=== PATIENT | female | born 1955 | race Caucasian/White ===

== ENCOUNTER 2021-01-30 15:33 | Inpatient (IN) | payer MEDICARE, OTHER, SELFPAY ==
[2021-01-30 15:44] VITALS: BP 171/86; PULSE 79; RESP 16; TEMP 36.9; O2SAT 97; BMI 26.1
--- NOTE | 2021-01-30 16:53 | HP.PCM_ITS ---
Problem List (1) Debility Status: Acute (2) Diabetic foot ulcer Status: Chronic (3) Cellulitis of left foot Status: Acute (4) Osteomyelitis of left foot Status: Acute (5) Diabetes mellitus Status: Chronic (6) Brain tumor (benign) Status: Chronic (7) Chronic diarrhea Status: Chronic (8) Epilepsy Status: Chronic (9) Mitral valve prolapse Status: Chronic (10) Diabetic neuropathy Status: Chronic (11) Osteoarthritis of cervical and lumbar spine Status: Chronic (12) Gastroesophageal reflux disease Status: Chronic (13) Asthma Status: Chronic History of Present Illness Date of Admission: 01/30/21 Chief Complaint: Here for rehabilitation, strengthening, wound care, prior to discharge home with . 01/23/2021 The patient is a 65 year old Female with below past medical history admitted to [place], [place]. Left foot wound, left lower extremity swelling, left foot dorsal ulcer. Cellulitis of left lower extremity with diabetic foot ulcer. IV antibiotics started, WBC 28.7. IV antibiotics for sepsis, cultures pending. Imipenem for diabetic foot ulcer infection. 01/24/2021 Imipenem, add Linezolid for MRSA coverage. Stop tramadol due to risk of serotonin syndrome. 01/25/2021 MRI left foot showed osteomyelitis. 01/26/2021 Podiatry performed left 2nd, 3rd toe amputation. Wound VAC applied. Antibiotics per Infectious Disease. 01/30/2021 Admit to TCU with debility, here for rehabilitation, strengthening, wound care, prior to discharge home with . Past Medical History Past Medical History (Chronic Problems): Chronic Problems Diabetic foot ulcer (Chronic) Diabetes mellitus (Chronic) Brain tumor (benign) (Chronic) Chronic diarrhea (Chronic) Epilepsy (Chronic) Mitral valve prolapse (Chronic) Diabetic neuropathy (Chronic) 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) Gastroesophageal reflux disease (Chronic) Tubal ligation status (Chronic) History of pneumonia (Chronic) Obesity (Chronic) Migraine (Chronic) Disc degeneration (Chronic) Asthma (Chronic) Home Medications: Ambulatory Orders Medication Instructions Recorded Albuterol IH (ProAir) [Proair Hfa 1 puff INHALATION Q4H PRN PRN 01/30/21 (SP)Vent Pts] Budesonide/Formoterol Fumarate 2 puff IH BID 01/30/21 [Budesonide-Formoterol 160-4.5] Ciprofloxacin [Cipro] 500 mg PO BID 01/30/21 Doxycycline 100 mg PO BID 01/30/21 Gabapentin 300 mg PO BID 01/30/21 Gabapentin [Neurontin] 600 mg PO QHS 01/30/21 Guaifenesin [Mucinex] 1,200 mg PO BID 01/30/21 Insulin NPH Human Isophane 100 units SC DAILY 01/30/21 [Humulin N Kwikpen] Lactobacillus Acidophilus 1 each PO DAILY 01/30/21 [Acidophilus] Lansoprazole [Prevacid] 15 mg PO BID 01/30/21 Lansoprazole [Prevacid] 30 mg PO DAILY 01/30/21 Loperamide HCl [Imodium A-D] 6 mg PO TID 01/30/21 Ondansetron HCl [Zofran] 4 mg PO Q6H PRN PRN 01/30/21 Tramadol HCl [Ultram] 50 mg PO Q6H PRN PRN 01/30/21 Surgical History: appendectomy, - - Left 2nd, 3rd toe amputations. 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 Lives: Spouse/ Significant Other Smoking Status: Never smoker Tobacco Use: Non-smoker Alcohol: None Drugs: None - *Family History Maternal History Items: No pertinent history Paternal History Items: No pertinent history Review of Systems Constitutional: Denies: Chills, Fever, Weight Change HEENT: Denies: Head Aches, Sinus Congestion, Sinus Drainage Cardiovascular: Denies: Chest Pain, Palpitations Respiratory: Denies: Cough, Shortness of breath at rest, Sputum production Gastrointestinal: Denies: Abdominal Pain, Nausea, Vomiting Genitourinary: Denies: Dysuria Musculoskeletal: Denies: Joint Pain, Joint Tenderness Skin: Denies: Rash, Wounds Neurological: Denies: Numbness, Tingling, Focal weakness Psychiatric: Denies: Anxiety, Depression, Homicidal Ideations, Suicidal Ideations Hematologic/ Lymphatic: Denies: Easy Bruising, Easy Bleeding VTE Information - Inpt Only VTE Present on Admission: No VTE Mechan Device Prophylaxis: Knee High TAVIA Hose VTE Pharm Prophylaxis ordered?: Yes Patient Problems: Active and Suspected Problems Debility (Acute) Cellulitis of left foot (Acute) Osteomyelitis of left foot (Acute) - Physical Exam Vitals/I&O's: Vital Signs Temp Pulse Resp BP Pulse Ox 98.5 F 79 16 171/86 H 97 04/03/21 15:44 01/30/21 15:44 01/30/21 15:44 01/30/21 15:44 01/30/21 15:44 Oxygen Delivery Method Room Air Weight: 68.946 kg Body Mass Index (BMI) 26.1 General: Alert, Oriented x3, Cooperative HEENT: Atraumatic, PERRLA, EOMI, Normocephalic Neck: Supple, No JVD, Negative Carotid Bruits Lungs: Clear to auscultation, Normal air movement Cardiovascular: Regular rate, No murmurs Abdomen: Bowel Sounds Present, Soft, Non Tender Extremities: No edema, Capillary Refill Less than 3 Seconds, - - Left lower extremity dressed. Skin: No rashes, No breakdown Musculoskeletal: No Tenderness to Palpation of Joints or Extremities Neurological: Cranial nerves II-XII grossly intact Psych/Mental Status: Normal Affect, Appropriate Current Medications Albuterol Sulfate (Albuterol Ih 8.5 Gm (Proair) Inhaler (200 Puffs)) 1 puff INHALATION Q4H PRN PRN PRN Reason: SHORTNESS OF BREATH Calamine/Phenol (Menthol/Lanolin/Calamine/Znox 113 Gm Tube) 1 applic TOPICAL BID [facility]; Protocol Ciprofloxacin HCl (Ciprofloxacin 500 Mg Tablet) 500 mg PO BID [facility] Stop: 02/04/21 18:01 Doxycycline Monohydrate (Doxycycline 100 Mg Capsule) 100 mg PO BID [facility] Stop: 02/13/21 18:01 Gabapentin (Gabapentin 300 Mg Capsule) 300 mg PO BID [facility] Gabapentin (Gabapentin 600 Mg Tablet) 600 mg PO QHS [facility] Guaifenesin (Guaifenesin 600 Mg Tablet) 1,200 mg PO BID [facility] Insulin Human NPH (Insulin Nph Human 100 Units/Ml Pen) 100 units SC DAILY [facility] Non-Formulary Medication (Budesonide/Formoterol Fumarate [Budesonide-Formoterol 160-4.5]) 2 puff IH BID [facility] Non-Formulary Medication (Lansoprazole) 15 mg PO BID [facility] Non-Formulary Medication (Lansoprazole) 30 mg PO DAILY [facility] Non-Formulary Medication (Loperamide Hcl [Imodium A-D]) 6 mg PO TID [facility] Non-Formulary Medication (Ondansetron Hcl [Zofran]) 4 mg PO Q6H PRN PRN PRN Reason: NAUSEA Non-Formulary Medication (Lactobacillus Acidophilus [Acidophilus]) 1 each PO DAILY [facility] Stop: 02/15/21 06:01 Nystatin (Nystatin Powder 15gm Bottle) 1 applic TOPICAL TID [facility]; Protocol Tramadol HCl (Tramadol 50 Mg Tablet) 50 mg PO Q6H PRN PRN PRN Reason: Pain Score 1-10 Tuberculin PPD (Tuberculin,Purif.Prot.Deriv. 50 Tu/Ml Vial) 5 tu ID [id number] ONE Stop: 01/31/21 10:01 Tuberculin PPD (Tuberculin,Purif.Prot.Deriv. 50 Tu/Ml Vial) 5 tu ID X1 ONE Stop: 02/07/21 10:01 Assessment/Plan All Active Problems Debility (Acute) Cellulitis of left foot (Acute) Osteomyelitis of left foot (Acute) 65 year old female with below past medical history hospitalized for left diabetic foot infection, complicated by osteomyelitis requiring left 2nd, 3rd toe amputation 01/16/2021, wound VAC, admitted to TCU with debility, here for rehabilitation, strengthening, prior to discharge home with . * Debility - PT/OT. * Pain - Tylenol 1000MG Q6H PRN pain (1-3), Tramadol 50MG Q6H PRN pain (4-10). * Bowel - Loperamide 6MG TID for chronic diarrhea. * Adult Immunization - Administer Prevnar 13, Pneumovax 23, Fluzone, COVID19 vaccine as appropriate. * DVT prophylaxis - Lovenox 40MG SC daily. * Asthma - Advair 232-14 2 puffs BID, Proair 1 puff Q4H PRN. * Left foot osteomyelitis - Cipro 500MG BID thru 02/04/2021, Doxycycline 100MG BID thru 02/13/2021. * Diabetic neuropathy - Gabapentin 300MG BID, 600MG QHS. * Congestion - Mucinex 1200MG BID. * Diabetes Mellitus II - NPH 100 units daily, monitor blood sugar, add coverage as needed. * GI prophylaxis - Lactobacillus 1 tablet daily. * GERD - Pantoprazole 20MG BID. * Skin irritation - Calmoseptine topical BID. * Tinea Corporis - Nystatin topical TID. * Nausea - Zofran 4MG Q6H PRN.
[2021-01-30 16:55] LABS: Bedside Glucose 111 mg/dL (70-110)
[2021-01-30] MEDS: Menthol/Lanolin/Calamine/Znox 113 GM Tube 1 APPLIC TOPICAL (18:30)
[2021-01-30] MEDS: Ciprofloxacin 500 MG Tablet PO (18:31)
[2021-01-30] MEDS: Fluticasone/Salmeterol 232-14 Inhaler 1 PUFF INHALATION (18:31)
[2021-01-30] MEDS: Doxycycline 100 MG CAPSULE PO (18:31)
[2021-01-30] MEDS: Pantoprazole Sodium 40 MG Tablet PO (18:32)
[2021-01-30] MEDS: guaiFENesin 600 MG Tablet 1200 MG PO (18:32)
[2021-01-30] MEDS: Gabapentin 300 MG Capsule PO (18:32)
[2021-01-30] MEDS: Loperamide 2 MG Capsule 4 MG PO (21:56)
[2021-01-30] MEDS: Gabapentin 600 MG Tablet PO (21:57)
[2021-01-30 22:25] LABS: Bedside Glucose 189 mg/dL (70-110)
[2021-01-30] MEDS: Nystatin Powder 15gm Bottle 1 APPLIC TOPICAL (22:54)
[2021-01-31 05:00] VITALS: BP 157/77; PULSE 67; RESP 12; TEMP 36; O2SAT 98
[2021-01-31 05:53] LABS: Absolute Lymphocyte Count 2.83 X10^3/uL (0.83-4.51); Absolute Neutrophil Count 7.2 X10^3/uL (2.0-7.7); Basophil# 0.06 X10^3/uL; Basophil% 0.5 % (0-1); Eosinophils% 3.5 % (0-5); Hematocrit 29.2 % (37-47); Hemoglobin 9.4 g/dL (12.0-15.0); Lymphocyte # 2.83 X10^3/ul (4.0); Lymphocyte % 24.7 % (19-41); Mean Corp Hgb Conc 32.2 g/dL (32-36); Mean Corpuscular Hgb 30.9 pg (27.0-32.0); Mean Corpuscular Volume 96.1 fL (81-99); NRBC Flagged by Analyzer 0 % (0-5); Neutrophil # 7.23 X10^3/uL (2.7-7.7); Neutrophil % 63.1 % (47-70); Platelet Count 376 K/mm3 (150-450); RBC Distribution Width CV 12.3 % (11.6-14.6); RBC Distribution Width SD 42.6 fl (35.1-43.9); Red Blood Count 3.04 M/mm3 (4.2-5.4); White Blood Count 11.5 K/mm3 (4.4-11.0)
[2021-01-31] MEDS: Loperamide 2 MG Capsule 4 MG PO ×4 (06:20→21:06)
[2021-01-31 06:21] LABS: Anion Gap 3 (5-15); BUN 9 mg/dL (7-18); BUN/Creat Ratio 15.1 RATIO (10-20); Chloride 103 mmol/L (98-107); EST Glomerular Filtration Rate 107 mL/min (>60); Est Glom Filt Rate - Afr Amer 130 mL/min (>60); Glucose 141 mg/dL (74-106); Potassium 4.2 mmol/L (3.5-5.1); Sodium Level 136 mmol/L (136-145)
[2021-01-31] MEDS: Doxycycline 100 MG CAPSULE PO ×2 (06:23→21:06)
[2021-01-31] MEDS: Ciprofloxacin 500 MG Tablet PO ×2 (06:24→17:40)
[2021-01-31] MEDS: Pantoprazole Sodium 40 MG Tablet PO ×2 (06:24→17:41)
[2021-01-31] MEDS: Gabapentin 300 MG Capsule PO ×2 (06:24→17:46)
[2021-01-31] MEDS: Menthol/Lanolin/Calamine/Znox 113 GM Tube 1 APPLIC TOPICAL ×2 (06:25→17:42)
[2021-01-31] MEDS: Nystatin Powder 15gm Bottle 1 APPLIC TOPICAL ×3 (06:25→21:07)
[2021-01-31 06:26] LABS: Bedside Glucose 146 mg/dL (70-110)
[2021-01-31] MEDS: guaiFENesin 600 MG Tablet 1200 MG PO ×2 (06:27→17:40)
[2021-01-31] MEDS: Fluticasone/Salmeterol 232-14 Inhaler 1 PUFF INHALATION ×2 (06:28→17:42)
[2021-01-31 08:51] VITALS: PULSE 68; O2SAT 96
[2021-01-31] MEDS: Tuberculin,Purif.prot.deriv. 50 TU/ML Vial 5 ML ID (09:21)
--- NOTE | 2021-01-31 10:03 | NURSING ---
Nip Wrapper called and stated she tried to put a new order for merlyn in but there was an alert that kept flagging in the system stating there was an interaction with Doxycycline. This nurse called the pharmacist and pharmacist stated that it was ok to prescribe both as long as they are timed a certain way, that the merlyn will bind to the doxycycline and render it useless unless taken at separate times but it was ok for merlyn order. RN updated and order for merlyn put in for foot wound. Pharmacist said she would time the medications accordingly.
[2021-01-31 11:01] LABS: Bedside Glucose 236 mg/dL (70-110)
[2021-01-31 14:48] VITALS: BP 115/61; PULSE 66; RESP 16; TEMP 37; O2SAT 96
[2021-01-31 16:41] LABS: Bedside Glucose 253 mg/dL (70-110)
[2021-01-31] MEDS: Juven (unflavored) Packet 1 PACKET PO (17:39)
[2021-01-31] MEDS: Gabapentin 600 MG Tablet PO (21:06)
[2021-01-31 21:20] LABS: Bedside Glucose 221 mg/dL (70-110)
[2021-02-01 05:00] VITALS: BP 141/61; PULSE 70; RESP 16; TEMP 36.9; O2SAT 97
[2021-02-01] MEDS: Fluticasone/Salmeterol 232-14 Inhaler 1 PUFF INHALATION ×2 (06:23→17:28)
[2021-02-01] MEDS: Loperamide 2 MG Capsule 4 MG PO ×4 (06:23→20:31)
[2021-02-01] MEDS: Pantoprazole Sodium 40 MG Tablet PO ×2 (06:23→17:27)
[2021-02-01] MEDS: Ciprofloxacin 500 MG Tablet PO ×2 (06:23→17:26)
[2021-02-01] MEDS: guaiFENesin 600 MG Tablet 1200 MG PO ×2 (06:23→17:26)
[2021-02-01] MEDS: Doxycycline 100 MG CAPSULE PO (06:23)
[2021-02-01] MEDS: Gabapentin 300 MG Capsule PO ×2 (06:27→17:27)
[2021-02-01] MEDS: Menthol/Lanolin/Calamine/Znox 113 GM Tube 1 APPLIC TOPICAL ×2 (06:28→17:37)
[2021-02-01] MEDS: Nystatin Powder 15gm Bottle 1 APPLIC TOPICAL ×3 (06:28→20:31)
[2021-02-01 06:31] LABS: Bedside Glucose 206 mg/dL (70-110)
[2021-02-01] MEDS: Juven (unflavored) Packet 1 PACKET PO ×2 (08:27→17:25)
[2021-02-01] MEDS: Iron Polysaccharide Complex 150 MG CAPSULE PO (08:27)
[2021-02-01 11:15] LABS: Bedside Glucose 219 mg/dL (70-110)
--- NOTE | 2021-02-01 11:30 | NURSING ---
WANDARN/WOUND NURSE IN TO CHANGE PT DRESSING TO FOOT. SEE NURSING NOTE.
--- NOTE | 2021-02-01 12:24 | NURSING ---
wound photo: left plantar foot
--- NOTE | 2021-02-01 12:25 | NURSING ---
wound photo: left 2nd and 3rd toe amputation site
--- NOTE | 2021-02-01 14:02 | NURSING ---
Wound VAC was removed and placed on hold until foot is assessed by podiatry. tissues not healthy appearing. there is some purulence noted from the ball of the left foot and an areas of fluctuance to the plantar midfoot with moderate redness noted. There is some maceration noted under the left 4th and 5th toes. patient may need repeat MRI to assess for possible abscess to the midfoot. Orders received for Dakins moistened gauze daily to the amputation site until assessed by podiatry. pt denies further needs at this time. see wound photos.
--- NOTE | 2021-02-01 14:12 | NURSING ---
DR Iqbal and Dr Finn notified of consult orders d/t lt foot infection.
[2021-02-01 14:19] VITALS: BP 141/65; PULSE 67; RESP 16; TEMP 36.3; O2SAT 95
--- NOTE | 2021-02-01 16:20 | RAD_ITS ---
STUDY: X-RAY - LEFT FOOT CLINICAL: Female, 65 years old. infection TECHNIQUE: 3 view(s) of the foot. COMPARISON: None. FINDINGS: Normal talus, calcaneus, and tarsal bones. Normal visualized subtalar, talonavicular, calcaneocuboid, tarsal and tarsometatarsal articulations. Amputation third digit metatarsal neck. Amputation second metatarsophalangeal joint. Normal metatarsophalangeal joint of the great toe. Normal tibial and fibular sesamoid bones. Normal interphalangeal joint of the great toe. Normal phalanges of the great toe. Normal second through fifth metatarsophalangeal joints. Normal interphalangeal joints and phalanges of the lesser toes. Severe soft tissue swelling. Possible subcutaneous gas third digit. RAD/Foot min 3 Views IMPRESSION: Severe soft tissue swelling and possible subtle cutaneous gas third digit. This may represent infection. Amputation third and second digits as above. Electronically Signed: Rio Spears MD at 23:20 EDT , Service support ,
--- NOTE | 2021-02-01 16:38 | CHAPLAIN ---
Type of Pastoral Visit _x__ Initial Visit ___ Follow-up Visit ___ On-call Visit ___ General Patient Visit ___ Spiritual Assessment ___ Family Conference ___ Bereavement ___ Rapid Response ___ Code Blue ___ Other (describe below) Pastoral Care Referral From _x__ Patient ___ Family ___ Nurse ___ Physician ___ Envelope Folder ___ Museum Exhibit Technician ___ Other (describe below) Sacrament/Intervention _x__ Active listening ___ Anointing ___ Hoahaoism ___ Bereavement ___ Communion ___ Dang exploration ___ _x__ Life review ___ Prayer ___ Reconciliation ___ Sacrament of Sick _x__ Supportive presence ___ Wedding ___ Other (describe below) Pastoral Comments patient has been known to this senior loan processor for a long time; pt specifically requests spiritual care support and future visits; preliminary visit was an update on current situation of health and emotional concerns; radiology came into room and visit was ended with promise for follow up tomorrow.
--- NOTE | 2021-02-01 16:49 | CASEMGMT ---
Social Work Met with patient for initial assessment. Spoke with patient for about 60 minutes and provided supportive listening to pt's current living/relationship situation. Pt explained openly about her relationship status with current . Pt asked to keep information confidential. SW ensure confidentiality aside from any mandating reporting this worker feels is needed. Pt expressed understanding. Provided emotional and verbal support, validated feelings, on feelings with relationship status. SW assured pt this worker is here to assist in any way, ensure a safe discharge plan, and provide support during stay. Pt very appreciative of time. Assessment was not completed - pt and SW opted to complete the following day. Referral made to Dry Pan Operator to follow up with support as well. Will continue to follow. DEBBI CalvinW
[2021-02-01 16:50] LABS: Bedside Glucose 178 mg/dL (70-110)
--- NOTE | 2021-02-01 17:22 | CON.PCM_ITS ---
Problem List (1) Abscess of left foot Status: Acute (2) Type 2 diabetes mellitus with diabetic polyneuropathy Status: Chronic (3) Osteomyelitis of left foot Status: Suspected Reason for Consult Date of Consultation: 02/01/21 Reason for Consultation: left foot infection History of Present Illness: The patient is a 65 year old F with multiple comorbidities was seen bedside this evening for a left foot wound with infection. She had a prior second toe amputation and third ray resection performed at [facility] in [place] on 01-26-2021 by another physician. She had a wound VAC placed and was next transferred to the transitional care unit here for rehabilitation and wound care prior to discharge home with her . She relates she noticed rapid swelling within the past day and it is not clear on the exact onset due to her neuropathy. She denies pain. She denies fever or chills. She does have loss of appetite and nausea. She denies foot odor. She had a wound VAC recently removed with infectious drainage. It is noted that she was previously on imipenem and linezolid while at the previous hospital and then was transitioned to doxycycline and ciprofloxacin at discharge. She was seen by infectious disease at the other facility. Past Medical History Past Medical History (Chronic Problems): Chronic Problems Diabetic foot ulcer (Chronic) Diabetes mellitus (Chronic) Brain tumor (benign) (Chronic) Chronic diarrhea (Chronic) Epilepsy (Chronic) Mitral valve prolapse (Chronic) Diabetic neuropathy (Chronic) 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) Gastroesophageal reflux disease (Chronic) Type 2 diabetes mellitus with diabetic polyneuropathy (Chronic) Tubal ligation status (Chronic) History of pneumonia (Chronic) Obesity (Chronic) Migraine (Chronic) Disc degeneration (Chronic) Asthma (Chronic) Allergies cefprozil Allergy (Verified 01/30/21 16:55) Shortness of breath ceftriaxone Allergy (Verified 01/30/21 16:55) Hives clindamycin Allergy (Verified 01/30/21 16:55) Rash enalapril Allergy (Verified 01/30/21 16:55) Other enoxaparin Allergy (Verified 01/30/21 16:55) Rash heparin Allergy (Verified 01/30/21 16:55) Rash levalbuterol Allergy (Verified 01/30/21 16:55) Other morphine Allergy (Verified 01/30/21 16:55) Shortness of breath Penicillins Allergy (Verified 01/30/21 16:55) Anaphylaxis shellfish derived Allergy (Verified 01/30/21 16:55) Anaphylaxis valsartan Allergy (Verified 01/30/21 16:55) Other vancomycin Allergy (Verified 01/30/21 16:55) Rash Home Medications: Ambulatory Orders Medication Instructions Recorded Albuterol IH (ProAir) [Proair Hfa 1 puff INHALATION Q4H PRN PRN 01/30/21 (SP)Vent Pts] Budesonide/Formoterol Fumarate 2 puff IH BID 01/30/21 [Budesonide-Formoterol 160-4.5] Ciprofloxacin [Cipro] 500 mg PO BID 01/30/21 Doxycycline 100 mg PO BID 01/30/21 Gabapentin 300 mg PO BID 01/30/21 Gabapentin [Neurontin] 600 mg PO QHS 01/30/21 Guaifenesin [Mucinex] 1,200 mg PO BID 01/30/21 Insulin NPH Human Isophane 100 units SC DAILY 01/30/21 [Humulin N Kwikpen] Lactobacillus Acidophilus 1 each PO DAILY 01/30/21 [Acidophilus] Lansoprazole [Prevacid] 15 mg PO BID 01/30/21 Lansoprazole [Prevacid] 30 mg PO DAILY 01/30/21 Loperamide HCl [Imodium A-D] 6 mg PO TID 01/30/21 Ondansetron HCl [Zofran] 4 mg PO Q6H PRN PRN 01/30/21 Tramadol HCl [Ultram] 50 mg PO Q6H PRN PRN 01/30/21 Surgical History: appendectomy, - - Left 2nd, 3rd toe amputations. Psychiatric History: No pertinent psych hx [employer]IST History: No pertinent [employer] SPECIALIST history Lives: Spouse/ Significant Other Smoking Status: Never smoker Tobacco Use: Non-smoker Alcohol: None Drugs: None - *Family History Maternal History Items: No pertinent history Paternal History Items: No pertinent history Review of Systems Constitutional: Reports: Fatigue. Denies: Chills, Fever Cardiovascular: Reports: Edema Respiratory: Denies: Shortness of Breath Gastrointestinal: Reports: Nausea, - - Loss of appetite. Denies: Vomiting Genitourinary: Denies: Dysuria Musculoskeletal: Reports: Leg Pain. Denies: Foot Pain Skin: Reports: Skin Changes, Wounds Neurological: Reports: Incoordination, Numbness Hematologic/ Lymphatic: Denies: Easy Bruising, Easy Bleeding Patient Problems: Active and Suspected Problems Debility (Acute) Cellulitis of left foot (Acute) Osteomyelitis of left foot (Suspected) Abscess of left foot (Acute) - Physical Exam Vitals/I&O's: Vital Signs Temp Pulse Resp BP Pulse Ox 97.3 F L 67 16 141/65 H 95 02/01/21 14:19 02/01/21 14:19 02/01/21 14:19 02/01/21 14:19 02/01/21 14:19 Oxygen Delivery Method Room Air Weight: 68.946 kg Body Mass Index (BMI) 26.1 Intake and Output for Last 24 Hours 01/30/21 01/31/21 02/01/21 23:59 23:59 23:59 Intake Total 320 / 320 720 / 720 390 / 390 Balance 320 / 320 720 / 720 390 / 390 General: Alert, Oriented x3, Cooperative HEENT: Atraumatic Extremities: No cyanosis, Capillary Refill Less than 3 Seconds, No Calf Tenderness, Diminished Peripheral Pulses, Edema Skin: Ulcer/ Wound - Open second toe and third ray resection with fibrous devitalized ulcer base. Fluctuant palpable abscess to plantar midfoot upon drainage there is 6 cc of purulence. No additional purulence expressed along palpation of the flexor tendons or posterior leg. Erythema extend to plantar mid to forefoot, - - There sub sulcus fibrous granular ulcers also. Her skin is atrophic and hairless. Musculoskeletal: Muscle Wasting, - - Negative Faith and Mchugh sign left. Locations left forefoot Neurological: - - Lack of epicritic sensation is consistent with neuropathic status Psych/Mental Status: Normal Affect, Appropriate Laboratory Results 01/31/21 21:13: POC Glucose 221 H 02/01/21 06:21: POC Glucose 206 H 02/01/21 10:49: POC Glucose 219 H 02/01/21 16:40: POC Glucose 178 H Current Medications Acetaminophen (Acetaminophen 500 Mg Tablet) 1,000 mg PO Q6H PRN PRN Reason: Pain Score 1-3 Albuterol Sulfate (Albuterol Sulfate 8 Gm Inhaler (60 Puffs)) 1 puff INHALATION Q4H PRN PRN PRN Reason: SHORTNESS OF BREATH Calamine/Phenol (Menthol/Lanolin/Calamine/Znox 113 Gm Tube) 1 applic TOPICAL BID [facility]; Protocol Last Admin: 02/01/21 06:28 Dose: 1 applic Documented by: Ciprofloxacin HCl (Ciprofloxacin 500 Mg Tablet) 500 mg PO BID [facility] Stop: 02/04/21 18:01 Last Admin: 02/01/21 06:23 Dose: 500 mg Documented by: Doxycycline Monohydrate (Doxycycline 100 Mg Capsule) 100 mg PO 0600,2200 [facility] Stop: 02/13/21 23:55 Last Admin: 02/01/21 06:23 Dose: 100 mg Documented by: Gabapentin (Gabapentin 300 Mg Capsule) 300 mg PO BID [facility] Last Admin: 02/01/21 06:27 Dose: 300 mg Documented by: Gabapentin (Gabapentin 600 Mg Tablet) 600 mg PO QHS [facility] Last Admin: 01/31/21 21:06 Dose: 600 mg Documented by: Guaifenesin (Guaifenesin 600 Mg Tablet) 1,200 mg PO BID [facility] Last Admin: 02/01/21 06:23 Dose: 1,200 mg Documented by: Insulin Human NPH (Insulin Nph Human 100 Units/Ml Pen) 100 units SC DAILYCM PRN PRN Reason: DAILY BLOOD GLUCOSE >300 L-Arginine/L-Glutamine/Calcium HMB ([facility] (Unflavored) [facility]) [facility] Last Admin: 02/01/21 08:27 Dose: 1 packet Documented by: Lactobacillus Acidophilus (Lactobacillus Acidophilus) 1 tablet PO DAILY [facility] Last Admin: 02/01/21 06:24 Dose: 1 tablet Documented by: Loperamide HCl (Loperamide 2 Mg Capsule) 4 mg PO 4X/DAY [facility] Last Admin: 02/01/21 11:46 Dose: 4 mg Documented by: Nystatin (Nystatin Powder 15gm Bottle) 1 applic TOPICAL TID [facility]; Protocol Last Admin: 02/01/21 13:24 Dose: 1 applic Documented by: Ondansetron HCl (Ondansetron Odt 4 Mg Tablet) 4 mg PO Q6H PRN PRN PRN Reason: NAUSEA Pantoprazole Sodium (Pantoprazole Sodium 40 Mg Tablet) 40 mg PO BID [facility] Last Admin: 02/01/21 06:23 Dose: 40 mg Documented by: Polysaccharide Iron Complex (Iron Polysaccharide Complex 150 Mg Capsule) [facility] Last Admin: 02/01/21 08:27 Dose: 150 mg Documented by: Fluticasone/Salmeterol (Fluticasone/Salmeterol 232-14 Inhaler) 1 puff INHALATION Q12 [facility] Last Admin: 02/01/21 06:23 Dose: 1 applic Documented by: Sodium Hypochlorite (Dakin's Ritika Half Strength (=0.25%)) 1 applic TOPICAL DAILY [facility]; Protocol Tramadol HCl (Tramadol 50 Mg Tablet) 50 mg PO Q6H PRN PRN PRN Reason: Pain Score 4-10 Tuberculin PPD (Tuberculin,Purif.Prot.Deriv. 50 Tu/Ml Vial) 5 tu ID [id number] ONE Stop: 02/07/21 10:01 Assessment/Plan All Active Problems Debility (Acute) Cellulitis of left foot (Acute) Abscess of left foot (Acute) Left midfoot abscess Left status post second toe and third ray resection with infection Diabetes with neuropathy Suspect peripheral vascular disease Other comorbidities: Epilepsy, history of brain tumor, GERD I reviewed and discussed her case. She does have leukocytosis with elevated white blood cell count of 11.5. She has elevated ESR 46. She remains afebrile with vital signs stable. Foot x-rays were reviewed (AP, lateral, oblique) per no acute fracture dislocation. She had prior second toe amputation and third ray resection. There is no additional new soft tissue emphysema or osseous destruction. Edema is noted. Also her small vessels appear to be calcified. Ankle x-rays were ordered and pending. She has a palpable abscess to the plantar midfoot and verbal consent was obtained for bedside drainage. I recommend this to immediately decompress this infection area. Alcohol preparation was performed and a 15 blade scalpel was used to make an incision (2.5 cm) to the plantar midfoot in which approximately 8 cc of purulent drainage was expressed. There was no odor. Deep wound cultures was obtained and sent for aerobic, anaerobic, MRSA PCR. Pressure was applied to maintain hemostasis. No pulsatile bleeding was noted. This area was packed with Betadine wet-to-dry gauze as was the open amputation site. She tolerated this very well and denies pain due to her neuropathy status. It is noted she is on doxycycline and ciprofloxacin. I have requested her medical files from [facility] including prior imaging studies, surgical intervention, microbiology, pathology, and care plans. It is noted she was previously on imipenem and linezolid. I recommend resuming IV broad-spectrum antibiotics until additional intraoperative culture results are obtained and infection improvement is noted. I recommend operating room additional drainage, debridement including potential additional foot amputation pending operating room availability. Ordered MRI to confirm osteomyelitis or additional abscess in the hindfoot level. This is a limb and life threatening infection. I recommend operating room intervention. The indications, benefits, risk, complications, anticipated management were reviewed. She understands this may be a staged procedure. The tentative plan includes additional incision and drainage of the foot and possible ankle/leg with open amputation of the foot. Surgical consents will be signed. Orders will be placed for her to be n.p.o. at midnight, and anticoagulation medication held. She had a Covid negative test upon arrival two days ago and this is noted. I answered her questions. Noninvasive vascular studies are also of interest however will not be able to be completed due to the purulent status of her forefoot. This will be obtained postoperative prior to any future staged procedures. This case was discussed with admitting physician, Dr. Ivy in regards to her recommended surgical intervention and current stability. Additional preoperative EKG was also ordered. Thank you for the consultation. Please not hesitate to call with any questions. Stacie Finn DPM, [facility] [phone]
[2021-02-01] MEDS: traMADol 50 MG Tablet PO (17:33)
[2021-02-01] MEDS: Ondansetron ODT 4 MG Tablet PO (17:33)
--- NOTE | 2021-02-01 18:07 | EKG12_ITS ---
Test Reason : SYNCOPE Blood Pressure : / mmHG Vent. Rate : 085 BPM Atrial Rate : 085 BPM P-R Int : 160 ms QRS Dur : 090 ms QT Int : 390 ms P-R-T Axes : 044 -09 062 degrees QTc Int : 464 ms Normal sinus rhythm Normal ECG Confirmed by SAMMY BERRIOS, YOMI ([id number]), newspaper editor managing GEE YEBOAH ([id number]) on 02/11/2021 11:37:55 AM Referred By: Stacie Finn Confirmed By:YOMI CHRISTIANSON MD
--- NOTE | 2021-02-01 18:09 | NURSING ---
Dr Finn here to see pt, new orders for MRI of LT ankle and foot. DC'd zeke and jess, new order for zyvox and merrem.
--- NOTE | 2021-02-01 19:31 | RAD_ITS ---
STUDY: X-RAY - LEFT ANKLE REASON FOR EXAM: Female, 65 years old. infection TECHNIQUE: 3 view(s) of the ankle. COMPARISON: None. FINDINGS: Diffuse osteoporosis otherwise normal visualized distal tibia and fibula. Normal medial and lateral malleoli. Normal tibiotalar articulation and ankle mortise. Plantar calcaneal spur otherwise unremarkable visualized talus and calcaneus. The visualized subtalar, talonavicular, calcaneocuboid and tarsal articulations are normal. There is no demonstrated fracture. There are atherosclerotic calcifications. RAD/Ankle min 3 Views IMPRESSION: Diffuse osteoporosis with no acute fracture or subluxation. Electronically Signed: Natividad Vo MD at 0:43 EDT , Service support ,
--- NOTE | 2021-02-01 19:45 | NURSING ---
Returned to TCU from MRI per two staff assist. Positioned in bed for comfort. Call light w/ in reach.
[2021-02-01] MEDS: Gabapentin 600 MG Tablet PO (20:31)
[2021-02-01] MEDS: 0.9% Normal Saline 250 ML IV.SOLN. IV (21:04)
[2021-02-01 21:16] LABS: Bedside Glucose 199 mg/dL (70-110)
[2021-02-02] MEDS: 0.9 % NaCl (Sterile) Posiflush 10 mL IV (01:18)
[2021-02-02] MEDS: Linezolid 600 MG 600 MG/300 ML BAG 200 MG IV ×3 (01:19→20:12)
--- NOTE | 2021-02-02 04:02 | NURSING ---
PT NPO after 1230 am, per order for surgery. anticoagulant meds held. time still TBD. Pt pleasant, denies any pain or discomfort.
[2021-02-02 05:00] VITALS: BP 143/72; PULSE 64; RESP 18; TEMP 36.6; O2SAT 98
[2021-02-02 06:02] LABS: Hemoglobin 9.3 g/dL (12.0-15.0)
[2021-02-02] MEDS: Albuterol Sulfate 8 gm Inhaler (60 puffs) 1 PUFF INHALATION (06:06)
[2021-02-02] MEDS: guaiFENesin 600 MG Tablet 1200 MG PO ×2 (06:06→17:43)
[2021-02-02] MEDS: Fluticasone/Salmeterol 232-14 Inhaler 1 PUFF INHALATION ×2 (06:06→17:45)
[2021-02-02] MEDS: Loperamide 2 MG Capsule 4 MG PO ×3 (06:06→20:11)
[2021-02-02] MEDS: Menthol/Lanolin/Calamine/Znox 113 GM Tube 1 APPLIC TOPICAL ×2 (06:07→17:52)
[2021-02-02] MEDS: Nystatin Powder 15gm Bottle 1 APPLIC TOPICAL ×2 (06:07→20:12)
[2021-02-02] MEDS: Gabapentin 300 MG Capsule PO ×2 (06:07→17:44)
[2021-02-02] MEDS: Pantoprazole Sodium 40 MG Tablet PO ×2 (06:08→17:44)
[2021-02-02 07:11] LABS: Bedside Glucose 192 mg/dL (70-110)
--- NOTE | 2021-02-02 07:17 | NURSING ---
Pt scheduled for surgery today at [address] Finn.
--- NOTE | 2021-02-02 09:51 | CASEMGMT ---
Social Work Pt contacted SW to complete HCPOA prior to surgery this date. Completed HCPOA and named Jackie Silverman, sister, as HCPOA. Copies placed on chart. Philly Ace MSW MANAGER HVAC
--- NOTE | 2021-02-02 10:10 | NURSING ---
Notified pharmacy that Zyvox antibiotic bag would not scan for 1000 administration, stating the med had been d/c'd. Esthela in pharmacy said to override the MAR and administer the medication as it is still a current order.
[2021-02-02 10:15] VITALS: PULSE 76; RESP 18; O2SAT 98
[2021-02-02 10:38] LABS: M R Staph aureus DNA By PCR Negative (Negative); Probe Check PASS; Specimen Processing Control PASS; Staph aureus DNA By PCR POSITIVE (Negative)
[2021-02-02 10:41] LABS: Bedside Glucose 178 mg/dL (70-110)
--- NOTE | 2021-02-02 10:52 | NURSING ---
PT LEFT FLOOR BY BED FOR SURGERY AT 10:45 AM.
[2021-02-02 11:40] LABS: Bedside Glucose 197 mg/dL (70-110)
--- NOTE | 2021-02-02 13:40 | OP.PCM_ITS ---
Problem List (1) Abscess of left foot Status: Acute (2) Type 2 diabetes mellitus with diabetic polyneuropathy Status: Chronic (3) Osteomyelitis of left foot Status: Suspected Report of Operation Date of Procedure: 02/02/21 Pre-Operative Diagnosis: Left foot infection with abscess infectious myositis Post-Operative Diagnosis: Left foot infection with abscess infectious myositis Surgery/Procedure Performed:: Debridement of nonviable soft tissue and bone including open 2, 3, 4, 5 ray resection left foot. Incision and drainage dorsal foot and plantar arch extending into the hindfoot Description of Surgical Findings:: Hemostasis: Well-padded pneumatic mid left leg tourniquet, 250 mmHg, 40 minutes Materials: 2-0 Vicryl Specimens sent and results pending Postoperative x-rays were reviewed prior to leaving the operating room as noted Complications none The patient tolerated the procedure and anesthesia well. She was transported to the PACU with vital signs stable and vascular status intact to the left lower extremity as compared to the preoperative status. She will be transferred back to the transitional care unit upon continued stability. She was advised to ice and elevate for pain and inflammation management. To keep the dressing clean, dry, and intact. To continue on IV antibiotics. Pain medications were ordered. I will continue to follow her closely while in house. 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 Commercial Loan Collection Officer: Tash Lawson DPM, PGY3 Type of Anesthesia:: Local - post operative: 20 cc of one-to-one mixture of 1% lidocaine plain and 0.5% Marcaine plain administered in typical left ankle block fashion, MAC Specimen's removed: 1. Infected left foot tissue sent to pathology. 2. Infected left foot tissue sent to microbiology (aerobic, anaerobic, acid-fast, fungal). 3. Metatarsal clearance fragment sent to pathology. 4. Metatarsal clearance fragment sent to microbiology (aerobic, anaerobic, acid-fast, fungal) Estimated Blood Loss (mL): < 200 mL Description of Procedure: Indications: This 65-year-old female with significant past medical history of diabetes with neuropathy, epilepsy, mitral valve prolapse, obesity, migraines, reported history of C. difficile, prior history of substance abuse, and asthma was seen for left foot infection in the transitional care unit. She had prior open second toe amputation with third ray resection at [facility] with subsequent wound care with vac therapy. She was recently transition to [facility] transitional care unit for wound care and rehabilitation prior to return home with . She had developed increased pain, redness, and swelling to the left foot in which a lower limb infection was identified. She had copious amounts of purulent drainage expressed during initial evaluation coming from both the open amputation site and also the plantar central midfoot. Her white blood cell count is slightly elevated to 11.5. It is noted she had sepsis while at [facility] with a white blood cell count of over 27. She remains nonseptic at this time. Nonweightbearing foot and ankle x-rays did not demonstrate any osseous destruction, soft tissue emphysema, or acute fractures or dislocations. MRIs of the foot and ankle were reviewed including the reports and individual imaging series. She did not demonstrate distinct residual osteomyelitis however there is increased signal intensity in all of the intrinsic muscles of dorsal and plantar midfoot and forefoot consistent with infectious myositis. There is also an area previously drained abscess noted in the plantar central midfoot from her initial consultation performed yesterday. No evidence of Charcot. There was no distinct osteomyelitis identified via MRI except questionably at the resected third metatarsal distalmost aspect with decreased intensity on the T1 corresponding with increased intensity on the T2. Per my additional interpretation there is fluid collection around the flexor tendons at the retromalleoli ankle level and does not appear to be in direct track with the foot infection component. The plan was to investigate this intraoperative. Preoperative indications, planned procedure, possible benefits, risk, complications, and anticipated healing time and management were reviewed and discussed with the patient. She understands elects to proceed with surgery at this time. No guarantees were made. She understands risk and complications include but not limited to the following: Pain, swelling, scarring, need for further surgery, continued infection, delayed or nonhealing, blood clot, allergic reaction, limb contracture, chronic pain, need for long-term bracing or prosthetic, loss of limb, function, or life. She also understands this procedu re is being conducted during the time of COVID-19 pandemic and there is an inherent risk with being in the hospital. She understands precautions will be taken to avoid exposure and the benefits outweigh the risks at this time. I recommend proceeding forward with surgical intervention in a timely manner. This is a nonelective limb salvage surgery. I answered all her questions. Surgical consent and limb were signed. Procedure in detail: The patient was transported to the operating room via cart and placed on the operating table in the supine position. Final verification of the patient, s urgery, limb designation was performed via the timeout procedure. IV antibiotics have already been administered and she is receiving these on the transitional care unit. She is currently taking meropenem and linezolid. MAC anesthesia was initiated by the anesthesia team. A well-padded pneumatic mid left leg tourniquet was placed. The left lower extremity was prepped and draped in the usual aseptic manner. [place] exsanguination was performed the tourniquet was inflated at this time. Surgery began the following manner: Attention was first directed to the purulent open amputation site in which a fishmouth incision was made proximal to that site and around the remaining lateral forefoot. Care was taken to identify, protect, and retract all neurovascular structures of salvage at this point and throughout the remainder of surgery. Copious amounts of purulence was noted with devitalized tendons and intrinsic musculature to a non salvageable level. The digits were disarticulated at the lesser metatarsophalangeal joint levels and was removed from the table and sent to pathology. Additional incision was made dorsally tracking along the site of infectious drainage. A plantar incision was also made along the arch and flexor tendons in which at least 10 cc of additional purulent drainage was expressed from the midfoot and in the superficial fascial layer. This was carefully dissected down to the deeper muscular layer in which additional purulence was found. Any devitalized musculature, adipose tissue and tendon sheaths were debrided with rongeur. This was also sent to microbiology. At this time, proximal purulence tracking was evaluated for with a freer elevator and with expression from proximal muscle groups in which additional purulence was not identified. Copious saline irrigation was performed. Sagittal saw use to resect 2, 3, 4, fifth rays. Copious saline irrigation was again performed at this time and a clean sagittal saw was used to obtain a clearance fragment from the central metatarsal. This was sent to microbiology and also pathology. Finally, Versajet on setting 8 was used to debride any remaining devitalized tissue from the open amputation site to healthy bleeding level, and copious irrigation with normal saline was performed again. Electrocauterization on visible calcified vessels was performed. The tourniquet was deflated at this time and refill time was noted to the digits and was consistent with her preoperative status. Plantar metatarsal arteries at the midfoot level where tied off utilizing Vicryl suture. Pressure was applied and no pulsatile bleeding was noted at this point. The remaining tissue did not have any additional purulence, necrosis, or odor. The postoperative local anesthetic was administered at the ankle level proximal to the infection zone at this time. The first ray including the hallux was left temporarily intact. This is a planned staged procedure. After the infection drains and salvageable tissue is demarcated, full versus partial closure of transmetatarsal amputation is planned in which soft tissue and skin from the first ray may be used to cover some of the lateral exposed structures in a flaplike manner. Gelfoam was placed over the plantar midfoot and additional Betadine wet-to-dry gauze were packed. Additional Kerlix, abdominal pad, gauze, and Demetrio wrap were applied in a layered manner for the dressing. After procedure: The patient tolerated the procedure and anesthesia well. She was transported to the PACU with vital signs stable and vascular status intact to the left lower extremity. To ice and elevate for pain and inflammation management. Pain medications were ordered. It is noted she has tolerated Percocet in the past. Tramadol will not be provided at this time while she is taking linezolid to avoid serotonin syndrome. She was advised to maintain a strict nonweightbearing status to left lower extremity. To keep her dressing clean, dry, and intact. Postoperative x-rays were taken prior to leaving the operating room with adequate resection of the infected tissue without acute injuries, soft tissue emphysema, or foreign body. Lateral beveled ray resections of 2,3,4 and 5 is noted. Staged procedure after initial infection is considered controlled is planned. To continue on IV antibiotics including meropenem and linezolid. Infectious diseases on consult and appreciated. Her noninvasive vascular studies from [facility] were reviewed from 01-29-2021 in which nonocclusive vessels were identified with calcification noted. Arterial insufficiency was not suspected based off of PVR and doppler findings. Her toe brachial index was not calculated due to patient movement. Her medical records from [facility] have been reviewed in paper format. Medical management and DVT prophylaxis per transitional care unit physician, Dr. Ivy is appreciated. Lab trends will be monitored for infection and postoperative stability. She will be transferred back to the transitional care unit upon continued stability. Postoperative orders were entered. I will follow her closely while in transitional care unit. Stacie Finn DPM, [facility] [place] [phone] Grafts/Implants Used: none - Complications none - Admit VTE Documentation VTE Present on Admission: Yes VTE Mechan Device Prophylaxis: SCD's VTE Pharm Prophylaxis ordered?: Yes
--- NOTE | 2021-02-02 14:01 | CON.PCM_ITS ---
Problem List (1) Osteomyelitis of left foot Status: Suspected Reason for Consult: foot infection Consulted by: Dr. Ivy History of Present Illness: The patient is a 65 year old F with DM, admitted to [facility] on 01/23 with acute onset L foot pain, redness, swelling. No inciting event. Seen by ID and podiatry, started on linezolid and imipenem, MRI done, taken to OR 01/[address] Chester for amputation of 2nd and 3rd toes and partial resection metatarsal head. Wound cx and surgical cx with mssa. Dx with UTI with esbl klebs. Discharged to [facility] on 2 weeks po doxy and short course po cipro. Had worsening foot pain, redness, drainage, and swelling. Seen by Dr. Finn with podiatry. Abx changed to linezolid/meropenem, MRI done, taken to OR this afternoon by podiatry for debridement. Feeling ok in PACU. No fever. Full ROS performed and neg except as noted above. - Medical History Past Medical History (Chronic Problems): Chronic Problems Diabetic foot ulcer (Chronic) Diabetes mellitus (Chronic) Brain tumor (benign) (Chronic) Chronic diarrhea (Chronic) Epilepsy (Chronic) Mitral valve prolapse (Chronic) Diabetic neuropathy (Chronic) 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) Gastroesophageal reflux disease (Chronic) Type 2 diabetes mellitus with diabetic polyneuropathy (Chronic) Tubal ligation status (Chronic) History of pneumonia (Chronic) Obesity (Chronic) Migraine (Chronic) Disc degeneration (Chronic) Asthma (Chronic) Allergies/Adverse Reactions: Allergies cefprozil Allergy (Verified 02/02/21 11:23) Shortness of breath ceftriaxone Allergy (Verified 02/02/21 11:23) Hives clindamycin Allergy (Verified 02/02/21 11:23) Rash enalapril Allergy (Verified 02/02/21 11:23) Other enoxaparin Allergy (Verified 02/02/21 11:23) Rash heparin Allergy (Verified 02/02/21 11:23) Rash levalbuterol Allergy (Verified 02/02/21 11:23) Other morphine Allergy (Verified 02/02/21 11:23) Shortness of breath Penicillins Allergy (Verified 02/02/21 11:23) Anaphylaxis shellfish derived Allergy (Verified 02/02/21 11:23) Anaphylaxis valsartan Allergy (Verified 02/02/21 11:23) Other vancomycin Allergy (Verified 02/02/21 11:23) Rash Home Medications: Ambulatory Orders Medication Instructions Recorded Albuterol IH (ProAir) [Proair Hfa 1 puff INHALATION Q4H PRN PRN 01/30/21 (SP)Vent Pts] Budesonide/Formoterol Fumarate 2 puff IH BID 01/30/21 [Budesonide-Formoterol 160-4.5] Ciprofloxacin [Cipro] 500 mg PO BID 01/30/21 Doxycycline 100 mg PO BID 01/30/21 Gabapentin 300 mg PO BID 01/30/21 Gabapentin [Neurontin] 600 mg PO QHS 01/30/21 Guaifenesin [Mucinex] 1,200 mg PO BID 01/30/21 Insulin NPH Human Isophane 100 units SC DAILY 01/30/21 [Humulin N Kwikpen] Lactobacillus Acidophilus 1 each PO DAILY 01/30/21 [Acidophilus] Lansoprazole [Prevacid] 15 mg PO BID 01/30/21 Lansoprazole [Prevacid] 30 mg PO BID 01/30/21 Loperamide HCl [Imodium A-D] 6 mg PO TID 01/30/21 Ondansetron HCl [Zofran] 4 mg PO Q6H PRN PRN 01/30/21 Tramadol HCl [Ultram] 50 mg PO Q6H PRN PRN 01/30/21 - Social History Tobacco Use: non-smoker Vital Signs Temp Pulse Resp BP Pulse Ox 97.8 F 64 18 143/72 H 98 02/02/21 05:00 02/02/21 05:00 02/02/21 05:00 02/02/21 05:00 02/02/21 05:00 Oxygen Delivery Method Room Air Weight: 68.946 kg Body Mass Index (BMI) 26.1 Microbiology Past 72 Hours 02/01/21 19:43 Gram Stain - Final Wound Abcess - Aerobic & Anaerobic Swabs Laboratory Tests Past 24 Hrs 02/01/21 02/02/21 19:43 05:40 Hgb 9.3 L Hct 30.0 L S.aureus Protein A PCR POSITIVE H MRSA (PCR) Negative - Other Studies Radiology: [] reviewed Other Studies: [] Route of nutrition/ use of supplements: [] Nutritional Intake: [] IV Site: [] Nguyen Catheter: [] - Physical Exam General: Alert, Oriented x3, Cooperative, No apparent distress HEENT: Atraumatic, PERRLA, EOMI Neck: Supple, No Nodes Lungs: Clear to auscultation, Normal air movement Cardiovascular: Regular rate, Regular Rhythm Abdomen: Soft, Non Tender, Non-Distended Extremities: No edema Skin: Ulcer/ Wound - foot wrapped s/p OR IV Site: Peripheral, without redness Musculoskeletal: No Tenderness to Palpation of Joints or Extremities Neurological: Cranial nerves II-XII grossly intact - Assessment/Plan Antibiotics: [] Assessment/Plan: [] Active and Suspected Problems Debility (Acute) Cellulitis of left foot (Acute) Osteomyelitis of left foot (Suspected) Abscess of left foot (Acute) MSSA L foot osteo - had 2nd and 3rd toe amputation and partial metatarsal resection at [facility] 01/26/21. Discharged here on po doxy for mssa and po cipro for esbl klebs uti. Reviewed [facility] records, micro, imaging, op note, ID consult, discharge summary. Now with worsening purulence and inflammation of L foot. MRI did not show any residual osteo. Abx changed back to linezolid/meropenem, now s/p OR with Dr. Finn today 02/02/21. Cont abx, will follow results. Will follow, thank you
[2021-02-02 14:25] LABS: Bedside Glucose 150 mg/dL (70-110)
--- NOTE | 2021-02-02 15:42 | NURSING ---
PT RETURNED TO FLOOR BY BED FROM SURGERY AT 1530.
--- NOTE | 2021-02-02 15:56 | NURSING ---
Family updated on status after surgery.
--- NOTE | 2021-02-02 15:57 | NURSING ---
Faxed requested information from Dr. Finn to [facility].
[2021-02-02 16:41] LABS: Bedside Glucose 183 mg/dL (70-110)
--- NOTE | 2021-02-02 17:16 | CHAPLAIN ---
Type of Pastoral Visit ___ Initial Visit _x__ Follow-up Visit ___ On-call Visit ___ General Patient Visit ___ Spiritual Assessment ___ Family Conference ___ Bereavement ___ Rapid Response ___ Code Blue ___ Other (describe below) Pastoral Care Referral From _x__ Patient ___ Family ___ Nurse ___ Physician ___ Compensation And Benefits Administrator ___ Asbestos Abatement Technician ___ Other (describe below) Sacrament/Intervention _x__ Active listening ___ Anointing ___ Confucianism ___ Bereavement ___ Communion _x__ Dang exploration ___ _x__ Life review _x__ Prayer ___ Reconciliation ___ Sacrament of Sick _x__ Supportive presence ___ Wedding ___ Other (describe below) Pastoral Comments patient has returned from surgery where more done to her foot than she had expected or hoped; pt dealing with physical illness on top of family problems which she talked about at length; pt seeking spiritual support; pt wants future visits; prayer and presence given
[2021-02-02] MEDS: Juven (unflavored) Packet 1 PACKET PO (17:42)
[2021-02-02 17:56] VITALS: BP 134/84; PULSE 69; RESP 18; TEMP 36.5; O2SAT 96
[2021-02-02] MEDS: Gabapentin 600 MG Tablet PO (20:13)
[2021-02-02 20:57] LABS: Hematocrit 29.7 % (37-47); Hemoglobin 9.4 g/dL (12.0-15.0)
[2021-02-02 21:26] LABS: Bedside Glucose 278 mg/dL (70-110)
[2021-02-02 21:56] VITALS: BP 121/63; PULSE 73; RESP 18; TEMP 36.7; O2SAT 98
[2021-02-02] MEDS: HYDROcodone Bitartrate/Apap 5/325 Tablet PO (23:46)
[2021-02-02] MEDS: Ondansetron ODT 4 MG Tablet PO (23:46)
[2021-02-03] VITALS (10 sets, daily range): BP systolic 103–134; BP diastolic 48–91; PULSE 65–84; RESP 14–18; TEMP 36.2–37.1; O2SAT 95–99
[2021-02-03 05:34] LABS: Absolute Lymphocyte Count 3.49 X10^3/uL (0.83-4.51); Absolute Neutrophil Count 9.2 X10^3/uL (2.0-7.7); Basophil# 0.08 X10^3/uL; Basophil% 0.6 % (0-1); Eosinophil# 0.25 X10^3/uL; Eosinophils% 1.8 % (0-5); Hematocrit 28.7 % (37-47); Hemoglobin 8.8 g/dL (12.0-15.0); Lymphocyte # 3.49 X10^3/ul (4.0); Lymphocyte % 24.7 % (19-41); Mean Corp Hgb Conc 30.7 g/dL (32-36); Mean Platelet Vol. 9.5 fl (6.2-12.0); Monocyte# 0.96 X10^3/uL; Monocyte% 6.8 % (0-10); NRBC Flagged by Analyzer 0 % (0-5); Neutrophil # 9.19 X10^3/uL (2.7-7.7); Neutrophil % 65.1 % (47-70); Platelet Count 426 K/mm3 (150-450); Red Blood Count 2.93 M/mm3 (4.2-5.4); White Blood Count 14.1 K/mm3 (4.4-11.0)
[2021-02-03 05:49] LABS: ALB/GLOB Ratio 0.3 RATIO (0.9-2.4); AST(SGOT) 38 U/L (15-37); Alanine Aminotransfer ALT/SGPT 19 U/L (13-56); Albumin, Serum 1.7 g/dL (3.2-5.0); Alkaline Phosphatase 130 U/L (45-117); Anion Gap -1 (5-15); BUN 15 mg/dL (7-18); BUN/Creat Ratio 20.5 RATIO (10-20); Calcium,Total 8.1 mg/dL (8.5-10.1); Chloride 101 mmol/L (98-107); Creatinine, Serum 0.73 mg/dL (0.55-1.02); EST Glomerular Filtration Rate 85 mL/min (>60); Est Glom Filt Rate - Afr Amer 103 mL/min (>60); Estimated Creatinine Clearance 67.23 ml/min; Globulin 5.8 g/dL (2.2-4.2); Glucose 159 mg/dL (74-106); Potassium 4.3 mmol/L (3.5-5.1); Protein, Total 7.5 g/dL (6.4-8.2); Sodium Level 134 mmol/L (136-145)
[2021-02-03] MEDS: Fluticasone/Salmeterol 232-14 Inhaler 1 PUFF INHALATION ×2 (05:54→17:17)
[2021-02-03] MEDS: Loperamide 2 MG Capsule 4 MG PO ×4 (05:55→22:19)
[2021-02-03] MEDS: Pantoprazole Sodium 40 MG Tablet PO ×2 (05:55→17:18)
[2021-02-03] MEDS: Gabapentin 300 MG Capsule PO ×2 (05:55→17:18)
[2021-02-03] MEDS: guaiFENesin 600 MG Tablet 1200 MG PO ×2 (05:55→17:18)
[2021-02-03] MEDS: Menthol/Lanolin/Calamine/Znox 113 GM Tube 1 APPLIC TOPICAL ×2 (05:55→17:17)
[2021-02-03] MEDS: Nystatin Powder 15gm Bottle 1 APPLIC TOPICAL ×3 (05:56→22:43)
[2021-02-03 06:30] LABS: Bedside Glucose 163 mg/dL (70-110)
--- NOTE | 2021-02-03 06:54 | PHA.CONS_ITS ---
<Edgardo Posada D - Last Filed: 02/03/21 06:54> Progress Note - Pharmacy Subjective: [] Objective: Allergies cefprozil Allergy (Verified 02/02/21 11:23) Shortness of breath ceftriaxone Allergy (Verified 02/02/21 11:23) Hives clindamycin Allergy (Verified 02/02/21 11:23) Rash enalapril Allergy (Verified 02/02/21 11:23) Other enoxaparin Allergy (Verified 02/02/21 11:23) Rash heparin Allergy (Verified 02/02/21 11:23) Rash levalbuterol Allergy (Verified 02/02/21 11:23) Other morphine Allergy (Verified 02/02/21 11:23) Shortness of breath Penicillins Allergy (Verified 02/02/21 11:23) Anaphylaxis shellfish derived Allergy (Verified 02/02/21 11:23) Anaphylaxis valsartan Allergy (Verified 02/02/21 11:23) Other vancomycin Allergy (Verified 02/02/21 11:23) Rash Current Medications Generic Name Dose Route Start Last Admin Trade Name Freq PRN Reason Stop Dose Admin Acetaminophen 1,000 mg 01/30/21 17:19 Acetaminophen 500 Mg Tablet PO Q6H PRN FEVER Acetaminophen 500 mg 02/02/21 20:29 Acetaminophen 500 Mg Tablet PO Q6H PRN PRN Pain Score 1-5 Hydrocodone Bitart/Acetaminophen 1 tablet 02/02/21 20:29 02/02/21 23:46 Hydrocodone Bitartrate/Apap 5/325 Tablet PO 1 tablet Q6H PRN PRN Administration Pain Score 6-10 Albuterol Sulfate 1 puff 01/30/21 16:59 02/02/21 06:06 Albuterol Sulfate 8 Gm Inhaler (60 Puffs) INHALATION 1 puff Q4H PRN PRN Administration SHORTNESS OF BREATH Calamine/Phenol 1 applic 01/30/21 18:00 02/03/21 05:55 Menthol/Lanolin/Calamine/Znox 113 Gm Tube TOPICAL 1 applic BID HEMA Administration Protocol Gabapentin 300 mg 01/30/21 18:00 02/03/21 05:55 Gabapentin 300 Mg Capsule PO 300 mg BID HEMA Administration Gabapentin 600 mg 01/30/21 22:00 02/02/21 20:13 Gabapentin 600 Mg Tablet PO 600 mg QHS HEMA Administration Guaifenesin 1,200 mg 01/30/21 18:00 02/03/21 05:55 Guaifenesin 600 Mg Tablet PO 1,200 mg BID HEMA Administration Meropenem 1 gm/ Sodium 120 mls @ 33 mls/hr 02/02/21 06:00 02/03/21 05:56 Chloride IV 33 mls/hr Q8 HEMA Administration Linezolid 600 mg in 300 mls @ 200 mls/hr 02/02/21 10:00 02/03/21 01:21 Zyvox 600mg IV Infused Q12@1000,2200 HEMA Infusion Insulin Human NPH 100 units 01/31/21 08:00 Insulin Nph Human 100 Units/Ml Pen SC DAILYCM PRN DAILY BLOOD GLUCOSE >300 L-Arginine/L-Glutamine/Calcium HMB 1 packet 01/31/21 17:00 02/02/21 17:42 Alfredo (Unflavored) Packet PO 1 packet BIDCM HEMA Administration Lactobacillus Acidophilus 1 tablet 01/31/21 06:00 02/03/21 05:55 Lactobacillus Acidophilus PO 1 tablet DAILY HEMA Administration Loperamide HCl 4 mg 01/30/21 22:00 02/03/21 05:55 Loperamide 2 Mg Capsule PO 4 mg 4X/DAY HEMA Administration Nystatin 1 applic 01/30/21 22:00 02/03/21 05:56 Nystatin Powder 15gm Bottle TOPICAL 1 applic TID HEMA Administration Protocol Ondansetron HCl 4 mg 01/30/21 17:02 02/02/21 23:46 Ondansetron Odt 4 Mg Tablet PO 4 mg Q6H PRN PRN Administration NAUSEA Pantoprazole Sodium 40 mg 01/30/21 18:00 02/03/21 05:55 Pantoprazole Sodium 40 Mg Tablet PO 40 mg BID HEMA Administration Polysaccharide Iron Complex 150 mg 02/01/21 08:00 02/02/21 08:06 Iron Polysaccharide Complex 150 Mg Capsule PO Not Given DAILYCM [facility] Fluticasone/Salmeterol 1 puff 01/30/21 18:00 02/03/21 05:54 Fluticasone/Salmeterol 232-14 Inhaler INHALATION 1 applic Q12 HEMA Administration Sodium Chloride 10 ml 02/01/21 20:31 02/02/21 01:18 0.9 % Nacl (Sterile) Posiflush 10 Ml IV 10 ml PRN PRN Administration maintain patency Sodium Chloride 250 ml 02/01/21 20:31 02/01/21 21:04 0.9% Normal Saline 250 Ml Iv.Soln. IV 250 ml PRN PRN Administration flush atb post infusion and maintain patency Sodium Hypochlorite 1 applic 02/02/21 06:00 02/02/21 09:01 Dakin's Ritika Half Strength (=0.25%) TOPICAL Not Given DAILY HEMA Protocol Tuberculin PPD 5 tu 02/07/21 10:00 Tuberculin,Purif.Prot.Deriv. 50 Tu/Ml Vial ID 02/07/21 10:01 X1 ONE Problem List Debility (Acute) Diabetic foot ulcer (Chronic) Cellulitis of left foot (Acute) Osteomyelitis of left foot (Suspected) Diabetes mellitus (Chronic) Brain tumor (benign) (Chronic) Chronic diarrhea (Chronic) Epilepsy (Chronic) Mitral valve prolapse (Chronic) Diabetic neuropathy (Chronic) 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) Gastroesophageal reflux disease (Chronic) Abscess of left foot (Acute) Type 2 diabetes mellitus with diabetic polyneuropathy (Chronic) Asthma (Chronic) Vital Signs Temp Pulse Resp BP Pulse Ox 97.8 F 65 18 127/91 H 97 02/03/21 05:34 02/03/21 05:34 02/03/21 05:34 02/03/21 05:34 02/03/21 05:34 Oxygen Delivery Method Room Air Weight: 67.812 kg Body Mass Index (BMI) 26.1 Sodium 134 mmol/L (136-145) L 02/03/21 05:05 Potassium 4.3 mmol/L (3.5-5.1) 02/03/21 05:05 Chloride 101 mmol/L (98-107) 02/03/21 05:05 Carbon Dioxide 34.0 mmol/L (21.0-32.0) H 02/03/21 05:05 Anion Gap -1 (5-15) L 02/03/21 05:05 BUN 15 mg/dL (7-18) 02/03/21 05:05 Creatinine 0.73 mg/dL (0.55-1.02) 02/03/21 05:05 Est GFR (MDRD) Af Amer 103 mL/min (>60) 02/03/21 05:05 Est GFR (MDRD) Non-Af 85 mL/min (>60) 02/03/21 05:05 BUN/Creatinine Ratio 20.5 RATIO (10-20) H 02/03/21 05:05 Glucose 159 mg/dL (74-106) H 02/03/21 05:05 Assessment/Plan: 1) Pain APAP for pain 1-5 or fever, gabapentin, [place] for pain 6-10. Continue to monitor daily pain scores, prn medication use. 2) DM2 Insulin NPH with breakfast. Continue to monitor BGT, s/s hyper/hypoglycemia. 3) ID Linezolid and meropenem. Continue to monitor s/s infection, WBC count, weekly CBC/platelet count. * Please clarify stop date for both medications when known. ID following. 4) Pulm Albuterol for shortness of breath, fluticasone/salmeterol scheduled, guaifenesin . Continue to monitor prn medication use, shortness of breath. 5) GI Pantoprazole, lactobacillus, ondansetron for nausea. Continue to monitor s/s GI distress. 6) Nutrition Fe, Alfredo. Continue to monitor clinically. Psychotropic Medications: None Unnecessary Medications: None Bowel Regimen: 7) Loperamide 4x daily. Continue to monitor for constipation/diarrhea. Date of Note:: 02/03/21 - Provider Comments Provider responsibility: Provider responsible to enter orders to implement recommendations <Enrique Ivy Chi - Last Filed: 02/03/21 08:00> Progress Note - Pharmacy Subjective: [] Objective: Allergies cefprozil Allergy (Verified 02/02/21 11:23) Shortness of breath ceftriaxone Allergy (Verified 02/02/21 11:23) Hives clindamycin Allergy (Verified 02/02/21 11:23) Rash enalapril Allergy (Verified 02/02/21 11:23) Other enoxaparin Allergy (Verified 02/02/21 11:23) Rash heparin Allergy (Verified 02/02/21 11:23) Rash levalbuterol Allergy (Verified 02/02/21 11:23) Other morphine Allergy (Verified 02/02/21 11:23) Shortness of breath Penicillins Allergy (Verified 02/02/21 11:23) Anaphylaxis shellfish derived Allergy (Verified 02/02/21 11:23) Anaphylaxis valsartan Allergy (Verified 02/02/21 11:23) Other vancomycin Allergy (Verified 02/02/21 11:23) Rash Current Medications Generic Name Dose Route Start Last Admin Trade Name Freq PRN Reason Stop Dose Admin Acetaminophen 1,000 mg 01/30/21 17:19 Acetaminophen 500 Mg Tablet PO Q6H PRN FEVER Acetaminophen 500 mg 02/02/21 20:29 Acetaminophen 500 Mg Tablet PO Q6H PRN PRN Pain Score 1-5 Hydrocodone Bitart/Acetaminophen 1 tablet 02/02/21 20:29 02/03/21 07:05 Hydrocodone Bitartrate/Apap 5/325 Tablet PO 1 tablet Q6H PRN PRN Administration Pain Score 6-10 Albuterol Sulfate 1 puff 01/30/21 16:59 02/02/21 06:06 Albuterol Sulfate 8 Gm Inhaler (60 Puffs) INHALATION 1 puff Q4H PRN PRN Administration SHORTNESS OF BREATH Calamine/Phenol 1 applic 01/30/21 18:00 02/03/21 05:55 Menthol/Lanolin/Calamine/Znox 113 Gm Tube TOPICAL 1 applic BID HEMA Administration Protocol Gabapentin 300 mg 01/30/21 18:00 02/03/21 05:55 Gabapentin 300 Mg Capsule PO 300 mg BID HEMA Administration Gabapentin 600 mg 01/30/21 22:00 02/02/21 20:13 Gabapentin 600 Mg Tablet PO 600 mg QHS HEMA Administration Guaifenesin 1,200 mg 01/30/21 18:00 02/03/21 05:55 Guaifenesin 600 Mg Tablet PO 1,200 mg BID HEMA Administration Meropenem 1 gm/ Sodium 120 mls @ 33 mls/hr 02/02/21 06:00 02/03/21 05:56 Chloride IV 33 mls/hr Q8 HEMA Administration Linezolid 600 mg in 300 mls @ 200 mls/hr 02/02/21 10:00 02/03/21 01:21 Zyvox 600mg IV Infused Q12@1000,2200 HEMA Infusion Insulin Human NPH 100 units 01/31/21 08:00 Insulin Nph Human 100 Units/Ml Pen SC DAILYCM PRN DAILY BLOOD GLUCOSE >300 L-Arginine/L-Glutamine/Calcium HMB 1 packet 01/31/21 17:00 02/02/21 17:42 Alfredo (Unflavored) Packet PO 1 packet BIDCM HEMA Administration Lactobacillus Acidophilus 1 tablet 01/31/21 06:00 02/03/21 05:55 Lactobacillus Acidophilus PO 1 tablet DAILY HEMA Administration Loperamide HCl 4 mg 01/30/21 22:00 02/03/21 05:55 Loperamide 2 Mg Capsule PO 4 mg 4X/DAY HEMA Administration Nystatin 1 applic 01/30/21 22:00 02/03/21 05:56 Nystatin Powder 15gm Bottle TOPICAL 1 applic TID HEMA Administration Protocol Ondansetron HCl 4 mg 01/30/21 17:02 02/03/21 07:04 Ondansetron Odt 4 Mg Tablet PO 4 mg Q6H PRN PRN Administration NAUSEA Pantoprazole Sodium 40 mg 01/30/21 18:00 02/03/21 05:55 Pantoprazole Sodium 40 Mg Tablet PO 40 mg BID HEMA Administration Polysaccharide Iron Complex 150 mg 02/01/21 08:00 02/02/21 08:06 Iron Polysaccharide Complex 150 Mg Capsule PO Not Given DAILYCM [facility] Fluticasone/Salmeterol 1 puff 01/30/21 18:00 02/03/21 05:54 Fluticasone/Salmeterol 232-14 Inhaler INHALATION 1 applic Q12 HMEA Administration Sodium Chloride 10 ml 02/01/21 20:31 02/02/21 01:18 0.9 % Nacl (Sterile) Posiflush 10 Ml IV 10 ml PRN PRN Administration maintain patency Sodium Chloride 250 ml 02/01/21 20:31 02/01/21 21:04 0.9% Normal Saline 250 Ml Iv.Soln. IV 250 ml PRN PRN Administration flush atb post infusion and maintain patency Sodium Hypochlorite 1 applic 02/02/21 06:00 02/02/21 09:01 Dakin's Ritika Half Strength (=0.25%) TOPICAL Not Given DAILY [facility] Protocol Tuberculin PPD 5 tu 02/07/21 10:00 Tuberculin,Purif.Prot.Deriv. 50 Tu/Ml Vial ID 02/07/21 10:01 X1 ONE Problem List Debility (Acute) Diabetic foot ulcer (Chronic) Cellulitis of left foot (Acute) Osteomyelitis of left foot (Suspected) Diabetes mellitus (Chronic) Brain tumor (benign) (Chronic) Chronic diarrhea (Chronic) Epilepsy (Chronic) Mitral valve prolapse (Chronic) Diabetic neuropathy (Chronic) 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) Gastroesophageal reflux disease (Chronic) Abscess of left foot (Acute) Type 2 diabetes mellitus with diabetic polyneuropathy (Chronic) Asthma (Chronic) Vital Signs Temp Pulse Resp BP Pulse Ox 97.8 F 65 18 127/91 H 97 02/03/21 05:34 02/03/21 05:34 02/03/21 05:34 02/03/21 05:34 02/03/21 05:34 Oxygen Delivery Method Room Air Weight: 67.812 kg Body Mass Index (BMI) 26.1 Sodium 134 mmol/L (136-145) L 02/03/21 05:05 Potassium 4.3 mmol/L (3.5-5.1) 02/03/21 05:05 Chloride 101 mmol/L (98-107) 02/03/21 05:05 Carbon Dioxide 34.0 mmol/L (21.0-32.0) H 02/03/21 05:05 Anion Gap -1 (5-15) L 02/03/21 05:05 BUN 15 mg/dL (7-18) 02/03/21 05:05 Creatinine 0.73 mg/dL (0.55-1.02) 02/03/21 05:05 Est GFR (MDRD) Af Amer 103 mL/min (>60) 02/03/21 05:05 Est GFR (MDRD) Non-Af 85 mL/min (>60) 02/03/21 05:05 BUN/Creatinine Ratio 20.5 RATIO (10-20) H 02/03/21 05:05 Glucose 159 mg/dL (74-106) H 02/03/21 05:05 Assessment/Plan: Psychotropic Medications: Unnecessary Medications: Bowel Regimen: - Provider Comments Provider responsibility: Provider responsible to enter orders to implement recommendations Provider Comments to 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s by Pharmacy: Agree
[2021-02-03] MEDS: Ondansetron ODT 4 MG Tablet PO (07:04)
[2021-02-03] MEDS: HYDROcodone Bitartrate/Apap 5/325 Tablet PO ×3 (07:05→22:17)
[2021-02-03] MEDS: Iron Polysaccharide Complex 150 MG CAPSULE PO (08:12)
[2021-02-03] MEDS: Juven (unflavored) Packet 1 PACKET PO ×2 (08:13→17:17)
[2021-02-03 09:16] LABS: Bedside Glucose 244 mg/dL (70-110)
--- NOTE | 2021-02-03 09:30 | NURSING ---
SHEET IRONWORKER called @ 0909, pt was assisted to BSC by staff & became unresponsive for short periods of time, assisted back to bed. vitals stable. 500cc bolus ordered. pt no transferred, kept here. will continue to monitor vitals and pt alertness throughout shift. Dr Weber updated that pt has history of brain tumors, epilepsy, & not on blood thinners d/t allergy. He does not feel it was seizures.
--- NOTE | 2021-02-03 09:30 | CASEMGMT ---
Social Work Responded to RESPITE WORKER. Pt alert and communicative but very drowsy. Remained at bedside with pt, per her request, held her hand, and reassured her safety and medical care. Conversed with pt to keep alert and calm. Pt continued to repeat her two favorite bible verses to this worker. Relayed information to pt as it became available. Ongoing support provided until stabilized and recommended pt remain in TCU with continued monitoring. Pt appreciative of this worker at bedside. Philly Ace, SHIP ENGINEER CONSULTING SERVICES MANAGER
--- NOTE | 2021-02-03 10:04 | PCM.PN.ID ---
Patient Problems: Active and Suspected Problems Debility (Acute) Cellulitis of left foot (Acute) Osteomyelitis of left foot (Suspected) Abscess of left foot (Acute) Subjective: Syncopal episode this AM while having BM, feeling ok now. No fever. - Physical Exam Vitals/I&O's: Vital Signs Temp Pulse Resp BP Pulse Ox 97.8 F 65 18 127/91 H 97 02/03/21 05:34 02/03/21 05:34 02/03/21 05:34 02/03/21 05:34 02/03/21 05:34 Oxygen Delivery Method Room Air Weight: 67.812 kg Body Mass Index (BMI) 26.1 Intake and Output for Last 24 Hours 02/01/21 02/02/21 02/03/21 23:59 23:59 23:59 Intake Total 630 / 630 1080 / 1080 780 / 780 Output Total 400 / 400 Balance 630 / 630 680 / 680 780 / 780 General: Alert, Cooperative, No apparent distress Lungs: Clear to auscultation, Normal air movement Cardiovascular: Regular rate, Regular Rhythm Abdomen: Soft, Non Tender, Non-Distended Skin: Ulcer/ Wound - foot wrapped Microbiology Past 72 Hours 02/01/21 19:43 Wound Abcess - Aerobic & Anaerobic Swabs Gram Stain - Final 02/01/21 19:43 Wound Abcess - Aerobic & Anaerobic Swabs Wound Culture - Preliminary Staphylococcus aureus Laboratory Results 02/01/21 19:43: S.aureus Protein A PCR POSITIVE H, MRSA (PCR) Negative 02/02/21 10:34: POC Glucose 178 H 02/02/21 11:33: POC Glucose 197 H 02/02/21 14:15: POC Glucose 150 H 02/02/21 16:23: POC Glucose 183 H 02/02/21 20:40: Hgb 9.4 L, Hct 29.7 L 02/02/21 21:14: POC Glucose 278 H 02/03/21 05:05: WBC 14.1 H, RBC 2.93 L, Hgb 8.8 L, Hct 28.7 L, MCV 98.0, MCH 30.0, MCHC 30.7 L, RDW Std Deviation 43.0, RDW Coeff of Xin 12.0, Plt Count 426, MPV 9.5, Immature Gran % (Auto) 1.000 H, Neut % (Auto) 65.1, Lymph % (Auto) 24.7, [place] % (Auto) 6.8, Eos % (Auto) 1.8, Baso % (Auto) 0.6, Absolute Neuts (auto) 9.2 H, Absolute Lymphs (auto) 3.49, Nucleated RBC % 0 02/03/21 05:05: Sodium 134 L, Potassium 4.3, Chloride 101, Carbon Dioxide 34.0 H, Anion Gap -1 L, BUN 15, Creatinine 0.73, Estim Creat Clear Calc 67.23, Est GFR (MDRD) Af Amer 103, Est GFR (MDRD) Non-Af 85, BUN/Creatinine Ratio 20.5 H, Glucose 159 H, Calcium 8.1 L, Total Bilirubin 0.30, AST 38 H, ALT 19, Alkaline Phosphatase 130 H, Total Protein 7.5, Albumin 1.7 L, Globulin 5.8 H, Albumin/Globulin Ratio 0.3 L 02/03/21 06:17: POC Glucose 163 H 02/03/21 09:09: POC Glucose 244 H Current Medications Acetaminophen (Acetaminophen 500 Mg Tablet) 1,000 mg PO Q6H PRN PRN Reason: FEVER Acetaminophen (Acetaminophen 500 Mg Tablet) 500 mg PO Q6H PRN PRN PRN Reason: Pain Score 1-5 Hydrocodone Bitart/Acetaminophen (Hydrocodone Bitartrate/Apap 5/325 Tablet) 1 tablet PO Q6H PRN PRN PRN Reason: Pain Score 6-10 Last Admin: 02/03/21 07:05 Dose: 1 tablet Documented by: Albuterol Sulfate (Albuterol Sulfate 8 Gm Inhaler (60 Puffs)) 1 puff INHALATION Q4H PRN PRN PRN Reason: SHORTNESS OF BREATH Last Admin: 02/02/21 06:06 Dose: 1 puff Documented by: Calamine/Phenol (Menthol/Lanolin/Calamine/Znox 113 Gm Tube) 1 applic TOPICAL BID [facility]; Protocol Last Admin: 02/03/21 05:55 Dose: 1 applic Documented by: Gabapentin (Gabapentin 300 Mg Capsule) 300 mg PO BID [facility] Last Admin: 02/03/21 05:55 Dose: 300 mg Documented by: Gabapentin (Gabapentin 600 Mg Tablet) 600 mg PO QHS [facility] Last Admin: 02/02/21 20:13 Dose: 600 mg Documented by: Guaifenesin (Guaifenesin 600 Mg Tablet) 1,200 mg PO BID [facility] Last Admin: 02/03/21 05:55 Dose: 1,200 mg Documented by: Meropenem 1 gm/ Sodium (Chloride) 120 mls @ 33 mls/hr IV Q8 [facility] Last Admin: 02/03/21 05:56 Dose: 33 mls/hr Documented by: Linezolid (Zyvox 600mg) 600 mg in 300 mls @ 200 mls/hr IV Q12@1000,2200 [facility] Last Infusion: 02/03/21 01:21 Dose: Infused Documented by: Insulin Human NPH (Insulin Nph Human 100 Units/Ml Pen) 100 units SC DAILYCM PRN PRN Reason: DAILY BLOOD GLUCOSE >300 L-Arginine/L-Glutamine/Calcium HMB (Alfredo (Unflavored) Packet) [facility] Last Admin: 02/03/21 08:13 Dose: 1 packet Documented by: Lactobacillus Acidophilus (Lactobacillus Acidophilus) 1 tablet PO DAILY [facility] Last Admin: 02/03/21 05:55 Dose: 1 tablet Documented by: Loperamide HCl (Loperamide 2 Mg Capsule) 4 mg PO 4X/DAY [facility] Last Admin: 02/03/21 05:55 Dose: 4 mg Documented by: Nystatin (Nystatin Powder 15gm Bottle) 1 applic TOPICAL TID [facility]; Protocol Last Admin: 02/03/21 05:56 Dose: 1 applic Documented by: Ondansetron HCl (Ondansetron Odt 4 Mg Tablet) 4 mg PO Q6H PRN PRN PRN Reason: NAUSEA Last Admin: 02/03/21 07:04 Dose: 4 mg Documented by: Pantoprazole Sodium (Pantoprazole Sodium 40 Mg Tablet) 40 mg PO BID [facility] Last Admin: 02/03/21 05:55 Dose: 40 mg Documented by: Polysaccharide Iron Complex (Iron Polysaccharide Complex 150 Mg Capsule) 150 mg PO DAILYCM [facility] Last Admin: 02/03/21 08:12 Dose: 150 mg Documented by: Fluticasone/Salmeterol (Fluticasone/Salmeterol 232-14 Inhaler) 1 puff INHALATION Q12 [facility] Last Admin: 02/03/21 05:54 Dose: 1 applic Documented by: Sodium Chloride (0.9 % Nacl (Sterile) Posiflush 10 Ml) 10 ml IV PRN PRN PRN Reason: maintain patency Last Admin: 02/02/21 01:18 Dose: 10 ml Documented by: Sodium Chloride (0.9% Normal Saline 250 Ml Iv.Soln.) 250 ml IV PRN PRN PRN Reason: flush atb post infusion and maintain patency Last Admin: 02/01/21 21:04 Dose: 250 ml Documented by: Sodium Hypochlorite (Dakin's Ritika Half Strength (=0.25%)) 1 applic TOPICAL DAILY [facility]; Protocol Last Admin: 02/02/21 09:01 Dose: Not Given Documented by: Tuberculin PPD (Tuberculin,Purif.Prot.Deriv. 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 Discharged here on po doxy for mssa and po cipro for esbl klebs uti. Now with worsening purulence and inflammation of L foot. MRI did not show any residual osteo. Abx changed back to linezolid/meropenem, now s/p OR with Dr. Finn 02/02/21. Cont abx, will follow results. Wound cx 02/01 showing staph aureus. Will follow, d/w nursing
[2021-02-03] MEDS: Linezolid 600 MG 600 MG/300 ML BAG 200 MG IV ×2 (10:05→22:29)
[2021-02-03 10:56] LABS: Bedside Glucose 287 mg/dL (70-110)
--- NOTE | 2021-02-03 12:30 | CASEMGMT ---
Social Work IDT met with patient, and dtr via conference call for care plan meeting. Discussed patient's progress in therapy and nursing. Pt no longer has wound vac but has IV ATBs with no stop date. Explained no estimated DC date with foot wound and IVs. Explained Medicare benefit and pt states she does have secondary insurance. Pt having get insurance card faxed to SW to verify. Explained pt is out of isolation 02/13. Followed up with pt from UTILIZATION REVIEW RN. Pt in bed and feeling better. Pt agreeable to complete SW assessment. Discussed code status. Pt confirmed full code. MOLST form reviewed, communication to , and placed in chart. SW to continue to follow for support and ensure safe discharge planning. Philly Ace, LIBRARY SUPERVISOR COMPUTER TESTER
--- NOTE | 2021-02-03 13:02 | NURSING ---
wound photo: left foot
--- NOTE | 2021-02-03 13:06 | PN_ITS ---
Patient Problems: Active and Suspected Problems Debility (Acute) Cellulitis of left foot (Acute) Osteomyelitis of left foot (Suspected) Abscess of left foot (Acute) Subjective: 65-year-old pleasant female seen bedside postoperative day #1 open 2, 3, 4, 5th ray resections with additional foot incision and drainage. She relates her pain is better controlled this afternoon. She denies fever, chill, nausea, vomiting at this time. She was nauseous this morning. It is also noted she had a syncopal episode this morning having a bowel movement. She is seen bedside with wound nurse Renee. - Physical Exam Vitals/I&O's: Vital Signs Temp Pulse Resp BP Pulse Ox 97.4 F L 77 16 134/59 H 96 02/03/21 10:00 02/03/21 10:00 02/03/21 10:00 02/03/21 10:00 02/03/21 10:00 Oxygen Delivery Method Room Air Weight: 67.812 kg Body Mass Index (BMI) 26.1 Intake and Output for Last 24 Hours 02/01/21 02/02/21 02/03/21 23:59 23:59 23:59 Intake Total 630 / 630 1080 / 1080 1700 / 1700 Output Total 400 / 400 Balance 630 / 630 680 / 680 1700 / 1700 General: Alert, Oriented x3, Cooperative Extremities: No Calf Tenderness, Diminished Peripheral Pulses, Edema - Mild left foot, - - Dusky discoloration to lateral dorsal open amputation flap site. This will be monitored for salvageability Skin: Ulcer/ Wound - Open amputation without active bleeding. Most tissue is viable with some intermittent granulation and exposed muscles and resected bones. There is no purulence or odor on expression. Her adjacent erythema is also significantly reduced in intensity and location. Musculoskeletal: Muscle Wasting, Tenderness - Mild tenderness with wound and open amputation/incision and drainage site manipulation, - - Open amputation left Neurological: - - Lack of normal epicritic sensation is consistent neuropathic status Psych/Mental Status: Normal Affect, Appropriate Microbiology Past 72 Hours 02/01/21 19:43 Wound Abcess - Aerobic & Anaerobic Swabs Gram Stain - Final 02/01/21 19:43 Wound Abcess - Aerobic & Anaerobic Swabs Wound Culture - Preliminary Staphylococcus aureus Laboratory Results 02/02/21 14:15: POC Glucose 150 H 02/02/21 16:23: POC Glucose 183 H 02/02/21 20:40: Hgb 9.4 L, Hct 29.7 L 02/02/21 21:14: POC Glucose 278 H 02/03/21 05:05: WBC 14.1 H, RBC 2.93 L, Hgb 8.8 L, Hct 28.7 L, MCV 98.0, MCH 30.0, MCHC 30.7 L, RDW Std Deviation 43.0, RDW Coeff of Xin 12.0, Plt Count 426, MPV 9.5, Immature Gran % (Auto) 1.000 H, Neut % (Auto) 65.1, Lymph % (Auto) 24.7, [place] % (Auto) 6.8, Eos % (Auto) 1.8, Baso % (Auto) 0.6, Absolute Neuts (auto) 9.2 H, Absolute Lymphs (auto) 3.49, Nucleated RBC % 0 02/03/21 05:05: Sodium 134 L, Potassium 4.3, Chloride 101, Carbon Dioxide 34.0 H , Anion Gap -1 L, BUN 15, Creatinine 0.73, Estim Creat Clear Calc 67.23, Est GFR (MDRD) Af Amer 103, Est GFR (MDRD) Non-Af 85, BUN/Creatinine Ratio 20.5 H, Glucose 159 H, Calcium 8.1 L, Total Bilirubin 0.30, AST 38 H, ALT 19, Alkaline Phosphatase 130 H, Total Protein 7.5, Albumin 1.7 L, Globulin 5.8 H, Albumin/Globulin Ratio 0.3 L 02/03/21 06:17: POC Glucose 163 H 02/03/21 09:09: POC Glucose 244 H 02/03/21 10:46: POC Glucose 287 H Current Medications Acetaminophen (Acetaminophen 500 Mg Tablet) 1,000 mg PO Q6H PRN PRN Reason: FEVER Acetaminophen (Acetaminophen 500 Mg Tablet) 500 mg PO Q6H PRN PRN PRN Reason: Pain Score 1-5 Hydrocodone Bitart/Acetaminophen (Hydrocodone Bitartrate/Apap 5/325 Tablet) 1 tablet PO Q6H PRN PRN PRN Reason: Pain Score 6-10 Last Admin: 02/03/21 07:05 Dose: 1 tablet Documented by: Albuterol Sulfate (Albuterol Sulfate 8 Gm Inhaler (60 Puffs)) 1 puff INHALATION Q4H PRN PRN PRN Reason: SHORTNESS OF BREATH Last Admin: 02/02/21 06:06 Dose: 1 puff Documented by: Calamine/Phenol (Menthol/Lanolin/Calamine/Znox 113 Gm Tube) 1 applic TOPICAL BID [facility]; Protocol Last Admin: 02/03/21 05:55 Dose: 1 applic Documented by: Gabapentin (Gabapentin 300 Mg Capsule) 300 mg PO BID [facility] Last Admin: 02/03/21 05:55 Dose: 300 mg Documented by: Gabapentin (Gabapentin 600 Mg Tablet) 600 mg PO QHS [facility] Last Admin: 02/02/21 20:13 Dose: 600 mg Documented by: Guaifenesin (Guaifenesin 600 Mg Tablet) 1,200 mg PO BID [facility] Last Admin: 02/03/21 05:55 Dose: 1,200 mg Documented by: Meropenem 1 gm/ Sodium (Chloride) 120 mls @ 33 mls/hr IV Q8 [facility] Last Infusion: 02/03/21 10:05 Dose: Infused Documented by: Linezolid (Zyvox 600mg) 600 mg in 300 mls @ 200 mls/hr IV Q12@1000,2200 [facility] Last Infusion: 02/03/21 11:54 Dose: Infused Documented by: Insulin Human NPH (Insulin Nph Human 100 Units/Ml Pen) 100 units SC DAILYCM PRN PRN Reason: DAILY BLOOD GLUCOSE >300 L-Arginine/L-Glutamine/Calcium HMB (Alfredo (Unflavored) Packet) 1 packet PO BIDCM [facility] Last Admin: 02/03/21 08:13 Dose: 1 packet Documented by: Lactobacillus Acidophilus (Lactobacillus Acidophilus) 1 tablet PO DAILY [facility] Last Admin: 02/03/21 05:55 Dose: 1 tablet Documented by: Loperamide HCl (Loperamide 2 Mg Capsule) 4 mg PO 4X/DAY [facility] Last Admin: 02/03/21 11:48 Dose: 4 mg Documented by: Nystatin (Nystatin Powder 15gm Bottle) 1 applic TOPICAL TID [facility]; Protocol Last Admin: 02/03/21 05:56 Dose: 1 applic Documented by: Ondansetron HCl (Ondansetron Odt 4 Mg Tablet) 4 mg PO Q6H PRN PRN PRN Reason: NAUSEA Last Admin: 02/03/21 07:04 Dose: 4 mg Documented by: Pantoprazole Sodium (Pantoprazole Sodium 40 Mg Tablet) 40 mg PO BID [facility] Last Admin: 02/03/21 05:55 Dose: 40 mg Documented by: Polysaccharide Iron Complex (Iron Polysaccharide Complex 150 Mg Capsule) 150 mg PO DAILYCM [facility] Last Admin: 02/03/21 08:12 Dose: 150 mg Documented by: Fluticasone/Salmeterol (Fluticasone/Salmeterol 232-14 Inhaler) 1 puff INHALATION Q12 [facility] Last Admin: 02/03/21 05:54 Dose: 1 applic Documented by: Sodium Chloride (0.9 % Nacl (Sterile) Posiflush 10 Ml) 10 ml IV PRN PRN PRN Reason: maintain patency Last Admin: 02/02/21 01:18 Dose: 10 ml Documented by: Sodium Chloride (0.9% Normal Saline 250 Ml Iv.Soln.) 250 ml IV PRN PRN PRN Reason: flush atb post infusion and maintain patency Last Admin: 02/01/21 21:04 Dose: 250 ml Documented by: Sodium Chloride (0.9% Saline Lock 10 Ml Syringe) 10 - 40 ml IV UD PRN PRN Reason: SALINE FLUSH Sodium Hypochlorite (Dakin's Ritika Half Strength (=0.25%)) 1 applic TOPICAL DAILY [facility]; Protocol Last Admin: 02/02/21 09:01 Dose: Not Given Documented by: Tuberculin PPD (Tuberculin,Purif.Prot.Deriv. 50 Tu/Ml Vial) 5 tu ID [id number] ONE Stop: 02/07/21 10:01 Medical Necessity - Tobacco Use Smoking Status: Never smoker Tobacco Use: Non-smoker Assessment/Plan All Active Problems Debility (Acute) Cellulitis of left foot (Acute) Abscess of left foot (Acute) POD #1 open left foot 2, 3, 4, 5th ray resection with additional foot incision and drainage secondary to left mid and forefoot abscess and prior open forefoot amputation Diabetes with neuropathy Malnutrition suspected Other comorbidities: epilepsy, history of brain tumor, GERD I reviewed and discussed her case. She remains afebrile vitals are stable. She does have leukocytosis with elevated white blood cell count of 14. She has elevated ESR 46. Lab trends will be followed. She remains afebrile with vital signs stable. Postoperative foot x-rays demonstrate adequate resection of the 2, 3, fifth ray without acute injuries or retained foreign body. Clinically, there is no additional purulence and her adjacent erythema is significantly reduced. She has an open amputation site which will be monitored for continued resolution of infection and tissue salvageability prior to a staged transmetatarsal amputation at best. She is at risk for further limb loss and illness due to this condition. I recommend dressing reapplication with Dakin wet-to-dry gauze, abdominal pad, Kerlix, and Demetrio wrap. It is noted there is still residual Gelfoam to the plantar arch and this was left intact today. To maintain a non weightbearing status of left lower extremity. She continues on meropenem and linezolid intravenously. Infectious disease is on consult and is greatly appreciated. Most recent bacterial growth from 02-01-21 demonstrate Staph aureus. Her prior cultures from infection at [facility] was MSSA. New updated intraoperative cultures were obtained from debrided nonviable tissue and also as an additional clearance fragment from the central metatarsal (sent to both pathology and microbiology). She also had noninvasive vascular studies performed on 01-29-21 at [facility] with the following results: Right: Nonocclusive vessel due to calcification, no suspected arterial insufficiency based on Doppler and PVR, toe brachial index was not obtained due to patient movement Left: Nonocclusive vessel due to calcification, no suspected arterial insufficiency based on Doppler and PVR, toe brachial index was not obtained due to patient movement Medical management and DVT prophylaxis per Dr. Ivy is appreciated and noted. Pain controlled with norco or tylenol if needed; currently stable. It is noted her postoperative hemoglobin was 8.8 and is being monitored. Please do not hesitate to call with any questions. Stacie Finn DPM, FACF[facility] [phone]
[2021-02-03] MEDS: DAKIN'S SOL HALF STRENGTH (=0.25%) 1 APPLIC TOPICAL (13:46)
[2021-02-03] MEDS: 0.9% Saline Lock 10 ML Syringe IV (13:53)
[2021-02-03 16:25] LABS: Bedside Glucose 334 mg/dL (70-110)
[2021-02-03] MEDS: Insulin Lispro 100 UNIT/ML INSULN.PEN 10 UNIT SC (17:15)
--- NOTE | 2021-02-03 17:33 | CPS ---
started by nursing
[2021-02-03 18:26] LABS: Bedside Glucose 187 mg/dL (70-110)
--- NOTE | 2021-02-03 19:01 | NURSING ---
blood sugar 334 before supper, dr delacruz notified, new order for humalog 10 units x1 recheck sugar in one hr
[2021-02-03 21:11] LABS: Bedside Glucose 85 mg/dL (70-110)
[2021-02-03] MEDS: Gabapentin 600 MG Tablet PO (22:20)
[2021-02-04] MEDS: 0.9% Saline Lock 10 ML Syringe IV ×3 (00:27→14:51)
[2021-02-04 02:05] VITALS: BP 127/59; PULSE 69; RESP 16; TEMP 36.7; O2SAT 97
[2021-02-04 06:00] VITALS: BP 130/70; PULSE 67; RESP 16; TEMP 36.9; O2SAT 95
[2021-02-04] MEDS: Gabapentin 300 MG Capsule PO ×2 (06:16→17:41)
[2021-02-04] MEDS: Pantoprazole Sodium 40 MG Tablet PO ×2 (06:16→17:40)
[2021-02-04] MEDS: Loperamide 2 MG Capsule 4 MG PO ×4 (06:16→22:23)
[2021-02-04] MEDS: guaiFENesin 600 MG Tablet 1200 MG PO ×2 (06:17→17:41)
[2021-02-04] MEDS: Nystatin Powder 15gm Bottle 1 APPLIC TOPICAL ×3 (06:18→22:24)
[2021-02-04] MEDS: Menthol/Lanolin/Calamine/Znox 113 GM Tube 1 APPLIC TOPICAL ×2 (06:19→17:42)
[2021-02-04] MEDS: Fluticasone/Salmeterol 232-14 Inhaler 1 PUFF INHALATION ×2 (06:20→17:43)
[2021-02-04 06:26] LABS: Bedside Glucose 123 mg/dL (70-110)
--- NOTE | 2021-02-04 06:50 | PN_ITS ---
Patient Problems: Active and Suspected Problems Debility (Acute) Cellulitis of left foot (Acute) Osteomyelitis of left foot (Suspected) Abscess of left foot (Acute) Subjective: 65-year-old pleasant female seen bedside postoperative day #2 open 2, 3, 4, 5th ray resections with additional foot incision and drainage. She relates her pain is better controlled and is rated as 2/10. She reports at worse it was 9/10 yesterday. She denies fever, chill, nausea, vomiting, calf pain, shortness of breath, chest pain. She reports continued diarrhea. She was seen bedside with wound nurse Renee. - Physical Exam Vitals/I&O's: Vital Signs Temp Pulse Resp BP Pulse Ox 98.5 F 67 16 130/70 H 95 02/04/21 06:00 02/04/21 06:00 02/04/21 06:00 02/04/21 06:00 02/04/21 06:00 Oxygen Delivery Method Room Air Weight: 67.812 kg Body Mass Index (BMI) 26.1 Orthostatic Vital Signs Start: 02/03/21 16:30 Freq: q24h Status: Active Protocol: Activity Type Activity Date Activity User E-Sign Co-Sign Detail Recorded Client Recorded Date Recorded By Document 02/03/21 16:30 ML [id number] 02/03/21 16:31 ML 02/03/21 16:30 Orthostatic Vitals Standing -Blood Pressure (90/60-120/80) 122/48 H -Extremity Use Right Arm -Pulse Rate (60-100) 81 Sitting -Blood Pressure (90/60-120/80) 117/62 -Extremity Use Right Arm -Pulse Rate (60-100) 76 Lying -Blood Pressure (90/60-120/80) 125/56 H -Extremity Use Right Arm -Pulse Rate (60-100) 71 Intake and Output for Last 24 Hours 02/02/21 02/03/21 02/04/21 23:59 23:59 23:59 Intake Total 1080 / 1080 2480 / 2480 120 / 120 Output Total 400 / 400 Balance 680 / 680 2480 / 2480 120 / 120 General: Alert, Oriented x3, Cooperative HEENT: Atraumatic Extremities: No edema, Capillary Refill Less than 3 Seconds, No Calf Tenderness, Cyanosis - Dusky transformation to lateral and plantar lateral skin flap, Diminished Peripheral Pulses, Edema - Significantly reduced Skin: Ulcer/ Wound - Open amputation site base and the majority of the flap appears healthy with no purulence, erythema, streaking, odor. Musculoskeletal: No Tenderness to Palpation of Joints or Extremities, Muscle Wasting, - - Open amputation left foot. Compartments of lower extremity remain soft. Negative Mchugh sign left Neurological: - - Altered decreased sensation light touch is consistent with inez e neuropathy Psych/Mental Status: Normal Affect, Appropriate Microbiology Past 72 Hours 02/01/21 19:43 Wound Abcess - Aerobic & Anaerobic Swabs Gram Stain - Final 02/01/21 19:43 Wound Abcess - Aerobic & Anaerobic Swabs Wound Culture - Preliminary Staphylococcus aureus Laboratory Results 02/03/21 09:09: POC Glucose 244 H 02/03/21 10:46: POC Glucose 287 H 02/03/21 16:19: POC Glucose 334 H 02/03/21 18:19: POC Glucose 187 H 02/03/21 21:02: POC Glucose 85 02/04/21 06:16: POC Glucose 123 H Current Medications Acetaminophen (Acetaminophen 500 Mg Tablet) 1,000 mg PO Q6H PRN PRN Reason: FEVER Acetaminophen (Acetaminophen 500 Mg Tablet) 500 mg PO Q6H PRN PRN PRN Reason: Pain Score 1-5 Hydrocodone Bitart/Acetaminophen (Hydrocodone Bitartrate/Apap 5/325 Tablet) 1 tablet PO Q6H PRN PRN PRN Reason: Pain Score 6-10 Last Admin: 02/03/21 22:17 Dose: 1 tablet Documented by: Albuterol Sulfate (Albuterol Sulfate 8 Gm Inhaler (60 Puffs)) 1 puff INHALATION Q4H PRN PRN PRN Reason: SHORTNESS OF BREATH Last Admin: 02/02/21 06:06 Dose: 1 puff Documented by: Calamine/Phenol (Menthol/Lanolin/Calamine/Znox 113 Gm Tube) 1 applic TOPICAL BID [facility]; Protocol Last Admin: 02/04/21 06:19 Dose: 1 applic Documented by: Gabapentin (Gabapentin 300 Mg Capsule) 300 mg PO BID [facility] Last Admin: 02/04/21 06:16 Dose: 300 mg Documented by: Gabapentin (Gabapentin 600 Mg Tablet) 600 mg PO QHS [facility] Last Admin: 02/03/21 22:20 Dose: 600 mg Documented by: Guaifenesin (Guaifenesin 600 Mg Tablet) 1,200 mg PO BID [facility] Last Admin: 02/04/21 06:17 Dose: 1,200 mg Documented by: Meropenem 1 gm/ Sodium (Chloride) 120 mls @ 33 mls/hr IV Q8 [facility] Last Admin: 02/04/21 06:14 Dose: 33 mls/hr Documented by: Linezolid (Zyvox 600mg) 600 mg in 300 mls @ 200 mls/hr IV Q12@1000,2200 [facility] Last Infusion: 02/03/21 23:59 Dose: Infused Documented by: L-Arginine/L-Glutamine/Calcium HMB ([facility]fredo (Unflavored) Packet) [facility] Last Admin: 02/03/21 17:17 Dose: 1 packet Documented by: Lactobacillus Acidophilus (Lactobacillus Acidophilus) 1 tablet PO DAILY [facility] Last Admin: 02/04/21 06:16 Dose: 1 tablet Documented by: Loperamide HCl (Loperamide 2 Mg Capsule) 4 mg PO 4X/DAY [facility] Last Admin: 02/04/21 06:16 Dose: 4 mg Documented by: Nystatin (Nystatin Powder 15gm Bottle) 1 applic TOPICAL TID [facility]; Protocol Last Admin: 02/04/21 06:18 Dose: 1 applic Documented by: Ondansetron HCl (Ondansetron Odt 4 Mg Tablet) 4 mg PO Q6H PRN PRN PRN Reason: NAUSEA Last Admin: 02/03/21 07:04 Dose: 4 mg Documented by: Pantoprazole Sodium (Pantoprazole Sodium 40 Mg Tablet) 40 mg PO BID [facility] Last Admin: 02/04/21 06:16 Dose: 40 mg Documented by: Polysaccharide Iron Complex (Iron Polysaccharide Complex 150 Mg Capsule) [facility] Last Admin: 02/03/21 08:12 Dose: 150 mg Documented by: Fluticasone/Salmeterol (Fluticasone/Salmeterol 232-14 Inhaler) 1 puff INHALATION Q12 [facility] Last Admin: 02/04/21 06:20 Dose: 1 applic Documented by: Sodium Chloride (0.9 % Nacl (Sterile) Posiflush 10 Ml) 10 ml IV PRN PRN PRN Reason: maintain patency Last Admin: 02/02/21 01:18 Dose: 10 ml Documented by: Sodium Chloride (0.9% Normal Saline 250 Ml Iv.Soln.) 250 ml IV PRN PRN PRN Reason: flush atb post infusion and maintain patency Last Admin: 02/01/21 21:04 Dose: 250 ml Documented by: Sodium Chloride (0.9% Saline Lock 10 Ml Syringe) 10 - 40 ml IV UD PRN PRN Reason: SALINE FLUSH Last Admin: 02/04/21 06:12 Dose: 10 ml Documented by: Sodium Hypochlorite (Dakin's Ritika Half Strength (=0.25%)) 1 applic TOPICAL DAILY [facility]; Protocol Last Admin: 02/03/21 13:46 Dose: 1 applic Documented by: Tuberculin PPD (Tuberculin,Purif.Prot.Deriv. 50 Tu/Ml Vial) 5 tu ID [id number] ONE Stop: 02/07/21 10:01 Medical Necessity - Tobacco Use Smoking Status: Never smoker Tobacco Use: Non-smoker Assessment/Plan All Active Problems Debility (Acute) Cellulitis of left foot (Acute) Abscess of left foot (Acute) POD #2 open left foot 2, 3, 4, 5th ray resection with additional foot incision and drainage secondary to left mid and forefoot abscess and prior open forefoot amputation Diabetes with neuropathy Malnutrition suspected Other comorbidities: epilepsy, history of brain tumor, GERD I reviewed and discussed her case. She remains afebrile vitals are stable. Morning labs pending. Clinically, there is no additional purulence and her adjacent erythema is significantly reduced. She has an open amputation site which will be monitored for continued resolution of infection and tissue salvageability prior to a staged transmetatarsal amputation at best. She is at risk for further limb loss and illness due to this condition. Dressing reapplied with Dakin wet-to-dry gauze, abdominal pad, Kerlix, and Demetrio wrap. To maintain a non weightbearing status of left lower extremity. She continues on meropenem and linezolid intravenously. Most recent bacterial growth from 02-01-21 demonstrate Staph aureus. Her prior cultures from infection at [facility] was MSSA. New updated intraoperative cultures were obtained from debrided nonviable tissue and also as an additional clearance fragment from the central metatarsal (sent to both pathology and microbiology). Continued diarrhea and h/o C-diff is also noted. Infectious disease is on consult and is greatly appreciated. She also had noninvasive vascular studies performed on 01-29-21 at [facility] with the following results: Right: Nonocclusive vessel due to calcification, no suspected arterial insufficiency based on Doppler and PVR, toe brachial index was not obtained due to patient movement Left: Nonocclusive vessel due to calcification, no suspected arterial insufficie ncy based on Doppler and PVR, toe brachial index was not obtained due to patient movement Pending continued demarcation, a vascular referral will be considered due to calcification, clinical signs, and amputation status. Medical management and DVT prophylaxis per Dr. Ivy is appreciated and noted. Pain controlled with norco or tylenol if needed; currently stable. Please do not hesitate to call with any questions. Stacie Finn DPM, FACF[facility] [phone]
[2021-02-04] MEDS: HYDROcodone Bitartrate/Apap 5/325 Tablet PO ×2 (07:03→16:24)
[2021-02-04] MEDS: Ondansetron ODT 4 MG Tablet PO ×2 (07:03→16:29)
--- NOTE | 2021-02-04 07:08 | NURSING ---
IN THIS MORNING TO CHANGE PT DRESSING TO LEFT FOOT. CINDI MUÑOZ/WOUND NURSE PRESENT.
[2021-02-04 07:22] LABS: Absolute Lymphocyte Count 3.88 X10^3/uL (0.83-4.51); Absolute Neutrophil Count 6.3 X10^3/uL (2.0-7.7); Basophil# 0.08 X10^3/uL; Basophil% 0.7 % (0-1); Eosinophil# 0.23 X10^3/uL; Eosinophils% 2.1 % (0-5); Hematocrit 29.5 % (37-47); Hemoglobin 9.1 g/dL (12.0-15.0); Lymphocyte # 3.88 X10^3/ul (4.0); Lymphocyte % 34.7 % (19-41); Mean Corp Hgb Conc 30.8 g/dL (32-36); Mean Corpuscular Hgb 30.1 pg (27.0-32.0); Mean Corpuscular Volume 97.7 fL (81-99); Mean Platelet Vol. 9.2 fl (6.2-12.0); Monocyte# 0.63 X10^3/uL; Monocyte% 5.6 % (0-10); NRBC Flagged by Analyzer 0 % (0-5); Neutrophil # 6.27 X10^3/uL (2.7-7.7); Neutrophil % 56.2 % (47-70); Platelet Count 429 K/mm3 (150-450); RBC Distribution Width CV 12.3 % (11.6-14.6); Red Blood Count 3.02 M/mm3 (4.2-5.4); White Blood Count 11.2 K/mm3 (4.4-11.0)
[2021-02-04 08:57] VITALS: BP 89/50; PULSE 95; O2SAT 97
[2021-02-04] MEDS: DAKIN'S SOL HALF STRENGTH (=0.25%) 1 APPLIC TOPICAL (09:05)
[2021-02-04] MEDS: Iron Polysaccharide Complex 150 MG CAPSULE PO (09:07)
[2021-02-04] MEDS: Juven (unflavored) Packet 1 PACKET PO ×2 (09:07→17:39)
--- NOTE | 2021-02-04 09:17 | NURSING ---
PT LIGHTHEADED WITH THERAPY. XLARGE AMOUNT OF DIARRHEA. VITALS DONE,RN AWARE.
[2021-02-04 10:00] VITALS: BP 120/50; PULSE 57; RESP 14; TEMP 36.6; O2SAT 96
[2021-02-04] MEDS: Linezolid 600 MG 600 MG/300 ML BAG 200 MG IV ×2 (10:22→22:23)
[2021-02-04 10:55] LABS: Bedside Glucose 194 mg/dL (70-110)
--- NOTE | 2021-02-04 14:26 | MDS.RN ---
Completed pain interview for rickey 02/06/21
[2021-02-04 15:00] VITALS: PULSE 75; RESP 18; O2SAT 97
[2021-02-04 16:36] LABS: Bedside Glucose 171 mg/dL (70-110)
[2021-02-04 22:00] VITALS: BP 117/61; PULSE 78; RESP 16; TEMP 36.6; O2SAT 96
[2021-02-04 22:10] LABS: Bedside Glucose 203 mg/dL (70-110)
[2021-02-04] MEDS: Gabapentin 600 MG Tablet PO (22:25)
[2021-02-05] MEDS: HYDROcodone Bitartrate/Apap 5/325 Tablet PO ×3 (00:22→17:06)
[2021-02-05] MEDS: Ondansetron ODT 4 MG Tablet PO ×3 (00:24→17:19)
[2021-02-05] MEDS: 0.9% Saline Lock 10 ML Syringe IV (00:29)
[2021-02-05 05:42] LABS: Absolute Lymphocyte Count 3.31 X10^3/uL (0.83-4.51); Absolute Neutrophil Count 5.2 X10^3/uL (2.0-7.7); Basophil% 1.1 % (0-1); Eosinophil# 0.12 X10^3/uL; Eosinophils% 1.3 % (0-5); Hematocrit 27.4 % (37-47); Hemoglobin 8.3 g/dL (12.0-15.0); Lymphocyte # 3.31 X10^3/ul (4.0); Lymphocyte % 35.2 % (19-41); Mean Corp Hgb Conc 30.3 g/dL (32-36); Mean Corpuscular Hgb 29.6 pg (27.0-32.0); Mean Corpuscular Volume 97.9 fL (81-99); Mean Platelet Vol. 9.5 fl (6.2-12.0); Monocyte# 0.61 X10^3/uL; Monocyte% 6.5 % (0-10); NRBC Flagged by Analyzer 0 % (0-5); Neutrophil % 55.2 % (47-70); Platelet Count 427 K/mm3 (150-450); RBC Distribution Width CV 12.4 % (11.6-14.6); RBC Distribution Width SD 44.6 fl (35.1-43.9); White Blood Count 9.4 K/mm3 (4.4-11.0)
[2021-02-05 06:00] VITALS: BP 160/75; PULSE 73; RESP 16; TEMP 36.7; O2SAT 97
[2021-02-05 06:08] LABS: ALB/GLOB Ratio 0.3 RATIO (0.9-2.4); AST(SGOT) 28 U/L (15-37); Alanine Aminotransfer ALT/SGPT 17 U/L (13-56); Albumin, Serum 1.7 g/dL (3.2-5.0); Alkaline Phosphatase 108 U/L (45-117); Anion Gap 2 (5-15); BUN 14 mg/dL (7-18); BUN/Creat Ratio 22.7 RATIO (10-20); Calcium,Total 8.1 mg/dL (8.5-10.1); Chloride 102 mmol/L (98-107); Creatinine, Serum 0.62 mg/dL (0.55-1.02); EST Glomerular Filtration Rate 103 mL/min (>60); Est Glom Filt Rate - Afr Amer 125 mL/min (>60); Estimated Creatinine Clearance 79.16 ml/min; Globulin 5.9 g/dL (2.2-4.2); Glucose 149 mg/dL (74-106); Potassium 3.9 mmol/L (3.5-5.1); Protein, Total 7.6 g/dL (6.4-8.2); Sodium Level 135 mmol/L (136-145)
--- NOTE | 2021-02-05 06:22 | PN_ITS ---
Patient Problems: Active and Suspected Problems Debility (Acute) Cellulitis of left foot (Acute) Osteomyelitis of left foot (Suspected) Abscess of left foot (Acute) Subjective: 65-year-old pleasant female seen bedside postoperative day #3 open 2, 3, 4, 5th ray resections with additional foot incision and drainage. She relates her pain is controlled with pain medications ordered. She denies fever, chill, nausea, vomiting, calf pain, shortness of breath, chest pain. She reports continued diarrhea and fatigue. We discussed her staged plan this morning. - Physical Exam Vitals/I&O's: Vital Signs Temp Pulse Resp BP Pulse Ox 97.8 F 78 16 117/61 96 02/04/21 22:00 02/04/21 22:00 02/04/21 22:00 02/04/21 22:00 02/04/21 22:00 Oxygen Delivery Method Room Air Weight: 67.81 kg Body Mass Index (BMI) 26.1 Orthostatic Vital Signs Start: 02/03/21 16:30 Freq: q24h Status: Active Protocol: Activity Type Activity Date Activity User E-Sign Co-Sign Detail Recorded Client Recorded Date Recorded By Document 02/03/21 16:30 ML [id number] 02/03/21 16:31 ML 02/03/21 16:30 Orthostatic Vitals Standing -Blood Pressure (90/60-120/80) 122/48 H -Extremity Use Right Arm -Pulse Rate (60-100) 81 Sitting -Blood Pressure (90/60-120/80) 117/62 -Extremity Use Right Arm -Pulse Rate (60-100) 76 Lying -Blood Pressure (90/60-120/80) 125/56 H -Extremity Use Right Arm -Pulse Rate (60-100) 71 Intake and Output for Last 24 Hours 02/03/21 02/04/21 02/05/21 23:59 23:59 23:59 Intake Total 2480 / 2480 1560 / 1560 Balance 2480 / 2480 1560 / 1560 General: Alert, Oriented x3, Cooperative HEENT: Atraumatic Extremities: No Calf Tenderness - Negative Faith and Mchugh sign left and right lower extremities, Edema - Decreased left lower extremity Skin: - - Dressing left foot clean, dry, and intact without adjacent redness, streaking, or odor. There is no strikethrough noted Musculoskeletal: Muscle Wasting, - - Left foot amputation noted. Compartments remain soft to palpate left lower extremity. Neurological: - - Lack of sensation to light touch Psych/Mental Status: Normal Affect, Appropriate Microbiology Past 72 Hours 02/01/21 19:43 Wound Abcess - Aerobic & Anaerobic Swabs Gram Stain - Final 02/01/21 19:43 Wound Abcess - Aerobic & Anaerobic Swabs Wound Culture - Final Staphylococcus aureus 02/01/21 19:43 Wound Abcess - Aerobic & Anaerobic Swabs Anaerobic Culture - Preliminary Laboratory Results 02/04/21 06:16: POC Glucose 123 H 02/04/21 07:14: WBC 11.2 H, RBC 3.02 L, Hgb 9.1 L, Hct 29.5 L, MCV 97.7, MCH 30.1, MCHC 30.8 L, RDW Std Deviation 44.0 H, RDW Coeff of Xin 12.3, Plt Count 429, MPV 9.2, Immature Gran % (Auto) 0.700, Neut % (Auto) 56.2, Lymph % (Auto) 34.7, Ada % (Auto) 5.6, Eos % (Auto) 2.1, Baso % (Auto) 0.7, Absolute Neuts (auto) 6.3, Absolute Lymphs (auto) 3.88, Nucleated RBC % 0 02/04/21 10:52: POC Glucose 194 H 02/04/21 16:31: POC Glucose 171 H 02/04/21 21:31: POC Glucose 203 H 02/05/21 05:15: WBC 9.4, RBC 2.80 L, Hgb 8.3 L, Hct 27.4 L, MCV 97.9, MCH 29.6, MCHC 30.3 L, RDW Std Deviation 44.6 H, RDW Coeff of Xin 12.4, Plt Count 427, MPV 9.5, Immature Gran % (Auto) 0.700, Neut % (Auto) 55.2, Lymph % (Auto) 35.2, Ada % (Auto) 6.5, Eos % (Auto) 1.3, Baso % (Auto) 1.1 H, Absolute Neuts (auto) 5.2, Absolute Lymphs (auto) 3.31, Nucleated RBC % 0 02/05/21 05:15: Sodium 135 L, Potassium 3.9, Chloride 102, Carbon Dioxide 31.0, Anion Gap 2 L, BUN 14, Creatinine 0.62, Estim Creat Clear Calc 79.16, Est GFR (MDRD) Af Amer 125, Est GFR (MDRD) Non-Af 103, BUN/Creatinine Ratio 22.7 H, Glucose 149 H, Calcium 8.1 L, Total Bilirubin 0.30, AST 28, ALT 17, Alkaline Phosphatase 108, Total Protein 7.6, Albumin 1.7 L, Globulin 5.9 H, Albumin/Globulin Ratio 0.3 L Current Medications Acetaminophen (Acetaminophen 500 Mg Tablet) 1,000 mg PO Q6H PRN PRN Reason: FEVER Acetaminophen (Acetaminophen 500 Mg Tablet) 500 mg PO Q6H PRN PRN PRN Reason: Pain Score 1-5 Hydrocodone Bitart/Acetaminophen (Hydrocodone Bitartrate/Apap 5/325 Tablet) 1 tablet PO Q6H PRN PRN PRN Reason: Pain Score 6-10 Last Admin: 02/05/21 00:22 Dose: 1 tablet Documented by: Albuterol Sulfate (Albuterol Sulfate 8 Gm Inhaler (60 Puffs)) 1 puff INHALATION Q4H PRN PRN PRN Reason: SHORTNESS OF BREATH Last Admin: 02/02/21 06:06 Dose: 1 puff Documented by: Aspirin (Aspirin 81 Mg Tab.Chew) 81 mg PO DAILY@0800 [facility] Calamine/Phenol (Menthol/Lanolin/Calamine/Znox 113 Gm Tube) 1 applic TOPICAL BID [facility]; Protocol Last Admin: 02/04/21 17:42 Dose: 1 applic Documented by: Gabapentin (Gabapentin 300 Mg Capsule) 300 mg PO BID [facility] Last Admin: 02/04/21 17:41 Dose: 300 mg Documented by: Gabapentin (Gabapentin 600 Mg Tablet) 600 mg PO QHS [facility] Last Admin: 02/04/21 22:25 Dose: 600 mg Documented by: Guaifenesin (Guaifenesin 600 Mg Tablet) 1,200 mg PO BID [facility] Last Admin: 02/04/21 17:41 Dose: 1,200 mg Documented by: Meropenem 1 gm/ Sodium (Chloride) 120 mls @ 33 mls/hr IV Q8 [facility] Last Admin: 02/05/21 00:27 Dose: 33 mls/hr Documented by: Linezolid (Zyvox 600mg) 600 mg in 300 mls @ 200 mls/hr IV Q12@1000,2200 [facility] Last Infusion: 02/04/21 23:53 Dose: Infused Documented by: L-Arginine/L-Glutamine/Calcium HMB (Alfredo (Unflavored) Packet) 1 packet PO BIDCM [facility] Last Admin: 02/04/21 17:39 Dose: 1 packet Documented by: Lactobacillus Acidophilus (Lactobacillus Acidophilus) 1 tablet PO DAILY [facility] Last Admin: 02/04/21 06:16 Dose: 1 tablet Documented by: Loperamide HCl (Loperamide 2 Mg Capsule) 4 mg PO 4X/DAY [facility] Last Admin: 02/04/21 22:23 Dose: 4 mg Documented by: Nystatin (Nystatin Powder 15gm Bottle) 1 applic TOPICAL TID [facility]; Protocol Last Admin: 02/04/21 22:24 Dose: 1 applic Documented by: Ondansetron HCl (Ondansetron Odt 4 Mg Tablet) 4 mg PO Q6H PRN PRN PRN Reason: NAUSEA Last Admin: 02/05/21 00:24 Dose: 4 mg Documented by: Pantoprazole Sodium (Pantoprazole Sodium 40 Mg Tablet) 40 mg PO BID [facility] Last Admin: 02/04/21 17:40 Dose: 40 mg Documented by: Polysaccharide Iron Complex (Iron Polysaccharide Complex 150 Mg Capsule) 150 mg PO DAILYCM [facility] Last Admin: 02/04/21 09:07 Dose: 150 mg Documented by: Fluticasone/Salmeterol (Fluticasone/Salmeterol 232-14 Inhaler) 1 puff INHALATION Q12 [facility] Last Admin: 02/04/21 17:43 Dose: 1 applic Documented by: Sodium Chloride (0.9 % Nacl (Sterile) Posiflush 10 Ml) 10 ml IV PRN PRN PRN Reason: maintain patency Last Admin: 02/02/21 01:18 Dose: 10 ml Documented by: Sodium Chloride (0.9% Normal Saline 250 Ml Iv.Soln.) 250 ml IV PRN PRN PRN Reason: flush atb post infusion and maintain patency Last Admin: 02/01/21 21:04 Dose: 250 ml Documented by: Sodium Chloride (0.9% Saline Lock 10 Ml Syringe) 10 - 40 ml IV UD PRN PRN Reason: SALINE FLUSH Last Admin: 02/05/21 00:29 Dose: 20 ml Documented by: Sodium Hypochlorite (Dakin's Ritika Half Strength (=0.25%)) 1 applic TOPICAL DAILY [facility]; Protocol Last Admin: 02/04/21 09:05 Dose: 1 applic Documented by: Tuberculin PPD (Tuberculin,Purif.Prot.Deriv. 50 Tu/Ml Vial) 5 tu ID [id number] ONE Stop: 02/07/21 10:01 Medical Necessity - Tobacco Use Smoking Status: Never smoker Tobacco Use: Non-smoker Assessment/Plan All Active Problems Debility (Acute) Cellulitis of left foot (Acute) Abscess of left foot (Acute) POD #3 open left foot 2, 3, 4, 5th ray resection with additional foot incision and drainage secondary to left mid and forefoot abscess and prior open forefoot amputation Diabetes with neuropathy Malnutrition suspected Other comorbidities: epilepsy, history of brain tumor, GERD I reviewed and discussed her case. She remains afebrile vitals are stable. White blood cell count decreased to 9.4. Dressing will be reapplied with Dakin wet-to-dry gauze, abdominal pad, Kerlix, and Demetrio wrap. To maintain a non weightbearing status of left lower extremity. She continues on meropenem and linezolid intravenously. Most recent bacterial growth from 02-01-21 demonstrate Staph aureus. Her prior cultures from infection at [facility] was MSSA. New updated intraoperative cultures were obtained from debrided nonviable tissue and also as an additional clearance fragment from the central metatarsal (sent to both pathology and microbiology). Continued diarrhea and h/o C-diff is also noted. Infectious disease is on consult and is greatly appreciated. She also had noninvasive vascular studies performed on 01-29-21 at [facility] with the following results: Right: Nonocclusive vessel due to calcification, no suspected arterial insufficiency based on Doppler and PVR, toe brachial index was not obtained due to patient movement Left: Nonocclusive vessel due to calcification, no suspected arterial insufficiency based on Doppler and PVR, toe brachial index was not obtained due to patient movement Reviewed case with vascular surgeon, Dr. Hugo. Arterial Doppler was ordered for the left lower extremity and will be reviewed to see if angio procedure is appropriate. Input is appreciated. Staged transmetatarsal amputation (open versus closed) is recommended with consideration of Achilles tendon percutaneous lengthening versus gastrocnemius recession will be considered if equinus if she continues to demarcate well without infection and maintains a stable medical status. The preoperative indication, planned procedure, benefits, risk, complications, anticipated healing time and management reviewed and discussed in detail. She understands risk and complications may include but not limited to the following: Pain, swelling, scarring, delayed healing, nonhealing, continued infection, need for further surgery, blood clot, allergic reaction, chronic pain, transfer lesion, tendon contracture, and ambulation difficulty, need for long-term bracing, loss of limb, function, life. No guarantees were made. She understands and elects to proceed in a staged manner within the next 1 to 2 weeks. Surgical date and time are to be determined. Anticipated anesthesia is general and local. Medical management and DVT prophylaxis per Dr. Ivy is appreciated and noted. Pain controlled with norco or tylenol if needed; currently stable. She consents to blood transfusion if needed. I do not suspect this is necessary at this time however she will be monitored for symptomatic anemia especially if additional blood loss is anticipated and surgical staged procedure. Her diarrhea and fatigue is also a concern that would ideally be optimized prior to proceeding forward with the next procedure. Please do not hesitate to call with any questions. Stacie Fnin DPM, [facility] [phone]
[2021-02-05 06:46] LABS: Bedside Glucose 131 mg/dL (70-110)
[2021-02-05] MEDS: Acetaminophen 500 MG Tablet PO ×2 (06:56→22:05)
[2021-02-05] MEDS: Loperamide 2 MG Capsule 4 MG PO ×4 (06:56→21:57)
[2021-02-05] MEDS: Gabapentin 300 MG Capsule PO ×2 (06:56→16:59)
[2021-02-05] MEDS: guaiFENesin 600 MG Tablet 1200 MG PO ×2 (06:56→16:59)
[2021-02-05] MEDS: Pantoprazole Sodium 40 MG Tablet PO ×2 (06:57→16:59)
[2021-02-05] MEDS: Nystatin Powder 15gm Bottle 1 APPLIC TOPICAL ×3 (06:59→22:08)
[2021-02-05] MEDS: Menthol/Lanolin/Calamine/Znox 113 GM Tube 1 APPLIC TOPICAL ×2 (06:59→17:00)
[2021-02-05] MEDS: 0.9% Normal Saline 250 ML IV.SOLN. IV (07:01)
[2021-02-05] MEDS: Fluticasone/Salmeterol 232-14 Inhaler 1 PUFF INHALATION ×2 (07:06→16:59)
[2021-02-05] MEDS: Juven (unflavored) Packet 1 PACKET PO ×2 (09:19→16:52)
[2021-02-05] MEDS: Iron Polysaccharide Complex 150 MG CAPSULE PO (09:19)
[2021-02-05] MEDS: Aspirin 81 MG TAB.CHEW PO (09:19)
[2021-02-05] MEDS: DAKIN'S SOL HALF STRENGTH (=0.25%) 1 APPLIC TOPICAL (09:19)
[2021-02-05] MEDS: Linezolid 600 MG 600 MG/300 ML BAG 200 MG IV ×2 (10:20→22:05)
[2021-02-05 10:55] LABS: Bedside Glucose 215 mg/dL (70-110)
--- NOTE | 2021-02-05 11:30 | CASEMGMT ---
BIMS and PHQ9 interviews completed on this date for MDS assessment. LETY Yu
--- NOTE | 2021-02-05 11:32 | NURSING ---
wound photo: left foot (lateral view)
--- NOTE | 2021-02-05 11:34 | NURSING ---
wound photo: left foot
--- NOTE | 2021-02-05 13:35 | NURSING ---
DR ARMSTRONG ORDERED ELIQUIS 10MG BID X7 DAYS AND 5MG BID FOR THREE MONTHS AFTER FOR DVT.
[2021-02-05 14:00] VITALS: BP 135/75; PULSE 76; RESP 16; TEMP 37.3; O2SAT 97
[2021-02-05] MEDS: APIXABAN 5 MG TABLET 10 MG PO (14:44)
--- NOTE | 2021-02-05 14:56 | NURSING ---
Dr. Ivy updated on doppler results, N.O. eliquis 10mg BID x7 days, then Eliquis 5mg BID x3 months, Dr. Finn updated on N.O. for eliquis and acute dvt if surgery is still planned to be scheduled will need order to hold delia Finn aware.
--- NOTE | 2021-02-05 16:14 | NURSING ---
Wound nurse changed pt wound dressing today
[2021-02-05 18:41] LABS: Bedside Glucose 186 mg/dL (70-110)
[2021-02-05 21:55] LABS: Bedside Glucose 157 mg/dL (70-110)
[2021-02-05] MEDS: Gabapentin 600 MG Tablet PO (21:57)
[2021-02-06 05:00] VITALS: BP 148/70; PULSE 70; RESP 16; TEMP 36.2; O2SAT 98
[2021-02-06] MEDS: 0.9% Saline Lock 10 ML Syringe IV ×4 (05:28→22:10)
[2021-02-06] MEDS: Loperamide 2 MG Capsule 4 MG PO ×4 (05:30→21:18)
[2021-02-06] MEDS: Pantoprazole Sodium 40 MG Tablet PO ×2 (05:30→17:52)
[2021-02-06] MEDS: APIXABAN 5 MG TABLET 10 MG PO ×2 (05:30→17:52)
[2021-02-06] MEDS: guaiFENesin 600 MG Tablet 1200 MG PO ×2 (05:30→17:52)
[2021-02-06] MEDS: Menthol/Lanolin/Calamine/Znox 113 GM Tube 1 APPLIC TOPICAL ×2 (05:30→17:53)
[2021-02-06] MEDS: Gabapentin 300 MG Capsule PO ×2 (05:30→17:52)
[2021-02-06] MEDS: Fluticasone/Salmeterol 232-14 Inhaler 1 PUFF INHALATION ×2 (05:31→17:52)
[2021-02-06] MEDS: Nystatin Powder 15gm Bottle 1 APPLIC TOPICAL (05:32)
[2021-02-06 06:45] LABS: Bedside Glucose 145 mg/dL (70-110)
[2021-02-06 07:54] LABS: Absolute Lymphocyte Count 2.92 X10^3/uL (0.83-4.51); Absolute Neutrophil Count 4.9 X10^3/uL (2.0-7.7); Basophil% 1.2 % (0-1); Eosinophil# 0.12 X10^3/uL; Eosinophils% 1.4 % (0-5); Hematocrit 28.1 % (37-47); Hemoglobin 8.7 g/dL (12.0-15.0); Lymphocyte # 2.92 X10^3/ul (4.0); Lymphocyte % 33.8 % (19-41); Mean Corpuscular Hgb 29.6 pg (27.0-32.0); Mean Corpuscular Volume 95.6 fL (81-99); Mean Platelet Vol. 9.3 fl (6.2-12.0); Monocyte# 0.58 X10^3/uL; Monocyte% 6.7 % (0-10); NRBC Flagged by Analyzer 0 % (0-5); Neutrophil # 4.87 X10^3/uL (2.7-7.7); Neutrophil % 56.4 % (47-70); Platelet Count 423 K/mm3 (150-450); RBC Distribution Width CV 12.4 % (11.6-14.6); RBC Distribution Width SD 43.2 fl (35.1-43.9); Red Blood Count 2.94 M/mm3 (4.2-5.4); White Blood Count 8.6 K/mm3 (4.4-11.0)
[2021-02-06 08:10] LABS: ALB/GLOB Ratio 0.3 RATIO (0.9-2.4); AST(SGOT) 31 U/L (15-37); Alanine Aminotransfer ALT/SGPT 19 U/L (13-56); Albumin, Serum 1.8 g/dL (3.2-5.0); Alkaline Phosphatase 113 U/L (45-117); Anion Gap 3 (5-15); BUN 18 mg/dL (7-18); Calcium,Total 8.3 mg/dL (8.5-10.1); Chloride 101 mmol/L (98-107); Creatinine, Serum 0.64 mg/dL (0.55-1.02); EST Glomerular Filtration Rate 99 mL/min (>60); Est Glom Filt Rate - Afr Amer 119 mL/min (>60); Estimated Creatinine Clearance 76.68 ml/min; Globulin 6.3 g/dL (2.2-4.2); Glucose 157 mg/dL (74-106); Potassium 4.2 mmol/L (3.5-5.1); Protein, Total 8.1 g/dL (6.4-8.2); Sodium Level 133 mmol/L (136-145)
[2021-02-06] MEDS: Iron Polysaccharide Complex 150 MG CAPSULE PO (08:55)
[2021-02-06] MEDS: Juven (unflavored) Packet 1 PACKET PO ×2 (08:56→17:52)
[2021-02-06] MEDS: Aspirin 81 MG TAB.CHEW PO (08:56)
[2021-02-06] MEDS: Linezolid 600 MG 600 MG/300 ML BAG 200 MG IV ×2 (10:33→22:09)
[2021-02-06] MEDS: HYDROcodone Bitartrate/Apap 5/325 Tablet PO (10:40)
[2021-02-06] MEDS: Ondansetron ODT 4 MG Tablet PO (11:01)
[2021-02-06] MEDS: DAKIN'S SOL HALF STRENGTH (=0.25%) 1 APPLIC TOPICAL (11:03)
--- NOTE | 2021-02-06 11:23 | PCM.PROGNOTE ---
Patient Problems: Active and Suspected Problems Debility (Acute) Cellulitis of left foot (Acute) Osteomyelitis of left foot (Suspected) Abscess of left foot (Acute) Subjective: 65-year-old pleasant female seen bedside postoperative day #4 open 2, 3, 4, 5th ray resections with additional foot incision and drainage. She relates her pain is controlled with pain medications ordered and is starting to decrease. She denies fever, chill, vomiting, calf pain, shortness of breath, chest pain. She reports continued diarrhea. She was diagnosed with a blood clot yesterday and was started on Eliquis. We discussed her staged plan again this morning. - Physical Exam Vitals/I&O's: Vital Signs Temp Pulse Resp BP Pulse Ox 97.2 F L 70 16 148/70 H 98 02/06/21 05:00 02/06/21 05:00 02/06/21 05:00 02/06/21 05:00 02/06/21 05:00 Oxygen Delivery Method Room Air Weight: 67.81 kg Body Mass Index (BMI) 26.1 Orthostatic Vital Signs Start: 02/03/21 16:30 Freq: Status: Active Protocol: Activity Type Activity Date Activity User E-Sign Co-Sign Detail Recorded Client Recorded Date Recorded By Document 02/03/21 16:30 ML [id number] 02/03/21 16:31 ML 02/03/21 16:30 Orthostatic Vitals Standing -Blood Pressure (90/60-120/80) 122/48 H -Extremity Use Right Arm -Pulse Rate (60-100) 81 Sitting -Blood Pressure (90/60-120/80) 117/62 -Extremity Use Right Arm -Pulse Rate (60-100) 76 Lying -Blood Pressure (90/60-120/80) 125/56 H -Extremity Use Right Arm -Pulse Rate (60-100) 71 Intake and Output for Last 24 Hours 02/04/21 02/05/21 02/06/21 23:59 23:59 23:59 Intake Total 1560 / 1560 1680 / 1680 716.05 / 716.05 Balance 1560 / 1560 1680 / 1680 716.05 / 716.05 General: Alert, Oriented x3, Cooperative HEENT: Atraumatic Extremities: Diminished Peripheral Pulses, Edema - Decreased left lower extremity, - - Decreased pain to palpate along the medial and posterior lower left leg compared to hospital admission. Skin: - - Open amputation site with continued dusky formation of the plantar lateral flap. The base of the wound is maintaining granular and moist base without purulence. Her erythema and streaking have resolved. There is no odor Musculoskeletal: Muscle Wasting, - - Left open amputation Neurological: - - Lack of full epicritic sensation is consistent with neuropathic status Psych/Mental Status: Normal Affect, Appropriate Microbiology Past 72 Hours 02/01/21 19:43 Wound Abcess - Aerobic & Anaerobic Swabs Gram Stain - Final 02/01/21 19:43 Wound Abcess - Aerobic & Anaerobic Swabs Wound Culture - Final Staphylococcus aureus 02/01/21 19:43 Wound Abcess - Aerobic & Anaerobic Swabs Anaerobic Culture - Final No anaerobic bacteria isolated. Laboratory Results 02/05/21 18:34: POC Glucose 186 H 02/05/21 21:41: POC Glucose 157 H 02/06/21 06:29: POC Glucose 145 H 02/06/21 07:24: WBC 8.6, RBC 2.94 L, Hgb 8.7 L, Hct 28.1 L, MCV 95.6, MCH 29.6, MCHC 31.0 L, RDW Std Deviation 43.2, RDW Coeff of Xin 12.4, Plt Count 423, MPV 9.3, Immature Gran % (Auto) 0.500, Neut % (Auto) 56.4, Lymph % (Auto) 33.8, [place] % (Auto) 6.7, Eos % (Auto) 1.4, Baso % (Auto) 1.2 H, Absolute Neuts (auto) 4.9, Absolute Lymphs (auto) 2.92, Nucleated RBC % 0 02/06/21 07:24: Sodium 133 L, Potassium 4.2, Chloride 101, Carbon Dioxide 29.0, Anion Gap 3 L, BUN 18, Creatinine 0.64, Estim Creat Clear Calc 76.68, Est GFR (MDRD) Af Amer 119, Est GFR (MDRD) Non-Af 99, BUN/Creatinine Ratio 28.0 H, Glucose 157 H, Calcium 8.3 L, Total Bilirubin 0.30, AST 31, ALT 19, Alkaline Phosphatase 113, Total Protein 8.1, Albumin 1.8 L, Globulin 6.3 H, Albumin/Globulin Ratio 0.3 L Current Medications Acetaminophen (Acetaminophen 500 Mg Tablet) 1,000 mg PO Q6H PRN PRN Reason: FEVER Acetaminophen (Acetaminophen 500 Mg Tablet) 500 mg PO Q6H PRN PRN PRN Reason: Pain Score 1-5 Last Admin: 02/05/21 22:05 Dose: 500 mg Documented by: Hydrocodone Bitart/Acetaminophen (Hydrocodone Bitartrate/Apap 5/325 Tablet) 1 tablet PO Q6H PRN PRN PRN Reason: Pain Score 6-10 Last Admin: 02/06/21 10:40 Dose: 1 tablet Documented by: Albuterol Sulfate (Albuterol Sulfate 8 Gm Inhaler (60 Puffs)) 1 puff INHALATION Q4H PRN PRN PRN Reason: SHORTNESS OF BREATH Last Admin: 02/02/21 06:06 Dose: 1 puff Documented by: Apixaban (Apixaban 5 Mg Tablet) 10 mg PO BID [facility] Stop: 02/12/21 18:01 Last Admin: 02/06/21 05:30 Dose: 10 mg Documented by: Apixaban (Apixaban 5 Mg Tablet) 5 mg PO BID [facility] Stop: 05/15/21 18:00 Aspirin (Aspirin 81 Mg Tab.Chew) 81 mg PO DAILY@0800 [facility] Last Admin: 02/06/21 08:56 Dose: 81 mg Documented by: Calamine/Phenol (Menthol/Lanolin/Calamine/Znox 113 Gm Tube) 1 applic TOPICAL BID [facility]; Protocol Last Admin: 02/06/21 05:30 Dose: 1 applic Documented by: Gabapentin (Gabapentin 300 Mg Capsule) 300 mg PO BID [facility] Last Admin: 02/06/21 05:30 Dose: 300 mg Documented by: Gabapentin (Gabapentin 600 Mg Tablet) 600 mg PO QHS [facility] Last Admin: 02/05/21 21:57 Dose: 600 mg Documented by: Guaifenesin (Guaifenesin 600 Mg Tablet) 1,200 mg PO BID [facility] Last Admin: 02/06/21 05:30 Dose: 1,200 mg Documented by: Meropenem 1 gm/ Sodium (Chloride) 120 mls @ 33 mls/hr IV Q8 [facility] Last Infusion: 02/06/21 09:00 Dose: Infused Documented by: Linezolid (Zyvox 600mg) 600 mg in 300 mls @ 200 mls/hr IV Q12@1000,2200 [facility] Last Admin: 02/06/21 10:33 Dose: 200 mls/hr Documented by: L-Arginine/L-Glutamine/Calcium HMB (Alfredo (Unflavored) Packet) [facility] Last Admin: 02/06/21 08:56 Dose: 1 packet Documented by: Lactobacillus Acidophilus (Lactobacillus Acidophilus) 1 tablet PO DAILY [facility] Last Admin: 02/06/21 05:30 Dose: 1 tablet Documented by: Loperamide HCl (Loperamide 2 Mg Capsule) 4 mg PO 4X/DAY [facility] Last Admin: 02/06/21 05:30 Dose: 4 mg Documented by: Nystatin (Nystatin Powder 15gm Bottle) 1 applic TOPICAL TID [facility]; Protocol Last Admin: 02/06/21 05:32 Dose: 1 applic Documented by: Ondansetron HCl (Ondansetron Odt 4 Mg Tablet) 4 mg PO Q6H PRN PRN PRN Reason: NAUSEA Last Admin: 02/06/21 11:01 Dose: 4 mg Documented by: Pantoprazole Sodium (Pantoprazole Sodium 40 Mg Tablet) 40 mg PO BID [facility] Last Admin: 02/06/21 05:30 Dose: 40 mg Documented by: Polysaccharide Iron Complex (Iron Polysaccharide Complex 150 Mg Capsule) [facility] Last Admin: 02/06/21 08:55 Dose: 150 mg Documented by: Fluticasone/Salmeterol (Fluticasone/Salmeterol 232-14 Inhaler) 1 puff INHALATION Q12 [facility] Last Admin: 02/06/21 05:31 Dose: 1 applic Documented by: Sodium Chloride (0.9 % Nacl (Sterile) Posiflush 10 Ml) 10 ml IV PRN PRN PRN Reason: maintain patency Last Admin: 02/02/21 01:18 Dose: 10 ml Documented by: Sodium Chloride (0.9% Normal Saline 250 Ml Iv.Soln.) 250 ml IV PRN PRN PRN Reason: flush atb post infusion and maintain patency Last Admin: 02/05/21 07:01 Dose: 250 ml Documented by: Sodium Chloride (0.9% Saline Lock 10 Ml Syringe) 10 - 40 ml IV UD PRN PRN Reason: SALINE FLUSH Last Admin: 02/06/21 05:28 Dose: 20 ml Documented by: Sodium Hypochlorite (Dakin's Ritika Half Strength (=0.25%)) 1 applic TOPICAL DAILY [facility]; Protocol Last Admin: 02/06/21 11:03 Dose: 1 applic Documented by: Tuberculin PPD (Tuberculin,Purif.Prot.Deriv. 50 Tu/Ml Vial) 5 tu ID [id number] ONE Stop: 02/07/21 10:01 Medical Necessity - Tobacco Use Smoking Status: Never smoker Tobacco Use: Non-smoker Assessment/Plan All Active Problems Debility (Acute) Cellulitis of left foot (Acute) Abscess of left foot (Acute) POD #4 open left foot 2, 3, 4, 5th ray resection with additional foot incision and drainage secondary to left mid and forefoot abscess and prior open forefoot amputation Diabetes with neuropathy Malnutrition suspected Deep venous thrombosis left posterior tibial vein Chronic diarrhea with history of C. difficile Other comorbidities: epilepsy, history of brain tumor, GERD I reviewed and discussed her case. She remains afebrile vitals are stable. White blood cell count decreased to 8.6. Lab trends will be followed including additional ESR and CRP ordered for tomorrow. Dressing will be reapplied with Dakin wet-to-dry gauze, abdominal pad, Kerlix, and Demetrio wrap to the left lower extremity. Inflammation and purulence resolved. The site continues to demarcate and has significantly improved from an infection standpoint. To maintain a non weightbearing status of left lower extremity. She continues on meropenem and linezolid intravenously. Most recent bacterial growth from 02-01-21 demonstrate MSSA only. Her prior cultures from infection at [facility] was also MSSA. New updated intraoperative cultures were obtained from debrided nonviable tissue and also as an additional clearance fragment from the central metatarsal (sent to both pathology and microbiology). Continued diarrhea and h/o C-diff is also noted. Infectious disease is on consult and is greatly appreciated. Per chart review, it is also noted she had recently been treated for esbl klebs urinary tract infection. She also had noninvasive vascular studies performed on 01-29-21 at [facility] with the following results with calcification noted and normal PVRs. This case was reviewed case with vascular surgeon, Dr. Hugo. Arterial Doppler was ordered for the left lower extremity and will be reviewed to see if angio procedure is appropriate given her partially viable amputation site and higher risk status. Consult was placed and input is greatly appreciated. Staged transmetatarsal amputation (open versus closed) is recommended with consideration of Achilles tendon percutaneous lengthening versus gastrocnemius recession will be considered if equinus if she continues to demarcate well without infection and maintains a stable medical status. Anticipated anesthesia is general and local. Her surgical consents were signed after this was discussed in length yesterday. It is noted her hemoglobins are running in the upper eights and lower 9 level and she was additionally diagnosed with a deep venous thrombosis of the posterior tibial vein. She was started on Eliquis at this time. For this reason, I recommend holding off on staged foot surgery next week to allow continuation of anticoagulation medication. The timing of this will be discussed with medical team. The procedure could be done without a tourniquet however additional bleeding would be anticipated. I recommend continued medical stability prior to proceeding forward with a goal time of within the next month. Medical management per Dr. Ivy is appreciated and noted. Pain controlled with norco or tylenol if needed; currently stable. Her diarrhea and fatigue is also a concern that would ideally be optimized prior to proceeding forward with the next procedure. Case discussed with Dr. Ivy. C-diff stool test will be ordered. Please do not hesitate to call with any questions. Stacie Finn DPM, FACFAS [facility] [phone]
[2021-02-06 11:31] LABS: Bedside Glucose 222 mg/dL (70-110)
--- NOTE | 2021-02-06 12:28 | NURSING ---
Dr Ivy calls and states that Dr Finn called and reported that resident has diarrhea. He realizes that her diarrhea might be chronic but is on some powerful antibiotics so wanted to check her stool for cdiff. CINDI Calzada aware of order.
[2021-02-06 13:53] VITALS: BP 153/73; PULSE 76; RESP 16; TEMP 36.6; O2SAT 96
[2021-02-06 16:26] LABS: Bedside Glucose 181 mg/dL (70-110)
--- NOTE | 2021-02-06 16:30 | NURSING ---
Dr Finn was in today and changed LT foot drsg.
--- NOTE | 2021-02-06 18:19 | NURSING ---
pt updated that stool negative for cdiff. pt glad.
--- NOTE | 2021-02-06 20:43 | NURSING ---
Pt incontinent of mod amout of loose, brown stool. Pericare completed per this nurse. Calmospetine applied to coccyx, gluteal folds, groin, and labia per pt request. Skin to groin and labia intact. New depend applied. Bed pad changed. Positioned for comfort. Call light w/ in reach. Bed in lowest position. Given a cup of broth per request d/t upset stomach and decreased po intake. Three packs of saltine crackers aslo given to pt.
[2021-02-06] MEDS: Gabapentin 600 MG Tablet PO (21:18)
[2021-02-06] MEDS: Acetaminophen 500 MG Tablet PO (21:25)
[2021-02-06 21:30] LABS: Bedside Glucose 174 mg/dL (70-110)
[2021-02-07 05:00] VITALS: BP 137/65; PULSE 67; RESP 16; TEMP 36.9; O2SAT 94
[2021-02-07 05:26] LABS: Absolute Lymphocyte Count 3.53 X10^3/uL (0.83-4.51); Absolute Neutrophil Count 3.1 X10^3/uL (2.0-7.7); Basophil# 0.09 X10^3/uL; Basophil% 1.2 % (0-1); Eosinophil# 0.11 X10^3/uL; Eosinophils% 1.5 % (0-5); Hematocrit 27.7 % (37-47); Hemoglobin 8.7 g/dL (12.0-15.0); Lymphocyte # 3.53 X10^3/ul (4.0); Lymphocyte % 47.8 % (19-41); Mean Corp Hgb Conc 31.4 g/dL (32-36); Mean Corpuscular Hgb 30.2 pg (27.0-32.0); Mean Corpuscular Volume 96.2 fL (81-99); Mean Platelet Vol. 9.1 fl (6.2-12.0); Monocyte% 6.8 % (0-10); NRBC Flagged by Analyzer 0 % (0-5); Neutrophil # 3.13 X10^3/uL (2.7-7.7); Neutrophil % 42.3 % (47-70); Platelet Count 402 K/mm3 (150-450); RBC Distribution Width CV 12.3 % (11.6-14.6); Red Blood Count 2.88 M/mm3 (4.2-5.4); White Blood Count 7.4 K/mm3 (4.4-11.0)
[2021-02-07 05:35] LABS: Erythrocyte Sedimentation Rate 74 mm/hr (0-30)
[2021-02-07] MEDS: Pantoprazole Sodium 40 MG Tablet PO ×2 (05:38→17:42)
[2021-02-07] MEDS: guaiFENesin 600 MG Tablet 1200 MG PO ×2 (05:38→17:43)
[2021-02-07] MEDS: Gabapentin 300 MG Capsule PO ×2 (05:38→17:43)
[2021-02-07] MEDS: Loperamide 2 MG Capsule 4 MG PO ×4 (05:39→21:44)
[2021-02-07] MEDS: APIXABAN 5 MG TABLET 10 MG PO ×2 (05:39→17:43)
[2021-02-07] MEDS: Menthol/Lanolin/Calamine/Znox 113 GM Tube 1 APPLIC TOPICAL ×2 (05:39→17:46)
[2021-02-07 05:44] LABS: ALB/GLOB Ratio 0.3 RATIO (0.9-2.4); AST(SGOT) 36 U/L (15-37); Alanine Aminotransfer ALT/SGPT 19 U/L (13-56); Albumin, Serum 1.7 g/dL (3.2-5.0); Alkaline Phosphatase 109 U/L (45-117); Anion Gap 4 (5-15); BUN 22 mg/dL (7-18); BUN/Creat Ratio 36.4 RATIO (10-20); Calcium,Total 8.3 mg/dL (8.5-10.1); Chloride 100 mmol/L (98-107); EST Glomerular Filtration Rate 106 mL/min (>60); Est Glom Filt Rate - Afr Amer 128 mL/min (>60); Estimated Creatinine Clearance 80.72 ml/min; Globulin 6.2 g/dL (2.2-4.2); Glucose 132 mg/dL (74-106); Protein, Total 7.9 g/dL (6.4-8.2); Sodium Level 134 mmol/L (136-145)
[2021-02-07] MEDS: Fluticasone/Salmeterol 232-14 Inhaler 1 PUFF INHALATION ×2 (05:44→17:45)
[2021-02-07 06:26] LABS: Bedside Glucose 145 mg/dL (70-110)
--- NOTE | 2021-02-07 09:07 | PCM.PROGNOTE ---
Patient Problems: Active and Suspected Problems Debility (Acute) Cellulitis of left foot (Acute) Osteomyelitis of left foot (Suspected) Abscess of left foot (Acute) Subjective: 65-year-old pleasant female seen bedside postoperative day #5 open 2, 3, 4, 5th ray resections with additional foot incision and drainage. She denies pain overnight or this morning. She denies fever, chill, vomiting, shortness of breath, chest pain. She is being treated for acute left lower leg deep venous thrombosis and denies calf pain this morning. She continues on Eliquis. - Physical Exam Vitals/I&O's: Vital Signs Temp Pulse Resp BP Pulse Ox 98.4 F 67 16 137/65 H 94 02/07/21 05:00 02/07/21 05:00 02/07/21 05:00 02/07/21 05:00 02/07/21 05:00 Oxygen Delivery Method Room Air Weight: 67.81 kg Body Mass Index (BMI) 26.1 Orthostatic Vital Signs Start: 02/03/21 16:30 Freq: Status: Active Protocol: Activity Type Activity Date Activity User E-Sign Co-Sign Detail Recorded Client Recorded Date Recorded By Document 02/03/21 16:30 ML [id number] 02/03/21 16:31 ML 02/03/21 16:30 Orthostatic Vitals Standing -Blood Pressure (90/60-120/80) 122/48 H -Extremity Use Right Arm -Pulse Rate (60-100) 81 Sitting -Blood Pressure (90/60-120/80) 117/62 -Extremity Use Right Arm -Pulse Rate (60-100) 76 Lying -Blood Pressure (90/60-120/80) 125/56 H -Extremity Use Right Arm -Pulse Rate (60-100) 71 Intake and Output for Last 24 Hours 02/05/21 02/06/21 02/07/21 23:59 23:59 23:59 Intake Total 1680 / 1680 1915. / 1915. 480 / 480 Balance 1680 / 1680 480 / 480 General: Alert, Oriented x3, Cooperative Extremities: Diminished Peripheral Pulses, Edema - Decreased left lower extremity, - - Demarcation with duskiness of plantar and lateral aspect of the open amputation site left lower extremity Skin: Ulcer/ Wound - Open amputation site without purulence, odor, erythema, streaking. The base is granular with minimal devitalized plantar tissue. No fluctuance on palpation or additional bogginess or crepitus. No maceration. Musculoskeletal: Muscle Wasting, Tenderness - Wound manipulation Neurological: - - Lack of normal epicritic sensation light touch is consistent with neuropathic status. Psych/Mental Status: Normal Affect, Appropriate Microbiology Past 72 Hours 02/06/21 15:30 Stool C. difficile DNA Amplification - Final 02/01/21 19:43 Wound Abcess - Aerobic & Anaerobic Swabs Gram Stain - Final 02/01/21 19:43 Wound Abcess - Aerobic & Anaerobic Swabs Wound Culture - Final Staphylococcus aureus 02/01/21 19:43 Wound Abcess - Aerobic & Anaerobic Swabs Anaerobic Culture - Final No anaerobic bacteria isolated. Laboratory Results 02/06/21 11:20: POC Glucose 222 H 02/06/21 16:19: POC Glucose 181 H 02/06/21 21:16: POC Glucose 174 H 02/07/21 05:08: WBC 7.4, RBC 2.88 L, Hgb 8.7 L, Hct 27.7 L, MCV 96.2, MCH 30.2, MCHC 31.4 L, RDW Std Deviation 43.0, RDW Coeff of Xin 12.3, Plt Count 402, MPV 9.1, Immature Gran % (Auto) 0.400, Neut % (Auto) 42.3 L, Lymph % (Auto) 47.8 H, [place] % (Auto) 6.8, Eos % (Auto) 1.5, Baso % (Auto) 1.2 H, Absolute Neuts (auto) 3.1, Absolute Lymphs (auto) 3.53, Nucleated RBC % 0, ESR 74 H 02/07/21 05:08: Sodium 134 L, Potassium 4.0, Chloride 100, Carbon Dioxide 30.0, Anion Gap 4 L, BUN 22 H, Creatinine 0.60, Estim Creat Clear Calc 80.72, Est GFR (MDRD) Af Amer 128, Est GFR (MDRD) Non-Af 106, BUN/Creatinine Ratio 36.4 H, Glucose 132 H, Calcium 8.3 L, Total Bilirubin 0.20, AST 36, ALT 19, Alkaline Phosphatase 109, C-React Prot Ext Range 17.00 H, Total Protein 7.9, Albumin 1.7 L, Globulin 6.2 H, Albumin/Globulin Ratio 0.3 L 02/07/21 06:22: POC Glucose 145 H Current Medications Acetaminophen (Acetaminophen 500 Mg Tablet) 1,000 mg PO Q6H PRN PRN Reason: FEVER Acetaminophen (Acetaminophen 500 Mg Tablet) 500 mg PO Q6H PRN PRN PRN Reason: Pain Score 1-5 Last Admin: 02/06/21 21:25 Dose: 500 mg Documented by: Hydrocodone Bitart/Acetaminophen (Hydrocodone Bitartrate/Apap 5/325 Tablet) 1 tablet PO Q6H PRN PRN PRN Reason: Pain Score 6-10 Last Admin: 02/06/21 10:40 Dose: 1 tablet Documented by: Albuterol Sulfate (Albuterol Sulfate 8 Gm Inhaler (60 Puffs)) 1 puff INHALATION Q4H PRN PRN PRN Reason: SHORTNESS OF BREATH Last Admin: 02/02/21 06:06 Dose: 1 puff Documented by: Apixaban (Apixaban 5 Mg Tablet) 10 mg PO BID [facility] Stop: 02/12/21 18:01 Last Admin: 02/07/21 05:39 Dose: 10 mg Documented by: Apixaban (Apixaban 5 Mg Tablet) 5 mg PO BID [facility] Stop: 05/15/21 18:00 Aspirin (Aspirin 81 Mg Tab.Chew) 81 mg PO DAILY@0800 [facility] Last Admin: 02/06/21 08:56 Dose: 81 mg Documented by: Calamine/Phenol (Menthol/Lanolin/Calamine/Znox 113 Gm Tube) 1 applic TOPICAL BID [facility]; Protocol Last Admin: 02/07/21 05:39 Dose: 1 applic Documented by: Gabapentin (Gabapentin 300 Mg Capsule) 300 mg PO BID [facility] Last Admin: 02/07/21 05:38 Dose: 300 mg Documented by: Gabapentin (Gabapentin 600 Mg Tablet) 600 mg PO QHS [facility] Last Admin: 02/06/21 21:18 Dose: 600 mg Documented by: Guaifenesin (Guaifenesin 600 Mg Tablet) 1,200 mg PO BID [facility] Last Admin: 02/07/21 05:38 Dose: 1,200 mg Documented by: Meropenem 1 gm/ Sodium (Chloride) 120 mls @ 33 mls/hr IV Q8 [facility] Last Admin: 02/07/21 06:22 Dose: 33 mls/hr Documented by: Linezolid (Zyvox 600mg) 600 mg in 300 mls @ 200 mls/hr IV Q12@1000,2200 [facility] Last Infusion: 02/06/21 23:39 Dose: Infused Documented by: L-Arginine/L-Glutamine/Calcium HMB (Alfredo (Unflavored) Packet) 1 packet PO BIDCM [facility] Last Admin: 02/06/21 17:52 Dose: 1 packet Documented by: Lactobacillus Acidophilus (Lactobacillus Acidophilus) 1 tablet PO DAILY [facility] Last Admin: 02/07/21 05:39 Dose: 1 tablet Documented by: Loperamide HCl (Loperamide 2 Mg Capsule) 4 mg PO 4X/DAY [facility] Last Admin: 02/07/21 05:39 Dose: 4 mg Documented by: Nystatin (Nystatin Powder 15gm Bottle) 1 applic TOPICAL TID [facility]; Protocol Last Admin: 02/07/21 05:39 Dose: Not Given Documented by: Ondansetron HCl (Ondansetron Odt 4 Mg Tablet) 4 mg PO Q6H PRN PRN PRN Reason: NAUSEA Last Admin: 02/06/21 11:01 Dose: 4 mg Documented by: Pantoprazole Sodium (Pantoprazole Sodium 40 Mg Tablet) 40 mg PO BID [facility] Last Admin: 02/07/21 05:38 Dose: 40 mg Documented by: Polysaccharide Iron Complex (Iron Polysaccharide Complex 150 Mg Capsule) 150 mg PO DAILYCM [facility] Last Admin: 02/06/21 08:55 Dose: 150 mg Documented by: Fluticasone/Salmeterol (Fluticasone/Salmeterol 232-14 Inhaler) 1 puff INHALATION Q12 [facility] Last Admin: 02/07/21 05:44 Dose: 1 applic Documented by: Sodium Chloride (0.9 % Nacl (Sterile) Posiflush 10 Ml) 10 ml IV PRN PRN PRN Reason: maintain patency Last Admin: 02/02/21 01:18 Dose: 10 ml Documented by: Sodium Chloride (0.9% Normal Saline 250 Ml Iv.Soln.) 250 ml IV PRN PRN PRN Reason: flush atb post infusion and maintain patency Last Admin: 02/05/21 07:01 Dose: 250 ml Documented by: Sodium Chloride (0.9% Saline Lock 10 Ml Syringe) 10 - 40 ml IV UD PRN PRN Reason: SALINE FLUSH Last Admin: 02/06/21 22:10 Dose: 20 ml Documented by: Sodium Hypochlorite (Dakin's Ritika Half Strength (=0.25%)) 1 applic TOPICAL DAILY [facility]; Protocol Last Admin: 02/06/21 11:03 Dose: 1 applic Documented by: Tuberculin PPD (Tuberculin,Purif.Prot.Deriv. 50 Tu/Ml Vial) 5 tu ID [id number] ONE Stop: 02/07/21 10:01 Medical Necessity - Tobacco Use Smoking Status: Never smoker Tobacco Use: Non-smoker Assessment/Plan All Active Problems Debility (Acute) Cellulitis of left foot (Acute) Abscess of left foot (Acute) POD #5 open left foot 2, 3, 4, 5th ray resection with additional foot incision and drainage secondary to left mid and forefoot abscess and prior open forefoot amputation Diabetes with neuropathy Malnutrition suspected Deep venous thrombosis left posterior tibial vein Chronic diarrhea with history of C. difficile Other comorbidities: epilepsy, history of brain tumor, GERD I reviewed and discussed her case. She remains afebrile vitals are stable. White blood cell count decreased to 7.4. ESR is 74 and C-reactive protein of 17. Dressing was reapplied with Dakin wet-to-dry gauze, abdominal pad, Kerlix, and Demetrio wrap to the left lower extremity. Inflammation and purulence resolved. The site continues to demarcate and has significantly improved from an infection standpoint. I recommend application of wound VAC tomorrow. To maintain a non weightbearing status of left lower extremity. She continues on meropenem and linezolid intravenously. Most recent bacterial growth from 02-01-21 demonstrate MSSA only. Her prior cultures from infection at [facility] was also MSSA. New updated intraoperative cultures were obtained from debrided nonviable tissue and also as an additional clearance fragment from the central metatarsal (sent to both pathology and microbiology). Continued diarrhea and h/o C-diff is also noted. Infectious disease is on consult and is greatly appreciated. Per chart review, it is also noted she had recently been treated for esbl klebs urinary tract infection. Vessel calcification noted on arterial studies. Updated arterial Doppler performed. Vascular surgery consult for next week and is greatly appreciated. Staged transmetatarsal amputation (open versus closed) is recommended with consideration of Achilles tendon percutaneous lengthening versus gastrocnemius recession will be considered if equinus if she continues to demarcate well without infection and maintains a stable medical status. Anticipated anesthesia is general and local. I recommend holding off on staged foot surgery next week to allow continuation of anticoagulation medication for treatment of acute DVT. The timing of this will be discussed with medical team. The procedure could be done without a tourniquet however additional bleeding would be anticipated. I recommend continued medical stability prior to proceeding forward with a goal time of within the next month. Medical management per Dr. Ivy is appreciated and noted. Pain controlled with norco or tylenol if needed; currently stable. Updated C. difficile negative. Please do not hesitate to call with any questions. The podiatry team will continue to follow her closely while in the transitional care unit. Stacie Finn DPM, [facility] [phone]
[2021-02-07] MEDS: Iron Polysaccharide Complex 150 MG CAPSULE PO (09:51)
[2021-02-07] MEDS: Aspirin 81 MG TAB.CHEW PO (09:51)
[2021-02-07] MEDS: Juven (unflavored) Packet 1 PACKET PO ×2 (09:51→17:43)
[2021-02-07] MEDS: DAKIN'S SOL HALF STRENGTH (=0.25%) 1 APPLIC TOPICAL (09:56)
[2021-02-07 10:00] VITALS: RESP 16
[2021-02-07] MEDS: Linezolid 600 MG 600 MG/300 ML BAG 200 MG IV ×2 (10:43→22:01)
[2021-02-07 11:01] LABS: Bedside Glucose 200 mg/dL (70-110)
[2021-02-07] MEDS: Tuberculin,Purif.prot.deriv. 50 TU/ML Vial 5 ML ID (12:38)
[2021-02-07 14:44] VITALS: BP 124/56; RESP 17; TEMP 22.7; O2SAT 96
[2021-02-07] MEDS: Nystatin Powder 15gm Bottle 1 APPLIC TOPICAL (14:52)
[2021-02-07 16:16] LABS: Bedside Glucose 131 mg/dL (70-110)
[2021-02-07 21:31] LABS: Bedside Glucose 229 mg/dL (70-110)
[2021-02-07] MEDS: Gabapentin 600 MG Tablet PO (21:44)
[2021-02-07] MEDS: 0.9% Saline Lock 10 ML Syringe IV (22:02)
[2021-02-07] MEDS: 0.9% Normal Saline 250 ML IV.SOLN. IV (22:02)
[2021-02-07] MEDS: Ondansetron ODT 4 MG Tablet PO (22:02)
[2021-02-07] MEDS: HYDROcodone Bitartrate/Apap 5/325 Tablet PO (22:03)
[2021-02-08 05:00] VITALS: BP 145/70; PULSE 67; RESP 16; TEMP 36.5; O2SAT 98
[2021-02-08] MEDS: guaiFENesin 600 MG Tablet 1200 MG PO ×2 (05:26→17:07)
[2021-02-08] MEDS: APIXABAN 5 MG TABLET 10 MG PO ×2 (05:26→17:07)
[2021-02-08] MEDS: Loperamide 2 MG Capsule 4 MG PO ×4 (05:26→21:12)
[2021-02-08] MEDS: Pantoprazole Sodium 40 MG Tablet PO ×2 (05:27→17:07)
[2021-02-08] MEDS: Gabapentin 300 MG Capsule PO ×2 (05:27→17:07)
[2021-02-08] MEDS: Fluticasone/Salmeterol 232-14 Inhaler 1 PUFF INHALATION ×2 (05:28→17:08)
[2021-02-08] MEDS: Menthol/Lanolin/Calamine/Znox 113 GM Tube 1 APPLIC TOPICAL ×2 (05:28→17:06)
--- NOTE | 2021-02-08 05:38 | NURSING ---
Patient states, nystatin powder doesn't help her would like for it to be discontinued.
[2021-02-08] MEDS: Acetaminophen 500 MG Tablet PO (05:49)
[2021-02-08 05:50] LABS: Absolute Lymphocyte Count 3.47 X10^3/uL (0.83-4.51); Absolute Neutrophil Count 2.4 X10^3/uL (2.0-7.7); Basophil# 0.09 X10^3/uL; Basophil% 1.4 % (0-1); Eosinophil# 0.12 X10^3/uL; Eosinophils% 1.8 % (0-5); Hematocrit 29.1 % (37-47); Hemoglobin 8.8 g/dL (12.0-15.0); Lymphocyte # 3.47 X10^3/ul (4.0); Lymphocyte % 52.4 % (19-41); Mean Corp Hgb Conc 30.2 g/dL (32-36); Mean Corpuscular Hgb 28.9 pg (27.0-32.0); Mean Corpuscular Volume 95.7 fL (81-99); Mean Platelet Vol. 9.2 fl (6.2-12.0); Monocyte% 7.6 % (0-10); NRBC Flagged by Analyzer 0 % (0-5); Neutrophil # 2.42 X10^3/uL (2.7-7.7); Neutrophil % 36.5 % (47-70); Platelet Count 363 K/mm3 (150-450); RBC Distribution Width CV 12.3 % (11.6-14.6); RBC Distribution Width SD 43.1 fl (35.1-43.9); Red Blood Count 3.04 M/mm3 (4.2-5.4); White Blood Count 6.6 K/mm3 (4.4-11.0)
[2021-02-08 06:21] LABS: Bedside Glucose 130 mg/dL (70-110)
[2021-02-08 06:22] LABS: ALB/GLOB Ratio 0.3 RATIO (0.9-2.4); AST(SGOT) 37 U/L (15-37); Alanine Aminotransfer ALT/SGPT 20 U/L (13-56); Albumin, Serum 1.7 g/dL (3.2-5.0); Alkaline Phosphatase 110 U/L (45-117); Anion Gap 3 (5-15); BUN 25 mg/dL (7-18); BUN/Creat Ratio 40.5 RATIO (10-20); Calcium,Total 8.4 mg/dL (8.5-10.1); Chloride 99 mmol/L (98-107); Creatinine, Serum 0.62 mg/dL (0.55-1.02); EST Glomerular Filtration Rate 103 mL/min (>60); Est Glom Filt Rate - Afr Amer 125 mL/min (>60); Estimated Creatinine Clearance 78.12 ml/min; Globulin 6.1 g/dL (2.2-4.2); Glucose 133 mg/dL (74-106); Potassium 4.2 mmol/L (3.5-5.1); Protein, Total 7.8 g/dL (6.4-8.2); Sodium Level 133 mmol/L (136-145)
[2021-02-08] MEDS: Aspirin 81 MG TAB.CHEW PO (08:32)
[2021-02-08] MEDS: Iron Polysaccharide Complex 150 MG CAPSULE PO (08:32)
[2021-02-08] MEDS: Juven (unflavored) Packet 1 PACKET PO ×2 (08:33→17:06)
--- NOTE | 2021-02-08 08:47 | NURSING ---
wound photo: left foot
--- NOTE | 2021-02-08 08:49 | NURSING ---
wound photo: left foot (lateral view)
[2021-02-08] MEDS: Linezolid 600 MG 600 MG/300 ML BAG 200 MG IV (10:37)
[2021-02-08 11:10] LABS: Bedside Glucose 196 mg/dL (70-110)
--- NOTE | 2021-02-08 11:15 | PCM.PROGNOTE ---
Patient Problems: Active and Suspected Problems Debility (Acute) Cellulitis of left foot (Acute) Osteomyelitis of left foot (Suspected) Abscess of left foot (Acute) Subjective: Patient seen and examined resting comfortably. Patient denies any new pedal complaints. Patient denies any nausea, fever, chills, chest pain, shortness of breath, cough, streaking, purulence, vomiting. - Physical Exam Vitals/I&O's: Vital Signs Temp Pulse Resp BP Pulse Ox 97.7 F L 67 16 145/70 H 98 02/08/21 05:00 02/08/21 05:00 02/08/21 05:00 02/08/21 05:00 02/08/21 05:00 Oxygen Delivery Method Room Air Weight: 67.81 kg Body Mass Index (BMI) 26.1 Orthostatic Vital Signs Start: 02/03/21 16:30 Freq: Status: Active Protocol: Activity Type Activity Date Activity User E-Sign Co-Sign Detail Recorded Client Recorded Date Recorded By Document 02/03/21 16:30 ML [id number] 02/03/21 16:31 ML 02/03/21 16:30 Orthostatic Vitals Standing -Blood Pressure (90/60-120/80) 122/48 H -Extremity Use Right Arm -Pulse Rate (60-100) 81 Sitting -Blood Pressure (90/60-120/80) 117/62 -Extremity Use Right Arm -Pulse Rate (60-100) 76 Lying -Blood Pressure (90/60-120/80) 125/56 H -Extremity Use Right Arm -Pulse Rate (60-100) 71 Intake and Output for Last 24 Hours 02/06/21 02/07/21 02/08/21 23:59 23:59 23:59 Intake Total 1915. 1680 / 1680 240 / 240 Output Total 300 / 300 Balance 1380 / 1380 240 / 240 General: Alert, Oriented x3 HEENT: Atraumatic Extremities: No clubbing, No edema, Capillary Refill Less than 3 Seconds, No Calf Tenderness, Cool - Area to lateral aspect of the wound with some pallor and duskiness, Diminished Peripheral Pulses Skin: Ulcer/ Wound - Left foot. Wound encompassing distal aspect of left foot. Patient has amputation is noted to ray 2 through 5. This is open to bone. Granular base. No purulent drainage expressed. Serosanguineous drainage noted. No malodor, - Musculoskeletal: No Tenderness to Palpation of Joints or Extremities Neurological: - - Decrease in epicritic sensation Psych/Mental Status: Normal Affect, Appropriate Microbiology Past 72 Hours 02/06/21 15:30 Stool C. difficile DNA Amplification - Final Laboratory Results 02/07/21 16:03: POC Glucose 131 H 02/07/21 21:26: POC Glucose 229 H 02/08/21 05:05: WBC 6.6, RBC 3.04 L, Hgb 8.8 L, Hct 29.1 L, MCV 95.7, MCH 28.9, MCHC 30.2 L, RDW Std Deviation 43.1, RDW Coeff of Xin 12.3, Plt Count 363, MPV 9.2, Immature Gran % (Auto) 0.300, Neut % (Auto) 36.5 L, Lymph % (Auto) 52.4 H, [place] % (Auto) 7.6, Eos % (Auto) 1.8, Baso % (Auto) 1.4 H, Absolute Neuts (auto) 2.4, Absolute Lymphs (auto) 3.47, Nucleated RBC % 0 02/08/21 05:05: Sodium 133 L, Potassium 4.2, Chloride 99, Carbon Dioxide 31.0, Anion Gap 3 L, BUN 25 H, Creatinine 0.62, Estim Creat Clear Calc 78.12, Est GFR (MDRD) Af Amer 125, Est GFR (MDRD) Non-Af 103, BUN/Creatinine Ratio 40.5 H, Glucose 133 H, Calcium 8.4 L, Total Bilirubin 0.20, AST 37, ALT 20, Alkaline Phosphatase 110, Total Protein 7.8, Albumin 1.7 L, Globulin 6.1 H, Albumin/Globulin Ratio 0.3 L 02/08/21 06:16: POC Glucose 130 H 02/08/21 10:56: POC Glucose 196 H Current Medications Acetaminophen (Acetaminophen 500 Mg Tablet) 1,000 mg PO Q6H PRN PRN Reason: FEVER Acetaminophen (Acetaminophen 500 Mg Tablet) 500 mg PO Q6H PRN PRN PRN Reason: Pain Score 1-5 Last Admin: 02/08/21 05:49 Dose: 500 mg Documented by: Hydrocodone Bitart/Acetaminophen (Hydrocodone Bitartrate/Apap 5/325 Tablet) 1 tablet PO Q6H PRN PRN PRN Reason: Pain Score 6-10 Last Admin: 02/07/21 22:03 Dose: 1 tablet Documented by: Albuterol Sulfate (Albuterol Sulfate 8 Gm Inhaler (60 Puffs)) 1 puff INHALATION Q4H PRN PRN PRN Reason: SHORTNESS OF BREATH Last Admin: 02/02/21 06:06 Dose: 1 puff Documented by: Apixaban (Apixaban 5 Mg Tablet) 10 mg PO BID [facility] Stop: 02/12/21 18:01 Last Admin: 02/08/21 05:26 Dose: 10 mg Documented by: Apixaban (Apixaban 5 Mg Tablet) 5 mg PO BID [facility] Stop: 05/15/21 18:00 Aspirin (Aspirin 81 Mg Tab.Chew) 81 mg PO DAILY@0800 [facility] Last Admin: 02/08/21 08:32 Dose: 81 mg Documented by: Calamine/Phenol (Menthol/Lanolin/Calamine/Znox 113 Gm Tube) 1 applic TOPICAL BID [facility]; Protocol Last Admin: 02/08/21 05:28 Dose: 1 applic Documented by: Gabapentin (Gabapentin 300 Mg Capsule) 300 mg PO BID [facility] Last Admin: 02/08/21 05:27 Dose: 300 mg Documented by: Gabapentin (Gabapentin 600 Mg Tablet) 600 mg PO QHS [facility] Last Admin: 02/07/21 21:44 Dose: 600 mg Documented by: Guaifenesin (Guaifenesin 600 Mg Tablet) 1,200 mg PO BID [facility] Last Admin: 02/08/21 05:26 Dose: 1,200 mg Documented by: Meropenem 1 gm/ Sodium (Chloride) 120 mls @ 33 mls/hr IV Q8 [facility] Last Infusion: 02/08/21 10:33 Dose: Infused Documented by: Linezolid (Zyvox 600mg) 600 mg in 300 mls @ 200 mls/hr IV Q12@1000,2200 [facility] Last Admin: 02/08/21 10:37 Dose: 200 mls/hr Documented by: L-Arginine/L-Glutamine/Calcium HMB (Alfredo (Unflavored) Packet) 1 packet PO BIDCM [facility] Last Admin: 02/08/21 08:33 Dose: 1 packet Documented by: Lactobacillus Acidophilus (Lactobacillus Acidophilus) 1 tablet PO DAILY [facility] Last Admin: 02/08/21 05:26 Dose: 1 tablet Documented by: Loperamide HCl (Loperamide 2 Mg Capsule) 4 mg PO 4X/DAY [facility] Last Admin: 02/08/21 05:26 Dose: 4 mg Documented by: Nystatin (Nystatin Powder 15gm Bottle) 1 applic TOPICAL TID [facility]; Protocol Last Admin: 02/08/21 05:30 Dose: Not Given Documented by: Ondansetron HCl (Ondansetron Odt 4 Mg Tablet) 4 mg PO Q6H PRN PRN PRN Reason: NAUSEA Last Admin: 02/07/21 22:02 Dose: 4 mg Documented by: Pantoprazole Sodium (Pantoprazole Sodium 40 Mg Tablet) 40 mg PO BID [facility] Last Admin: 02/08/21 05:27 Dose: 40 mg Documented by: Polysaccharide Iron Complex (Iron Polysaccharide Complex 150 Mg Capsule) 150 mg PO DAILYCM [facility] Last Admin: 02/08/21 08:32 Dose: 150 mg Documented by: Fluticasone/Salmeterol (Fluticasone/Salmeterol 232-14 Inhaler) 1 puff INHALATION Q12 [facility] Last Admin: 02/08/21 05:28 Dose: 1 applic Documented by: Sodium Chloride (0.9 % Nacl (Sterile) Posiflush 10 Ml) 10 ml IV PRN PRN PRN Reason: maintain patency Last Admin: 02/02/21 01:18 Dose: 10 ml Documented by: Sodium Chloride (0.9% Normal Saline 250 Ml Iv.Soln.) 250 ml IV PRN PRN PRN Reason: flush atb post infusion and maintain patency Last Admin: 02/07/21 22:02 Dose: 250 ml Documented by: Sodium Chloride (0.9% Saline Lock 10 Ml Syringe) 10 - 40 ml IV UD PRN PRN Reason: SALINE FLUSH Last Admin: 02/07/21 22:02 Dose: 10 ml Documented by: Sodium Hypochlorite (Dakin's Ritika Half Strength (=0.25%)) 1 applic TOPICAL DAILY [facility]; Protocol Last Admin: 02/08/21 10:33 Dose: Not Given Documented by: Medical Necessity - Tobacco Use Smoking Status: Never smoker Tobacco Use: Non-smoker Assessment/Plan All Active Problems Debility (Acute) Cellulitis of left foot (Acute) Abscess of left foot (Acute) POD #6 open left foot 2, 3, 4, 5th ray resection with additional foot incision and drainage secondary to left mid and forefoot abscess and prior open forefoot amputation by Dr Finn 02/02/21 Diabetes with neuropathy Malnutrition suspected Deep venous thrombosis left posterior tibial vein Chronic diarrhea with history of C. difficile Other comorbidities: epilepsy, history of brain tumor, GERD Patient seen and evaluated I reviewed and discussed her case. She remains afebrile vitals are stable. ESR is 74 and C-reactive protein of 17. Wound vac was reapplied and is to continue until further surgery. No further purulent drainage noted. To maintain a non weightbearing status of left lower extremity. She continues on meropenem and linezolid intravenously. Most recent bacterial growth from 02-01-21 demonstrate MSSA only. Her prior cultures from infection at [facility] was also MSSA. New updated intraoperative cultures were obtained from debrided nonviable tissue and also as an additional clearance fragment from the central metatarsal (sent to both pathology and microbiology). Continued diarrhea and h/o C-diff is also noted. Infectious disease is on consult and is greatly appreciated. Per chart review, it is also noted she had recently been treated for esbl klebs urinary tract infection. Vessel calcification noted on arterial studies. Updated arterial Doppler performed. Vascular surgery consult and is greatly appreciated. Staged transmetatarsal amputation (open versus closed) is recommended with consideration of Achilles tendon percutaneous lengthening versus gastrocnemius recession will be considered if equinus if she continues to demarcate well without infection and maintains a stable medical status. Anticipated anesthesia is general and local. I recommend holding off on staged foot surgery next week to allow continuation of anticoagulation medication for treatment of acute DVT. The timing of this will be discussed with medical team. The procedure could be done without a tourniquet however additional bleeding would be anticipated. I recommend continued medical stability prior to proceeding forward with a goal time of within the next month. Current plan is for further surgical care by Dr Finn. Medical management per Dr. Ivy is appreciated and noted. Pain controlled with norco or tylenol if needed; currently stable. Updated C. difficile negative. Please do not hesitate to call with any questions. The podiatry team will continue to follow her closely while in the transitional care unit.
--- NOTE | 2021-02-08 13:21 | PN.ID_ITS ---
Patient Problems: Active and Suspected Problems Debility (Acute) Cellulitis of left foot (Acute) Osteomyelitis of left foot (Suspected) Abscess of left foot (Acute) Subjective: Increase in diarrhea, 3 episodes of incontinence already. Foot improving, no fever. - Physical Exam Vitals/I&O's: Vital Signs Temp Pulse Resp BP Pulse Ox 97.7 F L 67 16 145/70 H 98 02/08/21 05:00 02/08/21 05:00 02/08/21 05:00 02/08/21 05:00 02/08/21 05:00 Oxygen Delivery Method Room Air Weight: 67.81 kg Body Mass Index (BMI) 26.1 Orthostatic Vital Signs Start: 02/03/21 16:30 Freq: Status: Active Protocol: Activity Type Activity Date Activity User E-Sign Co-Sign Detail Recorded Client Recorded Date Recorded By Document 02/03/21 16:30 ML [id number] 02/03/21 16:31 ML 02/03/21 16:30 Orthostatic Vitals Standing -Blood Pressure (90/60-120/80) 122/48 H -Extremity Use Right Arm -Pulse Rate (60-100) 81 Sitting -Blood Pressure (90/60-120/80) 117/62 -Extremity Use Right Arm -Pulse Rate (60-100) 76 Lying -Blood Pressure (90/60-120/80) 125/56 H -Extremity Use Right Arm -Pulse Rate (60-100) 71 Intake and Output for Last 24 Hours 02/06/21 02/07/21 02/08/21 23:59 23:59 23:59 Intake Total 1915. / 1915.05 1680 / 1680 780 / 780 Output Total 300 / 300 Balance 1915. / 1915.05 1380 / 1380 780 / 780 General: Alert, Cooperative, No apparent distress Lungs: Clear to auscultation, Normal air movement Cardiovascular: Regular rate, Regular Rhythm Abdomen: Soft, Non Tender, Non-Distended Skin: No rashes, Ulcer/ Wound - reviewed photo Microbiology Past 72 Hours 02/06/21 15:30 Stool C. difficile DNA Amplification - Final Laboratory Results 02/07/21 16:03: POC Glucose 131 H 02/07/21 21:26: POC Glucose 229 H 02/08/21 05:05: WBC 6.6, RBC 3.04 L, Hgb 8.8 L, Hct 29.1 L, MCV 95.7, MCH 28.9, MCHC 30.2 L, RDW Std Deviation 43.1, RDW Coeff of Xin 12.3, Plt Count 363, MPV 9.2, Immature Gran % (Auto) 0.300, Neut % (Auto) 36.5 L, Lymph % (Auto) 52.4 H, [place] % (Auto) 7.6, Eos % (Auto) 1.8, Baso % (Auto) 1.4 H, Absolute Neuts (auto) 2.4, Absolute Lymphs (auto) 3.47, Nucleated RBC % 0 02/08/21 05:05: Sodium 133 L, Potassium 4.2, Chloride 99, Carbon Dioxide 31.0, Anion Gap 3 L, BUN 25 H, Creatinine 0.62, Estim Creat Clear Calc 78.12, Est GFR (MDRD) Af Amer 125, Est GFR (MDRD) Non-Af 103, BUN/Creatinine Ratio 40.5 H, Glucose 133 H, Calcium 8.4 L, Total Bilirubin 0.20, AST 37, ALT 20, Alkaline Phosphatase 110, Total Protein 7.8, Albumin 1.7 L, Globulin 6.1 H, Albumin/Globulin Ratio 0.3 L 02/08/21 06:16: POC Glucose 130 H 02/08/21 10:56: POC Glucose 196 H Current Medications Acetaminophen (Acetaminophen 500 Mg Tablet) 1,000 mg PO Q6H PRN PRN Reason: FEVER Acetaminophen (Acetaminophen 500 Mg Tablet) 500 mg PO Q6H PRN PRN PRN Reason: Pain Score 1-5 Last Admin: 02/08/21 05:49 Dose: 500 mg Documented by: Hydrocodone Bitart/Acetaminophen (Hydrocodone Bitartrate/Apap 5/325 Tablet) 1 tablet PO Q6H PRN PRN PRN Reason: Pain Score 6-10 Last Admin: 02/07/21 22:03 Dose: 1 tablet Documented by: Albuterol Sulfate (Albuterol Sulfate 8 Gm Inhaler (60 Puffs)) 1 puff INHALATION Q4H PRN PRN PRN Reason: SHORTNESS OF BREATH Last Admin: 02/02/21 06:06 Dose: 1 puff Documented by: Apixaban (Apixaban 5 Mg Tablet) 10 mg PO BID [facility] Stop: 02/12/21 18:01 Last Admin: 02/08/21 05:26 Dose: 10 mg Documented by: Apixaban (Apixaban 5 Mg Tablet) 5 mg PO BID [facility] BEDS AT [facility] Stop: 05/15/21 18:00 Aspirin (Aspirin 81 Mg Tab.Chew) 81 mg PO DAILY@0800 [facility] 234 BEDS AT [facility] Last Admin: 02/08/21 08:32 Dose: 81 mg Documented by: Calamine/Phenol (Menthol/Lanolin/Calamine/Znox 113 Gm Tube) 1 applic TOPICAL BID [facility] 234 BEDS AT [facility]; Protocol Last Admin: 02/08/21 05:28 Dose: 1 applic Documented by: Gabapentin (Gabapentin 300 Mg Capsule) 300 mg PO BID [facility] 234 BEDS AT [facility] Last Admin: 02/08/21 05:27 Dose: 300 mg Documented by: Gabapentin (Gabapentin 600 Mg Tablet) 600 mg PO QHS [facility]S [facility]CLUDE 234 BEDS AT [facility] Last Admin: 02/07/21 21:44 Dose: 600 mg Documented by: Guaifenesin (Guaifenesin 600 Mg Tablet) 1,200 mg PO BID [facility]CLUDE 234 BEDS AT [facility] Last Admin: 02/08/21 05:26 Dose: 1,200 mg Documented by: Meropenem 1 gm/ Sodium (Chloride) 120 mls @ 33 mls/hr IV Q8 [facility]S [facility] 234 BEDS AT [facility] Last Infusion: 02/08/21 10:33 Dose: Infused Documented by: L-Arginine/L-Glutamine/Calcium HMB (Alfredo (Unflavored) Packet) 1 packet PO BIDCM [facility]S [facility]CLUDE 234 BEDS AT [facility] Last Admin: 02/08/21 08:33 Dose: 1 packet Documented by: Lactobacillus Acidophilus (Lactobacillus Acidophilus) 1 tablet PO DAILY [facility]CLUDE 234 BEDS AT [facility] Last Admin: 02/08/21 05:26 Dose: 1 tablet Documented by: Loperamide HCl (Loperamide 2 Mg Capsule) 4 mg PO 4X/DAY [facility]S [facility]CLUDE 234 BEDS AT [facility] Last Admin: 02/08/21 11:39 Dose: 4 mg Documented by: Nystatin (Nystatin Powder 15gm Bottle) 1 applic TOPICAL TID [facility]S INCLUDE 234 BEDS AT [facility]; Protocol Last Admin: 02/08/21 05:30 Dose: Not Given Documented by: Ondansetron HCl (Ondansetron Odt 4 Mg Tablet) 4 mg PO Q6H PRN PRN PRN Reason: NAUSEA Last Admin: 02/07/21 22:02 Dose: 4 mg Documented by: Pantoprazole Sodium (Pantoprazole Sodium 40 Mg Tablet) 40 mg PO BID [facility]CLUDE 234 BEDS AT [facility] Last Admin: 02/08/21 05:27 Dose: 40 mg Documented by: Polysaccharide Iron Complex (Iron Polysaccharide Complex 150 Mg Capsule) 150 mg PO DAILYCM [facility] Last Admin: 02/08/21 08:32 Dose: 150 mg Documented by: Fluticasone/Salmeterol (Fluticasone/Salmeterol 232-14 Inhaler) 1 puff INHALATION Q12 [facility] Last Admin: 02/08/21 05:28 Dose: 1 applic Documented by: Sodium Chloride (0.9 % Nacl (Sterile) Posiflush 10 Ml) 10 ml IV PRN PRN PRN Reason: maintain patency Last Admin: 02/02/21 01:18 Dose: 10 ml Documented by: Sodium Chloride (0.9% Normal Saline 250 Ml Iv.Soln.) 250 ml IV PRN PRN PRN Reason: flush atb post infusion and maintain patency Last Admin: 02/07/21 22:02 Dose: 250 ml Documented by: Sodium Chloride (0.9% Saline Lock 10 Ml Syringe) 10 - 40 ml IV UD PRN PRN Reason: SALINE FLUSH Last Admin: 02/07/21 22:02 Dose: 10 ml Documented by: Sodium Hypochlorite (Dakin's Ritika Half Strength (=0.25%)) 1 applic TOPICAL DAILY [facility]; Protocol Last Admin: 02/08/21 10:33 Dose: Not Given Documented by: Medical Necessity - Tobacco Use Smoking Status: Never smoker Tobacco Use: Non-smoker Route of nutrition/ use of supplements: [] Nutritional Intake: [] IV Site: [] Nguyen Catheter: [] - Assessment/Plan Antibiotics: [] Assessment/Plan: [] Active and Suspected Problems Debility (Acute) Cellulitis of left foot (Acute) Osteomyelitis of left foot (Suspected) Abscess of left foot (Acute) MSSA L foot osteo - had 2nd and 3rd toe amputation and partial metatarsal resection at [facility] 01/26/21. Discharged here on po doxy for mssa and po cipro for esbl klebs uti. Now with worsening purulence and inflammation of L foot. MRI did not show any residual osteo. Abx changed back to linezolid/meropenem, now s/p OR with Dr. Finn 02/02/21. Cxs again with MSSA. Will stop linezolid, continue meropenem. Increase in chronic diarrhea with h/o cdiff, will start po vanc to see if this helps. Will follow
[2021-02-08] MEDS: 0.9% Saline Lock 10 ML Syringe IV ×2 (14:05→21:15)
[2021-02-08] MEDS: Nystatin Powder 15gm Bottle 1 APPLIC TOPICAL ×2 (14:10→21:13)
[2021-02-08 14:21] VITALS: BP 102/48; PULSE 74; RESP 20; TEMP 37; O2SAT 100
--- NOTE | 2021-02-08 15:32 | PT ---
Pt has been c/o dizziness with mobility lately. Pt's BP was taken in supine, seated, and standing. Pt's BP was 112/63 in supine, 115/63 in sitting, and 117/47 in standing.
[2021-02-08 17:00] LABS: Bedside Glucose 224 mg/dL (70-110)
[2021-02-08] MEDS: HYDROcodone Bitartrate/Apap 5/325 Tablet PO (17:20)
[2021-02-08 17:24] LABS: Bacteria 0 SEEN /hpf (None Seen); Mucous, Urine 0 SEEN /hpf (<or=2+); Red Blood Cells-Urine 0 SEEN /hpf (0-5); White Blood Cells 0 SEEN /hpf (0-5)
[2021-02-08] MEDS: Ondansetron ODT 4 MG Tablet PO (17:26)
[2021-02-08 17:29] LABS: Color, Urine Yellow (Yellow); Glucose, Dipstick Normal (Normal); Ketone-Dipstick Negative (Negative); Leukocyte Esterase-Dipstick 100 /ul (Negative); Nitrite-Dipstick Negative (Negative); Occult Blood-Urine Negative /ul (Negative); Protein-Dipstick Negative (Negative); Urine Bilirubin Dipstick Negative (Negative); Urine Clarity Clear (Clear); Urine Urobilinogen Normal (Normal)
[2021-02-08 17:44] LABS: Renal Epithelial Cells 0-5 SEEN /hpf (0-5); Squamous Epithelial Cells - UA 0-5 SEEN /hpf (5-10)
[2021-02-08 18:53] VITALS: BP 129/68; PULSE 73
--- NOTE | 2021-02-08 19:00 | NURSING ---
Excessive sleepiness, pt incontinent of bowel movement often, N.O. u/a c&s, Dr. Iqbal in today pt c/o frequent diarrhea has hx of cdiff, cdiff culture negative, oral vanc started for cdiff prophylaxis, wound dressing changed per wound nurse, N.O. acidophilus TID and d/c Zyvox
[2021-02-08] MEDS: Gabapentin 600 MG Tablet PO (21:14)
[2021-02-08 21:26] LABS: Bedside Glucose 169 mg/dL (70-110)
[2021-02-09 05:19] VITALS: BP 98/51; PULSE 69; RESP 18; TEMP 36.4; O2SAT 96
[2021-02-09] MEDS: guaiFENesin 600 MG Tablet 1200 MG PO ×2 (05:25→17:36)
[2021-02-09] MEDS: Pantoprazole Sodium 40 MG Tablet PO ×2 (05:25→17:37)
[2021-02-09] MEDS: Loperamide 2 MG Capsule 4 MG PO ×4 (05:25→21:55)
[2021-02-09] MEDS: Gabapentin 300 MG Capsule PO ×2 (05:25→17:37)
[2021-02-09] MEDS: APIXABAN 5 MG TABLET 10 MG PO ×2 (05:25→17:36)
[2021-02-09] MEDS: Fluticasone/Salmeterol 232-14 Inhaler 1 PUFF INHALATION ×2 (05:26→17:47)
[2021-02-09] MEDS: Nystatin Powder 15gm Bottle 1 APPLIC TOPICAL ×3 (05:27→21:56)
[2021-02-09] MEDS: Menthol/Lanolin/Calamine/Znox 113 GM Tube 1 APPLIC TOPICAL ×2 (05:28→17:35)
[2021-02-09 06:08] LABS: Absolute Neutrophil Count 2.4 X10^3/uL (2.0-7.7); Basophil% 1.6 % (0-1); Eosinophil# 0.16 X10^3/uL; Eosinophils% 2.6 % (0-5); Hematocrit 26.8 % (37-47); Hemoglobin 8.2 g/dL (12.0-15.0); Lymphocyte % 48.3 % (19-41); Mean Corp Hgb Conc 30.6 g/dL (32-36); Mean Corpuscular Hgb 29.8 pg (27.0-32.0); Mean Corpuscular Volume 97.5 fL (81-99); Mean Platelet Vol. 9.2 fl (6.2-12.0); Monocyte# 0.54 X10^3/uL; Monocyte% 8.7 % (0-10); NRBC Flagged by Analyzer 0 % (0-5); Neutrophil % 38.6 % (47-70); Platelet Count 293 K/mm3 (150-450); RBC Distribution Width CV 12.5 % (11.6-14.6); RBC Distribution Width SD 44.1 fl (35.1-43.9); Red Blood Count 2.75 M/mm3 (4.2-5.4); White Blood Count 6.2 K/mm3 (4.4-11.0)
[2021-02-09 06:39] LABS: ALB/GLOB Ratio 0.3 RATIO (0.9-2.4); AST(SGOT) 38 U/L (15-37); Alanine Aminotransfer ALT/SGPT 22 U/L (13-56); Albumin, Serum 1.8 g/dL (3.2-5.0); Alkaline Phosphatase 104 U/L (45-117); Anion Gap 2 (5-15); BUN 27 mg/dL (7-18); BUN/Creat Ratio 39.8 RATIO (10-20); Calcium,Total 8.2 mg/dL (8.5-10.1); Chloride 102 mmol/L (98-107); Creatinine, Serum 0.68 mg/dL (0.55-1.02); EST Glomerular Filtration Rate 93 mL/min (>60); Est Glom Filt Rate - Afr Amer 112 mL/min (>60); Estimated Creatinine Clearance 71.22 ml/min; Globulin 5.8 g/dL (2.2-4.2); Glucose 111 mg/dL (74-106); Potassium 4.4 mmol/L (3.5-5.1); Protein, Total 7.6 g/dL (6.4-8.2); Sodium Level 135 mmol/L (136-145)
[2021-02-09 06:41] LABS: Bedside Glucose 111 mg/dL (70-110)
[2021-02-09] MEDS: Juven (unflavored) Packet 1 PACKET PO ×2 (09:28→17:35)
[2021-02-09] MEDS: Aspirin 81 MG TAB.CHEW PO (09:29)
[2021-02-09] MEDS: Iron Polysaccharide Complex 150 MG CAPSULE PO (09:29)
[2021-02-09] MEDS: Acetaminophen 500 MG Tablet PO (09:32)
[2021-02-09 11:01] LABS: Bedside Glucose 161 mg/dL (70-110)
[2021-02-09] MEDS: 0.9% Saline Lock 10 ML Syringe IV ×3 (13:51→21:57)
[2021-02-09 14:55] VITALS: BP 85/51; PULSE 86; RESP 18; TEMP 36.4; O2SAT 96
--- NOTE | 2021-02-09 16:20 | CHAPLAIN ---
Type of Pastoral Visit ___ Initial Visit _x__ Follow-up Visit ___ On-call Visit ___ General Patient Visit ___ Spiritual Assessment ___ Family Conference ___ Bereavement ___ Rapid Response ___ Code Blue ___ Other (describe below) Pastoral Care Referral From _x__ Patient ___ Family ___ Nurse ___ Physician ___ Casing Splitter ___ Import/Export Administrator ___ Other (describe below) Sacrament/Intervention _x__ Active listening ___ Anointing ___ Mormon ___ Bereavement ___ Communion _x__ Dang exploration ___ _x__ Life review _x__ Prayer ___ Reconciliation ___ Sacrament of Sick _x__ Supportive presence ___ Wedding ___ Other (describe below) Pastoral Comments
[2021-02-09 16:26] LABS: Bedside Glucose 167 mg/dL (70-110)
[2021-02-09 17:34] VITALS: BP 158/74; PULSE 75
[2021-02-09 21:55] LABS: Bedside Glucose 192 mg/dL (70-110)
[2021-02-09] MEDS: Ondansetron ODT 4 MG Tablet PO (21:55)
[2021-02-09] MEDS: Gabapentin 600 MG Tablet PO (21:55)
[2021-02-09] MEDS: HYDROcodone Bitartrate/Apap 5/325 Tablet PO (21:55)
[2021-02-09 21:59] VITALS: PULSE 81; RESP 16; O2SAT 98
[2021-02-10 05:00] VITALS: BP 129/67; PULSE 66; RESP 16; TEMP 36.3; O2SAT 98
[2021-02-10] MEDS: Gabapentin 300 MG Capsule PO ×2 (06:14→17:32)
[2021-02-10] MEDS: Pantoprazole Sodium 40 MG Tablet PO ×2 (06:14→17:32)
[2021-02-10] MEDS: APIXABAN 5 MG TABLET 10 MG PO ×2 (06:14→17:32)
[2021-02-10] MEDS: guaiFENesin 600 MG Tablet 1200 MG PO ×2 (06:14→17:32)
[2021-02-10] MEDS: Loperamide 2 MG Capsule 4 MG PO ×4 (06:15→21:28)
[2021-02-10] MEDS: Fluticasone/Salmeterol 232-14 Inhaler 1 PUFF INHALATION ×2 (06:16→17:32)
[2021-02-10] MEDS: Menthol/Lanolin/Calamine/Znox 113 GM Tube 1 APPLIC TOPICAL ×2 (06:20→17:35)
[2021-02-10 06:21] LABS: Bedside Glucose 116 mg/dL (70-110)
[2021-02-10] MEDS: Nystatin Powder 15gm Bottle 1 APPLIC TOPICAL ×3 (06:21→21:28)
[2021-02-10] MEDS: Juven (unflavored) Packet 1 PACKET PO ×2 (08:30→17:31)
[2021-02-10] MEDS: Iron Polysaccharide Complex 150 MG CAPSULE PO (08:30)
[2021-02-10] MEDS: Aspirin 81 MG TAB.CHEW PO (08:30)
[2021-02-10 10:00] VITALS: PULSE 73; O2SAT 98
[2021-02-10 10:36] LABS: Bedside Glucose 193 mg/dL (70-110)
--- NOTE | 2021-02-10 11:04 | NURSING ---
wound dressing changed by wound nurse
--- NOTE | 2021-02-10 11:38 | NURSING ---
wound photo: left foot
--- NOTE | 2021-02-10 11:55 | CON.PCM_ITS ---
Problem List (1) PAD (peripheral artery disease) Status: Acute Reason for Consult Date of Consultation: 02/10/21 Reason for Consultation: PAD History of Present Illness: The patient is a 66 year old F that comes in has left leg wound. She has had amputations of the 4 toes on the left foot. Has wound VAC. Some delayed healing. Is going to be set for a transmetatarsal amputation. She had a left duplex of the leg but did show a calf vein DVT. But also had triphasic flow throughout the anterior tibial posterior tibial and peroneal veins. Only able to visually the proximal anterior tibial artery. She has normal palpable pulse on the left leg. [] Past Medical History Past Medical History (Chronic Problems): Chronic Problems Diabetic foot ulcer (Chronic) Diabetes mellitus (Chronic) Brain tumor (benign) (Chronic) Chronic diarrhea (Chronic) Epilepsy (Chronic) Mitral valve prolapse (Chronic) Diabetic neuropathy (Chronic) 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) Gastroesophageal reflux disease (Chronic) Type 2 diabetes mellitus with diabetic polyneuropathy (Chronic) Tubal ligation status (Chronic) History of pneumonia (Chronic) Obesity (Chronic) Migraine (Chronic) Disc degeneration (Chronic) Asthma (Chronic) Allergies cefprozil Allergy (Verified 02/02/21 11:23) Shortness of breath ceftriaxone Allergy (Verified 02/02/21 11:23) Hives clindamycin Allergy (Verified 02/02/21 11:23) Rash enalapril Allergy (Verified 02/02/21 11:23) Other enoxaparin Allergy (Verified 02/02/21 11:23) Rash heparin Allergy (Verified 02/02/21 11:23) Rash levalbuterol Allergy (Verified 02/02/21 11:23) Other morphine Allergy (Verified 02/02/21 11:23) Shortness of breath Penicillins Allergy (Verified 02/02/21 11:23) Anaphylaxis shellfish derived Allergy (Verified 02/02/21 11:23) Anaphylaxis valsartan Allergy (Verified 02/02/21 11:23) Other vancomycin Allergy (Verified 02/02/21 11:23) Rash Home Medications: Ambulatory Orders Medication Instructions Recorded Albuterol IH (ProAir) [Proair Hfa 1 puff INHALATION Q4H PRN PRN 01/30/21 (SP)Vent Pts] Budesonide/Formoterol Fumarate 2 puff IH BID 01/30/21 [Budesonide-Formoterol 160-4.5] Ciprofloxacin [Cipro] 500 mg PO BID 01/30/21 Doxycycline 100 mg PO BID 01/30/21 Gabapentin 300 mg PO BID 01/30/21 Gabapentin [Neurontin] 600 mg PO QHS 01/30/21 Guaifenesin [Mucinex] 1,200 mg PO BID 01/30/21 Insulin NPH Human Isophane 100 units SC DAILY 01/30/21 [Humulin N Kwikpen] Lactobacillus Acidophilus 1 each PO DAILY 01/30/21 [Acidophilus] Lansoprazole [Prevacid] 15 mg PO BID 01/30/21 Lansoprazole [Prevacid] 30 mg PO BID 01/30/21 Loperamide HCl [Imodium A-D] 6 mg PO TID 01/30/21 Ondansetron HCl [Zofran] 4 mg PO Q6H PRN PRN 01/30/21 Tramadol HCl [Ultram] 50 mg PO Q6H PRN PRN 01/30/21 Surgical History: appendectomy, - - Left 2nd, 3rd toe amputations. Psychiatric History: No pertinent psych hx [employer] History: No pertinent [employer] history Lives: Spouse/ Significant Other Smoking Status: Never smoker Tobacco Use: Non-smoker Alcohol: None Drugs: None - *Family History Maternal History Items: No pertinent history Paternal History Items: No pertinent history Review of Systems Constitutional: Denies: Chills, Fever, Weight Change HEENT: Denies: Difficulty Hearing, Difficulty Swallowing Cardiovascular: Denies: Chest Pain, Claudication Respiratory: Denies: Cough Gastrointestinal: Denies: Abdominal Pain Genitourinary: Denies: Dysuria Musculoskeletal: Denies: Arm Pain Skin: Reports: Wounds - Left foot wound Neurological: Denies: Balance problems Patient Problems: Active and Suspected Problems Debility (Acute) Cellulitis of left foot (Acute) Osteomyelitis of left foot (Suspected) Abscess of left foot (Acute) - Physical Exam Vitals/I&O's: Vital Signs Temp Pulse Resp BP Pulse Ox 97.3 F L 73 16 129/67 H 98 02/10/21 05:00 02/10/21 10:00 02/10/21 05:00 02/10/21 05:00 02/10/21 10:00 Oxygen Delivery Method Room Air Weight: 149 lb 7.927 oz Body Mass Index (BMI) 26.1 Orthostatic Vital Signs Start: 02/03/21 16:30 Freq: Status: Active Protocol: Activity Type Activity Date Activity User E-Sign Co-Sign Detail Recorded Client Recorded Date Recorded By Document 02/03/21 16:30 ML [id number] 02/03/21 16:31 ML 02/03/21 16:30 Orthostatic Vitals Standing -Blood Pressure (90/60-120/80) 122/48 H -Extremity Use Right Arm -Pulse Rate (60-100) 81 Sitting -Blood Pressure (90/60-120/80) 117/62 -Extremity Use Right Arm -Pulse Rate (60-100) 76 Lying -Blood Pressure (90/60-120/80) 125/56 H -Extremity Use Right Arm -Pulse Rate (60-100) 71 Intake and Output for Last 24 Hours 02/08/21 02/09/21 02/10/21 23:59 23:59 23:59 Intake Total 1320 / 1320 980 / 980 360 / 360 Balance 1320 / 1320 980 / 980 360 / 360 General: Alert, Oriented x3 HEENT: Atraumatic, PERRLA, EOMI Oral: Moist Mucosa Neck: Supple, No JVD, Negative Carotid Bruits Lungs: Clear to auscultation Cardiovascular: Regular rate Abdomen: Bowel Sounds Present, Soft Extremities: - - Palpable radial pulses Wound VAC intact left foot Palpable right pedal pulse Musculoskeletal: No Tenderness to Palpation of Joints or Extremities Microbiology Past 72 Hours 02/08/21 17:02 Interface Orders Urine Culture - Preliminary Culture exhibits no growth. Laboratory Results 02/09/21 16:10: POC Glucose 167 H 02/09/21 21:38: POC Glucose 192 H 02/10/21 06:12: POC Glucose 116 H 02/10/21 10:31: POC Glucose 193 H Current Medications Acetaminophen (Acetaminophen 500 Mg Tablet) 1,000 mg PO Q6H PRN PRN Reason: FEVER Acetaminophen (Acetaminophen 500 Mg Tablet) 500 mg PO Q6H PRN PRN PRN Reason: Pain Score 1-5 Last Admin: 02/09/21 09:32 Dose: 500 mg Documented by: Hydrocodone Bitart/Acetaminophen (Hydrocodone Bitartrate/Apap 5/325 Tablet) 1 tablet PO Q6H PRN PRN PRN Reason: Pain Score 6-10 Last Admin: 02/09/21 21:55 Dose: 1 tablet Documented by: Albuterol Sulfate (Albuterol Sulfate 8 Gm Inhaler (60 Puffs)) 1 puff INHALATION Q4H PRN PRN PRN Reason: SHORTNESS OF BREATH Last Admin: 02/02/21 06:06 Dose: 1 puff Documented by: Apixaban (Apixaban 5 Mg Tablet) 10 mg PO BID [facility] Stop: 02/12/21 18:01 Last Admin: 02/10/21 06:14 Dose: 10 mg Documented by: Apixaban (Apixaban 5 Mg Tablet) 5 mg PO BID [facility] Stop: 05/15/21 18:00 Aspirin (Aspirin 81 Mg Tab.Chew) 81 mg PO DAILY@0800 [facility] [place] Last Admin: 02/10/21 08:30 Dose: 81 mg Documented by: Calamine/Phenol (Menthol/Lanolin/Calamine/Znox 113 Gm Tube) 1 applic TOPICAL BID [facility] [place]; Protocol Last Admin: 02/10/21 06:20 Dose: 1 applic Documented by: Gabapentin (Gabapentin 300 Mg Capsule) 300 mg PO BID [facility] Last Admin: 02/10/21 06:14 Dose: 300 mg Documented by: Gabapentin (Gabapentin 600 Mg Tablet) 600 mg PO QHS [facility] Last Admin: 02/09/21 21:55 Dose: 600 mg Documented by: Guaifenesin (Guaifenesin 600 Mg Tablet) 1,200 mg PO BID [facility] [place] Last Admin: 02/10/21 06:14 Dose: 1,200 mg Documented by: Meropenem 1 gm/ Sodium (Chloride) 120 mls @ 33 mls/hr IV Q8 [facility] [place] Last Infusion: 02/10/21 10:38 Dose: Infused Documented by: L-Arginine/L-Glutamine/Calcium HMB (Alfredo (Unflavored) Packet) 1 packet PO BIDCM [facility] [place] Last Admin: 02/10/21 08:30 Dose: 1 packet Documented by: Lactobacillus Acidophilus (Lactobacillus Acidophilus) 1 tablet PO TID [facility] [place] Last Admin: 02/10/21 06:15 Dose: 1 tablet Documented by: Loperamide HCl (Loperamide 2 Mg Capsule) 4 mg PO 4X/DAY [facility] [place] Last Admin: 02/10/21 11:04 Dose: 4 mg Documented by: Nystatin (Nystatin Powder 15gm Bottle) 1 applic TOPICAL TID [facility] [place]; Protocol Last Admin: 02/10/21 06:21 Dose: 1 applic Documented by: Ondansetron HCl (Ondansetron Odt 4 Mg Tablet) 4 mg PO Q6H PRN PRN PRN Reason: NAUSEA Last Admin: 02/09/21 21:55 Dose: 4 mg Documented by: Pantoprazole Sodium (Pantoprazole Sodium 40 Mg Tablet) 40 mg PO BID [facility] [place] Last Admin: 02/10/21 06:14 Dose: 40 mg Documented by: Polysaccharide Iron Complex (Iron Polysaccharide Complex 150 Mg Capsule) 150 mg PO DAILYCM [facility] Last Admin: 02/10/21 08:30 Dose: 150 mg Documented by: Fluticasone/Salmeterol (Fluticasone/Salmeterol 232-14 Inhaler) 1 puff INHALATION Q12 [facility] [place] Last Admin: 02/10/21 06:16 Dose: 1 puff Documented by: Sodium Chloride (0.9 % Nacl (Sterile) Posiflush 10 Ml) 10 ml IV PRN PRN PRN Reason: maintain patency Last Admin: 02/02/21 01:18 Dose: 10 ml Documented by: Sodium Chloride (0.9% Normal Saline 250 Ml Iv.Soln.) 250 ml IV PRN PRN PRN Reason: flush atb post infusion and maintain patency Last Admin: 02/07/21 22:02 Dose: 250 ml Documented by: Sodium Chloride (0.9% Saline Lock 10 Ml Syringe) 10 - 40 ml IV UD PRN PRN Reason: SALINE FLUSH Last Admin: 02/09/21 21:57 Dose: 20 ml Documented by: Sodium Hypochlorite (Dakin's Ritika Half Strength (=0.25%)) 1 applic TOPICAL DAILY [facility]; Protocol Last Admin: 02/10/21 06:16 Dose: Not Given Documented by: Vancomycin HCl (Vancomcyin 125 Mg/5 Ml Susp Po.Syringe) 125 mg PO Q6 [facility] [place] Last Admin: 02/10/21 11:03 Dose: 125 mg Documented by: Assessment/Plan All Active Problems PAD (peripheral artery disease) (Acute) Other specified peripheral vascular diseases (Acute) Deep venous thrombosis of distal end of left lower extremity (Acute) Debility (Acute) Cellulitis of left foot (Acute) Abscess of left foot (Acute) 1. PAD. Patient appears to have adequate perfusion down through the left leg. She is okay to proceed with the TMA. She also just has a calf vein DVT and this would not preclude doing the TMA. We will follow as needed
[2021-02-10] MEDS: 0.9% Saline Lock 10 ML Syringe IV (13:42)
[2021-02-10 13:48] VITALS: BP 147/98; PULSE 75; RESP 20; TEMP 36.7; O2SAT 100
[2021-02-10 16:35] LABS: Bedside Glucose 196 mg/dL (70-110)
[2021-02-10] MEDS: Acetaminophen 500 MG Tablet PO (17:38)
[2021-02-10] MEDS: Gabapentin 600 MG Tablet PO (21:28)
[2021-02-10 21:46] LABS: Bedside Glucose 162 mg/dL (70-110)
[2021-02-11 05:00] VITALS: BP 166/77; PULSE 69; RESP 16; TEMP 36.1; O2SAT 98
[2021-02-11] MEDS: 0.9% Normal Saline 250 ML IV.SOLN. IV (06:07)
[2021-02-11] MEDS: Pantoprazole Sodium 40 MG Tablet PO ×2 (06:08→17:30)
[2021-02-11] MEDS: Gabapentin 300 MG Capsule PO ×2 (06:08→17:31)
[2021-02-11] MEDS: APIXABAN 5 MG TABLET 10 MG PO ×2 (06:08→17:28)
[2021-02-11] MEDS: Fluticasone/Salmeterol 232-14 Inhaler 1 PUFF INHALATION ×2 (06:08→17:27)
[2021-02-11] MEDS: guaiFENesin 600 MG Tablet 1200 MG PO ×2 (06:08→17:29)
[2021-02-11] MEDS: Loperamide 2 MG Capsule 4 MG PO ×4 (06:10→21:26)
[2021-02-11] MEDS: Nystatin Powder 15gm Bottle 1 APPLIC TOPICAL ×3 (06:12→21:26)
[2021-02-11] MEDS: Menthol/Lanolin/Calamine/Znox 113 GM Tube 1 APPLIC TOPICAL ×2 (06:12→17:37)
[2021-02-11 06:36] LABS: Bedside Glucose 188 mg/dL (70-110)
--- NOTE | 2021-02-11 08:51 | MDS.RN ---
Information for the mds was obtained from review of the clinical record, interview of resident, staff, and direct observation of resident's care.
[2021-02-11] MEDS: Iron Polysaccharide Complex 150 MG CAPSULE PO (09:18)
[2021-02-11] MEDS: Juven (unflavored) Packet 1 PACKET PO ×2 (09:18→17:27)
[2021-02-11] MEDS: Aspirin 81 MG TAB.CHEW PO (09:18)
[2021-02-11] MEDS: 0.9% Saline Lock 10 ML Syringe IV ×2 (09:44→13:55)
--- NOTE | 2021-02-11 10:03 | PCM.PN.ID ---
Patient Problems: Active and Suspected Problems PAD (peripheral artery disease) (Acute) Debility (Acute) Cellulitis of left foot (Acute) Osteomyelitis of left foot (Suspected) Abscess of left foot (Acute) Subjective: Still diarrhea, but abd feels much better, no fever - Physical Exam Vitals/I&O's: Vital Signs Temp Pulse Resp BP Pulse Ox 97.0 F L 69 16 166/77 H 98 02/11/21 05:00 02/11/21 05:00 02/11/21 05:00 02/11/21 05:00 02/11/21 05:00 Oxygen Delivery Method Room Air Weight: 67.81 kg Body Mass Index (BMI) 26.1 Orthostatic Vital Signs Start: 02/03/21 16:30 Freq: Status: Active Protocol: Activity Type Activity Date Activity User E-Sign Co-Sign Detail Recorded Client Recorded Date Recorded By Document 02/03/21 16:30 ML [id number] 02/03/21 16:31 ML 02/03/21 16:30 Orthostatic Vitals Standing -Blood Pressure (90/60-120/80) 122/48 H -Extremity Use Right Arm -Pulse Rate (60-100) 81 Sitting -Blood Pressure (90/60-120/80) 117/62 -Extremity Use Right Arm -Pulse Rate (60-100) 76 Lying -Blood Pressure (90/60-120/80) 125/56 H -Extremity Use Right Arm -Pulse Rate (60-100) 71 Intake and Output for Last 24 Hours 02/09/21 02/10/21 02/11/21 23:59 23:59 23:59 Intake Total 980 / 980 1260 / 1260 600 / 600 Balance 980 / 980 1260 / 1260 600 / 600 General: Alert, Cooperative, No apparent distress Lungs: Clear to auscultation, Normal air movement Cardiovascular: Regular rate, Regular Rhythm Skin: Ulcer/ Wound Microbiology Past 72 Hours 02/08/21 17:02 Interface Orders Urine Culture - Final Culture exhibits no growth. Laboratory Results 02/10/21 10:31: POC Glucose 193 H 02/10/21 16:31: POC Glucose 196 H 02/10/21 21:31: POC Glucose 162 H 02/11/21 06:18: POC Glucose 188 H Current Medications Acetaminophen (Acetaminophen 500 Mg Tablet) 1,000 mg PO Q6H PRN PRN Reason: FEVER Acetaminophen (Acetaminophen 500 Mg Tablet) 500 mg PO Q6H PRN PRN PRN Reason: Pain Score 1-5 Last Admin: 02/10/21 17:38 Dose: 500 mg Documented by: Hydrocodone Bitart/Acetaminophen (Hydrocodone Bitartrate/Apap 5/325 Tablet) 1 tablet PO Q6H PRN PRN PRN Reason: Pain Score 6-10 Last Admin: 02/09/21 21:55 Dose: 1 tablet Documented by: Albuterol Sulfate (Albuterol Sulfate 8 Gm Inhaler (60 Puffs)) 1 puff INHALATION Q4H PRN PRN PRN Reason: SHORTNESS OF BREATH Last Admin: 02/02/21 06:06 Dose: 1 puff Documented by: Apixaban (Apixaban 5 Mg Tablet) 10 mg PO BID [facility] Stop: 02/12/21 18:01 Last Admin: 02/11/21 06:08 Dose: 10 mg Documented by: Apixaban (Apixaban 5 Mg Tablet) 5 mg PO BID [facility] Stop: 05/15/21 18:00 Aspirin (Aspirin 81 Mg Tab.Chew) 81 mg PO DAILY@0800 [facility] Last Admin: 02/11/21 09:18 Dose: 81 mg Documented by: Calamine/Phenol (Menthol/Lanolin/Calamine/Znox 113 Gm Tube) 1 applic TOPICAL BID [facility]; Protocol Last Admin: 02/11/21 06:12 Dose: 1 applic Documented by: Gabapentin (Gabapentin 300 Mg Capsule) 300 mg PO BID [facility] Last Admin: 02/11/21 06:08 Dose: 300 mg Documented by: Gabapentin (Gabapentin 600 Mg Tablet) 600 mg PO QHS [facility] Last Admin: 02/10/21 21:28 Dose: 600 mg Documented by: Guaifenesin (Guaifenesin 600 Mg Tablet) 1,200 mg PO BID [facility] Last Admin: 02/11/21 06:08 Dose: 1,200 mg Documented by: Meropenem 1 gm/ Sodium (Chloride) 120 mls @ 33 mls/hr IV Q8 [facility] Last Infusion: 02/11/21 09:46 Dose: Infused Documented by: L-Arginine/L-Glutamine/Calcium HMB (Alfredo (Unflavored) Packet) [facility] Last Admin: 02/11/21 09:18 Dose: 1 packet Documented by: Lactobacillus Acidophilus (Lactobacillus Acidophilus) 1 tablet PO TID [facility] Last Admin: 02/11/21 06:10 Dose: 1 tablet Documented by: Loperamide HCl (Loperamide 2 Mg Capsule) 4 mg PO 4X/DAY [facility] Last Admin: 02/11/21 06:10 Dose: 4 mg Documented by: Nystatin (Nystatin Powder 15gm Bottle) 1 applic TOPICAL TID [facility]; Protocol Last Admin: 02/11/21 06:12 Dose: 1 applic Documented by: Ondansetron HCl (Ondansetron Odt 4 Mg Tablet) 4 mg PO Q6H PRN PRN PRN Reason: NAUSEA Last Admin: 02/09/21 21:55 Dose: 4 mg Documented by: Pantoprazole Sodium (Pantoprazole Sodium 40 Mg Tablet) 40 mg PO BID [facility] Last Admin: 02/11/21 06:08 Dose: 40 mg Documented by: Polysaccharide Iron Complex (Iron Polysaccharide Complex 150 Mg Capsule) 150 mg PO DAILYCM [facility] Last Admin: 02/11/21 09:18 Dose: 150 mg Documented by: Fluticasone/Salmeterol (Fluticasone/Salmeterol 232-14 Inhaler) 1 puff INHALATION Q12 [facility] Last Admin: 02/11/21 06:08 Dose: 1 puff Documented by: Sodium Chloride (0.9 % Nacl (Sterile) Posiflush 10 Ml) 10 ml IV PRN PRN PRN Reason: maintain patency Last Admin: 02/02/21 01:18 Dose: 10 ml Documented by: Sodium Chloride (0.9% Normal Saline 250 Ml Iv.Soln.) 250 ml IV PRN PRN PRN Reason: flush atb post infusion and maintain patency Last Admin: 02/11/21 06:07 Dose: 250 ml Documented by: Sodium Chloride (0.9% Saline Lock 10 Ml Syringe) 10 - 40 ml IV UD PRN PRN Reason: SALINE FLUSH Last Admin: 02/11/21 09:44 Dose: 10 ml Documented by: Sodium Hypochlorite (Dakin's Ritika Half Strength (=0.25%)) 1 applic TOPICAL DAILY [facility]; Protocol Last Admin: 02/11/21 06:10 Dose: Not Given Documented by: Vancomycin HCl (Vancomcyin 125 Mg/5 Ml Susp Po.Syringe) 125 mg PO Q6 [facility] Last Admin: 02/11/21 06:10 Dose: 125 mg Documented by: Medical Necessity - Tobacco Use Smoking Status: Never smoker Tobacco Use: Non-smoker Route of nutrition/ use of supplements: [] Nutritional Intake: [] IV Site: [] Nguyen Catheter: [] - Assessment/Plan Antibiotics: [] Assessment/Plan: [] Active and Suspected Problems Debility (Acute) Cellulitis of left foot (Acute) Osteomyelitis of left foot (Suspected) Abscess of left foot (Acute) MSSA L foot osteo - had 2nd and 3rd toe amputation and partial metatarsal resection at [facility] 01/26/21. Discharged here on po doxy for mssa and po cipro for esbl klebs uti. Now with worsening purulence and inflammation of L foot. MRI did not show any residual osteo. Abx changed back to linezolid/meropenem, now s/p OR with Dr. Finn 02/02/21. Cxs again with MSSA. Off linezolid. Continue meropenem. Increase in chronic diarrhea with h/o cdiff, po vanc seems to have helped Will follow
[2021-02-11 11:06] LABS: Bedside Glucose 195 mg/dL (70-110)
[2021-02-11 14:29] VITALS: BP 140/69; PULSE 75; RESP 18; TEMP 36.5; O2SAT 98
[2021-02-11 16:30] LABS: Bedside Glucose 148 mg/dL (70-110)
[2021-02-11] MEDS: Acetaminophen 500 MG Tablet PO (17:35)
[2021-02-11] MEDS: Gabapentin 600 MG Tablet PO (21:28)
[2021-02-11 21:45] LABS: Bedside Glucose 171 mg/dL (70-110)
[2021-02-12 07:00] LABS: Bedside Glucose 114 mg/dL (70-110)
[2021-02-12] MEDS: Pantoprazole Sodium 40 MG Tablet PO ×2 (07:16→17:37)
[2021-02-12] MEDS: Loperamide 2 MG Capsule 4 MG PO ×4 (07:16→21:37)
[2021-02-12] MEDS: guaiFENesin 600 MG Tablet 1200 MG PO ×2 (07:16→17:36)
[2021-02-12] MEDS: Menthol/Lanolin/Calamine/Znox 113 GM Tube 1 APPLIC TOPICAL ×2 (07:16→17:39)
[2021-02-12] MEDS: Gabapentin 300 MG Capsule PO ×2 (07:16→17:36)
[2021-02-12] MEDS: APIXABAN 5 MG TABLET 10 MG PO ×2 (07:17→17:37)
[2021-02-12] MEDS: Nystatin Powder 15gm Bottle 1 APPLIC TOPICAL ×3 (07:18→21:48)
[2021-02-12] MEDS: Fluticasone/Salmeterol 232-14 Inhaler 1 PUFF INHALATION ×2 (07:18→17:39)
--- NOTE | 2021-02-12 07:28 | PN_ITS ---
Patient Problems: Active and Suspected Problems PAD (peripheral artery disease) (Acute) Debility (Acute) Cellulitis of left foot (Acute) Osteomyelitis of left foot (Suspected) Abscess of left foot (Acute) Subjective: Patient seen and examined resting comfortably. Patient denies any new pedal complaints. Patient denies any nausea, fever, chills, chest pain, shortness of breath, cough, streaking, purulence, vomiting. Patient reports improvement in pain over the last couple days - Physical Exam Vitals/I&O's: Vital Signs Temp Pulse Resp BP Pulse Ox 97.7 F L 75 18 140/69 H 98 02/11/21 14:29 02/11/21 14:29 02/11/21 14:29 02/11/21 14:29 02/11/21 14:29 Oxygen Delivery Method Room Air Weight: 67.81 kg Body Mass Index (BMI) 26.1 Orthostatic Vital Signs Start: 02/03/21 16:30 Freq: Status: Active Protocol: Activity Type Activity Date Activity User E-Sign Co-Sign Detail Recorded Client Recorded Date Recorded By Document 02/03/21 16:30 ML [id number] 02/03/21 16:31 ML 02/03/21 16:30 Orthostatic Vitals Standing -Blood Pressure (90/60-120/80) 122/48 H -Extremity Use Right Arm -Pulse Rate (60-100) 81 Sitting -Blood Pressure (90/60-120/80) 117/62 -Extremity Use Right Arm -Pulse Rate (60-100) 76 Lying -Blood Pressure (90/60-120/80) 125/56 H -Extremity Use Right Arm -Pulse Rate (60-100) 71 Intake and Output for Last 24 Hours 02/10/21 02/11/21 02/12/21 23:59 23:59 23:59 Intake Total 1260 / 1260 1080 / 1080 120 / 120 Balance 1260 / 1260 1080 / 1080 120 / 120 General: Alert, Oriented x3, Cooperative HEENT: Atraumatic Extremities: No edema, Capillary Refill Less than 3 Seconds, No Calf Tenderness, Cool - At area of cyanosis, duskiness, pallor lateral aspect of wound left foot, Cyanosis - Lateral aspect of ulceration cyanosis, duskiness and pallor slightly larger than on previous examination, Diminished Peripheral Pulses Skin: Ulcer/ Wound - Distal left foot. Wound to bone, sanguinous drainage, granular base, no malodor, no purulence, no surrounding erythema, no other signs of infection. Small dark areas to lateral aspect of wound and plantar most aspect where abscess was previously noted. As well as to lateral first MPJ capsule., - - Patient has partial left transmetatarsal amputation with first ray remaining for skin viability coverage. Lateral aspect of wound noted to be increase in duskiness still awaiting full demarcation. Musculoskeletal: No Tenderness to Palpation of Joints or Extremities Neurological: - - Decreased epicritic sensation Psych/Mental Status: Normal Affect, Appropriate Microbiology Past 72 Hours 02/08/21 17:02 Interface Orders Urine Culture - Final Culture exhibits no growth. Laboratory Results 02/11/21 11:00: POC Glucose 195 H 02/11/21 16:24: POC Glucose 148 H 02/11/21 21:29: POC Glucose 171 H 02/12/21 06:39: POC Glucose 114 H Current Medications Acetaminophen (Acetaminophen 500 Mg Tablet) 1,000 mg PO Q6H PRN PRN Reason: FEVER Acetaminophen (Acetaminophen 500 Mg Tablet) 500 mg PO Q6H PRN PRN PRN Reason: Pain Score 1-5 Last Admin: 02/11/21 17:35 Dose: 500 mg Documented by: Hydrocodone Bitart/Acetaminophen (Hydrocodone Bitartrate/Apap 5/325 Tablet) 1 tablet PO Q6H PRN PRN PRN Reason: Pain Score 6-10 Last Admin: 02/09/21 21:55 Dose: 1 tablet Documented by: Albuterol Sulfate (Albuterol Sulfate 8 Gm Inhaler (60 Puffs)) 1 puff INHALATION Q4H PRN PRN PRN Reason: SHORTNESS OF BREATH Last Admin: 02/02/21 06:06 Dose: 1 puff Documented by: Apixaban (Apixaban 5 Mg Tablet) 10 mg PO BID [facility] Stop: 02/12/21 18:01 Last Admin: 02/12/21 07:17 Dose: 10 mg Documented by: Apixaban (Apixaban 5 Mg Tablet) 5 mg PO BID [facility] Stop: 05/15/21 18:00 Aspirin (Aspirin 81 Mg Tab.Chew) 81 mg PO DAILY@0800 [facility] Last Admin: 02/11/21 09:18 Dose: 81 mg Documented by: Calamine/Phenol (Menthol/Lanolin/Calamine/Znox 113 Gm Tube) 1 applic TOPICAL BID [facility]; Protocol Last Admin: 02/12/21 07:16 Dose: 1 applic Documented by: Gabapentin (Gabapentin 300 Mg Capsule) 300 mg PO BID [facility] Last Admin: 02/12/21 07:16 Dose: 300 mg Documented by: Gabapentin (Gabapentin 600 Mg Tablet) 600 mg PO QHS [facility] Last Admin: 02/11/21 21:28 Dose: 600 mg Documented by: Guaifenesin (Guaifenesin 600 Mg Tablet) 1,200 mg PO BID [facility] Last Admin: 02/12/21 07:16 Dose: 1,200 mg Documented by: Meropenem 1 gm/ Sodium (Chloride) 120 mls @ 33 mls/hr IV Q8 [facility] Last Admin: 02/12/21 07:16 Dose: 33 mls/hr Documented by: L-Arginine/L-Glutamine/Calcium HMB ([facility]o (Unflavored) Packet) [facility] Last Admin: 02/11/21 17:27 Dose: 1 packet Documented by: Lactobacillus Acidophilus (Lactobacillus Acidophilus) 1 tablet PO TID [facility] Last Admin: 02/12/21 07:16 Dose: 1 tablet Documented by: Loperamide HCl (Loperamide 2 Mg Capsule) 4 mg PO 4X/DAY [facility] Last Admin: 02/12/21 07:16 Dose: 4 mg Documented by: Nystatin (Nystatin Powder 15gm Bottle) 1 applic TOPICAL TID [facility]; Protocol Last Admin: 02/12/21 07:18 Dose: 1 applic Documented by: Ondansetron HCl (Ondansetron Odt 4 Mg Tablet) 4 mg PO Q6H PRN PRN PRN Reason: NAUSEA Last Admin: 02/09/21 21:55 Dose: 4 mg Documented by: Pantoprazole Sodium (Pantoprazole Sodium 40 Mg Tablet) 40 mg PO BID [facility] Last Admin: 02/12/21 07:16 Dose: 40 mg Documented by: Polysaccharide Iron Complex (Iron Polysaccharide Complex 150 Mg Capsule) 150 mg PO DAILYCM [facility] Last Admin: 02/11/21 09:18 Dose: 150 mg Documented by: Fluticasone/Salmeterol (Fluticasone/Salmeterol 232-14 Inhaler) 1 puff INHALATION Q12 [facility] Last Admin: 02/12/21 07:18 Dose: 1 puff Documented by: Sodium Chloride (0.9 % Nacl (Sterile) Posiflush 10 Ml) 10 ml IV PRN PRN PRN Reason: maintain patency Last Admin: 02/02/21 01:18 Dose: 10 ml Documented by: Sodium Chloride (0.9% Normal Saline 250 Ml Iv.Soln.) 250 ml IV PRN PRN PRN Reason: flush atb post infusion and maintain patency Last Admin: 02/11/21 06:07 Dose: 250 ml Documented by: Sodium Chloride (0.9% Saline Lock 10 Ml Syringe) 10 - 40 ml IV UD PRN PRN Reason: SALINE FLUSH Last Admin: 02/11/21 13:55 Dose: 20 ml Documented by: Sodium Hypochlorite (Dakin's Ritika Half Strength (=0.25%)) 1 applic TOPICAL DAILY [facility]; Protocol Last Admin: 02/12/21 07:17 Dose: Not Given Documented by: Vancomycin HCl (Vancomcyin 125 Mg/5 Ml Susp Po.Syringe) 125 mg PO Q6 [facility] Last Admin: 02/12/21 07:19 Dose: 125 mg Documented by: Medical Necessity - Tobacco Use Smoking Status: Never smoker Tobacco Use: Non-smoker Assessment/Plan All Active Problems PAD (peripheral artery disease) (Acute) Other specified peripheral vascular diseases (Acute) Deep venous thrombosis of distal end of left lower extremity (Acute) Debility (Acute) Cellulitis of left foot (Acute) Abscess of left foot (Acute) Open left foot 2, 3, 4, 5th ray resection with additional foot incision and drainage secondary to left mid and forefoot abscess and prior open forefoot ampu tation by Dr Finn 02/02/21 planned staged procedure Diabetes with neuropathy Malnutrition suspected Deep venous thrombosis left posterior tibial vein Chronic diarrhea with history of C. difficile Other comorbidities: epilepsy, history of brain tumor, GERD Patient seen and evaluated I reviewed and discussed her case. She remains afebrile vitals are stable. Wound vac was reapplied and is to continue until further surgery. No further purulent drainage noted. There is some expanding duskiness noted to the lateral aspect of wound skin. Plan to await further demarcation before returning to surgery for attempted closure. To maintain a non weightbearing status of left lower extremity. Continue antibiotics per infectious disease Vessel calcification noted on arterial studies. Updated arterial Doppler performed. Vascular surgery consulted. Upon chart review is noted that patient per vascular surgery should have adequate perfusion through the left leg and that the calf vein DVT should not impede doing further surgery. No planed intervention. Staged transmetatarsal amputation (open versus closed) is recommended with consideration of Achilles tendon percutaneous lengthening versus gastrocnemius recession will be considered if equinus if she continues to demarcate well without infection and maintains a stable medical status. Anticipated anesthesia is general and local. I recommend holding off on staged foot surgery to allow continuation of anticoagulation medication for treatment of acute DVT as well as to allow further demarcation of the lateral skin flap to assess viability. The timing of this will be discussed with medical team. The procedure could be done without a tourniquet however additional bleeding would be anticipated. I recommend continued medical stability prior to proceeding forward with a goal time of within the next month. Current plan is for further surgical care by Dr Finn. Continue wound VAC at this time. Medical management per Dr. Ivy is appreciated and noted. Pain controlled with norco or tylenol if needed; currently stable. Updated C. difficile negative. Please do not hesitate to call with any questions. The podiatry team will continue to follow her closely while in the transitional care unit.
--- NOTE | 2021-02-12 07:39 | NURSING ---
Wound dressing changed by wound nurse
[2021-02-12 08:50] LABS: Bedside Glucose 200 mg/dL (70-110)
[2021-02-12 08:57] VITALS: BP 125/66; PULSE 85; RESP 16; TEMP 36.5; O2SAT 98
--- NOTE | 2021-02-12 08:58 | NURSING ---
IT SECURITY CONSULTANT got this nurse stating she needed help in patients room. Upon entering pt was sitting on bedside commode with therapy stating she felt like she was going to pass out. Pt was having a large loose bowel movement. Pt was cleansed and assisted back into bed with assist of 4. Pt kept falling asleep and wsa disoriented but would arouse to loud talking and touch this lasted just a couple minutes. VS and blood sugar WNL, pt is now in bed talking A/O x3 and back to base line, RN updated.
[2021-02-12] MEDS: Aspirin 81 MG TAB.CHEW PO (09:24)
[2021-02-12] MEDS: Iron Polysaccharide Complex 150 MG CAPSULE PO (09:24)
[2021-02-12] MEDS: Juven (unflavored) Packet 1 PACKET PO ×2 (09:24→17:36)
[2021-02-12 09:49] VITALS: PULSE 85; O2SAT 98
[2021-02-12 11:01] LABS: Bedside Glucose 130 mg/dL (70-110)
[2021-02-12 13:38] VITALS: BP 113/62; BP 127/61; BP 81/44; PULSE 100; PULSE 74; PULSE 80
[2021-02-12 13:39] VITALS: BP 127/61; PULSE 74; RESP 16; TEMP 36.7; O2SAT 98
[2021-02-12 14:12] LABS: Absolute Lymphocyte Count 3.44 X10^3/uL (0.83-4.51); Absolute Neutrophil Count 5.5 X10^3/uL (2.0-7.7); Basophil# 0.11 X10^3/uL; Basophil% 1.1 % (0-1); Eosinophil# 0.24 X10^3/uL; Eosinophils% 2.4 % (0-5); Hematocrit 29.1 % (37-47); Hemoglobin 9.2 g/dL (12.0-15.0); Lymphocyte # 3.44 X10^3/ul (0.83-4.51); Lymphocyte % 34.7 % (19-41); Mean Corp Hgb Conc 31.6 g/dL (32-36); Mean Corpuscular Hgb 30.6 pg (27.0-32.0); Mean Corpuscular Volume 96.7 fL (81-99); Mean Platelet Vol. 9.4 fl (6.2-12.0); Monocyte# 0.62 X10^3/uL; Monocyte% 6.3 % (0-10); NRBC Flagged by Analyzer 0 % (0-5); Neutrophil # 5.46 X10^3/uL (2.7-7.7); Platelet Count 265 K/mm3 (150-450); RBC Distribution Width CV 12.5 % (11.6-14.6); RBC Distribution Width SD 43.8 fl (35.1-43.9); Red Blood Count 3.01 M/mm3 (4.2-5.4); White Blood Count 9.9 K/mm3 (4.4-11.0)
[2021-02-12 14:28] LABS: Anion Gap 5 (5-15); BUN 29 mg/dL (7-18); BUN/Creat Ratio 42.3 RATIO (10-20); Calcium,Total 8.5 mg/dL (8.5-10.1); Chloride 104 mmol/L (98-107); Creatinine, Serum 0.69 mg/dL (0.55-1.02); EST Glomerular Filtration Rate 91 mL/min (>60); Est Glom Filt Rate - Afr Amer 111 mL/min (>60); Estimated Creatinine Clearance 70.19 ml/min; Glucose 139 mg/dL (74-106); Potassium 4.7 mmol/L (3.5-5.1); Sodium Level 135 mmol/L (136-145)
[2021-02-12 16:55] LABS: Bedside Glucose 173 mg/dL (70-110)
[2021-02-12] MEDS: Gabapentin 600 MG Tablet PO (21:38)
[2021-02-12] MEDS: 0.9% Saline Lock 10 ML Syringe IV (21:40)
[2021-02-12 21:41] LABS: Bedside Glucose 180 mg/dL (70-110)
[2021-02-12] MEDS: Acetaminophen 500 MG Tablet PO (21:47)
[2021-02-13] MEDS: 0.9% Saline Lock 10 ML Syringe IV ×4 (00:53→17:30)
[2021-02-13 05:00] VITALS: BP 114/58; PULSE 61; RESP 16; TEMP 36.4; O2SAT 97
[2021-02-13] MEDS: 0.9% Normal Saline 250 ML IV.SOLN. IV (05:15)
[2021-02-13] MEDS: APIXABAN 5 MG TABLET PO ×2 (05:21→17:34)
[2021-02-13] MEDS: Loperamide 2 MG Capsule 4 MG PO ×4 (05:22→19:58)
[2021-02-13] MEDS: Gabapentin 300 MG Capsule PO ×2 (05:22→17:35)
[2021-02-13] MEDS: guaiFENesin 600 MG Tablet 1200 MG PO ×2 (05:22→17:36)
[2021-02-13] MEDS: Pantoprazole Sodium 40 MG Tablet PO ×2 (05:22→17:38)
[2021-02-13] MEDS: Menthol/Lanolin/Calamine/Znox 113 GM Tube 1 APPLIC TOPICAL ×2 (05:22→17:34)
[2021-02-13] MEDS: Nystatin Powder 15gm Bottle 1 APPLIC TOPICAL ×3 (05:23→19:59)
[2021-02-13] MEDS: Fluticasone/Salmeterol 232-14 Inhaler 1 PUFF INHALATION ×2 (05:24→17:38)
[2021-02-13 06:40] LABS: Bedside Glucose 136 mg/dL (70-110)
[2021-02-13] MEDS: Juven (unflavored) Packet 1 PACKET PO ×2 (08:52→17:33)
[2021-02-13] MEDS: Iron Polysaccharide Complex 150 MG CAPSULE PO (08:53)
[2021-02-13] MEDS: Aspirin 81 MG TAB.CHEW PO (08:53)
[2021-02-13 11:16] LABS: Bedside Glucose 190 mg/dL (70-110)
[2021-02-13] MEDS: Acetaminophen 500 MG Tablet PO (13:34)
--- NOTE | 2021-02-13 14:08 | NURSING ---
WHEN HELPING PT UP FROM CHAIR THIS NURSE NOTICED A LONG SCRATCH ON PT UPPER RIGHT THIGH. ASKED PT HOW IT HAPPENED PT STATED I THINK I SCRATCH IT CAUSE I HAD BLOOD UNDER MY NAIL. REPORTED TO RN.
--- NOTE | 2021-02-13 14:21 | NURSING ---
FAMILY UPDATED AT VISIT
[2021-02-13 15:51] VITALS: BP 131/67; PULSE 74; RESP 16; TEMP 36.3; O2SAT 99
[2021-02-13 17:00] LABS: Bedside Glucose 183 mg/dL (70-110)
[2021-02-13 19:53] VITALS: BP 148/71; PULSE 78; RESP 18; TEMP 36.6; O2SAT 98
[2021-02-13] MEDS: Gabapentin 600 MG Tablet PO (20:06)
[2021-02-13 22:40] LABS: Bedside Glucose 265 mg/dL (70-110)
--- NOTE | 2021-02-14 00:05 | PCA ---
This SWEATBAND SEPARATOR came out of room 14 after doing pt care, answered call light system, call system read pt had been waiting over 9 minutes for call to be answered, this SWEATBAND SEPARATOR then went to pt room, pt was laying on her right side, pt did not answer when this SWEATBAND SEPARATOR said hello, I went to the pt bed and touched her shoulder asking her how she was, pt stated she felt dizzy and had to get back into bed, the bed side commode was next to the bed with feces in the bowel and all over the toilet seat, this SWEATBAND SEPARATOR cleaned pt and commode with Evelyn SWEATBAND SEPARATOR help, reported pt complaint of dizziness to Andrew HUMPHRIES. em
[2021-02-14 05:00] VITALS: BP 119/67; PULSE 65; RESP 18; TEMP 36.6; O2SAT 97
[2021-02-14 06:03] LABS: Absolute Lymphocyte Count 4.39 X10^3/uL (0.83-4.51); Basophil# 0.11 X10^3/uL; Basophil% 1.1 % (0-1); Eosinophils% 4.1 % (0-5); Hematocrit 26.7 % (37-47); Hemoglobin 8.1 g/dL (12.0-15.0); Lymphocyte # 4.39 X10^3/ul (0.83-4.51); Lymphocyte % 45.1 % (19-41); Mean Corp Hgb Conc 30.3 g/dL (32-36); Mean Corpuscular Hgb 29.1 pg (27.0-32.0); Mean Platelet Vol. 9.6 fl (6.2-12.0); Monocyte# 0.75 X10^3/uL; Monocyte% 7.7 % (0-10); NRBC Flagged by Analyzer 0 % (0-5); Neutrophil # 4.01 X10^3/uL (2.7-7.7); Neutrophil % 41.3 % (47-70); Platelet Count 327 K/mm3 (150-450); RBC Distribution Width CV 13.2 % (11.6-14.6); RBC Distribution Width SD 43.9 fl (35.1-43.9); Red Blood Count 2.78 M/mm3 (4.2-5.4); White Blood Count 9.7 K/mm3 (4.4-11.0)
[2021-02-14 06:17] LABS: Anion Gap 3 (5-15); BUN 31 mg/dL (7-18); BUN/Creat Ratio 42.6 RATIO (10-20); Calcium,Total 8.4 mg/dL (8.5-10.1); Chloride 105 mmol/L (98-107); Creatinine, Serum 0.73 mg/dL (0.55-1.02); EST Glomerular Filtration Rate 85 mL/min (>60); Est Glom Filt Rate - Afr Amer 103 mL/min (>60); Estimated Creatinine Clearance 66.35 ml/min; Glucose 126 mg/dL (74-106); Potassium 4.7 mmol/L (3.5-5.1); Sodium Level 135 mmol/L (136-145)
[2021-02-14 06:46] LABS: Bedside Glucose 112 mg/dL (70-110)
[2021-02-14] MEDS: Menthol/Lanolin/Calamine/Znox 113 GM Tube 1 APPLIC TOPICAL ×2 (06:49→16:42)
[2021-02-14] MEDS: APIXABAN 5 MG TABLET PO ×2 (06:50→16:52)
[2021-02-14] MEDS: Gabapentin 300 MG Capsule PO ×2 (06:50→16:52)
[2021-02-14] MEDS: Fluticasone/Salmeterol 232-14 Inhaler 1 PUFF INHALATION ×2 (06:50→16:53)
[2021-02-14] MEDS: Loperamide 2 MG Capsule 4 MG PO ×4 (06:50→21:54)
[2021-02-14] MEDS: Pantoprazole Sodium 40 MG Tablet PO ×2 (06:50→16:52)
[2021-02-14] MEDS: guaiFENesin 600 MG Tablet 1200 MG PO ×2 (06:50→16:51)
[2021-02-14] MEDS: Nystatin Powder 15gm Bottle 1 APPLIC TOPICAL ×3 (06:51→21:54)
[2021-02-14] MEDS: Aspirin 81 MG TAB.CHEW PO (09:01)
[2021-02-14] MEDS: Juven (unflavored) Packet 1 PACKET PO ×2 (09:01→16:41)
[2021-02-14] MEDS: Iron Polysaccharide Complex 150 MG CAPSULE PO (09:01)
[2021-02-14] MEDS: Acetaminophen 500 MG Tablet PO (09:09)
[2021-02-14 10:30] VITALS: PULSE 102; RESP 18; O2SAT 98
[2021-02-14] MEDS: 0.9% Saline Lock 10 ML Syringe IV (10:30)
[2021-02-14 11:16] LABS: Bedside Glucose 157 mg/dL (70-110)
[2021-02-14 15:35] VITALS: BP 113/60; PULSE 72; RESP 14; TEMP 36.9; O2SAT 97
[2021-02-14 16:40] LABS: Bedside Glucose 176 mg/dL (70-110)
[2021-02-14 21:20] LABS: Bedside Glucose 239 mg/dL (70-110)
[2021-02-14] MEDS: HYDROcodone Bitartrate/Apap 5/325 Tablet PO (21:51)
[2021-02-14] MEDS: Gabapentin 600 MG Tablet PO (21:54)
[2021-02-14] MEDS: Acetaminophen 500 MG Tablet 1000 MG PO (23:44)
[2021-02-15 05:00] VITALS: BP 107/62; PULSE 70; RESP 18; TEMP 36.6; O2SAT 97
[2021-02-15] MEDS: Fluticasone/Salmeterol 232-14 Inhaler 1 PUFF INHALATION ×2 (06:02→17:00)
[2021-02-15] MEDS: guaiFENesin 600 MG Tablet 1200 MG PO ×2 (06:02→16:59)
[2021-02-15] MEDS: Loperamide 2 MG Capsule 4 MG PO ×4 (06:02→21:59)
[2021-02-15] MEDS: Pantoprazole Sodium 40 MG Tablet PO ×2 (06:03→16:59)
[2021-02-15] MEDS: Gabapentin 300 MG Capsule PO ×2 (06:03→16:59)
[2021-02-15] MEDS: Menthol/Lanolin/Calamine/Znox 113 GM Tube 1 APPLIC TOPICAL ×2 (06:03→17:00)
[2021-02-15] MEDS: APIXABAN 5 MG TABLET PO ×2 (06:03→16:59)
[2021-02-15] MEDS: Nystatin Powder 15gm Bottle 1 APPLIC TOPICAL ×3 (06:03→21:59)
[2021-02-15 06:21] LABS: Bedside Glucose 116 mg/dL (70-110)
[2021-02-15] MEDS: Juven (unflavored) Packet 1 PACKET PO ×2 (08:09→16:36)
[2021-02-15] MEDS: Iron Polysaccharide Complex 150 MG CAPSULE PO (08:09)
[2021-02-15] MEDS: Aspirin 81 MG TAB.CHEW PO (08:09)
[2021-02-15 10:50] LABS: Bedside Glucose 209 mg/dL (70-110)
[2021-02-15] MEDS: 0.9% Saline Lock 10 ML Syringe IV ×3 (13:12→21:57)
[2021-02-15 13:55] VITALS: BP 125/73; PULSE 75; RESP 20; TEMP 36.4; O2SAT 98
--- NOTE | 2021-02-15 14:35 | NURSING ---
wound photo: left foot (lateral view)
--- NOTE | 2021-02-15 14:36 | NURSING ---
wound photo: left foot
--- NOTE | 2021-02-15 15:23 | NURSING ---
wound nurse in today, changed wound vac
[2021-02-15 16:25] LABS: Bedside Glucose 227 mg/dL (70-110)
[2021-02-15] MEDS: Gabapentin 600 MG Tablet PO (21:58)
[2021-02-15 22:00] LABS: Bedside Glucose 288 mg/dL (70-110)
[2021-02-15] MEDS: HYDROcodone Bitartrate/Apap 5/325 Tablet PO (22:02)
[2021-02-16 05:00] VITALS: BP 113/62; PULSE 70; RESP 16; TEMP 36.4; O2SAT 98
[2021-02-16 05:57] LABS: Hematocrit 26.2 % (37-47)
[2021-02-16] MEDS: 0.9% Saline Lock 10 ML Syringe IV ×4 (05:58→23:55)
[2021-02-16] MEDS: Fluticasone/Salmeterol 232-14 Inhaler 1 PUFF INHALATION ×2 (05:59→17:39)
[2021-02-16] MEDS: Pantoprazole Sodium 40 MG Tablet PO ×2 (06:00→17:38)
[2021-02-16] MEDS: Gabapentin 300 MG Capsule PO ×2 (06:00→17:39)
[2021-02-16] MEDS: APIXABAN 5 MG TABLET PO ×2 (06:00→17:37)
[2021-02-16] MEDS: Loperamide 2 MG Capsule 4 MG PO ×4 (06:01→22:49)
[2021-02-16] MEDS: guaiFENesin 600 MG Tablet 1200 MG PO ×2 (06:01→17:38)
[2021-02-16] MEDS: Menthol/Lanolin/Calamine/Znox 113 GM Tube 1 APPLIC TOPICAL ×2 (06:02→17:37)
[2021-02-16] MEDS: Nystatin Powder 15gm Bottle 1 APPLIC TOPICAL ×3 (06:03→22:50)
[2021-02-16 06:16] LABS: Bedside Glucose 127 mg/dL (70-110)
[2021-02-16] MEDS: Aspirin 81 MG TAB.CHEW PO (08:23)
[2021-02-16] MEDS: Juven (unflavored) Packet 1 PACKET PO ×2 (08:23→17:36)
[2021-02-16] MEDS: Iron Polysaccharide Complex 150 MG CAPSULE PO (08:23)
[2021-02-16] MEDS: Acetaminophen 500 MG Tablet PO ×2 (08:32→20:06)
[2021-02-16 10:00] VITALS: RESP 18
[2021-02-16 10:55] LABS: Bedside Glucose 180 mg/dL (70-110)
[2021-02-16 14:29] VITALS: BP 146/75; PULSE 70; RESP 16; TEMP 36.9; O2SAT 97
--- NOTE | 2021-02-16 16:11 | NURSING ---
NEW IV STARTED IN RIGHT WRIST BY TILE LAYER MALINA DUE TO LAST IV RIGHT FOREARM NO LONGER PATENT. RN AWARE
[2021-02-16 16:41] LABS: Bedside Glucose 177 mg/dL (70-110)
[2021-02-16 20:03] VITALS: TEMP 36.9
[2021-02-16] MEDS: Ondansetron ODT 4 MG Tablet PO (20:06)
[2021-02-16 21:41] LABS: Bedside Glucose 166 mg/dL (70-110)
[2021-02-16] MEDS: Gabapentin 600 MG Tablet PO (22:50)
[2021-02-17] MEDS: APIXABAN 5 MG TABLET PO ×2 (04:53→17:30)
[2021-02-17] MEDS: Menthol/Lanolin/Calamine/Znox 113 GM Tube 1 APPLIC TOPICAL ×2 (04:53→17:30)
[2021-02-17] MEDS: Loperamide 2 MG Capsule 4 MG PO ×4 (04:54→22:19)
[2021-02-17] MEDS: guaiFENesin 600 MG Tablet 1200 MG PO ×2 (04:55→17:29)
[2021-02-17] MEDS: Nystatin Powder 15gm Bottle 1 APPLIC TOPICAL ×3 (04:55→22:20)
[2021-02-17] MEDS: Fluticasone/Salmeterol 232-14 Inhaler 1 PUFF INHALATION ×2 (04:56→17:30)
[2021-02-17] MEDS: Pantoprazole Sodium 40 MG Tablet PO ×2 (04:56→17:29)
[2021-02-17] MEDS: Gabapentin 300 MG Capsule PO ×2 (04:56→17:29)
[2021-02-17] MEDS: 0.9% Saline Lock 10 ML Syringe IV ×5 (04:59→22:21)
[2021-02-17 05:00] VITALS: BP 98/59; PULSE 62; RESP 15; TEMP 36.2; O2SAT 95
[2021-02-17] MEDS: Acetaminophen 500 MG Tablet PO (05:06)
[2021-02-17 06:31] LABS: Bedside Glucose 152 mg/dL (70-110)
[2021-02-17] MEDS: Iron Polysaccharide Complex 150 MG CAPSULE PO (07:58)
[2021-02-17] MEDS: Juven (unflavored) Packet 1 PACKET PO ×2 (07:58→17:27)
[2021-02-17] MEDS: Aspirin 81 MG TAB.CHEW PO (07:58)
--- NOTE | 2021-02-17 08:34 | PCM.PROGNOTE ---
Patient Problems: Active and Suspected Problems PAD (peripheral artery disease) (Acute) Debility (Acute) Cellulitis of left foot (Acute) Osteomyelitis of left foot (Suspected) Abscess of left foot (Acute) Subjective: This 66-year-old female with multiple comorbidities was seen bedside this morning for open left ray resections for treatment of severe foot infection. She denies fever, chill, nausea, vomiting, calf pain, shortness of breath or chest pain. She relates her fatigue is decreasing. - Physical Exam Vitals/I&O's: Vital Signs Temp Pulse Resp BP Pulse Ox 97.1 F L 62 15 98/59 L 95 02/17/21 05:00 02/17/21 05:00 02/17/21 05:00 02/17/21 05:00 02/17/21 05:00 Oxygen Delivery Method Room Air Weight: 68.765 kg Body Mass Index (BMI) 26.1 Orthostatic Vital Signs Start: 02/03/21 16:30 Freq: Status: Active Protocol: Activity Type Activity Date Activity User E-Sign Co-Sign Detail Recorded Client Recorded Date Recorded By Document 02/12/21 13:38 ML [id number] 02/12/21 13:39 ML 02/12/21 13:38 Orthostatic Vitals Standing -Blood Pressure (90/60-120/80) 81/44 L -Extremity Use Right Arm -Pulse Rate (60-100) 100 Sitting -Blood Pressure (90/60-120/80) 113/62 -Extremity Use Right Arm -Pulse Rate (60-100) 80 Lying -Blood Pressure (90/60-120/80) 127/61 H -Extremity Use Right Arm -Pulse Rate (60-100) 74 Intake and Output for Last 24 Hours 02/15/21 02/16/21 02/17/21 23:59 23:59 23:59 Intake Total 1560 / 1560 804 / 804 120 / 120 Balance 1560 / 1560 804 / 804 120 / 120 General: Alert, Oriented x3, Cooperative HEENT: Atraumatic Extremities: Capillary Refill Less than 3 Seconds - Left hallux and to the dorsal open amputation site and plantar aspect as well. There is no capillary refill time and dusky transformation of the lateral open amputation flap site., Diminished Peripheral Pulses, Edema - Decreased left foot, - - Ankle joint dorsiflexion of the left lower extremity with the knee extended is approximately 5 degrees and over 5 degrees with the knee bent. Skin: Ulcer/ Wound - There is no erythema, streaking, purulence, odor. Progressive granulation tissue was noted at the open amputation site. There is no cornelius necrosis or eschar formation at the base of the open amputation site Musculoskeletal: Muscle Wasting, - - Minimal tenderness with palpation of open amputation site Neurological: - - Lack of normal epicritic sensation to light touch Psych/Mental Status: Normal Affect, Appropriate Laboratory Results 02/16/21 10:48: POC Glucose 180 H 02/16/21 16:36: POC Glucose 177 H 02/16/21 21:21: POC Glucose 166 H 02/17/21 06:13: POC Glucose 152 H Current Medications Acetaminophen (Acetaminophen 500 Mg Tablet) 1,000 mg PO Q6H PRN PRN Reason: FEVER Last Admin: 02/14/21 23:44 Dose: 1,000 mg Documented by: Acetaminophen (Acetaminophen 500 Mg Tablet) 500 mg PO Q6H PRN PRN PRN Reason: Pain Score 1-5 Last Admin: 02/17/21 05:06 Dose: 500 mg Documented by: Hydrocodone Bitart/Acetaminophen (Hydrocodone Bitartrate/Apap 5/325 Tablet) 1 tablet PO Q6H PRN PRN PRN Reason: Pain Score 6-10 Last Admin: 02/15/21 22:02 Dose: 1 tablet Documented by: Albuterol Sulfate (Albuterol Sulfate 8 Gm Inhaler (60 Puffs)) 1 puff INHALATION Q4H PRN PRN PRN Reason: SHORTNESS OF BREATH Last Admin: 02/02/21 06:06 Dose: 1 puff Documented by: Apixaban (Apixaban 5 Mg Tablet) 5 mg PO BID [facility] Stop: 05/15/21 18:00 Last Admin: 02/17/21 04:53 Dose: 5 mg Documented by: Aspirin (Aspirin 81 Mg Tab.Chew) 81 mg PO DAILY@0800 [facility] Last Admin: 02/17/21 07:58 Dose: 81 mg Documented by: Calamine/Phenol (Menthol/Lanolin/Calamine/Znox 113 Gm Tube) 1 applic TOPICAL BID [facility]; Protocol Last Admin: 02/17/21 04:53 Dose: 1 applic Documented by: Gabapentin (Gabapentin 300 Mg Capsule) 300 mg PO BID [facility] Last Admin: 02/17/21 04:56 Dose: 300 mg Documented by: Gabapentin (Gabapentin 600 Mg Tablet) 600 mg PO QHS [facility] Last Admin: 02/16/21 22:50 Dose: 600 mg Documented by: Guaifenesin (Guaifenesin 600 Mg Tablet) 1,200 mg PO BID [facility] Last Admin: 02/17/21 04:55 Dose: 1,200 mg Documented by: Meropenem 1 gm/ Sodium (Chloride) 120 mls @ 33 mls/hr IV Q8 [facility] Last Admin: 02/17/21 06:38 Dose: 33 mls/hr Documented by: L-Arginine/L-Glutamine/Calcium HMB (Alfredo (Unflavored) Packet) 1 packet PO BIDCM [facility] Last Admin: 02/17/21 07:58 Dose: 1 packet Documented by: Lactobacillus Acidophilus (Lactobacillus Acidophilus) 1 tablet PO TID [facility] Last Admin: 02/17/21 04:53 Dose: 1 tablet Documented by: Loperamide HCl (Loperamide 2 Mg Capsule) 4 mg PO 4X/DAY [facility] Last Admin: 02/17/21 04:54 Dose: 4 mg Documented by: Nystatin (Nystatin Powder 15gm Bottle) 1 applic TOPICAL TID [facility]; Protocol Last Admin: 02/17/21 04:55 Dose: 1 applic Documented by: Ondansetron HCl (Ondansetron Odt 4 Mg Tablet) 4 mg PO Q6H PRN PRN PRN Reason: NAUSEA Last Admin: 02/16/21 20:06 Dose: 4 mg Documented by: Pancrelipase (Creon 6,[address] Capsule) 1 capsule PO TIDCM [facility] Last Admin: 02/17/21 07:57 Dose: 1 capsule Documented by: Pantoprazole Sodium (Pantoprazole Sodium 40 Mg Tablet) 40 mg PO BID [facility] Last Admin: 02/17/21 04:56 Dose: 40 mg Documented by: Polysaccharide Iron Complex (Iron Polysaccharide Complex 150 Mg Capsule) [facility] Last Admin: 02/17/21 07:58 Dose: 150 mg Documented by: Fluticasone/Salmeterol (Fluticasone/Salmeterol 232-14 Inhaler) 1 puff INHALATION Q12 [facility] Last Admin: 02/17/21 04:56 Dose: 1 puff Documented by: Sodium Chloride (0.9 % Nacl (Sterile) Posiflush 10 Ml) 10 ml IV PRN PRN PRN Reason: maintain patency Last Admin: 02/02/21 01:18 Dose: 10 ml Documented by: Sodium Chloride (0.9% Normal Saline 250 Ml Iv.Soln.) 250 ml IV PRN PRN PRN Reason: flush atb post infusion and maintain patency Last Admin: 02/13/21 05:15 Dose: 250 ml Documented by: Sodium Chloride (0.9% Saline Lock 10 Ml Syringe) 10 - 40 ml IV UD PRN PRN Reason: SALINE FLUSH Last Admin: 02/17/21 06:33 Dose: 10 ml Documented by: Sodium Hypochlorite (Dakin's Ritika Half Strength (=0.25%)) 1 applic TOPICAL DAILY [facility]; Protocol Last Admin: 02/17/21 03:42 Dose: Not Given Documented by: Vancomycin HCl (Vancomcyin 125 Mg/5 Ml Susp Po.Syringe) 125 mg PO Q6 [facility] Last Admin: 02/17/21 06:27 Dose: 125 mg Documented by: Medical Necessity - Tobacco Use Smoking Status: Never smoker Tobacco Use: Non-smoker Assessment/Plan All Active Problems PAD (peripheral artery disease) (Acute) Other specified peripheral vascular diseases (Acute) Deep venous thrombosis of distal end of left lower extremity (Acute) Debility (Acute) Cellulitis of left foot (Acute) Abscess of left foot (Acute) Open left foot 2, 3, 4, 5th ray resection with additional foot incision and drainage secondary to left mid and forefoot abscess and prior open forefoot amputation on 02/02/21 with planned staged procedure Diabetes with neuropathy Malnutrition suspected Deep venous thrombosis left posterior tibial vein Chronic diarrhea with history of C. difficile (not currently) Other comorbidities: epilepsy, history of brain tumor, GERD Patient seen and evaluated this morning. I reviewed and discussed her case. She remains afebrile vitals are stable. Wound vac was reapplied and is to continue until further surgery. No further purulent drainage noted. There is some identified duskiness noted to the lateral aspect of wound skin. To maintain a non weightbearing status of left lower extremity. Continue antibiotics per infectious disease. She is on meropenem and vancomycin IV. Updated clearance fragments will be obtained for microbiology and pathology assessment during her staged surgery. Vessel calcification noted on arterial studies. Vascular consult with Dr. Hugo is appreciated. Arterial intervention is not recommended at this time. Her incidental left posterior tibial vein deep venous thrombosis was identified during this arterial exam it is not recommended to delay surgery due to this finding. She is on Eliquis. Staged transmetatarsal amputation (open versus closed) is recommended with consideration of Achilles tendon percutaneous lengthening versus gastrocnemius recession will be considered if equinus is noted when tested under anesthesia. Anticipated anesthesia is general and local. She appears to be stabilizing from a systemic and foot standpoint. Surgery is tentatively planned for this upcoming Monday. Her hemoglobin is around 8 and she will be transfused tomorrow (2 units). Her Eliquis also be held. Tourniquet use will be considered if location of clot is confirmed and if needed to prevent excessive blood loss. Her surgical consents were already signed. She understands indications, benefits, risk, complications and anticipated healing time and management. I answered all the patient's questions. Medical management per Dr. Ivy is appreciated and noted. Pain controlled with norco or tylenol if needed; currently stable. Please do not hesitate to call with any questions. Stacie Finn DPM, [facility] [phone]
[2021-02-17 10:56] LABS: Bedside Glucose 148 mg/dL (70-110)
[2021-02-17 15:36] VITALS: BP 118/61; PULSE 68; RESP 14; TEMP 36; O2SAT 97
[2021-02-17 16:26] LABS: Bedside Glucose 188 mg/dL (70-110)
[2021-02-17 21:30] LABS: Bedside Glucose 217 mg/dL (70-110)
[2021-02-17] MEDS: Gabapentin 600 MG Tablet PO (22:20)
[2021-02-17] MEDS: Acetaminophen 500 MG Tablet 1000 MG PO (22:26)
[2021-02-18] MEDS: Ondansetron ODT 4 MG Tablet PO (00:22)
[2021-02-18 06:30] LABS: Bedside Glucose 128 mg/dL (70-110)
[2021-02-18] MEDS: 0.9% Normal Saline 250 ML IV.SOLN. IV (06:36)
[2021-02-18] MEDS: 0.9% Saline Lock 10 ML Syringe IV ×2 (06:36→21:46)
[2021-02-18 06:39] VITALS: BP 114/59; PULSE 63; RESP 16; TEMP 37.1; O2SAT 98
[2021-02-18] MEDS: Nystatin Powder 15gm Bottle 1 APPLIC TOPICAL ×3 (06:41→21:04)
[2021-02-18] MEDS: Menthol/Lanolin/Calamine/Znox 113 GM Tube 1 APPLIC TOPICAL ×2 (06:41→17:56)
[2021-02-18] MEDS: Fluticasone/Salmeterol 232-14 Inhaler 1 PUFF INHALATION ×2 (06:45→17:57)
[2021-02-18] MEDS: Gabapentin 300 MG Capsule PO ×2 (06:46→17:55)
[2021-02-18] MEDS: guaiFENesin 600 MG Tablet 1200 MG PO ×2 (06:46→17:55)
[2021-02-18] MEDS: Loperamide 2 MG Capsule 4 MG PO ×4 (06:46→21:03)
[2021-02-18] MEDS: Pantoprazole Sodium 40 MG Tablet PO ×2 (06:46→17:56)
[2021-02-18] MEDS: Iron Polysaccharide Complex 150 MG CAPSULE PO (07:50)
[2021-02-18] MEDS: Aspirin 81 MG TAB.CHEW PO (07:50)
[2021-02-18] MEDS: Juven (unflavored) Packet 1 PACKET PO ×2 (07:50→17:52)
[2021-02-18 16:00] VITALS: BP 132/69; PULSE 65; RESP 20; TEMP 36.1; O2SAT 97
[2021-02-18 16:21] LABS: Bedside Glucose 141 mg/dL (70-110)
[2021-02-18] MEDS: Acetaminophen 500 MG Tablet 1000 MG PO (18:01)
[2021-02-18] MEDS: Gabapentin 600 MG Tablet PO (21:03)
[2021-02-18 22:06] LABS: Bedside Glucose 222 mg/dL (70-110)
--- NOTE | 2021-02-19 00:06 | NURSING ---
Pt NPO at 00:00. Resting in bed at this time call light within reach.
[2021-02-19 04:49] VITALS: BP 120/58; PULSE 67; RESP 16; TEMP 36.2; O2SAT 95
[2021-02-19 05:42] LABS: Absolute Neutrophil Count 3.5 X10^3/uL (2.0-7.7); Basophil# 0.13 X10^3/uL; Basophil% 1.4 % (0-1); Eosinophil# 0.56 X10^3/uL; Eosinophils% 6.2 % (0-5); Hematocrit 35.9 % (37-47); Hemoglobin 11.1 g/dL (12.0-15.0); Lymphocyte % 45.2 % (19-41); Mean Corp Hgb Conc 30.9 g/dL (32-36); Mean Corpuscular Hgb 29.1 pg (27.0-32.0); Mean Platelet Vol. 9.8 fl (6.2-12.0); Monocyte# 0.73 X10^3/uL; NRBC Flagged by Analyzer 0 % (0-5); Neutrophil # 3.53 X10^3/uL (2.7-7.7); Platelet Count 407 K/mm3 (150-450); RBC Distribution Width CV 15.7 % (11.6-14.6); RBC Distribution Width SD 53.4 fl (35.1-43.9); Red Blood Count 3.82 M/mm3 (4.2-5.4); White Blood Count 9.1 K/mm3 (4.4-11.0)
[2021-02-19] MEDS: Pantoprazole Sodium 40 MG Tablet PO ×2 (05:50→17:43)
[2021-02-19 06:21] LABS: Bedside Glucose 130 mg/dL (70-110)
[2021-02-19] MEDS: 0.9% Saline Lock 10 ML Syringe IV ×3 (06:33→17:54)
[2021-02-19] MEDS: Fluticasone/Salmeterol 232-14 Inhaler 1 PUFF INHALATION ×2 (09:09→17:41)
--- NOTE | 2021-02-19 09:15 | NURSING ---
PT LEFT FLOOR BY BED AT 9:15 AM FOR SURGERY.
--- NOTE | 2021-02-19 10:26 | DCINST_ITS ---
Discharge Activity: May Not Shower, Use Walker Weight Bearing Status: No weight bearing Call your doctor if your incision/area has: Continuous Slow Oozing, Sudden Increased Bleeding, Increased Pain/ Swelling, Increased Redness, Foul Smelling Discharge, Swelling at the incision site Call your doctor if you observe: Fever of 101 or Higher, Calf discomfort, Uncontrolled pain Cleanse incision/area with: Keep Dressing Clean & Dry Allergies/Adverse Reactions: Allergies cefprozil Allergy (Verified 02/19/21 09:42) Shortness of breath ceftriaxone Allergy (Verified 02/19/21 09:42) Hives clindamycin Allergy (Verified 02/19/21 09:42) Rash enalapril Allergy (Verified 02/19/21 09:42) Other enoxaparin Allergy (Verified 02/19/21 09:42) Rash heparin Allergy (Verified 02/19/21 09:42) Rash levalbuterol Allergy (Verified 02/19/21 09:42) Other morphine Allergy (Verified 02/19/21 09:42) Shortness of breath Penicillins Allergy (Verified 02/19/21 09:42) Anaphylaxis shellfish derived Allergy (Verified 02/19/21 09:42) Anaphylaxis valsartan Allergy (Verified 02/19/21 09:42) Other vancomycin Allergy (Verified 02/19/21 09:42) Rash Medications to take at Discharge Albuterol IH (ProAir) [Proair Hfa (SP)Vent Pts] 1 puff INHALATION Q4H PRN PRN 01/30/21 Budesonide/Formoterol Fumarate [Budesonide-Formoterol 160-4.5] 2 puff IH BID 01/30/21 Ciprofloxacin [Cipro] 500 mg PO BID 01/30/21 Doxycycline 100 mg PO BID 01/30/21 Gabapentin 300 mg PO BID 01/30/21 Gabapentin [Neurontin] 600 mg PO QHS 01/30/21 Guaifenesin [Mucinex] 1,200 mg PO BID 01/30/21 Insulin NPH Human Isophane [Humulin N Kwikpen] 100 units SC DAILY 01/30/21 Lactobacillus Acidophilus [Acidophilus] 1 each PO DAILY 01/30/21 Lansoprazole [Prevacid] 15 mg PO BID 01/30/21 Lansoprazole [Prevacid] 30 mg PO BID 01/30/21 Loperamide HCl [Imodium A-D] 6 mg PO TID 01/30/21 Ondansetron HCl [Zofran] 4 mg PO Q6H PRN PRN 01/30/21 Tramadol HCl [Ultram] 50 mg PO Q6H PRN PRN 01/30/21 Primary Care Physician: Cody Billings MD [Primary Care Provider] - Test Results: Test results from this visit will be discussed in further detail at your follow- up appointment, if applicable. Please Follow Up With: Stacie Finn DPM When: Will perform post operative evaluations while you are in transitional care Proposed Discharge Date: 02/19/21
--- NOTE | 2021-02-19 11:55 | PCM.OPRPT ---
Problem List (1) Abscess of left foot Status: Acute (2) Type 2 diabetes mellitus with diabetic polyneuropathy Status: Chronic (3) Osteomyelitis of left foot Status: Suspected
[2021-02-19 14:32] VITALS: BP 143/69; PULSE 63; RESP 16; TEMP 35.9; O2SAT 98
[2021-02-19] MEDS: Nystatin Powder 15gm Bottle 1 APPLIC TOPICAL ×2 (14:41→22:37)
[2021-02-19] MEDS: Acetaminophen 500 MG Tablet PO (14:51)
--- NOTE | 2021-02-19 14:53 | NURSING ---
pt returned to floor by bed from surgery at 1415. pt stable,vitals done. pt sitting up in bed eating lunch and talking with in room. pt complained of headache,prn pain med given. rn aware
[2021-02-19 15:40] VITALS: PULSE 68; RESP 18; O2SAT 96
[2021-02-19 16:21] LABS: Bedside Glucose 156 mg/dL (70-110)
[2021-02-19 17:30] VITALS: BP 101/56; PULSE 66; RESP 16; TEMP 36.7; O2SAT 97
--- NOTE | 2021-02-19 17:33 | NURSING ---
family updated in room
--- NOTE | 2021-02-19 17:36 | NURSING ---
vitals done,pt requested a cool wash cloth for fore head due to headache coming back.
[2021-02-19] MEDS: Juven (unflavored) Packet 1 PACKET PO (17:38)
[2021-02-19] MEDS: Menthol/Lanolin/Calamine/Znox 113 GM Tube 1 APPLIC TOPICAL (17:40)
[2021-02-19] MEDS: Loperamide 2 MG Capsule 4 MG PO ×2 (17:40→22:20)
[2021-02-19] MEDS: Gabapentin 300 MG Capsule PO (17:42)
[2021-02-19] MEDS: guaiFENesin 600 MG Tablet 1200 MG PO (17:42)
--- NOTE | 2021-02-19 19:11 | NURSING ---
pt complained of a sore spot on roof of mouth. this nurse seen small bump,slight redness and looks like small slit. asked pt how long she has had it,pt stated a few days. rn aware.
[2021-02-19 21:35] LABS: Bedside Glucose 236 mg/dL (70-110)
[2021-02-19] MEDS: HYDROcodone Bitartrate/Apap 5/325 Tablet PO (22:16)
[2021-02-19] MEDS: Gabapentin 600 MG Tablet PO (22:19)
[2021-02-20 06:16] LABS: Bedside Glucose 136 mg/dL (70-110)
[2021-02-20 06:18] VITALS: BP 120/60; PULSE 64; RESP 16; TEMP 37.1; O2SAT 97
[2021-02-20] MEDS: guaiFENesin 600 MG Tablet 1200 MG PO ×2 (06:22→18:04)
[2021-02-20] MEDS: Gabapentin 300 MG Capsule PO ×2 (06:23→18:04)
[2021-02-20] MEDS: Pantoprazole Sodium 40 MG Tablet PO ×2 (06:23→18:04)
[2021-02-20] MEDS: Loperamide 2 MG Capsule 4 MG PO ×4 (06:23→22:07)
[2021-02-20] MEDS: Fluticasone/Salmeterol 232-14 Inhaler 1 PUFF INHALATION ×2 (06:27→18:05)
[2021-02-20] MEDS: Menthol/Lanolin/Calamine/Znox 113 GM Tube 1 APPLIC TOPICAL ×2 (06:28→18:05)
[2021-02-20] MEDS: Nystatin Powder 15gm Bottle 1 APPLIC TOPICAL ×3 (06:33→22:07)
[2021-02-20] MEDS: APIXABAN 5 MG TABLET PO ×2 (06:33→18:05)
[2021-02-20] MEDS: Ondansetron ODT 4 MG Tablet PO ×3 (06:34→22:07)
[2021-02-20] MEDS: HYDROcodone Bitartrate/Apap 5/325 Tablet PO ×3 (06:43→22:12)
[2021-02-20 08:21] LABS: Hematocrit 34.5 % (37-47); Hemoglobin 10.5 g/dL (12.0-15.0)
--- NOTE | 2021-02-20 08:40 | PCM.PROGNOTE ---
Patient Problems: Active and Suspected Problems PAD (peripheral artery disease) (Acute) Debility (Acute) Cellulitis of left foot (Acute) Subjective: This 61-year-old female with multiple comorbidities was seen bedside postoperative day #1 left transmetatarsal amputation with closure. She relates her pain today is at worst a 2 out of 10 and is controlled well with her pain medications that have been ordered. She denies fever, chill, nausea, vomiting, chest pain, shortness of breath, calf pain. - Physical Exam Vitals/I&O's: Vital Signs Temp Pulse Resp BP Pulse Ox 98.7 F 64 16 120/60 97 02/20/21 06:18 02/20/21 06:18 02/20/21 06:18 02/20/21 06:18 02/20/21 06:18 Oxygen Delivery Method Room Air Weight: 68.765 kg Body Mass Index (BMI) 26.1 Orthostatic Vital Signs Start: 02/03/21 16:30 Freq: Status: Active Protocol: Activity Type Activity Date Activity User E-Sign Co-Sign Detail Recorded Client Recorded Date Recorded By Document 02/12/21 13:38 ML [id number] 02/12/21 13:39 ML 02/12/21 13:38 Orthostatic Vitals Standing -Blood Pressure (90/60-120/80 mm Hg) 81/44 L -Extremity Use Right Arm -Pulse Rate (60-100 beats/min) 100 Sitting -Blood Pressure (90/60-120/80 mm Hg) 113/62 -Extremity Use Right Arm -Pulse Rate (60-100 beats/min) 80 Lying -Blood Pressure (90/60-120/80 mm Hg) 127/61 H -Extremity Use Right Arm -Pulse Rate (60-100 beats/min) 74 Intake and Output for Last 24 Hours 02/18/21 02/19/21 02/20/21 23:59 23:59 23:59 Intake Total 777.7 / 777.7 600 / 600 480 / 480 Balance 777.7 / 777.7 600 / 600 480 / 480 General: Alert, Oriented x3, Cooperative Extremities: No cyanosis, Capillary Refill Less than 3 Seconds - Adjacent to all borders of the flap at the amputation site, Diminished Peripheral Pulses, Edema - Mild amputation stump site, - - Negative Mchugh sign right. Not tested on left due to known deep venous thrombosis mid calf. Transmetatarsal amputation noted left Skin: Incision - Well aligned and coapted without gapping, necrosis, erythema, streaking, bogginess, fluctuance, or odor. There does not appear to be tension on the flap closure site. Her skin is atrophic Musculoskeletal: Muscle Wasting, Tenderness - Very mild tenderness with palpation to the surgical sites, - - Compartments remain soft to palpate left lower extremity Neurological: - - Lack of normal epicritic sensation to light touch is consistent with neuropathic status Psych/Mental Status: Normal Affect, Appropriate Microbiology Past 72 Hours 02/18/21 15:30 Mucosa - Nose SARS-CoV-2 Antigen (Rapid) - Final Laboratory Results 02/19/21 16:08: POC Glucose 156 H 02/19/21 21:22: POC Glucose 236 H 02/20/21 06:05: POC Glucose 136 H 02/20/21 07:48: Hgb 10.5 L, Hct 34.5 L Current Medications Acetaminophen (Acetaminophen 500 Mg Tablet) 1,000 mg PO Q6H PRN PRN Reason: FEVER Last Admin: 02/18/21 18:01 Dose: 1,000 mg Documented by: Acetaminophen (Acetaminophen 500 Mg Tablet) 500 mg PO Q6H PRN PRN PRN Reason: Pain Score 1-5 Last Admin: 02/19/21 14:51 Dose: 500 mg Documented by: Hydrocodone Bitart/Acetaminophen (Hydrocodone Bitartrate/Apap 5/325 Tablet) 1 - 2 tablet PO Q6H PRN PRN PRN Reason: Pain Score 4-10 Last Admin: 02/20/21 06:43 Dose: 2 tablet Documented by: Albuterol Sulfate (Albuterol Sulfate 8 Gm Inhaler (60 Puffs)) 1 puff INHALATION Q4H PRN PRN PRN Reason: SHORTNESS OF BREATH Last Admin: 02/02/21 06:06 Dose: 1 puff Documented by: Apixaban (Apixaban 5 Mg Tablet) 5 mg PO BID [facility] Stop: 05/15/21 18:00 Last Admin: 02/20/21 06:33 Dose: 5 mg Documented by: Aspirin (Aspirin 81 Mg Tab.Chew) 81 mg PO DAILY@0800 [facility] Last Admin: 02/18/21 07:50 Dose: 81 mg Documented by: Calamine/Phenol (Menthol/Lanolin/Calamine/Znox 113 Gm Tube) 1 applic TOPICAL BID [facility]; Protocol Last Admin: 02/20/21 06:28 Dose: 1 applic Documented by: Gabapentin (Gabapentin 300 Mg Capsule) 300 mg PO BID [facility] Last Admin: 02/20/21 06:23 Dose: 300 mg Documented by: Gabapentin (Gabapentin 600 Mg Tablet) 600 mg PO QHS [facility] Last Admin: 02/19/21 22:19 Dose: 600 mg Documented by: Guaifenesin (Guaifenesin 600 Mg Tablet) 1,200 mg PO BID [facility] Last Admin: 02/20/21 06:22 Dose: 1,200 mg Documented by: Meropenem 1 gm/ Sodium (Chloride) 120 mls @ 33 mls/hr IV Q8 [facility] Last Admin: 02/20/21 06:21 Dose: 33 mls/hr Documented by: L-Arginine/L-Glutamine/Calcium HMB ([facility] ([facility]flavored) Packet) [facility] Last Admin: 02/19/21 17:38 Dose: 1 packet Documented by: Lactobacillus Acidophilus (Lactobacillus Acidophilus) 1 tablet PO TID [facility] Last Admin: 02/20/21 06:22 Dose: 1 tablet Documented by: Loperamide HCl (Loperamide 2 Mg Capsule) 4 mg PO 4X/DAY [facility] Last Admin: 02/20/21 06:23 Dose: 4 mg Documented by: Nystatin (Nystatin Powder 15gm Bottle) 1 applic TOPICAL TID [facility]; Protocol Last Admin: 02/20/21 06:33 Dose: 1 applic Documented by: Ondansetron HCl (Ondansetron Odt 4 Mg Tablet) 4 mg PO Q6H PRN PRN PRN Reason: NAUSEA Last Admin: 02/20/21 06:34 Dose: 4 mg Documented by: Pancrelipase (Creon 6,[address] Capsule) 1 capsule PO TIDCM [facility] Last Admin: 02/19/21 17:39 Dose: 1 capsule Documented by: Pantoprazole Sodium (Pantoprazole Sodium 40 Mg Tablet) 40 mg PO BID [facility] Last Admin: 02/20/21 06:23 Dose: 40 mg Documented by: Polysaccharide Iron Complex (Iron Polysaccharide Complex 150 Mg Capsule) [facility] Last Admin: 02/19/21 08:10 Dose: Not Given Documented by: Fluticasone/Salmeterol (Fluticasone/Salmeterol 232-14 Inhaler) 1 puff INHALATION Q12 [facility] Last Admin: 02/20/21 06:27 Dose: 1 puff Documented by: Sodium Chloride (0.9 % Nacl (Sterile) Posiflush 10 Ml) 10 ml IV PRN PRN PRN Reason: maintain patency Last Admin: 02/02/21 01:18 Dose: 10 ml Documented by: Sodium Chloride (0.9% Normal Saline 250 Ml Iv.Soln.) 250 ml IV PRN PRN PRN Reason: flush atb post infusion and maintain patency Last Admin: 02/18/21 06:36 Dose: 250 ml Documented by: Sodium Chloride (0.9% Saline Lock 10 Ml Syringe) 10 - 40 ml IV UD PRN PRN Reason: SALINE FLUSH Last Admin: 02/19/21 17:54 Dose: 10 ml Documented by: Sodium Hypochlorite (Dakin's Ritika Half Strength (=0.25%)) 1 applic TOPICAL DAILY [facility]; Protocol Last Admin: 02/20/21 06:32 Dose: Not Given Documented by: Vancomycin HCl (Vancomcyin 125 Mg/5 Ml Susp Po.Syringe) 125 mg PO Q6 [facility] Last Admin: 02/20/21 06:43 Dose: 125 mg Documented by: Medical Necessity - Tobacco Use Smoking Status: Never smoker Tobacco Use: Non-smoker Assessment/Plan All Active Problems PAD (peripheral artery disease) (Acute) Wound of left foot (Acute) Other specified peripheral vascular diseases (Acute) Deep venous thrombosis of distal end of left lower extremity (Acute) Debility (Acute) Cellulitis of left foot (Acute) Osteomyelitis of left foot (Resolved) Abscess of left foot (Resolved) Postoperative day #1 left transmetatarsal amputation with closure Diabetes with neuropathy Malnutrition suspected Deep venous thrombosis left posterior tibial vein Other comorbidities: epilepsy, history of brain tumor, GERD, h/o c. diff Patient seen and evaluated this morning. I reviewed and discussed her case. She remains afebrile and vitals are stable. H/H stable post operative. Lab trends will be monitored. The dressing is changed with light [place]in wet-to-dry dressing applied with additional abdominal pads and Kerlix. This was also secured in place with an Demetrio wrap. There was no purulence, erythema, tension or devitalized tissue noted at the surgical limb. To maintain a non weightbearing status of left lower extremity. She will continue to work with physical therapy. Continue antibiotics per infectious disease. She is on meropenem and vancomycin IV. Updated clearance fragments were obtained and sent to both microbiology and pathology during her recent surgery. Okay to resume Eliquis and continue aspirin from a surgical standpoint. Medical management per Dr. Ivy is appreciated and noted. Pain controlled with norco or tylenol if needed; currently stable. Please do not hesitate to call with any questions. Discharge planning in process. We will continue to follow her closely while in the transitional care unit. Stacie Finn DPM, [facility] [phone]
[2021-02-20] MEDS: Aspirin 81 MG TAB.CHEW PO (09:17)
[2021-02-20] MEDS: Juven (unflavored) Packet 1 PACKET PO ×2 (09:17→18:03)
[2021-02-20] MEDS: Iron Polysaccharide Complex 150 MG CAPSULE PO (09:17)
[2021-02-20 10:51] LABS: Bedside Glucose 195 mg/dL (70-110)
[2021-02-20 14:26] VITALS: BP 104/63; PULSE 74; RESP 16; TEMP 36.9; O2SAT 98
[2021-02-20] MEDS: 0.9% Saline Lock 10 ML Syringe IV (14:41)
[2021-02-20 16:46] LABS: Bedside Glucose 179 mg/dL (70-110)
[2021-02-20] MEDS: Gabapentin 600 MG Tablet PO (22:07)
[2021-02-20 22:36] LABS: Bedside Glucose 188 mg/dL (70-110)
[2021-02-20 23:17] VITALS: PULSE 72; RESP 16; O2SAT 97
[2021-02-21 05:00] VITALS: BP 110/52; PULSE 65; RESP 16; TEMP 36.9; O2SAT 95
[2021-02-21 06:00] LABS: Absolute Neutrophil Count 3.7 X10^3/uL (2.0-7.7); Basophil# 0.09 X10^3/uL; Basophil% 1.1 % (0-1); Eosinophil# 0.46 X10^3/uL; Eosinophils% 5.5 % (0-5); Hematocrit 31.4 % (37-47); Hemoglobin 9.6 g/dL (12.0-15.0); Lymphocyte % 39.2 % (19-41); Mean Corp Hgb Conc 30.6 g/dL (32-36); Mean Corpuscular Hgb 29.4 pg (27.0-32.0); Mean Platelet Vol. 9.9 fl (6.2-12.0); Monocyte# 0.86 X10^3/uL; Monocyte% 10.2 % (0-10); NRBC Flagged by Analyzer 0 % (0-5); Neutrophil # 3.68 X10^3/uL (2.7-7.7); Neutrophil % 43.6 % (47-70); Platelet Count 339 K/mm3 (150-450); RBC Distribution Width CV 14.8 % (11.6-14.6); RBC Distribution Width SD 52.7 fl (35.1-43.9); Red Blood Count 3.27 M/mm3 (4.2-5.4); White Blood Count 8.4 K/mm3 (4.4-11.0)
[2021-02-21 06:21] LABS: Bedside Glucose 140 mg/dL (70-110)
[2021-02-21 06:27] LABS: Anion Gap 1 (5-15); BUN 43 mg/dL (7-18); BUN/Creat Ratio 60.7 RATIO (10-20); Calcium,Total 8.4 mg/dL (8.5-10.1); Chloride 108 mmol/L (98-107); Creatinine, Serum 0.71 mg/dL (0.55-1.02); EST Glomerular Filtration Rate 88 mL/min (>60); Est Glom Filt Rate - Afr Amer 107 mL/min (>60); Estimated Creatinine Clearance 68.21 ml/min; Glucose 144 mg/dL (74-106); Potassium 4.8 mmol/L (3.5-5.1); Sodium Level 135 mmol/L (136-145)
[2021-02-21] MEDS: 0.9% Normal Saline 250 ML IV.SOLN. IV (06:38)
[2021-02-21] MEDS: guaiFENesin 600 MG Tablet 1200 MG PO ×2 (06:39→17:03)
[2021-02-21] MEDS: Fluticasone/Salmeterol 232-14 Inhaler 1 PUFF INHALATION ×2 (06:39→17:02)
[2021-02-21] MEDS: Gabapentin 300 MG Capsule PO ×2 (06:39→17:02)
[2021-02-21] MEDS: Pantoprazole Sodium 40 MG Tablet PO ×2 (06:39→17:04)
[2021-02-21] MEDS: APIXABAN 5 MG TABLET PO ×2 (06:39→17:03)
[2021-02-21] MEDS: Loperamide 2 MG Capsule 4 MG PO ×4 (06:39→21:31)
[2021-02-21] MEDS: Menthol/Lanolin/Calamine/Znox 113 GM Tube 1 APPLIC TOPICAL ×2 (06:45→17:03)
[2021-02-21] MEDS: Nystatin Powder 15gm Bottle 1 APPLIC TOPICAL ×3 (06:45→21:31)
[2021-02-21] MEDS: Juven (unflavored) Packet 1 PACKET PO ×2 (08:12→16:56)
[2021-02-21] MEDS: Iron Polysaccharide Complex 150 MG CAPSULE PO (08:13)
[2021-02-21] MEDS: Aspirin 81 MG TAB.CHEW PO (08:14)
[2021-02-21 10:46] LABS: Bedside Glucose 151 mg/dL (70-110)
[2021-02-21 12:48] VITALS: RESP 16; O2SAT 98
[2021-02-21] MEDS: 0.9% Saline Lock 10 ML Syringe IV ×2 (13:56→21:32)
[2021-02-21 14:27] VITALS: BP 104/62; PULSE 82; RESP 18; TEMP 36.1; O2SAT 96
[2021-02-21 16:51] LABS: Bedside Glucose 141 mg/dL (70-110)
[2021-02-21] MEDS: HYDROcodone Bitartrate/Apap 5/325 Tablet PO (17:05)
[2021-02-21] MEDS: Ondansetron ODT 4 MG Tablet PO (17:06)
[2021-02-21 21:31] LABS: Bedside Glucose 149 mg/dL (70-110)
[2021-02-21] MEDS: Gabapentin 600 MG Tablet PO (21:31)
[2021-02-22] MEDS: Ondansetron ODT 4 MG Tablet PO (00:13)
[2021-02-22] MEDS: HYDROcodone Bitartrate/Apap 5/325 Tablet PO (00:13)
[2021-02-22 03:16] VITALS: BP 122/51; PULSE 72; RESP 16; TEMP 36.9; O2SAT 99
[2021-02-22 05:44] LABS: Hematocrit 32.1 % (37-47); Hemoglobin 9.9 g/dL (12.0-15.0)
[2021-02-22] MEDS: Menthol/Lanolin/Calamine/Znox 113 GM Tube 1 APPLIC TOPICAL ×2 (06:16→17:18)
[2021-02-22] MEDS: Loperamide 2 MG Capsule 4 MG PO ×4 (06:16→22:22)
[2021-02-22] MEDS: Fluticasone/Salmeterol 232-14 Inhaler 1 PUFF INHALATION ×2 (06:16→17:17)
[2021-02-22] MEDS: APIXABAN 5 MG TABLET PO ×2 (06:16→17:20)
[2021-02-22] MEDS: Pantoprazole Sodium 40 MG Tablet PO ×2 (06:16→17:22)
[2021-02-22] MEDS: guaiFENesin 600 MG Tablet 1200 MG PO ×2 (06:16→17:20)
[2021-02-22] MEDS: Gabapentin 300 MG Capsule PO ×2 (06:16→17:21)
[2021-02-22] MEDS: Nystatin Powder 15gm Bottle 1 APPLIC TOPICAL ×3 (06:17→22:23)
[2021-02-22 06:36] LABS: Bedside Glucose 169 mg/dL (70-110)
--- NOTE | 2021-02-22 07:38 | PN_ITS ---
Patient Problems: Active and Suspected Problems PAD (peripheral artery disease) (Acute) Debility (Acute) Cellulitis of left foot (Acute) Subjective: This 61-year-old female with multiple comorbidities was seen bedside postoperative day #3 left transmetatarsal amputation with closure. She relates her pain today is at worst a 2 out of 10 and is controlled well with her pain medications that have been ordered. She denies fever, chill, nausea, vomiting, chest pain, shortness of breath, calf pain. - Physical Exam Vitals/I&O's: Vital Signs Temp Pulse Resp BP Pulse Ox 98.5 F 72 16 122/51 H 99 02/22/21 03:16 02/22/21 03:16 02/22/21 03:16 02/22/21 03:16 02/22/21 03:16 Oxygen Delivery Method Room Air Weight: 68.765 kg Body Mass Index (BMI) 26.1 Orthostatic Vital Signs Start: 02/03/21 16:30 Freq: Status: Active Protocol: Activity Type Activity Date Activity User E-Sign Co-Sign Detail Recorded Client Recorded Date Recorded By Document 02/12/21 13:38 ML [id number] 02/12/21 13:39 ML 02/12/21 13:38 Orthostatic Vitals Standing -Blood Pressure (90/60-120/80) 81/44 L -Extremity Use Right Arm -Pulse Rate (60-100) 100 Sitting -Blood Pressure (90/60-120/80) 113/62 -Extremity Use Right Arm -Pulse Rate (60-100) 80 Lying -Blood Pressure (90/60-120/80) 127/61 H -Extremity Use Right Arm -Pulse Rate (60-100) 74 Intake and Output for Last 24 Hours 02/20/21 02/21/21 02/22/21 23:59 23:59 23:59 Intake Total 1320 / 1320 1140 / 1140 120 / 120 Balance 1320 / 1320 1140 / 1140 120 / 120 General: Alert, Oriented x3, Cooperative HEENT: Atraumatic Extremities: No cyanosis, Capillary Refill Less than 3 Seconds - All borders of the amputation flap site, No Calf Tenderness - Negative Mchugh sign bilateral, Diminished Peripheral Pulses, Edema - Mild edema to amputation stump site left foot Skin: Incision - Well aligned and coapted with sutures intact to transmetatarsal amputation. No gapping, purulence, erythema, streaking, odor, dusky progression or infection noted. Her adjacent skin is atrophic and hairless Musculoskeletal: No Tenderness to Palpation of Joints or Extremities, Muscle Wasting, - - No bogginess or fluctuance at the flap. Compartments remain soft to palpate left lower extremity Neurological: - - Lack of normal epicritic sensation light touch is consistent with neuropathic status Psych/Mental Status: Normal Affect, Appropriate Laboratory Results 02/21/21 10:38: POC Glucose 151 H 02/21/21 16:44: POC Glucose 141 H 02/21/21 21:24: POC Glucose 149 H 02/22/21 05:10: Hgb 9.9 L, Hct 32.1 L 02/22/21 06:11: POC Glucose 169 H Current Medications Acetaminophen (Acetaminophen 500 Mg Tablet) 1,000 mg PO Q6H PRN PRN Reason: FEVER Last Admin: 02/18/21 18:01 Dose: 1,000 mg Documented by: Acetaminophen (Acetaminophen 500 Mg Tablet) 500 mg PO Q6H PRN PRN PRN Reason: Pain Score 1-5 Last Admin: 02/19/21 14:51 Dose: 500 mg Documented by: Hydrocodone Bitart/Acetaminophen (Hydrocodone Bitartrate/Apap 5/325 Tablet) 1 - 2 tablet PO Q6H PRN PRN PRN Reason: Pain Score 4-10 Last Admin: 02/22/21 00:13 Dose: 2 tablet Documented by: Albuterol Sulfate (Albuterol Sulfate 8 Gm Inhaler (60 Puffs)) 1 puff INHALATION Q4H PRN PRN PRN Reason: SHORTNESS OF BREATH Last Admin: 02/02/21 06:06 Dose: 1 puff Documented by: Apixaban (Apixaban 5 Mg Tablet) 5 mg PO BID [facility] Stop: 05/15/21 18:00 Last Admin: 02/22/21 06:16 Dose: 5 mg Documented by: Aspirin (Aspirin 81 Mg Tab.Chew) 81 mg PO DAILY@0800 [facility] Last Admin: 02/21/21 08:14 Dose: 81 mg Documented by: Calamine/Phenol (Menthol/Lanolin/Calamine/Znox 113 Gm Tube) 1 applic TOPICAL BID [facility], [facility]; Protocol Last Admin: 02/22/21 06:16 Dose: 1 applic Documented by: Gabapentin (Gabapentin 300 Mg Capsule) 300 mg PO BID [facility] Last Admin: 02/22/21 06:16 Dose: 300 mg Documented by: Gabapentin (Gabapentin 600 Mg Tablet) 600 mg PO QHS [facility] Last Admin: 02/21/21 21:31 Dose: 600 mg Documented by: Guaifenesin (Guaifenesin 600 Mg Tablet) 1,200 mg PO BID [facility] Last Admin: 02/22/21 06:16 Dose: 1,200 mg Documented by: Meropenem 1 gm/ Sodium (Chloride) 120 mls @ 33 mls/hr IV Q8 [facility] Last Admin: 02/22/21 06:14 Dose: 33 mls/hr Documented by: L-Arginine/L-Glutamine/Calcium HMB (Alfredo (Unflavored) Packet) 1 packet PO BIDCM [facility] Last Admin: 02/21/21 16:56 Dose: 1 packet Documented by: Lactobacillus Acidophilus (Lactobacillus Acidophilus) 1 tablet PO TID [facility] Last Admin: 02/22/21 06:16 Dose: 1 tablet Documented by: Loperamide HCl (Loperamide 2 Mg Capsule) 4 mg PO 4X/DAY [facility] Last Admin: 02/22/21 06:16 Dose: 4 mg Documented by: Nystatin (Nystatin Powder 15gm Bottle) 1 applic TOPICAL TID [facility]; Protocol Last Admin: 02/22/21 06:17 Dose: 1 applic Documented by: Ondansetron HCl (Ondansetron Odt 4 Mg Tablet) 4 mg PO Q6H PRN PRN PRN Reason: NAUSEA Last Admin: 02/22/21 00:13 Dose: 4 mg Documented by: Pancrelipase (Creon 6,[address] Capsule) 1 capsule PO TIDCM [facility] Last Admin: 02/21/21 17:02 Dose: 1 capsule Documented by: Pantoprazole Sodium (Pantoprazole Sodium 40 Mg Tablet) 40 mg PO BID [facility] Last Admin: 02/22/21 06:16 Dose: 40 mg Documented by: Polysaccharide Iron Complex (Iron Polysaccharide Complex 150 Mg Capsule) 150 mg PO DAILYCM [facility] Last Admin: 02/21/21 08:13 Dose: 150 mg Documented by: Povidone Iodine (Povidone-Iodine 118 Ml Bottle) 10 ml TOPICAL Q48 [facility] Last Admin: 02/21/21 00:08 Dose: 10 ml Documented by: Fluticasone/Salmeterol (Fluticasone/Salmeterol 232-14 Inhaler) 1 puff INHALATION Q12 HEMA Last Admin: 02/22/21 06:16 Dose: 1 puff Documented by: Sodium Chloride (0.9 % Nacl (Sterile) Posiflush 10 Ml) 10 ml IV PRN PRN PRN Reason: maintain patency Last Admin: 02/02/21 01:18 Dose: 10 ml Documented by: Sodium Chloride (0.9% Normal Saline 250 Ml Iv.Soln.) 250 ml IV PRN PRN PRN Reason: flush atb post infusion and maintain patency Last Admin: 02/21/21 06:38 Dose: 250 ml Documented by: Sodium Chloride (0.9% Saline Lock 10 Ml Syringe) 10 - 40 ml IV UD PRN PRN Reason: SALINE FLUSH Last Admin: 02/21/21 21:32 Dose: 20 ml Documented by: Sodium Hypochlorite (Dakin's Ritika Half Strength (=0.25%)) 1 applic TOPICAL DAILY [facility]; Protocol Last Admin: 02/22/21 06:13 Dose: Not Given Documented by: Vancomycin HCl (Vancomcyin 125 Mg/5 Ml Susp Po.Syringe) 125 mg PO Q6 HEMA Last Admin: 02/22/21 06:23 Dose: 125 mg Documented by: Medical Necessity - Tobacco Use Smoking Status: Never smoker Tobacco Use: Non-smoker Assessment/Plan All Active Problems PAD (peripheral artery disease) (Acute) Wound of left foot (Acute) Other specified peripheral vascular diseases (Acute) Deep venous thrombosis of distal end of left lower extremity (Acute) Debility (Acute) Cellulitis of left foot (Acute) Osteomyelitis of left foot (Resolved) Abscess of left foot (Resolved) Postoperative day #3 left transmetatarsal amputation with closure Diabetes with neuropathy Malnutrition suspected Deep venous thrombosis left posterior tibial vein Other comorbidities: epilepsy, history of brain tumor, GERD, h/o c. diff Patient seen and evaluated this morning. I reviewed and discussed her case. She remains afebrile and vitals are stable. She does not demonstrate leukocytosis. The dressing is changed with Betadine wet-to-dry dressing applied with additional abdominal pads and Kerlix. This was also secured in place with an Demetrio wrap. There was no purulence, erythema, tension or devitalized tissue noted at the surgical limb. To maintain a non weightbearing status of left lower extremity. She will continue to work with physical therapy. Continue antibiotics per infectious disease. She is on meropenem and vancomycin IV. Updated clearance fragments were obtained and sent to both microbiology and pathology during her recent surgery. So far there is no bacterial growth noted. To continue Eliquis for treatment of acute deep venous thrombosis. Medical management per Dr. Ivy is appreciated and noted. Pain controlled with norco or tylenol if needed; currently stable. Please do not hesitate to call with any questions. Discharge planning in process. We will continue to follow her biweekly while in the transitional care unit. Stacie Finn DPM, [facility] [phone]
--- NOTE | 2021-02-22 07:52 | NURSING ---
wound photo: left foot
--- NOTE | 2021-02-22 07:53 | NURSING ---
wound photo: left foot
[2021-02-22] MEDS: Iron Polysaccharide Complex 150 MG CAPSULE PO (08:56)
[2021-02-22] MEDS: Aspirin 81 MG TAB.CHEW PO (08:56)
[2021-02-22] MEDS: Juven (unflavored) Packet 1 PACKET PO ×2 (08:57→17:18)
--- NOTE | 2021-02-22 09:10 | NURSING ---
PICK LINE TO BE PLACED,OK PER . RN AWARE.
--- NOTE | 2021-02-22 09:12 | NURSING ---
AND WANDA,CINDI/WOUND NURSE CHANGED PT DRESSING TO LEFT FOOT THIS MORNING.
[2021-02-22] MEDS: 0.9% Saline Lock 10 ML Syringe IV ×3 (09:34→18:51)
--- NOTE | 2021-02-22 09:50 | NURSING ---
paper cutter notified of need for PICC line placement. Waiting for call back on arrival time.
[2021-02-22 11:16] LABS: Bedside Glucose 221 mg/dL (70-110)
--- NOTE | 2021-02-22 12:37 | NURSING ---
SHEETER WAXER OPERATOR IN TO PLACE PICK LINE IN UPPER LEFT ARM.
--- NOTE | 2021-02-22 13:15 | RAD_ITS ---
STUDY: X-RAY CHEST REASON FOR EXAM: Female, 66 years old. PICC line placement TECHNIQUE: Single AP portable view of the chest. COMPARISON: None. FINDINGS: A left-sided PICC line catheter has been placed. The tip is at the junction of the superior vena cava and right major. The lungs are clear and expanded. Scattered calcified granulomas. There is no demonstrated pleural abnormality. Normal size heart. Normal mediastinum and nina. Normal visualized pulmonary arteries. There is atherosclerotic tortuosity of the aortic arch and descending thoracic aorta. There are degenerative changes of the visualized thoracic spine. Normal visualized ribs, clavicles, and shoulders. There is no demonstrated abnormality of the visualized soft tissue structures of the upper abdomen. RAD/Chest 1 View (Portable) IMPRESSION: The tip of the left PICC line catheter is at the junction of the superior vena cava and right atrium. Electronically Signed: Ming Louise MD at 13:47 EDT , Service support ,
[2021-02-22 15:05] VITALS: BP 114/72; PULSE 72; RESP 18; TEMP 36.2; O2SAT 97
[2021-02-22 16:21] LABS: Bedside Glucose 201 mg/dL (70-110)
--- NOTE | 2021-02-22 16:57 | CHAPLAIN ---
Type of Pastoral Visit ___ Initial Visit _x__ Follow-up Visit ___ On-call Visit ___ General Patient Visit ___ Spiritual Assessment ___ Family Conference ___ Bereavement ___ Rapid Response ___ Code Blue ___ Other (describe below) Pastoral Care Referral From _x__ Patient ___ Family ___ Nurse ___ Physician ___ Boarding Mother ___ Design Engineering Manager ___ Other (describe below) Sacrament/Intervention _x__ Active listening ___ Anointing ___ Orthodox ___ Bereavement ___ Communion ___ Dang exploration ___ _x__ Life review _x__ Prayer ___ Reconciliation ___ Sacrament of Sick _x__ Supportive presence ___ Wedding ___ Other (describe below) Pastoral Comments
[2021-02-22] MEDS: Acetaminophen 500 MG Tablet PO (18:28)
--- NOTE | 2021-02-22 18:36 | NURSING ---
SALINE LOCK REMOVED PER ORDER DUE TO PT GETTING PICC IN UPPER LEFT ARM.
--- NOTE | 2021-02-22 19:14 | PN_ITS ---
Subjective: Resident seen for regulatory visit. She is lying in bed, just finished lunch. She has no new complaints, her left foot pain is 2 out of 10, well controlled. Vitals/I&O's: Vital Signs Temp Pulse Resp BP Pulse Ox 97.1 F L 72 18 114/72 97 02/22/21 15:05 02/22/21 15:05 02/22/21 15:05 02/22/21 15:05 02/22/21 15:05 Oxygen Delivery Method Room Air Weight: 68.765 kg Body Mass Index (BMI) 26.1 Orthostatic Vital Signs Start: 02/03/21 16:30 Freq: Status: Active Protocol: Activity Type Activity Date Activity User E-Sign Co-Sign Detail Recorded Client Recorded Date Recorded By Document 02/12/21 13:38 ML [id number] 02/12/21 13:39 ML 02/12/21 13:38 Orthostatic Vitals Standing -Blood Pressure (90/60-120/80) 81/44 L -Extremity Use Right Arm -Pulse Rate (60-100) 100 Sitting -Blood Pressure (90/60-120/80) 113/62 -Extremity Use Right Arm -Pulse Rate (60-100) 80 Lying -Blood Pressure (90/60-120/80) 127/61 H -Extremity Use Right Arm -Pulse Rate (60-100) 74 Intake and Output for Last 24 Hours 02/20/21 02/21/21 02/22/21 23:59 23:59 23:59 Intake Total 1320 / 1320 1140 / 1140 900 / 900 Balance 1320 / 1320 1140 / 1140 900 / 900 Laboratory Results 02/21/21 21:24: POC Glucose 149 H 02/22/21 05:10: Hgb 9.9 L, Hct 32.1 L 02/22/21 06:11: POC Glucose 169 H 02/22/21 10:53: POC Glucose 221 H 02/22/21 16:11: POC Glucose 201 H Past Medical History Past Medical History (Chronic Problems): Chronic Problems Diabetic foot ulcer (Chronic) Diabetes mellitus (Chronic) Brain tumor (benign) (Chronic) Chronic diarrhea (Chronic) Epilepsy (Chronic) Mitral valve prolapse (Chronic) Diabetic neuropathy (Chronic) 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) Gastroesophageal reflux disease (Chronic) Type 2 diabetes mellitus with diabetic polyneuropathy (Chronic) Tubal ligation status (Chronic) History of pneumonia (Chronic) Obesity (Chronic) Migraine (Chronic) Disc degeneration (Chronic) Asthma (Chronic) Allergies cefprozil Allergy (Verified 02/19/21 09:42) Shortness of breath ceftriaxone Allergy (Verified 02/19/21 09:42) Hives clindamycin Allergy (Verified 02/19/21 09:42) Rash enalapril Allergy (Verified 02/19/21 09:42) Other enoxaparin Allergy (Verified 02/19/21 09:42) Rash heparin Allergy (Verified 02/19/21 09:42) Rash levalbuterol Allergy (Verified 02/19/21 09:42) Other morphine Allergy (Verified 02/19/21 09:42) Shortness of breath Penicillins Allergy (Verified 02/19/21 09:42) Anaphylaxis shellfish derived Allergy (Verified 02/19/21 09:42) Anaphylaxis valsartan Allergy (Verified 02/19/21 09:42) Other vancomycin Allergy (Verified 02/19/21 09:42) Rash Home Medications: Ambulatory Orders Medication Instructions Recorded Albuterol IH (ProAir) [Proair Hfa 1 puff INHALATION Q4H PRN PRN 01/30/21 (SP)Vent Pts] Budesonide/Formoterol Fumarate 2 puff IH BID 01/30/21 [Budesonide-Formoterol 160-4.5] Ciprofloxacin [Cipro] 500 mg PO BID 01/30/21 Doxycycline 100 mg PO BID 01/30/21 Gabapentin 300 mg PO BID 01/30/21 Gabapentin [Neurontin] 600 mg PO QHS 01/30/21 Guaifenesin [Mucinex] 1,200 mg PO BID 01/30/21 Insulin NPH Human Isophane 100 units SC DAILY 01/30/21 [Humulin N Kwikpen] Lactobacillus Acidophilus 1 each PO DAILY 01/30/21 [Acidophilus] Lansoprazole [Prevacid] 15 mg PO BID 01/30/21 Lansoprazole [Prevacid] 30 mg PO BID 01/30/21 Loperamide HCl [Imodium A-D] 6 mg PO TID 01/30/21 Ondansetron HCl [Zofran] 4 mg PO Q6H PRN PRN 01/30/21 Tramadol HCl [Ultram] 50 mg PO Q6H PRN PRN 01/30/21 Surgical History: appendectomy, - - Left 2nd, 3rd toe amputations. Psychiatric History: No pertinent psych hx BALLER TENDER History: No pertinent BALLER TENDER history Lives: Spouse/ Significant Other Smoking Status: Never smoker Tobacco Use: Non-smoker Alcohol: None Drugs: None - *Family History Maternal History Items: No pertinent history Paternal History Items: No pertinent history Capacity - Capacity Assessment Tool Can the patient make a choice & communicate that choice?: Yes Can the patient understand benefits, risks and alternatives?: Yes Can the patient make a logical, rational choice?: Yes Is the choice the patient makes consistent w/ their values?: Yes Is there an impending, emergent risk to the patient?: No Does the patient have an Advance Directive?: No Is there a Surrogate Available?: Yes i.e. HCPOA: Yes i.e. close relative (spouse, child, parent, sibling)?: Yes Review of Systems Constitutional: Denies: Chills, Fever, Weight Change HEENT: Denies: Head Aches, Sinus Congestion, Sinus Drainage Cardiovascular: Denies: Chest Pain, Palpitations Respiratory: Denies: Cough, Shortness of breath at rest, Sputum production Gastrointestinal: Denies: Abdominal Pain, Nausea, Vomiting Genitourinary: Denies: Dysuria Musculoskeletal: Denies: Joint Pain, Joint Tenderness Skin: Denies: Rash, Wounds Neurological: Denies: Numbness, Tingling, Focal weakness Psychiatric: Denies: Anxiety, Depression, Homicidal Ideations, Suicidal Ideations Hematologic/ Lymphatic: Denies: Easy Bruising, Easy Bleeding Patient Problems: Active and Suspected Problems PAD (peripheral artery disease) (Acute) Debility (Acute) Cellulitis of left foot (Acute) - Physical Exam Vitals/I&O's: Vital Signs Temp Pulse Resp BP Pulse Ox 97.1 F L 72 18 114/72 97 02/22/21 15:05 02/22/21 15:05 02/22/21 15:05 02/22/21 15:05 02/22/21 15:05 Oxygen Delivery Method Room Air Weight: 68.765 kg Body Mass Index (BMI) 26.1 Orthostatic Vital Signs Start: 02/03/21 16:30 Freq: Status: Active Protocol: Activity Type Activity Date Activity User E-Sign Co-Sign Detail Recorded Client Recorded Date Recorded By Document 02/12/21 13:38 ML [id number] 02/12/21 13:39 ML 02/12/21 13:38 Orthostatic Vitals Standing -Blood Pressure (90/60-120/80) 81/44 L -Extremity Use Right Arm -Pulse Rate (60-100) 100 Sitting -Blood Pressure (90/60-120/80) 113/62 -Extremity Use Right Arm -Pulse Rate (60-100) 80 Lying -Blood Pressure (90/60-120/80) 127/61 H -Extremity Use Right Arm -Pulse Rate (60-100) 74 Intake and Output for Last 24 Hours 02/20/21 02/21/21 02/22/21 23:59 23:59 23:59 Intake Total 1320 / 1320 1140 / 1140 900 / 900 Balance 1320 / 1320 1140 / 1140 900 / 900 General: Alert, Oriented x3, Cooperative HEENT: Atraumatic, PERRLA, EOMI, Normocephalic Neck: Supple, No JVD, Negative Carotid Bruits Lungs: Clear to auscultation, Normal air movement Cardiovascular: Regular rate, No murmurs Abdomen: Bowel Sounds Present, Soft, Non Tender Extremities: No edema, Capillary Refill Less than 3 Seconds, - - Left foot dressed. Skin: No rashes, No breakdown Musculoskeletal: No Tenderness to Palpation of Joints or Extremities Neurological: Cranial nerves II-XII grossly intact Psych/Mental Status: Normal Affect, Appropriate Laboratory Results 02/21/21 21:24: POC Glucose 149 H 02/22/21 05:10: Hgb 9.9 L, Hct 32.1 L 02/22/21 06:11: POC Glucose 169 H 02/22/21 10:53: POC Glucose 221 H 02/22/21 16:11: POC Glucose 201 H Current Medications Acetaminophen (Acetaminophen 500 Mg Tablet) 1,000 mg PO Q6H PRN PRN Reason: FEVER Last Admin: 02/18/21 18:01 Dose: 1,000 mg Documented by: Acetaminophen (Acetaminophen 500 Mg Tablet) 500 mg PO Q6H PRN PRN PRN Reason: Pain Score 1-5 Last Admin: 02/22/21 18:28 Dose: 500 mg Documented by: Hydrocodone Bitart/Acetaminophen (Hydrocodone Bitartrate/Apap 5/325 Tablet) 1 - 2 tablet PO Q6H PRN PRN PRN Reason: Pain Score 4-10 Last Admin: 02/22/21 00:13 Dose: 2 tablet Documented by: Albuterol Sulfate (Albuterol Sulfate 8 Gm Inhaler (60 Puffs)) 1 puff INHALATION Q4H PRN PRN PRN Reason: SHORTNESS OF BREATH Last Admin: 02/02/21 06:06 Dose: 1 puff Documented by: Apixaban (Apixaban 5 Mg Tablet) 5 mg PO BID [facility] Stop: 05/15/21 18:00 Last Admin: 02/22/21 17:20 Dose: 5 mg Documented by: Aspirin (Aspirin 81 Mg Tab.Chew) 81 mg PO DAILY@0800 [facility] Last Admin: 02/22/21 08:56 Dose: 81 mg Documented by: Calamine/Phenol (Menthol/Lanolin/Calamine/Znox 113 Gm Tube) 1 applic TOPICAL BID [facility]; Protocol Last Admin: 02/22/21 17:18 Dose: 1 applic Documented by: Gabapentin (Gabapentin 300 Mg Capsule) 300 mg PO BID [facility] Last Admin: 02/22/21 17:21 Dose: 300 mg Documented by: Gabapentin (Gabapentin 600 Mg Tablet) 600 mg PO QHS [facility] Last Admin: 02/21/21 21:31 Dose: 600 mg Documented by: Guaifenesin (Guaifenesin 600 Mg Tablet) 1,200 mg PO BID [facility] Last Admin: 02/22/21 17:20 Dose: 1,200 mg Documented by: Meropenem 1 gm/ Sodium (Chloride) 120 mls @ 33 mls/hr IV Q8 [facility] Last Infusion: 02/22/21 18:50 Dose: Infused Documented by: L-Arginine/L-Glutamine/Calcium HMB (Alfredo (Unflavored) Packet) 1 packet PO BIDCM [facility] Last Admin: 02/22/21 17:18 Dose: 1 packet Documented by: Lactobacillus Acidophilus (Lactobacillus Acidophilus) 1 tablet PO TID [facility] Last Admin: 02/22/21 13:29 Dose: 1 tablet Documented by: Loperamide HCl (Loperamide 2 Mg Capsule) 4 mg PO 4X/DAY [facility] Last Admin: 02/22/21 17:18 Dose: 4 mg Documented by: Nystatin (Nystatin Powder 15gm Bottle) 1 applic TOPICAL TID [facility]; Protocol Last Admin: 02/22/21 13:28 Dose: 1 applic Documented by: Ondansetron HCl (Ondansetron Odt 4 Mg Tablet) 4 mg PO Q6H PRN PRN PRN Reason: NAUSEA Last Admin: 02/22/21 00:13 Dose: 4 mg Documented by: Pancrelipase (Creon 6,[address] Capsule) 1 capsule PO TIDCM [facility] Last Admin: 02/22/21 17:19 Dose: 1 capsule Documented by: Pantoprazole Sodium (Pantoprazole Sodium 40 Mg Tablet) 40 mg PO BID [facility] Last Admin: 02/22/21 17:22 Dose: 40 mg Documented by: Polysaccharide Iron Complex (Iron Polysaccharide Complex 150 Mg Capsule) 150 mg PO DAILYCM [facility] Last Admin: 02/22/21 08:56 Dose: 150 mg Documented by: Povidone Iodine (Povidone-Iodine 118 Ml Bottle) 10 ml TOPICAL Q48 [facility] Last Admin: 02/22/21 08:58 Dose: 10 ml Documented by: Fluticasone/Salmeterol (Fluticasone/Salmeterol 232-14 Inhaler) 1 puff INHALATION Q12 [facility] Last Admin: 02/22/21 17:17 Dose: 1 puff Documented by: Sodium Chloride (0.9 % Nacl (Sterile) Posiflush 10 Ml) 10 ml IV PRN PRN PRN Reason: maintain patency Last Admin: 02/02/21 01:18 Dose: 10 ml Documented by: Sodium Chloride (0.9% Normal Saline 250 Ml Iv.Soln.) 250 ml IV PRN PRN PRN Reason: flush atb post infusion and maintain patency Last Admin: 02/21/21 06:38 Dose: 250 ml Documented by: Sodium Chloride (0.9% Saline Lock 10 Ml Syringe) 10 - 40 ml IV UD PRN PRN Reason: SALINE FLUSH Last Admin: 02/22/21 18:51 Dose: 20 ml Documented by: Sodium Hypochlorite (Dakin's Ritika Half Strength (=0.25%)) 1 applic TOPICAL DAILY [facility]; Protocol Last Admin: 02/22/21 06:13 Dose: Not Given Documented by: Vancomycin HCl (Vancomcyin 125 Mg/5 Ml Susp Po.Syringe) 125 mg PO Q6 [facility] Last Admin: 02/22/21 17:28 Dose: 125 mg Documented by: Assessment/Plan All Active Problems PAD (peripheral artery disease) (Acute) Wound of left foot (Acute) Other specified peripheral vascular diseases (Acute) Deep venous thrombosis of distal end of left lower extremity (Acute) Debility (Acute) Cellulitis of left foot (Acute) Osteomyelitis of left foot (Resolved) Abscess of left foot (Resolved) 65 year old female with below past medical history hospitalized for left diabetic foot infection, complicated by osteomyelitis requiring left 2nd, 3rd toe amputation 01/16/2021, wound VAC, admitted to TCU with debility, here for rehabilitation, strengthening, prior to discharge home with . * Debility - PT/OT. * Pain - Tylenol 500MG Q6H PRN pain (1-5), [place] 5/325MG 1-2 Q6H PRN pain (4- 10). * Bowel - See below. * Adult Immunization - Administer Prevnar 13, Pneumovax 23, Fluzone, COVID19 vaccine as appropriate. * DVT prophylaxis - Not necessary, on Eliquis. * Asthma - Advair 232-14 2 puffs BID, Proair 1 puff Q4H PRN. * Left foot osteomyelitis - status post left transmetatarsal amputation with complex wound closure 02/19/2021, Meropenem 1GM IV Q8H for MSSA. * Left foot wound - Alfredo 1 packet BID, Povidone 10ML topical Q48H, Dakins 1/2 strengthen topical daily. * Diabetic neuropathy - Gabapentin 300MG BID, 600MG QHS. * Congestion - Mucinex 1200MG BID. * Diabetes Mellitus II - Monitor blood sugars. * GI prophylaxis - Lactobacillus 1 tablet po TID. * GERD - Pantoprazole 40MG BID. * Skin irritation - Calmoseptine topical BID. * Tinea Corporis - Nystatin topical TID. * Nausea - Zofran 4MG Q6H PRN. * Chronic diarrhea, history of c. difficile - Imodium 4MG 4x/day, Vancomycin 125MG Q6H. * Iron deficiency anemia - Ferrex 150MG daily. * Pancreatic insufficiency - Creon 6000 units 1 capsule po TID. * DVT left lower extremity - diagnosed 02/18/2021, Eliquis 5MG BID thru 05/15/2021. * Peripheral arterial occlusive disease - Aspirin 81MG daily.
[2021-02-22 21:21] LABS: Bedside Glucose 154 mg/dL (70-110)
[2021-02-22] MEDS: Gabapentin 600 MG Tablet PO (22:23)
[2021-02-23 06:00] VITALS: BP 150/67; PULSE 70; RESP 18; TEMP 36.6; O2SAT 98
[2021-02-23] MEDS: Loperamide 2 MG Capsule 4 MG PO ×4 (06:00→21:39)
[2021-02-23] MEDS: guaiFENesin 600 MG Tablet 1200 MG PO ×2 (06:00→17:14)
[2021-02-23] MEDS: Gabapentin 300 MG Capsule PO ×2 (06:00→17:15)
[2021-02-23] MEDS: APIXABAN 5 MG TABLET PO ×2 (06:00→17:14)
[2021-02-23] MEDS: Nystatin Powder 15gm Bottle 1 APPLIC TOPICAL ×3 (06:00→21:43)
[2021-02-23] MEDS: Menthol/Lanolin/Calamine/Znox 113 GM Tube 1 APPLIC TOPICAL ×2 (06:00→17:12)
[2021-02-23] MEDS: Fluticasone/Salmeterol 232-14 Inhaler 1 PUFF INHALATION ×2 (06:00→17:11)
[2021-02-23] MEDS: Pantoprazole Sodium 40 MG Tablet PO ×2 (06:00→17:16)
[2021-02-23 06:21] LABS: Bedside Glucose 137 mg/dL (70-110)
[2021-02-23] MEDS: 0.9% Saline Lock 10 ML Syringe IV ×4 (06:45→21:40)
[2021-02-23] MEDS: Aspirin 81 MG TAB.CHEW PO (09:05)
[2021-02-23] MEDS: Juven (unflavored) Packet 1 PACKET PO ×2 (09:06→17:11)
[2021-02-23] MEDS: Iron Polysaccharide Complex 150 MG CAPSULE PO (09:06)
[2021-02-23] MEDS: HYDROcodone Bitartrate/Apap 5/325 Tablet PO (09:18)
[2021-02-23 10:15] VITALS: PULSE 70; RESP 18; O2SAT 98
--- NOTE | 2021-02-23 10:31 | PN.ID_ITS ---
Physical Exam Narrative Feeling better, still some diarrhea, no fever Resp clear to auscultation bilaterally Cardio regular rate and regular rhythm GI normal to inspection, nondistended, normoactive bowel sounds Skin no rashes or lesions noted ID ID: Route of nutrition/ use of supplements: [] Nutritional Intake: [] IV Site: [] Nguyen Catheter: [] Assessment & Plan Assessment/Plan (1) Osteomyelitis of left foot: Status: Resolved Code(s): M86.9 - Osteomyelitis, unspecified Plan: MSSA L foot osteo - had 2nd and 3rd toe amputation and partial metatarsal resection at [facility] 01/26/21. Discharged here on po doxy for mssa and po cipro for esbl klebs uti. Now with worsening purulence and inflammation of L foot. MRI did not show any residual osteo. Abx changed back to linezolid/meropenem, now s/p OR with Dr. Finn 02/02/21. Cxs again with MSSA. Off linezolid. Continue meropenem. Had some increase in chronic diarrhea with h/o cdiff, po vanc seems to have helped. Now s/p TMA with closure 02/19/[address] Finn, clearance cx neg so far. Path pending. Reviewed labs, vitals, imaging. Plan on stopping meropenem tomorrow, then doing po vanc taper. Will follow
[2021-02-23 10:50] LABS: Bedside Glucose 209 mg/dL (70-110)
--- NOTE | 2021-02-23 13:41 | NURSING ---
PT SISTER/POA UPDATED.
[2021-02-23 14:11] VITALS: BP 104/64; PULSE 81; RESP 20; TEMP 36; O2SAT 98
[2021-02-23 16:51] LABS: Bedside Glucose 155 mg/dL (70-110)
[2021-02-23 21:35] LABS: Bedside Glucose 183 mg/dL (70-110)
[2021-02-23] MEDS: Gabapentin 600 MG Tablet PO (21:39)
[2021-02-23] MEDS: Acetaminophen 500 MG Tablet PO (21:46)
[2021-02-23] MEDS: Hydrocortisone 2.5% Crm 1 APPLIC TOPICAL (21:47)
[2021-02-24 04:51] VITALS: BP 114/51; PULSE 67; RESP 16; TEMP 36.2; O2SAT 97
[2021-02-24] MEDS: Pantoprazole Sodium 40 MG Tablet PO ×2 (04:54→17:10)
[2021-02-24] MEDS: APIXABAN 5 MG TABLET PO ×2 (04:55→17:08)
[2021-02-24] MEDS: Menthol/Lanolin/Calamine/Znox 113 GM Tube 1 APPLIC TOPICAL ×2 (04:55→17:08)
[2021-02-24] MEDS: Gabapentin 300 MG Capsule PO ×2 (04:55→17:09)
[2021-02-24] MEDS: guaiFENesin 600 MG Tablet 1200 MG PO ×2 (04:55→17:08)
[2021-02-24] MEDS: Loperamide 2 MG Capsule 4 MG PO ×4 (04:55→22:41)
[2021-02-24] MEDS: Nystatin Powder 15gm Bottle 1 APPLIC TOPICAL ×3 (04:57→22:41)
[2021-02-24] MEDS: 0.9% Normal Saline 250 ML IV.SOLN. IV (05:00)
[2021-02-24] MEDS: Fluticasone/Salmeterol 232-14 Inhaler 1 PUFF INHALATION ×2 (05:02→17:10)
[2021-02-24 06:15] LABS: Bedside Glucose 173 mg/dL (70-110)
[2021-02-24] MEDS: Iron Polysaccharide Complex 150 MG CAPSULE PO (08:08)
[2021-02-24] MEDS: Juven (unflavored) Packet 1 PACKET PO ×2 (08:08→17:07)
[2021-02-24] MEDS: Aspirin 81 MG TAB.CHEW PO (08:08)
[2021-02-24 10:46] LABS: Bedside Glucose 227 mg/dL (70-110)
[2021-02-24 13:36] VITALS: BP 114/64; PULSE 72; RESP 16; TEMP 35.8
[2021-02-24] MEDS: Acetaminophen 500 MG Tablet PO (13:43)
--- NOTE | 2021-02-24 14:53 | NURSING ---
wound photo: left foot
--- NOTE | 2021-02-24 14:53 | NURSING ---
wound photo: left foot
--- NOTE | 2021-02-24 15:57 | NURSING ---
Wound Nurse in today to do dressing change, she stated Dr. Finn will be here [place] to see patient.
--- NOTE | 2021-02-24 16:18 | NURSING ---
After reviewing reports by Dr. Iqbal called to verify that he wanted to Discontinue the IV Meropenem.
[2021-02-24 16:31] LABS: Bedside Glucose 172 mg/dL (70-110)
[2021-02-24] MEDS: 0.9% Saline Lock 10 ML Syringe IV (17:10)
[2021-02-24 21:41] LABS: Bedside Glucose 178 mg/dL (70-110)
[2021-02-24 22:40] VITALS: PULSE 72; RESP 16; O2SAT 97
[2021-02-24] MEDS: Gabapentin 600 MG Tablet PO (22:41)
[2021-02-25 05:00] VITALS: BP 131/64; PULSE 70; RESP 16; TEMP 36.6; O2SAT 97
[2021-02-25] MEDS: Pantoprazole Sodium 40 MG Tablet PO ×2 (05:57→17:37)
[2021-02-25] MEDS: Menthol/Lanolin/Calamine/Znox 113 GM Tube 1 APPLIC TOPICAL ×2 (05:57→17:44)
[2021-02-25] MEDS: APIXABAN 5 MG TABLET PO ×2 (05:57→17:37)
[2021-02-25] MEDS: guaiFENesin 600 MG Tablet 1200 MG PO ×2 (05:57→17:37)
[2021-02-25] MEDS: Gabapentin 300 MG Capsule PO ×2 (05:57→17:37)
[2021-02-25] MEDS: Fluticasone/Salmeterol 232-14 Inhaler 1 PUFF INHALATION ×2 (05:57→17:37)
[2021-02-25] MEDS: Loperamide 2 MG Capsule 4 MG PO ×4 (05:57→22:13)
[2021-02-25] MEDS: Nystatin Powder 15gm Bottle 1 APPLIC TOPICAL ×3 (05:58→22:13)
[2021-02-25] MEDS: 0.9% Saline Lock 10 ML Syringe IV ×2 (06:03→12:58)
[2021-02-25 06:25] LABS: Bedside Glucose 135 mg/dL (70-110)
[2021-02-25] MEDS: Juven (unflavored) Packet 1 PACKET PO ×2 (09:13→17:36)
[2021-02-25] MEDS: Iron Polysaccharide Complex 150 MG CAPSULE PO (09:13)
[2021-02-25] MEDS: Aspirin 81 MG TAB.CHEW PO (09:13)
[2021-02-25] MEDS: Acetaminophen 500 MG Tablet 1000 MG PO (09:24)
--- NOTE | 2021-02-25 10:29 | NURSING ---
PT COMPLAINING OF PAIN IN IN HER LEFT LOWER ABDOMINAL. ASKED PT WHEN IT STARTED,PT STATED YESTERDAY. PRN PN MED GIVEN. REPORTED TO RN.
[2021-02-25 11:16] LABS: Bedside Glucose 223 mg/dL (70-110)
[2021-02-25 13:00] VITALS: PULSE 83; RESP 18; O2SAT 97
[2021-02-25 15:20] VITALS: BP 130/69; PULSE 69; RESP 17; TEMP 36.2; O2SAT 97
[2021-02-25 15:56] LABS: Bedside Glucose 227 mg/dL (70-110)
--- NOTE | 2021-02-25 18:30 | RAD_ITS ---
STUDY: X-RAY - ABDOMEN/PELVIS REASON FOR EXAM: Female, 66 years old. Abdominal pain, left lower quadrant pain x 2-3 days TECHNIQUE: 3 view COMPARISON: None. FINDINGS: Normal visualized lung bases. There is an unremarkable bowel gas pattern. There is no demonstrated free abdominal air. Moderately distended stomach with retained contents. Normal soft tissue structures. Degenerative changes and levoscoliosis. RAD/Abdomen Single View IMPRESSION: Moderately distention stomach. Electronically Signed: Victoriano Santoro DO at 22:37 EDT Tel [phone], Service support ,
[2021-02-25] MEDS: Gabapentin 600 MG Tablet PO (22:12)
[2021-02-25 22:35] LABS: Bedside Glucose 214 mg/dL (70-110)
[2021-02-26 05:00] VITALS: BP 126/61; PULSE 65; RESP 16; TEMP 36.3; O2SAT 96
[2021-02-26] MEDS: Loperamide 2 MG Capsule 4 MG PO ×4 (05:07→21:28)
[2021-02-26] MEDS: Pantoprazole Sodium 40 MG Tablet PO ×2 (05:07→17:47)
[2021-02-26] MEDS: Gabapentin 300 MG Capsule PO ×2 (05:07→17:47)
[2021-02-26] MEDS: Menthol/Lanolin/Calamine/Znox 113 GM Tube 1 APPLIC TOPICAL ×2 (05:07→17:48)
[2021-02-26] MEDS: APIXABAN 5 MG TABLET PO ×2 (05:07→17:47)
[2021-02-26] MEDS: guaiFENesin 600 MG Tablet 1200 MG PO ×2 (05:07→17:47)
[2021-02-26] MEDS: Fluticasone/Salmeterol 232-14 Inhaler 1 PUFF INHALATION ×2 (05:08→17:48)
[2021-02-26] MEDS: Nystatin Powder 15gm Bottle 1 APPLIC TOPICAL ×3 (05:08→21:28)
[2021-02-26] MEDS: 0.9% Saline Lock 10 ML Syringe IV ×2 (05:10→18:48)
--- NOTE | 2021-02-26 06:21 | PCM.PROGNOTE ---
Subjective Subjective: 66 year old female seen bedside this morning s/p week #1 left transmetatarsal amputation with closure for treatment of infection. This was a staged procedure. She relates her pain at worse is a 2/10. She denies fever, chills, nausea, vomiting, chest pain, shortness of breath, calf pain. She denies placing weight on her foot. She has been more active with physical therapy. Objective Data Objective Data Vital Signs: Vital Signs Temp Pulse Resp BP Pulse Ox 97.4 F L 65 16 126/61 H 96 02/26/21 05:00 02/26/21 05:00 02/26/21 05:00 02/26/21 05:00 02/26/21 05:00 Oxygen Delivery Method Room Air Weight: 70.216 kg Body Mass Index (BMI) 26.1 Orthostatic Vital Signs Start: 02/03/21 16:30 Freq: Status: Active Protocol: Activity Type Activity Date Activity User E-Sign Co-Sign Detail Recorded Client Recorded Date Recorded By Document 02/12/21 13:38 ML [id number] 02/12/21 13:39 ML 02/12/21 13:38 Orthostatic Vitals Standing -Blood Pressure (90/60-120/80) 81/44 L -Extremity Use Right Arm -Pulse Rate (60-100) 100 Sitting -Blood Pressure (90/60-120/80) 113/62 -Extremity Use Right Arm -Pulse Rate (60-100) 80 Lying -Blood Pressure (90/60-120/80) 127/61 H -Extremity Use Right Arm -Pulse Rate (60-100) 74 Intake & Output: Intake and Output for Last 24 Hours 02/24/21 02/25/21 02/26/21 23:59 23:59 23:59 Intake Total 1536.05 / 1536.05 720 / 720 Balance 1536.05 / 1536.05 720 / 720 Lab / Micro Data Result Diagrams: 02/22/21 05:10 02/21/21 05:40 Labs: Laboratory Results - last 24 hr 02/25/21 02/25/21 02/25/21 06:15 11:03 15:50 POC Glucose 135 H 223 H 227 H 02/25/21 21:44 POC Glucose 214 H Micro: Microbiology 02/18/21 15:30 Mucosa - Nose SARS-CoV-2 Antigen (Rapid) - Final 02/08/21 17:02 Interface Orders Urine Culture - Final Culture exhibits no growth. 02/06/21 15:30 Stool C. difficile DNA Amplification - Final 02/01/21 19:43 Wound Abcess - Aerobic & Anaerobic Swabs Gram Stain - Final 02/01/21 19:43 Wound Abcess - Aerobic & Anaerobic Swabs Wound Culture - Final Staphylococcus aureus 02/01/21 19:43 Wound Abcess - Aerobic & Anaerobic Swabs Anaerobic Culture - Final No anaerobic bacteria isolated. Radiography Diagnostic Testing: Radiology Impression KUB X-Ray 02/25/21 18:30 IMPRESSION: Moderately distention stomach. Electronically Signed: Victoriano Santoro DO at 22:37 EDT Tel [phone], Service support , Physical Exam Const alert and oriented x3 General Appearance: cooperative HEENT normocephalic Extremity normal capillary refill Extremity Narrative: no cyanosis, no calf tenderness, diminished pulses muscle wasting noted. no tenderness. General Extremity: edema Skin Skin Narrative: no purulence, no erythema, no streaking, no odor, no infection. Adjacent skin is atrophic. There are sutures are intact to the left transmetatarsal amputation without gapping. Dusky development to the lateral most aspect along incision line without loss of warmth. mild hematogenous drainage noted on inner dressing Neuro Neuro Narrative: lack of normal epicritic sensation via light touch consistent with neuropathy Assessment & Plan Assessment/Plan (1) Abscess of left foot: Status: Resolved Code(s): L02.612 - Cutaneous abscess of left foot (2) Type 2 diabetes mellitus with diabetic polyneuropathy: Status: Chronic Code(s): E11.42 - Type 2 diabetes mellitus with diabetic polyneuropathy (3) Wound of left foot: Status: Acute Code(s): S91.302A - Unspecified open wound, left foot, initial encounter Plan: s/p 1 week left transmetatarsal amputation with closure Diabetes with neuropathy Malnutrition suspected Deep venous thrombosis left posterior tibial vein Other comorbidities: epilepsy, history of brain tumor, GERD, h/o c. diff Patient seen and evaluated this morning.? I reviewed and discussed her case.? She remains stable.? She does not demonstrate leukocytosis. The dressing is changed with Betadine wet-to-dry dressing applied. This was also secured in place with an Demetrio wrap.?Discoloration of lateral amputation flap noted. No bogginess or fluctuance noted. To maintain a non weightbearing status of left lower extremity.? She will continue to work with physical therapy. To elevate limb at rest to reduce edema / tension on amputation site. DEMETRIO wrap applied. ID on consult. Prior abscess culture with MSSA. Now after staged infection management surgery and TMA closure, clearance fragment from surgery (bone) negative for osteo. Her preoperative MRI was also negative for residual osteo. Linezolid / meropenem changed to meropenem and then discontinued. Her increased diarrhea was previously noted and PO vanc at this time. Taper per ID. To continue Eliquis for treatment of acute deep venous thrombosis. Medical management per Dr. Ivy is appreciated and noted.? Please do not hesitate to call with any questions.? Discharge planning in process.? [facility] at time of discharge. Stacie Finn DPM, [facility] [phone] 02/22/21 0743 <Electronically signed by Stacie Finn DPM> Date Stacie Finn DPM Cosigner Signature (if applicable): Date ?
[2021-02-26 06:36] LABS: Bedside Glucose 142 mg/dL (70-110)
[2021-02-26] MEDS: Iron Polysaccharide Complex 150 MG CAPSULE PO (08:11)
[2021-02-26] MEDS: Juven (unflavored) Packet 1 PACKET PO ×2 (08:11→16:14)
[2021-02-26] MEDS: Aspirin 81 MG TAB.CHEW PO (08:12)
[2021-02-26] MEDS: Hydrocortisone 2.5% Crm 1 APPLIC TOPICAL (08:13)
--- NOTE | 2021-02-26 08:15 | NURSING ---
Dr Finn had been in this am to assess the left foot and change the dressing.
[2021-02-26] MEDS: Acetaminophen 500 MG Tablet PO (08:19)
[2021-02-26 11:05] LABS: Bedside Glucose 164 mg/dL (70-110)
[2021-02-26 13:54] VITALS: BP 97/62; PULSE 83; RESP 18; TEMP 36.8; O2SAT 98
[2021-02-26 16:45] LABS: Bedside Glucose 186 mg/dL (70-110)
[2021-02-26] MEDS: Gabapentin 600 MG Tablet PO (21:28)
[2021-02-26] MEDS: Acetaminophen 500 MG Tablet 1000 MG PO (21:30)
[2021-02-26 21:56] LABS: Bedside Glucose 142 mg/dL (70-110)
[2021-02-26 22:53] VITALS: PULSE 65; O2SAT 97
[2021-02-27 05:00] VITALS: BP 109/63; PULSE 58; RESP 18; TEMP 36.7; O2SAT 97
[2021-02-27 06:26] LABS: Bedside Glucose 142 mg/dL (70-110)
[2021-02-27] MEDS: Menthol/Lanolin/Calamine/Znox 113 GM Tube 1 APPLIC TOPICAL ×2 (06:45→17:20)
[2021-02-27] MEDS: guaiFENesin 600 MG Tablet 1200 MG PO ×2 (06:45→17:19)
[2021-02-27] MEDS: Gabapentin 300 MG Capsule PO ×2 (06:45→17:20)
[2021-02-27] MEDS: Loperamide 2 MG Capsule 4 MG PO ×4 (06:45→23:03)
[2021-02-27] MEDS: APIXABAN 5 MG TABLET PO ×2 (06:45→17:20)
[2021-02-27] MEDS: Pantoprazole Sodium 40 MG Tablet PO ×2 (06:45→17:19)
[2021-02-27] MEDS: Nystatin Powder 15gm Bottle 1 APPLIC TOPICAL ×3 (06:46→23:02)
[2021-02-27] MEDS: Fluticasone/Salmeterol 232-14 Inhaler 1 PUFF INHALATION ×2 (06:46→17:20)
[2021-02-27] MEDS: Juven (unflavored) Packet 1 PACKET PO ×2 (08:32→17:20)
[2021-02-27] MEDS: Aspirin 81 MG TAB.CHEW PO (08:35)
[2021-02-27] MEDS: Iron Polysaccharide Complex 150 MG CAPSULE PO (08:36)
[2021-02-27 10:46] LABS: Bedside Glucose 173 mg/dL (70-110)
[2021-02-27 13:18] VITALS: BP 97/71; PULSE 70; RESP 16; TEMP 36.8; O2SAT 99
[2021-02-27 16:40] LABS: Bedside Glucose 227 mg/dL (70-110)
[2021-02-27 21:26] LABS: Bedside Glucose 250 mg/dL (70-110)
[2021-02-27] MEDS: Gabapentin 600 MG Tablet PO (23:02)
--- NOTE | 2021-02-27 23:30 | NURSING ---
LUPE wrap removed from LLE to assess area where pt c/o pain. No redness, warmth, or swelling noted. Dressing secure but, not snug. LUPE wrap reapplied.
[2021-02-27] MEDS: Acetaminophen 500 MG Tablet 1000 MG PO (23:37)
[2021-02-28 04:47] LABS: Absolute Lymphocyte Count 3.85 X10^3/uL (0.83-4.51); Absolute Neutrophil Count 3.4 X10^3/uL (2.0-7.7); Basophil# 0.07 X10^3/uL; Basophil% 0.8 % (0-1); Eosinophil# 0.56 X10^3/uL; Eosinophils% 6.5 % (0-5); Hematocrit 30.8 % (37-47); Hemoglobin 9.9 g/dL (12.0-15.0); Lymphocyte # 3.85 X10^3/ul (0.83-4.51); Mean Corp Hgb Conc 32.1 g/dL (32-36); Mean Corpuscular Hgb 30.1 pg (27.0-32.0); Mean Corpuscular Volume 93.6 fL (81-99); Mean Platelet Vol. 10.1 fl (6.2-12.0); Monocyte# 0.66 X10^3/uL; Monocyte% 7.7 % (0-10); NRBC Flagged by Analyzer 0 % (0-5); Neutrophil # 3.39 X10^3/uL (2.7-7.7); Neutrophil % 39.8 % (47-70); Platelet Count 295 K/mm3 (150-450); RBC Distribution Width CV 13.5 % (11.6-14.6); RBC Distribution Width SD 46.5 fl (35.1-43.9); Red Blood Count 3.29 M/mm3 (4.2-5.4); White Blood Count 8.6 K/mm3 (4.4-11.0)
[2021-02-28 05:06] LABS: Anion Gap 4 (5-15); BUN 48 mg/dL (7-18); Chloride 107 mmol/L (98-107); EST Glomerular Filtration Rate 66 mL/min (>60); Est Glom Filt Rate - Afr Amer 80 mL/min (>60); Estimated Creatinine Clearance 53.81 ml/min; Glucose 205 mg/dL (74-106); Potassium 4.8 mmol/L (3.5-5.1); Sodium Level 136 mmol/L (136-145)
[2021-02-28 06:20] LABS: Bedside Glucose 158 mg/dL (70-110)
[2021-02-28 06:26] VITALS: BP 98/50; PULSE 62; RESP 16; TEMP 36.4; O2SAT 97
[2021-02-28] MEDS: guaiFENesin 600 MG Tablet 1200 MG PO ×2 (06:28→17:23)
[2021-02-28] MEDS: APIXABAN 5 MG TABLET PO ×2 (06:29→17:23)
[2021-02-28] MEDS: Loperamide 2 MG Capsule 4 MG PO ×4 (06:29→21:18)
[2021-02-28] MEDS: Gabapentin 300 MG Capsule PO ×2 (06:30→17:22)
[2021-02-28] MEDS: Menthol/Lanolin/Calamine/Znox 113 GM Tube 1 APPLIC TOPICAL ×2 (06:30→17:26)
[2021-02-28] MEDS: Nystatin Powder 15gm Bottle 1 APPLIC TOPICAL ×3 (06:30→21:35)
[2021-02-28] MEDS: Pantoprazole Sodium 40 MG Tablet PO ×2 (06:30→17:23)
[2021-02-28] MEDS: Fluticasone/Salmeterol 232-14 Inhaler 1 PUFF INHALATION ×2 (06:31→17:25)
[2021-02-28] MEDS: Juven (unflavored) Packet 1 PACKET PO ×2 (08:09→17:25)
[2021-02-28] MEDS: Iron Polysaccharide Complex 150 MG CAPSULE PO (08:09)
[2021-02-28] MEDS: Aspirin 81 MG TAB.CHEW PO (08:09)
--- NOTE | 2021-02-28 10:29 | PCM.PROGNOTE ---
Subjective Subjective: 66 year old female seen bedside this morning. She is s/p left transmetatarsal amputation with closure for treatment of infection. This was a staged procedure. She denies foot pain this morning with intermittent pain otherwise. She denies fever, vomiting, chest pain, shortness of breath, calf pain. She has reported prior intermittent nausea, night sweats, and chills. She denies placing weight on her foot. She continues to offload her foot. Objective Data Objective Data Vital Signs: Vital Signs Temp Pulse Resp BP Pulse Ox 97.5 F L 62 16 98/50 L 97 02/28/21 06:26 02/28/21 06:26 02/28/21 06:26 02/28/21 06:26 02/28/21 06:26 Oxygen Delivery Method Room Air Weight: 154 lb 12.8 oz Body Mass Index (BMI) 26.1 Orthostatic Vital Signs Start: 02/03/21 16:30 Freq: Status: Active Protocol: Activity Type Activity Date Activity User E-Sign Co-Sign Detail Recorded Client Recorded Date Recorded By Document 02/12/21 13:38 ML [id number] 02/12/21 13:39 ML 02/12/21 13:38 Orthostatic Vitals Standing -Blood Pressure (90/60-120/80) 81/44 L -Extremity Use Right Arm -Pulse Rate (60-100) 100 Sitting -Blood Pressure (90/60-120/80) 113/62 -Extremity Use Right Arm -Pulse Rate (60-100) 80 Lying -Blood Pressure (90/60-120/80) 127/61 H -Extremity Use Right Arm -Pulse Rate (60-100) 74 Intake & Output: Intake and Output for Last 24 Hours 02/26/21 02/27/21 02/28/21 23:59 23:59 23:59 Intake Total 600 / 600 820 / 820 240 / 240 Balance 600 / 600 820 / 820 240 / 240 Lab / Micro Data Result Diagrams: 02/28/21 04:30 02/28/21 04:30 Labs: Laboratory Results - last 24 hr 02/27/21 02/27/21 02/27/21 10:34 16:34 21:07 WBC RBC Hgb Hct MCV MCH MCHC RDW Std Deviation RDW Coeff of Xin Plt Count MPV Immature Gran % (Auto) Neut % (Auto) Lymph % (Auto) [place] % (Auto) Eos % (Auto) Baso % (Auto) Absolute Neuts (auto) Absolute Lymphs (auto) Nucleated RBC % Sodium Potassium Chloride Carbon Dioxide Anion Gap BUN Creatinine Estim Creat Clear Calc Est GFR (MDRD) Af Amer Est GFR (MDRD) Non-Af BUN/Creatinine Ratio Glucose Calcium POC Glucose 173 H 227 H 250 H 02/28/21 02/28/21 02/28/21 04:30 04:30 06:12 WBC 8.6 RBC 3.29 L Hgb 9.9 L Hct 30.8 L MCV 93.6 MCH 30.1 MCHC 32.1 RDW Std Deviation 46.5 H RDW Coeff of Xin 13.5 Plt Count 295 MPV 10.1 Immature Gran % (Auto) 0.200 Neut % (Auto) 39.8 L Lymph % (Auto) 45.0 H [place] % (Auto) 7.7 Eos % (Auto) 6.5 H Baso % (Auto) 0.8 Absolute Neuts (auto) 3.4 Absolute Lymphs (auto) 3.85 Nucleated RBC % 0 Sodium 136 Potassium 4.8 Chloride 107 Carbon Dioxide 25.0 Anion Gap 4 L BUN 48 H Creatinine 0.90 Estim Creat Clear Calc 53.81 Est GFR (MDRD) Af Amer 80 Est GFR (MDRD) Non-Af 66 BUN/Creatinine Ratio 53.0 H Glucose 205 H Calcium 9.0 POC Glucose 158 H Micro: Microbiology 02/18/21 15:30 Mucosa - Nose SARS-CoV-2 Antigen (Rapid) - Final 02/08/21 17:02 Interface Orders Urine Culture - Final Culture exhibits no growth. 02/06/21 15:30 Stool C. difficile DNA Amplification - Final 02/01/21 19:43 Wound Abcess - Aerobic & Anaerobic Swabs Gram Stain - Final 02/01/21 19:43 Wound Abcess - Aerobic & Anaerobic Swabs Wound Culture - Final Staphylococcus aureus 02/01/21 19:43 Wound Abcess - Aerobic & Anaerobic Swabs Anaerobic Culture - Final No anaerobic bacteria isolated. Physical Exam Const alert and oriented x3 General Appearance: cooperative HEENT normocephalic Extremity normal capillary refill Extremity Narrative: no cyanosis, no calf tenderness, diminished pulses muscle wasting noted. no tenderness. Left transmetatarsal amputation General Extremity: edema Skin Skin Narrative: no purulence, no erythema, no streaking, no odor, no infection. Adjacent skin is atrophic. There are sutures are intact to the left transmetatarsal amputation without gapping. Dusky development to the lateral most aspect along incision line without loss of warmth and ecchymosis discoloration to central plantar and plantar lateral aspects of the flap. mild hematogenous drainage noted on inner dressing without purulence Neuro Neuro Narrative: lack of normal epicritic sensation via light touch consistent with neuropathy Assessment & Plan Assessment/Plan (1) Abscess of left foot: Status: Resolved Code(s): L02.612 - Cutaneous abscess of left foot (2) Type 2 diabetes mellitus with diabetic polyneuropathy: Status: Chronic Code(s): E11.42 - Type 2 diabetes mellitus with diabetic polyneuropathy (3) Wound of left foot: Status: Acute Code(s): S91.302A - Unspecified open wound, left foot, initial encounter Plan: s/p left transmetatarsal amputation with closure (DOS 02/19/2021) Diabetes with neuropathy Malnutrition suspected Deep venous thrombosis left posterior tibial vein Left foot infection resolved Other comorbidities: epilepsy, history of brain tumor, GERD, h/o c. diff Patient seen and evaluated this morning.? I reviewed and discussed her case.? She remains stable.? She remains afebrile. The dressing is changed with Betadine wet-to-dry dressing applied. This was also secured in place with an Demetrio wrap.?Discoloration of lateral amputation flap noted. No bogginess, fluctuance, or local infection noted. This flap is now compromised and demarcation is in process. She understands it may remain viable versus tissue loss may continue resulting in the need for a different local wound care plan or further amputation. To maintain a non weightbearing status of left lower extremity.? She will continue to work with physical and occupational therapy. To elevate limb at rest to reduce edema / tension on amputation site. DEMETRIO wrap applied. ID on consult. Prior abscess culture with MSSA. Now after staged infection management surgery and TMA closure, clearance fragment from surgery (bone) negative for osteo. Her preoperative MRI was also negative for residual osteo. Linezolid / meropenem changed to meropenem and then discontinued. Her increased diarrhea was previously noted and PO vanc at this time. Taper per ID. To continue Eliquis for treatment of acute deep venous thrombosis. Medical management per Dr. Ivy is appreciated and noted.? Please do not hesitate to call with any questions.? Discharge planning in process.? [facility] of discharge. The podiatry team will continue to follow her biweekly. Stacie Finn DPM, [facility] [phone]
[2021-02-28 11:05] LABS: Bedside Glucose 212 mg/dL (70-110)
[2021-02-28 15:10] VITALS: BP 129/56; PULSE 73; RESP 16; TEMP 36.5; O2SAT 93
[2021-02-28 16:50] LABS: Bedside Glucose 205 mg/dL (70-110)
[2021-02-28 19:32] VITALS: PULSE 72; RESP 16; O2SAT 97
[2021-02-28] MEDS: Gabapentin 600 MG Tablet PO (21:18)
[2021-02-28] MEDS: HYDROcodone Bitartrate/Apap 5/325 Tablet PO (21:33)
[2021-02-28] MEDS: Ondansetron ODT 4 MG Tablet PO (21:34)
[2021-02-28 22:11] LABS: Bedside Glucose 205 mg/dL (70-110)
[2021-03-01] MEDS: guaiFENesin 600 MG Tablet 1200 MG PO ×2 (05:59→17:21)
[2021-03-01] MEDS: APIXABAN 5 MG TABLET PO ×2 (05:59→17:20)
[2021-03-01] MEDS: Gabapentin 300 MG Capsule PO ×2 (05:59→17:21)
[2021-03-01] MEDS: Fluticasone/Salmeterol 232-14 Inhaler 1 PUFF INHALATION ×2 (05:59→17:19)
[2021-03-01] MEDS: Nystatin Powder 15gm Bottle 1 APPLIC TOPICAL ×3 (06:00→21:07)
[2021-03-01] MEDS: Loperamide 2 MG Capsule 4 MG PO ×4 (06:01→21:07)
[2021-03-01] MEDS: Pantoprazole Sodium 40 MG Tablet PO ×2 (06:02→17:21)
[2021-03-01] MEDS: Menthol/Lanolin/Calamine/Znox 113 GM Tube 1 APPLIC TOPICAL ×2 (06:04→17:25)
[2021-03-01] MEDS: Acetaminophen 500 MG Tablet 1000 MG PO (06:09)
[2021-03-01 06:10] VITALS: BP 109/55; PULSE 60; RESP 14; TEMP 36.7; O2SAT 97
[2021-03-01 06:15] LABS: Bedside Glucose 152 mg/dL (70-110)
[2021-03-01] MEDS: Juven (unflavored) Packet 1 PACKET PO ×2 (07:58→17:20)
[2021-03-01] MEDS: Iron Polysaccharide Complex 150 MG CAPSULE PO (07:58)
[2021-03-01] MEDS: Aspirin 81 MG TAB.CHEW PO (07:58)
[2021-03-01] MEDS: Ondansetron ODT 4 MG Tablet PO (10:17)
[2021-03-01 11:10] LABS: Bedside Glucose 185 mg/dL (70-110)
--- NOTE | 2021-03-01 12:16 | NURSING ---
Leo nelson said she would be in tomorrow 03/02/21 to change pts dressing since Fascione just changed it yesterday.
[2021-03-01 15:04] VITALS: BP 129/70; PULSE 67; RESP 16; TEMP 36.4; O2SAT 99
[2021-03-01 16:45] LABS: Bedside Glucose 259 mg/dL (70-110)
[2021-03-01] MEDS: 0.9% Saline Lock 10 ML Syringe IV (17:24)
[2021-03-01] MEDS: Gabapentin 600 MG Tablet PO (21:10)
[2021-03-01 21:16] LABS: Bedside Glucose 211 mg/dL (70-110)
[2021-03-02 06:14] VITALS: BP 123/62; PULSE 60; RESP 16; TEMP 36.7; O2SAT 98
[2021-03-02 06:15] LABS: Bedside Glucose 178 mg/dL (70-110)
[2021-03-02] MEDS: APIXABAN 5 MG TABLET PO ×2 (06:17→17:33)
[2021-03-02] MEDS: guaiFENesin 600 MG Tablet 1200 MG PO ×2 (06:18→17:33)
[2021-03-02] MEDS: Loperamide 2 MG Capsule 4 MG PO ×4 (06:18→20:44)
[2021-03-02] MEDS: Nystatin Powder 15gm Bottle 1 APPLIC TOPICAL ×3 (06:19→20:45)
[2021-03-02] MEDS: Pantoprazole Sodium 40 MG Tablet PO ×2 (06:19→17:34)
[2021-03-02] MEDS: Gabapentin 300 MG Capsule PO ×2 (06:19→17:33)
[2021-03-02] MEDS: Fluticasone/Salmeterol 232-14 Inhaler 1 PUFF INHALATION ×2 (06:21→17:28)
[2021-03-02] MEDS: Menthol/Lanolin/Calamine/Znox 113 GM Tube 1 APPLIC TOPICAL ×2 (06:21→17:32)
[2021-03-02] MEDS: Hydrocortisone 2.5% Crm 1 APPLIC TOPICAL (06:23)
[2021-03-02] MEDS: 0.9% Saline Lock 10 ML Syringe IV ×2 (06:27→10:17)
--- NOTE | 2021-03-02 08:01 | NURSING ---
wound photo: left foot
--- NOTE | 2021-03-02 08:01 | NURSING ---
wound photo: left foot
--- NOTE | 2021-03-02 08:02 | NURSING ---
wound photo: left heel
[2021-03-02] MEDS: Juven (unflavored) Packet 1 PACKET PO ×2 (09:01→17:30)
[2021-03-02] MEDS: Aspirin 81 MG TAB.CHEW PO (09:01)
[2021-03-02] MEDS: Iron Polysaccharide Complex 150 MG CAPSULE PO (09:01)
--- NOTE | 2021-03-02 11:35 | NURSING ---
WANDARN/WOUND NURSE IN TO CHANGE PT DRESSING TO FOOT.
--- NOTE | 2021-03-02 12:17 | PCM.PROGNOTE ---
Subjective Subjective: Patient seen and examined resting comfortably. Patient denies any new pedal complaints. Patient denies any nausea, fever, chills, chest pain, shortness of breath, cough, streaking, purulence, vomiting. Patient reports that she has not been walking on the foot at all and has her offloading boot on constantly. She has been trying to be very diligent about not putting weight on her foot Objective Data Objective Data Vital Signs: Vital Signs Temp Pulse Resp BP Pulse Ox 98.1 F 60 16 123/62 H 98 03/02/21 06:14 03/02/21 06:14 03/02/21 06:14 03/02/21 06:14 03/02/21 06:14 Oxygen Delivery Method Room Air Weight: 157 lb 4 oz Body Mass Index (BMI) 26.1 Orthostatic Vital Signs Start: 02/03/21 16:30 Freq: Status: Active Protocol: Activity Type Activity Date Activity User E-Sign Co-Sign Detail Recorded Client Recorded Date Recorded By Document 02/12/21 13:38 ML [id number] 02/12/21 13:39 ML 02/12/21 13:38 Orthostatic Vitals Standing -Blood Pressure (90/60-120/80) 81/44 L -Extremity Use Right Arm -Pulse Rate (60-100) 100 Sitting -Blood Pressure (90/60-120/80) 113/62 -Extremity Use Right Arm -Pulse Rate (60-100) 80 Lying -Blood Pressure (90/60-120/80) 127/61 H -Extremity Use Right Arm -Pulse Rate (60-100) 74 Intake & Output: Intake and Output for Last 24 Hours 02/28/21 03/01/21 03/02/21 23:59 23:59 23:59 Intake Total 360 / 360 660 / 660 480 / 480 Balance 360 / 360 660 / 660 480 / 480 Lab / Micro Data Result Diagrams: 02/28/21 04:30 02/28/21 04:30 Labs: Laboratory Results - last 24 hr 03/01/21 03/01/21 03/02/21 16:41 21:11 06:06 POC Glucose 259 H 211 H 178 H Micro: Microbiology 02/18/21 15:30 Mucosa - Nose SARS-CoV-2 Antigen (Rapid) - Final 02/08/21 17:02 Interface Orders Urine Culture - Final Culture exhibits no growth. 02/06/21 15:30 Stool C. difficile DNA Amplification - Final 02/01/21 19:43 Wound Abcess - Aerobic & Anaerobic Swabs Gram Stain - Final 02/01/21 19:43 Wound Abcess - Aerobic & Anaerobic Swabs Wound Culture - Final Staphylococcus aureus 02/01/21 19:43 Wound Abcess - Aerobic & Anaerobic Swabs Anaerobic Culture - Final No anaerobic bacteria isolated. Physical Exam Const alert and oriented x3 General Appearance: cooperative HEENT normocephalic Resp normal respiratory effort Extremity normal capillary refill Extremity Narrative: no cyanosis, no calf tenderness, diminished pulses muscle wasting noted. no tenderness. Left transmetatarsal amputation General Extremity: edema Skin Skin Narrative: no purulence, no erythema, no streaking, no odor, no infection. Adjacent skin is atrophic. There are sutures are intact to the left transmetatarsal amputation without gapping. Dusky development with early signs of necrosis noted to the lateral most aspect along incision line without loss of warmth Ecchymosis discoloration to central plantar aspect of the left foot with fluctuation noted with serosanguineous drainage noted upon debridement with very superficial underlying ulceration. This blister only had serosanguineous drainage. No purulent drainage was expressed. The devitalized tissue was removed. mild hematogenous drainage noted on inner dressing without purulence Neuro Neuro Narrative: lack of normal epicritic sensation via light touch consistent with neuropathy Psych cooperative and affect normal Assessment & Plan Assessment/Plan (1) Type 2 diabetes mellitus with diabetic polyneuropathy: Status: Chronic Code(s): E11.42 - Type 2 diabetes mellitus with diabetic polyneuropathy (2) Wound of left foot: Status: Acute Code(s): S91.302A - Unspecified open wound, left foot, initial encounter (3) Abscess of left foot: Status: Resolved Code(s): L02.612 - Cutaneous abscess of left foot (4) Blister (nonthermal), left foot, initial encounter: Status: Acute Code(s): S90.822A - Blister (nonthermal), left foot, initial encounter (5) PAD (peripheral artery disease): Status: Acute Code(s): I73.9 - Peripheral vascular disease, unspecified (6) Non-pressure chronic ulcer of other part of left foot limited to breakdown of skin: Status: Chronic Code(s): L97.521 - Non-pressure chronic ulcer of other part of left foot limited to breakdown of skin Plan: s/p left transmetatarsal amputation with closure (DOS 02/19/2021) Diabetes with neuropathy Malnutrition suspected Deep venous thrombosis left posterior tibial vein Left foot infection resolved Other comorbidities: epilepsy, history of brain tumor, GERD, h/o c. diff Patient seen and evaluated this morning.? I reviewed and discussed her case.? She remains afebrile. Patient was noted to have fluctuant mass on plantar aspect of her remaining left foot. This blister was drained bedside without use of anesthetic due to patient's neuropathy. Only serosanguineous drainage is noted. No purulent drainage was expressed. The underlying wound was noted to be very superficial in nature. This was likely caused from some sort of friction event. Patient denies any walking or rubbing of her foot on the end of the bed or being in the chair. It is possible this could be from swelling or from the dressing as well. Sharp excisional nonselective debridement was carried out into the level of dermis with a 15 blade and pickups with removal of all devitalized, slough, biofilm, and fibrous tissue. This was done without incidence. This was tolerated due to patient's neuropathy. Predebridement measurements were 2.5 x 3.5cm and post debridement measurements were 3 x 4 x 0.1cm The dressing is changed with Betadine wet-to-dry dressing applied. This was also secured in place with an Demetrio wrap.?Discoloration of lateral amputation flap noted. No bogginess, fluctuance, or local infection noted. This flap is now compromised and demarcation is in process. She understands it may remain viable versus tissue loss may continue resulting in the need for a different local wound care plan or further amputation. Discussed that depending on how much a demarcation happens that this may need local wound care versus further surgical debridements but we will have to wait and see To maintain a non weightbearing status of left lower extremity.? She will continue to work with physical and occupational therapy. To elevate limb at rest to reduce edema / tension on amputation site. DEMETRIO wrap applied. To prevent any rubbing at the site or pressure. Discussed making sure she has boosted in bed so as not to be rubbing on the footboard. ID on consult. They are managing her antibiotics To continue Eliquis for treatment of acute deep venous thrombosis. Medical management per Dr. Ivy is appreciated and noted.? Please do not hesitate to call with any questions.? Discharge planning in process.? [facility] at time of discharge. The podiatry team will continue to follow her biweekly. Sarah Lea DPM [facility] [phone]
--- NOTE | 2021-03-02 12:49 | NURSING ---
pt updated family
[2021-03-02 13:21] LABS: Bedside Glucose 191 mg/dL (70-110)
[2021-03-02 13:52] VITALS: BP 114/63; PULSE 78; RESP 16; TEMP 36.6; O2SAT 98
[2021-03-02 16:35] LABS: Bedside Glucose 176 mg/dL (70-110)
[2021-03-02] MEDS: Gabapentin 600 MG Tablet PO (20:45)
[2021-03-02 20:59] VITALS: PULSE 68; RESP 16; O2SAT 98
[2021-03-02 21:20] LABS: Bedside Glucose 268 mg/dL (70-110)
[2021-03-03 03:06] VITALS: BP 156/71; PULSE 68; RESP 16; TEMP 36.2; O2SAT 98
[2021-03-03] MEDS: Nystatin Powder 15gm Bottle 1 APPLIC TOPICAL ×3 (06:00→21:22)
[2021-03-03] MEDS: guaiFENesin 600 MG Tablet 1200 MG PO ×2 (06:00→17:37)
[2021-03-03] MEDS: Pantoprazole Sodium 40 MG Tablet PO ×2 (06:00→17:38)
[2021-03-03] MEDS: APIXABAN 5 MG TABLET PO ×2 (06:00→17:38)
[2021-03-03] MEDS: Gabapentin 300 MG Capsule PO ×2 (06:00→17:38)
[2021-03-03] MEDS: Loperamide 2 MG Capsule 4 MG PO ×4 (06:00→21:21)
[2021-03-03] MEDS: Fluticasone Propion/Salmeterol 250-50 Inhaler 1 PUFF INHALATION ×2 (06:01→17:39)
[2021-03-03] MEDS: Menthol/Lanolin/Calamine/Znox 113 GM Tube 1 APPLIC TOPICAL ×2 (06:01→17:39)
[2021-03-03 06:25] LABS: Bedside Glucose 149 mg/dL (70-110)
[2021-03-03] MEDS: Juven (unflavored) Packet 1 PACKET PO ×2 (08:06→17:34)
[2021-03-03] MEDS: Iron Polysaccharide Complex 150 MG CAPSULE PO (08:06)
[2021-03-03] MEDS: Aspirin 81 MG TAB.CHEW PO (08:06)
--- NOTE | 2021-03-03 10:32 | NURSING ---
Dressing D&I to the left foot. plan to change the dressing again tomorrow. Dr Lea to change the dressing Monday03/06/21.
--- NOTE | 2021-03-03 14:52 | NURSING ---
Pt c/o left eye pain and states she has decreased vision in that eye stating it started a couple days ago, Dr. Ivy updated.
[2021-03-03 15:00] VITALS: BP 139/82; PULSE 81; RESP 16; TEMP 36.3; O2SAT 97
[2021-03-03 15:35] LABS: Bedside Glucose 303 mg/dL (70-110)
[2021-03-03 15:35] LABS: Bedside Glucose 296 mg/dL (70-110)
[2021-03-03 16:31] LABS: Bedside Glucose 208 mg/dL (70-110)
[2021-03-03 20:02] VITALS: PULSE 73; RESP 16; O2SAT 98
[2021-03-03 20:59] VITALS: BP 162/76; PULSE 77
[2021-03-03 21:16] LABS: Bedside Glucose 316 mg/dL (70-110)
[2021-03-03] MEDS: Gabapentin 600 MG Tablet PO (21:21)
[2021-03-03] MEDS: 0.9% Saline Lock 10 ML Syringe IV (21:21)
--- NOTE | 2021-03-03 21:23 | NURSING ---
Patient blood glucose level 316 mg/dL. RN aware.
--- NOTE | 2021-03-03 21:55 | NURSING ---
Paged Dr. Ivy w/ return phone call within minutes. Updated on elevated blood sugar at 316. New order received for HUmalog 10 units subcut x1.
[2021-03-03] MEDS: Insulin Lispro 100 UNIT/ML INSULN.PEN 10 UNIT SC (22:18)
--- NOTE | 2021-03-03 23:45 | NURSING ---
Noted order for CT of brain/head without contrast was cancelled. This nurse re-entered order. Received call from Sara in radiology questioning why order was re-entered. Informed Sara concerns with order not being carried out when cancelled. She notes orders for this unit are re-entered as an outpatient. She will have someone who arrives at 0600 to call [facility]CU staff to coordinate care.
[2021-03-04 03:06] LABS: Bedside Glucose 260 mg/dL (70-110)
[2021-03-04 05:00] VITALS: BP 128/66; PULSE 73; RESP 16; TEMP 36.2; O2SAT 98
[2021-03-04] MEDS: guaiFENesin 600 MG Tablet 1200 MG PO ×2 (05:48→17:50)
[2021-03-04] MEDS: APIXABAN 5 MG TABLET PO ×2 (05:48→17:50)
[2021-03-04] MEDS: Menthol/Lanolin/Calamine/Znox 113 GM Tube 1 APPLIC TOPICAL ×2 (05:50→17:50)
[2021-03-04] MEDS: Loperamide 2 MG Capsule 4 MG PO ×4 (05:50→22:36)
[2021-03-04] MEDS: Pantoprazole Sodium 40 MG Tablet PO ×2 (05:50→17:53)
[2021-03-04] MEDS: Nystatin Powder 15gm Bottle 1 APPLIC TOPICAL ×3 (05:50→22:37)
[2021-03-04] MEDS: Fluticasone Propion/Salmeterol 250-50 Inhaler 1 PUFF INHALATION ×2 (05:50→17:53)
[2021-03-04] MEDS: Gabapentin 300 MG Capsule PO ×2 (05:50→17:51)
[2021-03-04 06:25] LABS: Bedside Glucose 174 mg/dL (70-110)
[2021-03-04] MEDS: Juven (unflavored) Packet 1 PACKET PO ×2 (08:20→17:49)
[2021-03-04] MEDS: Iron Polysaccharide Complex 150 MG CAPSULE PO (08:20)
[2021-03-04] MEDS: Aspirin 81 MG TAB.CHEW PO (08:20)
[2021-03-04 10:00] VITALS: PULSE 86; RESP 18; O2SAT 86
[2021-03-04 10:41] LABS: Bedside Glucose 205 mg/dL (70-110)
--- NOTE | 2021-03-04 11:50 | CASEMGMT ---
Social Work Multiple attempts the past several days to visit with pt and discuss DC plans. Pt unavailable each attempt, Will continue to try. Philly Ace, [employer]
[2021-03-04 13:57] VITALS: BP 152/72; PULSE 76; RESP 18; TEMP 36.2; O2SAT 98
[2021-03-04] MEDS: 0.9% Saline Lock 10 ML Syringe IV (14:14)
--- NOTE | 2021-03-04 14:35 | NURSING ---
wound photo: left foot
--- NOTE | 2021-03-04 14:36 | NURSING ---
wound photo: left foot
--- NOTE | 2021-03-04 14:37 | NURSING ---
wound photo: left foot
--- NOTE | 2021-03-04 14:37 | NURSING ---
wound photo: left heel
--- NOTE | 2021-03-04 16:15 | CHAPLAIN ---
Type of Pastoral Visit ___ Initial Visit _x__ Follow-up Visit ___ On-call Visit ___ General Patient Visit ___ Spiritual Assessment ___ Family Conference ___ Bereavement ___ Rapid Response ___ Code Blue ___ Other (describe below) Pastoral Care Referral From _x__ Patient ___ Family ___ Nurse ___ Physician ___ Atomic Physics Teacher ___ Educational Aid ___ Other (describe below) Sacrament/Intervention _x__ Active listening ___ Anointing ___ Amish ___ Bereavement ___ Communion ___ Dang exploration ___ _x__ Life review _x__ Prayer ___ Reconciliation ___ Sacrament of Sick ___ Supportive presence ___ Wedding ___ Other (describe below) Pastoral Comments
[2021-03-04 16:36] LABS: Bedside Glucose 192 mg/dL (70-110)
[2021-03-04 21:36] LABS: Bedside Glucose 245 mg/dL (70-110)
[2021-03-04] MEDS: Gabapentin 600 MG Tablet PO (22:37)
[2021-03-05 05:00] VITALS: BP 126/60; PULSE 65; RESP 18; TEMP 37; O2SAT 97
[2021-03-05 06:21] LABS: Bedside Glucose 145 mg/dL (70-110)
[2021-03-05] MEDS: Fluticasone Propion/Salmeterol 250-50 Inhaler 1 PUFF INHALATION ×2 (06:45→17:52)
[2021-03-05] MEDS: Loperamide 2 MG Capsule 4 MG PO ×4 (06:45→21:06)
[2021-03-05] MEDS: APIXABAN 5 MG TABLET PO ×2 (06:45→17:54)
[2021-03-05] MEDS: guaiFENesin 600 MG Tablet 1200 MG PO ×2 (06:46→17:54)
[2021-03-05] MEDS: Gabapentin 300 MG Capsule PO ×2 (06:46→17:55)
[2021-03-05] MEDS: Pantoprazole Sodium 40 MG Tablet PO ×2 (06:46→17:55)
[2021-03-05] MEDS: Nystatin Powder 15gm Bottle 1 APPLIC TOPICAL ×3 (06:49→21:08)
[2021-03-05] MEDS: Menthol/Lanolin/Calamine/Znox 113 GM Tube 1 APPLIC TOPICAL ×2 (06:49→17:55)
[2021-03-05] MEDS: Juven (unflavored) Packet 1 PACKET PO ×2 (08:27→17:52)
[2021-03-05] MEDS: Iron Polysaccharide Complex 150 MG CAPSULE PO (08:27)
[2021-03-05] MEDS: Aspirin 81 MG TAB.CHEW PO (08:28)
[2021-03-05 11:11] LABS: Bedside Glucose 214 mg/dL (70-110)
--- NOTE | 2021-03-05 12:20 | CASEMGMT ---
Social Work Met with patient to discuss DC plans. Spoke with patient and differences in level of care between AL and SNF. Unsure which pt would be more appropriate for at time of DC. Discussed concerns that AL traditionally is unable to provide higher level medical care and with pt's hx of wounds and dizziness, pt may be more appropriate for SNF until she is consistently stable. Discussed be in AL, she be in SNF and then can transition to AL with him when stable. Pt agreeable and understands. Explained regardless, room and board/rent would be private pay but Medicare could cover C or part B therapies for a few weeks at DC. Pt and interested in WVM with all levels of care and requested referral. Referral made. Pt stated Dr. Finn to see patient in the next couple days. SW encouraged pt to inquire to Dr her vision for wound care within the next month and if she has an opinion on level of care initially a DC. Pt agrees. SW to continue to follow. Philly Ace, DOCK SUPERVISOR THEATRICAL SCENIC DESIGNER
[2021-03-05 13:57] VITALS: BP 114/62; PULSE 67; RESP 16; TEMP 36.2; O2SAT 99
--- NOTE | 2021-03-05 14:04 | PN.ID_ITS ---
Physical Exam Narrative No fever, foot doing well, diarrhea has slowed Const alert General Appearance: cooperative Resp clear to auscultation bilaterally Cardio regular rate and regular rhythm GI normal to inspection, nondistended, normoactive bowel sounds Skin Skin Narrative: reviewed foot photo ID ID: Route of nutrition/ use of supplements: [] Nutritional Intake: [] IV Site: [] Nguyen Catheter: [] Assessment & Plan Assessment/Plan (1) Osteomyelitis of left foot: PLAN: MSSA L foot osteo - had 2nd and 3rd toe amputation and partial metatarsal resection at [facility] 01/26/21. Discharged here on po doxy for mssa and po cipro for esbl klebs uti. Now with worsening purulence and inflam mation of L foot. MRI did not show any residual osteo. Abx changed back to linezolid/meropenem, now s/p OR with Dr. Finn 02/02/21. Cxs again with MSSA. Off linezolid. Completed meropenem. Had some increase in chronic diarrhea with h/o cdiff, po vanc seems to have helped. Now s/p TMA with closure 02/19/[address] Finn, clearance cx neg so far. Reviewed labs, vitals, imaging. On vanc taper, now at bid for a week, then daily for a week, then q2day for 2 weeks. Will follow
[2021-03-05 16:56] LABS: Bedside Glucose 289 mg/dL (70-110)
[2021-03-05] MEDS: Gabapentin 600 MG Tablet PO (21:06)
[2021-03-05 21:26] LABS: Bedside Glucose 253 mg/dL (70-110)
[2021-03-06 05:00] VITALS: BP 122/56; PULSE 65; RESP 16; TEMP 36.6; O2SAT 96
[2021-03-06] MEDS: Loperamide 2 MG Capsule 4 MG PO ×4 (05:26→20:06)
[2021-03-06] MEDS: Gabapentin 300 MG Capsule PO ×2 (05:27→17:18)
[2021-03-06] MEDS: Pantoprazole Sodium 40 MG Tablet PO ×2 (05:27→17:18)
[2021-03-06] MEDS: APIXABAN 5 MG TABLET PO ×2 (05:27→17:17)
[2021-03-06] MEDS: guaiFENesin 600 MG Tablet 1200 MG PO ×2 (05:27→17:17)
[2021-03-06] MEDS: Fluticasone Propion/Salmeterol 250-50 Inhaler 1 PUFF INHALATION ×2 (05:32→17:14)
[2021-03-06] MEDS: 0.9% Saline Lock 10 ML Syringe IV ×2 (05:33→13:38)
[2021-03-06] MEDS: Menthol/Lanolin/Calamine/Znox 113 GM Tube 1 APPLIC TOPICAL ×2 (05:37→17:16)
[2021-03-06] MEDS: Nystatin Powder 15gm Bottle 1 APPLIC TOPICAL ×3 (05:37→20:07)
[2021-03-06 06:36] LABS: Bedside Glucose 171 mg/dL (70-110)
[2021-03-06 07:44] LABS: Absolute Lymphocyte Count 4.12 X10^3/uL (0.83-4.51); Absolute Neutrophil Count 3.7 X10^3/uL (2.0-7.7); Basophil% 1.1 % (0-1); Eosinophil# 0.61 X10^3/uL; Eosinophils% 6.6 % (0-5); Hematocrit 29.5 % (37-47); Hemoglobin 9.3 g/dL (12.0-15.0); Lymphocyte # 4.12 X10^3/ul (0.83-4.51); Lymphocyte % 44.5 % (19-41); Mean Corp Hgb Conc 31.5 g/dL (32-36); Mean Corpuscular Hgb 29.2 pg (27.0-32.0); Mean Corpuscular Volume 92.8 fL (81-99); Mean Platelet Vol. 10.6 fl (6.2-12.0); Monocyte# 0.67 X10^3/uL; Monocyte% 7.2 % (0-10); NRBC Flagged by Analyzer 0 % (0-5); Neutrophil # 3.73 X10^3/uL (2.7-7.7); Neutrophil % 40.3 % (47-70); Platelet Count 242 K/mm3 (150-450); RBC Distribution Width CV 13.5 % (11.6-14.6); RBC Distribution Width SD 45.8 fl (35.1-43.9); Red Blood Count 3.18 M/mm3 (4.2-5.4); White Blood Count 9.3 K/mm3 (4.4-11.0)
[2021-03-06 08:01] LABS: Anion Gap 3 (5-15); BUN 52 mg/dL (7-18); BUN/Creat Ratio 69.6 RATIO (10-20); Calcium,Total 8.7 mg/dL (8.5-10.1); Chloride 107 mmol/L (98-107); Creatinine, Serum 0.75 mg/dL (0.55-1.02); EST Glomerular Filtration Rate 83 mL/min (>60); Est Glom Filt Rate - Afr Amer 100 mL/min (>60); Estimated Creatinine Clearance 64.58 ml/min; Glucose 154 mg/dL (74-106); Potassium 5.1 mmol/L (3.5-5.1); Sodium Level 134 mmol/L (136-145)
[2021-03-06] MEDS: Juven (unflavored) Packet 1 PACKET PO ×2 (08:36→17:16)
[2021-03-06] MEDS: Aspirin 81 MG TAB.CHEW PO (08:37)
[2021-03-06] MEDS: Iron Polysaccharide Complex 150 MG CAPSULE PO (08:37)
--- NOTE | 2021-03-06 09:08 | PCM.PROGNOTE ---
Subjective Subjective: Patient seen and examined resting comfortably. Patient denies any new pedal complaints. Patient denies any nausea, fever, chills, chest pain, shortness of breath, cough, streaking, purulence, vomiting. Patient has questions about discharge Objective Data Objective Data Vital Signs: Vital Signs Temp Pulse Resp BP Pulse Ox 97.8 F 65 16 122/56 H 96 03/06/21 05:00 03/06/21 05:00 03/06/21 05:00 03/06/21 05:00 03/06/21 05:00 Oxygen Delivery Method Room Air Weight: 71.327 kg Body Mass Index (BMI) 26.1 Orthostatic Vital Signs Start: 02/03/21 16:30 Freq: Status: Active Protocol: Activity Type Activity Date Activity User E-Sign Co-Sign Detail Recorded Client Recorded Date Recorded By Document 02/12/21 13:38 ML [id number] 02/12/21 13:39 ML 02/12/21 13:38 Orthostatic Vitals Standing -Blood Pressure (90/60-120/80) 81/44 L -Extremity Use Right Arm -Pulse Rate (60-100) 100 Sitting -Blood Pressure (90/60-120/80) 113/62 -Extremity Use Right Arm -Pulse Rate (60-100) 80 Lying -Blood Pressure (90/60-120/80) 127/61 H -Extremity Use Right Arm -Pulse Rate (60-100) 74 Intake & Output: Intake and Output for Last 24 Hours 03/04/21 03/05/21 03/06/21 23:59 23:59 23:59 Intake Total 1020 / 1020 940 / 940 Balance 1020 / 1020 940 / 940 Lab / Micro Data Result Diagrams: 03/06/21 07:00 03/06/21 07:00 Labs: Laboratory Results - last 24 hr 03/05/21 03/05/21 03/05/21 11:03 16:21 21:10 WBC RBC Hgb Hct MCV MCH MCHC RDW Std Deviation RDW Coeff of Xin Plt Count MPV Immature Gran % (Auto) Neut % (Auto) Lymph % (Auto) Banner % (Auto) Eos % (Auto) Baso % (Auto) Absolute Neuts (auto) Absolute Lymphs (auto) Nucleated RBC % Sodium Potassium Chloride Carbon Dioxide Anion Gap BUN Creatinine Estim Creat Clear Calc Est GFR (MDRD) Af Amer Est GFR (MDRD) Non-Af BUN/Creatinine Ratio Glucose Calcium POC Glucose 214 H 289 H 253 H 03/06/21 03/06/21 03/06/21 06:12 07:00 07:00 WBC 9.3 RBC 3.18 L Hgb 9.3 L Hct 29.5 L MCV 92.8 MCH 29.2 MCHC 31.5 L RDW Std Deviation 45.8 H RDW Coeff of Xin 13.5 Plt Count 242 MPV 10.6 Immature Gran % (Auto) 0.300 Neut % (Auto) 40.3 L Lymph % (Auto) 44.5 H Banner % (Auto) 7.2 Eos % (Auto) 6.6 H Baso % (Auto) 1.1 H Absolute Neuts (auto) 3.7 Absolute Lymphs (auto) 4.12 Nucleated RBC % 0 Sodium 134 L Potassium 5.1 Chloride 107 Carbon Dioxide 24.0 Anion Gap 3 L BUN 52 H Creatinine 0.75 Estim Creat Clear Calc 64.58 Est GFR (MDRD) Af Amer 100 Est GFR (MDRD) Non-Af 83 BUN/Creatinine Ratio 69.6 H Glucose 154 H Calcium 8.7 POC Glucose 171 H Micro: Microbiology 02/18/21 15:30 Mucosa - Nose SARS-CoV-2 Antigen (Rapid) - Final 02/08/21 17:02 Interface Orders Urine Culture - Final Culture exhibits no growth. 02/06/21 15:30 Stool C. difficile DNA Amplification - Final 02/01/21 19:43 Wound Abcess - Aerobic & Anaerobic Swabs Gram Stain - Final 02/01/21 19:43 Wound Abcess - Aerobic & Anaerobic Swabs Wound Culture - Final Staphylococcus aureus 02/01/21 19:43 Wound Abcess - Aerobic & Anaerobic Swabs Anaerobic Culture - Final No anaerobic bacteria isolated. Physical Exam Const alert and oriented x3 General Appearance: cooperative HEENT normocephalic Resp normal respiratory effort Extremity normal capillary refill and no calf tenderness Extremity Narrative: no cyanosis, no calf tenderness, diminished pulses muscle wasting noted. no tenderness. Left transmetatarsal amputation General Extremity: edema; Negative for clubbing or cyanosis Peripheral Pulses: Yes posterior tibial pulses present left diminished and dorsalis pedis pulses present left diminished Skin Skin Narrative: no purulence, no erythema, no streaking, no odor, no infection. Adjacent skin is atrophic. There are sutures are intact to the left transmetatarsal amputation without gapping. Dusky development with early signs of necrosis noted to the central lateral distal most aspect along incision line without loss of warmth Ecchymosis discoloration to central plantar aspect of the left foot with fluctuation noted with serosanguineous drainage noted upon debridement with very superficial underlying ulceration. This blister only had serosanguineous drainage. No purulent drainage was expressed. The devitalized tissue was removed. mild hematogenous drainage noted on inner dressing without purulence Area of concern noted to posterior heel left foot concerning for early changes consistent with a pressure ulcer. Neuro Neuro Narrative: lack of normal epicritic sensation via light touch consistent with neuropathy Psych cooperative and affect normal Assessment & Plan Assessment/Plan (1) Type 2 diabetes mellitus with diabetic polyneuropathy: (2) Wound of left foot: (3) Abscess of left foot: (4) Blister (nonthermal), left foot, initial encounter: (5) PAD (peripheral artery disease): (6) Non-pressure chronic ulcer of other part of left foot limited to breakdown of skin: PLAN: s/p left transmetatarsal amputation with closure (DOS 02/19/2021) Diabetes with neuropathy Malnutrition suspected Deep venous thrombosis left posterior tibial vein Left foot infection resolved Other comorbidities: epilepsy, history of brain tumor, GERD, h/o c. diff Patient seen and evaluated this morning.? I reviewed and discussed her case.? She remains afebrile. No significant change in demarcation from previous visitation earlier this week. Blistered areas still seen with serous drainage noted. No signs of infection. Some signs of healing noted. Continue to pad heels well with offloading boot and ABD pads with early signs of pressure ulcer noted to left heel. The dressing is changed with Betadine wet-to-dry dressing applied. This was also secured in place with an Demetrio wrap.?Discoloration of lateral amputation flap noted. No bogginess, fluctuance, or local infection noted. This flap is now compromised and demarcation is in process. She understands it may remain viable versus tissue loss may continue resulting in the need for a different local wound care plan or further amputation. Discussed that depending on how much a demarcation happens that this may need local wound care versus further surgical debridements but we will have to wait and see. To maintain a non weightbearing status of left lower extremity.? Reviewed the importance of this with the patient. She will continue to work with physical and occupational therapy. To elevate limb at rest to reduce edema / tension on amputation site. DEMETRIO wrap applied. To prevent any rubbing at the site or pressure. Discussed making sure she has boosted in bed so as not to be rubbing on the footboard. ID on consult. They are managing her antibiotics To continue Eliquis for treatment of acute deep venous thrombosis. Medical management per Dr. Ivy is appreciated and noted.? Please do not hesitate to call with any questions.? Discharge planning in process.? [facility]. The podiatry team will continue to follow her biweekly. Sarah Lea DPM [facility] [phone]
--- NOTE | 2021-03-06 10:31 | NURSING ---
IN TO CHANGE PT DRESSING TO LEFT FOOT.
[2021-03-06 11:01] LABS: Bedside Glucose 217 mg/dL (70-110)
[2021-03-06 13:30] VITALS: PULSE 71; RESP 18; O2SAT 98
[2021-03-06 16:00] VITALS: BP 118/68; PULSE 79; RESP 16; TEMP 36.5; O2SAT 98
[2021-03-06 17:00] LABS: Bedside Glucose 159 mg/dL (70-110)
[2021-03-06] MEDS: Gabapentin 600 MG Tablet PO (20:07)
[2021-03-06 21:41] LABS: Bedside Glucose 247 mg/dL (70-110)
--- NOTE | 2021-03-06 23:01 | PCA ---
Pt declined to wash up, stating she would prefer washing in the morning. em
[2021-03-07 05:00] VITALS: BP 103/49; PULSE 67; RESP 18; TEMP 36.7; O2SAT 98
[2021-03-07] MEDS: guaiFENesin 600 MG Tablet 1200 MG PO ×2 (06:23→17:24)
[2021-03-07] MEDS: Pantoprazole Sodium 40 MG Tablet PO ×2 (06:23→17:24)
[2021-03-07] MEDS: Fluticasone Propion/Salmeterol 250-50 Inhaler 1 PUFF INHALATION ×2 (06:23→17:25)
[2021-03-07] MEDS: APIXABAN 5 MG TABLET PO ×2 (06:24→17:23)
[2021-03-07] MEDS: Loperamide 2 MG Capsule 4 MG PO ×4 (06:24→22:59)
[2021-03-07] MEDS: Gabapentin 300 MG Capsule PO ×2 (06:24→17:23)
[2021-03-07] MEDS: Menthol/Lanolin/Calamine/Znox 113 GM Tube 1 APPLIC TOPICAL ×2 (06:25→17:26)
[2021-03-07] MEDS: Nystatin Powder 15gm Bottle 1 APPLIC TOPICAL ×3 (06:25→23:00)
[2021-03-07 06:26] LABS: Bedside Glucose 162 mg/dL (70-110)
[2021-03-07] MEDS: Juven (unflavored) Packet 1 PACKET PO ×2 (08:27→17:22)
[2021-03-07] MEDS: Aspirin 81 MG TAB.CHEW PO (08:28)
[2021-03-07] MEDS: Iron Polysaccharide Complex 150 MG CAPSULE PO (08:28)
[2021-03-07 11:26] LABS: Bedside Glucose 211 mg/dL (70-110)
--- NOTE | 2021-03-07 14:48 | NURSING ---
family updated at visit. family brought in dinner for pt for mothers day.
[2021-03-07 15:01] VITALS: BP 151/67; PULSE 71; RESP 18; TEMP 36.6; O2SAT 98
[2021-03-07 16:51] LABS: Bedside Glucose 219 mg/dL (70-110)
[2021-03-07] MEDS: 0.9% Saline Lock 10 ML Syringe IV (17:20)
[2021-03-07 21:55] LABS: Bedside Glucose 183 mg/dL (70-110)
[2021-03-07 22:00] VITALS: PULSE 76; O2SAT 99
[2021-03-07] MEDS: Gabapentin 600 MG Tablet PO (23:05)
[2021-03-08 05:00] VITALS: BP 113/47; PULSE 68; RESP 14; TEMP 36.1; O2SAT 96
[2021-03-08] MEDS: guaiFENesin 600 MG Tablet 1200 MG PO ×2 (06:24→17:18)
[2021-03-08] MEDS: Gabapentin 300 MG Capsule PO ×2 (06:24→17:19)
[2021-03-08] MEDS: Fluticasone Propion/Salmeterol 250-50 Inhaler 1 PUFF INHALATION ×2 (06:24→17:20)
[2021-03-08] MEDS: Pantoprazole Sodium 40 MG Tablet PO ×2 (06:24→17:20)
[2021-03-08] MEDS: Nystatin Powder 15gm Bottle 1 APPLIC TOPICAL ×3 (06:25→20:52)
[2021-03-08] MEDS: APIXABAN 5 MG TABLET PO ×2 (06:25→17:18)
[2021-03-08] MEDS: Menthol/Lanolin/Calamine/Znox 113 GM Tube 1 APPLIC TOPICAL ×2 (06:25→17:23)
[2021-03-08] MEDS: Loperamide 2 MG Capsule 4 MG PO ×4 (06:25→20:50)
[2021-03-08 06:31] LABS: Bedside Glucose 162 mg/dL (70-110)
[2021-03-08] MEDS: Aspirin 81 MG TAB.CHEW PO (08:08)
[2021-03-08] MEDS: Iron Polysaccharide Complex 150 MG CAPSULE PO (08:09)
[2021-03-08] MEDS: Juven (unflavored) Packet 1 PACKET PO ×2 (08:09→17:17)
[2021-03-08 11:01] LABS: Bedside Glucose 224 mg/dL (70-110)
--- NOTE | 2021-03-08 14:20 | NURSING ---
wound photo: left foot
--- NOTE | 2021-03-08 14:21 | NURSING ---
wound photo: left foot
--- NOTE | 2021-03-08 14:21 | NURSING ---
wound photo: left foot
[2021-03-08 14:37] VITALS: BP 135/66; PULSE 94; RESP 16; TEMP 36.3; O2SAT 94
--- NOTE | 2021-03-08 14:44 | NURSING ---
Dr. Mota and wound nurse in today to see pt and perform dressing change.
--- NOTE | 2021-03-08 15:03 | PCM.PROGNOTE ---
Subjective Subjective: Patient was seen today for follow up on left foot. She is sitting up in wheelchair with foot elevated, she is working on the computer. Patient with no complaints. Objective Data Objective Data Vital Signs: Vital Signs Temp Pulse Resp BP Pulse Ox 97.3 F L 94 16 135/66 H 94 03/08/21 14:37 03/08/21 14:37 03/08/21 14:37 03/08/21 14:37 03/08/21 14:37 Oxygen Delivery Method Room Air Weight: 71.327 kg Body Mass Index (BMI) 26.1 Orthostatic Vital Signs Start: 02/03/21 16:30 Freq: Status: Active Protocol: Activity Type Activity Date Activity User E-Sign Co-Sign Detail Recorded Client Recorded Date Recorded By Document 02/12/21 13:38 ML [id number] 02/12/21 13:39 ML 02/12/21 13:38 Orthostatic Vitals Standing -Blood Pressure (90/60-120/80) 81/44 L -Extremity Use Right Arm -Pulse Rate (60-100) 100 Sitting -Blood Pressure (90/60-120/80) 113/62 -Extremity Use Right Arm -Pulse Rate (60-100) 80 Lying -Blood Pressure (90/60-120/80) 127/61 H -Extremity Use Right Arm -Pulse Rate (60-100) 74 Intake & Output: Intake and Output for Last 24 Hours 03/06/21 03/07/21 03/08/21 23:59 23:59 23:59 Intake Total 600 / 600 600 / 600 840 / 840 Balance 600 / 600 600 / 600 840 / 840 Lab / Micro Data Result Diagrams: 03/06/21 07:00 03/06/21 07:00 Labs: Laboratory Results - last 24 hr 03/07/21 03/07/21 03/08/21 16:41 21:35 06:18 POC Glucose 219 H 183 H 162 H 03/08/21 10:47 POC Glucose 224 H Micro: Microbiology 02/18/21 15:30 Mucosa - Nose SARS-CoV-2 Antigen (Rapid) - Final 02/08/21 17:02 Interface Orders Urine Culture - Final Culture exhibits no growth. 02/06/21 15:30 Stool C. difficile DNA Amplification - Final 02/01/21 19:43 Wound Abcess - Aerobic & Anaerobic Swabs Gram Stain - Final 02/01/21 19:43 Wound Abcess - Aerobic & Anaerobic Swabs Wound Culture - Final Staphylococcus aureus 02/01/21 19:43 Wound Abcess - Aerobic & Anaerobic Swabs Anaerobic Culture - Final No anaerobic bacteria isolated. Physical Exam Const alert, oriented x3 and no apparent distress Extremity Extremity Narrative: s/p TMA left foot - no dehiscence, no cellulitis, no maloder, no fluctuance, no crepitus. There is some dry superficial appearing necrosis to the sutured skin edges at distal TMA site which will be left intact, plantar incision site without necrosis. No evidence of acute ischemia to the left foot. No drainage, no visible abscess to the left foot or ankle. No complaints of pain to the foot or ankle - left. Assessment & Plan Assessment/Plan (1) Wound of left foot: PLAN: (1) Type 2 diabetes mellitus with diabetic polyneuropathy: (2) Wound of left foot: (3) Abscess of left foot: (4) Blister (nonthermal), left foot, initial encounter: (5) PAD (peripheral artery disease): (6) Non-pressure chronic ulcer of other part of left foot limited to breakdown of skin: PLAN: s/p left transmetatarsal amputation with closure (DOS 02/19/2021) Diabetes with neuropathy Malnutrition suspected Deep venous thrombosis left posterior tibial vein Left foot infection resolved Other comorbidities: epilepsy, history of brain tumor, GERD, h/o c. diff Foot healing, and overall stable at this time. No evidence of infection. Continue with local wound care - wet to dry with betadine soln and gauze, kerlix and clarke - change every other day. Continue to pad heels well with offloading boot and ABD pads with early signs of pressure ulcer noted to left heel - which is resolving. To maintain a non weightbearing status of left lower extremity. Reviewed the importance of this with the patient. She will continue to work with physical and occupational therapy. To elevate limb at rest to reduce edema / tension on amputation site. ID on consult. To continue Eliquis for treatment of acute deep venous thrombosis. Medical management per Dr. Ivy is appreciated and noted. Podiatry will see patient weekly - please call sooner if needed.
[2021-03-08 16:31] LABS: Bedside Glucose 240 mg/dL (70-110)
[2021-03-08] MEDS: Gabapentin 600 MG Tablet PO (20:50)
[2021-03-08 22:01] LABS: Bedside Glucose 234 mg/dL (70-110)
[2021-03-09 05:00] VITALS: BP 125/60; PULSE 71; RESP 16; TEMP 36.8; O2SAT 95
[2021-03-09] MEDS: guaiFENesin 600 MG Tablet 1200 MG PO ×2 (05:55→17:42)
[2021-03-09] MEDS: Gabapentin 300 MG Capsule PO ×2 (05:55→17:42)
[2021-03-09] MEDS: Loperamide 2 MG Capsule 4 MG PO ×4 (05:55→21:57)
[2021-03-09] MEDS: Pantoprazole Sodium 40 MG Tablet PO ×2 (05:55→17:42)
[2021-03-09] MEDS: APIXABAN 5 MG TABLET PO ×2 (05:55→17:41)
[2021-03-09] MEDS: Menthol/Lanolin/Calamine/Znox 113 GM Tube 1 APPLIC TOPICAL ×2 (05:56→17:43)
[2021-03-09] MEDS: Nystatin Powder 15gm Bottle 1 APPLIC TOPICAL ×3 (05:56→21:58)
[2021-03-09] MEDS: Fluticasone Propion/Salmeterol 250-50 Inhaler 1 PUFF INHALATION ×2 (05:56→17:39)
[2021-03-09] MEDS: 0.9% Saline Lock 10 ML Syringe IV ×2 (05:59→17:45)
[2021-03-09 06:31] LABS: Bedside Glucose 160 mg/dL (70-110)
[2021-03-09] MEDS: Iron Polysaccharide Complex 150 MG CAPSULE PO (08:56)
[2021-03-09] MEDS: Juven (unflavored) Packet 1 PACKET PO ×2 (08:56→17:38)
[2021-03-09] MEDS: Aspirin 81 MG TAB.CHEW PO (08:56)
[2021-03-09 11:06] LABS: Bedside Glucose 245 mg/dL (70-110)
[2021-03-09 14:54] VITALS: BP 120/61; PULSE 67; RESP 20; TEMP 36.1; O2SAT 98
--- NOTE | 2021-03-09 14:59 | NURSING ---
pt updated family
[2021-03-09 16:35] LABS: Bedside Glucose 179 mg/dL (70-110)
[2021-03-09 21:46] LABS: Bedside Glucose 162 mg/dL (70-110)
[2021-03-09 21:57] VITALS: PULSE 74; RESP 16; O2SAT 97
[2021-03-09] MEDS: Gabapentin 600 MG Tablet PO (21:57)
[2021-03-10 05:00] VITALS: BP 127/63; PULSE 66; RESP 16; TEMP 36.2; O2SAT 97
[2021-03-10] MEDS: APIXABAN 5 MG TABLET PO ×2 (06:16→17:19)
[2021-03-10] MEDS: Loperamide 2 MG Capsule 4 MG PO ×4 (06:16→21:25)
[2021-03-10] MEDS: guaiFENesin 600 MG Tablet 1200 MG PO ×2 (06:16→17:19)
[2021-03-10] MEDS: Pantoprazole Sodium 40 MG Tablet PO ×2 (06:16→17:20)
[2021-03-10] MEDS: Gabapentin 300 MG Capsule PO ×2 (06:16→17:21)
[2021-03-10] MEDS: Menthol/Lanolin/Calamine/Znox 113 GM Tube 1 APPLIC TOPICAL ×2 (06:18→17:30)
[2021-03-10] MEDS: Nystatin Powder 15gm Bottle 1 APPLIC TOPICAL ×3 (06:18→21:25)
[2021-03-10] MEDS: Fluticasone Propion/Salmeterol 250-50 Inhaler 1 PUFF INHALATION ×2 (06:18→17:21)
[2021-03-10] MEDS: 0.9% Saline Lock 10 ML Syringe IV ×2 (06:20→17:23)
[2021-03-10 06:46] LABS: Bedside Glucose 137 mg/dL (70-110)
[2021-03-10] MEDS: Iron Polysaccharide Complex 150 MG CAPSULE PO (08:45)
[2021-03-10] MEDS: Juven (unflavored) Packet 1 PACKET PO ×2 (08:45→17:18)
[2021-03-10] MEDS: Aspirin 81 MG TAB.CHEW PO (08:45)
[2021-03-10 11:06] LABS: Bedside Glucose 149 mg/dL (70-110)
--- NOTE | 2021-03-10 12:44 | CASEMGMT ---
Social Work Followed up with pt about wound Dr. report. pt stated no new information given on time frame or surgery, etc. Explained WVM denied pt as she requires too much nursing care at this time, but would be interested in reviewing clinical information closer to [place]. Encouraged pt to search for other SNFs for SW to refer to. Pt requested [facility]. Referral made. Will continue to follow. Philly Ace, SINGLE SPINDLE SCREW MACHINE OPERATOR PRODUCT SAFETY ADMINISTRATOR
--- NOTE | 2021-03-10 14:23 | NURSING ---
wound photo: left foot
--- NOTE | 2021-03-10 14:23 | NURSING ---
wound photo: left foot
[2021-03-10 14:55] VITALS: BP 144/68; PULSE 65; RESP 18; TEMP 36.6; O2SAT 98
--- NOTE | 2021-03-10 16:17 | NURSING ---
Wound nurse changed wound dressing today, said she would be back on monday to change it again
[2021-03-10 16:35] LABS: Bedside Glucose 109 mg/dL (70-110)
[2021-03-10] MEDS: Gabapentin 600 MG Tablet PO (21:25)
[2021-03-11 00:06] LABS: Bedside Glucose 147 mg/dL (70-110)
[2021-03-11] MEDS: APIXABAN 5 MG TABLET PO ×2 (05:49→17:13)
[2021-03-11] MEDS: Loperamide 2 MG Capsule 4 MG PO ×4 (05:49→22:30)
[2021-03-11] MEDS: guaiFENesin 600 MG Tablet 1200 MG PO ×2 (05:49→17:13)
[2021-03-11] MEDS: Pantoprazole Sodium 40 MG Tablet PO ×2 (05:50→17:13)
[2021-03-11] MEDS: Gabapentin 300 MG Capsule PO ×2 (05:50→17:13)
[2021-03-11] MEDS: Fluticasone Propion/Salmeterol 250-50 Inhaler 1 PUFF INHALATION ×2 (05:50→17:14)
[2021-03-11] MEDS: Menthol/Lanolin/Calamine/Znox 113 GM Tube 1 APPLIC TOPICAL ×2 (05:54→17:22)
[2021-03-11] MEDS: Nystatin Powder 15gm Bottle 1 APPLIC TOPICAL ×3 (05:55→22:30)
[2021-03-11 05:56] VITALS: BP 158/53; PULSE 61; RESP 16; TEMP 36.6; O2SAT 94
[2021-03-11 06:41] LABS: Bedside Glucose 158 mg/dL (70-110)
[2021-03-11] MEDS: Iron Polysaccharide Complex 150 MG CAPSULE PO (08:27)
[2021-03-11] MEDS: Juven (unflavored) Packet 1 PACKET PO ×2 (08:27→17:12)
[2021-03-11] MEDS: Aspirin 81 MG TAB.CHEW PO (08:28)
[2021-03-11] MEDS: Acetaminophen 500 MG Tablet PO (08:33)
[2021-03-11 10:51] LABS: Bedside Glucose 173 mg/dL (70-110)
--- NOTE | 2021-03-11 10:54 | NURSING ---
PT COMPLAINING OF BEING REALLY TIRED AND A HEADACHE. ASKED PT IF SHE HAS BEEN STAYING UP LATE,PT STATED YES TO DO MY HOME WORK FOR SCHOOL AND NANCY ALMOST DONE. THIS NURSE EDUCATED PT ON GETTING ENOUGH SLEEP WHICH ALSO HELPS WITH THE HEALING PROCESS. PT STATED SHE UNDER STOOD AND AGREED.
[2021-03-11] MEDS: 0.9% Saline Lock 10 ML Syringe IV (13:40)
--- NOTE | 2021-03-11 14:19 | NURSING ---
FAMILY UP DATED BY PT.
[2021-03-11 14:28] VITALS: BP 124/63; PULSE 80; RESP 16; TEMP 36.3; O2SAT 94
[2021-03-11 16:10] LABS: Bedside Glucose 194 mg/dL (70-110)
[2021-03-11 21:41] LABS: Bedside Glucose 199 mg/dL (70-110)
[2021-03-11] MEDS: Gabapentin 600 MG Tablet PO (22:30)
--- NOTE | 2021-03-11 22:30 | NURSING ---
In patient's room to administer HS meds. Pt on computer completing a test for school and does not wish to have assessment completed at this time. Instructed to call for this nurse after testing complete to perform assessment. She verbalizes understanding. Broth given to pt per request.
[2021-03-12 06:26] LABS: Bedside Glucose 133 mg/dL (70-110)
[2021-03-12] MEDS: Pantoprazole Sodium 40 MG Tablet PO ×2 (06:28→17:06)
[2021-03-12] MEDS: APIXABAN 5 MG TABLET PO ×2 (06:28→17:07)
[2021-03-12] MEDS: guaiFENesin 600 MG Tablet 1200 MG PO ×2 (06:29→17:05)
[2021-03-12] MEDS: Fluticasone Propion/Salmeterol 250-50 Inhaler 1 PUFF INHALATION ×2 (06:29→17:24)
[2021-03-12] MEDS: Loperamide 2 MG Capsule 4 MG PO ×4 (06:29→22:45)
[2021-03-12] MEDS: Gabapentin 300 MG Capsule PO ×2 (06:29→17:06)
[2021-03-12] MEDS: Nystatin Powder 15gm Bottle 1 APPLIC TOPICAL ×3 (06:30→22:45)
[2021-03-12] MEDS: Menthol/Lanolin/Calamine/Znox 113 GM Tube 1 APPLIC TOPICAL ×2 (06:31→17:09)
[2021-03-12 06:57] VITALS: BP 132/59; PULSE 70; RESP 14; TEMP 36.3; O2SAT 98
[2021-03-12] MEDS: Aspirin 81 MG TAB.CHEW PO (09:04)
[2021-03-12] MEDS: Juven (unflavored) Packet 1 PACKET PO ×2 (09:04→17:05)
[2021-03-12] MEDS: Iron Polysaccharide Complex 150 MG CAPSULE PO (09:04)
[2021-03-12 11:00] VITALS: PULSE 70; RESP 16
[2021-03-12 11:10] LABS: Bedside Glucose 215 mg/dL (70-110)
[2021-03-12 15:10] VITALS: BP 147/73; PULSE 79; RESP 20; TEMP 36.1; O2SAT 100
[2021-03-12 16:41] LABS: Bedside Glucose 164 mg/dL (70-110)
[2021-03-12] MEDS: 0.9% Saline Lock 10 ML Syringe IV (17:09)
[2021-03-12 21:50] LABS: Bedside Glucose 225 mg/dL (70-110)
[2021-03-12] MEDS: Gabapentin 600 MG Tablet PO (22:45)
[2021-03-13 05:00] VITALS: BP 111/60; PULSE 71; RESP 18; O2SAT 98
[2021-03-13] MEDS: Pantoprazole Sodium 40 MG Tablet PO ×2 (06:03→18:10)
[2021-03-13] MEDS: Gabapentin 300 MG Capsule PO ×2 (06:03→18:09)
[2021-03-13] MEDS: guaiFENesin 600 MG Tablet 1200 MG PO ×2 (06:03→18:09)
[2021-03-13] MEDS: Loperamide 2 MG Capsule 4 MG PO ×4 (06:03→21:46)
[2021-03-13] MEDS: Menthol/Lanolin/Calamine/Znox 113 GM Tube 1 APPLIC TOPICAL ×2 (06:04→18:12)
[2021-03-13] MEDS: APIXABAN 5 MG TABLET PO ×2 (06:04→18:09)
[2021-03-13] MEDS: Nystatin Powder 15gm Bottle 1 APPLIC TOPICAL ×3 (06:04→21:46)
[2021-03-13] MEDS: Fluticasone Propion/Salmeterol 250-50 Inhaler 1 PUFF INHALATION ×2 (06:04→18:08)
[2021-03-13 06:30] LABS: Bedside Glucose 141 mg/dL (70-110)
[2021-03-13] MEDS: Juven (unflavored) Packet 1 PACKET PO ×2 (08:30→18:08)
[2021-03-13] MEDS: Iron Polysaccharide Complex 150 MG CAPSULE PO (08:32)
[2021-03-13] MEDS: Aspirin 81 MG TAB.CHEW PO (08:33)
[2021-03-13 11:06] LABS: Bedside Glucose 191 mg/dL (70-110)
[2021-03-13 14:19] VITALS: BP 144/72; PULSE 76; RESP 18; TEMP 36.6; O2SAT 97
[2021-03-13 16:35] LABS: Bedside Glucose 154 mg/dL (70-110)
[2021-03-13] MEDS: 0.9 % NaCl (Sterile) Posiflush 10 mL IV (18:18)
[2021-03-13 21:31] LABS: Bedside Glucose 262 mg/dL (70-110)
[2021-03-13] MEDS: Gabapentin 600 MG Tablet PO (21:46)
[2021-03-14 06:21] LABS: Bedside Glucose 123 mg/dL (70-110)
[2021-03-14] MEDS: guaiFENesin 600 MG Tablet 1200 MG PO ×2 (06:58→17:03)
[2021-03-14] MEDS: Gabapentin 300 MG Capsule PO ×2 (06:58→17:02)
[2021-03-14] MEDS: Pantoprazole Sodium 40 MG Tablet PO ×2 (06:58→17:02)
[2021-03-14] MEDS: Loperamide 2 MG Capsule 4 MG PO ×4 (06:59→22:00)
[2021-03-14] MEDS: APIXABAN 5 MG TABLET PO ×2 (06:59→17:02)
[2021-03-14] MEDS: Menthol/Lanolin/Calamine/Znox 113 GM Tube 1 APPLIC TOPICAL ×2 (06:59→17:05)
[2021-03-14] MEDS: Fluticasone Propion/Salmeterol 250-50 Inhaler 1 PUFF INHALATION ×2 (06:59→17:00)
[2021-03-14] MEDS: 0.9% Saline Lock 10 ML Syringe IV (07:00)
[2021-03-14] MEDS: Nystatin Powder 15gm Bottle 1 APPLIC TOPICAL ×3 (07:00→22:04)
[2021-03-14 07:06] VITALS: BP 99/60; PULSE 66; RESP 18; TEMP 36.6; O2SAT 99
[2021-03-14] MEDS: Iron Polysaccharide Complex 150 MG CAPSULE PO (08:28)
[2021-03-14] MEDS: Aspirin 81 MG TAB.CHEW PO (08:28)
[2021-03-14] MEDS: Juven (unflavored) Packet 1 PACKET PO ×2 (08:28→17:00)
[2021-03-14 10:36] LABS: Bedside Glucose 224 mg/dL (70-110)
--- NOTE | 2021-03-14 11:03 | NURSING ---
Pt c/o of burning with urination. Dr. Ivy updated new order for Urinalysis and culture entered.
[2021-03-14 14:05] VITALS: BP 108/50; PULSE 72; RESP 14; TEMP 36.3; O2SAT 98
[2021-03-14 14:06] LABS: Mucous, Urine 0 SEEN /hpf (<or=2+)
[2021-03-14 14:10] LABS: Color, Urine Yellow (Yellow); Glucose, Dipstick Normal (Normal); Ketone-Dipstick Negative (Negative); Leukocyte Esterase-Dipstick 500 /ul (Negative); Nitrite-Dipstick Positive (Negative); Occult Blood-Urine 50 /ul (Negative); Protein-Dipstick 15 mg/dl (Negative); Urine Bilirubin Dipstick Negative (Negative); Urine Clarity Cloudy (Clear); Urine Urobilinogen Normal (Normal)
[2021-03-14 14:18] LABS: Bacteria 2+ /hpf (None Seen); Red Blood Cells-Urine 0-5 SEEN /hpf (0-5); Squamous Epithelial Cells - UA 0-5 SEEN /hpf (5-10); White Blood Cells 25-50 SEEN /hpf (0-5)
[2021-03-14 16:25] LABS: Bedside Glucose 188 mg/dL (70-110)
[2021-03-14] MEDS: 0.9 % NaCl (Sterile) Posiflush 10 mL IV (16:59)
--- NOTE | 2021-03-14 21:41 | NURSING ---
Updated Dr. Ivy on urine results, culture pending. Order for cipro 250mg BID x7 days. First dose tonight.
[2021-03-14 21:55] LABS: Bedside Glucose 160 mg/dL (70-110)
[2021-03-14] MEDS: Gabapentin 600 MG Tablet PO (21:59)
[2021-03-14] MEDS: Ciprofloxacin 250 MG Tablet PO (22:07)
[2021-03-15 05:00] VITALS: BP 135/60; PULSE 63; RESP 16; TEMP 36.2; O2SAT 95
[2021-03-15] MEDS: Nystatin Powder 15gm Bottle 1 APPLIC TOPICAL ×2 (05:43→21:46)
[2021-03-15] MEDS: Fluticasone Propion/Salmeterol 250-50 Inhaler 1 PUFF INHALATION ×2 (05:43→18:29)
[2021-03-15] MEDS: Ciprofloxacin 250 MG Tablet PO ×2 (05:43→18:26)
[2021-03-15] MEDS: guaiFENesin 600 MG Tablet 1200 MG PO ×2 (05:43→18:27)
[2021-03-15] MEDS: Pantoprazole Sodium 40 MG Tablet PO ×2 (05:43→18:28)
[2021-03-15] MEDS: Loperamide 2 MG Capsule 4 MG PO ×4 (05:43→21:45)
[2021-03-15] MEDS: APIXABAN 5 MG TABLET PO ×2 (05:43→18:26)
[2021-03-15] MEDS: Gabapentin 300 MG Capsule PO ×2 (05:43→18:28)
[2021-03-15] MEDS: Menthol/Lanolin/Calamine/Znox 113 GM Tube 1 APPLIC TOPICAL ×2 (05:44→18:33)
[2021-03-15 06:21] LABS: Bedside Glucose 161 mg/dL (70-110)
[2021-03-15] MEDS: Aspirin 81 MG TAB.CHEW PO (07:55)
[2021-03-15] MEDS: Iron Polysaccharide Complex 150 MG CAPSULE PO (07:55)
[2021-03-15] MEDS: Juven (unflavored) Packet 1 PACKET PO ×2 (07:55→18:24)
--- NOTE | 2021-03-15 08:52 | NURSING ---
wound photo: left foot
--- NOTE | 2021-03-15 08:53 | NURSING ---
wound photo: left foot
--- NOTE | 2021-03-15 08:53 | NURSING ---
wound photo: left foot
[2021-03-15] MEDS: 0.9% Saline Lock 10 ML Syringe IV ×2 (09:06→11:44)
[2021-03-15 09:21] LABS: Absolute Lymphocyte Count 3.12 X10^3/uL (0.83-4.51); Absolute Neutrophil Count 4.7 X10^3/uL (2.0-7.7); Basophil# 0.09 X10^3/uL; Eosinophil# 0.55 X10^3/uL; Eosinophils% 6.1 % (0-5); Hematocrit 32.7 % (37-47); Hemoglobin 10.3 g/dL (12.0-15.0); Lymphocyte # 3.12 X10^3/ul (0.83-4.51); Lymphocyte % 34.6 % (19-41); Mean Corp Hgb Conc 31.5 g/dL (32-36); Mean Corpuscular Hgb 29.7 pg (27.0-32.0); Mean Corpuscular Volume 94.2 fL (81-99); Monocyte# 0.54 X10^3/uL; NRBC Flagged by Analyzer 0 % (0-5); Neutrophil # 4.69 X10^3/uL (2.7-7.7); Platelet Count 267 K/mm3 (150-450); RBC Distribution Width SD 48.4 fl (35.1-43.9); Red Blood Count 3.47 M/mm3 (4.2-5.4)
--- NOTE | 2021-03-15 09:42 | NURSING ---
WANDARN/WOUND NURSE IN TO CHANGE PT DRESSING TO LT FOOT.
[2021-03-15 09:49] LABS: Anion Gap 4 (5-15); BUN 43 mg/dL (7-18); Calcium,Total 8.8 mg/dL (8.5-10.1); Chloride 109 mmol/L (98-107); Creatinine, Serum 0.84 mg/dL (0.55-1.02); EST Glomerular Filtration Rate 72 mL/min (>60); Est Glom Filt Rate - Afr Amer 87 mL/min (>60); Estimated Creatinine Clearance 57.66 ml/min; Glucose 228 mg/dL (74-106); Potassium 4.5 mmol/L (3.5-5.1); Sodium Level 137 mmol/L (136-145)
[2021-03-15 11:20] LABS: Bedside Glucose 166 mg/dL (70-110)
--- NOTE | 2021-03-15 13:10 | CASEMGMT ---
Social Work Spoke with Dr. Finn to inquire about pt's wound needs and tx plan for DC. explained pt is healing well, no sx needed at this time, dressing changes to every other day, and pt is stable. Pt will continue with [facility] for several months. Thanked for information. Philly Ace, OVERCOILER QUICK SKETCH ARTIST
[2021-03-15 15:09] VITALS: BP 132/72; PULSE 64; RESP 18; TEMP 36.2; O2SAT 97
--- NOTE | 2021-03-15 15:47 | NURSING ---
dr warner office notified regarding pt discharge plan, left message with principal secretary to have Dr Warner call LETY Fraga regarding what her plans are for pt.
--- NOTE | 2021-03-15 16:58 | CHAPLAIN ---
Type of Pastoral Visit ___ Initial Visit _x__ Follow-up Visit ___ On-call Visit ___ General Patient Visit ___ Spiritual Assessment ___ Family Conference ___ Bereavement ___ Rapid Response ___ Code Blue ___ Other (describe below) Pastoral Care Referral From _x__ Patient ___ Family ___ Nurse ___ Physician ___ Special Delivery Messenger ___ Scrubber System Attendant ___ Other (describe below) Sacrament/Intervention _x__ Active listening ___ Anointing ___ Mu-Ism ___ Bereavement ___ Communion ___ Dang exploration ___ ___ Life review ___ Prayer ___ Reconciliation ___ Sacrament of Sick ___ Supportive presence ___ Wedding ___ Other (describe below) Pastoral Comments
[2021-03-15 17:01] LABS: Bedside Glucose 168 mg/dL (70-110)
--- NOTE | 2021-03-15 17:14 | PCM.PROGNOTE ---
Subjective Subjective This pleasant 66 year old female patient with multiple comorbidities was seen today for follow up on left foot. She had a staged transmetatarsal amputation with flap closure performed on 02-19-2021. She is sitting up in chair with foot elevated eating dinner. She denies foot pain, fever, chill, nausea, vomiting, calf pain. Her family is bedside. I was contacted earlier today by social work team who would like to confirm if she is stable enough to be considered for transition out of the hospital transitional care setting and if so to confirm both dressing and discharge surgical recommendations. Objective Data Objective Data Vital Signs: Vital Signs Temp Pulse Resp BP Pulse Ox 97.2 F L 64 18 132/72 H 97 03/15/21 15:09 03/15/21 15:09 03/15/21 15:09 03/15/21 15:09 03/15/21 15:09 Oxygen Delivery Method Room Air Weight: 73.482 kg Body Mass Index (BMI) 26.1 Orthostatic Vital Signs Start: 02/03/21 16:30 Freq: Status: Active Protocol: Activity Type Activity Date Activity User E-Sign Co-Sign Detail Recorded Client Recorded Date Recorded By Document 02/12/21 13:38 ML [id number] 02/12/21 13:39 ML 02/12/21 13:38 Orthostatic Vitals Standing -Blood Pressure (90/60-120/80) 81/44 L -Extremity Use Right Arm -Pulse Rate (60-100) 100 Sitting -Blood Pressure (90/60-120/80) 113/62 -Extremity Use Right Arm -Pulse Rate (60-100) 80 Lying -Blood Pressure (90/60-120/80) 127/61 H -Extremity Use Right Arm -Pulse Rate (60-100) 74 Intake & Output: Intake and Output for Last 24 Hours 03/13/21 03/14/21 03/15/21 23:59 23:59 23:59 Intake Total 1200 / 1200 1340 / 1340 480 / 480 Balance 1200 / 1200 1340 / 1340 480 / 480 Lab / Micro Data Result Diagrams: 03/15/21 09:10 03/15/21 09:10 Labs: Laboratory Results - last 24 hr 03/14/21 03/15/21 03/15/21 21:49 06:13 09:10 WBC 9.0 RBC 3.47 L Hgb 10.3 L Hct 32.7 L MCV 94.2 MCH 29.7 MCHC 31.5 L RDW Std Deviation 48.4 H RDW Coeff of Xin 14.0 Plt Count 267 MPV 10.0 Immature Gran % (Auto) 0.300 Neut % (Auto) 52.0 Lymph % (Auto) 34.6 Hughes % (Auto) 6.0 Eos % (Auto) 6.1 H Baso % (Auto) 1.0 Absolute Neuts (auto) 4.7 Absolute Lymphs (auto) 3.12 Nucleated RBC % 0 Sodium Potassium Chloride Carbon Dioxide Anion Gap BUN Creatinine Estim Creat Clear Calc Est GFR (MDRD) Af Amer Est GFR (MDRD) Non-Af BUN/Creatinine Ratio Glucose Calcium POC Glucose 160 H 161 H 03/15/21 03/15/21 03/15/21 09:10 11:12 16:49 WBC RBC Hgb Hct MCV MCH MCHC RDW Std Deviation RDW Coeff of Xin Plt Count MPV Immature Gran % (Auto) Neut % (Auto) Lymph % (Auto) Hughes % (Auto) Eos % (Auto) Baso % (Auto) Absolute Neuts (auto) Absolute Lymphs (auto) Nucleated RBC % Sodium 137 Potassium 4.5 Chloride 109 H Carbon Dioxide 24.0 Anion Gap 4 L BUN 43 H Creatinine 0.84 Estim Creat Clear Calc 57.66 Est GFR (MDRD) Af Amer 87 Est GFR (MDRD) Non-Af 72 BUN/Creatinine Ratio 51.0 H Glucose 228 H Calcium 8.8 POC Glucose 166 H 168 H Micro: Microbiology 03/14/21 13:50 Urine Catheter - Catheter Urine Culture - Preliminary GNR lactose communication manager 02/18/21 15:30 Mucosa - Nose SARS-CoV-2 Antigen (Rapid) - Final 02/08/21 17:02 Interface Orders Urine Culture - Final Culture exhibits no growth. 02/06/21 15:30 Stool C. difficile DNA Amplification - Final 02/01/21 19:43 Wound Abcess - Aerobic & Anaerobic Swabs Gram Stain - Final 02/01/21 19:43 Wound Abcess - Aerobic & Anaerobic Swabs Wound Culture - Final Staphylococcus aureus 02/01/21 19:43 Wound Abcess - Aerobic & Anaerobic Swabs Anaerobic Culture - Final No anaerobic bacteria isolated. Physical Exam Const alert, oriented x3 and no apparent distress General Appearance: cooperative HEENT normocephalic Extremity normal capillary refill and no calf tenderness Extremity Narrative: Negative Faith and Mchugh sign left Left transmetatarsal amputation Compartments of left lower extremity remain soft to palpate General Extremity: edema; Negative for clubbing or cyanosis Skin Skin Narrative: no purulence, no erythema, no streaking, no odor, no infection. Adjacent skin is atrophic. There are sutures are intact to the left transmetatarsal amputation without gapping. eschar stabilization lateral plantar aspect of the left foot without fluctuation noted with reduced serosanguineous drainage. The prior blister site is now stable, well adhered, and dry. Mild strikethrough on inner bandage only. Neuro Neuro Narrative: lack of normal epicritic sensation via light touch consistent with neuropathy Psych cooperative and affect normal Assessment & Plan Assessment/Plan (1) Wound of left foot: PLAN: (1) Type 2 diabetes mellitus with diabetic polyneuropathy: (2) Wound of left foot: (3) Abscess of left foot: (4) Blister (nonthermal), left foot, initial encounter: (5) PAD (peripheral artery disease): (6) Non-pressure chronic ulcer of other part of left foot limited to breakdown of skin: PLAN: s/p left transmetatarsal amputation with closure (DOS 02/19/2021) -- stable and continuing to demarcate Diabetes with neuropathy Malnutrition suspected Deep venous thrombosis left posterior tibial vein Left foot infection resolved Other comorbidities: epilepsy, history of brain tumor, GERD, h/o c. diff Foot healing, and overall stable at this time. No evidence of infection. Continue with local wound care - wet to dry with betadine solution and gauze, kerlix and clarke - change every other day. Continue to pad heels well with offloading boot and ABD pads with early signs of pressure ulcer previously noted to left heel (resolving well). To maintain a non weightbearing status of left lower extremity. Reviewed the importance of this with the patient. She will continue to work with physical and occupational therapy. It is okay to touchdown on the heel only if needed for transfers on occasion. To elevate limb at rest to reduce edema / tension on amputation site. ID on consult and appreciated. She has completed a course of antibiotics for her foot (meropenem and linezolid). It is noted she is now on antibiotics for urinary tract infection (Cipro). It is noted she also has a history of C. difficile and will follow through with a vancomycin oral taper per infectious disease specialist, Dr. Iqbal. To continue Eliquis for treatment of acute deep venous thrombosis. Medical management per Dr. Ivy is appreciated and noted. To continue with nutritional supplementation to optimize healing; Alfredo. Podiatry will see patient weekly while in the transitional care unit. It is okay to discharge and transfer from a surgical standpoint. Discharge recommendations will be placed in the discharge document. To follow-up with Dr. Finn within 1 week of discharge in which suture removal and continued wound care treatment will be implemented at the wound healing center. Please not hesitate to call if you have any questions. Stacie Finn DPM, [facility] [phone]
[2021-03-15] MEDS: Gabapentin 600 MG Tablet PO (21:45)
[2021-03-15 21:46] LABS: Bedside Glucose 191 mg/dL (70-110)
[2021-03-16 05:00] VITALS: BP 103/52; PULSE 63; RESP 18; TEMP 36.6; O2SAT 63
[2021-03-16] MEDS: guaiFENesin 600 MG Tablet 1200 MG PO ×2 (05:25→17:06)
[2021-03-16] MEDS: Pantoprazole Sodium 40 MG Tablet PO ×2 (05:25→17:06)
[2021-03-16] MEDS: Gabapentin 300 MG Capsule PO ×2 (05:25→17:06)
[2021-03-16] MEDS: Loperamide 2 MG Capsule 4 MG PO ×4 (05:25→20:40)
[2021-03-16] MEDS: Ciprofloxacin 250 MG Tablet PO ×2 (05:25→17:05)
[2021-03-16] MEDS: Fluticasone Propion/Salmeterol 250-50 Inhaler 1 PUFF INHALATION ×2 (05:25→17:04)
[2021-03-16] MEDS: APIXABAN 5 MG TABLET PO ×2 (05:25→17:05)
[2021-03-16] MEDS: Menthol/Lanolin/Calamine/Znox 113 GM Tube 1 APPLIC TOPICAL ×2 (05:26→17:13)
[2021-03-16] MEDS: Nystatin Powder 15gm Bottle 1 APPLIC TOPICAL ×3 (05:27→20:40)
[2021-03-16 06:35] LABS: Bedside Glucose 151 mg/dL (70-110)
[2021-03-16] MEDS: Juven (unflavored) Packet 1 PACKET PO ×2 (08:45→17:03)
[2021-03-16] MEDS: Aspirin 81 MG TAB.CHEW PO (08:45)
[2021-03-16] MEDS: Iron Polysaccharide Complex 150 MG CAPSULE PO (08:45)
--- NOTE | 2021-03-16 09:03 | NURSING ---
PT IN PRECAUTIONS FOR ESBL IN URINE. ALL CARE GIVEN IN ROOM.
--- NOTE | 2021-03-16 09:15 | NURSING ---
PT VERY UPSET AND CRYING STATING SHE IS DONE FIGHTING AND DONT WANT ANY VISITORS OR THERAPY AFTER PIKE RESULTS OF HER URINE CULTURE. THIS NURSE DID SOME ONE ON ONE WITH PT AND DAUGHTER UPDATED. RN AWARE
[2021-03-16 11:01] LABS: Bedside Glucose 186 mg/dL (70-110)
[2021-03-16] MEDS: 0.9% Saline Lock 10 ML Syringe IV (11:38)
[2021-03-16] MEDS: Ondansetron ODT 4 MG Tablet PO (11:44)
[2021-03-16 14:21] VITALS: BP 144/64; PULSE 69; RESP 16; TEMP 36.3; O2SAT 98
--- NOTE | 2021-03-16 16:25 | CHAPLAIN ---
Type of Pastoral Visit ___ Initial Visit _x__ Follow-up Visit ___ On-call Visit ___ General Patient Visit ___ Spiritual Assessment ___ Family Conference ___ Bereavement ___ Rapid Response ___ Code Blue ___ Other (describe below) Pastoral Care Referral From ___ Patient ___ Family _x__ Nurse ___ Physician ___ Photography And Prints Curator ___ Real Estate Representative ___ Other (describe below) Sacrament/Intervention _x__ Active listening ___ Anointing ___ Gnosticist ___ Bereavement ___ Communion _x__ Dang exploration ___ ___ Life review _x__ Prayer ___ Reconciliation ___ Sacrament of Sick _x__ Supportive presence ___ Wedding ___ Other (describe below) Pastoral Comments MACHINIST OUTSIDE asked for visit to this patient due to news of disappointment for pt earlier today; pt admits being upset and is tearful during this conversation; pt is also comforted by reminders of scripture and her dang in God; EV staff also in room and making the pt laugh and be reminded of Monday School songs; PT came to give therapy and also encouraging; prayer given
[2021-03-16 16:35] LABS: Bedside Glucose 146 mg/dL (70-110)
[2021-03-16] MEDS: Gabapentin 600 MG Tablet PO (20:40)
[2021-03-16 21:36] LABS: Bedside Glucose 242 mg/dL (70-110)
[2021-03-17 05:00] VITALS: BP 147/82; PULSE 68; RESP 18; TEMP 37.1; O2SAT 98
[2021-03-17] MEDS: Ciprofloxacin 250 MG Tablet PO ×2 (07:00→17:29)
[2021-03-17] MEDS: Loperamide 2 MG Capsule 4 MG PO ×4 (07:00→20:42)
[2021-03-17] MEDS: guaiFENesin 600 MG Tablet 1200 MG PO ×2 (07:00→17:30)
[2021-03-17] MEDS: Fluticasone Propion/Salmeterol 250-50 Inhaler 1 PUFF INHALATION ×2 (07:00→17:34)
[2021-03-17] MEDS: Pantoprazole Sodium 40 MG Tablet PO ×2 (07:00→17:31)
[2021-03-17] MEDS: APIXABAN 5 MG TABLET PO ×2 (07:00→17:30)
[2021-03-17] MEDS: Nystatin Powder 15gm Bottle 1 APPLIC TOPICAL ×2 (07:01→13:40)
[2021-03-17] MEDS: Gabapentin 300 MG Capsule PO ×2 (07:01→17:29)
[2021-03-17] MEDS: Menthol/Lanolin/Calamine/Znox 113 GM Tube 1 APPLIC TOPICAL ×2 (07:01→17:31)
[2021-03-17] MEDS: Aspirin 81 MG TAB.CHEW PO (08:18)
[2021-03-17] MEDS: Iron Polysaccharide Complex 150 MG CAPSULE PO (08:18)
[2021-03-17] MEDS: Juven (unflavored) Packet 1 PACKET PO ×2 (08:20→17:29)
[2021-03-17 11:36] LABS: Bedside Glucose 159 mg/dL (70-110)
[2021-03-17 11:37] LABS: Bedside Glucose 197 mg/dL (70-110)
--- NOTE | 2021-03-17 13:05 | CASEMGMT ---
Social Work Spoke with pt on DC plans. Pt has new infection. Discussed setting DC date once infection clears. Explained [facility] accepted pt. Reiterated any SNF would be private pay and IDT continues to recommend SNF for wound care and medical care. Reiterated pt would be private pay room and board and part B Medicare for therapies. Pt understands the Medicare skilled days and want to ensure those are used wisely. Pt explained is having second thoughts about paying for pt to go to a SNF and him moving to [place] in town. Provided supportive listening and emotional support. Explained pt would not be able to qualify for Medicaid since she is and is well over asset limit. Pt expressed understanding. Offered to have discussion with pt's needs to , but pt stated he is just going to tell SW what he thinks this worker wants to hear. Explained SW is here to assist. Will update [facility] and get pricing, and ensure [facility] cannot accept pt, per pt request. SW to continue to follow. Philly Ace, FINANCIAL SERVICES PROFESSIONAL AUDIT TECH
[2021-03-17 14:21] VITALS: BP 145/83; PULSE 68; RESP 20; TEMP 37.1; O2SAT 98
[2021-03-17 16:46] LABS: Bedside Glucose 213 mg/dL (70-110)
[2021-03-17] MEDS: 0.9% Saline Lock 10 ML Syringe IV (17:36)
[2021-03-17] MEDS: Gabapentin 600 MG Tablet PO (20:42)
[2021-03-17 21:26] LABS: Bedside Glucose 244 mg/dL (70-110)
[2021-03-18] MEDS: guaiFENesin 600 MG Tablet 1200 MG PO ×2 (05:14→17:24)
[2021-03-18] MEDS: Ciprofloxacin 250 MG Tablet PO ×2 (05:14→17:23)
[2021-03-18] MEDS: APIXABAN 5 MG TABLET PO ×2 (05:14→17:24)
[2021-03-18] MEDS: Loperamide 2 MG Capsule 4 MG PO ×4 (05:15→23:20)
[2021-03-18] MEDS: Gabapentin 300 MG Capsule PO ×2 (05:15→17:24)
[2021-03-18] MEDS: Pantoprazole Sodium 40 MG Tablet PO ×2 (05:15→17:24)
[2021-03-18] MEDS: Nystatin Powder 15gm Bottle 1 APPLIC TOPICAL ×3 (05:18→23:20)
[2021-03-18] MEDS: Menthol/Lanolin/Calamine/Znox 113 GM Tube 1 APPLIC TOPICAL (05:18)
[2021-03-18] MEDS: Fluticasone Propion/Salmeterol 250-50 Inhaler 1 PUFF INHALATION ×2 (05:19→17:17)
[2021-03-18 06:31] LABS: Bedside Glucose 134 mg/dL (70-110)
[2021-03-18 07:03] VITALS: BP 99/59; PULSE 63; RESP 16; TEMP 36.4; O2SAT 95
[2021-03-18] MEDS: Juven (unflavored) Packet 1 PACKET PO ×2 (09:04→17:21)
[2021-03-18] MEDS: Aspirin 81 MG TAB.CHEW PO (09:04)
[2021-03-18] MEDS: Iron Polysaccharide Complex 150 MG CAPSULE PO (09:05)
[2021-03-18 10:00] VITALS: PULSE 54; RESP 18
[2021-03-18 10:36] LABS: Bedside Glucose 133 mg/dL (70-110)
[2021-03-18 13:29] VITALS: BP 134/64; PULSE 73; RESP 16; TEMP 36.4; O2SAT 97
[2021-03-18 17:00] LABS: Bedside Glucose 193 mg/dL (70-110)
[2021-03-18] MEDS: 0.9% Saline Lock 10 ML Syringe IV ×2 (17:15→23:23)
[2021-03-18 21:36] LABS: Bedside Glucose 187 mg/dL (70-110)
[2021-03-18] MEDS: Gabapentin 600 MG Tablet PO (23:21)
[2021-03-19 06:26] LABS: Bedside Glucose 163 mg/dL (70-110)
[2021-03-19] MEDS: Menthol/Lanolin/Calamine/Znox 113 GM Tube 1 APPLIC TOPICAL ×2 (06:59→17:26)
[2021-03-19 07:00] VITALS: BP 111/54; PULSE 62; RESP 18; TEMP 36.2; O2SAT 95
[2021-03-19] MEDS: APIXABAN 5 MG TABLET PO ×2 (07:00→18:50)
[2021-03-19] MEDS: Ciprofloxacin 250 MG Tablet PO ×2 (07:00→18:47)
[2021-03-19] MEDS: guaiFENesin 600 MG Tablet 1200 MG PO ×2 (07:01→18:47)
[2021-03-19] MEDS: Loperamide 2 MG Capsule 4 MG PO ×4 (07:01→21:51)
[2021-03-19] MEDS: Gabapentin 300 MG Capsule PO ×2 (07:02→18:47)
[2021-03-19] MEDS: Nystatin Powder 15gm Bottle 1 APPLIC TOPICAL ×3 (07:02→21:52)
[2021-03-19] MEDS: Pantoprazole Sodium 40 MG Tablet PO ×2 (07:03→18:47)
[2021-03-19] MEDS: Fluticasone Propion/Salmeterol 250-50 Inhaler 1 PUFF INHALATION ×2 (07:03→17:26)
[2021-03-19] MEDS: Iron Polysaccharide Complex 150 MG CAPSULE PO (08:06)
[2021-03-19] MEDS: Juven (unflavored) Packet 1 PACKET PO ×2 (08:06→18:53)
[2021-03-19] MEDS: Aspirin 81 MG TAB.CHEW PO (08:06)
--- NOTE | 2021-03-19 08:57 | NURSING ---
Resident educated on the COVID-19 Vaccine. She does not want it.
--- NOTE | 2021-03-19 09:58 | CASEMGMT ---
Social Work Spoke with pt and dtr about coordinating DC plans because once ATB are completed for infection, IDT will be setting DC date as she is medically stable at this time. Both expressed understanding and requested meeting with all parties and . Scheduled meeting for 03/23. Will explain options and answer questions. Explained tentatively setting DC date for 03/30, but will finalize once decisions are made. Pt would like information on [facility], [facility] and [facility]. Sent updated clinicals to all three for final outcomes. SW to continue to follow. Philly Ace, MEDICAL SUPERVISOR WEB METHODS DEVELOPER
[2021-03-19 10:55] LABS: Bedside Glucose 172 mg/dL (70-110)
[2021-03-19] MEDS: DAKIN'S SOL HALF STRENGTH (=0.25%) 1 APPLIC TOPICAL (12:48)
[2021-03-19 13:24] VITALS: BP 123/66; PULSE 71; RESP 16; TEMP 36.2
--- NOTE | 2021-03-19 14:29 | NURSING ---
wound photo: left foot
--- NOTE | 2021-03-19 14:29 | NURSING ---
wound photo: left foot
--- NOTE | 2021-03-19 14:30 | NURSING ---
wound photo: left foot
[2021-03-19 16:30] LABS: Bedside Glucose 199 mg/dL (70-110)
[2021-03-19] MEDS: 0.9% Saline Lock 10 ML Syringe IV (18:50)
[2021-03-19 21:25] LABS: Bedside Glucose 173 mg/dL (70-110)
[2021-03-19] MEDS: Gabapentin 600 MG Tablet PO (21:51)
[2021-03-19 22:00] VITALS: PULSE 57; RESP 16; O2SAT 96
[2021-03-20 05:00] VITALS: BP 117/62; PULSE 74; RESP 16; TEMP 36.9; O2SAT 96
[2021-03-20] MEDS: guaiFENesin 600 MG Tablet 1200 MG PO ×2 (05:55→16:42)
[2021-03-20] MEDS: APIXABAN 5 MG TABLET PO ×2 (05:55→16:42)
[2021-03-20] MEDS: Loperamide 2 MG Capsule 4 MG PO ×4 (05:55→22:01)
[2021-03-20] MEDS: Gabapentin 300 MG Capsule PO ×2 (05:55→16:42)
[2021-03-20] MEDS: Ciprofloxacin 250 MG Tablet PO ×2 (05:55→18:31)
[2021-03-20] MEDS: Pantoprazole Sodium 40 MG Tablet PO ×2 (05:55→16:42)
[2021-03-20] MEDS: Fluticasone Propion/Salmeterol 250-50 Inhaler 1 PUFF INHALATION ×2 (05:57→16:48)
[2021-03-20] MEDS: Nystatin Powder 15gm Bottle 1 APPLIC TOPICAL ×2 (05:57→15:07)
[2021-03-20] MEDS: Menthol/Lanolin/Calamine/Znox 113 GM Tube 1 APPLIC TOPICAL ×2 (05:57→16:42)
[2021-03-20 06:30] LABS: Bedside Glucose 135 mg/dL (70-110)
[2021-03-20] MEDS: Juven (unflavored) Packet 1 PACKET PO ×2 (08:39→16:39)
[2021-03-20] MEDS: Aspirin 81 MG TAB.CHEW PO (08:39)
[2021-03-20] MEDS: Iron Polysaccharide Complex 150 MG CAPSULE PO (08:39)
[2021-03-20] MEDS: HYDROcodone Bitartrate/Apap 5/325 Tablet PO (08:58)
[2021-03-20] MEDS: Ondansetron ODT 4 MG Tablet PO ×2 (09:01→15:01)
[2021-03-20 10:56] LABS: Bedside Glucose 142 mg/dL (70-110)
--- NOTE | 2021-03-20 11:00 | NURSING ---
Addendum entered by Gisselle James 03/20/21 15:51: Patient with second emesis early afternoon per charge gang weigher. Zofran admin at 1500 and dissolved on patient tongue, patient reports improvement in nausea at this time. Chicken noodle soup provided per patient request. Will continue to monitor and assess. Original Note: 919 patient sitting on BSC with diarrhea. Patient c/o headache of 7/10, fluids encouraged. Per orders [place] administered. Patient requested Zofran prior to [place] to prevent upset stomach. Patient took Zofran followed by [place], c/o lightheadedness and immediately had large emesis of undigested food. Patient assisted back to bed with X2 assist to reduce lightheadedness. When RN rechecked on patient, patient resting quietly in bed with eyes closed on left side.
[2021-03-20 15:37] VITALS: BP 112/57; PULSE 64; RESP 16; TEMP 36.2; O2SAT 98
[2021-03-20] MEDS: Acetaminophen 500 MG Tablet PO (15:49)
[2021-03-20 16:36] LABS: Bedside Glucose 213 mg/dL (70-110)
[2021-03-20 21:25] LABS: Bedside Glucose 218 mg/dL (70-110)
[2021-03-20] MEDS: Gabapentin 600 MG Tablet PO (22:01)
[2021-03-21 05:00] VITALS: BP 102/60; PULSE 62; RESP 18; TEMP 36.6; O2SAT 99
[2021-03-21] MEDS: Ondansetron ODT 4 MG Tablet PO (05:22)
[2021-03-21 06:26] LABS: Bedside Glucose 133 mg/dL (70-110)
[2021-03-21] MEDS: guaiFENesin 600 MG Tablet 1200 MG PO ×2 (06:33→17:03)
[2021-03-21] MEDS: Loperamide 2 MG Capsule 4 MG PO ×4 (06:33→20:41)
[2021-03-21] MEDS: 0.9 % NaCl (Sterile) Posiflush 10 mL IV (06:33)
[2021-03-21] MEDS: Fluticasone Propion/Salmeterol 250-50 Inhaler 1 PUFF INHALATION ×2 (06:34→17:07)
[2021-03-21] MEDS: APIXABAN 5 MG TABLET PO ×2 (06:34→17:04)
[2021-03-21] MEDS: Gabapentin 300 MG Capsule PO ×2 (06:35→17:07)
[2021-03-21] MEDS: Nystatin Powder 15gm Bottle 1 APPLIC TOPICAL ×3 (06:35→20:42)
[2021-03-21] MEDS: Pantoprazole Sodium 40 MG Tablet PO ×2 (06:35→17:03)
[2021-03-21] MEDS: Menthol/Lanolin/Calamine/Znox 113 GM Tube 1 APPLIC TOPICAL ×2 (06:36→17:04)
[2021-03-21] MEDS: Ciprofloxacin 250 MG Tablet PO ×2 (06:38→17:03)
[2021-03-21] MEDS: Juven (unflavored) Packet 1 PACKET PO ×2 (08:17→17:03)
[2021-03-21] MEDS: Aspirin 81 MG TAB.CHEW PO (08:18)
[2021-03-21] MEDS: Iron Polysaccharide Complex 150 MG CAPSULE PO (08:18)
[2021-03-21 10:00] VITALS: PULSE 70; O2SAT 97
[2021-03-21 11:25] LABS: Bedside Glucose 181 mg/dL (70-110)
[2021-03-21] MEDS: 0.9% Saline Lock 10 ML Syringe IV (14:10)
[2021-03-21 14:15] VITALS: BP 110/53; PULSE 73; RESP 17; TEMP 36.6; O2SAT 96
[2021-03-21 18:05] LABS: Bedside Glucose 196 mg/dL (70-110)
[2021-03-21] MEDS: Gabapentin 600 MG Tablet PO (20:42)
[2021-03-21 21:20] LABS: Bedside Glucose 184 mg/dL (70-110)
[2021-03-22 05:00] VITALS: BP 128/65; PULSE 65; RESP 18; TEMP 36.5; O2SAT 98
[2021-03-22] MEDS: Pantoprazole Sodium 40 MG Tablet PO ×2 (05:27→17:53)
[2021-03-22] MEDS: guaiFENesin 600 MG Tablet 1200 MG PO ×2 (05:27→17:53)
[2021-03-22] MEDS: Ciprofloxacin 250 MG Tablet PO ×2 (05:27→17:53)
[2021-03-22] MEDS: APIXABAN 5 MG TABLET PO ×2 (05:28→17:53)
[2021-03-22] MEDS: Nystatin Powder 15gm Bottle 1 APPLIC TOPICAL ×3 (05:28→20:57)
[2021-03-22] MEDS: Fluticasone Propion/Salmeterol 250-50 Inhaler 1 PUFF INHALATION ×2 (05:29→17:54)
[2021-03-22] MEDS: Menthol/Lanolin/Calamine/Znox 113 GM Tube 1 APPLIC TOPICAL ×2 (05:32→17:56)
[2021-03-22] MEDS: Loperamide 2 MG Capsule 4 MG PO ×4 (05:32→20:52)
[2021-03-22] MEDS: Gabapentin 300 MG Capsule PO ×2 (05:33→17:54)
[2021-03-22 06:26] LABS: Bedside Glucose 170 mg/dL (70-110)
[2021-03-22] MEDS: Aspirin 81 MG TAB.CHEW PO (08:01)
[2021-03-22] MEDS: Juven (unflavored) Packet 1 PACKET PO ×2 (08:01→17:53)
[2021-03-22] MEDS: Iron Polysaccharide Complex 150 MG CAPSULE PO (09:18)
[2021-03-22 10:40] LABS: Bedside Glucose 163 mg/dL (70-110)
--- NOTE | 2021-03-22 13:36 | NURSING ---
PICC dressing done today per order, good blood return, pt tolerated well.
[2021-03-22 14:47] VITALS: BP 148/71; PULSE 70; RESP 16; TEMP 37.1; O2SAT 99
--- NOTE | 2021-03-22 14:58 | NURSING ---
wound photo: left foot
--- NOTE | 2021-03-22 14:58 | NURSING ---
wound photo: left foot
[2021-03-22 16:41] LABS: Bedside Glucose 189 mg/dL (70-110)
--- NOTE | 2021-03-22 18:59 | PN.TCU_ITS ---
Subjective Subjective Resident seen, examined for regulatory visit. She has no new problems, concerns, issues, complaints. Objective Data Objective Data Vital Signs: Vital Signs Temp Pulse Resp BP Pulse Ox 98.7 F 70 16 148/71 H 99 03/22/21 14:47 03/22/21 14:47 03/22/21 14:47 03/22/21 14:47 03/22/21 14:47 Oxygen Flow Rate (L/min) 98 Oxygen Delivery Method Room Air Weight: 72.439 kg Body Mass Index (BMI) 26.1 Orthostatic Vital Signs Start: 02/03/21 16:30 Freq: Status: Active Protocol: Activity Type Activity Date Activity User E-Sign Co-Sign Detail Recorded Client Recorded Date Recorded By Document 02/12/21 13:38 ML [id number] 02/12/21 13:39 ML 02/12/21 13:38 Orthostatic Vitals Standing -Blood Pressure (90/60-120/80) 81/44 L -Extremity Use Right Arm -Pulse Rate (60-100) 100 Sitting -Blood Pressure (90/60-120/80) 113/62 -Extremity Use Right Arm -Pulse Rate (60-100) 80 Lying -Blood Pressure (90/60-120/80) 127/61 H -Extremity Use Right Arm -Pulse Rate (60-100) 74 Intake & Output: Intake and Output for Last 24 Hours 03/20/21 03/21/21 03/22/21 23:59 23:59 23:59 Intake Total 720 / 720 1200 / 1200 480 / 480 Output Total 1000 / 1000 Balance -280 / -280 1200 / 1200 480 / 480 Lab / Micro Data Result Diagrams: 03/15/21 09:10 03/15/21 09:10 Labs: Laboratory Results - last 24 hr 03/21/21 03/22/21 03/22/21 21:11 06:16 10:36 POC Glucose 184 H 170 H 163 H 03/22/21 16:30 POC Glucose 189 H Micro: Microbiology 03/14/21 13:50 Urine Catheter - Catheter Urine Culture - Final Klebsiella pneumoniae sp pneum 02/18/21 15:30 Mucosa - Nose SARS-CoV-2 Antigen (Rapid) - Final 02/08/21 17:02 Interface Orders Urine Culture - Final Culture exhibits no growth. 02/06/21 15:30 Stool C. difficile DNA Amplification - Final 02/01/21 19:43 Wound Abcess - Aerobic & Anaerobic Swabs Gram Stain - Final 02/01/21 19:43 Wound Abcess - Aerobic & Anaerobic Swabs Wound Culture - Final Staphylococcus aureus 02/01/21 19:43 Wound Abcess - Aerobic & Anaerobic Swabs Anaerobic Culture - Final No anaerobic bacteria isolated. Physical Exam Const alert and oriented x3 General Appearance: cooperative HEENT normocephalic Eyes PERRL and EOMs intact bilaterally Neck supple, no JVD and no carotid bruits Resp normal respiratory effort, normal air movement and clear to auscultation bilaterally Cardio regular rate and regular rhythm GI normal to inspection, nondistended, normoactive bowel sounds, non-tender and non-distended Extremity normal capillary refill Extremity Narrative: Left metatarsal amputation with wound per wound nurse. General Extremity: Negative for edema Skin no rashes or lesions noted General Skin Exam: no breakdown Psych affect normal Appearance: appropriate Assessment & Plan Assessment/Plan (1) Debility: (2) Diabetic foot ulcer: (3) Cellulitis of left foot: (4) Osteomyelitis of left foot: (5) Diabetes mellitus: (6) Brain tumor (benign): (7) Chronic diarrhea: (8) Epilepsy: (9) Mitral valve prolapse: (10) Diabetic neuropathy: (11) Osteoarthritis of cervical and lumbar spine: (12) Gastroesophageal reflux disease: (13) Asthma: PLAN: 65 year old female with below past medical history hospitalized for left diabetic foot infection, complicated by osteomyelitis requiring left 2nd, 3rd toe amputation 01/16/2021, wound VAC, admitted to TCU with debility, here for rehabilitation, strengthening, prior to discharge home with . * Debility - PT/OT. * Pain - Tylenol 1000MG Q6H PRN pain (1-5), [place] 5/325MG 1-2 Q6H PRN pain (4- 10). * Bowel - See below. * Adult Immunization - Administer Prevnar 13, Pneumovax 23, Fluzone, COVID19 vaccine as appropriate. * DVT prophylaxis - Not necessary, on Eliquis. * Asthma - Advair 232-14 2 puffs BID, Proair 1 puff Q4H PRN. * Left foot osteomyelitis - status post left transmetatarsal amputation with complex wound closure 02/19/2021. * Left foot wound - Alfredo 1 packet BID, Povidone 10ML topical Q48H, Dakins 1/2 strengthen topical daily. * Diabetic neuropathy - Gabapentin 300MG BID, 600MG QHS. * Congestion - Mucinex 1200MG BID. * Diabetes Mellitus II - Monitor blood sugars. * GI prophylaxis - Lactobacillus 1 tablet po TID. * GERD - Pantoprazole 40MG BID. * Skin irritation - Calmoseptine topical BID. * Tinea Corporis - Nystatin topical TID. * Nausea - Zofran 4MG Q6H PRN. * Chronic diarrhea, history of c. difficile - Imodium 4MG 4x/day, Vancomycin 125MG every other day for suppression. * Iron deficiency anemia - Ferrex 150MG daily. * Pancreatic insufficiency - Creon 6000 units 1 capsule po TID. * DVT left lower extremity - diagnosed 02/18/2021, Eliquis 5MG BID thru 05/15/2021. * Peripheral arterial occlusive disease - Aspirin 81MG daily. * K. Pneumoniae urinary tract infection - Cipro 250MG twice daily thru 03/24/2021. * Rash - Hytone topical TID PRN. Capacity Capacity Assessment Tool Can the patient make a choice & communicate that choice?: Yes Can the patient understand benefits, risks and alternatives?: Yes Can the patient make a logical, rational choice?: Yes Is the choice the patient makes consistent w/ their values?: Yes Is there an impending, emergent risk to the patient?: No Does the patient have an Advance Directive?: No Is there a Surrogate Available?: Yes i.e. HCPOA: Yes i.e. close relative (spouse, child, parent, sibling)?: Yes
[2021-03-22] MEDS: Gabapentin 600 MG Tablet PO (20:52)
[2021-03-22] MEDS: 0.9 % NaCl (Sterile) Posiflush 10 mL IV (20:56)
[2021-03-22 21:30] LABS: Bedside Glucose 197 mg/dL (70-110)
[2021-03-23 04:30] VITALS: BP 124/61; PULSE 70; RESP 16; TEMP 36.6; O2SAT 95
[2021-03-23] MEDS: Fluticasone Propion/Salmeterol 250-50 Inhaler 1 PUFF INHALATION ×2 (06:23→17:47)
[2021-03-23] MEDS: guaiFENesin 600 MG Tablet 1200 MG PO ×2 (06:24→17:43)
[2021-03-23] MEDS: Loperamide 2 MG Capsule 4 MG PO ×4 (06:24→21:39)
[2021-03-23] MEDS: Gabapentin 300 MG Capsule PO ×2 (06:24→17:43)
[2021-03-23] MEDS: APIXABAN 5 MG TABLET PO ×2 (06:24→17:43)
[2021-03-23] MEDS: Ciprofloxacin 250 MG Tablet PO ×2 (06:24→17:46)
[2021-03-23] MEDS: Pantoprazole Sodium 40 MG Tablet PO ×2 (06:24→17:43)
[2021-03-23 06:26] LABS: Bedside Glucose 140 mg/dL (70-110)
[2021-03-23] MEDS: Menthol/Lanolin/Calamine/Znox 113 GM Tube 1 APPLIC TOPICAL ×2 (06:26→17:44)
[2021-03-23] MEDS: Nystatin Powder 15gm Bottle 1 APPLIC TOPICAL ×3 (06:27→21:41)
--- NOTE | 2021-03-23 08:41 | NURSING ---
ALL CARE GIVEN IN ROOM DUE TO PT IN PRECAUTIONS FOR ESBL IN URINE.
[2021-03-23] MEDS: Juven (unflavored) Packet 1 PACKET PO ×2 (08:51→17:43)
[2021-03-23] MEDS: Aspirin 81 MG TAB.CHEW PO (08:51)
[2021-03-23] MEDS: Iron Polysaccharide Complex 150 MG CAPSULE PO (08:51)
--- NOTE | 2021-03-23 08:57 | NURSING ---
THIS NURSE INTO PT ROOM AND PT ON BSC. STOOL RUNNING OUT JUST LIKE WATER THIS NURSE IS THERE. RN AWARE.
--- NOTE | 2021-03-23 10:58 | CASEMGMT ---
Addendum entered by Philly Ace 03/23/21 15:02: Pt requested to speak with SW. Met with pt. Pt visibly upset and stated she has since spoken to and he is now stating he wants pt to go to [facility] as it is cheaper in cost. Inquired what pt's wishes are. Pt stated it's not up to me, I'm just sick of the back and forth and want a decision made. Validated feelings and provided support. Suggested no decision needs to be made at this time. SW has not followed up yet with either facility and to take another day to think about it. Encouraged to no longer discuss this with dtr or as she states it creates more of an argument. Pt agreed and appreciative of support/ SW to continue to follow. Original Note: Social Work Family meeting held with pt, , and daughter and discussed at length DC options. Answered questions for [place] vs SNF care, Medicare benefit, skilled vs nonskilled criteria, and set DC date for 03/30. Explained W is still denying; [facility] and [facility] are accepting pt. Discussed pros and cons of each placement. Family inquiring about cost for [facility]. Offered to have [facility] contact pt to discuss pricing and answer questions. states he will remain living at his home and not moving with pt. Concluded meeting with pt and family in agreement [facility] best met pt's needs and would be able/willing to pay for cost. Plan: DC 03/30 to [facility]
--- NOTE | 2021-03-23 11:41 | NURSING ---
FAMILY UPDATED AT VISIT
[2021-03-23 12:15] LABS: Bedside Glucose 176 mg/dL (70-110)
[2021-03-23] MEDS: 0.9 % NaCl (Sterile) Posiflush 10 mL IV (13:27)
[2021-03-23 14:29] VITALS: BP 159/78; PULSE 73; RESP 17; TEMP 36.6; O2SAT 96
--- NOTE | 2021-03-23 14:54 | NURSING ---
THIS NURSE CALLED TO PT ROOM. PT HAS A MINIMAL BLOODY NOSE. ASKED PT WHAT HAPPENED AND IF SHE HAS HAD THEM BEFORE. PT STATED YES WHEN I GET REALLY UP SET. COOL WASH RAG GIVEN TO NOSE TO IT STOPPED. NO HEADACHE OR OTHER SYSTEMS. VITALS WERE DONE. WILL CONTINUE TO MONITOR. RN AWARE.
[2021-03-23 17:20] LABS: Bedside Glucose 144 mg/dL (70-110)
[2021-03-23] MEDS: Gabapentin 600 MG Tablet PO (21:39)
[2021-03-23 22:26] LABS: Bedside Glucose 219 mg/dL (70-110)
[2021-03-23 22:59] VITALS: PULSE 71; RESP 16; O2SAT 99
[2021-03-24 05:00] VITALS: BP 94/64; PULSE 71; RESP 16; TEMP 36.6; O2SAT 99
[2021-03-24] MEDS: Gabapentin 300 MG Capsule PO ×2 (05:28→17:25)
[2021-03-24] MEDS: Loperamide 2 MG Capsule 4 MG PO ×4 (05:28→21:39)
[2021-03-24] MEDS: APIXABAN 5 MG TABLET PO ×2 (05:28→17:25)
[2021-03-24] MEDS: Fluticasone Propion/Salmeterol 250-50 Inhaler 1 PUFF INHALATION ×2 (05:28→17:29)
[2021-03-24] MEDS: Pantoprazole Sodium 40 MG Tablet PO ×2 (05:28→17:25)
[2021-03-24] MEDS: guaiFENesin 600 MG Tablet 1200 MG PO ×2 (05:28→17:25)
[2021-03-24] MEDS: Ciprofloxacin 250 MG Tablet PO ×2 (05:28→17:25)
[2021-03-24] MEDS: Nystatin Powder 15gm Bottle 1 APPLIC TOPICAL ×3 (05:29→21:40)
[2021-03-24] MEDS: Menthol/Lanolin/Calamine/Znox 113 GM Tube 1 APPLIC TOPICAL ×2 (05:29→17:37)
[2021-03-24 06:05] LABS: Bedside Glucose 130 mg/dL (70-110)
[2021-03-24] MEDS: Aspirin 81 MG TAB.CHEW PO (08:31)
[2021-03-24] MEDS: Iron Polysaccharide Complex 150 MG CAPSULE PO (08:31)
[2021-03-24] MEDS: Juven (unflavored) Packet 1 PACKET PO ×2 (08:31→17:25)
[2021-03-24 11:15] LABS: Bedside Glucose 162 mg/dL (70-110)
[2021-03-24 12:18] VITALS: RESP 18
[2021-03-24 14:03] VITALS: BP 131/62; PULSE 66; RESP 16; TEMP 36.2; O2SAT 98
[2021-03-24 16:50] LABS: Bedside Glucose 212 mg/dL (70-110)
--- NOTE | 2021-03-24 18:55 | PN_ITS ---
Subjective Subjective Patient seen and examined resting comfortably. Patient denies any new pedal complaints. Patient denies any nausea, fever, chills, chest pain, shortness of breath, cough, streaking, purulence, vomiting. Objective Data Objective Data Vital Signs: Vital Signs Temp Pulse Resp BP Pulse Ox 97.2 F L 66 16 131/62 H 98 03/24/21 14:03 03/24/21 14:03 03/24/21 14:03 03/24/21 14:03 03/24/21 14:03 Oxygen Flow Rate (L/min) 98 Oxygen Delivery Method Room Air Weight: 71.923 kg Body Mass Index (BMI) 26.1 Orthostatic Vital Signs Start: 02/03/21 16:30 Freq: Status: Active Protocol: Activity Type Activity Date Activity User E-Sign Co-Sign Detail Recorded Client Recorded Date Recorded By Document 02/12/21 13:38 ML [id number] 02/12/21 13:39 ML 02/12/21 13:38 Orthostatic Vitals Standing -Blood Pressure (90/60-120/80) 81/44 L -Extremity Use Right Arm -Pulse Rate (60-100) 100 Sitting -Blood Pressure (90/60-120/80) 113/62 -Extremity Use Right Arm -Pulse Rate (60-100) 80 Lying -Blood Pressure (90/60-120/80) 127/61 H -Extremity Use Right Arm -Pulse Rate (60-100) 74 Intake & Output: Intake and Output for Last 24 Hours 03/22/21 03/23/21 03/24/21 23:59 23:59 23:59 Intake Total 720 / 720 480 / 480 280 / 280 Balance 720 / 720 480 / 480 280 / 280 Lab / Micro Data Result Diagrams: 03/15/21 09:10 03/15/21 09:10 Labs: Laboratory Results - last 24 hr 03/23/21 03/24/21 03/24/21 22:12 05:52 11:09 POC Glucose 219 H 130 H 162 H 03/24/21 16:45 POC Glucose 212 H Micro: Microbiology 03/14/21 13:50 Urine Catheter - Catheter Urine Culture - Final Klebsiella pneumoniae sp pneum 02/18/21 15:30 Mucosa - Nose SARS-CoV-2 Antigen (Rapid) - Final 02/08/21 17:02 Interface Orders Urine Culture - Final Culture exhibits no growth. 02/06/21 15:30 Stool C. difficile DNA Amplification - Final 02/01/21 19:43 Wound Abcess - Aerobic & Anaerobic Swabs Gram Stain - Final 02/01/21 19:43 Wound Abcess - Aerobic & Anaerobic Swabs Wound Culture - Fin al Staphylococcus aureus 02/01/21 19:43 Wound Abcess - Aerobic & Anaerobic Swabs Anaerobic Culture - Final No anaerobic bacteria isolated. Physical Exam Const alert, oriented x3 and no apparent distress General Appearance: cooperative HEENT normocephalic Resp normal respiratory effort Extremity normal capillary refill and no calf tenderness Extremity Narrative: Negative Faith and Mchugh sign left Left transmetatarsal amputation Compartments of left lower extremity remain soft to palpate General Extremity: edema; Negative for clubbing or cyanosis Skin Skin Narrative: no purulence, no erythema, no streaking, no odor, no infection. Adjacent skin is atrophic. There are sutures are intact to the left transmetatarsal amputation without large dehiscence. eschar stabilization lateral plantar aspect of the left foot without fluctuation noted with reduced serosanguineous drainage. Upon removal of some of the eschar to plantar aspect of the incision it is noted that there is nonhealing aspect of the incision. Sutures remain intact and skin remains well coapted. The prior blister site is now stable, well adhered, and dry. Mild strikethrough on inner bandage only. Neuro Neuro Narrative: lack of normal epicritic sensation via light touch consistent with neuropathy Psych cooperative and affect normal Assessment & Plan Assessment/Plan (1) Wound of left foot: (2) PAD (peripheral artery disease): (3) Type 2 diabetes mellitus with diabetic polyneuropathy: QUALIFIERS: Diabetes mellitus long lines operator insulin use: unspecified long lines operator insulin use status Qualified Code(s): E11.42 - Type 2 diabetes mellitus with diabetic polyneuropathy PLAN: (1) Type 2 diabetes mellitus with diabetic polyneuropathy: (2) Wound of left foot: (3) Abscess of left foot: (4) Blister (nonthermal), left foot, initial encounter: (5) PAD (peripheral artery disease): (6) Non-pressure chronic ulcer of other part of left foot limited to breakdown of skin: PLAN: s/p left transmetatarsal amputation with closure (DOS 02/19/2021) -- stable and continuing to demarcate Diabetes with neuropathy Malnutrition suspected Deep venous thrombosis left posterior tibial vein Left foot infection resolved Other comorbidities: epilepsy, history of brain tumor, GERD, h/o c. diff Patient seen and examined. Sutures did not appear ready for removal at this time. Will reassess in a week. Patient can be discharged prior to suture removal. Patient states that she is planning on discharge on 03-31-21 at this current time. Foot healing, and overall stable at this time. No evidence of infection. Continue with local wound care - wet to dry with betadine solution and gauze, kerlix and clarke - change every other day. Continue to pad heels well with offlo ading boot and ABD pads with early signs of pressure ulcer previously noted to left heel (resolving well). To maintain a non weightbearing status of left lower extremity. Reviewed the importance of this with the patient. She will continue to work with physical and occupational therapy. It is okay to touchdown on the heel only if needed for transfers on occasion. To elevate limb at rest to reduce edema / tension on amputation site. ID on consult and antibiotic management appreciated. To continue Eliquis for treatment of acute deep venous thrombosis. Medical management per Dr. Ivy is appreciated and noted. To continue with nutritional supplementation to optimize healing; Alfredo. Podiatry will see patient weekly while in the transitional care unit. It is okay to discharge and transfer from a surgical standpoint. Discharge recommendations will be placed in the discharge document. To follow-up with Dr. Finn within 1 week of discharge in which suture removal and continued wound care treatment will be implemented at the wound healing center. Please not hesitate to call if you have any questions. Stacie Finn DPM, [facility] [phone]
[2021-03-24 21:25] LABS: Bedside Glucose 139 mg/dL (70-110)
[2021-03-24] MEDS: Gabapentin 600 MG Tablet PO (21:39)
[2021-03-24] MEDS: Acetaminophen 500 MG Tablet 1000 MG PO (21:44)
[2021-03-25 05:00] VITALS: BP 131/67; PULSE 68; RESP 16; TEMP 36.3; O2SAT 98
[2021-03-25] MEDS: APIXABAN 5 MG TABLET PO ×2 (06:02→17:16)
[2021-03-25] MEDS: Gabapentin 300 MG Capsule PO ×2 (06:02→17:17)
[2021-03-25] MEDS: Pantoprazole Sodium 40 MG Tablet PO ×2 (06:03→17:17)
[2021-03-25] MEDS: Fluticasone Propion/Salmeterol 250-50 Inhaler 1 PUFF INHALATION ×2 (06:03→17:15)
[2021-03-25] MEDS: Loperamide 2 MG Capsule 4 MG PO ×4 (06:03→20:18)
[2021-03-25] MEDS: Nystatin Powder 15gm Bottle 1 APPLIC TOPICAL ×3 (06:04→20:20)
[2021-03-25] MEDS: guaiFENesin 600 MG Tablet 1200 MG PO ×2 (06:04→17:17)
[2021-03-25] MEDS: Menthol/Lanolin/Calamine/Znox 113 GM Tube 1 APPLIC TOPICAL ×2 (06:06→17:20)
[2021-03-25] MEDS: Acetaminophen 500 MG Tablet PO (06:07)
[2021-03-25] MEDS: 0.9 % NaCl (Sterile) Posiflush 10 mL IV (06:13)
[2021-03-25 06:20] LABS: Bedside Glucose 135 mg/dL (70-110)
[2021-03-25] MEDS: Juven (unflavored) Packet 1 PACKET PO ×2 (08:11→17:15)
[2021-03-25] MEDS: Aspirin 81 MG TAB.CHEW PO (08:11)
[2021-03-25] MEDS: Iron Polysaccharide Complex 150 MG CAPSULE PO (08:15)
--- NOTE | 2021-03-25 10:55 | CASEMGMT ---
Social Work Followed up with pt, dtr and for final decision. All decided on [facility]. Notified [facility] and [place] on FOC. Pt electing w/c transport and aware it may be private pay- agreeable. Scheduled w/c transport through [facility] at 10 am. Plan: DC to [facility] nonskilled 03/30 DEBBI Calvin
[2021-03-25 10:56] LABS: Bedside Glucose 123 mg/dL (70-110)
--- NOTE | 2021-03-25 12:05 | PHA.CONS_ITS ---
Progress Note - Pharmacy Subjective: Monthly Assessment Objective: Allergies cefprozil Allergy (Verified 02/19/21 09:42) Shortness of breath ceftriaxone Allergy (Verified 02/19/21 09:42) Hives clindamycin Allergy (Verified 02/19/21 09:42) Rash enalapril Allergy (Verified 02/19/21 09:42) Other enoxaparin Allergy (Verified 02/19/21 09:42) Rash heparin Allergy (Verified 02/19/21 09:42) Rash levalbuterol Allergy (Verified 02/19/21 09:42) Other morphine Allergy (Verified 02/19/21 09:42) Shortness of breath Penicillins Allergy (Verified 02/19/21 09:42) Anaphylaxis shellfish derived Allergy (Verified 02/19/21 09:42) Anaphylaxis valsartan Allergy (Verified 02/19/21 09:42) Other vancomycin Allergy (Verified 02/19/21 09:42) Rash Current Medications Generic Name Dose Route Start Last Admin Trade Name Freq PRN Reason Stop Dose Admin Acetaminophen 1,000 mg 01/30/21 17:19 03/24/21 21:44 Acetaminophen 500 Mg Tablet PO 1,000 mg Q6H PRN Administration FEVER Acetaminophen 500 mg 02/02/21 20:29 03/25/21 06:07 Acetaminophen 500 Mg Tablet PO 500 mg Q6H PRN PRN Administration Pain Score 1-5 Hydrocodone Bitart/Acetaminophen 1 - 2 tablet 02/19/21 16:00 03/20/21 08:58 Hydrocodone Bitartrate/Apap 5/325 Tablet PO 1 tablet Q6H PRN PRN Administration Pain Score 4-10 Albuterol Sulfate 1 puff 01/30/21 16:59 02/02/21 06:06 Albuterol Sulfate 8 Gm Inhaler (60 Puffs) INHALATION 1 puff Q4H PRN PRN Administration SHORTNESS OF BREATH Apixaban 5 mg 02/13/21 06:00 03/25/21 06:02 Apixaban 5 Mg Tablet PO 05/15/21 18:00 5 mg BID HEMA Administration Aspirin 81 mg 02/05/21 08:00 03/25/21 08:11 Aspirin 81 Mg Tab.Chew PO 81 mg DAILY@0800 HEMA Administration Calamine/Phenol 1 applic 01/30/21 18:00 03/25/21 06:06 Menthol/Lanolin/Calamine/Znox 113 Gm Tube TOPICAL 1 applic BID HEMA Administration Protocol Gabapentin 300 mg 01/30/21 18:00 03/25/21 06:02 Gabapentin 300 Mg Capsule PO 300 mg BID HEMA Administration Gabapentin 600 mg 01/30/21 22:00 03/24/21 21:39 Gabapentin 600 Mg Tablet PO 600 mg QHS HEMA Administration Guaifenesin 1,200 mg 01/30/21 18:00 03/25/21 06:04 Guaifenesin 600 Mg Tablet PO 1,200 mg BID HEMA Administration Hydrocortisone 1 applic 02/23/21 16:37 03/02/21 06:23 Hydrocortisone 2.5% Crm TOPICAL 1 applic TID PRN PRN Administration ITCHING L-Arginine/L-Glutamine/Calcium HMB 1 packet 01/31/21 17:00 03/25/21 08:11 Alfredo (Unflavored) Packet PO 1 packet BIDCM HEMA Administration Lactobacillus Acidophilus 1 tablet 02/08/21 22:00 03/25/21 06:09 Lactobacillus Acidophilus PO 1 tablet TID HEMA Administration Loperamide HCl 4 mg 01/30/21 22:00 03/25/21 11:48 Loperamide 2 Mg Capsule PO 4 mg 4X/DAY HEMA Administration Nystatin 1 applic 01/30/21 22:00 03/25/21 06:04 Nystatin Powder 15gm Bottle TOPICAL 1 applic TID HEMA Administration Protocol Ondansetron HCl 4 mg 01/30/21 17:02 03/21/21 05:22 Ondansetron Odt 4 Mg Tablet PO 4 mg Q6H PRN PRN Administration NAUSEA Pancrelipase 1 capsule 02/12/21 17:45 03/25/21 11:48 Creon [address] Capsule PO 1 capsule TIDCM HEMA Administration Pantoprazole Sodium 40 mg 01/30/21 18:00 03/25/21 06:03 Pantoprazole Sodium 40 Mg Tablet PO 40 mg BID HEMA Administration Polysaccharide Iron Complex 150 mg 02/01/21 08:00 03/25/21 08:15 Iron Polysaccharide Complex 150 Mg Capsule PO 150 mg DAILYCM HEMA Administration Povidone Iodine 10 ml 02/20/21 21:20 03/24/21 12:15 Povidone-Iodine 118 Ml Bottle TOPICAL 10 ml Q48 HEMA Administration Sodium Chloride 10 ml 02/01/21 20:31 03/25/21 06:13 0.9 % Nacl (Sterile) Posiflush 10 Ml IV 10 ml PRN PRN Administration maintain patency Sodium Chloride 250 ml 02/01/21 20:31 02/24/21 05:00 0.9% Normal Saline 250 Ml Iv.Soln. IV 250 ml PRN PRN Administration flush atb post infusion and maintain patency Sodium Chloride 10 - 40 ml 02/03/21 11:44 03/21/21 14:10 0.9% Saline Lock 10 Ml Syringe IV 10 ml UD PRN Administration SALINE FLUSH Sodium Hypochlorite 1 applic 02/02/21 06:00 03/25/21 08:20 Dakin's Ritika Half Strength (=0.25%) TOPICAL Not Given DAILY HEMA Protocol Vancomycin HCl 125 mg 03/21/21 10:00 03/25/21 09:28 Vancomcyin 125 Mg/5 Ml Susp Po.Syringe PO 125 mg QODAY HEMA Administration Problem List Non-pressure chronic ulcer of other part of left foot limited to breakdown of skin (Chronic) Blister (nonthermal), left foot, initial encounter (Acute) PAD (peripheral artery disease) (Acute) Wound of left foot (Acute) Debility (Acute) Diabetic foot ulcer (Chronic) Cellulitis of left foot (Acute) Diabetes mellitus (Chronic) Brain tumor (benign) (Chronic) Chronic diarrhea (Chronic) Epilepsy (Chronic) Mitral valve prolapse (Chronic) Diabetic neuropathy (Chronic) 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) Gastroesophageal reflux disease (Chronic) Type 2 diabetes mellitus with diabetic polyneuropathy (Chronic) Asthma (Chronic) Vital Signs Temp Pulse Resp BP Pulse Ox 97.3 F L 68 16 131/67 H 98 03/25/21 05:00 03/25/21 05:00 03/25/21 05:00 03/25/21 05:00 03/25/21 05:00 Oxygen Flow Rate (L/min) 98 Oxygen Delivery Method Room Air Weight: 71.923 kg Body Mass Index (BMI) 26.1 Orthostatic Vital Signs Start: 02/03/21 16:30 Freq: Status: Active Protocol: Activity Type Activity Date Activity User E-Sign Co-Sign Detail Recorded Client Recorded Date Recorded By Document 02/12/21 13:38 ML [id number] 02/12/21 13:39 ML 02/12/21 13:38 Orthostatic Vitals Standing -Blood Pressure (90/60-120/80) 81/44 L -Extremity Use Right Arm -Pulse Rate (60-100) 100 Sitting -Blood Pressure (90/60-120/80) 113/62 -Extremity Use Right Arm -Pulse Rate (60-100) 80 Lying -Blood Pressure (90/60-120/80) 127/61 H -Extremity Use Right Arm -Pulse Rate (60-100) 74 Sodium 137 mmol/L (136-145) 03/15/21 09:10 Potassium 4.5 mmol/L (3.5-5.1) 03/15/21 09:10 Chloride 109 mmol/L (98-107) H 03/15/21 09:10 Carbon Dioxide 24.0 mmol/L (21.0-32.0) 03/15/21 09:10 Anion Gap 4 (5-15) L 03/15/21 09:10 BUN 43 mg/dL (7-18) H 03/15/21 09:10 Creatinine 0.84 mg/dL (0.55-1.02) 03/15/21 09:10 Est GFR (MDRD) Af Amer 87 mL/min (>60) 03/15/21 09:10 Est GFR (MDRD) Non-Af 72 mL/min (>60) 03/15/21 09:10 BUN/Creatinine Ratio 51.0 RATIO (10-20) H 03/15/21 09:10 Glucose 228 mg/dL (74-106) H 03/15/21 09:10 Assessment/Plan: 1. Pain: Tylenol 500mg PO Q6h PRN pain 1-5, Christoval 5/325mg 1-2 tab PO Q6h PRN Pain 4-10. Please continue to monitor for increased/decreased pain, PRN medication use. 2. Foot wound: Alfredo, Dakins 0.25% solution, Povidine for wound care. Please continue appropriate wound care as necessary, currently off antibiotics at this time. 3. Asthma: Proair 1 puff Q4h PRN SOB. Please continue to monitor for PRN usage, S/S asthma exacerbation. *4. Diabetes II: No medications currently. Last BG = 228. Please consider orde ring A1c, none currently on file. Please consider adding SSI ACHS if clinically indicated, thank you. 5. Diabetic Neuropathy: Gabapentin 300mg PO BID, 600mg PO QHS. Please continue to monitor for medication effectiveness, renal function. 6. Hx DVT: Eliquis 5mg PO BID thru 05/15/21. Please continue to monitor for recurrent DVT, S/S bleeding/bruising. 7. PAD: Aspirin 81mg PO Daily. Please continue to monitor for S/S bleeding. 8. C.diff infection/ chronic diarrhea: Vancomycin oral liquid 125mg PO QODAY (suppression), Acidophilus 1 tab PO TID, Imodium 4mg PO 4x/day. Please continue to monitor for C.diff recurrence, improvement in pt symptoms. *9. GERD: Protonix 40mg PO BID. Please evaluate use. PPI increases the risk of recurrent C.diff infections. Please switch to H2RA if medication still needed, thank you. 10. pancreatic insufficiency: Creon 6,000 unit PO TID. Please continue to monitor for improvement in symptoms. 11. Nausea: Zofran 4mg PO Q6h PRN. Please continue to monitor PRN medication use, medication effectiveness 12. Iron deficiency: Ferrex 150mg PO Daily. Please continue to monitor iron studies as clinically indicated, thank you. 13. Congestion: Mucinex 1200mg PO BID. Please continue to monitor for medication effectiveness Psychotropic Medications: None Unnecessary Medications: *1. Tylenol 1,000mg PO Q6h PRN fever. Please consider consolidating PRN reason of fever into other Tylenol order. Patient already has active PRN Tylenol order, as well as Christoval, runs risk of exceeding >4g/day acetaminophen, thank you. Bowel Regimen: None, significant history of diarrhea. Date of Note:: 03/25/21
[2021-03-25 14:04] VITALS: BP 158/80; PULSE 65; RESP 18; TEMP 36.3; O2SAT 100
[2021-03-25 16:11] LABS: Bedside Glucose 209 mg/dL (70-110)
--- NOTE | 2021-03-25 19:43 | DS.PCM_ITS ---
Providers Date of Admission: 01/30/21 Primary Care Physician: Dr. 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 Routine Comment: 02/01/21 14:06 Physician Consult Routine Consulting Provider: Stacie Finn Consulted Physician Type:: Other * Specify below * Reason for Consult: LT foot 2nd & 3rd digit amputation/infection Comments:: wound vac removed-see wound nurse note MD Notified: Yes Date Notified:: 02/01/21 Time Notified: 14:08 Method of Notification:: Verbal 02/01/21 14:10 Physician Consult Routine Consulting Provider: Kentrell Iqbal Consulted Physician Type:: Infectious Disease Reason for Consult: LT foot infection MD Notified: Yes Date Notified:: 02/01/21 Time Notified: 14:11 Method of Notification:: Verbal 02/04/21 12:04 Physician Consult Routine Consulting Provider: Marcin Hugo Reason for Consult: calcified vessels , healing delays, amputation planning Method of Consult:: In-Person Comments:: noninvasive studies performed at [facility] Notified: Yes Date Notified:: 02/04/21 Time Notified: 15:25 Method of Notification:: Answering Service Reason For Visit: CELLULITIS OF LEFT FOOT/LEFT SECOND AND Diagnosis Discharge Diagnosis (1) Wound of left foot: Status: Acute Code(s): S91.302A - Unspecified open wound, left foot, initial encounter (2) PAD (peripheral artery disease): Status: Acute Code(s): I73.9 - Peripheral vascular disease, unspecified (3) Type 2 diabetes mellitus with diabetic polyneuropathy: Status: Chronic Code(s): E11.42 - Type 2 diabetes mellitus with diabetic polyneuropathy Qualifiers: Diabetes mellitus penitentiary insulin use: unspecified penitentiary insulin use status Qualified Code(s): E11.42 - Type 2 diabetes mellitus with diabetic polyneuropathy Medications at Discharge Home Medications acetaminophen 1,000 mg PO Q6H PRN #0 tab 03/25/21 acetaminophen 500 mg PO Q6H PRN PRN #0 tab 03/25/21 acidophilus-pectin, citrus 1 tab PO TID #0 tab 03/25/21 albuterol sulfate [Ventolin HFA] 1 puff INHALATION Q4H PRN PRN #0 g 03/25/21 apixaban [Eliquis] 5 mg PO BID #0 tab 03/25/21 ajury-imwq-OxBRE-meimfj-xj-gmj [Alfredo (with collagen)] 1 packet PO BIDCM #0 ea 03/25/21 aspirin 81 mg PO DAILY@0800 #0 tab 03/25/21 fluticasone propion-salmeterol [Wixela Inhub] 1 puff INHALATION Q12 #0 ea 03/25/21 gabapentin 300 mg PO BID #0 cap 03/25/21 gabapentin 600 mg PO QHS #0 tab 03/25/21 guaifenesin [Mucus Relief ER] 1,200 mg PO BID #0 tab 03/25/21 hydrocodone-acetaminophen 1 - 2 tab PO Q6H PRN PRN 7 Days #28 tab 03/25/21 hydrocortisone 1 applic TOPICAL TID PRN PRN #0 g 03/25/21 eadtka-exsxqdog-twevfns [Creon] 1 capsule PO TIDCM #0 cap 03/25/21 loperamide 4 mg PO 4X/DAY #0 cap 03/25/21 menthol-zinc oxide [Calmoseptine] 1 applic TOPICAL BID #0 g 03/25/21 nystatin [Nyamyc] 1 applic TOPICAL TID #0 g 03/25/21 ondansetron 4 mg PO Q6H PRN PRN #0 tab 03/25/21 pantoprazole 40 mg PO BID #0 tab 03/25/21 polysaccharide iron complex [Ferrex 150] 150 mg PO DAILYCM #0 cap 03/25/21 povidone-iodine [Betadine] 10 ml TOPICAL Q48 #0 ml 03/25/21 sodium hypochlorite [HySept] 1 applic TOPICAL DAILY #0 ml 03/25/21 vancomycin [Firvanq] 125 mg PO QODAY #0 ml 03/25/21 Hospital Course Operations - (Left foot debridement.) Procedures Wound vac placement (Left foot.) Summary of Care Provided Minutes Spent on Discharge: 35 Hospital Course: 65 year old female with below past medical history hospitalized for left diabetic foot infection, complicated by osteomyelitis requiring left 2nd, 3rd toe amputation 01/16/2021, wound VAC, admitted to TCU with debility, here for rehabilitation, strengthening, prior to discharge home with . MSSA left foot osteomyelitis treated with Linezolid/Meropenem. Vancomycin 125MG every other day for clostridium difficile infection. Acute DVT left lower extremity treated with Eliquis thru 05/20/2021. 03/14/2021 ESBL K. Pneumoniae urinary tract infection treated with Cipro. Discharge to [facility] Home non skilled 03/30/2021. Physical Exam Const alert and oriented x3 General Appearance: cooperative HEENT normocephalic Eyes PERRL and EOMs intact bilaterally Neck supple, no JVD and no carotid bruits Resp normal respiratory effort, normal air movement and clear to auscultation bilat erally Cardio regular rate and regular rhythm GI normal to inspection, nondistended, normoactive bowel sounds, non-tender and non-distended Extremity normal capillary refill General Extremity: Negative for edema Skin no rashes or lesions noted General Skin Exam: no breakdown Psych affect normal Appearance: appropriate ABG / Lab / Microbiology Data Result Diagrams: 03/15/21 09:10 03/15/21 09:10 Laboratory: Laboratory Results - last 24 hr 03/24/21 03/25/21 03/25/21 21:11 06:09 10:44 POC Glucose 139 H 135 H 123 H 03/25/21 15:53 POC Glucose 209 H Microbiology: Microbiology 03/25/21 12:00 SARS-CoV-2 Antigen (Rapid) - Final Mucosa - Nose Microbiology 03/25/21 12:00 Mucosa - Nose SARS-CoV-2 Antigen (Rapid) - Final 03/14/21 13:50 Urine Catheter - Catheter Urine Culture - Final Klebsiella pneumoniae sp pneum 02/18/21 15:30 Mucosa - Nose SARS-CoV-2 Antigen (Rapid) - Final 02/08/21 17:02 Interface Orders Urine Culture - Final Culture exhibits no growth. 02/06/21 15:30 Stool C. difficile DNA Amplification - Final 02/01/21 19:43 Wound Abcess - Aerobic & Anaerobic Swabs Gram Stain - Final 02/01/21 19:43 Wound Abcess - Aerobic & Anaerobic Swabs Wound Culture - Final Staphylococcus aureus 02/01/21 19:43 Wound Abcess - Aerobic & Anaerobic Swabs Anaerobic Culture - Final No anaerobic bacteria isolated. D/C Instructions Discharge Diet: No restrictions Discharge Activity: May Not Shower and Use Walker Weight Bearing Status: No weight bearing (Left lower extremity) Call your doctor if your incision/area has: Continuous Slow Oozing, Sudden Increased Bleeding, Increased Pain/ Swelling, Increased Redness, Foul Smelling Discharge and Swelling at the incision site Call your doctor if you observe: Fever of 101 or Higher, Calf discomfort and Uncontrolled pain Cleanse incision/area with: Keep Dressing Clean & Dry Additional Instructions: Discharge to [facility] Home non skilled 03/30/2021. Please Follow Up With: Stacie Finn DPM When: 1 week. Meaningful Use Info Meaningful Use Diagnoses (Choose all that apply): None applicable Discharge Plan Admission Admit Date/Time: 01/30/21 15:33 Primary Reason for Your Visit: Debility Attending Provider: Enrique Ivy Chi Primary Care Provider: Cody Billings Consulting Providers: Kentrell Iqbal ; Stacie Finn ; Marcin Hugo Instructions Patient Instructions: Wound Care Additional Instructions / Restrictions: Maintain a non weightbearing status to left lower extremity with protective shoe in place. Use assistive device. Ok to occasionally place weight on the left heel for transfers if needed. Elevate limb hourly while awake to reduce limb swelling. Change dressing every other day with betadine wet to dry gauze. Follow up at the wound healing center within one week of discharge with Dr. Finn; call [phone] to confirm date and time. Discharge Orders/Prescriptions Prescriptions: New fluticasone propion-salmeterol [Wixela Inhub] 250-50 mcg/dose Blister With Device 1 puff inhalation Q12 Qty: 0 RF: 0 gabapentin 600 mg Tablet 600 mg PO QHS Qty: 0 RF: 0 loperamide 2 mg Capsule 4 mg PO 4X/DAY Qty: 0 RF: 0 hydrocodone-acetaminophen 5-325 mg Tablet 1 - 2 tab PO Q6H PRN PRN (Reason: Pain Score 4-10) 7 Days Qty: 28 RF: 0 polysaccharide iron complex [Ferrex 150] 150 mg iron Capsule 150 mg PO DAILYCM Qty: 0 RF: 0 acetaminophen 500 mg Tablet 1,000 mg PO Q6H PRN (Reason: Fever) Qty: 0 RF: 0 acetaminophen 500 mg Tablet 500 mg PO Q6H PRN PRN (Reason: Pain Score 1-5) Qty: 0 RF: 0 pantoprazole 40 mg Tablet,Delayed Release (Dr/Ec) 40 mg PO BID Qty: 0 RF: 0 gabapentin 300 mg Capsule 300 mg PO BID Qty: 0 RF: 0 aspirin 81 mg Tablet,Chewable 81 mg PO DAILY@0800 Qty: 0 RF: 0 hydrocortisone 2.5 % Cream 1 applic topical TID PRN PRN (Reason: Itching) Qty: 0 RF: 0 nystatin [Nyamyc] 100,000 unit/gram Powder 1 applic topical TID Qty: 0 RF: 0 albuterol sulfate [Ventolin HFA] 90 mcg/actuation Hfa Aerosol Inhaler 1 puff inhalation Q4H PRN PRN (Reason: SHORTNESS OF BREATH) Qty: 0 RF: 0 ondansetron 4 mg Tablet,Disintegrating 4 mg PO Q6H PRN PRN (Reason: NAUSEA) Qty: 0 RF: 0 HySept 0.25 % Solution 1 applic topical DAILY Qty: 0 RF: 0 povidone-iodine [Betadine] 10 % Solution 10 ml topical Q48 Qty: 0 RF: 0 acidophilus-pectin, citrus 25 million cell -100 mg Tablet 1 tab PO TID Qty: 0 RF: 0 Creon 6,000-19,000 -30,000 unit Capsule,Delayed Release(Dr/Ec) 1 capsule PO TIDCM Qty: 0 RF: 0 Calmoseptine 0.44-20.6 % Ointment 1 applic topical BID Qty: 0 RF: 0 Eliquis 5 mg Tablet 5 mg PO BID Qty: 0 RF: 0 guaifenesin [Mucus Relief ER] 600 mg Tablet Extended Release 12hr 1,200 mg PO BID Qty: 0 RF: 0 Alfredo (with collagen) 7-7-1.5 gram Powder In Packet 1 packet PO BIDCM Qty: 0 RF: 0 Firvanq 25 mg/mL Recon Soln 125 mg PO QODAY Qty: 0 RF: 0 Discontinued gabapentin 600 MG tablet 600 mg PO QHS RF: 0 lansoprazole 30 MG capsule 30 mg PO BID RF: 0 gabapentin 300 MG capsule 300 mg PO BID RF: 0 budesonide-formoterol 10.2 GM HFA aerosol inhaler 2 puff IH BID RF: 0 guaifenesin 600 MG tablet extended release 12hr 1,200 mg PO BID RF: 0 loperamide 2 MG tablet 6 mg PO TID RF: 0 lansoprazole 30 MG capsule 15 mg PO BID RF: 0 albuterol sulfate 1 PUFF inhaler 1 puff INHALATION Q4H PRN PRN (Reason: Shortness Of Breath) RF: 0 ondansetron HCl 4 MG tablet 4 mg PO Q6H PRN PRN (Reason: Nausea) RF: 0 insulin NPH isoph U-100 human 100 UNIT/ML insulin pen 100 units SC DAILY RF: 0 tramadol 50 MG tablet 50 mg PO Q6H PRN PRN (Reason: Pain Score 1-10) RF: 0 Lactobacillus acidophilus 1 EACH capsule 1 each PO DAILY RF: 0 ciprofloxacin HCl 500 MG tablet 500 mg PO BID RF: 0 doxycycline monohydrate 100 MG capsule 100 mg PO BID RF: 0 Referrals / Follow Up: Cody Billings MD [Primary Care Provider] - Disposition Disposition (needs filled in before D/C Order can be placed): NonSkilled NH/Intermed Care
--- NOTE | 2021-03-25 19:56 | PCM.TXEXTCAR ---
Diet 01/30/21 16:34 Diet: Regular - General Food consistency:: Regular Liquid Consistency:: Regular/Thin Diet Comments: [facility] SOFT MEATS only; CIB w/ B, EP w/ L, MC w/ D Routine Orders/Code Status Suppository Type: Dulcolax 10mg Suppository Frequency: Daily PRN Wound(s) left plantar foot: Wound Type: Abscess Dressing Change: Dry Sterile Dressing left 2nd and 3rd metatarsal: Wound Type: Amputation Dressing Change: Dry Sterile Dressing pad of left foot: Wound Type: diabetic ft ulcer Dressing Change: Dry Sterile Dressing right elbow: Wound Type: Abrasion Dressing Change: bandade left foot: Wound Type: Surgical Incision Dressing Change: betadine gauze coccyx: Wound Type: Pressure Injury Dressing Change: ashvin left abdomal fold: Wound Type: excoriation Dressing Change: nystat. powder Natalia Cleft: Wound Type: open d/t moisture Dressing Change: ashvin Therapies Weight Bearing: Non weight bearing (Left lower extremity.) Extremity Affected:: Bilateral Lower Physical Therapy: Eval and Treat Occupational Therapy: Eval and Treat Problem/Diagnosis (1) Wound of left foot: Status: Acute Comment: open amputation (2) PAD (peripheral artery disease): Status: Acute (3) Type 2 diabetes mellitus with diabetic polyneuropathy: Status: Chronic Allergies/Procedures Done in Hospital Allergies cefprozil Allergy (Verified 02/19/21 09:42) Shortness of breath ceftriaxone Allergy (Verified 02/19/21 09:42) Hives clindamycin Allergy (Verified 02/19/21 09:42) Rash enalapril Allergy (Verified 02/19/21 09:42) Other enoxaparin Allergy (Verified 02/19/21 09:42) Rash heparin Allergy (Verified 02/19/21 09:42) Rash levalbuterol Allergy (Verified 02/19/21 09:42) Other morphine Allergy (Verified 02/19/21 09:42) Shortness of breath Penicillins Allergy (Verified 02/19/21 09:42) Anaphylaxis shellfish derived Allergy (Verified 02/19/21 09:42) Anaphylaxis valsartan Allergy (Verified 02/19/21 09:42) Other vancomycin Allergy (Verified 02/19/21 09:42) Rash Procedures: None Type of Care/Length of Stay Estimated LOS: More Than 30 Days Type of Care Needed: Intermediate Rehab Potential: Good Prognosis: Good Additional Orders/Day of Discharge Additional Orders: Part B Therapies Day of Discharge: 03/30/21 Dietary and Speech 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s Dietitian 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s/Changes: Will continue liberal Regular diet as res able to choose own menu according to diabetic guidelines she uses at home Continue Alfredo bid to help w/ wound healing Mech soft meats per res request Provide ONS w/ meals d/t variable po intake - CIB w/ B, EP w/ L, MC w/ D for increased nutrition if consumed - consider d/c if wt gain continues. Follow Up Care Please follow up with your Primary Care Physician in: 1 week. Please Follow Up With: Stacie Finn DPM When: Will perform post operative evaluations while you are in transitional care Discharge Plan Admission Admit Date/Time: 01/30/21 15:33 Primary Reason for Your Visit: Debility Attending Provider: Enrique Ivy Chi Primary Care Provider: Cody Billings Consulting Providers: Kentrell Iqbal ; Stacie Finn ; Marcin Hugo Instructions Patient Instructions: Wound Care Additional Instructions / Restrictions: Maintain a non weightbearing status to left lower extremity with protective shoe in place. Use assistive device. Ok to occasionally place weight on the left heel for transfers if needed. Elevate limb hourly while awake to reduce limb swelling. Change dressing every other day with betadine wet to dry gauze. Follow up at the wound healing center within one week of discharge with Dr. Finn; call [phone] to confirm date and time. Discharge Orders/Prescriptions Prescriptions: New fluticasone propion-salmeterol [Wixela Inhub] 250-50 mcg/dose Blister With Device 1 puff inhalation Q12 Qty: 0 RF: 0 gabapentin 600 mg Tablet 600 mg PO QHS Qty: 0 RF: 0 loperamide 2 mg Capsule 4 mg PO 4X/DAY Qty: 0 RF: 0 hydrocodone-acetaminophen 5-325 mg Tablet 1 - 2 tab PO Q6H PRN PRN (Reason: Pain Score 4-10) 7 Days Qty: 28 RF: 0 polysaccharide iron complex [Ferrex 150] 150 mg iron Capsule 150 mg PO DAILYCM Qty: 0 RF: 0 acetaminophen 500 mg Tablet 1,000 mg PO Q6H PRN (Reason: Fever) Qty: 0 RF: 0 acetaminophen 500 mg Tablet 500 mg PO Q6H PRN PRN (Reason: Pain Score 1-5) Qty: 0 RF: 0 pantoprazole 40 mg Tablet,Delayed Release (Dr/Ec) 40 mg PO BID Qty: 0 RF: 0 gabapentin 300 mg Capsule 300 mg PO BID Qty: 0 RF: 0 aspirin 81 mg Tablet,Chewable 81 mg PO DAILY@0800 Qty: 0 RF: 0 hydrocortisone 2.5 % Cream 1 applic topical TID PRN PRN (Reason: Itching) Qty: 0 RF: 0 nystatin [Nyamyc] 100,000 unit/gram Powder 1 applic topical TID Qty: 0 RF: 0 albuterol sulfate [Ventolin HFA] 90 mcg/actuation Hfa Aerosol Inhaler 1 puff inhalation Q4H PRN PRN (Reason: SHORTNESS OF BREATH) Qty: 0 RF: 0 ondansetron 4 mg Tablet,Disintegrating 4 mg PO Q6H PRN PRN (Reason: NAUSEA) Qty: 0 RF: 0 HySept 0.25 % Solution 1 applic topical DAILY Qty: 0 RF: 0 povidone-iodine [Betadine] 10 % Solution 10 ml topical Q48 Qty: 0 RF: 0 acidophilus-pectin, citrus 25 million cell -100 mg Tablet 1 tab PO TID Qty: 0 RF: 0 Creon 6,000-19,000 -30,000 unit Capsule,Delayed Release(Dr/Ec) 1 capsule PO TIDCM Qty: 0 RF: 0 Calmoseptine 0.44-20.6 % Ointment 1 applic topical BID Qty: 0 RF: 0 Eliquis 5 mg Tablet 5 mg PO BID Qty: 0 RF: 0 guaifenesin [Mucus Relief ER] 600 mg Tablet Extended Release 12hr 1,200 mg PO BID Qty: 0 RF: 0 Alfredo (with collagen) 7-7-1.5 gram Powder In Packet 1 packet PO BIDCM Qty: 0 RF: 0 Firvanq 25 mg/mL Recon Soln 125 mg PO QODAY Qty: 0 RF: 0 Discontinued gabapentin 600 MG tablet 600 mg PO QHS RF: 0 lansoprazole 30 MG capsule 30 mg PO BID RF: 0 gabapentin 300 MG capsule 300 mg PO BID RF: 0 budesonide-formoterol 10.2 GM HFA aerosol inhaler 2 puff IH BID RF: 0 guaifenesin 600 MG tablet extended release 12hr 1,200 mg PO BID RF: 0 loperamide 2 MG tablet 6 mg PO TID RF: 0 lansoprazole 30 MG capsule 15 mg PO BID RF: 0 albuterol sulfate 1 PUFF inhaler 1 puff INHALATION Q4H PRN PRN (Reason: Shortness Of Breath) RF: 0 ondansetron HCl 4 MG tablet 4 mg PO Q6H PRN PRN (Reason: Nausea) RF: 0 insulin NPH isoph U-100 human 100 UNIT/ML insulin pen 100 units SC DAILY RF: 0 tramadol 50 MG tablet 50 mg PO Q6H PRN PRN (Reason: Pain Score 1-10) RF: 0 Lactobacillus acidophilus 1 EACH capsule 1 each PO DAILY RF: 0 ciprofloxacin HCl 500 MG tablet 500 mg PO BID RF: 0 doxycycline monohydrate 100 MG capsule 100 mg PO BID RF: 0 Referrals / Follow Up: Cody Billings MD [Primary Care Provider] - Disposition Disposition (needs filled in before D/C Order can be placed): NonSkilled NH/Intermed Care
[2021-03-25] MEDS: Gabapentin 600 MG Tablet PO (20:19)
[2021-03-25 21:36] LABS: Bedside Glucose 175 mg/dL (70-110)
[2021-03-26 00:35] VITALS: BP 132/59; PULSE 70; RESP 16; TEMP 36.4; O2SAT 99
[2021-03-26] MEDS: 0.9 % NaCl (Sterile) Posiflush 10 mL IV ×2 (03:38→21:38)
[2021-03-26 06:41] LABS: Bedside Glucose 120 mg/dL (70-110)
[2021-03-26] MEDS: Gabapentin 300 MG Capsule PO ×2 (06:41→17:47)
[2021-03-26] MEDS: Pantoprazole Sodium 40 MG Tablet PO ×2 (06:41→17:47)
[2021-03-26] MEDS: Loperamide 2 MG Capsule 4 MG PO ×4 (06:41→21:32)
[2021-03-26] MEDS: guaiFENesin 600 MG Tablet 1200 MG PO ×3 (06:41→21:32)
[2021-03-26] MEDS: Menthol/Lanolin/Calamine/Znox 113 GM Tube 1 APPLIC TOPICAL ×2 (06:42→17:46)
[2021-03-26] MEDS: Nystatin Powder 15gm Bottle 1 APPLIC TOPICAL ×3 (06:42→21:34)
[2021-03-26] MEDS: Fluticasone Propion/Salmeterol 250-50 Inhaler 1 PUFF INHALATION ×2 (06:42→17:44)
[2021-03-26] MEDS: APIXABAN 5 MG TABLET PO ×2 (08:24→17:46)
[2021-03-26] MEDS: Aspirin 81 MG TAB.CHEW PO (08:25)
[2021-03-26] MEDS: Iron Polysaccharide Complex 150 MG CAPSULE PO (08:25)
[2021-03-26] MEDS: Juven (unflavored) Packet 1 PACKET PO ×2 (08:25→17:44)
[2021-03-26 11:16] LABS: Bedside Glucose 176 mg/dL (70-110)
[2021-03-26] MEDS: Acetaminophen 500 MG Tablet PO (14:08)
[2021-03-26 14:55] VITALS: BP 166/53; PULSE 76; RESP 16; TEMP 36.5; O2SAT 97
[2021-03-26 16:51] LABS: Bedside Glucose 149 mg/dL (70-110)
[2021-03-26] MEDS: 0.9% Saline Lock 10 ML Syringe IV (17:50)
[2021-03-26] MEDS: Gabapentin 600 MG Tablet PO (21:34)
[2021-03-26 22:10] LABS: Bedside Glucose 147 mg/dL (70-110)
[2021-03-27 01:25] VITALS: BP 145/62; PULSE 68; RESP 18; TEMP 36.3; O2SAT 98
[2021-03-27] MEDS: Loperamide 2 MG Capsule 4 MG PO ×4 (05:52→23:06)
[2021-03-27] MEDS: Pantoprazole Sodium 40 MG Tablet PO ×2 (05:52→17:49)
[2021-03-27] MEDS: APIXABAN 5 MG TABLET PO ×2 (05:52→17:47)
[2021-03-27] MEDS: Gabapentin 300 MG Capsule PO ×2 (05:52→17:48)
[2021-03-27] MEDS: Nystatin Powder 15gm Bottle 1 APPLIC TOPICAL ×2 (05:53→23:06)
[2021-03-27] MEDS: Menthol/Lanolin/Calamine/Znox 113 GM Tube 1 APPLIC TOPICAL ×2 (05:53→17:47)
[2021-03-27] MEDS: Fluticasone Propion/Salmeterol 250-50 Inhaler 1 PUFF INHALATION ×2 (05:54→17:48)
[2021-03-27] MEDS: DAKIN'S SOL HALF STRENGTH (=0.25%) 1 APPLIC TOPICAL (05:55)
[2021-03-27 06:16] LABS: Bedside Glucose 114 mg/dL (70-110)
[2021-03-27] MEDS: Juven (unflavored) Packet 1 PACKET PO ×2 (08:53→17:46)
[2021-03-27] MEDS: Aspirin 81 MG TAB.CHEW PO (08:54)
[2021-03-27] MEDS: Iron Polysaccharide Complex 150 MG CAPSULE PO (08:54)
[2021-03-27] MEDS: Ondansetron ODT 4 MG Tablet PO ×2 (09:01→17:56)
[2021-03-27] MEDS: Acetaminophen 500 MG Tablet PO (09:03)
[2021-03-27 11:21] LABS: Bedside Glucose 133 mg/dL (70-110)
[2021-03-27] MEDS: 0.9 % NaCl (Sterile) Posiflush 10 mL IV (11:47)
--- NOTE | 2021-03-27 11:52 | NURSING ---
PT HAS HEADACHE AND NAUSEA. PRN ZOFRAN AND TYLENOL GIVEN. PT REF [facility]SE [facility]AR[facility]. PT HAS NOT ATE BREAKFAST. RN AWARE
--- NOTE | 2021-03-27 13:13 | NURSING ---
family updated at visit
[2021-03-27 15:24] VITALS: BP 141/79; PULSE 66; RESP 20; TEMP 36.8; O2SAT 98
[2021-03-27 17:05] LABS: Bedside Glucose 145 mg/dL (70-110)
--- NOTE | 2021-03-27 17:17 | NURSING ---
Notified Dr. Ivy of pt requesting ultram instead of norco, d/t norco making her sick. Received order for Ultram 50mg q6hr PRN and stop Richardson. Order repeated back.
[2021-03-27] MEDS: guaiFENesin 600 MG Tablet 1200 MG PO (17:48)
[2021-03-27] MEDS: traMADol 50 MG Tablet PO (17:55)
[2021-03-27 21:55] LABS: Bedside Glucose 152 mg/dL (70-110)
[2021-03-27] MEDS: Gabapentin 600 MG Tablet PO (23:07)
[2021-03-28 05:00] VITALS: BP 103/52; PULSE 67; RESP 18; TEMP 36.1; O2SAT 97
[2021-03-28] MEDS: Fluticasone Propion/Salmeterol 250-50 Inhaler 1 PUFF INHALATION ×2 (05:48→17:29)
[2021-03-28] MEDS: Pantoprazole Sodium 40 MG Tablet PO ×2 (05:48→17:32)
[2021-03-28] MEDS: Loperamide 2 MG Capsule 4 MG PO ×4 (05:48→19:37)
[2021-03-28] MEDS: Nystatin Powder 15gm Bottle 1 APPLIC TOPICAL ×3 (05:48→19:38)
[2021-03-28] MEDS: guaiFENesin 600 MG Tablet 1200 MG PO ×2 (05:48→17:32)
[2021-03-28] MEDS: APIXABAN 5 MG TABLET PO ×2 (05:48→17:31)
[2021-03-28] MEDS: Gabapentin 300 MG Capsule PO ×2 (05:48→17:32)
[2021-03-28] MEDS: Menthol/Lanolin/Calamine/Znox 113 GM Tube 1 APPLIC TOPICAL ×2 (05:49→17:31)
[2021-03-28 06:36] LABS: Bedside Glucose 156 mg/dL (70-110)
[2021-03-28] MEDS: Juven (unflavored) Packet 1 PACKET PO ×2 (08:58→17:29)
[2021-03-28] MEDS: Iron Polysaccharide Complex 150 MG CAPSULE PO (08:58)
[2021-03-28] MEDS: Aspirin 81 MG TAB.CHEW PO (08:59)
[2021-03-28 10:00] VITALS: PULSE 68; RESP 18; O2SAT 98
--- NOTE | 2021-03-28 10:30 | PCA ---
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 I assessed the green bag pt was vomiting in and it was a brownish/yellow thin liquid consistency. pt said that it happened when she raised her head up from a supine position, she felt a little light headed referring it to a motion sickness feeling. handed pt a new green bag a cool wash cloth and mouth wash to rinse out her mouth. pt washed her face, swished mouthwash around and said that she felt better. she was going to try and eat some breakfast. i exited the room and reported the incident to the RN Pamela and KRISTEL Orosco.
[2021-03-28 11:20] LABS: Bedside Glucose 124 mg/dL (70-110)
[2021-03-28] MEDS: Ondansetron ODT 4 MG Tablet PO (11:55)
[2021-03-28] MEDS: 0.9% Saline Lock 10 ML Syringe IV (11:58)
--- NOTE | 2021-03-28 12:05 | NURSING ---
PT THREW UP 500CC OF LIQUID AND FOOD. PRN ZOFRAN GIVEN. REPORTED TO RN.
[2021-03-28 14:59] VITALS: BP 118/48; PULSE 65; RESP 16; TEMP 35.9; O2SAT 98
--- NOTE | 2021-03-28 15:02 | NURSING ---
donald plasencia,family updated at visit.
[2021-03-28 17:31] LABS: Bedside Glucose 202 mg/dL (70-110)
[2021-03-28] MEDS: Gabapentin 600 MG Tablet PO (19:38)
[2021-03-28 21:25] LABS: Bedside Glucose 211 mg/dL (70-110)
[2021-03-29 05:00] VITALS: BP 106/58; PULSE 61; RESP 18; O2SAT 98
[2021-03-29] MEDS: guaiFENesin 600 MG Tablet 1200 MG PO ×2 (05:50→17:08)
[2021-03-29] MEDS: Fluticasone Propion/Salmeterol 250-50 Inhaler 1 PUFF INHALATION ×2 (05:50→17:07)
[2021-03-29] MEDS: Menthol/Lanolin/Calamine/Znox 113 GM Tube 1 APPLIC TOPICAL ×2 (05:51→17:08)
[2021-03-29] MEDS: Pantoprazole Sodium 40 MG Tablet PO ×2 (05:51→17:07)
[2021-03-29] MEDS: APIXABAN 5 MG TABLET PO ×2 (05:51→17:08)
[2021-03-29] MEDS: Nystatin Powder 15gm Bottle 1 APPLIC TOPICAL ×3 (05:51→22:33)
[2021-03-29] MEDS: Gabapentin 300 MG Capsule PO ×2 (05:51→17:08)
[2021-03-29] MEDS: Loperamide 2 MG Capsule 4 MG PO ×4 (05:51→22:32)
[2021-03-29 06:30] LABS: Bedside Glucose 142 mg/dL (70-110)
[2021-03-29] MEDS: Aspirin 81 MG TAB.CHEW PO (07:55)
[2021-03-29] MEDS: Juven (unflavored) Packet 1 PACKET PO ×2 (07:55→17:07)
[2021-03-29] MEDS: Iron Polysaccharide Complex 150 MG CAPSULE PO (07:55)
--- NOTE | 2021-03-29 09:03 | PCM.PROGNOTE ---
Subjective Subjective Patient seen and examined resting comfortably. Patient denies any new pedal complaints. Patient denies any fever, chills, chest pain, shortness of breath, cough, streaking, purulence, vomiting. Patient complains of some nausea and diarrhea. Objective Data Objective Data Vital Signs: Vital Signs Temp Pulse Resp BP Pulse Ox 96.6 F L 61 18 106/58 L 98 03/28/21 14:59 03/29/21 05:00 03/29/21 05:00 03/29/21 05:00 03/29/21 05:00 Oxygen Flow Rate (L/min) 98 Oxygen Delivery Method Room Air Weight: 71.923 kg Body Mass Index (BMI) 26.1 Orthostatic Vital Signs Start: 02/03/21 16:30 Freq: Status: Active Protocol: Activity Type Activity Date Activity User E-Sign Co-Sign Detail Recorded Client Recorded Date Recorded By Document 02/12/21 13:38 ML [id number] 02/12/21 13:39 ML 02/12/21 13:38 Orthostatic Vitals Standing -Blood Pressure (90/60-120/80) 81/44 L -Extremity Use Right Arm -Pulse Rate (60-100) 100 Sitting -Blood Pressure (90/60-120/80) 113/62 -Extremity Use Right Arm -Pulse Rate (60-100) 80 Lying -Blood Pressure (90/60-120/80) 127/61 H -Extremity Use Right Arm -Pulse Rate (60-100) 74 Intake & Output: Intake and Output for Last 24 Hours 03/27/21 03/28/21 03/29/21 23:59 23:59 23:59 Intake Total 720 / 720 480 / 480 Output Total 500 / 500 Balance 720 / 720 -20 / -20 Lab / Micro Data Result Diagrams: 03/15/21 09:10 03/15/21 09:10 Labs: Laboratory Results - last 24 hr 03/28/21 03/28/21 03/28/21 11:07 17:00 21:13 POC Glucose 124 H 202 H 211 H 03/29/21 06:18 POC Glucose 142 H Micro: Microbiology 03/25/21 12:00 Mucosa - Nose SARS-CoV-2 Antigen (Rapid) - Final 03/14/21 13:50 Urine Catheter - Catheter Urine Culture - Final Klebsiella pneumoniae sp pneum 02/18/21 15:30 Mucosa - Nose SARS-CoV-2 Antigen (Rapid) - Final 02/08/21 17:02 Interface Orders Urine Culture - Final Culture exhibits no growth. 02/06/21 15:30 Stool C. difficile DNA Amplification - Final 02/01/21 19:43 Wound Abcess - Aerobic & Anaerobic Swabs Gram Stain - Final 02/01/21 19:43 Wound Abcess - Aerobic & Anaerobic Swabs Wound Culture - Final Staphylococcus aureus 02/01/21 19:43 Wound Abcess - Aerobic & Anaerobic Swabs Anaerobic Culture - Final No anaerobic bacteria isolated. Physical Exam Const alert, oriented x3 and no apparent distress General Appearance: cooperative HEENT normocephalic Resp normal respiratory effort Extremity normal capillary refill and no calf tenderness Extremity Narrative: Negative Faith and Mchugh sign left Left transmetatarsal amputation Compartments of left lower extremity remain soft to palpate General Extremity: edema; Negative for clubbing or cyanosis Skin Skin Narrative: no purulence, no erythema, no streaking, no odor, no infection. Adjacent skin is atrophic. There are sutures intact to the left transmetatarsal amputation without large dehiscence. eschar stabilization lateral aspect of the left foot without fluctuation noted with reduced serosanguineous drainage. Sutures remain intact and skin remains well coapted. The prior blister site is now stable, well adhered, and dry and improved and smaller in size. Neuro Neuro Narrative: lack of normal epicritic sensation via light touch consistent with neuropathy Psych cooperative and affect normal Assessment & Plan Assessment/Plan (1) Wound of left foot: (2) PAD (peripheral artery disease): (3) Type 2 diabetes mellitus with diabetic polyneuropathy: QUALIFIERS: Diabetes mellitus intermediate insulin use: unspecified intermediate insulin use status Qualified Code(s): E11.42 - Type 2 diabetes mellitus with diabetic polyneuropathy PLAN: (1) Type 2 diabetes mellitus with diabetic polyneuropathy: (2) Wound of left foot: (3) Abscess of left foot: (4) Blister (nonthermal), left foot, initial encounter: (5) PAD (peripheral artery disease): (6) Non-pressure chronic ulcer of other part of left foot limited to breakdown of skin: PLAN: s/p left transmetatarsal amputation with closure (DOS 02/19/2021) -- stable and continuing to demarcate Diabetes with neuropathy Malnutrition suspected Deep venous thrombosis left posterior tibial vein Left foot infection resolved Other comorbidities: epilepsy, history of brain tumor, GERD, h/o c. diff Patient seen and examined. Sutures were questionable if ready for removal at this time. Was decided to err on the side of leaving them in another week. Will reassess in a week in the outpatient setting. Patient can be discharged prior to suture removal. Patient states that she is planning on discharge on 03-30-21 at this current time. Foot healing, is overall stable at this time. No evidence of infection. Continue with local wound care - wet to dry with betadine solution and gauze, kerlix and clarke - change every other day. Continue to pad heels well with offloading boot and ABD pads with early signs of pressure ulcer previously noted to left heel (resolving well). To maintain a non weightbearing status of left lower extremity. Reviewed the importance of this with the patient. She will continue to work with physical and occupational therapy. It is okay to touchdown on the heel only if needed for transfers on occasion. To elevate limb at rest to reduce edema / tension on amputation site. ID on consult and antibiotic management appreciated. Patient noted to be in vancomycin To continue Eliquis for treatment of acute deep venous thrombosis. Medical management per Dr. Ivy is appreciated and noted. To continue with nutritional supplementation to optimize healing; Alfredo. Podiatry will see patient weekly while in the transitional care unit. It is okay to discharge and transfer from a surgical standpoint. Discharge recommendations will be placed in the discharge document. To follow-up with Dr. Finn within 1 week of discharge in which suture removal and continued wound care treatment will be implemented at the wound healing center. Please not hesitate to call if you have any questions.
--- NOTE | 2021-03-29 10:08 | NURSING ---
Dr. Lea in today and did dressing change
[2021-03-29] MEDS: 0.9 % NaCl (Sterile) Posiflush 10 mL IV (10:33)
[2021-03-29 11:21] LABS: Bedside Glucose 125 mg/dL (70-110)
[2021-03-29 14:02] VITALS: BP 151/75; PULSE 68; RESP 17; TEMP 36.2; O2SAT 98
[2021-03-29 17:15] LABS: Bedside Glucose 190 mg/dL (70-110)
[2021-03-29 21:45] LABS: Bedside Glucose 181 mg/dL (70-110)
[2021-03-29] MEDS: Gabapentin 600 MG Tablet PO (22:32)
[2021-03-30 05:00] VITALS: BP 119/62; PULSE 67; RESP 18; TEMP 36.6; O2SAT 97
[2021-03-30] MEDS: Gabapentin 300 MG Capsule PO (05:14)
[2021-03-30] MEDS: APIXABAN 5 MG TABLET PO (05:14)
[2021-03-30] MEDS: Loperamide 2 MG Capsule 4 MG PO (05:15)
[2021-03-30] MEDS: Pantoprazole Sodium 40 MG Tablet PO (05:15)
[2021-03-30] MEDS: Fluticasone Propion/Salmeterol 250-50 Inhaler 1 PUFF INHALATION (05:15)
[2021-03-30] MEDS: guaiFENesin 600 MG Tablet 1200 MG PO (05:15)
[2021-03-30] MEDS: Menthol/Lanolin/Calamine/Znox 113 GM Tube 1 APPLIC TOPICAL (05:17)
[2021-03-30] MEDS: Nystatin Powder 15gm Bottle 1 APPLIC TOPICAL (05:18)
[2021-03-30] MEDS: Aspirin 81 MG TAB.CHEW PO (08:34)
[2021-03-30] MEDS: Ondansetron ODT 4 MG Tablet PO (08:35)
[2021-03-30] MEDS: Iron Polysaccharide Complex 150 MG CAPSULE PO (08:35)
[2021-03-30] MEDS: Juven (unflavored) Packet 1 PACKET PO (08:35)
--- NOTE | 2021-03-30 09:39 | NURSING ---
Pt report called to [facility] to Kristina PUENTE
[2021-03-30 10:20] VITALS: BP 119/62; PULSE 67; RESP 18; TEMP 36.6; O2SAT 97
[2021-03-30 11:38] LABS: Bedside Glucose 131 mg/dL (70-110)
== END 2021-03-30 10:15 | DRG 560 ==
PROVIDERS: Internal Medicine; Podiatrist; Admitting Provider Family Medicine Geriatric Medicine; PCP Family Medicine; Visit Provider Family Medicine Geriatric Medicine
DX: Z47.81 Encounter for orthopedic aftercare following surgical amputation (principal); L03.116 Cellulitis of left lower limb; M86.172 Other acute osteomyelitis, left ankle and foot; N39.0 Urinary tract infection, site not specified; A04.72 Enterocolitis due to Clostridium difficile, not specified as recurrent; I82.442 Acute embolism and thrombosis of left tibial vein; L02.612 Cutaneous abscess of left foot; E11.621 Type 2 diabetes mellitus with foot ulcer; E11.51 Type 2 diabetes mellitus with diabetic peripheral angiopathy without gangrene; E11.42 Type 2 diabetes mellitus with diabetic polyneuropathy; B96.1 Klebsiella pneumoniae [K. pneumoniae] as the cause of diseases classified elsewhere; Z89.422 Acquired absence of other left toe(s); B95.61 Methicillin susceptible Staphylococcus aureus infection as the cause of diseases classified elsewhere; K21.9 Gastro-esophageal reflux disease without esophagitis; M47.812 Spondylosis without myelopathy or radiculopathy, cervical region; E11.69 Type 2 diabetes mellitus with other specified complication; L97.521 Non-pressure chronic ulcer of other part of left foot limited to breakdown of skin; J45.909 Unspecified asthma, uncomplicated; B35.4 Tinea corporis; M47.816 Spondylosis without myelopathy or radiculopathy, lumbar region; G40.909 Epilepsy, unspecified, not intractable, without status epilepticus; Z86.011 Personal history of benign neoplasm of the brain; Z79.899 Other long term (current) drug therapy; Z79.4 Long term (current) use of insulin; D50.9 Iron deficiency anemia, unspecified; K86.89 Other specified diseases of pancreas; S90.822A Blister (nonthermal), left foot, initial encounter; X58.XXXA Exposure to other specified factors, initial encounter; Y93.9 Activity, unspecified; Y92.129 Unspecified place in nursing home as the place of occurrence of the external cause; Y99.9 Unspecified external cause status
CPT/HCPCS: 36415; 36430; 36569; 71045; 73610; 73630; 74018; 80048; 80053; 81001; 82962; 85014; 85018; 85025; 85652; 86140; 86850; 86900; 86901; 86920; 86922; 87070; 87075; 87077; 87086; 87088; 87186; 87205; 87426; 87493; 87635; 87640; 93005; 93926; 93971; 97110; 97116; 97162; 97165; 97530; 97535; 97542; 97802; J2020; J2185; J7040; J7050; J7120; P9016; A4216; J1940; U0002

== ENCOUNTER → 2021-02-01 18:15 | Outpatient (CLI) | payer MEDICARE, SELFPAY ==
[2021-01-30 15:44] VITALS: BMI 26.1
== END ==
PROVIDERS: Referring Provider Podiatrist; Visit Provider Podiatrist
DX: L02.612 Cutaneous abscess of left foot (principal)

== ENCOUNTER → 2021-02-01 18:18 | Outpatient (CLI) | payer MEDICARE, SELFPAY ==
[2021-01-30 15:44] VITALS: BMI 26.1
--- NOTE | 2021-02-01 18:25 | MRI_ITS ---
STUDY: MRI LEFT MIDFOOT REASON FOR EXAM: Female, 65 years old. LEFT FOOT OSTEO AND ABCESS TECHNIQUE: Standardized fat and water weighted pulse sequences were obtained in all 3 orthogonal planes. COMPARISON: X-ray 02/01/2021. FINDINGS: Plantar ulceration at the third metatarsal level. No obvious collection. Moderate dorsal soft tissue edema. Prior amputation of the second and third digits at the metatarsophalangeal joints. Marrow signal shows no fracture, bone contusion or osteonecrosis. Mild degenerative changes are noted at the navicular-cuneiform joint. Joint spaces are otherwise well-maintained. Normal Lisfranc ligament. Visualized flexor and extensor tendons are intact. MRI/Lower Ext/No Jt/w/o IMPRESSION: 1. No demonstrated osteomyelitis or soft tissue collection. 2. Mild degenerative changes of the navicular-cuneiform joint. 3. Soft tissue swelling. Electronically Signed: Joan Leon MD at 21:39 EDT Tel , Service support ,
--- NOTE | 2021-02-01 18:25 | MRI_ITS ---
STUDY: MRI LEFT ANKLE WITHOUT CONTRAST REASON FOR EXAM: Female, 65 years old. LEFT ANKLE ABCESS INFECTION/ HINDFOOT TECHNIQUE: Standardized fat and water weighted pulse sequences were obtained in all 3 orthogonal planes. COMPARISON: X-ray 02/01/2021. FINDINGS: Moderate edema in the plantar soft tissues and plantar muscles. No soft tissue collection. Small ankle joint effusion. Small subtalar joint effusion. Joint spaces are otherwise well-maintained. Marrow signal is normal. No fracture, bone contusion, or osteonecrosis. No evidence of hindfoot osteomyelitis. Normal posterior tibialis tendon. Normal flexor digitorum longus tendon. Normal flexor hallucis longus tendon. Normal peroneus longus and brevis tendons. Normal tibialis anterior tendon. Normal extensor hallucis longus tendon. Normal extensor digitorum longus tendons. Thickening of the Achilles tendon is consistent with chronic tendinosis. Very small longitudinal partial tear measures 2.5 cm in length, extending to 2 cm above the calcaneal insertion. Insertion is intact. Normal plantar fascia. Normal distal tibiofibular syndesmotic ligamentous complex. Normal lateral ligamentous complex. Normal subtalar ligaments and sinus tarsi. Normal deltoid ligamentous complexes. Normal plantar calcaneonavicular (spring) ligament. MRI/Lower Ext Joint Only (Routine) IMPRESSION: 1. Soft tissue edema in the plantar soft tissues and muscles without organized collection. 2. Chronic Achilles tendinosis with small partial tear. 3. Small ankle and subtalar joint effusions. Electronically Signed: Joan Leon MD at 21:29 EDT Tel , Service support ,
== END ==
PROVIDERS: PCP Internal Medicine; Visit Provider Podiatrist
DX: L02.612 Cutaneous abscess of left foot (principal)
CPT/HCPCS: 73718; 73721

== ENCOUNTER 2021-02-02 13:15 | Day surgery (SDC) | payer MEDICARE, SELFPAY ==
[2021-01-30 15:44] VITALS: BMI 26.1
--- NOTE | 2021-02-02 08:00 | HP_ITS ---
Problem List (1) Abscess of left foot Status: Acute (2) Type 2 diabetes mellitus with diabetic polyneuropathy Status: Chronic (3) Osteomyelitis of left foot Status: Suspected Reason for Consult Date of Consultation: 02/01/21 Reason for Consultation: left foot infection History of Present Illness: The patient is a 65 year old F with multiple comorbidities was seen bedside this evening for a left foot wound with infection. She had a prior second toe amputation and third ray resection performed at [facility] in [place] on 01-26-2021 by another physician. She had a wound VAC placed and was next transferred to the transitional care unit here for rehabilitation and wound care prior to discharge home with her . She relates she noticed rapid swelling within the past day and it is not clear on the exact onset due to her neuropathy. She denies pain. She denies fever or chills. She does have loss of appetite and nausea. She denies foot odor. She had a wound VAC recently removed with infectious drainage. It is noted that she was previously on imipenem and linezolid while at the previous hospital and then was transitioned to doxycycline and ciprofloxacin at discharge. She was seen by infectious disease at the other facility. Past Medical History Past Medical History (Chronic Problems): Chronic Problems Diabetic foot ulcer (Chronic) Diabetes mellitus (Chronic) Brain tumor (benign) (Chronic) Chronic diarrhea (Chronic) Epilepsy (Chronic) Mitral valve prolapse (Chronic) Diabetic neuropathy (Chronic) 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) Gastroesophageal reflux disease (Chronic) Type 2 diabetes mellitus with diabetic polyneuropathy (Chronic) Tubal ligation status (Chronic) History of pneumonia (Chronic) Obesity (Chronic) Migraine (Chronic) Disc degeneration (Chronic) Asthma (Chronic) Allergies cefprozil Allergy (Verified 01/30/21 16:55) Shortness of breath ceftriaxone Allergy (Verified 01/30/21 16:55) Hives clindamycin Allergy (Verified 01/30/21 16:55) Rash enalapril Allergy (Verified 01/30/21 16:55) Other enoxaparin Allergy (Verified 01/30/21 16:55) Rash heparin Allergy (Verified 01/30/21 16:55) Rash levalbuterol Allergy (Verified 01/30/21 16:55) Other morphine Allergy (Verified 01/30/21 16:55) Shortness of breath Penicillins Allergy (Verified 01/30/21 16:55) Anaphylaxis shellfish derived Allergy (Verified 01/30/21 16:55) Anaphylaxis valsartan Allergy (Verified 01/30/21 16:55) Other vancomycin Allergy (Verified 01/30/21 16:55) Rash Home Medications: Ambulatory Orders Medication Instructions Recorded Albuterol IH (ProAir) [Proair Hfa 1 puff INHALATION Q4H PRN PRN 01/30/21 (SP)Vent Pts] Budesonide/Formoterol Fumarate 2 puff IH BID 01/30/21 [Budesonide-Formoterol 160-4.5] Ciprofloxacin [Cipro] 500 mg PO BID 01/30/21 Doxycycline 100 mg PO BID 01/30/21 Gabapentin 300 mg PO BID 01/30/21 Gabapentin [Neurontin] 600 mg PO QHS 01/30/21 Guaifenesin [Mucinex] 1,200 mg PO BID 01/30/21 Insulin NPH Human Isophane 100 units SC DAILY 01/30/21 [Humulin N Kwikpen] Lactobacillus Acidophilus 1 each PO DAILY 01/30/21 [Acidophilus] Lansoprazole [Prevacid] 15 mg PO BID 01/30/21 Lansoprazole [Prevacid] 30 mg PO DAILY 01/30/21 Loperamide HCl [Imodium A-D] 6 mg PO TID 01/30/21 Ondansetron HCl [Zofran] 4 mg PO Q6H PRN PRN 01/30/21 Tramadol HCl [Ultram] 50 mg PO Q6H PRN PRN 01/30/21 Surgical History: appendectomy, - - Left 2nd, 3rd toe amputations. 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 Denies: Chills, Fever Cardiovascular: Reports: Edema Respiratory: Denies: Shortness of Breath Gastrointestinal: Reports: Nausea, - - Loss of appetite. Denies: Vomiting Genitourinary: Denies: Dysuria Musculoskeletal: Reports: Leg Pain. Denies: Foot Pain Skin: Reports: Skin Changes, Wounds Neurological: Reports: Incoordination, Numbness Hematologic/ Lymphatic: Denies: Easy Bruising, Easy Bleeding Patient Problems: Active and Suspected Problems Debility (Acute) Cellulitis of left foot (Acute) Osteomyelitis of left foot (Suspected) Abscess of left foot (Acute) - Physical Exam Vitals/I&O's: Vital Signs Temp Pulse Resp BP Pulse Ox 97.3 F L 67 16 141/65 H 95 02/01/21 14:19 02/01/21 14:19 02/01/21 14:19 02/01/21 14:19 02/01/21 14:19 Oxygen Delivery Method Room Air Weight: 68.946 kg Body Mass Index (BMI) 26.1 Intake and Output for Last 24 Hours 01/30/21 01/31/21 02/01/21 23:59 23:59 23:59 Intake Total 320 / 320 720 / 720 390 / 390 Balance 320 / 320 720 / 720 390 / 390 General: Alert, Oriented x3, Cooperative HEENT: Atraumatic Extremities: No cyanosis, Capillary Refill Less than 3 Seconds, No Calf Tenderness, Diminished Peripheral Pulses, Edema Skin: Ulcer/ Wound - Open second toe and third ray resection with fibrous devitalized ulcer base. Fluctuant palpable abscess to plantar midfoot upon drainage there is 6 cc of purulence. No additional purulence expressed along palpation of the flexor tendons or posterior leg. Erythema extend to plantar mid to forefoot, - - There sub sulcus fibrous granular ulcers also. Her skin is atrophic and hairless. Musculoskeletal: Muscle Wasting, - - Negative Faith and Mchugh sign left. Locations left forefoot Neurological: - - Lack of epicritic sensation is consistent with neuropathic status Psych/Mental Status: Normal Affect, Appropriate Laboratory Results 01/31/21 21:13: POC Glucose 221 H 02/01/21 06:21: POC Glucose 206 H 02/01/21 10:49: POC Glucose 219 H 02/01/21 16:40: POC Glucose 178 H Current Medications Acetaminophen (Acetaminophen 500 Mg Tablet) 1,000 mg PO Q6H PRN PRN Reason: Pain Score 1-3 Albuterol Sulfate (Albuterol Sulfate 8 Gm Inhaler (60 Puffs)) 1 puff INHALATION Q4H PRN PRN PRN Reason: SHORTNESS OF BREATH Calamine/Phenol (Menthol/Lanolin/Calamine/Znox 113 Gm Tube) 1 applic TOPICAL BID [facility]; Protocol Last Admin: 02/01/21 06:28 Dose: 1 applic Documented by: Ciprofloxacin HCl (Ciprofloxacin 500 Mg Tablet) 500 mg PO BID [facility] Stop: 02/04/21 18:01 Last Admin: 02/01/21 06:23 Dose: 500 mg Documented by: Doxycycline Monohydrate (Doxycycline 100 Mg Capsule) 100 mg PO 0600,2200 [facility] Stop: 02/13/21 23:55 Last Admin: 02/01/21 06:23 Dose: 100 mg Documented by: Gabapentin (Gabapentin 300 Mg Capsule) 300 mg PO BID [facility] Last Admin: 02/01/21 06:27 Dose: 300 mg Documented by: Gabapentin (Gabapentin 600 Mg Tablet) 600 mg PO QHS [facility] Last Admin: 01/31/21 21:06 Dose: 600 mg Documented by: Guaifenesin (Guaifenesin 600 Mg Tablet) 1,200 mg PO BID [facility] Last Admin: 02/01/21 06:23 Dose: 1,200 mg Documented by: Insulin Human NPH (Insulin Nph Human 100 Units/Ml Pen) 100 units SC DAILYCM PRN PRN Reason: DAILY BLOOD GLUCOSE >300 L-Arginine/L-Glutamine/Calcium HMB ([facility] ([facility]flavored) [facility]) [facility] Last Admin: 02/01/21 08:27 Dose: 1 packet Documented by: Lactobacillus Acidophilus (Lactobacillus Acidophilus) 1 tablet PO DAILY [facility] Last Admin: 02/01/21 06:24 Dose: 1 tablet Documented by: Loperamide HCl (Loperamide 2 Mg Capsule) 4 mg PO 4X/DAY [facility] Last Admin: 02/01/21 11:46 Dose: 4 mg Documented by: Nystatin (Nystatin Powder 15gm Bottle) 1 applic TOPICAL TID [facility]; Protocol Last Admin: 02/01/21 13:24 Dose: 1 applic Documented by: Ondansetron HCl (Ondansetron Odt 4 Mg Tablet) 4 mg PO Q6H PRN PRN PRN Reason: NAUSEA Pantoprazole Sodium (Pantoprazole Sodium 40 Mg Tablet) 40 mg PO BID [facility] Last Admin: 02/01/21 06:23 Dose: 40 mg Documented by: Polysaccharide Iron Complex (Iron Polysaccharide Complex 150 Mg Capsule) [facility] Last Admin: 02/01/21 08:27 Dose: 150 mg Documented by: Fluticasone/Salmeterol (Fluticasone/Salmeterol 232-14 Inhaler) 1 puff INHALATION Q12 [facility] Last Admin: 02/01/21 06:23 Dose: 1 applic Documented by: Sodium Hypochlorite (Dakin's Ritika Half Strength (=0.25%)) 1 applic TOPICAL DAILY [facility]; Protocol Tramadol HCl (Tramadol 50 Mg Tablet) 50 mg PO Q6H PRN PRN PRN Reason: Pain Score 4-10 Tuberculin PPD (Tuberculin,Purif.Prot.Deriv. 50 Tu/Ml Vial) 5 tu ID X1 ONE Stop: 02/07/21 10:01 Assessment/Plan All Active Problems Debility (Acute) Cellulitis of left foot (Acute) Abscess of left foot (Acute) Left midfoot abscess Left status post second toe and third ray resection with infection Diabetes with neuropathy Suspect peripheral vascular disease Other comorbidities: Epilepsy, history of brain tumor, GERD I reviewed and discussed her case. She does have leukocytosis with elevated white blood cell count of 11.5. She has elevated ESR 46. She remains afebrile with vital signs stable. Foot x-rays were reviewed (AP, lateral, oblique) per no acute fracture dislocation. She had prior second toe amputation and third ray resection. There is no additional new soft tissue emphysema or osseous destruction. Edema is noted. Also her small vessels appear to be calcified. Ankle x-rays were ordered and pending. She has a palpable abscess to the plantar midfoot and verbal consent was obtained for bedside drainage. I recommend this to immediately decompress this infection area. Alcohol preparation was performed and a 15 blade scalpel was used to make an incision (2.5 cm) to the plantar midfoot in which approximately 8 cc of purulent drainage was expressed. There was no odor. Deep wound cultures was obtained and sent for aerobic, anaerobic, MRSA PCR. Pressure was applied to maintain hemostasis. No pulsatile bleeding was noted. This area was packed with Betadine wet-to-dry gauze as was the open amputation site. She tolerated this very well and denies pain due to her neuropathy status. It is noted she is on doxycycline and ciprofloxacin. I have requested her medical files from [facility] including prior imaging studies, surgical intervention, microbiology, pathology, and care plans. It is noted she was previously on imipenem and linezolid. I recommend resuming IV broad-spectrum antibiotics until additional intraoperative culture results are obtained and infection improvement is noted. I recommend operating room additional drainage, debridement including potential additional foot amputation pending operating room availability. Ordered MRI to confirm osteomyelitis or additional abscess in the hindfoot level. This is a limb and life threatening infection. I recommend operating room intervention. The indications, benefits, risk, complications, anticipated management were reviewed. She understands this may be a staged procedure. The tentative plan includes additional incision and drainage of the foot and possible ankle/leg with open amputation of the foot. Surgical consents will be signed. Orders will be placed for her to be n.p.o. at midnight, and anticoagulation medication held. She had a Covid negative test upon arrival two days ago and this is noted. I answered her questions. Noninvasive vascular studies are also of interest however will not be able to be completed due to the purulent status of her forefoot. This will be obtained postoperative prior to any future staged procedures. This case was discussed with admitting physician, Dr. Ivy in regards to her recommended surgical intervention and current stability. Additional preoperative EKG was also ordered. Thank you for the consultation. Please not hesitate to call with any questions. Stacie Finn DPM, [facility] [phone]
[2021-02-02 11:09] VITALS: BP 142/58; PULSE 64; RESP 16; TEMP 36.9; O2SAT 97; BMI 26.0
--- NOTE | 2021-02-02 12:00 | FOOT_PTH ---
PATIENT: [place] LOC: [facility] U#:[id number] AGE/SX: 65/F ROOM: RE02/02/[address]: Dr. Stacie Finn DPM : 1955 BED: DIS: 02/02/2021 SPEC #: [id number] RECD: 02/02/21 14:26 STATUS: MLAIA REMerlene #: [id number] [place]: 02/02/21 12:[address]: Stacie Finn DEPT: SURGICAL PATHOLOGY RECD BY: Ludmila Hernandez ENTERED: 02/03/21 08:41 SP TYPE: FOOT OTHR DR: Dr. Cammie Erazo MD Tissues: Foot, NOS Procedures: Decalcification bone/plaque Special Stain Group I Surgery Specimen Level III Surgery Specimen Level IV AFB Stain (control) GMS Stain (control) HEADER OPERATION: Soft tissue and bone debridement including forefoot amputation PRE-OP DIAGNOSIS: Cellulitis of left foot; osteomyelitis of left foot TISSUE SUBMITTED: A - Infected tissue left foot, B - Clearance fragment MICROSCOPIC DIAGNOSIS A. Left foot, forefoot amputation: Focal ulceration and extensive acute inflammation and abscess formation. Underlying bone with chronic inflammation and reactive changes, negative for acute osteomyelitis. See comment. B. Clearance fragment: A piece of bone, negative for acute osteomyelitis. SJ:rg 02/08/2021 COMMENT A. Special stains for acid fast bacilli and fungi are negative for organisms; matched controls are appropriate. MICROSCOPIC DESCRIPTION Slides are reviewed. GROSS DESCRIPTION A - Received in fixative is one container labeled with the patient's name and designated infected tissue left foot. The specimen consists of a portion of foot containing two toes measuring 7 x 4 x 4 cm. An extensive area of ulceration is noted. The nails appear atrophic. Sanding Line Operator sections are submitted as follows: 1 & 2 - ulcerated area, 3-6 - bone after decalcification. B - Received in fixative is one container labeled with the patient's name and designated clearance fragment. The specimen consists of a piece of bone measuring 0.9 x 0.2 x 0.1 cm. The entire specimen is submitted in one cassette after decalcification. / SJ:hugo 02/03/21 TC:2 CPT: 59875, 57477, [id number] x2, 69787 x2
--- NOTE | 2021-02-02 12:12 | RAD_ITS ---
STUDY: X-RAY - LEFT FOOT CLINICAL: Female, 65 years old. LF. LATERAL FOOT PARTIAL AMPUTATION TECHNIQUE: 3 images obtained at the level of the mid anterior foot during procedure with visualization of 6 amputation of the second through fifth toes from the mid proximal metatarsal bones. Fluoroscopic guidance was provided for operative procedure. Total images saved are: 3. The total exposure time is 0 minutes and 4 seconds. COMPARISON: None. FINDINGS: Amputation of the second through fifth digits from the mid proximal metatarsal bones noted. The first foot reveals mild degenerative disease at the distal interphalangeal joint otherwise unremarkable. The soft tissue structures are unremarkable. RAD/Foot min 3 Views IMPRESSION: Fluoroscopic guidance provided for amputation procedure as described above. For details please see operative report. Electronically Signed: Natividad Vo MD at 0:19 EDT , Service support ,
--- NOTE | 2021-02-02 13:40 | OP_ITS ---
Problem List (1) Abscess of left foot Status: Acute (2) Type 2 diabetes mellitus with diabetic polyneuropathy Status: Chronic (3) Osteomyelitis of left foot Status: Suspected Report of Operation Date of Procedure: 02/02/21 Pre-Operative Diagnosis: Left foot infection with abscess infectious myositis Post-Operative Diagnosis: Left foot infection with abscess infectious myositis Surgery/Procedure Performed:: Debridement of nonviable soft tissue and bone including open 2, 3, 4, 5 ray resection left foot. Incision and drainage dorsal foot and plantar arch extending into the hindfoot Description of Surgical Findings:: Hemostasis: Well-padded pneumatic mid left leg tourniquet, 250 mmHg, 40 minutes Materials: 2-0 Vicryl Specimens sent and results pending Postoperative x-rays were reviewed prior to leaving the operating room as noted Complications none The patient tolerated the procedure and anesthesia well. She was transported to the PACU with vital signs stable and vascular status intact to the left lower extremity as compared to the preoperative status. She will be transferred back to the transitional care unit upon continued stability. She was advised to ice and elevate for pain and inflammation management. To keep the dressing clean, dry, and intact. To continue on IV antibiotics. Pain medications were ordered. I will continue to follow her closely while in house. ground mixer: yes - Surgeon: Stacie Finn DPM. Quality Assurance Supervisor Final: Tash Lawson DPM, PGY3 Type of Anesthesia:: Local - post operative: 20 cc of one-to-one mixture of 1% lidocaine plain and 0.5% Marcaine plain administered in typical left ankle block fashion, MAC Specimen's removed: 1. Infected left foot tissue sent to pathology. 2. Infected left foot tissue sent to microbiology (aerobic, anaerobic, acid-fast, fungal). 3. Metatarsal clearance fragment sent to pathology. 4. Metatarsal clearance fragment sent to microbiology (aerobic, anaerobic, acid-fast, fungal) Estimated Blood Loss (mL): < 200 mL Description of Procedure: Indications: This 65-year-old female with significant past medical history of diabetes with neuropathy, epilepsy, mitral valve prolapse, obesity, migraines, reported history of C. difficile, prior history of substance abuse, and asthma was seen for left foot infection in the transitional care unit. She had prior open second toe amputation with third ray resection at [facility] with subsequent wound care with vac therapy. She was recently transition to [facility] transitional care unit for wound care and rehabilitation prior to return home with . She had developed increased pain, redness, and swelling to the left foot in which a lower limb infection was identified. She had copious amounts of purulent drainage expressed during initial evaluation coming from both the open amputation site and also the plantar central midfoot. Her white blood cell count is slightly elevated to 11.5. It is noted she had sepsis while at [facility] with a white blood cell count of over 27. She remains nonseptic at this time. Nonweightbearing foot and ankle x-rays did not demonstrate any osseous destruction, soft tissue emphysema, or acute fractures or dislocations. MRIs of the foot and ankle were reviewed including the reports and individual imaging series. She did not demonstrate distinct residual osteomyelitis however there is increased signal intensity in all of the intrinsic muscles of dorsal and plantar midfoot and forefoot consistent with infectious myositis. There is also an area previously drained abscess noted in the plantar central midfoot from her initial consultation performed yesterday. No evidence of Charcot. There was no distinct osteomyelitis identified via MRI except questionably at the resected third metatarsal distalmost aspect with decreased intensity on the T1 corresponding with increased intensity on the T2. Per my additional interpretation there is fluid collection around the flexor tendons at the retromalleoli ankle level and does not appear to be in direct track with the foot infection component. The plan was to investigate this intraoperative. Preoperative indications, planned procedure, possible benefits, risk, complications, and anticipated healing time and management were reviewed and discussed with the patient. She understands elects to proceed with surgery at this time. No guarantees were made. She understands risk and complications include but not limited to the following: Pain, swelling, scarring, need for further surgery, continued infection, delayed or nonhealing, blood clot, allergic reaction, limb contracture, chronic pain, need for long-term bracing or prosthetic, loss of limb, function, or life. She also understands this procedure is being conducted during the time of COVID-19 pandemic and there is an inherent risk with being in the hospital. She understands precautions will be taken to avoid exposure and the benefits outweigh the risks at this time. I recommend proceeding forward with surgical intervention in a timely manner. This is a nonelective limb salvage surgery. I answered all her questions. Surgical consent and limb were signed. Procedure in detail: The patient was transported to the operating room via cart and placed on the operating table in the supine position. Final verification of the patient, surgery, limb designation was performed via the timeout procedure. IV antibiotics have already been administered and she is receiving these on the transitional care unit. She is currently taking meropenem and linezolid. MAC anesthesia was initiated by the anesthesia team. A well-padded pneumatic mid left leg tourniquet was placed. The left lower extremity was prepped and draped in the usual aseptic manner. [place] exsanguination was performed the tourniquet was inflated at this time. Surgery began the following manner: Attention was first directed to the purulent open amputation site in which a fishmouth incision was made proximal to that site and around the remaining lateral forefoot. Care was taken to identify, protect, and retract all neurovascular structures of salvage at this point and throughout the remainder of surgery. Copious amounts of purulence was noted with devitalized tendons and intrinsic musculature to a non salvageable level. The digits were disarticulated at the lesser metatarsophalangeal joint levels and was removed from the table and sent to pathology. Additional incision was made dorsally tracking along the site of infectious drainage. A plantar incision was also made along the arch and flexor tendons in which at least 10 cc of additional purulent drainage was expressed from the midfoot and in the superficial fascial layer. This was carefully dissected down to the deeper muscular layer in which additional purulence was found. Any devitalized musculature, adipose tissue and tendon sheaths were debrided with rongeur. This was also sent to microbiology. At this time, proximal purulence tracking was evaluated for with a freer elevator and with expression from proximal muscle groups in which additional purulence was not identified. Copious saline irrigation was performed. Sagittal saw use to resect 2, 3, 4, fifth rays. Copious saline irrigation was again performed at this time and a clean sagittal saw was used to obtain a clearance fragment from the central metatarsal. This was sent to microbiology and also pathology. Finally, Versajet on setting 8 was used to debride any remaining devitalized tissue from the open amputation site to healthy bleeding level, and copious irrigation with normal saline was performed again. Electrocauterization on visible calcified vessels was performed. The tourniquet was deflated at this time and refill time was noted to the digits and was consistent with her preoperative status. Plantar metatarsal arteries at the midfoot level where tied off utilizing Vicryl suture. Pressure was applied and no pulsatile bleeding was noted at this point. The remaining tissue did not have any additional purulence, necrosis, or odor. The postoperative local anesthetic was administered at the ankle level proximal to the infection zone at this time. The first ray including the hallux was left temporarily intact. This is a planned staged procedure. After the infection drains and salvageable tissue is demarcated, full versus partial closure of transmetatarsal amputation is planned in which soft tissue and skin from the first ray may be used to cover some of the lateral exposed structures in a flaplike manner. Gelfoam was placed over the plantar midfoot and additional Betadine wet-to-dry gauze were packed. Additional Kerlix, abdominal pad, gauze, and Demetrio wrap were applied in a layered manner for the dressing. After procedure: The patient tolerated the procedure and anesthesia well. She was transported to the PACU with vital signs stable and vascular status intact to the left lower extremity. To ice and elevate for pain and inflammation management. Pain medications were ordered. It is noted she has tolerated Percocet in the past. Tramadol will not be provided at this time while she is taking linezolid to avoid serotonin syndrome. She was advised to maintain a strict nonweightbearing status to left lower extremity. To keep her dressing clean, dry, and intact. Postoperative x-rays were taken prior to leaving the operating room with adequate resection of the infected tissue without acute injuries, soft tissue emphysema, or foreign body. Lateral beveled ray resections of 2,3,4 and 5 is noted. Staged procedure after initial infection is considered controlled is planned. To continue on IV antibiotics including meropenem and linezolid. Infectious diseases on consult and appreciated. Her noninvasive vascular studies from [facility] were reviewed from 01-29-2021 in which nonocclusive vessels were identified with calcification noted. Arterial insufficiency was not suspected based off of PVR and doppler findings. Her toe brachial index was not calculated due to patient movement. Her medical records from [facility] have been reviewed in paper format. Medical management and DVT prophylaxis per transitional care unit physician, Dr. Ivy is appreciated. Lab trends will be monitored for infection and postoperative stability. She will be transferred back to the transitional care unit upon continued stability. Postoperative orders were entered. I will follow her closely while in transitional care unit. Stacie Finn DPM, [facility] [place] [phone] Grafts/Implants Used: none - Complications none - Admit VTE Documentation VTE Present on Admission: Yes VTE Mechan Device Prophylaxis: SCD's VTE Pharm Prophylaxis ordered?: Yes
[2021-02-02 13:46] VITALS: BP 115/68; BP 142/58; PULSE 66; RESP 16; TEMP 36.1; O2SAT 96
[2021-02-02 14:00] VITALS: BP 115/60; BP 142/58; PULSE 72; RESP 16; O2SAT 95
[2021-02-02 14:15] VITALS: BP 142/58; BP 146/68; PULSE 59; RESP 16; TEMP 36.1; O2SAT 96
--- NOTE | 2021-02-02 14:41 | DCINST_ITS ---
Discharge Diet: Carb Control Diet, - - merlyn nutritional supplementation Discharge Activity: Use Walker Weight Bearing Status: No weight bearing Keep extremity elevated above heart level: Left Leg Call your doctor if your incision/area has: Continuous Slow Oozing, Sudden Increased Bleeding, Increased Pain/ Swelling, Increased Redness, Foul Smelling Discharge, Swelling at the incision site Call your doctor if you observe: Fever of 101 or Higher, Calf discomfort, Uncontrolled pain Cleanse incision/area with: Keep Dressing Clean & Dry Allergies/Adverse Reactions: Allergies cefprozil Allergy (Verified 02/02/21 11:23) Shortness of breath ceftriaxone Allergy (Verified 02/02/21 11:23) Hives clindamycin Allergy (Verified 02/02/21 11:23) Rash enalapril Allergy (Verified 02/02/21 11:23) Other enoxaparin Allergy (Verified 02/02/21 11:23) Rash heparin Allergy (Verified 02/02/21 11:23) Rash levalbuterol Allergy (Verified 02/02/21 11:23) Other morphine Allergy (Verified 02/02/21 11:23) Shortness of breath Penicillins Allergy (Verified 02/02/21 11:23) Anaphylaxis shellfish derived Allergy (Verified 02/02/21 11:23) Anaphylaxis valsartan Allergy (Verified 02/02/21 11:23) Other vancomycin Allergy (Verified 02/02/21 11:23) Rash Medications to take at Discharge Albuterol IH (ProAir) [Proair Hfa (SP)Vent Pts] 1 puff INHALATION Q4H PRN PRN 01/30/21 Budesonide/Formoterol Fumarate [Budesonide-Formoterol 160-4.5] 2 puff IH BID 01/30/21 Ciprofloxacin [Cipro] 500 mg PO BID 01/30/21 Doxycycline 100 mg PO BID 01/30/21 Gabapentin 300 mg PO BID 01/30/21 Gabapentin [Neurontin] 600 mg PO QHS 01/30/21 Guaifenesin [Mucinex] 1,200 mg PO BID 01/30/21 Insulin NPH Human Isophane [Humulin N Kwikpen] 100 units SC DAILY 01/30/21 Lactobacillus Acidophilus [Acidophilus] 1 each PO DAILY 01/30/21 Lansoprazole [Prevacid] 15 mg PO BID 01/30/21 Lansoprazole [Prevacid] 30 mg PO BID 01/30/21 Loperamide HCl [Imodium A-D] 6 mg PO TID 01/30/21 Ondansetron HCl [Zofran] 4 mg PO Q6H PRN PRN 01/30/21 Tramadol HCl [Ultram] 50 mg PO Q6H PRN PRN 01/30/21 Primary Care Physician: Cammie Erazo MD [Primary Care Provider] - Test Results: Test results from this visit will be discussed in further detail at your follow- up appointment, if applicable. Please Follow Up With: Stacie Finn DPM When: will follow you while in transitional care unit Proposed Discharge Date: 02/02/21
[2021-02-02] MEDS: Ondansetron 4 MG/2 ML Vial IV (15:03)
[2021-02-02] MEDS: oxyCODONE 5 MG Tablet PO (15:03)
[2021-02-02 15:14] VITALS: BP 138/67; BP 142/58; PULSE 61; RESP 18; TEMP 36.7; O2SAT 100
== END 2021-02-02 15:22 | disposition skilled nursing facility (03) ==
LOC: SDC 13:18 → AC 13:19
PROVIDERS: PCP Internal Medicine; Referring Provider Podiatrist; Visit Provider Podiatrist
PROC: (CPT 28820; principal; 2021-02-02 11:45)
DX: L02.612 Cutaneous abscess of left foot (principal); E11.42 Type 2 diabetes mellitus with diabetic polyneuropathy; M60.074 Infective myositis, left foot; K21.9 Gastro-esophageal reflux disease without esophagitis; J45.909 Unspecified asthma, uncomplicated; Z79.899 Other long term (current) drug therapy; Z79.4 Long term (current) use of insulin; L03.116 Cellulitis of left lower limb; D64.9 Anemia, unspecified
CPT/HCPCS: 01480; 28820 ×4; 73630; 76000; 87015; 87070; 87075; 87077; 87102; 87116; 87186; 87205; 87206; 88304; 88305; 88307; 88311; 88312; J2405

== ENCOUNTER → 2021-02-05 09:29 | Outpatient (CLI) | payer MEDICARE, OTHER, SELFPAY ==
[2021-02-02 11:09] VITALS: BMI 26.0
--- NOTE | 2021-02-05 10:03 | ADUL_ITS ---
Reason For Study: Wounds Left Velocities Ext Iliac Artery, dist = 107 cm./sec. Common Femoral Artery, mid = 91 cm./sec. Supf. Femoral Artery, prox = 143 cm./sec. Supf. Femoral Artery, mid = 138 cm./sec. Supf. Femoral Artery, dist = 116 cm./sec. Profunda Femoral Artery = 132 cm./sec. Popliteal Artery, proximal, = 107 cm./sec. Popliteal Artery, mid = 97 cm./sec. Popliteal Artery, distal = 92 cm./sec. Post. Tibial Artery, prox = 91 cm./sec. Post Tibial Artery, mid = 85 cm./sec. Post Tibial Artery, dist. = 134 cm./sec. Peroneal Artery, prox = 64 cm./sec. Peroneal Artery, mid = 82 cm./sec. Peroneal Artery,dist. = 76 cm./sec. Ant.Tibial Artery, prox = 89 cm./sec. Ant Tibial Artery, mid = 70 cm./sec. No distal BROOKE due to bandages INCIDENTAL FINDING: Lt PTV is dilated and partially compressible consistent with acute DVT. Procedure Exam performed portable in patient room. VL/US Art Duplex Unilat Lower Ext Interpretation Summary Left leg with no stenosis where visualized. There is triphasic flow throughout. Incidental finding calf DVT. Ordering Physician: Stacie Finn Referring Physician: Cammie Erazo Performed By: Elaine Aponte, SAUL, RVT
== END ==
PROVIDERS: PCP Internal Medicine; Referring Provider Podiatrist; Visit Provider Podiatrist
DX: E13.59 Other specified diabetes mellitus with other circulatory complications (principal)
CPT/HCPCS: 93926

== ENCOUNTER → 2021-02-18 09:08 | Outpatient (CLI) | payer MEDICARE, OTHER, SELFPAY ==
[2021-02-02 11:09] VITALS: BMI 26.0
--- NOTE | 2021-02-18 10:18 | VDLE_ITS ---
Reason For Study: Pain in lt leg Procedure LEFT This is a venous duplex using B-mode, color GSV is normal. flow and spectral Doppler. CFV is compressible, spontaneous, phasic, Exam performed portable in patient room. competent, and demonstrates normal Compared to 02/05/21. augmentation. A preliminary report was called and/or faxed FV is compressible, spontaneous, phasic, to TCU. competent and demonstrates normal augmentation. POP V is compressible, spontaneous, phasic, competent and demonstrates normal augmentation. T/P Trunk is compressible. LT PerV is compressible. PTV is partially compressible and dilated at mid calf. consistent with acute DVT. VL/Venous Duplex US, Unilateral Interpretation Summary Acute deep venous thrombosis left posterior tibial vein mid calf. Small amount of echogenic material left popliteal vein possibly consistent with chronic disease Ordering Physician: Stacie Finn Referring Physician: Cody Billings Performed By: Hilda Nava RVT and Student
== END ==
PROVIDERS: PCP Family Medicine; Visit Provider Podiatrist
DX: M79.605 Pain in left leg (principal)
CPT/HCPCS: 93971

== ENCOUNTER 2021-02-18 09:21 | Outpatient (CLI) | payer MEDICARE, OTHER, SELFPAY ==
[2021-02-18] VITALS (7 sets, daily range): BP systolic 106–158; BP diastolic 54–84; PULSE 64–72; RESP 16; TEMP 35.9–36.6; O2SAT 96–99
[2021-02-18] MEDS: Furosemide 20 MG/2 ML VIAL IV (12:36)
== END 2021-02-18 17:00 | disposition home or self-care (01) ==
PROVIDERS: PCP Family Medicine; Referring Provider Family Medicine Geriatric Medicine; Visit Provider Family Medicine Geriatric Medicine
DX: M79.605 Pain in left leg (principal)
CPT/HCPCS: 36415; 36430; 86850; 86900; 86901; 86920; 86922; 93971; J7040; P9016; A4216; J1940

== ENCOUNTER 2021-02-19 09:23 | Day surgery (SDC) | payer MEDICARE, OTHER, SELFPAY ==
[2021-02-19] VITALS (13 sets, daily range): BP systolic 113–188; BP diastolic 65–95; PULSE 61–99; RESP 16; TEMP 36.1–36.3; O2SAT 93–100; BMI 23.8
--- NOTE | 2021-02-19 | BON_PTH ---
PATIENT: [place] LOC: [facility] [place] U#:[id number] AGE/SX: 66/F ROOM: RE02/19/[address]: Dr. Stacie Finn DPM : [id number] BED: DIS: 02/19/2021 SPEC #: [id number] RECD: 02/19/21 14:24 STATUS: MALIA REMerlene #: [id number] [place]: 02/19/21 00:[address]: Stacie Finn DEPT: SURGICAL PATHOLOGY RECD BY: Daniel Tesfaye ENTERED: 02/22/21 08:14 SP TYPE: Bone OTHR DR: Dr. Cody Billings MD Tissues: Bone of foot, NOS Procedures: Decalcification bone/plaque Surgery Specimen Level IV HEADER OPERATION: Lower extremity transmetatarsal amputation with complex closure PRE-OP DIAGNOSIS: Open amputation and osteomyelitis TISSUE SUBMITTED: Left metatarsal clearance fragment MICROSCOPIC DIAGNOSIS Left metatarsal clearance fragment bone, biopsy: Chronic reparative and reactive change. No evidence of osteomyelitis. AM:hugo 02/25/2021 MICROSCOPIC DESCRIPTION Slides are reviewed. GROSS DESCRIPTION Received in fixative is one container labeled with the patient's name and designated left metatarsal clearance fragment. The specimen consists of a piece of bone measuring 1 x 0.5 x 0.3 cm. The entire specimen is submitted in one cassette after decalcification. / SJ:hugo 02/22/21 TC:5 CPT: 92954, 17577
[2021-02-19] MEDS: Lactated Ringers 1,000 ML 100 ML IV (10:06)
--- NOTE | 2021-02-19 10:10 | RAD_ITS ---
STUDY: X-RAY - LEFT FOOT CLINICAL: Female, 66 years old. LOWER EXTREMITY TRANSMETATARSAL AMPUTATION. TECHNIQUE: 3 view(s) of the foot. COMPARISON: January FINDINGS: No change second through the fifth metatarsal amputations. Interval amputation of the first metatarsal. RAD/Foot 2 Views IMPRESSION: New amputation first metatarsal. Electronically Signed: Rio Spears MD at 23:41 EDT , Service support ,
[2021-02-19] MEDS: Bupivacaine Mpf 0.5% 30 ML VIAL (10:50)
[2021-02-19] MEDS: Lidocaine 1% (30 ml sdv) 30 ML Vial (10:50)
--- NOTE | 2021-02-19 12:05 | OP.PCM_ITS ---
Problem List (1) Wound of left foot Status: Acute Comment: open amputation (2) Osteomyelitis of left foot Status: Resolved (3) Abscess of left foot Status: Resolved (4) Type 2 diabetes mellitus with diabetic polyneuropathy Status: Chronic Report of Operation Date of Procedure: 02/19/21 Pre-Operative Diagnosis: s/p open left foot amputation wound with exposed bone. Prior abscess and osteomyelitis suspected Post-Operative Diagnosis: s/p open left foot amputation wound with exposed bone. Resolved abscess and resolution of osteomyelitis suspected Surgery/Procedure Performed:: left transmetatarsal amputation with complex wound closure Description of Surgical Findings:: Hemostasis: Well-padded pneumatic left ankle tourniquet, 250 mmHg, 26 minutes Materials: 2-0 Vicryl, 2-0 and 3-0 nylon Specimen sent Complications: None Main findings: No purulence, necrosis or devitalized tissue at amputation resection site post irrigation. Healthy tissue remained. The patient tolerated the procedure and anesthesia well. The patient was t ransported to the PACU with vital signs stable and vascular status intact to the surgical limb. To ice and elevate for pain and inflammation management. Postoperative x-rays were reviewed prior to leaving the operating room demonstrating adequate transmetatarsal amputation without acute injuries, foreign body, soft tissue emphysema or new osseous destruction. She will be transferred back to the transitional care unit upon continued stability and will remain nonweightbearing to the surgical limb. Postoperative orders were entered electronically. customer counter representative: yes - Surgeon: Stacie Finn DPM. Christian Bunch PGY2, DPM Type of Anesthesia:: MAC/Supplemental/Local - Preoperative: One-to-one mixture 1% lidocaine plain 0.5% Marcaine plain administered in typical left ankle block fashion, 20 cc Specimen's removed: 1. Metatarsal clearance fragment sent to pathology. 2. Metatarsal clearance fragment sent to microbiology (aerobic, anaerobic, acid- fast, fungal) Estimated Blood Loss (mL): < 150 mL Description of Procedure: Indications: This 66-year-old female with significant past medical history of diabetes with neuropathy, epilepsy, mitral valve prolapse, obesity, migraines, reported history of C. difficile, prior history of substance abuse, asthma, and recent deep venous thrombosis of the left mid calf posterior tibial vein (on Eliquis) was seen for left foot infection in the transitional care unit. In the recent setting, she had open 2, 3, 4 ray resection for treatment of deep forefoot and arch abscess. The infection has been decompressing and tissues have been demarcating. She has stabilized from a foot and medical standpoint over the past couple of weeks. There has not been any purulence or odor. She has been on a wound VAC. The lateral plantar flap has had controlled dusky progression. She had a blood transfusion performed yesterday due to anemia status. She is residing in the transitional care unit at this time for rehabilitation and IV antibiotics under the management of infectious disease physician. She is on meropenem and vancomycin. Preoperative indications, planned procedure, possible benefits, risk, complications, and anticipated healing time and management were reviewed and discussed with the patient. She understands elects to proceed with surgery at this time. No guarantees were made. She understands risk and complications include but not limited to the following: Pain, swelling, scarring, need for further surgery, continued infection, delayed or nonhealing, blood clot, allergic reaction, limb contracture, chronic pain, need for long-term bracing or prosthetic, loss of limb, function, or life. She also understands this procedure is being conducted during the time of COVID-19 pandemic and there is an inherent risk with being in the hospital. She understands precautions will be taken to avoid exposure and the benefits outweigh the risks at this time. I recommend proceeding forward with surgical intervention in a timely manner. This is a nonelective staged limb salvage surgery. I answered all her questions. Surgical consent and limb were signed. Procedure in detail: The patient was transported to the operating room via cart and placed on the operating table in the supine position. Final verification of the patient, surgery, limb designation was performed via the timeout procedure. IV antibiotics have already been administered and she is receiving these on the transitional care unit. MAC anesthesia was initiated by the anesthesia team. The podiatry team administered the local anesthetic. She was evaluated for equinus at this time to determine if a posterior leg tendon lengthening procedure is necessary. She has adequate dorsiflexion with the knee flexed and extended to allow future plantigrade foot position and this additional procedures is not planned at this time. A well-padded pneumatic left low ankle tourniquet was placed. The left lower extremity was prepped and draped in the usual aseptic manner. [place] exsanguination was performed the tourniquet was inflated at this time. Surgery began the following manner: Attention was first directed to the open left foot amputation site in which a scalpel was used to make a fishmouth type incision to excise any devitalized and dusky lateral remaining flap and also to excise the hallux phalanges and part of the first metatarsal. Care was taken to identify, protect, and protect remaining desired neurovascular structures of this point and throughout the remainder of surgery. Care was also taken to gently mobilize medially to preserve perfusion to the flap tissue. Next, instrumentation was used to allow good exposure to all of the metatarsal shafts in which a sagittal saw was used to resect taking care to bevel the surfaces to prevent future pressure points. The tissue was removed from the table and copious amounts of saline irrigation was performed for irrigation. At this time clean instrumentation, gloves, and adjacent drapes were applied. A clean clearance fragment from the central metatarsals was obtained with a rongeur and this was sent to both microbiology and pathology. It is noted there is no remaining purulence, necrosis or devitalized tissue at this level. Care was taken to remove any potential avascular structures such as remaining plantar plates in the sesamoid apparatus. The tourniquet was deflated at this time and brisk capillary refill time was noted to all aspects of the remaining flat and amputation boundaries. Tissue appeared healthy at this level and contracted with Bovie stimulation representing viability. Electrocauterization on visible calcified vessels was performed. Additional first intermetatarsal space vessel was tied off utilizing Vicryl suture. Pressure was applied and no pulsatile bleeding was noted at this point. The medial remaining flap tissue was next rotated and applied in a lateral manner to cover all of the remaining deep tissues including the metatarsals. Complex deep closure was performed with Vicryl suture to prevent any space and to reapproximate the deep tissues. Next further layered tissue closure was performed with nylon suture using a combination of simple, vertical mattress, and horizontal mattress techniques. A postoperative dressing consisting of a bolstered Betadine wet-to-dry gauze, abdominal pad, Kerlix, and Demetrio wrap was applied to the left lower extremity. After procedure: The patient tolerated the procedure and anesthesia well. She was transported to the PACU with vital signs stable and vascular status intact to the left lower extremity. To ice and elevate for pain and inflammation management. Pain medications were ordered. It is noted she has tolerated norco in the past. She was advised to maintain a strict nonweightbearing status to left lower extremity. To keep her dressing clean, dry, and intact. Postoperative x-rays were taken prior to leaving the operating room with adequate resection of the infected tissue without acute injuries, soft tissue emphysema, or foreign body. Transmetatarsal amputation procedure is noted. Infectious diseases on consult and appreciated. She is on meropenem and vancomycin and information from her updated clearance fragments will be utilized to determine continued use. These results are pending. She will be monitored closely in the transitional care unit clinically and with serial labs. Tentative use of Eliquis is planned for tomorrow for treatment of her acute deep venous thrombosis. Postoperative orders were entered electronically. Stacie Finn DPM, [facility] Grafts/Implants Used: none - Complications none - Admit VTE Documentation VTE Present on Admission: No VTE Mechan Device Prophylaxis: SCD's VTE Pharm Prophylaxis ordered?: Yes
== END 2021-02-19 14:00 | disposition skilled nursing facility (03) ==
LOC: SDC 09:27 → AC 09:28
PROVIDERS: PCP Family Medicine; Referring Provider Podiatrist; Visit Provider Podiatrist
PROC: (CPT 28805; principal; 2021-02-19 10:25)
DX: T87.44 Infection of amputation stump, left lower extremity (principal); Y83.8 Other surgical procedures as the cause of abnormal reaction of the patient, or of later complication, without mention of misadventure at the time of the procedure; E11.42 Type 2 diabetes mellitus with diabetic polyneuropathy; L02.612 Cutaneous abscess of left foot; I82.402 Acute embolism and thrombosis of unspecified deep veins of left lower extremity; K21.9 Gastro-esophageal reflux disease without esophagitis; D64.9 Anemia, unspecified; J45.909 Unspecified asthma, uncomplicated; M50.30 Other cervical disc degeneration, unspecified cervical region; M51.36 Other intervertebral disc degeneration, lumbar region; Z79.899 Other long term (current) drug therapy; Z79.4 Long term (current) use of insulin
CPT/HCPCS: 01480; 28805; 73620; 76000; 87015; 87070; 87075; 87102; 87116; 87205; 87206; 88304; 88305; 88311; J7120; J2405

== ENCOUNTER → 2021-03-03 17:13 | Outpatient (CLI) | payer MEDICARE, OTHER, SELFPAY ==
[2021-02-19 09:45] VITALS: BMI 23.8
--- NOTE | 2021-03-04 17:26 | CT_ITS ---
STUDY: CT BRAIN WITHOUT CONTRAST REASON FOR EXAM: Female, 66 years old. LEFT EYE PAIN,DECREASED VISION, BRAIN TUMOR RADIATION DOSAGE (If Supplied By Facility): CTDIvol = ( 44.99 ) mGy, DLP = ( 796.11 ) mGycm TECHNIQUE: Transaxial CT imaging of the brain was performed without administration of intravenous contrast material. Individualized dose optimization techniques were used for this CT. COMPARISON: No relevant priors. FINDINGS: Normal soft tissue structures. Normal calvarium. There is mild cerebral atrophy with widening of the extra-axial spaces and ventricular dilatation. There is a 1.9 cm x 2 cm densely calcified nodule in the midline in the anterior aspect of the cerebral falx at the skull base. This most likely represents a meningioma. This extends into the region of the pituitary fossa and possible compromise of the optic nerves. Normal basal ganglia and thalami. Normal brainstem. Normal cerebellum. There is no intracranial hemorrhage. There are no findings of an acute ischemic infarction. Normal visualized paranasal sinuses. CT/Brain/Head without Contrast IMPRESSION: 1.9 cm x 2 cm densely calcified nodule in the midline in the anterior aspect of cerebral falx at the level of the skull base. This lies between the right and left frontal lobes. This most likely represents a meningioma. This extends into the sella and possible compromise of the optic nerves. Electronically Signed: Ming Louise MD at 11:19 EDT , Service support ,
== END ==
PROVIDERS: PCP Family Medicine; Visit Provider Family Medicine Geriatric Medicine
DX: H57.12 Ocular pain, left eye (principal); H53.8 Other visual disturbances
CPT/HCPCS: 70450

== ENCOUNTER 2021-04-28 10:30 | Outpatient (RCR) | payer MEDICARE, OTHER, SELFPAY ==
[2021-02-19 09:45] VITALS: BMI 23.8
[2021-04-07 13:27] VITALS: BP 163/78; PULSE 69; RESP 16; BMI 26.6
--- NOTE | 2021-04-07 13:43 | WC ---
PT WILL BRING MED LIST FROM [facility] @ NEXT VISIT.
--- NOTE | 2021-04-07 13:47 | WC ---
sutures intact to transmet incision
--- NOTE | 2021-04-07 15:04 | PCM.WC.HP ---
History of Present Illness Date of Service: 04/07/21 Chief Complaint: Left foot ulcer History of Wound: This 66-year-old diabetic female with other comorbidities including recent DVT, anemia, neuropathy, and others was seen for a left foot ulcer. She has a complex history of infection with foot surgeries. Her last foot surgery was performed at [facility] on 02-25-21 which included a transmetatarsal amputation with rotational flap. She did have some subsequent flap compromise and this has continued to demarcate while she was residing in the transitional care unit. Now she is in a group home facility to complete her course of IV antibiotics for treatment of prior infection and for therapy purposes. She denies foot pain today. She has been offloading as advised. The dressing has been changed as advised. She denies fever, chill, nausea, vomiting, redness, odor. She is ready to get her sutures removed today and discussed advanced treatment options. She is with her today. PFS Home Medications acetaminophen 1,000 mg PO Q6H PRN #0 tab 03/25/21 [Rx Last Taken Unknown] acetaminophen 500 mg PO Q6H PRN PRN #0 tab 03/25/21 [Rx Last Taken Unknown] acidophilus-pectin, citrus 1 tab PO TID #0 tab 03/25/21 [Rx Last Taken Unknown] albuterol sulfate [Ventolin HFA] 1 puff INHALATION Q4H PRN PRN #0 g 03/25/21 [Rx Last Taken Unknown] oqflz-ngdl-QxOIW-hrivnk-qq-ibi [Alfredo (with collagen)] 1 packet PO BIDCM #0 ea 03/25/21 [Rx Last Taken Unknown] aspirin 81 mg PO DAILY@0800 #0 tab 03/25/21 [Rx Last Taken Unknown] fluticasone propion-salmeterol [Wixela Inhub] 1 puff INHALATION Q12 #0 ea 03/25/21 [Rx Last Taken Unknown] gabapentin 300 mg PO BID #0 cap 03/25/21 [Rx Last Taken Unknown] gabapentin 600 mg PO QHS #0 tab 03/25/21 [Rx Last Taken Unknown] guaifenesin [Mucus Relief ER] 1,200 mg PO BID #0 tab 03/25/21 [Rx Last Taken Unknown] hydrocodone-acetaminophen 1 - 2 tab PO Q6H PRN PRN 7 Days #28 tab 03/25/21 [Rx Last Taken Unknown] hydrocortisone 1 applic TOPICAL TID PRN PRN #0 g 03/25/21 [Rx Last Taken Unknown] orqbow-wlsiiqvg-tikclsv [Creon] 1 capsule PO TIDCM #0 cap 03/25/21 [Rx Last Taken Unknown] loperamide 4 mg PO 4X/DAY #0 cap 03/25/21 [Rx Last Taken Unknown] menthol-zinc oxide [Calmoseptine] 1 applic TOPICAL BID #0 g 03/25/21 [Rx Last Taken Unknown] nystatin [Nyamyc] 1 applic TOPICAL TID #0 g 03/25/21 [Rx Last Taken Unknown] ondansetron 4 mg PO Q6H PRN PRN #0 tab 03/25/21 [Rx Last Taken Unknown] pantoprazole 40 mg PO BID #0 tab 03/25/21 [Rx Last Taken Unknown] polysaccharide iron complex [Ferrex 150] 150 mg PO DAILYCM #0 cap 03/25/21 [Rx Last Taken Unknown] povidone-iodine [Betadine] 10 ml TOPICAL Q48 #0 ml 03/25/21 [Rx Last Taken Unknown] sodium hypochlorite [HySept] 1 applic TOPICAL DAILY #0 ml 03/25/21 [Rx Last Taken Unknown] vancomycin [Firvanq] 125 mg PO QODAY #0 ml 03/25/21 [Rx Last Taken Unknown] Allergy/AdvReac Type Severity Reaction Status Date / Time cefprozil Allergy Shortness Verified 04/07/21 13:42 of breath ceftriaxone Allergy Hives Verified 04/07/21 13:42 clindamycin Allergy Rash Verified 04/07/21 13:42 enalapril Allergy Other Verified 04/07/21 13:42 enoxaparin Allergy Rash Verified 04/07/21 13:42 heparin Allergy Rash Verified 04/07/21 13:42 levalbuterol Allergy Other Verified 04/07/21 13:42 morphine Allergy Shortness Verified 04/07/21 13:42 of breath Penicillins Allergy Anaphylaxis Verified 04/07/21 13:42 shellfish derived Allergy Anaphylaxis Verified 04/07/21 13:42 valsartan Allergy Other Verified 04/07/21 13:42 vancomycin Allergy Rash Verified 04/07/21 13:42 Social History Smoking Status: Never smoker Vital Signs Vital Signs Vital Signs: 04/07/21 13:27 Temperature Source Temporal Pulse Rate 69 Respiratory Rate 16 Blood Pressure 163/78 H Blood Pressure Mean 106 Blood Pressure Source Monitor Blood Pressure Position Sitting Blood Pressure Location Right Arm Oxygen Delivery Method Room Air Weight Weight: 70.307 kg Body Mass Index (BMI) 26.6 Physical Exam Const alert and oriented x3 General Appearance: cooperative HEENT normocephalic Extremity Extremity Narrative: No calf tenderness-including negative Faith and Mchugh sign left lower extremity Diminished pulses Muscle wasting noted Left transmetatarsal amputation noted General Extremity: edema and no tenderness to palpation of joints or extremities; Negative for cyanosis Skin Skin Narrative: no purulence, no streaking, no odor, no infection. Sutures were removed and it is noted she does have some plantar central flap eschar and also some eschar to the lateral margin. There is some adipose tissue remaining. Upon debridement of the eschar the tissue is granular. There is no probe to bone other adjacent midfoot joints. There is no bogginess or fluctuance. No maceration. General Skin Exam: Negative for erythema Neuro Neuro Narrative: lack of normal epicritic sensation via light touch is consistent with neuropathy status Psych cooperative and affect normal Debridement Note Debridement Note Post-Debridement Measurements and Additional Note: Post-Debridement Measurements/Treatment - Nurse 1 - General Ulcer Assessment Start: 04/07/21 13:26 Freq: Status: Active Protocol: [place] Activity Type Activity Date Activity User E-Sign Co-Sign Detail Recorded Client Recorded Date Recorded By Document 04/07/21 13:27 [facility] [id number] 04/07/21 13:38 [facility] 04/07/21 13:27 - Today's Visit Information Type of service Initial Visit Arrival Mode Wheelchair Transfer Assistance Other Transfer Assist (Other) 2 assist Accompanied by Patient Requires Transmission-Based No Precautions Height and Weight Height 5 ft 4 in Weight 70.307 kg Weight in Pounds 155.0 lbs Weight Measurement Method Stated by Patient Body Mass Index (BMI) 26.6 BMI Classification Overweight BSA - Maxwell 1.76 Vital Signs Temperature Source Temporal Pulse Rate (60-100) 69 Pulse Location Monitor Respiratory Rate (12-18) 16 Respiratory rate source Observation Oxygen Delivery Method Room Air Blood Pressure (90/60-120/80) 163/78 H Blood Pressure Mean 106 Source Monitor Position Sitting Blood Pressure Location Right Arm History Since Last Visit- (Skip if this is Patient's initial visit) Right Footwear Regular Shoe Communication Assessment Preferred language Citizen [place] Engine Repair Supervisor Required No Able to Read Yes Able to Write Yes Communication Tools None Right Hearing Abillity Normal Left Hearing Abillity Normal Visual Assistive Devices None Teaching Assessment Preferences Verbal,Written, Audio/Visual, Demonstration Barriers to Learning None Readiness To Learn Excellent Willingness to Engage in Self Management High Activies Readiness to Engage in Self Management High Activities Anxiety Level Calm Cooperation Cooperative Perception Coherent Interest in Health Problem Asks Questions Education Importance Acknowledges Need Does Patient Smoke tobacco or other No substances Smoking Status Never smoker Is Patient Diabetic Yes Functional Assessment Recent Decline in Ability to Perform Ambulation, Bathing,Lower Body Dressing, Toileting, Transferring Culture/Sikh/Biztalk Administrator Cultural/Sikh Needs that may affect No Treatment Plan Teaching: Wound Center *Welcome to the Wound Center -Person Taught Patient -Teaching Method Discussion -Response to teaching Verbalize understanding Welcome to the Wound Care Center Citizen [place] WC - Nurse 1 - General Ulcer Measurement Start: 04/07/21 13:26 Freq: Status: Active Protocol: Activity Type Activity Date Activity User E-Sign Co-Sign Detail Recorded Client Recorded Date Recorded By Document 04/07/21 13:27 [facility] [id number] 04/07/21 13:38 [facility] 04/07/21 13:27 Wound Center Nurse 1 #1- L FOOT TRANSMET POST OP -Combined with other wound No -Current Size (cm) - Length 0.1 -Current Size (cm) - Width 0.1 -Current Size (cm) - Depth 0.1 -Total Square Cm 0.01 -Date of Last Picture (Recall this 04/07/21 field) -Photo Taken Yes -Tunneling No -Undermining/Tunneling No -Circular Undermining No -Exudate Amt None Present -Wound Margin Distinct, Outline Attached -Slough/Fibrin Yes -Necrosis Amt Large (67-100%) -Necrotic Tissue Type Eschar -Texture (Margy-wound Skin Appearance) Assessed -Moisture (Margy-wound Skin Appearance) Assessed -Color (Margy-wound Skin Appearance) Assessed -Temperature (Margy-wound Skin No Abnormality Appearance) (Pt Warm) -Tenderness on Palpation (Margy-wound No Skin Appearance) -Ulcer Cleansing Wound Cleanser -Foul Odor after Cleansing No -Anesthetic Used 4% Lidocaine Solution Lower Limb Edema Present Yes Right Calf (cm) 37.3 Right Ankle (cm) 23.7 Left Calf (cm) 36.5 Left Ankle (cm) 23.5 WC - Nurse 2 - General Ulcer CM Notes Start: 04/07/21 13:26 Freq: Status: Active Protocol: Activity Type Activity Date Activity User E-Sign Co-Sign Detail Recorded Client Recorded Date Recorded By Document 04/07/21 14:26 [facility] [id number] 04/07/21 14:31 [facility] 04/07/21 14:26 Wound Center Nurse 2 2-left foot plantar -Correct Patient Yes -Correct Side, Site, Position Yes -Correct Procedure Yes -Procedure Performed Yes -Type of Procedure Debridement -Clinical Debridement Subcutaneous -Tissue Removed Subcutaneous -Post Debridement (cm) - Length 3.0 -Post Debridement (cm) - Width 1.6 -Post Debridement (cm) - Depth 1.3 -Total Square (Post) (cm) 4.80 -Area of Debridement (cm) - Length 3.0 -Area of Debridement (cm) - Width 1.6 -Total Square (Area) (cm) 4.80 -Tunneling No -Undermining/Tunneling No -Circular Undermining No -Wound/Ulcer Outcome Not Healed -Ulcer Cleansing Rinsed/ Irrigated with Saline -Foul Odor after Cleansing No -Bioengineered Tissue No -Bleeding Controlled with Pressure -Offloading Yes -Type of Offloading Knee Walker -Treatment Response Procedure Tolerated Well -Debridement - Subq, 1st 20sq cm No #1- L FOOT TRANSMET POST OP -Time 14:28 -Correct Patient Yes -Correct Side, Site, Position Yes -Correct Procedure Yes -Procedure Performed Yes -Type of Procedure Debridement -Clinical Debridement Subcutaneous -Tissue Removed Subcutaneous -Post Debridement (cm) - Length 4.3 -Post Debridement (cm) - Width 6.7 -Post Debridement (cm) - Depth 0.8 -Total Square (Post) (cm) 28.81 -Area of Debridement (cm) - Length 4.3 -Area of Debridement (cm) - Width 6.7 -Total Square (Area) (cm) 28.81 -Tunneling No -Undermining/Tunneling No -Circular Undermining No -Wound/Ulcer Outcome Not Healed -Ulcer Cleansing Rinsed/ Irrigated with Saline -Foul Odor after Cleansing No -Bioengineered Tissue No -Bleeding Controlled with Pressure -Offloading Yes -Type of Offloading Knee Walker -Treatment Response Procedure Tolerated Well -Debridement - Subq, 1st 20sq cm Yes -Debridement, SubQ, ea addt'l 20sq cm 1 or part thereof Pain Scale: 0-10 Numeric Is Patient Pain Free? Yes WC - Nurse 3 - General Ulcer D/C NN Start: 04/07/21 13:26 Freq: Status: Active Protocol: Activity Type Activity Date Activity User E-Sign Co-Sign Detail Recorded Client Recorded Date Recorded By Document 04/07/21 14:40 MS [id number] 04/07/21 14:41 MS 04/07/21 14:40 Wound Care Nurse 3 2-left foot plantar -Ulcer Cleansing Rinsed/ Irrigated with Saline -Foul Odor after Cleansing No -Primary Dressing Applied Aquacel AG 4x4 -Primary Dressing Covered/Secured with Dry Gauze,Dry Gauze & Roll Gauze,Secured with Tape -Aquacel AG 4x4 1 #1- L FOOT TRANSMET POST OP -Ulcer Cleansing Rinsed/ Irrigated with Saline -Foul Odor after Cleansing No -Primary Dressing Applied Aquacel AG 4x4 -Primary Dressing Covered/Secured with Dry Gauze,Dry Gauze & Roll Gauze,Secured with Tape -Aquacel AG 4x4 0 Wound debrided: left plantar foot and dorsal lateral foot Wound Grade/Stage: 1 Type of Debridement: Excisional debridement Anesthesia Used: 4% Lidocaine Solution Depth: in the subcutaneous layer Percentage of wound debrided: 100 Instrument Used: #15 blade Tissue Removed: fibrous, devitalized subcutaneous, biofilm, slough Severity: Fat Layer Exposed Amount of bleeding with debridement: Mild Bleeding Controlled with: Pressure Patient tolerated procedure: Patient tolerated procedure well Assessment/Plan Assessment/Plan (1) Type 2 diabetes mellitus with diabetic polyneuropathy: CODE(S): E11.42 - Type 2 diabetes mellitus with diabetic polyneuropathy QUALIFIERS: Diabetes mellitus rodent exterminator insulin use: unspecified correction insulin use status Qualified Code(s): E11.42 - Type 2 diabetes mellitus with diabetic polyneuropathy (2) Delayed wound healing: CODE(S): T14.8XXD - Other injury of unspecified body region, subsequent encounter (3) Localized edema: CODE(S): R60.0 - Localized edema (4) Non-pressure chronic ulcer of other part of left foot with fat layer exposed: CODE(S): L97.522 - Non-pressure chronic ulcer of other part of left foot with fat layer exposed PLAN: I reviewed and discussed her case today. Debridement was performed today as noted in the clinical panel to all of the ulcer sites. The remainder of her sutures were also removed. Care was taken to debride eschar tissue as well. The following work up and care recommendations were made: Dressing: Aquacel Ag Wash: Antibacterial soap and water Tissue growth optimization: I recommend advanced wound healing product, epi cord which is umbilical and placental derived tissue and also epi fix for when the wound becomes more superficial. She has already completed traditional comprehensive wound care plan and surgical intervention. This is medically necessary for limb salvage. The indications, benefits, anticipated application and management were discussed in detail. She is amendable to proceed. Insurance prior authorization will be completed. Offload: To remain nonweightbearing to left lower extremity. She uses assistive device. She also hangs her heel over stacked pillows while in bed and has an egg crate offloading boot for additional protection. Vascular: She had arterial Doppler performed on 02-05-21 in which there was no stenosis noted. She has triphasic waveforms. She was seen by vascular specialist, Dr. Hugo while in the transitional care unit and additional intervention is not recommended. Edema: To wear Tubigrip which was dispensed today. To elevate at rest. It is also noted she had a recent deep venous thrombosis to the left calf which she was treated with therapeutic anticoagulation medication. Infection: This has resolved locally and clinically. To monitor for return. Is also noted she was under the management of infectious disease during her hospitalization and also during her transition to group home facility with IV antibiotics. She has anticipated completion of her antibiotics by the end of the week. Culture results and details are in [employer] computer software. Pain: Controlled likely secondary to her neuropathy. Host factors: Her comorbidities impair her healing process. She has delays in healing. I recommend continue nutritional supplementation to optimize healing. Labs: Reviewed from white blood cell count 9. CMP reviewed on 04/15 without gross abnormalities. Albumin 2.5. And A1c 6.7% Imaging: Left foot x-ray performed on 02-19-21 with subsequent transmetatarsal amputation without soft tissue emphysema or foreign body or acute other injuries or Charcot event. I answered all the patient's questions. To return to the wound healing center in 1 week or call sooner if the patient has any questions or concerns.
[2021-04-14 15:15] VITALS: BP 139/74; PULSE 78; RESP 16; BMI 26.6
--- NOTE | 2021-04-14 16:31 | PCM.WC.PN ---
History of Present Illness Date of Service: 04/14/21 Chief Complaint: Left foot ulcer History of Wound: This 66-year-old diabetic female with other comorbidities including recent DVT, anemia, neuropathy, and others was seen for a left foot ulcer. She has a complex history of infection with foot surgeries. Her last foot surgery was performed at [facility] on 02-25-21 which included a transmetatarsal amputation with rotational flap. She did have some subsequent flap compromise and this has continued to demarcate while she was residing in the transitional care unit. Now [facility] in a [facility] facility to complete her course of IV antibiotics for treatment of prior infection and for therapy purposes. She denies foot pain today. She has been offloading as advised. The dressing has been changed as advised. She denies fever, chill, nausea, vomiting, redness, odor. She is with her today. Objective Data Objective Data Vital Signs: Vital Signs Pulse Resp BP 78 16 139/74 H 04/14/21 15:15 04/14/21 15:15 04/14/21 15:15 Oxygen Delivery Method Room Air Weight: 70.307 kg Body Mass Index (BMI) 26.6 Physical Exam Const alert and oriented x3 General Appearance: cooperative HEENT normocephalic Extremity Extremity Narrative: No calf tenderness-including negative Faith and Mchugh sign left lower extremity Diminished pulses Muscle wasting noted Left transmetatarsal amputation noted General Extremity: edema and no tenderness to palpation of joints or extremities; Negative for cyanosis Skin Skin Narrative: no purulence, no streaking, no odor, no infection. granular base with minimal lateral adipose tissue exposure. no eschar or necrosis seen today. There is no probe to bone other adjacent midfoot joints. There is no bogginess or fluctuance. No maceration. General Skin Exam: Negative for erythema Neuro Neuro Narrative: lack of normal epicritic sensation via light touch is consistent with neuropathy status Psych cooperative and affect normal Debridement Note Debridement Note Post-Debridement Measurements and Additional Note: Post-Debridement Measurements/Treatment WC - Nurse 1 - General Ulcer Assessment Start: 04/07/21 13:26 Freq: Status: Active Protocol: LEO.AMANDA Activity Type Activity Date Activity User E-Sign Co-Sign Detail Recorded Client Recorded Date Recorded By Document 04/07/21 13:27 [facility] [id number] 04/07/21 13:38 [facility] Document 04/14/21 15:15 ND [id number] 04/14/21 15:28 [place] 04/07/21 04/14/21 13:27 15:15 WC - Today's Visit Information Type of service Initial Visit Follow-up Visit (Physician/[facility]MER ) Arrival Mode Wheelchair Wheelchair Transfer Assistance Other Other Transfer Assist (Other) 2 assist stand by assist x 1 Accompanied by Patient Identification Verified (Name & Yes ) Patient Requires Transmission-Based No No Precautions Height and Weight Height 5 ft 4 in Weight 70.307 kg Weight in Pounds 155.0 lbs Weight Measurement Method Stated by Patient Body Mass Index (BMI) 26.6 26.6 BMI Classification Overweight Overweight BSA - Maxwell 1.76 Vital Signs Temperature Source Temporal Pulse Rate (60-100) 69 78 Pulse Location Monitor Monitor Respiratory Rate (12-18) 16 16 Respiratory rate source Observation Observation Oxygen Delivery Method Room Air Room Air Blood Pressure (90/60-120/80) 163/78 H 139/74 H Blood Pressure Mean (mm Hg) 106 95 Source Monitor Monitor Position Sitting Sitting Blood Pressure Location Right Arm Right Arm Have you changed medications since your No last visit? Any new allergies or adverse reactions No Had a fall/change in ADL's that may No increase risk of falls Signs or symptoms of abuse and/or No neglect since last visit Have you been in the hospital since your No last visit? Has dressing in place as prescribed Yes Has compression in place as prescribed Yes Has offloadiing in place as prescribed Yes Experienced any changes in pain level or No management History Since Last Visit- (Skip if this is Patient's initial visit) Right Footwear Regular Shoe Pain Scale: 0-10 Numeric Is Patient Pain Free? Yes Communication Assessment Preferred language Malaysian It Risk And Assurance Senior Manager Required No Able to Read Yes Able to Write Yes Communication Tools None Right Hearing Abillity Normal Left Hearing Abillity Normal Visual Assistive Devices None Teaching Assessment Preferences Verbal,Written, Audio/Visual, Demonstration Barriers to Learning None Readiness To Learn Excellent Willingness to Engage in Self Management High Activies Readiness to Engage in Self Management High Activities Anxiety Level Calm Cooperation Cooperative Perception Coherent Interest in Health Problem Asks Questions Education Importance Acknowledges Need Does Patient Smoke tobacco or other No substances Smoking Status Never smoker Is Patient Diabetic Yes Functional Assessment Recent Decline in Ability to Perform Ambulation, Bathing,Lower Body Dressing, Toileting, Transferring Culture/Hinduism/Teleradiologist Cultural/Hinduism Needs that may affect No Treatment Plan Teaching: Wound Center *Welcome to the Wound Center -Person Taught Patient -Teaching Method Discussion -Response to teaching Verbalize understanding Welcome to the Wound Care Center Malaysian WC - Nurse 1 - General Ulcer Measurement Start: 04/07/21 13:26 Freq: Status: Active Protocol: Activity Type Activity Date Activity User E-Sign Co-Sign Detail Recorded Client Recorded Date Recorded By Document 04/07/21 13:27 [facility] [id number] 04/07/21 13:38 [facility] Document 04/14/21 15:15 ND [id number] 04/14/21 15:28 ND 04/07/21 04/14/21 13:27 15:15 Wound Center Nurse 1 2-left foot plantar -Combined with other wound No -Current Size (cm) - Length 1.1 -Current Size (cm) - Width 0.6 -Current Size (cm) - Depth 2 -Total Square Cm 0.66 -Photo Taken No -Epithelialization None Present -Tunneling Yes -Tunneling Position (O'clock) 12 -Tunneling Distance (cm) 2.7 -Undermining/Tunneling No -Circular Undermining No -Exudate Amt Medium -Exudate Type Serosanguineous -Wound Margin Distinct, Outline Attached -Granulation Amt Medium (34-66%) -Granulation Quality Red -Slough/Fibrin Yes -Necrosis Amt Medium (34-66%) -Necrotic Tissue Type Adherent Slough -Texture (Margy-wound Skin Appearance) Assessed, Scarring -Moisture (Margy-wound Skin Appearance) Assessed -Color (Margy-wound Skin Appearance) Assessed -Temperature (Margy-wound Skin No Abnormality Appearance) (Pt Warm) -Tenderness on Palpation (Margy-wound No Skin Appearance) -Ulcer Cleansing Rinsed/ Irrigated with Saline -Foul Odor after Cleansing No -Anesthetic Used 4% Lidocaine Solution #1- L FOOT TRANSMET POST OP -Combined with other wound No No -Current Size (cm) - Length 0.1 0.5 -Current Size (cm) - Width 0.1 4 -Current Size (cm) - Depth 0.1 0.2 -Total Square Cm 0.01 2.0 -Date of Last Picture (Recall this 04/07/21 field) -Photo Taken Yes No -Epithelialization None Present -Tunneling No No -Undermining/Tunneling No No -Circular Undermining No No -Exudate Amt None Present Medium -Exudate Type Serosanguineous -Wound Margin Distinct, Distinct, Outline Outline Attached Attached -Granulation Amt Small (1-33%) -Granulation Quality Red -Slough/Fibrin Yes Yes -Necrosis Amt Large (67-100%) Large (67-100%) -Necrotic Tissue Type Eschar Adherent Slough -Texture (Margy-wound Skin Appearance) Assessed Assessed, Scarring -Moisture (Margy-wound Skin Appearance) Assessed Assessed -Color (Margy-wound Skin Appearance) Assessed Assessed -Temperature (Margy-wound Skin No Abnormality No Abnormality Appearance) (Pt Warm) (Pt Warm) -Tenderness on Palpation (Margy-wound No No Skin Appearance) -Ulcer Cleansing Wound Cleanser Rinsed/ Irrigated with Saline -Foul Odor after Cleansing No No -Anesthetic Used 4% Lidocaine 4% Lidocaine Solution Solution Lower Limb Edema Present Yes Yes Right Calf (cm) 37.3 Right Ankle (cm) 23.7 Left Calf (cm) 36.5 33 Left Ankle (cm) 23.5 23 WC - Nurse 2 - General Ulcer CM Notes Start: 04/07/21 13:26 Freq: Status: Active Protocol: Activity Type Activity Date Activity User E-Sign Co-Sign Detail Recorded Client Recorded Date Recorded By Document 04/07/21 14:26 [id number] 04/07/21 14:31 04/07/21 14:26 Wound Center Nurse 2 2-left foot plantar -Correct Patient Yes -Correct Side, Site, Position Yes -Correct Procedure Yes -Procedure Performed Yes -Type of Procedure Debridement -Clinical Debridement Subcutaneous -Tissue Removed Subcutaneous -Post Debridement (cm) - Length 3.0 -Post Debridement (cm) - Width 1.6 -Post Debridement (cm) - Depth 1.3 -Total Square (Post) (cm) 4.80 -Area of Debridement (cm) - Length 3.0 -Area of Debridement (cm) - Width 1.6 -Total Square (Area) (cm) 4.80 -Tunneling No -Undermining/Tunneling No -Circular Undermining No -Wound/Ulcer Outcome Not Healed -Ulcer Cleansing Rinsed/ Irrigated with Saline -Foul Odor after Cleansing No -Bioengineered Tissue No -Bleeding Controlled with Pressure -Offloading Yes -Type of Offloading Knee Walker -Treatment Response Procedure Tolerated Well -Debridement - Subq, 1st 20sq cm No #1- L FOOT TRANSMET POST OP -Time 14:28 -Correct Patient Yes -Correct Side, Site, Position Yes -Correct Procedure Yes -Procedure Performed Yes -Type of Procedure Debridement -Clinical Debridement Subcutaneous -Tissue Removed Subcutaneous -Post Debridement (cm) - Length 4.3 -Post Debridement (cm) - Width 6.7 -Post Debridement (cm) - Depth 0.8 -Total Square (Post) (cm) 28.81 -Area of Debridement (cm) - Length 4.3 -Area of Debridement (cm) - Width 6.7 -Total Square (Area) (cm) 28.81 -Tunneling No -Undermining/Tunneling No -Circular Undermining No -Wound/Ulcer Outcome Not Healed -Ulcer Cleansing Rinsed/ Irrigated with Saline -Foul Odor after Cleansing No -Bioengineered Tissue No -Bleeding Controlled with Pressure -Offloading Yes -Type of Offloading Knee Walker -Treatment Response Procedure Tolerated Well -Debridement - Subq, 1st 20sq cm Yes -Debridement, SubQ, ea addt'l 20sq cm 1 or part thereof Pain Scale: 0-10 Numeric Is Patient Pain Free? Yes WC - Nurse 3 - General Ulcer D/C NN Start: 04/07/21 13:26 Freq: Status: Active Protocol: Activity Type Activity Date Activity User E-Sign Co-Sign Detail Recorded Client Recorded Date Recorded By Document 04/07/21 14:40 MS [id number] 04/07/21 14:41 MS Document 04/14/21 16:04 [facility] [id number] 04/14/21 16:05 [facility] 04/07/21 04/14/21 14:40 16:04 Wound Care Nurse 3 2-left foot plantar -Ulcer Cleansing Rinsed/ Rinsed/ Irrigated with Irrigated with Saline Saline -Foul Odor after Cleansing No No -Primary Dressing Applied Aquacel AG 4x4 Aquacel AG 4x4 -Primary Dressing Covered/Secured with Dry Gauze,Dry Dry Gauze & Gauze & Roll Roll Gauze, Gauze,Secured Secured with with Tape Tape,Other -Other Covering abd -Aquacel AG 4x4 1 1 #1- L FOOT TRANSMET POST OP -Ulcer Cleansing Rinsed/ Rinsed/ Irrigated with Irrigated with Saline Saline -Foul Odor after Cleansing No No -Primary Dressing Applied Aquacel AG 4x4 Aquacel AG 4x4 -Primary Dressing Covered/Secured with Dry Gauze,Dry Dry Gauze & Gauze & Roll Roll Gauze, Gauze,Secured Secured with with Tape Tape,Other -Other Covering abd -Aquacel AG 4x4 0 1 Left -Other pts own single layer tubi Treatment Response Procedure Tolerated Well Pain Scale: 0-10 Numeric Is Patient Pain Free? Yes WC - Visit Discharge Discharge Condition Stable Ambulatory Status Wheelchair Transportation Private Auto Accompanied by Facility Type Sales Outfitter Care Facility Wound debrided: left foot lateral and plantar (transmetatarsal amputation stump site) Wound Grade/Stage: 1 Type of Debridement: Excisional debridement Anesthesia Used: 4% Lidocaine Solution Depth: in the subcutaneous layer Percentage of wound debrided: 100 Instrument Used: #15 blade Tissue Removed: fibrous, devitalized subcutaneous, biofilm, slough Severity: Fat Layer Exposed Amount of bleeding with debridement: Mild Bleeding Controlled with: Pressure Patient tolerated procedure: Patient tolerated procedure well Assessment/Plan Assessment/Plan (1) Type 2 diabetes mellitus with diabetic polyneuropathy: CODE(S): E11.42 - Type 2 diabetes mellitus with diabetic polyneuropathy QUALIFIERS: Diabetes mellitus prison insulin use: unspecified middle or intermediate school principal insulin use status Qualified Code(s): E11.42 - Type 2 diabetes mellitus with diabetic polyneuropathy (2) Delayed wound healing: CODE(S): T14.8XXD - Other injury of unspecified body region, subsequent encounter (3) Localized edema: CODE(S): R60.0 - Localized edema (4) Non-pressure chronic ulcer of other part of left foot with fat layer exposed: CODE(S): L97.522 - Non-pressure chronic ulcer of other part of left foot with fat layer exposed PLAN: I reviewed and discussed her case today. Debridement was performed today as noted in the clinical panel to all of the ulcer sites. The following work up and care recommendations were made: Dressing: Aquacel Ag Wash: Antibacterial soap and water Tissue growth optimization: I recommend advanced wound healing product, epi cord which is umbilical and placental derived tissue and also epi fix for when the wound becomes more superficial. She has already completed traditional comprehensive wound care plan and surgical intervention. This is medically necessary for limb salvage. The indications, benefits, anticipated application and management were discussed in detail. She is amendable to proceed. Insurance prior authorization is still pending. Offload: To remain nonweightbearing to left lower extremity. She uses assistive device. She also hangs her heel over stacked pillows while in bed and has an egg crate offloading boot for additional protection. Vascular: She had arterial Doppler performed on 02-05-21 in which there was no stenosis noted. She has triphasic waveforms. She was seen by vascular specialist, Dr. Hugo while in the transitional care unit and additional intervention is not recommended. Edema: To wear Tubigrip which was dispensed today. To elevate at rest. It is also noted she had a recent deep venous thrombosis to the left calf which she was treated with therapeutic anticoagulation medication. Infection: This has resolved locally and clinically. To monitor for return. Is also noted she was under the management of infectious disease during her hospitalization and also during her transition to jail facility with IV antibiotics. She has anticipated completion of her antibiotics by the end of the week. Culture results and details are in [employer] computer software. Pain: Controlled likely secondary to her neuropathy. Host factors: Her comorbidities impair her healing process. She has delays in healing. I recommend continue nutritional supplementation to optimize healing. Labs: Reviewed from white blood cell count 9. CMP reviewed on 04/15 without gross abnormalities. Albumin 2.5. And A1c 6.7% Imaging: Left foot x-ray performed on 02-19-21 with subsequent transmetatarsal amputation without soft tissue emphysema or foreign body or acute other injuries or Charcot event. Deep venous thrombosis management: She is no longer taking Eliquis secondary to nosebleed. She relates she had an updated scan which did not demonstrate continued clotting. She does not have clinical signs of acute blood clot. I answered all the patient's questions. To return to the wound healing center in 1 week or call sooner if the patient has any questions or concerns.
[2021-04-21 10:54] VITALS: BP 133/71; PULSE 67; RESP 18; TEMP 36.4; BMI 26.6
--- NOTE | 2021-04-21 12:02 | PCM.WC.PN ---
History of Present Illness Date of Service: 04/21/21 Chief Complaint: Left foot ulcer History of Wound: This 66-year-old diabetic female with other comorbidities including recent DVT, anemia, neuropathy, and others was seen for a left foot ulcer. She has a complex history of infection with foot surgeries. Her last foot surgery was performed at [facility] on 02-25-21 which included a transmetatarsal amputation with rotational flap. She did have some subsequent flap compromise and this has continued to demarcate while she was residing in the transitional care unit. Now she is in a long-term facility to complete her course of IV antibiotics for treatment of prior infection and for therapy purposes. She denies foot pain today. She has been offloading as advised. The dressing has been changed as advised. She denies fever, chill, nausea, vomiting, redness, odor. She is with her today. She relates she got upset with her long-term facility in regards to some visitation and mask rules and went on a 2-day hunger strike which was finally stopped after administration met with her. Progress of Wound: Stable Objective Data Objective Data Vital Signs: Vital Signs Temp Pulse Resp BP 97.6 F L 67 18 133/71 H 04/21/21 10:54 04/21/21 10:54 04/21/21 10:54 04/21/21 10:54 Oxygen Delivery Method Room Air Weight: 70.307 kg Body Mass Index (BMI) 26.6 Physical Exam Const alert and oriented x3 General Appearance: cooperative HEENT normocephalic Extremity Extremity Narrative: No calf tenderness-including negative Faith and Mchugh sign left lower extremity Diminished pulses Muscle wasting noted Left transmetatarsal amputation noted General Extremity: edema and no tenderness to palpation of joints or extremities; Negative for cyanosis Skin Skin Narrative: no purulence, no streaking, no odor, no infection. granular base with minimal lateral adipose tissue exposure. no eschar or necrosis seen today. There is no probe to bone other adjacent midfoot joints. There is no bogginess or fluctuance. No maceration. General Skin Exam: Negative for erythema Neuro Neuro Narrative: lack of normal epicritic sensation via light touch is consistent with neuropathy status Psych cooperative and affect normal Debridement Note Debridement Note Post-Debridement Measurements and Additional Note: Post-Debridement Measurements/Treatment WC - Nurse 1 - General Ulcer Assessment Start: 04/07/21 13:26 Freq: Status: Active Protocol: WC.LOWEXT Activity Type Activity Date Activity User E-Sign Co-Sign Detail Recorded Client Recorded Date Recorded By Document 04/07/21 13:27 [facility] [id number] 04/07/21 13:38 [facility] Document 04/14/21 15:15 MT [id number] 04/14/21 15:28 MT Document 04/21/21 10:54 DL Desktop 04/21/21 11:02 DL 04/07/21 04/14/21 04/21/21 13:27 15:15 10:54 WC - Today's Visit Information Type of service Initial Visit Follow-up Visit Follow-up Visit (Physician/GRINDING MILL OPERATOR (Physician/GRINDING MILL OPERATOR ) ) Arrival Mode Wheelchair Wheelchair Wheelchair Transfer Assistance Other Other Manual Transfer Assist (Other) 2 assist stand by assist x1 x 1 Accompanied by Patient Identification Verified (Name & Yes Yes ) Patient Requires Transmission-Based No No No Precautions Finger Stick Blood Sugar(mg/dl) (if 139 indicated): Blood Sugar Stated by Patient Height and Weight Height 5 ft 4 in Weight 70.307 kg Weight in Pounds 155.0 lbs Weight Measurement Method Stated by Patient Body Mass Index (BMI) 26.6 26.6 26.6 BMI Classification Overweight Overweight Overweight BSA - Maxwell 1.76 Vital Signs Temperature (97.8 F-99.1 F) 97.6 F L Temperature Source Temporal Temporal Pulse Rate (60-100) 69 78 67 Pulse Location Monitor Monitor Monitor Respiratory Rate (12-18) 16 16 18 Respiratory rate source Observation Observation Observation Oxygen Delivery Method Room Air Room Air Blood Pressure (90/60-120/80) 163/78 H 139/74 H 133/71 H Blood Pressure Mean (mm Hg) 106 95 91 Source Monitor Monitor Monitor Position Sitting Sitting Blood Pressure Location Right Arm Right Arm Have you changed medications since your No No last visit? Any new allergies or adverse reactions No No Had a fall/change in ADL's that may No No increase risk of falls Signs or symptoms of abuse and/or No No neglect since last visit Have you been in the hospital since your No No last visit? Has dressing in place as prescribed Yes Yes Has compression in place as prescribed Yes Yes Has offloadiing in place as prescribed Yes Yes Experienced any changes in pain level or No No management History Since Last Visit- (Skip if this is Patient's initial visit) Right Footwear Regular Shoe Pain Scale: 0-10 Numeric Is Patient Pain Free? Yes Yes Communication Assessment Preferred language Vietnamese Geology Faculty Member Required No Able to Read Yes Able to Write Yes Communication Tools None Right Hearing Abillity Normal Left Hearing Abillity Normal Visual Assistive Devices None Teaching Assessment Preferences Verbal,Written, Audio/Visual, Demonstration Barriers to Learning None Readiness To Learn Excellent Willingness to Engage in Self Management High Activies Readiness to Engage in Self Management High Activities Anxiety Level Calm Cooperation Cooperative Perception Coherent Interest in Health Problem Asks Questions Education Importance Acknowledges Need Does Patient Smoke tobacco or other No substances Smoking Status Never smoker Is Patient Diabetic Yes Functional Assessment Recent Decline in Ability to Perform Ambulation, Bathing,Lower Body Dressing, Toileting, Transferring Culture/Jainism/Date Puller Cultural/Jainism Needs that may affect No Treatment Plan Teaching: Wound Center *Welcome to the Wound Center -Person Taught Patient -Teaching Method Discussion -Response to teaching Verbalize understanding Welcome to the Wound Care Center Vietnamese WC - Nurse 1 - General Ulcer Measurement Start: 04/07/21 13:26 Freq: Status: Active Protocol: Activity Type Activity Date Activity User E-Sign Co-Sign Detail Recorded Client Recorded Date Recorded By Document 04/07/21 13:27 [facility] [id number] 04/07/21 13:38 [facility] Document 04/14/21 15:15 GA [id number] 04/14/21 15:28 GA Document 04/21/21 10:54 DL Desktop 04/21/21 11:02 DL 04/07/21 04/14/21 04/21/21 13:27 15:15 10:54 Wound Center Nurse 1 2-left foot plantar -Combined with other wound No -Current Size (cm) - Length 1.1 0.7 -Current Size (cm) - Width 0.6 0.6 -Current Size (cm) - Depth 2 1.7 -Total Square Cm 0.66 0.42 -Photo Taken No No -Epithelialization None Present -Tunneling Yes -Tunneling Position (O'clock) 12 1 -Tunneling Distance (cm) 2.7 2.8 -Undermining/Tunneling No -Circular Undermining No -Exudate Amt Medium Small -Exudate Type Serosanguineous Serosanguineous -Wound Margin Distinct, Distinct, Outline Outline Attached Attached -Granulation Amt Medium (34-66%) Small (1-33%) -Granulation Quality Red -Slough/Fibrin Yes -Necrosis Amt Medium (34-66%) Small (1-33%) -Necrotic Tissue Type Adherent Slough Adherent Slough -Structure Exposed N/A -Texture (Margy-wound Skin Appearance) Assessed, Scarring Scarring -Moisture (Margy-wound Skin Appearance) Assessed No Abnormality -Color (Margy-wound Skin Appearance) Assessed Rubor -Temperature (Margy-wound Skin No Abnormality No Abnormality Appearance) (Pt Warm) (Pt Warm) -Tenderness on Palpation (Margy-wound No No Skin Appearance) -Ulcer Cleansing Rinsed/ Wound Cleanser Irrigated with Saline -Foul Odor after Cleansing No No -Anesthetic Used 4% Lidocaine 4% Lidocaine Solution Solution #1- L FOOT TRANSMET POST OP -Combined with other wound No No -Current Size (cm) - Length 0.1 0.5 3.8 -Current Size (cm) - Width 0.1 4 0.5 -Current Size (cm) - Depth 0.1 0.2 0.5 -Total Square Cm 0.01 2.0 1.90 -Date of Last Picture (Recall this 04/07/21 field) -Photo Taken Yes No No -Epithelialization None Present -Tunneling No No -Undermining/Tunneling No No -Circular Undermining No No -Exudate Amt None Present Medium Small -Exudate Type Serosanguineous -Wound Margin Distinct, Distinct, Thickened Outline Outline Attached Attached -Granulation Amt Small (1-33%) None Present (0 %) -Granulation Quality Red -Slough/Fibrin Yes Yes -Necrosis Amt Large (67-100%) Large (67-100%) Large (67-100%) -Necrotic Tissue Type Eschar Adherent Slough Adherent Slough -Structure Exposed N/A -Texture (Margy-wound Skin Appearance) Assessed Assessed, Scarring Scarring -Moisture (Margy-wound Skin Appearance) Assessed Assessed No Abnormality -Color (Margy-wound Skin Appearance) Assessed Assessed Rubor -Temperature (Margy-wound Skin No Abnormality No Abnormality No Abnormality Appearance) (Pt Warm) (Pt Warm) (Pt Warm) -Tenderness on Palpation (Margy-wound No No Skin Appearance) -Ulcer Cleansing Wound Cleanser Rinsed/ Wound Cleanser Irrigated with Saline -Foul Odor after Cleansing No No No -Anesthetic Used 4% Lidocaine 4% Lidocaine 4% Lidocaine Solution Solution Solution Lower Limb Edema Present Yes Yes Right Calf (cm) 37.3 Right Ankle (cm) 23.7 Left Calf (cm) 36.5 33 32.5 Left Ankle (cm) 23.5 23 23.3 WC - Nurse 2 - General Ulcer CM Notes Start: 04/07/21 13:26 Freq: Status: Active Protocol: Activity Type Activity Date Activity User E-Sign Co-Sign Detail Recorded Client Recorded Date Recorded By Document 04/07/21 14:26 [id number] 04/07/21 14:31 Document 04/14/21 18:56 PL [id number] 04/14/21 18:58 PL Document 04/21/21 11:18 JF [id number] 04/21/21 11:30 JF 04/07/21 04/14/21 04/21/21 14:26 18:56 11:18 Wound Center Nurse 2 2-left foot plantar -Time 15:38 11:19 -Correct Patient Yes Yes Yes -Correct Side, Site, Position Yes Yes Yes -Correct Procedure Yes Yes Yes -Procedure Performed Yes Yes Yes -Type of Procedure Debridement Debridement Debridement -Clinical Debridement Subcutaneous Subcutaneous Subcutaneous -Tissue Removed Subcutaneous Subcutaneous Subcutaneous -Post Debridement (cm) - Length 3.0 1.1 0.8 -Post Debridement (cm) - Width 1.6 0.6 0.6 -Post Debridement (cm) - Depth 1.3 2.0 1.7 -Total Square (Post) (cm) 4.80 0.66 0.48 -Area of Debridement (cm) - Length 3.0 1.1 0.8 -Area of Debridement (cm) - Width 1.6 0.6 0.6 -Total Square (Area) (cm) 4.80 0.66 0.48 -Tunneling No No No -Undermining/Tunneling No No No -Circular Undermining No No No -Wound/Ulcer Outcome Not Healed Not Healed Not Healed -Ulcer Cleansing Rinsed/ Rinsed/ Rinsed/ Irrigated with Irrigated with Irrigated with Saline Saline Saline -Foul Odor after Cleansing No No No -Bioengineered Tissue No No No -Bleeding Controlled with Pressure Pressure Pressure -Offloading Yes No -Type of Offloading Knee Walker -Treatment Response Procedure Procedure Procedure Tolerated Well Tolerated Well Tolerated Well -Debridement - Subq, 1st 20sq cm No Yes Yes #1- L FOOT TRANSMET POST OP -Time 14:28 15:38 11:19 -Correct Patient Yes Yes Yes -Correct Side, Site, Position Yes Yes Yes -Correct Procedure Yes Yes Yes -Procedure Performed Yes Yes -Type of Procedure Debridement Debridement -Clinical Debridement Subcutaneous Subcutaneous Subcutaneous -Tissue Removed Subcutaneous Subcutaneous Subcutaneous -Post Debridement (cm) - Length 4.3 0.5 3.8 -Post Debridement (cm) - Width 6.7 4.0 0.6 -Post Debridement (cm) - Depth 0.8 0.2 0.5 -Total Square (Post) (cm) 28.81 2.00 2.28 -Area of Debridement (cm) - Length 4.3 0.5 3.8 -Area of Debridement (cm) - Width 6.7 4.0 0.6 -Total Square (Area) (cm) 28.81 2.00 2.28 -Tunneling No No No -Undermining/Tunneling No No No -Circular Undermining No No No -Wound/Ulcer Outcome Not Healed Not Healed Not Healed -Ulcer Cleansing Rinsed/ Rinsed/ Rinsed/ Irrigated with Irrigated with Irrigated with Saline Saline Saline -Foul Odor after Cleansing No No No -Bioengineered Tissue No No Yes -Type of Bioengineered Tissue Epicord -Bleeding Controlled with Pressure Pressure -Offloading Yes No -Type of Offloading Knee Walker -Treatment Response Procedure Procedure Tolerated Well Tolerated Well -Debridement - Subq, 1st 20sq cm Yes No No -Debridement, SubQ, ea addt'l 20sq cm 1 or part thereof -Apply Skin Sub - 1st 25 sq cm - Feet 1 -Epicord (per sq cm) 6 Pain Scale: 0-10 Numeric Is Patient Pain Free? Yes Yes Yes - Nurse 3 - General Ulcer D/C NN Start: 04/07/21 13:26 Freq: Status: Active Protocol: Activity Type Activity Date Activity User E-Sign Co-Sign Detail Recorded Client Recorded Date Recorded By Document 04/07/21 14:40 ML [id number] 04/07/21 14:41 ML Document 04/14/21 16:04 BMF [id number] 04/14/21 16:05 BMF Document 04/21/21 11:51 RB Desktop 04/21/21 11:51 RB 04/07/21 04/14/21 04/21/21 14:40 16:04 11:51 Wound Care Nurse 3 2-left foot plantar -Ulcer Cleansing Rinsed/ Rinsed/ Irrigated with Irrigated with Saline Saline -Foul Odor after Cleansing No No -Primary Dressing Applied Aquacel AG 4x4 Aquacel AG 4x4 -Primary Dressing Covered/Secured with Dry Gauze,Dry Dry Gauze & Dry Gauze,Dry Gauze & Roll Roll Gauze, Gauze & Roll Gauze,Secured Secured with Gauze,Secured with Tape Tape,Other with Tape -Other Covering abd -Aquacel AG 4x4 1 1 #1- L FOOT TRANSMET POST OP -Ulcer Cleansing Rinsed/ Rinsed/ Irrigated with Irrigated with Saline Saline -Foul Odor after Cleansing No No -Primary Dressing Applied Aquacel AG 4x4 Aquacel AG 4x4 -Primary Dressing Covered/Secured with Dry Gauze,Dry Dry Gauze & Dry Gauze,Dry Gauze & Roll Roll Gauze, Gauze & Roll Gauze,Secured Secured with Gauze,Secured with Tape Tape,Other with Tape -Other Covering abd -Aquacel AG 4x4 0 1 Left -Tubular Bandage Single Layer -Size of Tubigrip Used Size D -Size D ($) 1 -Other pts own single layer tubi Treatment Response Procedure Tolerated Well Pain Scale: 0-10 Numeric Is Patient Pain Free? Yes Yes WC - Visit Discharge Discharge Condition Stable Stable Ambulatory Status Wheelchair Wheelchair Transportation Private Auto Private Auto Accompanied by Medication Reconcilliation completed & No provided to patient/care provider Clinical Summary of Care Provided Yes Facility [facility] Wound debrided: left foot Wound Grade/Stage: 1 Type of Debridement: Excisional debridement Anesthesia Used: 4% Lidocaine Solution Depth: in the subcutaneous layer Percentage of wound debrided: 100 Instrument Used: #15 blade Tissue Removed: fibrous, devitalized subcutaneous, biofilm, slough Severity: Fat Layer Exposed Amount of bleeding with debridement: Mild Bleeding Controlled with: Pressure Patient tolerated procedure: Patient tolerated procedure well Assessment/Plan Assessment/Plan (1) Type 2 diabetes mellitus with diabetic polyneuropathy: CODE(S): E11.42 - Type 2 diabetes mellitus with diabetic polyneuropathy QUALIFIERS: Diabetes mellitus watermelon inspector insulin use: unspecified watermelon inspector insulin use status Qualified Code(s): E11.42 - Type 2 diabetes mellitus with diabetic polyneuropathy (2) Delayed wound healing: CODE(S): T14.8XXD - Other injury of unspecified body region, subsequent encounter (3) Localized edema: CODE(S): R60.0 - Localized edema (4) Non-pressure chronic ulcer of other part of left foot with fat layer exposed: CODE(S): L97.522 - Non-pressure chronic ulcer of other part of left foot with fat layer exposed PLAN: I reviewed and discussed her case today. Debridement was performed today as noted in the clinical panel to all of the ulcer sites. The following work up and care recommendations were made: Dressing: Epi cord was applied today. Secondary dry dressing was applied and to leave this intact unless strikethrough is noted. Tissue growth optimization: I recommend advanced wound healing product, epi cord which is umbilical and placental derived tissue and also epi fix for when the wound becomes more superficial. She has already completed traditional comprehensive wound care plan and surgical intervention. This is medically necessary for limb salvage. The indications, benefits, anticipated application and management were discussed in detail. Verbal consent was obtained and this was applied according to standard protocol. She tolerated this well. This was secured in place with a wound veil and Steri-Strips. Offload: To remain nonweightbearing to left lower extremity. She uses assistive device. She also hangs her heel over stacked pillows while in bed and has an egg crate offloading boot for additional protection. Vascular: She had arterial Doppler performed on 02-05-21 in which there was no stenosis noted. She has triphasic waveforms. She was seen by vascular specialist, Dr. Hugo while in the transitional care unit and additional intervention is not recommended. Edema: To wear Tubigrip which was dispensed today. To elevate at rest. It is also noted she had a recent deep venous thrombosis to the left calf which she was treated with therapeutic anticoagulation medication. Infection: This has resolved locally and clinically. To monitor for return. Is also noted she was under the management of infectious disease during her hospitalization and also during her transition to long-term facility with IV antibiotics. She has anticipated completion of her antibiotics by the end of the week. Culture results and details are in [employer] computer software. Pain: Controlled likely secondary to her neuropathy. Host factors: Her comorbidities impair her healing process. She has delays in healing. I recommend continue nutritional supplementation to optimize healing. I advised her that the hunger strike is not beneficial for her personal health and wound healing. Labs: Reviewed from white blood cell count 9. CMP reviewed on 04/15 without gross abnormalities. Albumin 2.5. And A1c 6.7% Imaging: Left foot x-ray performed on 02-19-21 with subsequent transmetatarsal amputation without soft tissue emphysema or foreign body or acute other injuries or Charcot event. Deep venous thrombosis management: She is no longer taking Eliquis secondary to nosebleed. She relates she had an updated scan which did not demonstrate continued clotting. She does not have clinical signs of acute blood clot. I answered all the patient's questions. To return to the wound healing center in 1 week or call sooner if the patient has any questions or concerns.
[2021-04-28 10:25] VITALS: BP 119/59; PULSE 68; RESP 18; TEMP 36.4; BMI 26.6
--- NOTE | 2021-04-28 10:29 | WC ---
steristrips with veil ,epicord intact. wound not measurted today
--- NOTE | 2021-04-28 10:40 | PN.PCM_ITS ---
History of Present Illness Date of Service: 04/28/21 Chief Complaint: Left foot ulcer History of Wound: This 66-year-old diabetic female with other comorbidities including recent DVT, anemia, neuropathy, and others was seen for a left foot ulcer. She has a complex history of infection with foot surgeries. Her last foot surgery was performed at [facility] on 02-25-21 which included a transmetatarsal amputation with rotational flap. She did have some subsequent flap compromise and this has continued to demarcate while she was residing in the transitional care unit. Now she is in a senior care facility to complete her course of IV antibiotics for treatment of prior infection and for therapy purposes. She has been offloading as advised. She denies fever, chill, nausea, vomiting, redness, odor. She is with her today. She kept her epi cord and dressing clean and intact as advised. She is moving to assisted living this upcoming week and is very happy. Progress of Wound: Stable Objective Data Objective Data Vital Signs: Vital Signs Temp Pulse Resp BP 97.5 F L 68 18 119/59 L 04/28/21 10:25 04/28/21 10:25 04/28/21 10:25 04/28/21 10:25 Oxygen Delivery Method Room Air Weight: 70.307 kg Body Mass Index (BMI) 26.6 Physical Exam Const alert and oriented x3 General Appearance: cooperative HEENT normocephalic Extremity Extremity Narrative: No calf tenderness-including negative Faith and Mchugh sign left lower extremity Diminished pulses Muscle wasting noted Left transmetatarsal amputation noted General Extremity: edema and no tenderness to palpation of joints or extremities; Negative for cyanosis Skin Skin Narrative: no purulence, no streaking, no odor, no infection. granular base with minimal lateral adipose tissue exposure. no eschar or necrosis seen today. There is no bogginess or fluctuance. No maceration. Previously applied epi cord remains intact and incorporating well with a wound veil and Steri-Strips General Skin Exam: Negative for erythema Neuro Neuro Narrative: lack of normal epicritic sensation via light touch is consistent with neuropathy status Psych cooperative and affect normal Debridement Note Debridement Note Post-Debridement Measurements and Additional Note: Post-Debridement Measurements/Treatment LEO - Nurse 1 - General Ulcer Assessment Start: 04/07/21 13:26 Freq: Status: Active Protocol: [place] Activity Type Activity Date Activity User E-Sign Co-Sign Detail Recorded Client Recorded Date Recorded By Document 04/07/21 13:27 [facility] [id number] 04/07/21 13:38 [facility] Document 04/14/21 15:15 MT [id number] 04/14/21 15:28 MT Document 04/21/21 10:54 DL Desktop 04/21/21 11:02 DL Document 04/28/21 10:25 RB Desktop 04/28/21 10:31 RB 04/07/21 04/14/21 04/21/21 13:27 15:15 10:54 WC - Today's Visit Information Type of service Initial Visit Follow-up Visit Follow-up Visit (Physician/HOT ROOM ATTENDANT (Physician/HOT ROOM ATTENDANT ) ) Arrival Mode Wheelchair Wheelchair Wheelchair Transfer Assistance Other Other Manual Transfer Assist (Other) 2 assist stand by assist x1 x 1 Accompanied by Patient Identification Verified (Name & Yes Yes ) Patient Requires Transmission-Based No No No Precautions Finger Stick Blood Sugar(mg/dl) (if 139 indicated): Blood Sugar Stated by Patient Height and Weight Height 5 ft 4 in Weight 70.307 kg Weight in Pounds 155.0 lbs Weight Measurement Method Stated by Patient Body Mass Index (BMI) 26.6 26.6 26.6 BMI Classification Overweight Overweight Overweight BSA - Maxwell 1.76 Vital Signs Temperature (97.8 F-99.1 F) 97.6 F L Temperature Source Temporal Temporal Pulse Rate (60-100) 69 78 67 Pulse Location Monitor Monitor Monitor Respiratory Rate (12-18) 16 16 18 Respiratory rate source Observation Observation Observation Oxygen Delivery Method Room Air Room Air Blood Pressure (90/60-120/80) 163/78 H 139/74 H 133/71 H Blood Pressure Mean (mm Hg) 106 95 91 Source Monitor Monitor Monitor Position Sitting Sitting Blood Pressure Location Right Arm Right Arm Have you changed medications since your No No last visit? Any new allergies or adverse reactions No No Had a fall/change in ADL's that may No No increase risk of falls Signs or symptoms of abuse and/or No No neglect since last visit Have you been in the hospital since your No No last visit? Has dressing in place as prescribed Yes Yes Has compression in place as prescribed Yes Yes Has offloadiing in place as prescribed Yes Yes Experienced any changes in pain level or No No management History Since Last Visit- (Skip if this is Patient's initial visit) Left Footwear Right Footwear Regular Shoe Pain Scale: 0-10 Numeric Is Patient Pain Free? Yes Yes Communication Assessment Preferred language Nauruan Journeyman Tool And Die Maker Required No Able to Read Yes Able to Write Yes Communication Tools None Right Hearing Abillity Normal Left Hearing Abillity Normal Visual Assistive Devices None Teaching Assessment Preferences Verbal,Written, Audio/Visual, Demonstration Barriers to Learning None Readiness To Learn Excellent Willingness to Engage in Self Management High Activies Readiness to Engage in Self Management High Activities Anxiety Level Calm Cooperation Cooperative Perception Coherent Interest in Health Problem Asks Questions Education Importance Acknowledges Need Does Patient Smoke tobacco or other No substances Smoking Status Never smoker Is Patient Diabetic Yes Functional Assessment Recent Decline in Ability to Perform Ambulation, Bathing,Lower Body Dressing, Toileting, Transferring Culture/Zoroastrian/Diagnostic Radiologist Cultural/Zoroastrian Needs that may affect No Treatment Plan Teaching: Wound Center *Welcome to the Wound Center -Person Taught Patient -Teaching Method Discussion -Response to teaching Verbalize understanding Welcome to the Wound Care Center Nauruan 04/28/21 10:25 WC - Today's Visit Information Type of service Follow-up Visit (Physician/HOT ROOM ATTENDANT ) Arrival Mode Ambulatory Transfer Assistance None Transfer Assist (Other) Accompanied by Patient Identification Verified (Name & Yes ) Patient Requires Transmission-Based No Precautions Finger Stick Blood Sugar(mg/dl) (if indicated): Blood Sugar Height and Weight Height Weight Weight in Pounds Weight Measurement Method Body Mass Index (BMI) 26.6 BMI Classification Overweight [facility] [place] Vital Signs Temperature (97.8 F-99.1 F) 97.5 F L Temperature Source Oral Pulse Rate (60-100) 68 Pulse Location Monitor Respiratory Rate (12-18) 18 Respiratory rate source Observation Oxygen Delivery Method Blood Pressure (90/60-120/80) 119/59 L Blood Pressure Mean (mm Hg) 79 Source Monitor Position Semi-Fowlers Blood Pressure Location Left Arm Have you changed medications since your No last visit? Any new allergies or adverse reactions No Had a fall/change in ADL's that may No increase risk of falls Signs or symptoms of abuse and/or No neglect since last visit Have you been in the hospital since your No last visit? Has dressing in place as prescribed Yes Has compression in place as prescribed No Has offloadiing in place as prescribed No Experienced any changes in pain level or No management History Since Last Visit- (Skip if this is Patient's initial visit) Left Footwear Regular Shoe Right Footwear Regular Shoe Pain Scale: 0-10 Numeric Is Patient Pain Free? Yes Communication Assessment Preferred bilingual speech language pathologist Required Able to Read Able to Write Communication Tools Right Hearing Abillity Left Hearing Abillity Visual Assistive Devices Teaching Assessment Preferences Barriers to Learning Readiness To Learn Willingness to Engage in Self Management Activies Readiness to Engage in Self Management Activities Anxiety Level Cooperation Perception Interest in Health Problem Education Importance Does Patient Smoke tobacco or other substances Smoking Status Is Patient Diabetic Functional Assessment Recent Decline in Ability to Perform Culture/Zoroastrian/Diagnostic Radiologist Cultural/Zoroastrian Needs that may affect Treatment Plan Teaching: Wound Center *Welcome to the Wound Center -Person Taught -Teaching Method -Response to teaching Welcome to the Wound Care Center WC - Nurse 1 - General Ulcer Measurement Start: 04/07/21 13:26 Freq: Status: Active Protocol: Activity Type Activity Date Activity User E-Sign Co-Sign Detail Recorded Client Recorded Date Recorded By Document 04/07/21 13:27 [facility] [id number] 04/07/21 13:38 [facility] Document 04/14/21 15:15 MT [id number] 04/14/21 15:28 MT Document 04/21/21 10:54 DL Desktop 04/21/21 11:02 DL Document 04/28/21 10:25 RB Desktop 04/28/21 10:31 RB 04/07/21 04/14/21 04/21/21 13:27 15:15 10:54 Wound Center Nurse 1 2-left foot plantar -Combined with other wound No -Current Size (cm) - Length 1.1 0.7 -Current Size (cm) - Width 0.6 0.6 -Current Size (cm) - Depth 2 1.7 -Total Square Cm 0.66 0.42 -Photo Taken No No -Epithelialization None Present -Tunneling Yes -Tunneling Position (O'clock) 12 1 -Tunneling Distance (cm) 2.7 2.8 -Undermining/Tunneling No -Circular Undermining No -Exudate Amt Medium Small -Exudate Type Serosanguineous Serosanguineous -Wound Margin Distinct, Distinct, Outline Outline Attached Attached -Granulation Amt Medium (34-66%) Small (1-33%) -Granulation Quality Red -Slough/Fibrin Yes -Necrosis Amt Medium (34-66%) Small (1-33%) -Necrotic Tissue Type Adherent Slough Adherent Slough -Structure Exposed N/A -Texture (Margy-wound Skin Appearance) Assessed, Scarring Scarring -Moisture (Margy-wound Skin Appearance) Assessed No Abnormality -Color (Margy-wound Skin Appearance) Assessed Rubor -Temperature (Margy-wound Skin No Abnormality No Abnormality Appearance) (Pt Warm) (Pt Warm) -Tenderness on Palpation (Margy-wound No No Skin Appearance) -Ulcer Cleansing Rinsed/ Wound Cleanser Irrigated with Saline -Foul Odor after Cleansing No No -Anesthetic Used 4% Lidocaine 4% Lidocaine Solution Solution #1- L FOOT TRANSMET POST OP -Combined with other wound No No -Current Size (cm) - Length 0.1 0.5 3.8 -Current Size (cm) - Width 0.1 4 0.5 -Current Size (cm) - Depth 0.1 0.2 0.5 -Total Square Cm 0.01 2.0 1.90 -Date of Last Picture (Recall this 04/07/21 field) -Photo Taken Yes No No -Epithelialization None Present -Tunneling No No -Undermining/Tunneling No No -Circular Undermining No No -Exudate Amt None Present Medium Small -Exudate Type Serosanguineous -Wound Margin Distinct, Distinct, Thickened Outline Outline Attached Attached -Granulation Amt Small (1-33%) None Present (0 %) -Granulation Quality Red -Slough/Fibrin Yes Yes -Necrosis Amt Large (67-100%) Large (67-100%) Large (67-100%) -Necrotic Tissue Type Eschar Adherent Slough Adherent Slough -Structure Exposed N/A -Texture (Margy-wound Skin Appearance) Assessed Assessed, Scarring Scarring -Moisture (Margy-wound Skin Appearance) Assessed Assessed No Abnormality -Color (Margy-wound Skin Appearance) Assessed Assessed Rubor -Temperature (Margy-wound Skin No Abnormality No Abnormality No Abnormality Appearance) (Pt Warm) (Pt Warm) (Pt Warm) -Tenderness on Palpation (Margy-wound No No Skin Appearance) -Ulcer Cleansing Wound Cleanser Rinsed/ Wound Cleanser Irrigated with Saline -Foul Odor after Cleansing No No No -Anesthetic Used 4% Lidocaine 4% Lidocaine 4% Lidocaine Solution Solution Solution Lower Limb Edema Present Yes Yes Right Calf (cm) 37.3 Right Ankle (cm) 23.7 Left Calf (cm) 36.5 33 32.5 Left Ankle (cm) 23.5 23 23.3 04/28/21 10:25 Wound Center Nurse 1 2-left foot plantar -Combined with other wound No -Current Size (cm) - Length 0.1 -Current Size (cm) - Width 0.1 -Current Size (cm) - Depth 0.1 -Total Square Cm 0.01 -Photo Taken -Epithelialization -Tunneling No -Tunneling Position (O'clock) -Tunneling Distance (cm) -Undermining/Tunneling No -Circular Undermining No -Exudate Amt -Exudate Type -Wound Margin -Granulation Amt -Granulation Quality -Slough/Fibrin -Necrosis Amt -Necrotic Tissue Type -Structure Exposed N/A -Texture (Margy-wound Skin Appearance) Assessed -Moisture (Margy-wound Skin Appearance) Assessed -Color (Margy-wound Skin Appearance) Assessed -Temperature (Margy-wound Skin No Abnormality Appearance) (Pt Warm) -Tenderness on Palpation (Margy-wound No Skin Appearance) -Ulcer Cleansing -Foul Odor after Cleansing -Anesthetic Used #1- L FOOT TRANSMET POST OP -Combined with other wound -Current Size (cm) - Length -Current Size (cm) - Width -Current Size (cm) - Depth -Total Square Cm -Date of Last Picture (Recall this field) -Photo Taken -Epithelialization -Tunneling No -Undermining/Tunneling No -Circular Undermining No -Exudate Amt -Exudate Type -Wound Margin -Granulation Amt -Granulation Quality -Slough/Fibrin -Necrosis Amt -Necrotic Tissue Type -Structure Exposed -Texture (Margy-wound Skin Appearance) Assessed -Moisture (Margy-wound Skin Appearance) Assessed -Color (Margy-wound Skin Appearance) Assessed -Temperature (Margy-wound Skin No Abnormality Appearance) (Pt Warm) -Tenderness on Palpation (Margy-wound No Skin Appearance) -Ulcer Cleansing -Foul Odor after Cleansing -Anesthetic Used Lower Limb Edema Present Right Calf (cm) Right Ankle (cm) Left Calf (cm) Left Ankle (cm) 04/28/21 10:29 Wound Center by Abbie Almazan with veil ,epicord intact. wound not measurted today Initialized on 04/28/21 10:29 - END OF NOTE WC - Nurse 2 - General Ulcer CM Notes Start: 04/07/21 13:26 Freq: Status: Active Protocol: Activity Type Activity Date Activity User E-Sign Co-Sign Detail Recorded Client Recorded Date Recorded By Document 04/07/21 14:26 [id number] 04/07/21 14:31 Document 04/14/21 18:56 PL [id number] 04/14/21 18:58 PL Document 04/21/21 11:18 [id number] 04/21/21 11:30 04/07/21 04/14/21 04/21/21 14:26 18:56 11:18 Wound Center Nurse 2 2-left foot plantar -Time 15:38 11:19 -Correct Patient Yes Yes Yes -Correct Side, Site, Position Yes Yes Yes -Correct Procedure Yes Yes Yes -Procedure Performed Yes Yes Yes -Type of Procedure Debridement Debridement Debridement -Clinical Debridement Subcutaneous Subcutaneous Subcutaneous -Tissue Removed Subcutaneous Subcutaneous Subcutaneous -Post Debridement (cm) - Length 3.0 1.1 0.8 -Post Debridement (cm) - Width 1.6 0.6 0.6 -Post Debridement (cm) - Depth 1.3 2.0 1.7 -Total Square (Post) (cm) 4.80 0.66 0.48 -Area of Debridement (cm) - Length 3.0 1.1 0.8 -Area of Debridement (cm) - Width 1.6 0.6 0.6 -Total Square (Area) (cm) 4.80 0.66 0.48 -Tunneling No No No -Undermining/Tunneling No No No -Circular Undermining No No No -Wound/Ulcer Outcome Not Healed Not Healed Not Healed -Ulcer Cleansing Rinsed/ Rinsed/ Rinsed/ Irrigated with Irrigated with Irrigated with Saline Saline Saline -Foul Odor after Cleansing No No No -Bioengineered Tissue No No No -Bleeding Controlled with Pressure Pressure Pressure -Offloading Yes No -Type of Offloading Knee Walker -Treatment Response Procedure Procedure Procedure Tolerated Well Tolerated Well Tolerated Well -Debridement - Subq, 1st 20sq cm No Yes Yes #1- L FOOT TRANSMET POST OP -Time 14:28 15:38 11:19 -Correct Patient Yes Yes Yes -Correct Side, Site, Position Yes Yes Yes -Correct Procedure Yes Yes Yes -Procedure Performed Yes Yes -Type of Procedure Debridement Debridement -Clinical Debridement Subcutaneous Subcutaneous Subcutaneous -Tissue Removed Subcutaneous Subcutaneous Subcutaneous -Post Debridement (cm) - Length 4.3 0.5 3.8 -Post Debridement (cm) - Width 6.7 4.0 0.6 -Post Debridement (cm) - Depth 0.8 0.2 0.5 -Total Square (Post) (cm) 28.81 2.00 2.28 -Area of Debridement (cm) - Length 4.3 0.5 3.8 -Area of Debridement (cm) - Width 6.7 4.0 0.6 -Total Square (Area) (cm) 28.81 2.00 2.28 -Tunneling No No No -Undermining/Tunneling No No No -Circular Undermining No No No -Wound/Ulcer Outcome Not Healed Not Healed Not Healed -Ulcer Cleansing Rinsed/ Rinsed/ Rinsed/ Irrigated with Irrigated with Irrigated with Saline Saline Saline -Foul Odor after Cleansing No No No -Bioengineered Tissue No No Yes -Type of Bioengineered Tissue Epicord -Bleeding Controlled with Pressure Pressure -Offloading Yes No -Type of Offloading Knee Walker -Treatment Response Procedure Procedure Tolerated Well Tolerated Well -Debridement - Subq, 1st 20sq cm Yes No No -Debridement, SubQ, ea addt'l 20sq cm 1 or part thereof -Apply Skin Sub - 1st 25 sq cm - Feet 1 -Epicord (per sq cm) 6 Pain Scale: 0-10 Numeric Is Patient Pain Free? Yes Yes Yes WC - Nurse 3 - General Ulcer D/C NN Start: 04/07/21 13:26 Freq: Status: Active Protocol: Activity Type Activity Date Activity User E-Sign Co-Sign Detail Recorded Client Recorded Date Recorded By Document 04/07/21 14:40 ML [id number] 04/07/21 14:41 ML Document 04/14/21 16:04 BM [id number] 04/14/21 16:05 BMF Document 04/21/21 11:51 RB Desktop 04/21/21 11:51 RB 04/07/21 04/14/21 04/21/21 14:40 16:04 11:51 Wound Care Nurse 3 2-left foot plantar -Ulcer Cleansing Rinsed/ Rinsed/ Irrigated with Irrigated with Saline Saline -Foul Odor after Cleansing No No -Primary Dressing Applied Aquacel AG 4x4 Aquacel AG 4x4 -Primary Dressing Covered/Secured with Dry Gauze,Dry Dry Gauze & Dry Gauze,Dry Gauze & Roll Roll Gauze, Gauze & Roll Gauze,Secured Secured with Gauze,Secured with Tape Tape,Other with Tape -Other Covering abd -Aquacel AG 4x4 1 1 #1- L FOOT TRANSMET POST OP -Ulcer Cleansing Rinsed/ Rinsed/ Irrigated with Irrigated with Saline Saline -Foul Odor after Cleansing No No -Primary Dressing Applied Aquacel AG 4x4 Aquacel AG 4x4 -Primary Dressing Covered/Secured with Dry Gauze,Dry Dry Gauze & Dry Gauze,Dry Gauze & Roll Roll Gauze, Gauze & Roll Gauze,Secured Secured with Gauze,Secured with Tape Tape,Other with Tape -Other Covering abd -Aquacel AG 4x4 0 1 Left -Tubular Bandage Single Layer -Size of Tubigrip Used Size D -Size D ($) 1 -Other pts own single layer tubi Treatment Response Procedure Tolerated Well Pain Scale: 0-10 Numeric Is Patient Pain Free? Yes Yes WC - Visit Discharge Discharge Condition Stable Stable Ambulatory Status Wheelchair Wheelchair Transportation Private Auto Private Auto Accompanied by Medication Reconcilliation completed & No provided to patient/care provider Clinical Summary of Care Provided Yes Facility Type [facility] Assessment/Plan Assessment/Plan (1) Type 2 diabetes mellitus with diabetic polyneuropathy: CODE(S): E11.42 - Type 2 diabetes mellitus with diabetic polyneuropathy QUALIFIERS: Diabetes mellitus academic vice president insulin use: unspecified half-way insulin use status Qualified Code(s): E11.42 - Type 2 diabetes leon litus with diabetic polyneuropathy (2) Delayed wound healing: CODE(S): T14.8XXD - Other injury of unspecified body region, subsequent encounter (3) Localized edema: CODE(S): R60.0 - Localized edema (4) Non-pressure chronic ulcer of other part of left foot with fat layer exposed: CODE(S): L97.522 - Non-pressure chronic ulcer of other part of left foot with fat layer exposed PLAN: I reviewed and discussed her case today. Debridement was performed today as noted in the clinical panel to all of the ulcer sites. The following work up and care recommendations were made: Dressing: Epi cord was last visit and was ketp intact today. An updated secondary dry dressing was applied and to leave this intact unless strikethrough is noted. Tissue growth optimization: I recommend advanced wound healing product, epi cord which is umbilical and placental derived tissue and also epi fix for when the wound becomes more superficial. She has already completed traditional comprehensive wound care plan and surgical intervention. This is medically necessary for limb salvage. The indications, benefits, anticipated application and management were discussed in detail. Reapplication will be considered again next week. Offload: To remain nonweightbearing to left lower extremity. She uses assistive device. She also hangs her heel over stacked pillows while in bed and has an egg crate offloading boot for additional protection. Vascular: She had arterial Doppler performed on 02-05-21 in which there was no stenosis noted. She has triphasic waveforms. She was seen by vascular specialist, Dr. Hugo while in the transitional care unit and additional intervention is not recommended. Edema: To wear Tubigrip which was dispensed today. To elevate at rest. It is also noted she had a recent deep venous thrombosis to the left calf which she was treated with therapeutic anticoagulation medication. Infection: This has resolved locally and clinically. To monitor for return. Is also noted she was under the management of infectious disease during her hospitalization and also during her transition to senior care facility with IV antibiotics. She has anticipated completion of her antibiotics by the end of the week. Culture results and details are in [employer] computer software. Pain: Controlled likely secondary to her neuropathy. Host factors: Her comorbidities impair her healing process. She has delays in healing. I recommend continue nutritional supplementation to optimize healing. I advised her that the hunger strike is not beneficial for her personal health and wound healing. Labs: Reviewed from white blood cell count 9. CMP reviewed on 04/15 without gross abnormalities. Albumin 2.5. And A1c 6.7% Imaging: Left foot x-ray performed on 02-19-21 with subsequent transmetatarsal amputation without soft tissue emphysema or foreign body or acute other injuries or Charcot event. Deep venous thrombosis management: She is no longer taking Eliquis secondary to nosebleed. She relates she had an updated scan which did not demonstrate continued clotting. She does not have clinical signs of acute blood clot. I answered all the patient's questions. To return to the wound healing center in 1 week or call sooner if the patient has any questions or concerns. The medical decision making level is low. There is noted low risk of morbidity after considering this treatment plan and diagnostic data. The problems addressed require a low medical decision making level which includ es two or more minor problems, a stable chronic illness, or an acute uncomplicated illness or injury.
== END 2021-04-28 23:59 ==
LOC: WC 10:30
PROVIDERS: PCP Family Medicine; Visit Provider Podiatrist
DX: E11.621 Type 2 diabetes mellitus with foot ulcer (principal); E11.42 Type 2 diabetes mellitus with diabetic polyneuropathy; L97.522 Non-pressure chronic ulcer of other part of left foot with fat layer exposed; R60.0 Localized edema; Z86.718 Personal history of other venous thrombosis and embolism; Z89.432 Acquired absence of left foot; Z79.899 Other long term (current) drug therapy; Z79.82 Long term (current) use of aspirin
CPT/HCPCS: 11042; 11045; 15275; 99213; Q4187; G0463

== ENCOUNTER 2021-04-30 22:05 | Emergency (ER) | payer MEDICARE, OTHER, SELFPAY ==
[2021-04-30 22:06] VITALS: BP 180/81; PULSE 67; RESP 18; TEMP 36.3; O2SAT 98; BMI 28.3
--- NOTE | 2021-04-30 22:53 | EX.ED.DYSGE1 ---
HPI History of Present Illness Chief Complaint: Other, Pain/Inj Informant: patient Onset/Context/Timing Onset: Today Location: Left arm Worsened by: Nothing Relieved by: Nothing Narrative Narrative: Patient presents to have her PICC line removed. Patient states she has been unable to flush it since yesterday. Patient states her primary care physician referred her to the emergency department to have this removed. Patient denies any pain or swelling. Patient denies any fevers or chills. Patient denies any chest pain or shortness of breath. Patient admits to some chronic nausea but denies any vomiting. PFSH PFSH Home Medications acetaminophen 1,000 mg PO Q6H PRN #0 tab 03/25/21 [Rx Last Taken Unknown] acetaminophen 500 mg PO Q6H PRN PRN #0 tab 03/25/21 [Rx Last Taken Unknown] acidophilus-pectin, citrus 1 tab PO TID #0 tab 03/25/21 [Rx Last Taken Unknown] albuterol sulfate [Ventolin HFA] 1 puff INHALATION Q4H PRN PRN #0 g 03/25/21 [Rx Last Taken Unknown] cuhan-lkun-MeFKD-qhgdjf-vl-brl [Alfredo (with collagen)] 1 packet PO BIDCM #0 ea 03/25/21 [Rx Last Taken Unknown] aspirin 81 mg PO DAILY@0800 #0 tab 03/25/21 [Rx Last Taken Unknown] fluticasone propion-salmeterol [Wixela Inhub] 1 puff INHALATION Q12 #0 ea 03/25/21 [Rx Last Taken Unknown] gabapentin 300 mg PO BID #0 cap 03/25/21 [Rx Last Taken Unknown] gabapentin 600 mg PO QHS #0 tab 03/25/21 [Rx Last Taken Unknown] guaifenesin [Mucus Relief ER] 1,200 mg PO BID #0 tab 03/25/21 [Rx Last Taken Unknown] hydrocodone-acetaminophen 1 - 2 tab PO Q6H PRN PRN 7 Days #28 tab 03/25/21 [Rx Last Taken Unknown] hydrocortisone 1 applic TOPICAL TID PRN PRN #0 g 03/25/21 [Rx Last Taken Unknown] txhoyq-kanfebzw-zsobgwd [Creon] 1 capsule PO TIDCM #0 cap 03/25/21 [Rx Last Taken Unknown] loperamide 4 mg PO 4X/DAY #0 cap 03/25/21 [Rx Last Taken Unknown] menthol-zinc oxide [Calmoseptine] 1 applic TOPICAL BID #0 g 03/25/21 [Rx Last Taken Unknown] nystatin [Nyamyc] 1 applic TOPICAL TID #0 g 03/25/21 [Rx Last Taken Unknown] ondansetron 4 mg PO Q6H PRN PRN #0 tab 03/25/21 [Rx Last Taken Unknown] pantoprazole 40 mg PO BID #0 tab 03/25/21 [Rx Last Taken Unknown] polysaccharide iron complex [Ferrex 150] 150 mg PO DAILYCM #0 cap 03/25/21 [Rx Last Taken Unknown] povidone-iodine [Betadine] 10 ml TOPICAL Q48 #0 ml 03/25/21 [Rx Last Taken Unknown] sodium hypochlorite [HySept] 1 applic TOPICAL DAILY #0 ml 03/25/21 [Rx Last Taken Unknown] vancomycin [Firvanq] 125 mg PO QODAY #0 ml 03/25/21 [Rx Last Taken Unknown] Allergy/AdvReac Type Severity Reaction Status Date / Time cefprozil Allergy Shortness Verified 04/30/21 22:08 of breath ceftriaxone Allergy Hives Verified 04/30/21 22:08 clindamycin Allergy Rash Verified 04/30/21 22:08 enalapril Allergy Other Verified 04/30/21 22:08 enoxaparin Allergy Rash Verified 04/30/21 22:08 heparin Allergy Rash Verified 04/30/21 22:08 levalbuterol Allergy Other Verified 04/30/21 22:08 morphine Allergy Shortness Verified 04/30/21 22:08 of breath Penicillins Allergy Anaphylaxis Verified 04/30/21 22:08 shellfish derived Allergy Anaphylaxis Verified 04/30/21 22:08 valsartan Allergy Other Verified 04/30/21 22:08 vancomycin Allergy Rash Verified 04/30/21 22:08 Surgical History (Updated 04/30/21 @ 22:[address] Aneesh Azul DO) History of appendectomy History of eye surgery History of foot surgery History of lumpectomy History of tubal ligation Social History Smoking Status: Never smoker ROS ROS ED Constitutional Constitutional ED: Denies chills or fever(s) Eyes Eyes: Denies blurry vision or change in vision ENT ENT ED: Denies rhinorrhea or sore throat Cardiovascular Cardiovascular: Denies chest pain or palpitations Respiratory/Chest Respiratory/Chest: Denies cough or dyspnea Gastrointestinal Gastrointestinal: Reports nausea; Denies vomiting Genitourinary Genitourinary ED: Denies dysuria or hematuria Musculoskeletal Musculoskeletal: Reports back pain; Denies neck pain Integumentary Denies abscess or rash Neurologic Neurologic: Denies headache(s) or weakness Allergic/Immunologic Allergic/Immunologic ED: Denies mouth swelling or urticaria EXAM Physical Exam Const Vital Signs: 04/30/21 22:06 04/30/21 22:20 Temperature 97.3 F L Temperature Source Temporal Pulse Rate 67 Respiratory Rate 18 Respiratory Effort Normal Respiratory Pattern Normal Blood Pressure 180/81 H Blood Pressure Mean 114 Pulse Ox 98 Oxygen Delivery Method Room Air Positive well nourished and well developed General Appearance ED: well developed Extremity Extremity Narrative: There is a PICC line in place in the left antecubital area. There is no surrounding erythema. There is no warmth. There is no edema. There are no signs of infection. There is full range of motion of the left upper extremity. Radial pulses are equal bilateral. Capillary refill was less than 2 seconds in all digits. There are no sensory deficits noted. Neuro oriented x3, CN's II-XII intact bilaterally and no sensory deficits noted Sensorium / Orientation: alert Psych mental status grossly normal MDM MDM MDM Narrative Medical decision making narrative: Nursing material crew supervisor was contacted to remove the PICC line. Discharge Plan Triage Chief Complaint: Other, Pain/Inj ED Provider: Aneesh Azul Dx/Rx/DC Orders Clinical Impression: PIC line (peripherally inserted central catheter) removal Instructions: ED PICC Line Care Prescriptions: No Action fluticasone propion-salmeterol [Wixela Inhub] 250-50 mcg/dose Blister With Device 1 puff inhalation Q12 Qty: 0 RF: 0 gabapentin 600 mg Tablet 600 mg PO QHS Qty: 0 RF: 0 loperamide 2 mg Capsule 4 mg PO 4X/DAY Qty: 0 RF: 0 hydrocodone-acetaminophen 5-325 mg Tablet 1 - 2 tab PO Q6H PRN PRN (Reason: Pain Score 4-10) 7 Days Qty: 28 RF: 0 polysaccharide iron complex [Ferrex 150] 150 mg iron Capsule 150 mg PO DAILYCM Qty: 0 RF: 0 acetaminophen 500 mg Tablet 1,000 mg PO Q6H PRN (Reason: Fever) Qty: 0 RF: 0 acetaminophen 500 mg Tablet 500 mg PO Q6H PRN PRN (Reason: Pain Score 1-5) Qty: 0 RF: 0 pantoprazole 40 mg Tablet,Delayed Release (Dr/Ec) 40 mg PO BID Qty: 0 RF: 0 gabapentin 300 mg Capsule 300 mg PO BID Qty: 0 RF: 0 aspirin 81 mg Tablet,Chewable 81 mg PO DAILY@0800 Qty: 0 RF: 0 hydrocortisone 2.5 % Cream 1 applic topical TID PRN PRN (Reason: Itching) Qty: 0 RF: 0 nystatin [Nyamyc] 100,000 unit/gram Powder 1 applic topical TID Qty: 0 RF: 0 albuterol sulfate [Ventolin HFA] 90 mcg/actuation Hfa Aerosol Inhaler 1 puff inhalation Q4H PRN PRN (Reason: SHORTNESS OF BREATH) Qty: 0 RF: 0 ondansetron 4 mg Tablet,Disintegrating 4 mg PO Q6H PRN PRN (Reason: NAUSEA) Qty: 0 RF: 0 HySept 0.25 % Solution 1 applic topical DAILY Qty: 0 RF: 0 povidone-iodine [Betadine] 10 % Solution 10 ml topical Q48 Qty: 0 RF: 0 acidophilus-pectin, citrus 25 million cell -100 mg Tablet 1 tab PO TID Qty: 0 RF: 0 Creon 6,000-19,000 -30,000 unit Capsule,Delayed Release(Dr/Ec) 1 capsule PO TIDCM Qty: 0 RF: 0 Calmoseptine 0.44-20.6 % Ointment 1 applic topical BID Qty: 0 RF: 0 guaifenesin [Mucus Relief ER] 600 mg Tablet Extended Release 12hr 1,200 mg PO BID Qty: 0 RF: 0 Alfredo (with collagen) 7-7-1.5 gram Powder In Packet 1 packet PO BIDCM Qty: 0 RF: 0 Firvanq 25 mg/mL Recon Soln 125 mg PO QODAY Qty: 0 RF: 0 Primary Care Provider: Cody Billings Referrals: Cody Billings MD [Primary Care Provider] - 5-7 Days Disposition Disposition: Home, Self Care
[2021-04-30 23:16] VITALS: PULSE 72; RESP 16; O2SAT 98
== END 2021-04-30 23:16 | disposition home or self-care (01) ==
PROVIDERS: Emergency Provider Emergency Medicine; PCP Family Medicine
DX: Z45.2 Encounter for adjustment and management of vascular access device (principal); Z79.82 Long term (current) use of aspirin; Z79.51 Long term (current) use of inhaled steroids; Z79.899 Other long term (current) drug therapy
CPT/HCPCS: 99282

== ENCOUNTER → 2021-05-10 05:00 | Outpatient (REF) | payer MEDICARE, OTHER, SELFPAY ==
[2021-05-05 10:06] VITALS: BMI 28.3
[2021-05-10 08:43] LABS: Anion Gap 7 (5-15); BUN 52 mg/dL (7-18); Calcium,Total 8.8 mg/dL (8.5-10.1); Chloride 107 mmol/L (98-107); Creatinine, Serum 0.83 mg/dL (0.55-1.02); EST Glomerular Filtration Rate 74 mL/min (>60); Est Glom Filt Rate - Afr Amer 89 mL/min (>60); Glucose 196 mg/dL (74-106); Sodium Level 135 mmol/L (136-145)
[2021-05-10 08:46] LABS: Absolute Neutrophil Count 4.4 X10^3/uL (2.0-7.7); Basophil# 0.08 X10^3/uL; Basophil% 0.9 % (0-1); Eosinophil# 0.44 X10^3/uL; Eosinophils% 4.9 % (0-5); Hematocrit 34.3 % (37-47); Lymphocyte % 37.7 % (19-41); Mean Corp Hgb Conc 32.1 g/dL (32-36); Mean Corpuscular Hgb 29.5 pg (27.0-32.0); Mean Platelet Vol. 11.1 fl (6.2-12.0); Monocyte# 0.67 X10^3/uL; Monocyte% 7.4 % (0-10); NRBC Flagged by Analyzer 0 % (0-5); Neutrophil # 4.41 X10^3/uL (2.7-7.7); Neutrophil % 48.9 % (47-70); Platelet Count 289 K/mm3 (150-450); RBC Distribution Width CV 12.8 % (11.6-14.6); RBC Distribution Width SD 43.3 fl (35.1-43.9); Red Blood Count 3.73 M/mm3 (4.2-5.4)
[2021-05-10 08:48] LABS: Hemoglobin A1c 7.1 % (3.8-5.6)
[2021-05-30 00:32] VITALS: BMI 28.6
== END ==
PROVIDERS: PCP Family Medicine; Referring Provider Family Medicine; Visit Provider Family Medicine
DX: D64.9 Anemia, unspecified (principal); E11.9 Type 2 diabetes mellitus without complications
CPT/HCPCS: 36415; 80048; 83036; 85025

== ENCOUNTER 2021-05-18 21:28 | Emergency (ER) | payer MEDICARE, OTHER, SELFPAY ==
[2021-05-12 10:21] VITALS: BMI 28.3
[2021-05-18 21:29] VITALS: BP 206/120; PULSE 70; RESP 18; TEMP 36.2; O2SAT 99; BMI 28.6
[2021-05-18] MEDS: Smz/Tmp Ds Tablet 1 TABLET PO (22:19)
--- NOTE | 2021-05-18 22:46 | EDS_ITS ---
HPI History of Present Illness Chief Complaint: Wound Check Narrative Narrative: Patient sent from [facility] for wound check left heel. History of diabetes. Patient states had stocking sleeve removed noted blistering 3 hours ago. History of recent hemimetatarsal amputations by Dr. Finn. Patient reports initial event in December when she was in [place] had her second and third toes removed due to infections happening within 3 hours. She is is gangrenous at that time. She states she was then sent up to this hospital to be evaluated due to other facilities being full. She ended up with her fourth and fifth toe amputated in her great toe amputation last time was in January. She has been in rehab currently sent to [facility] for assisted living. She is nonweightbearing to the left lower extremity at this point. She states her heel pads were removed a week ago due to reported things were improving. She does get around by wheelchair. She states she does sleep on her left side. She states with stockings removed today noted a blistering and was concerned. Denies pain or f amirah. PFSH PFSH Home Medications acetaminophen 1,000 mg PO Q6H PRN #0 tab 03/25/21 [Rx Last Taken Unknown] acetaminophen 500 mg PO Q6H PRN PRN #0 tab 03/25/21 [Rx Last Taken Unknown] acidophilus-pectin, citrus 1 tab PO TID #0 tab 03/25/21 [Rx Last Taken Unknown] albuterol sulfate [Ventolin HFA] 1 puff INHALATION Q4H PRN PRN #0 g 03/25/21 [Rx Last Taken Unknown] [id number] [Alfredo (with collagen)] 1 packet PO BIDCM #0 ea 03/25/21 [Rx Last Taken Unknown] aspirin 81 mg PO DAILY@0800 #0 tab 03/25/21 [Rx Last Taken Unknown] fluticasone propion-salmeterol [Wixela Inhub] 1 puff INHALATION Q12 #0 ea 03/25/21 [Rx Last Taken Unknown] gabapentin 300 mg PO BID #0 cap 03/25/21 [Rx Last Taken Unknown] gabapentin 600 mg PO QHS #0 tab 03/25/21 [Rx Last Taken Unknown] guaifenesin [Mucus Relief ER] 1,200 mg PO BID #0 tab 03/25/21 [Rx Last Taken Unknown] qtfzyw-kjmhqygf-msprdrq [Creon] 1 capsule PO TIDCM #0 cap 03/25/21 [Rx Last Taken Unknown] loperamide 4 mg PO 4X/DAY #0 cap 03/25/21 [Rx Last Taken Unknown] menthol-zinc oxide [Calmoseptine] 1 applic TOPICAL BID #0 g 03/25/21 [Rx Last Taken Unknown] nystatin [Nyamyc] 1 applic TOPICAL TID #0 g 03/25/21 [Rx Last Taken Unknown] ondansetron 4 mg PO Q6H PRN PRN #0 tab 03/25/21 [Rx Last Taken Unknown] pantoprazole 40 mg PO BID #0 tab 03/25/21 [Rx Last Taken Unknown] polysaccharide iron complex [Ferrex 150] 150 mg PO DAILYCM #0 cap 03/25/21 [Rx Last Taken Unknown] doxycycline monohydrate 100 mg PO BID #20 cap 05/18/21 [Rx Last Taken Unknown] melatonin 3 mg PO QHS PRN 05/18/21 [History Last Taken Unknown] ondansetron 4 mg PO Q6H PRN #10 tab 05/18/21 [Rx Last Taken Unknown] tramadol 50 mg PO Q6H PRN 05/18/21 [History Last Taken Unknown] Allergy/AdvReac Type Severity Reaction Status Date / Time cefprozil Allergy Shortness Verified 05/18/21 21:29 of breath ceftriaxone Allergy Hives Verified 05/18/21 21:29 clindamycin Allergy Rash Verified 05/18/21 21:29 enalapril Allergy Other Verified 05/18/21 21:29 enoxaparin Allergy Rash Verified 05/18/21 21:29 heparin Allergy Rash Verified 05/18/21 21:29 levalbuterol Allergy Other Verified 05/18/21 21:29 morphine Allergy Shortness Verified 05/18/21 21:29 of breath Penicillins Allergy Anaphylaxis Verified 05/18/21 21:29 shellfish derived Allergy Anaphylaxis Verified 05/18/21 21:29 valsartan Allergy Other Verified 05/18/21 21:29 vancomycin Allergy Rash Verified 05/18/21 21:29 Surgical History History of appendectomy History of eye surgery History of foot surgery History of lumpectomy History of tubal ligation Social History Smoking Status: Never smoker ROS ROS ED Constitutional Constitutional ED: Denies chills, fever(s) or sweats Eyes Eyes: Denies change in vision ENT ENT ED: Denies dysphagia or sore throat Cardiovascular Cardiovascular: Denies chest pain, leg edema, palpitations or racing heartbeat Respiratory/Chest Respiratory/Chest: Denies cough, dyspnea or dyspnea on exertion Gastrointestinal Gastrointestinal: Denies abdominal pain, diarrhea, nausea or vomiting Genitourinary Genitourinary ED: Denies dysuria, hematuria or urinary frequency Musculoskeletal Musculoskeletal: Denies back pain, extremity pain or neck pain Integumentary Reports other Details: Blister left heel. ; Denies rash or wounds Neurologic Neurologic: Denies headache(s), paresthesias or weakness EXAM Physical Exam Const Vital Signs: 05/18/21 21:29 Temperature 97.1 F L Temperature Source Temporal Pulse Rate 70 Respiratory Rate 18 Blood Pressure 206/120 H Blood Pressure Mean 148 Pulse Ox 99 Oxygen Delivery Method Room Air Positive well nourished and well developed General Appearance ED: well developed and NAD HEENT Reports moist mucous membranes normocephalic and atraumatic Eyes PERRL, EOMs intact bilaterally and conjunctivae normal General Eye ED: Yes normal appearance of both eyes Neck no lymphadenopathy and supple General: Negative for tenderness Chest Wall Chest: Negative for tenderness Resp normal respiratory effort and normal air movement Effort and Inspection: symmetric chest movement; Negative for respiratory distress Cardio regular rate, regular rhythm and no murmurs Peripheral Pulses: pulses 2+ throughout GI normal to inspection, nondistended, normoactive bowel sounds and non-tender Palpation: Negative for guarding or rebound tenderness present Back/Spine no CVA tenderness and no thoracic nor lumbar tenderness Extremity normal to inspection General Extremety ED: Negative for edema or tenderness General Extremity: Negative for edema Neuro oriented x3 and no sensory deficits noted Sensorium / Orientation: awake and alert Skin no rashes or lesions noted Trauma: other Left foot: Distal foot amputation with dressing clean, dry, intact. Heel examination noted blistering medial aspect of the heel, mild surrounding erythema, skin intact. Nontender to palpation. No drainage. MDM MDM MDM Narrative Medical decision making narrative: Patient nontoxic, from her history with pads being removed and her sleeping on her left side. Likely pressure ulcer blister. However she has stents of history of rapid infection leading to amputation. She states she has a wound care appointment tomorrow to be seen. DuoDERM dressing was placed, heel pads were provided for the left foot. With her history discussed risk and benefits with antibiotics. She understands. Multiple allergies to antibiotics. She had a normal creatinine in the labs. She was started on Bactrim, however had an emesis in the ED after medication. Zofran provided. She has tolerated doxycycline in the past. Will write this prescription along with Zofran to take as prescribed. She will keep her wound care appointment tomorrow. All questions answered. Discharge Plan Triage Chief Complaint: Wound Check ED Provider: Haim Ricardo Dx/Rx/DC Orders Clinical Impression: Cellulitis of left foot, Blister (nonthermal), left foot, initial encounter Instructions: ED Blister (Adult), ED Cellulitis Prescriptions: New doxycycline monohydrate 100 mg capsule 100 mg PO BID Qty: 20 RF: 0 ondansetron 4 mg tablet,disintegrating 4 mg PO Q6H PRN (Reason: nausea and vomiting) Qty: 10 RF: 0 No Action fluticasone propion-salmeterol [Wixela Inhub] 250-50 mcg/dose Blister With Device 1 puff inhalation Q12 Qty: 0 RF: 0 gabapentin 600 mg Tablet 600 mg PO QHS Qty: 0 RF: 0 loperamide 2 mg Capsule 4 mg PO 4X/DAY Qty: 0 RF: 0 polysaccharide iron complex [Ferrex 150] 150 mg iron Capsule 150 mg PO DAILYCM Qty: 0 RF: 0 acetaminophen 500 mg Tablet 1,000 mg PO Q6H PRN (Reason: Fever) Qty: 0 RF: 0 acetaminophen 500 mg Tablet 500 mg PO Q6H PRN PRN (Reason: Pain Score 1-5) Qty: 0 RF: 0 pantoprazole 40 mg Tablet,Delayed Release (Dr/Ec) 40 mg PO BID Qty: 0 RF: 0 gabapentin 300 mg Capsule 300 mg PO BID Qty: 0 RF: 0 aspirin 81 mg Tablet,Chewable 81 mg PO DAILY@0800 Qty: 0 RF: 0 nystatin [Nyamyc] 100,000 unit/gram Powder 1 applic topical TID Qty: 0 RF: 0 albuterol sulfate [Ventolin HFA] 90 mcg/actuation Hfa Aerosol Inhaler 1 puff inhalation Q4H PRN PRN (Reason: SHORTNESS OF BREATH) Qty: 0 RF: 0 ondansetron 4 mg Tablet,Disintegrating 4 mg PO Q6H PRN PRN (Reason: NAUSEA) Qty: 0 RF: 0 acidophilus-pectin, citrus 25 million cell -100 mg Tablet 1 tab PO TID Qty: 0 RF: 0 Creon 6,000-19,000 -30,000 unit Capsule,Delayed Release(Dr/Ec) 1 capsule PO TIDCM Qty: 0 RF: 0 Calmoseptine 0.44-20.6 % Ointment 1 applic topical BID Qty: 0 RF: 0 guaifenesin [Mucus Relief ER] 600 mg Tablet Extended Release 12hr 1,200 mg PO BID Qty: 0 RF: 0 Alfredo (with collagen) 7-7-1.5 gram Powder In Packet 1 packet PO BIDCM Qty: 0 RF: 0 tramadol 50 mg Tablet 50 mg PO Q6H PRN (Reason: Pain) RF: 0 melatonin 3 mg Tablet 3 mg PO QHS PRN (Reason: Insomnia) RF: 0 Primary Care Provider: Cody Billings Referrals: Cody Billings MD [Primary Care Provider] - Activity Restrictions/Additional Instructions: Keep your wound care appointment tomorrow. Take medications as prescribed. Disposition Disposition: Assisted Living Discharge Location: [facility]
[2021-05-18] MEDS: Ondansetron ODT 4 MG Tablet 8 MG PO (22:48)
[2021-05-18 22:49] VITALS: BP 190/76
[2021-05-18 23:26] VITALS: BP 184/77
--- NOTE | 2021-05-18 23:26 | ED.RN ---
foam heel boot applied to LLE- extra sent with pt
== END 2021-05-18 23:27 | disposition home or self-care (01) ==
PROVIDERS: Emergency Provider Emergency Medicine; PCP Family Medicine
DX: L03.116 Cellulitis of left lower limb (principal); S90.822A Blister (nonthermal), left foot, initial encounter; Z79.899 Other long term (current) drug therapy; X58.XXXA Exposure to other specified factors, initial encounter
CPT/HCPCS: 99285

== ENCOUNTER 2021-05-26 12:00 | Outpatient (RCR) | payer MEDICARE, OTHER, SELFPAY ==
[2021-04-29 00:32] VITALS: BP 119/59; PULSE 68; RESP 18; TEMP 36.4
[2021-05-05 10:06] VITALS: BP 137/66; PULSE 62; RESP 18; TEMP 37.1; BMI 28.3
--- NOTE | 2021-05-05 12:24 | PN.PCM_ITS ---
History of Present Illness Date of Service: 05/05/21 Chief Complaint: Left foot ulcer History of Wound: This 66-year-old diabetic female with other comorbidities including recent DVT, anemia, neuropathy, and others was seen for a left foot ulcer. She has a complex history of infection with foot surgeries. Her last foot surgery was performed at [facility] on 02-25-21 which included a transmetatarsal amputation with rotational flap. She did have some subsequent flap compromise and this has continued to demarcate while she was residing in the transitional care unit. Now she is in a nursing home facility to complete her course of IV antibiotics for treatment of prior infection and for therapy purposes. She has been offloading as advised. She denies fever, chill, nausea, vomiting, redness, odor. She kept her epi cord and dressing clean and intact as advised. She has moved to assisted living this this past week Progress of Wound: improving Objective Data Objective Data Vital Signs: Vital Signs Temp Pulse Resp BP 98.7 F 62 18 137/66 H 05/05/21 10:06 05/05/21 10:06 05/05/21 10:06 05/05/21 10:06 Weight: 70.307 kg Body Mass Index (BMI) 28.3 Physical Exam Const alert and oriented x3 General Appearance: cooperative HEENT normocephalic Extremity Extremity Narrative: No calf tenderness Diminished pulses Muscle wasting noted Left transmetatarsal amputation No pain with ulcer manipulation General Extremity: edema and no tenderness to palpation of joints or extremities; Negative for cyanosis Skin Skin Narrative: no purulence, no streaking, no odor, no infection. Skin is atrophic and hairless. Plantar ulcer does probe into the deep amputation stump site cavity without any purulence eschar necrosis or direct probe to bone. The surrounding tissue is very mobile. The other remaining skin discontinuity sites are granular with minimal fibrous tissue. No deep probing or eschar noted. General Skin Exam: Negative for erythema Neuro Neuro Narrative: lack of normal epicritic sensation via light touch is consistent with neuropathy status Psych cooperative and affect normal Debridement Note Debridement Note Post-Debridement Measurements and Additional Note: Post-Debridement Measurements/Treatment LEO - Nurse 1 - General Ulcer Assessment Start: 05/05/21 10:06 Freq: Status: Active Protocol: [place] Activity Type Activity Date Activity User E-Sign Co-Sign Detail Recorded Client Recorded Date Recorded By Document 05/05/21 10:06 LIDIA [employer] 05/05/21 10:20 RB 05/05/21 10:06 WC - Today's Visit Information Type of service Follow-up Visit (Physician/[employer] ) Arrival Mode Ambulatory Transfer Assistance Manual Patient Identification Verified (Name & Yes ) Patient Requires Transmission-Based No Precautions Height and Weight Body Mass Index (BMI) 28.3 BMI Classification Overweight Vital Signs Temperature (97.8 F-99.1 F) 98.7 F Temperature Source Temporal Pulse Rate (60-100) 62 Pulse Location Monitor Respiratory Rate (12-18) 18 Respiratory rate source Ausculation Blood Pressure (90/60-120/80) 137/66 H Blood Pressure Mean (mm Hg) 89 Source Monitor Position Semi-Fowlers Blood Pressure Location Left Arm History Since Last Visit- (Skip if this is Patient's initial visit) Have you changed medications since your No last visit? Any new allergies or adverse reactions No Had a fall/change in ADL's that may No increase risk of falls Signs or symptoms of abuse and/or No neglect since last visit Have you been in the hospital since your No last visit? Has dressing in place as prescribed Yes Has compression in place as prescribed No Has offloadiing in place as prescribed No Experienced any changes in pain level or No management Pain Scale: 0-10 Numeric Is Patient Pain Free? Yes - Nurse 1 - General Ulcer Measurement Start: 05/05/21 10:06 Freq: Status: Active Protocol: Activity Type Activity Date Activity User E-Sign Co-Sign Detail Recorded Client Recorded Date Recorded By Document 05/05/21 10:06 LIDIA [employer] 05/05/21 10:20 LIDIA 05/05/21 10:06 Wound Center Nurse 1 2-left foot plantar -Combined with other wound No -Current Size (cm) - Length 0.4 -Current Size (cm) - Width 0.5 -Current Size (cm) - Depth 3 -Total Square Cm 0.20 -Tunneling No -Undermining/Tunneling No -Circular Undermining No -Exudate Amt Medium -Exudate Type Serosanguineous -Wound Margin Distinct, Outline Attached -Granulation Amt Medium (34-66%) -Granulation Quality Grubbs -Slough/Fibrin Yes -Necrosis Amt Medium (34-66%) -Necrotic Tissue Type Adherent Slough -Structure Exposed Fat Layer Exposed -Texture (Margy-wound Skin Appearance) Assessed -Moisture (Margy-wound Skin Appearance) Maceration -Color (Margy-wound Skin Appearance) Assessed -Temperature (Margy-wound Skin No Abnormality Appearance) (Pt Warm) -Tenderness on Palpation (Margy-wound No Skin Appearance) -Ulcer Cleansing Wound Cleanser -Foul Odor after Cleansing No -Anesthetic Used 4% Lidocaine Solution #1- L FOOT TRANSMET POST OP -Combined with other wound No -Current Size (cm) - Length 3 -Current Size (cm) - Width 0.4 -Current Size (cm) - Depth 0.2 -Total Square Cm 1.2 -Tunneling No -Undermining/Tunneling No -Circular Undermining No -Exudate Amt Small -Exudate Type Serosanguineous -Wound Margin Distinct, Outline Attached -Granulation Amt Medium (34-66%) -Granulation Quality Grubbs -Slough/Fibrin Yes -Necrosis Amt Large (67-100%) -Necrotic Tissue Type Adherent Slough -Structure Exposed N/A -Texture (Margy-wound Skin Appearance) Assessed, Scarring -Moisture (Margy-wound Skin Appearance) Assessed -Color (Margy-wound Skin Appearance) Assessed -Temperature (Margy-wound Skin No Abnormality Appearance) (Pt Warm) -Tenderness on Palpation (Margy-wound No Skin Appearance) -Ulcer Cleansing Wound Cleanser -Foul Odor after Cleansing No -Anesthetic Used 4% Lidocaine Solution Lower Limb Edema Present Yes Left Calf (cm) 34.5 Left Ankle (cm) 23.5 WC - Nurse 2 - General Ulcer CM Notes Start: 05/05/21 10:06 Freq: Status: Active Protocol: Activity Type Activity Date Activity User E-Sign Co-Sign Detail Recorded Client Recorded Date Recorded By Document 05/05/21 10:26 DIONI [id number] 05/05/21 10:37 DIONI 05/05/21 10:26 Wound Center Nurse 2 2-left foot plantar -Time 10:27 -Correct Patient Yes -Correct Side, Site, Position Yes -Correct Procedure Yes -Procedure Performed Yes -Type of Procedure Debridement -Clinical Debridement Subcutaneous -Tissue Removed Subcutaneous -Post Debridement (cm) - Length 0.8 -Post Debridement (cm) - Width 0.5 -Post Debridement (cm) - Depth 1.8 -Total Square (Post) (cm) 0.40 -Area of Debridement (cm) - Length 0.8 -Area of Debridement (cm) - Width 0.5 -Total Square (Area) (cm) 0.40 -Tunneling No -Undermining/Tunneling No -Circular Undermining No -Wound/Ulcer Outcome Not Healed -Ulcer Cleansing Rinsed/ Irrigated with Saline -Foul Odor after Cleansing No -Bioengineered Tissue No -Bleeding Controlled with Pressure -Offloading Yes -Type of Offloading Surgical Shoe -Treatment Response Procedure Tolerated Well -Debridement - Subq, 1st 20sq cm Yes #1- L FOOT TRANSMET POST OP -Time 10:28 -Correct Patient Yes -Correct Side, Site, Position Yes -Correct Procedure Yes -Procedure Performed Yes -Type of Procedure Debridement -Clinical Debridement Subcutaneous -Tissue Removed Subcutaneous -Post Debridement (cm) - Length 3.1 -Post Debridement (cm) - Width 0.5 -Post Debridement (cm) - Depth 0.3 -Total Square (Post) (cm) 1.55 -Area of Debridement (cm) - Length 3.1 -Area of Debridement (cm) - Width 0.5 -Total Square (Area) (cm) 1.55 -Tunneling No -Undermining/Tunneling No -Circular Undermining No -Wound/Ulcer Outcome Not Healed -Ulcer Cleansing Rinsed/ Irrigated with Saline -Foul Odor after Cleansing No -Bioengineered Tissue Yes -Type of Bioengineered Tissue Epicord -Expiration Date 01/28/26 -Product Lot Number [id number] -Percent Used 100 -Lot number of Saline Used [id number] -Bleeding Controlled with Pressure -Offloading Yes -Type of Offloading Surgical Shoe -Treatment Response Procedure Tolerated Well -Debridement - Subq, 1st 20sq cm No -Apply Skin Sub - 1st 25 sq cm - Feet 1 -Epicord (per sq cm) 6 Pain Scale: 0-10 Numeric Is Patient Pain Free? Yes WC - Nurse 3 - General Ulcer D/C NN Start: 05/05/21 10:06 Freq: Status: Active Protocol: Activity Type Activity Date Activity User E-Sign Co-Sign Detail Recorded Client Recorded Date Recorded By Document 05/05/21 10:43 LIDIA [id number] 05/05/21 10:45 LIDIA 05/05/21 10:43 Wound Care Nurse 3 2-left foot plantar -Primary Dressing Covered/Secured with Dry Gauze,Dry Gauze & Roll Gauze,Secured with Tape #1- L FOOT TRANSMET POST OP -Primary Dressing Covered/Secured with Dry Gauze,Dry Gauze & Roll Gauze,Secured with Tape Left -Other compression stocking single LAYER Treatment Response Procedure Tolerated Well Pain Scale: 0-10 Numeric Is Patient Pain Free? Yes WC - Visit Discharge Discharge Condition Stable Ambulatory Status Wheelchair Transportation Private Auto Medication Reconcilliation completed & No provided to patient/care provider Clinical Summary of Care Provided Yes Wound debrided: amputation site cluster Wound Grade/Stage: 1 Type of Debridement: Excisional debridement Anesthesia Used: 4% Lidocaine Solution Depth: in the subcutaneous layer Percentage of wound debrided: 60 Instrument Used: #15 blade Tissue Removed: fibrous, devitalized subcutaneous, biofilm, slough Severity: Fat Layer Exposed Amount of bleeding with debridement: Mild Bleeding Controlled with: Pressure Patient tolerated procedure: Patient tolerated procedure well Assessment/Plan Assessment/Plan (1) Non-pressure chronic ulcer of other part of left foot with fat layer exposed: CODE(S): L97.522 - Non-pressure chronic ulcer of other part of left foot with fat layer exposed (2) Localized edema: CODE(S): R60.0 - Localized edema (3) Delayed wound healing: CODE(S): T14.8XXD - Other injury of unspecified body region, subsequent encounter (4) Deep venous thrombosis of distal end of left lower extremity: CODE(S): I82.4Z2 - Acute embolism and thrombosis of unspecified deep veins of left distal lower extremity (5) Type 2 diabetes mellitus with diabetic polyneuropathy: CODE(S): E11.42 - Type 2 diabetes mellitus with diabetic polyneuropathy QUALIFIERS: Diabetes mellitus usp insulin use: unspecified usp insulin use status Qualified Code(s): E11.42 - Type 2 diabetes mellitus with diabetic polyneuropathy PLAN: Procedure- Location: plantar left foot grade 2 Excisional debridement performed Anesthesia: 5% lidocaine plain Debridement layer: subcutaneous Amount of debridement: 100% Instrumentation used: 15 blade Tissue debrided: fibrous, devitalized subcutaneous, biofilm, slough Exposed tissue: fat layer Bleeding: mild Hemostasis controlled: pressure The patient tolerated the procedure well At this site after soap and water cleanse and saline irrigation was performed delayed primary closure was performed with 2-0 Ethilon after additional alcohol adjacent skin preparation was performed. This was done with vertical and horizontal mattress technique with no tension and no touch technique utilized. I reviewed and discussed her case today. Debridement was performed today as n oted in the clinical panel to all of the ulcer sites. The following work up and care recommendations were made: Dressing: Epi cord was last visit today and this was sutured in place with a wound veil and Steri-Strips. A secondary dressing was also applied and she was advised to keep this clean, dry, intact. And an updated secondary dry dressing was applied and to leave this intact unless strikethrough is noted. Tissue growth optimization: Epi cord application was performed today. She has already completed traditional comprehensive wound care plan and surgical intervention. This is medically necessary for limb salvage. The indications, benefits, anticipated application and management were discussed in detail. Reapplication will be considered again next week. Offload: To remain nonweightbearing to left lower extremity. She uses assistive device. She also hangs her heel over stacked pillows while in bed and has an egg crate offloading boot for additional protection. Vascular: She had arterial Doppler performed on 02-05-21 in which there was no stenosis noted. She has triphasic waveforms. She was seen by vascular specialist, Dr. Hugo while in the transitional care unit and additional intervention is not recommended. Edema: To wear Tubigrip which was dispensed today. To elevate at rest. It is also noted she had a recent deep venous thrombosis to the left calf which she was treated with therapeutic anticoagulation medication. Infection: This has resolved locally and clinically. To monitor for return. Is also noted she was under the management of infectious disease during her hospitalization and also during her transition to nursing home facility with IV antibiotics. She has anticipated completion of her antibiotics by the end of the week. Culture results and details are in [employer] computer software. Pain: Controlled likely secondary to her neuropathy. Host factors: Her comorbidities impair her healing process. She has delays in healing. I recommend continue nutritional supplementation to optimize healing. I advised her that the hunger strike is not beneficial for her personal health and wound healing. Labs: Reviewed from white blood cell count 9. CMP reviewed on 04/15 without gross abnormalities. Albumin 2.5. And A1c 6.7% Imaging: Left foot x-ray performed on 02-19-21 with subsequent transmetatarsal amputation without soft tissue emphysema or foreign body or acute other injuries or Charcot event. Deep venous thrombosis management: She is no longer taking Eliquis secondary to nosebleed. She relates she had an updated scan which did not demonstrate continued clotting. She does not have clinical signs of acute blood clot. I answered all the patient's questions. To return to the wound healing center in 1 week or call sooner if the patient has any questions or concerns.
[2021-05-12 10:21] VITALS: BP 147/73; PULSE 71; RESP 18; TEMP 37.1; BMI 28.3
--- NOTE | 2021-05-12 13:26 | PN.PCM_ITS ---
History of Present Illness Date of Service: 05/12/21 Chief Complaint: Left foot ulcer History of Wound: This 66-year-old diabetic female with other comorbidities including recent DVT, anemia, neuropathy, and others was seen for a left foot ulcer. She has a complex history of infection with foot surgeries. Her last foot surgery was performed at [facility] on 02-25-21 which included a transmetatarsal amputation with rotational flap. She did have some subsequent flap compromise with delayed wound healing. Now she is in assisted living. She has been offloading as advised. She denies fever, chill, nausea, vomiting, redness, odor. She has intermittent diarrhea and is considering a fecal transplant. She kept her epi cord and dressing clean and intact as advised. She also had a delayed primary closure performed last week and denies known drainage. Progress of Wound: improving Objective Data Objective Data Vital Signs: Vital Signs Temp Pulse Resp BP 98.7 F 71 18 147/73 H 05/12/21 10:21 05/12/21 10:21 05/12/21 10:21 05/12/21 10:21 Weight: 70.307 kg Body Mass Index (BMI) 28.3 Physical Exam Const alert and oriented x3 General Appearance: cooperative HEENT normocephalic Extremity Extremity Narrative: No calf tenderness Diminished pulses Muscle wasting noted Left transmetatarsal amputation No pain with ulcer manipulation General Extremity: edema and no tenderness to palpation of joints or extremities; Negative for cyanosis Skin Skin Narrative: no purulence, no streaking, no odor, no infection. Skin is atrophic and hairless. Delayed primary closure site is intact with sutures without gapping maceration or drainage. The dorsal ulcer sites have epi cord incorporating and well with wound veil and Steri-Strips still in place. The adjacent skin does not have bogginess or fluctuance on palpation General Skin Exam: Negative for erythema Neuro Neuro Narrative: lack of normal epicritic sensation via light touch is consistent with neuropathy status Psych cooperative and affect normal Debridement Note Debridement Note Post-Debridement Measurements and Additional Note: Post-Debridement Measurements/Treatment LEO - Nurse 1 - General Ulcer Assessment Start: 05/05/21 10:06 Freq: Status: Active Protocol: [place] Activity Type Activity Date Activity User E-Sign Co-Sign Detail Recorded Client Recorded Date Recorded By Document 05/05/21 10:06 RB Desktop 05/05/21 10:20 RB Document 05/12/21 10:21 DL [id number] 05/12/21 10:26 DL 05/05/21 05/12/21 10:06 10:21 - Today's Visit Information Type of service Follow-up Visit Follow-up Visit (Physician/INSPECTOR OUTSIDE STEAM DISTRIBUTION (Physician/INSPECTOR OUTSIDE STEAM DISTRIBUTION ) ) Arrival Mode Ambulatory Wheelchair Transfer Assistance Manual Manual Transfer Assist (Other) x1 Patient Identification Verified (Name & Yes Yes ) Patient Requires Transmission-Based No No Precautions Height and Weight Body Mass Index (BMI) 28.3 28.3 BMI Classification Overweight Overweight Vital Signs Temperature (97.8 F-99.1 F) 98.7 F 98.7 F Temperature Source Temporal Temporal Pulse Rate (60-100) 62 71 Pulse Location Monitor Monitor Respiratory Rate (12-18) 18 18 Respiratory rate source Ausculation Observation Blood Pressure (90/60-120/80) 137/66 H 147/73 H Blood Pressure Mean (mm Hg) 89 97 Source Monitor Monitor Position Semi-Fowlers Blood Pressure Location Left Arm History Since Last Visit- (Skip if this is Patient's initial visit) Have you changed medications since your No No last visit? Any new allergies or adverse reactions No No Had a fall/change in ADL's that may No No increase risk of falls Signs or symptoms of abuse and/or No neglect since last visit Have you been in the hospital since your No No last visit? Has dressing in place as prescribed Yes Yes Has compression in place as prescribed No Yes Has offloadiing in place as prescribed No N/A Experienced any changes in pain level or No No management Pain Scale: 0-10 Numeric Is Patient Pain Free? Yes Yes - Nurse 1 - General Ulcer Measurement Start: 05/05/21 10:06 Freq: Status: Active Protocol: Activity Type Activity Date Activity User E-Sign Co-Sign Detail Recorded Client Recorded Date Recorded By Document 05/05/21 10:06 RB [email or web address] 05/05/21 10:20 RB Document 05/12/21 10:21 DL [id number] 05/12/21 10:26 DL 05/05/21 05/12/21 10:06 10:21 Wound Center Nurse 1 2-left foot plantar -Combined with other wound No -Current Size (cm) - Length 0.4 0.1 -Current Size (cm) - Width 0.5 0.1 -Current Size (cm) - Depth 3 0.1 -Total Square Cm 0.20 0.01 -Photo Taken No -Tunneling No -Undermining/Tunneling No -Circular Undermining No -Exudate Amt Medium None Present -Exudate Type Serosanguineous -Wound Margin Distinct, Outline Attached -Granulation Amt Medium (34-66%) -Granulation Quality [place] -Slough/Fibrin Yes -Necrosis Amt Medium (34-66%) -Necrotic Tissue Type Adherent Slough -Structure Exposed Fat Layer N/A Exposed -Texture (Margy-wound Skin Appearance) Assessed No Abnormality -Moisture (Margy-wound Skin Appearance) Maceration Dry/Scaly -Color (Margy-wound Skin Appearance) Assessed No Abnormality -Temperature (Margy-wound Skin No Abnormality No Abnormality Appearance) (Pt Warm) (Pt Warm) -Tenderness on Palpation (Margy-wound No No Skin Appearance) -Ulcer Cleansing Wound Cleanser EpiCord Recheck -Foul Odor after Cleansing No No -Anesthetic Used 4% Lidocaine Solution #1- L FOOT TRANSMET POST OP -Combined with other wound No -Current Size (cm) - Length 3 0.1 -Current Size (cm) - Width 0.4 0.1 -Current Size (cm) - Depth 0.2 0.1 -Total Square Cm 1.2 0.01 -Photo Taken No -Tunneling No -Undermining/Tunneling No -Circular Undermining No -Exudate Amt Small None Present -Exudate Type Serosanguineous -Wound Margin Distinct, Outline Attached -Granulation Amt Medium (34-66%) -Granulation Quality [place] -Slough/Fibrin Yes -Necrosis Amt Large (67-100%) -Necrotic Tissue Type Adherent Slough -Structure Exposed N/A N/A -Texture (Margy-wound Skin Appearance) Assessed, No Abnormality Scarring -Moisture (Margy-wound Skin Appearance) Assessed Dry/Scaly -Color (Margy-wound Skin Appearance) Assessed No Abnormality -Temperature (Margy-wound Skin No Abnormality No Abnormality Appearance) (Pt Warm) (Pt Warm) -Tenderness on Palpation (Margy-wound No No Skin Appearance) -Ulcer Cleansing Wound Cleanser EpiCord Recheck -Foul Odor after Cleansing No No -Anesthetic Used 4% Lidocaine Solution Lower Limb Edema Present Yes Left Calf (cm) 34.5 32 Left Ankle (cm) 23.5 22.5 WC - Nurse 2 - General Ulcer CM Notes Start: 05/05/21 10:06 Freq: Status: Active Protocol: Activity Type Activity Date Activity User E-Sign Co-Sign Detail Recorded Client Recorded Date Recorded By Document 05/05/21 10:26 DIONI [id number] 05/05/21 10:37 DIONI 05/05/21 10:26 Wound Center Nurse 2 2-left foot plantar -Time 10:27 -Correct Patient Yes -Correct Side, Site, Position Yes -Correct Procedure Yes -Procedure Performed Yes -Type of Procedure Debridement -Clinical Debridement Subcutaneous -Tissue Removed Subcutaneous -Post Debridement (cm) - Length 0.8 -Post Debridement (cm) - Width 0.5 -Post Debridement (cm) - Depth 1.8 -Total Square (Post) (cm) 0.40 -Area of Debridement (cm) - Length 0.8 -Area of Debridement (cm) - Width 0.5 -Total Square (Area) (cm) 0.40 -Tunneling No -Undermining/Tunneling No -Circular Undermining No -Wound/Ulcer Outcome Not Healed -Ulcer Cleansing Rinsed/ Irrigated with Saline -Foul Odor after Cleansing No -Bioengineered Tissue No -Bleeding Controlled with Pressure -Offloading Yes -Type of Offloading Surgical Shoe -Treatment Response Procedure Tolerated Well -Debridement - Subq, 1st 20sq cm Yes #1- L FOOT TRANSMET POST OP -Time 10:28 -Correct Patient Yes -Correct Side, Site, Position Yes -Correct Procedure Yes -Procedure Performed Yes -Type of Procedure Debridement -Clinical Debridement Subcutaneous -Tissue Removed Subcutaneous -Post Debridement (cm) - Length 3.1 -Post Debridement (cm) - Width 0.5 -Post Debridement (cm) - Depth 0.3 -Total Square (Post) (cm) 1.55 -Area of Debridement (cm) - Length 3.1 -Area of Debridement (cm) - Width 0.5 -Total Square (Area) (cm) 1.55 -Tunneling No -Undermining/Tunneling No -Circular Undermining No -Wound/Ulcer Outcome Not Healed -Ulcer Cleansing Rinsed/ Irrigated with Saline -Foul Odor after Cleansing No -Bioengineered Tissue Yes -Type of Bioengineered Tissue Epicord -Expiration Date 01/28/26 -Product Lot Number [id number] -Percent Used 100 -Lot number of Saline Used [id number] -Bleeding Controlled with Pressure -Offloading Yes -Type of Offloading Surgical Shoe -Treatment Response Procedure Tolerated Well -Debridement - Subq, 1st 20sq cm No -Apply Skin Sub - 1st 25 sq cm - Feet 1 -Epicord (per sq cm) 6 Pain Scale: 0-10 Numeric Is Patient Pain Free? Yes WC - Nurse 3 - General Ulcer D/C NN Start: 05/05/21 10:06 Freq: Status: Active Protocol: Activity Type Activity Date Activity User E-Sign Co-Sign Detail Recorded Client Recorded Date Recorded By Document 05/05/21 10:43 RB [id number] 05/05/21 10:45 RB 05/05/21 10:43 Wound Care Nurse 3 2-left foot plantar -Primary Dressing Covered/Secured with Dry Gauze,Dry Gauze & Roll Gauze,Secured with Tape #1- L FOOT TRANSMET POST OP -Primary Dressing Covered/Secured with Dry Gauze,Dry Gauze & Roll Gauze,Secured with Tape Left -Other compression stocking single LAYER Treatment Response Procedure Tolerated Well Pain Scale: 0-10 Numeric Is Patient Pain Free? Yes WC - Visit Discharge Discharge Condition Stable Ambulatory Status Wheelchair Transportation Private Auto Medication Reconcilliation completed & No provided to patient/care provider Clinical Summary of Care Provided Yes Assessment/Plan Assessment/Plan (1) Non-pressure chronic ulcer of other part of left foot with fat layer exposed: CODE(S): L97.522 - Non-pressure chronic ulcer of other part of left foot with fat layer exposed (2) Localized edema: CODE(S): R60.0 - Localized edema (3) Delayed wound healing: CODE(S): T14.8XXD - Other injury of unspecified body region, subsequent encounter (4) Deep venous thrombosis of distal end of left lower extremity: CODE(S): I82.4Z2 - Acute embolism and thrombosis of unspecified deep veins of left distal lower extremity (5) Type 2 diabetes mellitus with diabetic polyneuropathy: CODE(S): E11.42 - Type 2 diabetes mellitus with diabetic polyneuropathy QUALIFIERS: Diabetes mellitus terminal press operator insulin use: unspecified custodial insulin use status Qualified Code(s): E11.42 - Type 2 diabetes wilbur armijo with diabetic polyneuropathy PLAN: I reviewed and discussed her case today. The epi cord was left intact as was a delayed primary closure site. Additional debridement and application of another advanced wound healing product will be considered next week. A secondary dressing was applied and she was advised to keep this clean dry and intact until follow-up next week. The following work up and care recommendations were made: Offload: To remain nonweightbearing to left lower extremity. She uses assistive device. She also hangs her heel over stacked pillows while in bed and has an egg crate offloading boot for additional protection. Vascular: She had arterial Doppler performed on 02-05-21 in which there was no stenosis noted. She has triphasic waveforms. She was seen by vascular specialist, Dr. Hugo while in the transitional care unit and additional intervention is not recommended. Edema: To wear Tubigrip which was dispensed today. To elevate at rest. It is also noted she had a recent deep venous thrombosis to the left calf which she was treated with therapeutic anticoagulation medication. Infection: This has resolved locally and clinically. To monitor for return. Is also noted she was under the management of infectious disease during her hospitalization and also during her transition to senior living facility with IV antibiotics. She has anticipated completion of her antibiotics by the end of the week. Culture results and details are in [employer] computer software. Pain: Controlled likely secondary to her neuropathy. Host factors: Her comorbidities impair her healing process. She has delays in healing. I recommend continue nutritional supplementation to optimize healing. I advised her that the hunger strike is not beneficial for her personal health and wound healing. Labs: Reviewed from white blood cell count 9. CMP reviewed on 04/15 without gross abnormalities. Albumin 2.5. And A1c 6.7% Imaging: Left foot x-ray performed on 02-19-21 with subsequent transmetatarsal amputation without soft tissue emphysema or foreign body or acute other injuries or Charcot event. Deep venous thrombosis management: She is no longer taking Eliquis secondary to nosebleed. She relates she had an updated scan which did not demonstrate continued clotting. She does not have clinical signs of acute blood clot. I answered all the patient's questions. To return to the wound healing center in 1 week or call sooner if the patient has any questions or concerns. The medical decision making level is low. There is noted low risk of morbidity after considering this treatment plan and diagnostic data. The problems addressed require a low medical decision making level which includes two or more minor problems, a stable chronic illness, or an acute uncomplicated illness or injury.
[2021-05-19 10:20] VITALS: BP 141/67; PULSE 68; RESP 16; TEMP 36.4; BMI 28.3
--- NOTE | 2021-05-19 11:51 | PCM.WC.PN ---
History of Present Illness Date of Service: 05/19/21 Chief Complaint: Left foot ulcer New left foot blister History of Wound: This 66-year-old diabetic female with other comorbidities including recent DVT, anemia, neuropathy, and others was seen for a left foot ulcer. She has a complex history of infection with foot surgeries. Her last foot surgery was performed at [facility] on 02-25-21 which included a transmetatarsal amputation with rotational flap. She did have some subsequent flap compromise with delayed wound healing. Now she is in assisted living. She has been offloading as advised. She denies fever, chill, nausea, vomiting, redness, odor. She has intermittent diarrhea and is considering a fecal transplant. She did not follow-up with Dr. May's office yet because she had difficulty with her phone. She kept her epi cord and dressing clean and intact as advised. She also had a delayed primary closure performed two weeks ago and denies known drainage. She had blister to left heel and decided to go to the emergency room last night. They try to give her Bactrim and she had explosive diarrhea. She is not on any other antibiotic at this time. She denies redness, odor, or streaking. She denies injury and is not sure how the blister started. She is with her today. She is interested in proceeding with physical and occupational while she is residing in assisted living in [place]. She relates she is having difficulty walking and is getting deconditioned. Progress of Wound: improving New blister noted heel Objective Data Objective Data Vital Signs: Vital Signs Temp Pulse Resp BP 97.6 F L 68 16 141/67 H 05/19/21 10:20 05/19/21 10:20 05/19/21 10:20 05/19/21 10:20 Oxygen Delivery Method Room Air Weight: 70.307 kg Body Mass Index (BMI) 28.3 Physical Exam Const alert and oriented x3 General Appearance: cooperative HEENT normocephalic Extremity Extremity Narrative: No calf tenderness Diminished pulses Muscle wasting noted Left transmetatarsal amputation No pain with ulcer manipulation General Extremity: edema and no tenderness to palpation of joints or extremities; Negative for cyanosis Skin Skin Narrative: no purulence, no streaking, no odor, no infection. Skin is atrophic and hairless. Delayed primary closure site is intact with sutures without gapping maceration or drainage. Reduced ulcer size noted to the dorsal lateral foot with fibrous and granular base. No deep tissue exposure or necrosis. The adjacent skin does not have bogginess or fluctuance on palpation. There is a new elongated bulla noted to the plantar medial. There is no signs of infection site. This was drained and skin was left intact as a biological barrier. General Skin Exam: Negative for erythema Neuro Neuro Narrative: lack of normal epicritic sensation via light touch is consistent with neuropathy status Psych cooperative and affect normal Debridement Note Debridement Note Post-Debridement Measurements and Additional Note: Post-Debridement Measurements/Treatment - Nurse 1 - General Ulcer Assessment Start: 05/05/21 10:06 Freq: Status: Active Protocol: LEO.[email or web address] Activity Type Activity Date Activity User E-Sign Co-Sign Detail Recorded Client Recorded Date Recorded By Document 05/05/21 10:06 RB Desktop 05/05/21 10:20 RB Document 05/12/21 10:21 DL [id number] 05/12/21 10:26 DL Document 05/19/21 10:20 DL [id number] 05/19/21 10:31 DL 05/05/21 05/12/21 05/19/21 10:06 10:21 10:20 - Today's Visit Information Type of service Follow-up Visit Follow-up Visit Follow-up Visit (Physician/[facility] (Physician/[facility] (Physician/[facility] ) ) ) Arrival Mode Ambulatory Wheelchair Wheelchair Transfer Assistance Manual Manual Manual Transfer Assist (Other) x1 x1 Patient Identification Verified (Name & Yes Yes Yes ) Patient Requires Transmission-Based No No No Precautions Height and Weight Body Mass Index (BMI) 28.3 28.3 28.3 BMI Classification Overweight Overweight Overweight Vital Signs Temperature (97.8 F-99.1 F) 98.7 F 98.7 F 97.6 F L Temperature Source Temporal Temporal Temporal Pulse Rate (60-100) 62 71 68 Pulse Location Monitor Monitor Monitor Respiratory Rate (12-18) 18 18 16 Respiratory rate source Ausculation Observation Observation Oxygen Delivery Method Room Air Blood Pressure (90/60-120/80) 137/66 H 147/73 H 141/67 H Blood Pressure Mean (mm Hg) 89 97 91 Source Monitor Monitor Monitor Position Semi-Fowlers Sitting Blood Pressure Location Left Arm Left Arm History Since Last Visit- (Skip if this is Patient's initial visit) Have you changed medications since your No No No last visit? Any new allergies or adverse reactions No No No Had a fall/change in ADL's that may No No No increase risk of falls Signs or symptoms of abuse and/or No No neglect since last visit Have you been in the hospital since your No No No last visit? Has dressing in place as prescribed Yes Yes Yes Has compression in place as prescribed No Yes Yes Has offloadiing in place as prescribed No N/A Yes Experienced any changes in pain level or No No No management Left Footwear Other Footwear (Comment) Right Footwear Regular Shoe Other Footwear foam heel protector to r foot Pain Scale: 0-10 Numeric Is Patient Pain Free? Yes Yes Yes WC - Nurse 1 - General Ulcer Measurement Start: 05/05/21 10:06 Freq: Status: Active Protocol: Activity Type Activity Date Activity User E-Sign Co-Sign Detail Recorded Client Recorded Date Recorded By Document 05/05/21 10:06 RB Desktop 05/05/21 10:20 RB Document 05/12/21 10:21 DL [id number] 05/12/21 10:26 DL Document 05/19/21 10:20 DL [id number] 05/19/21 10:31 DL 05/05/21 05/12/21 05/19/21 10:06 10:21 10:20 Wound Center Nurse 1 2-left foot plantar -Combined with other wound No No -Current Size (cm) - Length 0.4 0.1 0.1 -Current Size (cm) - Width 0.5 0.1 0.1 -Current Size (cm) - Depth 3 0.1 0.1 -Total Square Cm 0.20 0.01 0.01 -Photo Taken No -Tunneling No -Undermining/Tunneling No -Circular Undermining No -Exudate Amt Medium None Present None Present -Exudate Type Serosanguineous -Wound Margin Distinct, Outline Attached -Granulation Amt Medium (34-66%) -Granulation Quality Jacobus -Slough/Fibrin Yes -Necrosis Amt Medium (34-66%) -Necrotic Tissue Type Adherent Slough -Structure Exposed Fat Layer N/A Exposed -Texture (Margy-wound Skin Appearance) Assessed No Abnormality Assessed -Moisture (Margy-wound Skin Appearance) Maceration Dry/Scaly Assessed -Color (Margy-wound Skin Appearance) Assessed No Abnormality Assessed -Temperature (Margy-wound Skin No Abnormality No Abnormality Appearance) (Pt Warm) (Pt Warm) -Tenderness on Palpation (Margy-wound No No Skin Appearance) -Ulcer Cleansing Wound Cleanser EpiCord Recheck soapy water -Foul Odor after Cleansing No No No -Anesthetic Used 4% Lidocaine Solution #1- L FOOT TRANSMET POST OP -Combined with other wound No No -Current Size (cm) - Length 3 0.1 2.8 -Current Size (cm) - Width 0.4 0.1 0.5 -Current Size (cm) - Depth 0.2 0.1 0.1 -Total Square Cm 1.2 0.01 1.40 -Photo Taken No No -Epithelialization None Present -Tunneling No No -Undermining/Tunneling No No -Circular Undermining No No -Exudate Amt Small None Present None Present -Exudate Type Serosanguineous -Wound Margin Distinct, Outline Attached -Granulation Amt Medium (34-66%) None Present (0 %) -Granulation Quality Jacobus -Slough/Fibrin Yes Yes -Necrosis Amt Large (67-100%) Large (67-100%) -Necrotic Tissue Type Adherent Slough Eschar -Structure Exposed N/A N/A -Texture (Margy-wound Skin Appearance) Assessed, No Abnormality Assessed, Scarring Scarring -Moisture (Margy-wound Skin Appearance) Assessed Dry/Scaly Assessed -Color (Margy-wound Skin Appearance) Assessed No Abnormality Assessed -Temperature (Margy-wound Skin No Abnormality No Abnormality No Abnormality Appearance) (Pt Warm) (Pt Warm) (Pt Warm) -Tenderness on Palpation (Margy-wound No No No Skin Appearance) -Ulcer Cleansing Wound Cleanser EpiCord Recheck soapy water -Foul Odor after Cleansing No No No -Anesthetic Used 4% Lidocaine 5% Lidocaine Solution Gel Lower Limb Edema Present Yes Left Calf (cm) 34.5 32 Left Ankle (cm) 23.5 22.5 WC - Nurse 2 - General Ulcer CM Notes Start: 05/05/21 10:06 Freq: Status: Active Protocol: Activity Type Activity Date Activity User E-Sign Co-Sign Detail Recorded Client Recorded Date Recorded By Document 05/05/21 10:26 DIONI [id number] 05/05/21 10:37 DIONI Document 05/19/21 10:41 DIONI [id number] 05/19/21 10:49 JF 05/05/21 05/19/21 10:26 10:41 Wound Center Nurse 2 2-left foot plantar -Time 10:27 10:41 -Correct Patient Yes No -Correct Side, Site, Position Yes No -Correct Procedure Yes No -Procedure Performed Yes No -Type of Procedure Debridement -Clinical Debridement Subcutaneous -Tissue Removed Subcutaneous -Post Debridement (cm) - Length 0.8 -Post Debridement (cm) - Width 0.5 -Post Debridement (cm) - Depth 1.8 -Total Square (Post) (cm) 0.40 -Area of Debridement (cm) - Length 0.8 -Area of Debridement (cm) - Width 0.5 -Total Square (Area) (cm) 0.40 -Tunneling No -Undermining/Tunneling No -Circular Undermining No -Wound/Ulcer Outcome Not Healed -Ulcer Cleansing Rinsed/ Irrigated with Saline -Foul Odor after Cleansing No -Bioengineered Tissue No -Bleeding Controlled with Pressure -Offloading Yes -Type of Offloading Surgical Shoe -Treatment Response Procedure Tolerated Well -Debridement - Subq, 1st 20sq cm Yes #1- L FOOT TRANSMET POST OP -Time 10:28 10:42 -Correct Patient Yes Yes -Correct Side, Site, Position Yes Yes -Correct Procedure Yes Yes -Procedure Performed Yes Yes -Type of Procedure Debridement Debridement -Clinical Debridement Subcutaneous Subcutaneous -Tissue Removed Subcutaneous Subcutaneous -Post Debridement (cm) - Length 3.1 1.7 -Post Debridement (cm) - Width 0.5 1.5 -Post Debridement (cm) - Depth 0.3 0.2 -Total Square (Post) (cm) 1.55 2.55 -Area of Debridement (cm) - Length 3.1 1.7 -Area of Debridement (cm) - Width 0.5 1.5 -Total Square (Area) (cm) 1.55 2.55 -Tunneling No -Undermining/Tunneling No No -Circular Undermining No No -Wound/Ulcer Outcome Not Healed Not Healed -Ulcer Cleansing Rinsed/ Rinsed/ Irrigated with Irrigated with Saline Saline -Foul Odor after Cleansing No No -Bioengineered Tissue Yes Yes -Type of Bioengineered Tissue Epicord Epicord -Expiration Date 01/28/26 -Product Lot Number [id number] -Percent Used 100 -Lot number of Saline Used [id number] -Bleeding Controlled with Pressure Pressure -Offloading Yes Yes -Type of Offloading Surgical Shoe Knee Walker -Treatment Response Procedure Procedure Tolerated Well Tolerated Well -Debridement - Subq, 1st 20sq cm No No -Apply Skin Sub - 1st 25 sq cm - Feet 1 -Epicord (per sq cm) 6 6 Pain Scale: 0-10 Numeric Is Patient Pain Free? Yes Yes - Nurse 3 - General Ulcer D/C NN Start: 05/05/21 10:06 Freq: Status: Active Protocol: Activity Type Activity Date Activity User E-Sign Co-Sign Detail Recorded Client Recorded Date Recorded By Document 05/05/21 10:43 [id number] 05/05/21 10:45 RB Document 05/19/21 11:04 [facility] [id number] 05/19/21 11:05 [facility] 05/05/21 05/19/21 10:43 11:04 Wound Care Nurse 3 2-left foot plantar -Primary Dressing Covered/Secured with Dry Gauze,Dry Dry Gauze & Gauze & Roll Roll Gauze, Gauze,Secured Secured with with Tape Tape #1- L FOOT TRANSMET POST OP -Other Dressing epicord -Primary Dressing Covered/Secured with Dry Gauze,Dry Dry Gauze & Gauze & Roll Roll Gauze, Gauze,Secured Secured with with Tape Tape Left -Tubular Bandage Single Layer -Size of Tubigrip Used Size D -Size D ($) 1 -Other compression stocking single LAYER Treatment Response Procedure Tolerated Well Pain Scale: 0-10 Numeric Is Patient Pain Free? Yes Yes - Visit Discharge Discharge Condition Stable Stable Ambulatory Status Wheelchair Wheelchair Transportation Private Auto Medication Reconcilliation completed & No provided to patient/care provider Clinical Summary of Care Provided Yes Other assisted living Wound debrided: dorsal lateral left foot Wound Grade/Stage: 1 Type of Debridement: Excisional debridement Anesthesia Used: 4% Lidocaine Solution Depth: in the subcutaneous layer Percentage of wound debrided: 100 Instrument Used: #15 blade Tissue Removed: fibrous, devitalized subcutaneous, biofilm, slough Severity: Fat Layer Exposed Amount of bleeding with debridement: Mild Bleeding Controlled with: Pressure Patient tolerated procedure: Patient tolerated procedure well Assessment/Plan Assessment/Plan (1) Non-pressure chronic ulcer of other part of left foot with fat layer exposed: CODE(S): L97.522 - Non-pressure chronic ulcer of other part of left foot with fat layer exposed (2) Localized edema: CODE(S): R60.0 - Localized edema (3) Delayed wound healing: CODE(S): T14.8XXD - Other injury of unspecified body region, subsequent encounter (4) Deep venous thrombosis of distal end of left lower extremity: CODE(S): I82.4Z2 - Acute embolism and thrombosis of unspecified deep veins of left distal lower extremity (5) Type 2 diabetes mellitus with diabetic polyneuropathy: CODE(S): E11.42 - Type 2 diabetes mellitus with diabetic polyneuropathy QUALIFIERS: Diabetes mellitus equipment operator intermodal yard insulin use: unspecified fpc insulin use status Qualified Code(s): E11.42 - Type 2 diabetes mellitus with diabetic polyneuropathy (6) Blister (nonthermal), right foot, initial encounter: CODE(S): S90.821A - Blister (nonthermal), right foot, initial encounter (7) Difficulty in walking, not elsewhere classified: CODE(S): R26.2 - Difficulty in walking, not elsewhere classified PLAN: I reviewed and discussed her case today. I reviewed her emergency room documentation; she was seen by Dr. Ricardo. Prescription for ondansetron and doxycycline was provided and she has not taken these. The following work up and care recommendations were made: Dressing: To leave gauze dressing to the left dorsal lateral foot check the underlying epi cord, wound veil, and Steri-Strips that was applied today. To apply dry gauze to the drained blister site in which the skin was left intact to the biological barrier. Advanced wound healing: Verbal consent was obtained to apply epi cord. This was applied according standard protocol and was moistened with saline. This was further secured in place with a wound veil and Steri-Strips. She was advised to keep this clean, dry, and intact until follow-up. The benefits and anticipated healing and management were reviewed. 100% of the product was utilized Wound wash: Soap and water Offload: To remain nonweightbearing to left lower extremity. She uses assistive device. She also hangs her heel over stacked pillows while in bed and has an egg crate offloading boot for additional protection. Vascular: She had arterial Doppler performed on 02-05-21 in which there was no stenosis noted. She has triphasic waveforms. She was seen by vascular specialist, Dr. Hugo while in the transitional care unit and additional intervention is not recommended. Edema: To wear Tubigrip which was dispensed today. To elevate at rest. It is also noted she had a recent deep venous thrombosis to the left calf which she was treated with therapeutic anticoagulation medication. Infection: She had prior course of infection treated surgically medically. She also was reassured no local signs of infection are noted today. I did drain her new blister after alcohol preparation and verbal consent was obtained. It is noted she did not tolerate Bactrim and the ER physician did give her a discharge antibiotic of doxycycline with ondansetron in which she has decided not to take. It is okay to proceed without antibiotics at this time because there are no local infections appreciated at this time but she needs to monitor this closely. Pain: Controlled likely secondary to her neuropathy. Host factors: Her comorbidities impair her healing process. She has delays in healing. I recommend continue nutritional supplementation to optimize healing. I advised her that the hunger strike is not beneficial for her personal health and wound healing. Labs: Reviewed from 05-10-21 without leukocytosis or other gross abnormalities. Prior A1c 6.7% Imaging: Left foot x-ray performed on 02-19-21 with subsequent transmetatarsal amputation without soft tissue emphysema or foreign body or acute other injuries or Charcot event. Deep venous thrombosis management: She is no longer taking Eliquis secondary to nosebleed. She relates she had an updated scan which did not demonstrate continued clotting. She does not have clinical signs of acute blood clot. Therapy: I recommend retirement home health for wound care as described and also for physical and occupational therapy to prevent deconditioning and to perform gait training to maintain a complete nonweightbearing status to left lower extremity. I answered all the patient's questions. To return to the wound healing center in [address] Finn and 1 week for nursing visit. To call sooner if the patient has any questions or concerns. Suture removal be considered physician follow-up. The medical decision making level is low. There is noted low risk of morbidity after considering this treatment plan and diagnostic data. The problems addressed require a low medical decision making level which includes two or more minor problems, a stable chronic illness, or an acute uncomplicated illness or injury.
[2021-05-26 11:46] VITALS: BP 138/71; PULSE 67; RESP 18; TEMP 36.3; BMI 28.3
--- NOTE | 2021-05-26 11:50 | WC ---
pt steristrips and veil intact. redressed with dry anita
== END 2021-05-29 23:59 ==
LOC: WC 12:00
PROVIDERS: PCP Family Medicine; Visit Provider Podiatrist
DX: E11.621 Type 2 diabetes mellitus with foot ulcer (principal); Z86.718 Personal history of other venous thrombosis and embolism; L97.522 Non-pressure chronic ulcer of other part of left foot with fat layer exposed; R60.0 Localized edema; E11.42 Type 2 diabetes mellitus with diabetic polyneuropathy; E11.622 Type 2 diabetes mellitus with other skin ulcer; T87.89 Other complications of amputation stump
CPT/HCPCS: 11042; 15275; 99212; 99213; Q4187; G0463

== ENCOUNTER 2021-06-23 10:00 | Outpatient (RCR) | payer MEDICARE, OTHER, SELFPAY ==
[2021-05-30 00:32] VITALS: BP 138/71; PULSE 67; RESP 18; TEMP 36.3; BMI 28.6
[2021-06-02 10:16] VITALS: BP 150/73; PULSE 65; TEMP 36.1; BMI 28.6
--- NOTE | 2021-06-02 11:00 | PN.PCM_ITS ---
History of Present Illness Date of Service: 06/02/21 Chief Complaint: Left foot ulcer New left foot blister History of Wound: This 66-year-old diabetic female with other comorbidities including recent DVT, anemia, neuropathy, and others was seen for a left foot ulcer. She has a complex history of infection with foot surgeries. Her last foot surgery was performed at [facility] on 02-25-21 which included a transmetatarsal amputation with rotational flap. She did have some subsequent flap compromise with delayed wound healing. Now she is in assisted living. She has been offloading as advised. She denies fever, chill, nausea, vomiting, redness, odor. She has intermittent diarrhea and is considering a fecal transplant. She did not follow-up with Dr. May's office yet because she had difficulty with her phone. She kept her epi cord and dressing clean and intact as advised. She also had a delayed primary closure performed two weeks ago and denies known drainage. She had blister to left heel and decided to go to the emergency room last night. They try to give her Bactrim and she had explosive diarrhea. She is not on any other antibiotic at this time. She denies redness, odor, or streaking. She denies injury and is not sure how the blister started. She is with her today. She is interested in proceeding with physical and occupational while she is residing in assisted living in [place]. She relates she is having difficulty walking and is getting deconditioned. Subjective Subjective Patient seen and examined resting comfortably. Patient denies any new pedal complaints. Patient denies any fever, chills, chest pain, shortness of breath, cough, streaking, purulence, vomiting. Patient complains of some nausea and diarrhea. She is moving from assisted living into an apartment and is unable to perform certain tasks without specialist durable medical equipment. She requests an order for a lift chair, electric hospital bed, and electric power wheelchair. She is unable to manually utilize a regular wheelchair or hospital bed. She plans to continue to work with home health for therapy and for wound care if needed. She denies redness or odor from the foot wound. She is been compliant with dressing care. She is scheduled to proceed forward with a fecal transplant as well. Objective Data Objective Data Vital Signs: Vital Signs Temp Pulse Resp BP 96.9 F L 65 18 150/73 H 06/02/21 10:16 06/02/21 10:16 05/30/21 00:32 06/02/21 10:16 Weight: 70.307 kg Body Mass Index (BMI) 28.6 Physical Exam Const alert and oriented x3 General Appearance: cooperative HEENT normocephalic Extremity Extremity Narrative: No calf tenderness Diminished pulses Muscle wasting noted Left transmetatarsal amputation No pain with ulcer manipulation General Extremity: edema and no tenderness to palpation of joints or extremities; Negative for cyanosis Skin Skin Narrative: no purulence, no streaking, no odor, no infection. Skin is atrophic and hairless. Delayed primary closure site is intact with sutures without gapping maceration or drainage. Upon removal there is full epithel ialization to the plantar aspect. Reduced ulcer size noted to the dorsal lateral foot with fibrous and granular base. No deep tissue exposure or necrosis. The adjacent skin does not have bogginess or fluctuance on palpation. There is a new elongated bulla noted to the plantar medial. There is no signs of infection site. This was drained and skin was left intact as a biological barrier. Difficulty walking without assistive device, debility, and weakness noted. Assistance required for mobilization. General Skin Exam: Negative for erythema Neuro Neuro Narrative: lack of normal epicritic sensation via light touch is consistent with neuropathy status Psych cooperative and affect normal Debridement Note Debridement Note Post-Debridement Measurements and Additional Note: Post-Debridement Measurements/Treatment - Nurse 1 - General Ulcer Assessment Start: 06/02/21 10:16 Freq: Status: Active Protocol: .LOWEXT Activity Type Activity Date Activity User E-Sign Co-Sign Detail Recorded Client Recorded Date Recorded By Document 06/02/21 10:16 NM [id number] 06/02/21 10:33 REECE 06/02/21 10:16 - Today's Visit Information Type of service Follow-up Visit (Physician/FOOD ANALYST ) Arrival Mode Wheelchair Patient Identification Verified (Name & Yes ) Finger Stick Blood Sugar(mg/dl) (if 184 indicated): Blood Sugar Stated by Patient Height and Weight Body Mass Index (BMI) 28.6 BMI Classification Overweight Vital Signs Temperature (97.8 F-99.1 F) 96.9 F L Temperature Source Temporal Pulse Rate (60-100) 65 Pulse Location Monitor Blood Pressure (90/60-120/80) 150/73 H Blood Pressure Mean (mm Hg) 98 Source Monitor History Since Last Visit- (Skip if this is Patient's initial visit) Have you changed medications since your No last visit? Any new allergies or adverse reactions No Had a fall/change in ADL's that may No increase risk of falls Signs or symptoms of abuse and/or No neglect since last visit Have you been in the hospital since your No last visit? Has dressing in place as prescribed Yes Has compression in place as prescribed Yes Has offloadiing in place as prescribed No Experienced any changes in pain level or No management Left Footwear Regular Shoe Right Footwear Hope/Foam WC - Nurse 1 - General Ulcer Measurement Start: 06/02/21 10:16 Freq: Status: Active Protocol: Activity Type Activity Date Activity User E-Sign Co-Sign Detail Recorded Client Recorded Date Recorded By Document 06/02/21 10:16 REECE [id number] 06/02/21 10:33 REECE 06/02/21 10:16 Wound Center Nurse 1 2-left foot plantar -Combined with other wound No -Current Size (cm) - Length 1.4 -Current Size (cm) - Width 1.5 -Current Size (cm) - Depth 0.1 -Total Square Cm 2.10 -Epithelialization Small 1-33% -Tunneling No -Undermining/Tunneling No -Circular Undermining No -Exudate Amt None Present -Wound Margin Distinct, Outline Attached -Granulation Amt Medium (34-66%) -Granulation Quality N/A -Slough/Fibrin Yes -Necrosis Amt Medium (34-66%) -Necrotic Tissue Type Eschar -Structure Exposed N/A -Texture (Margy-wound Skin Appearance) Assessed -Moisture (Margy-wound Skin Appearance) No Abnormality, Assessed -Color (Margy-wound Skin Appearance) Assessed -Temperature (Margy-wound Skin No Abnormality Appearance) (Pt Warm) -Tenderness on Palpation (Margy-wound No Skin Appearance) -Ulcer Cleansing Rinsed/ Irrigated with Saline -Anesthetic Used 5% Lidocaine Gel #1- L FOOT TRANSMET POST OP -Combined with other wound No -Current Size (cm) - Length 0.3 -Current Size (cm) - Width 0.3 -Current Size (cm) - Depth 0.2 -Total Square Cm 0.09 -Photo Taken No -Epithelialization Small 1-33% -Tunneling No -Undermining/Tunneling No -Circular Undermining No -Exudate Amt Small -Exudate Type Purulent -Wound Margin Distinct, Outline Attached -Granulation Amt None Present (0 %) -Slough/Fibrin Yes -Texture (Margy-wound Skin Appearance) No Abnormality, Assessed -Moisture (Margy-wound Skin Appearance) No Abnormality, Assessed -Color (Margy-wound Skin Appearance) No Abnormality, Assessed -Temperature (Margy-wound Skin No Abnormality Appearance) (Pt Warm) -Ulcer Cleansing Rinsed/ Irrigated with Saline -Foul Odor after Cleansing No -Anesthetic Used 5% Lidocaine Gel Left Calf (cm) 32 Left Ankle (cm) 23 WC - Nurse 2 - General Ulcer CM Notes Start: 06/02/21 10:16 Freq: Status: Active Protocol: Activity Type Activity Date Activity User E-Sign Co-Sign Detail Recorded Client Recorded Date Recorded By Document 06/02/21 10:47 DIONI [id number] 06/02/21 10:55 DIONI 06/02/21 10:47 Wound Center Nurse 2 2-left foot plantar -Correct Patient No -Correct Side, Site, Position No -Correct Procedure No -Procedure Performed No -Post Debridement (cm) - Length 0 -Post Debridement (cm) - Width 0 -Post Debridement (cm) - Depth 0 -Total Square (Post) (cm) 0 -Area of Debridement (cm) - Length 0 -Area of Debridement (cm) - Width 0 -Total Square (Area) (cm) 0 -Wound/Ulcer Outcome Healed- Epithelialized #1- L FOOT TRANSMET POST OP -Time 10:50 -Correct Patient Yes -Correct Side, Site, Position Yes -Correct Procedure Yes -Procedure Performed Yes -Type of Procedure Debridement -Clinical Debridement Subcutaneous -Tissue Removed Subcutaneous -Post Debridement (cm) - Length 1.2 -Post Debridement (cm) - Width 1.8 -Post Debridement (cm) - Depth 0.4 -Total Square (Post) (cm) 2.16 -Area of Debridement (cm) - Length 1.2 -Area of Debridement (cm) - Width 1.8 -Total Square (Area) (cm) 2.16 -Tunneling No -Undermining/Tunneling No -Circular Undermining No -Wound/Ulcer Outcome Not Healed -Ulcer Cleansing Rinsed/ Irrigated with Saline -Foul Odor after Cleansing No -Bioengineered Tissue Yes -Type of Bioengineered Tissue Epifix -Expiration Date 01/28/26 -Product Lot Number [id number] -Percent Used 100 -Lot number of Saline Used [id number] -Bleeding Controlled with Pressure -Offloading No -Treatment Response Procedure Tolerated Well -Debridement - Subq, 1st 20sq cm No -Apply Skin Sub - 1st 25 sq cm - Feet 1 -Epifix (per sq cm) 4 Pain Scale: 0-10 Numeric Is Patient Pain Free? Yes Wound debrided: lateral amputation stump site of foot Wound Grade/Stage: 1 Type of Debridement: Excisional debridement Anesthesia Used: 4% Lidocaine Solution Depth: in the subcutaneous layer Percentage of wound debrided: 100 Instrument Used: #15 blade Tissue Removed: fibrous, devitalized subcutaneous, biofilm, slough Severity: Fat Layer Exposed Amount of bleeding with debridement: Mild Bleeding Controlled with: Pressure Patient tolerated procedure: Patient tolerated procedure well Assessment/Plan Assessment/Plan (1) Non-pressure chronic ulcer of other part of left foot with fat layer exposed: CODE(S): L97.522 - Non-pressure chronic ulcer of other part of left foot with fat layer exposed (2) Localized edema: CODE(S): R60.0 - Localized edema (3) Delayed wound healing: CODE(S): T14.8XXD - Other injury of unspecified body region, subsequent encounter (4) Deep venous thrombosis of distal end of left lower extremity: CODE(S): I82.4Z2 - Acute embolism and thrombosis of unspecified deep veins of left distal lower extremity (5) Type 2 diabetes mellitus with diabetic polyneuropathy: CODE(S): E11.42 - Type 2 diabetes mellitus with diabetic polyneuropathy QUALIFIERS: Diabetes mellitus bone char puller insulin use: unspecified senior care insulin use status Qualified Code(s): E11.42 - Type 2 diabetes mellitus with diabetic polyneuropathy (6) Blister (nonthermal), right foot, initial encounter: CODE(S): S90.821A - Blister (nonthermal), right foot, initial encounter (7) Difficulty in walking, not elsewhere classified: CODE(S): R26.2 - Difficulty in walking, not elsewhere classified PLAN: I reviewed and discussed her case today. The following work up and care recommendations were made: Dressing: To leave gauze dressing to the left dorsal lateral foot check the underlying epi fix, wound veil, and Steri-Strips that was applied today. To apply dry gauze to the drained blister site in which the skin was left intact to the biological barrier; stable. Her suture was also removed today and this plantar site is fully epithelialized and healed. Advanced wound healing: Verbal consent was obtained to apply epi fix. This was applied according standard protocol and was moistened with saline. This was further secured in place with a wound veil and Steri-Strips. She was advised to keep this clean, dry, and intact until follow-up. The benefits and anticipated healing and management were reviewed. 100% of the product was utilized Offload: To remain nonweightbearing to left lower extremity. She uses assistive device. She also hangs her heel over stacked pillows while in bed and has an egg crate offloading boot for additional protection. I recommend durable medical equipment to aid in the offloading process. She has a health condition that causes significant difficulty with moving around the home and unwanted movement will compromise her amputation healing site. She is unable to do activities of daily living even with the help of a cane crutch or walker. She is being treated by a physician for this condition and requires a wheelchair. She can use this equipment within the home. It is noted she is unable to use a manual wheelchair or manually adjust a hospital bed. This is medically necessary for wound healing, limb salvage, and to avoid return of limb threatening infections in the wound development. Orders were provided for lift chair, electric hospital bed, and electric wheelchair (power) today ([id number]). Authorization process will be initiated. This is medically necessary. Vascular: She had arterial Doppler performed on 02-05-21 in which there was no stenosis noted. She has triphasic waveforms. She was seen by vascular specialist, Dr. Hugo while in the transitional care unit and additional intervention is not recommended. Edema: To wear Tubigrip which was dispensed previously. To elevate at rest. It is also noted she had a recent deep venous thrombosis to the left calf which she was treated with therapeutic anticoagulation medication. She has completed this course. Infection: She had prior course of infection treated surgically medically. She also was reassured no local signs of infection are noted today. She is no longer on antibiotics and does not have any local or systemic signs of illness. Pain: Controlled likely secondary to her neuropathy. Host factors: Her comorbidities impair her healing process. She has delays in healing. I recommend continue nutritional supplementation to optimize healing. Labs: Reviewed from 05-10-21 without leukocytosis or other gross abnormalities. Prior A1c 6.7% Imaging: Left foot x-ray performed on 02-19-21 with subsequent transmetatarsal amputation without soft tissue emphysema or foreign body or acute other injuries or Charcot event. Deep venous thrombosis management: She is no longer taking Eliquis secondary to nosebleed. She relates she had an updated scan which did not demonstrate continued clotting. She does not have clinical signs of acute blood clot. Therapy: I recommend continue outpatient therapy to prevent deconditioning and also to aid with wound care requirements. I answered all the patient's questions. To return to the wound healing center in 1 week or call sooner if any questions or concerns. 20 minutes was spent on this encounter. This included face to face and non face to face care including preparing for the visit, reviewing the history, performing the exam, counseling and providing education to the patient, family, or caregiver, ordering medications/test/ procedures if indicated as documented, communicating with other healthcare providers, documenting information in the medical record, interpreting / sharing this information when indicated as documented, and care coordination.
[2021-06-16 10:16] VITALS: BP 122/77; PULSE 66; RESP 20; TEMP 36.7; BMI 28.6
--- NOTE | 2021-06-16 14:03 | PN.PCM_ITS ---
History of Present Illness Date of Service: 06/16/21 Chief Complaint: Left foot ulcer History of Wound: This 66-year-old diabetic female with other comorbidities including recent DVT, anemia, neuropathy, and others was seen for a left foot ulcer. She has a complex history of infection with foot surgeries. Her last foot surgery was performed at [facility] on 02-25-21 which included a transmetatarsal amputation with rotational flap. She did have some subsequent flap compromise with delayed wound healing. Now she is in assisted living. She has been offloading as advised. She denies fever, chill, nausea, vomiting, redness, odor. She has been tolerating advanced wound product, epifix application as well. Progress of Wound: Improving Objective Data Objective Data Vital Signs: Vital Signs Temp Pulse Resp BP 98.1 F 66 20 H 122/77 H 06/16/21 10:16 06/16/21 10:16 06/16/21 10:16 06/16/21 10:16 Weight: 70.307 kg Body Mass Index (BMI) 28.6 Physical Exam Extremity Extremity Narrative: No calf tenderness Diminished pulses Muscle wasting noted Left transmetatarsal amputation No pain with ulcer manipulation Skin Skin Narrative: no purulence, no streaking, no odor, no infection. Skin is atrophic and hairless. Plantar aspect remains fully healed. Dorsal lateral stump wound site is stable with granular base. There is no deep tissue exposure. The adjacent skin does not have bogginess or fluctuance on palpation. Healed prior bulla site with full epithelialization. No necrosis. Neuro Neuro Narrative: lack of normal epicritic sensation via light touch is consistent with neuropathy status Debridement Note Debridement Note Post-Debridement Measurements and Additional Note: Post-Debridement Measurements/Treatment - Nurse 1 - General Ulcer Assessment Start: 06/02/21 10:16 Freq: Status: Active Protocol: LEO.[email or web address] Activity Type Activity Date Activity User E-Sign Co-Sign Detail Recorded Client Recorded Date Recorded By Document 06/02/21 10:16 AK [id number] 06/02/21 10:33 AK Document 06/16/21 10:16 DL [id number] 06/16/21 10:25 DL 06/02/21 06/16/21 10:16 10:16 - Today's Visit Information Type of service Follow-up Visit Follow-up Visit (Physician/INSTANT POWDER SUPERVISOR (Physician/INSTANT POWDER SUPERVISOR ) ) Arrival Mode Wheelchair Wheelchair Transfer Assistance Manual Transfer Assist (Other) x1 Patient Identification Verified (Name & Yes Yes ) Finger Stick Blood Sugar(mg/dl) (if 184 indicated): Blood Sugar Stated by Patient Height and Weight Body Mass Index (BMI) 28.6 28.6 BMI Classification Overweight Overweight Vital Signs Temperature (97.8 F-99.1 F) 96.9 F L 98.1 F Temperature Source Temporal Temporal Pulse Rate (60-100) 65 66 Pulse Location Monitor Monitor Respiratory Rate (12-18) 20 H Respiratory rate source Observation Blood Pressure (90/60-120/80) 150/73 H 122/77 H Blood Pressure Mean (mm Hg) 98 92 Source Monitor Monitor History Since Last Visit- (Skip if this is Patient's initial visit) Have you changed medications since your No No last visit? Any new allergies or adverse reactions No No Had a fall/change in ADL's that may No No increase risk of falls Signs or symptoms of abuse and/or No No neglect since last visit Have you been in the hospital since your No No last visit? Has dressing in place as prescribed Yes Yes Has compression in place as prescribed Yes Yes Has offloadiing in place as prescribed No Yes Experienced any changes in pain level or No No management Left Footwear Regular Shoe Right Footwear [place]/Foam Pain Scale: 0-10 Numeric Is Patient Pain Free? Yes WC - Nurse 1 - General Ulcer Measurement Start: 06/02/21 10:16 Freq: Status: Active Protocol: Activity Type Activity Date Activity User E-Sign Co-Sign Detail Recorded Client Recorded Date Recorded By Document 06/02/21 10:16 AK [id number] 06/02/21 10:33 AK Document 06/16/21 10:16 DL [id number] 06/16/21 10:25 DL 06/02/21 06/16/21 10:16 10:16 Wound Center Nurse 1 2-left foot plantar -Combined with other wound No -Current Size (cm) - Length 1.4 -Current Size (cm) - Width 1.5 -Current Size (cm) - Depth 0.1 -Total Square Cm 2.10 -Epithelialization Small 1-33% -Tunneling No -Undermining/Tunneling No -Circular Undermining No -Exudate Amt None Present -Wound Margin Distinct, Outline Attached -Granulation Amt Medium (34-66%) -Granulation Quality N/A -Slough/Fibrin Yes -Necrosis Amt Medium (34-66%) -Necrotic Tissue Type Eschar -Structure Exposed N/A -Texture (Margy-wound Skin Appearance) Assessed -Moisture (Margy-wound Skin Appearance) No Abnormality, Assessed -Color (Margy-wound Skin Appearance) Assessed -Temperature (Margy-wound Skin No Abnormality Appearance) (Pt Warm) -Tenderness on Palpation (Margy-wound No Skin Appearance) -Ulcer Cleansing Rinsed/ Irrigated with Saline -Anesthetic Used 5% Lidocaine Gel #1- L FOOT TRANSMET POST OP -Combined with other wound No -Current Size (cm) - Length 0.3 0.3 -Current Size (cm) - Width 0.3 0.7 -Current Size (cm) - Depth 0.2 0.3 -Total Square Cm 0.09 0.21 -Photo Taken No No -Epithelialization Small 1-33% -Tunneling No -Undermining/Tunneling No -Circular Undermining No -Exudate Amt Small Small -Exudate Type Purulent Serosanguineous -Wound Margin Distinct, Thickened Outline Attached -Granulation Amt None Present (0 Large (67-100%) %) -Granulation Quality Pale,Tibbie -Slough/Fibrin Yes -Necrosis Amt Small (1-33%) -Necrotic Tissue Type Adherent Slough -Structure Exposed N/A -Texture (Margy-wound Skin Appearance) No Abnormality, Scarring Assessed -Moisture (Margy-wound Skin Appearance) No Abnormality, Dry/Scaly Assessed -Color (Margy-wound Skin Appearance) No Abnormality, Assessed Assessed -Temperature (Margy-wound Skin No Abnormality No Abnormality Appearance) (Pt Warm) (Pt Warm) -Tenderness on Palpation (Margy-wound No Skin Appearance) -Ulcer Cleansing Rinsed/ Irrigated with Saline -Foul Odor after Cleansing No Yes, Due to Product Use -Anesthetic Used 5% Lidocaine 5% Lidocaine Gel Gel Left Calf (cm) 32 33.5 Left Ankle (cm) 23 23 WC - Nurse 2 - General Ulcer CM Notes Start: 06/02/21 10:16 Freq: Status: Active Protocol: Activity Type Activity Date Activity User E-Sign Co-Sign Detail Recorded Client Recorded Date Recorded By Document 06/02/21 10:47 DIONI [id number] 06/02/21 10:55 DIONI Document 06/16/21 10:40 [id number] 06/16/21 10:45 06/02/21 06/16/21 10:47 10:40 Wound Center Nurse 2 2-left foot plantar -Correct Patient No -Correct Side, Site, Position No -Correct Procedure No -Procedure Performed No -Post Debridement (cm) - Length 0 -Post Debridement (cm) - Width 0 -Post Debridement (cm) - Depth 0 -Total Square (Post) (cm) 0 -Area of Debridement (cm) - Length 0 -Area of Debridement (cm) - Width 0 -Total Square (Area) (cm) 0 -Wound/Ulcer Outcome Healed- Epithelialized #1- L FOOT TRANSMET POST OP -Time 10:50 10:40 -Correct Patient Yes Yes -Correct Side, Site, Position Yes Yes -Correct Procedure Yes Yes -Procedure Performed Yes Yes -Type of Procedure Debridement Debridement -Clinical Debridement Subcutaneous Subcutaneous -Tissue Removed Subcutaneous Subcutaneous -Post Debridement (cm) - Length 1.2 0.3 -Post Debridement (cm) - Width 1.8 0.8 -Post Debridement (cm) - Depth 0.4 0.3 -Total Square (Post) (cm) 2.16 0.24 -Area of Debridement (cm) - Length 1.2 0.3 -Area of Debridement (cm) - Width 1.8 0.8 -Total Square (Area) (cm) 2.16 0.24 -Tunneling No No -Undermining/Tunneling No No -Circular Undermining No No -Wound/Ulcer Outcome Not Healed Not Healed -Ulcer Cleansing Rinsed/ Rinsed/ Irrigated with Irrigated with Saline Saline -Foul Odor after Cleansing No No -Bioengineered Tissue Yes Yes -Type of Bioengineered Tissue Epifix Epifix 18mm Disc -Expiration Date 01/28/26 01/28/26 -Product Lot Number [id number] -Percent Used 100 100 -Lot number of Saline Used [id number] -Bleeding Controlled with Pressure Silver Nitrate -Offloading No No -Treatment Response Procedure Procedure Tolerated Well Tolerated Well -Debridement - Subq, 1st 20sq cm No No -Apply Skin Sub - 1st 25 sq cm - Feet 1 1 -Epifix (per sq cm) 4 -Epifix 18mm Disc 3 Pain Scale: 0-10 Numeric Is Patient Pain Free? Yes Yes WC - Nurse 3 - General Ulcer D/C NN Start: 06/02/21 10:16 Freq: Status: Active Protocol: Activity Type Activity Date Activity User E-Sign Co-Sign Detail Recorded Client Recorded Date Recorded By Document 06/02/21 11:15 KR [id number] 06/02/21 11:15 KR Document 06/16/21 10:51 [facility] [id number] 06/16/21 10:52 [facility] 06/02/21 06/16/21 11:15 10:51 Wound Care Nurse 3 #1- L FOOT TRANSMET POST OP -Primary Dressing Applied Other -Other Dressing epifix -Primary Dressing Covered/Secured with Dry Gauze,Dry Dry Gauze & Gauze & Roll Roll Gauze, Gauze,Secured Secured with with Tape Tape -Other Covering anu beckwith rn Left -Tubular Bandage Single Layer -Size of Tubigrip Used Size D -Size D ($) 1 Treatment Response Procedure Tolerated Well Pain Scale: 0-10 Numeric Is Patient Pain Free? Yes Yes - Visit Discharge Discharge Condition Stable Stable Ambulatory Status Wheelchair Wheelchair Transportation Private Auto Other assisted living Wound debrided: left foot Wound Grade/Stage: 1 Type of Debridement: Excisional debridement Anesthesia Used: 4% Lidocaine Solution Depth: in the subcutaneous layer Percentage of wound debrided: 100 Instrument Used: #15 blade Tissue Removed: fibrous, devitalized subcutaneous, biofilm, slough Severity: Fat Layer Exposed Amount of bleeding with debridement: Mild Bleeding Controlled with: Pressure Patient tolerated procedure: Patient tolerated procedure well Assessment/Plan Assessment/Plan (1) Non-pressure chronic ulcer of other part of left foot with fat layer exposed: CODE(S): L97.522 - Non-pressure chronic ulcer of other part of left foot with fat layer exposed (2) Localized edema: CODE(S): R60.0 - Localized edema (3) Delayed wound healing: CODE(S): T14.8XXD - Other injury of unspecified body region, subsequent encounter (4) Deep venous thrombosis of distal end of left lower extremity: CODE(S): I82.4Z2 - Acute embolism and thrombosis of unspecified deep veins of left distal lower extremity (5) Type 2 diabetes mellitus with diabetic polyneuropathy: CODE(S): E11.42 - Type 2 diabetes mellitus with diabetic polyneuropathy QUALIFIERS: Diabetes mellitus ferry terminal supervisor insulin use: unspecified usp insulin use status Qualified Code(s): E11.42 - Type 2 diabetes mellitus with diabetic polyneuropathy (6) Blister (nonthermal), right foot, initial encounter: CODE(S): S90.821A - Blister (nonthermal), right foot, initial encounter (7) Difficulty in walking, not elsewhere classified: CODE(S): R26.2 - Difficulty in walking, not elsewhere classified PLAN: I reviewed and discussed her case today. The following work up and care recommendations were made: Dressing: To leave gauze dressing to the left dorsal lateral foot check the underlying epi fix, wound veil, and Steri-Strips that was applied today. Advanced wound healing: Verbal consent was obtained to apply epi fix. This was applied according standard protocol and was moistened with saline. This was further secured in place with a wound veil and Steri-Strips. She was advised to keep this clean, dry, and intact until follow-up. The benefits and anticipated healing and management were reviewed. 100% of the product was utilized Offload: To remain nonweightbearing to left lower extremity. She uses assistive device. She also hangs her heel over stacked pillows while in bed and has an eg g crate offloading boot for additional protection. I recommend durable medical equipment to aid in the offloading process. She has a health condition that causes significant difficulty with moving around the home and unwanted movement will compromise her amputation healing site. She is unable to do activities of daily living even with the help of a cane crutch or walker. She is being treated by a physician for this condition and requires a wheelchair. She can use this equipment within the home. It is noted she is unable to use a manual wheelchair or manually adjust a hospital bed. This is medically necessary for wound healing, limb salvage, and to avoid return of limb threatening infections in the wound development. Orders were provided for lift chair, electric hospital bed, and electric wheelchair (power) today ([id number]). Authorization process will be initiated. This is medically necessary. Vascular: She had arterial Doppler performed on 02-05-21 in which there was no stenosis noted. She has triphasic waveforms. She was seen by vascular specialist, Dr. Hugo while in the transitional care unit and additional intervention is not recommended. Edema: To wear Tubigrip which was dispensed previously. To elevate at rest. It is also noted she had a recent deep venous thrombosis to the left calf which she was treated with therapeutic anticoagulation medication. She has completed this course. Infection: She had prior course of infection treated surgically medically. She also was reassured no local signs of infection are noted today. She is no longer on antibiotics and does not have any local or systemic signs of illness. Pain: Controlled likely secondary to her neuropathy. Host factors: Her comorbidities impair her healing process. She has delays in healing. I recommend continue nutritional supplementation to optimize healing. Labs: Reviewed from 05-10-21 without leukocytosis or other gross abnormalities. Prior A1c 6.7% Imaging: Left foot x-ray performed on 02-19-21 with subsequent transmetatarsal amputation without soft tissue emphysema or foreign body or acute other injuries or Charcot event. Deep venous thrombosis management: She is no longer taking Eliquis secondary to nosebleed. She relates she had an updated scan which did not demonstrate continued clotting. She does not have clinical signs of acute blood clot. Therapy: I recommend continue outpatient therapy to prevent deconditioning and also to aid with wound care requirements. I answered all the patient's questions. To return to the wound healing center in 1 week or call sooner if any questions or concerns.
[2021-06-23 09:55] VITALS: BP 136/88; PULSE 66; RESP 20; BMI 28.6
--- NOTE | 2021-06-23 10:56 | PN.PCM_ITS ---
History of Present Illness Date of Service: 06/23/21 Chief Complaint: Left foot ulcer History of Wound: This 66-year-old diabetic female with other comorbidities including recent DVT, anemia, neuropathy, and others was seen for a left foot ulcer. She has a complex history of infection with foot surgeries. Her last foot surgery was performed at [facility] on 02-25-21 which included a transmetatarsal amputation with rotational flap. She did have some subsequent flap compromise with delayed wound healing. Now she is in assisted living. She has been offloading as advised. She denies fever, chill, nausea, vomiting, redness, odor. She has been tolerating advanced wound product, epifix application as well. Progress of Wound: Improving Objective Data Objective Data Vital Signs: Vital Signs Temp Pulse Resp BP 98.1 F 66 20 H 136/88 H 06/16/21 10:16 06/23/21 09:55 06/23/21 09:55 06/23/21 09:55 Weight: 70.307 kg Body Mass Index (BMI) 28.6 Physical Exam Extremity Extremity Narrative: No calf tenderness Diminished pulses Muscle wasting noted Left transmetatarsal amputation No pain with ulcer manipulation Skin Skin Narrative: no purulence, no streaking, no odor, no infection. Skin is atrophic and hairless. Plantar aspect remains fully healed. Dorsal lateral stump wound site is stable with granular base. There is no deep tissue exposure. The adjacent skin does not have bogginess or fluctuance on palpation. Healed prior bulla site with full epithelialization. No necrosis. Neuro Neuro Narrative: lack of normal epicritic sensation via light touch is consistent with neuropathy status Debridement Note Debridement Note Post-Debridement Measurements and Additional Note: Post-Debridement Measurements/Treatment - Nurse 1 - General Ulcer Assessment Start: 06/02/21 10:16 Freq: Status: Active Protocol: [place] Activity Type Activity Date Activity User E-Sign Co-Sign Detail Recorded Client Recorded Date Recorded By Document 06/02/21 10:16 AK [id number] 06/02/21 10:33 AK Document 06/16/21 10:16 DL [id number] 06/16/21 10:25 DL Document 06/23/21 09:55 DL [id number] 06/23/21 10:04 DL 06/02/21 06/16/21 06/23/21 10:16 10:16 09:55 - Today's Visit Information Type of service Follow-up Visit Follow-up Visit Follow-up Visit (Physician/MULTIMEDIA JOURNALIST (Physician/MULTIMEDIA JOURNALIST (Physician/MULTIMEDIA JOURNALIST ) ) ) Arrival Mode Wheelchair Wheelchair Wheelchair Transfer Assistance Manual Manual Transfer Assist (Other) x1 x1 Patient Identification Verified (Name & Yes Yes Yes ) Patient Requires Transmission-Based No Precautions Finger Stick Blood Sugar(mg/dl) (if 184 indicated): Blood Sugar Stated by Patient Height and Weight Body Mass Index (BMI) 28.6 28.6 28.6 BMI Classification Overweight Overweight Overweight Vital Signs Temperature (97.8 F-99.1 F) 96.9 F L 98.1 F Temperature Source Temporal Temporal Pulse Rate (60-100) 65 66 66 Pulse Location Monitor Monitor Monitor Respiratory Rate (12-18) 20 H 20 H Respiratory rate source Observation Observation Blood Pressure (90/60-120/80) 150/73 H 122/77 H 136/88 H Blood Pressure Mean (mm Hg) 98 92 104 Source Monitor Monitor Monitor History Since Last Visit- (Skip if this is Patient's initial visit) Have you changed medications since your No No No last visit? Any new allergies or adverse reactions No No No Had a fall/change in ADL's that may No No No increase risk of falls Signs or symptoms of abuse and/or No No No neglect since last visit Have you been in the hospital since your No No No last visit? Has dressing in place as prescribed Yes Yes Yes Has compression in place as prescribed Yes Yes Yes Has offloadiing in place as prescribed No Yes Yes Experienced any changes in pain level or No No No management Left Footwear Regular Shoe Surgical Shoe with pressure relief insole Right Footwear [place]/Foam Pain Scale: 0-10 Numeric Is Patient Pain Free? Yes Yes - Nurse 1 - General Ulcer Measurement Start: 06/02/21 10:16 Freq: Status: Active Protocol: Activity Type Activity Date Activity User E-Sign Co-Sign Detail Recorded Client Recorded Date Recorded By Document 06/02/21 10:16 AK [id number] 06/02/21 10:33 AK Document 06/16/21 10:16 DL [id number] 06/16/21 10:25 DL Document 06/23/21 09:55 DL [id number] 06/23/21 10:04 DL 06/02/21 06/16/21 06/23/21 10:16 10:16 09:55 Wound Center Nurse 1 2-left foot plantar -Combined with other wound No -Current Size (cm) - Length 1.4 -Current Size (cm) - Width 1.5 -Current Size (cm) - Depth 0.1 -Total Square Cm 2.10 -Epithelialization Small 1-33% -Tunneling No -Undermining/Tunneling No -Circular Undermining No -Exudate Amt None Present -Wound Margin Distinct, Outline Attached -Granulation Amt Medium (34-66%) -Granulation Quality N/A -Slough/Fibrin Yes -Necrosis Amt Medium (34-66%) -Necrotic Tissue Type Eschar -Structure Exposed N/A -Texture (Margy-wound Skin Appearance) Assessed -Moisture (Margy-wound Skin Appearance) No Abnormality, Assessed -Color (Margy-wound Skin Appearance) Assessed -Temperature (Margy-wound Skin No Abnormality Appearance) (Pt Warm) -Tenderness on Palpation (Margy-wound No Skin Appearance) -Ulcer Cleansing Rinsed/ Irrigated with Saline -Anesthetic Used 5% Lidocaine Gel #1- L FOOT TRANSMET POST OP -Combined with other wound No -Current Size (cm) - Length 0.3 0.3 0.1 -Current Size (cm) - Width 0.3 0.7 0.1 -Current Size (cm) - Depth 0.2 0.3 0.1 -Total Square Cm 0.09 0.21 0.01 -Photo Taken No No No -Epithelialization Small 1-33% -Tunneling No -Undermining/Tunneling No -Circular Undermining No -Classification - Thickness Full Thickness without Exposed Support Structure -Exudate Amt Small Small None Present -Exudate Type Purulent Serosanguineous -Wound Margin Distinct, Thickened Distinct, Outline Outline Attached Attached -Granulation Amt None Present (0 Large (67-100%) Large (67-100%) %) -Granulation Quality Pale,[place] -Slough/Fibrin Yes -Necrosis Amt Small (1-33%) Small (1-33%) -Necrotic Tissue Type Adherent Slough Adherent Slough -Structure Exposed N/A N/A -Texture (Margy-wound Skin Appearance) No Abnormality, Scarring Scarring Assessed -Moisture (Margy-wound Skin Appearance) No Abnormality, Dry/Scaly No Abnormality Assessed -Color (Margy-wound Skin Appearance) No Abnormality, Assessed No Abnormality Assessed -Temperature (Margy-wound Skin No Abnormality No Abnormality No Abnormality Appearance) (Pt Warm) (Pt Warm) (Pt Warm) -Tenderness on Palpation (Margy-wound No No Skin Appearance) -Ulcer Cleansing Rinsed/ Wound Cleanser Irrigated with Saline -Foul Odor after Cleansing No Yes, Due to No Product Use -Anesthetic Used 5% Lidocaine 5% Lidocaine 4% Lidocaine Gel Gel Solution Left Calf (cm) 32 33.5 32.3 Left Ankle (cm) 23 23 21.3 WC - Nurse 2 - General Ulcer CM Notes Start: 06/02/21 10:16 Freq: Status: Active Protocol: Activity Type Activity Date Activity User E-Sign Co-Sign Detail Recorded Client Recorded Date Recorded By Document 06/02/21 10:47 [id number] 06/02/21 10:55 Document 06/16/21 10:40 [id number] 06/16/21 10:45 Document 06/23/21 10:26 [id number] 06/23/21 10:32 06/02/21 06/16/21 06/23/21 10:47 10:40 10:26 Wound Center Nurse 2 2-left foot plantar -Correct Patient No -Correct Side, Site, Position No -Correct Procedure No -Procedure Performed No -Post Debridement (cm) - Length 0 -Post Debridement (cm) - Width 0 -Post Debridement (cm) - Depth 0 -Total Square (Post) (cm) 0 -Area of Debridement (cm) - Length 0 -Area of Debridement (cm) - Width 0 -Total Square (Area) (cm) 0 -Wound/Ulcer Outcome Healed- Epithelialized #1- L FOOT TRANSMET POST OP -Time 10:50 10:40 10:28 -Correct Patient Yes Yes Yes -Correct Side, Site, Position Yes Yes Yes -Correct Procedure Yes Yes Yes -Procedure Performed Yes Yes Yes -Type of Procedure Debridement Debridement Debridement -Clinical Debridement Subcutaneous Subcutaneous Subcutaneous -Tissue Removed Subcutaneous Subcutaneous Subcutaneous -Post Debridement (cm) - Length 1.2 0.3 1.3 -Post Debridement (cm) - Width 1.8 0.8 0.3 -Post Debridement (cm) - Depth 0.4 0.3 0.3 -Total Square (Post) (cm) 2.16 0.24 0.39 -Area of Debridement (cm) - Length 1.2 0.3 1.3 -Area of Debridement (cm) - Width 1.8 0.8 0.3 -Total Square (Area) (cm) 2.16 0.24 0.39 -Tunneling No No No -Undermining/Tunneling No No No -Circular Undermining No No No -Wound/Ulcer Outcome Not Healed Not Healed Not Healed -Ulcer Cleansing Rinsed/ Rinsed/ Rinsed/ Irrigated with Irrigated with Irrigated with Saline Saline Saline -Foul Odor after Cleansing No No No -Bioengineered Tissue Yes Yes Yes -Type of Bioengineered Tissue Epifix Epifix 18mm Epifix 18mm Disc Disc -Expiration Date 01/28/26 01/28/26 01/28/26 -Product Lot Number [id number] -Percent Used 100 100 100 -Lot number of Saline Used [id number] -Bleeding Controlled with Pressure Silver Nitrate Pressure -Offloading No No Yes -Type of Offloading Surgical Shoe -Treatment Response Procedure Procedure Procedure Tolerated Well Tolerated Well Tolerated Well -Debridement - Subq, 1st 20sq cm No No No -Apply Skin Sub - 1st 25 sq cm - Feet 1 1 1 -Epifix (per sq cm) 4 -Epifix 18mm Disc 3 3 Pain Scale: 0-10 Numeric Is Patient Pain Free? Yes Yes Yes - Nurse 3 - General Ulcer D/C NN Start: 06/02/21 10:16 Freq: Status: Active Protocol: Activity Type Activity Date Activity User E-Sign Co-Sign Detail Recorded Client Recorded Date Recorded By Document 06/02/21 11:15 [id number] 06/02/21 11:15 KR Document 06/16/21 10:51 [facility] [id number] 06/16/21 10:52 [facility] Document 06/23/21 10:50 [facility] [id number] 06/23/21 10:51 [facility] 06/02/21 06/16/21 06/23/21 11:15 10:51 10:50 Wound Care Nurse 3 #1- L FOOT TRANSMET POST OP -Primary Dressing Applied Other -Other Dressing epifix epifix -Primary Dressing Covered/Secured with Dry Gauze,Dry Dry Gauze & Dry Gauze & Gauze & Roll Roll Gauze, Roll Gauze, Gauze,Secured Secured with Secured with with Tape Tape Tape,Other -Other Covering anu beckwith rn Left -Tubular Bandage Single Layer Single Layer -Size of Tubigrip Used Size D Size D -Size D ($) 1 1 Treatment Response Procedure Procedure Tolerated Well Tolerated Well Pain Scale: 0-10 Numeric Is Patient Pain Free? Yes Yes Yes WC - Visit Discharge Discharge Condition Stable Stable Stable Ambulatory Status Wheelchair Wheelchair Wheelchair Transportation Private Auto Private Auto Accompanied by Other assisted living Wound debrided: left foot Wound Grade/Stage: 1 Type of Debridement: Excisional debridement Anesthesia Used: 4% Lidocaine Solution Depth: in the subcutaneous layer Percentage of wound debrided: 100 Instrument Used: #15 blade Tissue Removed: fibrous, devitalized subcutaneous, biofilm, slough Severity: Fat Layer Exposed Amount of bleeding with debridement: Mild Bleeding Controlled with: Pressure Patient tolerated procedure: Patient tolerated procedure well Assessment/Plan Assessment/Plan (1) 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: CODE(S): L97.522 - Non-pressure chronic ulcer of other part of left foot with fat layer exposed (2) Localized edema: CODE(S): R60.0 - Localized edema (3) Delayed wound healing: CODE(S): T14.8XXD - Other injury of unspecified body region, subsequent encounter (4) Deep venous thrombosis of distal end of left lower extremity: CODE(S): I82.4Z2 - Acute embolism and thrombosis of unspecified deep veins of left distal lower extremity (5) Type 2 diabetes mellitus with diabetic polyneuropathy: CODE(S): E11.42 - Type 2 diabetes mellitus with diabetic polyneuropathy QUALIFIERS: Diabetes mellitus exterminator helper termite insulin use: unspecified exterminator helper termite insulin use status Qualified Code(s): E11.42 - Type 2 diabetes mellitus with diabetic polyneuropathy (6) Blister (nonthermal), right foot, initial encounter: CODE(S): S90.821A - Blister (nonthermal), right foot, initial encounter (7) Difficulty in walking, not elsewhere classified: CODE(S): R26.2 - Difficulty in walking, not elsewhere classified PLAN: I reviewed and discussed her case today. The following work up and care recommendations were made: Dressing: To leave gauze dressing to the left dorsal lateral foot check the underlying epi fix, wound veil, and Steri-Strips that was applied today. Advanced wound healing: Verbal consent was obtained to apply epi fix. This was applied according standard protocol and was moistened with saline. This was further secured in place with a wound veil and Steri-Strips. She was advised to keep this clean, dry, and intact until follow-up. The benefits and anticipated healing and management were reviewed. 100% of the product was utilized. Offload: To remain nonweightbearing to left lower extremity. She uses assistive device. She also hangs her heel over stacked pillows while in bed and has an egg crate offloading boot for additional protection. I recommend durable medical equipment to aid in the offloading process. She has a health condition that causes significant difficulty with moving around the home and unwanted movement will compromise her amputation healing site. She is unable to do activities of daily living even with the help of a cane crutch or walker. She is being treated by a physician for this condition and requires a wheelchair. She can use this equipment within the home. It is noted she is unable to use a manual wheelchair or manually adjust a hospital bed. This is medically necessary for wound healing, limb salvage, and to avoid return of limb threatening infections in the wound development. Orders were provided for lift chair, electric hospital bed, and electric wheelchair (power) today ([id number]). Authorization process will be initiated. This is medically necessary. Vascular: She had arterial Doppler performed on 02-05-21 in which there was no stenosis noted. She has triphasic waveforms. She was seen by vascular specialist, Dr. Hugo while in the transitional care unit and additional intervention is not recommended. Edema: To wear Tubigrip which was dispensed previously. To elevate at rest. It is also noted she had a recent deep venous thrombosis to the left calf which she was treated with therapeutic anticoagulation medication. She has completed this course. Infection: She had prior course of infection treated surgically medically. She also was reassured no local signs of infection are noted today. She is no longer on antibiotics and does not have any local or systemic signs of illness. Pain: Controlled likely secondary to her neuropathy. Host factors: Her comorbidities impair her healing process. She has delays in healing. I recommend continue nutritional supplementation to optimize healing. Labs: Reviewed from 05-10-21 without leukocytosis or other gross abnormalities. Prior A1c 6.7% Imaging: Left foot x-ray performed on 02-19-21 with subsequent transmetatarsal amputation without soft tissue emphysema or foreign body or acute other injuries or Charcot event. Deep venous thrombosis management: She is no longer taking Eliquis secondary to nosebleed. She relates she had an updated scan which did not demonstrate continued clotting. She does not have clinical signs of acute blood clot. Therapy: I recommend continue outpatient therapy to prevent deconditioning and also to aid with wound care requirements. I answered all the patient's questions. To return to the wound healing center in 1 week or call sooner if any questions or concerns.
== END 2021-06-29 23:59 ==
LOC: WC 10:00
PROVIDERS: PCP Family Medicine; Visit Provider Podiatrist
DX: E11.621 Type 2 diabetes mellitus with foot ulcer (principal); T87.89 Other complications of amputation stump; Y83.8 Other surgical procedures as the cause of abnormal reaction of the patient, or of later complication, without mention of misadventure at the time of the procedure; L97.522 Non-pressure chronic ulcer of other part of left foot with fat layer exposed; E11.42 Type 2 diabetes mellitus with diabetic polyneuropathy; Z86.718 Personal history of other venous thrombosis and embolism; S90.821D Blister (nonthermal), right foot, subsequent encounter; X58.XXXD Exposure to other specified factors, subsequent encounter; R26.2 Difficulty in walking, not elsewhere classified; R60.0 Localized edema
CPT/HCPCS: 15275; Q4186

== ENCOUNTER 2021-07-28 10:00 | Outpatient (RCR) | payer MEDICARE, OTHER, SELFPAY ==
[2021-06-30 00:35] VITALS: BP 136/88; PULSE 66; RESP 20; TEMP 36.7; BMI 28.6
[2021-06-30 10:04] VITALS: BP 189/92; PULSE 66; RESP 18; TEMP 36.6; BMI 28.6
--- NOTE | 2021-06-30 15:19 | PCM.WC.PN ---
History of Present Illness Date of Service: 06/30/21 Chief Complaint: Left foot ulcer History of Wound: This 66-year-old diabetic female with other comorbidities including recent DVT, anemia, neuropathy, and others was seen for a left foot ulcer. She has a complex history of infection with foot surgeries. Her last foot surgery was performed at [facility] on 02-25-21 which included a transmetatarsal amputation with rotational flap. She did have some subsequent flap compromise with delayed wound healing. Now she is in assisted living. She has been offloading as advised. She denies fever, chill, nausea, vomiting, redness, odor. She has been tolerating advanced wound product, epifix application as well. Progress of Wound: Improving Objective Data Objective Data Vital Signs: Vital Signs Temp Pulse Resp BP 97.9 F 66 18 189/92 H 06/30/21 10:04 06/30/21 10:04 06/30/21 10:04 06/30/21 10:04 Weight: 70.307 kg Body Mass Index (BMI) 28.6 Physical Exam Extremity Extremity Narrative: No calf tenderness Diminished pulses Muscle wasting noted Left transmetatarsal amputation No pain with ulcer manipulation Skin Skin Narrative: no purulence, no streaking, no odor, no infection. Skin is atrophic and hairless. Plantar aspect remains fully healed. Dorsal lateral stump wound site is stable with granular base. There is no deep tissue exposure. The adjacent skin does not have bogginess or fluctuance on palpation. Healed prior bulla site with full epithelialization. No necrosis. Neuro Neuro Narrative: lack of normal epicritic sensation via light touch is consistent with neuropathy status Debridement Note Debridement Note Wound debrided: left foot Wound Grade/Stage: 1 Type of Debridement: Excisional debridement Anesthesia Used: 4% Lidocaine Solution Depth: in the subcutaneous layer Percentage of wound debrided: 100 Instrument Used: #15 blade Tissue Removed: fibrous, devitalized subcutaneous, biofilm, slough Severity: Fat Layer Exposed Amount of bleeding with debridement: Mild Bleeding Controlled with: Pressure Patient tolerated procedure: Patient tolerated procedure well Post-Debridement Measurements and Additional Note: Post-Debridement Measurements/Treatment LEO - Nurse 1 - General Ulcer Assessment Start: 06/30/21 10:03 Freq: Status: Active Protocol: [place] Activity Type Activity Date Activity User E-Sign Co-Sign Detail Recorded Client Recorded Date Recorded By Document 06/30/21 10:04 DL [id number] 06/30/21 10:13 06/30/21 10:04 - Today's Visit Information Type of service Follow-up Visit (Physician/[employer] ) Arrival Mode Wheelchair Transfer Assistance None Patient Identification Verified (Name & Yes ) Patient Requires Transmission-Based No Precautions Height and Weight Body Mass Index (BMI) 28.6 BMI Classification Overweight Vital Signs Temperature (97.8 F-99.1 F) 97.9 F Temperature Source Temporal Pulse Rate (60-100) 66 Pulse Location Monitor Respiratory Rate (12-18) 18 Respiratory rate source Observation Blood Pressure (90/60-120/80) 189/92 H Blood Pressure Mean (mm Hg) 124 Source Monitor History Since Last Visit- (Skip if this is Patient's initial visit) Have you changed medications since your No last visit? Any new allergies or adverse reactions No Had a fall/change in ADL's that may No increase risk of falls Signs or symptoms of abuse and/or No neglect since last visit Have you been in the hospital since your No last visit? Has dressing in place as prescribed Yes Has compression in place as prescribed N/A Has offloadiing in place as prescribed Yes Experienced any changes in pain level or No management Left Footwear Wedge Shoe Pain Scale: 0-10 Numeric Is Patient Pain Free? Yes - Nurse 1 - General Ulcer Measurement Start: 06/30/21 10:03 Freq: Status: Active Protocol: Activity Type Activity Date Activity User E-Sign Co-Sign Detail Recorded Client Recorded Date Recorded By Document 06/30/21 10:04 [email or web address] [id number] 06/30/21 10:13 06/30/21 10:04 Wound Center Nurse 1 #1- L FOOT TRANSMET POST OP -Current Size (cm) - Length 0.6 -Current Size (cm) - Width 0.2 -Current Size (cm) - Depth 0.1 -Total Square Cm 0.12 -Photo Taken No -Exudate Amt None Present -Wound Margin Thickened -Granulation Amt Small (1-33%) -Granulation Quality [place] -Necrosis Amt Small (1-33%) -Necrotic Tissue Type Adherent Slough -Structure Exposed N/A -Texture (Margy-wound Skin Appearance) Rash -Moisture (Margy-wound Skin Appearance) Dry/Scaly -Color (Margy-wound Skin Appearance) Assessed -Temperature (Margy-wound Skin No Abnormality Appearance) (Pt Warm) -Tenderness on Palpation (Margy-wound No Skin Appearance) -Ulcer Cleansing Wound Cleanser -Foul Odor after Cleansing No -Anesthetic Used 4% Lidocaine Solution Left Calf (cm) 31.6 Left Ankle (cm) 21.5 WC - Nurse 2 - General Ulcer CM Notes Start: 06/30/21 10:03 Freq: Status: Active Protocol: Activity Type Activity Date Activity User E-Sign Co-Sign Detail Recorded Client Recorded Date Recorded By Document 06/30/21 10:20 [email or web address] [id number] 06/30/21 10:24 DIONI 06/30/21 10:20 Wound Center Nurse 2 #1- L FOOT TRANSMET POST OP -Time 10:20 -Correct Patient Yes -Correct Side, Site, Position Yes -Correct Procedure Yes -Procedure Performed Yes -Type of Procedure Debridement -Clinical Debridement Subcutaneous -Tissue Removed Subcutaneous -Post Debridement (cm) - Length 1.4 -Post Debridement (cm) - Width 0.2 -Post Debridement (cm) - Depth 0.3 -Total Square (Post) (cm) 0.28 -Area of Debridement (cm) - Length 1.4 -Area of Debridement (cm) - Width 0.2 -Total Square (Area) (cm) 0.28 -Tunneling No -Undermining/Tunneling No -Circular Undermining No -Wound/Ulcer Outcome Not Healed -Ulcer Cleansing Rinsed/ Irrigated with Saline -Foul Odor after Cleansing No -Bioengineered Tissue Yes -Type of Bioengineered Tissue Epifix 18mm Disc -Expiration Date 02/27/26 -Product Lot Number [id number] -Percent Used 100 -Lot number of Saline Used [id number] -Bleeding Controlled with Pressure -Offloading No -Treatment Response Procedure Tolerated Well -Debridement - Subq, 1st 20sq cm No -Apply Skin Sub - 1st 25 sq cm - Feet 1 -Epifix 18mm Disc 3 Pain Scale: 0-10 Numeric Is Patient Pain Free? Yes Assessment/Plan Assessment/Plan (1) Non-pressure chronic ulcer of other part of left foot with fat layer exposed: CODE(S): L97.522 - Non-pressure chronic ulcer of other part of left foot with fat layer exposed (2) Localized edema: CODE(S): R60.0 - Localized edema (3) Delayed wound healing: CODE(S): T14.8XXD - Other injury of unspecified body region, subsequent encounter (4) Deep venous thrombosis of distal end of left lower extremity: CODE(S): I82.4Z2 - Acute embolism and thrombosis of unspecified deep veins of left distal lower extremity (5) Type 2 diabetes mellitus with diabetic polyneuropathy: CODE(S): E11.42 - Type 2 diabetes mellitus with diabetic polyneuropathy QUALIFIERS: Diabetes mellitus group home insulin use: unspecified group home insulin use status Qualified Code(s): E11.42 - Type 2 diabetes mellitus with diabetic polyneuropathy (6) Blister (nonthermal), right foot, initial encounter: CODE(S): S90.821A - Blister (nonthermal), right foot, initial encounter (7) Difficulty in walking, not elsewhere classified: CODE(S): R26.2 - Difficulty in walking, not elsewhere classified PLAN: I reviewed and discussed her case today. The following work up and care recommendations were made: Dressing: To leave gauze dressing to the left dorsal lateral foot check the underlying epi fix, wound veil, and Steri-Strips that was applied today. Advanced wound healing: Verbal consent was obtained to apply epi fix. This was applied according standard protocol and was moistened with saline. This was further secured in place with a wound veil and Steri-Strips. She was advised to keep this clean, dry, and intact until follow-up. The benefits and anticipated healing and management were reviewed. 100% of the product was utilized. Offload: To remain nonweightbearing to left lower extremity. She uses assistive device. She also hangs her heel over stacked pillows while in bed and has an egg crate offloading boot for additional protection. I recommend durable medical equipment to aid in the offloading process. She has a health condition that causes significant difficulty with moving around the home and unwanted movement will compromise her amputation healing site. She is unable to do activities of daily living even with the help of a cane crutch or walker. She is being treated by a physician for this condition and requires a wheelchair. She can use this equipment within the home. It is noted she is unable to use a manual wheelchair or manually adjust a hospital bed. This is medically necessary for wound healing, limb salvage, and to avoid return of limb threatening infections in the wound development. Orders were provided for lift chair, electric hospital bed, and electric wheelchair (power) today ([id number]). Authorization process will be initiated. This is medically necessary. Vascular: She had arterial Doppler performed on 02-05-21 in which there was no stenosis noted. She has triphasic waveforms. She was seen by vascular specialist, Dr. Hugo while in the transitional care unit and additional intervention is not recommended. Edema: To wear Tubigrip which was dispensed previously. To elevate at rest. It is also noted she had a recent deep venous thrombosis to the left calf which she was treated with therapeutic anticoagulation medication. She has completed this course. Infection: She had prior course of infection treated surgically medically. She also was reassured no local signs of infection are noted today. She is no longer on antibiotics and does not have any local or systemic signs of illness. Pain: Controlled likely secondary to her neuropathy. Host factors: Her comorbidities impair her healing process. She has delays in healing. I recommend continue nutritional supplementation to optimize healing. Labs: Reviewed from 05-10-21 without leukocytosis or other gross abnormalities. Prior A1c 6.7% Imaging: Left foot x-ray performed on 02-19-21 with subsequent transmetatarsal amputation without soft tissue emphysema or foreign body or acute other injuries or Charcot event. Deep venous thrombosis management: She is no longer taking Eliquis secondary to nosebleed. She relates she had an updated scan which did not demonstrate continued clotting. She does not have clinical signs of acute blood clot. Therapy: I recommend continue outpatient therapy to prevent deconditioning and also to aid with wound care requirements. I answered all the patient's questions. To return to the wound healing center in 1 week or call sooner if any questions or concerns.
[2021-07-07 10:14] VITALS: BP 171/82; PULSE 69; RESP 16; TEMP 36.1; BMI 28.6
--- NOTE | 2021-07-07 11:53 | PN.PCM_ITS ---
History of Present Illness Date of Service: 07/07/21 Chief Complaint: Left foot ulcer History of Wound: This 66-year-old diabetic female with other comorbidities including recent DVT, anemia, neuropathy, and others was seen for a left foot ulcer. She has a complex history of infection with foot surgeries. Her last foot surgery was performed at [facility] on 02-25-21 which included a transmetatarsal amputation with rotational flap. She did have some subsequent flap compromise with delayed wound healing. Now she is in assisted living and is scheduled to move next week with her . She has been offloading as advised. She denies fever, chill, nausea, vomiting, redness, odor. She has been tolerating advanced wound product, epifix application as well. Progress of Wound: Improving Objective Data Objective Data Vital Signs: Vital Signs Temp Pulse Resp BP 96.9 F L 69 16 171/82 H 07/07/21 10:14 07/07/21 10:14 07/07/21 10:14 07/07/21 10:14 Oxygen Delivery Method Room Air Weight: 70.307 kg Body Mass Index (BMI) 28.6 Physical Exam Extremity Extremity Narrative: No calf tenderness Diminished pulses Muscle wasting noted Left transmetatarsal amputation No pain with ulcer manipulation Skin Skin Narrative: no purulence, no streaking, no odor, no infection. Skin is atrophic and hairless. Plantar aspect remains fully healed. Dorsal lateral stump wound site is stable with granular base. There is no deep tissue exposure. The adjacent skin does not have bogginess or fluctuance on palpation. Healed prior bulla site with full epithelialization. No necrosis. Neuro Neuro Narrative: lack of normal epicritic sensation via light touch is consistent with neuropathy status Debridement Note Debridement Note Wound debrided: left lateral foot Wound Grade/Stage: 1 Type of Debridement: Excisional debridement Anesthesia Used: 4% Lidocaine Solution Depth: in the subcutaneous layer Percentage of wound debrided: 100 Instrument Used: #15 blade Tissue Removed: fibrous, devitalized subcutaneous, biofilm, slough Severity: Fat Layer Exposed Amount of bleeding with debridement: Mild Bleeding Controlled with: Pressure Patient tolerated procedure: Patient tolerated procedure well Post-Debridement Measurements and Additional Note: Post-Debridement Measurements/Treatment LEO - Nurse 1 - General Ulcer Assessment Start: 06/30/21 10:03 Freq: Status: Active Protocol: [place] Activity Type Activity Date Activity User E-Sign Co-Sign Detail Recorded Client Recorded Date Recorded By Document 06/30/21 10:04 DL [id number] 06/30/21 10:13 DL Document 07/07/21 10:14 [facility] [id number] 07/07/21 10:24 [facility] 06/30/21 07/07/21 10:04 10:14 - Today's Visit Information Type of service Follow-up Visit Follow-up Visit (Physician/WIND OPERATIONS SUPERVISOR (Physician/WIND OPERATIONS SUPERVISOR ) ) Arrival Mode Wheelchair Wheelchair Transfer Assistance None None Accompanied by Patient Identification Verified (Name & Yes Yes ) Patient Requires Transmission-Based No No Precautions Height and Weight Body Mass Index (BMI) 28.6 28.6 BMI Classification Overweight Overweight Vital Signs Temperature (97.8 F-99.1 F) 97.9 F 96.9 F L Temperature Source Temporal Temporal Pulse Rate (60-100) 66 69 Pulse Location Monitor Monitor Respiratory Rate (12-18) 18 16 Respiratory rate source Observation Observation Oxygen Delivery Method Room Air Blood Pressure (90/60-120/80) 189/92 H 171/82 H Blood Pressure Mean (mm Hg) 124 111 Source Monitor Monitor Position Sitting Blood Pressure Location Left Arm History Since Last Visit- (Skip if this is Patient's initial visit) Have you changed medications since your No last visit? Any new allergies or adverse reactions No Had a fall/change in ADL's that may No increase risk of falls Signs or symptoms of abuse and/or No neglect since last visit Have you been in the hospital since your No last visit? Has dressing in place as prescribed Yes Has compression in place as prescribed N/A Has offloadiing in place as prescribed Yes Experienced any changes in pain level or No management Left Footwear Wedge Shoe Right Footwear Regular Shoe Pain Scale: 0-10 Numeric Is Patient Pain Free? Yes Yes - Nurse 1 - General Ulcer Measurement Start: 06/30/21 10:03 Freq: Status: Active Protocol: Activity Type Activity Date Activity User E-Sign Co-Sign Detail Recorded Client Recorded Date Recorded By Document 06/30/21 10:04 DL [id number] 06/30/21 10:13 DL Document 07/07/21 10:14 [facility] [id number] 07/07/21 10:24 [facility] 06/30/21 07/07/21 10:04 10:14 Wound Center Nurse 1 #1- L FOOT TRANSMET POST OP -Combined with other wound No -Current Size (cm) - Length 0.6 0.1 -Current Size (cm) - Width 0.2 0.1 -Current Size (cm) - Depth 0.1 0.1 -Total Square Cm 0.12 0.01 -Photo Taken No No -Epithelialization Large 67-100% -Tunneling No -Undermining/Tunneling No -Circular Undermining No -Exudate Amt None Present None Present -Wound Margin Thickened -Granulation Amt Small (1-33%) -Granulation Quality Graingers -Slough/Fibrin Yes -Necrosis Amt Small (1-33%) Small (1-33%) -Necrotic Tissue Type Adherent Slough Eschar -Structure Exposed N/A -Texture (Margy-wound Skin Appearance) Rash Assessed, Scarring -Moisture (Margy-wound Skin Appearance) Dry/Scaly No Abnormality -Color (Margy-wound Skin Appearance) Assessed Assessed -Temperature (Margy-wound Skin No Abnormality No Abnormality Appearance) (Pt Warm) (Pt Warm) -Tenderness on Palpation (Margy-wound No Skin Appearance) -Ulcer Cleansing Wound Cleanser SOAPY WATER -Foul Odor after Cleansing No No -Anesthetic Used 4% Lidocaine 5% Lidocaine Solution Gel Lower Limb Edema Present Yes Left Calf (cm) 31.6 32.1 Left Ankle (cm) 21.5 21.9 - Nurse 2 - General Ulcer CM Notes Start: 06/30/21 10:03 Freq: Status: Active Protocol: Activity Type Activity Date Activity User E-Sign Co-Sign Detail Recorded Client Recorded Date Recorded By Document 06/30/21 10:20 [id number] 06/30/21 10:24 Document 07/07/21 10:37 [id number] 07/07/21 10:40 06/30/21 07/07/21 10:20 10:37 Wound Center Nurse 2 #1- L FOOT TRANSMET POST OP -Time 10:20 10:39 -Correct Patient Yes Yes -Correct Side, Site, Position Yes Yes -Correct Procedure Yes Yes -Procedure Performed Yes Yes -Type of Procedure Debridement Debridement -Clinical Debridement Subcutaneous Subcutaneous -Tissue Removed Subcutaneous Subcutaneous -Post Debridement (cm) - Length 1.4 0.8 -Post Debridement (cm) - Width 0.2 0.1 -Post Debridement (cm) - Depth 0.3 0.2 -Total Square (Post) (cm) 0.28 0.08 -Area of Debridement (cm) - Length 1.4 0.8 -Area of Debridement (cm) - Width 0.2 0.1 -Total Square (Area) (cm) 0.28 0.08 -Tunneling No No -Undermining/Tunneling No No -Circular Undermining No -Wound/Ulcer Outcome Not Healed -Ulcer Cleansing Rinsed/ Rinsed/ Irrigated with Irrigated with Saline Saline -Foul Odor after Cleansing No No -Bioengineered Tissue Yes Yes -Type of Bioengineered Tissue Epifix 18mm Epifix 18mm Disc Disc -Expiration Date 02/27/26 02/27/25 -Product Lot Number [id number] -Percent Used 100 100 -Lot number of Saline Used [id number] -Bleeding Controlled with Pressure Pressure -Offloading No No -Treatment Response Procedure Procedure Tolerated Well Tolerated Well -Debridement - Subq, 1st 20sq cm No No -Apply Skin Sub - 1st 25 sq cm - Feet 1 1 -Epifix 18mm Disc 3 3 Pain Scale: 0-10 Numeric Is Patient Pain Free? Yes Yes - Nurse 3 - General Ulcer D/C NN Start: 06/30/21 10:03 Freq: Status: Active Protocol: Activity Type Activity Date Activity User E-Sign Co-Sign Detail Recorded Client Recorded Date Recorded By Document 07/07/21 10:53 [facility] [id number] 07/07/21 10:54 [facility] 07/07/21 10:53 Wound Care Nurse 3 #1- L FOOT TRANSMET POST OP -Other Dressing EPIFIX -Primary Dressing Covered/Secured with Dry Gauze & Roll Gauze, Secured with Tape Left -Tubular Bandage Single Layer -Size of Tubigrip Used Size D -Size D ($) 1 Treatment Response Procedure Tolerated Well Pain Scale: 0-10 Numeric Is Patient Pain Free? Yes - Visit Discharge Discharge Condition Stable Ambulatory Status Wheelchair Transportation Private Auto Accompanied by Other ASSISTED LIVING Assessment/Plan Assessment/Plan (1) Non-pressure chronic ulcer of other part of left foot with fat layer exposed: CODE(S): L97.522 - Non-pressure chronic ulcer of other part of left foot with fat layer exposed (2) Localized edema: CODE(S): R60.0 - Localized edema (3) Delayed wound healing: CODE(S): T14.8XXD - Other injury of unspecified body region, subsequent encounter (4) Deep venous thrombosis of distal end of left lower extremity: CODE(S): I82.4Z2 - Acute embolism and thrombosis of unspecified deep veins of left distal lower extremity (5) Type 2 diabetes mellitus with diabetic polyneuropathy: CODE(S): E11.42 - Type 2 diabetes mellitus with diabetic polyneuropathy QUALIFIERS: Diabetes mellitus terminal block assembler insulin use: unspecified mcfp insulin use status Qualified Code(s): E11.42 - Type 2 diabetes mellitus with diabetic polyneuropathy (6) Blister (nonthermal), right foot, initial encounter: CODE(S): S90.821A - Blister (nonthermal), right foot, initial encounter (7) Difficulty in walking, not elsewhere classified: CODE(S): R26.2 - Difficulty in walking, not elsewhere classified PLAN: I reviewed and discussed her case today. The following work up and care recommendations were made: Dressing: To leave gauze dressing to the left dorsal lateral foot check the underlying epi fix, wound veil, and Steri-Strips that was applied today. Advanced wound healing: Verbal consent was obtained to apply epi fix. This was applied according standard protocol and was moistened with saline. This was further secured in place with a wound veil and Steri-Strips. She was advised to keep this clean, dry, and intact until follow-up. The benefits and anticipated healing and management were reviewed. 100% of the product was utilized. Offload: To remain nonweightbearing to left lower extremity. She uses assistive device. She also hangs her heel over stacked pillows while in bed and has an egg crate offloading boot for additional protection. I recommend durable medical equipment to aid in the offloading process. She has a health condition that causes significant difficulty with moving around the home and unwanted movement will compromise her amputation healing site. She is unable to do activities of daily living even with the help of a cane crutch or walker. She is being treated by a physician for this condition and requires a wheelchair. She can use this equipment within the home. It is noted she is unable to use a manual wheelchair or manually adjust a hospital bed. This is medically necessary for wound healing, limb salvage, and to avoid return of limb threatening infections in the wound development. Orders were provided for lift chair, electric hospital bed, and electric wheelchair (power) today ([id number]). Authorization was obtained and she obtained this device yesterday. This is medically necessary and will help her further offload. Vascular: She had arterial Doppler performed on 02-05-21 in which there was no stenosis noted. She has triphasic waveforms. She was seen by vascular specialist, Dr. Hugo while in the transitional care unit and additional intervention is not recommended. Edema: To wear Tubigrip which was dispensed previously. To elevate at rest. It is also noted she had a recent deep venous thrombosis to the left calf which she was treated with therapeutic anticoagulation medication. She has completed this course. Infection: She had prior course of infection treated surgically medically. She also was reassured no local signs of infection are noted today. She is no longer on antibiotics and does not have any local or systemic signs of illness. Pain: Controlled likely secondary to her neuropathy. Host factors: Her comorbidities impair her healing process. She has delays in healing. I recommend continue nutritional supplementation to optimize healing. We previously discussed her calculate her protein intake because she had questions about how much is appropriate. She forgot to keep a log and I advised her to do so. I will then help her calculate her intake needed based off of her kidney function, delayed wound healing status, and BMI. Labs: Reviewed from 05-10-21 without leukocytosis or other gross abnormalities. Prior A1c 6.7% Imaging: Left foot x-ray performed on 02-19-21 with subsequent transmetatarsal amputation without soft tissue emphysema or foreign body or acute other injuries or Charcot event. Deep venous thrombosis management: She is no longer taking Eliquis secondary to nosebleed. She relates she had an updated scan which did not demonstrate continued clotting. She does not have clinical signs of acute blood clot. Therapy: I recommend continue outpatient therapy to prevent deconditioning and also to aid with wound care requirements. It is okay for her to perform ankle range of motion. I do not recommend walking therapy at this time due to her open wound status. I answered all the patient's questions. To return to the wound healing center in 1 week or call sooner if any questions or concerns. Note: [employer] speech recognition bike mechanic software was used to create portions of this document. Sound-alike and misspelled words, as well as other bike mechanic errors may be contained in the documentation.
[2021-07-14 10:13] VITALS: BP 129/69; PULSE 71; RESP 18; BMI 28.6
--- NOTE | 2021-07-14 10:53 | PN.PCM_ITS ---
History of Present Illness Date of Service: 07/14/21 Chief Complaint: Left foot ulcer History of Wound: This 66-year-old diabetic female with other comorbidities including recent DVT, anemia, neuropathy, and others was seen for a left foot ulcer. She has a complex history of infection with foot surgeries. Her last foot surgery was performed at [facility] on 02-25-21 which included a transmetatarsal amputation with rotational flap. She did have some subsequent flap compromise with delayed wound healing. She has been offloading as advised. She denies fever, chill, nausea, vomiting, redness, odor. She has been tolerating advanced wound product, epifix application as well. She got an updated power chair. She is interested in resuming physical and occupational therapy in the outpatient setting and is now able to attend due to her power chair set up in her return to driving activities. She also has calculated protein intake and would like to confirm she is spacing out intake properly and if she is consuming enough. Progress of Wound: Improving Objective Data Objective Data Vital Signs: Vital Signs Temp Pulse Resp BP 96.9 F L 71 18 129/69 H 07/07/21 10:14 07/14/21 10:13 07/14/21 10:13 07/14/21 10:13 Oxygen Delivery Method Room Air Weight: 70.307 kg Body Mass Index (BMI) 28.6 Physical Exam Extremity Extremity Narrative: No calf tenderness Diminished pulses Muscle wasting noted Left transmetatarsal amputation No pain with ulcer manipulation Skin Skin Narrative: no purulence, no streaking, no odor, no infection. Skin is atrophic and hairless. Plantar aspect remains fully healed. Dorsal lateral stump wound site is stable with granular base. There is no deep tissue exposure. The adjacent skin does not have bogginess or fluctuance on palpation. Healed prior bulla site with full epithelialization. No necrosis. Neuro Neuro Narrative: lack of normal epicritic sensation via light touch is consistent with neuropathy status Debridement Note Debridement Note Wound debrided: dorsal lateral left foot Wound Grade/Stage: 1 Type of Debridement: Excisional debridement Anesthesia Used: 4% Lidocaine Solution Depth: in the subcutaneous layer Percentage of wound debrided: 100 Instrument Used: #15 blade Tissue Removed: fibrous, devitalized subcutaneous, biofilm, slough Severity: Fat Layer Exposed Amount of bleeding with debridement: Mild Bleeding Controlled with: Pressure Patient tolerated procedure: Patient tolerated procedure well Post-Debridement Measurements and Additional Note: Post-Debridement Measurements/Treatment WC - Nurse 1 - General Ulcer Assessment Start: 06/30/21 10:03 Freq: Status: Active Protocol: [place] Activity Type Activity Date Activity User E-Sign Co-Sign Detail Recorded Client Recorded Date Recorded By Document 06/30/21 10:04 DL [id number] 06/30/21 10:13 DL Document 07/07/21 10:14 BMF [id number] 07/07/21 10:24 BMF Document 07/14/21 10:13 RB [id number] 07/14/21 10:21 RB 06/30/21 07/07/21 07/14/21 10:04 10:14 10:13 WC - Today's Visit Information Type of service Follow-up Visit Follow-up Visit Follow-up Visit (Physician/PLASTICS PLATER (Physician/PLASTICS PLATER (Physician/PLASTICS PLATER ) ) ) Arrival Mode Wheelchair Wheelchair Wheelchair Transfer Assistance None None None Accompanied by Patient Identification Verified (Name & Yes Yes Yes ) Patient Requires Transmission-Based No No No Precautions Height and Weight Body Mass Index (BMI) 28.6 28.6 28.6 BMI Classification Overweight Overweight Overweight Vital Signs Temperature (97.8 F-99.1 F) 97.9 F 96.9 F L Temperature Source Temporal Temporal Temporal Pulse Rate (60-100) 66 69 71 Pulse Location Monitor Monitor Monitor Respiratory Rate (12-18) 18 16 18 Respiratory rate source Observation Observation Observation Oxygen Delivery Method Room Air Blood Pressure (90/60-120/80) 189/92 H 171/82 H 129/69 H Blood Pressure Mean (mm Hg) 124 111 89 Source Monitor Monitor Monitor Position Sitting Sitting Blood Pressure Location Left Arm Right Arm History Since Last Visit- (Skip if this is Patient's initial visit) Have you changed medications since your No No last visit? Any new allergies or adverse reactions No No Had a fall/change in ADL's that may No No increase risk of falls Signs or symptoms of abuse and/or No No neglect since last visit Have you been in the hospital since your No last visit? Has dressing in place as prescribed Yes Yes Has compression in place as prescribed N/A No Has offloadiing in place as prescribed Yes No Experienced any changes in pain level or No No management Left Footwear Wedge Shoe Regular Shoe Right Footwear Regular Shoe Regular Shoe Pain Scale: 0-10 Numeric Is Patient Pain Free? Yes Yes Yes WC - Nurse 1 - General Ulcer Measurement Start: 06/30/21 10:03 Freq: Status: Active Protocol: Activity Type Activity Date Activity User E-Sign Co-Sign Detail Recorded Client Recorded Date Recorded By Document 06/30/21 10:04 DL [id number] 06/30/21 10:13 DL Document 07/07/21 10:14 BMF [id number] 07/07/21 10:24 BMF Document 07/14/21 10:13 RB [id number] 07/14/21 10:21 RB 06/30/21 07/07/21 07/14/21 10:04 10:14 10:13 Wound Center Nurse 1 #1- L FOOT TRANSMET POST OP -Combined with other wound No No -Current Size (cm) - Length 0.6 0.1 0.1 -Current Size (cm) - Width 0.2 0.1 0.1 -Current Size (cm) - Depth 0.1 0.1 0.1 -Total Square Cm 0.12 0.01 0.01 -Photo Taken No No -Epithelialization Large 67-100% -Tunneling No No -Undermining/Tunneling No No -Circular Undermining No No -Exudate Amt None Present None Present Medium -Exudate Type Serosanguineous -Wound Margin Thickened Distinct, Outline Attached -Granulation Amt Small (1-33%) Medium (34-66%) -Granulation Quality [place] -Slough/Fibrin Yes Yes -Necrosis Amt Small (1-33%) Small (1-33%) Small (1-33%) -Necrotic Tissue Type Adherent Slough Eschar Adherent Slough -Structure Exposed N/A N/A -Texture (Margy-wound Skin Appearance) Rash Assessed, Assessed, Scarring Scarring -Moisture (Margy-wound Skin Appearance) Dry/Scaly No Abnormality Assessed -Color (Margy-wound Skin Appearance) Assessed Assessed Assessed -Temperature (Margy-wound Skin No Abnormality No Abnormality No Abnormality Appearance) (Pt Warm) (Pt Warm) (Pt Warm) -Tenderness on Palpation (Margy-wound No No Skin Appearance) -Ulcer Cleansing Wound Cleanser SOAPY WATER -Foul Odor after Cleansing No No No -Anesthetic Used 4% Lidocaine 5% Lidocaine 5% Lidocaine Solution Gel Gel Lower Limb Edema Present Yes Left Calf (cm) 31.6 32.1 Left Ankle (cm) 21.5 21.9 WC - Nurse 2 - General Ulcer CM Notes Start: 06/30/21 10:03 Freq: Status: Active Protocol: Activity Type Activity Date Activity User E-Sign Co-Sign Detail Recorded Client Recorded Date Recorded By Document 06/30/21 10:20 [id number] 06/30/21 10:24 Document 07/07/21 10:37 [id number] 07/07/21 10:40 Document 07/14/21 10:32 [id number] 07/14/21 10:44 JF 06/30/21 07/07/21 07/14/21 10:20 10:37 10:32 Wound Center Nurse 2 #1- L FOOT TRANSMET POST OP -Time 10:20 10:39 10:32 -Correct Patient Yes Yes Yes -Correct Side, Site, Position Yes Yes Yes -Correct Procedure Yes Yes Yes -Procedure Performed Yes Yes Yes -Type of Procedure Debridement Debridement Debridement -Clinical Debridement Subcutaneous Subcutaneous Subcutaneous -Tissue Removed Subcutaneous Subcutaneous Subcutaneous -Post Debridement (cm) - Length 1.4 0.8 0.9 -Post Debridement (cm) - Width 0.2 0.1 0.2 -Post Debridement (cm) - Depth 0.3 0.2 0.2 -Total Square (Post) (cm) 0.28 0.08 0.18 -Area of Debridement (cm) - Length 1.4 0.8 0.9 -Area of Debridement (cm) - Width 0.2 0.1 0.2 -Total Square (Area) (cm) 0.28 0.08 0.18 -Tunneling No No No -Undermining/Tunneling No No No -Circular Undermining No No -Wound/Ulcer Outcome Not Healed Not Healed -Ulcer Cleansing Rinsed/ Rinsed/ Rinsed/ Irrigated with Irrigated with Irrigated with Saline Saline Saline -Foul Odor after Cleansing No No No -Bioengineered Tissue Yes Yes Yes -Type of Bioengineered Tissue Epifix 18mm Epifix 18mm Epifix 18mm Disc Disc Disc -Expiration Date 02/27/26 02/27/25 02/27/26 -Product Lot Number [id number] -Percent Used 100 100 100 -Lot number of Saline Used [id number] -Bleeding Controlled with Pressure Pressure Pressure -Offloading No No No -Treatment Response Procedure Procedure Procedure Tolerated Well Tolerated Well Tolerated Well -Debridement - Subq, 1st 20sq cm No No No -Apply Skin Sub - 1st 25 sq cm - Feet 1 1 1 -Epifix 18mm Disc 3 3 3 Pain Scale: 0-10 Numeric Is Patient Pain Free? Yes Yes Yes - Nurse 3 - General Ulcer D/C NN Start: 06/30/21 10:03 Freq: Status: Active Protocol: Activity Type Activity Date Activity User E-Sign Co-Sign Detail Recorded Client Recorded Date Recorded By Document 07/07/21 10:53 [facility] [id number] 07/07/21 10:54 [facility] 07/07/21 10:53 Wound Care Nurse 3 #1- L FOOT TRANSMET POST OP -Other Dressing EPIFIX -Primary Dressing Covered/Secured with Dry Gauze & Roll Gauze, Secured with Tape Left -Tubular Bandage Single Layer -Size of Tubigrip Used Size D -Size D ($) 1 Treatment Response Procedure Tolerated Well Pain Scale: 0-10 Numeric Is Patient Pain Free? Yes - Visit Discharge Discharge Condition Stable Ambulatory Status Wheelchair Transportation Private Auto Accompanied by Other ASSISTED LIVING Assessment/Plan Assessment/Plan (1) Non-pressure chronic ulcer of other part of left foot with fat layer exposed: CODE(S): L97.522 - Non-pressure chronic ulcer of other part of left foot with fat layer exposed (2) Localized edema: CODE(S): R60.0 - Localized edema (3) Delayed wound healing: CODE(S): T14.8XXD - Other injury of unspecified body region, subsequent encounter (4) Deep venous thrombosis of distal end of left lower extremity: CODE(S): I82.4Z2 - Acute embolism and thrombosis of unspecified deep veins of left distal lower extremity (5) Type 2 diabetes mellitus with diabetic polyneuropathy: CODE(S): E11.42 - Type 2 diabetes mellitus with diabetic polyneuropathy QUALIFIERS: Diabetes mellitus longterm insulin use: unspecified longterm insulin use status Qualified Code(s): E11.42 - Type 2 diabetes mellitus with diabetic polyneuropathy (6) Difficulty in walking, not elsewhere classified: CODE(S): R26.2 - Difficulty in walking, not elsewhere classified (7) Malnutrition: CODE(S): E46 - Unspecified protein-calorie malnutrition PLAN: I reviewed and discussed her case today. The following work up and care recommendations were made: Dressing: To leave gauze dressing to the left dorsal lateral foot check the underlying epi fix, wound veil, and Steri-Strips that was applied today. Advanced wound healing: Verbal consent was obtained to apply epi fix. This was applied according standard protocol and was moistened with saline. This was further secured in place with a wound veil and Steri-Strips. She was advised to keep this clean, dry, and intact until follow-up. The benefits and anticipated healing and management were reviewed. 100% of the product was utilized. Offload: To remain nonweightbearing to left lower extremity. She uses assistive device. She also hangs her heel over stacked pillows while in bed and has an egg crate offloading boot for additional protection. I recommend durable medical equipment to aid in the offloading process. She has a health condition that causes significant difficulty with moving around the home and unwanted movement will compromise her amputation healing site. She is unable to do activities of daily living even with the help of a cane crutch or walker. She is being treated by a physician for this condition and requires a wheelchair. She is amendable to go to physical and occupational therapy for deconditioning and for ambulation assistance. She is able to go to [facility] and a referral was provided today. Vascular: She had arterial Doppler performed on 02-05-21 in which there was no s tenosis noted. She has triphasic waveforms. She was seen by vascular specialist, Dr. Hugo while in the transitional care unit and additional intervention is not recommended. Edema: To wear Tubigrip which was dispensed previously. To elevate at rest. It is also noted she had a recent deep venous thrombosis to the left calf which she was treated with therapeutic anticoagulation medication. She has completed this course. Infection: She had prior course of infection treated surgically medically. She also was reassured no local signs of infection are noted today. She is no longer on antibiotics and does not have any local or systemic signs of illness. Pain: Controlled likely secondary to her neuropathy. Host factors: Her comorbidities impair her healing process. She has delays in healing. I recommend continue nutritional supplementation to optimize healing. We previously discussed her calculate her protein intake because she had questions about how much is appropriate. She forgot to keep a log and I advised her to do so. I will then help her calculate her intake needed based off of her kidney function, delayed wound healing status, and BMI. Labs: Reviewed from 05-10-21 without leukocytosis or other gross abnormalities. Prior A1c 6.7% Imaging: Left foot x-ray performed on 02-19-21 with subsequent transmetatarsal amputation without soft tissue emphysema or foreign body or acute other injuries or Charcot event. Deep venous thrombosis management: She is no longer taking Eliquis secondary to nosebleed. She relates she had an updated scan which did not demonstrate continued clotting. She does not have clinical signs of acute blood clot. Nutrition: To continue to eat a well-balanced whole food based diet. Her protein intake was calculated with the following per day as about 70 - 80 g. Based on with her body weight (62.6 kg), the following recommendation was made: protein intake between 62 and 75 g to optimize wound healing. It is also noted she does not have any significant kidney impairment. She appears to be addressing this appropriately at this time and spaces the intake between all three meals and nutritional drink snacks. I answered all the patient's questions. To return to the wound healing center in 1 week or call sooner if any questions or concerns. Note: [employer] speech recognition engraver pantograph software was used to create portions of this document. Sound-alike and misspelled words, as well as other engraver pantograph errors may be contained in the documentation. 20 minutes was spent on this encounter. This included face to face and non face to face care including preparing for the visit, reviewing the history, performing the exam, counseling and providing education to the patient, family, or caregiver, ordering medications/test/ procedures if indicated as documented, communicating with other healthcare providers, documenting information in the medical record, interpreting / sharing this information when indicated as documented, and care coordination.
[2021-07-28 10:17] VITALS: BP 143/72; PULSE 62; RESP 18; TEMP 36.4; BMI 28.6
--- NOTE | 2021-07-28 11:40 | PCM.WC.PN ---
History of Present Illness Date of Service: 07/28/21 Chief Complaint: Left foot ulcer History of Wound: This 66-year-old diabetic female with other comorbidities including recent DVT, anemia, neuropathy, and others was seen for a left foot ulcer. She has a complex history of infection with foot surgeries. Her last foot surgery was performed at [facility] on 02-25-21 which included a transmetatarsal amputation with rotational flap. She did have some subsequent flap compromise with delayed wound healing. She has been offloading as advised. She denies fever, chill, nausea, vomiting, redness, odor. She is trying to resume physical and occupational therapy in the outpatient setting. Progress of Wound: Improving Objective Data Objective Data Vital Signs: Vital Signs Temp Pulse Resp BP 97.6 F L 62 18 143/72 H 07/28/21 10:17 07/28/21 10:17 07/28/21 10:17 07/28/21 10:17 Oxygen Delivery Method Room Air Weight: 70.307 kg Body Mass Index (BMI) 28.6 Physical Exam Extremity Extremity Narrative: No calf tenderness Diminished pulses Muscle wasting noted Left transmetatarsal amputation No pain with ulcer manipulation Skin Skin Narrative: no purulence, no streaking, no odor, no infection. Skin is atrophic and hairless. Plantar aspect remains fully healed. Dorsal lateral stump wound site is stable with granular base. There is no deep tissue exposure. The adjacent skin does not have bogginess or fluctuance on palpation. Neuro Neuro Narrative: lack of normal epicritic sensation via light touch is consistent with neuropathy status Debridement Note Debridement Note Wound debrided: left foot Wound Grade/Stage: 1 Type of Debridement: Excisional debridement Anesthesia Used: 4% Lidocaine Solution Depth: in the subcutaneous layer Percentage of wound debrided: 100 Instrument Used: #15 blade Tissue Removed: fibrous, devitalized subcutaneous, biofilm, slough Severity: Fat Layer Exposed Amount of bleeding with debridement: Mild Bleeding Controlled with: Pressure Patient tolerated procedure: Patient tolerated procedure well Post-Debridement Measurements and Additional Note: Post-Debridement Measurements/Treatment LEO - Nurse 1 - General Ulcer Assessment Start: 06/30/21 10:03 Freq: Status: Active Protocol: [place] Activity Type Activity Date Activity User E-Sign Co-Sign Detail Recorded Client Recorded Date Recorded By Document 06/30/21 10:04 DL [id number] 06/30/21 10:13 DL Document 07/07/21 10:14 BMF [id number] 07/07/21 10:24 BMF Document 07/14/21 10:13 RB [id number] 07/14/21 10:21 RB Document 07/28/21 10:17 DL [id number] 07/28/21 10:21 DL 06/30/21 07/07/21 07/14/21 10:04 10:14 10:13 WC - Today's Visit Information Type of service Follow-up Visit Follow-up Visit Follow-up Visit (Physician/SPRAY DRIER OPERATOR HELPER (Physician/SPRAY DRIER OPERATOR HELPER (Physician/SPRAY DRIER OPERATOR HELPER ) ) ) Arrival Mode Wheelchair Wheelchair Wheelchair Transfer Assistance None None None Accompanied by Patient Identification Verified (Name & Yes Yes Yes ) Patient Requires Transmission-Based No No No Precautions Height and Weight Body Mass Index (BMI) 28.6 28.6 28.6 BMI Classification Overweight Overweight Overweight Vital Signs Temperature (97.8 F-99.1 F) 97.9 F 96.9 F L Temperature Source Temporal Temporal Temporal Pulse Rate (60-100) 66 69 71 Pulse Location Monitor Monitor Monitor Respiratory Rate (12-18) 18 16 18 Respiratory rate source Observation Observation Observation Oxygen Delivery Method Room Air Blood Pressure (90/60-120/80) 189/92 H 171/82 H 129/69 H Blood Pressure Mean (mm Hg) 124 111 89 Source Monitor Monitor Monitor Position Sitting Sitting Blood Pressure Location Left Arm Right Arm History Since Last Visit- (Skip if this is Patient's initial visit) Have you changed medications since your No No last visit? Any new allergies or adverse reactions No No Had a fall/change in ADL's that may No No increase risk of falls Signs or symptoms of abuse and/or No No neglect since last visit Have you been in the hospital since your No last visit? Has dressing in place as prescribed Yes Yes Has compression in place as prescribed N/A No Has offloadiing in place as prescribed Yes No Experienced any changes in pain level or No No management Left Footwear Wedge Shoe Regular Shoe Right Footwear Regular Shoe Regular Shoe Pain Scale: 0-10 Numeric Is Patient Pain Free? Yes Yes Yes 07/28/21 10:17 WC - Today's Visit Information Type of service Follow-up Visit (Physician/SPRAY DRIER OPERATOR HELPER ) Arrival Mode Ambulatory Transfer Assistance None Accompanied by Patient Identification Verified (Name & Yes ) Patient Requires Transmission-Based No Precautions Height and Weight Body Mass Index (BMI) 28.6 BMI Classification Overweight Vital Signs Temperature (97.8 F-99.1 F) 97.6 F L Temperature Source Temporal Pulse Rate (60-100) 62 Pulse Location Monitor Respiratory Rate (12-18) 18 Respiratory rate source Observation Oxygen Delivery Method Blood Pressure (90/60-120/80) 143/72 H Blood Pressure Mean (mm Hg) 95 Source Monitor Position Blood Pressure Location History Since Last Visit- (Skip if this is Patient's initial visit) Have you changed medications since your No last visit? Any new allergies or adverse reactions No Had a fall/change in ADL's that may No increase risk of falls Signs or symptoms of abuse and/or No neglect since last visit Have you been in the hospital since your No last visit? Has dressing in place as prescribed Yes Has compression in place as prescribed Yes Has offloadiing in place as prescribed Yes Experienced any changes in pain level or No management Left Footwear Right Footwear Pain Scale: 0-10 Numeric Is Patient Pain Free? Yes WC - Nurse 1 - General Ulcer Measurement Start: 06/30/21 10:03 Freq: Status: Active Protocol: Activity Type Activity Date Activity User E-Sign Co-Sign Detail Recorded Client Recorded Date Recorded By Document 06/30/21 10:04 DL [id number] 06/30/21 10:13 DL Document 07/07/21 10:14 [facility] [id number] 07/07/21 10:24 [facility] Document 07/14/21 10:13 RB [id number] 07/14/21 10:21 RB Document 07/28/21 10:17 DL [id number] 07/28/21 10:21 DL 06/30/21 07/07/21 07/14/21 10:04 10:14 10:13 Wound Center Nurse 1 #1- L FOOT TRANSMET POST OP -Combined with other wound No No -Current Size (cm) - Length 0.6 0.1 0.1 -Current Size (cm) - Width 0.2 0.1 0.1 -Current Size (cm) - Depth 0.1 0.1 0.1 -Total Square Cm 0.12 0.01 0.01 -Photo Taken No No -Epithelialization Large 67-100% -Tunneling No No -Undermining/Tunneling No No -Circular Undermining No No -Exudate Amt None Present None Present Medium -Exudate Type Serosanguineous -Wound Margin Thickened Distinct, Outline Attached -Granulation Amt Small (1-33%) Medium (34-66%) -Granulation Quality Souris Souris -Slough/Fibrin Yes Yes -Necrosis Amt Small (1-33%) Small (1-33%) Small (1-33%) -Necrotic Tissue Type Adherent Slough Eschar Adherent Slough -Structure Exposed N/A N/A -Texture (Margy-wound Skin Appearance) Rash Assessed, Assessed, Scarring Scarring -Moisture (Margy-wound Skin Appearance) Dry/Scaly No Abnormality Assessed -Color (Margy-wound Skin Appearance) Assessed Assessed Assessed -Temperature (Margy-wound Skin No Abnormality No Abnormality No Abnormality Appearance) (Pt Warm) (Pt Warm) (Pt Warm) -Tenderness on Palpation (Margy-wound No No Skin Appearance) -Ulcer Cleansing Wound Cleanser SOAPY WATER -Foul Odor after Cleansing No No No -Anesthetic Used 4% Lidocaine 5% Lidocaine 5% Lidocaine Solution Gel Gel Lower Limb Edema Present Yes Left Calf (cm) 31.6 32.1 Left Ankle (cm) 21.5 21.9 07/28/21 10:17 Wound Center Nurse 1 #1- L FOOT TRANSMET POST OP -Combined with other wound -Current Size (cm) - Length 0.1 -Current Size (cm) - Width 0.1 -Current Size (cm) - Depth 0.1 -Total Square Cm 0.01 -Photo Taken No -Epithelialization -Tunneling -Undermining/Tunneling -Circular Undermining -Exudate Amt None Present -Exudate Type -Wound Margin Thickened -Granulation Amt None Present (0 %) -Granulation Quality -Slough/Fibrin -Necrosis Amt Small (1-33%) -Necrotic Tissue Type Eschar -Structure Exposed N/A -Texture (Margy-wound Skin Appearance) Scarring -Moisture (Margy-wound Skin Appearance) No Abnormality -Color (Margy-wound Skin Appearance) No Abnormality -Temperature (Margy-wound Skin No Abnormality Appearance) (Pt Warm) -Tenderness on Palpation (Margy-wound No Skin Appearance) -Ulcer Cleansing Wound Cleanser -Foul Odor after Cleansing No -Anesthetic Used 4% Lidocaine Solution Lower Limb Edema Present Left Calf (cm) 46 Left Ankle (cm) 21.6 WC - Nurse 2 - General Ulcer CM Notes Start: 06/30/21 10:03 Freq: Status: Active Protocol: Activity Type Activity Date Activity User E-Sign Co-Sign Detail Recorded Client Recorded Date Recorded By Document 06/30/21 10:20 [id number] 06/30/21 10:24 Document 07/07/21 10:37 [id number] 07/07/21 10:40 Document 07/14/21 10:32 [id number] 07/14/21 10:44 Document 07/28/21 10:25 [id number] 07/28/21 10:31 JF 06/30/21 07/07/21 07/14/21 10:20 10:37 10:32 Wound Center Nurse 2 #1- L FOOT TRANSMET POST OP -Time 10:20 10:39 10:32 -Correct Patient Yes Yes Yes -Correct Side, Site, Position Yes Yes Yes -Correct Procedure Yes Yes Yes -Procedure Performed Yes Yes Yes -Type of Procedure Debridement Debridement Debridement -Clinical Debridement Subcutaneous Subcutaneous Subcutaneous -Tissue Removed Subcutaneous Subcutaneous Subcutaneous -Post Debridement (cm) - Length 1.4 0.8 0.9 -Post Debridement (cm) - Width 0.2 0.1 0.2 -Post Debridement (cm) - Depth 0.3 0.2 0.2 -Total Square (Post) (cm) 0.28 0.08 0.18 -Area of Debridement (cm) - Length 1.4 0.8 0.9 -Area of Debridement (cm) - Width 0.2 0.1 0.2 -Total Square (Area) (cm) 0.28 0.08 0.18 -Tunneling No No No -Undermining/Tunneling No No No -Circular Undermining No No -Wound/Ulcer Outcome Not Healed Not Healed -Ulcer Cleansing Rinsed/ Rinsed/ Rinsed/ Irrigated with Irrigated with Irrigated with Saline Saline Saline -Foul Odor after Cleansing No No No -Bioengineered Tissue Yes Yes Yes -Type of Bioengineered Tissue Epifix 18mm Epifix 18mm Epifix 18mm Disc Disc Disc -Expiration Date 02/27/26 02/27/25 02/27/26 -Product Lot Number [id number] -Percent Used 100 100 100 -Lot number of Saline Used [id number] -Bleeding Controlled with Pressure Pressure Pressure -Offloading No No No -Treatment Response Procedure Procedure Procedure Tolerated Well Tolerated Well Tolerated Well -Debridement - Subq, 1st 20sq cm No No No -Apply Skin Sub - 1st 25 sq cm - Feet 1 1 1 -Epifix 18mm Disc 3 3 3 Pain Scale: 0-10 Numeric Is Patient Pain Free? Yes Yes Yes 07/28/21 10:25 Wound Center Nurse 2 #1- L FOOT TRANSMET POST OP -Time 10:29 -Correct Patient Yes -Correct Side, Site, Position Yes -Correct Procedure Yes -Procedure Performed Yes -Type of Procedure Debridement -Clinical Debridement Subcutaneous -Tissue Removed Subcutaneous -Post Debridement (cm) - Length 0.8 -Post Debridement (cm) - Width 0.2 -Post Debridement (cm) - Depth 0.2 -Total Square (Post) (cm) 0.16 -Area of Debridement (cm) - Length 0.8 -Area of Debridement (cm) - Width 0.2 -Total Square (Area) (cm) 0.16 -Tunneling No -Undermining/Tunneling No -Circular Undermining No -Wound/Ulcer Outcome Not Healed -Ulcer Cleansing Rinsed/ Irrigated with Saline -Foul Odor after Cleansing No -Bioengineered Tissue No -Type of Bioengineered Tissue -Expiration Date -Product Lot Number -Percent Used -Lot number of Saline Used -Bleeding Controlled with Pressure -Offloading No -Treatment Response Procedure Tolerated Well -Debridement - Subq, 1st 20sq cm Yes -Apply Skin Sub - 1st 25 sq cm - Feet -Epifix 18mm Disc Pain Scale: 0-10 Numeric Is Patient Pain Free? Yes - Nurse 3 - General Ulcer D/C NN Start: 06/30/21 10:03 Freq: Status: Active Protocol: Activity Type Activity Date Activity User E-Sign Co-Sign Detail Recorded Client Recorded Date Recorded By Document 07/07/21 10:53 [facility] [id number] 07/07/21 10:54 [facility] Document 07/14/21 11:00 DL [id number] 07/14/21 11:01 DL 07/07/21 07/14/21 10:53 11:00 Wound Care Nurse 3 #1- L FOOT TRANSMET POST OP -Foul Odor after Cleansing No -Other Dressing EPIFIX epifix -Primary Dressing Covered/Secured with Dry Gauze & Dry Gauze & Roll Gauze, Roll Gauze, Secured with Secured with Tape Tape Left -Tubular Bandage Single Layer -Size of Tubigrip Used Size D -Size D ($) 1 Treatment Response Procedure Procedure Tolerated Well Tolerated Well Pain Scale: 0-10 Numeric Is Patient Pain Free? Yes Yes WC - Visit Discharge Discharge Condition Stable Stable Ambulatory Status Wheelchair Wheelchair Transportation Private Auto Private Auto Accompanied by Facility Type [facility] Other ASSISTED LIVING Orders Sent Yes Assessment/Plan Assessment/Plan (1) Non-pressure chronic ulcer of other part of left foot with fat layer exposed: CODE(S): L97.522 - Non-pressure chronic ulcer of other part of left foot with fat layer exposed (2) Localized edema: CODE(S): R60.0 - Localized edema (3) Delayed wound healing: CODE(S): T14.8XXD - Other injury of unspecified body region, subsequent encounter (4) Deep venous thrombosis of distal end of left lower extremity: CODE(S): I82.4Z2 - Acute embolism and thrombosis of unspecified deep veins of left distal lower extremity (5) Type 2 diabetes mellitus with diabetic polyneuropathy: CODE(S): E11.42 - Type 2 diabetes mellitus with diabetic polyneuropathy QUALIFIERS: Diabetes mellitus termite control technician insulin use: unspecified usp insulin use status Qualified Code(s): E11.42 - Type 2 diabetes mellitus with diabetic polyneuropathy (6) Difficulty in walking, not elsewhere classified: CODE(S): R26.2 - Difficulty in walking, not elsewhere classified (7) Malnutrition: CODE(S): E46 - Unspecified protein-calorie malnutrition PLAN: I reviewed and discussed her case today. The following work up and care recommendations were made: Dressing: to change daily with hydrogel Advanced wound healing: course of epifix has been completed Offload: To remain nonweightbearing to left lower extremity. She uses assistive device. She also hangs her heel over stacked pillows while in bed and has an egg crate offloading boot for additional protection. I recommend durable medical equipment to aid in the offloading process. She has a health condition that causes significant difficulty with moving around the home and unwanted movement will compromise her amputation healing site. She is unable to do activities of daily living even with the help of a cane crutch or walker. She is being treated by a physician for this condition and requires a wheelchair. She is amendable to go to physical and occupational therapy for deconditioning and for ambulation assistance. She is able to go to [facility] and a referral was provided previously. Vascular: She had arterial Doppler performed on 02-05-21 in which there was no stenosis noted. She has triphasic waveforms. She was seen by vascular specialist, Dr. Hugo while in the transitional care unit and additional intervention is not recommended. Edema: To wear Tubigrip which was dispensed previously. To elevate at rest. It is also noted she had a recent deep venous thrombosis to the left calf which she was treated with therapeutic anticoagulation medication. She has completed this course. Infection: She had prior course of infection treated surgically medically. She also was reassured no local signs of infection are noted today. She is no longer on antibiotics and does not have any local or systemic signs of illness. Pain: Controlled likely secondary to her neuropathy. Host factors: Her comorbidities impair her healing process. She has delays in healing. I recommend continue nutritional supplementation to optimize healing in a controlled manner; previously discussed. Labs: Reviewed from 05-10-21 without leukocytosis or other gross abnormalities. Prior A1c 6.7% Imaging: Left foot x-ray performed on 02-19-21 with subsequent transmetatarsal amputation without soft tissue emphysema or foreign body or acute other injuries or Charcot event. Deep venous thrombosis management: She is no longer taking Eliquis secondary to nosebleed. She relates she had an updated scan which did not demonstrate continued clotting. She does not have clinical signs of acute blood clot. Nutrition: To continue to eat a well-balanced whole food based diet. I answered all the patient's questions. To return to the wound healing center in 1 week or call sooner if any questions or concerns. Note: [employer] speech recognition information technology account manager software was used to create portions of this document. Sound-alike and misspelled words, as well as other information technology account manager errors may be contained in the documentation.
== END 2021-07-29 23:59 ==
LOC: WC 10:00
PROVIDERS: PCP Family Medicine; Visit Provider Podiatrist
DX: E11.621 Type 2 diabetes mellitus with foot ulcer (principal); L97.522 Non-pressure chronic ulcer of other part of left foot with fat layer exposed; E11.42 Type 2 diabetes mellitus with diabetic polyneuropathy; T87.89 Other complications of amputation stump; Y83.8 Other surgical procedures as the cause of abnormal reaction of the patient, or of later complication, without mention of misadventure at the time of the procedure; Z86.718 Personal history of other venous thrombosis and embolism; R60.0 Localized edema; S90.821D Blister (nonthermal), right foot, subsequent encounter; X58.XXXD Exposure to other specified factors, subsequent encounter; R26.2 Difficulty in walking, not elsewhere classified
CPT/HCPCS: 11042; 15275; Q4186

== ENCOUNTER 2021-08-25 10:00 | Outpatient (RCR) | payer MEDICARE, OTHER, SELFPAY ==
[2021-07-30 00:27] VITALS: BP 143/72; PULSE 62; RESP 18; TEMP 36.4; BMI 28.6
[2021-08-11 10:25] VITALS: BP 127/66; PULSE 69; RESP 16; TEMP 36.2; BMI 28.6
--- NOTE | 2021-08-11 11:46 | PCM.WC.PN ---
History of Present Illness Date of Service: 08/11/21 Chief Complaint: Left foot ulcer History of Wound: This 66-year-old diabetic female with other comorbidities including recent DVT, anemia, neuropathy, and others was seen for a left foot ulcer. She has a complex history of infection with foot surgeries. Her last foot surgery was performed at [facility] on 02-25-21 which included a transmetatarsal amputation with rotational flap. She did have some subsequent flap compromise with delayed wound healing. She has been offloading as advised. She denies fever, chill, nausea, vomiting, redness, odor. She denies drainage the past week. Progress of Wound: Improving and stable Objective Data Objective Data Vital Signs: Vital Signs Temp Pulse Resp BP 97.1 F L 69 16 127/66 H 08/11/21 10:25 08/11/21 10:25 08/11/21 10:25 08/11/21 10:25 Oxygen Delivery Method Room Air Weight: 70.307 kg Body Mass Index (BMI) 28.6 Physical Exam Extremity Extremity Narrative: No calf tenderness Diminished pulses Muscle wasting noted Left transmetatarsal amputation No pain with ulcer manipulation Skin Skin Narrative: no purulence, no streaking, no odor, no infection. Skin is atrophic and hairless. Plantar aspect remains fully healed. Dorsal lateral stump wound site is stable with granular base. There is no deep tissue exposure. The adjacent skin does not have bogginess or fluctuance on palpation. Stable and consistent with size Neuro Neuro Narrative: lack of normal epicritic sensation via light touch is consistent with neuropathy status Debridement Note Debridement Note Wound debrided: left foot Wound Grade/Stage: 1 Type of Debridement: Excisional debridement Anesthesia Used: 4% Lidocaine Solution Depth: in the subcutaneous layer Percentage of wound debrided: 100 Instrument Used: #15 blade Tissue Removed: fibrous, devitalized subcutaneous, biofilm, slough Severity: Fat Layer Exposed Amount of bleeding with debridement: Mild Bleeding Controlled with: Pressure Patient tolerated procedure: Patient tolerated procedure well Post-Debridement Measurements and Additional Note: Post-Debridement Measurements/Treatment LEO - Nurse 1 - General Ulcer Assessment Start: 08/11/21 10:24 Freq: Status: Active Protocol: [place] Activity Type Activity Date Activity User E-Sign Co-Sign Detail Recorded Client Recorded Date Recorded By Document 08/11/21 10:25 [facility] [id number] 08/11/21 10:39 [facility] 08/11/21 10:25 - Today's Visit Information Type of service Follow-up Visit (Physician/CENTRAL STERILE TECHNICIAN ) Arrival Mode Wheelchair Transfer Assistance Other Transfer Assist (Other) stand by Patient Identification Verified (Name & Yes ) Patient Requires Transmission-Based No Precautions Height and Weight Body Mass Index (BMI) 28.6 BMI Classification Overweight Vital Signs Temperature (97.8 F-99.1 F) 97.1 F L Temperature Source Temporal Pulse Rate (60-100) 69 Pulse Location Monitor Respiratory Rate (12-18) 16 Respiratory rate source Observation Oxygen Delivery Method Room Air Blood Pressure (90/60-120/80) 127/66 H Blood Pressure Mean (mm Hg) 86 Source Monitor Position Sitting Blood Pressure Location Right Arm History Since Last Visit- (Skip if this is Patient's initial visit) Have you changed medications since your No last visit? Any new allergies or adverse reactions No Had a fall/change in ADL's that may No increase risk of falls Signs or symptoms of abuse and/or No neglect since last visit Have you been in the hospital since your No last visit? Has dressing in place as prescribed Yes Has compression in place as prescribed Yes Has offloadiing in place as prescribed N/A Experienced any changes in pain level or No management Pain Scale: 0-10 Numeric Is Patient Pain Free? Yes - Nurse 1 - General Ulcer Measurement Start: 08/11/21 10:24 Freq: Status: Active Protocol: Activity Type Activity Date Activity User E-Sign Co-Sign Detail Recorded Client Recorded Date Recorded By Document 08/11/21 10:25 [facility] [id number] 08/11/21 10:39 [facility] 08/11/21 10:25 Wound Center Nurse 1 #1- L FOOT TRANSMET POST OP -Combined with other wound No -Current Size (cm) - Length 0.9 -Current Size (cm) - Width 0.1 -Current Size (cm) - Depth 0.3 -Total Square Cm 0.09 -Photo Taken No -Epithelialization Large 67-100% -Tunneling No -Undermining/Tunneling No -Circular Undermining No -Exudate Amt None Present -Wound Margin Distinct, Outline Attached -Texture (Margy-wound Skin Appearance) Assessed, Scarring -Moisture (Margy-wound Skin Appearance) Assessed -Color (Margy-wound Skin Appearance) Assessed -Temperature (Margy-wound Skin No Abnormality Appearance) (Pt Warm) -Tenderness on Palpation (Margy-wound No Skin Appearance) -Ulcer Cleansing Rinsed/ Irrigated with Saline -Foul Odor after Cleansing No -Anesthetic Used 5% Lidocaine Gel Lower Limb Edema Present Yes Left Calf (cm) 31.3 Left Ankle (cm) 20.5 - Nurse 2 - General Ulcer CM Notes Start: 08/11/21 10:24 Freq: Status: Active Protocol: Activity Type Activity Date Activity User E-Sign Co-Sign Detail Recorded Client Recorded Date Recorded By Document 08/11/21 10:52 [id number] 08/11/21 10:58 08/11/21 10:52 Wound Center Nurse 2 #1- L FOOT TRANSMET POST OP -Time 10:54 -Correct Patient Yes -Correct Side, Site, Position Yes -Correct Procedure Yes -Procedure Performed Yes -Type of Procedure Debridement -Clinical Debridement Subcutaneous -Tissue Removed Subcutaneous -Post Debridement (cm) - Length 0.8 -Post Debridement (cm) - Width 0.2 -Post Debridement (cm) - Depth 0.4 -Total Square (Post) (cm) 0.16 -Area of Debridement (cm) - Length 0.8 -Area of Debridement (cm) - Width 0.2 -Total Square (Area) (cm) 0.16 -Tunneling No -Undermining/Tunneling No -Circular Undermining No -Wound/Ulcer Outcome Not Healed -Ulcer Cleansing Rinsed/ Irrigated with Saline -Foul Odor after Cleansing No -Bioengineered Tissue No -Bleeding Controlled with Pressure -Offloading Yes -Type of Offloading Surgical Shoe -Treatment Response Procedure Tolerated Well -Debridement - Subq, 1st 20sq cm Yes Pain Scale: 0-10 Numeric Is Patient Pain Free? Yes - Nurse 3 - General Ulcer D/C NN Start: 08/11/21 10:24 Freq: Status: Active Protocol: Activity Type Activity Date Activity User E-Sign Co-Sign Detail Recorded Client Recorded Date Recorded By Document 08/11/21 11:06 [facility] [id number] 08/11/21 11:06 [facility] 08/11/21 11:06 Wound Care Nurse 3 #1- L FOOT TRANSMET POST OP -Ulcer Cleansing Rinsed/ Irrigated with Saline -Foul Odor after Cleansing No -Primary Dressing Covered/Secured with Dry Gauze, Secured with Tape -Other Covering drsg per rb rn Left -Compression Wrap Demetrio Wrap Treatment Response Procedure Tolerated Well Pain Scale: 0-10 Numeric Is Patient Pain Free? Yes WC - Visit Discharge Discharge Condition Stable Ambulatory Status Wheelchair Transportation Private Auto Assessment/Plan Assessment/Plan (1) Delayed wound healing: CODE(S): T14.8XXD - Other injury of unspecified body region, subsequent encounter (2) PAD (peripheral artery disease): CODE(S): I73.9 - Peripheral vascular disease, unspecified (3) Non-pressure chronic ulcer of other part of left foot with fat layer exposed: CODE(S): L97.522 - Non-pressure chronic ulcer of other part of left foot with fat layer exposed (4) Type 2 diabetes mellitus with diabetic polyneuropathy: CODE(S): E11.42 - Type 2 diabetes mellitus with diabetic polyneuropathy QUALIFIERS: Diabetes mellitus terminal operations supervisor insulin use: unspecified terminal operations supervisor insulin use status Qualified Code(s): E11.42 - Type 2 diabetes mellitus with diabetic polyneuropathy PLAN: I reviewed and discussed her case today. Debridement was performed as noted in the clinical nursing plan. I recommended additional delayed primary closure today which verbal consent was obtained. Betadine prep was performed. The wound measured 8 x 2 x 4 mm in size. 3-0 nylon suture was used to reapproximate the skin edges utilizing horizontal mattress and retention simple sutures. She tolerated this well. Pressure was applied to maintain hemostasis. She did not require local anesthetic due to her neuropathic status. A secondary dressing was applied including Betadine and dry gauze. The following work up and care recommendations were made: Dressing: Betadine moistened gauze covered with dry gauze and Kerlix and Demetrio wrap. It is okay to change up to 1 time per week. Advanced wound healing: course of epifix has been completed Offload: To remain nonweightbearing to left lower extremity. She uses assistive device. She also hangs her heel over stacked pillows while in bed and has an egg crate offloading boot for additional protection. I recommend durable medical equipment to aid in the offloading process. To continue with therapy to prevent debilitation. Vascular: She had arterial Doppler performed on 02-05-21 in which there was no stenosis noted. She has triphasic waveforms. She was seen by vascular specialist, Dr. Hugo while in the transitional care unit and additional intervention is not recommended. Edema: To wear Tubigrip which was dispensed previously. To elevate at rest. It is also noted she had a recent deep venous thrombosis to the left calf which she was treated with therapeutic anticoagulation medication. She has completed this course. She is wearing an Demetrio wrap. Infection: She had prior course of infection treated surgically medically. She also was reassured no local signs of infection are noted today. She is no longer on antibiotics and does not have any local or systemic signs of illness. Pain: Controlled likely secondary to her neuropathy. Host factors: Her comorbidities impair her healing process. She has delays in healing. I recommend continue nutritional supplementation to optimize healing in a controlled manner; previously discussed. Labs: Reviewed from 05-10-21 without leukocytosis or other gross abnormalities. Prior A1c 6.7% Imaging: Left foot x-ray performed on 02-19-21 with subsequent transmetatarsal amputation without soft tissue emphysema or foreign body or acute other injuries or Charcot event. Nutrition: To continue to eat a well-balanced whole food based diet. I answered all the patient's questions. To return to the wound healing center in 1 week or call sooner if any questions or concerns. Note: [email or web address] speech recognition qa specialist software was used to create portions of this document. Sound-alike and misspelled words, as well as other qa specialist errors may be contained in the documentation.
[2021-08-18 10:22] VITALS: BP 117/58; PULSE 58; RESP 18; TEMP 36.2; BMI 28.6
--- NOTE | 2021-08-18 10:52 | PCM.WC.PN ---
History of Present Illness Date of Service: 08/18/21 Chief Complaint: Left foot ulcer History of Wound: This 66-year-old diabetic female with other comorbidities including recent DVT, anemia, neuropathy, and others was seen for a left foot ulcer. She has a complex history of infection with foot surgeries. Her last foot surgery was performed at [facility] on 02-25-21 which included a transmetatarsal amputation with rotational flap. She did have some subsequent flap compromise with delayed wound healing. She has been offloading as advised. She denies fever, chill, nausea, vomiting, redness, odor. She denies drainage the past week. She had an ulcer excision and additional delayed closure performed in clinic last week and the sutures remain intact. Progress of Wound: stable Objective Data Objective Data Vital Signs: Vital Signs Temp Pulse Resp BP 97.1 F L 58 L 18 117/58 L 08/18/21 10:22 08/18/21 10:22 08/18/21 10:22 08/18/21 10:22 Oxygen Delivery Method Room Air Weight: 70.307 kg Body Mass Index (BMI) 28.6 Physical Exam Extremity Extremity Narrative: No calf tenderness Diminished pulses Muscle wasting noted Left transmetatarsal amputation No pain with ulcer / delayed closure site manipulation Skin Skin Narrative: no purulence, no streaking, no odor, no infection. Skin is atrophic and hairless. Plantar aspect remains fully healed. Dorsal lateral stump sutures intact without gapping, drainage, erythema or odor, bogginess or fluctuance Neuro Neuro Narrative: lack of normal epicritic sensation via light touch is consistent with neuropathy status Debridement Note Debridement Note Post-Debridement Measurements and Additional Note: Post-Debridement Measurements/Treatment - Nurse 1 - General Ulcer Assessment Start: 08/11/21 10:24 Freq: Status: Active Protocol: LEO.LOWELVIST Activity Type Activity Date Activity User E-Sign Co-Sign Detail Recorded Client Recorded Date Recorded By Document 08/11/21 10:25 BM[facility] [id number] 08/11/21 10:39 BMF Document 08/18/21 10:22 RB [id number] 08/18/21 10:25 RB 08/11/21 08/18/21 10:25 10:22 - Today's Visit Information Type of service Follow-up Visit Follow-up Visit (Physician/KEY ACCOUNT EXECUTIVE (Physician/KEY ACCOUNT EXECUTIVE ) ) Arrival Mode Wheelchair Wheelchair Transfer Assistance Other Manual Transfer Assist (Other) stand by Patient Identification Verified (Name & Yes Yes ) Patient Requires Transmission-Based No No Precautions Height and Weight Body Mass Index (BMI) 28.6 28.6 BMI Classification Overweight Overweight Vital Signs Temperature (97.8 F-99.1 F) 97.1 F L 97.1 F L Temperature Source Temporal Temporal Pulse Rate (60-100) 69 58 L Pulse Location Monitor Monitor Respiratory Rate (12-18) 16 18 Respiratory rate source Observation Observation Oxygen Delivery Method Room Air Blood Pressure (90/60-120/80) 127/66 H 117/58 L Blood Pressure Mean (mm Hg) 86 77 Source Monitor Monitor Position Sitting Sitting Blood Pressure Location Right Arm Left Arm History Since Last Visit- (Skip if this is Patient's initial visit) Have you changed medications since your No No last visit? Any new allergies or adverse reactions No No Had a fall/change in ADL's that may No No increase risk of falls Signs or symptoms of abuse and/or No No neglect since last visit Have you been in the hospital since your No No last visit? Has dressing in place as prescribed Yes Yes Has compression in place as prescribed Yes Yes Has offloadiing in place as prescribed N/A Yes Experienced any changes in pain level or No No management Left Footwear Regular Shoe Right Footwear Regular Shoe Pain Scale: 0-10 Numeric Is Patient Pain Free? Yes Yes WC - Nurse 1 - General Ulcer Measurement Start: 08/11/21 10:24 Freq: Status: Active Protocol: Activity Type Activity Date Activity User E-Sign Co-Sign Detail Recorded Client Recorded Date Recorded By Document 08/11/21 10:25 [facility] [id number] 08/11/21 10:39 [facility] Document 08/18/21 10:22 RB [id number] 08/18/21 10:25 RB 08/11/21 08/18/21 10:25 10:22 Wound Center Nurse 1 #1- L FOOT TRANSMET POST OP -Combined with other wound No -Current Size (cm) - Length 0.9 0.1 -Current Size (cm) - Width 0.1 0.1 -Current Size (cm) - Depth 0.3 0.1 -Total Square Cm 0.09 0.01 -Photo Taken No -Epithelialization Large 67-100% -Tunneling No No -Undermining/Tunneling No No -Circular Undermining No No -Exudate Amt None Present Medium -Exudate Type Serosanguineous -Wound Margin Distinct, Distinct, Outline Outline Attached Attached -Granulation Amt Medium (34-66%) -Granulation Quality [place] -Slough/Fibrin Yes -Necrosis Amt Small (1-33%) -Necrotic Tissue Type Adherent Slough -Structure Exposed N/A -Texture (Margy-wound Skin Appearance) Assessed, Assessed Scarring -Moisture (Margy-wound Skin Appearance) Assessed Assessed -Color (Margy-wound Skin Appearance) Assessed Assessed -Temperature (Margy-wound Skin No Abnormality No Abnormality Appearance) (Pt Warm) (Pt Warm) -Tenderness on Palpation (Margy-wound No No Skin Appearance) -Ulcer Cleansing Rinsed/ Wound Cleanser Irrigated with Saline -Foul Odor after Cleansing No No -Anesthetic Used 5% Lidocaine 4% Lidocaine Gel Solution -Wound Comment(s) sutures intact Lower Limb Edema Present Yes Left Calf (cm) 31.3 Left Ankle (cm) 20.5 WC - Nurse 2 - General Ulcer CM Notes Start: 08/11/21 10:24 Freq: Status: Active Protocol: Activity Type Activity Date Activity User E-Sign Co-Sign Detail Recorded Client Recorded Date Recorded By Document 08/11/21 10:52 [id number] [id number] 08/11/21 10:58 Document 08/18/21 10:42 [id number] 08/18/21 10:43 08/11/21 08/18/21 10:52 10:42 Wound Center Nurse 2 #1- L FOOT TRANSMET POST OP -Time 10:54 -Correct Patient Yes No -Correct Side, Site, Position Yes No -Correct Procedure Yes No -Procedure Performed Yes No -Type of Procedure Debridement -Clinical Debridement Subcutaneous -Tissue Removed Subcutaneous -Post Debridement (cm) - Length 0.8 -Post Debridement (cm) - Width 0.2 -Post Debridement (cm) - Depth 0.4 -Total Square (Post) (cm) 0.16 -Area of Debridement (cm) - Length 0.8 -Area of Debridement (cm) - Width 0.2 -Total Square (Area) (cm) 0.16 -Tunneling No -Undermining/Tunneling No -Circular Undermining No -Wound/Ulcer Outcome Not Healed Not Healed -Ulcer Cleansing Rinsed/ Irrigated with Saline -Foul Odor after Cleansing No -Bioengineered Tissue No -Bleeding Controlled with Pressure -Offloading Yes -Type of Offloading Surgical Shoe -Treatment Response Procedure Tolerated Well -Debridement - Subq, 1st 20sq cm Yes Pain Scale: 0-10 Numeric Is Patient Pain Free? Yes - Nurse 3 - General Ulcer D/C NN Start: 08/11/21 10:24 Freq: Status: Active Protocol: Activity Type Activity Date Activity User E-Sign Co-Sign Detail Recorded Client Recorded Date Recorded By Document 08/11/21 11:06 [facility] [id number] 08/11/21 11:06 [facility] Document 08/18/21 10:43 RB [id number] 08/18/21 10:45 RB 08/11/21 08/18/21 11:06 10:43 Wound Care Nurse 3 #1- L FOOT TRANSMET POST OP -Ulcer Cleansing Rinsed/ Irrigated with Saline -Foul Odor after Cleansing No -Other Dressing betadine moistened gauze -Primary Dressing Covered/Secured with Dry Gauze, Dry Gauze,Dry Secured with Gauze & Roll Tape Gauze,Secured with Tape -Other Covering drsg per rb rn Left -Compression Wrap Demetrio Wrap -Other demetrio Treatment Response Procedure Procedure Tolerated Well Tolerated Well Pain Scale: 0-10 Numeric Is Patient Pain Free? Yes Yes - Visit Discharge Discharge Condition Stable Stable Ambulatory Status Wheelchair Wheelchair Transportation Private Auto Private Auto Medication Reconcilliation completed & No provided to patient/care provider Clinical Summary of Care Provided Yes Assessment/Plan Assessment/Plan (1) Delayed wound healing: CODE(S): T14.8XXD - Other injury of unspecified body region, subsequent encounter (2) PAD (peripheral artery disease): CODE(S): I73.9 - Peripheral vascular disease, unspecified (3) Non-pressure chronic ulcer of other part of left foot with fat layer exposed: CODE(S): L97.522 - Non-pressure chronic ulcer of other part of left foot with fat layer exposed (4) Type 2 diabetes mellitus with diabetic polyneuropathy: CODE(S): E11.42 - Type 2 diabetes mellitus with diabetic polyneuropathy QUALIFIERS: Diabetes mellitus termite exterminator helper insulin use: unspecified jail insulin use status Qualified Code(s): E11.42 - Type 2 diabetes mellitus with diabetic polyneuropathy PLAN: I reviewed and discussed her case today. Her delayed closure site is intact I do not see any drainage. We will plan on leaving the sutures in for most likely 3 weeks. The following work up and care recommendations were made: Dressing: Betadine moistened gauze covered with dry gauze and Kerlix and Demetrio wrap. It is okay to change up to 1 time per week. Advanced wound healing: course of epifix has been completed Offload: To remain nonweightbearing to left lower extremity. She uses assistive device. She also hangs her heel over stacked pillows while in bed and has an egg crate offloading boot for additional protection. I recommend durable medical equipment to aid in the offloading process. To continue with therapy to prevent debilitation. Vascular: She had arterial Doppler performed on 02-05-21 in which there was no stenosis noted. She has triphasic waveforms. She was seen by vascular specialist, Dr. Hugo while in the transitional care unit and additional intervention is not recommended. Edema: To wear Tubigrip which was dispensed previously. To elevate at rest. It is also noted she had a recent deep venous thrombosis to the left calf which she was treated with therapeutic anticoagulation medication. She has completed this course. She is wearing an Demetrio wrap. Infection: She had prior course of infection treated surgically medically. She also was reassured no local signs of infection are noted today. She is no longer on antibiotics and does not have any local or systemic signs of illness. Pain: Controlled likely secondary to her neuropathy. Host factors: Her comorbidities impair her healing process. She has delays in healing. I recommend continue nutritional supplementation to optimize healing in a controlled manner; previously discussed. Labs: Reviewed from 05-10-21 without leukocytosis or other gross abnormalities. Prior A1c 6.7% Imaging: Left foot x-ray performed on 02-19-21 with subsequent transmetatarsal amputation without soft tissue emphysema or foreign body or acute other injuries or Charcot event. Nutrition: To continue to eat a well-balanced whole food based diet. I answered all the patient's questions. To return to the wound healing center in 1 week or call sooner if any questions or concerns. Note: [employer] speech recognition special education math teacher software was used to create portions of this document. Sound-alike and misspelled words, as well as other special education math teacher errors may be contained in the documentation. The medical decision making level is low. There is noted low risk of morbidity after considering this treatment plan and diagnostic data. The problems addressed require a low medical decision making level which includes two or more minor problems, a stable chronic illness, or an acute uncomplicated illness or injury.
[2021-08-25 10:48] VITALS: BP 138/67; PULSE 70; RESP 16; TEMP 37.1; BMI 28.6
--- NOTE | 2021-08-25 11:09 | PCM.WC.PN ---
History of Present Illness Date of Service: 08/25/21 Chief Complaint: Left foot ulcer History of Wound: This 66-year-old diabetic female with other comorbidities including recent DVT, anemia, neuropathy, and others was seen for a left foot ulcer. She has a complex history of infection with foot surgeries. Her last foot surgery was performed at [facility] on 02-25-21 which included a transmetatarsal amputation with rotational flap. She did have some subsequent flap compromise with delayed wound healing. She has been offloading as advised. She denies fever, chill, nausea, vomiting, redness, odor. She denies drainage the past week. She had an ulcer excision and additional delayed closure performed recently and denies drainage. Progress of Wound: Healed Objective Data Objective Data Vital Signs: Vital Signs Temp Pulse Resp BP 98.7 F 70 16 138/67 H 08/25/21 10:48 08/25/21 10:48 08/25/21 10:48 08/25/21 10:48 Oxygen Delivery Method Room Air Weight: 70.307 kg Body Mass Index (BMI) 28.6 Physical Exam Extremity Extremity Narrative: No calf tenderness Diminished pulses Muscle wasting noted Left transmetatarsal amputation No pain with ulcer / delayed closure site manipulation--healed today Skin Skin Narrative: no purulence, no streaking, no odor, no infection. Skin is atrophic and hairless. Plantar aspect remains fully healed. Sutures were removed and full epithelialization is noted at the healed site Neuro Neuro Narrative: lack of normal epicritic sensation via light touch is consistent with neuropathy status Debridement Note Debridement Note Post-Debridement Measurements and Additional Note: Post-Debridement Measurements/Treatment - Nurse 1 - General Ulcer Assessment Start: 08/11/21 10:24 Freq: Status: Active Protocol: .LOWSERGIO Activity Type Activity Date Activity User E-Sign Co-Sign Detail Recorded Client Recorded Date Recorded By Document 08/11/21 10:25 BMF [id number] 08/11/21 10:39 BMF Document 08/18/21 10:22 RB [id number] 08/18/21 10:25 RB Document 08/25/21 10:48 [facility] Desktop 08/25/21 10:52 BMF 08/11/21 08/18/21 08/25/21 10:25 10:22 10:48 - Today's Visit Information Type of service Follow-up Visit Follow-up Visit Follow-up Visit (Physician/IRRIGATION EQUIPMENT INSTALLER (Physician/IRRIGATION EQUIPMENT INSTALLER (Physician/IRRIGATION EQUIPMENT INSTALLER ) ) ) Arrival Mode Wheelchair Wheelchair Wheelchair Transfer Assistance Other Manual Other Transfer Assist (Other) stand by stand by Patient Identification Verified (Name & Yes Yes Yes ) Patient Requires Transmission-Based No No Precautions Height and Weight Body Mass Index (BMI) 28.6 28.6 28.6 BMI Classification Overweight Overweight Overweight Vital Signs Temperature (97.8 F-99.1 F) 97.1 F L 97.1 F L 98.7 F Temperature Source Temporal Temporal Temporal Pulse Rate (60-100) 69 58 L 70 Pulse Location Monitor Monitor Monitor Respiratory Rate (12-18) 16 18 16 Respiratory rate source Observation Observation Observation Oxygen Delivery Method Room Air Room Air Blood Pressure (90/60-120/80) 127/66 H 117/58 L 138/67 H Blood Pressure Mean (mm Hg) 86 77 90 Source Monitor Monitor Monitor Position Sitting Sitting Sitting Blood Pressure Location Right Arm Left Arm Left Arm History Since Last Visit- (Skip if this is Patient's initial visit) Have you changed medications since your No No No last visit? Any new allergies or adverse reactions No No No Had a fall/change in ADL's that may No No No increase risk of falls Signs or symptoms of abuse and/or No No No neglect since last visit Have you been in the hospital since your No No No last visit? Has dressing in place as prescribed Yes Yes Yes Has compression in place as prescribed Yes Yes Yes Has offloadiing in place as prescribed N/A Yes N/A Experienced any changes in pain level or No No No management Left Footwear Regular Shoe Right Footwear Regular Shoe Other Footwear sock on left foot Pain Scale: 0-10 Numeric Is Patient Pain Free? Yes Yes Yes WC - Nurse 1 - General Ulcer Measurement Start: 08/11/21 10:24 Freq: Status: Active Protocol: Activity Type Activity Date Activity User E-Sign Co-Sign Detail Recorded Client Recorded Date Recorded By Document 08/11/21 10:25 BMF [id number] 08/11/21 10:39 BMF Document 08/18/21 10:22 RB [id number] 08/18/21 10:25 RB Document 08/25/21 10:48 BMF Desktop 08/25/21 10:52 BMF 10/08/18/21 08/25/21 10:25 10:22 10:48 Wound Center Nurse 1 #1- L FOOT TRANSMET POST OP -Combined with other wound No No -Current Size (cm) - Length 0.9 0.1 0.1 -Current Size (cm) - Width 0.1 0.1 0.1 -Current Size (cm) - Depth 0.3 0.1 0.1 -Total Square Cm 0.09 0.01 0.01 -Photo Taken No -Epithelialization Large 67-100% -Tunneling No No -Undermining/Tunneling No No -Circular Undermining No No -Exudate Amt None Present Medium -Exudate Type Serosanguineous -Wound Margin Distinct, Distinct, Outline Outline Attached Attached -Granulation Amt Medium (34-66%) -Granulation [facility] -Slough/Fibrin Yes -Necrosis Amt Small (1-33%) -Necrotic Tissue Type Adherent Slough -Structure Exposed N/A -Texture (Margy-wound Skin Appearance) Assessed, Assessed Assessed Scarring -Moisture (Margy-wound Skin Appearance) Assessed Assessed Assessed -Color (Margy-wound Skin Appearance) Assessed Assessed Assessed -Temperature (Margy-wound Skin No Abnormality No Abnormality No Abnormality Appearance) (Pt Warm) (Pt Warm) (Pt Warm) -Tenderness on Palpation (Margy-wound No No No Skin Appearance) -Ulcer Cleansing Rinsed/ Wound Cleanser Rinsed/ Irrigated with Irrigated with Saline Saline -Foul Odor after Cleansing No No No -Anesthetic Used 5% Lidocaine 4% Lidocaine 4% Lidocaine Gel Solution Solution -Wound Comment(s) sutures intact sutures intact Lower Limb Edema Present Yes Left Calf (cm) 31.3 Left Ankle (cm) 20.5 WC - Nurse 2 - General Ulcer CM Notes Start: 08/11/21 10:24 Freq: Status: Active Protocol: Activity Type Activity Date Activity User E-Sign Co-Sign Detail Recorded Client Recorded Date Recorded By Document 08/11/21 10:52 DIONI [id number] 08/11/21 10:58 Document 08/18/21 10:42 DIONI [id number] 08/18/21 10:43 Document 08/25/21 11:01 DIONI [id number] 08/25/21 11:03 08/11/21 08/18/21 08/25/21 10:52 10:42 11:01 Wound Center Nurse 2 #1- L FOOT TRANSMET POST OP -Time 10:54 -Correct Patient Yes No No -Correct Side, Site, Position Yes No No -Correct Procedure Yes No No -Procedure Performed Yes No No -Type of Procedure Debridement -Clinical Debridement Subcutaneous -Tissue Removed Subcutaneous -Post Debridement (cm) - Length 0.8 0 -Post Debridement (cm) - Width 0.2 0 -Post Debridement (cm) - Depth 0.4 0 -Total Square (Post) (cm) 0.16 0 -Area of Debridement (cm) - Length 0.8 0 -Area of Debridement (cm) - Width 0.2 0 -Total Square (Area) (cm) 0.16 0 -Tunneling No -Undermining/Tunneling No -Circular Undermining No -Wound/Ulcer Outcome Not Healed Not Healed Healed- Epithelialized -Ulcer Cleansing Rinsed/ Irrigated with Saline -Foul Odor after Cleansing No -Bioengineered Tissue No -Bleeding Controlled with Pressure -Offloading Yes -Type of Offloading Surgical Shoe -Treatment Response Procedure Tolerated Well -Debridement - Subq, 1st 20sq cm Yes Pain Scale: 0-10 Numeric Is Patient Pain Free? Yes Yes - Nurse 3 - General Ulcer D/C NN Start: 08/11/21 10:24 Freq: Status: Active Protocol: Activity Type Activity Date Activity User E-Sign Co-Sign Detail Recorded Client Recorded Date Recorded By Document 08/11/21 11:06 [facility] [id number] 08/11/21 11:06 [facility] Document 08/18/21 10:43 [id number] 08/18/21 10:45 08/11/21 08/18/21 11:06 10:43 Wound Care Nurse 3 #1- L FOOT TRANSMET POST OP -Ulcer Cleansing Rinsed/ Irrigated with Saline -Foul Odor after Cleansing No -Other Dressing betadine moistened gauze -Primary Dressing Covered/Secured with Dry Gauze, Dry Gauze,Dry Secured with Gauze & Roll Tape Gauze,Secured with Tape -Other Covering drsg per rb rn Left -Compression Wrap Demetrio Wrap -Other demetrio Treatment Response Procedure Procedure Tolerated Well Tolerated Well Pain Scale: 0-10 Numeric Is Patient Pain Free? Yes Yes - Visit Discharge Discharge Condition Stable Stable Ambulatory Status Wheelchair Wheelchair Transportation Private Auto Private Auto Medication Reconcilliation completed & No provided to patient/care provider Clinical Summary of Care Provided Yes Assessment/Plan Assessment/Plan (1) Delayed wound healing: CODE(S): T14.8XXD - Other injury of unspecified body region, subsequent encounter (2) PAD (peripheral artery disease): CODE(S): I73.9 - Peripheral vascular disease, unspecified (3) Non-pressure chronic ulcer of other part of left foot with fat layer exposed: CODE(S): L97.522 - Non-pressure chronic ulcer of other part of left foot with fat layer exposed (4) Type 2 diabetes mellitus with diabetic polyneuropathy: CODE(S): E11.42 - Type 2 diabetes mellitus with diabetic polyneuropathy QUALIFIERS: Diabetes mellitus mine geologist insulin use: unspecified mine geologist insulin use status Qualified Code(s): E11.42 - Type 2 diabetes mellitus with diabetic polyneuropathy PLAN: I reviewed and discussed her case today. Sutures were removed and the site has healed. The following work up and care recommendations were made: Dressing: To discontinue at this time. Offload: To remain nonweightbearing to left lower extremity for 2 additional weeks. I recommended she proceed forward with extra-depth shoes with a left toe filler and carbon fiber inlay. A prescription was provided for her to obtain this at [employer] [place]. Vascular: She had arterial Doppler performed on 02-05-21 in which there was no stenosis noted. She has triphasic waveforms. She was seen by vascular specialist, Dr. Hugo while in the transitional care unit and additional intervention is not recommended. Edema: To wear Tubigrip which was dispensed previously. To elevate at rest. It is also noted she had a recent deep venous thrombosis to the left calf which she was treated with therapeutic anticoagulation medication. She has completed this course. She is wearing an Demetrio wrap. Infection: She had prior course of infection treated surgically medically. She also was reassured no local signs of infection are noted today. She is no longer on antibiotics and does not have any local or systemic signs of illness. Pain: Controlled likely secondary to her neuropathy. Host factors: Her comorbidities impair her healing process. Nutrition: To continue to eat a well-balanced whole food based diet. I answered all the patient's questions. Discharge at this time. To [facility] with [facility] for risk assessment and palliative care assistance. We will also do a healed wound check up on her shoe order status at this time. Note: Quotations Book speech recognition hydraulic spinner software was used to create portions of this document. Sound-alike and misspelled words, as well as other hydraulic spinner errors may be contained in the documentation. The medical decision making level is low. There is noted low risk of morbidity after considering this treatment plan and diagnostic data. The problems addressed require a low medical decision making level which includes two or more minor problems, a stable chronic illness, or an acute uncomplicated illness or injury.
== END 2021-08-25 11:22 | disposition home or self-care (01) ==
LOC: WC 10:00
PROVIDERS: PCP Family Medicine; Visit Provider Podiatrist
DX: E11.621 Type 2 diabetes mellitus with foot ulcer (principal); E11.51 Type 2 diabetes mellitus with diabetic peripheral angiopathy without gangrene; E11.42 Type 2 diabetes mellitus with diabetic polyneuropathy; Z86.718 Personal history of other venous thrombosis and embolism; L97.522 Non-pressure chronic ulcer of other part of left foot with fat layer exposed
CPT/HCPCS: 11042; 99213; G0463

== ENCOUNTER 2021-08-31 12:56 | Inpatient (IN) | payer MEDICARE, OTHER, SELFPAY ==
[2021-08-31 12:56] VITALS: BP 168/78; PULSE 74; RESP 16; TEMP 35.6; O2SAT 99; BMI 25.7
--- NOTE | 2021-08-31 13:34 | CT_ITS ---
STUDY: CT ABDOMEN AND PELVIS WITHOUT CONTRAST REASON FOR EXAM: Female, 66 years old. Abdominal pain. RADIATION DOSAGE (If Supplied By Facility): CTDIvol = ( 8.41 ) mGy, DLP = ( 449.43 ) mGycm TECHNIQUE: Transaxial images were obtained from the dome of the diaphragm to the symphysis pubis without oral contrast, and without intravenous contrast. Sagittal and coronal images were reconstructed. Individualized dose optimization techniques were used for this CT. COMPARISON: Comparison is made with prior study of 03/07/2012. FINDINGS: Minimal degree of bibasilar scarring. Coronary artery calcification. There is decreased attenuation of the liver consistent with steatosis. Once again, is evidence of calcified atherosclerotic plaques and branches of the hepatic artery. Normal gallbladder and extrahepatic biliary system. Normal spleen. Normal pancreas. Normal bilateral adrenal glands. Mild degree of right hydronephrosis. Possible tiny calculus at the right ureterovesical junction. Normal left kidney. There is a small hiatal hernia. Normal small intestine. There are scattered sigmoid diverticula. Colonic diverticula consistent with diverticulosis. The appendix is visualized and appears normal. There is diffuse atherosclerotic calcification of the abdominal aorta and its major visceral branches, without a demonstrated aneurysm. Normal inferior vena cava. Normal retroperitoneum. The urinary bladder is distended. There is a small umbilical hernia containing fat. There are diffuse degenerative changes of the visualized lumbar spine. There is loss of the normal lumbar lordosis. CT/Abdomen/Pelvis without Cont IMPRESSION: Fatty infiltration of the liver. Vascular calcifications of the branches of the hepatic artery. Mild degree of right-sided hydronephrosis and questionable tiny calculus at the right ureterovesical junction. Electronically Signed: Ming Louise MD at 15:09 EDT , Service support ,
--- NOTE | 2021-08-31 13:35 | ED.VIS.GI ---
HPI HPI - GI History of Present Illness Chief Complaint: GI Bleed Detail of Chief Complaint: Bright red blood per rectum that started at 12:30 AM Informant: patient Narrative Narrative: Patient presents to the emergency department complaint of bright red blood per rectum since 12:30 AM. Patient states that she has had for 5 episodes since that time. Patient also states that she was diaphoretic throughout the evening. Patient has not had rectal bleeding like this before. Patient also complaining of some mild lower abdominal discomfort. Patient has history of chronic diarrhea. Patient has had C. difficile in the past. Patient was on antibiotics several months ago for a UTI. No prior history of diverticulitis. She did feel lightheaded and dizzy with standing last evening. Patient states that in February she had to have a transfusion for anemia and got 2 units of blood. Patient had been on Eliquis at that time for history of a DVT. Patient no longer is anticoagulated. Prior similar symptoms: No PFSH PFSH Home Medications acetaminophen 1,000 mg PO Q6H PRN #0 tab 03/25/21 [Rx Last Taken Unknown] acetaminophen 500 mg PO Q6H PRN PRN #0 tab 03/25/21 [Rx Last Taken Unknown] acidophilus-pectin, citrus 1 tab PO TID #0 tab 03/25/21 [Rx Last Taken Unknown] albuterol sulfate [Ventolin HFA] 1 puff INHALATION Q4H PRN PRN #0 g 03/25/21 [Rx Last Taken Unknown] dtoxz-duyp-AjAWX-pjlpbq-fz-amg [Alfredo (with collagen)] 1 packet PO BIDCM #0 ea 03/25/21 [Rx Last Taken Unknown] aspirin 81 mg PO DAILY@0800 #0 tab 03/25/21 [Rx Last Taken Unknown] fluticasone propion-salmeterol [Wixela Inhub] 1 puff INHALATION Q12 #0 ea 03/25/21 [Rx Last Taken Unknown] gabapentin 300 mg PO BID #0 cap 03/25/21 [Rx Last Taken Unknown] gabapentin 600 mg PO QHS #0 tab 03/25/21 [Rx Last Taken Unknown] guaifenesin [Mucus Relief ER] 1,200 mg PO BID #0 tab 03/25/21 [Rx Last Taken Unknown] oufxwu-umjaigej-hsmzhda [Creon] 1 capsule PO TIDCM #0 cap 03/25/21 [Rx Last Taken Unknown] loperamide 4 mg PO 4X/DAY #0 cap 03/25/21 [Rx Last Taken Unknown] menthol-zinc oxide [Calmoseptine] 1 applic TOPICAL BID #0 g 03/25/21 [Rx Last Taken Unknown] nystatin [Nyamyc] 1 applic TOPICAL TID #0 g 03/25/21 [Rx Last Taken Unknown] ondansetron 4 mg PO Q6H PRN PRN #0 tab 03/25/21 [Rx Last Taken Unknown] pantoprazole 40 mg PO BID #0 tab 03/25/21 [Rx Last Taken Unknown] polysaccharide iron complex [Ferrex 150] 150 mg PO DAILYCM #0 cap 03/25/21 [Rx Last Taken Unknown] doxycycline monohydrate 100 mg PO BID #20 cap 05/18/21 [Rx Last Taken Unknown] melatonin 3 mg PO QHS PRN 05/18/21 [History Last Taken Unknown] tramadol 50 mg PO Q6H PRN 05/18/21 [History Last Taken Unknown] Allergy/AdvReac Type Severity Reaction Status Date / Time cefprozil Allergy Shortness Verified 08/31/21 12:59 of breath ceftriaxone Allergy Hives Verified 08/31/21 12:59 clindamycin Allergy Rash Verified 08/31/21 12:59 enalapril Allergy Other Verified 08/31/21 12:59 enoxaparin Allergy Rash Verified 08/31/21 12:59 heparin Allergy Rash Verified 08/31/21 12:59 levalbuterol Allergy Other Verified 08/31/21 12:59 morphine Allergy Shortness Verified 08/31/21 12:59 of breath Penicillins Allergy Anaphylaxis Verified 08/31/21 12:59 shellfish derived Allergy Anaphylaxis Verified 08/31/21 12:59 valsartan Allergy Other Verified 08/31/21 12:59 vancomycin Allergy Rash Verified 08/31/21 12:59 Surgical History History of appendectomy History of eye surgery History of foot surgery History of lumpectomy History of tubal ligation Social History Smoking Status: Never smoker ROS ROS ED Constitutional Constitutional ED: Reports systems reviewed and no addt'l complaints, except as documented; Denies body ache(s), change in weight or chills Eyes Eyes: Denies acute decrease in peripheral vision, change in vision, double vision or loss of vision ENT ENT ED: Reports none; Denies ear pain, lip swelling, loss taste/smell, neck pain, otalgia or sore throat Cardiovascular Cardiovascular: Reports none; Denies abdominal pain, chest pain with activity, leg edema, lightheadedness, palpitations, rapid heart rate or syncope Respiratory/Chest Respiratory/Chest: Reports none; Denies change in mental status, dry cough, dyspnea, hemoptysis, shortness of breath at rest or shortness of breath with exertion Gastrointestinal Gastrointestinal: Reports none, abdominal pain and other Details: Bright red blood per rectum ; Denies change in stool character, diarrhea, hematemesis, hematochezia, melena, rectal bleeding or vomiting Genitourinary Genitourinary ED: Reports none; Denies abdominal discomfort, anuria, dysuria, genital pain or polyuria Musculoskeletal Musculoskeletal: Reports none; Denies arthralgias, back pain, difficulty walking, extremity pain, muscle weakness or myalgias Integumentary Reports none; Denies abscess or rash Neurologic Neurologic: Reports none; Denies abnormal gait, confusion, focal weakness, frequent falls, headache(s), loss of vision, numbness, paresthesias, radicular pain, vertigo or weakness Psychiatric Psychiatric: Reports systems reviewed and no addt'l complaints, except as documented and none; Denies behavioral changes, confusion, difficulty concentrating, hallucinations, suicidal ideation, tactile hallucinations or visual hallucinations Endocrine Endocrinology: Denies none, cold intolerance, excessive sweating, fatigue or heat intolerance Hematologic/Lymphatic Hematologic/Lymphatic: Reports none; Denies anemia, easy bleeding or easy bruising Allergic/Immunologic Allergic/Immunologic ED: Denies as per HPI, none, lip swelling, mouth swelling, throat swelling, tongue swelling or hives EXAM Physical Exam Const Vital Signs: 08/31/21 12:56 Temperature 96.1 F L Temperature Source Temporal Pulse Rate 74 Respiratory Rate 16 Blood Pressure 168/78 H Blood Pressure Mean 108 Pulse Ox 99 Oxygen Delivery Method Room Air Positive well nourished and well developed General Appearance ED: well developed and NAD HEENT Reports TM's clear and moist mucous membranes normocephalic and atraumatic; Negative for trauma or tenderness Tympanic Membrane ED: Yes TM's clear Eyes PERRL and EOMs intact bilaterally General Eye ED: Negative for pale conjunctiva or scleral icterus Neck no lymphadenopathy, supple and no JVD General: Negative for tenderness Chest Wall inspection of chest normal and palpation of chest normal Chest: Negative for tenderness Resp normal respiratory effort and clear to auscultation bilaterally Effort and Inspection: Negative for respiratory distress or pain with movement Auscultation: Negative for rhonchi, wheezes or diminished lung sounds Cardio regular rate, regular rhythm, S1 normal heart sound, S2 normal heart sound and no murmurs Peripheral Pulses: pulses 2+ throughout GI normal to inspection, nondistended, normoactive bowel sounds, soft to palpation, non-distended and no masses GI Narrative: Patient has tenderness palpation over left lower quadrant with some guarding. There is no rebound, rigidity, or peritoneal signs. On digital rectal exam. No hemorrhoids or fissures noted. No masses palpated in the rectal vault. Patient did have gross blood noted on exam. Back/Spine no CVA tenderness and no thoracic nor lumbar tenderness Extremity normal to inspection General Extremety ED: Negative for edema General Extremity: Negative for edema Neuro oriented x3, CN's II-XII intact bilaterally, no sensory deficits noted and gait normal Sensorium / Orientation: awake, alert, oriented to person, oriented to place and oriented to time Motor Exam: strength 5/5 throughout and strength abnormal Psych mental status grossly normal Skin no rashes or lesions noted and no wounds MDM MDM MDM Narrative Medical decision making narrative: IV line established on arrival. Type and screen was ordered. CT scan of abdomen pelvis essentially unremarkable. Case will be discussed with hospitalist to evaluate patient for admission for observation and repeat H&H's. Lab Data Attestation: I reviewed the patient's lab results. Labs: Laboratory Results - last 24 hr 08/31/21 08/31/21 08/31/21 13:43 13:43 13:43 WBC 11.4 H RBC 3.69 L Hgb 11.2 L Hct 33.5 L MCV 90.8 MCH 30.4 MCHC 33.4 RDW Std Deviation 43.1 RDW Coeff of Xin 13.0 Plt Count 273 MPV 10.2 Immature Gran % (Auto) 0.400 Neut % (Auto) 66.7 Lymph % (Auto) 23.0 [place] % (Auto) 7.5 Eos % (Auto) 1.8 Baso % (Auto) 0.6 Absolute Neuts (auto) 7.6 Absolute Lymphs (auto) 2.62 Nucleated RBC % 0 Sodium 134 L Potassium 4.1 Chloride 105 Carbon Dioxide 26.0 Anion Gap 3 L BUN 19 H Creatinine 0.72 Estim Creat Clear Calc 67.27 Est GFR (MDRD) Af Amer 105 Est GFR (MDRD) Non-Af 87 BUN/Creatinine Ratio 26.5 H Glucose 225 H Lactic Acid Calcium 9.0 Blood Type O POSITIVE Antibody Screen NEGATIVE 08/31/21 13:43 WBC RBC Hgb Hct MCV MCH MCHC RDW Std Deviation RDW Coeff of Xin Plt Count MPV Immature Gran % (Auto) Neut % (Auto) Lymph % (Auto) [place] % (Auto) Eos % (Auto) Baso % (Auto) Absolute Neuts (auto) Absolute Lymphs (auto) Nucleated RBC % Sodium Potassium Chloride Carbon Dioxide Anion Gap BUN Creatinine Estim Creat Clear Calc Est GFR (MDRD) Af Amer Est GFR (MDRD) Non-Af BUN/Creatinine Ratio Glucose Lactic Acid 0.9 Calcium Blood Type Antibody Screen Radiography Diagnostic Testing: Clinical Impression(s) from Imaging Studies Abdomen/Pelvis CT 08/31/21 13:34 IMPRESSION: Fatty infiltration of the liver. Vascular calcifications of the branches of the hepatic artery. Mild degree of right-sided hydronephrosis and questionable tiny calculus at the right ureterovesical junction. Electronically Signed: Ming Louise MD at 15:09 EDT , Service support , Discharge Plan Triage Chief Complaint: GI Bleed ED Provider: Lennox Pike Dx/Rx/DC Orders Clinical Impression: Acute lower GI bleeding Prescriptions: No Action fluticasone propion-salmeterol [Wixela Inhub] 250-50 mcg/dose Blister With Device 1 puff inhalation Q12 Qty: 0 RF: 0 gabapentin 600 mg Tablet 600 mg PO QHS Qty: 0 RF: 0 loperamide 2 mg Capsule 4 mg PO 4X/DAY Qty: 0 RF: 0 polysaccharide iron complex [Ferrex 150] 150 mg iron Capsule 150 mg PO DAILYCM Qty: 0 RF: 0 acetaminophen 500 mg Tablet 1,000 mg PO Q6H PRN (Reason: Fever) Qty: 0 RF: 0 acetaminophen 500 mg Tablet 500 mg PO Q6H PRN PRN (Reason: Pain Score 1-5) Qty: 0 RF: 0 pantoprazole 40 mg Tablet,Delayed Release (Dr/Ec) 40 mg PO BID Qty: 0 RF: 0 gabapentin 300 mg Capsule 300 mg PO BID Qty: 0 RF: 0 aspirin 81 mg Tablet,Chewable 81 mg PO DAILY@0800 Qty: 0 RF: 0 nystatin [Nyamyc] 100,000 unit/gram Powder 1 applic topical TID Qty: 0 RF: 0 albuterol sulfate [Ventolin HFA] 90 mcg/actuation Hfa Aerosol Inhaler 1 puff inhalation Q4H PRN PRN (Reason: SHORTNESS OF BREATH) Qty: 0 RF: 0 ondansetron 4 mg Tablet,Disintegrating 4 mg PO Q6H PRN PRN (Reason: NAUSEA) Qty: 0 RF: 0 acidophilus-pectin, citrus 25 million cell -100 mg Tablet 1 tab PO TID Qty: 0 RF: 0 Creon 6,000-19,000 -30,000 unit Capsule,Delayed Release(Dr/Ec) 1 capsule PO TIDCM Qty: 0 RF: 0 menthol-zinc oxide [Calmoseptine] 0.44-20.6 % Ointment 1 applic topical BID Qty: 0 RF: 0 guaifenesin [Mucus Relief ER] 600 mg Tablet Extended Release 12hr 1,200 mg PO BID Qty: 0 RF: 0 Alfredo (with collagen) 7-7-1.5 gram Powder In Packet 1 packet PO BIDCM Qty: 0 RF: 0 tramadol 50 mg Tablet 50 mg PO Q6H PRN (Reason: Pain) RF: 0 melatonin 3 mg Tablet 3 mg PO QHS PRN (Reason: Insomnia) RF: 0 doxycycline monohydrate 100 mg capsule 100 mg PO BID Qty: 20 RF: 0 Primary Care Provider: Cody Billings Referrals: Cody Billings MD [Primary Care Provider] - Disposition Disposition: Acute Care [facility]
[2021-08-31 13:56] LABS: Absolute Lymphocyte Count 2.62 X10^3/uL (0.83-4.51); Absolute Neutrophil Count 7.6 X10^3/uL (2.0-7.7); Basophil# 0.07 X10^3/uL; Basophil% 0.6 % (0-1); Eosinophil# 0.21 X10^3/uL; Eosinophils% 1.8 % (0-5); Hematocrit 33.5 % (37-47); Hemoglobin 11.2 g/dL (12.0-15.0); Lymphocyte # 2.62 X10^3/ul (0.83-4.51); Mean Corp Hgb Conc 33.4 g/dL (32-36); Mean Corpuscular Hgb 30.4 pg (27.0-32.0); Mean Corpuscular Volume 90.8 fL (81-99); Mean Platelet Vol. 10.2 fl (6.2-12.0); Monocyte# 0.86 X10^3/uL; Monocyte% 7.5 % (0-10); NRBC Flagged by Analyzer 0 % (0-5); Neutrophil % 66.7 % (47-70); Platelet Count 273 K/mm3 (150-450); RBC Distribution Width SD 43.1 fl (35.1-43.9); Red Blood Count 3.69 M/mm3 (4.2-5.4); White Blood Count 11.4 K/mm3 (4.4-11.0)
[2021-08-31 14:09] LABS: Anion Gap 3 (5-15); BUN 19 mg/dL (7-18); BUN/Creat Ratio 26.5 RATIO (10-20); Chloride 105 mmol/L (98-107); Creatinine, Serum 0.72 mg/dL (0.55-1.02); EST Glomerular Filtration Rate 87 mL/min (>60); Est Glom Filt Rate - Afr Amer 105 mL/min (>60); Estimated Creatinine Clearance 67.27 ml/min; Glucose 225 mg/dL (74-106); Potassium 4.1 mmol/L (3.5-5.1); Sodium Level 134 mmol/L (136-145)
[2021-08-31] MEDS: 0.9% Normal Saline 1,000 ML 125 ML IV (14:11)
[2021-08-31 14:20] LABS: Lactic Acid 0.9 mmol/L (0.4-1.9)
--- NOTE | 2021-08-31 15:03 | HP.PCM.HOS_ITS ---
HPI - General General Date of Admission: 08/31/21 Date of Service: 08/31/21 Chief Complaint: Several episodes BRBPR, symptomatic LH/Dizziness. 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 Patient had been anticoagulated on Eliquis for history of DVT however her regimen had been completed. She in the past has required transfusion secondary to anemia. Work-up in the ED included T 96.1, heart rate 74, BP 168/78, respiratory rate 16, 99% on room air, CBC with WBC 11.4, hemoglobin 11.2 most recently noted 05/10/2111 with prior to this baseline appears 9-10 primarily, platelet 273 without marked shift, BMP with sodium 134, BUN/creatinine 19/0.72, glucose 225, lactic acid 0.9, stool guaiac positive for occult blood, CT abdomen and pelvis fatty infiltration of the liver, vascular calcifications of the branches of the hepatic artery, mild degree of right-sided hydronephrosis and questionable tiny calculus at the right ureterovesical junction. [facility] Medical History (Updated 08/31/21 @ 21:[address] 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 Home Medications albuterol sulfate [Ventolin HFA] 1 puff INHALATION Q4H PRN PRN #0 g 03/25/21 [Rx Last Taken Unknown] exsai-lnmy-ZdFEB-ohzztt-fi-zgm [Alfredo (with collagen)] 1 packet PO BIDCM #0 ea 03/25/21 [Rx Last Taken 08/30/21] aspirin 81 mg PO DAILY@0800 #0 tab 03/25/21 [Rx Last Taken 08/30/21] guaifenesin [Mucus Relief ER] 1,200 mg PO BID #0 tab 03/25/21 [Rx Last Taken 1 10/30/20] menthol-zinc oxide [Calmoseptine] 1 applic TOPICAL BID #0 g 03/25/21 [Rx Last Taken 08/30/21] nystatin [Nyamyc] 1 applic TOPICAL TID #0 g 03/25/21 [Rx Last Taken 08/30/21] ondansetron 4 mg PO Q6H PRN PRN #0 tab 03/25/21 [Rx Last Taken Unknown] tramadol 50 mg PO Q6H PRN 05/18/21 [History Last Taken Unknown] Constat Extra 2 cap PO/SL TID 08/31/21 [History Last Taken 08/30/21] Db-7 2 cap PO/SL BID 08/31/21 [History Last Taken 08/30/21] acidophilus-pectin, citrus 1 tab PO BID 08/31/21 [History Last Taken 08/30/21] cholecalciferol (vitamin D3) 250 mcg PO DAILY 08/31/21 [History Last Taken 08/30/21] loperamide 4 mg PO TID 08/31/21 [History Last Taken 08/30/21] pantoprazole 40 mg PO DAILY 08/31/21 [History Last Taken 08/30/21] quinine-vitamin E [Leg Cramp Relief] 3 cap PO DAILY 08/31/21 [History Last Taken 08/31/21] wheat dextrin [Benefiber (wheat dextrin)] 2 g PO BID 08/31/21 [History Last Taken 08/30/21] Allergy/AdvReac Type Severity Reaction Status Date / Time cefprozil Allergy Shortness Verified 08/31/21 12:59 of breath ceftriaxone Allergy Hives Verified 08/31/21 12:59 clindamycin Allergy Rash Verified 08/31/21 12:59 enalapril Allergy Other Verified 08/31/21 12:59 enoxaparin Allergy Rash Verified 08/31/21 12:59 heparin Allergy Rash Verified 08/31/21 12:59 levalbuterol Allergy Other Verified 08/31/21 12:59 morphine Allergy Shortness Verified 08/31/21 12:59 of breath Penicillins Allergy Anaphylaxis Verified 08/31/21 12:59 shellfish derived Allergy Anaphylaxis Verified 08/31/21 12:59 valsartan Allergy Other Verified 08/31/21 12:59 vancomycin Allergy Rash Verified 08/31/21 12:59 Family History (Updated 08/31/21 @ 21:[address] Elizabeth Dunne MD) Mother Cancer Lung CA w/ tobacco use history. Diabetes COPD (chronic obstructive pulmonary disease) Father Cancer Lung CA w/ tobacco use history. Diabetes COPD (chronic obstructive pulmonary disease) Heart disease Surgical History History of appendectomy History of eye surgery History of foot surgery History of lumpectomy History of tubal ligation Social History (Updated 08/31/21 @ 21:[address] Elizabeth Dunne MD) household members: none Smoking Status: Never smoker alcohol intake: never substance use type: does not use ROS ROS Narrative Admission Review of Systems: CONSTITUTIONAL: No weight loss, fever, chills, + weakness or fatigue. HEENT: + Lightheadedness, dizziness. Eyes: No visual loss, blurred vision, double vision or yellow sclerae. Ears, Nose, Throat: No hearing loss, sneezing, congestion, runny nose or sore throat. SKIN: No rash or itching, lesions, wounds. CARDIOVASCULAR: No chest pain, chest pressure or chest discomfort, palpitations, edema, orthopnea, syncopal events. RESPIRATORY: No shortness of breath, cough or sputum, wheezing, hemoptysis. GASTROINTESTINAL: + anorexia, abdominal cramping, diarrhea, hematochezia. GENITOURINARY: No dysuria, frequency, urgency or retention. NEUROLOGICAL: + Lightheadedness, dizziness, near syncope sensation. No headache, paralysis, ataxia, numbness or tingling in the extremities, focal weakness, change in bowel or bladder control, seizure. MUSCULOSKELETAL: No muscle, back pain, joint pain or stiffness. HEMATOLOGIC: + anemia, bleeding or bruising. LYMPHATICS: No enlarged nodes. No history of splenectomy. PSYCHIATRIC: No history of depression or anxiety. ENDOCRINOLOGIC: No reports of sweating, cold or heat intolerance. No polyuria or polydipsia. ALLERGIES: + history of asthma, hives, eczema or rhinitis. Vital Signs Vital Signs Vital Signs: 08/31/21 12:56 Temperature 96.1 F L Temperature Source Temporal Pulse Rate 74 Respiratory Rate 16 Blood Pressure 168/78 H Blood Pressure Mean 108 Pulse Ox 99 Oxygen Delivery Method Room Air Weight Weight: 150 lb Body Mass Index (BMI) 25.7 Physical Exam Narrative Physical Examination: General: Awake, alert, oriented x 3 and cooperative, seated upright in the ED bed in no apparent distress, fatigued. Skin: Normal color, normal turgor, no icterus, no cyanosis. HEENT: AT/NC, EOMI, PERRLA, dry MM, no carotid bruits or JVD noted. Lungs: Diminished, greater bases, appropriate effort, no rales, ronchi or wheezing. Heart: Regular rate and rhythm; no gallop, rub audible. Abdomen: Soft, overweight, mild generalized discomfort with palpation, worse bilateral lower quadrants, no obvious distention, hyperactive bowel sounds, no obvious evidence of HSM Extremities: No cyanosis, clubbing, or edema. Neurological: Patient awake, alert, oriented as noted, cognitive function intact; pupils equally reactive to light and accommodation, cranial nerves II- XII grossly normal, moving all 4 extremities, no focal deficits, strength moderately severely globally [place] secondary to acute presentation and complaints. Psychiatric: Affect appears fatigued, no acute evidence of depressive or anxiety feelings. Results Lab / Micro Data Result Diagrams: 08/31/21 19:42 08/31/21 13:43 Labs: Laboratory Results - last 24 hr 08/31/21 13:43: WBC 11.4 H, RBC 3.69 L, Hgb 11.2 L, Hct 33.5 L, MCV 90.8, MCH 30.4, MCHC 33.4, RDW Std Deviation 43.1, RDW Coeff of Xin 13.0, Plt Count 273, MPV 10.2, Immature Gran % (Auto) 0.400, Neut % (Auto) 66.7, Lymph % (Auto) 23.0, [place] % (Auto) 7.5, Eos % (Auto) 1.8, Baso % (Auto) 0.6, Absolute Neuts (auto) 7.6, Absolute Lymphs (auto) 2.62, Nucleated RBC % 0 08/31/21 13:43: Sodium 134 L, Potassium 4.1, Chloride 105, Carbon Dioxide 26.0, Anion Gap 3 L, BUN 19 H, Creatinine 0.72, Estim Creat Clear Calc 67.27, Est GFR (MDRD) Af Amer 105, Est GFR (MDRD) Non-Af 87, BUN/Creatinine Ratio 26.5 H, Glucose 225 H, Calcium 9.0 08/31/21 13:43: Lactic Acid 0.9 Micro: Microbiology 08/31/21 13:45 Stool Stool Occult Blood (SONG) - Final Occult Blood Positive Assessment & Plan Assessment/Plan (1) Acute lower GI bleeding: PLAN: The patient is a 66 y/o F w/ PMHx: PAD, Hx DVT, 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 1. Acute GI Bleed with Acute on Chronic Anemia/Fe Deficiency complicated by Chronic Diarrhea following C-difficile infection (notes intention for evaluation outpatient for fecal transplant), Possible Diverticular Bleed: ED already requested C-difficile testing. We will admit to medical surgical floor, maintain on IVFs, obtain serial H+H q 4 hours, type and screen already obtained per ED physician, will maintain on IV PPI, will allow clears only with n.p.o. status after midnight pending GI evaluation, consulted. Maintain on fall precautions especially given associated lightheadedness/dizziness. 2. Chronic diabetic left foot ulcer: Following with Dr. 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 Hugo. Wound RN consultation requested. 3. Chronic asthma with allergic rhinitis: Will maintain on oxygen with wean as tolerated to home oxygen supplementation, hold home inhalers in interim placed on ATC duonebs, PRN albuterol, HOB, IS parameters. 4. PAD: Holding aspirin therapy given presentation as noted above, continue aggressive diabetic treatment, from current list not on any statin therapy, following with Dr. Hugo with vascular surgery with most recent arterial Doppler 02/05/2021 with no stenosis with triphasic waveforms as noted, encourage continued outpatient follow-up. 5. Diabetes mellitus type II: Clarify regimen, will obtain hemoglobin A1c, given presentation as noted above will maintain on clear liquid with n.p.o. status after midnight, accu checks w/ ISS. 6. History of prior DVT: Patient previously on Eliquis, completed therapy, had post-op DVT, taken off secondary to severe epistaxis. 7. GERD: We will continue patient on PPI. 8. DVT prophylaxis: SCDs, hold any chemoprophylaxis given presentation as noted above. 9. CODE status: Patient BABAR is her Sister Jackie and living will is currently in place. Discussed CODE status at length including difference between FULL code , DNR-CCA and DNR-CC status. Following discussions about the differences in these status, requested Full Code status. Advanced Care Planning Face to Face Time: 16 minutes. Charges/Coding Visit Charges OBSV E&M: 59081 Initial observation care L3 Procedures Hospitalists Procedures: 82223 Advncd Care Plan 30 Min
[2021-08-31 15:41] VITALS: BP 150/93; PULSE 70; RESP 14; TEMP 36.7; O2SAT 98
[2021-08-31 16:24] LABS: Phosphorus 3.3 mg/dL (2.5-4.9)
[2021-08-31 16:39] VITALS: BMI 24.9
[2021-08-31 17:29] VITALS: BP 159/98; PULSE 73; RESP 18; TEMP 36.3; O2SAT 99
[2021-08-31 17:31] LABS: Bedside Glucose 192 mg/dL (70-110)
[2021-08-31 17:39] LABS: Mucous, Urine 0 SEEN /hpf (<or=2+); Red Blood Cells-Urine 0 SEEN /hpf (0-5); Squamous Epithelial Cells - UA 0 SEEN /hpf (5-10)
[2021-08-31] MEDS: Insulin Lispro 100 UNIT/ML INSULN.PEN SC ×2 (17:40→22:35)
[2021-08-31] MEDS: Juven (unflavored) Packet 1 PACKET PO (17:40)
[2021-08-31 18:01] LABS: Color, Urine Straw (Yellow); Glucose, Dipstick Normal (Normal); Ketone-Dipstick Negative (Negative); Leukocyte Esterase-Dipstick 500 /ul (Negative); Nitrite-Dipstick Negative (Negative); Occult Blood-Urine 25 /ul (Negative); Protein-Dipstick 15 mg/dl (Negative); Urine Bilirubin Dipstick Negative (Negative); Urine Clarity Sl. Cloudy (Clear); Urine Urobilinogen Normal (Normal)
[2021-08-31 18:11] LABS: Bacteria 1+ /hpf (None Seen); White Blood Cells 5-10 SEEN /hpf (0-5)
[2021-08-31 19:56] VITALS: O2SAT 99
[2021-08-31 20:06] LABS: Hematocrit 30.2 % (37-47)
[2021-08-31] MEDS: Menthol/Lanolin/Calamine/Znox 113 GM Tube 1 APPLIC TOPICAL (22:05)
[2021-08-31] MEDS: Nystatin Powder 15gm Bottle 1 APPLIC TOPICAL (22:06)
[2021-08-31] MEDS: 0.9% Normal Saline 1,000 ML 100 ML IV (22:06)
[2021-08-31] MEDS: Loperamide 2 MG Capsule 4 MG PO (22:06)
[2021-08-31] MEDS: Pantoprazole Sodium 40 MG Tablet PO (22:07)
[2021-08-31 22:40] LABS: Bedside Glucose 163 mg/dL (70-110)
[2021-08-31 23:10] VITALS: BP 146/75; PULSE 68; RESP 16; TEMP 36.7; O2SAT 100
[2021-08-31 23:50] LABS: Hematocrit 31.9 % (37-47); Hemoglobin 10.6 g/dL (12.0-15.0)
[2021-09-01] VITALS (7 sets, daily range): BP systolic 99–183; BP diastolic 70–88; PULSE 62–80; RESP 16–18; TEMP 36.7–37.3; O2SAT 97–99
[2021-09-01 05:39] LABS: Absolute Lymphocyte Count 4.07 X10^3/uL (0.83-4.51); Absolute Neutrophil Count 4.6 X10^3/uL (2.0-7.7); Basophil# 0.07 X10^3/uL; Basophil% 0.7 % (0-1); Eosinophil# 0.43 X10^3/uL; Eosinophils% 4.3 % (0-5); Hematocrit 31.4 % (37-47); Hemoglobin 10.4 g/dL (12.0-15.0); Lymphocyte # 4.07 X10^3/ul (0.83-4.51); Lymphocyte % 40.8 % (19-41); Mean Corp Hgb Conc 33.1 g/dL (32-36); Mean Corpuscular Hgb 30.1 pg (27.0-32.0); Mean Platelet Vol. 10.4 fl (6.2-12.0); Monocyte# 0.79 X10^3/uL; Monocyte% 7.9 % (0-10); NRBC Flagged by Analyzer 0 % (0-5); Neutrophil # 4.59 X10^3/uL (2.7-7.7); Neutrophil % 46.1 % (47-70); Platelet Count 269 K/mm3 (150-450); RBC Distribution Width CV 12.9 % (11.6-14.6); RBC Distribution Width SD 42.9 fl (35.1-43.9); Red Blood Count 3.45 M/mm3 (4.2-5.4)
[2021-09-01] MEDS: Nystatin Powder 15gm Bottle 1 APPLIC TOPICAL ×2 (05:54→21:07)
[2021-09-01] MEDS: Loperamide 2 MG Capsule 4 MG PO (05:54)
[2021-09-01] MEDS: 0.9% Normal Saline 1,000 ML 100 ML IV ×2 (05:59→16:19)
[2021-09-01 06:07] LABS: ALB/GLOB Ratio 0.4 RATIO (0.9-2.4); AST(SGOT) 18 U/L (15-37); Alanine Aminotransfer ALT/SGPT 18 U/L (13-56); Albumin, Serum 2.2 g/dL (3.2-5.0); Alkaline Phosphatase 128 U/L (45-117); Anion Gap 6 (5-15); BUN 17 mg/dL (7-18); BUN/Creat Ratio 28.4 RATIO (10-20); Calcium,Total 8.4 mg/dL (8.5-10.1); Chloride 107 mmol/L (98-107); EST Glomerular Filtration Rate 107 mL/min (>60); Est Glom Filt Rate - Afr Amer 129 mL/min (>60); Estimated Creatinine Clearance 80.72 ml/min; Globulin 5.4 g/dL (2.2-4.2); Glucose 121 mg/dL (74-106); Potassium 3.7 mmol/L (3.5-5.1); Protein, Total 7.6 g/dL (6.4-8.2); Sodium Level 139 mmol/L (136-145)
--- NOTE | 2021-09-01 07:33 | PN.HOSP_ITS ---
Subjective Subjective Patient states she had C. difficile 2 episodes 1 month apart about 6 years ago and was managed by Dr. Richards. She also had EGD and colonoscopy about 6 years ago. She was told that she might need fecal transplant. She also had one oral vancomycin last one, 3 months ago, reason unclear. She was told by Dr. May that she does not have Crohn's disease ulcerative colitis or celiac disease. She still has chronic diarrhea but started having blood Since Monday night. It is painless bleeding without abdominal cramps or pain or rectal pain.No fever. She usually has low blood pressure, generally in 90s but yesterday At home her blood pressure was in 70s. Currently she is normotensive. Objective Data Objective Data Vital Signs: Vital Signs Temp Pulse Resp BP Pulse Ox 98.5 F 71 16 145/76 H 99 09/01/21 05:10 09/01/21 05:10 09/01/21 05:10 09/01/21 05:10 09/01/21 05:10 Oxygen Delivery Method Room Air Weight: 149 lb 14.629 oz Body Mass Index (BMI) 24.9 Intake & Output: Intake and Output for Last 24 Hours 08/30/21 08/31/21 09/01/21 23:59 23:59 23:59 Intake Total 1120 / 1220 888.33 / 888.33 Output Total 600 / 600 Balance 1120 / 1220 288.33 / 288.33 Medical Nutrition Assessment Dietitian: Malnutrition Criteria Met Start: 08/31/21 17:44 Freq: Status: Active Protocol: Document 08/31/21 17:44 RMA (Rec: 08/31/21 17:44 RMA [id number]) Nutrition Malnutrition Evidence of Malnutrition Exists Yes Malnutrition (severe): Chronic Evidenced By Suboptimal Energy Intake ( Severe),Weight Loss (Severe) Intake Problem Increased Nutrient Needs (specify) Etiology for protein related to wound healing Signs/Symptoms as evidenced by L foot chronic diabetic ulcer Status Active Problem Clinical Problem Chronic Disease or Condition Related Malnutrition Etiology Severe protein/calorie malnutrition in the context of chronic disease related to altered GI function/diarrhea and inadequate oral intake Signs/Symptoms as evidenced by ~9% wt loss x 4 months and PO meeting less than 50-75% estimated nutrition needs Status Active Problem 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 Dietitian 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s/Changes Advance diet as medically able to Carbohydrate-Controlled ( no caloric restriction) w/ 120ml glucerna shake TID at meals. Continue Alfredo BID for wound healing as ordered. Lab / Micro Data Result Diagrams: 09/01/21 05:20 09/01/21 05:20 Labs: Laboratory Results - last 24 hr 08/31/21 13:43: Blood Type O POSITIVE, Antibody Screen NEGATIVE 08/31/21 13:43: WBC 11.4 H, RBC 3.69 L, Hgb 11.2 L, Hct 33.5 L, MCV 90.8, MCH 30.4, MCHC 33.4, RDW Std Deviation 43.1, RDW Coeff of Xin 13.0, Plt Count 273, MPV 10.2, Immature Gran % (Auto) 0.400, Neut % (Auto) 66.7, Lymph % (Auto) 23.0, Campbell % (Auto) 7.5, Eos % (Auto) 1.8, Baso % (Auto) 0.6, Absolute Neuts (auto) 7.6, Absolute Lymphs (auto) 2.62, Nucleated RBC % 0 08/31/21 13:43: Sodium 134 L, Potassium 4.1, Chloride 105, Carbon Dioxide 26.0, Anion Gap 3 L, BUN 19 H, Creatinine 0.72, Estim Creat Clear Calc 67.27, Est GFR (MDRD) Af Amer 105, Est GFR (MDRD) Non-Af 87, BUN/Creatinine Ratio 26.5 H, Glucose 225 H, Calcium 9.0 08/31/21 13:43: Lactic Acid 0.9 08/31/21 13:43: Phosphorus 3.3, Magnesium 2.0 08/31/21 17:00: Urine Color Straw, Urine Clarity Sl. Cloudy, Urine pH 7.0, Ur Specific [place] 1.010, Urine Protein 15 H, Urine Glucose (UA) Normal, Urine Ketones Negative, Urine Occult Blood 25 H, Urine Nitrite Negative, Urine Bilirubin Negative, Urine Urobilinogen Normal, Ur Leukocyte Esterase 500 H, Urine RBC 0 SEEN, Urine WBC 5-10 SEEN, Ur Squamous Epith Cells 0 SEEN, Urine Bacteria 1+, Urine Mucus 0 SEEN 08/31/21 17:25: POC Glucose 192 H 08/31/21 19:42: Hgb 10.0 L, Hct 30.2 L 08/31/21 22:34: POC Glucose 163 H 08/31/21 23:40: Hgb 10.6 L, Hct 31.9 L 09/01/21 05:20: WBC 10.0, RBC 3.45 L, Hgb 10.4 L, Hct 31.4 L, MCV 91.0, MCH 30.1, MCHC 33.1, RDW Std Deviation 42.9, RDW Coeff of Xin 12.9, Plt Count 269, MPV 10.4, Immature Gran % (Auto) 0.200, Neut % (Auto) 46.1 L, Lymph % (Auto) 40.8, Campbell % (Auto) 7.9, Eos % (Auto) 4.3, Baso % (Auto) 0.7, Absolute Neuts (auto) 4.6, Absolute Lymphs (auto) 4.07, Nucleated RBC % 0 09/01/21 05:20: Sodium 139, Potassium 3.7, Chloride 107, Carbon Dioxide 26.0, Anion Gap 6, BUN 17, Creatinine 0.60, Estim Creat Clear Calc 80.72, Est GFR (MDRD) Af Amer 129, Est GFR (MDRD) Non-Af 107, BUN/Creatinine Ratio 28.4 H, Glucose 121 H, Calcium 8.4 L, Total Bilirubin 0.40, AST 18, ALT 18, Alkaline Phosphatase 128 H, Total Protein 7.6, Albumin 2.2 L, Globulin 5.4 H, Albumin/Globulin Ratio 0.4 L Micro: Microbiology 08/31/21 13:45 Stool Stool Occult Blood (SONG) - Final Occult Blood Positive Radiography Diagnostic Testing: Radiology Impression Abdomen/Pelvis CT 08/31/21 13:34 IMPRESSION: Fatty infiltration of the liver. Vascular calcifications of the branches of the hepatic artery. Mild degree of right-sided hydronephrosis and questionable tiny calculus at the right ureterovesical junction. Electronically Signed: Ming Louise MD at 15:09 EDT , Service support , Physical Exam Narrative General: Alert, Oriented x3, Cooperative HEENT: Atraumatic, PERRLA, EOMI, Normocephalic Oral: No Gingival or Mucosal Lesions/ Ulcerations Neck: Supple, No JVD, Negative Carotid Bruits Lungs: Air entry diminished in bilateral lung bases. No crepitation/rhonchi Cardiovascular: Regular rate, Regular Rhythm, Normal S1, Normal S2, Systolic murmur LSB Abdomen:Tenderness present over right and left lower quadrants. Bowel Sounds Present, Soft, Non-Distended. No palpable mass : No renal angle tenderness. No suprapubic tenderness. Extremities: No edema, Capillary Refill Less than 3 Seconds Skin: No rashes, No breakdown Musculoskeletal: No Tenderness to Palpation of Joints or Extremities Neurological: Cranial nerves II-XII grossly intact, DTR 2+/4 and Symmetrical, Neuro grossly intact Psych/Mental Status: Normal Affect, Appropriate. Assessment & Plan Assessment/Plan (1) Acute lower GI bleeding: PLAN: The patient is a 66 y/o F with multiple comorbidities admitted with lower abdominal discomfort cramping associated with dizziness and lightheadedness and lower GI bleed. 1. Acute lower GI bleed with history of C. difficile in the past: Patient has been evaluated by Dr. May in the past and was told that she does not have Crohn's disease, ulcerative colitis or celiac disease. GI has been consulted. H&H is stable. PT and OT. Blood pressure 164/74 2. Chronic diabetic left foot ulcer: Following with Dr. 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 The most recent arterial Doppler 02/05/2021 with no stenosis noted with triphasic waveforms, following with Dr. Hugo. Wound RN consultation requested. 3. Chronic asthma with allergic rhinitis: on oxygen with wean as tolerated to home oxygen supplementation, on inhaler as needed. No exacerbation. 4. P Diabetes mellitus type II: Leukosis controlled. A1c 7.6%. 6. History of prior DVT: Patient was taken off Eliquis about 2 to 3 months ago after she had epistaxis. 7. GERD: We will continue patient on PPI. 8. DVT prophylaxis: SCDs, hold any chemoprophylaxis due to GI hemorrhage 9. CODE status: Patient BABAR is her Sister Jackie and living will is currently in place. Full code. Charges/Coding Visit Charges Inpatient E&M: 67444 Subs Hosp L2
[2021-09-01 07:56] LABS: Hemoglobin A1c 7.6 % (3.8-5.6)
[2021-09-01 09:35] LABS: Bedside Glucose 124 mg/dL (70-110)
[2021-09-01 12:10] LABS: Bedside Glucose 139 mg/dL (70-110)
[2021-09-01] MEDS: Pantoprazole Sodium 40 MG Tablet PO (12:37)
[2021-09-01] MEDS: Menthol/Lanolin/Calamine/Znox 113 GM Tube 1 APPLIC TOPICAL ×2 (12:38→21:07)
--- NOTE | 2021-09-01 12:51 | CASEMGMT ---
RN CM Assessment Introduced role of RN CM to patient. Patient is alert, oriented and able to participate in RN CM Assessment. Care providers, pharmacy, and demographics verified. Admit Dx: LGIB Re-Admit: No Barriers/Issues: None. Lt partial foot amputation0-Patient just moved into [facility] x 3 weeks ago. PCP: Specialists: Preferred Pharmacy: Insurance: Rx Benefit: LNOK: LW/HPOA: Living Arrangements: ADL?s: Transportation: DME: HHC: SNF: Goal: DC PLAN:
--- NOTE | 2021-09-01 12:54 | CASEMGMT ---
RN CM Assessment Introduced role of RN CM to patient. Patient is alert, oriented and able to participate in RN CM Assessment. Care providers, pharmacy, and demographics verified. Admit Dx: LGIB Re-Admit: No Barriers/Issues: Patient moved into [facility] x 3weeks ago. S/p left partial foot amputation- states has not been weight bearing on it and has been chair bound. States hoping weight bearing in the beginning of the year and outpatient PT. Would like HH PT until that transition. Over the past 6 months has been at [facility] and [facility]. Lives alone- New of 1 year plan to move into apartment with patient. Provided resources on [facility], [facility], [facility], private pay aides and [facility]. 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 Patient has motorized scooter and van with handicap access which is currently at hospital that dtr drove her here with. Plan to drive self home or dtr Prabha or dtr Cady Serra. States makes too much to qualify for CAROLYN. PCP: Cody Billings Specialists: Neuro in [place], Neuro Ophth- Rika, GI- Susie, Pulrogelio- Wilder Preferred Pharmacy: [facility] Insurance: Mcr A/B, MMO Rx Benefit: Yes LNOK: Dtr Prabha Welch, Sister Jackie Silverman LW/HPOA: MOLST and HPOA on file at [facility]. MOLST- 02/03/21- FC, Trial. HPOA- Sister Jackie Silverman Living Arrangements: Lives alone in gnd level apartment, handicap accessible. No steps to enter. See above note. ADL?s: Chair bound since foot amputation. Has motorized scooter. Ind w/Adls Transportation: Patient drives. Handicap van here at hospital. See above note. DME: Motorized scooter, Glucometer, Pulse Ox HHC: None SNF: [facility] Goal: Home w/ HH PT- [facility] HH preference. Resources provided- see above note. DC PLAN: Home with HH PT ([facility]). No further Anticipated needs identified at this time. MAIK Cutler.
--- NOTE | 2021-09-01 13:51 | CASEMGMT ---
LUZ ELENA Bonds at [facility] to make referral for PT for pt, she will review and notify this RN CM of acceptance.
--- NOTE | 2021-09-01 14:31 | CHAPLAIN ---
Type of Pastoral Visit _x__ Initial Visit ___ Follow-up Visit ___ On-call Visit ___ General Patient Visit ___ Spiritual Assessment ___ Family Conference ___ Bereavement ___ Rapid Response ___ Code Blue ___ Other (describe below) Pastoral Care Referral From _x__ Patient ___ Family ___ Nurse ___ Physician ___ Management Psychologist ___ Paste Mixing Supervisor ___ Other (describe below) Sacrament/Intervention _x__ Active listening ___ Anointing ___ Caodaism ___ Bereavement ___ Communion _x__ Dang exploration ___ _x__ Life review _x__ Prayer ___ Reconciliation ___ Sacrament of Sick _x__ Supportive presence ___ Wedding ___ Other (describe below) Pastoral Comments patient is known by this checker and packer; pt requests visit and spiritual care; pt gives long explanation of her situation and need; pt decided not to name one family member to visit as too hard to decide and besides I need the calm and rest here; pt has been in hospitals and rehabs for recent months but expresses hopefulness for good recovery; pt welcomes prayer and requests a follow up visit tomorrow
[2021-09-01 17:00] LABS: Bedside Glucose 115 mg/dL (70-110)
[2021-09-01] MEDS: hydrALAZINE 20 MG/ML Vial 10 MG IV (17:36)
--- NOTE | 2021-09-01 19:01 | EX.PCM.CON.G ---
HPI Consult Data Date of Consult: 09/01/21 HPI Narrative HPI Narrative: RED PRICE, is a 66 F PMHx: PAD, Hx DVT, Diabetes mellitus type II with chronic L foot wound, Hx Benign brain tumor, Chronic diarrhea, Asthma, Chronic migraines, GERD, Chronic anemia/Fe deficiency anemia. She presented to the ED with multiple episodes of bright red blood per rectum. She does have a history of diverticular disease and significant diarrhea after having C. difficile in the past. She developed C. difficile approximately 6 years ago. She was successfully treated with vancomycin however she has had diarrhea ever since. She underwent evaluation approximately 6 years ago with no reason or etiology for her diarrhea. She says she is scared to leave the house because she has so much diarrhea. She really only gets the diarrhea after she eats so therefore she does not eat. She is not currently on anticoagulation because of history of nosebleeds. She was on Eliquis after undergoing a below the knee amputation from a Spider bite. She still having some cramping but no bleeding at this time. [facility] Medical History (Updated 09/01/21 @ 19:[address] 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 polyneuropathy Home Medications albuterol sulfate [Ventolin HFA] 1 puff INHALATION Q4H PRN PRN #0 g 03/25/21 [Rx Last Taken Unknown] [id number]-[id number]-VjOGX-nmapne-wy-idb [Alfredo (with collagen)] 1 packet PO BIDCM #0 ea 03/25/21 [Rx Last Taken 08/30/21] aspirin 81 mg PO DAILY@0800 #0 tab 03/25/21 [Rx Last Taken 08/30/21] guaifenesin [Mucus Relief ER] 1,200 mg PO BID #0 tab 03/25/21 [Rx Last Taken 08/30/21] menthol-zinc oxide [Calmoseptine] 1 applic TOPICAL BID #0 g 03/25/21 [Rx Last Taken 08/30/21] nystatin [Nyamyc] 1 applic TOPICAL TID #0 g 03/25/21 [Rx Last Taken 08/30/21] ondansetron 4 mg PO Q6H PRN PRN #0 tab 03/25/21 [Rx Last Taken Unknown] tramadol 50 mg PO Q6H PRN 05/18/21 [History Last Taken Unknown] Constat Extra 2 cap PO/SL TID 08/31/21 [History Last Taken 08/30/21] Db-7 2 cap PO/SL BID 08/31/21 [History Last Taken 08/30/21] acidophilus-pectin, citrus 1 tab PO BID 08/31/21 [History Last Taken 08/30/21] cholecalciferol (vitamin D3) 250 mcg PO DAILY 08/31/21 [History Last Taken 08/30/21] loperamide 4 mg PO TID 08/31/21 [History Last Taken 08/30/21] pantoprazole 40 mg PO DAILY 08/31/21 [History Last Taken 08/30/21] quinine-vitamin E [Leg Cramp Relief] 3 cap PO DAILY 08/31/21 [History Last Taken 08/31/21] wheat dextrin [Benefiber (wheat dextrin)] 2 g PO BID 08/31/21 [History Last Taken 08/30/21] Allergy/AdvReac Type Severity Reaction Status Date / Time cefprozil Allergy Shortness Verified 08/31/21 12:59 of breath ceftriaxone Allergy Hives Verified 08/31/21 12:59 clindamycin Allergy Rash Verified 08/31/21 12:59 enalapril Allergy Other Verified 08/31/21 12:59 enoxaparin Allergy Rash Verified 08/31/21 12:59 heparin Allergy Rash Verified 08/31/21 12:59 levalbuterol Allergy Other Verified 08/31/21 12:59 morphine Allergy Shortness Verified 08/31/21 12:59 of breath Penicillins Allergy Anaphylaxis Verified 08/31/21 12:59 shellfish derived Allergy Anaphylaxis Verified 08/31/21 12:59 valsartan Allergy Other Verified 08/31/21 12:59 vancomycin Allergy Rash Verified 08/31/21 12:59 Family History (Updated 08/31/21 @ 21:[address] Elizabeth Dunne MD) Mother Cancer Lung CA w/ tobacco use history. Diabetes COPD (chronic obstructive pulmonary disease) Father Cancer Lung CA w/ tobacco use history. Diabetes COPD (chronic obstructive pulmonary disease) Heart disease Surgical History History of appendectomy History of eye surgery History of foot surgery History of lumpectomy History of tubal ligation Social History (Updated 08/31/21 @ 21:[address] Elizabeth Dunne MD) household members: none Smoking Status: Never smoker alcohol intake: never substance use type: does not use ROS Review of Systems ROS Unobtainable: other Constitutional Constitutional: Denies fatigue, fever(s), poor appetite, weight gain or weight loss ENT HEENT: Denies mouth lesions Cardiovascular Cardiovascular: Denies abdominal bloating, abdominal edema or abdominal pain Respiratory/Chest Respiratory/Chest: Denies change in mental status, change in phlegm color, chest congestion or chest tightness Gastrointestinal Gastrointestinal: Denies belching, bloating, change in bowel habits, change in stool character, chewing difficulty, coffee ground emesis, constipation, cramping, diarrhea, dyspepsia, dysphagia, early satiety, excessive flatus, fecal incontinence, heartburn, hematemesis, hematochezia, hemorrhoids, loose stools, melena, nausea, odynophagia, rectal bleeding, tenesmus, vomiting or weight changes Genitourinary Genitourinary: Denies abdominal discomfort, burning urination or itching Musculoskeletal Musculoskeletal: Reports as per HPI; Denies muscle weakness or myalgias Integumentary Integumentary: Denies jaundice Neurologic Neurologic: Denies lack of coordination or weakness Psychiatric Psychiatric: Denies confusion, depression, memory loss, mood swings, paranoia or suicidal ideation Endocrine Endocrinology: Denies systems reviewed and no addt'l complaints, except as documented Hematologic/Lymphatic Hematologic/Lymphatic: Denies anemia, easy bleeding, easy bruising or lymphadenopathy Allergic/Immunologic Allergic/Immunologic: Denies systems reviewed and no addt'l complaints, except as documented Physical Exam Const alert General Appearance: cooperative Orientation / Consciousness: oriented to person HEENT hearing grossly normal bilaterally Head and Scalp: normal to inspection Face and Sinus: face symmetric Nose: external nose normal Mouth: oral and palatal mucosa normal Eyes conjunctivae normal General Eye: normal appearance of both eyes Neck full ROM General: normal visual inspection Lymph Lymphatic: no lymphadenopathy noted Chest inspection of chest normal and palpation of chest normal Chest: symmetrical chest wall rise Resp normal respiratory effort Effort and Inspection: able to speak in complete sentences Cardio regular rate GI non-distended Percussion: normal to percussion Rectal Exam: deferred Neuro Speech: speech normal Gait (Neuro): normal gait Medical Records Data Medical Nutrition Assessment Dietitian: Malnutrition Criteria Met Start: 08/31/21 17:44 Freq: Status: Active Protocol: Document 08/31/21 17:44 RMA (Rec: 08/31/21 17:44 RMA [id number]) Nutrition Malnutrition Evidence of Malnutrition Exists Yes Malnutrition (severe): Chronic Evidenced By Suboptimal Energy Intake ( Severe),Weight Loss (Severe) Intake Problem Increased Nutrient Needs (specify) Etiology for protein related to wound healing Signs/Symptoms as evidenced by L foot chronic diabetic ulcer Status Active Problem Clinical Problem Chronic Disease or Condition Related Malnutrition Etiology Severe protein/calorie malnutrition in the context of chronic disease related to altered GI function/diarrhea and inadequate oral intake Signs/Symptoms as evidenced by ~9% wt loss x 4 months and PO meeting less than 50-75% estimated nutrition needs Status Active Problem 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 Dietitian 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s/Changes Advance diet as medically able to Carbohydrate-Controlled ( no caloric restriction) w/ 120ml glucerna shake TID at meals. Continue Alfredo BID for wound healing as ordered. Lab / Micro Data Result Diagrams: 09/01/21 05:20 09/01/21 05:20 Labs: Laboratory Results - last 24 hr 08/31/21 19:42: Hgb 10.0 L, Hct 30.2 L 08/31/21 22:34: POC Glucose 163 H 08/31/21 23:40: Hgb 10.6 L, Hct 31.9 L 09/01/21 05:20: WBC 10.0, RBC 3.45 L, Hgb 10.4 L, Hct 31.4 L, MCV 91.0, MCH 30.1, MCHC 33.1, RDW Std Deviation 42.9, RDW Coeff of Xin 12.9, Plt Count 269, MPV 10.4, Immature Gran % (Auto) 0.200, Neut % (Auto) 46.1 L, Lymph % (Auto) 40.8, [place] % (Auto) 7.9, Eos % (Auto) 4.3, Baso % (Auto) 0.7, Absolute Neuts (auto) 4.6, Absolute Lymphs (auto) 4.07, Nucleated RBC % 0 09/01/21 05:20: Sodium 139, Potassium 3.7, Chloride 107, Carbon Dioxide 26.0, Anion Gap 6, BUN 17, Creatinine 0.60, Estim Creat Clear Calc 80.72, Est GFR (MDRD) Af Amer 129, Est GFR (MDRD) Non-Af 107, BUN/Creatinine Ratio 28.4 H, Glucose 121 H, Calcium 8.4 L, Total Bilirubin 0.40, AST 18, ALT 18, Alkaline Phosphatase 128 H, Total Protein 7.6, Albumin 2.2 L, Globulin 5.4 H, Albumin/Globulin Ratio 0.4 L 09/01/21 05:20: Hemoglobin A1c 7.6 H 09/01/21 05:58: POC Glucose 124 H 09/01/21 12:05: POC Glucose 139 H 09/01/21 16:50: POC Glucose 115 H Micro: Microbiology 09/01/21 12:00 Nasal Secretion SARS-CoV-2 Antigen (Rapid) - Final Assessment & Plan Assessment/Plan (1) Acute lower GI bleeding: PLAN: , The differential diagnosis for her lower GI bleed would include a diverticular bleed, versus ischemic colitis because she did drop her blood pressure AVM, less likely upper GIB rapid transit or small bowel bleed.She should undergo a colonoscopy with evaluation of the lower GI tract to see if there is any etiology of her lower GI bleeding that could be treated endoscopically. (2) Diarrhea: PLAN: Differential diagnosis for diarrhea would be postinfectious IBS, small bacterial overgrowth, accelerated gastrocolic reflex She should undergo an upper endoscopy with cultures and sensitivity from duodenal aspirates biopsies of the duodenum possible jejunum and biopsies of the stomach and esophagus. She should also undergo gastric emptying study to see if she is having Dumping. Charges/Coding Visit Charges Inpatient E&M: 23960 Init Hosp L3
--- NOTE | 2021-09-01 19:27 | PCS.PANDOC ---
PANDEMIC DOCUMENTATION INITIATED: Date: 06/14/2021 Time: 190
[2021-09-01] MEDS: Polyethylene Glycol 3350 BOWEL PREP PO (20:57)
[2021-09-01] MEDS: Bisacodyl 5 MG Tablet 20 MG PO (20:58)
[2021-09-01 22:20] LABS: Bedside Glucose 142 mg/dL (70-110)
[2021-09-02] VITALS (12 sets, daily range): BP systolic 93–169; BP diastolic 56–82; PULSE 62–74; RESP 16–20; TEMP 36.5–37.1; O2SAT 95–99; BMI 24.7
--- NOTE | 2021-09-02 | EGD_PTH ---
PATIENT: RED PRICE LOC: MS3 U#:[id number] AGE/SX: 66/F ROOM: [facility] [place] RE09/01/[address]: Dr. Toño Salas MD : [id number] BED: 1 DIS: 09/04/2021 SPEC #: [id number] RECD: 09/02/21 13:30 STATUS: MALIA SOLORIO #: [id number] [place]: 09/02/21 00:[address]: Bandar Melissa DEPT: SURGICAL PATHOLOGY RECD BY: Daniel Tesfaye ENTERED: 09/03/21 09:14 SP TYPE: EGD BIOPSY OTHR DR: MD Dr. Cody Vasquez MD Dr. Prakash Chand, MD Tissues: A - Duodenum, NOS B - Ileum, NOS C - Gastric mucous membrane D - COLON BIOPSY Procedures: Surgery Specimen Level IV Comments: @ Ordering doctor for SUIV edited from to @ by DON at 09/03/21 1426 @ Submitting doctor edited from to @ by RGOOD at 09/03/21 1426 HEADER OPERATION: Colonoscopy, EGD ([facility] [place]) PRE-OP DIAGNOSIS: Acute lower GI bleeding, diarrhea TISSUE SUBMITTED: A ? Duodenum biopsy, B ? Terminal ileum biopsy, C ? Hepatic flexure polyp biopsy, D ? Random colonic biopsy MICROSCOPIC DIAGNOSIS A. Duodenum, biopsy: No pathologic change. B. Terminal ileum, biopsy: No pathologic change. C. Colonic polyp at hepatic flexure, biopsy: Fragments of tubular adenoma. D. Colon, random biopsy: Focal mucosal ischemic change. AM:hugo 09/06/2021 AM:hugo 09/09/2021 MICROSCOPIC DESCRIPTION Slides are reviewed. GROSS DESCRIPTION A - Received in fixative is one container labeled with the patient's name and designated duodenum biopsy. The specimen consists of one irregular fragment of light peters soft tissue that measures 0.3 x 0.3 x 0.1 cm. The specimen is totally submitted in one cassette. B - Received in fixative is one container labeled with the patient's name and designated terminal ileum. The specimen consists of one irregular fragment of light peters soft tissue that measures 0.4 x 0.4 x 0.1 cm. The specimen is totally submitted in one cassette. C - Received in fixative is one container labeled with the patient's name and designated hepatic flexure polyp biopsy. The specimen consists of multiple irregular fragments of light peters soft tissue that in aggregate measure 0.6 x 0.2 x 0.1 cm. The specimen is totally submitted in one cassette. D - Received in fixative is one container labeled with the patient's name and designated random colonic biopsy. The specimen consists of multiple irregular fragments of light peters soft tissue that in aggregate measure 1 x 1 x 0.1 cm. The specimen is totally submitted in one cassette. / SJ:rg 09/03/21 TC:3 CPT: 31050 x4
--- NOTE | 2021-09-02 | EGD_PTH ---
PATIENT: RED PRICE LOC: MS3 U#:[id number] AGE/SX: 66/F [place] [facility] [place]/01/[address]: Dr. Toño Salas MD : 1955 BED: 1 DIS: 09/04/2021 SPEC #: [id number] RECD: 09/02/21 13:30 STATUS: MALIA SOLORIO #: [id number] [place]: 09/02/21 00:[address]: Bandar Melissa DEPT: SURGICAL PATHOLOGY RECD BY: Daniel Tesfaye ENTERED: 09/03/21 09:14 SP TYPE: EGD BIOPSY OTHR DR: MD Dr. Cody Vasquez MD Dr. Prakash Chand, MD Tissues: A - Duodenum, NOS B - Ileum, NOS C - Gastric mucous membrane D - COLON BIOPSY Procedures: Surgery Specimen Level IV Comments: @ Ordering doctor for SUIV edited from to @ by DON at 09/03/21 1426 @ Submitting doctor edited from to @ by RGOOD at 09/03/21 1426 HEADER OPERATION: Colonoscopy, EGD ([facility] [place]) PRE-OP DIAGNOSIS: Acute lower GI bleeding, diarrhea TISSUE SUBMITTED: A ? Duodenum biopsy, B ? Terminal ileum biopsy, C ? Hepatic flexure polyp biopsy, D ? Random colonic biopsy MICROSCOPIC DIAGNOSIS A. Duodenum, biopsy: No pathologic change. B. Terminal ileum, biopsy: No pathologic change. C. Colonic polyp at hepatic flexure, biopsy: Fragments of tubular adenoma. D. Colon, random biopsy: Focal mucosal skin change. AM:hugo 09/06/2021 MICROSCOPIC DESCRIPTION Slides are reviewed. GROSS DESCRIPTION A - Received in fixative is one container labeled with the patient's name and designated duodenum biopsy. The specimen consists of one irregular fragment of light peters soft tissue that measures 0.3 x 0.3 x 0.1 cm. The specimen is totally submitted in one cassette. B - Received in fixative is one container labeled with the patient's name and designated terminal ileum. The specimen consists of one irregular fragment of light peters soft tissue that measures 0.4 x 0.4 x 0.1 cm. The specimen is totally submitted in one cassette. C - Received in fixative is one container labeled with the patient's name and designated hepatic flexure polyp biopsy. The specimen consists of multiple irregular fragments of light peters soft tissue that in aggregate measure 0.6 x 0.2 x 0.1 cm. The specimen is totally submitted in one cassette. D - Received in fixative is one container labeled with the patient's name and designated random colonic biopsy. The specimen consists of multiple irregular fragments of light peters soft tissue that in aggregate measure 1 x 1 x 0.1 cm. The specimen is totally submitted in one cassette. / SJ:rg 09/03/21 TC:3 CPT: 25549 x4
[2021-09-02] MEDS: 0.9% Normal Saline 1,000 ML 100 ML IV ×4 (00:17→22:13)
[2021-09-02] MEDS: Nystatin Powder 15gm Bottle 1 APPLIC TOPICAL ×3 (05:22→20:52)
[2021-09-02 05:45] LABS: Bedside Glucose 143 mg/dL (70-110)
--- NOTE | 2021-09-02 06:00 | EKG12_ITS ---
Test Reason : PRE OP Blood Pressure : / mmHG Vent. Rate : 060 BPM Atrial Rate : 060 BPM P-R Int : 184 ms QRS Dur : 098 ms QT Int : 468 ms P-R-T Axes : 063 -17 063 degrees QTc Int : 468 ms Normal sinus rhythm Normal ECG When compared with ECG of 03-FEB-2021 09:12, No significant change was found Confirmed by JOELLEN BERRIOS, NICK ([id number]), advertising columnist GEE YEBOAH ([id number]) on 09/06/2021 10:25:18 A M Referred By: FAITH BRAND Confirmed By:JARETH CUENCA MD
[2021-09-02 06:28] LABS: Hematocrit 31.8 % (37-47); Hemoglobin 10.4 g/dL (12.0-15.0); Mean Corp Hgb Conc 32.7 g/dL (32-36); Mean Corpuscular Hgb 29.8 pg (27.0-32.0); Mean Corpuscular Volume 91.1 fL (81-99); Mean Platelet Vol. 10.2 fl (6.2-12.0); Platelet Count 269 K/mm3 (150-450); RBC Distribution Width SD 43.1 fl (35.1-43.9); Red Blood Count 3.49 M/mm3 (4.2-5.4)
[2021-09-02 06:43] LABS: International Normalized Ratio 1.2; Prothrombin Time (Protime)PT. 14.6 SECONDS (11.7-14.9)
[2021-09-02 06:44] LABS: Partial Thromboplast Time 31.5 Seconds (24.1-36.2)
[2021-09-02 08:16] LABS: ALB/GLOB Ratio 0.4 RATIO (0.9-2.4); AST(SGOT) 22 U/L (15-37); Alanine Aminotransfer ALT/SGPT 19 U/L (13-56); Albumin, Serum 2.3 g/dL (3.2-5.0); Alkaline Phosphatase 122 U/L (45-117); Anion Gap 7 (5-15); BUN 16 mg/dL (7-18); BUN/Creat Ratio 19.3 RATIO (10-20); Calcium,Total 8.2 mg/dL (8.5-10.1); Chloride 111 mmol/L (98-107); Creatinine, Serum 0.83 mg/dL (0.55-1.02); EST Glomerular Filtration Rate 73 mL/min (>60); Est Glom Filt Rate - Afr Amer 89 mL/min (>60); Estimated Creatinine Clearance 58.35 ml/min; Globulin 5.2 g/dL (2.2-4.2); Glucose 144 mg/dL (74-106); Potassium 3.3 mmol/L (3.5-5.1); Protein, Total 7.5 g/dL (6.4-8.2); Sodium Level 140 mmol/L (136-145)
[2021-09-02 09:31] LABS: Magnesium 1.6 mg/dL (1.6-2.6); Phosphorus 3.5 mg/dL (2.5-4.9)
--- NOTE | 2021-09-02 09:35 | PCM.PN.HOSP ---
Subjective Subjective Patient symptoms of diarrhea has gotten better. Abdominal pain has improved or resolved which she had in left lower quadrant yesterday. Is planned for EGD colonoscopy today. Patient has mild intermittent burning micturition and increased frequency. She has cystocele chronic urinary incontinence Objective Data Objective Data Vital Signs: Vital Signs Temp Pulse Resp BP Pulse Ox 97.9 F 72 16 147/74 H 98 09/02/21 09:25 09/02/21 09:25 09/02/21 09:25 09/02/21 09:25 09/02/21 09:25 Oxygen Delivery Method Room Air Weight: 144 lb 2.917 oz Body Mass Index (BMI) 24.7 Intake & Output: Intake and Output for Last 24 Hours 08/31/21 09/01/21 09/02/21 23:59 23:59 23:59 Intake Total 1120 / 1220 3488.33 / 3488.33 796.67 / 796.67 Output Total 1400 / 1400 Balance 1120 / 1220 2088.33 / 2088.33 796.67 / 796.67 Medical Nutrition Assessment Dietitian: Malnutrition Criteria Met Start: 08/31/21 17:44 Freq: Status: Active Protocol: Document 08/31/21 17:44 RMA (Rec: 08/31/21 17:44 RMA [id number]) Nutrition Malnutrition Evidence of Malnutrition Exists Yes Malnutrition (severe): Chronic Evidenced By Suboptimal Energy Intake ( Severe),Weight Loss (Severe) Intake Problem Increased Nutrient Needs (specify) Etiology for protein related to wound healing Signs/Symptoms as evidenced by L foot chronic diabetic ulcer Status Active Problem Clinical Problem Chronic Disease or Condition Related Malnutrition Etiology Severe protein/calorie malnutrition in the context of chronic disease related to altered GI function/diarrhea and inadequate oral intake Signs/Symptoms as evidenced by ~9% wt loss x 4 months and PO meeting less than 50-75% estimated nutrition needs Status Active Problem 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 Dietitian 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s/Changes Advance diet as medically able to Carbohydrate-Controlled ( no caloric restriction) w/ 120ml glucerna shake TID at meals. Continue Alfredo BID for wound healing as ordered. Lab / Micro Data Result Diagrams: 09/02/21 05:55 09/02/21 05:55 Labs: Laboratory Results - last 24 hr 09/01/21 05:58: POC Glucose 124 H 09/01/21 12:05: POC Glucose 139 H 09/01/21 16:50: POC Glucose 115 H 09/01/21 22:11: POC Glucose 142 H 09/02/21 05:19: POC Glucose 143 H 09/02/21 05:55: WBC 9.0, RBC 3.49 L, Hgb 10.4 L, Hct 31.8 L, MCV 91.1, MCH 29.8, MCHC 32.7, RDW Std Deviation 43.1, RDW Coeff of Xin 13.0, Plt Count 269, MPV 10.2 09/02/21 05:55: PT 14.6, INR 1.2, APTT 31.5 09/02/21 05:55: Sodium 140, Potassium 3.3 L, Chloride 111 H, Carbon Dioxide 22.0, Anion Gap 7, BUN 16, Creatinine 0.83, Estim Creat Clear Calc 58.35, Est GFR (MDRD) Af Amer 89, Est GFR (MDRD) Non-Af 73, BUN/Creatinine Ratio 19.3, Glucose 144 H, Calcium 8.2 L, Total Bilirubin 0.40, AST 22, ALT 19, Alkaline Phosphatase 122 H, Total Protein 7.5, Albumin 2.3 L, Globulin 5.2 H, Albumin/Globulin Ratio 0.4 L 09/02/21 05:55: Phosphorus 3.5, Magnesium 1.6 Micro: Microbiology 09/02/21 08:25 Stool Stool Lactoferrin - Final 09/01/21 12:00 Nasal Secretion SARS-CoV-2 Antigen (Rapid) - Final 08/31/21 13:45 Stool Stool Occult Blood (SONG) - Final Occult Blood Positive Physical Exam Narrative General: Alert, Oriented x3, Cooperative HEENT: Atraumatic, PERRLA, EOMI, Normocephalic Oral: No Gingival or Mucosal Lesions/ Ulcerations Neck: Supple, No JVD, Negative Carotid Bruits Lungs: Air entry diminished in bilateral lung bases. No crepitation/rhonchi Cardiovascular: Regular rate, Regular Rhythm, Normal S1, Normal S2, Systolic murmur LSB Abdomen: No tenderness. Bowel Sounds Present, Soft, Non-Distended. No palpable mass : Cystocele, burning micturition. Turbid urine. No renal angle or suprapubic tenderness. Extremities: No edema, Capillary Refill Less than 3 Seconds Skin: No rashes, No breakdown Musculoskeletal: Mild weakness of lower extremities. Ambulates scooter on baseline. Left forefoot amputation. Neurological: Cranial nerves II-XII grossly intact, DTR 2+/4 and Symmetrical, Neuro grossly intact Psych/Mental Status: Normal Affect, Appropriate. Assessment & Plan Assessment/Plan (1) Acute lower GI bleeding: PLAN: The patient is a 66 y/o F with multiple comorbidities admitted with lower abdominal discomfort cramping associated with dizziness and lightheadedness and lower GI bleed. 1. Acute lower GI bleed with history of C. difficile in the past: Patient has been evaluated by Dr. May in the past and was told that she does not have Crohn's disease, ulcerative colitis or celiac disease. GI has been consulted. H&H is stable. PT and OT. Blood pressure 164/74 /: H&H is stable over last 3 days. Plan for EGD and colonoscopy today. Diarrhea and left lower quadrant tenderness is resolved. Patient also complains of mild burning micturition and increased frequency and had leukocytosis at admission. UA with urine culture ordered. Empirically started on Bactrim DS. Patient has allergy to penicillin and cephalosporins. 2. Chronic diabetic left foot ulcer: Following with Dr. 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 The most recent arterial Doppler 02/05/2021 with no stenosis noted with triphasic waveforms, following with Dr. Hugo. Wound RN consultation requested. 3. Chronic asthma with allergic rhinitis: on oxygen with wean as tolerated to home oxygen supplementation, on inhaler as needed. No exacerbation. 4. P Diabetes mellitus type II: Leukosis controlled. A1c 7.6%. 6. History of prior DVT: Patient was taken off Eliquis about 2 to 3 months ago after she had epistaxis. 7. GERD: We will continue patient on PPI. 8. DVT prophylaxis: SCDs, hold any chemoprophylaxis due to GI hemorrhage 9. CODE status: Patient BABAR is her Sister Jackie and living will is currently in place. Full code. Charges/Coding Visit Charges Inpatient E&M: 66151 Subs Hosp L2
[2021-09-02] MEDS: Potassium Chloride 10mEq/100mL 10 MEQ/100 ML IV.SOLN. 100 MEQ IV BOLUS ×4 (10:39→16:34)
[2021-09-02] MEDS: Menthol/Lanolin/Calamine/Znox 113 GM Tube 1 APPLIC TOPICAL ×2 (10:43→20:52)
--- NOTE | 2021-09-02 11:10 | CHAPLAIN ---
Type of Pastoral Visit ___ Initial Visit _x__ Follow-up Visit ___ On-call Visit ___ General Patient Visit ___ Spiritual Assessment ___ Family Conference ___ Bereavement ___ Rapid Response ___ Code Blue ___ Other (describe below) Pastoral Care Referral From _x__ Patient ___ Family ___ Nurse ___ Physician ___ Biofuels Operations Manager ___ Ui Architect ___ Other (describe below) Sacrament/Intervention _x__ Active listening ___ Anointing ___ Worship ___ Bereavement ___ Communion _x__ Dang exploration ___ _x__ Life review _x__ Prayer ___ Reconciliation ___ Sacrament of Sick _x__ Supportive presence ___ Wedding ___ Other (describe below) Pastoral Comments patient expresses up and down mood thinking of her health and what to do; pt says she is very happy with the visit from and has encouragement about a fix for her issue; pt desires spiritual support and prayer; pt is scheduled for a procedure in this afternoon
[2021-09-02 11:56] LABS: Bedside Glucose 134 mg/dL (70-110)
--- NOTE | 2021-09-02 12:17 | NURSING ---
Pt to ENDO via bed.
--- NOTE | 2021-09-02 13:22 | OP.CCLET_ITS ---
07/01/2022 Cody Billings Re : Upper GI endoscopy procedure for Zulay Serra Dear Awa This procedure was performed on August. My impressions and recommendations are as follows: Impressions : - Normal esophagus. - Normal stomach. - Erythematous duodenopathy. Biopsied. 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s : - Await pathology results. - Repeat upper endoscopy in 1 year for surveillance. - Return to GI clinic in 1 week. - Continue present medications. My findings are described in the full procedure note, which is enclosed. If I can be of further assistance, please feel free to contact me at . Sincerely, Bandar Friend, 09/02/2021 1:21:36 PM This report has been signed electronically.
--- NOTE | 2021-09-02 13:22 | OP.EGD_ITS ---
Patient Name: Zulay Serra Procedure Date: 09/02/2021 12:40 PM Date of : 1955 Age: 66 Procedure: Upper GI endoscopy Indications: Epigastric abdominal pain Providers: Bandar Melissa DO Medicines: See the Anesthesia note for documentation of the administered medications Patient Profile: This is a 66 year old female. Refer to note in patient chart for documentation of history and physical. Patient has symptoms of acute abdominal cramping. Complications: No immediate complications. Procedure: Pre-Anesthesia Assessment: - Prior to the procedure, a History and Physical was performed, and patient medications and allergies were reviewed. The risks and benefits of the procedure and the sedation options and risks were discussed with the patient. All questions were answered and informed consent was obtained. Patient identification and proposed procedure were verified by the physician in the pre-procedure area. Mental Status Examination: alert and oriented. Airway Examination: normal oropharyngeal airway and neck mobility. Respiratory Examination: clear to auscultation. CV Examination: normal. Prophylactic Antibiotics: The patient does not require prophylactic antibiotics. Prior Anticoagulants: The patient has taken no previous anticoagulant or antiplatelet agents. ASA Grade Assessment: II - A patient with mild systemic disease. After reviewing the risks and benefits, the patient was deemed in satisfactory condition to undergo the procedure. The anesthesia plan was to use moderate sedation / analgesia (conscious sedation). Immediately prior to administration of medications, the patient was re-assessed for adequacy to receive sedatives. The heart rate, respiratory rate, oxygen saturations, blood pressure, adequacy of pulmonary ventilation, and response to care were monitored throughout the procedure. The physical status of the patient was re-assessed after the procedure. After obtaining informed consent, the endoscope was passed under direct vision. Throughout the procedure, the patient's blood pressure, pulse, and oxygen saturations were monitored continuously. The gastroscope was introduced through the mouth, and advanced to the second part of duodenum. The upper GI endoscopy was accomplished without difficulty. The patient tolerated the procedure well. Moderate Sedation: Moderate (conscious) sedation was administered by the endoscopy nurse and supervised by the endoscopist. The patient's oxygen saturation, heart rate, blood pressure and response to care were monitored. Total physician intraservice time was 15 minutes. Scope In: 12:50:38 PM Scope Out: 12:53:10 PM Total Procedure Duration Time 0 hours 2 minutes 32 seconds Findings: The examined esophagus was normal. The entire examined stomach was normal. Patchy mildly erythematous mucosa without active bleeding and with no stigmata of bleeding was found in the duodenal bulb. Biopsies were taken with a cold forceps for histology. Impression: - Normal esophagus. - Normal stomach. - Erythematous duodenopathy. Biopsied. 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: - Await pathology results. - Repeat upper endoscopy in 1 year for surveillance. - Return to GI clinic in 1 week. - Continue present medications. Procedure Code(s): --- Professional --- 88157, Esophagogastroduodenoscopy, flexible, transoral; with biopsy, single or multiple G0500, Moderate sedation services provided by the same physician or other qualified health career services assistant performing a gastrointestinal endoscopic service that sedation supports, requiring the presence of an independent trained observer to assist in the monitoring of the patient's level of consciousness and physiological status; initial 15 minutes of intra-service time; patient age 5 years or older (additional time may be reported with 29406, as appropriate) Diagnosis Code(s): --- Professional --- K31.89, Other diseases of stomach and duodenum R10.13, Epigastric pain CPT copyright 2017 [employer] [place] [employer]. All rights reserved. The codes documented in this report are preliminary and upon outpatient coder review may be revised to meet current compliance requirements. Bandar Meilssa DO 09/02/2021 1:21:36 PM This report has been signed electronically. Number of Addenda: 1 Note Initiated On: 09/02/2021 12:40 PM Addendum Number: 1 Addendum Date: 07/01/2022 6:14:30 AM MAC was used instead of moderate sedation for this patient. Bandar Melissa DO 07/01/2022 6:14:43 AM This report has been signed electronically.
--- NOTE | 2021-09-02 13:27 | OP.COLON_ITS ---
Patient Name: Zulay Serra Procedure Date: 09/02/2021 12:55 PM Date of : 1955 Age: 66 Procedure: Colonoscopy Indications: Gastrointestinal bleeding Providers: Bandar Melissa DO Medicines: See the Anesthesia note for documentation of the administered medications Patient Profile: This is a 66 year old female. Refer to note in patient chart for documentation of history and physical. Patient has symptoms of acute abdominal cramping. Last Colonoscopy: 5 years ago. Complications: No immediate complications. Procedure: Pre-Anesthesia Assessment: - Prior to the procedure, a History and Physical was performed, and patient medications and allergies were reviewed. The risks and benefits of the procedure and the sedation options and risks were discussed with the patient. All questions were answered and informed consent was obtained. Patient identification and proposed procedure were verified by the physician in the pre-procedure area. Mental Status Examination: alert and oriented. Airway Examination: normal oropharyngeal airway and neck mobility. Respiratory Examination: clear to auscultation. CV Examination: normal. Prophylactic Antibiotics: The patient does not require prophylactic antibiotics. Prior Anticoagulants: The patient has taken no previous anticoagulant or antiplatelet agents. ASA Grade Assessment: II - A patient with mild systemic disease. After reviewing the risks and benefits, the patient was deemed in satisfactory condition to undergo the procedure. The anesthesia plan was to use moderate sedation / analgesia (conscious sedation). Immediately prior to administration of medications, the patient was re-assessed for adequacy to receive sedatives. The heart rate, respiratory rate, oxygen saturations, blood pressure, adequacy of pulmonary ventilation, and response to care were monitored throughout the procedure. The physical status of the patient was re-assessed after the procedure. After I obtained informed consent, the scope was passed under direct vision. Throughout the procedure, the patient's blood pressure, pulse, and oxygen saturations were monitored continuously. The colonoscope was introduced through the anus and advanced to the terminal ileum. The colonoscopy was performed without difficulty. The patient tolerated the procedure well. The quality of the bowel preparation was good. Moderate Sedation: Moderate (conscious) sedation was administered by the endoscopy nurse and supervised by the endoscopist. The patient's oxygen saturation, heart rate, blood pressure and response to care were monitored. Total physician intraservice time was 15 minutes. Scope In: 12:58:03 PM Scope Withdrawal Time 0 hours 6 minutes 33 seconds Scope Out: 1:09:17 PM Total Procedure Duration Time 0 hours 11 minutes 14 seconds Findings: An anal fissure was found on perianal exam. An area of significantly congested mucosa was found in the sigmoid colon, in the descending colon, at the splenic flexure, in the transverse colon and at the hepatic flexure. This was biopsied with a cold forceps for histology. Verification of patient identification for the specimen was done. Estimated blood loss was minimal. The exam was otherwise without abnormality on direct and retroflexion views. Impression: - Anal fissure found on perianal exam. - Congested mucosa in the sigmoid colon, in the descending colon, at the splenic flexure, in the transverse colon and at the hepatic flexure. There was also was significant ulcerations consistent with ischemic colitis. Biopsied. - The examination was otherwise normal on direct and retroflexion views. - Moderate diverticulosis in the sigmoid colon. There was no evidence of diverticular bleeding. 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: - Return patient to hospital [facility] for ongoing care. - Resume previous diet. - Use Uceris (budesonide) 9 mg PO daily for 8 weeks. - Use hydrocortisone suppository 25 mg 2 per rectum once a day for 3 weeks. - Repeat colonoscopy in 1 year for surveillance based on pathology results. - Continue present medications. Procedure Code(s): --- Professional --- 89255, Colonoscopy, flexible; with biopsy, single or multiple G0500, Moderate sedation services provided by the same physician or other qualified health palliative care coordinator performing a gastrointestinal endoscopic service that sedation supports, requiring the presence of an independent trained observer to assist in the monitoring of the patient's level of consciousness and physiological status; initial 15 minutes of intra-service time; patient age 5 years or older (additional time may be reported with 03635, as appropriate) CPT copyright 2017 [employer]. All rights reserved. The codes documented in this report are preliminary and upon burr sander review may be revised to meet current compliance requirements. Bandar Melissa DO 09/02/2021 1:26:52 PM This report has been signed electronically. Number of Addenda: 1 Note Initiated On: 09/02/2021 12:55 PM Addendum Number: 1 Addendum Date: 07/01/2022 6:14:53 AM MAC was used instead of moderate sedation for this patient. Bandar Melissa DO 07/01/2022 6:14:59 AM This report has been signed electronically.
--- NOTE | 2021-09-02 13:27 | OP.CCLET_ITS ---
07/01/2022 Cody Billings Re : Colonoscopy procedure for Zulay Serra Dear Awa This procedure was performed on August. My impressions and recommendations are as follows: Impressions : - Anal fissure found on perianal exam. - Congested mucosa in the sigmoid colon, in the descending colon, at the splenic flexure, in the transverse colon and at the hepatic flexure. There was also was significant ulcerations consistent with ischemic colitis. Biopsied. - The examination was otherwise normal on direct and retroflexion views. - Moderate diverticulosis in the sigmoid colon. There was no evidence of diverticular bleeding. 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s : - Return patient to hospital [facility] for ongoing care. - Resume previous diet. - Use Uceris (budesonide) 9 mg PO daily for 8 weeks. - Use hydrocortisone suppository 25 mg 2 per rectum once a day for 3 weeks. - Repeat colonoscopy in 1 year for surveillance based on pathology results. - Continue present medications. My findings are described in the full procedure note, which is enclosed. If I can be of further assistance, please feel free to contact me at . Sincerely, Bandar Melissa, 09/02/2021 1:26:52 PM This report has been signed electronically.
[2021-09-02] MEDS: Smz/Tmp Ds Tablet 1 TABLET PO ×2 (14:27→20:53)
[2021-09-02 14:56] LABS: Bacteria 0 SEEN /hpf (None Seen); Mucous, Urine 0 SEEN /hpf (<or=2+); Red Blood Cells-Urine 0 SEEN /hpf (0-5)
[2021-09-02 15:13] LABS: Color, Urine Straw (Yellow); Glucose, Dipstick Normal (Normal); Ketone-Dipstick 5 mg/dl (Negative); Leukocyte Esterase-Dipstick 500 /ul (Negative); Nitrite-Dipstick Negative (Negative); Occult Blood-Urine 10 /ul (Negative); Protein-Dipstick Negative (Negative); Urine Bilirubin Dipstick Negative (Negative); Urine Clarity Clear (Clear); Urine Urobilinogen Normal (Normal); Urine pH 6.5 (5.0 - 8.0)
--- NOTE | 2021-09-02 15:19 | CASEMGMT ---
RN CM in to pt room to discuss C. Pt states she was seeing the [facility] for her amputation site but it is now healed. She states she has some breakdown to her bottom. She is agreeable to add SN to the [facility] referral. [facility], left message on Cammie's line adding the SN. Pt denies further needs at this time.
[2021-09-02 15:34] LABS: Squamous Epithelial Cells - UA 0-5 SEEN /hpf (5-10); White Blood Cells 25-50 SEEN /hpf (0-5)
[2021-09-02] MEDS: Juven (unflavored) Packet 1 PACKET PO (18:04)
[2021-09-02] MEDS: Insulin Lispro 100 UNIT/ML INSULN.PEN SC (18:04)
[2021-09-02 18:16] LABS: Bedside Glucose 179 mg/dL (70-110)
[2021-09-02] MEDS: Pantoprazole Sodium 40 MG Tablet PO (20:53)
[2021-09-02] MEDS: MELATONIN 3 MG TABLET PO (20:55)
[2021-09-02 22:21] LABS: Bedside Glucose 120 mg/dL (70-110)
[2021-09-03 03:17] VITALS: BP 144/63; PULSE 60; RESP 18; TEMP 37.2; O2SAT 99
[2021-09-03] MEDS: Nystatin Powder 15gm Bottle 1 APPLIC TOPICAL ×3 (06:31→21:35)
[2021-09-03] MEDS: 0.9% Normal Saline 1,000 ML 100 ML IV (06:34)
[2021-09-03 06:50] LABS: Bedside Glucose 98 mg/dL (70-110)
[2021-09-03] MEDS: traMADol 50 MG Tablet PO ×2 (06:52→19:03)
[2021-09-03] MEDS: 0.9% Saline Lock 10 ML Syringe IV (06:52)
[2021-09-03] MEDS: Ondansetron 4 MG/2 ML Vial IV ×2 (06:52→19:03)
[2021-09-03 07:10] LABS: Absolute Lymphocyte Count 1.85 X10^3/uL (0.83-4.51); Basophil# 0.07 X10^3/uL; Eosinophil# 0.48 X10^3/uL; Eosinophils% 6.9 % (0-5); Hematocrit 30.4 % (37-47); Hemoglobin 10.1 g/dL (12.0-15.0); Lymphocyte # 1.85 X10^3/ul (0.83-4.51); Lymphocyte % 26.5 % (19-41); Mean Corp Hgb Conc 33.2 g/dL (32-36); Mean Corpuscular Hgb 30.4 pg (27.0-32.0); Mean Corpuscular Volume 91.6 fL (81-99); Mean Platelet Vol. 10.3 fl (6.2-12.0); Monocyte# 0.59 X10^3/uL; Monocyte% 8.5 % (0-10); NRBC Flagged by Analyzer 0 % (0-5); Neutrophil # 3.96 X10^3/uL (2.7-7.7); Neutrophil % 56.8 % (47-70); Platelet Count 254 K/mm3 (150-450); RBC Distribution Width CV 13.1 % (11.6-14.6); RBC Distribution Width SD 43.5 fl (35.1-43.9); Red Blood Count 3.32 M/mm3 (4.2-5.4)
[2021-09-03 07:46] VITALS: O2SAT 98
[2021-09-03 07:46] LABS: Anion Gap 7 (5-15); BUN 13 mg/dL (7-18); Calcium,Total 8.3 mg/dL (8.5-10.1); Chloride 112 mmol/L (98-107); Creatinine, Serum 0.62 mg/dL (0.55-1.02); EST Glomerular Filtration Rate 103 mL/min (>60); Est Glom Filt Rate - Afr Amer 124 mL/min (>60); Estimated Creatinine Clearance 78.12 ml/min; Glucose 89 mg/dL (74-106); Potassium 3.5 mmol/L (3.5-5.1); Sodium Level 141 mmol/L (136-145)
[2021-09-03 08:04] VITALS: O2SAT 96
[2021-09-03 09:11] VITALS: BP 176/70; PULSE 62; RESP 16; TEMP 36.7; O2SAT 100
[2021-09-03] MEDS: Juven (unflavored) Packet 1 PACKET PO ×2 (09:15→17:06)
[2021-09-03] MEDS: Smz/Tmp Ds Tablet 1 TABLET PO ×2 (09:15→21:35)
[2021-09-03] MEDS: Pantoprazole Sodium 40 MG Tablet PO ×2 (09:15→21:35)
[2021-09-03] MEDS: Menthol/Lanolin/Calamine/Znox 113 GM Tube 1 APPLIC TOPICAL ×2 (09:15→21:35)
--- NOTE | 2021-09-03 10:33 | CASEMGMT ---
TC miya Bonds at [facility] to make aware pt will most likely dc tomorrow. Green sheet placed on chart.
--- NOTE | 2021-09-03 11:22 | PCM.PN.HOSP ---
Subjective Subjective Patient complain of bilateral lower quadrant abdominal pain last night crampy in nature got better with tramadol. Patient had EGD and colonoscopy yesterday and findings discussed with the patient. No fever. Objective Data Objective Data Vital Signs: Vital Signs Temp Pulse Resp BP Pulse Ox 98.1 F 62 16 176/70 H 100 09/03/21 09:11 09/03/21 09:11 09/03/21 09:11 09/03/21 09:11 09/03/21 09:11 Oxygen Delivery Method Room Air Weight: 145 lb 8.081 oz Body Mass Index (BMI) 24.7 Intake & Output: Intake and Output for Last 24 Hours 09/01/21 09/02/21 09/03/21 23:59 23:59 23:59 Intake Total 3488.33 / 3488.33 3390.01 / 3390.01 1391.67 / 1391.67 Output Total 1400 / 1400 300 / 300 550 / 550 Balance 2088.33 / 2088.33 3090.01 / 3090.01 841.67 / 841.67 Medical Nutrition Assessment Dietitian: Malnutrition Criteria Met Start: 08/31/21 17:44 Freq: Status: Active Protocol: Document 09/02/21 11:48 BP (Rec: 09/02/21 11:48 BP [id number]) Nutrition Malnutrition Evidence of Malnutrition Exists Yes Malnutrition (severe): Chronic Evidenced By Suboptimal Energy Intake ( Severe),Weight Loss (Severe) Intake Problem Increased Nutrient Needs (specify) Etiology for protein related to wound healing Signs/Symptoms as evidenced by L foot chronic diabetic ulcer Status Active Problem Clinical Problem Chronic Disease or Condition Related Malnutrition Etiology Severe protein/calorie malnutrition in the context of chronic disease related to altered GI function/diarrhea and inadequate oral intake Signs/Symptoms as evidenced by ~13% wt loss x 4 months and PO meeting less than 50-75% estimated nutrition needs. Status Active Problem 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 Dietitian 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s/Changes Advance diet as medically able to Carbohydrate-Controlled ( no caloric restriction) w/ 120ml glucerna shake TID at meals. Will provide Alfredo BID for wound healing once pt resumes PO diet. Lab / Micro Data Result Diagrams: 09/03/21 05:42 09/03/21 05:42 Labs: Laboratory Results - last 24 hr 09/02/21 11:46: POC Glucose 134 H 09/02/21 14:45: Urine Color Straw, Urine Clarity Clear, Urine pH 6.5, Ur Specific [place] 1.010, Urine Protein Negative, Urine Glucose (UA) Normal, Urine Ketones 5 H, Urine Occult Blood 10 H, Urine Nitrite Negative, Urine Bilirubin Negative, Urine Urobilinogen Normal, Ur Leukocyte Esterase 500 H, Urine RBC 0 SEEN, Urine WBC 25-50 SEEN, Ur Squamous Epith Cells 0-5 SEEN, Urine Bacteria 0 SEEN, Urine Mucus 0 SEEN 09/02/21 18:02: POC Glucose 179 H 09/02/21 22:08: POC Glucose 120 H 09/03/21 05:42: WBC 7.0, RBC 3.32 L, Hgb 10.1 L, Hct 30.4 L, MCV 91.6, MCH 30.4, MCHC 33.2, RDW Std Deviation 43.5, RDW Coeff of Xin 13.1, Plt Count 254, MPV 10.3, Immature Gran % (Auto) 0.300, Neut % (Auto) 56.8, Lymph % (Auto) 26.5, [place] % (Auto) 8.5, Eos % (Auto) 6.9 H, Baso % (Auto) 1.0, Absolute Neuts (auto) 4.0, Absolute Lymphs (auto) 1.85, Nucleated RBC % 0 09/03/21 05:42: Sodium 141, Potassium 3.5, Chloride 112 H, Carbon Dioxide 22.0, Anion Gap 7, BUN 13, Creatinine 0.62, Estim Creat Clear Calc 78.12, Est GFR (MDRD) Af Amer 124, Est GFR (MDRD) Non-Af 103, BUN/Creatinine Ratio 21.0 H, Glucose 89, Calcium 8.3 L 09/03/21 06:30: POC Glucose 98 Micro: Microbiology 09/02/21 08:25 Stool Stool Lactoferrin - Final 09/02/21 08:25 Stool Enteric Bacteriology - Final 09/02/21 08:25 Stool C. difficile DNA Amplification - Final 09/01/21 12:00 Nasal Secretion SARS-CoV-2 Antigen (Rapid) - Final 08/31/21 13:45 Stool Stool Occult Blood (SONG) - Final Occult Blood Positive Physical Exam Narrative No new melena, hematochezia or rectal bleed for last 2 days. General: Alert, Oriented x3, Cooperative HEENT: Atraumatic, PERRLA, EOMI, Normocephalic Oral: No Gingival or Mucosal Lesions/ Ulcerations Neck: Supple, No JVD, Negative Carotid Bruits Lungs: Air entry diminished in bilateral lung bases. No crepitation/rhonchi Cardiovascular: Regular rate, Regular Rhythm, Normal S1, Normal S2, Systolic murmur LSB Abdomen: no tenderness. Bowel Sounds Present, Soft, Non-Distended. No palpable mass : Cystocele, burning micturition. No renal angle or suprapubic tenderness. Extremities: No edema, Capillary Refill Less than 3 Seconds Skin: No rashes, No breakdown Musculoskeletal: Mild weakness of lower extremities. Ambulates scooter on baseline. Left forefoot amputation. Neurological: Cranial nerves II-XII grossly intact, DTR 2+/4 and Symmetrical, Neuro grossly intact Psych/Mental Status: Normal Affect, Appropriate. Assessment & Plan Assessment/Plan (1) Acute lower GI bleeding: PLAN: The patient is a 66 y/o F with multiple comorbidities admitted with lower abdominal discomfort cramping associated with dizziness and lightheadedness and lower GI bleed. 1. Acute lower GI bleed with history of C. difficile in the past: Patient has been evaluated by Dr. May in the past and was told that she does not have Crohn's disease, ulcerative colitis or celiac disease. GI has been consulted. H&H is stable. PT and OT. Blood pressure 164/74 09/02: H&H is stable over last 3 days. Plan for EGD and colonoscopy today. Diarrhea and left lower quadrant tenderness is resolved. Patient also complains of mild burning micturition and increased frequency and had leukocytosis at admission. UA with urine culture ordered. Empirically started on Bactrim DS. Patient has allergy to penicillin and cephalosporins. 09/03: Patient does still have intermittent abdominal cramps, happened last night. EGD colonoscopy findings discussed with the patient. Colonoscopy shows an old fissure, congested mucosa in sigmoid colon, descending colon, splenic flexure, as well as colon and at hepatic flexure. Also significant ulceration consistent with ischemic colitis is biopsied. Patient is started on wilderness Sid 9 mg p.o. daily for 8 weeks and hydrocortisone suppository 50 mg rectum once a day for 3 weeks. Repeat surveillance colonoscopy in 1 year. EGD shows normal esophagus, stomach mild patchy mild erythema not active bleeding stigmata of bleeding in the duodenal bulb. UA shows WBC 25-50 cells, LE 500 but negative nitrite. Urine culture received. Continue Bactrim DS. On Protonix 40 mg p.o. twice daily 2. Chronic diabetic left foot ulcer: Following with Dr. 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 The most recent arterial Doppler 02/05/2021 with no stenosis noted with triphasic waveforms, following with Dr. Hugo. Wound RN consultation requested. 3. Chronic asthma with allergic rhinitis: on oxygen with wean as tolerated to home oxygen supplementation, on inhaler as needed. No exacerbation. 4. P Diabetes mellitus type II: Leukosis controlled. A1c 7.6%. 6. History of prior DVT: Patient was taken off Eliquis about 2 to 3 months ago after she had epistaxis. 7. GERD: on PPI. 8. DVT prophylaxis: SCDs, hold any chemoprophylaxis due to GI hemorrhage 9. CODE status: Patient BABAR is her Sister Jackie and living will is currently in place. Full code. Charges/Coding Visit Charges Inpatient E&M: 07739 Subs Hosp L2
[2021-09-03] MEDS: Insulin Lispro 100 UNIT/ML INSULN.PEN SC (11:49)
[2021-09-03 12:15] LABS: Bedside Glucose 179 mg/dL (70-110)
--- NOTE | 2021-09-03 13:49 | CT_ITS ---
STUDY: CTA CHEST AND CTA ABDOMEN/PELVIS WITH CONTRAST REASON FOR EXAM: Female, 66 years old. Possible ischemic bowel disease RADIATION DOSAGE (If Supplied By Facility): CTDIvol = ( 33.41 ) mGy, DLP = ( 546.39 ) mGycm TECHNIQUE: The examination was performed with the intravenous administration of IV 100mL Isovue-370. Post-processing of the angiographic images was performed, with multiplanar reformation and 3D reconstruction. Individualized dose optimization techniques were used for this CT. COMPARISON: Comparison is made with prior examination 08/31/2021. FINDINGS: CTA Chest Normal enhancement of the main pulmonary artery and right and left pulmonary arteries. Normal enhancement of the bilateral peripheral pulmonary arteries. There is no demonstrated pulmonary embolism. Normal thoracic aorta and visualized great vessels. There is no demonstrated aortic dissection. Normal heart and pericardium. Normal mediastinum. Normal hilar regions. Normal visualized trachea and bronchi. The lungs are well expanded. Normal pulmonary parenchyma. Normal pleura. Normal chest wall structures. There are degenerative changes of thoracic spine. Normal visualized upper abdomen. CTA Abdomen T Pelvis There is decreased attenuation of the liver consistent with steatosis. Normal gallbladder and extrahepatic biliary system. Normal spleen. Normal pancreas. Normal bilateral adrenal glands. Normal right kidney. Normal left kidney. Normal visualized stomach. Normal small intestine. Normal colon. The appendix is visualized and appears normal. There is diffuse atherosclerotic calcification of the abdominal aorta, without a demonstrated aneurysm. Normal inferior vena cava. Normal retroperitoneum. Normal urinary bladder. Normal abdominal wall. There are diffuse degenerative changes of the visualized lumbar spine. Levoscoliosis. CT/CT ANGIO ABD&PEL W/O&W/DYE IMPRESSION: No evidence of ischemic bowel disease. Stable examination. Electronically Signed: Ming Louise MD at 14:51 EDT , Service support ,
[2021-09-03 15:00] VITALS: BP 124/72; PULSE 70; RESP 16; TEMP 36.7; O2SAT 100
[2021-09-03] MEDS: Budesonide 3 MG CAPSULE.EC 9 MG PO (15:08)
[2021-09-03] MEDS: Hydrocortisone 25 MG Suppository 50 MG RC (15:08)
[2021-09-03] MEDS: 0.9% Normal Saline 1,000 ML 50 ML IV (15:09)
[2021-09-03 17:41] LABS: Bedside Glucose 121 mg/dL (70-110)
[2021-09-03 21:26] VITALS: BP 157/86; PULSE 67; RESP 18; TEMP 36.9; O2SAT 99
[2021-09-03 23:56] LABS: Bedside Glucose 121 mg/dL (70-110)
[2021-09-04 03:52] VITALS: BP 130/63; PULSE 63; RESP 18; TEMP 36.4; O2SAT 98
[2021-09-04 06:22] LABS: Absolute Lymphocyte Count 1.43 X10^3/uL (0.83-4.51); Absolute Neutrophil Count 6.4 X10^3/uL (2.0-7.7); Basophil# 0.08 X10^3/uL; Basophil% 0.9 % (0-1); Eosinophil# 0.19 X10^3/uL; Eosinophils% 2.2 % (0-5); Hematocrit 29.9 % (37-47); Hemoglobin 9.8 g/dL (12.0-15.0); Lymphocyte # 1.43 X10^3/ul (0.83-4.51); Lymphocyte % 16.9 % (19-41); Mean Corp Hgb Conc 32.8 g/dL (32-36); Mean Corpuscular Hgb 30.1 pg (27.0-32.0); Mean Corpuscular Volume 91.7 fL (81-99); Mean Platelet Vol. 10.4 fl (6.2-12.0); Monocyte# 0.37 X10^3/uL; Monocyte% 4.4 % (0-10); NRBC Flagged by Analyzer 0 % (0-5); Neutrophil # 6.38 X10^3/uL (2.7-7.7); Neutrophil % 75.2 % (47-70); Platelet Count 259 K/mm3 (150-450); RBC Distribution Width SD 43.8 fl (35.1-43.9); Red Blood Count 3.26 M/mm3 (4.2-5.4); White Blood Count 8.5 K/mm3 (4.4-11.0)
[2021-09-04] MEDS: Nystatin Powder 15gm Bottle 1 APPLIC TOPICAL (06:22)
[2021-09-04] MEDS: Insulin Lispro 100 UNIT/ML INSULN.PEN SC (06:22)
[2021-09-04] MEDS: traMADol 50 MG Tablet PO (06:27)
[2021-09-04] MEDS: Ondansetron 4 MG/2 ML Vial IV (06:28)
[2021-09-04 06:30] LABS: Bedside Glucose 151 mg/dL (70-110)
[2021-09-04 06:45] LABS: Anion Gap 6 (5-15); BUN 16 mg/dL (7-18); BUN/Creat Ratio 23.8 RATIO (10-20); Chloride 109 mmol/L (98-107); Creatinine, Serum 0.67 mg/dL (0.55-1.02); EST Glomerular Filtration Rate 93 mL/min (>60); Est Glom Filt Rate - Afr Amer 113 mL/min (>60); Estimated Creatinine Clearance 72.29 ml/min; Glucose 143 mg/dL (74-106); Potassium 3.9 mmol/L (3.5-5.1); Sodium Level 138 mmol/L (136-145)
--- NOTE | 2021-09-04 08:42 | PCM.DC ---
Discharge Instructions Diet Discharge Diet: Soft diet (for 3 days then advance to regular diet with fibre) Activity Discharge Activity: Return to Normal Activity and May Not Drive Dressing / Incision Call your doctor if you observe: Fever of 101 or Higher, Coldness, Increased Pain, Numbness or Tingling, Change in Color, Inability to urinate, Inability to have a bowel movement, Using more than 1 pad per hour, Shortness of breath, Dizziness, Fainting spells, Swelling in the ankles, Chest pain, Prolonged hiccupping, Increased palpitations (irregular heartbeat), Calf discomfort and Uncontrolled pain Follow Up Care Test Results: Test results from this visit will be discussed in further detail at your follow-up appointment, if applicable. Discharge Plan Admission Admit Date/Time: 09/01/21 13:32 Primary Reason for Your Visit: ischemic colitis Attending Provider: Toño Salas Primary Care Provider: Cody Billings Discharge Orders/Prescriptions Prescriptions: New budesonide 3 mg Capsule,Delayed,Extend.Release 9 mg PO DAILY Qty: 30 RF: 1 hydrocortisone acetate [Anucort-HC] 25 mg Suppository 50 mg [place] DAILY Qty: 42 RF: 0 sulfamethoxazole-trimethoprim 800-160 mg Tablet 1 tab PO BID Qty: 6 RF: 0 Continued nystatin [Nyamyc] 100,000 unit/gram Powder 1 applic topical TID Qty: 0 RF: 0 albuterol sulfate [Ventolin HFA] 90 mcg/actuation Hfa Aerosol Inhaler 1 puff inhalation Q4H PRN PRN (Reason: SHORTNESS OF BREATH) Qty: 0 RF: 0 ondansetron 4 mg Tablet,Disintegrating 4 mg PO Q6H PRN PRN (Reason: NAUSEA) Qty: 0 RF: 0 menthol-zinc oxide [Calmoseptine] 0.44-20.6 % Ointment 1 applic topical BID Qty: 0 RF: 0 guaifenesin [Mucus Relief ER] 600 mg Tablet Extended Release 12hr 1,200 mg PO BID Qty: 0 RF: 0 Alfredo (with collagen) 7-7-1.5 gram Powder In Packet 1 packet PO BIDCM Qty: 0 RF: 0 tramadol 50 mg Tablet 50 mg PO Q6H PRN (Reason: Pain) RF: 0 cholecalciferol (vitamin D3) 50 mcg (2,000 unit) Capsule 250 mcg PO DAILY RF: 0 wheat dextrin 1 gram Tablet 2 g PO BID RF: 0 loperamide 2 mg capsule 4 mg PO TID RF: 0 acidophilus-pectin, citrus 25 million cell -100 mg tablet 1 tab PO BID RF: 0 aspirin 81 mg Tablet,Chewable 81 mg PO DAILY@0800 Qty: 0 RF: 0 Changed pantoprazole 40 mg tablet,delayed release (DR/EC) 40 mg PO BIDCM Qty: 60 RF: 0 Discontinued Leg Cramp Relief Capsule 3 cap PO DAILY RF: 0 Constat Extra 2 cap PO/SL TID RF: 0 Db-7 2 cap PO/SL BID RF: 0 Referrals / Follow Up: Cody Billings MD [Primary Care Provider] - In 1 Week Bandar Melissa DO [STAFF PHYSICIAN] - Within 2 Weeks (for ischemic colitis) Lori Hernandez MD [STAFF PHYSICIAN] - Within 2 Weeks (for mild right hydronephrosis and tiny right UV junction stone) Disposition Disposition (needs filled in before D/C Order can be placed): Home Health Service
--- NOTE | 2021-09-04 08:57 | DS.PCM_ITS ---
Providers Date of Admission: 09/01/21 Date of Discharge: 09/04/21 Primary Care Physician: Dr. Cody Billings MD Consultations 08/31/21 16:24 Consult: Gastroenterology Routine Consulting Provider: [facility] Reason for Consult: GI bleed EMERGENT Consult: No MD Notified: Yes Date Notified: 08/31/21 Time Notified: 16:00 Method of Notification: cortext Reason For Visit: LOWER GI BLEED Diagnosis Discharge Diagnosis (1) Acute lower GI bleeding: Status: Acute Code(s): K92.2 - Gastrointestinal hemorrhage, unspecified Medications at Discharge Home Medications Alfredo (with collagen) 1 packet PO BIDCM #0 ea 03/25/21 albuterol sulfate [Ventolin HFA] 1 puff INHALATION Q4H PRN PRN #0 g 03/25/21 guaifenesin [Mucus Relief ER] 1,200 mg PO BID #0 tab 03/25/21 menthol-zinc oxide [Calmoseptine] 1 applic TOPICAL BID #0 g 03/25/21 nystatin [Nyamyc] 1 applic TOPICAL TID #0 g 03/25/21 ondansetron 4 mg PO Q6H PRN PRN #0 tab 03/25/21 tramadol 50 mg PO Q6H PRN 05/18/21 acidophilus-pectin, citrus 1 tab PO BID 08/31/21 cholecalciferol (vitamin D3) 250 mcg PO DAILY 08/31/21 loperamide 4 mg PO TID 08/31/21 wheat dextrin 2 g PO BID 08/31/21 aspirin 81 mg PO DAILY@0800 #0 tab 09/04/21 budesonide 9 mg PO DAILY #30 ea 09/04/21 hydrocortisone acetate [Anucort-HC] 50 mg [place] DAILY #42 ea 09/04/21 pantoprazole 40 mg PO BIDCM #60 tab 09/04/21 sulfamethoxazole-trimethoprim 1 tab PO BID #6 tab 09/04/21 Hospital Course Summary of Care Provided Hospital Course: The patient is a 66 y/o F with multiple comorbidities admitted with lower abdominal discomfort cramping associated with dizziness and lightheadedness and lower GI bleed. 1. Acute lower GI bleed with history of C. difficile in the past and mild ESBL Klebsiella pneumoniae partially treated UTI: Patient has been evaluated by Dr. May in the past and was told that she does not have Crohn's disease, ulcerative colitis or celiac disease. GI has been consulted. H&H is stable. PT and OT. Blood pressure 164/74 H&H has been stable during hospital course. Diarrhea and abdominal pain resolved. EGD colonoscopy findings discussed with the patient. Colonoscopy shows an old fissure, congested mucosa in sigmoid colon, descending colon, splenic flexure, as well as colon and at hepatic flexure. Also significant ulceration consistent with ischemic colitis is biopsied. Patient is started on Budesonide 9 mg p.o. daily for 8 weeks and hydrocortisone suppository 50 mg rectum once a day for 3 weeks. Repeat surveillance colonoscopy in 1 year. EGD shows normal esophagus, stomach mild patchy mild erythema not active bleeding stigmata of bleeding in the duodena CT angiogram of abdomen pelvis was done does not show any hemodynamically significant stenosis. Discussed with Dr. Melissa. Continue Protonix 40 mg p.o. twice daily. Patient takes a lot of herbal medications will advised to discontinue as it might give abdominal cramps and diarrhea. Mild ESBL E. coli partially treated UTI: Patient also mild burning micturition increased frequency, leukocytosis at admission. Patient has cystocele.UA shows WBC 25-50 cells, LE 500 but negative nitrite. Urine culture shows ESBL Klebsiella pneumoniae sensitive to Bactrim 11,000-25,000 colonies. Bactrim DS for 3 more days and prescription given.I talked to the urologist, Dr Hernandez and she agreed to see as an outpatient. CT abdomen showed mild right hydronephrosis and suspicion for right tiny UV junction stone. Follow-up with her. 2. Chronic diabetic left foot ulcer history of mild stroke and left leg weakness for 3 weeks but he states got resolved: Following with Dr. 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 The most recent arterial Doppler 02/05/2021 with no stenosis noted with triphasic waveforms, following with Dr. Hugo. Wound RN consultation requested. 3. Chronic asthma with allergic rhinitis: on oxygen with wean as tolerated to h ome oxygen supplementation, on inhaler as needed. No exacerbation. 4. P Diabetes mellitus type II: Leukosis controlled. A1c 7.6%. 6. History of prior DVT: Patient was taken off Eliquis about 2 to 3 months ago after she had epistaxis. 7. GERD: on PPI. 8. DVT prophylaxis: SCDs, hold any chemoprophylaxis due to GI hemorrhage 9. CODE status: Patient BABAR is her Sister Jackie and living will is currently in place. Full code. Discharge medication reconciliation done. Discharge follow-up instructions completed. Discharge process discussed with the patient and all questions were answered to patient's satisfaction. Total time spent, exact 35 minutes on discharge meds reconciliation, examination, coordination of care with nurses and ancillary staff, review of imaging and blood test and discussion with the patient on follow-up instructions Physical Exam Narrative Seen and examined. No abdominal pain, melena, hematochezia or vomiting. Patient tolerated soft diet. Advised to continue soft diet for further 2 to 3 days and then moderate fiber diet General: Alert, Oriented x3, Cooperative HEENT: Atraumatic, PERRLA, EOMI, Normocephalic Oral: No Gingival or Mucosal Lesions/ Ulcerations Neck: Supple, No JVD, Negative Carotid Bruits Lungs: Air entry diminished in bilateral lung bases. No crepitation/rhonchi Cardiovascular: Regular rate, Regular Rhythm, Normal S1, Normal S2, Systolic murmur LSB Abdomen: no tenderness. Bowel Sounds Present, Soft, Non-Distended. No palpable mass : Cystocele, burning micturition. No renal angle or suprapubic tenderness. Extremities: No edema, Capillary Refill Less than 3 Seconds Skin: No rashes, No breakdown Musculoskeletal: Mild weakness of lower extremities. Ambulates scooter on baseline. Left forefoot amputation. Neurological: Cranial nerves II-XII grossly intact, DTR 2+/4 and Symmetrical, Neuro grossly intact Psych/Mental Status: Normal Affect, Appropriate. Medical Records Data Medical Nutrition Assessment Dietitian: Malnutrition Criteria Met Start: 08/31/21 17:44 Freq: Status: Active Protocol: Document 09/02/21 11:48 BP (Rec: 09/02/21 11:48 BP [id number]) Nutrition Malnutrition Evidence of Malnutrition Exists Yes Malnutrition (severe): Chronic Evidenced By Suboptimal Energy Intake ( Severe),Weight Loss (Severe) Intake Problem Increased Nutrient Needs (specify) Etiology for protein related to wound healing Signs/Symptoms as evidenced by L foot chronic diabetic ulcer Status Active Problem Clinical Problem Chronic Disease or Condition Related Malnutrition Etiology Severe protein/calorie malnutrition in the context of chronic disease related to altered GI function/diarrhea and inadequate oral intake Signs/Symptoms as evidenced by ~13% wt loss x 4 months and PO meeting less than 50-75% estimated nutrition needs. Status Active Problem 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 Dietitian 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s/Changes Advance diet as medically able to Carbohydrate-Controlled ( no caloric restriction) w/ 120ml glucerna shake TID at meals. Will provide Alfredo BID for wound healing once pt resumes PO diet. Weight / BMI Weight Weight: 144 lb 12.8 oz Body Mass Index (BMI) 24.7 ABG / Lab / Microbiology Data Result Diagrams: 09/04/21 05:35 09/04/21 05:35 Laboratory: Laboratory Results - last 24 hr 09/03/21 11:48: POC Glucose 179 H 09/03/21 17:03: POC Glucose 121 H 09/03/21 23:44: POC Glucose 121 H 09/04/21 05:35: WBC 8.5, RBC 3.26 L, Hgb 9.8 L, Hct 29.9 L, MCV 91.7, MCH 30.1, MCHC 32.8, RDW Std Deviation 43.8, RDW Coeff of Xin 13.0, Plt Count 259, MPV 10.4, Immature Gran % (Auto) 0.400, Neut % (Auto) 75.2 H, Lymph % (Auto) 16.9 L, [place] % (Auto) 4.4, Eos % (Auto) 2.2, Baso % (Auto) 0.9, Absolute Neuts (auto) 6.4, Absolute Lymphs (auto) 1.43, Nucleated RBC % 0 09/04/21 05:35: Sodium 138, Potassium 3.9, Chloride 109 H, Carbon Dioxide 23.0, Anion Gap 6, BUN 16, Creatinine 0.67, Estim Creat Clear Calc 72.29, Est GFR (MDRD) Af Amer 113, Est GFR (MDRD) Non-Af 93, BUN/Creatinine Ratio 23.8 H, Glucose 143 H, Calcium 8.0 L 09/04/21 06:21: POC Glucose 151 H Microbiology: Microbiology 09/02/21 14:45 Urine, Clean Catch Urine Culture - Preliminary Klebsiella pneumoniae sp pneum 09/02/21 08:25 Stool Stool Lactoferrin - Final 09/02/21 08:25 Stool Enteric Bacteriology - Final 09/02/21 08:25 Stool C. difficile DNA Amplification - Final 09/01/21 12:00 Nasal Secretion SARS-CoV-2 Antigen (Rapid) - Final 08/31/21 13:45 Stool Stool Occult Blood (SONG) - Final Occult Blood Positive Radiography Diagnostic Testing: Radiology Impression Abdomen/Pelvis CTA 09/03/21 13:49 IMPRESSION: No evidence of ischemic bowel disease. Stable examination. Electronically Signed: Ming Louise MD at 14:51 EDT , Service support , D/C Instructions Discharge Diet: Soft diet (for 3 days then advance to regular diet with fibre) Call your doctor if you observe: Fever of 101 or Higher, Coldness, Increased Pain, Numbness or Tingling, Change in Color, Inability to urinate, Inability to have a bowel movement, Using more than 1 pad per hour, Shortness of breath, Dizziness, Fainting spells, Swelling in the ankles, Chest pain, Prolonged hiccupping, Increased palpitations (irregular heartbeat), Calf discomfort and Uncontrolled pain Meaningful Use Info Meaningful Use Diagnoses (Choose all that apply): None applicable Discharge Plan Admission Admit Date/Time: 09/01/21 13:32 Primary Reason for Your Visit: ischemic colitis Attending Provider: Toño Salas Primary Care Provider: Cody Billings Discharge Orders/Prescriptions Prescriptions: New budesonide 3 mg Capsule,Delayed,Extend.Release 9 mg PO DAILY Qty: 30 RF: 1 hydrocortisone acetate [Anucort-HC] 25 mg Suppository 50 mg [place] DAILY Qty: 42 RF: 0 sulfamethoxazole-trimethoprim 800-160 mg Tablet 1 tab PO BID Qty: 6 RF: 0 Continued nystatin [Nyamyc] 100,000 unit/gram Powder 1 applic topical TID Qty: 0 RF: 0 albuterol sulfate [Ventolin HFA] 90 mcg/actuation Hfa Aerosol Inhaler 1 puff inhalation Q4H PRN PRN (Reason: SHORTNESS OF BREATH) Qty: 0 RF: 0 ondansetron 4 mg Tablet,Disintegrating 4 mg PO Q6H PRN PRN (Reason: NAUSEA) Qty: 0 RF: 0 menthol-zinc oxide [Calmoseptine] 0.44-20.6 % Ointment 1 applic topical BID Qty: 0 RF: 0 guaifenesin [Mucus Relief ER] 600 mg Tablet Extended Release 12hr 1,200 mg PO BID Qty: 0 RF: 0 Alfredo (with collagen) 7-7-1.5 gram Powder In Packet 1 packet PO BIDCM Qty: 0 RF: 0 tramadol 50 mg Tablet 50 mg PO Q6H PRN (Reason: Pain) RF: 0 cholecalciferol (vitamin D3) 50 mcg (2,000 unit) Capsule 250 mcg PO DAILY RF: 0 wheat dextrin 1 gram Tablet 2 g PO BID RF: 0 loperamide 2 mg capsule 4 mg PO TID RF: 0 acidophilus-pectin, citrus 25 million cell -100 mg tablet 1 tab PO BID RF: 0 aspirin 81 mg Tablet,Chewable 81 mg PO DAILY@0800 Qty: 0 RF: 0 Changed pantoprazole 40 mg tablet,delayed release (DR/EC) 40 mg PO BIDCM Qty: 60 RF: 0 Discontinued Leg Cramp Relief Capsule 3 cap PO DAILY RF: 0 Constat Extra 2 cap PO/SL TID RF: 0 Db-7 2 cap PO/SL BID RF: 0 Referrals / Follow Up: Lori Hernandez MD [STAFF PHYSICIAN] - Within 2 Weeks (for mild right hydronep hrosis and tiny right UV junction stone) Cody Billings MD [Primary Care Provider] - In 1 Week Bandar Melissa DO [STAFF PHYSICIAN] - Within 2 Weeks (for ischemic colitis) Disposition Disposition (needs filled in before D/C Order can be placed): Home Health Service Charges/Coding Visit Charges Inpatient E&M: 35587 Disch Hosp
[2021-09-04] MEDS: Juven (unflavored) Packet 1 PACKET PO (09:27)
[2021-09-04] MEDS: Budesonide 3 MG CAPSULE.EC 9 MG PO (09:27)
[2021-09-04] MEDS: Pantoprazole Sodium 40 MG Tablet PO (09:28)
[2021-09-04] MEDS: Smz/Tmp Ds Tablet 1 TABLET PO (09:28)
[2021-09-04] MEDS: Menthol/Lanolin/Calamine/Znox 113 GM Tube 1 APPLIC TOPICAL (09:28)
[2021-09-04] MEDS: Hydrocortisone 25 MG Suppository 50 MG RC (09:28)
[2021-09-04 09:30] VITALS: BP 171/71; PULSE 67; RESP 18; TEMP 36.7; O2SAT 98
[2021-09-04 09:45] VITALS: O2SAT 99
[2021-09-04 12:06] LABS: Bedside Glucose 131 mg/dL (70-110)
[2021-09-04 12:45] VITALS: BP 128/73; PULSE 68; RESP 18; TEMP 36.6; O2SAT 100
--- NOTE | 2021-09-04 14:58 | NURSING ---
reviewed charting by Briana Moseley, student RN
--- NOTE | 2021-09-06 14:44 | CASEMGMT ---
CINDI BLOUNT Discharge Follow Up Phone Call: HELGA: 13 Strata:3 Call Date: 09/06/21 Discharge Date: 09/04/21 Time of Call:1442 Duration:<1 min Admitting Dx:GI Bleed CINDI BLOUNT attempted to complete follow up phone call after recent hospitalization. Left message on identified voicemail with reason for the call and return call back number.
== END 2021-09-04 14:51 | disposition home health service (06) | DRG 393 ==
LOC: ED 15:30 → MS3 16:33
PROVIDERS: Anesthesiology; Internal Medicine Gastroenterology; Admitting Provider Family Medicine; Emergency Provider Emergency Medicine; PCP Family Medicine; Visit Provider Internal Medicine
PROC: 0DJD8ZZ Inspection of Lower Intestinal Tract, Via Natural or Artificial Opening Endoscopic (ICD-10-PCS; CPT 45378; principal; 2021-09-02 16:25)
DX: K55.9 Vascular disorder of intestine, unspecified (principal); E43 Unspecified severe protein-calorie malnutrition; K63.3 Ulcer of intestine; N13.6 Pyonephrosis; K60.2 Anal fissure, unspecified; K57.30 Diverticulosis of large intestine without perforation or abscess without bleeding; E11.42 Type 2 diabetes mellitus with diabetic polyneuropathy; K21.9 Gastro-esophageal reflux disease without esophagitis; J44.9 Chronic obstructive pulmonary disease, unspecified; D50.9 Iron deficiency anemia, unspecified; M47.812 Spondylosis without myelopathy or radiculopathy, cervical region; G43.909 Migraine, unspecified, not intractable, without status migrainosus; E11.51 Type 2 diabetes mellitus with diabetic peripheral angiopathy without gangrene; R32 Unspecified urinary incontinence; N81.10 Cystocele, unspecified; B96.20 Unspecified Escherichia coli [E. coli] as the cause of diseases classified elsewhere; M47.896 Other spondylosis, lumbar region; Z79.899 Other long term (current) drug therapy; Z79.82 Long term (current) use of aspirin; Z86.718 Personal history of other venous thrombosis and embolism; Z68.24 Body mass index [BMI] 24.0-24.9, adult; Z86.73 Personal history of transient ischemic attack (TIA), and cerebral infarction without residual deficits
CPT/HCPCS: 36415; 74174; 74176; 80048; 80053; 81001; 82274; 82962; 83036; 83605; 83630; 83735; 84100; 85014; 85018; 85025; 85027; 85610; 85730; 86850; 86900; 86901; 87086; 87088; 87186; 87426; 87493; 87506; 88305; 93005; 97162; 97166; 97535; 97802; 97803; 99251; 99284; J7030; Q9967; A4216; G0463; J2405

== ENCOUNTER → 2021-09-16 14:33 | Outpatient (CLI) | payer MEDICARE, OTHER, SELFPAY ==
[2021-09-16 15:33] LABS: Platelet Count 292 K/mm3 (150-450); RET-HE 36.8 pg (30-35); Reticulocyte Count 1.78 % (0.5-1.5)
[2021-09-16 16:10] LABS: Ferritin 638 ng/mL (8-252); Iron 83 ug/dL (50-170); Iron Binding Capacity,Total 309 ug/dL (250-450); PERCENT IRON SATURATION 26.9 % (15.0-55.0)
== END ==
PROVIDERS: PCP Family Medicine; Referring Provider Internal Medicine Gastroenterology; Visit Provider Internal Medicine Gastroenterology
DX: E11.9 Type 2 diabetes mellitus without complications (principal); K52.9 Noninfective gastroenteritis and colitis, unspecified; E46 Unspecified protein-calorie malnutrition
CPT/HCPCS: 36415; 82728; 83540; 83550; 85045

== ENCOUNTER 2021-12-23 11:00 | Outpatient (RCR) | payer MEDICARE, OTHER, SELFPAY ==
[2021-12-16 11:45] VITALS: BP 166/73; PULSE 68; RESP 18; TEMP 36.3
--- NOTE | 2021-12-16 13:43 | PCM.WC.HP ---
History of Present Illness Date of Service: 12/16/21 Chief Complaint: Left foot ulcer History of Wound: Ms. Serra is a 66-year-old known to the wound center who was referred here by her weekend anchor due to right heel ulcer. Noted about 3 weeks ago. Believes it may have happened following repeated rubbing of her heel on her bed. She has been applying Medihoney however no significant improvement. She believes her last A1c was 7.6. Currently on DB 7 which she states that she takes for diabetes. She states that her numbers have been well controlled until yesterday where she had a reading in the 200s. Follows up with her primary care physician in [place]. Regarding gout also, she denies any significant drainage, chills or feeling of unwell. She is also on budesonide prescribed by GI for ischemic colitis. [facility] Medical History (Updated 12/16/21 @ 13:[address] Дмитрий Barrera MD) Asthma Decubitus ulcer of right heel, stage 3 Deep venous thrombosis of distal end of left lower extremity Diabetic foot ulcer Diarrhea Gastroesophageal reflux disease Ischemic colitis Migraine Osteoarthritis of cervical and lumbar spine Type 2 diabetes mellitus Type 2 diabetes mellitus with diabetic polyneuropathy Home Medications Alfredo (with collagen) 1 packet PO BIDCM #0 ea 03/25/21 [Rx Last Taken 08/30/21] albuterol sulfate [Ventolin HFA] 1 puff INHALATION Q4H PRN PRN #0 g 03/25/21 [Rx Last Taken Unknown] guaifenesin [Mucus Relief ER] 1,200 mg PO BID #0 tab 03/25/21 [Rx Last Taken 08/30/21] menthol-zinc oxide [Calmoseptine] 1 applic TOPICAL BID #0 g 03/25/21 [Rx Last Taken 08/30/21] nystatin [Nyamyc] 1 applic TOPICAL TID #0 g 03/25/21 [Rx Last Taken 08/30/21] ondansetron 4 mg PO Q6H PRN PRN #0 tab 03/25/21 [Rx Last Taken Unknown] tramadol 50 mg PO Q6H PRN 05/18/21 [History Last Taken Unknown] acidophilus-pectin, citrus 1 tab PO BID 08/31/21 [History Last Taken 08/30/21] cholecalciferol (vitamin D3) 250 mcg PO DAILY 08/31/21 [History Last Taken 08/30/21] loperamide 4 mg PO TID 08/31/21 [History Last Taken 08/30/21] hydrocortisone acetate [Anucort-HC] 50 mg UT DAILY #42 ea 09/04/21 [Rx Last Taken Unknown] pantoprazole 40 mg PO BIDCM #60 tab 09/04/21 [Rx Last Taken Unknown] hydrocortisone 2.5 % topical cream with perineal applicator 1 applic UT QD-BID PRN #30 g 09/07/21 [Rx Last Taken Unknown] colestipol 1 gram tablet See Rx Instructions .ROUTE .COMPLEX #90 tab 12/12/21 [Rx Last Taken Unknown] budesonide 3 mg capsule,delayed,extended release 9 mg PO DAILY #30 ea 12/14/21 [Rx Last Taken Unknown] Db 7 2 cap Q8 12/16/21 [History Last Taken Unknown] Allergy/AdvReac Type Severity Reaction Status Date / Time cefprozil Allergy Shortness Verified 11/30/21 11:43 of breath ceftriaxone Allergy Hives Verified 11/30/21 11:43 clindamycin Allergy Rash Verified 11/30/21 11:43 enalapril Allergy Other Verified 11/30/21 11:43 enoxaparin Allergy Rash Verified 11/30/21 11:43 heparin Allergy Rash Verified 11/30/21 11:43 levalbuterol Allergy Other Verified 11/30/21 11:43 morphine Allergy Shortness Verified 11/30/21 11:43 of breath Penicillins Allergy Anaphylaxis Verified 11/30/21 11:43 shellfish derived Allergy Anaphylaxis Verified 11/30/21 11:43 valsartan Allergy Other Verified 11/30/21 11:43 vancomycin Allergy Rash Verified 11/30/21 11:43 Family History Mother Cancer Lung CA w/ tobacco use history. Diabetes COPD (chronic obstructive pulmonary disease) Father Cancer Lung CA w/ tobacco use history. Diabetes COPD (chronic obstructive pulmonary disease) Heart disease Surgical History History of appendectomy History of eye surgery History of foot surgery History of lumpectomy History of tubal ligation Social History household members: none Smoking Status: Never smoker alcohol intake: never substance use type: does not use ROS Review of Systems ROS Unobtainable: other Constitutional Constitutional: Denies fatigue, fever(s), poor appetite, weight gain or weight loss ENT HEENT: Denies mouth lesions Cardiovascular Cardiovascular: Denies abdominal bloating, abdominal edema or abdominal pain Respiratory/Chest Respiratory/Chest: Denies change in mental status, change in phlegm color, chest congestion or chest tightness Gastrointestinal Gastrointestinal: Denies belching, bloating, change in bowel habits, change in stool character, chewing difficulty, coffee ground emesis, constipation, cramping, diarrhea, dyspepsia, dysphagia, early satiety, excessive flatus, fecal incontinence, heartburn, hematemesis, hematochezia, hemorrhoids, loose stools, melena, nausea, odynophagia, rectal bleeding, tenesmus, vomiting or weight changes Genitourinary Genitourinary: Denies abdominal discomfort, burning urination or itching Musculoskeletal Musculoskeletal: Reports as per HPI; Denies muscle weakness or myalgias Integumentary Integumentary: Denies jaundice Neurologic Neurologic: Denies lack of coordination or weakness Psychiatric Psychiatric: Denies confusion, depression, memory loss, mood swings, paranoia or suicidal ideation Endocrine Endocrinology: Denies systems reviewed and no addt'l complaints, except as documented Hematologic/Lymphatic Hematologic/Lymphatic: Denies anemia, easy bleeding, easy bruising or lymphadenopathy Allergic/Immunologic Allergic/Immunologic: Denies systems reviewed and no addt'l complaints, except as documented Vital Signs Vital Signs Vital Signs: 12/16/21 11:45 Temperature 97.4 F L Temperature Source Temporal Pulse Rate 68 Respiratory Rate 18 Blood Pressure 166/73 H Blood Pressure Mean 104 Blood Pressure Source Monitor Blood Pressure Position Semi-Fowlers Blood Pressure Location Left Arm Physical Exam Const alert, oriented x3 and no apparent distress General Appearance: cooperative, comfortable and well kempt HEENT normocephalic and head/scalp atraumatic Head and Scalp: normal to inspection, normocephalic and atraumatic Neck full ROM General: normal visual inspection Resp normal respiratory effort Effort and Inspection: able to speak in complete sentences Skin Wounds: wounds noted Neuro oriented x3, CN's II-XII intact bilaterally, moves all extremities and no focal motor deficits Psych Appearance: grossly normal Activity / Motor Behavior: appropriate eye contact Speech: normal speech Debridement Note Debridement Note Wound debrided: Right heel Wound Grade/Stage: Stage III Type of Debridement: Excisional debridement Anesthesia Used: 4% Lidocaine Solution Depth: Down to and including healthy tissue Percentage of wound debrided: 100 Instrument Used: 5mm curette Tissue Removed: Slough and devitalized tissue Severity: Fat Layer Exposed Amount of bleeding with debridement: Mild Bleeding Controlled with: Pressure Patient tolerated procedure: Patient tolerated procedure well Post-Debridement Measurements and Additional Note: Post-Debridement Measurements/Treatment - Nurse 1 - General Ulcer Assessment Start: 12/16/21 11:39 Freq: Status: Active Protocol: [place] Activity Type Activity Date Activity User E-Sign Co-Sign Detail Recorded Client Recorded Date Recorded By Document 12/16/21 11:45 LIDIA [id number] 12/16/21 11:53 RB 12/16/21 11:45 WC - Today's Visit Information Type of service Follow-up Visit (Physician/WIND ENERGY TECHNICIAN ) Arrival Mode Wheelchair Transfer Assistance Manual Patient Identification Verified (Name & Yes ) Vital Signs Temperature (97.8 F-99.1 F) 97.4 F L Temperature Source Temporal Pulse Rate (60-100) 68 Pulse Location Monitor Respiratory Rate (12-18) 18 Respiratory rate source Observation Blood Pressure (90/60-120/80) 166/73 H Blood Pressure Mean 104 Source Monitor Position Semi-Fowlers Blood Pressure Location Left Arm History Since Last Visit- (Skip if this is Patient's initial visit) Have you changed medications since your No last visit? Any new allergies or adverse reactions No Had a fall/change in ADL's that may No increase risk of falls Signs or symptoms of abuse and/or No neglect since last visit Have you been in the hospital since your No last visit? Has dressing in place as prescribed Yes Has compression in place as prescribed Yes Has offloadiing in place as prescribed Yes Experienced any changes in pain level or No management Pain Scale: 0-10 Numeric Is Patient Pain Free? Yes [facility] Nurse 1 - General Ulcer Measurement Start: 12/16/21 11:39 Freq: Status: Active Protocol: Activity Type Activity Date Activity User E-Sign Co-Sign Detail Recorded Client Recorded Date Recorded By Document 12/16/21 11:45 LIDIA [id number] 12/16/21 11:53 RB 02/17/22 11:45 Wound Center Nurse 1 3. R heel -Combined with other wound No -Current Size (cm) - Length 2 -Current Size (cm) - Width 2.3 -Current Size (cm) - Depth 0.3 -Total Square Cm 4.6 -Photo Taken Yes -Tunneling No -Undermining/Tunneling No -Circular Undermining No -Exudate Amt Medium -Exudate Type Serosanguineous -Wound Margin Distinct, Outline Attached -Granulation Amt Medium (34-66%) -Granulation Quality [place] -Slough/Fibrin Yes -Necrosis Amt Small (1-33%) -Necrotic Tissue Type Adherent Slough -Structure Exposed N/A -Texture (Margy-wound Skin Appearance) Assessed,Callus -Moisture (Margy-wound Skin Appearance) Assessed -Color (Margy-wound Skin Appearance) Assessed -Temperature (Margy-wound Skin No Abnormality Appearance) (Pt Warm) -Tenderness on Palpation (Margy-wound No Skin Appearance) -Ulcer Cleansing Wound Cleanser -Foul Odor after Cleansing No -Anesthetic Used 5% Lidocaine Gel Right Calf (cm) 33.5 Right Ankle (cm) 21.7 Left Calf (cm) 34 Left Ankle (cm) 22.5 WC - Nurse 2 - General Ulcer CM Notes Start: 12/16/21 11:39 Freq: Status: Active Protocol: Activity Type Activity Date Activity User E-Sign Co-Sign Detail Recorded Client Recorded Date Recorded By Document 12/16/21 12:14 MW [id number] 12/16/21 12:28 MW 12/16/21 12:14 Wound Center Nurse 2 3. R heel -Time 12:14 -Correct Patient Yes -Correct Side, Site, Position Yes -Correct Procedure Yes -Procedure Performed Yes -Type of Procedure Debridement -Clinical Debridement Subcutaneous -Tissue Removed Subcutaneous -Post Debridement (cm) - Length 2.0 -Post Debridement (cm) - Width 2.0 -Post Debridement (cm) - Depth 0.2 -Total Square (Post) (cm) 4.00 -Area of Debridement (cm) - Length 2.0 -Area of Debridement (cm) - Width 2.0 -Total Square (Area) (cm) 4.00 -Tunneling No -Undermining/Tunneling No -Circular Undermining No -Wound/Ulcer Outcome Not Healed -Ulcer Cleansing Rinsed/ Irrigated with Saline -Foul Odor after Cleansing No -Bioengineered Tissue No -Bleeding Controlled with Pressure -Offloading No -Treatment Response Procedure Tolerated Well -Debridement - Subq, 1st 20sq cm Yes Pain Scale: 0-10 Numeric Is Patient Pain Free? Yes - Nurse 3 - General Ulcer D/C NN Start: 12/16/21 11:39 Freq: Status: Active Protocol: Activity Type Activity Date Activity User E-Sign Co-Sign Detail Recorded Client Recorded Date Recorded By Document 12/16/21 12:37 DL [id number] 12/16/21 12:39 DL 12/16/21 12:37 Wound Care Nurse 3 3. R heel -Ulcer Cleansing Rinsed/ Irrigated with Saline -Foul Odor after Cleansing No -Other Dressing hydrogeltoday -Primary Dressing Covered/Secured with Dry Gauze & Roll Gauze, Secured with Tape -Other Covering nurses hat Treatment Response Procedure Tolerated Well Pain Scale: 0-10 Numeric Is Patient Pain Free? Yes WC - Visit Discharge Discharge Condition Stable Ambulatory Status Wheelchair Transportation Private Auto Charges/Coding Visit Charges Office Visits / Consults: 13105 OV L4 Est Procedures Integumentary [id number]: [id number] Vandana subq tissue 20 sq cm/< Assessment/Plan Assessment/Plan (1) Decubitus ulcer of right heel, stage 3: CODE(S): L89.613 - Pressure ulcer of right heel, stage 3 (2) Type 2 diabetes mellitus: CODE(S): E11.9 - Type 2 diabetes mellitus without complications (3) Ischemic colitis: CODE(S): K55.9 - Vascular disorder of intestine, unspecified (4) PAD (peripheral artery disease): CODE(S): I73.9 - Peripheral vascular disease, unspecified (5) Diabetic neuropathy: CODE(S): E11.40 - Type 2 diabetes mellitus with diabetic neuropathy, unspecified PLAN: 3-week history of right heel ulcer with fat layer exposed. Poorly controlled diabetes mellitus, most recent A1c at 7.6. History of ischemic colitis currently on budesonide. Also documented history of peripheral arterial disease. Debridement done as documented above, procedure was well-tolerated. Cultures taken. Paul for 1 to 2 weeks and then I believe she would benefit from an advanced skin substitute due to her comorbidities and risk for delayed healing. Prior history of osteomyelitis and amputation. Application process begun. Optimal diabetes control strongly recommended, CBC, CMP, CRP and ESR ordered. A1c also ordered. Increase protein intake, vitamin C MD discussed. She voiced understanding. Her questions were answered and she was advised to call with any further questions or concerns. Follow-up in 1 week. This note was generated with [employer] dictation software. It may contain incorrect words, spelling, and punctuation that were not noted in checking the note before signing.
[2021-12-16 16:30] LABS: Absolute Lymphocyte Count 3.91 X10^3/uL (0.83-4.51); Absolute Neutrophil Count 4.2 X10^3/uL (2.0-7.7); Basophil# 0.11 X10^3/uL; Basophil% 1.2 % (0-1); Eosinophil# 0.74 X10^3/uL; Eosinophils% 7.8 % (0-5); Hematocrit 34.9 % (37-47); Hemoglobin 11.4 g/dL (12.0-15.0); Lymphocyte # 3.91 X10^3/ul (0.83-4.51); Mean Corp Hgb Conc 32.7 g/dL (32-36); Mean Corpuscular Hgb 30.4 pg (27.0-32.0); Mean Corpuscular Volume 93.1 fL (81-99); Mean Platelet Vol. 10.4 fl (6.2-12.0); Monocyte% 6.3 % (0-10); NRBC Flagged by Analyzer 0 % (0-5); Neutrophil # 4.15 X10^3/uL (2.7-7.7); Neutrophil % 43.4 % (47-70); Platelet Count 271 K/mm3 (150-450); RBC Distribution Width CV 12.4 % (11.6-14.6); RBC Distribution Width SD 42.5 fl (35.1-43.9); Red Blood Count 3.75 M/mm3 (4.2-5.4); White Blood Count 9.5 K/mm3 (4.4-11.0)
[2021-12-16 16:38] LABS: Erythrocyte Sedimentation Rate 40 mm/hr (0-30)
[2021-12-16 17:34] LABS: ALB/GLOB Ratio 0.6 RATIO (0.9-2.4); AST(SGOT) 23 U/L (15-37); Alanine Aminotransfer ALT/SGPT 25 U/L (13-56); Albumin, Serum 3.2 g/dL (3.2-5.0); Alkaline Phosphatase 142 U/L (45-117); Anion Gap 5 (5-15); BUN 31 mg/dL (7-18); BUN/Creat Ratio 43.1 RATIO (10-20); CRP 5.92 mg/L (0.0-3.0); Calcium,Total 8.9 mg/dL (8.5-10.1); Chloride 103 mmol/L (98-107); Creatinine, Serum 0.72 mg/dL (0.55-1.02); EST Glomerular Filtration Rate 86 mL/min (>60); Est Glom Filt Rate - Afr Amer 104 mL/min (>60); Globulin 5.7 g/dL (2.2-4.2); Glucose 131 mg/dL (74-106); Potassium 4.3 mmol/L (3.5-5.1); Protein, Total 8.9 g/dL (6.4-8.2); Sodium Level 136 mmol/L (136-145)
[2021-12-23 11:06] VITALS: BP 193/91; PULSE 64; RESP 16; TEMP 35.9
--- NOTE | 2021-12-23 12:57 | PN.PCM_ITS ---
History of Present Illness Date of Service: 12/23/21 Chief Complaint: Right Foot/Heel ulcer History of Wound: Ms. Serra is a 66-year-old known to the wound center who was referred here by her thermal molder due to right heel ulcer. Noted about 3 weeks ago. Believes it may have happened following repeated rubbing of her heel on her bed. She has been applying Medihoney however no significant improvement. She believes her last A1c was 7.6. Currently on DB 7 which she states that she takes for diabetes. She states that her numbers have been well controlled until yesterday where she had a reading in the 200s. Follows up with her primary care physician in [place]. Regarding gout also, she denies any significant drainage, chills or feeling of unwell. She is also on budesonide prescribed by GI for ischemic colitis. Progress of Wound: Right heel is stable. Now approved for epi fix. However, now presents with left fifth digit ulcer. She states that it started out as a small pinhole but has progressed. Denies any known precipitating factor. Subjective Subjective No acute concerns Objective Data Objective Data Vital Signs: Vital Signs Temp Pulse Resp BP 96.6 F L 64 16 193/91 H 12/23/21 11:06 12/23/21 11:06 12/23/21 11:06 12/23/21 11:06 Lab / Micro Data Result Diagrams: 12/16/21 15:50 12/16/21 15:50 Micro: Microbiology 12/16/21 12:20 Wound Abcess - Heel Right Gram Stain - Final 12/16/21 12:20 Wound Abcess - Heel Right Wound Culture - Final Meth. resistant Staph. aureus Staphylococcus epidermidis 12/16/21 12:20 Wound Abcess - Heel Right Anaerobic Culture - Final No anaerobic bacteria isolated. Charges/Coding Procedures Integumentary 111xxx-113xx: 61660 Vandana subq tissue 20 sq cm/< 150xxx-152xx: 05288 Skin sub graft trnk/arm/leg Physical Exam Const alert, oriented x3 and no apparent distress General Appearance: cooperative, comfortable and well kempt HEENT normocephalic and head/scalp atraumatic Head and Scalp: normal to inspection, normocephalic and atraumatic Neck full ROM General: normal visual inspection Resp normal respiratory effort Effort and Inspection: able to speak in complete sentences Skin Wounds: wounds noted Neuro oriented x3, CN's II-XII intact bilaterally, moves all extremities and no focal motor deficits Psych Appearance: grossly normal Activity / Motor Behavior: appropriate eye contact Speech: normal speech Debridement Note Debridement Note Wound debrided: Right heel Type of Debridement: Excisional debridement Anesthesia Used: 4% Lidocaine Solution Depth: Down to and including healthy tissue and in the subcutaneous layer Percentage of wound debrided: 100 Instrument Used: 5mm curette Tissue Removed: Slough and devitalized tissue Severity: Fat Layer Exposed Amount of bleeding with debridement: Mild Bleeding Controlled with: Pressure Patient tolerated procedure: Patient tolerated procedure well Post-Debridement Measurements and Additional Note: Post-Debridement Measurements/Treatment - Nurse 1 - General Ulcer Assessment Start: 12/16/21 11:39 Freq: Status: Active Protocol: [place] Activity Type Activity Date Activity User E-Sign Co-Sign Detail Recorded Client Recorded Date Recorded By Document 12/16/21 11:45 RB [id number] 12/16/21 11:53 RB Document 12/23/21 11:06 DIONI [id number] 12/23/21 11:19 DIOIN 12/16/21 12/23/21 11:45 11:06 - Today's Visit Information Type of service Follow-up Visit Follow-up Visit (Physician/GENERAL LEDGER BOOKKEEPER (Physician/GENERAL LEDGER BOOKKEEPER ) ) Arrival Mode Wheelchair Ambulatory Transfer Assistance Manual Patient Identification Verified (Name & Yes Yes ) Patient Requires Transmission-Based No Precautions Finger Stick Blood Sugar(mg/dl) (if 184 indicated): Blood Sugar Stated by Patient Vital Signs Temperature (97.8 F-99.1 F) 97.4 F L 96.6 F L Temperature Source Temporal Temporal Pulse Rate (60-100) 68 64 Pulse Location Monitor Monitor Respiratory Rate (12-18) 18 16 Respiratory rate source Observation Observation Blood Pressure (90/60-120/80) 166/73 H 193/91 H Blood Pressure Mean (mm Hg) 104 125 Source Monitor Monitor Position Semi-Fowlers Semi-Fowlers Blood Pressure Location Left Arm Left Arm History Since Last Visit- (Skip if this is Patient's initial visit) Have you changed medications since your No No last visit? Any new allergies or adverse reactions No No Had a fall/change in ADL's that may No No increase risk of falls Signs or symptoms of abuse and/or No No neglect since last visit Have you been in the hospital since your No No last visit? Has dressing in place as prescribed Yes Yes Has compression in place as prescribed Yes Yes Has offloadiing in place as prescribed Yes Yes Experienced any changes in pain level or No No management Left Footwear Regular Shoe Right Footwear Regular Shoe Pain Scale: 0-10 Numeric Is Patient Pain Free? Yes Yes WC - Nurse 1 - General Ulcer Measurement Start: 12/16/21 11:39 Freq: Status: Active Protocol: Activity Type Activity Date Activity User E-Sign Co-Sign Detail Recorded Client Recorded Date Recorded By Document 12/16/21 11:45 RB [id number] 12/16/21 11:53 RB Document 12/23/21 11:06 JF [id number] 12/23/21 11:19 JF 12/16/21 12/23/21 11:45 11:06 Wound Center Nurse 1 4-left hand 5th digit -Combined with other wound No -Current Size (cm) - Length 0.7 -Current Size (cm) - Width 0.5 -Current Size (cm) - Depth 0.2 -Total Square Cm 0.35 -Photo Taken Yes -Epithelialization None Present -Tunneling No -Circular Undermining No -Exudate Amt None Present -Wound Margin Indistinct, Non -Visible -Granulation Amt None Present (0 %) -Slough/Fibrin Yes -Necrosis Amt Large (67-100%) -Necrotic Tissue Type Adherent Slough -Structure Exposed N/A -Texture (Margy-wound Skin Appearance) Assessed -Moisture (Margy-wound Skin Appearance) Assessed,Dry/ Scaly -Color (Margy-wound Skin Appearance) Assessed -Temperature (Margy-wound Skin No Abnormality Appearance) (Pt Warm) -Tenderness on Palpation (Margy-wound No Skin Appearance) -Ulcer Cleansing Rinsed/ Irrigated with Saline -Foul Odor after Cleansing No -Anesthetic Used 5% Lidocaine Gel 3. R heel -Combined with other wound No No -Current Size (cm) - Length 2 1.7 -Current Size (cm) - Width 2.3 2.0 -Current Size (cm) - Depth 0.3 0.2 -Total Square Cm 4.6 3.40 -Photo Taken Yes Yes -Epithelialization Small 1-33% -Tunneling No No -Undermining/Tunneling No No -Circular Undermining No No -Exudate Amt Medium Small -Exudate Type Serosanguineous Serosanguineous -Wound Margin Distinct, Flat & Intact Outline Attached -Granulation Amt Medium (34-66%) Small (1-33%) -Granulation Quality [place] -Slough/Fibrin Yes Yes -Necrosis Amt Small (1-33%) Large (67-100%) -Necrotic Tissue Type Adherent Slough Adherent Slough -Structure Exposed N/A N/A -Texture (Margy-wound Skin Appearance) Assessed,Callus Assessed -Moisture (Margy-wound Skin Appearance) Assessed Assessed,Dry/ Scaly -Color (Margy-wound Skin Appearance) Assessed Assessed -Temperature (Margy-wound Skin No Abnormality No Abnormality Appearance) (Pt Warm) (Pt Warm) -Tenderness on Palpation (Margy-wound No No Skin Appearance) -Ulcer Cleansing Wound Cleanser Rinsed/ Irrigated with Saline -Foul Odor after Cleansing No No -Anesthetic Used 5% Lidocaine 5% Lidocaine Gel Gel Lower Limb Edema Present NA Right Calf (cm) 33.5 Right Ankle (cm) 21.7 Left Calf (cm) 34 Left Ankle (cm) 22.5 WC - Nurse 2 - General Ulcer CM Notes Start: 12/16/21 11:39 Freq: Status: Active Protocol: Activity Type Activity Date Activity User E-Sign Co-Sign Detail Recorded Client Recorded Date Recorded By Document 12/16/21 12:14 MW [id number] 12/16/21 12:28 MW Document 12/23/21 11:31 MW [id number] 12/23/21 11:51 MW 12/16/21 12/23/21 12:14 11:31 Wound Center Nurse 2 4-left hand 5th digit -Time 11:43 -Correct Patient Yes -Correct Side, Site, Position Yes -Correct Procedure Yes -Procedure Performed Yes -Type of Procedure Debridement -Clinical Debridement Subcutaneous -Tissue Removed Subcutaneous -Post Debridement (cm) - Length 1.0 -Post Debridement (cm) - Width 0.4 -Post Debridement (cm) - Depth 0.1 -Total Square (Post) (cm) 0.40 -Area of Debridement (cm) - Length 1.0 -Area of Debridement (cm) - Width 0.4 -Total Square (Area) (cm) 0.40 -Tunneling No -Undermining/Tunneling No -Circular Undermining No -Wound/Ulcer Outcome Not Healed -Ulcer Cleansing Rinsed/ Irrigated with Saline -Foul Odor after Cleansing No -Bioengineered Tissue No -Bleeding Controlled with Pressure -Offloading No -Treatment Response Procedure Tolerated Well -Debridement - Subq, 1st 20sq cm Yes 3. R heel -Time 12:14 11:32 -Correct Patient Yes Yes -Correct Side, Site, Position Yes Yes -Correct Procedure Yes Yes -Procedure Performed Yes Yes -Type of Procedure Debridement Debridement -Clinical Debridement Subcutaneous Subcutaneous -Tissue Removed Subcutaneous Subcutaneous -Post Debridement (cm) - Length 2.0 1.5 -Post Debridement (cm) - Width 2.0 1.6 -Post Debridement (cm) - Depth 0.2 0.1 -Total Square (Post) (cm) 4.00 2.40 -Area of Debridement (cm) - Length 2.0 1.5 -Area of Debridement (cm) - Width 2.0 1.6 -Total Square (Area) (cm) 4.00 2.40 -Tunneling No No -Undermining/Tunneling No No -Circular Undermining No No -Wound/Ulcer Outcome Not Healed Not Healed -Ulcer Cleansing Rinsed/ Rinsed/ Irrigated with Irrigated with Saline Saline -Foul Odor after Cleansing No No -Bioengineered Tissue No Yes -Type of Bioengineered Tissue Epifix 18mm Disc -Expiration Date 08/30/26 -Product Lot Number [id number] -Percent Used 100 -Lot number of Saline Used [id number] -Bleeding Controlled with Pressure Pressure -Offloading No No -Treatment Response Procedure Procedure Tolerated Well Tolerated Well -Debridement - Subq, 1st 20sq cm Yes No -Apply Skin Sub - 1st 25 sq cm - Feet 1 -Epifix 18mm Disc 3 Pain Scale: 0-10 Numeric Is Patient Pain Free? Yes Yes WC - Nurse 3 - General Ulcer D/C NN Start: 12/16/21 11:39 Freq: Status: Active Protocol: Activity Type Activity Date Activity User E-Sign Co-Sign Detail Recorded Client Recorded Date Recorded By Document 12/16/21 12:37 DL [id number] 12/16/21 12:39 DL Document 12/23/21 11:51 MW [id number] 12/23/21 11:54 MW 12/16/21 12/23/21 12:37 11:51 Wound Care Nurse 3 4-left hand 5th digit -Ulcer Cleansing Rinsed/ Irrigated with Saline -Foul Odor after Cleansing No -Negative Pressure Wound Therapy N/A -Primary Dressing Applied Promogran -Primary Dressing Covered/Secured with Dry Gauze, Secured with Tape -Promogran 1 3. R heel -Ulcer Cleansing Rinsed/ Not Cleansed Irrigated with Saline -Foul Odor after Cleansing No -Other Dressing hydrogeltoday -Primary Dressing Covered/Secured with Dry Gauze & Dry Gauze & Roll Gauze, Roll Gauze, Secured with Secured with Tape Tape -Other Covering nurses hat abd nurse hat Right -Lotion applied to leg before No compression wrap -Tubular Bandage Single Layer -Size of Tubigrip Used Size D -Size D ($) 1 Treatment Response Procedure Procedure Tolerated Well Tolerated Well Pain Scale: 0-10 Numeric Is Patient Pain Free? Yes Yes Teaching: Wound Center Dressing Your Wound -Person Taught Patient -Teaching Method Discussion -Response to teaching Verbalize understanding WC - Visit Discharge Discharge Condition Stable Stable Ambulatory Status Wheelchair Wheelchair Transportation Private Auto Private Auto Accompanied by self Medication Reconcilliation completed & No provided to patient/care provider Clinical Summary of Care Provided Yes Additional Wound Wound debrided: Left Fifth Finger Type of Debridement: Excisional debridement Anesthesia Used: 4% Lidocaine Solution Depth: Down to and including healthy tissue and in the subcutaneous layer Percentage of wound debrided: 100 Instrument Used: 3mm curette Tissue Removed: Slough and devitalized tissue Severity: Fat Layer Exposed Amount of bleeding with debridement: Mild Bleeding Controlled with: Pressure Patient tolerated procedure: Patient tolerated procedure well Assessment/Plan Assessment/Plan (1) Decubitus ulcer of right heel, stage 3: CODE(S): L89.613 - Pressure ulcer of right heel, stage 3 (2) Type 2 diabetes mellitus: CODE(S): E11.9 - Type 2 diabetes mellitus without complications (3) Ischemic colitis: CODE(S): K55.9 - Vascular disorder of intestine, unspecified (4) PAD (peripheral artery disease): CODE(S): I73.9 - Peripheral vascular disease, unspecified (5) Diabetic neuropathy: CODE(S): E11.40 - Type 2 diabetes mellitus with diabetic neuropathy, unspecified (6) Skin ulcer of finger with fat layer exposed: CODE(S): L98.492 - Non-pressure chronic ulcer of skin of other sites with fat layer exposed PLAN: New left fifth finger ulcer with fat layer exposed. Right heel ulcer is stable. Now approved for epi fix. Debridement done to both ulcers as documented above, procedure was well-tolerated. Initial application of epifix to right heel done today using 100% of product. Moistened with hydrogel, co shar with wound veil and secured with Steri-Strips. Leave in place for a week. Promogran to left fifth finger, cover with gauze and change daily. Culture reviewed, started on doxycycline, patient states that she has tolerated this in the past. Optimal diabetes control strongly recommended, CBC, CMP, CRP and ESR ordered. A1c also ordered. Increase protein intake, vitamin C MD discussed. She voiced understanding. Her questions were answered and she was advised to call with any further questions or concerns. Follow-up in 1 week. This note was generated with [employer] dictation software. It may contain incorrect words, spelling, and punctuation that were not noted in checking the note before signing.
--- NOTE | 2022-02-15 09:53 | VDLE_ITS ---
Reason For Study: ulcer, edema RIGHT LEFT CFV is compressible, spontaneous, phasic, CFV is dilated and noncompressible with competent and demonstrates normal decreased flow. augmentation. Profunda V is noncompressible. FV is compressible, spontaneous, phasic, Prox and mid FV are compressible. Distal FV competent and demonstrates normal is noncompressible. augmentation. POP V is partially compressible with POP V is compressible, spontaneous, phasic, decreased flow. competent and demonstrates normal T/P Trunk is partially compressible. augmentation. Peroneal V is dilated and noncompressible. T/P Trunk is compressible. PTV is compressible. PTV is compressible. SFJ is competent and measures .58 cm. RT PerV is compressible. GSV proximal thigh measures .5 x .51 cm. SFJ is competent and measures .7 cm. GSV at knee measures .29 x .33 cm. GSV proximal thigh measures .22 x .23 cm. GSV is competent throughout. GSV at knee measures .22 x .22 cm. SSV proximal calf is INCOMPETENT for greater GSV above knee is competent. than 0.5 seconds and measures .25 x .27 cm. GSV below knee is INCOMPETENT for greater than 0.5 seconds. SSV proximal calf is INCOMPETENT for greater than 0.5 seconds and measures .24 x .25 cm. Procedure Exam performed in department. This is a venous duplex using B-mode, color flow and spectral Doppler. The exam was diagnostic. A preliminary report was called and/or faxed to Dr. Barrera. Pt taken to ED per Dr. Barrera. VL/Venous Duplex US - Everardo Extrem Interpretation Summary Acute deep vein thrombosis is noted in the left common femoral vein. Acute deep vein thrombosis is noted in the left femoral vein. Acute deep vein thrombosis is noted in the left popliteal vein. Acute deep vein thrombosis is noted in the left tibio-peroneal trunk. Acute zeke p vein thrombosis is noted in the left peroneal vein. Acute deep vein thrombosis is noted in the lef t profunda femoris vein. The left posterior tibial vein is patent and compressible. Deep veins of the right lower extremity are patent and compressible segmentally. There is no evidence of righ t lower extremity deep vein thrombosis. Valvular competence appears intact within the proximal de ep venous system on the right . The great saphenous veins appear bilaterally patent and compressibl e segmentally. Sapheno-femoral junctions are bilaterally competent . The right great saphenous vein appears competent above the knee. The right great saphenous vein appears incompetent be low the knee. The left great saphenous vein appears segmentally competent. Small saphenous veins are patent and incompetent bilaterally. Ordering Physician: Дмитрий Barrera Performed By: Shamar Landry RVT
== END 2021-12-27 23:59 ==
LOC: WC 11:00
PROVIDERS: PCP Family Medicine; Visit Provider Internal Medicine
DX: E11.621 Type 2 diabetes mellitus with foot ulcer (principal); L89.613 Pressure ulcer of right heel, stage 3; E11.51 Type 2 diabetes mellitus with diabetic peripheral angiopathy without gangrene; E11.42 Type 2 diabetes mellitus with diabetic polyneuropathy; K55.9 Vascular disorder of intestine, unspecified; J45.909 Unspecified asthma, uncomplicated; Z86.718 Personal history of other venous thrombosis and embolism; Z79.899 Other long term (current) drug therapy
CPT/HCPCS: 11042; 15275; 36415; 80053; 83036; 85025; 85652; 86140; 87070; 87075; 87077; 87186; 87205; 99213; Q4186; G0463

== ENCOUNTER 2022-01-05 14:14 | Outpatient (CLI) | payer MEDICARE, OTHER, SELFPAY ==
[2022-01-05 14:59] LABS: Absolute Lymphocyte Count 2.97 X10^3/uL (0.83-4.51); Absolute Neutrophil Count 6.4 X10^3/uL (2.0-7.7); Basophil# 0.08 X10^3/uL; Basophil% 0.8 % (0-1); Eosinophil# 0.09 X10^3/uL; Eosinophils% 0.9 % (0-5); Hematocrit 33.4 % (37-47); Hemoglobin 11.3 g/dL (12.0-15.0); Lymphocyte # 2.97 X10^3/ul (0.83-4.51); Lymphocyte % 29.3 % (19-41); Mean Corp Hgb Conc 33.8 g/dL (32-36); Mean Corpuscular Hgb 31.2 pg (27.0-32.0); Mean Corpuscular Volume 92.3 fL (81-99); Mean Platelet Vol. 10.1 fl (6.2-12.0); Monocyte% 4.9 % (0-10); NRBC Flagged by Analyzer 0 % (0-5); Neutrophil # 6.44 X10^3/uL (2.7-7.7); Neutrophil % 63.6 % (47-70); Platelet Count 294 K/mm3 (150-450); RBC Distribution Width SD 40.7 fl (35.1-43.9); Red Blood Count 3.62 M/mm3 (4.2-5.4); White Blood Count 10.1 K/mm3 (4.4-11.0)
--- NOTE | 2022-01-05 15:15 | RAD_ITS ---
STUDY: X-RAY - ABDOMEN/PELVIS REASON FOR EXAM: Female, 66 years old. Obstipation with diarrheal overflow. TECHNIQUE: Two AP supine views of the abdomen and pelvis. COMPARISON: 02/25/2021 FINDINGS: Normal visualized lung bases. There is an unremarkable bowel gas pattern. There is no demonstrated free abdominal air. The visualized liver, spleen and kidneys are grossly normal in size and morphology. Normal soft tissue structures. Levoscoliosis and degenerative changes of the lumbar spine . RAD/Abdomen Single View IMPRESSION: No acute intraoperative process. Electronically Signed: Henrik Mederos DO at 23:52 EST ,
[2022-01-07 15:08] LABS: Anti-Centromere B Ab <0.2 AI (0.0-0.9); Anti-Chromatin <0.2 AI (0.0-0.9); Anti-Jo <0.2 AI (0.0-0.9); Anti-Scleroderma-70 AB <0.2 AI (0.0-0.9); RNP Ab 0.2 AI (0.0-0.9); SJOGREN'S Anti-SS-A test 0.2 AI (0.0-0.9); SJOGREN'S Anti-SS-B test 0.4 AI (0.0-0.9); Smith Ab <0.2 AI (0.0-0.9)
[2022-01-07 22:00] LABS: Anti-dsDNA Ab 1 IU/mL (0-9)
[2022-01-10 03:06] LABS: Cytoplasmic Ab (C-ANCA) <1:20 titer (Neg:<1:20); Endomysial Antibody IgA Negative (Negative); Immunoglobulin E 39 IU/mL (6-495); Immunoglobulin G 2041 mg/dL (586-1602)
[2022-01-10 13:31] LABS: Immunoglobulin A 932 mg/dL (87-352); Immunoglobulin M 100 mg/dL (26-217); Perinuclear Ab (P-ANCA) <1:20 titer (Neg:<1:20); t-Transglutaminase IgA 3 U/mL (0-3)
== END 2022-01-05 23:59 | disposition home or self-care (01) ==
LOC: LAB 14:15
PROVIDERS: PCP Family Medicine; Visit Provider Internal Medicine Gastroenterology
DX: R19.7 Diarrhea, unspecified (principal); E66.9 Obesity, unspecified
CPT/HCPCS: 36415; 74018; 82784; 82785; 83516; 85025; 86140; 86225; 86235; 86255; 86256

== ENCOUNTER 2022-01-06 13:02 | Outpatient (CLI) | payer MEDICARE, OTHER, SELFPAY ==
[2022-01-10 10:07] LABS: H. PYLORI STOOL AG Negative (Negative)
[2022-01-10 13:32] LABS: Giardia Lamblia, Stool EIA Negative (Negative)
[2022-01-11 17:42] LABS: Calprotectin, Stool 72 ug/g (0-120)
== END 2022-01-06 23:59 | disposition home or self-care (01) ==
LOC: LABSPEC 13:06
PROVIDERS: PCP Family Medicine; Referring Provider Internal Medicine Gastroenterology; Visit Provider Internal Medicine Gastroenterology
DX: R19.7 Diarrhea, unspecified (principal)
CPT/HCPCS: 83630; 83993; 87329; 87493; 87506

== ENCOUNTER 2022-01-27 11:15 | Outpatient (RCR) | payer MEDICARE, OTHER, SELFPAY ==
[2021-12-28 00:41] VITALS: BP 193/91; PULSE 64; RESP 16; TEMP 35.9
[2021-12-30 12:31] VITALS: BP 174/72; PULSE 65; RESP 20; TEMP 36.2
--- NOTE | 2021-12-30 13:15 | PCM.WC.PN ---
History of Present Illness Date of Service: 12/30/21 Chief Complaint: Right Foot/Heel ulcer History of Wound: Ms. 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 Noted about 3 weeks ago. Believes it may have happened following repeated rubbing of her heel on her bed. She has been applying Medihoney however no significant improvement. She believes her last A1c was 7.6. Currently on DB 7 which she states that she takes for diabetes. She states that her numbers have been well controlled until yesterday where she had a reading in the 200s. Follows up with her primary care physician in [place]. Regarding gout also, she denies any significant drainage, chills or feeling of unwell. She is also on budesonide prescribed by GI for ischemic colitis. Progress of Wound: Some improvement noted. Has had 1 application of epifix so far. Left for fingers improving. New left stump ulcer. Possibly from pressure. Subjective Subjective No acute concerns Objective Data Objective Data Vital Signs: Vital Signs Temp Pulse Resp BP 97.1 F L 65 20 H 174/72 H 12/30/21 12:31 12/30/21 12:31 12/30/21 12:31 12/30/21 12:31 Charges/Coding Procedures Integumentary 111xxx-113xx: [id number] Vandana subq tissue 20 sq cm/< 150xxx-152xx: [id number] Skin sub graft trnk/arm/leg Physical Exam Const alert, oriented x3 and no apparent distress General Appearance: cooperative, comfortable and well kempt HEENT normocephalic and head/scalp atraumatic Head and Scalp: normal to inspection, normocephalic and atraumatic Neck full ROM General: normal visual inspection Resp normal respiratory effort Effort and Inspection: able to speak in complete sentences Skin Wounds: wounds noted Neuro oriented x3, CN's II-XII intact bilaterally, moves all extremities and no focal motor deficits Psych Appearance: grossly normal Activity / Motor Behavior: appropriate eye contact Speech: normal speech Debridement Note Debridement Note Wound debrided: Right heel Type of Debridement: Excisional debridement Anesthesia Used: 4% Lidocaine Solution Depth: Down to and including healthy tissue and in the subcutaneous layer Percentage of wound debrided: 100 Instrument Used: 5mm curette Tissue Removed: Slough and devitalized tissue Severity: Fat Layer Exposed Bleeding Controlled with: Pressure Patient tolerated procedure: Patient tolerated procedure well Post-Debridement Measurements and Additional Note: Post-Debridement Measurements/Treatment LEO - Nurse 1 - General Ulcer Assessment Start: 12/30/21 11:40 Freq: Status: Active Protocol: [place] Activity Type Activity Date Activity User E-Sign Co-Sign Detail Recorded Client Recorded Date Recorded By Document 12/30/21 12:31 PAUL [id number] 12/30/21 12:34 DL 12/30/21 12:31 WC - Today's Visit Information Type of service Follow-up Visit (Physician/GENETICS PHYSICIAN ) Arrival Mode Wheelchair Transfer Assistance Manual Transfer Assist (Other) x1 Patient Identification Verified (Name & Yes ) Patient Requires Transmission-Based No Precautions Vital Signs Temperature (97.8 F-99.1 F) 97.1 F L Temperature Source Temporal Pulse Rate (60-100) 65 Pulse Location Monitor Respiratory Rate (12-18) 20 H Respiratory rate source Observation Blood Pressure (90/60-120/80) 174/72 H Blood Pressure Mean (mm Hg) 106 Source Monitor History Since Last Visit- (Skip if this is Patient's initial visit) Have you changed medications since your No last visit? Any new allergies or adverse reactions No Had a fall/change in ADL's that may No increase risk of falls Signs or symptoms of abuse and/or No neglect since last visit Have you been in the hospital since your No last visit? Has dressing in place as prescribed Yes Has compression in place as prescribed Yes Has offloadiing in place as prescribed Yes Experienced any changes in pain level or No management Pain Scale: 0-10 Numeric Is Patient Pain Free? Yes - Nurse 1 - General Ulcer Measurement Start: 12/30/21 11:40 Freq: Status: Active Protocol: Activity Type Activity Date Activity User E-Sign Co-Sign Detail Recorded Client Recorded Date Recorded By Document 12/30/21 12:31 PAUL [id number] 12/30/21 12:34 DL 12/30/21 12:31 Wound Center Nurse 1 #5 left lateral stump -Current Size (cm) - Length 0.1 -Current Size (cm) - Width 0.1 -Current Size (cm) - Depth 0.1 -Total Square Cm 0.01 -Photo Taken No -Exudate Amt None Present -Wound Margin Thickened -Granulation Amt Large (67-100%) -Granulation Quality Pale -Necrosis Amt None Present (0 %) -Structure Exposed N/A -Texture (Margy-wound Skin Appearance) Scarring -Moisture (Margy-wound Skin Appearance) No Abnormality -Color (Margy-wound Skin Appearance) No Abnormality -Temperature (Margy-wound Skin No Abnormality Appearance) (Pt Warm) -Ulcer Cleansing Rinsed/ Irrigated with Saline -Foul Odor after Cleansing No -Anesthetic Used 5% Lidocaine Gel 4-left hand 5th digit -Current Size (cm) - Length 0.1 -Current Size (cm) - Width 0.1 -Current Size (cm) - Depth 0.1 -Total Square Cm 0.01 -Photo Taken No -Exudate Amt None Present -Wound Margin Thickened -Granulation Amt None Present (0 %) -Necrosis Amt Small (1-33%) -Necrotic Tissue Type Adherent Slough -Structure Exposed N/A -Texture (Margy-wound Skin Appearance) Scarring -Moisture (Margy-wound Skin Appearance) No Abnormality -Color (Margy-wound Skin Appearance) No Abnormality -Temperature (Margy-wound Skin No Abnormality Appearance) (Pt Warm) -Tenderness on Palpation (Margy-wound No Skin Appearance) -Ulcer Cleansing Rinsed/ Irrigated with Saline -Foul Odor after Cleansing No -Anesthetic Used 5% Lidocaine Gel 3. R heel -Current Size (cm) - Length 1.7 -Current Size (cm) - Width 1.5 -Current Size (cm) - Depth 0.3 -Total Square Cm 2.55 -Photo Taken No -Exudate Amt Medium -Exudate Type Serosanguineous -Wound Margin Distinct, Outline Attached -Granulation Amt Medium (34-66%) -Granulation Quality Red -Necrosis Amt Medium (34-66%) -Necrotic Tissue Type Adherent Slough -Structure Exposed N/A -Texture (Margy-wound Skin Appearance) Localized Edema -Moisture (Margy-wound Skin Appearance) Dry/Scaly -Color (Margy-wound Skin Appearance) No Abnormality -Temperature (Margy-wound Skin No Abnormality Appearance) (Pt Warm) -Tenderness on Palpation (Margy-wound No Skin Appearance) -Ulcer Cleansing Soap and Water -Foul Odor after Cleansing No -Anesthetic Used 4% Lidocaine Solution WC - Nurse 2 - General Ulcer CM Notes Start: 12/30/21 11:40 Freq: Status: Active Protocol: Activity Type Activity Date Activity User E-Sign Co-Sign Detail Recorded Client Recorded Date Recorded By Document 12/30/21 11:40 MW [id number] 12/30/21 12:08 MW 12/30/21 11:40 Wound Center Nurse 2 #5 left lateral stump -Time 11:47 -Correct Patient Yes -Correct Side, Site, Position Yes -Correct Procedure Yes -Procedure Performed Yes -Type of Procedure Debridement -Clinical Debridement Subcutaneous -Tissue Removed Subcutaneous -Post Debridement (cm) - Length 0.1 -Post Debridement (cm) - Width 0.6 -Post Debridement (cm) - Depth 0.2 -Total Square (Post) (cm) 0.06 -Area of Debridement (cm) - Length 0.1 -Area of Debridement (cm) - Width 0.6 -Total Square (Area) (cm) 0.06 -Tunneling No -Undermining/Tunneling No -Circular Undermining No -Wound/Ulcer Outcome Not Healed -Ulcer Cleansing Rinsed/ Irrigated with Saline -Foul Odor after Cleansing No -Bioengineered Tissue No -Bleeding Controlled with Pressure -Offloading No -Treatment Response Procedure Tolerated Well -Debridement - Subq, 1st 20sq cm No 4-left hand 5th digit -Time 11:48 -Correct Patient Yes -Correct Side, Site, Position Yes -Correct Procedure Yes -Procedure Performed Yes -Type of Procedure Debridement -Clinical Debridement Subcutaneous -Tissue Removed Subcutaneous -Post Debridement (cm) - Length 0.5 -Post Debridement (cm) - Width 0.3 -Post Debridement (cm) - Depth 0.1 -Total Square (Post) (cm) 0.15 -Area of Debridement (cm) - Length 0.5 -Area of Debridement (cm) - Width 0.3 -Total Square (Area) (cm) 0.15 -Tunneling No -Undermining/Tunneling No -Circular Undermining No -Wound/Ulcer Outcome Not Healed -Ulcer Cleansing Rinsed/ Irrigated with Saline -Foul Odor after Cleansing No -Bioengineered Tissue No -Bleeding Controlled with Pressure -Offloading No -Treatment Response Procedure Tolerated Well -Debridement - Subq, 1st 20sq cm Yes 3. R heel -Time 11:48 -Correct Patient Yes -Correct Side, Site, Position Yes -Correct Procedure Yes -Procedure Performed Yes -Type of Procedure Debridement -Clinical Debridement Subcutaneous -Tissue Removed Subcutaneous -Post Debridement (cm) - Length 1.4 -Post Debridement (cm) - Width 1.8 -Post Debridement (cm) - Depth 0.1 -Total Square (Post) (cm) 2.52 -Area of Debridement (cm) - Length 1.4 -Area of Debridement (cm) - Width 1.8 -Total Square (Area) (cm) 2.52 -Tunneling No -Undermining/Tunneling No -Circular Undermining No -Wound/Ulcer Outcome Not Healed -Ulcer Cleansing Rinsed/ Irrigated with Saline -Foul Odor after Cleansing No -Bioengineered Tissue Yes -Type of Bioengineered Tissue Epifix 18mm Disc -Expiration Date 09/29/26 -Product Lot Number [id number] -Percent Used 100 -Lot number of Saline Used [id number] -Bleeding Controlled with Pressure -Offloading No -Treatment Response Procedure Tolerated Well -Debridement - Subq, 1st 20sq cm No -Apply Skin Sub - 1st 25 sq cm - Feet 1 -Epifix 18mm Disc 3 Pain Scale: 0-10 Numeric Is Patient Pain Free? Yes - Nurse 3 - General Ulcer D/C NN Start: 12/30/21 11:40 Freq: Status: Active Protocol: Activity Type Activity Date Activity User E-Sign Co-Sign Detail Recorded Client Recorded Date Recorded By Document 12/30/21 12:16 DL [id number] 12/30/21 12:19 DL 12/30/21 12:16 Wound Care Nurse 3 #5 left lateral stump -Ulcer Cleansing Rinsed/ Irrigated with Saline -Foul Odor after Cleansing No -Primary Dressing Applied Promogran -Primary Dressing Covered/Secured with Dry Gauze & Roll Gauze, Secured with Tape -Promogran 1 4-left hand 5th digit -Ulcer Cleansing Rinsed/ Irrigated with Saline -Foul Odor after Cleansing No -Other Dressing promogran -Primary Dressing Covered/Secured with Dry Gauze, Secured with Tape 3. R heel -Foul Odor after Cleansing No -Other Dressing Epifix -Other Covering padding Treatment Response Procedure Tolerated Well Pain Scale: 0-10 Numeric Is Patient Pain Free? Yes - Visit Discharge Discharge Condition Stable Ambulatory Status Wheelchair Transportation Private [facility] Facility Type Home Health Orders Sent Yes Additional Wound Wound debrided: Left stump (lateral) Type of Debridement: Excisional debridement Anesthesia Used: 4% Lidocaine Solution Depth: Down to and including healthy tissue and in the subcutaneous layer Percentage of wound debrided: 100 Instrument Used: 3mm curette Tissue Removed: Slough and devitalized tissue Severity: Fat Layer Exposed Amount of bleeding with debridement: Mild Bleeding Controlled with: Pressure Patient tolerated procedure: Patient tolerated procedure well Additional Wound Wound debrided: Left shift finger Type of Debridement: Excisional debridement Anesthesia Used: 4% Lidocaine Solution Depth: Down to and including healthy tissue and in the subcutaneous layer Instrument Used: 3mm curette Tissue Removed: Slough and devitalized tissue Severity: Fat Layer Exposed Amount of bleeding with debridement: Mild Bleeding Controlled with: Pressure Assessment/Plan Assessment/Plan (1) Decubitus ulcer of right heel, stage 3: CODE(S): L89.613 - Pressure ulcer of right heel, stage 3 (2) Type 2 diabetes mellitus: CODE(S): E11.9 - Type 2 diabetes mellitus without complications (3) Ischemic colitis: CODE(S): K55.9 - Vascular disorder of intestine, unspecified (4) PAD (peripheral artery disease): CODE(S): I73.9 - Peripheral vascular disease, unspecified (5) Diabetic neuropathy: CODE(S): E11.40 - Type 2 diabetes mellitus with diabetic neuropathy, unspecified (6) Skin ulcer of finger with fat layer exposed: CODE(S): L98.492 - Non-pressure chronic ulcer of skin of other sites with fat layer exposed (7) Ulcer of amputation stump of foot: CODE(S): T87.89 - Other complications of amputation stump; L97.509 - Non-pressure chronic ulcer of other part of unspecified foot with unspecified severity PLAN: Right heel ulcer with some improvement. New left foot stump ulcer likely from pressure.. States that she recently got a new foot wear. Left finger also is improving. . Debridement done to both ulcers as documented above, procedure was well-tolerated. Second application of epifix to right heel done today using 100% of product. Moistened with hydrogel, covered with wound veil and secured with Steri-Strips. Leave in place for a week. Promogran to left fifth finger and left stump, cover with gauze and change daily. Culture reviewed, started on doxycycline, patient states that she has tolerated this in the past. Optimal diabetes control and offloading strongly recommended. Increase protein intake, vitamin C and D discussed. She voiced understanding. Her questions were answered and she was advised to call with any further questions or concerns. Follow-up in 1 week. This note was generated with [employer] dictation software. It may contain incorrect words, spelling, and punctuation that were not noted in checking the note before signing.
[2022-01-06 11:26] VITALS: BP 133/76; PULSE 64; RESP 18; TEMP 36.3
--- NOTE | 2022-01-06 12:35 | PN.PCM_ITS ---
History of Present Illness Date of Service: 01/06/22 Chief Complaint: Right Foot/Heel ulcer History of Wound: Ms. Serra is a 66-year-old known to the wound center who was referred here by her clinical cytogeneticist due to right heel ulcer. Noted about 3 weeks ago. Believes it may have happened following repeated rubbing of her heel on her bed. She has been applying Medihoney however no significant improvement. She believes her last A1c was 7.6. Currently on DB 7 which she states that she takes for diabetes. She states that her numbers have been well controlled until yesterday where she had a reading in the 200s. Follows up with her primary care physician in [place]. Regarding gout also, she denies any significant drainage, chills or feeling of unwell. She is also on budesonide prescribed by GI for ischemic colitis. Progress of Wound: Stable right heel. Depth to left stump increased, crusting over top. Left fifth finger improved as well. Subjective Subjective No acute concerns at this time. Objective Data Objective Data Vital Signs: Vital Signs Temp Pulse Resp BP 97.3 F L 64 18 133/76 H 01/06/22 11:26 01/06/22 11:26 01/06/22 11:26 01/06/22 11:26 Charges/Coding Procedures Integumentary 111xxx-113xx: 92169 Vandana subq tissue 20 sq cm/< (Left foot stump and left fifth finger.) 150xxx-152xx: [id number] Skin sub graft trnk/arm/leg (Right heel) Physical Exam Const alert, oriented x3 and no apparent distress General Appearance: cooperative, comfortable and well kempt HEENT normocephalic and head/scalp atraumatic Head and Scalp: normal to inspection, normocephalic and atraumatic Neck full ROM General: normal visual inspection Resp normal respiratory effort Effort and Inspection: able to speak in complete sentences Skin Wounds: wounds noted Neuro oriented x3, CN's II-XII intact bilaterally, moves all extremities and no focal motor deficits Psych Appearance: grossly normal Activity / Motor Behavior: appropriate eye contact Speech: normal speech Debridement Note Debridement Note Wound debrided: Right heel Type of Debridement: Excisional debridement Anesthesia Used: 4% Lidocaine Solution Depth: Down to and including healthy tissue and in the subcutaneous layer Percentage of wound debrided: 100 Instrument Used: 5mm curette Tissue Removed: Slough and devitalized tissue Severity: Fat Layer Exposed Amount of bleeding with debridement: Mild Bleeding Controlled with: Pressure Patient tolerated procedure: Patient tolerated procedure well Post-Debridement Measurements and Additional Note: Post-Debridement Measurements/Treatment WC - Nurse 1 - General Ulcer Assessment Start: 12/30/21 11:40 Freq: Status: Active Protocol: [place] Activity Type Activity Date Activity User E-Sign Co-Sign Detail Recorded Client Recorded Date Recorded By Document 12/30/21 12:31 DL [id number] 12/30/21 12:34 DL Document 01/06/22 11:26 DL [id number] 01/06/22 11:39 DL 12/30/21 01/06/22 12:31 11:26 WC - Today's Visit Information Type of service Follow-up Visit Follow-up Visit (Physician/DIGITAL HARDWARE DESIGN ENGINEER (Physician/DIGITAL HARDWARE DESIGN ENGINEER ) ) Arrival Mode Wheelchair Wheelchair Transfer Assistance Manual Manual Transfer Assist (Other) x1 x1 Patient Identification Verified (Name & Yes Yes ) Patient Requires Transmission-Based No No Precautions Vital Signs Temperature (97.8 F-99.1 F) 97.1 F L 97.3 F L Temperature Source Temporal Temporal Pulse Rate (60-100) 65 64 Pulse Location Monitor Monitor Respiratory Rate (12-18) 20 H 18 Respiratory rate source Observation Observation Blood Pressure (90/60-120/80) 174/72 H 133/76 H Blood Pressure Mean (mm Hg) 106 95 Source Monitor History Since Last Visit- (Skip if this is Patient's initial visit) Have you changed medications since your No No last visit? Any new allergies or adverse reactions No No Had a fall/change in ADL's that may No No increase risk of falls Signs or symptoms of abuse and/or No No neglect since last visit Have you been in the hospital since your No last visit? Has dressing in place as prescribed Yes Yes Has compression in place as prescribed Yes Yes Has offloadiing in place as prescribed Yes Yes Experienced any changes in pain level or No No management Pain Scale: 0-10 Numeric Is Patient Pain Free? Yes Yes LEO - Nurse 1 - General Ulcer Measurement Start: 12/30/21 11:40 Freq: Status: Active Protocol: Activity Type Activity Date Activity User E-Sign Co-Sign Detail Recorded Client Recorded Date Recorded By Document 12/30/21 12:31 DL [id number] 12/30/21 12:34 DL Document 01/06/22 11:26 DL [id number] 01/06/22 11:39 DL 12/30/21 01/06/22 12:31 11:26 Wound Center Nurse 1 #5 left lateral stump -Current Size (cm) - Length 0.1 0.1 -Current Size (cm) - Width 0.1 0.1 -Current Size (cm) - Depth 0.1 0.1 -Total Square Cm 0.01 0.01 -Photo Taken No No -Exudate Amt None Present None Present -Wound Margin Thickened Flat & Intact -Granulation Amt Large (67-100%) Large (67-100%) -Granulation Quality Pale Pale -Necrosis Amt None Present (0 None Present (0 %) %) -Structure Exposed N/A N/A -Texture (Margy-wound Skin Appearance) Scarring Scarring -Moisture (Margy-wound Skin Appearance) No Abnormality No Abnormality -Color (Margy-wound Skin Appearance) No Abnormality No Abnormality -Temperature (Margy-wound Skin No Abnormality No Abnormality Appearance) (Pt Warm) (Pt Warm) -Tenderness on Palpation (Margy-wound No Skin Appearance) -Ulcer Cleansing Rinsed/ Soap and Water Irrigated with Saline -Foul Odor after Cleansing No No -Anesthetic Used 5% Lidocaine 5% Lidocaine Gel Gel 4-left hand 5th digit -Current Size (cm) - Length 0.1 0.1 -Current Size (cm) - Width 0.1 0.1 -Current Size (cm) - Depth 0.1 0.1 -Total Square Cm 0.01 0.01 -Photo Taken No No -Exudate Amt None Present None Present -Wound Margin Thickened Flat & Intact -Granulation Amt None Present (0 Large (67-100%) %) -Granulation Quality [employer] -Necrosis Amt Small (1-33%) None Present (0 %) -Necrotic Tissue Type Adherent Slough -Structure Exposed N/A N/A -Texture (Margy-wound Skin Appearance) Scarring Scarring -Moisture (Margy-wound Skin Appearance) No Abnormality No Abnormality -Color (Margy-wound Skin Appearance) No Abnormality No Abnormality -Temperature (Margy-wound Skin No Abnormality No Abnormality Appearance) (Pt Warm) (Pt Warm) -Tenderness on Palpation (Margy-wound No No Skin Appearance) -Ulcer Cleansing Rinsed/ Soap and Water Irrigated with Saline -Foul Odor after Cleansing No No -Anesthetic Used 5% Lidocaine 5% Lidocaine Gel Gel 3. R heel -Current Size (cm) - Length 1.7 1.6 -Current Size (cm) - Width 1.5 2 -Current Size (cm) - Depth 0.3 0.3 -Total Square Cm 2.55 3.2 -Photo Taken No No -Exudate Amt Medium Medium -Exudate Type Serosanguineous Serosanguineous -Wound Margin Distinct, Distinct, Outline Outline Attached Attached -Granulation Amt Medium (34-66%) Large (67-100%) -Granulation Quality Red [employer] -Necrosis Amt Medium (34-66%) Small (1-33%) -Necrotic Tissue Type Adherent Slough Adherent Slough -Structure Exposed N/A N/A -Texture (Margy-wound Skin Appearance) Localized Edema Scarring -Moisture (Margy-wound Skin Appearance) Dry/Scaly No Abnormality -Color (Margy-wound Skin Appearance) No Abnormality No Abnormality -Temperature (Margy-wound Skin No Abnormality No Abnormality Appearance) (Pt Warm) (Pt Warm) -Tenderness on Palpation (Margy-wound No No Skin Appearance) -Ulcer Cleansing Soap and Water Soap and Water -Foul Odor after Cleansing No No -Anesthetic Used 4% Lidocaine 5% Lidocaine Solution Gel WC - Nurse 2 - General Ulcer CM Notes Start: 12/30/21 11:40 Freq: Status: Active Protocol: Activity Type Activity Date Activity User E-Sign Co-Sign Detail Recorded Client Recorded Date Recorded By Document 12/30/21 11:40 MW [id number] 12/30/21 12:08 MW Document 01/06/22 11:48 MW [id number] 01/06/22 12:01 MW 12/30/21 01/06/22 11:40 11:48 Wound Center Nurse 2 #5 left lateral stump -Time 11:47 11:48 -Correct Patient Yes Yes -Correct Side, Site, Position Yes Yes -Correct Procedure Yes Yes -Procedure Performed Yes Yes -Type of Procedure Debridement Debridement -Clinical Debridement Subcutaneous Subcutaneous -Tissue Removed Subcutaneous Subcutaneous -Post Debridement (cm) - Length 0.1 0.1 -Post Debridement (cm) - Width 0.6 0.6 -Post Debridement (cm) - Depth 0.2 0.7 -Total Square (Post) (cm) 0.06 0.06 -Area of Debridement (cm) - Length 0.1 0.1 -Area of Debridement (cm) - Width 0.6 0.6 -Total Square (Area) (cm) 0.06 0.06 -Tunneling No No -Undermining/Tunneling No No -Circular Undermining No No -Wound/Ulcer Outcome Not Healed Not Healed -Ulcer Cleansing Rinsed/ Rinsed/ Irrigated with Irrigated with Saline Saline -Foul Odor after Cleansing No No -Bioengineered Tissue No No -Bleeding Controlled with Pressure Pressure -Offloading No No -Treatment Response Procedure Procedure Tolerated Well Tolerated Well -Debridement - Subq, 1st 20sq cm No Yes 4-left hand 5th digit -Time 11:48 11:49 -Correct Patient Yes Yes -Correct Side, Site, Position Yes Yes -Correct Procedure Yes Yes -Procedure Performed Yes Yes -Type of Procedure Debridement Debridement -Clinical Debridement Subcutaneous Subcutaneous -Tissue Removed Subcutaneous Subcutaneous -Post Debridement (cm) - Length 0.5 0.3 -Post Debridement (cm) - Width 0.3 0.1 -Post Debridement (cm) - Depth 0.1 0.1 -Total Square (Post) (cm) 0.15 0.03 -Area of Debridement (cm) - Length 0.5 0.3 -Area of Debridement (cm) - Width 0.3 0.1 -Total Square (Area) (cm) 0.15 0.03 -Tunneling No No -Undermining/Tunneling No No -Circular Undermining No No -Wound/Ulcer Outcome Not Healed Not Healed -Ulcer Cleansing Rinsed/ Rinsed/ Irrigated with Irrigated with Saline Saline -Foul Odor after Cleansing No No -Bioengineered Tissue No No -Bleeding Controlled with Pressure Pressure -Offloading No No -Treatment Response Procedure Procedure Tolerated Well Tolerated Well -Debridement - Subq, 1st 20sq cm Yes No 3. R heel -Time 11:48 11:49 -Correct Patient Yes Yes -Correct Side, Site, Position Yes Yes -Correct Procedure Yes Yes -Procedure Performed Yes Yes -Type of Procedure Debridement Debridement -Clinical Debridement Subcutaneous Subcutaneous -Tissue Removed Subcutaneous Subcutaneous -Post Debridement (cm) - Length 1.4 1.5 -Post Debridement (cm) - Width 1.8 1.6 -Post Debridement (cm) - Depth 0.1 0.1 -Total Square (Post) (cm) 2.52 2.40 -Area of Debridement (cm) - Length 1.4 1.5 -Area of Debridement (cm) - Width 1.8 0.6 -Total Square (Area) (cm) 2.52 0.90 -Tunneling No No -Undermining/Tunneling No No -Circular Undermining No No -Wound/Ulcer Outcome Not Healed Not Healed -Ulcer Cleansing Rinsed/ Rinsed/ Irrigated with Irrigated with Saline Saline -Foul Odor after Cleansing No No -Bioengineered Tissue Yes Yes -Type of Bioengineered Tissue Epifix 18mm Epifix 18mm Disc Disc -Expiration Date 09/29/26 10/30/26 -Product Lot Number [id number] -Percent Used 100 100 -Lot number of Saline Used [id number] -Bleeding Controlled with Pressure Pressure -Offloading No No -Treatment Response Procedure Procedure Tolerated Well Tolerated Well -Debridement - Subq, 1st 20sq cm No No -Apply Skin Sub - 1st 25 sq cm - Feet 1 1 -Epifix 18mm Disc 3 3 Pain Scale: 0-10 Numeric Is Patient Pain Free? Yes Yes WC - Nurse 3 - General Ulcer D/C NN Start: 12/30/21 11:40 Freq: Status: Active Protocol: Activity Type Activity Date Activity User E-Sign Co-Sign Detail Recorded Client Recorded Date Recorded By Document 12/30/21 12:16 DL [id number] 12/30/21 12:19 DL Document 01/06/22 12:05 ML [id number] 01/06/22 12:08 ML 12/30/21 01/06/22 12:16 12:05 Wound Care Nurse 3 #5 left lateral stump -Ulcer Cleansing Rinsed/ Rinsed/ Irrigated with Irrigated with Saline Saline -Foul Odor after Cleansing No No -Primary Dressing Applied Promogran Promogran -Primary Dressing Covered/Secured with Dry Gauze & Dry Gauze & Roll Gauze, Roll Gauze, Secured with Secured with Tape Tape -Promogran 1 1 4-left hand 5th digit -Ulcer Cleansing Rinsed/ Rinsed/ Irrigated with Irrigated with Saline Saline -Foul Odor after Cleansing No No -Primary Dressing Applied Promogran -Other Dressing promogran -Primary Dressing Covered/Secured with Dry Gauze, Dry Gauze, Secured with Secured with Tape Tape -Promogran 0 3. R heel -Ulcer Cleansing Rinsed/ Irrigated with Saline -Foul Odor after Cleansing No No -Other Dressing Epifix abd,nurses hat, epifix -Primary Dressing Covered/Secured with Dry Gauze & Roll Gauze, Secured with Tape -Other Covering padding Treatment Response Procedure Tolerated Well Pain Scale: 0-10 Numeric Is Patient Pain Free? Yes Yes WC - Visit Discharge Discharge Condition Stable Ambulatory Status Wheelchair Transportation Private [facility] Facility Type Home Health Orders Sent Yes Additional Wound Wound debrided: Left Foot Stump Type of Debridement: Excisional debridement Anesthesia Used: 4% Lidocaine Solution Depth: Down to and including healthy tissue and in the subcutaneous layer Percentage of wound debrided: 100 Instrument Used: - (1mm) Tissue Removed: Slough and devitalized tissue Severity: Fat Layer Exposed Amount of bleeding with debridement: Mild Bleeding Controlled with: Pressure Patient tolerated procedure: Patient tolerated procedure well Additional Wound Wound debrided: Left Fifth Finger Type of Debridement: Excisional debridement Anesthesia Used: 4% Lidocaine Solution Depth: Down to and including healthy tissue Percentage of wound debrided: 100 Instrument Used: - (1mm) Severity: Fat Layer Exposed Amount of bleeding with debridement: Mild Bleeding Controlled with: Pressure Patient tolerated procedure: Patient tolerated procedure well Assessment/Plan Assessment/Plan (1) Decubitus ulcer of right heel, stage 3: CODE(S): L89.613 - Pressure ulcer of right heel, stage 3 (2) Type 2 diabetes mellitus: CODE(S): E11.9 - Type 2 diabetes mellitus without complications (3) Ischemic colitis: CODE(S): K55.9 - Vascular disorder of intestine, unspecified (4) PAD (peripheral artery disease): CODE(S): I73.9 - Peripheral vascular disease, unspecified (5) Diabetic neuropathy: CODE(S): E11.40 - Type 2 diabetes mellitus with diabetic neuropathy, unspecified (6) Skin ulcer of finger with fat layer exposed: CODE(S): L98.492 - Non-pressure chronic ulcer of skin of other sites with fat layer exposed (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 Left stump depth increased. Fifth finger improving. Debridement done to both ulcers as documented above, procedure was well-tolerated. 3rd application of Epifix to right heel done today using 100% of product. Moistened with saline, covered with adaptic touch and secured with Steri-Strips. Leave in place for a week. Promogran to left fifth finger and left stump, cover with gauze and change daily. Moistened Promogran especially to left foot stump. Optimal diabetes control and offloading strongly recommended. Increase protein intake, vitamin C and D discussed. She voiced understanding. Her questions were answered and she was advised to call with any further questions or concerns. Follow-up in 1 week. This note was generated with [employer] dictation software. It may contain incorrect words, spelling, and punctuation that were not noted in checking the note before signing.
[2022-01-13 11:15] VITALS: BP 161/77; PULSE 74; TEMP 35.9
--- NOTE | 2022-01-13 12:50 | PN.PCM_ITS ---
History of Present Illness Date of Service: 01/13/22 Chief Complaint: Right Foot/Heel ulcer History of Wound: Ms. 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 Noted about 3 weeks ago. Believes it may have happened following repeated rubbing of her heel on her bed. She has been applying Medihoney however no significant improvement. She believes her last A1c was 7.6. Currently on DB 7 which she states that she takes for diabetes. She states that her numbers have been well controlled until yesterday where she had a reading in the 200s. Follows up with her primary care physician in [place]. Regarding gout also, she denies any significant drainage, chills or feeling of unwell. She is also on budesonide prescribed by GI for ischemic colitis. Progress of Wound: Left fifth finger is improving. Left stump crusted over and depths remain significant. Right heel with minimal change. Has had 3 applications of epi fix to her right heel. Subjective Subjective No acute concerns at this time. Objective Data Objective Data Vital Signs: Vital Signs Temp Pulse Resp BP 96.7 F L 74 18 161/77 H 01/13/22 11:15 01/13/22 11:15 01/06/22 11:26 01/13/22 11:15 Oxygen Delivery Method Room Air Charges/Coding Procedures Integumentary 111xxx-113xx: 76535 Vandana subq tissue 20 sq cm/< 150xxx-152xx: [id number] Skin sub graft trnk/arm/leg Physical Exam Const alert, oriented x3 and no apparent distress General Appearance: cooperative, comfortable and well kempt HEENT normocephalic and head/scalp atraumatic Head and Scalp: normal to inspection, normocephalic and atraumatic Neck full ROM General: normal visual inspection Resp normal respiratory effort Effort and Inspection: able to speak in complete sentences Skin Wounds: wounds noted Neuro oriented x3, CN's II-XII intact bilaterally, moves all extremities and no focal motor deficits Psych Appearance: grossly normal Activity / Motor Behavior: appropriate eye contact Speech: normal speech Debridement Note Debridement Note Wound debrided: Right heel Type of Debridement: Excisional debridement Anesthesia Used: 4% Lidocaine Solution Depth: Down to and including healthy tissue and in the subcutaneous layer Percentage of wound debrided: 100 Instrument Used: 5mm curette Tissue Removed: Slough and devitalized tissue Severity: Fat Layer Exposed Amount of bleeding with debridement: Mild Bleeding Controlled with: Pressure Patient tolerated procedure: Patient tolerated procedure well Post-Debridement Measurements and Additional Note: Post-Debridement Measurements/Treatment WC - Nurse 1 - General Ulcer Assessment Start: 12/30/21 11:40 Freq: Status: Active Protocol: [place] Activity Type Activity Date Activity User E-Sign Co-Sign Detail Recorded Client Recorded Date Recorded By Document 12/30/21 12:31 DL [id number] 12/30/21 12:34 DL Document 01/06/22 11:26 DL [id number] 01/06/22 11:39 DL Document 01/13/22 11:15 BMF [id number] 01/13/22 11:30 BMF 12/30/21 01/06/22 01/13/22 12:31 11:26 11:15 - Today's Visit Information Type of service Follow-up Visit Follow-up Visit Follow-up Visit (Physician/CONVERTIBLE POWER SHOVEL OPERATOR (Physician/CONVERTIBLE POWER SHOVEL OPERATOR (Physician/CONVERTIBLE POWER SHOVEL OPERATOR ) ) ) Arrival Mode Wheelchair Wheelchair Wheelchair Transfer Assistance Manual Manual None Transfer Assist (Other) x1 x1 Patient Identification Verified (Name & Yes Yes Yes ) Patient Requires Transmission-Based No No Precautions Vital Signs Temperature (97.8 F-99.1 F) 97.1 F L 97.3 F L 96.7 F L Temperature Source Temporal Temporal Temporal Pulse Rate (60-100) 65 64 74 Pulse Location Monitor Monitor Monitor Respiratory Rate (12-18) 20 H 18 Respiratory rate source Observation Observation Observation Oxygen Delivery Method Room Air Blood Pressure (90/60-120/80) 174/72 H 133/76 H 161/77 H Blood Pressure Mean (mm Hg) 106 95 105 Source Monitor Monitor Position Sitting Blood Pressure Location Left Arm History Since Last Visit- (Skip if this is Patient's initial visit) Have you changed medications since your No No No last visit? Any new allergies or adverse reactions No No No Had a fall/change in ADL's that may No No No increase risk of falls Signs or symptoms of abuse and/or No No No neglect since last visit Have you been in the hospital since your No No last visit? Has dressing in place as prescribed Yes Yes Yes Has compression in place as prescribed Yes Yes N/A Has offloadiing in place as prescribed Yes Yes Yes Experienced any changes in pain level or No No No management Left Footwear Regular Shoe Right Footwear Surgical Shoe with pressure relief insole Pain Scale: 0-10 Numeric Is Patient Pain Free? Yes Yes Yes WC - Nurse 1 - General Ulcer Measurement Start: 12/30/21 11:40 Freq: Status: Active Protocol: Activity Type Activity Date Activity User E-Sign Co-Sign Detail Recorded Client Recorded Date Recorded By Document 12/30/21 12:31 DL [id number] 12/30/21 12:34 DL Document 01/06/22 11:26 DL [id number] 01/06/22 11:39 DL Document 01/13/22 11:15 BM [id number] 01/13/22 11:30 BMF 12/30/21 01/06/22 01/13/22 12:31 11:26 11:15 Wound Center Nurse 1 #5 left lateral stump -Combined with other wound No -Current Size (cm) - Length 0.1 0.1 0.1 -Current Size (cm) - Width 0.1 0.1 0.1 -Current Size (cm) - Depth 0.1 0.1 0.1 -Total Square Cm 0.01 0.01 0.01 -Photo Taken No No No -Epithelialization Large 67-100% -Tunneling No -Undermining/Tunneling No -Circular Undermining No -Exudate Amt None Present None Present -Wound Margin Thickened Flat & Intact -Granulation Amt Large (67-100%) Large (67-100%) -Granulation Quality Pale Pale -Necrosis Amt None Present (0 None Present (0 %) %) -Structure Exposed N/A N/A -Texture (Margy-wound Skin Appearance) Scarring Scarring Assessed, Scarring -Moisture (Margy-wound Skin Appearance) No Abnormality No Abnormality Assessed -Color (Margy-wound Skin Appearance) No Abnormality No Abnormality Assessed -Temperature (Margy-wound Skin No Abnormality No Abnormality No Abnormality Appearance) (Pt Warm) (Pt Warm) (Pt Warm) -Tenderness on Palpation (Margy-wound No No Skin Appearance) -Ulcer Cleansing Rinsed/ Soap and Water Soap and Water Irrigated with Saline -Foul Odor after Cleansing No No No -Anesthetic Used 5% Lidocaine 5% Lidocaine 5% Lidocaine Gel Gel Gel 4-left hand 5th digit -Combined with other wound No -Current Size (cm) - Length 0.1 0.1 0.1 -Current Size (cm) - Width 0.1 0.1 0.1 -Current Size (cm) - Depth 0.1 0.1 0.1 -Total Square Cm 0.01 0.01 0.01 -Photo Taken No No No -Epithelialization Large 67-100% -Tunneling No -Undermining/Tunneling No -Circular Undermining No -Exudate Amt None Present None Present -Wound Margin Thickened Flat & Intact -Granulation Amt None Present (0 Large (67-100%) %) -Granulation Quality Het[place] -Necrosis Amt Small (1-33%) None Present (0 %) -Necrotic Tissue Type Adherent Slough -Structure Exposed N/A N/A -Texture (Margy-wound Skin Appearance) Scarring Scarring Assessed, Scarring -Moisture (Margy-wound Skin Appearance) No Abnormality No Abnormality Assessed -Color (Margy-wound Skin Appearance) No Abnormality No Abnormality Assessed -Temperature (Margy-wound Skin No Abnormality No Abnormality No Abnormality Appearance) (Pt Warm) (Pt Warm) (Pt Warm) -Tenderness on Palpation (Margy-wound No No No Skin Appearance) -Ulcer Cleansing Rinsed/ Soap and Water Rinsed/ Irrigated with Irrigated with Saline Saline -Foul Odor after Cleansing No No No -Anesthetic Used 5% Lidocaine 5% Lidocaine 5% Lidocaine Gel Gel Gel 3. R heel -Combined with other wound No -Current Size (cm) - Length 1.7 1.6 1.4 -Current Size (cm) - Width 1.5 2 1.6 -Current Size (cm) - Depth 0.3 0.3 0.2 -Total Square Cm 2.55 3.2 2.24 -Photo Taken No No No -Epithelialization Small 1-33% -Tunneling No -Undermining/Tunneling No -Circular Undermining No -Exudate Amt Medium Medium Medium -Exudate Type Serosanguineous Serosanguineous Serosanguineous -Wound Margin Distinct, Distinct, Distinct, Outline Outline Outline Attached Attached Attached -Granulation Amt Medium (34-66%) Large (67-100%) Medium (34-66%) -Granulation Quality Red [place] -Slough/Fibrin Yes -Necrosis Amt Medium (34-66%) Small (1-33%) Medium (34-66%) -Necrotic Tissue Type Adherent Slough Adherent Slough Adherent Slough -Structure Exposed N/A N/A -Texture (Margy-wound Skin Appearance) Localized Edema Scarring Assessed, Scarring -Moisture (Margy-wound Skin Appearance) Dry/Scaly No Abnormality Assessed, Maceration -Color (Margy-wound Skin Appearance) No Abnormality No Abnormality Assessed,Palor -Temperature (Margy-wound Skin No Abnormality No Abnormality No Abnormality Appearance) (Pt Warm) (Pt Warm) (Pt Warm) -Tenderness on Palpation (Margy-wound No No No Skin Appearance) -Ulcer Cleansing Soap and Water Soap and Water Soap and Water -Foul Odor after Cleansing No No No -Anesthetic Used 4% Lidocaine 5% Lidocaine 5% Lidocaine Solution Gel Gel WC - Nurse 2 - General Ulcer CM Notes Start: 12/30/21 11:40 Freq: Status: Active Protocol: Activity Type Activity Date Activity User E-Sign Co-Sign Detail Recorded Client Recorded Date Recorded By Document 12/30/21 11:40 MW [id number] 12/30/21 12:08 MW Document 01/06/22 11:48 MW [id number] 01/06/22 12:01 MW Document 01/13/22 11:36 MW [id number] 01/13/22 11:53 MW 12/30/21 01/06/22 01/13/22 11:40 11:48 11:36 Wound Center Nurse 2 #5 left lateral stump -Time 11:47 11:48 11:37 -Correct Patient Yes Yes Yes -Correct Side, Site, Position Yes Yes Yes -Correct Procedure Yes Yes Yes -Procedure Performed Yes Yes Yes -Type of Procedure Debridement Debridement Debridement -Clinical Debridement Subcutaneous Subcutaneous Subcutaneous -Tissue Removed Subcutaneous Subcutaneous Subcutaneous -Post Debridement (cm) - Length 0.1 0.1 0.1 -Post Debridement (cm) - Width 0.6 0.6 0.6 -Post Debridement (cm) - Depth 0.2 0.7 0.7 -Total Square (Post) (cm) 0.06 0.06 0.06 -Area of Debridement (cm) - Length 0.1 0.1 0.1 -Area of Debridement (cm) - Width 0.6 0.6 0.6 -Total Square (Area) (cm) 0.06 0.06 0.06 -Tunneling No No No -Undermining/Tunneling No No No -Circular Undermining No No No -Wound/Ulcer Outcome Not Healed Not Healed Not Healed -Ulcer Cleansing Rinsed/ Rinsed/ Rinsed/ Irrigated with Irrigated with Irrigated with Saline Saline Saline -Foul Odor after Cleansing No No No -Bioengineered Tissue No No No -Bleeding Controlled with Pressure Pressure Pressure -Treatment Response Procedure Procedure Procedure Tolerated Well Tolerated Well Tolerated Well -Offloading No No No -Debridement - Subq, 1st 20sq cm No Yes Yes 4-left hand 5th digit -Time 11:48 11:49 11:37 -Correct Patient Yes Yes Yes -Correct Side, Site, Position Yes Yes Yes -Correct Procedure Yes Yes Yes -Procedure Performed Yes Yes Yes -Type of Procedure Debridement Debridement Debridement -Clinical Debridement Subcutaneous Subcutaneous Subcutaneous -Tissue Removed Subcutaneous Subcutaneous Subcutaneous -Post Debridement (cm) - Length 0.5 0.3 0.2 -Post Debridement (cm) - Width 0.3 0.1 0.2 -Post Debridement (cm) - Depth 0.1 0.1 0.1 -Total Square (Post) (cm) 0.15 0.03 0.04 -Area of Debridement (cm) - Length 0.5 0.3 0.2 -Area of Debridement (cm) - Width 0.3 0.1 0.2 -Total Square (Area) (cm) 0.15 0.03 0.04 -Tunneling No No No -Undermining/Tunneling No No No -Circular Undermining No No No -Wound/Ulcer Outcome Not Healed Not Healed Not Healed -Ulcer Cleansing Rinsed/ Rinsed/ Rinsed/ Irrigated with Irrigated with Irrigated with Saline Saline Saline -Foul Odor after Cleansing No No No -Bioengineered Tissue No No No -Bleeding Controlled with Pressure Pressure Pressure -Treatment Response Procedure Procedure Procedure Tolerated Well Tolerated Well Tolerated Well -Offloading No No No -Debridement - Subq, 1st 20sq cm Yes No No 3. R heel -Time :48 11:49 11:37 -Correct Patient Yes Yes Yes -Correct Side, Site, Position Yes Yes Yes -Correct Procedure Yes Yes Yes -Procedure Performed Yes Yes Yes -Type of Procedure Debridement Debridement Debridement -Clinical Debridement Subcutaneous Subcutaneous Subcutaneous -Tissue Removed Subcutaneous Subcutaneous Subcutaneous -Post Debridement (cm) - Length 1.4 1.5 1.5 -Post Debridement (cm) - Width 1.8 1.6 1.5 -Post Debridement (cm) - Depth 0.1 0.1 0.1 -Total Square (Post) (cm) 2.52 2.40 2.25 -Area of Debridement (cm) - Length 1.4 1.5 1.5 -Area of Debridement (cm) - Width 1.8 0.6 1.5 -Total Square (Area) (cm) 2.52 0.90 2.25 -Tunneling No No No -Undermining/Tunneling No No No -Circular Undermining No No No -Wound/Ulcer Outcome Not Healed Not Healed Not Healed -Ulcer Cleansing Rinsed/ Rinsed/ Rinsed/ Irrigated with Irrigated with Irrigated with Saline Saline Saline -Foul Odor after Cleansing No No No -Bioengineered Tissue Yes Yes Yes -Type of Bioengineered Tissue Epifix 18mm Epifix 18mm Epifix 18mm Disc Disc Disc -Expiration Date 09/29/26 10/30/26 10/30/26 -Product Lot Number [id number] -Percent Used 100 100 100 -Lot number of Saline Used [id number] -Bleeding Controlled with Pressure Pressure NA -Treatment Response Procedure Procedure Procedure Tolerated Well Tolerated Well Tolerated Well -Offloading No No No -Debridement - Subq, 1st 20sq cm No No No -Apply Skin Sub - 1st 25 sq cm - Feet 1 1 1 -Epifix 18mm Disc 3 3 3 Pain Scale: 0-10 Numeric Is Patient Pain Free? Yes Yes Yes - Nurse 3 - General Ulcer D/C NN Start: 12/30/21 11:40 Freq: Status: Active Protocol: Activity Type Activity Date Activity User E-Sign Co-Sign Detail Recorded Client Recorded Date Recorded By Document 12/30/21 12:16 DL [id number] 12/30/21 12:19 DL Document 01/06/22 12:05 ML [id number] 01/06/22 12:08 ML Document 01/13/22 12:10 BMF [id number] 01/13/22 12:14 BMF 12/30/21 01/06/22 01/13/22 12:16 12:05 12:10 Wound Care Nurse 3 #5 left lateral stump -Ulcer Cleansing Rinsed/ Rinsed/ Rinsed/ Irrigated with Irrigated with Irrigated with Saline Saline Saline -Foul Odor after Cleansing No No No -Primary Dressing Applied Promogran Promogran Promogran Leighann Matter -Primary Dressing Covered/Secured with Dry Gauze & Dry Gauze & Dry Gauze & Roll Gauze, Roll Gauze, Roll Gauze, Secured with Secured with Secured with Tape Tape Tape -Promogran 1 1 -Promogran Leighann Matter 1 4-left hand 5th digit -Ulcer Cleansing Rinsed/ Rinsed/ Rinsed/ Irrigated with Irrigated with Irrigated with Saline Saline Saline -Foul Odor after Cleansing No No No -Primary Dressing Applied Promogran Promogran Leighann Matter -Other Dressing promogran -Primary Dressing Covered/Secured with Dry Gauze, Dry Gauze, Dry Gauze, Secured with Secured with Secured with Tape Tape Tape -Promogran 0 -Promogran Leighann Matter 1 3. R heel -Ulcer Cleansing Rinsed/ Irrigated with Saline -Foul Odor after Cleansing No No -Other Dressing Epifix abd,nurses hat, EPIFIX epifix -Primary Dressing Covered/Secured with Dry Gauze & Dry Gauze & Roll Gauze, Roll Gauze, Secured with Secured with Tape Tape,Other -Other Covering padding HEEL HAT Treatment Response Procedure Procedure Tolerated Well Tolerated Well Pain Scale: 0-10 Numeric Is Patient Pain Free? Yes Yes Yes WC - Visit Discharge Discharge Condition Stable Stable Ambulatory Status Wheelchair Wheelchair Transportation Private Auto Private Auto Accompanied by ELEONORA Facility Type Home Health Home Health Orders Sent Yes Additional Wound Wound debrided: Left Foot stump Type of Debridement: Excisional debridement Anesthesia Used: 4% Lidocaine Solution Depth: Down to and including healthy tissue and in the subcutaneous layer Percentage of wound debrided: 100 Instrument Used: - (1mm) Severity: Fat Layer Exposed Amount of bleeding with debridement: Mild Bleeding Controlled with: Pressure Patient tolerated procedure: Patient tolerated procedure well Additional Wound Wound debrided: Left 5th Finger Type of Debridement: Excisional debridement Anesthesia Used: 4% Lidocaine Solution Depth: Down to and including healthy tissue and in the subcutaneous layer Percentage of wound debrided: 100 Instrument Used: - (1mm) Severity: Fat Layer Exposed Amount of bleeding with debridement: Mild Bleeding Controlled with: Pressure Patient tolerated procedure: Patient tolerated procedure well Assessment/Plan Assessment/Plan (1) Decubitus ulcer of right heel, stage 3: CODE(S): L89.613 - Pressure ulcer of right heel, stage 3 (2) Type 2 diabetes mellitus: CODE(S): E11.9 - Type 2 diabetes mellitus without complications (3) Ischemic colitis: CODE(S): K55.9 - Vascular disorder of intestine, unspecified (4) PAD (peripheral artery disease): CODE(S): I73.9 - Peripheral vascular disease, unspecified (5) Diabetic neuropathy: CODE(S): E11.40 - Type 2 diabetes mellitus with diabetic neuropathy, unspecified (6) Skin ulcer of finger with fat layer exposed: CODE(S): L98.492 - Non-pressure chronic ulcer of skin of other sites with fat layer exposed (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 Left stump depth persists. Fifth finger improving. Debridement done to both ulcers as documented above, procedure was well-tolerated. 4th application of Epifix to right heel done today using 100% of product. Moistened with saline, covered with adaptic touch and secured with Steri-Strips. Leave in place for a week. Promogran to left fifth finger and left stump, cover with gauze and change daily. Moistened Promogran especially to left foot stump. She was advised to make sure she cleans her left foot stump properly and reapply daily. Scabbed over with no significant wound dressing noted in. Optimal diabetes control and offloading strongly recommended. Increase protein intake, vitamin C and D discussed. She voiced understanding. Her questions were answered and she was advised to call with any further questions or concerns. Follow-up in 1 week. This note was generated with TNCation software. It may contain incorrect words, spelling, and punctuation that were not noted in checking the note before signing.
[2022-01-20 11:15] VITALS: BP 145/83; PULSE 74; RESP 16; TEMP 36.1
--- NOTE | 2022-01-20 12:18 | PCM.WC.PN ---
History of Present Illness Date of Service: 01/20/22 Chief Complaint: Right Foot/Heel ulcer History of Wound: Ms. 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 Noted about 3 weeks ago. Believes it may have happened following repeated rubbing of her heel on her bed. She has been applying Medihoney however no significant improvement. She believes her last A1c was 7.6. Currently on DB 7 which she states that she takes for diabetes. She states that her numbers have been well controlled until yesterday where she had a reading in the 200s. Follows up with her primary care physician in [place]. Regarding gout also, she denies any significant drainage, chills or feeling of unwell. She is also on budesonide prescribed by GI for ischemic colitis. Progress of Wound: Left fifth finger is healed. Left stump crusted over and depths remains the same. Right heel with minimal change. Has had 4 applications of epi fix to her right heel. Subjective Subjective No new concerns at this time Objective Data Objective Data Vital Signs: Vital Signs Temp Pulse Resp BP 97.0 F L 74 16 145/83 H 01/20/22 11:15 01/20/22 11:15 01/20/22 11:15 01/20/22 11:15 Oxygen Delivery Method Room Air Charges/Coding Procedures Integumentary 111xxx-113xx: 78206 Vandana subq tissue 20 sq cm/< (Left foot stump) 150xxx-152xx: 63039 Skin sub graft trnk/arm/leg (Right heel) Physical Exam Const alert, oriented x3 and no apparent distress General Appearance: cooperative, comfortable and well kempt HEENT normocephalic and head/scalp atraumatic Head and Scalp: normal to inspection, normocephalic and atraumatic Neck full ROM General: normal visual inspection Resp normal respiratory effort Effort and Inspection: able to speak in complete sentences Skin Wounds: wounds noted Neuro oriented x3, CN's II-XII intact bilaterally, moves all extremities and no focal motor deficits Psych Appearance: grossly normal Activity / Motor Behavior: appropriate eye contact Speech: normal speech Debridement Note Debridement Note Wound debrided: Right heel Type of Debridement: Excisional debridement Anesthesia Used: 4% Lidocaine Solution Depth: Down to and including healthy tissue and in the subcutaneous layer Percentage of wound debrided: 100 Instrument Used: 5mm curette Tissue Removed: Slough and devitalized tissue Severity: Fat Layer Exposed Amount of bleeding with debridement: Mild Bleeding Controlled with: Pressure Patient tolerated procedure: Patient tolerated procedure well Post-Debridement Measurements and Additional Note: Post-Debridement Measurements/Treatment WC - Nurse 1 - General Ulcer Assessment Start: 12/30/21 11:40 Freq: Status: Active Protocol: LEO.LOWEXT Activity Type Activity Date Activity User E-Sign Co-Sign Detail Recorded Client Recorded Date Recorded By Document 12/30/21 12:31 DL [id number] 12/30/21 12:34 DL Document 01/06/22 11:26 DL [id number] 01/06/22 11:39 DL Document 01/13/22 11:15 BMF [id number] 01/13/22 11:30 BMF Document 01/20/22 11:15 ML [id number] 01/20/22 11:31 ML 12/30/21 01/06/22 01/13/22 12:31 11:26 11:15 - Today's Visit Information Type of service Follow-up Visit Follow-up Visit Follow-up Visit (Physician/FREIGHT CAR INSPECTOR (Physician/FREIGHT CAR INSPECTOR (Physician/FREIGHT CAR INSPECTOR ) ) ) Arrival Mode Wheelchair Wheelchair Wheelchair Transfer Assistance Manual Manual None Transfer Assist (Other) x1 x1 Patient Identification Verified (Name & Yes Yes Yes ) Patient Requires Transmission-Based No No Precautions Safety Precautions Vital Signs Temperature (97.8 F-99.1 F) 97.1 F L 97.3 F L 96.7 F L Temperature Source Temporal Temporal Temporal Pulse Rate (60-100) 65 64 74 Pulse Location Monitor Monitor Monitor Respiratory Rate (12-18) 20 H 18 Respiratory rate source Observation Observation Observation Oxygen Delivery Method Room Air Blood Pressure (90/60-120/80) 174/72 H 133/76 H 161/77 H Blood Pressure Mean (mm Hg) 106 95 105 Source Monitor Monitor Position Sitting Blood Pressure Location Left Arm History Since Last Visit- (Skip if this is Patient's initial visit) Have you changed medications since your No No No last visit? Any new allergies or adverse reactions No No No Had a fall/change in ADL's that may No No No increase risk of falls Signs or symptoms of abuse and/or No No No neglect since last visit Have you been in the hospital since your No No last visit? Has dressing in place as prescribed Yes Yes Yes Has compression in place as prescribed Yes Yes N/A Has offloadiing in place as prescribed Yes Yes Yes Experienced any changes in pain level or No No No management Left Footwear Regular Shoe Right Footwear Surgical Shoe with pressure relief insole Pain Scale: 0-10 Numeric Is Patient Pain Free? Yes Yes Yes 01/20/22 11:15 WC - Today's Visit Information Type of service Follow-up Visit (Physician/FREIGHT CAR INSPECTOR ) Arrival Mode Wheelchair Transfer Assistance None Transfer Assist (Other) Patient Identification Verified (Name & Yes ) Patient Requires Transmission-Based No Precautions Safety Precautions NA Vital Signs Temperature (97.8 F-99.1 F) 97.0 F L Temperature Source Temporal Pulse Rate (60-100) 74 Pulse Location Monitor Respiratory Rate (12-18) 16 Respiratory rate source Observation Oxygen Delivery Method Blood Pressure (90/60-120/80) 145/83 H Blood Pressure Mean (mm Hg) 103 Source Monitor Position Sitting Blood Pressure Location Right Arm History Since Last Visit- (Skip if this is Patient's initial visit) Have you changed medications since your No last visit? Any new allergies or adverse reactions No Had a fall/change in ADL's that may No increase risk of falls Signs or symptoms of abuse and/or No neglect since last visit Have you been in the hospital since your No last visit? Has dressing in place as prescribed Yes Has compression in place as prescribed N/A Has offloadiing in place as prescribed N/A Experienced any changes in pain level or No management Left Footwear Regular Shoe Right Footwear Surgical Shoe with pressure relief insole Pain Scale: 0-10 Numeric Is Patient Pain Free? Yes - Nurse 1 - General Ulcer Measurement Start: 12/30/21 11:40 Freq: Status: Active Protocol: Activity Type Activity Date Activity User E-Sign Co-Sign Detail Recorded Client Recorded Date Recorded By Document 12/30/21 12:31 DL [id number] 12/30/21 12:34 DL Document 01/06/22 11:26 DL [id number] 01/06/22 11:39 DL Document 01/13/22 11:15 BMF [id number] 03/17/22 11:30 BMF Document 01/20/22 11:15 ML [id number] 01/20/22 11:31 ML 12/30/21 01/06/22 01/13/22 12:31 11:26 11:15 Wound Center Nurse 1 #5 left lateral stump -Combined with other wound No -Current Size (cm) - Length 0.1 0.1 0.1 -Current Size (cm) - Width 0.1 0.1 0.1 -Current Size (cm) - Depth 0.1 0.1 0.1 -Total Square Cm 0.01 0.01 0.01 -Photo Taken No No No -Epithelialization Large 67-100% -Tunneling No -Undermining/Tunneling No -Circular Undermining No -Exudate Amt None Present None Present -Wound Margin Thickened Flat & Intact -Granulation Amt Large (67-100%) Large (67-100%) -Granulation Quality Pale Pale -Necrosis Amt None Present (0 None Present (0 %) %) -Structure Exposed N/A N/A -Texture (Margy-wound Skin Appearance) Scarring Scarring Assessed, Scarring -Moisture (Margy-wound Skin Appearance) No Abnormality No Abnormality Assessed -Color (Margy-wound Skin Appearance) No Abnormality No Abnormality Assessed -Temperature (Margy-wound Skin No Abnormality No Abnormality No Abnormality Appearance) (Pt Warm) (Pt Warm) (Pt Warm) -Tenderness on Palpation (Margy-wound No No Skin Appearance) -Ulcer Cleansing Rinsed/ Soap and Water Soap and Water Irrigated with Saline -Foul Odor after Cleansing No No No -Anesthetic Used 5% Lidocaine 5% Lidocaine 5% Lidocaine Gel Gel Gel 4-left hand 5th digit -Combined with other wound No -Current Size (cm) - Length 0.1 0.1 0.1 -Current Size (cm) - Width 0.1 0.1 0.1 -Current Size (cm) - Depth 0.1 0.1 0.1 -Total Square Cm 0.01 0.01 0.01 -Photo Taken No No No -Epithelialization Large 67-100% -Tunneling No -Undermining/Tunneling No -Circular Undermining No -Exudate Amt None Present None Present -Wound Margin Thickened Flat & Intact -Granulation Amt None Present (0 Large (67-100%) %) -Granulation Quality [place] -Slough/Fibrin -Necrosis Amt Small (1-33%) None Present (0 %) -Necrotic Tissue Type Adherent Slough -Structure Exposed N/A N/A -Texture (Margy-wound Skin Appearance) Scarring Scarring Assessed, Scarring -Moisture (Margy-wound Skin Appearance) No Abnormality No Abnormality Assessed -Color (Margy-wound Skin Appearance) No Abnormality No Abnormality Assessed -Temperature (Margy-wound Skin No Abnormality No Abnormality No Abnormality Appearance) (Pt Warm) (Pt Warm) (Pt Warm) -Tenderness on Palpation (Margy-wound No No No Skin Appearance) -Ulcer Cleansing Rinsed/ Soap and Water Rinsed/ Irrigated with Irrigated with Saline Saline -Foul Odor after Cleansing No No No -Anesthetic Used 5% Lidocaine 5% Lidocaine 5% Lidocaine Gel Gel Gel 3. R heel -Combined with other wound No -Current Size (cm) - Length 1.7 1.6 1.4 -Current Size (cm) - Width 1.5 2 1.6 -Current Size (cm) - Depth 0.3 0.3 0.2 -Total Square Cm 2.55 3.2 2.24 -Photo Taken No No No -Epithelialization Small 1-33% -Tunneling No -Undermining/Tunneling No -Circular Undermining No -Exudate Amt Medium Medium Medium -Exudate Type Serosanguineous Serosanguineous Serosanguineous -Wound Margin Distinct, Distinct, Distinct, Outline Outline Outline Attached Attached Attached -Granulation Amt Medium (34-66%) Large (67-100%) Medium (34-66%) -Granulation Quality [place] -Slough/Fibrin Yes -Necrosis Amt Medium (34-66%) Small (1-33%) Medium (34-66%) -Necrotic Tissue Type Adherent Slough Adherent Slough Adherent Slough -Structure Exposed N/A N/A -Texture (Margy-wound Skin Appearance) Localized Edema Scarring Assessed, Scarring -Moisture (Margy-wound Skin Appearance) Dry/Scaly No Abnormality Assessed, Maceration -Color (Margy-wound Skin Appearance) No Abnormality No Abnormality Assessed,Palor -Temperature (Margy-wound Skin No Abnormality No Abnormality No Abnormality Appearance) (Pt Warm) (Pt Warm) (Pt Warm) -Tenderness on Palpation (Margy-wound No No No Skin Appearance) -Ulcer Cleansing Soap and Water Soap and Water Soap and Water -Foul Odor after Cleansing No No No -Anesthetic Used 4% Lidocaine 5% Lidocaine 5% Lidocaine Solution Gel Gel 01/20/22 11:15 Wound Center Nurse 1 #5 left lateral stump -Combined with other wound -Current Size (cm) - Length 0.1 -Current Size (cm) - Width 0.1 -Current Size (cm) - Depth 0.1 -Total Square Cm 0.01 -Photo Taken -Epithelialization -Tunneling -Undermining/Tunneling -Circular Undermining -Exudate Amt None Present -Wound Margin -Granulation Amt None Present (0 %) -Granulation Quality -Necrosis Amt None Present (0 %) -Structure Exposed -Texture (Margy-wound Skin Appearance) Assessed -Moisture (Margy-wound Skin Appearance) Assessed -Color (Margy-wound Skin Appearance) Assessed -Temperature (Margy-wound Skin No Abnormality Appearance) (Pt Warm) -Tenderness on Palpation (Margy-wound No Skin Appearance) -Ulcer Cleansing Soap and Water -Foul Odor after Cleansing No -Anesthetic Used 5% Lidocaine Gel 4-left hand 5th digit -Combined with other wound -Current Size (cm) - Length 0.1 -Current Size (cm) - Width 0.1 -Current Size (cm) - Depth 0.1 -Total Square Cm 0.01 -Photo Taken -Epithelialization -Tunneling -Undermining/Tunneling -Circular Undermining -Exudate Amt -Wound Margin -Granulation Amt None Present (0 %) -Granulation Quality -Slough/Fibrin No -Necrosis Amt None Present (0 %) -Necrotic Tissue Type Adherent Slough -Structure Exposed -Texture (Margy-wound Skin Appearance) Assessed -Moisture (Margy-wound Skin Appearance) Assessed -Color (Margy-wound Skin Appearance) Assessed -Temperature (Margy-wound Skin No Abnormality Appearance) (Pt Warm) -Tenderness on Palpation (Margy-wound No Skin Appearance) -Ulcer Cleansing -Foul Odor after Cleansing No -Anesthetic Used 3. R heel -Combined with other wound -Current Size (cm) - Length 3 -Current Size (cm) - Width 3 -Current Size (cm) - Depth 0.1 -Total Square Cm 9 -Photo Taken -Epithelialization -Tunneling -Undermining/Tunneling -Circular Undermining -Exudate Amt Medium -Exudate Type Serosanguineous -Wound Margin Distinct, Outline Attached -Granulation Amt Medium (34-66%) -Granulation Quality -Slough/Fibrin -Necrosis Amt Medium (34-66%) -Necrotic Tissue Type Adherent Slough -Structure Exposed -Texture (Margy-wound Skin Appearance) Assessed -Moisture (Margy-wound Skin Appearance) Assessed -Color (Margy-wound Skin Appearance) Assessed -Temperature (Margy-wound Skin No Abnormality Appearance) (Pt Warm) -Tenderness on Palpation (Margy-wound No Skin Appearance) -Ulcer Cleansing Soap and Water -Foul Odor after Cleansing No -Anesthetic Used 5% Lidocaine Gel WC - Nurse 2 - General Ulcer CM Notes Start: 12/30/21 11:40 Freq: Status: Active Protocol: Activity Type Activity Date Activity User E-Sign Co-Sign Detail Recorded Client Recorded Date Recorded By Document 12/30/21 11:40 MW [id number] 12/30/21 12:08 MW Document 01/06/22 11:48 MW [id number] 01/06/22 12:01 MW Document 01/13/22 11:36 MW [id number] 01/13/22 11:53 MW Document 01/20/22 11:43 MW [id number] 01/20/22 11:57 MW 12/30/21 01/06/22 01/13/22 11:40 11:48 11:36 Wound Center Nurse 2 #5 left lateral stump -Time 11:47 11:48 11:37 -Correct Patient Yes Yes Yes -Correct Side, Site, Position Yes Yes Yes -Correct Procedure Yes Yes Yes -Procedure Performed Yes Yes Yes -Type of Procedure Debridement Debridement Debridement -Clinical Debridement Subcutaneous Subcutaneous Subcutaneous -Tissue Removed Subcutaneous Subcutaneous Subcutaneous -Post Debridement (cm) - Length 0.1 0.1 0.1 -Post Debridement (cm) - Width 0.6 0.6 0.6 -Post Debridement (cm) - Depth 0.2 0.7 0.7 -Total Square (Post) (cm) 0.06 0.06 0.06 -Area of Debridement (cm) - Length 0.1 0.1 0.1 -Area of Debridement (cm) - Width 0.6 0.6 0.6 -Total Square (Area) (cm) 0.06 0.06 0.06 -Tunneling No No No -Undermining/Tunneling No No No -Circular Undermining No No No -Wound/Ulcer Outcome Not Healed Not Healed Not Healed -Ulcer Cleansing Rinsed/ Rinsed/ Rinsed/ Irrigated with Irrigated with Irrigated with Saline Saline Saline -Foul Odor after Cleansing No No No -Bioengineered Tissue No No No -Bleeding Controlled with Pressure Pressure Pressure -Treatment Response Procedure Procedure Procedure Tolerated Well Tolerated Well Tolerated Well -Offloading No No No -Debridement - Subq, 1st 20sq cm No Yes Yes 4-left hand 5th digit -Time :48 11:49 11:37 -Correct Patient Yes Yes Yes -Correct Side, Site, Position Yes Yes Yes -Correct Procedure Yes Yes Yes -Procedure Performed Yes Yes Yes -Type of Procedure Debridement Debridement Debridement -Clinical Debridement Subcutaneous Subcutaneous Subcutaneous -Tissue Removed Subcutaneous Subcutaneous Subcutaneous -Post Debridement (cm) - Length 0.5 0.3 0.2 -Post Debridement (cm) - Width 0.3 0.1 0.2 -Post Debridement (cm) - Depth 0.1 0.1 0.1 -Total Square (Post) (cm) 0.15 0.03 0.04 -Area of Debridement (cm) - Length 0.5 0.3 0.2 -Area of Debridement (cm) - Width 0.3 0.1 0.2 -Total Square (Area) (cm) 0.15 0.03 0.04 -Tunneling No No No -Undermining/Tunneling No No No -Circular Undermining No No No -Wound/Ulcer Outcome Not Healed Not Healed Not Healed -Ulcer Cleansing Rinsed/ Rinsed/ Rinsed/ Irrigated with Irrigated with Irrigated with Saline Saline Saline -Foul Odor after Cleansing No No No -Bioengineered Tissue No No No -Bleeding Controlled with Pressure Pressure Pressure -Treatment Response Procedure Procedure Procedure Tolerated Well Tolerated Well Tolerated Well -Offloading No No No -Debridement - Subq, 1st 20sq cm Yes No No 3. R heel -Time 48 11:49 11:37 -Correct Patient Yes Yes Yes -Correct Side, Site, Position Yes Yes Yes -Correct Procedure Yes Yes Yes -Procedure Performed Yes Yes Yes -Type of Procedure Debridement Debridement Debridement -Clinical Debridement Subcutaneous Subcutaneous Subcutaneous -Tissue Removed Subcutaneous Subcutaneous Subcutaneous -Post Debridement (cm) - Length 1.4 1.5 1.5 -Post Debridement (cm) - Width 1.8 1.6 1.5 -Post Debridement (cm) - Depth 0.1 0.1 0.1 -Total Square (Post) (cm) 2.52 2.40 2.25 -Area of Debridement (cm) - Length 1.4 1.5 1.5 -Area of Debridement (cm) - Width 1.8 0.6 1.5 -Total Square (Area) (cm) 2.52 0.90 2.25 -Tunneling No No No -Undermining/Tunneling No No No -Circular Undermining No No No -Wound/Ulcer Outcome Not Healed Not Healed Not Healed -Ulcer Cleansing Rinsed/ Rinsed/ Rinsed/ Irrigated with Irrigated with Irrigated with Saline Saline Saline -Foul Odor after Cleansing No No No -Bioengineered Tissue Yes Yes Yes -Type of Bioengineered Tissue Epifix 18mm Epifix 18mm Epifix 18mm Disc Disc Disc -Expiration Date 09/29/26 10/30/26 10/30/26 -Product Lot Number [id number] -Percent Used 100 100 100 -Lot number of Saline Used [id number] -Bleeding Controlled with Pressure Pressure NA -Treatment Response Procedure Procedure Procedure Tolerated Well Tolerated Well Tolerated Well -Offloading No No No -Assistive Device(s) -Debridement - Subq, 1st 20sq cm No No No -Apply Skin Sub - 1st 25 sq cm - Feet 1 1 1 -Epifix 18mm Disc 3 3 3 Pain Scale: 0-10 Numeric Is Patient Pain Free? Yes Yes Yes 01/20/22 11:43 Wound Center Nurse 2 #5 left lateral stump -Time 11:43 -Correct Patient Yes -Correct Side, Site, Position Yes -Correct Procedure Yes -Procedure Performed Yes -Type of Procedure Debridement -Clinical Debridement Subcutaneous -Tissue Removed Subcutaneous -Post Debridement (cm) - Length 0.1 -Post Debridement (cm) - Width 0.6 -Post Debridement (cm) - Depth 0.8 -Total Square (Post) (cm) 0.06 -Area of Debridement (cm) - Length 0.1 -Area of Debridement (cm) - Width 0.6 -Total Square (Area) (cm) 0.06 -Tunneling No -Undermining/Tunneling No -Circular Undermining No -Wound/Ulcer Outcome Not Healed -Ulcer Cleansing Rinsed/ Irrigated with Saline -Foul Odor after Cleansing No -Bioengineered Tissue No -Bleeding Controlled with Pressure -Treatment Response Procedure Tolerated Well -Offloading No -Debridement - Subq, 1st 20sq cm Yes 4-left hand 5th digit -Time 11:44 -Correct Patient Yes -Correct Side, Site, Position Yes -Correct Procedure Yes -Procedure Performed No -Type of Procedure -Clinical Debridement -Tissue Removed -Post Debridement (cm) - Length 0 -Post Debridement (cm) - Width 0 -Post Debridement (cm) - Depth 0 -Total Square (Post) (cm) 0 -Area of Debridement (cm) - Length -Area of Debridement (cm) - Width -Total Square (Area) (cm) -Tunneling -Undermining/Tunneling -Circular Undermining -Wound/Ulcer Outcome Healed- Epithelialized -Ulcer Cleansing -Foul Odor after Cleansing -Bioengineered Tissue -Bleeding Controlled with -Treatment Response -Offloading -Debridement - Subq, 20sq cm 3. R heel -Time 11:44 -Correct Patient Yes -Correct Side, Site, Position Yes -Correct Procedure Yes -Procedure Performed Yes -Type of Procedure Debridement -Clinical Debridement Subcutaneous -Tissue Removed Subcutaneous -Post Debridement (cm) - Length 1.4 -Post Debridement (cm) - Width 1.4 -Post Debridement (cm) - Depth 0.1 -Total Square (Post) (cm) 1.96 -Area of Debridement (cm) - Length 1.4 -Area of Debridement (cm) - Width 1.4 -Total Square (Area) (cm) 1.96 -Tunneling No -Undermining/Tunneling No -Circular Undermining No -Wound/Ulcer Outcome Not Healed -Ulcer Cleansing Rinsed/ Irrigated with Saline -Foul Odor after Cleansing No -Bioengineered Tissue Yes -Type of Bioengineered Tissue Epifix 18mm Disc -Expiration Date 10/30/26 -Product Lot Number [id number] -Percent Used 100 -Lot number of Saline Used [id number] -Bleeding Controlled with Pressure -Treatment Response Procedure Tolerated Well -Offloading No -Assistive Device(s) Wheelchair -Debridement - Subq, 1st 20sq cm No -Apply Skin Sub - 1st 25 sq cm - Feet 1 -Epifix 18mm Disc 3 Pain Scale: 0-10 Numeric Is Patient Pain Free? Yes WC - Nurse 3 - General Ulcer D/C NN Start: 12/30/21 11:40 Freq: Status: Active Protocol: Activity Type Activity Date Activity User E-Sign Co-Sign Detail Recorded Client Recorded Date Recorded By Document 12/30/21 12:16 DL [id number] 12/30/21 12:19 DL Document 01/06/22 12:05 ML [id number] 01/06/22 12:08 ML Document 01/13/22 12:10 BMF [id number] 01/13/22 12:14 BMF Document 01/20/22 12:13 ML [id number] 01/20/22 12:17 ML 12/30/21 01/06/22 01/13/22 12:16 12:05 12:10 Wound Care Nurse 3 #5 left lateral stump -Ulcer Cleansing Rinsed/ Rinsed/ Rinsed/ Irrigated with Irrigated with Irrigated with Saline Saline Saline -Foul Odor after Cleansing No No No -Primary Dressing Applied Promogran Promogran Promogran Leighann Matter -Primary Dressing Covered/Secured with Dry Gauze & Dry Gauze & Dry Gauze & Roll Gauze, Roll Gauze, Roll Gauze, Secured with Secured with Secured with Tape Tape Tape -Promogran 1 1 -Promogran Leighann Matter 1 4-left hand 5th digit -Ulcer Cleansing Rinsed/ Rinsed/ Rinsed/ Irrigated with Irrigated with Irrigated with Saline Saline Saline -Foul Odor after Cleansing No No No -Primary Dressing Applied Promogran Promogran Leighann Matter -Other Dressing promogran -Primary Dressing Covered/Secured with Dry Gauze, Dry Gauze, Dry Gauze, Secured with Secured with Secured with Tape Tape Tape -Promogran 0 -Promogran Leighann Matter 1 3. R heel -Ulcer Cleansing Rinsed/ Irrigated with Saline -Foul Odor after Cleansing No No -Other Dressing Epifix abd,nurses hat, EPIFIX epifix -Primary Dressing Covered/Secured with Dry Gauze & Dry Gauze & Roll Gauze, Roll Gauze, Secured with Secured with Tape Tape,Other -Other Covering padding HEEL HAT -Promogran Treatment Response Procedure Procedure Tolerated Well Tolerated Well Pain Scale: 0-10 Numeric Is Patient Pain Free? Yes Yes Yes WC - Visit Discharge Discharge Condition Stable Stable Ambulatory Status Wheelchair Wheelchair Transportation Private Auto Private Auto Accompanied by ELEONORA Medication Reconcilliation completed & provided to patient/care provider Clinical Summary of Care Provided Facility Type [facility] Orders Sent Yes 01/20/22 12:13 Wound Care Nurse 3 #5 left lateral stump -Ulcer Cleansing Rinsed/ Irrigated with Saline -Foul Odor after Cleansing -Primary Dressing Applied Promogran -Primary Dressing Covered/Secured with Dry Gauze,Dry Gauze & Roll Gauze,Secured with Tape -Promogran 1 -Promogran Leighann Matter 4-left hand 5th digit -Ulcer Cleansing -Foul Odor after Cleansing -Primary Dressing Applied -Other Dressing -Primary Dressing Covered/Secured with -Promogran -Promogran Leighann Matter 3. R heel -Ulcer Cleansing -Foul Odor after Cleansing -Other Dressing -Primary Dressing Covered/Secured with Dry Gauze,Dry Gauze & Roll Gauze,Secured with Tape -Other Covering EIFIX,NURSES HAT -Promogran 1 Treatment Response Pain Scale: 0-10 Numeric Is Patient Pain Free? Yes WC - Visit Discharge Discharge Condition Stable Ambulatory Status Wheelchair Transportation Private Auto Accompanied by Medication Reconcilliation completed & No provided to patient/care provider Clinical Summary of Care Provided Yes Facility Type Orders Sent Additional Wound Wound debrided: Left foot stump Type of Debridement: Excisional debridement Anesthesia Used: 4% Lidocaine Solution Depth: Down to and including healthy tissue and in the subcutaneous layer Percentage of wound debrided: 100 Instrument Used: - (1mm) Severity: Fat Layer Exposed Bleeding Controlled with: Pressure Patient tolerated procedure: Patient tolerated procedure well Assessment/Plan Assessment/Plan (1) Decubitus ulcer of right heel, stage 3: CODE(S): L89.613 - Pressure ulcer of right heel, stage 3 (2) Type 2 diabetes mellitus: CODE(S): E11.9 - Type 2 diabetes mellitus without complications (3) Ischemic colitis: CODE(S): K55.9 - Vascular disorder of intestine, unspecified (4) PAD (peripheral artery disease): CODE(S): I73.9 - Peripheral vascular disease, unspecified (5) Diabetic neuropathy: CODE(S): E11.40 - Type 2 diabetes mellitus with diabetic neuropathy, unspecified (6) Skin ulcer of finger with fat layer exposed: CODE(S): L98.492 - Non-pressure chronic ulcer of skin of other sites with fat layer exposed (7) Ulcer of amputation stump of foot: CODE(S): T87.89 - Other complications of amputation stump; L97.509 - Non-pressure chronic ulcer of other part of unspecified foot with unspecified severity PLAN: Stable right heel ulcer. Left stump depth persists. Fifth finger is healed. Debridement done to both ulcers as documented above, procedure was well-tolerated. 5th application of Epifix to right heel done today using 100% of product. Moistened with hydrogel, covered with adaptic touch and secured with Steri-Strips. Leave in place for a week. Promogran to left stump, cover with gauze and change daily. Moistened Promogran especially to left foot stump. She states that she needs help with the left stump and plans to get it. Optimal diabetes control and offloading strongly recommended. Increase protein intake, vitamin C and D discussed. She voiced understanding. Her questions were answered and she was advised to call with any further questions or concerns. Follow-up in 1 week. This note was generated with [employer] dictation software. It may contain incorrect words, spelling, and punctuation that were not noted in checking the note before signing.
[2022-01-27 11:29] VITALS: BP 156/71; PULSE 70; RESP 18; TEMP 36.4
--- NOTE | 2022-01-27 12:58 | PN.PCM_ITS ---
History of Present Illness Date of Service: 01/27/22 Chief Complaint: Right Foot/Heel ulcer History of Wound: Ms. 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 Noted about 3 weeks ago. Believes it may have happened following repeated rubbing of her heel on her bed. She has been applying Medihoney however no significant improvement. She believes her last A1c was 7.6. Currently on DB 7 which she states that she takes for diabetes. She states that her numbers have been well controlled until yesterday where she had a reading in the 200s. Follows up with her primary care physician in [place]. Regarding gout also, she denies any significant drainage, chills or feeling of unwell. She is also on budesonide prescribed by GI for ischemic colitis. Progress of Wound: Left fifth finger stays healed. Left stump with worsening noted and Right heel with no significant change. Has had 5 applications of Epifix so far. Subjective Subjective No acute concerns at this time. Objective Data Objective Data Vital Signs: Vital Signs Temp Pulse Resp BP 97.6 F L 70 18 156/71 H 01/27/22 11:29 01/27/22 11:29 01/27/22 11:29 01/27/22 11:29 Oxygen Delivery Method Room Air Charges/Coding Procedures Integumentary 111xxx-113xx: 42989 Vandana subq tissue 20 sq cm/< (Left Stump ) 150xxx-152xx: 96830 Skin sub graft trnk/arm/leg (Right heel)) Physical Exam Const alert, oriented x3 and no apparent distress General Appearance: cooperative, comfortable and well kempt HEENT normocephalic and head/scalp atraumatic Head and Scalp: normal to inspection, normocephalic and atraumatic Neck full ROM General: normal visual inspection Resp normal respiratory effort Effort and Inspection: able to speak in complete sentences Skin Wounds: wounds noted Neuro oriented x3, CN's II-XII intact bilaterally, moves all extremities and no focal motor deficits Psych Appearance: grossly normal Activity / Motor Behavior: appropriate eye contact Speech: normal speech Debridement Note Debridement Note Wound debrided: Left Stump Type of Debridement: Excisional debridement Anesthesia Used: 4% Lidocaine Solution Depth: Down to and including healthy tissue and in the subcutaneous layer Percentage of wound debrided: 100 Instrument Used: 3mm curette Tissue Removed: Slough and devitalized tissue Severity: Fat Layer Exposed Amount of bleeding with debridement: Mild Bleeding Controlled with: Pressure Patient tolerated procedure: Patient tolerated procedure well Post-Debridement Measurements and Additional Note: Post-Debridement Measurements/Treatment - Nurse 1 - General Ulcer Assessment Start: 12/30/21 11:40 Freq: Status: Active Protocol: [place] Activity Type Activity Date Activity User E-Sign Co-Sign Detail Recorded Client Recorded Date Recorded By Document 12/30/21 12:31 DL [id number] 12/30/21 12:34 DL Document 01/06/22 11:26 DL [id number] 01/06/22 11:39 DL Document 01/13/22 11:15 BMF [id number] 01/13/22 11:30 BMF Document 01/20/22 11:15 ML [id number] 01/20/22 11:31 ML Document 01/27/22 11:29 DL [id number] 01/27/22 11:45 DL 12/30/21 01/06/22 01/13/22 12:31 11:26 11:15 - Today's Visit Information Type of service Follow-up Visit Follow-up Visit Follow-up Visit (Physician/VICE PRESIDENT NETWORK DEVELOPMENT (Physician/VICE PRESIDENT NETWORK DEVELOPMENT (Physician/VICE PRESIDENT NETWORK DEVELOPMENT ) ) ) Arrival Mode Wheelchair Wheelchair Wheelchair Transfer Assistance Manual Manual None Transfer Assist (Other) x1 x1 Patient Identification Verified (Name & Yes Yes Yes ) Patient Requires Transmission-Based No No Precautions Safety Precautions Vital Signs Temperature (97.8 F-99.1 F) 97.1 F L 97.3 F L 96.7 F L Temperature Source Temporal Temporal Temporal Pulse Rate (60-100) 65 64 74 Pulse Location Monitor Monitor Monitor Respiratory Rate (12-18) 20 H 18 Respiratory rate source Observation Observation Observation Oxygen Delivery Method Room Air Blood Pressure (90/60-120/80) 174/72 H 133/76 H 161/77 H Blood Pressure Mean (mm Hg) 106 95 105 Source Monitor Monitor Position Sitting Blood Pressure Location Left Arm History Since Last Visit- (Skip if this is Patient's initial visit) Have you changed medications since your No No No last visit? Any new allergies or adverse reactions No No No Had a fall/change in ADL's that may No No No increase risk of falls Signs or symptoms of abuse and/or No No No neglect since last visit Have you been in the hospital since your No No last visit? Has dressing in place as prescribed Yes Yes Yes Has compression in place as prescribed Yes Yes N/A Has offloadiing in place as prescribed Yes Yes Yes Experienced any changes in pain level or No No No management Left Footwear Regular Shoe Right Footwear Surgical Shoe with pressure relief insole Pain Scale: 0-10 Numeric Is Patient Pain Free? Yes Yes Yes 01/20/22 01/27/22 11:15 11:29 - Today's Visit Information Type of service Follow-up Visit Follow-up Visit (Physician/VICE PRESIDENT NETWORK DEVELOPMENT (Physician/VICE PRESIDENT NETWORK DEVELOPMENT ) ) Arrival Mode Wheelchair Wheelchair Transfer Assistance None None Transfer Assist (Other) Patient Identification Verified (Name & Yes Yes ) Patient Requires Transmission-Based No No Precautions Safety Precautions NA Vital Signs Temperature (97.8 F-99.1 F) 97.0 F L 97.6 F L Temperature Source Temporal Temporal Pulse Rate (60-100) 74 70 Pulse Location Monitor Monitor Respiratory Rate (12-18) 16 18 Respiratory rate source Observation Observation Oxygen Delivery Method Blood Pressure (90/60-120/80) 145/83 H 156/71 H Blood Pressure Mean (mm Hg) 103 99 Source Monitor Monitor Position Sitting Blood Pressure Location Right Arm History Since Last Visit- (Skip if this is Patient's initial visit) Have you changed medications since your No No last visit? Any new allergies or adverse reactions No No Had a fall/change in ADL's that may No No increase risk of falls Signs or symptoms of abuse and/or No No neglect since last visit Have you been in the hospital since your No No last visit? Has dressing in place as prescribed Yes Yes Has compression in place as prescribed N/A N/A Has offloadiing in place as prescribed N/A Yes Experienced any changes in pain level or No No management Left Footwear Regular Shoe Right Footwear Surgical Shoe Surgical Shoe with pressure with pressure relief insole relief insole Pain Scale: 0-10 Numeric Is Patient Pain Free? Yes Yes - Nurse 1 - General Ulcer Measurement Start: 12/30/21 11:40 Freq: Status: Active Protocol: Activity Type Activity Date Activity User E-Sign Co-Sign Detail Recorded Client Recorded Date Recorded By Document 12/30/21 12:31 DL [id number] 12/30/21 12:34 DL Document 01/06/22 11:26 DL [id number] 01/06/22 11:39 DL Document 01/13/22 11:15 BMF [id number] 01/13/22 11:30 BMF Document 01/20/22 11:15 ML [id number] 01/20/22 11:31 ML Document 01/27/22 11:29 DL [id number] 01/27/22 11:45 DL 12/30/21 01/06/22 01/13/22 12:31 11:26 11:15 Wound Center Nurse 1 #5 left lateral stump -Combined with other wound No -Current Size (cm) - Length 0.1 0.1 0.1 -Current Size (cm) - Width 0.1 0.1 0.1 -Current Size (cm) - Depth 0.1 0.1 0.1 -Total Square Cm 0.01 0.01 0.01 -Photo Taken No No No -Epithelialization Large 67-100% -Tunneling No -Undermining/Tunneling No -Circular Undermining No -Exudate Amt None Present None Present -Exudate Type -Wound Margin Thickened Flat & Intact -Granulation Amt Large (67-100%) Large (67-100%) -Granulation Quality Pale Pale -Necrosis Amt None Present (0 None Present (0 %) %) -Necrotic Tissue Type -Structure Exposed N/A N/A -Texture (Margy-wound Skin Appearance) Scarring Scarring Assessed, Scarring -Moisture (Margy-wound Skin Appearance) No Abnormality No Abnormality Assessed -Color (Margy-wound Skin Appearance) No Abnormality No Abnormality Assessed -Temperature (Margy-wound Skin No Abnormality No Abnormality No Abnormality Appearance) (Pt Warm) (Pt Warm) (Pt Warm) -Tenderness on Palpation (Margy-wound No No Skin Appearance) -Ulcer Cleansing Rinsed/ Soap and Water Soap and Water Irrigated with Saline -Foul Odor after Cleansing No No No -Anesthetic Used 5% Lidocaine 5% Lidocaine 5% Lidocaine Gel Gel Gel 4-left hand 5th digit -Combined with other wound No -Current Size (cm) - Length 0.1 0.1 0.1 -Current Size (cm) - Width 0.1 0.1 0.1 -Current Size (cm) - Depth 0.1 0.1 0.1 -Total Square Cm 0.01 0.01 0.01 -Photo Taken No No No -Epithelialization Large 67-100% -Tunneling No -Undermining/Tunneling No -Circular Undermining No -Exudate Amt None Present None Present -Wound Margin Thickened Flat & Intact -Granulation Amt None Present (0 Large (67-100%) %) -Granulation Quality [place] -Slough/Fibrin -Necrosis Amt Small (1-33%) None Present (0 %) -Necrotic Tissue Type Adherent Slough -Structure Exposed N/A N/A -Texture (Margy-wound Skin Appearance) Scarring Scarring Assessed, Scarring -Moisture (Margy-wound Skin Appearance) No Abnormality No Abnormality Assessed -Color (Margy-wound Skin Appearance) No Abnormality No Abnormality Assessed -Temperature (Margy-wound Skin No Abnormality No Abnormality No Abnormality Appearance) (Pt Warm) (Pt Warm) (Pt Warm) -Tenderness on Palpation (Margy-wound No No No Skin Appearance) -Ulcer Cleansing Rinsed/ Soap and Water Rinsed/ Irrigated with Irrigated with Saline Saline -Foul Odor after Cleansing No No No -Anesthetic Used 5% Lidocaine 5% Lidocaine 5% Lidocaine Gel Gel Gel 3. R heel -Combined with other wound No -Current Size (cm) - Length 1.7 1.6 1.4 -Current Size (cm) - Width 1.5 2 1.6 -Current Size (cm) - Depth 0.3 0.3 0.2 -Total Square Cm 2.55 3.2 2.24 -Photo Taken No No No -Epithelialization Small 1-33% -Tunneling No -Undermining/Tunneling No -Circular Undermining No -Exudate Amt Medium Medium Medium -Exudate Type Serosanguineous Serosanguineous Serosanguineous -Wound Margin Distinct, Distinct, Distinct, Outline Outline Outline Attached Attached Attached -Granulation Amt Medium (34-66%) Large (67-100%) Medium (34-66%) -Granulation Quality Red [place] -Slough/Fibrin Yes -Necrosis Amt Medium (34-66%) Small (1-33%) Medium (34-66%) -Necrotic Tissue Type Adherent Slough Adherent Slough Adherent Slough -Structure Exposed N/A N/A -Texture (Margy-wound Skin Appearance) Localized Edema Scarring Assessed, Scarring -Moisture (Margy-wound Skin Appearance) Dry/Scaly No Abnormality Assessed, Maceration -Color (Margy-wound Skin Appearance) No Abnormality No Abnormality Assessed,Palor -Temperature (Margy-wound Skin No Abnormality No Abnormality No Abnormality Appearance) (Pt Warm) (Pt Warm) (Pt Warm) -Tenderness on Palpation (Margy-wound No No No Skin Appearance) -Ulcer Cleansing Soap and Water Soap and Water Soap and Water -Foul Odor after Cleansing No No No -Anesthetic Used 4% Lidocaine 5% Lidocaine 5% Lidocaine Solution Gel Gel 01/20/22 01/27/22 11:15 11:29 Wound Center Nurse 1 #5 left lateral stump -Combined with other wound -Current Size (cm) - Length 0.1 0.2 -Current Size (cm) - Width 0.1 0.8 -Current Size (cm) - Depth 0.1 1 -Total Square Cm 0.01 0.16 -Photo Taken No -Epithelialization -Tunneling -Undermining/Tunneling -Circular Undermining -Exudate Amt None Present Medium -Exudate Type Purulent -Wound Margin Distinct, Outline Attached -Granulation Amt None Present (0 Medium (34-66%) %) -Granulation Quality Red -Necrosis Amt None Present (0 Medium (34-66%) %) -Necrotic Tissue Type Adherent Slough -Structure Exposed N/A -Texture (Margy-wound Skin Appearance) Assessed Scarring -Moisture (Margy-wound Skin Appearance) Assessed Dry/Scaly -Color (Margy-wound Skin Appearance) Assessed No Abnormality -Temperature (Margy-wound Skin No Abnormality No Abnormality Appearance) (Pt Warm) (Pt Warm) -Tenderness on Palpation (Margy-wound No No Skin Appearance) -Ulcer Cleansing Soap and Water Soap and Water -Foul Odor after Cleansing No No -Anesthetic Used 5% Lidocaine 4% Lidocaine Gel Solution 4-left hand 5th digit -Combined with other wound -Current Size (cm) - Length 0.1 -Current Size (cm) - Width 0.1 -Current Size (cm) - Depth 0.1 -Total Square Cm 0.01 -Photo Taken -Epithelialization -Tunneling -Undermining/Tunneling -Circular Undermining -Exudate Amt -Wound Margin -Granulation Amt None Present (0 %) -Granulation Quality -Slough/Fibrin No -Necrosis Amt None Present (0 %) -Necrotic Tissue Type Adherent Slough -Structure Exposed -Texture (Margy-wound Skin Appearance) Assessed -Moisture (Margy-wound Skin Appearance) Assessed -Color (Margy-wound Skin Appearance) Assessed -Temperature (Margy-wound Skin No Abnormality Appearance) (Pt Warm) -Tenderness on Palpation (Margy-wound No Skin Appearance) -Ulcer Cleansing -Foul Odor after Cleansing No -Anesthetic Used 3. R heel -Combined with other wound -Current Size (cm) - Length 3 1.6 -Current Size (cm) - Width 3 1.8 -Current Size (cm) - Depth 0.1 0.1 -Total Square Cm 9 2.88 -Photo Taken No -Epithelialization -Tunneling -Undermining/Tunneling -Circular Undermining -Exudate Amt Medium Medium -Exudate Type Serosanguineous Serosanguineous -Wound Margin Distinct, Distinct, Outline Outline Attached Attached -Granulation Amt Medium (34-66%) None Present (0 %) -Granulation Quality -Slough/Fibrin -Necrosis Amt Medium (34-66%) Large (67-100%) -Necrotic Tissue Type Adherent Slough Eschar -Structure Exposed None/Limited to Skin Breakdown -Texture (Margy-wound Skin Appearance) Assessed Scarring -Moisture (Margy-wound Skin Appearance) Assessed Dry/Scaly -Color (Margy-wound Skin Appearance) Assessed Assessed -Temperature (Margy-wound Skin No Abnormality No Abnormality Appearance) (Pt Warm) (Pt Warm) -Tenderness on Palpation (Margy-wound No Skin Appearance) -Ulcer Cleansing Soap and Water Soap and Water -Foul Odor after Cleansing No No -Anesthetic Used 5% Lidocaine 4% Lidocaine Gel Solution WC - Nurse 2 - General Ulcer CM Notes Start: 12/30/21 11:40 Freq: Status: Active Protocol: Activity Type Activity Date Activity User E-Sign Co-Sign Detail Recorded Client Recorded Date Recorded By Document 12/30/21 11:40 MW [id number] 12/30/21 12:08 MW Document 01/06/22 11:48 MW [id number] 01/06/22 12:01 MW Document 01/13/22 11:36 MW [id number] 01/13/22 11:53 MW Document 01/20/22 11:43 MW [id number] 01/20/22 11:57 MW Document 01/27/22 12:14 MW [id number] 01/27/22 12:38 MW 12/30/21 01/06/22 01/13/22 11:40 11:48 11:36 Wound Center Nurse 2 #5 left lateral stump -Time 11:47 11:48 11:37 -Correct Patient Yes Yes Yes -Correct Side, Site, Position Yes Yes Yes -Correct Procedure Yes Yes Yes -Procedure Performed Yes Yes Yes -Type of Procedure Debridement Debridement Debridement -Clinical Debridement Subcutaneous Subcutaneous Subcutaneous -Tissue Removed Subcutaneous Subcutaneous Subcutaneous -Post Debridement (cm) - Length 0.1 0.1 0.1 -Post Debridement (cm) - Width 0.6 0.6 0.6 -Post Debridement (cm) - Depth 0.2 0.7 0.7 -Total Square (Post) (cm) 0.06 0.06 0.06 -Area of Debridement (cm) - Length 0.1 0.1 0.1 -Area of Debridement (cm) - Width 0.6 0.6 0.6 -Total Square (Area) (cm) 0.06 0.06 0.06 -Tunneling No No No -Undermining/Tunneling No No No -Undermining/Tunneling Starts (O'clock ) -Undermining/Tunneling Ends (O'clock) -Maximum Distance (cm) -Circular Undermining No No No -Wound/Ulcer Outcome Not Healed Not Healed Not Healed -Ulcer Cleansing Rinsed/ Rinsed/ Rinsed/ Irrigated with Irrigated with Irrigated with Saline Saline Saline -Foul Odor after Cleansing No No No -Bioengineered Tissue No No No -Bleeding Controlled with Pressure Pressure Pressure -Treatment Response Procedure Procedure Procedure Tolerated Well Tolerated Well Tolerated Well -Offloading No No No -Debridement - Subq, 1st 20sq cm No Yes Yes 4-left hand 5th digit -Time 11:48 11:49 11:37 -Correct Patient Yes Yes Yes -Correct Side, Site, Position Yes Yes Yes -Correct Procedure Yes Yes Yes -Procedure Performed Yes Yes Yes -Type of Procedure Debridement Debridement Debridement -Clinical Debridement Subcutaneous Subcutaneous Subcutaneous -Tissue Removed Subcutaneous Subcutaneous Subcutaneous -Post Debridement (cm) - Length 0.5 0.3 0.2 -Post Debridement (cm) - Width 0.3 0.1 0.2 -Post Debridement (cm) - Depth 0.1 0.1 0.1 -Total Square (Post) (cm) 0.15 0.03 0.04 -Area of Debridement (cm) - Length 0.5 0.3 0.2 -Area of Debridement (cm) - Width 0.3 0.1 0.2 -Total Square (Area) (cm) 0.15 0.03 0.04 -Tunneling No No No -Undermining/Tunneling No No No -Circular Undermining No No No -Wound/Ulcer Outcome Not Healed Not Healed Not Healed -Ulcer Cleansing Rinsed/ Rinsed/ Rinsed/ Irrigated with Irrigated with Irrigated with Saline Saline Saline -Foul Odor after Cleansing No No No -Bioengineered Tissue No No No -Bleeding Controlled with Pressure Pressure Pressure -Treatment Response Procedure Procedure Procedure Tolerated Well Tolerated Well Tolerated Well -Offloading No No No -Debridement - Subq, 1st 20sq cm Yes No No 3. R heel -Time 11:48 11:49 11:37 -Correct Patient Yes Yes Yes -Correct Side, Site, Position Yes Yes Yes -Correct Procedure Yes Yes Yes -Procedure Performed Yes Yes Yes -Type of Procedure Debridement Debridement Debridement -Clinical Debridement Subcutaneous Subcutaneous Subcutaneous -Tissue Removed Subcutaneous Subcutaneous Subcutaneous -Post Debridement (cm) - Length 1.4 1.5 1.5 -Post Debridement (cm) - Width 1.8 1.6 1.5 -Post Debridement (cm) - Depth 0.1 0.1 0.1 -Total Square (Post) (cm) 2.52 2.40 2.25 -Area of Debridement (cm) - Length 1.4 1.5 1.5 -Area of Debridement (cm) - Width 1.8 0.6 1.5 -Total Square (Area) (cm) 2.52 0.90 2.25 -Tunneling No No No -Undermining/Tunneling No No No -Circular Undermining No No No -Wound/Ulcer Outcome Not Healed Not Healed Not Healed -Ulcer Cleansing Rinsed/ Rinsed/ Rinsed/ Irrigated with Irrigated with Irrigated with Saline Saline Saline -Foul Odor after Cleansing No No No -Bioengineered Tissue Yes Yes Yes -Type of Bioengineered Tissue Epifix 18mm Epifix 18mm Epifix 18mm Disc Disc Disc -Expiration Date 09/29/26 10/30/26 10/30/26 -Product Lot Number [id number] -Percent Used 100 100 100 -Lot number of Saline Used [id number] -Bleeding Controlled with Pressure Pressure NA -Treatment Response Procedure Procedure Procedure Tolerated Well Tolerated Well Tolerated Well -Offloading No No No -Assistive Device(s) -Debridement - Subq, 1st 20sq cm No No No -Apply Skin Sub - 1st 25 sq cm - Feet 1 1 1 -Epifix 18mm Disc 3 3 3 Pain Scale: 0-10 Numeric Is Patient Pain Free? Yes Yes Yes 01/20/22 01/27/22 11:43 12:14 Wound Center Nurse 2 #5 left lateral stump -Time 11:43 12:37 -Correct Patient Yes Yes -Correct Side, Site, Position Yes Yes -Correct Procedure Yes Yes -Procedure Performed Yes Yes -Type of Procedure Debridement Debridement -Clinical Debridement Subcutaneous Subcutaneous -Tissue Removed Subcutaneous Subcutaneous -Post Debridement (cm) - Length 0.1 0.5 -Post Debridement (cm) - Width 0.6 1.0 -Post Debridement (cm) - Depth 0.8 1.3 -Total Square (Post) (cm) 0.06 0.50 -Area of Debridement (cm) - Length 0.1 0.5 -Area of Debridement (cm) - Width 0.6 1.0 -Total Square (Area) (cm) 0.06 0.50 -Tunneling No No -Undermining/Tunneling No Yes -Undermining/Tunneling Starts (O'clock 5 ) -Undermining/Tunneling Ends (O'clock) 7 -Maximum Distance (cm) 1.3 -Circular Undermining No No -Wound/Ulcer Outcome Not Healed Not Healed -Ulcer Cleansing Rinsed/ Rinsed/ Irrigated with Irrigated with Saline Saline -Foul Odor after Cleansing No No -Bioengineered Tissue No No -Bleeding Controlled with Pressure Pressure -Treatment Response Procedure Procedure Tolerated Well Tolerated Well -Offloading No No -Debridement - Subq, 1st 20sq cm Yes Yes 4-left hand 5th digit -Time 11:44 -Correct Patient Yes -Correct Side, Site, Position Yes -Correct Procedure Yes -Procedure Performed No -Type of Procedure -Clinical Debridement -Tissue Removed -Post Debridement (cm) - Length 0 -Post Debridement (cm) - Width 0 -Post Debridement (cm) - Depth 0 -Total Square (Post) (cm) 0 -Area of Debridement (cm) - Length -Area of Debridement (cm) - Width -Total Square (Area) (cm) -Tunneling -Undermining/Tunneling -Circular Undermining -Wound/Ulcer Outcome Healed- Epithelialized -Ulcer Cleansing -Foul Odor after Cleansing -Bioengineered Tissue -Bleeding Controlled with -Treatment Response -Offloading -Debridement - Subq, 1st 20sq cm 3. R heel -Time 11:44 12:30 -Correct Patient Yes Yes -Correct Side, Site, Position Yes Yes -Correct Procedure Yes Yes -Procedure Performed Yes Yes -Type of Procedure Debridement Debridement -Clinical Debridement Subcutaneous Subcutaneous -Tissue Removed Subcutaneous Subcutaneous -Post Debridement (cm) - Length 1.4 1.4 -Post Debridement (cm) - Width 1.4 1.8 -Post Debridement (cm) - Depth 0.1 0.1 -Total Square (Post) (cm) 1.96 2.52 -Area of Debridement (cm) - Length 1.4 1.4 -Area of Debridement (cm) - Width 1.4 1.8 -Total Square (Area) (cm) 1.96 2.52 -Tunneling No No -Undermining/Tunneling No No -Circular Undermining No No -Wound/Ulcer Outcome Not Healed Not Healed -Ulcer Cleansing Rinsed/ Rinsed/ Irrigated with Irrigated with Saline Saline -Foul Odor after Cleansing No No -Bioengineered Tissue Yes Yes -Type of Bioengineered Tissue Epifix 18mm Epifix 18mm Disc Disc -Expiration Date 10/30/26 11/30/26 -Product Lot Number [id number] -Percent Used 100 100 -Lot number of Saline Used [id number] -Bleeding Controlled with Pressure Pressure -Treatment Response Procedure Procedure Tolerated Well Tolerated Well -Offloading No No -Assistive Device(s) Wheelchair -Debridement - Subq, 1st 20sq cm No No -Apply Skin Sub - 1st 25 sq cm - Feet 1 1 -Epifix 18mm Disc 3 3 Pain Scale: 0-10 Numeric Is Patient Pain Free? Yes Yes WC - Nurse 3 - General Ulcer D/C NN Start: 12/30/21 11:40 Freq: Status: Active Protocol: Activity Type Activity Date Activity User E-Sign Co-Sign Detail Recorded Client Recorded Date Recorded By Document 12/30/21 12:16 DL [id number] 12/30/21 12:19 DL Document 01/06/22 12:05 ML [id number] 01/06/22 12:08 ML Document 01/13/22 12:10 BMF [id number] 01/13/22 12:14 BMF Document 01/20/22 12:13 ML [id number] 01/20/22 12:17 ML Document 01/27/22 12:38 MW [id number] 01/27/22 12:39 MW 12/30/21 01/06/22 01/13/22 12:16 12:05 12:10 Wound Care Nurse 3 #5 left lateral stump -Ulcer Cleansing Rinsed/ Rinsed/ Rinsed/ Irrigated with Irrigated with Irrigated with Saline Saline Saline -Foul Odor after Cleansing No No No -Negative Pressure Wound Therapy -Primary Dressing Applied Promogran Promogran Promogran Leighann Matter -Primary Dressing Covered/Secured with Dry Gauze & Dry Gauze & Dry Gauze & Roll Gauze, Roll Gauze, Roll Gauze, Secured with Secured with Secured with Tape Tape Tape -Aquacel AG 4x4 -Promogran 1 1 -Promogran Leighann Matter 1 4-left hand 5th digit -Ulcer Cleansing Rinsed/ Rinsed/ Rinsed/ Irrigated with Irrigated with Irrigated with Saline Saline Saline -Foul Odor after Cleansing No No No -Primary Dressing Applied Promogran Promogran Leighann Matter -Other Dressing promogran -Primary Dressing Covered/Secured with Dry Gauze, Dry Gauze, Dry Gauze, Secured with Secured with Secured with Tape Tape Tape -Promogran 0 -Promogran Leighann Matter 1 3. R heel -Ulcer Cleansing Rinsed/ Irrigated with Saline -Foul Odor after Cleansing No No -Other Dressing Epifix abd,nurses hat, EPIFIX epifix -Primary Dressing Covered/Secured with Dry Gauze & Dry Gauze & Roll Gauze, Roll Gauze, Secured with Secured with Tape Tape,Other -Other Covering padding HEEL HAT -Promogran Treatment Response Procedure Procedure Tolerated Well Tolerated Well Pain Scale: 0-10 Numeric Is Patient Pain Free? Yes Yes Yes Teaching: Wound Center Dressing Your Wound -Person Taught -Teaching Method -Response to teaching WC - Visit Discharge Discharge Condition Stable Stable Ambulatory Status Wheelchair Wheelchair Transportation Private Auto Private Auto Accompanied by ELEONORA Medication Reconcilliation completed & provided to patient/care provider Clinical Summary of Care Provided Facility Type Home Health Home Health Orders Sent Yes 01/20/22 01/27/22 12:13 12:38 Wound Care Nurse 3 #5 left lateral stump -Ulcer Cleansing Rinsed/ Rinsed/ Irrigated with Irrigated with Saline Saline -Foul Odor after Cleansing No -Negative Pressure Wound Therapy N/A -Primary Dressing Applied Promogran Aquacel AG 4x4 -Primary Dressing Covered/Secured with Dry Gauze,Dry Dry Gauze & Gauze & Roll Roll Gauze, Gauze,Secured Secured with with Tape Tape -Aquacel AG 4x4 1 -Promogran 1 -Promogran Leighann Matter 4-left hand 5th digit -Ulcer Cleansing -Foul Odor after Cleansing -Primary Dressing Applied -Other Dressing -Primary Dressing Covered/Secured with -Promogran -Promogran Leighann Matter 3. R heel -Ulcer Cleansing Not Cleansed -Foul Odor after Cleansing -Other Dressing -Primary Dressing Covered/Secured with Dry Gauze,Dry Dry Gauze & Gauze & Roll Roll Gauze, Gauze,Secured Secured with with Tape Tape -Other Covering EIFIX,NURSES abd HAT -Promogran 1 Treatment Response Procedure Tolerated Well Pain Scale: 0-10 Numeric Is Patient Pain Free? Yes Yes Teaching: Wound Center Dressing Your Wound -Person Taught Patient,Family -Teaching Method Discussion -Response to teaching Verbalize understanding WC - Visit Discharge Discharge Condition Stable Stable Ambulatory Status Wheelchair Wheelchair Transportation Private Auto Private Auto Accompanied by daughter Medication Reconcilliation completed & No No provided to patient/care provider Clinical Summary of Care Provided Yes Yes Facility Type Orders Sent Additional Wound Wound debrided: Right Heel Type of Debridement: Excisional debridement Anesthesia Used: 4% Lidocaine Solution Depth: Down to and including healthy tissue and in the subcutaneous layer Instrument Used: 5mm curette Tissue Removed: Slough and devitalized tissue Severity: Fat Layer Exposed Amount of bleeding with debridement: Mild Bleeding Controlled with: Pressure Patient tolerated procedure: Patient tolerated procedure well Assessment/Plan Assessment/Plan (1) Decubitus ulcer of right heel, stage 3: CODE(S): L89.613 - Pressure ulcer of right heel, stage 3 (2) Type 2 diabetes mellitus: CODE(S): E11.9 - Type 2 diabetes mellitus without complications (3) Ischemic colitis: CODE(S): K55.9 - Vascular disorder of intestine, unspecified (4) PAD (peripheral artery disease): CODE(S): I73.9 - Peripheral vascular disease, unspecified (5) Diabetic neuropathy: CODE(S): E11.40 - Type 2 diabetes mellitus with diabetic neuropathy, unspecified (6) Skin ulcer of finger with fat layer exposed: CODE(S): L98.492 - Non-pressure chronic ulcer of skin of other sites with fat layer exposed (7) Ulcer of amputation stump of foot: CODE(S): T87.89 - Other complications of amputation stump; L97.509 - Non- pressure chronic ulcer of other part of unspecified foot with unspecified severity PLAN: No significant change in right heel and left stump worsened. Debrid ement done to both ulcers as documented above, procedure was well-tolerated. Cultures taken for left stump, X- ray ordered. LOIS and Venous studies of bilateral lower extremity also ordered. 6th application of Epifix to right heel done today using 100% of product. Moistened with hydrogel, covered with adaptic touch and secured with Steri-Strips. Leave in place for a week. ? Purulent drainage from left stump per patient. Switch from Promogran to Aquacel Ag. Application for snap vac started. She reports increased drainage and there is undermining. Optimal diabetes control and offloading strongly recommended. She states that her most recent A1C was at 7 and home reading have been over all stable. Increase protein intake, vitamin C and D discussed. She voiced understanding. Her questions were answered and she was advised to call with any further questions or concerns. Follow-up in 1 week. This note was generated with [employer] software. It may contain incorrect words, spelling, and punctuation that were not noted in checking the note before signing.
--- NOTE | 2022-01-27 13:42 | RAD_ITS ---
EXAM: XR LEFT FOOT COMPLETE, 3 OR MORE VIEWS CLINICAL INDICATION: L STUMP ULCER TECHNIQUE: Frontal, lateral and oblique views of the left foot. This report was created using [employer] report generation technology. COMPARISON: None. FINDINGS: BONES/JOINTS: Transmetatarsal amputation. Diffuse demineralization of the bones. No acute fracture. No subluxation. Normal alignment. Preservation of the joint space. No sclerotic or destructive changes observed. There is a calcaneal spur. SOFT TISSUES: Diffuse soft tissue swelling around the foot with foci of air at the level of the stump. This can suggest an infectious process. No radiopaque foreign body. VASCULATURE: There are atherosclerotic vascular calcifications. RAD/Foot min 3 Views IMPRESSION: 1. Diffuse soft tissue swelling around the foot with foci of air at the level of the stump. This can suggest an infectious process. 2. Transmetatarsal amputation. 3. Diffuse demineralization of the bones. Electronically Signed: Roberto Pennington MD at 17:51 EDT ,
== END 2022-01-27 23:59 | disposition home or self-care (01) ==
LOC: WC 11:15
PROVIDERS: PCP Family Medicine; Referring Provider Internal Medicine; Visit Provider Internal Medicine
DX: E11.621 Type 2 diabetes mellitus with foot ulcer (principal); L89.613 Pressure ulcer of right heel, stage 3; E11.51 Type 2 diabetes mellitus with diabetic peripheral angiopathy without gangrene; T87.89 Other complications of amputation stump; L98.492 Non-pressure chronic ulcer of skin of other sites with fat layer exposed; L97.522 Non-pressure chronic ulcer of other part of left foot with fat layer exposed; E11.40 Type 2 diabetes mellitus with diabetic neuropathy, unspecified; K55.9 Vascular disorder of intestine, unspecified; Y83.5 Amputation of limb(s) as the cause of abnormal reaction of the patient, or of later complication, without mention of misadventure at the time of the procedure; R19.7 Diarrhea, unspecified
CPT/HCPCS: 11042; 15275; 73630; 83630; 83993; 87070; 87075; 87077; 87205; 87329; 87493; 87506; Q4186

== ENCOUNTER 2022-02-10 10:14 | Outpatient (CLI) | payer MEDICARE, OTHER, SELFPAY ==
--- NOTE | 2022-02-10 12:09 | MRI_ITS ---
STUDY: MRI LEFT MIDFOOT REASON FOR EXAM: Female, 67 years old. STUMP INFECTION TECHNIQUE: Standardized fat and water weighted pulse sequences were obtained in all 3 orthogonal planes. COMPARISON: None. FINDINGS: Normal talonavicular articulation. Normal calcaneocuboid articulation. Normal navicular-cuneiform articulations. Normal intercuneiform articulations. Normal first tarsometatarsal articulation. Normal Lisfranc ligament. Normal second and third tarsometatarsal articulations. Normal cuboid fourth and cuboid fifth tarsometatarsal articulation. Status post transmetatarsal amputation of the foot. Skin thickening and edema of the subcutaneous fat at site of amputation consistent with cellulitis. 2 cm area of fluid distal to the third and fourth metatarsal bones which may represent phlegmon or developing abscess. Normal appearance to the remaining metatarsals without evidence of osteomyelitis. Normal tibialis anterior tendon. Normal extensor hallucis longus tendon. Normal extensor digitorum longus tendons. Normal peroneus longus tendon and distal insertion. Normal peroneus brevis tendon and distal insertion. Normal intrinsic muscles of the mid and forefoot region. Normal extensor digitorum brevis muscle. Normal subcutis adipose space. MRI/Lower Ext/No Jt/w/o IMPRESSION: Status post transmetatarsal amputation of foot with cellulitis and 2 cm phlegmon/developing abscess distal to the third and fourth metatarsal bones. No osteomyelitis. Electronically Signed: Ángel Ordaz MD at 18:09 EDT ,
== END 2022-02-10 23:59 | disposition home or self-care (01) ==
LOC: MRI 10:17
PROVIDERS: PCP Family Medicine; Referring Provider Internal Medicine; Visit Provider Internal Medicine
DX: L08.9 Local infection of the skin and subcutaneous tissue, unspecified (principal)
CPT/HCPCS: 73718

== ENCOUNTER 2022-02-15 10:59 | Emergency (ER) | payer MEDICARE, OTHER, SELFPAY ==
[2022-02-15 11:00] VITALS: BP 190/84; PULSE 71; RESP 16; TEMP 36.2; O2SAT 99; BMI 26.6
--- NOTE | 2022-02-15 12:01 | EDS_ITS ---
HPI History of Present Illness Chief Complaint: General Illness Detail of Chief Complaint: Left leg swelling Informant: patient Onset/Context/Timing Onset: Weeks Narrative Narrative: Patient sent to the ER from vascular lab secondary to left lower extremity DVT. Study was ordered by Dr. Barrera who sees her in the wound care center. [facility] advises that when they call Dr. Barrera she recommended coming to the ER because she is not the primary care physician. Patient reports swelling in her left leg with some intermittent pain for the past 3 weeks. 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 Home Medications Alfredo (with collagen) 1 packet PO BIDCM #0 ea 03/25/21 [Rx Last Taken 08/30/21] albuterol sulfate [Ventolin HFA] 1 puff INHALATION Q4H PRN PRN #0 g 03/25/21 [Rx Last Taken Unknown] guaifenesin [Mucus Relief ER] 1,200 mg PO BID #0 tab 03/25/21 [Rx Last Taken 08/30/21] menthol-zinc oxide [Calmoseptine] 1 applic TOPICAL BID #0 g 03/25/21 [Rx Last Taken 08/30/21] nystatin [Nyamyc] 1 applic TOPICAL TID #0 g 03/25/21 [Rx Last Taken 08/30/21] ondansetron 4 mg PO Q6H PRN PRN #0 tab 03/25/21 [Rx Last Taken Unknown] tramadol 50 mg PO Q6H PRN 05/18/21 [History Last Taken Unknown] acidophilus-pectin, citrus 1 tab PO BID 08/31/21 [History Last Taken 08/30/21] cholecalciferol (vitamin D3) 250 mcg PO DAILY 08/31/21 [History Last Taken 11/19] loperamide 4 mg PO TID 08/31/21 [History Last Taken 08/30/21] hydrocortisone acetate [Anucort-HC] 50 mg TX DAILY #42 ea 09/04/21 [Rx Last Taken Unknown] pantoprazole 40 mg PO BIDCM #60 tab 09/04/21 [Rx Last Taken Unknown] hydrocortisone 2.5 % topical cream with perineal applicator 1 applic TX QD-BID PRN #30 g 09/07/21 [Rx Last Taken Unknown] Db 7 2 cap Q8 12/16/21 [History Last Taken Unknown] budesonide 3 mg capsule,delayed,extended release 9 mg PO DAILY #30 ea 12/17/21 [Rx Last Taken Unknown] diphenoxylate-atropine 2.5 mg-0.025 mg tablet 1 tab PO BID PRN #60 tab 01/05/22 [Rx Last Taken Unknown] doxycycline hyclate 100 mg capsule 100 mg PO BID #28 cap 01/05/22 [Rx Last Taken Unknown] vancomycin 125 mg capsule 125 mg PO DIRECTED #56 cap 01/05/22 [Rx Last Taken Unknown] folic acid 1 mg tablet 1 mg PO DAILY #30 tab 01/17/22 [Rx Last Taken Unknown] sulfasalazine 500 mg tablet 0.5 g PO BID #60 tab 01/17/22 [Rx Last Taken Unknown] rivaroxaban [Xarelto DVT-PE Treat 30d Start] See Rx Instructions .ROUTE .COMPLEX #51 tab 02/15/22 [Rx Last Taken Unknown] Allergy/AdvReac Type Severity Reaction Status Date / Time cefprozil Allergy Shortness Verified 02/15/22 11:00 of breath ceftriaxone Allergy Hives Verified 02/15/22 11:00 clindamycin Allergy Rash Verified 02/15/22 11:00 enalapril Allergy Other Verified 02/15/22 11:00 enoxaparin Allergy Rash Verified 02/15/22 11:00 heparin Allergy Rash Verified 02/15/22 11:00 levalbuterol Allergy Other Verified 02/15/22 11:00 morphine Allergy Shortness Verified 02/15/22 11:00 of breath Penicillins Allergy Anaphylaxis Verified 02/15/22 11:00 shellfish derived Allergy Anaphylaxis Verified 02/15/22 11:00 valsartan Allergy Other Verified 02/15/22 11:00 vancomycin Allergy Rash Verified 02/15/22 11:00 Family History Mother Cancer Lung CA w/ tobacco use history. Diabetes COPD (chronic obstructive pulmonary disease) Father Cancer Lung CA w/ tobacco use history. Diabetes COPD (chronic obstructive pulmonary disease) Heart disease Surgical History History of appendectomy History of eye surgery History of foot surgery History of lumpectomy History of tubal ligation Social History household members: none Smoking Status: Never smoker alcohol intake: never substance use type: does not use ROS ROS ED Constitutional Constitutional ED: Denies chills or fever(s) Eyes Eyes: Denies change in vision ENT ENT ED: Denies ear pain or rhinorrhea Cardiovascular Cardiovascular: Reports palpitations; Denies chest pain or racing heartbeat Respiratory/Chest Respiratory/Chest: Denies cough or dyspnea Gastrointestinal Gastrointestinal: Reports diarrhea; Denies abdominal pain, nausea or vomiting Musculoskeletal Musculoskeletal: Reports arthralgias Integumentary Reports other Details: Chronic left foot wound Allergic/Immunologic Allergic/Immunologic ED: Denies urticaria EXAM Physical Exam Const Vital Signs: 02/15/22 11:00 Temperature 97.2 F L Temperature Source Temporal Pulse Rate 71 Respiratory Rate 16 Blood Pressure 190/84 H Blood Pressure Mean 119 Pulse Ox 99 Oxygen Delivery Method Room Air Positive well nourished and well developed General Appearance ED: well developed HEENT Reports moist mucous membranes Eyes PERRL and EOMs intact bilaterally Neck no lymphadenopathy and supple Chest Wall inspection of chest normal and palpation of chest normal Resp normal respiratory effort and clear to auscultation bilaterally Cardio regular rate and regular rhythm GI non-tender Palpation: soft Extremity Extremity Narrative: Mild edema left lower extremity. Wound VAC to left foot. Neuro oriented x3 Sensorium / Orientation: alert MDM MDM Treatment and Re-Evaluation Narrative: Patient's vascular study is reviewed. Common femoral vein is dilated and noncompressible. Profunda vein is noncompressible. Distal femoral vein is noncompressible. Popliteal vein is partially compressible. TP trunk is partially compressible. Peroneal vein is dilated and noncompressible. Patient's history is reviewed. She does have allergies noted to heparin and Lovenox which have caused rash. She had previously been on Eliquis but it was stopped secondary to nosebleeds. She was admitted to the hospital in August of last year with a GI bleed. In light of this I spoke with Dr. Hugo who had seen her in consult previously. He advises the patient should be started on an oral anticoagulant, preferably Xarelto, and if she fails this will require an IVC filter. He is concerned that if we do not try an anticoagulant she may clot up to the level of the filter and have significant problems with leg swelling. I also discussed this plan with the nurse practitioner for patient's primary care physician, Dr. Billings. Patient is to schedule a follow-up appointment with him in the office. Discharge Plan Triage Chief Complaint: General Illness Other Complaint: Lower Extremity Injury ED Provider: Yara Clifton Dx/Rx/DC Orders Clinical Impression: DVT (deep venous thrombosis) Instructions: ED Deep Vein Thrombosis (DVT) Prescriptions: New Xarelto DVT-PE Treat 30d Start 15 mg (42)- 20 mg (9) tablets,dose pack See Rx Instructions .ROUTE .COMPLEX Qty: 51 RF: 0 No Action diphenoxylate-atropine [Lomotil] 2.5-0.025 mg tablet 1 tab PO BID PRN (Reason: diarrhea) Qty: 60 RF: 0 doxycycline hyclate 100 mg capsule 100 mg PO BID Qty: 28 RF: 0 vancomycin 125 mg capsule 125 mg PO DIRECTED Qty: 56 RF: 0 nystatin [Nyamyc] 100,000 unit/gram Powder 1 applic topical TID Qty: 0 RF: 0 albuterol sulfate [Ventolin HFA] 90 mcg/actuation Hfa Aerosol Inhaler 1 puff inhalation Q4H PRN PRN (Reason: SHORTNESS OF BREATH) Qty: 0 RF: 0 ondansetron 4 mg Tablet,Disintegrating 4 mg PO Q6H PRN PRN (Reason: NAUSEA) Qty: 0 RF: 0 menthol-zinc oxide [Calmoseptine] 0.44-20.6 % Ointment 1 applic topical BID Qty: 0 RF: 0 guaifenesin [Mucus Relief ER] 600 mg Tablet Extended Release 12hr 1,200 mg PO BID Qty: 0 RF: 0 Alfredo (with collagen) 7-7-1.5 gram Powder In Packet 1 packet PO BIDCM Qty: 0 RF: 0 tramadol 50 mg Tablet 50 mg PO Q6H PRN (Reason: Pain) RF: 0 cholecalciferol (vitamin D3) 50 mcg (2,000 unit) Capsule 250 mcg PO DAILY RF: 0 loperamide 2 mg capsule 4 mg PO TID RF: 0 acidophilus-pectin, citrus 25 million cell -100 mg tablet 1 tab PO BID RF: 0 hydrocortisone acetate [Anucort-HC] 25 mg Suppository 50 mg TX DAILY Qty: 42 RF: 0 pantoprazole 40 mg tablet,delayed release (DR/EC) 40 mg PO BIDCM Qty: 60 RF: 0 Db 7 2 cap Q8 RF: 0 hydrocortisone 2.5 % cream with perineal applicator 1 applic TX QD-BID PRN (Reason: Fissure) Qty: 30 RF: 3 budesonide 3 mg capsule,delayed,extend.release 9 mg PO DAILY Qty: 30 RF: 1 sulfasalazine 500 mg tablet 0.5 g PO BID Qty: 60 RF: 2 folic acid 1 mg tablet 1 mg PO DAILY Qty: 30 RF: 2 Primary Care Provider: Cody Billings Referrals: Cody Billings MD [Primary Care Provider] - 1-2 Weeks Disposition Disposition: Home, Self Care
[2022-02-15] MEDS: Rivaroxaban 15 MG Tablet PO (12:12)
--- NOTE | 2022-02-15 14:25 | CHAPLAIN ---
Type of Pastoral Visit ___ Initial Visit ___ Follow-up Visit ___ On-call Visit ___ General Patient Visit ___ Spiritual Assessment ___ Family Conference ___ Bereavement ___ Rapid Response ___ Code Blue ___ Other (describe below) Pastoral Care Referral From ___ Patient ___ Family ___ Nurse ___ Physician ___ Field Nurse Case Manager ___ Market Research Interviewer ___ Other (describe below) Sacrament/Intervention ___ Active listening ___ Anointing ___ Temple ___ Bereavement ___ Communion ___ Dang exploration ___ ___ Life review ___ Prayer ___ Reconciliation ___ Sacrament of Sick ___ Supportive presence ___ Wedding ___ Other (describe below) Pastoral Comments during rounds in ED discovered this patient and her sister who are both known to this repairer sash and door; request was made by sister to give support to patient; presence, listening ear, and prayer was given; patient and sister expresses appreciation for the extra care and time spent for good support
== END 2022-02-15 12:46 | disposition home or self-care (01) ==
PROVIDERS: Emergency Provider Emergency Medicine; PCP Family Medicine; Visit Provider Emergency Medicine
DX: I82.402 Acute embolism and thrombosis of unspecified deep veins of left lower extremity (principal); L89.613 Pressure ulcer of right heel, stage 3; E11.621 Type 2 diabetes mellitus with foot ulcer; E11.51 Type 2 diabetes mellitus with diabetic peripheral angiopathy without gangrene; L98.492 Non-pressure chronic ulcer of skin of other sites with fat layer exposed; L97.522 Non-pressure chronic ulcer of other part of left foot with fat layer exposed; E11.40 Type 2 diabetes mellitus with diabetic neuropathy, unspecified; Y83.5 Amputation of limb(s) as the cause of abnormal reaction of the patient, or of later complication, without mention of misadventure at the time of the procedure; R60.0 Localized edema
CPT/HCPCS: 93970; 99282

== ENCOUNTER 2022-02-24 11:00 | Outpatient (RCR) | payer MEDICARE, OTHER, SELFPAY ==
[2022-01-28 00:40] VITALS: BP 156/71; PULSE 70; RESP 18; TEMP 36.4
[2022-02-03 11:41] VITALS: BP 166/61; PULSE 71; RESP 18; TEMP 36.6
--- NOTE | 2022-02-03 13:13 | PCM.WC.PN ---
History of Present Illness Date of Service: 02/03/22 Chief Complaint: Right Foot/Heel ulcer History of Wound: Ms. 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 Noted about 3 weeks ago. Believes it may have happened following repeated rubbing of her heel on her bed. She has been applying Medihoney however no significant improvement. She believes her last A1c was 7.6. Currently on DB 7 which she states that she takes for diabetes. She states that her numbers have been well controlled until yesterday where she had a reading in the 200s. Follows up with her primary care physician in [place]. Regarding gout also, she denies any significant drainage, chills or feeling of unwell. She is also on budesonide prescribed by GI for ischemic colitis. Progress of Wound: Left stump with some improvement in depth. Has had 6 applications of epi fix so far to the right heel. Subjective Subjective No acute concerns at this time. Objective Data Objective Data Vital Signs: Vital Signs Temp Pulse Resp BP 97.8 F 71 18 166/61 H 02/03/22 11:41 02/03/22 11:41 02/03/22 11:41 02/03/22 11:41 Charges/Coding Procedures Integumentary 111xxx-113xx: 40650 Vandana subq tissue 20 sq cm/< 150xxx-152xx: 25370 Skin sub graft trnk/arm/leg Physical Exam Const alert, oriented x3 and no apparent distress General Appearance: cooperative, comfortable and well kempt HEENT normocephalic and head/scalp atraumatic Head and Scalp: normal to inspection, normocephalic and atraumatic Neck full ROM General: normal visual inspection Resp normal respiratory effort Effort and Inspection: able to speak in complete sentences Skin Wounds: wounds noted Neuro oriented x3, CN's II-XII intact bilaterally, moves all extremities and no focal motor deficits Psych Appearance: grossly normal Activity / Motor Behavior: appropriate eye contact Speech: normal speech Debridement Note Debridement Note Wound debrided: Left lateral foot stump Type of Debridement: Excisional debridement Anesthesia Used: 4% Lidocaine Solution Depth: Down to and including healthy tissue and in the subcutaneous layer Percentage of wound debrided: 100 Instrument Used: 5mm curette Tissue Removed: Slough and devitalized tissue Severity: Fat Layer Exposed Amount of bleeding with debridement: Mild Bleeding Controlled with: Pressure Patient tolerated procedure: Patient tolerated procedure well Post-Debridement Measurements and Additional Note: Post-Debridement Measurements/Treatment - Nurse 1 - General Ulcer Assessment Start: 02/03/22 11:39 Freq: Status: Active Protocol: [place] Activity Type Activity Date Activity User E-Sign Co-Sign Detail Recorded Client Recorded Date Recorded By Document 02/03/22 11:41 DL [id number] 02/03/22 11:55 DL 02/03/22 11:41 WC - Today's Visit Information Type of service Follow-up Visit (Physician/CAP CUTTER ) Arrival Mode Ambulatory, Wheelchair Transfer Assistance Manual Transfer Assist (Other) x1 Patient Identification Verified (Name & Yes ) Patient Requires Transmission-Based No Precautions Vital Signs Temperature (97.8 F-99.1 F) 97.8 F Temperature Source Temporal Pulse Rate (60-100) 71 Pulse Location Monitor Respiratory Rate (12-18) 18 Respiratory rate source Observation Blood Pressure (90/60-120/80) 166/61 H Blood Pressure Mean (mm Hg) 96 Source Monitor History Since Last Visit- (Skip if this is Patient's initial visit) Have you changed medications since your No last visit? Any new allergies or adverse reactions No Had a fall/change in ADL's that may No increase risk of falls Signs or symptoms of abuse and/or No neglect since last visit Have you been in the hospital since your No last visit? Has dressing in place as prescribed Yes Has compression in place as prescribed N/A Has offloadiing in place as prescribed Yes Experienced any changes in pain level or No management Right Footwear Surgical Shoe with pressure relief insole Pain Scale: 0-10 Numeric Is Patient Pain Free? Yes - Nurse 1 - General Ulcer Measurement Start: 02/03/22 11:39 Freq: Status: Active Protocol: Activity Type Activity Date Activity User E-Sign Co-Sign Detail Recorded Client Recorded Date Recorded By Document 02/03/22 11:41 DL [id number] 02/03/22 11:55 DL 02/03/22 11:41 Wound Center Nurse 1 #5 left lateral stump -Current Size (cm) - Length 0.5 -Current Size (cm) - Width 1.1 -Current Size (cm) - Depth 1.1 -Total Square Cm 0.55 -Photo Taken No -Tunneling Position (O'clock) 7 -Tunneling Distance (cm) 1.4 -Exudate Amt Small -Exudate Type Serosanguineous -Wound Margin Distinct, Outline Attached -Granulation Amt Large (67-100%) -Granulation Quality Red -Necrosis Amt Small (1-33%) -Necrotic Tissue Type Adherent Slough -Structure Exposed N/A -Texture (Margy-wound Skin Appearance) Scarring -Moisture (Margy-wound Skin Appearance) Maceration -Color (Margy-wound Skin Appearance) No Abnormality -Temperature (Margy-wound Skin No Abnormality Appearance) (Pt Warm) -Tenderness on Palpation (Margy-wound No Skin Appearance) -Ulcer Cleansing Soap and Water -Foul Odor after Cleansing No -Anesthetic Used 4% Lidocaine Solution 3. R heel -Current Size (cm) - Length 1.6 -Current Size (cm) - Width 1.9 -Current Size (cm) - Depth 0.1 -Total Square Cm 3.04 -Photo Taken No -Exudate Amt Small -Exudate Type Serosanguineous -Wound Margin Distinct, Outline Attached -Granulation Amt None Present (0 %) -Necrosis Amt Large (67-100%) -Necrotic Tissue Type Adherent Slough -Structure Exposed N/A -Texture (Margy-wound Skin Appearance) Scarring -Moisture (Margy-wound Skin Appearance) Dry/Scaly -Color (Margy-wound Skin Appearance) No Abnormality -Temperature (Margy-wound Skin No Abnormality Appearance) (Pt Warm) -Tenderness on Palpation (Margy-wound No Skin Appearance) -Ulcer Cleansing Soap and Water -Foul Odor after Cleansing No -Anesthetic Used 4% Lidocaine Solution WC - Nurse 2 - General Ulcer CM Notes Start: 02/03/22 11:39 Freq: Status: Active Protocol: Activity Type Activity Date Activity User E-Sign Co-Sign Detail Recorded Client Recorded Date Recorded By Document 02/03/22 12:12 MW [id number] 02/03/22 12:39 MW 02/03/22 12:12 Wound Center Nurse 2 #5 left lateral stump -Time 12:13 -Correct Patient Yes -Correct Side, Site, Position Yes -Correct Procedure Yes -Procedure Performed Yes -Type of Procedure Debridement -Clinical Debridement Subcutaneous -Tissue Removed Subcutaneous -Post Debridement (cm) - Length 0.5 -Post Debridement (cm) - Width 1.0 -Post Debridement (cm) - Depth 1.0 -Total Square (Post) (cm) 0.50 -Area of Debridement (cm) - Length 0.5 -Area of Debridement (cm) - Width 1.0 -Total Square (Area) (cm) 0.50 -Tunneling No -Undermining/Tunneling Yes -Undermining/Tunneling Starts (O'clock 5 ) -Undermining/Tunneling Ends (O'clock) 7 -Maximum Distance (cm) 0.9 -Circular Undermining No -Wound/Ulcer Outcome Not Healed -Ulcer Cleansing Rinsed/ Irrigated with Saline -Foul Odor after Cleansing No -Bioengineered Tissue No -Bleeding Controlled with Pressure -Treatment Response Procedure Tolerated Well -Offloading No -Debridement - Subq, 1st 20sq cm Yes 3. R heel -Time 12:14 -Correct Patient Yes -Correct Side, Site, Position Yes -Correct Procedure Yes -Procedure Performed Yes -Type of Procedure Debridement -Clinical Debridement Subcutaneous -Tissue Removed Subcutaneous -Post Debridement (cm) - Length 1.4 -Post Debridement (cm) - Width 1.6 -Post Debridement (cm) - Depth 0.1 -Total Square (Post) (cm) 2.24 -Area of Debridement (cm) - Length 1.4 -Area of Debridement (cm) - Width 1.6 -Total Square (Area) (cm) 2.24 -Tunneling No -Undermining/Tunneling No -Circular Undermining No -Wound/Ulcer Outcome Not Healed -Ulcer Cleansing Rinsed/ Irrigated with Saline -Foul Odor after Cleansing No -Bioengineered Tissue Yes -Type of Bioengineered Tissue Epifix 18mm Disc -Expiration Date 11/30/26 -Product Lot Number [id number] -Percent Used 100 -Lot number of Saline Used [id number] -Bleeding Controlled with Pressure -Treatment Response Procedure Tolerated Well -Offloading No -Debridement - Subq, 1st 20sq cm No -Apply Skin Sub - 1st 25 sq cm - Feet 1 -Epifix 18mm Disc 3 Pain Scale: 0-10 Numeric Is Patient Pain Free? Yes WC - Nurse 3 - General Ulcer D/C NN Start: 02/03/22 11:39 Freq: Status: Active Protocol: Activity Type Activity Date Activity User E-Sign Co-Sign Detail Recorded Client Recorded Date Recorded By Document 02/03/22 12:55 DIONI [id number] 02/03/22 12:56 DIONI 02/03/22 12:55 Wound Care Nurse 3 #5 left lateral stump -Ulcer Cleansing Rinsed/ Irrigated with Saline -Foul Odor after Cleansing No -Negative Pressure Wound Therapy Start -Setting (mmHg) 125 -Negative Pressure is Continuous -NPWT Application Charge NPWT & Debridement (nc ) 3. R heel -Ulcer Cleansing Rinsed/ Irrigated with Saline -Foul Odor after Cleansing No -Other Dressing ABD-hat -Primary Dressing Covered/Secured with Dry Gauze & Roll Gauze, Secured with Tape Right -Tubular Bandage Single Layer -Size of Tubigrip Used Size D -Size D ($) 0 Left -Compression Wrap Demetrio Wrap Pain Scale: 0-10 Numeric Is Patient Pain Free? Yes WC - Visit Discharge Discharge Condition Stable Ambulatory Status Wheelchair Transportation Private Auto Accompanied by daughter Medication Reconcilliation completed & Yes provided to patient/care provider Clinical Summary of Care Provided Yes Additional Wound Wound debrided: Right heel Type of Debridement: Excisional debridement Anesthesia Used: 4% Lidocaine Solution Depth: Down to and including healthy tissue and in the subcutaneous layer Percentage of wound debrided: 100 Instrument Used: 5mm curette Tissue Removed: Slough and devitalized tissue Severity: Fat Layer Exposed Amount of bleeding with debridement: Mild Bleeding Controlled with: Pressure Patient tolerated procedure: Patient tolerated procedure well Assessment/Plan Assessment/Plan (1) Decubitus ulcer of right heel, stage 3: CODE(S): L89.613 - Pressure ulcer of right heel, stage 3 (2) Type 2 diabetes mellitus: CODE(S): E11.9 - Type 2 diabetes mellitus without complications (3) Ischemic colitis: CODE(S): K55.9 - Vascular disorder of intestine, unspecified (4) PAD (peripheral artery disease): CODE(S): I73.9 - Peripheral vascular disease, unspecified (5) Diabetic neuropathy: CODE(S): E11.40 - Type 2 diabetes mellitus with diabetic neuropathy, unspecified (6) Skin ulcer of finger with fat layer exposed: CODE(S): L98.492 - Non-pressure chronic ulcer of skin of other sites with fat layer exposed (7) Ulcer of amputation stump of foot: CODE(S): T87.89 - Other complications of amputation stump; L97.509 - Non-pressure chronic ulcer of other part of unspecified foot with unspecified severity PLAN: Debridement done to both ulcers as documented above, procedure was well-tolerated. Cultures and x-ray of left foot stump reviewed. Culture grew Streptococcus sensitive to penicillin however patient has penicillin allergy. Prescription for erythromycin to 250 mg every 6 hours for 1 week sent. Prescription for Fluconazole sent however, she was advised to start after completing Erythromycin. X-ray concerning for soft tissue infection no mention of possible osteomyelitis. However due to the possibility for osteomyelitis, MRI ordered. Also recommend that she follow-up with podiatry, may need a bone culture/biopsy. Initial application of snap VAC to left foot stump done today. 7th application of Epifix to right heel done today using 100% of product. Moistened with hydrogel, covered with adaptic touch and secured with Steri-Strips. Leave in place for a week. Optimal diabetes control and offloading strongly recommended. She states that her most recent A1C was at 7 and home reading have been over all stable. Increase protein intake, vitamin C and D discussed. She voiced understanding. Her questions were answered and she was advised to call with any further questions or concerns. This note was generated with [employer] dictation software. It may contain incorrect words, spelling, and punctuation that were not noted in checking the note before signing.
--- NOTE | 2022-02-04 15:30 | WC ---
Received a call from Yara Pharmacist at [facility]. Stated Erythromycin and fluconazole ordered per Dr. Barrera interact with each other and she needs approval to fill them. Spoke to Dr. Barrera. She stated for patient to take the Erythromycin first and start fluconazole after. Do not take them at the same time. [facility] notified to fill both medications but patient is to take one at a time. Spoke to patient, instructed on how to take medicine. Patient voiced understanding and stated she will only pharmacy picking tech the erythromycin now and she will pharmacy picking tech the fluconazole next week.
[2022-02-07 14:18] VITALS: TEMP 35.7
[2022-02-10 11:00] VITALS: BP 188/90; PULSE 66; RESP 16; TEMP 35.2
--- NOTE | 2022-02-10 13:51 | PCM.WC.PN ---
History of Present Illness Date of Service: 02/10/22 Chief Complaint: Right Foot/Heel ulcer History of Wound: Ms. Serra is a 66-year-old known to the wound center who was referred here by her base loader due to right heel ulcer. Noted about 3 weeks ago. Believes it may have happened following repeated rubbing of her heel on her bed. She has been applying Medihoney however no significant improvement. She believes her last A1c was 7.6. Currently on DB 7 which she states that she takes for diabetes. She states that her numbers have been well controlled until yesterday where she had a reading in the 200s. Follows up with her primary care physician in [place]. Regarding gout also, she denies any significant drainage, chills or feeling of unwell. She is also on budesonide prescribed by GI for ischemic colitis. Progress of Wound: Left stump with some improvement in depth. Has had 6 applications of epi fix so far to the right heel. Subjective Subjective This is a 67-year-old female who follows up to the wound care center today for a left transmetatarsal stump wound and a right plantar heel wound. She denies any constitutional symptoms today. She has no other complaints today. Objective Data Objective Data Vital Signs: Vital Signs Temp Pulse Resp BP 95.3 F L 66 16 188/90 H 02/10/22 11:00 02/10/22 11:00 02/10/22 11:00 02/10/22 11:00 Physical Exam Const alert and oriented x3 General Appearance: cooperative and comfortable HEENT normocephalic Eyes General Eye: normal appearance of both eyes Lymph Lymphatic: no lymphadenopathy noted and no lymphedema noted Resp normal respiratory effort Cardio regular rate and regular rhythm Extremity normal capillary refill, no calf tenderness and no pedal edema Extremity Narrative: Transmetatarsal amputation noted to the left foot Peripheral Pulses: Yes posterior tibial pulses present bilateral and dorsalis pedis pulses present right Skin no rashes or lesions noted, skin turgor normal and no jaundice Wound Narrative: Right plantar heel demonstrates mixed fiber granular tissue with some serosanguineous drainage. No localized signs of infection. Left transmetatarsal stump ulceration demonstrates periwound maceration secondary to serosanguineous drainage. Ulcerative bed is granular and healthy appearing. Surrounding skin is atrophic and healthy appearing. There are no localized signs of infection. Neuro oriented x3 and moves all extremities Motor Exam: strength 5/5 throughout Debridement Note Debridement Note Wound debrided: Left transmetatarsal stump ulceration Laterality: Left Wound Grade/Stage: Hernandez grade 1 Type of Debridement: Excisional debridement Anesthesia Used: 4% Lidocaine Solution Depth: Down to and including healthy tissue and in the subcutaneous layer Percentage of wound debrided: 100 Instrument Used: #15 blade and - (1 mm curette) Tissue Removed: Fibrous, devitalized subcutaneous, biofilm, slough Severity: Fat Layer Exposed Amount of bleeding with debridement: Mild Bleeding Controlled with: Compression and gauze Patient tolerated procedure: Patient tolerated procedure well Post-Debridement Measurements and Additional Note: Post-Debridement Measurements/Treatment - Nurse 1 - General Ulcer Assessment Start: 02/03/22 11:39 Freq: Status: Active Protocol: [place] Activity Type Activity Date Activity User E-Sign Co-Sign Detail Recorded Client Recorded Date Recorded By Document 02/03/22 11:41 DL [id number] 02/03/22 11:55 DL Document 02/07/22 14:18 AK [id number] 02/07/22 14:20 AK Document 02/10/22 11:00 ML [id number] 02/10/22 11:08 ML 02/03/22 02/07/22 02/10/22 11:41 14:18 11:00 - Today's Visit Information Type of service Follow-up Visit Nurse-only Follow-up Visit (Physician/FACULTY ADMINISTRATOR Visit (Physician/FACULTY ADMINISTRATOR ) ) Arrival Mode Ambulatory, Wheelchair Ambulatory Wheelchair Transfer Assistance Manual None Transfer Assist (Other) x1 Patient Identification Verified (Name & Yes Yes Yes ) Patient Requires Transmission-Based No No Precautions Safety Precautions NA Vital Signs Temperature (97.8 F-99.1 F) 97.8 F 96.3 F L 95.3 F L Temperature Source Temporal Temporal Temporal Pulse Rate (60-100) 71 66 Pulse Location Monitor Monitor Respiratory Rate (12-18) 18 16 Respiratory rate source Observation Observation Blood Pressure (90/60-120/80) 166/61 H 188/90 H Blood Pressure Mean (mm Hg) 96 122 Source Monitor Monitor Position Sitting Blood Pressure Location Left Arm History Since Last Visit- (Skip if this is Patient's initial visit) Have you changed medications since your No No No last visit? Any new allergies or adverse reactions No No No Had a fall/change in ADL's that may No No No increase risk of falls Signs or symptoms of abuse and/or No No No neglect since last visit Have you been in the hospital since your No No No last visit? Has dressing in place as prescribed Yes Yes Yes Has compression in place as prescribed N/A Yes Yes Has offloadiing in place as prescribed Yes N/A Yes Experienced any changes in pain level or No No No management Left Footwear No Footwear Right Footwear Surgical Shoe Regular Shoe Surgical Shoe with pressure with pressure relief insole relief insole Pain Scale: 0-10 Numeric Is Patient Pain Free? Yes Yes Yes WC - Nurse 1 - General Ulcer Measurement Start: 02/03/22 11:39 Freq: Status: Active Protocol: Activity Type Activity Date Activity User E-Sign Co-Sign Detail Recorded Client Recorded Date Recorded By Document 02/03/22 11:41 DL [id number] 02/03/22 11:55 DL Document 02/10/22 11:00 ML [id number] 02/10/22 11:08 ML 02/03/22 02/10/22 11:41 11:00 Wound Center Nurse 1 #5 left lateral stump -Current Size (cm) - Length 0.5 0.5 -Current Size (cm) - Width 1.1 1 -Current Size (cm) - Depth 1.1 0.8 -Total Square Cm 0.55 0.5 -Photo Taken No -Tunneling Position (O'clock) 7 -Tunneling Distance (cm) 1.4 -Exudate Amt Small Medium -Exudate Type Serosanguineous Serosanguineous -Wound Margin Distinct, Distinct, Outline Outline Attached Attached -Granulation Amt Large (67-100%) Medium (34-66%) -Granulation Quality Red -Slough/Fibrin Yes -Necrosis Amt Small (1-33%) -Necrotic Tissue Type Adherent Slough Adherent Slough -Structure Exposed N/A -Texture (Margy-wound Skin Appearance) Scarring Assessed -Moisture (Margy-wound Skin Appearance) Maceration Assessed, Maceration -Color (Margy-wound Skin Appearance) No Abnormality Assessed -Temperature (Margy-wound Skin No Abnormality Appearance) (Pt Warm) -Tenderness on Palpation (Margy-wound No No Skin Appearance) -Ulcer Cleansing Soap and Water Soap and Water -Foul Odor after Cleansing No No -Anesthetic Used 4% Lidocaine 5% Lidocaine Solution Gel 3. R heel -Current Size (cm) - Length 1.6 2 -Current Size (cm) - Width 1.9 1 -Current Size (cm) - Depth 0.1 0.1 -Total Square Cm 3.04 2 -Photo Taken No -Exudate Amt Small Medium -Exudate Type Serosanguineous Serosanguineous -Wound Margin Distinct, Distinct, Outline Outline Attached Attached -Granulation Amt None Present (0 Medium (34-66%) %) -Slough/Fibrin Yes -Necrosis Amt Large (67-100%) Medium (34-66%) -Necrotic Tissue Type Adherent Slough Adherent Slough -Structure Exposed N/A -Texture (Margy-wound Skin Appearance) Scarring Assessed -Moisture (Margy-wound Skin Appearance) Dry/Scaly Assessed -Color (Margy-wound Skin Appearance) No Abnormality Assessed -Temperature (Margy-wound Skin No Abnormality No Abnormality Appearance) (Pt Warm) (Pt Warm) -Tenderness on Palpation (Margy-wound No No Skin Appearance) -Ulcer Cleansing Soap and Water Rinsed/ Irrigated with Saline -Foul Odor after Cleansing No No -Anesthetic Used 4% Lidocaine 5% Lidocaine Solution Gel WC - Nurse 2 - General Ulcer CM Notes Start: 02/03/22 11:39 Freq: Status: Active Protocol: Activity Type Activity Date Activity User E-Sign Co-Sign Detail Recorded Client Recorded Date Recorded By Document 02/03/22 12:12 MW [id number] 02/03/22 12:39 MW 02/03/22 12:12 Wound Center Nurse 2 #5 left lateral stump -Time 12:13 -Correct Patient Yes -Correct Side, Site, Position Yes -Correct Procedure Yes -Procedure Performed Yes -Type of Procedure Debridement -Clinical Debridement Subcutaneous -Tissue Removed Subcutaneous -Post Debridement (cm) - Length 0.5 -Post Debridement (cm) - Width 1.0 -Post Debridement (cm) - Depth 1.0 -Total Square (Post) (cm) 0.50 -Area of Debridement (cm) - Length 0.5 -Area of Debridement (cm) - Width 1.0 -Total Square (Area) (cm) 0.50 -Tunneling No -Undermining/Tunneling Yes -Undermining/Tunneling Starts (O'clock 5 ) -Undermining/Tunneling Ends (O'clock) 7 -Maximum Distance (cm) 0.9 -Circular Undermining No -Wound/Ulcer Outcome Not Healed -Ulcer Cleansing Rinsed/ Irrigated with Saline -Foul Odor after Cleansing No -Bioengineered Tissue No -Bleeding Controlled with Pressure -Treatment Response Procedure Tolerated Well -Offloading No -Debridement - Subq, 1st 20sq cm Yes 3. R heel -Time 12:14 -Correct Patient Yes -Correct Side, Site, Position Yes -Correct Procedure Yes -Procedure Performed Yes -Type of Procedure Debridement -Clinical Debridement Subcutaneous -Tissue Removed Subcutaneous -Post Debridement (cm) - Length 1.4 -Post Debridement (cm) - Width 1.6 -Post Debridement (cm) - Depth 0.1 -Total Square (Post) (cm) 2.24 -Area of Debridement (cm) - Length 1.4 -Area of Debridement (cm) - Width 1.6 -Total Square (Area) (cm) 2.24 -Tunneling No -Undermining/Tunneling No -Circular Undermining No -Wound/Ulcer Outcome Not Healed -Ulcer Cleansing Rinsed/ Irrigated with Saline -Foul Odor after Cleansing No -Bioengineered Tissue Yes -Type of Bioengineered Tissue Epifix 18mm Disc -Expiration Date 11/30/26 -Product Lot Number [id number] -Percent Used 100 -Lot number of Saline Used [id number] -Bleeding Controlled with Pressure -Treatment Response Procedure Tolerated Well -Offloading No -Debridement - Subq, 1st 20sq cm No -Apply Skin Sub - 1st 25 sq cm - Feet 1 -Epifix 18mm Disc 3 Pain Scale: 0-10 Numeric Is Patient Pain Free? Yes WC - Nurse 3 - General Ulcer D/C NN Start: 02/03/22 11:39 Freq: Status: Active Protocol: Activity Type Activity Date Activity User E-Sign Co-Sign Detail Recorded Client Recorded Date Recorded By Document 02/03/22 12:55 JF [id number] 02/03/22 12:56 JF Document 02/07/22 14:18 AK [id number] 02/07/22 14:20 AK Edit Result 02/07/22 14:18 AK (1) [id number] 02/08/22 07:05 PL Document 02/10/22 12:45 AK [id number] 02/10/22 12:47 AK (1) 3. R heel - NPWT Application Charge NPWT </= 50 sq cm => (disp) ($) => 02/03/22 02/07/22 02/10/22 12:55 14:18 12:45 Wound Care Nurse 3 #5 left lateral stump -Ulcer Cleansing Rinsed/ Soap and Water Rinsed/ Irrigated with Irrigated with Saline Saline -Foul Odor after Cleansing No No No -Negative Pressure Wound Therapy Start N/A N/A -Setting (mmHg) 125 -Negative Pressure is Continuous -Primary Dressing Covered/Secured with Dry Gauze & Roll Gauze, Secured with Tape -NPWT Application Charge NPWT & NPWT </= 50 sq NPWT </= 50 sq Debridement (nc cm (disp) ($) cm (disp) ($) ) 3. R heel -Ulcer Cleansing Rinsed/ Rinsed/ Rinsed/ Irrigated with Irrigated with Irrigated with Saline Saline Saline -Foul Odor after Cleansing No No No -Negative Pressure Wound Therapy N/A N/A -Primary Dressing Applied Promogran Leighann Matter -Other Dressing ABD-hat nurses hat -Primary Dressing Covered/Secured with Dry Gauze & Dry Gauze & Roll Gauze, Roll Gauze, Secured with Secured with Tape Tape -Promogran Leighann Matter 1 Right -Tubular Bandage Single Layer -Size of Tubigrip Used Size D -Size D ($) 0 Left -Compression Wrap Demetrio Wrap Vital Signs Temperature (97.8 F-99.1 F) 96.3 F L Temperature Source Temporal Pain Scale: 0-10 Numeric Is Patient Pain Free? Yes Yes Yes WC - Visit Discharge Discharge Condition Stable Stable Stable Ambulatory Status Wheelchair Wheelchair Wheelchair Transportation Private Auto Accompanied by daughter Medication Reconcilliation completed & Yes Yes No provided to patient/care provider Clinical Summary of Care Provided Yes Yes No Additional Wound Wound debrided: Right plantar heel Laterality: Right Wound Grade/Stage: Hernandez stage I Type of Debridement: Excisional debridement Anesthesia Used: 4% Lidocaine Solution Depth: Down to and including healthy tissue and in the subcutaneous layer Percentage of wound debrided: 100 Instrument Used: #15 blade and - (1 mm curette) Tissue Removed: Fibrous, devitalized subcutaneous, biofilm, slough Severity: Fat Layer Exposed Amount of bleeding with debridement: Mild Bleeding Controlled with: Compression and gauze Patient tolerated procedure: Patient tolerated procedure well Assessment/Plan Assessment/Plan (1) Ulcer of amputation stump of foot: CODE(S): T87.89 - Other complications of amputation stump; L97.509 - Non-pressure chronic ulcer of other part of unspecified foot with unspecified severity (2) Decubitus ulcer of right heel, stage 3: CODE(S): L89.613 - Pressure ulcer of right heel, stage 3 (3) Type 2 diabetes mellitus: CODE(S): E11.9 - Type 2 diabetes mellitus without complications (4) Delayed wound healing: CODE(S): T14.8XXD - Other injury of unspecified body region, subsequent encounter (5) Non-pressure chronic ulcer of other part of left foot with fat layer exposed: CODE(S): L97.522 - Non-pressure chronic ulcer of other part of left foot with fat layer exposed (6) PAD (peripheral artery disease): CODE(S): I73.9 - Peripheral vascular disease, unspecified PLAN: This is a 67-year-old female with history of transmetatarsal amputation of the left foot with new open stump ulceration of the site and a right plantar heel ulceration, Hernandez grade 3. Patient is seen and evaluated I reviewed her cultures and x-rays of her left foot performed per Dr. Barrera. Culture grew Streptococcus sensitive to penicillin however patient has penicillin allergy. Patient was placed on erythromycin 250 mg every [address] Barrera. Patient is to undergo MRI of her left foot to evaluate for possible infection. Debridement done to both ulcers as documented above, procedure was well-tolerated. 8th application of epi fix to right heel performed today using 100% of the product. Site dressed with wound veil and anchored with Steri-Strips. She is to leave the dressing in place for 1 week. Left foot ulcerative site demonstrates no localized signs of infection. The surrounding tissues are healthy appearing and atrophic. Snap VAC applied to the left foot stump ulcerative site today. Optimal diabetes control and continued offloading strongly recommended. She states that her most recent A1C was at 7% and home readings have been over all stable. It is recommended she continue to increase protein intake to optimize healing, she is also supplementing vitamin C and D as discussed per Dr. Barrera. I discussed localized signs of infection for her to observe for. I discussed with her if she experiences any increased redness around the ulcerative site, any malodor from the ulcerative sites, or purulent drainage or if she experiences fever, nausea, or vomiting that these are signs of a progressing infection and she is to report to the ED. She voiced understanding of this. All of her questions were answered to her satisfaction. She was advised to call with any further questions or concerns. Note: [employer] speech recognition manager of compensation software was used to create portions of this document. Sound-alike and misspelled words, as well as other manager of compensation errors may be contained in the documentation.
[2022-02-17 11:04] VITALS: BP 137/81; PULSE 69; TEMP 36.1
--- NOTE | 2022-02-17 13:08 | PN.PCM_ITS ---
History of Present Illness Date of Service: 02/17/22 Chief Complaint: Right Foot/Heel ulcer History of Wound: Ms. 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 Noted about 3 weeks ago. Believes it may have happened following repeated rubbing of her heel on her bed. She has been applying Medihoney however no significant improvement. She believes her last A1c was 7.6. Currently on DB 7 which she states that she takes for diabetes. She states that her numbers have been well controlled until yesterday where she had a reading in the 200s. Follows up with her primary care physician in [place]. Regarding gout also, she denies any significant drainage, chills or feeling of unwell. She is also on budesonide prescribed by GI for ischemic colitis. Progress of Wound: Left stump with some improvement in depth. Has had 6 applications of epi fix so far to the right heel. Subjective Subjective This is a 67-year-old female who follows up to the wound care center today for a left transmetatarsal stump wound and a right plantar heel wound. She denies any constitutional symptoms today. She has no other complaints today. She also asked about a prescription for Alfredo supplementation. Objective Data Objective Data Vital Signs: Vital Signs Temp Pulse Resp BP 97.0 F L 69 16 137/81 H 02/17/22 11:04 02/17/22 11:04 02/10/22 11:00 02/17/22 11:04 Physical Exam Const alert and oriented x3 General Appearance: cooperative and comfortable HEENT normocephalic Eyes General Eye: normal appearance of both eyes Lymph Lymphatic: no lymphadenopathy noted and no lymphedema noted Resp normal respiratory effort Cardio regular rate and regular rhythm Extremity normal capillary refill, no calf tenderness and no pedal edema Extremity Narrative: Transmetatarsal amputation noted to the left foot Skin no rashes or lesions noted, skin turgor normal and no jaundice Wound Narrative: Right plantar heel demonstrates mixed fiber granular tissue with some serosanguineous drainage. No localized signs of infection. Left transmetatarsal stump ulceration demonstrates periwound maceration secondary to serosanguineous drainage. Ulcerative bed is granular and healthy appearing. Surrounding skin is atrophic and healthy appearing. There are no localized signs of infection. Neuro oriented x3 and moves all extremities Motor Exam: strength 5/5 throughout Debridement Note Debridement Note Wound debrided: Left metatarsal stump Laterality: Left Wound Grade/Stage: Hernandez stage I Type of Debridement: Excisional debridement Anesthesia Used: 4% Lidocaine Solution Depth: Down to and including healthy tissue and in the subcutaneous layer Percentage of wound debrided: 100 Instrument Used: 3mm curette Tissue Removed: Fibrous, devitalized subcutaneous, biofilm, slough Severity: Fat Layer Exposed Amount of bleeding with debridement: Mild Bleeding Controlled with: Compression and gauze Patient tolerated procedure: Patient tolerated procedure well Post-Debridement Measurements and Additional Note: Post-Debridement Measurements/Treatment - Nurse 1 - General Ulcer Assessment Start: 02/03/22 11:39 Freq: Status: Active Protocol: [place] Activity Type Activity Date Activity User E-Sign Co-Sign Detail Recorded Client Recorded Date Recorded By Document 02/03/22 11:41 DL [id number] 02/03/22 11:55 DL Document 02/07/22 14:18 AK [id number] 02/07/22 14:20 AK Document 02/10/22 11:00 ML [id number] 02/10/22 11:08 ML Document 02/17/22 11:04 KR [id number] 02/17/22 11:06 KR 02/03/22 02/07/22 02/10/22 11:41 14:18 11:00 - Today's Visit Information Type of service Follow-up Visit Nurse-only Follow-up Visit (Physician/PLANNING SUPERVISOR Visit (Physician/PLANNING SUPERVISOR ) ) Arrival Mode Ambulatory, Wheelchair Ambulatory Wheelchair Transfer Assistance Manual None Transfer Assist (Other) x1 Patient Identification Verified (Name & Yes Yes Yes ) Patient Requires Transmission-Based No No Precautions Safety Precautions NA Vital Signs Temperature (97.8 F-99.1 F) 97.8 F 96.3 F L 95.3 F L Temperature Source Temporal Temporal Temporal Pulse Rate (60-100) 71 66 Pulse Location Monitor Monitor Respiratory Rate (12-18) 18 16 Respiratory rate source Observation Observation Blood Pressure (90/60-120/80) 166/61 H 188/90 H Blood Pressure Mean (mm Hg) 96 122 Source Monitor Monitor Position Sitting Blood Pressure Location Left Arm History Since Last Visit- (Skip if this is Patient's initial visit) Have you changed medications since your No No No last visit? Any new allergies or adverse reactions No No No Had a fall/change in ADL's that may No No No increase risk of falls Signs or symptoms of abuse and/or No No No neglect since last visit Have you been in the hospital since your No No No last visit? Has dressing in place as prescribed Yes Yes Yes Has compression in place as prescribed N/A Yes Yes Has offloadiing in place as prescribed Yes N/A Yes Experienced any changes in pain level or No No No management Left Footwear No Footwear Right Footwear Surgical Shoe Regular Shoe Surgical Shoe with pressure with pressure relief insole relief insole Pain Scale: 0-10 Numeric Is Patient Pain Free? Yes Yes Yes 02/17/22 11:04 WC - Today's Visit Information Type of service Follow-up Visit (Physician/PLANNING SUPERVISOR ) Arrival Mode Wheelchair Transfer Assistance Transfer Assist (Other) Patient Identification Verified (Name & Yes ) Patient Requires Transmission-Based Precautions Safety Precautions Vital Signs Temperature (97.8 F-99.1 F) 97.0 F L Temperature Source Temporal Pulse Rate (60-100) 69 Pulse Location Monitor Respiratory Rate (12-18) Respiratory rate source Blood Pressure (90/60-120/80) 137/81 H Blood Pressure Mean (mm Hg) 99 Source Monitor Position Sitting Blood Pressure Location Left Arm History Since Last Visit- (Skip if this is Patient's initial visit) Have you changed medications since your No last visit? Any new allergies or adverse reactions No Had a fall/change in ADL's that may No increase risk of falls Signs or symptoms of abuse and/or No neglect since last visit Have you been in the hospital since your No last visit? Has dressing in place as prescribed Yes Has compression in place as prescribed Yes Has offloadiing in place as prescribed N/A Experienced any changes in pain level or No management Left Footwear Right Footwear Pain Scale: 0-10 Numeric Is Patient Pain Free? Yes - Nurse 1 - General Ulcer Measurement Start: 02/03/22 11:39 Freq: Status: Active Protocol: Activity Type Activity Date Activity User E-Sign Co-Sign Detail Recorded Client Recorded Date Recorded By Document 02/03/22 11:41 DL [id number] 02/03/22 11:55 DL Document 02/10/22 11:00 ML [id number] 02/10/22 11:08 ML Document 02/17/22 11:04 KR [id number] 02/17/22 11:06 KR 02/03/22 02/10/22 02/17/22 11:41 11:00 11:04 Wound Center Nurse 1 #5 left lateral stump -Current Size (cm) - Length 0.5 0.5 0.2 -Current Size (cm) - Width 1.1 1 0.3 -Current Size (cm) - Depth 1.1 0.8 0.1 -Total Square Cm 0.55 0.5 0.06 -Photo Taken No -Tunneling Position (O'clock) 7 -Tunneling Distance (cm) 1.4 -Exudate Amt Small Medium Small -Exudate Type Serosanguineous Serosanguineous Serosanguineous -Wound Margin Distinct, Distinct, Distinct, Outline Outline Outline Attached Attached Attached -Granulation Amt Large (67-100%) Medium (34-66%) Small (1-33%) -Granulation Quality [place] -Slough/Fibrin Yes -Necrosis Amt Small (1-33%) Small (1-33%) -Necrotic Tissue Type Adherent Slough Adherent Slough Adherent Slough -Structure Exposed N/A -Texture (Margy-wound Skin Appearance) Scarring Assessed Assessed, Scarring -Moisture (Margy-wound Skin Appearance) Maceration Assessed, No Abnormality, Maceration Assessed -Color (Margy-wound Skin Appearance) No Abnormality Assessed No Abnormality, Assessed -Temperature (Margy-wound Skin No Abnormality No Abnormality Appearance) (Pt Warm) (Pt Warm) -Tenderness on Palpation (Margy-wound No No No Skin Appearance) -Ulcer Cleansing Soap and Water Soap and Water Rinsed/ Irrigated with Saline -Foul Odor after Cleansing No No No -Anesthetic Used 4% Lidocaine 5% Lidocaine 5% Lidocaine Solution Gel Gel 3. R heel -Current Size (cm) - Length 1.6 2 1 -Current Size (cm) - Width 1.9 1 1.4 -Current Size (cm) - Depth 0.1 0.1 0.3 -Total Square Cm 3.04 2 1.4 -Photo Taken No -Exudate Amt Small Medium Small -Exudate Type Serosanguineous Serosanguineous Serosanguineous -Wound Margin Distinct, Distinct, Distinct, Outline Outline Outline Attached Attached Attached -Granulation Amt None Present (0 Medium (34-66%) Small (1-33%) %) -Granulation Quality Red -Slough/Fibrin Yes -Necrosis Amt Large (67-100%) Medium (34-66%) Small (1-33%) -Necrotic Tissue Type Adherent Slough Adherent Slough Adherent Slough -Structure Exposed N/A -Texture (Margy-wound Skin Appearance) Scarring Assessed Assessed, Scarring -Moisture (Margy-wound Skin Appearance) Dry/Scaly Assessed No Abnormality, Assessed -Color (Margy-wound Skin Appearance) No Abnormality Assessed No Abnormality, Assessed -Temperature (Margy-wound Skin No Abnormality No Abnormality No Abnormality Appearance) (Pt Warm) (Pt Warm) (Pt Warm) -Tenderness on Palpation (Margy-wound No No Skin Appearance) -Ulcer Cleansing Soap and Water Rinsed/ Rinsed/ Irrigated with Irrigated with Saline Saline -Foul Odor after Cleansing No No No -Anesthetic Used 4% Lidocaine 5% Lidocaine 5% Lidocaine Solution Gel Gel WC - Nurse 2 - General Ulcer CM Notes Start: 02/03/22 11:39 Freq: Status: Active Protocol: Activity Type Activity Date Activity User E-Sign Co-Sign Detail Recorded Client Recorded Date Recorded By Document 02/03/22 12:12 MW [id number] 02/03/22 12:39 MW Document 02/10/22 14:48 PL [id number] 02/10/22 14:51 PL Edit Result 02/10/22 14:48 PL (1) [id number] 02/11/22 06:58 PL (1) #5 left lateral stump - Debridement - Subq, 1st 20sq cm No => Yes 02/03/22 02/10/22 12:12 14:48 Wound Center Nurse 2 #5 left lateral stump -Time 12:13 11:20 -Correct Patient Yes Yes -Correct Side, Site, Position Yes Yes -Correct Procedure Yes Yes -Procedure Performed Yes Yes -Type of Procedure Debridement Debridement -Clinical Debridement Subcutaneous Subcutaneous -Tissue Removed Subcutaneous Subcutaneous -Post Debridement (cm) - Length 0.5 0.5 -Post Debridement (cm) - Width 1.0 1.0 -Post Debridement (cm) - Depth 1.0 0.8 -Total Square (Post) (cm) 0.50 0.50 -Area of Debridement (cm) - Length 0.5 0.5 -Area of Debridement (cm) - Width 1.0 1.0 -Total Square (Area) (cm) 0.50 0.50 -Tunneling No No -Undermining/Tunneling Yes No -Undermining/Tunneling Starts (O'clock 5 ) -Undermining/Tunneling Ends (O'clock) 7 -Maximum Distance (cm) 0.9 -Circular Undermining No No -Wound/Ulcer Outcome Not Healed Not Healed -Ulcer Cleansing Rinsed/ Rinsed/ Irrigated with Irrigated with Saline Saline -Foul Odor after Cleansing No No -Bioengineered Tissue No No -Bleeding Controlled with Pressure Pressure -Treatment Response Procedure Procedure Tolerated Well Tolerated Well -Offloading No -Debridement - Subq, 1st 20sq cm Yes Yes 3. R heel -Time 12:14 11:20 -Correct Patient Yes Yes -Correct Side, Site, Position Yes Yes -Correct Procedure Yes Yes -Procedure Performed Yes Yes -Type of Procedure Debridement Debridement -Clinical Debridement Subcutaneous Subcutaneous -Tissue Removed Subcutaneous Subcutaneous -Post Debridement (cm) - Length 1.4 2.0 -Post Debridement (cm) - Width 1.6 1.0 -Post Debridement (cm) - Depth 0.1 0.1 -Total Square (Post) (cm) 2.24 2.00 -Area of Debridement (cm) - Length 1.4 2.0 -Area of Debridement (cm) - Width 1.6 1 -Total Square (Area) (cm) 2.24 2.0 -Tunneling No No -Undermining/Tunneling No No -Circular Undermining No No -Wound/Ulcer Outcome Not Healed Not Healed -Ulcer Cleansing Rinsed/ Rinsed/ Irrigated with Irrigated with Saline Saline -Foul Odor after Cleansing No No -Bioengineered Tissue Yes Yes -Type of Bioengineered Tissue Epifix 18mm Epifix 18mm Disc Disc -Expiration Date 11/30/26 11/30/26 -Product Lot Number [id number] -Percent Used 100 100 -Lot number of Saline Used [id number] -Bleeding Controlled with Pressure Pressure -Treatment Response Procedure Procedure Tolerated Well Tolerated Well -Offloading No No -Debridement - Subq, 1st 20sq cm No No -Apply Skin Sub - 1st 25 sq cm - Feet 1 1 -Epifix 18mm Disc 3 3 Pain Scale: 0-10 Numeric Is Patient Pain Free? Yes Yes WC - Nurse 3 - General Ulcer D/C NN Start: 02/03/22 11:39 Freq: Status: Active Protocol: Activity Type Activity Date Activity User E-Sign Co-Sign Detail Recorded Client Recorded Date Recorded By Document 02/03/22 12:55 JF [id number] 02/03/22 12:56 JF Document 02/07/22 14:18 AK [id number] 02/07/22 14:20 AK Edit Result 02/07/22 14:18 AK (1) [id number] 02/08/22 07:05 PL Document 02/10/22 12:45 AK [id number] 02/10/22 12:47 AK Edit Result 02/10/22 12:45 AK (2) [id number] 02/11/22 06:58 PL Document 02/17/22 11:40 AK [id number] 02/17/22 11:55 AK (1) 3. R heel - NPWT Application Charge NPWT </= 50 sq cm => (disp) ($) => (2) #5 left lateral stump - NPWT Application Charge NPWT </= 50 sq cm => NPWT & Debridement (disp) ($) => (nc) 02/03/22 02/07/22 02/10/22 12:55 14:18 12:45 Wound Care Nurse 3 #5 left lateral stump -Ulcer Cleansing Rinsed/ Soap and Water Rinsed/ Irrigated with Irrigated with Saline Saline -Foul Odor after Cleansing No No No -Negative Pressure Wound Therapy Start N/A N/A -Setting (mmHg) 125 -Negative Pressure is Continuous -Primary Dressing Covered/Secured with Dry Gauze & Roll Gauze, Secured with Tape -NPWT Application Charge NPWT & NPWT </= 50 sq NPWT & Debridement (nc cm (disp) ($) Debridement (nc ) ) 3. R heel -Ulcer Cleansing Rinsed/ Rinsed/ Rinsed/ Irrigated with Irrigated with Irrigated with Saline Saline Saline -Foul Odor after Cleansing No No No -Negative Pressure Wound Therapy N/A N/A -Primary Dressing Applied Promogran Leighann Matter -Other Dressing ABD-hat nurses hat -Primary Dressing Covered/Secured with Dry Gauze & Dry Gauze & Roll Gauze, Roll Gauze, Secured with Secured with Tape Tape -Promogran Leighann Matter 1 Right -Tubular Bandage Single Layer -Size of Tubigrip Used Size D -Size D ($) 0 -Size E ($) Left -Compression Wrap Demetrio Wrap -Tubular Bandage -Size of Tubigrip Used -Size E ($) Vital Signs Temperature (97.8 F-99.1 F) 96.3 F L Temperature Source Temporal Pain Scale: 0-10 Numeric Is Patient Pain Free? Yes Yes Yes WC - Visit Discharge Discharge Condition Stable Stable Stable Ambulatory Status Wheelchair Wheelchair Wheelchair Transportation Private Auto Accompanied by daughter Medication Reconcilliation completed & Yes Yes No provided to patient/care provider Clinical Summary of Care Provided Yes Yes No 02/17/22 11:40 Wound Care Nurse 3 #5 left lateral stump -Ulcer Cleansing Rinsed/ Irrigated with Saline -Foul Odor after Cleansing No -Negative Pressure Wound Therapy Continue -Setting (mmHg) -Negative Pressure is -Primary Dressing Covered/Secured with -NPWT Application Charge NPWT </= 50 sq cm (disp) ($) 3. R heel -Ulcer Cleansing Rinsed/ Irrigated with Saline -Foul Odor after Cleansing -Negative Pressure Wound Therapy -Primary Dressing Applied -Other Dressing abd -Primary Dressing Covered/Secured with Dry Gauze & Roll Gauze, Secured with Tape -Promogran Leighann Matter Right -Tubular Bandage Double Layer -Size of Tubigrip Used Size E -Size D ($) -Size E ($) 2 Left -Compression Wrap -Tubular Bandage Double Layer -Size of Tubigrip Used Size E -Size E ($) 2 Vital Signs Temperature (97.8 F-99.1 F) Temperature Source Pain Scale: 0-10 Numeric Is Patient Pain Free? Yes WC - Visit Discharge Discharge Condition Ambulatory Status Transportation Accompanied by Medication Reconcilliation completed & provided to patient/care provider Clinical Summary of Care Provided Additional Wound Wound debrided: Right plantar heel Laterality: Right Wound Grade/Stage: Hernandez stage I Type of Debridement: Excisional debridement Anesthesia Used: 4% Lidocaine Solution Depth: Down to and including healthy tissue and in the subcutaneous layer Percentage of wound debrided: 100 Instrument Used: 3mm curette Tissue Removed: Fibrous, devitalized subcutaneous, biofilm, slough Severity: Fat Layer Exposed Amount of bleeding with debridement: Mild Bleeding Controlled with: Compression and gauze Patient tolerated procedure: Patient tolerated procedure well Assessment/Plan Assessment/Plan (1) Ulcer of amputation stump of foot: CODE(S): T87.89 - Other complications of amputation stump; L97.509 - Non- pressure chronic ulcer of other part of unspecified foot with unspecified severity (2) Decubitus ulcer of right heel, stage 3: CODE(S): L89.613 - Pressure ulcer of right heel, stage 3 (3) Type 2 diabetes mellitus: CODE(S): E11.9 - Type 2 diabetes mellitus without complications (4) Delayed wound healing: CODE(S): T14.8XXD - Other injury of unspecified body region, subsequent encounter (5) Non-pressure chronic ulcer of other part of left foot with fat layer exposed: CODE(S): L97.522 - Non-pressure chronic ulcer of other part of left foot with fat layer exposed (6) PAD (peripheral artery disease): CODE(S): I73.9 - Peripheral vascular disease, unspecified PLAN: This is a 67-year-old female with history of transmetatarsal amputation of the left foot with new open stump ulceration of the site and a right plantar heel ulceration, Hernandez grade 3. Patient is seen and evaluated I reviewed her cultures and x-rays of her left foot performed per Dr. Barrera. Culture grew Streptococcus sensitive to penicillin however patient has p enicillin allergy. Patient was placed on erythromycin 250 mg every [address] Barrera. Patient underwent MRI of her left foot to evaluate for possible infection. I reviewed her MRI which was negative for osteomyelitis or gas in the tissues. Debridement done to both ulcers as documented above, procedure was well- tolerated. 9th application of epi fix to right heel performed today using 100% of the product. Site dressed with wound veil and anchored with Steri-Strips. She is to leave the dressing in place for 1 week. She is instructed to not get the dressing to the right heel wet. Left foot ulcerative site demonstrates no localized signs of infection. The surrounding tissues are healthy appearing and atrophic. Snap VAC applied to the left foot stump ulcerative site today. Given that there is no localized signs of infection and MRI was negative for osteomyelitis I am considering pursuing a closure of this wound site at next visit. Optimal diabetes control and continued offloading strongly recommended. She states that her most recent A1C was at 7% and home readings have been over all stable. It is recommended she continue to increase protein intake to optimize healing, she is also supplementing vitamin C and D as discussed per Dr. Barrera. Rx for Alfredo collagen protein supplementation was performed through the office on 02/16/2022. I discussed localized signs of infection for her to observe for. I discussed with her if she experiences any increased redness around the ulcerative site, any malodor from the ulcerative sites, or purulent drainage or if she experienc es fever, nausea, or vomiting that these are signs of a progressing infection and she is to report to the ED. She voiced understanding of this. All of her questions were answered to her satisfaction. She was advised to call with any further questions or concerns. Note: [employer] speech recognition program host software was used to create portions of this document. Sound-alike and misspelled words, as well as other program host errors may be contained in the documentation.
[2022-02-24 10:59] VITALS: BP 126/66; PULSE 70; RESP 16; TEMP 36.2
--- NOTE | 2022-02-24 12:06 | PN.PCM_ITS ---
History of Present Illness Date of Service: 02/24/22 Chief Complaint: Right Foot/Heel ulcer History of Wound: Ms. Serra is a 66-year-old known to the wound center who was referred here by her fixer supervisor due to right heel ulcer. Noted about 3 weeks ago. Believes it may have happened following repeated rubbing of her heel on her bed. She has been applying Medihoney however no significant improvement. She believes her last A1c was 7.6. Currently on DB 7 which she states that she takes for diabetes. She states that her numbers have been well controlled until yesterday where she had a reading in the 200s. Follows up with her primary care physician in [place]. Regarding gout also, she denies any significant drainage, chills or feeling of unwell. She is also on budesonide prescribed by GI for ischemic colitis. Progress of Wound: Left stump with some improvement in depth. Has had 9 applications of epi fix so far to the right heel. Subjective Subjective This is a 67-year-old female who follows up to the wound care center today for a left transmetatarsal stump wound and a right plantar heel wound. She denies any constitutional symptoms today. She has no other complaints today. She states she has been taking Alfredo supplementation which she feels is helping with her healing progress. Objective Data Objective Data Vital Signs: Vital Signs Temp Pulse Resp BP 97.2 F L 70 16 126/66 H 02/24/22 10:59 02/24/22 10:59 02/24/22 10:59 02/24/22 10:59 Physical Exam Const alert and oriented x3 General Appearance: cooperative and comfortable HEENT normocephalic Eyes General Eye: normal appearance of both eyes Lymph Lymphatic: no lymphadenopathy noted and no lymphedema noted Resp normal respiratory effort Cardio regular rate and regular rhythm Extremity normal capillary refill, no calf tenderness and no pedal edema Extremity Narrative: Transmetatarsal amputation noted to the left foot Skin no rashes or lesions noted, skin turgor normal and no jaundice Wound Narrative: Right plantar heel demonstrates mixed fiber granular tissue with some serosanguineous drainage. No localized signs of infection. Left transmetatarsal stump ulceration demonstrates periwound maceration secondary to serosanguineous drainage. Ulcerative bed is granular and healthy appearing. Surrounding skin is atrophic and healthy appearing. There are no localized signs of infection. Neuro oriented x3 and moves all extremities Motor Exam: strength 5/5 throughout Debridement Note Debridement Note Wound debrided: Left transmetatarsal amputation stump Laterality: Left Wound Grade/Stage: Hernandez stage I Type of Debridement: Excisional debridement Anesthesia Used: 4% Lidocaine Solution Depth: Down to and including healthy tissue and in the subcutaneous layer Percentage of wound debrided: 100 Instrument Used: 3mm curette and #15 blade Tissue Removed: Fibrous, devitalized subcutaneous, biofilm, slough Severity: Fat Layer Exposed Amount of bleeding with debridement: Mild Bleeding Controlled with: Compression and gauze Patient tolerated procedure: Patient tolerated procedure well Post-Debridement Measurements and Additional Note: Post-Debridement Measurements/Treatment - Nurse 1 - General Ulcer Assessment Start: 02/03/22 11:39 Freq: Status: Active Protocol: [place] Activity Type Activity Date Activity User E-Sign Co-Sign Detail Recorded Client Recorded Date Recorded By Document 02/03/22 11:41 DL [id number] 02/03/22 11:55 DL Document 02/07/22 14:18 AK [id number] 02/07/22 14:20 AK Document 02/10/22 11:00 ML [id number] 02/10/22 11:08 ML Document 02/17/22 11:04 KR [id number] 02/17/22 11:06 KR Document 02/24/22 10:59 JF [id number] 02/24/22 11:12 JF 02/03/22 02/07/22 02/10/22 11:41 14:18 11:00 - Today's Visit Information Type of service Follow-up Visit Nurse-only Follow-up Visit (Physician/CABINET AND TRIM INSTALLER Visit (Physician/CABINET AND TRIM INSTALLER ) ) Arrival Mode Ambulatory, Wheelchair Ambulatory Wheelchair Transfer Assistance Manual None Transfer Assist (Other) x1 Patient Identification Verified (Name & Yes Yes Yes ) Patient Requires Transmission-Based No No Precautions Safety Precautions NA Finger Stick Blood Sugar(mg/dl) (if indicated): Blood Sugar Vital Signs Temperature (97.8 F-99.1 F) 97.8 F 96.3 F L 95.3 F L Temperature Source Temporal Temporal Temporal Pulse Rate (60-100) 71 66 Pulse Location Monitor Monitor Respiratory Rate (12-18) 18 16 Respiratory rate source Observation Observation Blood Pressure (90/60-120/80) 166/61 H 188/90 H Blood Pressure Mean (mm Hg) 96 122 Source Monitor Monitor Position Sitting Blood Pressure Location Left Arm History Since Last Visit- (Skip if this is Patient's initial visit) Have you changed medications since your No No No last visit? Any new allergies or adverse reactions No No No Had a fall/change in ADL's that may No No No increase risk of falls Signs or symptoms of abuse and/or No No No neglect since last visit Have you been in the hospital since your No No No last visit? Has dressing in place as prescribed Yes Yes Yes Has compression in place as prescribed N/A Yes Yes Has offloadiing in place as prescribed Yes N/A Yes Experienced any changes in pain level or No No No management Left Footwear No Footwear Right Footwear Surgical Shoe Regular Shoe Surgical Shoe with pressure with pressure relief insole relief insole Pain Scale: 0-10 Numeric Is Patient Pain Free? Yes Yes Yes 02/17/22 02/24/22 11:04 10:59 WC - Today's Visit Information Type of service Follow-up Visit Follow-up Visit (Physician/CABINET AND TRIM INSTALLER (Physician/CABINET AND TRIM INSTALLER ) ) Arrival Mode Wheelchair Stretcher Transfer Assistance Manual Transfer Assist (Other) Patient Identification Verified (Name & Yes Yes ) Patient Requires Transmission-Based No Precautions Safety Precautions Finger Stick Blood Sugar(mg/dl) (if 224 indicated): Blood Sugar Stated by Patient Vital Signs Temperature (97.8 F-99.1 F) 97.0 F L 97.2 F L Temperature Source Temporal Temporal Pulse Rate (60-100) 69 70 Pulse Location Monitor Monitor Respiratory Rate (12-18) 16 Respiratory rate source Observation Blood Pressure (90/60-120/80) 137/81 H 126/66 H Blood Pressure Mean (mm Hg) 99 86 Source Monitor Monitor Position Sitting Sitting Blood Pressure Location Left Arm Left Arm History Since Last Visit- (Skip if this is Patient's initial visit) Have you changed medications since your No No last visit? Any new allergies or adverse reactions No No Had a fall/change in ADL's that may No No increase risk of falls Signs or symptoms of abuse and/or No No neglect since last visit Have you been in the hospital since your No No last visit? Has dressing in place as prescribed Yes Yes Has compression in place as prescribed Yes Yes Has offloadiing in place as prescribed N/A Yes Experienced any changes in pain level or No No management Left Footwear No Footwear Right Footwear Surgical Shoe with pressure relief insole Pain Scale: 0-10 Numeric Is Patient Pain Free? Yes Yes WC - Nurse 1 - General Ulcer Measurement Start: 02/03/22 11:39 Freq: Status: Active Protocol: Activity Type Activity Date Activity User E-Sign Co-Sign Detail Recorded Client Recorded Date Recorded By Document 02/03/22 11:41 DL [id number] 02/03/22 11:55 DL Document 02/10/22 11:00 ML [id number] 02/10/22 11:08 ML Document 02/17/22 11:04 KR [id number] 02/17/22 11:06 KR Document 02/24/22 10:59 JF [id number] 02/24/22 11:12 JF 02/03/22 02/10/22 02/17/22 11:41 11:00 11:04 Wound Center Nurse 1 #5 left lateral stump -Combined with other wound -Current Size (cm) - Length 0.5 0.5 0.2 -Current Size (cm) - Width 1.1 1 0.3 -Current Size (cm) - Depth 1.1 0.8 0.1 -Total Square Cm 0.55 0.5 0.06 -Photo Taken No -Epithelialization -Tunneling -Tunneling Position (O'clock) 7 -Tunneling Distance (cm) 1.4 -Undermining/Tunneling -Circular Undermining -Exudate Amt Small Medium Small -Exudate Type Serosanguineous Serosanguineous Serosanguineous -Wound Margin Distinct, Distinct, Distinct, Outline Outline Outline Attached Attached Attached -Granulation Amt Large (67-100%) Medium (34-66%) Small (1-33%) -Granulation Quality Red [place] -Slough/Fibrin Yes -Necrosis Amt Small (1-33%) Small (1-33%) -Necrotic Tissue Type Adherent Slough Adherent Slough Adherent Slough -Structure Exposed N/A -Texture (Margy-wound Skin Appearance) Scarring Assessed Assessed, Scarring -Moisture (Margy-wound Skin Appearance) Maceration Assessed, No Abnormality, Maceration Assessed -Color (Margy-wound Skin Appearance) No Abnormality Assessed No Abnormality, Assessed -Temperature (Margy-wound Skin No Abnormality No Abnormality Appearance) (Pt Warm) (Pt Warm) -Tenderness on Palpation (Margy-wound No No No Skin Appearance) -Ulcer Cleansing Soap and Water Soap and Water Rinsed/ Irrigated with Saline -Foul Odor after Cleansing No No No -Anesthetic Used 4% Lidocaine 5% Lidocaine 5% Lidocaine Solution Gel Gel 3. R heel -Combined with other wound -Current Size (cm) - Length 1.6 2 1 -Current Size (cm) - Width 1.9 1 1.4 -Current Size (cm) - Depth 0.1 0.1 0.3 -Total Square Cm 3.04 2 1.4 -Photo Taken No -Epithelialization -Tunneling -Undermining/Tunneling -Circular Undermining -Exudate Amt Small Medium Small -Exudate Type Serosanguineous Serosanguineous Serosanguineous -Wound Margin Distinct, Distinct, Distinct, Outline Outline Outline Attached Attached Attached -Granulation Amt None Present (0 Medium (34-66%) Small (1-33%) %) -Granulation Quality Red -Slough/Fibrin Yes -Necrosis Amt Large (67-100%) Medium (34-66%) Small (1-33%) -Necrotic Tissue Type Adherent Slough Adherent Slough Adherent Slough -Structure Exposed N/A -Texture (Margy-wound Skin Appearance) Scarring Assessed Assessed, Scarring -Moisture (Margy-wound Skin Appearance) Dry/Scaly Assessed No Abnormality, Assessed -Color (Margy-wound Skin Appearance) No Abnormality Assessed No Abnormality, Assessed -Temperature (Margy-wound Skin No Abnormality No Abnormality No Abnormality Appearance) (Pt Warm) (Pt Warm) (Pt Warm) -Tenderness on Palpation (Margy-wound No No Skin Appearance) -Ulcer Cleansing Soap and Water Rinsed/ Rinsed/ Irrigated with Irrigated with Saline Saline -Foul Odor after Cleansing No No No -Anesthetic Used 4% Lidocaine 5% Lidocaine 5% Lidocaine Solution Gel Gel 02/24/22 10:59 Wound Center Nurse 1 #5 left lateral stump -Combined with other wound No -Current Size (cm) - Length 0.1 -Current Size (cm) - Width 0.8 -Current Size (cm) - Depth 0.8 -Total Square Cm 0.08 -Photo Taken No -Epithelialization Small 1-33% -Tunneling No -Tunneling Position (O'clock) -Tunneling Distance (cm) -Undermining/Tunneling No -Circular Undermining No -Exudate Amt Small -Exudate Type Serosanguineous -Wound Margin Indistinct, Non -Visible -Granulation Amt Medium (34-66%) -Granulation Quality Red -Slough/Fibrin Yes -Necrosis Amt Small (1-33%) -Necrotic Tissue Type Adherent Slough -Structure Exposed N/A -Texture (Margy-wound Skin Appearance) Assessed -Moisture (Margy-wound Skin Appearance) Assessed, Maceration -Color (Margy-wound Skin Appearance) Assessed -Temperature (Margy-wound Skin No Abnormality Appearance) (Pt Warm) -Tenderness on Palpation (Margy-wound Yes Skin Appearance) -Ulcer Cleansing Wound Cleanser -Foul Odor after Cleansing No -Anesthetic Used 5% Lidocaine Gel 3. R heel -Combined with other wound No -Current Size (cm) - Length 0.8 -Current Size (cm) - Width 0.8 -Current Size (cm) - Depth 0.2 -Total Square Cm 0.64 -Photo Taken No -Epithelialization Small 1-33% -Tunneling No -Undermining/Tunneling No -Circular Undermining No -Exudate Amt Small -Exudate Type Serosanguineous -Wound Margin Flat & Intact -Granulation Amt Medium (34-66%) -Granulation Quality Red -Slough/Fibrin Yes -Necrosis Amt Small (1-33%) -Necrotic Tissue Type Adherent Slough -Structure Exposed N/A -Texture (Margy-wound Skin Appearance) Assessed,Callus -Moisture (Margy-wound Skin Appearance) No Abnormality, Dry/Scaly -Color (Margy-wound Skin Appearance) Assessed -Temperature (Margy-wound Skin No Abnormality Appearance) (Pt Warm) -Tenderness on Palpation (Margy-wound No Skin Appearance) -Ulcer Cleansing Wound Cleanser -Foul Odor after Cleansing No -Anesthetic Used 5% Lidocaine Gel WC - Nurse 2 - General Ulcer CM Notes Start: 02/03/22 11:39 Freq: Status: Active Protocol: Activity Type Activity Date Activity User E-Sign Co-Sign Detail Recorded Client Recorded Date Recorded By Document 02/03/22 12:12 MW [id number] 04/07/22 12:39 MW Document 02/10/22 14:48 PL [id number] 02/10/22 14:51 PL Edit Result 02/10/22 14:48 PL (1) [id number] 02/11/22 06:58 PL Document 02/17/22 13:30 PL [id number] 02/17/22 13:34 PL (1) #5 left lateral stump - Debridement - Subq, 1st 20sq cm No => Yes 02/03/22 02/10/22 02/17/22 12:12 14:48 13:30 Wound Center Nurse 2 #5 left lateral stump -Time 12:13 11:20 11:13 -Correct Patient Yes Yes Yes -Correct Side, Site, Position Yes Yes Yes -Correct Procedure Yes Yes Yes -Procedure Performed Yes Yes Yes -Type of Procedure Debridement Debridement Debridement -Clinical Debridement Subcutaneous Subcutaneous Subcutaneous -Tissue Removed Subcutaneous Subcutaneous Subcutaneous -Post Debridement (cm) - Length 0.5 0.5 0.2 -Post Debridement (cm) - Width 1.0 1.0 0.3 -Post Debridement (cm) - Depth 1.0 0.8 0.1 -Total Square (Post) (cm) 0.50 0.50 0.06 -Area of Debridement (cm) - Length 0.5 0.5 0.2 -Area of Debridement (cm) - Width 1.0 1.0 0.3 -Total Square (Area) (cm) 0.50 0.50 0.06 -Tunneling No No No -Undermining/Tunneling Yes No No -Undermining/Tunneling Starts (O'clock 5 ) -Undermining/Tunneling Ends (O'clock) 7 -Maximum Distance (cm) 0.9 -Circular Undermining No No No -Wound/Ulcer Outcome Not Healed Not Healed Not Healed -Ulcer Cleansing Rinsed/ Rinsed/ Rinsed/ Irrigated with Irrigated with Irrigated with Saline Saline Saline -Foul Odor after Cleansing No No No -Bioengineered Tissue No No No -Bleeding Controlled with Pressure Pressure Pressure -Treatment Response Procedure Procedure Procedure Tolerated Well Tolerated Well Tolerated Well -Offloading No -Debridement - Subq, 1st 20sq cm Yes Yes Yes 3. R heel -Time 12:14 11:20 11:13 -Correct Patient Yes Yes Yes -Correct Side, Site, Position Yes Yes Yes -Correct Procedure Yes Yes Yes -Procedure Performed Yes Yes Yes -Type of Procedure Debridement Debridement Debridement -Clinical Debridement Subcutaneous Subcutaneous Subcutaneous -Tissue Removed Subcutaneous Subcutaneous Subcutaneous -Post Debridement (cm) - Length 1.4 2.0 1.0 -Post Debridement (cm) - Width 1.6 1.0 1.4 -Post Debridement (cm) - Depth 0.1 0.1 0.3 -Total Square (Post) (cm) 2.24 2.00 1.40 -Area of Debridement (cm) - Length 1.4 2.0 1.0 -Area of Debridement (cm) - Width 1.6 1 1.4 -Total Square (Area) (cm) 2.24 2.0 1.40 -Tunneling No No No -Undermining/Tunneling No No No -Circular Undermining No No No -Wound/Ulcer Outcome Not Healed Not Healed Not Healed -Ulcer Cleansing Rinsed/ Rinsed/ Rinsed/ Irrigated with Irrigated with Irrigated with Saline Saline Saline -Foul Odor after Cleansing No No No -Bioengineered Tissue Yes Yes Yes -Type of Bioengineered Tissue Epifix 18mm Epifix 18mm Epifix 18mm Disc Disc Disc -Expiration Date 11/30/26 11/30/26 11/30/26 -Product Lot Number [id number] -Percent Used 100 100 100 -Lot number of Saline Used [id number] -Bleeding Controlled with Pressure Pressure Pressure -Treatment Response Procedure Procedure Procedure Tolerated Well Tolerated Well Tolerated Well -Offloading No No -Debridement - Subq, 1st 20sq cm No No No -Apply Skin Sub - 1st 25 sq cm - Feet 1 1 1 -Epifix 18mm Disc 3 3 3 Pain Scale: 0-10 Numeric Is Patient Pain Free? Yes Yes Yes WC - Nurse 3 - General Ulcer D/C NN Start: 02/03/22 11:39 Freq: Status: Active Protocol: Activity Type Activity Date Activity User E-Sign Co-Sign Detail Recorded Client Recorded Date Recorded By Document 02/03/22 12:55 JF [id number] 02/03/22 12:56 JF Document 02/07/22 14:18 AK [id number] 02/07/22 14:20 AK Edit Result 02/07/22 14:18 AK (1) [id number] 02/08/22 07:05 PL Document 02/10/22 12:45 AK [id number] 02/10/22 12:47 AK Edit Result 02/10/22 12:45 AK (2) [id number] 02/11/22 06:58 PL Document 02/17/22 11:40 AK [id number] 02/17/22 11:55 AK (1) 3. R heel - NPWT Application Charge NPWT </= 50 sq cm => (disp) ($) => (2) #5 left lateral stump - NPWT Application Charge NPWT </= 50 sq cm => NPWT & Debridement (disp) ($) => (nc) 02/03/22 02/07/22 02/10/22 12:55 14:18 12:45 Wound Care Nurse 3 #5 left lateral stump -Ulcer Cleansing Rinsed/ Soap and Water Rinsed/ Irrigated with Irrigated with Saline Saline -Foul Odor after Cleansing No No No -Negative Pressure Wound Therapy Start N/A N/A -Setting (mmHg) 125 -Negative Pressure is Continuous -Primary Dressing Covered/Secured with Dry Gauze & Roll Gauze, Secured with Tape -NPWT Application Charge NPWT & NPWT </= 50 sq NPWT & Debridement (nc cm (disp) ($) Debridement (nc ) ) 3. R heel -Ulcer Cleansing Rinsed/ Rinsed/ Rinsed/ Irrigated with Irrigated with Irrigated with Saline Saline Saline -Foul Odor after Cleansing No No No -Negative Pressure Wound Therapy N/A N/A -Primary Dressing Applied Promogran Leighann Matter -Other Dressing ABD-hat nurses hat -Primary Dressing Covered/Secured with Dry Gauze & Dry Gauze & Roll Gauze, Roll Gauze, Secured with Secured with Tape Tape -Promogran Leighann Matter 1 Right -Tubular Bandage Single Layer -Size of Tubigrip Used Size D -Size D ($) 0 -Size E ($) Left -Compression Wrap Demetrio Wrap -Tubular Bandage -Size of Tubigrip Used -Size E ($) Vital Signs Temperature (97.8 F-99.1 F) 96.3 F L Temperature Source Temporal Pain Scale: 0-10 Numeric Is Patient Pain Free? Yes Yes Yes WC - Visit Discharge Discharge Condition Stable Stable Stable Ambulatory Status Wheelchair Wheelchair Wheelchair Transportation Private Auto Accompanied by daughter Medication Reconcilliation completed & Yes Yes No provided to patient/care provider Clinical Summary of Care Provided Yes Yes No 02/17/22 11:40 Wound Care Nurse 3 #5 left lateral stump -Ulcer Cleansing Rinsed/ Irrigated with Saline -Foul Odor after Cleansing No -Negative Pressure Wound Therapy Continue -Setting (mmHg) -Negative Pressure is -Primary Dressing Covered/Secured with -NPWT Application Charge NPWT </= 50 sq cm (disp) ($) 3. R heel -Ulcer Cleansing Rinsed/ Irrigated with Saline -Foul Odor after Cleansing -Negative Pressure Wound Therapy -Primary Dressing Applied -Other Dressing abd -Primary Dressing Covered/Secured with Dry Gauze & Roll Gauze, Secured with Tape -Promogran Leighann Matter Right -Tubular Bandage Double Layer -Size of Tubigrip Used Size E -Size D ($) -Size E ($) 2 Left -Compression Wrap -Tubular Bandage Double Layer -Size of Tubigrip Used Size E -Size E ($) 2 Vital Signs Temperature (97.8 F-99.1 F) Temperature Source Pain Scale: 0-10 Numeric Is Patient Pain Free? Yes WC - Visit Discharge Discharge Condition Ambulatory Status Transportation Accompanied by Medication Reconcilliation completed & provided to patient/care provider Clinical Summary of Care Provided Additional Wound Wound debrided: Right plantar heel Laterality: Right Wound Grade/Stage: Hernandez stage III Type of Debridement: Excisional debridement Anesthesia Used: 4% Lidocaine Solution Depth: Down to and including healthy tissue and in the subcutaneous layer Percentage of wound debrided: 100 Instrument Used: 3mm curette Tissue Removed: Fibrous, devitalized subcutaneous, biofilm, slough Severity: Fat Layer Exposed Amount of bleeding with debridement: Mild Bleeding Controlled with: Compression and gauze Patient tolerated procedure: Patient tolerated procedure well Assessment/Plan Assessment/Plan (1) Ulcer of amputation stump of foot: CODE(S): T87.89 - Other complications of amputation stump; L97.509 - Non- pressure chronic ulcer of other part of unspecified foot with unspecified severity (2) Decubitus ulcer of right heel, stage 3: CODE(S): L89.613 - Pressure ulcer of right heel, stage 3 (3) Type 2 diabetes mellitus: CODE(S): E11.9 - Type 2 diabetes mellitus without complications (4) Delayed wound healing: CODE(S): T14.8XXD - Other injury of unspecified body region, subsequent encounter (5) Non-pressure chronic ulcer of other part of left foot with fat layer exposed: CODE(S): L97.522 - Non-pressure chronic ulcer of other part of left foot with fat layer exposed (6) PAD (peripheral artery disease): CODE(S): I73.9 - Peripheral vascular disease, unspecified PLAN: This is a 67-year-old female with history of transmetatarsal amputation of the left foot with new open stump ulceration of the site and a right plantar heel ulceration, Hernandez grade 3. Patient is seen and evaluated Cultures and x-rays of her left foot performed per Dr. Barrera. Culture grew Streptococcus sensitive to penicillin however patient has penicillin allergy. Patient was placed on erythromycin 250 mg every [address] Barrera. Patient underwent MRI of her left foot to evaluate for possible infection. Her MRI was negative for osteomyelitis or gas in the tissues. Debridement done to both ulcers as documented above, procedure was well- tolerated. 10th application of epi fix to right heel performed today using 100% of the product. Site dressed with wound veil and anchored with Steri-Strips. She is to leave the dressing in place for 1 week. She is instructed to not get the dressing to the right heel wet. Left foot ulcerative site demonstrates no localized signs of infection. The surrounding tissues are healthy appearing and atrophic. Given that there is no localized signs of infection and MRI was negative for osteomyelitis, closure of this wound site was performed following local anesthetic block of 4 cc 2% lidocaine plain utilizing 3-0 Prolene. Optimal diabetes control and continued offloading strongly recommended. She states that her most recent A1C was at 7% and home readings have been over all stable. It is recommended she continue to increase protein intake to optimize healing, she is also supplementing vitamin C and D as discussed per Dr. Barrera. She is to continue Alfredo with collagen protein supplementation to aid in her wound healing. I discussed localized signs of infection for her to observe for. I discussed with her if she experiences any increased redness around the ulcerative site, any malodor from the ulcerative sites, or purulent drainage or if she experiences fever, nausea, or vomiting that these are signs of a progressing infection and she is to report to the ED. She voiced understanding of this. All of her questions were answered to her satisfaction. She was advised to call with any further questions or concerns. She will reappoint to the wound care ce nter in 1 week. Note: [employer] speech recognition database programmer analyst software was used to create portions of this document. Sound-alike and misspelled words, as well as other database programmer analyst errors may be contained in the documentation.
== END 2022-02-26 23:59 | disposition home or self-care (01) ==
LOC: WC 11:00
PROVIDERS: PCP Family Medicine; Referring Provider Internal Medicine; Visit Provider Student in an Organized Health Care Education/Training Program
DX: E11.621 Type 2 diabetes mellitus with foot ulcer (principal); L89.613 Pressure ulcer of right heel, stage 3; E11.51 Type 2 diabetes mellitus with diabetic peripheral angiopathy without gangrene; T87.89 Other complications of amputation stump; L98.492 Non-pressure chronic ulcer of skin of other sites with fat layer exposed; L97.522 Non-pressure chronic ulcer of other part of left foot with fat layer exposed; E11.40 Type 2 diabetes mellitus with diabetic neuropathy, unspecified; K55.9 Vascular disorder of intestine, unspecified; Y83.5 Amputation of limb(s) as the cause of abnormal reaction of the patient, or of later complication, without mention of misadventure at the time of the procedure; R60.0 Localized edema
CPT/HCPCS: 11042; 15275; 73718; 93970; 97607; Q4186

== ENCOUNTER 2022-03-24 11:00 | Outpatient (RCR) | payer MEDICARE, OTHER, SELFPAY ==
[2022-02-27 00:34] VITALS: BP 126/66; PULSE 70; RESP 16; TEMP 36.2
--- NOTE | 2022-03-03 12:14 | PCM.WC.PN ---
History of Present Illness Date of Service: 03/03/22 Chief Complaint: Right Foot/Heel ulcer History of Wound: Ms. Serra is a 66-year-old known to the wound center who was referred here by her sap technical architect due to right heel ulcer. Noted about 3 weeks ago. Believes it may have happened following repeated rubbing of her heel on her bed. She has been applying Medihoney however no significant improvement. She believes her last A1c was 7.6. Currently on DB 7 which she states that she takes for diabetes. She states that her numbers have been well controlled until yesterday where she had a reading in the 200s. Follows up with her primary care physician in [place]. Regarding gout also, she denies any significant drainage, chills or feeling of unwell. She is also on budesonide prescribed by GI for ischemic colitis. Subjective Subjective This 67-year-old female follows up at wound care center today for a left trace is metatarsal stump wound and right plantar heel wound. She denies any constitutional symptoms today. She has no other complaints today. Objective Data Objective Data Vital Signs: Vital Signs Temp Pulse Resp BP 97.2 F L 70 16 126/66 H 02/27/22 00:34 02/27/22 00:34 02/27/22 00:34 02/27/22 00:34 Physical Exam Const alert, oriented x3 and no apparent distress General Appearance: cooperative and comfortable HEENT normocephalic Eyes General Eye: normal appearance of both eyes Neck General: normal visual inspection Lymph Lymphatic: no lymphadenopathy noted and no lymphedema noted Resp normal respiratory effort Cardio regular rate and regular rhythm Extremity normal capillary refill, no joint enlargement, no calf tenderness and no pedal edema Extremity Narrative: Transmetatarsal amputation noted to the left foot Skin no rashes or lesions noted, skin turgor normal and no jaundice Wound Narrative: Right plantar heel demonstrates mixed fiber granular tissue with some serosanguineous drainage. No localized signs of infection Left transmetatarsal stump ulceration demonstrates intact sutures with skin well coapted. No local signs of infection Neuro oriented x3 and moves all extremities Motor Exam: strength 5/5 throughout Debridement Note Debridement Note Wound debrided: Right plantar heel Laterality: Right Wound Grade/Stage: Stage III Type of Debridement: Excisional debridement Anesthesia Used: 4% Lidocaine Solution Depth: Down to and including healthy tissue and in the subcutaneous layer Percentage of wound debrided: 100 Instrument Used: 3mm curette Tissue Removed: Fibrous, devitalized subcutaneous, biofilm, slough Severity: Fat Layer Exposed Amount of bleeding with debridement: Mild Bleeding Controlled with: Compression and gauze Patient tolerated procedure: Patient tolerated procedure well Assessment/Plan Assessment/Plan (1) Ulcer of amputation stump of foot: CODE(S): T87.89 - Other complications of amputation stump; L97.509 - Non-pressure chronic ulcer of other part of unspecified foot with unspecified severity (2) Decubitus ulcer of right heel, stage 3: CODE(S): L89.613 - Pressure ulcer of right heel, stage 3 (3) Non-pressure chronic ulcer of other part of left foot with fat layer exposed: CODE(S): L97.522 - Non-pressure chronic ulcer of other part of left foot with fat layer exposed (4) Type 2 diabetes mellitus: CODE(S): E11.9 - Type 2 diabetes mellitus without complications (5) Delayed wound healing: CODE(S): T14.8XXD - Other injury of unspecified body region, subsequent encounter (6) PAD (peripheral artery disease): CODE(S): I73.9 - Peripheral vascular disease, unspecified PLAN: This is a 67-year-old female with history of transmetatarsal amputation of the left foot with new open stump ulceration of the site and a right plantar heel ulceration, Hernandez grade 3. Patient is seen and evaluated Cultures and x-rays of her left foot performed per Dr. Barrera. Culture grew Streptococcus sensitive to penicillin however patient has penicillin allergy. Patient was placed on erythromycin 250 mg every [address] Barrera. Patient underwent MRI of her left foot to evaluate for possible infection. Her MRI was negative for osteomyelitis or gas in the tissues. Debridement done to both ulcers as documented above, procedure was well-tolerated. Left foot is intact at stump site with skin well coapted. No signs of infection. We will consider removal of sutures in next 1 to 2 weeks. Right heel dressed with Aquacel Ag and dry sterile dressings. Optimal diabetes control and continued offloading strongly recommended. She states that her most recent A1C was at 7% and home readings have been over all stable. It is recommended she continue to increase protein intake to optimize healing, she is also supplementing vitamin C and D as discussed per Dr. Barrera. She is to continue Alfredo with collagen protein supplementation to aid in her wound healing. I discussed localized signs of infection for her to observe for. I discussed with her if she experiences any increased redness around the ulcerative site, any malodor from the ulcerative sites, or purulent drainage or if she experiences fever, nausea, or vomiting that these are signs of a progressing infection and she is to report to the ED. She voiced understanding of this. All of her questions were answered to her satisfaction. She was advised to call with any further questions or concerns. She will reappoint to the wound care center in 1 week. Note: Virtual 3-D Display for Smartphones speech recognition pet care assistant software was used to create portions of this document. Sound-alike and misspelled words, as well as other pet care assistant errors may be contained in the documentation.
[2022-03-03 12:39] VITALS: BP 138/62; PULSE 63; TEMP 36.3
[2022-03-10 11:09] VITALS: BP 164/76; PULSE 71; RESP 16; TEMP 36.1
--- NOTE | 2022-03-10 12:25 | PN.PCM_ITS ---
History of Present Illness Date of Service: 03/10/22 Chief Complaint: Right Foot/Heel ulcer History of Wound: Ms. Serra is a 66-year-old known to the wound center who was referred here by her zipper trimmer hand due to right heel ulcer. Noted about 3 weeks ago. Believes it may have happened following repeated rubbing of her heel on her bed. She has been applying Medihoney however no significant improvement. She believes her last A1c was 7.6. Currently on DB 7 which she states that she takes for diabetes. She states that her numbers have been well controlled until yesterday where she had a reading in the 200s. Follows up with her primary care physician in [place]. Regarding gout also, she denies any significant drainage, chills or feeling of unwell. She is also on budesonide prescribed by GI for ischemic colitis. Subjective Subjective This 67-year-old female follows up at wound care center today for a left transmetatarsal stump wound and right plantar heel wound. She denies any constitutional symptoms today. She has no other complaints today. Objective Data Objective Data Vital Signs: Vital Signs Temp Pulse Resp BP 96.9 F L 71 16 164/76 H 03/10/22 11:09 03/10/22 11:09 03/10/22 11:09 03/10/22 11:09 Oxygen Delivery Method Room Air Physical Exam Const alert, oriented x3 and no apparent distress General Appearance: cooperative and comfortable HEENT normocephalic Eyes General Eye: normal appearance of both eyes Neck General: normal visual inspection Lymph Lymphatic: no lymphadenopathy noted and no lymphedema noted Resp normal respiratory effort Cardio regular rate and regular rhythm Extremity normal capillary refill, no joint enlargement, no calf tenderness and no pedal edema Extremity Narrative: Transmetatarsal amputation noted to the left foot Skin no rashes or lesions noted, skin turgor normal and no jaundice Wound Narrative: Right plantar heel demonstrates mixed fiber granular tissue with some serosanguineous drainage. No localized signs of infection Left transmetatarsal stump ulceration demonstrates intact sutures with skin well coapted. No local signs of infection Neuro oriented x3 and moves all extremities Motor Exam: strength 5/5 throughout Debridement Note Debridement Note Wound debrided: Right plantar heel Laterality: Right Wound Grade/Stage: Hernandez stage III Type of Debridement: Excisional debridement Anesthesia Used: 5% Lidocaine Gel Depth: Down to and including healthy tissue and in the subcutaneous layer Percentage of wound debrided: 100 Instrument Used: 3mm curette and #15 blade Tissue Removed: Fibrous, devitalized subcutaneous, biofilm, slough Severity: Fat Layer Exposed Amount of bleeding with debridement: Mild Bleeding Controlled with: Compression and gauze Patient tolerated procedure: Patient tolerated procedure well Post-Debridement Measurements and Additional Note: Post-Debridement Measurements/Treatment LEO - Nurse 1 - General Ulcer Assessment Start: 03/03/22 12:39 Freq: Status: Active Protocol: [place] Activity Type Activity Date Activity User E-Sign Co-Sign Detail Recorded Client Recorded Date Recorded By Document 03/03/22 12:39 ME [id number] 03/03/22 12:51 [place] Document 03/10/22 11:09 [facility] [id number] 03/10/22 11:22 [facility] 03/03/22 03/10/22 12:39 11:09 - Today's Visit Information Type of service Follow-up Visit Follow-up Visit (Physician/DRIVER OPERATOR (Physician/DRIVER OPERATOR ) ) Arrival Mode Wheelchair Wheelchair Transfer Assistance Other Transfer Assist (Other) stand by Patient Identification Verified (Name & Yes Yes ) Patient Requires Transmission-Based No No Precautions Safety Precautions NA Vital Signs Temperature (97.8 F-99.1 F) 97.3 F L 96.9 F L Temperature Source Temporal Temporal Pulse Rate (60-100) 63 71 Pulse Location Monitor Monitor Respiratory Rate (12-18) 16 Respiratory rate source Observation Oxygen Delivery Method Room Air Blood Pressure (90/60-120/80) 138/62 H 164/76 H Blood Pressure Mean (mm Hg) 87 105 Source Monitor Monitor Position Sitting Blood Pressure Location Right Arm History Since Last Visit- (Skip if this is Patient's initial visit) Have you changed medications since your No No last visit? Any new allergies or adverse reactions No No Had a fall/change in ADL's that may No No increase risk of falls Signs or symptoms of abuse and/or No No neglect since last visit Have you been in the hospital since your No No last visit? Has dressing in place as prescribed Yes Yes Has compression in place as prescribed Yes Yes Has offloadiing in place as prescribed N/A Yes Experienced any changes in pain level or No No management Right Footwear Surgical Shoe with pressure relief insole Pain Scale: 0-10 Numeric Is Patient Pain Free? Yes Yes WC - Nurse 1 - General Ulcer Measurement Start: 03/03/22 12:39 Freq: Status: Active Protocol: Activity Type Activity Date Activity User E-Sign Co-Sign Detail Recorded Client Recorded Date Recorded By Document 03/03/22 12:39 [place] [id number] 03/03/22 12:51 [place] Document 03/10/22 11:09 [facility] [id number] 03/10/22 11:22 [facility] 03/03/22 03/10/22 12:39 11:09 Wound Center Nurse 1 #5 left lateral stump -Combined with other wound No No -Current Size (cm) - Length 0.1 0.1 -Current Size (cm) - Width 0.1 0.1 -Current Size (cm) - Depth 0.1 0.1 -Total Square Cm 0.01 0.01 -Photo Taken No -Epithelialization None Present -Tunneling No -Undermining/Tunneling No -Circular Undermining No -Change in Wound Grade/Stage No -Exudate Amt None Present -Wound Margin Distinct, Outline Attached -Granulation Amt None Present (0 %) -Granulation Quality N/A -Slough/Fibrin No -Necrosis Amt None Present (0 %) -Structure Exposed N/A -Texture (Margy-wound Skin Appearance) No Abnormality, Assessed, Assessed Localized Edema -Moisture (Margy-wound Skin Appearance) No Abnormality, Assessed Assessed -Color (Margy-wound Skin Appearance) No Abnormality, Assessed, Assessed Erythema -Temperature (Margy-wound Skin No Abnormality No Abnormality Appearance) (Pt Warm) (Pt Warm) -Tenderness on Palpation (Margy-wound No No Skin Appearance) -Ulcer Cleansing Rinsed/ Irrigated with Saline -Foul Odor after Cleansing No No -Anesthetic Used 4% Lidocaine Solution -Wound Comment(s) sutures in place 3. R heel -Combined with other wound No No -Current Size (cm) - Length 0.5 1 -Current Size (cm) - Width 0.8 1.4 -Current Size (cm) - Depth 0.1 0.1 -Total Square Cm 0.40 1.4 -Photo Taken No No -Epithelialization None Present Small 1-33% -Tunneling No No -Undermining/Tunneling No No -Circular Undermining No No -Change in Wound Grade/Stage No -Exudate Amt None Present Medium -Exudate Type Purulent Serosanguineous -Wound Margin Distinct, Distinct, Outline Outline Attached Attached -Granulation Amt None Present (0 Medium (34-66%) %) -Granulation Quality N/A [place] -Slough/Fibrin Yes Yes -Necrosis Amt Small (1-33%) Small (1-33%) -Necrotic Tissue Type Adherent Slough Adherent Slough -Structure Exposed N/A -Texture (Margy-wound Skin Appearance) Assessed,Callus Assessed,Callus ,Scarring -Moisture (Margy-wound Skin Appearance) Assessed Assessed,Dry/ Scaly -Color (Margy-wound Skin Appearance) Assessed Assessed -Temperature (Margy-wound Skin No Abnormality No Abnormality Appearance) (Pt Warm) (Pt Warm) -Tenderness on Palpation (Margy-wound No No Skin Appearance) -Ulcer Cleansing Rinsed/ Rinsed/ Irrigated with Irrigated with Saline Saline -Foul Odor after Cleansing No No -Anesthetic Used 4% Lidocaine 4% Lidocaine Solution Solution Lower Limb Edema Present No WC - Nurse 2 - General Ulcer CM Notes Start: 03/03/22 12:39 Freq: Status: Active Protocol: Activity Type Activity Date Activity User E-Sign Co-Sign Detail Recorded Client Recorded Date Recorded By Document 03/03/22 13:42 NICKY [id number] 03/03/22 13:43 PL Document 03/10/22 11:47 [id number] 03/10/22 11:58 03/03/22 03/10/22 13:42 11:47 Wound Center Nurse 2 #5 left lateral stump -Correct Patient No -Correct Side, Site, Position No -Correct Procedure No -Procedure Performed No No -Wound/Ulcer Outcome Not Healed 3. R heel -Time 11:43 11:54 -Correct Patient Yes Yes -Correct Side, Site, Position Yes Yes -Correct Procedure Yes Yes -Procedure Performed Yes Yes -Type of Procedure Debridement Debridement -Clinical Debridement Subcutaneous Subcutaneous -Tissue Removed Subcutaneous Subcutaneous -Post Debridement (cm) - Length 0.5 1.0 -Post Debridement (cm) - Width 0.8 1.5 -Post Debridement (cm) - Depth 0.1 0.1 -Total Square (Post) (cm) 0.40 1.50 -Area of Debridement (cm) - Length 0.5 1.0 -Area of Debridement (cm) - Width 0.8 1.5 -Total Square (Area) (cm) 0.40 1.50 -Tunneling No No -Undermining/Tunneling No No -Circular Undermining No No -Wound/Ulcer Outcome Not Healed Not Healed -Ulcer Cleansing Rinsed/ Rinsed/ Irrigated with Irrigated with Saline Saline -Foul Odor after Cleansing No No -Bioengineered Tissue No No -Bleeding Controlled with Pressure Pressure -Treatment Response Procedure Procedure Tolerated Well Tolerated Well -Offloading No -Assistive Device(s) Wheelchair -Debridement - Subq, 1st 20sq cm Yes Yes Pain Scale: 0-10 Numeric Is Patient Pain Free? Yes Yes WC - Nurse 3 - General Ulcer D/C NN Start: 03/03/22 12:39 Freq: Status: Active Protocol: Activity Type Activity Date Activity User E-Sign Co-Sign Detail Recorded Client Recorded Date Recorded By Document 03/03/22 12:39 ME [id number] 03/03/22 12:51 [place] Document 03/10/22 12:11 [facility] [id number] 03/10/22 12:13 [facility] 03/03/22 03/10/22 12:39 12:11 Vital Signs Temperature (97.8 F-99.1 F) 97.3 F L Temperature Source Temporal Pulse Rate (60-100) 63 Pulse Location Monitor Blood Pressure (90/60-120/80) 138/62 H Blood Pressure Mean (mm Hg) 87 Source Monitor Pain Scale: 0-10 Numeric Is Patient Pain Free? Yes Yes Wound Care Nurse 3 #5 left lateral stump -Ulcer Cleansing Rinsed/ Irrigated with Saline -Foul Odor after Cleansing No -Negative Pressure Wound Therapy N/A -Primary Dressing Applied Aquacel AG 4x4, Promogran Leighann Matter -Other Dressing EPIFIX -Primary Dressing Covered/Secured with Dry Gauze, Dry Gauze & Secured with Roll Gauze, Tape Secured with Tape -Other Covering DRSG PER ME RETAIL CUSTOMER SERVICE SPECIALIST -Aquacel AG 4x4 1 -Promogran Leighann Matter 1 3. R heel -Ulcer Cleansing Rinsed/ Rinsed/ Irrigated with Irrigated with Saline Saline -Foul Odor after Cleansing No No -Negative Pressure Wound Therapy N/A -Primary Dressing Applied Aquacel AG 4x4, Aquacel AG 2x2 Promogran Leighann Matter -Other Dressing DRSG PER ME RETAIL CUSTOMER SERVICE SPECIALIST -Primary Dressing Covered/Secured with Secured with Dry Gauze & Tape Roll Gauze, Secured with Tape,Other -Other Covering HEEL HAT -Aquacel AG 4x4 0 -Aquacel AG 2x2 1 -Promogran Leighann Matter 0 BLE -Other PTS OWN SINGLE LAYER TUBIS APPLIED Treatment Response Procedure Tolerated Well WC - Visit Discharge Discharge Condition Stable Stable Ambulatory Status Ambulatory Wheelchair Transportation Private Auto Accompanied by ELECTRIC W/C Medication Reconcilliation completed & Yes provided to patient/care provider Clinical Summary of Care Provided Yes Assessment/Plan Assessment/Plan (1) Ulcer of amputation stump of foot: CODE(S): T87.89 - Other complications of amputation stump; L97.509 - Non- pressure chronic ulcer of other part of unspecified foot with unspecified severity (2) Decubitus ulcer of right heel, stage 3: CODE(S): L89.613 - Pressure ulcer of right heel, stage 3 (3) Non-pressure chronic ulcer of other part of left foot with fat layer exposed: CODE(S): L97.522 - Non-pressure chronic ulcer of other part of left foot with fat layer exposed (4) Type 2 diabetes mellitus: CODE(S): E11.9 - Type 2 diabetes mellitus without complications (5) Delayed wound healing: CODE(S): T14.8XXD - Other injury of unspecified body region, subsequent encounter (6) PAD (peripheral artery disease): CODE(S): I73.9 - Peripheral vascular disease, unspecified PLAN: This is a 67-year-old female with history of transmetatarsal amputation of the left foot with new open stump ulceration of the site and a right plantar heel ulceration, Hernandez grade 3. Patient is seen and evaluated Debridement performed to right heel ulcer as documented above, procedure was well-tolerated. Left foot is intact at stump site with skin well coapted. No signs of infection. Sutures removed today. There is a small split in the skin secondary to maceration at the most lateral aspect of previous wound. Steri-Strips applied to close site and will allow area to dry out and evaluate next week. Right heel dressed with Aquacel Ag and dry sterile dressings. Optimal diabetes control and continued offloading strongly recommended. She states that her most recent A1C was at 7% and home readings have been over all stable. It is recommended she continue to increase protein intake to optimize healing, she is also supplementing vitamin C and D as discussed per Dr. Barrera. She is to continue Alfredo with collagen protein supplementation to aid in her wound healing. I discussed localized signs of infection for her to observe for. I discussed with her if she experiences any increased redness around the ulcerative site, any malodor from the ulcerative sites, or purulent drainage or if she experiences fever, nausea, or vomiting that these are signs of a progressing infection and she is to report to the ED. She voiced understanding of this. All of her questions were answered to her satisfaction. She was advised to call with any further questions or concerns. She will reappoint to the wound care center in 1 week. Note: [employer] speech recognition hand tube bender software was used to create portions of this document. Sound-alike and misspelled words, as well as other hand tube bender errors may be contained in the documentation.
[2022-03-17 11:16] VITALS: BP 151/78; PULSE 73; RESP 16; TEMP 35.7
--- NOTE | 2022-03-17 14:27 | PCM.WC.PN ---
History of Present Illness Date of Service: 03/17/22 Chief Complaint: Right Foot/Heel ulcer History of Wound: Ms. Serra is a 66-year-old known to the wound center who was referred here by her bellman due to right heel ulcer. Noted about 3 weeks ago. Believes it may have happened following repeated rubbing of her heel on her bed. She has been applying Medihoney however no significant improvement. She believes her last A1c was 7.6. Currently on DB 7 which she states that she takes for diabetes. She states that her numbers have been well controlled until yesterday where she had a reading in the 200s. Follows up with her primary care physician in [place]. Regarding gout also, she denies any significant drainage, chills or feeling of unwell. She is also on budesonide prescribed by GI for ischemic colitis. Subjective Subjective This 67-year-old female follows up at wound care center today for a left transmetatarsal stump wound and right plantar heel wound. She states 2 days ago that her left foot near the transmetatarsal amputation site became discolored red with a small yellow blister. She denies any constitutional symptoms today. She has no other complaints today. Objective Data Objective Data Vital Signs: Vital Signs Temp Pulse Resp BP 96.2 F L 73 16 151/78 H 03/17/22 11:16 03/17/22 11:16 03/17/22 11:16 03/17/22 11:16 Oxygen Delivery Method Room Air Physical Exam Const alert, oriented x3 and no apparent distress General Appearance: cooperative and comfortable HEENT normocephalic Eyes General Eye: normal appearance of both eyes Neck General: normal visual inspection Lymph Lymphatic: no lymphadenopathy noted and no lymphedema noted Resp normal respiratory effort Cardio regular rate and regular rhythm Extremity normal capillary refill, no joint enlargement, no calf tenderness and no pedal edema Extremity Narrative: Transmetatarsal amputation noted to the left foot Skin no rashes or lesions noted, skin turgor normal and no jaundice Wound Narrative: Right plantar heel demonstrates mixed fiber granular tissue with some serosanguineous drainage. No localized signs of infection Left transmetatarsal stump ulceration demonstrates erythema with superficial blister/abscess formation at the most central distal site of her amputation stump. Neuro oriented x3 and moves all extremities Motor Exam: strength 5/5 throughout Debridement Note Debridement Note Wound debrided: Right lateral transmetatarsal amputation stump Wound Grade/Stage: Hernandez stage I Type of Debridement: Excisional debridement Depth: Down to and including healthy tissue and in the subcutaneous layer Percentage of wound debrided: 100 Instrument Used: #15 blade Tissue Removed: Fibrous, devitalized subcutaneous, biofilm, slough Severity: Fat Layer Exposed Amount of bleeding with debridement: Mild Bleeding Controlled with: Compression and gauze Patient tolerated procedure: Patient tolerated procedure well Post-Debridement Measurements and Additional Note: Post-Debridement Measurements/Treatment - Nurse 1 - General Ulcer Assessment Start: 03/03/22 12:39 Freq: Status: Active Protocol: BragsterSERGIO Activity Type Activity Date Activity User E-Sign Co-Sign Detail Recorded Client Recorded Date Recorded By Document 03/03/22 12:39 [place] [id number] 03/03/22 12:51 [place] Document 03/10/22 11:09 [facility] [id number] 03/10/22 11:22 [facility] Document 03/17/22 11:16 [facility] [id number] 03/17/22 11:27 [facility] 03/03/22 03/10/22 03/17/22 12:39 11:09 11:16 - Today's Visit Information Type of service Follow-up Visit Follow-up Visit Follow-up Visit (Physician/INDUCTION COORDINATION ENGINEER (Physician/INDUCTION COORDINATION ENGINEER (Physician/INDUCTION COORDINATION ENGINEER ) ) ) Arrival Mode Wheelchair Wheelchair Wheelchair Transfer Assistance Other Other Transfer Assist (Other) stand by stand by Patient Identification Verified (Name & Yes Yes Yes ) Patient Requires Transmission-Based No No Precautions Safety Precautions NA Vital Signs Temperature (97.8 F-99.1 F) 97.3 F L 96.9 F L 96.2 F L Temperature Source Temporal Temporal Temporal Pulse Rate (60-100) 63 71 73 Pulse Location Monitor Monitor Monitor Respiratory Rate (12-18) 16 16 Respiratory rate source Observation Observation Oxygen Delivery Method Room Air Room Air Blood Pressure (90/60-120/80) 138/62 H 164/76 H 151/78 H Blood Pressure Mean (mm Hg) 87 105 102 Source Monitor Monitor Monitor Position Sitting Sitting Blood Pressure Location Right Arm Right Arm History Since Last Visit- (Skip if this is Patient's initial visit) Have you changed medications since your No No No last visit? Any new allergies or adverse reactions No No No Had a fall/change in ADL's that may No No No increase risk of falls Signs or symptoms of abuse and/or No No No neglect since last visit Have you been in the hospital since your No No No last visit? Has dressing in place as prescribed Yes Yes Yes Has compression in place as prescribed Yes Yes Yes Has offloadiing in place as prescribed N/A Yes Yes Experienced any changes in pain level or No No No management Right Footwear Surgical Shoe with pressure relief insole Other Footwear soft socks both feet Pain Scale: 0-10 Numeric Is Patient Pain Free? Yes Yes Yes WC - Nurse 1 - General Ulcer Measurement Start: 03/03/22 12:39 Freq: Status: Active Protocol: Activity Type Activity Date Activity User E-Sign Co-Sign Detail Recorded Client Recorded Date Recorded By Document 03/03/22 12:39 [place] [id number] 03/03/22 12:51 [place] Document 03/10/22 11:09 [facility] [id number] 03/10/22 11:22 [facility] Document 03/17/22 11:16 [facility] [id number] 03/17/22 11:27 F 03/03/22 03/10/22 03/17/22 12:39 11:09 11:16 Wound Center Nurse 1 #5 left lateral stump -Combined with other wound No No No -Current Size (cm) - Length 0.1 0.1 0.2 -Current Size (cm) - Width 0.1 0.1 1 -Current Size (cm) - Depth 0.1 0.1 1.5 -Total Square Cm 0.01 0.01 0.2 -Date of Last Picture (Recall this 03/17/22 field) -Photo Taken No Yes -Epithelialization None Present None Present -Tunneling No No -Undermining/Tunneling No No -Circular Undermining No No -Change in Wound Grade/Stage No -Exudate Amt None Present Small -Exudate Type Serosanguineous -Wound Margin Distinct, Distinct, Outline Outline Attached Attached -Granulation Amt None Present (0 Large (67-100%) %) -Granulation Quality N/A Red -Slough/Fibrin No Yes -Necrosis Amt None Present (0 Small (1-33%) %) -Necrotic Tissue Type Adherent Slough -Structure Exposed N/A -Texture (Margy-wound Skin Appearance) No Abnormality, Assessed, Assessed, Assessed Localized Edema Scarring -Moisture (Margy-wound Skin Appearance) No Abnormality, Assessed Assessed, Assessed Maceration -Color (Margy-wound Skin Appearance) No Abnormality, Assessed, Assessed,Palor Assessed Erythema -Temperature (Margy-wound Skin No Abnormality No Abnormality No Abnormality Appearance) (Pt Warm) (Pt Warm) (Pt Warm) -Tenderness on Palpation (Margy-wound No No No Skin Appearance) -Ulcer Cleansing Rinsed/ Soap and Water Irrigated with Saline -Foul Odor after Cleansing No No No -Anesthetic Used 4% Lidocaine 4% Lidocaine Solution Solution -Wound Comment(s) sutures in place 3. R heel -Combined with other wound No No No -Current Size (cm) - Length 0.5 1 0.8 -Current Size (cm) - Width 0.8 1.4 1 -Current Size (cm) - Depth 0.1 0.1 0.2 -Total Square Cm 0.40 1.4 0.8 -Date of Last Picture (Recall this 03/17/22 field) -Photo Taken No No Yes -Epithelialization None Present Small 1-33% Small 1-33% -Tunneling No No No -Undermining/Tunneling No No No -Circular Undermining No No No -Change in Wound Grade/Stage No -Exudate Amt None Present Medium Medium -Exudate Type Purulent Serosanguineous Serosanguineous -Wound Margin Distinct, Distinct, Distinct, Outline Outline Outline Attached Attached Attached -Granulation Amt None Present (0 Medium (34-66%) Small (1-33%) %) -Granulation Quality N/A [place] Red -Slough/Fibrin Yes Yes Yes -Necrosis Amt Small (1-33%) Small (1-33%) Large (67-100%) -Necrotic Tissue Type Adherent Slough Adherent Slough Adherent Slough -Structure Exposed N/A -Texture (Margy-wound Skin Appearance) Assessed,Callus Assessed,Callus Assessed, ,Scarring Scarring -Moisture (Margy-wound Skin Appearance) Assessed Assessed,Dry/ Assessed Scaly -Color (Margy-wound Skin Appearance) Assessed Assessed Assessed -Temperature (Margy-wound Skin No Abnormality No Abnormality No Abnormality Appearance) (Pt Warm) (Pt Warm) (Pt Warm) -Tenderness on Palpation (Margy-wound No No No Skin Appearance) -Ulcer Cleansing Rinsed/ Rinsed/ Soap and Water Irrigated with Irrigated with Saline Saline -Foul Odor after Cleansing No No No -Anesthetic Used 4% Lidocaine 4% Lidocaine 4% Lidocaine Solution Solution Solution Lower Limb Edema Present No WC - Nurse 2 - General Ulcer CM Notes Start: 03/03/22 12:39 Freq: Status: Active Protocol: Activity Type Activity Date Activity User E-Sign Co-Sign Detail Recorded Client Recorded Date Recorded By Document 03/03/22 13:42 PL [id number] 03/03/22 13:43 PL Document 03/10/22 11:47 [id number] 03/10/22 11:58 JF 03/03/22 03/10/22 13:42 11:47 Wound Center Nurse 2 #5 left lateral stump -Correct Patient No -Correct Side, Site, Position No -Correct Procedure No -Procedure Performed No No -Wound/Ulcer Outcome Not Healed 3. R heel -Time 11:43 11:54 -Correct Patient Yes Yes -Correct Side, Site, Position Yes Yes -Correct Procedure Yes Yes -Procedure Performed Yes Yes -Type of Procedure Debridement Debridement -Clinical Debridement Subcutaneous Subcutaneous -Tissue Removed Subcutaneous Subcutaneous -Post Debridement (cm) - Length 0.5 1.0 -Post Debridement (cm) - Width 0.8 1.5 -Post Debridement (cm) - Depth 0.1 0.1 -Total Square (Post) (cm) 0.40 1.50 -Area of Debridement (cm) - Length 0.5 1.0 -Area of Debridement (cm) - Width 0.8 1.5 -Total Square (Area) (cm) 0.40 1.50 -Tunneling No No -Undermining/Tunneling No No -Circular Undermining No No -Wound/Ulcer Outcome Not Healed Not Healed -Ulcer Cleansing Rinsed/ Rinsed/ Irrigated with Irrigated with Saline Saline -Foul Odor after Cleansing No No -Bioengineered Tissue No No -Bleeding Controlled with Pressure Pressure -Treatment Response Procedure Procedure Tolerated Well Tolerated Well -Offloading No -Assistive Device(s) Wheelchair -Debridement - Subq, 1st 20sq cm Yes Yes Pain Scale: 0-10 Numeric Is Patient Pain Free? Yes Yes WC - Nurse 3 - General Ulcer D/C NN Start: 03/03/22 12:39 Freq: Status: Active Protocol: Activity Type Activity Date Activity User E-Sign Co-Sign Detail Recorded Client Recorded Date Recorded By Document 03/03/22 12:39 [place] [id number] 03/03/22 12:51 [place] Document 03/10/22 12:11 [facility] [id number] 03/10/22 12:13 [facility] Document 03/17/22 12:43 [place] [id number] 03/17/22 12:44 [place] 03/03/22 03/10/22 03/17/22 12:39 12:11 12:43 Vital Signs Temperature (97.8 F-99.1 F) 97.3 F L Temperature Source Temporal Pulse Rate (60-100) 63 Pulse Location Monitor Blood Pressure (90/60-120/80) 138/62 H Blood Pressure Mean (mm Hg) 87 Source Monitor Pain Scale: 0-10 Numeric Is Patient Pain Free? Yes Yes Yes Wound Care Nurse 3 #5 left lateral stump -Ulcer Cleansing Rinsed/ Rinsed/ Irrigated with Irrigated with Saline Saline -Foul Odor after Cleansing No No -Negative Pressure Wound Therapy N/A N/A -Primary Dressing Applied Aquacel AG 4x4, Aquacel Rope Promogran Leighann Matter -Other Dressing EPIFIX -Primary Dressing Covered/Secured with Dry Gauze, Dry Gauze & Dry Gauze & Secured with Roll Gauze, Roll Gauze, Tape Secured with Secured with Tape Tape -Other Covering DRSG PER [place] SUPPLY CHAIN ENGINEER -Aquacel AG 4x4 1 -Aquacel Rope 1 -Promogran Leighann Matter 1 3. R heel -Ulcer Cleansing Rinsed/ Rinsed/ Rinsed/ Irrigated with Irrigated with Irrigated with Saline Saline Saline -Foul Odor after Cleansing No No No -Negative Pressure Wound Therapy N/A N/A -Primary Dressing Applied Aquacel AG 4x4, Aquacel AG 2x2 Aquacel AG 4x4 Promogran Leighann Matter -Other Dressing DRSG PER [place] SUPPLY CHAIN ENGINEER ABD -Primary Dressing Covered/Secured with Secured with Dry Gauze & Dry Gauze & Tape Roll Gauze, Roll Gauze, Secured with Secured with Tape,Other Tape -Other Covering HEEL HAT -Aquacel AG 4x4 0 1 -Aquacel AG 2x2 1 -Promogran Leighann Matter 0 BLE -Other PTS OWN SINGLE LAYER TUBIS APPLIED Treatment Response Procedure Tolerated Well WC - Visit Discharge Discharge Condition Stable Stable Stable Ambulatory Status Ambulatory Wheelchair Wheelchair Transportation Private Auto Private Auto Accompanied by ELECTRIC W/C Medication Reconcilliation completed & Yes Yes provided to patient/care provider Clinical Summary of Care Provided Yes Yes Additional Wound Wound debrided: Right plantar heel Laterality: Right Wound Grade/Stage: Hernandez stage III Type of Debridement: Excisional debridement Anesthesia Used: 5% Lidocaine Gel Depth: Down to and including healthy tissue and in the subcutaneous layer Percentage of wound debrided: 100 Instrument Used: 3mm curette Tissue Removed: Fibrous, devitalized subcutaneous, biofilm, slough Severity: Fat Layer Exposed Amount of bleeding with debridement: Mild Bleeding Controlled with: Compression and gauze Patient tolerated procedure: Patient tolerated procedure well Assessment/Plan Assessment/Plan (1) Ulcer of amputation stump of foot: CODE(S): T87.89 - Other complications of amputation stump; L97.509 - Non-pressure chronic ulcer of other part of unspecified foot with unspecified severity (2) Decubitus ulcer of right heel, stage 3: CODE(S): L89.613 - Pressure ulcer of right heel, stage 3 (3) Non-pressure chronic ulcer of other part of left foot with fat layer exposed: CODE(S): L97.522 - Non-pressure chronic ulcer of other part of left foot with fat layer exposed (4) Type 2 diabetes mellitus: CODE(S): E11.9 - Type 2 diabetes mellitus without complications (5) Delayed wound healing: CODE(S): T14.8XXD - Other injury of unspecified body region, subsequent encounter (6) PAD (peripheral artery disease): CODE(S): I73.9 - Peripheral vascular disease, unspecified PLAN: This is a 67-year-old female with history of transmetatarsal amputation of the left foot with new open stump ulceration of the site and a right plantar heel ulceration, Hernandez grade 3. Patient is seen and evaluated Debridement performed to right heel ulcer as documented above, procedure was well-tolerated. Left foot is intact at stump site with dehiscence of previous lateral wound site. There is a small split in the skin secondary to maceration at the most lateral aspect of previous wound. She demonstrates erythema of the distal central aspect of her transmetatarsal amputation stump with small superficial yellowish blister/abscess formation. She was locally anesthetized about the forefoot proximally utilizing 6 cc of 2% lidocaine plain. Utilizing a #15 blade an incision was made through the blister/abscess site and the site was expressed of any and all purulent drainage. The site was then flushed with copious amounts of normal sterile saline. Following this immediate improvement of her discoloration was noted. Incision site was reapproximated utilizing 3-0 Prolene. A dry sterile dressing was applied. Debridement of the lateral wound site performed as noted above in clinical panel. Site packed with Aquacel Ag rope and dry sterile dressing applied. She was instructed to change the dressings to the site daily and keep them clean, dry, and intact. She will be started on doxycycline 100 mg p.o. twice daily for 10 days. She states she also gets diarrhea with history of C. difficile upon taking any antibiotics and states she has to be on oral vancomycin with this. I will start her on oral vancomycin 125 mg p.o. every 6 hours for the next 10 days. She was instructed to take antibiotics with food and to take a probiotic yogurt daily. She will be closely monitored for any changes to the site. Right heel dressed with Aquacel Ag and dry sterile dressings. Optimal diabetes control and continued offloading strongly recommended. She states that her most recent A1C was at 7% and home readings have been over all stable. It is recommended she continue to increase protein intake to optimize healing, she is also supplementing vitamin C and D as discussed per Dr. Barrera. She is to continue Alfredo with collagen protein supplementation to aid in her wound healing. I discussed localized signs of infection for her to observe for. I discussed with her if she experiences any increased redness around the ulcerative site, any malodor from the ulcerative sites, or purulent drainage or if she experiences fever, nausea, or vomiting that these are signs of a progressing infection and she is to report to the ED. She voiced understanding of this. All of her questions were answered to her satisfaction. She was advised to call with any further questions or concerns. She will reappoint to the wound care center in 1 week. Note: [employer] speech recognition panelboard assembler software was used to create portions of this document. Sound-alike and misspelled words, as well as other panelboard assembler errors may be contained in the documentation.
[2022-03-24 11:02] VITALS: BP 141/74; PULSE 72; RESP 18
--- NOTE | 2022-03-24 17:35 | PCM.WC.PN ---
History of Present Illness Date of Service: 03/24/22 Chief Complaint: Right Foot/Heel ulcer History of Wound: Ms. Serra is a 66-year-old known to the wound center who was referred here by her top ironer due to right heel ulcer. Noted about 3 weeks ago. Believes it may have happened following repeated rubbing of her heel on her bed. She has been applying Medihoney however no significant improvement. She believes her last A1c was 7.6. Currently on DB 7 which she states that she takes for diabetes. She states that her numbers have been well controlled until yesterday where she had a reading in the 200s. Follows up with her primary care physician in [place]. Regarding gout also, she denies any significant drainage, chills or feeling of unwell. She is also on budesonide prescribed by GI for ischemic colitis. Subjective Subjective This 67-year-old female follows up at wound care center today for a left transmetatarsal stump wound and right plantar heel wound. She states that she has been taking her oral antibiotics as instructed. She reports that her left foot as not displayed any redness since last week. She denies any constitutional symptoms today. She has no other complaints today. Objective Data Objective Data Vital Signs: Vital Signs Temp Pulse Resp BP 96.2 F L 72 18 141/74 H 03/17/22 11:16 03/24/22 11:02 03/24/22 11:02 03/24/22 11:02 Oxygen Delivery Method Room Air Physical Exam Const alert, oriented x3 and no apparent distress General Appearance: cooperative and comfortable HEENT normocephalic Eyes General Eye: normal appearance of both eyes Neck General: normal visual inspection Lymph Lymphatic: no lymphadenopathy noted and no lymphedema noted Resp normal respiratory effort Cardio regular rate and regular rhythm Extremity normal capillary refill, no joint enlargement, no calf tenderness and no pedal edema Extremity Narrative: Transmetatarsal amputation noted to the left foot Skin no rashes or lesions noted, skin turgor normal and no jaundice Wound Narrative: Right plantar heel demonstrates mixed fiber granular tissue with some serosanguineous drainage. No localized signs of infection Left transmetatarsal stump ulceration demonstrates intact skin well coapted. Surrounding skin healthy appearing with no erythema. No expressible purulent drainage. No signs of infection. Dorsolateral wound site demonstrates healthy red granular tissue with no signs or infection. Neuro oriented x3 and moves all extremities Motor Exam: strength 5/5 throughout Debridement Note Debridement Note Wound debrided: Right plantar heel Laterality: Right Wound Grade/Stage: Hernandez stage III Type of Debridement: Excisional debridement Anesthesia Used: 5% Lidocaine Gel Depth: Down to and including healthy tissue and in the subcutaneous layer Percentage of wound debrided: 100 Instrument Used: 3mm curette Tissue Removed: Fibrous, devitalized subcutaneous, biofilm, slough Severity: Fat Layer Exposed Amount of bleeding with debridement: Mild Bleeding Controlled with: Compression and gauze Patient tolerated procedure: Patient tolerated procedure well Post-Debridement Measurements and Additional Note: Post-Debridement Measurements/Treatment - Nurse 1 - General Ulcer Assessment Start: 03/03/22 12:39 Freq: Status: Active Protocol: [place] Activity Type Activity Date Activity User E-Sign Co-Sign Detail Recorded Client Recorded Date Recorded By Document 03/03/22 12:39 ND [id number] 03/03/22 12:51 ND Document 03/10/22 11:09 [facility] [id number] 03/10/22 11:22 [facility] Document 03/17/22 11:16 [facility] [id number] 03/17/22 11:27 [facility] Document 03/24/22 11:02 AR [id number] 03/24/22 11:16 AR 03/03/22 03/10/22 03/17/22 12:39 11:09 11:16 - Today's Visit Information Type of service Follow-up Visit Follow-up Visit Follow-up Visit (Physician/SEXUAL ABUSE COUNSELLOR (Physician/SEXUAL ABUSE COUNSELLOR (Physician/SEXUAL ABUSE COUNSELLOR ) ) ) Arrival Mode Wheelchair Wheelchair Wheelchair Transfer Assistance Other Other Transfer Assist (Other) stand by stand by Patient Identification Verified (Name & Yes Yes Yes ) Patient Requires Transmission-Based No No Precautions Safety Precautions NA Vital Signs Temperature (97.8 F-99.1 F) 97.3 F L 96.9 F L 96.2 F L Temperature Source Temporal Temporal Temporal Pulse Rate (60-100) 63 71 73 Pulse Location Monitor Monitor Monitor Respiratory Rate (12-18) 16 16 Respiratory rate source Observation Observation Oxygen Delivery Method Room Air Room Air Blood Pressure (90/60-120/80) 138/62 H 164/76 H 151/78 H Blood Pressure Mean (mm Hg) 87 105 102 Source Monitor Monitor Monitor Position Sitting Sitting Blood Pressure Location Right Arm Right Arm History Since Last Visit- (Skip if this is Patient's initial visit) Have you changed medications since your No No No last visit? Any new allergies or adverse reactions No No No Had a fall/change in ADL's that may No No No increase risk of falls Signs or symptoms of abuse and/or No No No neglect since last visit Have you been in the hospital since your No No No last visit? Has dressing in place as prescribed Yes Yes Yes Has compression in place as prescribed Yes Yes Yes Has offloadiing in place as prescribed N/A Yes Yes Experienced any changes in pain level or No No No management Left Footwear Right Footwear Surgical Shoe with pressure relief insole Other Footwear soft socks both feet Pain Scale: 0-10 Numeric Is Patient Pain Free? Yes Yes Yes 03/24/22 11:02 WC - Today's Visit Information Type of service Follow-up Visit (Physician/SEXUAL ABUSE COUNSELLOR ) Arrival Mode Ambulatory Transfer Assistance Transfer Assist (Other) Patient Identification Verified (Name & Yes ) Patient Requires Transmission-Based Precautions Safety Precautions Vital Signs Temperature (97.8 F-99.1 F) Temperature Source Temporal Pulse Rate (60-100) 72 Pulse Location Monitor Respiratory Rate (12-18) 18 Respiratory rate source Observation Oxygen Delivery Method Room Air Blood Pressure (90/60-120/80) 141/74 H Blood Pressure Mean (mm Hg) 96 Source Monitor Position Sitting Blood Pressure Location Right Arm History Since Last Visit- (Skip if this is Patient's initial visit) Have you changed medications since your last visit? Any new allergies or adverse reactions Had a fall/change in ADL's that may increase risk of falls Signs or symptoms of abuse and/or neglect since last visit Have you been in the hospital since your last visit? Has dressing in place as prescribed Yes Has compression in place as prescribed Yes Has offloadiing in place as prescribed Yes Experienced any changes in pain level or Yes management Left Footwear Regular Shoe Right Footwear Regular Shoe Other Footwear Pain Scale: 0-10 Numeric Is Patient Pain Free? Yes - Nurse 1 - General Ulcer Measurement Start: 03/03/22 12:39 Freq: Status: Active Protocol: Activity Type Activity Date Activity User E-Sign Co-Sign Detail Recorded Client Recorded Date Recorded By Document 03/03/22 12:39 AK [id number] 03/03/22 12:51 AK Document 03/10/22 11:09 [facility] [id number] 03/10/22 11:22 [facility] Document 03/17/22 11:16 [facility] [id number] 03/17/22 11:27 [facility] Document 03/24/22 11:02 AR [id number] 03/24/22 11:16 AR 03/03/22 03/10/22 03/17/22 12:39 11:09 11:16 Wound Center Nurse 1 #5 left lateral stump -Combined with other wound No No No -Current Size (cm) - Length 0.1 0.1 0.2 -Current Size (cm) - Width 0.1 0.1 1 -Current Size (cm) - Depth 0.1 0.1 1.5 -Total Square Cm 0.01 0.01 0.2 -Date of Last Picture (Recall this 03/17/22 field) -Photo Taken No Yes -Epithelialization None Present None Present -Tunneling No No -Undermining/Tunneling No No -Circular Undermining No No -Change in Wound Grade/Stage No -Exudate Amt None Present Small -Exudate Type Serosanguineous -Wound Margin Distinct, Distinct, Outline Outline Attached Attached -Granulation Amt None Present (0 Large (67-100%) %) -Granulation Quality N/A Red -Slough/Fibrin No Yes -Necrosis Amt None Present (0 Small (1-33%) %) -Necrotic Tissue Type Adherent Slough -Structure Exposed N/A -Texture (Margy-wound Skin Appearance) No Abnormality, Assessed, Assessed, Assessed Localized Edema Scarring -Moisture (Margy-wound Skin Appearance) No Abnormality, Assessed Assessed, Assessed Maceration -Color (Margy-wound Skin Appearance) No Abnormality, Assessed, Assessed,Palor Assessed Erythema -Temperature (Margy-wound Skin No Abnormality No Abnormality No Abnormality Appearance) (Pt Warm) (Pt Warm) (Pt Warm) -Tenderness on Palpation (Margy-wound No No No Skin Appearance) -Ulcer Cleansing Rinsed/ Soap and Water Irrigated with Saline -Foul Odor after Cleansing No No No -Anesthetic Used 4% Lidocaine 4% Lidocaine Solution Solution -Wound Comment(s) sutures in place 3. R heel -Combined with other wound No No No -Current Size (cm) - Length 0.5 1 0.8 -Current Size (cm) - Width 0.8 1.4 1 -Current Size (cm) - Depth 0.1 0.1 0.2 -Total Square Cm 0.40 1.4 0.8 -Date of Last Picture (Recall this 03/17/22 field) -Photo Taken No No Yes -Epithelialization None Present Small 1-33% Small 1-33% -Tunneling No No No -Undermining/Tunneling No No No -Circular Undermining No No No -Change in Wound Grade/Stage No -Exudate Amt None Present Medium Medium -Exudate Type Purulent Serosanguineous Serosanguineous -Wound Margin Distinct, Distinct, Distinct, Outline Outline Outline Attached Attached Attached -Granulation Amt None Present (0 Medium (34-66%) Small (1-33%) %) -Granulation Quality N/A [place] Red -Slough/Fibrin Yes Yes Yes -Necrosis Amt Small (1-33%) Small (1-33%) Large (67-100%) -Necrotic Tissue Type Adherent Slough Adherent Slough Adherent Slough -Structure Exposed N/A -Texture (Margy-wound Skin Appearance) Assessed,Callus Assessed,Callus Assessed, ,Scarring Scarring -Moisture (Margy-wound Skin Appearance) Assessed Assessed,Dry/ Assessed Scaly -Color (Margy-wound Skin Appearance) Assessed Assessed Assessed -Temperature (Margy-wound Skin No Abnormality No Abnormality No Abnormality Appearance) (Pt Warm) (Pt Warm) (Pt Warm) -Tenderness on Palpation (Margy-wound No No No Skin Appearance) -Ulcer Cleansing Rinsed/ Rinsed/ Soap and Water Irrigated with Irrigated with Saline Saline -Foul Odor after Cleansing No No No -Anesthetic Used 4% Lidocaine 4% Lidocaine 4% Lidocaine Solution Solution Solution Lower Limb Edema Present No 03/24/22 11:02 Wound Center Nurse 1 #5 left lateral stump -Combined with other wound -Current Size (cm) - Length 1.1 -Current Size (cm) - Width 0.5 -Current Size (cm) - Depth 1.3 -Total Square Cm 0.55 -Date of Last Picture (Recall this field) -Photo Taken -Epithelialization -Tunneling -Undermining/Tunneling -Circular Undermining -Change in Wound Grade/Stage -Exudate Amt -Exudate Type -Wound Margin -Granulation Amt Medium (34-66%) -Granulation Quality Pale,[place] -Slough/Fibrin -Necrosis Amt Small (1-33%) -Necrotic Tissue Type Adherent Slough -Structure Exposed -Texture (Margy-wound Skin Appearance) No Abnormality, Assessed -Moisture (Margy-wound Skin Appearance) No Abnormality, Assessed, Maceration -Color (Margy-wound Skin Appearance) No Abnormality, Assessed -Temperature (Margy-wound Skin No Abnormality Appearance) (Pt Warm) -Tenderness on Palpation (Margy-wound No Skin Appearance) -Ulcer Cleansing Soap and Water -Foul Odor after Cleansing No -Anesthetic Used 4% Lidocaine Solution -Wound Comment(s) 3. R heel -Combined with other wound -Current Size (cm) - Length 1.0 -Current Size (cm) - Width 1.0 -Current Size (cm) - Depth 0.2 -Total Square Cm 1.00 -Date of Last Picture (Recall this field) -Photo Taken -Epithelialization -Tunneling -Undermining/Tunneling -Circular Undermining -Change in Wound Grade/Stage -Exudate Amt -Exudate Type -Wound Margin Flat & Intact -Granulation Amt Medium (34-66%) -Granulation Quality Pale,[place] -Slough/Fibrin -Necrosis Amt Medium (34-66%) -Necrotic Tissue Type Adherent Slough -Structure Exposed -Texture (Margy-wound Skin Appearance) Assessed -Moisture (Margy-wound Skin Appearance) Assessed -Color (Margy-wound Skin Appearance) Assessed -Temperature (Margy-wound Skin No Abnormality Appearance) (Pt Warm) -Tenderness on Palpation (Margy-wound No Skin Appearance) -Ulcer Cleansing Rinsed/ Irrigated with Saline -Foul Odor after Cleansing No -Anesthetic Used 4% Lidocaine Solution Lower Limb Edema Present NA WC - Nurse 2 - General Ulcer CM Notes Start: 03/03/22 12:39 Freq: Status: Active Protocol: Activity Type Activity Date Activity User E-Sign Co-Sign Detail Recorded Client Recorded Date Recorded By Document 03/03/22 13:42 NICKY [id number] 03/03/22 13:43 PL Document 03/10/22 11:47 [id number] 03/10/22 11:58 Document 03/17/22 14:23 PL [id number] 03/17/22 14:28 PL Document 03/24/22 13:20 PL [id number] 03/24/22 13:22 PL 03/03/22 03/10/22 03/17/22 13:42 11:47 14:23 Wound Center Nurse 2 #5 left lateral stump -Time 11:55 -Correct Patient No Yes -Correct Side, Site, Position No Yes -Correct Procedure No Yes -Procedure Performed No No Yes -Type of Procedure Incision & Drainage -Clinical Debridement Subcutaneous -Tissue Removed Epidermis, Dermis, Subcutaneous -Post Debridement (cm) - Length 0.2 -Post Debridement (cm) - Width 1.0 -Post Debridement (cm) - Depth 1.5 -Total Square (Post) (cm) 0.20 -Area of Debridement (cm) - Length 0.2 -Area of Debridement (cm) - Width 1 -Total Square (Area) (cm) 0.2 -Tunneling No -Undermining/Tunneling No -Circular Undermining No -Wound/Ulcer Outcome Not Healed Not Healed -Ulcer Cleansing Rinsed/ Irrigated with Saline -Foul Odor after Cleansing No -Bioengineered Tissue No -Injectable Lidocaine (%) 1 -Lidocaine (ml) 5 -Bleeding Controlled with Pressure -Treatment Response Procedure Tolerated Well -Debridement - Subq, 1st 20sq cm No -I&D / Paring / Biopsy I&D abscess - single or simple 3. R heel -Time 11:43 11:54 11:55 -Correct Patient Yes Yes Yes -Correct Side, Site, Position Yes Yes Yes -Correct Procedure Yes Yes Yes -Procedure Performed Yes Yes Yes -Type of Procedure Debridement Debridement Debridement -Clinical Debridement Subcutaneous Subcutaneous Subcutaneous -Tissue Removed Subcutaneous Subcutaneous Subcutaneous -Post Debridement (cm) - Length 0.5 1.0 0.8 -Post Debridement (cm) - Width 0.8 1.5 1.0 -Post Debridement (cm) - Depth 0.1 0.1 0.2 -Total Square (Post) (cm) 0.40 1.50 0.80 -Area of Debridement (cm) - Length 0.5 1.0 0.8 -Area of Debridement (cm) - Width 0.8 1.5 1.0 -Total Square (Area) (cm) 0.40 1.50 0.80 -Tunneling No No No -Undermining/Tunneling No No No -Circular Undermining No No No -Wound/Ulcer Outcome Not Healed Not Healed Not Healed -Ulcer Cleansing Rinsed/ Rinsed/ Rinsed/ Irrigated with Irrigated with Irrigated with Saline Saline Saline -Foul Odor after Cleansing No No No -Bioengineered Tissue No No No -Bleeding Controlled with Pressure Pressure Pressure -Treatment Response Procedure Procedure Procedure Tolerated Well Tolerated Well Tolerated Well -Offloading No -Assistive Device(s) Wheelchair -Debridement - Subq, 1st 20sq cm Yes Yes Yes Pain Scale: 0-10 Numeric Is Patient Pain Free? Yes Yes Yes 03/24/22 13:20 Wound Center Nurse 2 #5 left lateral stump -Time 11:38 -Correct Patient Yes -Correct Side, Site, Position Yes -Correct Procedure Yes -Procedure Performed Yes -Type of Procedure Debridement -Clinical Debridement Subcutaneous -Tissue Removed Subcutaneous -Post Debridement (cm) - Length 1.1 -Post Debridement (cm) - Width 0.5 -Post Debridement (cm) - Depth 1.3 -Total Square (Post) (cm) 0.55 -Area of Debridement (cm) - Length 1.1 -Area of Debridement (cm) - Width 0.5 -Total Square (Area) (cm) 0.55 -Tunneling No -Undermining/Tunneling No -Circular Undermining No -Wound/Ulcer Outcome Not Healed -Ulcer Cleansing Rinsed/ Irrigated with Saline -Foul Odor after Cleansing No -Bioengineered Tissue No -Injectable Lidocaine (%) -Lidocaine (ml) -Bleeding Controlled with Pressure -Treatment Response Procedure Tolerated Well -Debridement - Subq, 1st 20sq cm No -I&D / Paring / Biopsy 3. R heel -Time 11:38 -Correct Patient Yes -Correct Side, Site, Position Yes -Correct Procedure Yes -Procedure Performed Yes -Type of Procedure Debridement -Clinical Debridement Subcutaneous -Tissue Removed Subcutaneous -Post Debridement (cm) - Length 1 -Post Debridement (cm) - Width 1 -Post Debridement (cm) - Depth 0.2 -Total Square (Post) (cm) 1 -Area of Debridement (cm) - Length 1 -Area of Debridement (cm) - Width 1 -Total Square (Area) (cm) 1 -Tunneling No -Undermining/Tunneling No -Circular Undermining No -Wound/Ulcer Outcome Not Healed -Ulcer Cleansing Rinsed/ Irrigated with Saline -Foul Odor after Cleansing No -Bioengineered Tissue No -Bleeding Controlled with Pressure -Treatment Response Procedure Tolerated Well -Offloading -Assistive Device(s) -Debridement - Subq, 1st 20sq cm Yes Pain Scale: 0-10 Numeric Is Patient Pain Free? Yes WC - Nurse 3 - General Ulcer D/C NN Start: 03/03/22 12:39 Freq: Status: Active Protocol: Activity Type Activity Date Activity User E-Sign Co-Sign Detail Recorded Client Recorded Date Recorded By Document 03/03/22 12:39 ND [id number] 03/03/22 12:51 AK Document 03/10/22 12:11 [facility] [id number] 03/10/22 12:13 [facility] Document 03/17/22 12:43 AK [id number] 03/17/22 12:44 AK Document 03/24/22 11:57 KR [id number] 03/24/22 11:58 KR 03/03/22 03/10/22 03/17/22 12:39 12:11 12:43 Vital Signs Temperature (97.8 F-99.1 F) 97.3 F L Temperature Source Temporal Pulse Rate (60-100) 63 Pulse Location Monitor Blood Pressure (90/60-120/80) 138/62 H Blood Pressure Mean (mm Hg) 87 Source Monitor Pain Scale: 0-10 Numeric Is Patient Pain Free? Yes Yes Yes Wound Care Nurse 3 #5 left lateral stump -Ulcer Cleansing Rinsed/ Rinsed/ Irrigated with Irrigated with Saline Saline -Foul Odor after Cleansing No No -Negative Pressure Wound Therapy N/A N/A -Primary Dressing Applied Aquacel AG 4x4, Aquacel Rope Promogran Leighann Matter -Other Dressing EPIFIX -Primary Dressing Covered/Secured with Dry Gauze, Dry Gauze & Dry Gauze & Secured with Roll Gauze, Roll Gauze, Tape Secured with Secured with Tape Tape -Other Covering DRSG PER [place] VP OF MARKETING -Aquacel AG 4x4 1 -Aquacel Rope 1 -Promogran Leighann Matter 1 3. R heel -Ulcer Cleansing Rinsed/ Rinsed/ Rinsed/ Irrigated with Irrigated with Irrigated with Saline Saline Saline -Foul Odor after Cleansing No No No -Negative Pressure Wound Therapy N/A N/A -Primary Dressing Applied Aquacel AG 4x4, Aquacel AG 2x2 Aquacel AG 4x4 Promogran Leighann Matter -Other Dressing DRSG PER [place] VP OF MARKETING ABD -Primary Dressing Covered/Secured with Secured with Dry Gauze & Dry Gauze & Tape Roll Gauze, Roll Gauze, Secured with Secured with Tape,Other Tape -Other Covering HEEL HAT -Aquacel AG 4x4 0 1 -Aquacel AG 2x2 1 -Promogran Leighann Matter 0 BLE -Other PTS OWN SINGLE LAYER TUBIS APPLIED Treatment Response Procedure Tolerated Well WC - Visit Discharge Discharge Condition Stable Stable Stable Ambulatory Status Ambulatory Wheelchair Wheelchair Transportation Private Auto Private Auto Accompanied by ELECTRIC W/C Medication Reconcilliation completed & Yes Yes provided to patient/care provider Clinical Summary of Care Provided Yes Yes 03/24/22 11:57 Vital Signs Temperature (97.8 F-99.1 F) Temperature Source Pulse Rate (60-100) Pulse Location Blood Pressure (90/60-120/80) Blood Pressure Mean (mm Hg) Source Pain Scale: 0-10 Numeric Is Patient Pain Free? Yes Wound Care Nurse 3 #5 left lateral stump -Ulcer Cleansing Rinsed/ Irrigated with Saline -Foul Odor after Cleansing -Negative Pressure Wound Therapy -Primary Dressing Applied Aquacel Rope -Other Dressing -Primary Dressing Covered/Secured with Dry Gauze, Secured with Tape -Other Covering -Aquacel AG 4x4 -Aquacel Rope 1 -Promogran Leighann Matter 3. R heel -Ulcer Cleansing Rinsed/ Irrigated with Saline -Foul Odor after Cleansing -Negative Pressure Wound Therapy -Primary Dressing Applied Aquacel AG 4x4 -Other Dressing -Primary Dressing Covered/Secured with Dry Gauze, Secured with Tape -Other Covering -Aquacel AG 4x4 1 -Aquacel AG 2x2 -Promogran Leighann Matter BLE -Other Treatment Response WC - Visit Discharge Discharge Condition Stable Ambulatory Status Ambulatory Transportation Private Auto Accompanied by Medication Reconcilliation completed & provided to patient/care provider Clinical Summary of Care Provided Additional Wound Wound debrided: Dorsolateral transmetatarsal amputation stump Laterality: Left Wound Grade/Stage: Hernandez stage I Type of Debridement: Excisional debridement Anesthesia Used: 5% Lidocaine Gel Depth: Down to and including healthy tissue and in the subcutaneous layer Percentage of wound debrided: 100 Instrument Used: 3mm curette Tissue Removed: Fibrous, devitalized subcutaneous, biofilm, slough Severity: Fat Layer Exposed Amount of bleeding with debridement: Mild Bleeding Controlled with: Compression and gauze Patient tolerated procedure: Patient tolerated procedure well Assessment/Plan Assessment/Plan (1) Ulcer of amputation stump of foot: CODE(S): T87.89 - Other complications of amputation stump; L97.509 - Non-pressure chronic ulcer of other part of unspecified foot with unspecified severity (2) Decubitus ulcer of right heel, stage 3: CODE(S): L89.613 - Pressure ulcer of right heel, stage 3 (3) Non-pressure chronic ulcer of other part of left foot with fat layer exposed: CODE(S): L97.522 - Non-pressure chronic ulcer of other part of left foot with fat layer exposed (4) Type 2 diabetes mellitus: CODE(S): E11.9 - Type 2 diabetes mellitus without complications (5) Delayed wound healing: CODE(S): T14.8XXD - Other injury of unspecified body region, subsequent encounter (6) PAD (peripheral artery disease): CODE(S): I73.9 - Peripheral vascular disease, unspecified PLAN: This is a 67-year-old female with history of transmetatarsal amputation of the left foot with new open stump ulceration of the site and a right plantar heel ulceration, Hernandez grade 3. Patient is seen and evaluated Debridement performed to right heel ulcer as documented above, procedure was well-tolerated. Right heel dressed with Aquacel Ag and dry sterile dressings. Left foot sutures intact at stump site with no signs of infection. There is a small split in the skin at the most dorsolateral aspect of her transmetatarsl amputation stump. Debridement of the lateral wound site performed as noted above in clinical panel. Site packed with Aquacel Ag rope and dry sterile dressing applied. She was instructed to change the dressings to the site daily and keep them clean, dry, and intact. She is currently on doxycycline 100 mg p.o. twice daily for 10 days. She also gets diarrhea with history of C. difficile upon taking any antibiotics. She is also on oral vancomycin 125 mg p.o. every 6 hours for the next 10 days. She was instructed to take antibiotics with food and to take a probiotic yogurt daily. She will be closely monitored for any changes to the site on her left foot. Optimal diabetes control and continued offloading strongly recommended. She states that her most recent A1C was at 7% and home readings have been over all stable. It is recommended she continue to increase protein intake to optimize healing, she is also supplementing vitamin C and D as discussed per Dr. Barrera. She is to continue Alfredo with collagen protein supplementation to aid in her wound healing. I discussed localized signs of infection for her to observe for. I discussed with her if she experiences any increased redness around the ulcerative site, any malodor from the ulcerative sites, or purulent drainage or if she experiences fever, nausea, or vomiting that these are signs of a progressing infection and she is to report to the ED. She voiced understanding of this. All of her questions were answered to her satisfaction. She was advised to call with any further questions or concerns. She will reappoint to the wound care center in 1 week. Note: The [employer] speech recognition plumbing service technician software was used to create portions of this document. Sound-alike and misspelled words, as well as other plumbing service technician errors may be contained in the documentation.
== END 2022-03-29 23:59 | disposition home or self-care (01) ==
LOC: WC 11:00
PROVIDERS: PCP Family Medicine; Referring Provider Internal Medicine; Visit Provider Student in an Organized Health Care Education/Training Program
DX: E11.621 Type 2 diabetes mellitus with foot ulcer (principal); L89.613 Pressure ulcer of right heel, stage 3; E11.51 Type 2 diabetes mellitus with diabetic peripheral angiopathy without gangrene; Z89.429 Acquired absence of other toe(s), unspecified side; T87.89 Other complications of amputation stump; Y83.5 Amputation of limb(s) as the cause of abnormal reaction of the patient, or of later complication, without mention of misadventure at the time of the procedure; T14.8XXD Other injury of unspecified body region, subsequent encounter
CPT/HCPCS: 10060; 11042

== ENCOUNTER 2022-04-14 11:00 | Outpatient (RCR) | payer MEDICARE, OTHER, SELFPAY ==
[2022-03-30 00:52] VITALS: BP 141/74; PULSE 72; RESP 18; TEMP 35.7
[2022-03-31 11:08] VITALS: BP 145/77; PULSE 63; RESP 18; TEMP 35.8
--- NOTE | 2022-03-31 18:36 | PN.PCM_ITS ---
History of Present Illness Date of Service: 03/31/22 Chief Complaint: Right Foot/Heel ulcer History of Wound: Ms. 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 Noted about 3 weeks ago. Believes it may have happened following repeated rubbing of her heel on her bed. She has been applying Medihoney however no significant improvement. She believes her last A1c was 7.6. Currently on DB 7 which she states that she takes for diabetes. She states that her numbers have been well controlled until yesterday where she had a reading in the 200s. Follows up with her primary care physician in [place]. Regarding gout also, she denies any significant drainage, chills or feeling of unwell. She is also on budesonide prescribed by GI for ischemic colitis. Subjective Subjective This is a 67-year-old female who follows up to the wound care center today for a left transmetatarsal stump wound and right plantar heel wound. She states that she has finished her oral antibiotics as instructed. She denies any constitutional symptoms today. She has no complaints today. Objective Data Objective Data Vital Signs: Vital Signs Temp Pulse Resp BP 96.4 F L 63 18 145/77 H 03/31/22 11:08 03/31/22 11:08 03/31/22 11:08 03/31/22 11:08 Physical Exam Const alert, oriented x3 and no apparent distress General Appearance: cooperative and comfortable HEENT normocephalic Eyes General Eye: normal appearance of both eyes Neck General: normal visual inspection Lymph Lymphatic: no lymphadenopathy noted and no lymphedema noted Resp normal respiratory effort Cardio regular rate and regular rhythm Extremity normal capillary refill, no joint enlargement, no calf tenderness and no pedal edema Extremity Narrative: Transmetatarsal amputation noted to the left foot. Skin no rashes or lesions noted, skin turgor normal and no jaundice Wound Narrative: Right plantar heel demonstrates mixed fibro granular tissue with some serosanguineous drainage. No localized signs of infection. Left transmetatarsal stump ulceration demonstrates a central wound secondary to dehiscence of the lateral stump wound. There is some rubor noted between the 2 wound sites. No expressible purulent drainage or malodor. Neuro oriented x3 Debridement Note Debridement Note Wound debrided: Right heel decubitus ulcer Laterality: Right Wound Grade/Stage: Hernandez stage III Type of Debridement: Selective debridement Anesthesia Used: 5% Lidocaine Gel Depth: Down to and including healthy tissue and in the subcutaneous layer Percentage of wound debrided: 100 Instrument Used: 3mm curette and #15 blade Tissue Removed: Fibrous, devitalized subcutaneous, biofilm, slough Severity: Fat Layer Exposed Amount of bleeding with debridement: Mild Bleeding Controlled with: Compression and gauze Patient tolerated procedure: Patient tolerated procedure well Post-Debridement Measurements and Additional Note: Post-Debridement Measurements/Treatment WC - Nurse 1 - General Ulcer Assessment Start: 03/31/22 11:01 Freq: Status: Active Protocol: [place] Activity Type Activity Date Activity User E-Sign Co-Sign Detail Recorded Client Recorded Date Recorded By Document 03/31/22 11:08 DIONI [id number] 03/31/22 11:16 DIONI 03/31/22 11:08 LEO - Today's Visit Information Type of service Follow-up Visit (Physician/OXYGEN EQUIPMENT TECHNICIAN ) Arrival Mode Ambulatory Patient Identification Verified (Name & Yes ) Patient Requires Transmission-Based No Precautions Vital Signs Temperature (97.8 F-99.1 F) 96.4 F L Temperature Source Temporal Pulse Rate (60-100) 63 Pulse Location Monitor Respiratory Rate (12-18) 18 Respiratory rate source Observation Blood Pressure (90/60-120/80) 145/77 H Blood Pressure Mean (mm Hg) 99 Source Monitor Position Semi-Fowlers Blood Pressure Location Left Arm History Since Last Visit- (Skip if this is Patient's initial visit) Have you changed medications since your No last visit? Any new allergies or adverse reactions No Had a fall/change in ADL's that may No increase risk of falls Signs or symptoms of abuse and/or No neglect since last visit Have you been in the hospital since your No last visit? Has dressing in place as prescribed Yes Has compression in place as prescribed Yes Has offloadiing in place as prescribed Yes Experienced any changes in pain level or No management Left Footwear No Footwear Right Footwear Surgical Shoe with pressure relief insole Pain Scale: 0-10 Numeric Is Patient Pain Free? Yes LEO [place] Nurse 1 - General Ulcer Measurement Start: 03/31/22 11:01 Freq: Status: Active Protocol: Activity Type Activity Date Activity User E-Sign Co-Sign Detail Recorded Client Recorded Date Recorded By Document 03/31/22 11:08 DIONI [id number] 03/31/22 11:16 DIONI 03/31/22 11:08 Wound Center Nurse 1 #5 left lateral stump -Combined with other wound No -Current Size (cm) - Length 0.2 -Current Size (cm) - Width 0.8 -Current Size (cm) - Depth 0.2 -Total Square Cm 0.16 -Photo Taken Yes -Epithelialization None Present -Tunneling No -Undermining/Tunneling No -Circular Undermining No -Exudate Amt Small -Exudate Type Serosanguineous -Wound Margin Flat & Intact -Granulation Amt None Present (0 %) -Slough/Fibrin Yes -Necrosis Amt Large (67-100%) -Necrotic Tissue Type Adherent Slough -Structure Exposed N/A -Texture (Margy-wound Skin Appearance) Assessed -Moisture (Margy-wound Skin Appearance) Assessed,Dry/ Scaly -Color (Margy-wound Skin Appearance) Assessed -Temperature (Margy-wound Skin No Abnormality Appearance) (Pt Warm) -Tenderness on Palpation (Margy-wound Yes Skin Appearance) -Ulcer Cleansing Rinsed/ Irrigated with Saline -Foul Odor after Cleansing No -Anesthetic Used 4% Lidocaine Solution 3. R heel -Combined with other wound No -Current Size (cm) - Length 0.7 -Current Size (cm) - Width 1.3 -Current Size (cm) - Depth 0.2 -Total Square Cm 0.91 -Photo Taken Yes -Epithelialization None Present -Tunneling No -Undermining/Tunneling No -Circular Undermining No -Exudate Amt Small -Exudate Type Serosanguineous -Wound Margin Flat & Intact -Granulation Amt Small (1-33%) -Granulation Quality Red -Slough/Fibrin Yes -Necrosis Amt Medium (34-66%) -Necrotic Tissue Type Adherent Slough -Structure Exposed N/A -Texture (Margy-wound Skin Appearance) Assessed, Localized Edema -Moisture (Margy-wound Skin Appearance) Assessed,Dry/ Scaly -Color (Margy-wound Skin Appearance) Assessed, Ecchymosis -Temperature (Margy-wound Skin No Abnormality Appearance) (Pt Warm) -Tenderness on Palpation (Margy-wound No Skin Appearance) -Ulcer Cleansing Rinsed/ Irrigated with Saline -Foul Odor after Cleansing No -Anesthetic Used 4% Lidocaine Solution Lower Limb Edema Present NA LEO - Nurse 2 - General Ulcer CM Notes Start: 03/31/22 11:01 Freq: Status: Active Protocol: Activity Type Activity Date Activity User E-Sign Co-Sign Detail Recorded Client Recorded Date Recorded By Document 03/31/22 14:52 [email or web address] [id number] 03/31/22 15:01 PL 03/31/22 14:52 Wound Center Nurse 2 #5 left lateral stump -Time 11:39 -Correct Patient Yes -Correct Side, Site, Position Yes -Correct Procedure Yes -Procedure Performed Yes -Type of Procedure Debridement -Clinical Debridement Subcutaneous -Tissue Removed Subcutaneous -Post Debridement (cm) - Length 0.2 -Post Debridement (cm) - Width 0.8 -Post Debridement (cm) - Depth 0.2 -Total Square (Post) (cm) 0.16 -Area of Debridement (cm) - Length 0.2 -Area of Debridement (cm) - Width 0.8 -Total Square (Area) (cm) 0.16 -Tunneling No -Undermining/Tunneling No -Circular Undermining No -Wound/Ulcer Outcome Not Healed -Ulcer Cleansing Rinsed/ Irrigated with Saline -Foul Odor after Cleansing No -Bioengineered Tissue No -Bleeding Controlled with Pressure -Treatment Response Procedure Tolerated Well -Debridement - Subq, 1st 20sq cm No 3. R heel -Time 11:39 -Correct Patient Yes -Correct Side, Site, Position Yes -Correct Procedure Yes -Procedure Performed Yes -Type of Procedure Debridement -Clinical Debridement Subcutaneous -Tissue Removed Subcutaneous -Post Debridement (cm) - Length 0.7 -Post Debridement (cm) - Width 1.3 -Post Debridement (cm) - Depth 0.2 -Total Square (Post) (cm) 0.91 -Area of Debridement (cm) - Length 0.7 -Area of Debridement (cm) - Width 1.3 -Total Square (Area) (cm) 0.91 -Tunneling No -Undermining/Tunneling No -Circular Undermining No -Wound/Ulcer Outcome Not Healed -Ulcer Cleansing Rinsed/ Irrigated with Saline -Foul Odor after Cleansing No -Bioengineered Tissue No -Bleeding Controlled with Pressure -Treatment Response Procedure Tolerated Well -Debridement - Subq, 1st 20sq cm Yes Pain Scale: 0-10 Numeric Is Patient Pain Free? Yes LEO - Nurse 3 - General Ulcer D/C NN Start: 03/31/22 11:01 Freq: Status: Active Protocol: Activity Type Activity Date Activity User E-Sign Co-Sign Detail Recorded Client Recorded Date Recorded By Document 03/31/22 12:25 REECE [id number] 03/31/22 12:26 REECE 03/31/22 12:25 Wound Care Nurse 3 #5 left lateral stump -Ulcer Cleansing Rinsed/ Irrigated with Saline -Foul Odor after Cleansing No -Negative Pressure Wound Therapy N/A -Primary Dressing Applied Aquacel Rope -Primary Dressing Covered/Secured with Dry Gauze & Roll Gauze, Secured with Tape -Aquacel Rope 1 3. R heel -Ulcer Cleansing Rinsed/ Irrigated with Saline -Foul Odor after Cleansing No -Negative Pressure Wound Therapy N/A -Primary Dressing Applied Aquacel AG 4x4 -Primary Dressing Covered/Secured with Dry Gauze & Roll Gauze, Secured with Tape -Aquacel AG 4x4 1 Pain Scale: 0-10 Numeric Is Patient Pain Free? Yes Additional Wound Wound debrided: Left transmetatarsal stump Laterality: Left Wound Grade/Stage: Hernandez stage I Type of Debridement: Excisional debridement Anesthesia Used: 5% Lidocaine Gel Depth: Down to and including healthy tissue and in the subcutaneous layer Percentage of wound debrided: 100 Instrument Used: #15 blade and - (1 mm curette) Tissue Removed: Fibrous, devitalized subcutaneous, biofilm, slough Severity: Fat Layer Exposed Amount of bleeding with debridement: Mild Bleeding Controlled with: Compression and gauze Patient tolerated procedure: Patient tolerated procedure well Assessment/Plan Assessment/Plan (1) Ulcer of amputation stump of foot: CODE(S): T87.89 - Other complications of amputation stump; L97.509 - Non- pressure chronic ulcer of other part of unspecified foot with unspecified severity (2) Decubitus ulcer of right heel, stage 3: CODE(S): L89.613 - Pressure ulcer of right heel, stage 3 (3) Non-pressure chronic ulcer of other part of left foot with fat layer exposed: CODE(S): L97.522 - Non-pressure chronic ulcer of other part of left foot with fat layer exposed (4) Type 2 diabetes mellitus: CODE(S): E11.9 - Type 2 diabetes mellitus without complications (5) Delayed wound healing: CODE(S): T14.8XXD - Other injury of unspecified body region, subsequent encounter (6) PAD (peripheral artery disease): CODE(S): I73.9 - Peripheral vascular disease, unspecified PLAN: This is a 67-year-old female with history of transmetatarsal amputation of the left foot with new open stump ulceration of the site and a right plantar heel ulceration, Hernandez grade 3. Patient is seen and evaluated Debridement performed to right heel ulcer as documented above, procedure was well-tolerated. Right heel dressed with Aquacel Ag and dry sterile dressings. Left foot sutures intact at stump site with no signs of infection. Sutures removed today. There is a small split in the skin at the most dorsolateral aspect of her transmetatarsl amputation stump. Debridement of the lateral wound site performed as noted above in clinical panel. Site packed with Aquacel Ag rope and dry sterile dressing applied. She was instructed to change the dressings to the site daily and keep them clean, dry, and intact. She has completed her course of oral antibiotics. There is still some localized rubor between the 2 stump wounds with no expressible purulence. Sites were flushed with normal sterile saline following debridement. Both sites were packed with Aquacel Ag rope. She will be closely monitored for any changes to the site on her left foot. Optimal diabetes control and continued offloading strongly recommended. She states that her most recent A1C was at 7% and home readings have been over all stable. It is recommended she continue to increase protein intake to optimize healing, she is also supplementing vitamin C and D as discussed per Dr. Barrera. She is to continue Alfredo with collagen protein supplementation to aid in her wound healing. I discussed localized signs of infection for her to observe for. I discussed with her if she experiences any increased redness around the ulcerative site, any malodor from the ulcerative sites, or purulent drainage or if she ex periences fever, nausea, or vomiting that these are signs of a progressing infection and she is to report to the ED. She voiced understanding of this. All of her questions were answered to her satisfaction. She was advised to call with any further questions or concerns. She will reappoint to the wound care center in 1 week. Note: [employer] speech recognition service delivery manager software was used to create portions of this document. Sound-alike and misspelled words, as well as other service delivery manager errors may be contained in the documentation.
[2022-04-07 11:26] VITALS: PULSE 69; TEMP 36.1
--- NOTE | 2022-04-07 15:20 | PN.PCM_ITS ---
History of Present Illness Date of Service: 04/07/22 Chief Complaint: Right Foot/Heel ulcer History of Wound: Ms. Serra is a 66-year-old known to the wound center who was referred here by her dimethylaniline sulfator operator due to right heel ulcer. Noted about 3 weeks ago. Believes it may have happened following repeated rubbing of her heel on her bed. She has been applying Medihoney however no significant improvement. She believes her last A1c was 7.6. Currently on DB 7 which she states that she takes for diabetes. She states that her numbers have been well controlled until yesterday where she had a reading in the 200s. Follows up with her primary care physician in [place]. Regarding gout also, she denies any significant drainage, chills or feeling of unwell. She is also on budesonide prescribed by GI for ischemic colitis. Subjective Subjective This is a 67-year-old female who follows up to the wound care center today for a left transmetatarsal stump wound and right plantar heel wound. She states that she has been placed on Bactrim for a UTI and vancomycin to prevent her C. difficile from recurring. She states that her left lower extremity was swollen over the weekend. She denies any constitutional symptoms today. She has no complaints today. Objective Data Objective Data Vital Signs: Vital Signs Temp Pulse Resp BP 96.9 F L 69 18 145/77 H 04/07/22 11:26 04/07/22 11:26 03/31/22 11:08 03/31/22 11:08 Physical Exam Const alert, oriented x3 and no apparent distress General Appearance: cooperative and comfortable HEENT normocephalic Eyes General Eye: normal appearance of both eyes Neck General: normal visual inspection Lymph Lymphatic: no lymphadenopathy noted and no lymphedema noted Resp normal respiratory effort Cardio regular rate and regular rhythm Extremity normal capillary refill, no joint enlargement, no calf tenderness and no pedal edema Extremity Narrative: Transmetatarsal amputation noted to the left foot. Skin no rashes or lesions noted, skin turgor normal and no jaundice Wound Narrative: Right plantar heel decubitus ulcer demonstrates mixed fibro granular tissue with some serosanguineous drainage and plantar ecchymosis secondary to pressure. No localized signs of infection. Left transmetatarsal stump ulceration demonstrates a central wound secondary to dehiscence of the lateral stump wound. There is some rubor noted between the 2 wound sites. No expressible purulent drainage or malodor. Neuro oriented x3 Debridement Note Debridement Note Wound debrided: Right heel Laterality: Right Wound Grade/Stage: Hernandez stage III Type of Debridement: Excisional debridement Anesthesia Used: 5% Lidocaine Gel Depth: Down to and including healthy tissue and in the subcutaneous layer Percentage of wound debrided: 100 Instrument Used: #15 blade Tissue Removed: Fibrous, devitalized subcutaneous, biofilm, slough Severity: Fat Layer Exposed Amount of bleeding with debridement: Mild Bleeding Controlled with: Compression and gauze Patient tolerated procedure: Patient tolerated procedure well Post-Debridement Measurements and Additional Note: Post-Debridement Measurements/Treatment - Nurse 1 - General Ulcer Assessment Start: 03/31/22 11:01 Freq: Status: Active Protocol: [place] Activity Type Activity Date Activity User E-Sign Co-Sign Detail Recorded Client Recorded Date Recorded By Document 03/31/22 11:08 DIONI [id number] 03/31/22 11:16 DIONI Document 04/07/22 11:26 AK [id number] 04/07/22 11:31 REECE 03/31/22 04/07/22 11:08 11:26 - Today's Visit Information Type of service Follow-up Visit Follow-up Visit (Physician/CHAR HOUSE SUPERVISOR (Physician/CHAR HOUSE SUPERVISOR ) ) Arrival Mode Ambulatory Wheelchair Patient Identification Verified (Name & Yes Yes ) Patient Requires Transmission-Based No No Precautions Safety Precautions NA Vital Signs Temperature (97.8 F-99.1 F) 96.4 F L 96.9 F L Temperature Source Temporal Temporal Pulse Rate (60-100) 63 69 Pulse Location Monitor Monitor Respiratory Rate (12-18) 18 Respiratory rate source Observation Blood Pressure (90/60-120/80) 145/77 H Blood Pressure Mean (mm Hg) 99 Source Monitor Monitor Position Semi-Fowlers Blood Pressure Location Left Arm History Since Last Visit- (Skip if this is Patient's initial visit) Have you changed medications since your No No last visit? Any new allergies or adverse reactions No No Had a fall/change in ADL's that may No No increase risk of falls Signs or symptoms of abuse and/or No No neglect since last visit Have you been in the hospital since your No No last visit? Has dressing in place as prescribed Yes Yes Has compression in place as prescribed Yes Yes Has offloadiing in place as prescribed Yes N/A Experienced any changes in pain level or No No management Left Footwear No Footwear Right Footwear Surgical Shoe with pressure relief insole Pain Scale: 0-10 Numeric Is Patient Pain Free? Yes Yes WC - Nurse 1 - General Ulcer Measurement Start: 03/31/22 11:01 Freq: Status: Active Protocol: Activity Type Activity Date Activity User E-Sign Co-Sign Detail Recorded Client Recorded Date Recorded By Document 03/31/22 11:08 JF [id number] 03/31/22 11:16 JF Document 04/07/22 11:26 AK [id number] 04/07/22 11:31 AK 03/31/22 04/07/22 11:08 11:26 Wound Center Nurse 1 #5 left lateral stump -Combined with other wound No No -Current Size (cm) - Length 0.2 0.5 -Current Size (cm) - Width 0.8 0.5 -Current Size (cm) - Depth 0.2 1 -Total Square Cm 0.16 0.25 -Photo Taken Yes No -Epithelialization None Present -Tunneling No No -Undermining/Tunneling No No -Circular Undermining No No -Change in Wound Grade/Stage No -Exudate Amt Small Large -Exudate Type Serosanguineous Yellow/Green -Wound Margin Flat & Intact Distinct, Outline Attached -Granulation Amt None Present (0 %) -Slough/Fibrin Yes Yes -Necrosis Amt Large (67-100%) Large (67-100%) -Necrotic Tissue Type Adherent Slough Adherent Slough -Structure Exposed N/A N/A -Texture (Margy-wound Skin Appearance) Assessed No Abnormality, Assessed -Moisture (Margy-wound Skin Appearance) Assessed,Dry/ Assessed, Scaly Maceration -Color (Margy-wound Skin Appearance) Assessed No Abnormality, Assessed -Temperature (Margy-wound Skin No Abnormality No Abnormality Appearance) (Pt Warm) (Pt Warm) -Tenderness on Palpation (Margy-wound Yes No Skin Appearance) -Ulcer Cleansing Rinsed/ Rinsed/ Irrigated with Irrigated with Saline Saline -Foul Odor after Cleansing No No -Anesthetic Used 4% Lidocaine 4% Lidocaine Solution Solution 3. R heel -Combined with other wound No No -Current Size (cm) - Length 0.7 1 -Current Size (cm) - Width 1.3 2 -Current Size (cm) - Depth 0.2 0.1 -Total Square Cm 0.91 2 -Photo Taken Yes No -Epithelialization None Present -Tunneling No No -Undermining/Tunneling No No -Circular Undermining No No -Change in Wound Grade/Stage No -Exudate Amt Small Medium -Exudate Type Serosanguineous Serosanguineous -Wound Margin Flat & Intact Distinct, Outline Attached -Granulation Amt Small (1-33%) -Granulation Quality Red -Slough/Fibrin Yes -Necrosis Amt Medium (34-66%) Medium (34-66%) -Necrotic Tissue Type Adherent Slough Adherent Slough -Structure Exposed N/A N/A -Texture (Margy-wound Skin Appearance) Assessed, Assessed,Callus Localized Edema ,Excoriation -Moisture (Margy-wound Skin Appearance) Assessed,Dry/ Assessed, Scaly Maceration -Color (Margy-wound Skin Appearance) Assessed, Assessed, Ecchymosis Erythema -Temperature (Margy-wound Skin No Abnormality No Abnormality Appearance) (Pt Warm) (Pt Warm) -Tenderness on Palpation (Margy-wound No No Skin Appearance) -Ulcer Cleansing Rinsed/ Rinsed/ Irrigated with Irrigated with Saline Saline -Foul Odor after Cleansing No No -Anesthetic Used 4% Lidocaine 4% Lidocaine Solution Solution Lower Limb Edema Present NA No Left Calf (cm) 35 Left Ankle (cm) 24.6 WC - Nurse 2 - General Ulcer CM Notes Start: 03/31/22 11:01 Freq: Status: Active Protocol: Activity Type Activity Date Activity User E-Sign Co-Sign Detail Recorded Client Recorded Date Recorded By Document 03/31/22 14:52 NICKY [id number] 03/31/22 15:01 PL Document 04/07/22 11:59 [id number] 04/07/22 12:12 DIONI 03/31/22 04/07/22 14:52 11:59 Wound Center Nurse 2 #5 left lateral stump -Time 11:39 11:59 -Correct Patient Yes Yes -Correct Side, Site, Position Yes Yes -Correct Procedure Yes Yes -Procedure Performed Yes Yes -Type of Procedure Debridement Debridement -Clinical Debridement Subcutaneous Subcutaneous -Tissue Removed Subcutaneous Subcutaneous -Post Debridement (cm) - Length 0.2 1.0 -Post Debridement (cm) - Width 0.8 1.1 -Post Debridement (cm) - Depth 0.2 1.0 -Total Square (Post) (cm) 0.16 1.10 -Area of Debridement (cm) - Length 0.2 1.0 -Area of Debridement (cm) - Width 0.8 1.1 -Total Square (Area) (cm) 0.16 1.10 -Tunneling No No -Undermining/Tunneling No No -Circular Undermining No No -Wound/Ulcer Outcome Not Healed Not Healed -Ulcer Cleansing Rinsed/ Rinsed/ Irrigated with Irrigated with Saline Saline -Foul Odor after Cleansing No No -Bioengineered Tissue No No -Bleeding Controlled with Pressure Pressure -Treatment Response Procedure Procedure Tolerated Well Tolerated Well -Offloading Yes -Type of Offloading Surgical Shoe -Debridement - Subq, 1st 20sq cm No Yes 3. R heel -Time 11:39 12:00 -Correct Patient Yes Yes -Correct Side, Site, Position Yes Yes -Correct Procedure Yes Yes -Procedure Performed Yes Yes -Type of Procedure Debridement Debridement -Clinical Debridement Subcutaneous Subcutaneous -Tissue Removed Subcutaneous Subcutaneous -Post Debridement (cm) - Length 0.7 3.0 -Post Debridement (cm) - Width 1.3 3.0 -Post Debridement (cm) - Depth 0.2 0.1 -Total Square (Post) (cm) 0.91 9.00 -Area of Debridement (cm) - Length 0.7 3.0 -Area of Debridement (cm) - Width 1.3 3.0 -Total Square (Area) (cm) 0.91 9.00 -Tunneling No No -Undermining/Tunneling No No -Circular Undermining No No -Wound/Ulcer Outcome Not Healed Not Healed -Ulcer Cleansing Rinsed/ Rinsed/ Irrigated with Irrigated with Saline Saline -Foul Odor after Cleansing No No -Bioengineered Tissue No No -Bleeding Controlled with Pressure Pressure -Treatment Response Procedure Procedure Tolerated Well Tolerated Well -Offloading Yes -Type of Offloading Surgical Shoe -Debridement - Subq, 1st 20sq cm Yes No Pain Scale: 0-10 Numeric Is Patient Pain Free? Yes Yes WC - Nurse 3 - General Ulcer D/C NN Start: 03/31/22 11:01 Freq: Status: Active Protocol: Activity Type Activity Date Activity User E-Sign Co-Sign Detail Recorded Client Recorded Date Recorded By Document 03/31/22 12:25 REECE [id number] 03/31/22 12:26 AK Document 04/07/22 12:31 AK [id number] 04/07/22 12:32 AK 03/31/22 04/07/22 12:25 12:31 Wound Care Nurse 3 #5 left lateral stump -Ulcer Cleansing Rinsed/ Rinsed/ Irrigated with Irrigated with Saline Saline -Foul Odor after Cleansing No No -Negative Pressure Wound Therapy N/A N/A -Primary Dressing Applied Aquacel Rope Aquacel AG 4x4 -Primary Dressing Covered/Secured with Dry Gauze & Dry Gauze & Roll Gauze, Roll Gauze, Secured with Secured with Tape Tape -Aquacel AG 4x4 1 -Aquacel Rope 1 3. R heel -Ulcer Cleansing Rinsed/ Rinsed/ Irrigated with Irrigated with Saline Saline -Foul Odor after Cleansing No No -Negative Pressure Wound Therapy N/A N/A -Primary Dressing Applied Aquacel AG 4x4 Aquacel AG 4x4 -Primary Dressing Covered/Secured with Dry Gauze & Dry Gauze & Roll Gauze, Roll Gauze, Secured with Secured with Tape Tape -Aquacel AG 4x4 1 1 Pain Scale: 0-10 Numeric Is Patient Pain Free? Yes Yes WC - Visit Discharge Discharge Condition Stable Ambulatory Status Wheelchair Transportation Private Auto Medication Reconcilliation completed & Yes provided to patient/care provider Clinical Summary of Care Provided Yes Additional Wound Wound debrided: Left transmetatarsal stump Laterality: Left Wound Grade/Stage: Hernandez stage I Type of Debridement: Excisional debridement Anesthesia Used: 5% Lidocaine Gel Depth: Down to and including healthy tissue and in the subcutaneous layer Percentage of wound debrided: 100 Instrument Used: #15 blade and - (1 mm curette) Tissue Removed: Fibrous, devitalized subcutaneous, biofilm, slough Severity: Fat Layer Exposed Amount of bleeding with debridement: Mild Bleeding Controlled with: Compression and gauze Patient tolerated procedure: Patient tolerated procedure well Assessment/Plan Assessment/Plan (1) Ulcer of amputation stump of foot: CODE(S): T87.89 - Other complications of amputation stump; L97.509 - Non- pressure chronic ulcer of other part of unspecified foot with unspecified severity (2) Decubitus ulcer of right heel, stage 3: CODE(S): L89.613 - Pressure ulcer of right heel, stage 3 (3) Non-pressure chronic ulcer of other part of left foot with fat layer exposed: CODE(S): L97.522 - Non-pressure chronic ulcer of other part of left foot with fat layer exposed (4) Type 2 diabetes mellitus: CODE(S): E11.9 - Type 2 diabetes mellitus without complications (5) Delayed wound healing: CODE(S): T14.8XXD - Other injury of unspecified body region, subsequent encounter (6) PAD (peripheral artery disease): CODE(S): I73.9 - Peripheral vascular disease, unspecified PLAN: This is a 67-year-old female with history of transmetatarsal amputation of the left foot with new open stump ulceration of the site and a right plantar heel ulceration, Hernandez grade 3. Patient is seen and evaluated Debridement performed to right heel ulcer as documented above, procedure was well-tolerated. Right heel dressed with Aquacel Ag, double nurse hat, and dry sterile dressings, with a 4 and a 6 inch Demetrio wrap to aid in control of edema. There is a small split in the skin at the most dorsolateral aspect of her transmetatarsl amputation stump of the left foot. Debridement of the lateral wound site performed as noted above in clinical panel. Site packed with Aquacel Ag rope and dry sterile dressing applied. She was instructed to change the dressings to the site daily and keep them clean, dry, and intact. [facility] wound VAC was ordered for the left foot, when this arrives she will apply VAC bridging the 2 sites and dress foot with dry sterile dressing and a 4 inch Demetrio wrap and 6 inch Demetrio wrap to aid in edema control. She has has been placed on oral Bactrim for a UTI and oral vancomycin for her recurrent C. difficile. There is still some localized rubor between the 2 stump wounds with no expressible purulence. Sites were flushed with normal sterile saline following debridement. Both sites were packed with Aquacel Ag rope. She will be closely monitored for any changes to the site on her left foot. She was advised to get a offloading removable leg doughnut to elevate the heel while she rests in bed. I discussed that pressure reduction is essential for her right heel ulceration. Optimal diabetes control and continued offloading strongly recommended. She states that her most recent A1C was at 7% and home readings have been over all stable. It is recommended she continue to increase protein intake to optimize healing, she is also supplementing vitamin C and D as discussed per Dr. Barrera. She is to continue Alfredo with collagen protein supplementation to aid in her wound healing. I discussed localized signs of infection for her to observe for. I discussed with her if she experiences any increased redness around the ulcerative site, any malodor from the ulcerative sites, or purulent drainage or if she experiences fever, nausea, or vomiting that these are signs of a progressing infection and she is to report to the ED. She voiced understanding of this. All of her questions were answered to her satisfaction. She was advised to call with any further questions or concerns. She will reappoint to the wound care center in 1 week. Note: [employer] speech recognition pharmacy informatics manager software was used to create portions of this document. Sound-alike and misspelled words, as well as other pharmacy informatics manager errors may be contained in the documentation.
[2022-04-14 11:01] VITALS: BP 191/83; PULSE 70; RESP 16; TEMP 35.5
--- NOTE | 2022-04-14 11:36 | PN.PCM_ITS ---
History of Present Illness Date of Service: 04/14/22 Chief Complaint: Right Foot/Heel ulcer History of Wound: Ms. Serra is a 66-year-old known to the wound center who was referred here by her warp dyeing tender due to right heel ulcer. Noted about 3 weeks ago. Believes it may have happened following repeated rubbing of her heel on her bed. She has been applying Medihoney however no significant improvement. She believes her last A1c was 7.6. Currently on DB 7 which she states that she takes for diabetes. She states that her numbers have been well controlled until yesterday where she had a reading in the 200s. Follows up with her primary care physician in [place]. Regarding gout also, she denies any significant drainage, chills or feeling of unwell. She is also on budesonide prescribed by GI for ischemic colitis. Subjective Subjective This is a 67-year-old female who presents to the wound care center today for follow up of a left transmetatarsal stump wound and right plantar heel wound.? She states she also will be seeing Dr. Barrera today for another wound.?She states she also developed a new blister to her Left heel. She also states her UTI is not improving and she may have to be admitted for IV antibiotics. She de nies any constitutional symptoms today. She has no complaints today. Objective Data Objective Data Vital Signs: Vital Signs Temp Pulse Resp BP 95.9 F L 70 16 191/83 H 04/14/22 11:01 04/14/22 11:01 04/14/22 11:01 04/14/22 11:01 Oxygen Delivery Method Room Air Physical Exam Const alert, oriented x3 and no apparent distress General Appearance: cooperative and comfortable HEENT normocephalic Eyes General Eye: normal appearance of both eyes Neck General: normal visual inspection Lymph Lymphatic: no lymphadenopathy noted and no lymphedema noted Resp normal respiratory effort Cardio regular rate and regular rhythm Extremity normal capillary refill, no joint enlargement, no calf tenderness and no pedal edema Extremity Narrative: Transmetatarsal amputation noted to the left foot. Skin no rashes or lesions noted, skin turgor normal and no jaundice Wound Narrative: Right plantar heel decubitus ulcer demonstrates mixed fibro granular tissue with some serosanguineous drainage and plantar ecchymosis secondary to pressure. No localized signs of infection. Left heel demonstrates ulceration secondary to edema. No signs of infection. Left transmetatarsal stump ulceration demonstrates a central wound secondary to dehiscence of the lateral stump wound. There is some rubor noted between the 2 wound sites. No expressible purulent drainage or malodor. Neuro oriented x3 Debridement Note Debridement Note Wound debrided: Right heel decubitus ulceration Laterality: Right Wound Grade/Stage: Hernandez stage III Type of Debridement: Excisional debridement Anesthesia Used: 5% Lidocaine Gel Depth: Down to and including healthy tissue and in the subcutaneous layer Percentage of wound debrided: 100 Instrument Used: 3mm curette Tissue Removed: Fibrous, devitalized subcutaneous, biofilm, slough Severity: Fat Layer Exposed Amount of bleeding with debridement: Mild Bleeding Controlled with: Compression and gauze Patient tolerated procedure: Patient tolerated procedure well Post-Debridement Measurements and Additional Note: Post-Debridement Measurements/Treatment - Nurse 1 - General Ulcer Assessment Start: 03/31/22 11:01 Freq: Status: Active Protocol: [place] Activity Type Activity Date Activity User E-sign Co-sign Detail Recorded Client Recorded Date Recorded By Document 03/31/22 11:08 [id number] 03/31/22 11:16 Document 04/07/22 11:26 CT [id number] 04/07/22 11:31 CT Document 04/14/22 11:01 [facility] [id number] 04/14/22 11:18 [facility] 03/31/22 04/07/22 04/14/22 11:08 11:26 11:01 - Today's Visit Information Type of service Follow-up Visit Follow-up Visit Follow-up Visit (Physician/WET SANDER (Physician/WET SANDER (Physician/WET SANDER ) ) ) Arrival Mode Ambulatory Wheelchair Wheelchair Transfer Assistance None Patient Identification Verified (Name & Yes Yes Yes ) Patient Requires Transmission-Based No No No Precautions Safety Precautions NA Vital Signs Temperature (97.8 F-99.1 F) 96.4 F L 96.9 F L 95.9 F L Temperature Source Temporal Temporal Temporal Pulse Rate (60-100) 63 69 70 Pulse Location Monitor Monitor Monitor Respiratory Rate (12-18) 18 16 Respiratory rate source Observation Observation Oxygen Delivery Method Room Air Blood Pressure (90/60-120/80) 145/77 H 191/83 H Blood Pressure Mean (mm Hg) 99 119 Source Monitor Monitor Monitor Position Semi-Fowlers Sitting Blood Pressure Location Left Arm History Since Last Visit- (Skip if this is Patient's initial visit) Have you changed medications since your No No No last visit? Any new allergies or adverse reactions No No No Had a fall/change in ADL's that may No No No increase risk of falls Signs or symptoms of abuse and/or No No No neglect since last visit Have you been in the hospital since your No No No last visit? Has dressing in place as prescribed Yes Yes Yes Has compression in place as prescribed Yes Yes N/A Has offloadiing in place as prescribed Yes N/A N/A Experienced any changes in pain level or No No No management Left Footwear No Footwear Right Footwear Surgical Shoe with pressure relief insole Pain Scale: 0-10 Numeric Is Patient Pain Free? Yes Yes No r groin/thigh -Description Sharp,Burning -Intensity 8 -Duration (hours) Acute -Pain Behavior Facial Grimacing -Pain Aggravating Factors Sitting -Alleviating Factors/Interventions Distraction, Will continue to monitor, Patient denies need for intervention, Emotional Support WC - Nurse 1 - General Ulcer Measurement Start: 03/31/22 11:01 Freq: Status: Active Protocol: Activity Type Activity Date Activity User E-sign Co-sign Detail Recorded Client Recorded Date Recorded By Document 03/31/22 11:08 [id number] 03/31/22 11:16 Document 04/07/22 11:26 CT [id number] 04/07/22 11:31 [place] Document 04/14/22 11:01 [facility] [id number] 04/14/22 11:18 [facility] 03/31/22 04/07/22 04/14/22 11:08 11:26 11:01 Wound Center Nurse 1 #6- L BUTTOCK -Combined with other wound No -Current Size (cm) - Length 0.5 -Current Size (cm) - Width 0.6 -Current Size (cm) - Depth 0.1 -Total Square Cm 0.30 -Date of Last Picture (Recall this 04/14/22 field) -Photo Taken Yes -Epithelialization None Present -Tunneling No -Undermining/Tunneling No -Circular Undermining No -Exudate Amt Small -Exudate Type Serosanguineous -Wound Margin Distinct, Outline Attached -Granulation Amt Large (67-100%) -Granulation Quality Red -Slough/Fibrin No -Necrosis Amt None Present (0 %) -Texture (Margy-wound Skin Appearance) Assessed -Moisture (Margy-wound Skin Appearance) Assessed -Color (Margy-wound Skin Appearance) Assessed, Erythema -Temperature (Margy-wound Skin No Abnormality Appearance) (Pt Warm) -Tenderness on Palpation (Margy-wound No Skin Appearance) -Ulcer Cleansing Rinsed/ Irrigated with Saline -Foul Odor after Cleansing No -Anesthetic Used 5% Lidocaine Gel #5 left lateral stump -Combined with other wound No No No -Current Size (cm) - Length 0.2 0.5 1 -Current Size (cm) - Width 0.8 0.5 4 -Current Size (cm) - Depth 0.2 1 0.5 -Total Square Cm 0.16 0.25 4 -Date of Last Picture (Recall this 04/14/22 field) -Photo Taken Yes No Yes -Epithelialization None Present None Present -Tunneling No No No -Undermining/Tunneling No No No -Circular Undermining No No No -Change in Wound Grade/Stage No -Exudate Amt Small Large Medium -Exudate Type Serosanguineous Yellow/Green Serosanguineous -Wound Margin Flat & Intact Distinct, Distinct, Outline Outline Attached Attached -Granulation Amt None Present (0 Small (1-33%) %) -Granulation Quality Red -Slough/Fibrin Yes Yes Yes -Necrosis Amt Large (67-100%) Large (67-100%) Large (67-100%) -Necrotic Tissue Type Adherent Slough Adherent Slough Adherent Slough -Structure Exposed N/A N/A -Texture (Margy-wound Skin Appearance) Assessed No Abnormality, Assessed, Assessed Scarring -Moisture (Margy-wound Skin Appearance) Assessed,Dry/ Assessed, Assessed Scaly Maceration -Color (Margy-wound Skin Appearance) Assessed No Abnormality, Assessed, Assessed Erythema -Temperature (Margy-wound Skin No Abnormality No Abnormality No Abnormality Appearance) (Pt Warm) (Pt Warm) (Pt Warm) -Tenderness on Palpation (Margy-wound Yes No No Skin Appearance) -Ulcer Cleansing Rinsed/ Rinsed/ Rinsed/ Irrigated with Irrigated with Irrigated with Saline Saline Saline -Foul Odor after Cleansing No No No -Anesthetic Used 4% Lidocaine 4% Lidocaine 5% Lidocaine Solution Solution Gel 3. R heel -Combined with other wound No No No -Current Size (cm) - Length 0.7 1 3.5 -Current Size (cm) - Width 1.3 2 3.3 -Current Size (cm) - Depth 0.2 0.1 0.1 -Total Square Cm 0.91 2 11.55 -Date of Last Picture (Recall this 04/14/22 field) -Photo Taken Yes No -Epithelialization None Present None Present -Tunneling No No No -Undermining/Tunneling No No No -Circular Undermining No No No -Change in Wound Grade/Stage No -Exudate Amt Small Medium Medium -Exudate Type Serosanguineous Serosanguineous Serosanguineous -Wound Margin Flat & Intact Distinct, Distinct, Outline Outline Attached Attached -Granulation Amt Small (1-33%) Medium (34-66%) -Granulation Quality Red Red -Slough/Fibrin Yes Yes -Necrosis Amt Medium (34-66%) Medium (34-66%) Medium (34-66%) -Necrotic Tissue Type Adherent Slough Adherent Slough Eschar -Structure Exposed N/A N/A -Texture (Margy-wound Skin Appearance) Assessed, Assessed,Callus Assessed, Localized Edema ,Excoriation Scarring -Moisture (Margy-wound Skin Appearance) Assessed,Dry/ Assessed, Assessed Scaly Maceration -Color (Margy-wound Skin Appearance) Assessed, Assessed, Assessed, Ecchymosis Erythema Erythema -Temperature (Margy-wound Skin No Abnormality No Abnormality No Abnormality Appearance) (Pt Warm) (Pt Warm) (Pt Warm) -Tenderness on Palpation (Margy-wound No No No Skin Appearance) -Ulcer Cleansing Rinsed/ Rinsed/ Rinsed/ Irrigated with Irrigated with Irrigated with Saline Saline Saline -Foul Odor after Cleansing No No No -Anesthetic Used 4% Lidocaine 4% Lidocaine 5% Lidocaine Solution Solution Gel Lower Limb Edema Present NA No Left Calf (cm) 35 Left Ankle (cm) 24.6 WC - Nurse 2 - General Ulcer CM Notes Start: 03/31/22 11:01 Freq: Status: Active Protocol: Activity Type Activity Date Activity User E-sign Co-sign Detail Recorded Client Recorded Date Recorded By Document 03/31/22 14:52 PL [id number] 03/31/22 15:01 PL Document 04/07/22 11:59 [id number] 04/07/22 12:12 JF Document 04/14/22 11:26 MW [id number] 04/14/22 11:30 MW 03/31/22 04/07/22 04/14/22 14:52 11:59 11:26 Wound Center Nurse 2 #6- L BUTTOCK -Time 11:26 -Correct Patient Yes -Correct Side, Site, Position Yes -Correct Procedure Yes -Procedure Performed Yes -Type of Procedure Debridement -Clinical Debridement Subcutaneous -Tissue Removed Subcutaneous -Post Debridement (cm) - Length 0.5 -Post Debridement (cm) - Width 0.5 -Post Debridement (cm) - Depth 0.1 -Total Square (Post) (cm) 0.25 -Area of Debridement (cm) - Length 0.5 -Area of Debridement (cm) - Width 0.5 -Total Square (Area) (cm) 0.25 -Tunneling No -Undermining/Tunneling No -Circular Undermining No -Wound/Ulcer Outcome Not Healed -Ulcer Cleansing Rinsed/ Irrigated with Saline -Foul Odor after Cleansing No -Bioengineered Tissue No -Bleeding Controlled with Pressure -Treatment Response Procedure Tolerated Well -Offloading No -Debridement - Subq, 1st 20sq cm Yes #5 left lateral stump -Time 11:39 11:59 -Correct Patient Yes Yes -Correct Side, Site, Position Yes Yes -Correct Procedure Yes Yes -Procedure Performed Yes Yes -Type of Procedure Debridement Debridement -Clinical Debridement Subcutaneous Subcutaneous -Tissue Removed Subcutaneous Subcutaneous -Post Debridement (cm) - Length 0.2 1.0 -Post Debridement (cm) - Width 0.8 1.1 -Post Debridement (cm) - Depth 0.2 1.0 -Total Square (Post) (cm) 0.16 1.10 -Area of Debridement (cm) - Length 0.2 1.0 -Area of Debridement (cm) - Width 0.8 1.1 -Total Square (Area) (cm) 0.16 1.10 -Tunneling No No -Undermining/Tunneling No No -Circular Undermining No No -Wound/Ulcer Outcome Not Healed Not Healed -Ulcer Cleansing Rinsed/ Rinsed/ Irrigated with Irrigated with Saline Saline -Foul Odor after Cleansing No No -Bioengineered Tissue No No -Bleeding Controlled with Pressure Pressure -Treatment Response Procedure Procedure Tolerated Well Tolerated Well -Offloading Yes -Type of Offloading Surgical Shoe -Debridement - Subq, 1st 20sq cm No Yes 3. R heel -Time 11:39 12:00 -Correct Patient Yes Yes -Correct Side, Site, Position Yes Yes -Correct Procedure Yes Yes -Procedure Performed Yes Yes -Type of Procedure Debridement Debridement -Clinical Debridement Subcutaneous Subcutaneous -Tissue Removed Subcutaneous Subcutaneous -Post Debridement (cm) - Length 0.7 3.0 -Post Debridement (cm) - Width 1.3 3.0 -Post Debridement (cm) - Depth 0.2 0.1 -Total Square (Post) (cm) 0.91 9.00 -Area of Debridement (cm) - Length 0.7 3.0 -Area of Debridement (cm) - Width 1.3 3.0 -Total Square (Area) (cm) 0.91 9.00 -Tunneling No No -Undermining/Tunneling No No -Circular Undermining No No -Wound/Ulcer Outcome Not Healed Not Healed -Ulcer Cleansing Rinsed/ Rinsed/ Irrigated with Irrigated with Saline Saline -Foul Odor after Cleansing No No -Bioengineered Tissue No No -Bleeding Controlled with Pressure Pressure -Treatment Response Procedure Procedure Tolerated Well Tolerated Well -Offloading Yes -Type of Offloading Surgical Shoe -Debridement - Subq, 1st 20sq cm Yes No Pain Scale: 0-10 Numeric Is Patient Pain Free? Yes Yes Yes WC - Nurse 3 - General Ulcer D/C NN Start: 03/31/22 11:01 Freq: Status: Active Protocol: Activity Type Activity Date Activity User E-sign Co-sign Detail Recorded Client Recorded Date Recorded By Document 03/31/22 12:25 REECE [id number] 03/31/22 12:26 [place] Document 04/07/22 12:31 REECE [id number] 04/07/22 12:32 AK 03/31/22 04/07/22 12:25 12:31 Wound Care Nurse 3 #5 left lateral stump -Ulcer Cleansing Rinsed/ Rinsed/ Irrigated with Irrigated with Saline Saline -Foul Odor after Cleansing No No -Negative Pressure Wound Therapy N/A N/A -Primary Dressing Applied Aquacel Rope Aquacel AG 4x4 -Primary Dressing Covered/Secured with Dry Gauze & Dry Gauze & Roll Gauze, Roll Gauze, Secured with Secured with Tape Tape -Aquacel AG 4x4 1 -Aquacel Rope 1 3. R heel -Ulcer Cleansing Rinsed/ Rinsed/ Irrigated with Irrigated with Saline Saline -Foul Odor after Cleansing No No -Negative Pressure Wound Therapy N/A N/A -Primary Dressing Applied Aquacel AG 4x4 Aquacel AG 4x4 -Primary Dressing Covered/Secured with Dry Gauze & Dry Gauze & Roll Gauze, Roll Gauze, Secured with Secured with Tape Tape -Aquacel AG 4x4 1 1 Pain Scale: 0-10 Numeric Is Patient Pain Free? Yes Yes WC - Visit Discharge Discharge Condition Stable Ambulatory Status Wheelchair Transportation Private Auto Medication Reconcilliation completed & Yes provided to patient/care provider Clinical Summary of Care Provided Yes Additional Wound Wound debrided: Left transmetatarsal stump Laterality: Left Wound Grade/Stage: Hernandez stage II Type of Debridement: Selective debridement Anesthesia Used: 5% Lidocaine Gel Depth: Down to and including healthy tissue and in the subcutaneous layer Percentage of wound debrided: 100 Instrument Used: 3mm curette Tissue Removed: Fibrous, devitalized subcutaneous, biofilm, slough Severity: Fat Layer Exposed Amount of bleeding with debridement: Mild Bleeding Controlled with: Compression and gauze Patient tolerated procedure: Patient tolerated procedure well Assessment/Plan Assessment/Plan (1) Ulcer of amputation stump of foot: CODE(S): T87.89 - Other complications of amputation stump; L97.509 - Non- pressure chronic ulcer of other part of unspecified foot with unspecified severity (2) Decubitus ulcer of right heel, stage 3: CODE(S): L89.613 - Pressure ulcer of right heel, stage 3 (3) Non-pressure chronic ulcer of other part of left foot with fat layer exposed: CODE(S): L97.522 - Non-pressure chronic ulcer of other part of left foot with fat layer exposed (4) Type 2 diabetes mellitus: CODE(S): E11.9 - Type 2 diabetes mellitus without complications (5) Delayed wound healing: CODE(S): T14.8XXD - Other injury of unspecified body region, subsequent encounter (6) PAD (peripheral artery disease): CODE(S): I73.9 - Peripheral vascular disease, unspecified (7) Decubitus ulcer of left heel, stage 1: CODE(S): L89.621 - Pressure ulcer of left heel, stage 1 PLAN: Plan This is a 67-year-old female with history of transmetatarsal amputation of the left foot with new open stump ulceration of the site and a right plantar heel ulceration, Hernandez grade 3. Patient is seen and evaluated Debridement performed to right heel ulcer as documented above, procedure was well-tolerated. Right heel dressed with Aquacel Ag, double nurse hat, and dry sterile dressings, with a 4 and a 6 inch Demetrio wrap to aid in control of edema. She has developed a subsequent decubitus ulceration to the left heel with blister formation secondary to her edema. Blister site was drained utilizing a #10 blade. No signs of infection There is a small split in the skin at the most dorsolateral aspect of her transmetatarsl amputation stump of the left foot and a central wound at the TMA site. Debridement of the lateral and central wound site performed as noted above in clinical panel. There is still some localized rubor between the 2 stump wounds with no expressible purulence, rubor has improved since last visit. Sites were flushed with normal sterile saline following debridement. KCI wound VAC applied to both central and dorsal lateral wounds packing wound sites and bridging the 2 sites with the foam. VAC setting intact 175 mmHg of continuous pressure. VAC to be changed every 3 days. She has been told to discontinue her oral Bactrim for her UTI. 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 She informs me that if her UTI does not clear with his next round of antibiotics she would need to be admitted for IV antibiotics. She will be closely monitored for any changes to the site on her left foot. She has been wearing her removable leg doughnut to elevate and offload the heel while she rests in bed. I discussed that pressure reduction is essential for her right heel ulceration. I recommended she get another one for her left heel. Optimal diabetes control and continued offloading strongly recommended. She states that her most recent A1C was at 7% and home readings have been over all stable. It is recommended she continue to increase protein intake to optimize healing, she is also supplementing vitamin C and D as discussed per Dr. Barrera. She is to continue Alfredo with collagen protein supplementation to aid in her wound healing. I discussed localized signs of infection for her to observe for. I discussed with her if she experiences any increased redness around the ulcerative site, any malodor from the ulcerative sites, or purulent drainage or if she experiences fever, nausea, or vomiting that these are signs of a progressing infection and she is to report to the ED. She voiced understanding of this. All of her questions were answered to her satisfaction. She was advised to call with any further questions or concerns. She will reappoint to the wound care center in 2 weeks. Note: [employer] speech recognition forest landscape ecology professor software was used to create portions of this document. Sound-alike and misspelled words, as well as other forest landscape ecology professor errors may be contained in the documentation.
--- NOTE | 2022-04-14 12:41 | PCM.WC.HP ---
History of Present Illness Date of Service: 04/14/22 Chief Complaint: Left buttock Ulcer History of Wound: Zulay Serra is a 67-year-old who presents due to a new left buttock Ulcer. Believes it has been present for days. Not sure how it started but she reports pain in her hips and so has not been moving her extremities really well due to the pain. Has not really put anything in the area at this time. History of diabetes mellitus type 2. Being managed by podiatry for bilateral foot/stump ulcers. She otherwise feels well, denies chills, fever, nausea vomiting or change in bowel habit. [facility] Medical History (Updated 04/14/22 @ 12:[address] 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 Home Medications albuterol sulfate 90 mcg/actuation aerosol inhaler (Ventolin HFA) 1 puff inhalation Q4H PRN PRN SHORTNESS OF BREATH #0 grams 03/25/21 [Rx Last Taken Unknown] arginine 7 gram-glutam 7 gram-CaHMB 1.5 ezdz-knbia-hh-min oral pwd pkt (Alfredo (with collagen)) 1 packet PO BIDCM #0 ea 03/25/21 [Rx Last Taken 08/30/21] guaifenesin 600 mg tablet, extended release 12 hr (Mucus Relief ER) 1,200 mg PO BID #0 tabs 03/25/21 [Rx Last Taken 08/30/21] menthol 0.44 %-zinc oxide 20.6 % topical ointment (Calmoseptine) 1 applic topical BID #0 grams 03/25/21 [Rx Last Taken 08/30/21] nystatin 100,000 unit/gram topical powder (Nyamyc) 1 applic topical TID #0 grams 03/25/21 [Rx Last Taken 08/30/21] ondansetron 4 mg disintegrating tablet 4 mg PO Q6H PRN PRN NAUSEA #0 tabs 03/25/21 [Rx Last Taken Unknown] tramadol 50 mg tablet 50 mg PO Q6H PRN Pain 05/18/21 [History Last Taken Unknown] acidophilus 25 million cell-pectin, citrus 100 mg tablet 1 tab PO BID 08/31/21 [History Last Taken 08/30/21] cholecalciferol (vitamin D3) 50 mcg (2,000 unit) capsule 250 mcg PO DAILY 08/31/21 [History Last Taken 08/30/21] loperamide 2 mg capsule 4 mg PO TID 08/31/21 [History Last Taken 08/30/21] hydrocortisone acetate 25 mg rectal suppository (Anucort-HC) 50 mg NV DAILY #42 ea 09/04/21 [Rx Last Taken Unknown] pantoprazole 40 mg tablet,delayed release 40 mg PO BIDCM #60 tabs 09/04/21 [Rx Last Taken Unknown] hydrocortisone 2.5 % topical cream with perineal applicator 1 applic NV QD-BID PRN Fissure #30 grams 09/07/21 [Rx Last Taken Unknown] Db 7 2 cap Q8 12/16/21 [History Last Taken Unknown] doxycycline hyclate 100 mg capsule 100 mg PO BID #28 caps 01/05/22 [Rx Last Taken Unknown] vancomycin 125 mg capsule 125 mg PO DIRECTED #56 caps 01/05/22 [Rx Last Taken Unknown] rivaroxaban 15 mg (42)-20 mg (9) tablets in a starter pack (Xarelto DVT-PE Treat 30d Start) See Rx Instructions PO .COMPLEX #51 tabs 02/15/22 [Rx Last Taken Unknown] budesonide 3 mg capsule,delayed,extended release 9 mg PO DAILY #90 ea 03/08/22 [Rx Last Taken Unknown] diphenoxylate-atropine 2.5 mg-0.025 mg tablet (Lomotil) 1 tab PO BID PRN diarrhea #60 tabs 03/08/22 [Rx Last Taken Unknown] folic acid 1 mg tablet 1 mg PO DAILY #30 tabs 03/08/22 [Rx Last Taken Unknown] sulfasalazine 500 mg tablet 0.5 g PO BID #60 tabs 03/08/22 [Rx Last Taken Unknown] Allergy/AdvReac Type Severity Reaction Status Date / Time cefprozil Allergy Shortness Verified 02/15/22 11:00 of breath ceftriaxone Allergy Hives Verified 02/15/22 11:00 clindamycin Allergy Rash Verified 02/15/22 11:00 enalapril Allergy Other Verified 02/15/22 11:00 enoxaparin Allergy Rash Verified 02/15/22 11:00 heparin Allergy Rash Verified 02/15/22 11:00 levalbuterol Allergy Other Verified 02/15/22 11:00 morphine Allergy Shortness Verified 02/15/22 11:00 of breath Penicillins Allergy Anaphylaxis Verified 02/15/22 11:00 shellfish derived Allergy Anaphylaxis Verified 02/15/22 11:00 valsartan Allergy Other Verified 02/15/22 11:00 vancomycin Allergy Rash Verified 02/15/22 11:00 Family History Mother Cancer Lung CA w/ tobacco use history. Diabetes COPD (chronic obstructive pulmonary disease) Father Cancer Lung CA w/ tobacco use history. Diabetes COPD (chronic obstructive pulmonary disease) Heart disease Surgical History History of appendectomy History of eye surgery History of foot surgery History of lumpectomy History of tubal ligation Social History household members: none Smoking Status: Never smoker alcohol intake: never substance use type: does not use ROS Review of Systems ROS Unobtainable: other Constitutional Constitutional: Denies fatigue, fever(s), poor appetite, weight gain or weight loss ENT HEENT: Denies mouth lesions Cardiovascular Cardiovascular: Denies abdominal bloating, abdominal edema or abdominal pain Respiratory/Chest Respiratory/Chest: Denies change in mental status, change in phlegm color, chest congestion or chest tightness Gastrointestinal Gastrointestinal: Denies belching, bloating, change in bowel habits, change in stool character, chewing difficulty, coffee ground emesis, constipation, cramping, diarrhea, dyspepsia, dysphagia, early satiety, excessive flatus, fecal incontinence, heartburn, hematemesis, hematochezia, hemorrhoids, loose stools, melena, nausea, odynophagia, rectal bleeding, tenesmus, vomiting or weight changes Genitourinary Genitourinary: Denies abdominal discomfort, burning urination or itching Musculoskeletal Musculoskeletal: Reports as per HPI; Denies muscle weakness or myalgias Integumentary Integumentary: Denies jaundice Neurologic Neurologic: Denies lack of coordination or weakness Psychiatric Psychiatric: Denies confusion, depression, memory loss, mood swings, paranoia or suicidal ideation Endocrine Endocrinology: Denies systems reviewed and no addt'l complaints, except as documented Hematologic/Lymphatic Hematologic/Lymphatic: Denies anemia, easy bleeding, easy bruising or lymphadenopathy Allergic/Immunologic Allergic/Immunologic: Denies systems reviewed and no addt'l complaints, except as documented Vital Signs Vital Signs Vital Signs: 04/14/22 11:01 Temperature 95.9 F L Temperature Source Temporal Pulse Rate 70 Respiratory Rate 16 Blood Pressure 191/83 H Blood Pressure Mean 119 Blood Pressure Source Monitor Blood Pressure Position Sitting Oxygen Delivery Method Room Air Physical Exam Const alert, oriented x3 and no apparent distress General Appearance: cooperative, comfortable and well kempt HEENT normocephalic and head/scalp atraumatic Head and Scalp: normal to inspection, normocephalic and atraumatic Neck full ROM General: normal visual inspection Resp normal respiratory effort Effort and Inspection: able to speak in complete sentences Skin Wounds: wounds noted Neuro oriented x3, CN's II-XII intact bilaterally, moves all extremities and no focal motor deficits Psych Appearance: grossly normal Activity / Motor Behavior: appropriate eye contact Speech: normal speech Debridement Note Debridement Note Wound debrided: Left buttock Wound Grade/Stage: Stage III Type of Debridement: Excisional debridement Anesthesia Used: 4% Lidocaine Solution Depth: Down to and including healthy tissue and in the subcutaneous layer Percentage of wound debrided: 100 Instrument Used: 3mm curette Tissue Removed: Slough and devitalized tissue Severity: Fat Layer Exposed Amount of bleeding with debridement: Mild Bleeding Controlled with: Pressure Patient tolerated procedure: Patient tolerated procedure well Post-Debridement Measurements and Additional Note: Post-Debridement Measurements/Treatment LEO - Nurse 1 - General Ulcer Assessment Start: 03/31/22 11:01 Freq: Status: Active Protocol: [place] Activity Type Activity Date Activity User E-sign Co-sign Detail Recorded Client Recorded Date Recorded By Document 03/31/22 11:08 DIONI [id number] 03/31/22 11:16 DIONI Document 04/07/22 11:26 AK [id number] 04/07/22 11:31 AK Document 04/14/22 11:01 [facility] [id number] 04/14/22 11:18 BM 03/31/22 04/07/22 04/14/22 11:08 11:26 11:01 WC - Today's Visit Information Type of service Follow-up Visit Follow-up Visit Follow-up Visit (Physician/WARRANTY COORDINATOR (Physician/WARRANTY COORDINATOR (Physician/WARRANTY COORDINATOR ) ) ) Arrival Mode Ambulatory Wheelchair Wheelchair Transfer Assistance None Patient Identification Verified (Name & Yes Yes Yes ) Patient Requires Transmission-Based No No No Precautions Safety Precautions NA Vital Signs Temperature (97.8 F-99.1 F) 96.4 F L 96.9 F L 95.9 F L Temperature Source Temporal Temporal Temporal Pulse Rate (60-100) 63 69 70 Pulse Location Monitor Monitor Monitor Respiratory Rate (12-18) 18 16 Respiratory rate source Observation Observation Oxygen Delivery Method Room Air Blood Pressure (90/60-120/80) 145/77 H 191/83 H Blood Pressure Mean 99 119 Source Monitor Monitor Monitor Position Semi-Fowlers Sitting Blood Pressure Location Left Arm History Since Last Visit- (Skip if this is Patient's initial visit) Have you changed medications since your No No No last visit? Any new allergies or adverse reactions No No No Had a fall/change in ADL's that may No No No increase risk of falls Signs or symptoms of abuse and/or No No No neglect since last visit Have you been in the hospital since your No No No last visit? Has dressing in place as prescribed Yes Yes Yes Has compression in place as prescribed Yes Yes N/A Has offloadiing in place as prescribed Yes N/A N/A Experienced any changes in pain level or No No No management Left Footwear No Footwear Right Footwear Surgical Shoe with pressure relief insole Pain Scale: 0-10 Numeric Is Patient Pain Free? Yes Yes No r groin/thigh -Description Sharp,Burning -Intensity 8 -Duration (hours) Acute -Pain Behavior Facial Grimacing -Pain Aggravating Factors Sitting -Alleviating Factors/Interventions Distraction, Will continue to monitor, Patient denies need for intervention, Emotional Support - Nurse 1 - General Ulcer Measurement Start: 03/31/22 11:01 Freq: Status: Active Protocol: Activity Type Activity Date Activity User E-sign Co-sign Detail Recorded Client Recorded Date Recorded By Document 03/31/22 11:08 [id number] 03/31/22 11:16 JF Document 04/07/22 11:26 AK [id number] 04/07/22 11:31 AK Document 04/14/22 11:01 [facility] [id number] 04/14/22 11:18 BM 03/31/22 04/07/22 04/14/22 11:08 11:26 11:01 Wound Center Nurse 1 #6- L BUTTOCK -Combined with other wound No -Current Size (cm) - Length 0.5 -Current Size (cm) - Width 0.6 -Current Size (cm) - Depth 0.1 -Total Square Cm 0.30 -Date of Last Picture (Recall this 04/14/22 field) -Photo Taken Yes -Epithelialization None Present -Tunneling No -Undermining/Tunneling No -Circular Undermining No -Exudate Amt Small -Exudate Type Serosanguineous -Wound Margin Distinct, Outline Attached -Granulation Amt Large (67-100%) -Granulation Quality Red -Slough/Fibrin No -Necrosis Amt None Present (0 %) -Texture (Margy-wound Skin Appearance) Assessed -Moisture (Margy-wound Skin Appearance) Assessed -Color (Margy-wound Skin Appearance) Assessed, Erythema -Temperature (Margy-wound Skin No Abnormality Appearance) (Pt Warm) -Tenderness on Palpation (Margy-wound No Skin Appearance) -Ulcer Cleansing Rinsed/ Irrigated with Saline -Foul Odor after Cleansing No -Anesthetic Used 5% Lidocaine Gel #5 left lateral stump -Combined with other wound No No No -Current Size (cm) - Length 0.2 0.5 1 -Current Size (cm) - Width 0.8 0.5 4 -Current Size (cm) - Depth 0.2 1 0.5 -Total Square Cm 0.16 0.25 4 -Date of Last Picture (Recall this 04/14/22 field) -Photo Taken Yes No Yes -Epithelialization None Present None Present -Tunneling No No No -Undermining/Tunneling No No No -Circular Undermining No No No -Change in Wound Grade/Stage No -Exudate Amt Small Large Medium -Exudate Type Serosanguineous Yellow/Green Serosanguineous -Wound Margin Flat & Intact Distinct, Distinct, Outline Outline Attached Attached -Granulation Amt None Present (0 Small (1-33%) %) -Granulation Quality Red -Slough/Fibrin Yes Yes Yes -Necrosis Amt Large (67-100%) Large (67-100%) Large (67-100%) -Necrotic Tissue Type Adherent Slough Adherent Slough Adherent Slough -Structure Exposed N/A N/A -Texture (Margy-wound Skin Appearance) Assessed No Abnormality, Assessed, Assessed Scarring -Moisture (Margy-wound Skin Appearance) Assessed,Dry/ Assessed, Assessed Scaly Maceration -Color (Margy-wound Skin Appearance) Assessed No Abnormality, Assessed, Assessed Erythema -Temperature (Margy-wound Skin No Abnormality No Abnormality No Abnormality Appearance) (Pt Warm) (Pt Warm) (Pt Warm) -Tenderness on Palpation (Margy-wound Yes No No Skin Appearance) -Ulcer Cleansing Rinsed/ Rinsed/ Rinsed/ Irrigated with Irrigated with Irrigated with Saline Saline Saline -Foul Odor after Cleansing No No No -Anesthetic Used 4% Lidocaine 4% Lidocaine 5% Lidocaine Solution Solution Gel 3. R heel -Combined with other wound No No No -Current Size (cm) - Length 0.7 1 3.5 -Current Size (cm) - Width 1.3 2 3.3 -Current Size (cm) - Depth 0.2 0.1 0.1 -Total Square Cm 0.91 2 11.55 -Date of Last Picture (Recall this 04/14/22 field) -Photo Taken Yes No -Epithelialization None Present None Present -Tunneling No No No -Undermining/Tunneling No No No -Circular Undermining No No No -Change in Wound Grade/Stage No -Exudate Amt Small Medium Medium -Exudate Type Serosanguineous Serosanguineous Serosanguineous -Wound Margin Flat & Intact Distinct, Distinct, Outline Outline Attached Attached -Granulation Amt Small (1-33%) Medium (34-66%) -Granulation Quality Red Red -Slough/Fibrin Yes Yes -Necrosis Amt Medium (34-66%) Medium (34-66%) Medium (34-66%) -Necrotic Tissue Type Adherent Slough Adherent Slough Eschar -Structure Exposed N/A N/A -Texture (Margy-wound Skin Appearance) Assessed, Assessed,Callus Assessed, Localized Edema ,Excoriation Scarring -Moisture (Margy-wound Skin Appearance) Assessed,Dry/ Assessed, Assessed Scaly Maceration -Color (Margy-wound Skin Appearance) Assessed, Assessed, Assessed, Ecchymosis Erythema Erythema -Temperature (Margy-wound Skin No Abnormality No Abnormality No Abnormality Appearance) (Pt Warm) (Pt Warm) (Pt Warm) -Tenderness on Palpation (Margy-wound No No No Skin Appearance) -Ulcer Cleansing Rinsed/ Rinsed/ Rinsed/ Irrigated with Irrigated with Irrigated with Saline Saline Saline -Foul Odor after Cleansing No No No -Anesthetic Used 4% Lidocaine 4% Lidocaine 5% Lidocaine Solution Solution Gel Lower Limb Edema Present NA No Left Calf (cm) 35 Left Ankle (cm) 24.6 WC - Nurse 2 - General Ulcer CM Notes Start: 03/31/22 11:01 Freq: Status: Active Protocol: Activity Type Activity Date Activity User E-sign Co-sign Detail Recorded Client Recorded Date Recorded By Document 03/31/22 14:52 PL [id number] 03/31/22 15:01 PL Document 04/07/22 11:59 JF [id number] 04/07/22 12:12 JF Document 04/14/22 11:26 MW [id number] 04/14/22 11:30 MW Document 04/14/22 12:33 PL [id number] 04/14/22 12:35 PL 03/31/22 04/07/22 04/14/22 14:52 11:59 11:26 Wound Center Nurse 2 #6- L BUTTOCK -Time 11:26 -Correct Patient Yes -Correct Side, Site, Position Yes -Correct Procedure Yes -Procedure Performed Yes -Type of Procedure Debridement -Clinical Debridement Subcutaneous -Tissue Removed Subcutaneous -Post Debridement (cm) - Length 0.5 -Post Debridement (cm) - Width 0.5 -Post Debridement (cm) - Depth 0.1 -Total Square (Post) (cm) 0.25 -Area of Debridement (cm) - Length 0.5 -Area of Debridement (cm) - Width 0.5 -Total Square (Area) (cm) 0.25 -Tunneling No -Undermining/Tunneling No -Circular Undermining No -Wound/Ulcer Outcome Not Healed -Ulcer Cleansing Rinsed/ Irrigated with Saline -Foul Odor after Cleansing No -Bioengineered Tissue No -Bleeding Controlled with Pressure -Treatment Response Procedure Tolerated Well -Offloading No -Debridement - Subq, 1st 20sq cm Yes #5 left lateral stump -Time 11:39 11:59 -Correct Patient Yes Yes -Correct Side, Site, Position Yes Yes -Correct Procedure Yes Yes -Procedure Performed Yes Yes -Type of Procedure Debridement Debridement -Clinical Debridement Subcutaneous Subcutaneous -Tissue Removed Subcutaneous Subcutaneous -Post Debridement (cm) - Length 0.2 1.0 -Post Debridement (cm) - Width 0.8 1.1 -Post Debridement (cm) - Depth 0.2 1.0 -Total Square (Post) (cm) 0.16 1.10 -Area of Debridement (cm) - Length 0.2 1.0 -Area of Debridement (cm) - Width 0.8 1.1 -Total Square (Area) (cm) 0.16 1.10 -Tunneling No No -Undermining/Tunneling No No -Circular Undermining No No -Wound/Ulcer Outcome Not Healed Not Healed -Ulcer Cleansing Rinsed/ Rinsed/ Irrigated with Irrigated with Saline Saline -Foul Odor after Cleansing No No -Bioengineered Tissue No No -Bleeding Controlled with Pressure Pressure -Treatment Response Procedure Procedure Tolerated Well Tolerated Well -Offloading Yes -Type of Offloading Surgical Shoe -Debridement - Subq, 1st 20sq cm No Yes 3. R heel -Time 11:39 12:00 -Correct Patient Yes Yes -Correct Side, Site, Position Yes Yes -Correct Procedure Yes Yes -Procedure Performed Yes Yes -Type of Procedure Debridement Debridement -Clinical Debridement Subcutaneous Subcutaneous -Tissue Removed Subcutaneous Subcutaneous -Post Debridement (cm) - Length 0.7 3.0 -Post Debridement (cm) - Width 1.3 3.0 -Post Debridement (cm) - Depth 0.2 0.1 -Total Square (Post) (cm) 0.91 9.00 -Area of Debridement (cm) - Length 0.7 3.0 -Area of Debridement (cm) - Width 1.3 3.0 -Total Square (Area) (cm) 0.91 9.00 -Tunneling No No -Undermining/Tunneling No No -Circular Undermining No No -Wound/Ulcer Outcome Not Healed Not Healed -Ulcer Cleansing Rinsed/ Rinsed/ Irrigated with Irrigated with Saline Saline -Foul Odor after Cleansing No No -Bioengineered Tissue No No -Bleeding Controlled with Pressure Pressure -Treatment Response Procedure Procedure Tolerated Well Tolerated Well -Offloading Yes -Type of Offloading Surgical Shoe -Debridement - Subq, 1st 20sq cm Yes No Pain Scale: 0-10 Numeric Is Patient Pain Free? Yes Yes Yes 04/14/22 12:33 Wound Center Nurse 2 #6- L BUTTOCK -Time -Correct Patient -Correct Side, Site, Position -Correct Procedure -Procedure Performed -Type of Procedure -Clinical Debridement -Tissue Removed -Post Debridement (cm) - Length -Post Debridement (cm) - Width -Post Debridement (cm) - Depth -Total Square (Post) (cm) -Area of Debridement (cm) - Length -Area of Debridement (cm) - Width -Total Square (Area) (cm) -Tunneling -Undermining/Tunneling -Circular Undermining -Wound/Ulcer Outcome -Ulcer Cleansing -Foul Odor after Cleansing -Bioengineered Tissue -Bleeding Controlled with -Treatment Response -Offloading -Debridement - Subq, 20sq cm #5 left lateral stump -Time 11:43 -Correct Patient Yes -Correct Side, Site, Position Yes -Correct Procedure Yes -Procedure Performed Yes -Type of Procedure Debridement -Clinical Debridement Subcutaneous -Tissue Removed Subcutaneous -Post Debridement (cm) - Length 1 -Post Debridement (cm) - Width 4 -Post Debridement (cm) - Depth 0.5 -Total Square (Post) (cm) 4 -Area of Debridement (cm) - Length 1 -Area of Debridement (cm) - Width 4 -Total Square (Area) (cm) 4 -Tunneling No -Undermining/Tunneling No -Circular Undermining No -Wound/Ulcer Outcome Not Healed -Ulcer Cleansing Rinsed/ Irrigated with Saline -Foul Odor after Cleansing No -Bioengineered Tissue No -Bleeding Controlled with Pressure -Treatment Response -Offloading -Type of Offloading Total Contact Cast (TCC) - Left ($) -Debridement - Subq, 20sq cm Yes 3. R heel -Time 11:43 -Correct Patient Yes -Correct Side, Site, Position Yes -Correct Procedure Yes -Procedure Performed Yes -Type of Procedure Debridement -Clinical Debridement Subcutaneous -Tissue Removed Subcutaneous -Post Debridement (cm) - Length 3.5 -Post Debridement (cm) - Width 3.3 -Post Debridement (cm) - Depth 0.1 -Total Square (Post) (cm) 11.55 -Area of Debridement (cm) - Length 3.5 -Area of Debridement (cm) - Width 3.3 -Total Square (Area) (cm) 11.55 -Tunneling No -Undermining/Tunneling No -Circular Undermining No -Wound/Ulcer Outcome Not Healed -Ulcer Cleansing Rinsed/ Irrigated with Saline -Foul Odor after Cleansing No -Bioengineered Tissue No -Bleeding Controlled with Pressure -Treatment Response Procedure Tolerated Well -Offloading -Type of Offloading -Debridement - Subq, 1st 20sq cm No Pain Scale: 0-10 Numeric Is Patient Pain Free? Yes - Nurse 3 - General Ulcer D/C NN Start: 03/31/22 11:01 Freq: Status: Active Protocol: Activity Type Activity Date Activity User E-sign Co-sign Detail Recorded Client Recorded Date Recorded By Document 03/31/22 12:25 REECE [id number] 03/31/22 12:26 AK Document 04/07/22 12:31 REECE [id number] 04/07/22 12:32 AK 03/31/22 04/07/22 12:25 12:31 Wound Care Nurse 3 #5 left lateral stump -Ulcer Cleansing Rinsed/ Rinsed/ Irrigated with Irrigated with Saline Saline -Foul Odor after Cleansing No No -Negative Pressure Wound Therapy N/A N/A -Primary Dressing Applied Aquacel Rope Aquacel AG 4x4 -Primary Dressing Covered/Secured with Dry Gauze & Dry Gauze & Roll Gauze, Roll Gauze, Secured with Secured with Tape Tape -Aquacel AG 4x4 1 -Aquacel Rope 1 3. R heel -Ulcer Cleansing Rinsed/ Rinsed/ Irrigated with Irrigated with Saline Saline -Foul Odor after Cleansing No No -Negative Pressure Wound Therapy N/A N/A -Primary Dressing Applied Aquacel AG 4x4 Aquacel AG 4x4 -Primary Dressing Covered/Secured with Dry Gauze & Dry Gauze & Roll Gauze, Roll Gauze, Secured with Secured with Tape Tape -Aquacel AG 4x4 1 1 Pain Scale: 0-10 Numeric Is Patient Pain Free? Yes Yes WC - Visit Discharge Discharge Condition Stable Ambulatory Status Wheelchair Transportation Private Auto Medication Reconcilliation completed & Yes provided to patient/care provider Clinical Summary of Care Provided Yes Charges/Coding Visit Charges Office Visits / Consults: 92211 OV L3 Est Procedures Integumentary [id number]: [id number] Vandana subq tissue 20 sq cm/< Assessment/Plan Assessment/Plan (1) Decubitus ulcer of left buttock, stage 3: CODE(S): L89.323 - Pressure ulcer of left buttock, stage 3 (2) Type 2 diabetes mellitus: CODE(S): E11.9 - Type 2 diabetes mellitus without complications PLAN: Plan Debridement done as documented above, procedure was well-tolerated. No significant concerns for infection at this time. Promogran daily with Adaptic over top. Cover with ABD or Optifoam. Offloading very strongly recommended. Continue other chronic wound care management. Optimal diabetes control. Currently has home health however she states that the only coming once a week. Hopefully, they can come in at least every other day to help with dressing change. She currently lives alone and does not have much help with her wound care. Her questions were answered and she was advised to call with any further questions or concerns. Follow-up with me in 1 week. This note was generated with [employer] dictation software. It may contain incorrect words, spelling, and punctuation that were not noted in checking the note before signing.
== END 2022-04-28 23:59 | disposition home or self-care (01) ==
LOC: WC 11:00
PROVIDERS: PCP Family Medicine; Referring Provider Internal Medicine; Visit Provider Student in an Organized Health Care Education/Training Program
DX: E11.51 Type 2 diabetes mellitus with diabetic peripheral angiopathy without gangrene (principal); L89.613 Pressure ulcer of right heel, stage 3; L89.323 Pressure ulcer of left buttock, stage 3; E11.621 Type 2 diabetes mellitus with foot ulcer; T87.89 Other complications of amputation stump; Z89.429 Acquired absence of other toe(s), unspecified side; L97.522 Non-pressure chronic ulcer of other part of left foot with fat layer exposed; E11.42 Type 2 diabetes mellitus with diabetic polyneuropathy; L89.621 Pressure ulcer of left heel, stage 1; Y83.5 Amputation of limb(s) as the cause of abnormal reaction of the patient, or of later complication, without mention of misadventure at the time of the procedure; T14.8XXD Other injury of unspecified body region, subsequent encounter
CPT/HCPCS: 11042; 29445; 97605

== ENCOUNTER 2022-05-25 10:44 | Outpatient (RCR) | payer MEDICARE, OTHER, SELFPAY ==
[2022-05-25 11:15] LABS: Absolute Lymphocyte Count 3.77 X10^3/uL (0.83-4.51); Absolute Neutrophil Count 5.1 X10^3/uL (2.0-7.7); Basophil# 0.07 X10^3/uL; Basophil% 0.7 % (0-1); Eosinophil# 0.55 X10^3/uL; Eosinophils% 5.4 % (0-5); Hematocrit 27.6 % (37-47); Hemoglobin 8.8 g/dL (12.0-15.0); Lymphocyte # 3.77 X10^3/ul (0.83-4.51); Mean Corp Hgb Conc 31.9 g/dL (32-36); Mean Corpuscular Hgb 30.9 pg (27.0-32.0); Mean Corpuscular Volume 96.8 fL (81-99); Mean Platelet Vol. 10.2 fl (6.2-12.0); Monocyte# 0.69 X10^3/uL; Monocyte% 6.8 % (0-10); NRBC Flagged by Analyzer 0 % (0-5); Neutrophil # 5.08 X10^3/uL (2.7-7.7); Neutrophil % 49.8 % (47-70); Platelet Count 260 K/mm3 (150-450); RBC Distribution Width CV 12.6 % (11.6-14.6); RBC Distribution Width SD 44.3 fl (35.1-43.9); Red Blood Count 2.85 M/mm3 (4.2-5.4); White Blood Count 10.2 K/mm3 (4.4-11.0)
[2022-05-25 11:23] LABS: Anion Gap 6 (5-15); BUN 24 mg/dL (7-18); BUN/Creat Ratio 27.5 RATIO (10-20); Calcium,Total 8.7 mg/dL (8.5-10.1); Chloride 110 mmol/L (98-107); Creatinine, Serum 0.87 mg/dL (0.55-1.02); EST Glomerular Filtration Rate 69 mL/min (>60); Est Glom Filt Rate - Afr Amer 84 mL/min (>60); Glucose 121 mg/dL (74-106); Potassium 4.1 mmol/L (3.5-5.1); Sodium Level 140 mmol/L (136-145)
== END 2022-05-29 23:59 ==
LOC: LABSPEC 10:44
PROVIDERS: PCP Family Medicine
DX: M86.9 Osteomyelitis, unspecified (principal); Z79.899 Other long term (current) drug therapy
CPT/HCPCS: 80048; 85025

== ENCOUNTER 2022-08-23 10:30 | Outpatient (RCR) | payer MEDICARE, OTHER, SELFPAY ==
[2022-04-29 00:32] VITALS: BP 191/83; PULSE 70; RESP 16; TEMP 35.5
[2022-08-16 08:57] VITALS: BP 143/56; PULSE 76; RESP 16; TEMP 36; BMI 24.0
--- NOTE | 2022-08-16 13:47 | HP.PCM_ITS ---
History of Present Illness Date of Service: 08/16/22 Chief Complaint: Right posterior heel ulceration History of Wound: This is a 67-year-old female with multiple pre-existing medical problems, including diabetes mellitus. She presents with an ulceration on the right posterior heel, which has been present for approximately 3 months. She has been under the care of Dr. Lea at the [facility] in [place], [place], but has been referred for further evaluation and management at our wound healing facility. She has previously been treated at our facility for other wounds. With respect to her right heel ulceration, she has been using Aquacel Ag topically. Review of her medical history reveals an arterial duplex ultrasound which was performed on February 05, 2021, which revealed no evidence of arterial stenosis, and with triphasic arterial flow throughout the left lower extremity. She was diagnosed with deep vein thrombosis in the left lower extremity last year, and treated for several months with systemic anticoagulation therapy using Xarelto. The patient has undergone a left transmetatarsal amputation in March 2022. She has not returned to weightbearing as of now. Recent cultures of her right heel ulceration were obtained at the [facility], and the patient is currently taking doxycycline, Bactrim, and vancomycin orally. The patient typically sleeps on her back at night. [facility] Medical History Asthma Asthma Decubitus ulcer of left buttock, stage 3 Decubitus ulcer of right heel, stage 3 Deep venous thrombosis of distal end of left lower extremity Diabetic foot ulcer Diarrhea Gastroesophageal reflux disease History of cerebrovascular accident History of deep venous thrombosis (DVT) of distal vein of left lower extremity History of ischemic colitis History of myocardial infarction Ischemic colitis Migraine Osteoarthritis of cervical and lumbar spine Pressure ulcer of right heel, stage 3 Skin ulcer of finger with fat layer exposed Type 2 diabetes mellitus Type 2 diabetes mellitus with diabetic polyneuropathy Ulcer of amputation stump of foot Home Medications albuterol sulfate 90 mcg/actuation aerosol inhaler (Ventolin HFA) 1 puff inhalation Q4H PRN PRN SHORTNESS OF BREATH #0 grams 03/25/21 [Rx Last Taken Unknown] arginine 7 gram-glutam 7 gram-CaHMB 1.5 oebg-dnmax-mj-min oral pwd pkt (Alfredo (with collagen)) 1 packet PO BIDCM #0 ea 03/25/21 [Rx Last Taken 08/30/21] guaifenesin 600 mg tablet, extended release 12 hr (Mucus Relief ER) 1,200 mg PO BID #0 tabs 03/25/21 [Rx Last Taken 08/30/21] menthol 0.44 %-zinc oxide 20.6 % topical ointment (Calmoseptine) 1 applic topical BID #0 grams 03/25/21 [Rx Last Taken 08/30/21] nystatin 100,000 unit/gram topical powder (Nyamyc) 1 applic topical TID #0 grams 03/25/21 [Rx Last Taken 08/30/21] ondansetron 4 mg disintegrating tablet 4 mg PO Q6H PRN PRN NAUSEA #0 tabs 03/25/21 [Rx Last Taken Unknown] tramadol 50 mg tablet 50 mg PO Q6H PRN Pain 05/18/21 [History Last Taken Un known] acidophilus 25 million cell-pectin, citrus 100 mg tablet 1 tab PO BID 08/31/21 [History Last Taken 08/30/21] cholecalciferol (vitamin D3) 50 mcg (2,000 unit) capsule 250 mcg PO DAILY 08/31/21 [History Last Taken 08/30/21] loperamide 2 mg capsule 4 mg PO TID 08/31/21 [History Last Taken 08/30/21] hydrocortisone acetate 25 mg rectal suppository (Anucort-HC) [address] DAILY #42 ea 09/04/21 [Rx Last Taken Unknown] pantoprazole 40 mg tablet,delayed release 40 mg PO BIDCM #60 tabs 09/04/21 [Rx Last Taken Unknown] hydrocortisone 2.5 % topical cream with perineal applicator [address] QD-BID PRN Fissure #30 grams 09/07/21 [Rx Last Taken Unknown] Db 7 2 cap Q8 12/16/21 [History Last Taken Unknown] doxycycline hyclate 100 mg capsule 100 mg PO BID #28 caps 01/05/22 [Rx Last Taken Unknown] vancomycin 125 mg capsule 125 mg PO DIRECTED #56 caps 01/05/22 [Rx Last Taken Unknown] rivaroxaban 15 mg (42)-20 mg (9) tablets in a starter pack (Xarelto DVT-PE Treatment 30-Day Starter) See Rx Instructions PO .COMPLEX #51 tabs 02/15/22 [Rx Last Taken Unknown] budesonide 3 mg capsule,delayed,extended release 9 mg PO DAILY #90 ea 03/08/22 [Rx Last Taken Unknown] diphenoxylate-atropine 2.5 mg-0.025 mg tablet (Lomotil) 1 tab PO BID PRN diarrhea #60 tabs 03/08/22 [Rx Last Taken Unknown] folic acid 1 mg tablet 1 mg PO DAILY #30 tabs 03/08/22 [Rx Last Taken Unknown] sulfasalazine 500 mg tablet See Rx Instructions .Route .COMPLEX #60 tabs 08/05/22 [Rx Last Taken Unknown] Allergy/AdvReac Type Severity Reaction Status Date / Time cefprozil Allergy Shortness Verified 02/15/22 11:00 of breath ceftriaxone Allergy Hives Verified 02/15/22 11:00 clindamycin Allergy Rash Verified 02/15/22 11:00 enalapril Allergy Other Verified 02/15/22 11:00 enoxaparin Allergy Rash Verified 02/15/22 11:00 heparin Allergy Rash Verified 02/15/22 11:00 levalbuterol Allergy Other Verified 02/15/22 11:00 morphine Allergy Shortness Verified 02/15/22 11:00 of breath Penicillins Allergy Anaphylaxis Verified 02/15/22 11:00 shellfish derived Allergy Anaphylaxis Verified 02/15/22 11:00 valsartan Allergy Other Verified 02/15/22 11:00 vancomycin Allergy Rash Verified 02/15/22 11:00 Family History Mother Cancer Lung CA w/ tobacco use history. Diabetes COPD (chronic obstructive pulmonary disease) Father Cancer Lung CA w/ tobacco use history. Diabetes COPD (chronic obstructive pulmonary disease) Heart disease Surgical History History of appendectomy History of eye surgery History of foot surgery History of lumpectomy History of tubal ligation Status post transmetatarsal amputation of left foot Social History household members: none Smoking Status: Never smoker alcohol intake: never substance use type: does not use Vital Signs Vital Signs Vital Signs: 08/16/22 08:57 Temperature 96.8 F L Temperature Source Temporal Pulse Rate 76 Respiratory Rate 16 Blood Pressure 143/56 H Blood Pressure Mean 85 Blood Pressure Source Monitor Blood Pressure Position Sitting Blood Pressure Location Right Arm Oxygen Delivery Method Room Air Weight Weight: 140 lb Body Mass Index (BMI) 24.0 Physical Exam Const alert, oriented x3, no apparent distress, average body habitus and well nourished General Appearance: cooperative and well developed Orientation / Consciousness: awake, oriented to person, oriented to place and oriented to time HEENT normocephalic and head/scalp atraumatic Head and Scalp: normal to inspection, normocephalic and atraumatic External Ear: external ears normal Eyes PERRL and EOMs intact bilaterally General Eye: normal appearance of both eyes Resp normal respiratory effort, normal air movement, no retractions and no use of accessory muscles Effort and Inspection: able to speak in complete sentences Extremity no calf tenderness General Extremity: Negative for clubbing or cyanosis Skin Wound Narrative: An ulceration is noted on the right posterior heel. Dimensions are documented elsewhere. There is no sign of infection or cellulitis. There is a moderate amount of bioburden, and some nonviable tissue. Neuro oriented x3, CN's II-XII intact bilaterally and moves all extremities Sensorium / Orientation: awake, alert, oriented to person, oriented to place and oriented to time Psych Appearance: grossly normal and appropriate Attitude: calm Activity / Motor Behavior: appropriate eye contact Speech: normal speech Mood & Affect: euthymic mood Thought Process: normal thought process Thought Content: normal thought content Attention / Concentration: attention grossly intact Debridement Note Debridement Note Wound debrided: Right posterior heel Laterality: Right Wound Grade/Stage: Category 3 pressure ulceration Type of Debridement: Excisional debridement Anesthesia Used: 5% Lidocaine Gel Depth: Down to and including healthy tissue and in the subcutaneous layer Percentage of wound debrided: 100 Instrument Used: 5mm curette Severity: Fat Layer Exposed Amount of bleeding with debridement: Mild Bleeding Controlled with: Compression and gauze Patient tolerated procedure: Patient tolerated procedure well Post-Debridement Measurements and Additional Note: Post-Debridement Measurements/Treatment LEO - Nurse 1 - General Ulcer Assessment Start: 08/16/22 08:57 Freq: Status: Active Protocol: [place] Activity Type Activity Date Activity User E-sign Co-sign Detail Recorded Client Recorded Date Recorded By Document 08/16/22 08:57 MW [id number] 08/16/22 09:06 08/16/22 08:57 - Today's Visit Information Type of service Initial Visit Arrival Mode Wheelchair Transfer Assistance Manual Accompanied by daughter Patient Identification Verified (Name & Yes ) Patient Requires Transmission-Based No Precautions Safety Precautions Fall Prevention Height and Weight Height 5 ft 4 in Weight 140 lb Weight in Pounds 140.0 lbs Weight Measurement Method Stated by Patient Body Mass Index (BMI) 24.0 BMI Classification Normal BSA - Maxwell 1.68 Vital Signs Temperature (97.8 F-99.1 F) 96.8 F L Temperature Source Temporal Pulse Rate (60-100) 76 Pulse Location Monitor Respiratory Rate (12-18) 16 Respiratory rate source Observation Oxygen Delivery Method Room Air Blood Pressure (90/60-120/80) 143/56 H Blood Pressure Mean 85 Source Monitor Position Sitting Blood Pressure Location Right Arm History Since Last Visit- (Skip if this is Patient's initial visit) Left Footwear Regular Shoe Right Footwear Surgical Shoe with pressure relief insole Pain Scale: 0-10 Numeric Is Patient Pain Free? Yes - Nurse 1 - General Ulcer Measurement Start: 08/16/22 08:57 Freq: Status: Active Protocol: Activity Type Activity Date Activity User E-sign Co-sign Detail Recorded Client Recorded Date Recorded By Document 08/16/22 08:57 [id number] 08/16/22 09:06 08/16/22 08:57 Wound Center Nurse 1 #7 right heel -Combined with other wound No -Current Size (cm) - Length 3.5 -Current Size (cm) - Width 2.8 -Current Size (cm) - Depth 0.2 -Total Square Cm 9.80 -Date of Last Picture (Recall this 08/16/22 field) -Photo Taken Yes -Epithelialization None Present -Tunneling No -Undermining/Tunneling No -Circular Undermining No -Exudate Amt Medium -Exudate Type Serosanguineous -Wound Margin Distinct, Outline Attached -Granulation Amt Medium (34-66%) -Granulation Quality [place] -Slough/Fibrin Yes -Necrosis Amt Medium (34-66%) -Necrotic Tissue Type Adherent Slough -Structure Exposed N/A -Texture (Margy-wound Skin Appearance) Assessed, Scarring -Moisture (Margy-wound Skin Appearance) Assessed, Maceration -Color (Margy-wound Skin Appearance) No Abnormality, Assessed -Temperature (Margy-wound Skin No Abnormality Appearance) (Pt Warm) -Tenderness on Palpation (Margy-wound No Skin Appearance) -Ulcer Cleansing Rinsed/ Irrigated with Saline -Foul Odor after Cleansing No -Anesthetic Used 5% Lidocaine Gel Lower Limb Edema Present No WC - Nurse 2 - General Ulcer CM Notes Start: 08/16/22 08:57 Freq: Status: Active Protocol: Activity Type Activity Date Activity User E-sign Co-sign Detail Recorded Client Recorded Date Recorded By Document 08/16/22 11:02 PL [id number] 08/16/22 11:03 PL 08/16/22 11:02 Wound Center Nurse 2 #7 right heel -Time 09:20 -Correct Patient Yes -Correct Side, Site, Position Yes -Correct Procedure Yes -Procedure Performed Yes -Type of Procedure Debridement -Clinical Debridement Subcutaneous -Tissue Removed Subcutaneous -Post Debridement (cm) - Length 3.5 -Post Debridement (cm) - Width 2.8 -Post Debridement (cm) - Depth 0.2 -Total Square (Post) (cm) 9.80 -Area of Debridement (cm) - Length 3.5 -Area of Debridement (cm) - Width 2.8 -Total Square (Area) (cm) 9.80 -Tunneling No -Undermining/Tunneling No -Circular Undermining No -Wound/Ulcer Outcome Not Healed -Ulcer Cleansing Rinsed/ Irrigated with Saline -Foul Odor after Cleansing No -Bioengineered Tissue No -Bleeding Controlled with Pressure -Treatment Response Procedure Tolerated Well -Debridement - Subq, 1st 20sq cm Yes Pain Scale: 0-10 Numeric Is Patient Pain Free? Yes WC - Nurse 3 - General Ulcer D/C NN Start: 08/16/22 08:57 Freq: Status: Active Protocol: Activity Type Activity Date Activity User E-sign Co-sign Detail Recorded Client Recorded Date Recorded By Document 08/16/22 09:40 KR [id number] 08/16/22 09:41 KR 08/16/22 09:40 Wound Care Nurse 3 #7 right heel -Ulcer Cleansing Rinsed/ Irrigated with Saline -Other Dressing dakins solution -Primary Dressing Covered/Secured with Dry Gauze, Secured with Tape Pain Scale: 0-10 Numeric Is Patient Pain Free? Yes WC - Visit Discharge Discharge Condition Stable Ambulatory Status Wheelchair Transportation Private Auto Accompanied by daughter Assessment/Plan Assessment/Plan (1) Pressure ulcer of right heel, stage 3: CODE(S): L89.613 - Pressure ulcer of right heel, stage 3 (2) Status post transmetatarsal amputation of left foot: CODE(S): Z89.432 - Acquired absence of left foot (3) Type 2 diabetes mellitus: CODE(S): E11.9 - Type 2 diabetes mellitus without complications QUALIFIERS: Diabetes mellitus assisted insulin use: with termite inspector use Diabetes mellitus complication status: with neurologic complications Diabetes mellitus complication detail: with polyneuropathy Qualified Code(s): E11.42 - Type 2 diabetes mellitus with diabetic polyneuropathy; Z79.4 - terminal clerk (current) use of insulin (4) PAD (peripheral artery disease): CODE(S): I73.9 - Peripheral vascular disease, unspecified (5) History of ischemic colitis: CODE(S): Z87.19 - Personal history of other diseases of the digestive system (6) History of deep venous thrombosis (DVT) of distal vein of left lower extremity: CODE(S): Z86.718 - Personal history of other venous thrombosis and embolism (7) Debility: CODE(S): R53.81 - Other malaise (8) Diabetes mellitus: CODE(S): E11.9 - Type 2 diabetes mellitus without complications (9) Epilepsy: CODE(S): G40.909 - Epilepsy, unspecified, not intractable, without status epilepticus (10) Mitral valve prolapse: CODE(S): I34.1 - Nonrheumatic mitral (valve) prolapse (11) Diabetic neuropathy: CODE(S): E11.40 - Type 2 diabetes mellitus with diabetic neuropathy, unspecified QUALIFIERS: Diabetes mellitus type: type 2 Diabetes mellitus complication detail: diabetic polyneuropathy Qualified Code(s): E11.42 - Type 2 diabetes mellitus with diabetic polyneuropathy (12) Asthma: CODE(S): J45.909 - Unspecified asthma, uncomplicated (13) History of cerebrovascular accident: CODE(S): Z86.73 - Personal history of transient ischemic attack (TIA), and cerebral infarction without residual deficits (14) History of myocardial infarction: CODE(S): I25.2 - Old myocardial infarction PLAN: Plan This is a 67-year-old diabetic female who presents with an ulceration on her right posterior heel. She has been previously treated in our facility in the past. She has recently undergone a transmetatarsal amputation of the left foot, which appears to be healed appropriately. The patient is a back sleeper, and has developed an ulceration on the right posterior heel. This appears to be pressure related. She is currently on 3 oral antibiotics, and has been counseled to continue to completion. His antibiotics were administered based upon recent cultures obtained at the [facility]. We are to request the results of these cultures, as well as other recent laboratory studies performed at the [facility]. A noninvasive lower extremity arterial study will be ordered at [facility]. Offloading measures are to be implemented, and have been discussed with the patient and her daughter at the bedside. She is to avoid allowing her right heel to rest against the bed surface, or any other surfaces for any length of time. Due to the persisting presence of some nonviable and necrotic tissue within the wound, we are to implement the use of Dakin's?moistened gauze applied topically to the wound on a daily basis. The patient has been encouraged to optimize her glycemic control. Nutritional optimization has also been recommended. The patient is to return in 1 week for reassessment. Total time: 62 minutes
[2022-08-23 10:35] VITALS: BP 126/68; PULSE 65; RESP 18; TEMP 35.6; BMI 24.0
--- NOTE | 2022-08-23 13:46 | HP.PCM_ITS ---
History of Present Illness Date of Service: 08/23/22 Chief Complaint: Right posterior heel ulceration History of Wound: This is a 67-year-old female with multiple pre-existing medical problems, including diabetes mellitus. She presents with an ulceration on the right posterior heel, which has been present for approximately 3 months. She has been under the care of Dr. Lea at the [facility] in [place], [place], but has been referred for further evaluation and management at our wound healing facility. She has previously been treated at our facility for other wounds. With respect to her right heel ulceration, she has been using Aquacel Ag topically. Review of her medical history reveals an arterial duplex ultrasound which was performed on February 05, 2021, which revealed no evidence of arterial stenosis, and with triphasic arterial flow throughout the left lower extremity. She was diagnosed with deep vein thrombosis in the left lower extremity last year, and treated for several months with systemic anticoagulation therapy using Xarelto. The patient has undergone a left transmetatarsal amputation in March 2022. She has not returned to weightbearing as of now. Recent cultures of her right heel ulceration were obtained at the [facility], and the patient is currently taking doxycycline, Bactrim, and vancomycin orally. The patient typically sleeps on her back at night. [facility] Medical History Asthma Asthma Decubitus ulcer of left buttock, stage 3 Decubitus ulcer of right heel, stage 3 Deep venous thrombosis of distal end of left lower extremity Diabetic foot ulcer Diarrhea Gastroesophageal reflux disease History of cerebrovascular accident History of deep venous thrombosis (DVT) of distal vein of left lower extremity History of ischemic colitis History of myocardial infarction Ischemic colitis Migraine Osteoarthritis of cervical and lumbar spine Pressure ulcer of right heel, stage 3 Skin ulcer of finger with fat layer exposed Type 2 diabetes mellitus Type 2 diabetes mellitus with diabetic polyneuropathy Ulcer of amputation stump of foot Home Medications albuterol sulfate 90 mcg/actuation aerosol inhaler (Ventolin HFA) 1 puff inhalation Q4H PRN PRN SHORTNESS OF BREATH #0 grams 03/25/21 [Rx Last Taken Unknown] arginine 7 gram-glutam 7 gram-CaHMB 1.5 [id number] oral pwd pkt (Alfredo (with collagen)) 1 packet PO BIDCM #0 ea 03/25/21 [Rx Last Taken 08/30/21] guaifenesin 600 mg tablet, extended release 12 hr (Mucus Relief ER) 1,200 mg PO BID #0 tabs 03/25/21 [Rx Last Taken 08/30/21] menthol 0.44 %-zinc oxide 20.6 % topical ointment (Calmoseptine) 1 applic topical BID #0 grams 03/25/21 [Rx Last Taken 08/30/21] nystatin 100,000 unit/gram topical powder (Nyamyc) 1 applic topical TID #0 grams 03/25/21 [Rx Last Taken 08/30/21] ondansetron 4 mg disintegrating tablet 4 mg PO Q6H PRN PRN NAUSEA #0 tabs 03/25/21 [Rx Last Taken Unknown] tramadol 50 mg tablet 50 mg PO Q6H PRN Pain 05/18/21 [History Last Taken Un known] acidophilus 25 million cell-pectin, citrus 100 mg tablet 1 tab PO BID 08/31/21 [History Last Taken 08/30/21] cholecalciferol (vitamin D3) 50 mcg (2,000 unit) capsule 250 mcg PO DAILY 08/31/21 [History Last Taken 08/30/21] loperamide 2 mg capsule 4 mg PO TID 08/31/21 [History Last Taken 08/30/21] hydrocortisone acetate 25 mg rectal suppository (Anucort-HC) 50 mg SD DAILY #42 ea 09/04/21 [Rx Last Taken Unknown] pantoprazole 40 mg tablet,delayed release 40 mg PO BIDCM #60 tabs 09/04/21 [Rx Last Taken Unknown] hydrocortisone 2.5 % topical cream with perineal applicator 1 applic SD QD-BID PRN Fissure #30 grams 09/07/21 [Rx Last Taken Unknown] Db 7 2 cap Q8 12/16/21 [History Last Taken Unknown] doxycycline hyclate 100 mg capsule 100 mg PO BID #28 caps 01/05/22 [Rx Last Taken Unknown] vancomycin 125 mg capsule 125 mg PO DIRECTED #56 caps 01/05/22 [Rx Last Taken Unknown] rivaroxaban 15 mg (42)-20 mg (9) tablets in a starter pack (Xarelto DVT-PE Treatment 30-Day Starter) See Rx Instructions PO .COMPLEX #51 tabs 02/15/22 [Rx Last Taken Unknown] budesonide 3 mg capsule,delayed,extended release 9 mg PO DAILY #90 ea 03/08/22 [Rx Last Taken Unknown] diphenoxylate-atropine 2.5 mg-0.025 mg tablet (Lomotil) 1 tab PO BID PRN diarrhea #60 tabs 03/08/22 [Rx Last Taken Unknown] folic acid 1 mg tablet 1 mg PO DAILY #30 tabs 03/08/22 [Rx Last Taken Unknown] sulfasalazine 500 mg tablet See Rx Instructions .Route .COMPLEX #60 tabs 08/05/22 [Rx Last Taken Unknown] Allergy/AdvReac Type Severity Reaction Status Date / Time cefprozil Allergy Shortness Verified 02/15/22 11:00 of breath ceftriaxone Allergy Hives Verified 02/15/22 11:00 clindamycin Allergy Rash Verified 02/15/22 11:00 enalapril Allergy Other Verified 02/15/22 11:00 enoxaparin Allergy Rash Verified 02/15/22 11:00 heparin Allergy Rash Verified 02/15/22 11:00 levalbuterol Allergy Other Verified 02/15/22 11:00 morphine Allergy Shortness Verified 02/15/22 11:00 of breath Penicillins Allergy Anaphylaxis Verified 02/15/22 11:00 shellfish derived Allergy Anaphylaxis Verified 02/15/22 11:00 valsartan Allergy Other Verified 02/15/22 11:00 vancomycin Allergy Rash Verified 02/15/22 11:00 Family History Mother Cancer Lung CA w/ tobacco use history. Diabetes COPD (chronic obstructive pulmonary disease) Father Cancer Lung CA w/ tobacco use history. Diabetes COPD (chronic obstructive pulmonary disease) Heart disease Surgical History History of appendectomy History of eye surgery History of foot surgery History of lumpectomy History of tubal ligation Status post transmetatarsal amputation of left foot Social History household members: none Smoking Status: Never smoker alcohol intake: never substance use type: does not use Vital Signs Vital Signs Vital Signs: 08/23/22 10:35 Temperature 96.1 F L Temperature Source Temporal Pulse Rate 65 Respiratory Rate 18 Blood Pressure 126/68 H Blood Pressure Mean 87 Blood Pressure Source Monitor Weight Weight: 140 lb Body Mass Index (BMI) 24.0 Physical Exam Const alert, oriented x3, no apparent distress, average body habitus and well nourished General Appearance: cooperative and well developed Orientation / Consciousness: awake, oriented to person, oriented to place and oriented to time HEENT normocephalic and head/scalp atraumatic Head and Scalp: normal to inspection, normocephalic and atraumatic External Ear: external ears normal Eyes PERRL and EOMs intact bilaterally General Eye: normal appearance of both eyes Resp normal respiratory effort, normal air movement, no retractions and no use of accessory muscles Effort and Inspection: able to speak in complete sentences Extremity no calf tenderness General Extremity: Negative for clubbing or cyanosis Skin Wound Narrative: An ulceration is noted on the right posterior heel. Dimensions are documented elsewhere. There is no sign of infection or cellulitis. There is a moderate amount of bioburden, and some nonviable, necrotic tissue. Neuro oriented x3, CN's II-XII intact bilaterally and moves all extremities Sensorium / Orientation: awake, alert, oriented to person, oriented to place and oriented to time Psych Appearance: grossly normal and appropriate Attitude: calm Activity / Motor Behavior: appropriate eye contact Speech: normal speech Mood & Affect: euthymic mood Thought Process: normal thought process Thought Content: normal thought content Attention / Concentration: attention grossly intact Debridement Note Debridement Note Wound debrided: Right posterior heel Laterality: Right Wound Grade/Stage: Category 3 pressure ulceration Type of Debridement: Excisional debridement Anesthesia Used: 5% Lidocaine Gel Depth: Down to and including healthy tissue and in the subcutaneous layer Percentage of wound debrided: 100 Instrument Used: 5mm curette Severity: Fat Layer Exposed Amount of bleeding with debridement: Mild Bleeding Controlled with: Compression and gauze Patient tolerated procedure: Patient tolerated procedure well Post-Debridement Measurements and Additional Note: Post-Debridement Measurements/Treatment WC - Nurse 1 - General Ulcer Assessment Start: 08/16/22 08:57 Freq: Status: Active Protocol: [place] Activity Type Activity Date Activity User E-sign Co-sign Detail Recorded Client Recorded Date Recorded By Document 08/16/22 08:57 MW [id number] 08/16/22 09:06 MW Document 08/23/22 10:35 DL [id number] 08/23/22 10:43 DL 08/16/22 08/23/22 08:57 10:35 WC - Today's Visit Information Type of service Initial Visit Follow-up Visit (Physician/[facility] ) Arrival Mode Wheelchair Wheelchair Transfer Assistance Manual Manual Transfer Assist (Other) x1 Accompanied by daughter Patient Identification Verified (Name & Yes Yes ) Patient Requires Transmission-Based No No Precautions Safety Precautions Fall Prevention Finger Stick Blood Sugar(mg/dl) (if didnt check indicated): Blood Sugar Stated by Patient Height and Weight Height 5 ft 4 in Weight 140 lb Weight in Pounds 140.0 lbs Weight Measurement Method Stated by Patient Body Mass Index (BMI) 24.0 24.0 BMI Classification Normal Normal BSA - Maxwell 1.68 Vital Signs Temperature (97.8 F-99.1 F) 96.8 F L 96.1 F L Temperature Source Temporal Temporal Pulse Rate (60-100) 76 65 Pulse Location Monitor Monitor Respiratory Rate (12-18) 16 18 Respiratory rate source Observation Observation Oxygen Delivery Method Room Air Blood Pressure (90/60-120/80) 143/56 H 126/68 H Blood Pressure Mean 85 87 Source Monitor Monitor Position Sitting Blood Pressure Location Right Arm History Since Last Visit- (Skip if this is Patient's initial visit) Have you changed medications since your No last visit? Any new allergies or adverse reactions No Had a fall/change in ADL's that may No increase risk of falls Signs or symptoms of abuse and/or No neglect since last visit Have you been in the hospital since your No last visit? Has dressing in place as prescribed Yes Has compression in place as prescribed Yes Experienced any changes in pain level or No management Left Footwear Regular Shoe Right Footwear Surgical Shoe with pressure relief insole Pain Scale: 0-10 Numeric Is Patient Pain Free? Yes Yes - Nurse 1 - General Ulcer Measurement Start: 08/16/22 08:57 Freq: Status: Active Protocol: Activity Type Activity Date Activity User E-sign Co-sign Detail Recorded Client Recorded Date Recorded By Document 08/16/22 08:57 MW [id number] 08/16/22 09:06 MW Document 08/23/22 10:35 DL [id number] 08/23/22 10:43 DL 08/16/22 08/23/22 08:57 10:35 Wound Center Nurse 1 #7 right heel -Combined with other wound No -Current Size (cm) - Length 3.5 2.6 -Current Size (cm) - Width 2.8 3.4 -Current Size (cm) - Depth 0.2 0.2 -Total Square Cm 9.80 8.84 -Date of Last Picture (Recall this 08/16/22 field) -Photo Taken Yes Yes -Epithelialization None Present -Tunneling No -Undermining/Tunneling No -Circular Undermining No -Exudate Amt Medium Medium -Exudate Type Serosanguineous Serosanguineous -Wound Margin Distinct, Distinct, Outline Outline Attached Attached -Granulation Amt Medium (34-66%) Medium (34-66%) -Granulation Quality [place] Red -Slough/Fibrin Yes -Necrosis Amt Medium (34-66%) Medium (34-66%) -Necrotic Tissue Type Adherent Slough Adherent Slough -Structure Exposed N/A N/A -Texture (Margy-wound Skin Appearance) Assessed, Callus,Scarring Scarring -Moisture (Margy-wound Skin Appearance) Assessed, Maceration Maceration -Color (Margy-wound Skin Appearance) No Abnormality, No Abnormality Assessed -Temperature (Margy-wound Skin No Abnormality No Abnormality Appearance) (Pt Warm) (Pt Warm) -Tenderness on Palpation (Margy-wound No No Skin Appearance) -Ulcer Cleansing Rinsed/ Soap and Water Irrigated with Saline -Foul Odor after Cleansing No No -Anesthetic Used 5% Lidocaine 4% Lidocaine Gel Solution Lower Limb Edema Present No WC - Nurse 2 - General Ulcer CM Notes Start: 08/16/22 08:57 Freq: Status: Active Protocol: Activity Type Activity Date Activity User E-sign Co-sign Detail Recorded Client Recorded Date Recorded By Document 08/16/22 11:02 PL [id number] 08/16/22 11:03 PL 08/16/22 11:02 Wound Center Nurse 2 -Time 09:20 -Correct Patient Yes -Correct Side, Site, Position Yes -Correct Procedure Yes -Procedure Performed Yes -Type of Procedure Debridement -Clinical Debridement Subcutaneous -Tissue Removed Subcutaneous -Post Debridement (cm) - Length 3.5 -Post Debridement (cm) - Width 2.8 -Post Debridement (cm) - Depth 0.2 -Total Square (Post) (cm) 9.80 -Area of Debridement (cm) - Length 3.5 -Area of Debridement (cm) - Width 2.8 -Total Square (Area) (cm) 9.80 -Tunneling No -Undermining/Tunneling No -Circular Undermining No -Wound/Ulcer Outcome Not Healed -Ulcer Cleansing Rinsed/ Irrigated with Saline -Foul Odor after Cleansing No -Bioengineered Tissue No -Bleeding Controlled with Pressure -Treatment Response Procedure Tolerated Well -Debridement - Subq, 1st 20sq cm Yes Pain Scale: 0-10 Numeric Is Patient Pain Free? Yes - Nurse 3 - General Ulcer D/C NN Start: 08/16/22 08:57 Freq: Status: Active Protocol: Activity Type Activity Date Activity User E-sign Co-sign Detail Recorded Client Recorded Date Recorded By Document 08/16/22 09:40 KR [id number] 08/16/22 09:41 KR Document 08/23/22 11:44 DL [id number] 08/23/22 11:45 DL 08/16/22 08/23/22 09:40 11:44 Wound Care Nurse 3 #7 right heel -Ulcer Cleansing Rinsed/ Rinsed/ Irrigated with Irrigated with Saline Saline -Foul Odor after Cleansing No -Other Dressing dakins solution dakins -Primary Dressing Covered/Secured with Dry Gauze, Dry Gauze & Secured with Roll Gauze, Tape Secured with Tape -Other Covering padding Treatment Response Procedure Tolerated Well Pain Scale: 0-10 Numeric Is Patient Pain Free? Yes Yes - Visit Discharge Discharge Condition Stable Stable Ambulatory Status Wheelchair Wheelchair Transportation Private Auto Private Auto Accompanied by daughter Notes: Padding to L heel also. Facility Type Home Health Orders Sent Yes Assessment/Plan Assessment/Plan (1) Pressure ulcer of right heel, stage 3: CODE(S): L89.613 - Pressure ulcer of right heel, stage 3 (2) Status post transmetatarsal amputation of left foot: CODE(S): Z89.432 - Acquired absence of left foot (3) Type 2 diabetes mellitus: CODE(S): E11.9 - Type 2 diabetes mellitus without complications QUALIFIERS: Diabetes mellitus group home insulin use: with watermelon inspector use Diabetes mellitus complication status: with neurologic complications Diabetes mellitus complication detail: with polyneuropathy Qualified Code(s): E11.42 - Type 2 diabetes mellitus with diabetic polyneuropathy; Z79.4 - senior living (current) use of insulin (4) PAD (peripheral artery disease): CODE(S): I73.9 - Peripheral vascular disease, unspecified (5) History of ischemic colitis: CODE(S): Z87.19 - Personal history of other diseases of the digestive system (6) History of deep venous thrombosis (DVT) of distal vein of left lower extremity: CODE(S): Z86.718 - Personal history of other venous thrombosis and embolism (7) Debility: CODE(S): R53.81 - Other malaise (8) Diabetes mellitus: CODE(S): E11.9 - Type 2 diabetes mellitus without complications (9) Epilepsy: CODE(S): G40.909 - Epilepsy, unspecified, not intractable, without status epilepticus (10) Mitral valve prolapse: CODE(S): I34.1 - Nonrheumatic mitral (valve) prolapse (11) Diabetic neuropathy: CODE(S): E11.40 - Type 2 diabetes mellitus with diabetic neuropathy, unspecified QUALIFIERS: Diabetes mellitus type: type 2 Diabetes mellitus complication detail: diabetic polyneuropathy Qualified Code(s): E11.42 - Type 2 diabetes mellitus with diabetic polyneuropathy (12) Asthma: CODE(S): J45.909 - Unspecified asthma, uncomplicated (13) History of cerebrovascular accident: CODE(S): Z86.73 - Personal history of transient ischemic attack (TIA), and cerebral infarction without residual deficits (14) History of myocardial infarction: CODE(S): I25.2 - Old myocardial infarction PLAN: Plan This is a 67-year-old diabetic female who presents with an ulceration on her right posterior heel. She has been previously treated in our facility in the past. She has recently undergone a transmetatarsal amputation of the left foot, which appears to be healed appropriately. The patient is a back sleeper, and has developed an ulceration on the right posterior heel. This appears to be pressure related. She is currently on 3 oral antibiotics, and has been counseled to continue to completion, and are nearly completed. Her antibiotics were administered based upon recent cultures obtained at the [facility]. We are to request the results of these cultures, as well as other recent laboratory studies performed at the [facility]. The patient is to undergo laboratory testing later today, and we are to obtain the following: CBC, comprehensive metabolic profile, hemoglobin A1c, and serum prealbumin. A noninvasive lower extremity arterial study has been ordered at [facility], and is pending. Offloading measures are to be implemented, and have been discussed with the patient and her daughter at the bedside. She is to avoi d allowing her right heel to rest against the bed surface, or any other surfaces for any length of time. Due to the persisting presence of some nonviable and necrotic tissue within the wound, we are to continue the use of Dakin's?moistened gauze applied topically to the wound on a daily basis. The patient has been encouraged to optimize her glycemic control. Nutritional optimization has also been recommended. At this time, there is no breakdown or open ulceration/wound on the left posterior heel, though skin changes are noted which are suggestive of pressure phenomenon. The patient has once again been urged to avoid prolonged contact between her heels and the bed surface. The patient is to return in 1 week for reassessment. Total time: 29 minutes
== END 2022-08-29 23:59 | disposition home or self-care (01) ==
LOC: WC 10:30
PROVIDERS: PCP Family Medicine; Referring Provider Internal Medicine; Visit Provider Surgery
DX: E11.621 Type 2 diabetes mellitus with foot ulcer (principal); L89.613 Pressure ulcer of right heel, stage 3; E11.622 Type 2 diabetes mellitus with other skin ulcer; E11.51 Type 2 diabetes mellitus with diabetic peripheral angiopathy without gangrene; Z89.422 Acquired absence of other left toe(s); E11.42 Type 2 diabetes mellitus with diabetic polyneuropathy; G40.909 Epilepsy, unspecified, not intractable, without status epilepticus; Z79.4 Long term (current) use of insulin; J45.909 Unspecified asthma, uncomplicated; Z86.718 Personal history of other venous thrombosis and embolism; Z79.899 Other long term (current) drug therapy; I25.2 Old myocardial infarction; Z86.73 Personal history of transient ischemic attack (TIA), and cerebral infarction without residual deficits
CPT/HCPCS: 11042; 99213; G0463

== ENCOUNTER 2022-08-28 22:48 | Inpatient (IN) | payer MEDICARE, OTHER, SELFPAY ==
[2022-08-28 22:48] VITALS: BP 207/88; PULSE 66; RESP 16; TEMP 36.3; O2SAT 99; BMI 26.6
[2022-08-28 22:50] VITALS: BP 182/90; PULSE 68; RESP 16; TEMP 36.5; O2SAT 95
--- NOTE | 2022-08-28 23:19 | EKG12_ITS ---
Test Reason : WOUND Blood Pressure : / mmHG Vent. Rate : 062 BPM Atrial Rate : 062 BPM P-R Int : 176 ms QRS Dur : 090 ms QT Int : 416 ms P-R-T Axes : 054 -30 051 degrees QTc Int : 422 ms Normal sinus rhythm Left axis deviation Abnormal ECG Confirmed by SAMMY BERRIOS, YOMI ([id number]), fashion editor GEE YEBOAH ([id number]) on 08/30/2022 1:11:03 PM Referred By: DARLIN Confirmed By:YOMI CHRISTIANSON MD
--- NOTE | 2022-08-28 23:21 | EX.ED.DYSGE1 ---
HPI History of Present Illness Chief Complaint: Wound Check Detail of Chief Complaint: Concern for right foot infection and elevated potassium Informant: patient Narrative Narrative: Patient presents the emergency department complaint of a right foot wound that is been chronic and has been seen by wound center and podiatry. Since last night she describes increased redness and swelling to the foot. Patient states she is had some abnormal drainage from the wound. Patient states that she has it debrided once a week. Patient denies any fevers. Patient also had blood work done several days ago and was told that her potassium was elevated may need to be repeated. [facility] Medical History Asthma Asthma Decubitus ulcer of left buttock, stage 3 Decubitus ulcer of right heel, stage 3 Deep venous thrombosis of distal end of left lower extremity Diabetic foot ulcer Diarrhea Gastroesophageal reflux disease History of cerebrovascular accident History of deep venous thrombosis (DVT) of distal vein of left lower extremity History of ischemic colitis History of myocardial infarction Ischemic colitis Migraine Osteoarthritis of cervical and lumbar spine Pressure ulcer of right heel, stage 3 Skin ulcer of finger with fat layer exposed Type 2 diabetes mellitus Type 2 diabetes mellitus with diabetic polyneuropathy Ulcer of amputation stump of foot Home Medications albuterol sulfate 90 mcg/actuation aerosol inhaler (Ventolin HFA) 1 puff inhalation Q4H PRN PRN SHORTNESS OF BREATH #0 grams 03/25/21 [Rx Last Taken Unknown] arginine 7 gram-glutam 7 gram-CaHMB 1.5 [id number]-vkiul-cv-min oral pwd pkt (Alfredo (with collagen)) 1 packet PO BIDCM #0 ea 03/25/21 [Rx Last Taken 08/30/21] guaifenesin 600 mg tablet, extended release 12 hr (Mucus Relief ER) 1,200 mg PO BID #0 tabs 03/25/21 [Rx Last Taken 08/30/21] menthol 0.44 %-zinc oxide 20.6 % topical ointment (Calmoseptine) 1 applic topical BID #0 grams 03/25/21 [Rx Last Taken 08/30/21] nystatin 100,000 unit/gram topical powder (Nyamyc) 1 applic topical TID #0 grams 03/25/21 [Rx Last Taken 08/30/21] ondansetron 4 mg disintegrating tablet 4 mg PO Q6H PRN PRN NAUSEA #0 tabs 03/25/21 [Rx Last Taken Unknown] tramadol 50 mg tablet 50 mg PO Q6H PRN Pain 05/18/21 [History Last Taken Unknown] acidophilus 25 million cell-pectin, citrus 100 mg tablet 1 tab PO BID 08/31/21 [History Last Taken 08/30/21] cholecalciferol (vitamin D3) 50 mcg (2,000 unit) capsule 2,000 unit PO DAILY 08/31/21 [History Last Taken 08/30/21] pantoprazole 40 mg tablet,delayed release 40 mg PO BIDCM #60 tabs 09/04/21 [Rx Last Taken Unknown] hydrocortisone 2.5 % topical cream with perineal applicator 1 applic [place] QD-BID PRN Fissure #30 grams 09/07/21 [Rx Last Taken Unknown] Db 7 2 cap Q8 blood sugar 12/16/21 [History Last Taken Unknown] budesonide 3 mg capsule,delayed,extended release 9 mg PO DAILY #90 ea 03/08/22 [Rx Last Taken Unknown] folic acid 1 mg tablet 1 mg PO DAILY #30 tabs 03/08/22 [Rx Last Taken Unknown] diphenoxylate-atropine 2.5 mg-0.025 mg tablet (Lomotil) 1 tab PO BID PRN diarrhea #60 tabs 08/25/22 [Rx Last Taken Unknown] sulfasalazine 500 mg tablet 500 mg PO BID 08/28/22 [History Last Taken Unknown] Allergy/AdvReac Type Severity Reaction Status Date / Time cefprozil Allergy Shortness Verified 08/28/22 22:50 of breath ceftriaxone Allergy Hives Verified 08/28/22 22:50 clindamycin Allergy Rash Verified 08/28/22 22:50 enalapril Allergy Other Verified 08/28/22 22:50 enoxaparin Allergy Rash Verified 08/28/22 22:50 heparin Allergy Rash Verified 08/28/22 22:50 levalbuterol Allergy Other Verified 08/28/22 22:50 morphine Allergy Shortness Verified 08/28/22 22:50 of breath Penicillins Allergy Anaphylaxis Verified 08/28/22 22:50 shellfish derived Allergy Anaphylaxis Verified 08/28/22 22:50 valsartan Allergy Other Verified 08/28/22 22:50 vancomycin Allergy Rash Verified 08/28/22 22:50 Family History Mother Cancer Lung CA w/ tobacco use history. Diabetes COPD (chronic obstructive pulmonary disease) Father Cancer Lung CA w/ tobacco use history. Diabetes COPD (chronic obstructive pulmonary disease) Heart disease Surgical History History of appendectomy History of eye surgery History of foot surgery History of lumpectomy History of tubal ligation Status post transmetatarsal amputation of left foot Social History household members: none Smoking Status: Never smoker alcohol intake: never substance use type: does not use ROS ROS ED Review of Systems ROS Unobtainable: other Constitutional Constitutional ED: Reports lethargy; Denies chills, fever(s), sweats or weight loss Eyes Eyes: Denies blurry vision, change in vision or diplopia ENT ENT ED: Denies rhinorrhea or sore throat Cardiovascular Cardiovascular: Reports chest pain and racing heartbeat; Denies orthopnea Respiratory/Chest Respiratory/Chest: Reports dyspnea and dyspnea on exertion; Denies cough, orthopnea or sputum Gastrointestinal Gastrointestinal: Denies abdominal pain, diarrhea, nausea or vomiting Genitourinary Genitourinary ED: Denies dysuria, hematuria or urinary frequency Musculoskeletal Musculoskeletal: Denies arthralgias, back pain, myalgias or neck pain Integumentary Reports other Details: Redness and swelling to right foot ; Denies abscess, Abrasions or rash Neurologic Neurologic: Denies headache(s) or weakness Psychiatric Psychiatric: Denies anxiety, depression or suicidal thoughts Endocrine Endocrinology: Denies polydipsia, polyphagia or polyuria Hematologic/Lymphatic Hematologic/Lymphatic: Denies easy bleeding, easy bruising or lymphadenopathy Allergic/Immunologic Allergic/Immunologic ED: Denies mouth swelling, tongue swelling or urticaria EXAM Physical Exam Const Vital Signs: 08/28/22 22:48 08/28/22 22:50 08/28/22 23:50 Temperature 97.4 F L 97.7 F L 97.7 F L Temperature Source Temporal Oral Oral Pulse Rate 66 68 67 Respiratory Rate 16 16 16 Blood Pressure 207/88 H 182/90 H 154/107 H Blood Pressure Mean 127 120 122 Pulse Ox 99 95 96 Oxygen Delivery Method Room Air Room Air Room Air 08/29/22 00:15 08/29/22 01:00 08/29/22 01:00 Temperature 97.7 F L 97.8 F 97.8 F Temperature Source Oral Oral Oral Pulse Rate 67 69 78 Respiratory Rate 16 16 16 Blood Pressure 165/102 H 186/78 H 187/78 H Blood Pressure Mean 123 114 114 Pulse Ox 97 97 96 Oxygen Delivery Method Room Air Room Air Room Air Positive well nourished and well developed General Appearance ED: well developed and NAD HEENT Reports TM's clear and moist mucous membranes normocephalic and atraumatic; Negative for trauma or tenderness Tympanic Membrane ED: Yes TM's clear Eyes PERRL and EOMs intact bilaterally General Eye ED: Negative for pale conjunctiva or scleral icterus Neck no lymphadenopathy, supple and no JVD General: Negative for tenderness Chest Wall inspection of chest normal and palpation of chest normal Chest: Negative for tenderness Resp normal respiratory effort and clear to auscultation bilaterally Effort and Inspection: Negative for respiratory distress or pain with movement Auscultation: Negative for rhonchi, wheezes or diminished lung sounds Cardio regular rate, regular rhythm, S1 normal heart sound, S2 normal heart sound and no murmurs Peripheral Pulses: pulses 2+ throughout GI normal to inspection, nondistended, normoactive bowel sounds, soft to palpation, non-tender, non-distended and no masses Back/Spine no CVA tenderness and no thoracic nor lumbar tenderness Extremity Extremity Narrative: Right foot-patient has a healed wound with some yellowish to greenish drainage noted that is small amount. There are some faint erythema onto the ankle. Neurovascularly intact distally. General Extremety ED: Negative for edema General Extremity: Negative for edema Neuro oriented x3, CN's II-XII intact bilaterally, no sensory deficits noted and gait normal Sensorium / Orientation: awake, alert, oriented to person, oriented to place and oriented to time Motor Exam: strength 5/5 throughout and strength abnormal Psych mental status grossly normal Skin no rashes or lesions noted and no wounds MDM MDM MDM Narrative Medical decision making narrative: IV line established on arrival. Lab work-up showed a normal white count of 10.1 and normal lactate of 1.1. X-ray of her foot showed some emphysematous changes within the soft tissues consistent with infection. Patient has multiple drug allergies to antibiotics and discussed this with hospitalist and he will order antibiotic regimen for patient. She does tell me that she was recently on vancomycin as well as doxycycline and Bactrim and tolerated those well. Patient finished antibiotics 8 days ago. Patient also having diarrhea now. I did order stool for C. difficile. Case discussed with hospitalist will evaluate patient for admission. Lab Data Labs: Laboratory Results - last 24 hr 08/29/22 08/29/22 08/29/22 00:00 00:00 00:00 WBC 10.1 RBC 3.57 L Hgb 11.4 L Hct 33.9 L MCV 95.0 MCH 31.9 MCHC 33.6 RDW Std Deviation 46.1 H RDW Coeff of Xin 13.2 Plt Count 253 MPV 10.5 Immature Gran % (Auto) 0.300 Neut % (Auto) 47.1 Lymph % (Auto) 38.0 [place] % (Auto) 6.8 Eos % (Auto) 6.4 H Baso % (Auto) 1.4 H Absolute Neuts (auto) 4.8 Absolute Lymphs (auto) 3.85 Nucleated RBC % 0 Sodium 138 Potassium 5.0 Chloride 109 H Carbon Dioxide 25.0 Anion Gap 4 L BUN 12 Creatinine 0.76 Estim Creat Clear Calc 47.79 Est GFR (MDRD) Af Amer 98 Est GFR (MDRD) Non-Af 81 BUN/Creatinine Ratio 15.8 Glucose 115 H Lactic Acid 1.1 Calcium 8.7 Radiography Diagnostic Testing: Clinical Impression(s) from Imaging Studies Foot X-Ray 08/28/22 23:23 IMPRESSION: Soft tissue swelling dorsal to the metatarsals with probable subcutaneous emphysema in this area due to soft tissue infection. No lytic osseous lesion identified to indicate osteomyelitis. Electronically Signed: Nathan Arredondo MD at 0:13 EDT , Three-view x-rays of the right foot obtained interpreted by myself no fractures or dislocations. She did appear to have some air within the soft tissues. Radiology in agreement. I did not see any evidence of ostial myelitis. EKG Initial EKG: Attestation: I personally reviewed and interpreted this EKG as follows: Comments: Sign through the with a rate of 62 bpm with no acute ST segment changes. No hyperkalemic changes noted. Discharge Plan Dx/Rx/DC Orders Clinical Impression: Diabetic foot infection, Diabetes, Diarrhea, Cellulitis of foot, right Disposition Disposition: Acute Care Hospital [facility]
--- NOTE | 2022-08-28 23:23 | RAD_ITS ---
EXAM: XR RIGHT FOOT COMPLETE, 3 OR MORE VIEWS CLINICAL INDICATION: chronic wound infected TECHNIQUE: Frontal, lateral and oblique views of the right foot. This report was created using [employer] report generation technology. COMPARISON: No comparison studies of the right foot are available. Correlation is made with preoperative left foot radiographs of 02/01/2021. FINDINGS: BONES/JOINTS: The osseous structures are demineralized. A large plantar calcaneal spur is present. Mild degenerative narrowing of the interphalangeal joints. No acute fracture. No subluxation. Normal alignment. No sclerotic or destructive changes observed. SOFT TISSUES: Vascular location calcification is present. Marked soft tissue swelling noted dorsal to the metatarsals on the lateral view, with probable subcutaneous emphysema in this area. No radiopaque foreign body. RAD/Foot min 3 Views IMPRESSION: Soft tissue swelling dorsal to the metatarsals with probable subcutaneous emphysema in this area due to soft tissue infection. No lytic osseous lesion identified to indicate osteomyelitis. Electronically Signed: Nathan Arredondo MD at 0:13 EDT ,
[2022-08-28 23:50] VITALS: BP 154/107; PULSE 67; RESP 16; TEMP 36.5; O2SAT 96
[2022-08-29] VITALS (13 sets, daily range): BP systolic 141–187; BP diastolic 74–102; PULSE 67–78; RESP 16–17; TEMP 36.5–36.8; O2SAT 95–99; BMI 27.8
[2022-08-29] MEDS: 0.9% Normal Saline 1,000 ML 1000 ML IV (00:11)
[2022-08-29 00:27] LABS: Absolute Lymphocyte Count 3.85 X10^3/uL (0.83-4.51); Absolute Neutrophil Count 4.8 X10^3/uL (2.0-7.7); Basophil# 0.14 X10^3/uL; Basophil% 1.4 % (0-1); Eosinophil# 0.65 X10^3/uL; Eosinophils% 6.4 % (0-5); Hematocrit 33.9 % (37-47); Hemoglobin 11.4 g/dL (12.0-15.0); Lymphocyte # 3.85 X10^3/ul (0.83-4.51); Mean Corp Hgb Conc 33.6 g/dL (32-36); Mean Corpuscular Hgb 31.9 pg (27.0-32.0); Mean Platelet Vol. 10.5 fl (6.2-12.0); Monocyte# 0.69 X10^3/uL; Monocyte% 6.8 % (0-10); NRBC Flagged by Analyzer 0 % (0-5); Neutrophil # 4.76 X10^3/uL (2.7-7.7); Neutrophil % 47.1 % (47-70); Platelet Count 253 K/mm3 (150-450); RBC Distribution Width CV 13.2 % (11.6-14.6); RBC Distribution Width SD 46.1 fl (35.1-43.9); Red Blood Count 3.57 M/mm3 (4.2-5.4); White Blood Count 10.1 K/mm3 (4.4-11.0)
[2022-08-29 00:38] LABS: Anion Gap 4 (5-15); BUN 12 mg/dL (7-18); BUN/Creat Ratio 15.8 RATIO (10-20); Calcium,Total 8.7 mg/dL (8.5-10.1); Chloride 109 mmol/L (98-107); Creatinine, Serum 0.76 mg/dL (0.55-1.02); EST Glomerular Filtration Rate 81 mL/min (>60); Est Glom Filt Rate - Afr Amer 98 mL/min (>60); Estimated Creatinine Clearance 47.79 ml/min; Glucose 115 mg/dL (74-106); Sodium Level 138 mmol/L (136-145)
[2022-08-29 00:41] LABS: Lactic Acid 1.1 mmol/L (0.4-1.9)
[2022-08-29] MEDS: 0.9% Normal Saline 1,000 ML 150 ML IV (01:43)
--- NOTE | 2022-08-29 02:12 | HP.PCM.HOS_ITS ---
HPI - General General Date of Admission: 08/29/22 Date of Service: 08/29/22 Chief Complaint: right heel drainage. [facility] Narrative RED PRICE, is a 67 F who presents with greenish drainage coming from her right heel. Patient has been involved with wound care for months for this and has been doing well but yesterday it started oozing green fluid. Is a concern present to the emergency room. X-ray showed soft tissue swelling dorsal to the metatarsals with probable subcutaneous emphysema in the area due to soft tissue swelling. The hospital service was contacted for admission. Patient has been recently treated for this infection with Bactrim and doxycycline. 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 She is not currently having any diarrhea at this time but she is certainly very concerned about her C. difficile recurring with going back on antibiotics. [facility] Medical History Asthma Asthma Decubitus ulcer of left buttock, stage 3 Decubitus ulcer of right heel, stage 3 Deep venous thrombosis of distal end of left lower extremity Diabetic foot ulcer Diarrhea Gastroesophageal reflux disease History of cerebrovascular accident History of deep venous thrombosis (DVT) of distal vein of left lower extremity History of ischemic colitis History of myocardial infarction Ischemic colitis Migraine Osteoarthritis of cervical and lumbar spine Pressure ulcer of right heel, stage 3 Skin ulcer of finger with fat layer exposed Type 2 diabetes mellitus Type 2 diabetes mellitus with diabetic polyneuropathy Ulcer of amputation stump of foot Home Medications albuterol sulfate 90 mcg/actuation aerosol inhaler (Ventolin HFA) 1 puff inhalation Q4H PRN PRN SHORTNESS OF BREATH #0 grams 03/25/21 [Rx Last Taken Unknown] arginine 7 gram-glutam 7 gram-CaHMB 1.5 [id number]-numah-gk-min oral pwd pkt (Alfredo (with collagen)) 1 packet PO BIDCM #0 ea 03/25/21 [Rx Last Taken 08/30/21] guaifenesin 600 mg tablet, extended release 12 hr (Mucus Relief ER) 1,200 mg PO BID #0 tabs 03/25/21 [Rx Last Taken 08/30/21] menthol 0.44 %-zinc oxide 20.6 % topical ointment (Calmoseptine) 1 applic topical BID #0 grams 03/25/21 [Rx Last Taken 08/30/21] nystatin 100,000 unit/gram topical powder (Nyamyc) 1 applic topical TID #0 grams 03/25/21 [Rx Last Taken 08/30/21] ondansetron 4 mg disintegrating tablet 4 mg PO Q6H PRN PRN NAUSEA #0 tabs 03/25/21 [Rx Last Taken Unknown] tramadol 50 mg tablet 50 mg PO Q6H PRN Pain 05/18/21 [History Last Taken Unknown] acidophilus 25 million cell-pectin, citrus 100 mg tablet 1 tab PO BID 08/31/21 [History Last Taken 08/30/21] cholecalciferol (vitamin D3) 50 mcg (2,000 unit) capsule 2,000 unit PO DAILY 08/31/21 [History Last Taken 08/30/21] pantoprazole 40 mg tablet,delayed release 40 mg PO BIDCM #60 tabs 09/04/21 [Rx Last Taken Unknown] hydrocortisone 2.5 % topical cream with perineal applicator 1 applic [place] QD-BID PRN Fissure #30 grams 09/07/21 [Rx Last Taken Unknown] Db 7 2 cap Q8 blood sugar 12/16/21 [History Last Taken Unknown] budesonide 3 mg capsule,delayed,extended release 9 mg PO DAILY #90 ea 03/08/22 [Rx Last Taken Unknown] folic acid 1 mg tablet 1 mg PO DAILY #30 tabs 03/08/22 [Rx Last Taken Unknown] diphenoxylate-atropine 2.5 mg-0.025 mg tablet (Lomotil) 1 tab PO BID PRN diarrhea #60 tabs 08/25/22 [Rx Last Taken Unknown] sulfasalazine 500 mg tablet 500 mg PO BID 08/28/22 [History Last Taken Unknown] Allergy/AdvReac Type Severity Reaction Status Date / Time cefprozil Allergy Shortness Verified 08/28/22 22:50 of breath ceftriaxone Allergy Hives Verified 08/28/22 22:50 clindamycin Allergy Rash Verified 08/28/22 22:50 enalapril Allergy Other Verified 08/28/22 22:50 enoxaparin Allergy Rash Verified 08/28/22 22:50 heparin Allergy Rash Verified 08/28/22 22:50 levalbuterol Allergy Other Verified 08/28/22 22:50 morphine Allergy Shortness Verified 08/28/22 22:50 of breath Penicillins Allergy Anaphylaxis Verified 08/28/22 22:50 shellfish derived Allergy Anaphylaxis Verified 08/28/22 22:50 valsartan Allergy Other Verified 08/28/22 22:50 vancomycin Allergy Rash Verified 08/28/22 22:50 Family History Mother Cancer Lung CA w/ tobacco use history. Diabetes COPD (chronic obstructive pulmonary disease) Father Cancer Lung CA w/ tobacco use history. Diabetes COPD (chronic obstructive pulmonary disease) Heart disease Surgical History History of appendectomy History of eye surgery History of foot surgery History of lumpectomy History of tubal ligation Status post transmetatarsal amputation of left foot Social History household members: none Smoking Status: Never smoker alcohol intake: never substance use type: does not use ROS ROS Narrative States that her stump on her left side is overall healing. Abdomen is solid. No fever or chills. All review of systems were negative except as mentioned above in the history of present illness and the other review of systems. Vital Signs Vital Signs Vital Signs: 08/28/22 22:48 08/28/22 22:50 08/28/22 23:50 Temperature 36.3 C L 36.5 C L 36.5 C L Temperature Source Temporal Oral Oral Pulse Rate 66 68 67 Respiratory Rate 16 16 16 Blood Pressure 207/88 H 182/90 H 154/107 H Blood Pressure Mean 127 120 122 Pulse Ox 99 95 96 Oxygen Delivery Method Room Air Room Air Room Air 08/29/22 00:15 08/29/22 01:00 08/29/22 01:00 Temperature 36.5 C L 36.6 C 36.6 C Temperature Source Oral Oral Oral Pulse Rate 67 69 78 Respiratory Rate 16 16 16 Blood Pressure 165/102 H 186/78 H 187/78 H Blood Pressure Mean 123 114 114 Pulse Ox 97 97 96 Oxygen Delivery Method Room Air Room Air Room Air Weight Weight: 70.307 kg Body Mass Index (BMI) 26.6 Physical Exam Const alert and no apparent distress HEENT normocephalic and head/scalp atraumatic Resp normal respiratory effort, no retractions, no use of accessory muscles and clear to auscultation bilaterally Cardio regular rate, regular rhythm, S1 normal heart sound and S2 normal heart sound GI normal to inspection, nondistended, normoactive bowel sounds, soft to palpation, non-tender and non-distended Extremity Extremity Narrative: Left stump was bandaged, did not remove. Right foot was edematous with a ulceration on her right heel. No crepitus was appreciated. Right dorsalis pedal pulse was +2. The Neuro moves all extremities Psych affect normal Results Lab / Micro Data Result Diagrams: 08/29/22 00:00 08/29/22 00:00 Labs: Laboratory Results - last 24 hr 08/29/22 00:00: WBC 10.1, RBC 3.57 L, Hgb 11.4 L, Hct 33.9 L, MCV 95.0, MCH 31.9, MCHC 33.6, RDW Std Deviation 46.1 H, RDW Coeff of Xin 13.2, Plt Count 253, MPV 10.5, Immature Gran % (Auto) 0.300, Neut % (Auto) 47.1, Lymph % (Auto) 38.0, [place] % (Auto) 6.8, Eos % (Auto) 6.4 H, Baso % (Auto) 1.4 H, Absolute Neuts (auto) 4.8, Absolute Lymphs (auto) 3.85, Nucleated RBC % 0 08/29/22 00:00: Sodium 138, Potassium 5.0, Chloride 109 H, Carbon Dioxide 25.0, Anion Gap 4 L, BUN 12, Creatinine 0.76, Estim Creat Clear Calc 47.79, Est GFR (MDRD) Af Amer 98, Est GFR (MDRD) Non-Af 81, BUN/Creatinine Ratio 15.8, Glucose 115 H, Calcium 8.7 08/29/22 00:00: Lactic Acid 1.1 Radiology Impression Foot X-Ray 08/28/22 23:23 IMPRESSION: Soft tissue swelling dorsal to the metatarsals with probable subcutaneous emphysema in this area due to soft tissue infection. No lytic osseous lesion identified to indicate osteomyelitis. Electronically Signed: Nathan Arredondo MD at 0:13 EDT , Assessment & Plan Assessment/Plan (1) Diabetic foot infection: PLAN: Patient is not septic Plan: * Additional studies: ESR, CRP, MRI foot * Follow-up wound culture * Consult podiatry and infectious disease * Nonweightbearing to the right foot * Antibiotics with meropenem and linezolid. Patient developed a rash with vancomycin. * Consult wound care (2) Clostridium difficile infection: PLAN: Not active but does have a history of this and is just recently disc ontinued oral vancomycin while she was on oral antibiotics about 8 days ago. We will start her on vancomycin 125 mg daily. Patient has allergy to vancomycin but that is the IV. Patient has recently taken oral vancomycin. Will defer to infectious disease if they feel that this is appropriate or if that should be changed. We will continue with a low Elke but if patient actually does develop C. difficile they will need to be discontinued. PLAN: Plan Chronic conditions * Diabetes mellitus type 2: A1c was December 16. Sliding scale insulin * Asthma: Continue with albuterol * History of ischemic colitis: Stable. VTE prophylaxis: I am using SCDs as patient has allergy to enoxaparin and heparin. CODE STATUS: Discussed with patient. Patient wishes to be full code. Charges/Coding Visit Charges Inpatient E&M: 81130 Init Hosp L3
--- NOTE | 2022-08-29 02:39 | MRI_ITS ---
STUDY: MRI RIGHT REARFOOT WITHOUT CONTRAST REASON FOR EXAM: Female, 67 years old. right heel infection/lesion TECHNIQUE: Standardized fat and water weighted pulse sequences were obtained in all 3 orthogonal planes. COMPARISON: X-ray of the right foot dated August 28, 2022 FINDINGS: Small open/ulcerated skin defect is seen in the posterior plantar aspect of the calcaneus with associated edema and a tiny focus of air. No abscess is present. There is no marrow edema or cortical erosion in the underlying bony structures. Mild to moderate subcutaneous edema is present in the lower leg and foot. A small ankle joint effusion is also present. Small intraosseous cyst is noted in the proximal one third aspect of the second metatarsal bone. The remaining metatarsal bases are normal. A 2.99 cm benign ovoid encapsulated subcutaneous lipoma is present on the medial side of the anterior process and body of the calcaneus. There is mild fluid distention/tenosynovitis of the posterior tibialis tendon sheath with an intrinsic normal tendon. Normal flexor digitorum longus tendon. Normal flexor hallucis longus tendon. Normal peroneus longus and brevis tendons. Normal tibialis anterior tendon. Normal extensor hallucis longus tendon. Normal extensor digitorum longus tendons. Normal Achilles tendon and teno-osseous insertion. A small to moderate-sized plantar calcaneal spur is present at the midline. Normal plantar fascia. Normal plantar calcaneal tubercles. There is diffuse edematous/reactive signal throughout the muscles and mild to moderate fatty atrophy consistent with sequela chronic neuropathy. Normal distal tibiofibular syndesmotic ligamentous complex. Normal lateral ligamentous complex. Normal subtalar ligaments and sinus tarsi. Normal deltoid ligamentous complexes. Normal plantar calcaneonavicular (spring) ligament. Normal tibiotalar articulation. Normal talar dome. Normal subtalar articulations. Normal talonavicular articulation. Normal calcaneocuboid articulation. Normal navicular-cuneiform articulations. MRI/Lower Ext/No Jt/w/o IMPRESSION: 1. Small open/ulcerated skin defect is seen in the posterior plantar aspect of the calcaneus with associated edema and a tiny focus of air. No abscess is present. 2. No evidence of osteomyelitis/marrow edema or cortical erosion in the underlying bony structures. 3. Mild to moderate subcutaneous edema 4. A 2.99 cm benign ovoid encapsulated subcutaneous lipoma is present on the medial side of the anterior process and body of the calcaneus. 5. Mild tenosynovitis of the posterior tibialis tendon. Electronically Signed: Mirza Wagoner MD at 11:10 EDT ,
[2022-08-29 03:35] LABS: CRP 9.86 mg/L (0.0-3.0)
[2022-08-29 04:02] LABS: Erythrocyte Sedimentation Rate 73 mm/hr (0-30)
[2022-08-29] MEDS: Nystatin Powder 15gm Bottle 1 APPLIC TOPICAL ×3 (04:20→22:36)
[2022-08-29] MEDS: Menthol/Lanolin/Calamine/Znox 113 GM Tube 1 APPLIC TOPICAL ×2 (04:21→22:36)
[2022-08-29] MEDS: Acetaminophen 500 MG Tablet 1000 MG PO ×3 (06:19→22:36)
[2022-08-29 06:45] LABS: Bedside Glucose 90 mg/dL (74-106)
[2022-08-29 07:04] LABS: Absolute Lymphocyte Count 3.84 X10^3/uL (0.83-4.51); Basophil# 0.14 X10^3/uL; Basophil% 1.4 % (0-1); Eosinophil# 0.57 X10^3/uL; Eosinophils% 5.5 % (0-5); Hematocrit 29.1 % (37-47); Hemoglobin 9.9 g/dL (12.0-15.0); Lymphocyte # 3.84 X10^3/ul (0.83-4.51); Lymphocyte % 37.4 % (19-41); Mean Corpuscular Hgb 32.4 pg (27.0-32.0); Mean Corpuscular Volume 95.1 fL (81-99); Mean Platelet Vol. 10.7 fl (6.2-12.0); Monocyte# 0.74 X10^3/uL; Monocyte% 7.2 % (0-10); NRBC Flagged by Analyzer 0 % (0-5); Neutrophil # 4.97 X10^3/uL (2.7-7.7); Neutrophil % 48.3 % (47-70); Platelet Count 218 K/mm3 (150-450); RBC Distribution Width CV 13.1 % (11.6-14.6); RBC Distribution Width SD 45.1 fl (35.1-43.9); Red Blood Count 3.06 M/mm3 (4.2-5.4); White Blood Count 10.3 K/mm3 (4.4-11.0)
[2022-08-29 07:13] LABS: Anion Gap 5 (5-15); BUN 11 mg/dL (7-18); BUN/Creat Ratio 18.3 RATIO (10-20); Calcium,Total 8.3 mg/dL (8.5-10.1); Chloride 113 mmol/L (98-107); EST Glomerular Filtration Rate 106 mL/min (>60); Est Glom Filt Rate - Afr Amer 128 mL/min (>60); Estimated Creatinine Clearance 47.79 ml/min; Glucose 90 mg/dL (74-106); Potassium 4.6 mmol/L (3.5-5.1); Sodium Level 140 mmol/L (136-145)
--- NOTE | 2022-08-29 07:29 | ART_ITS ---
Reason For Study: Ulcer Procedure A bilateral lower extremity continuous wave Doppler with analog waveform analysis,segmental pressures,and ankle brachial indexes without exercise. Left Segmental Pressures Left posterior tibial artery = >254mmHg. Left dorsalis pedis artery = 199mmHg. Right Segmental Pressures Right brachial= 141mmHg. Right posterior tibial artery = >254mmHg. Right dorsalis pedis artery = >254mmHg. Right digit = 1.16 mmHg. Indices The right ankle brachial index by the posterior tibial artery is NC. The right ankle brachial index by the dorsalis pedis is NC. The right digital-brachial index is 1.16. The left ankle brachial index by the posterior tibial artery is NC. The left ankle brachial index by the dorsalis pedis is 1.41. VL/Lower Ext Art Exam w/o Exercis Interpretation Summary Unable to calculate right PT and DP ankle-brachial index due to noncompressibil ity. Normal triphasic right PT and DP Doppler waveforms Normal right digital brachial index though possibly artificially augmented Unable to determine left PT ankle-brachial index due to noncompressibility Left DP index 1.41 again appears to be artificially elevated. Normal triphasic left PT and DP Doppler waveforms Bilateral lower extremity volume pulse recordings appear relatively normal Medial calcification of arteries suspected. Interpretation made upon waveforms suggesting mild disease bilaterally. Clinical correlation would be appropriate. Ordering Physician: Juan Amador Referring Physician: Cody Billings Performed By: EVELIN JOSEPH RVT
--- NOTE | 2022-08-29 07:30 | CON.PCM_ITS ---
Assessment & Plan Assessment/Plan (1) Type 2 diabetes mellitus with diabetic polyneuropathy: PLAN: Patient examined evaluated, all findings renea with patient in detail. Wound appears stable with superficial cellulitis. Minimal concern for deep infection at this time. Patient vitally stable, no leukocytosis, elevated ESR/CRP. Radiographs reviewed radiology read demonstrates possible dorsal foot soft tissue gas. Upon personal read there is no evidence of gas this is the septae of subcutaneous fat should have been expanded secondary to dorsal midfoot edema. This also does not clinic please correlate to site of infection to the right feet foot. There is noted to be arterial calcifications radiographically. Arterial studies ordered. MRI has been ordered. At this time I recommend local wound care with observation for cellulitis resolution. No plan for surgical intervention at this time. We will await wound cultures. Wound today was examined and redressed with Betadine paint 4 x 4's Kerlix and a dry sterile dressing. Will continue to follow closely. (2) Non-pressure chronic ulcer of other part of right foot with fat layer exposed: HPI Consult Data Date of Consult: 08/29/22 HPI Narrative HPI Narrative: RED PRICE, is a 67 F who presents to hospital and was admitted for worsening right heel wound infection. Patient is followed in the wound care center by combination of Dr. Murphy and Dr. Evans. She most recently saw Dr. Murphy. She denies constitutional symptoms at current but noted some increased drainage to the site and per the recommendation of her home health care she came into the emergency room overnight and was admitted. At this time patient is awake alert oriented person place and time has no constitutional symptoms or pain no other complaints at this time. Patient has a history of a left transmetatarsal amputation and previous heel ulcer. These have both healed at this time. [facility] Medical History Asthma Asthma Decubitus ulcer of left buttock, stage 3 Decubitus ulcer of right heel, stage 3 Deep venous thrombosis of distal end of left lower extremity Diabetic foot ulcer Diarrhea Gastroesophageal reflux disease History of cerebrovascular accident History of deep venous thrombosis (DVT) of distal vein of left lower extremity History of ischemic colitis History of myocardial infarction Ischemic colitis Migraine Osteoarthritis of cervical and lumbar spine Pressure ulcer of right heel, stage 3 Skin ulcer of finger with fat layer exposed Type 2 diabetes mellitus Type 2 diabetes mellitus with diabetic polyneuropathy Ulcer of amputation stump of foot Home Medications albuterol sulfate 90 mcg/actuation aerosol inhaler (Ventolin HFA) 1 puff inhalation Q4H PRN PRN SHORTNESS OF BREATH #0 grams 03/25/21 [Rx Last Taken Unknown] arginine 7 gram-glutam 7 gram-CaHMB 1.5 [id number] oral pwd pkt (Alfredo (with collagen)) 1 packet PO BIDCM #0 ea 03/25/21 [Rx Last Taken 08/28/22] guaifenesin 600 mg tablet, extended release 12 hr (Mucus Relief ER) 1,200 mg PO BID #0 tabs 03/25/21 [Rx Last Taken 08/28/22] menthol 0.44 %-zinc oxide 20.6 % topical ointment (Calmoseptine) 1 applic topical BID #0 grams 03/25/21 [Rx Last Taken 08/30/21] nystatin 100,000 unit/gram topical powder (Nyamyc) 1 applic topical TID #0 grams 03/25/21 [Rx Last Taken 08/30/21] ondansetron 4 mg disintegrating tablet 4 mg PO Q6H PRN PRN NAUSEA #0 tabs 03/25/21 [Rx Last Taken Unknown] tramadol 50 mg tablet 50 mg PO Q6H PRN Pain 05/18/21 [History Last Taken Unknown] acidophilus 25 million cell-pectin, citrus 100 mg tablet 1 tab PO BID probiotic 08/31/21 [History Last Taken 08/28/22] cholecalciferol (vitamin D3) 50 mcg (2,000 unit) capsule 2,000 unit PO DAILY supplement 08/31/21 [History Last Taken 08/28/22] pantoprazole 40 mg tablet,delayed release 40 mg PO BIDCM #60 tabs 09/04/21 [Rx Last Taken 08/28/22] hydrocortisone 2.5 % topical cream with perineal applicator 1 applic CO QD-BID PRN Fissure #30 grams 09/07/21 [Rx Last Taken Unknown] Db 7 2 cap PO.IVFORM Q8 blood sugar 12/16/21 [History Last Taken 08/28/22] budesonide 3 mg capsule,delayed,extended release 9 mg PO DAILY #90 ea 03/08/22 [Rx Last Taken 08/28/22] folic acid 1 mg tablet 1 mg PO DAILY #30 tabs 03/08/22 [Rx Last Taken 08/28/22] diphenoxylate-atropine 2.5 mg-0.025 mg tablet (Lomotil) 1 tab PO BID PRN diarrhea #60 tabs 08/25/22 [Rx Last Taken 08/28/22] sulfasalazine 500 mg tablet 500 mg PO BID stomach 08/28/22 [History Last Taken 08/28/22] gabapentin 300 mg QHS neuropathy 08/29/22 [History Last Taken 08/27/22 21:00] gabapentin 100 mg capsule 100 mg DAILY neuropathy 08/29/22 [History Last Taken 08/28/22 09:00] Allergy/AdvReac Type Severity Reaction Status Date / Time cefprozil Allergy Shortness Verified 08/28/22 22:50 of breath ceftriaxone Allergy Hives Verified 08/28/22 22:50 clindamycin Allergy Rash Verified 08/28/22 22:50 enalapril Allergy Other Verified 08/28/22 22:50 enoxaparin Allergy Rash Verified 08/28/22 22:50 heparin Allergy Rash Verified 08/28/22 22:50 levalbuterol Allergy Other Verified 08/28/22 22:50 morphine Allergy Shortness Verified 08/28/22 22:50 of breath Penicillins Allergy Anaphylaxis Verified 08/28/22 22:50 shellfish derived Allergy Anaphylaxis Verified 08/28/22 22:50 valsartan Allergy Other Verified 08/28/22 22:50 vancomycin Allergy Rash Verified 08/28/22 22:50 Family History Mother Cancer Lung CA w/ tobacco use history. Diabetes COPD (chronic obstructive pulmonary disease) Father Cancer Lung CA w/ tobacco use history. Diabetes COPD (chronic obstructive pulmonary disease) Heart disease Surgical History History of appendectomy History of eye surgery History of foot surgery History of lumpectomy History of tubal ligation Status post transmetatarsal amputation of left foot Social History household members: none Smoking Status: Never smoker alcohol intake: never substance use type: does not use ROS Constitutional Constitutional: Denies difficulty sleeping, malaise or night sweats Eyes Eyes: Denies bloody eye, discharge from eye(s) or foreign body ENT HEENT: Denies dental pain, halitosis or nasal congestion Cardiovascular Cardiovascular: Reports claudication and easily tiring during activity; Denies clubbing Respiratory/Chest Respiratory/Chest: Denies change in phlegm color, dyspnea on exertion or nail bed cyanosis Gastrointestinal Gastrointestinal: Reports change in bowel habits and change in stool character; Denies coffee ground emesis Genitourinary Genitourinary: Denies erectile dysfunction, genital pain or penile swelling Physical Exam Narrative Patient alert oriented to person place and time. Vascular: Dorsalis pedis posterior tibial pulses palpable 1 out of 4 to bilateral lower extremity. +1 pitting edema noted to dorsal right foot. Focal increase in warmth erythema edema to periwound area on the right heel. Neurologic: Light touch protective sensation absent to bilateral feet. Dermatologic: Full-thickness wound noted to the plantar right heel with a mixed fibrotic granular base with periwound erythema edema and warmth. No evidence of crepitus or fluctuance. Minimal drainage noted. Musculoskeletal: Left transmetatarsal amputation noted no other gross musculoskeletal deformity that he would be causing wound formation. No pain with calf squeeze or palpation of popliteal fossa that may be suggestive of DVT. Lab / Micro Data Result Diagrams: 08/29/22 06:05 08/29/22 06:05 Labs: Laboratory Results - last 24 hr 08/29/22 00:00: WBC 10.1, RBC 3.57 L, Hgb 11.4 L, Hct 33.9 L, MCV 95.0, MCH 31.9, MCHC 33.6, RDW Std Deviation 46.1 H, RDW Coeff of Xin 13.2, Plt Count 253, MPV 10.5, Immature Gran % (Auto) 0.300, Neut % (Auto) 47.1, Lymph % (Auto) 38.0, [place] % (Auto) 6.8, Eos % (Auto) 6.4 H, Baso % (Auto) 1.4 H, Absolute Neuts ( auto) 4.8, Absolute Lymphs (auto) 3.85, Nucleated RBC % 0 08/29/22 00:00: Sodium 138, Potassium 5.0, Chloride 109 H, Carbon Dioxide 25.0, Anion Gap 4 L, BUN 12, Creatinine 0.76, Estim Creat Clear Calc 47.79, Est GFR (MDRD) Af Amer 98, Est GFR (MDRD) Non-Af 81, BUN/Creatinine Ratio 15.8, Glucose 115 H, Calcium 8.7 08/29/22 00:00: Lactic Acid 1.1 08/29/22 00:00: ESR 73 H 08/29/22 00:00: C-React Prot Ext Range 9.86 H 08/29/22 06:05: WBC 10.3, RBC 3.06 L, Hgb 9.9 L, Hct 29.1 L, MCV 95.1, MCH 32.4 H, MCHC 34.0, RDW Std Deviation 45.1 H, RDW Coeff of Xin 13.1, Plt Count 218, MPV 10.7, Immature Gran % (Auto) 0.200, Neut % (Auto) 48.3, Lymph % (Auto) 37.4, [place] % (Auto) 7.2, Eos % (Auto) 5.5 H, Baso % (Auto) 1.4 H, Absolute Neuts (auto) 5.0, Absolute Lymphs (auto) 3.84, Nucleated RBC % 0 08/29/22 06:05: Sodium 140, Potassium 4.6, Chloride 113 H, Carbon Dioxide 22.0, Anion Gap 5, BUN 11, Creatinine 0.60, Estim Creat Clear Calc 47.79, Est GFR (MDRD) Af Amer 128, Est GFR (MDRD) Non-Af 106, BUN/Creatinine Ratio 18.3, Glucose 90, Calcium 8.3 L 08/29/22 06:18: POC Glucose 90 Radiology Impression Foot X-Ray 08/28/22 23:23 IMPRESSION: Soft tissue swelling dorsal to the metatarsals with probable subcutaneous emphysema in this area due to soft tissue infection. No lytic osseous lesion identified to indicate osteomyelitis. Electronically Signed: Nathan Arredondo MD at 0:13 EDT ,
[2022-08-29] MEDS: Glucerna Shake 120 ML LIQUID PO ×3 (07:58→16:24)
[2022-08-29] MEDS: Folic Acid 1 MG Tablet PO (07:58)
[2022-08-29] MEDS: Juven (unflavored) Packet 1 PACKET PO ×2 (07:58→16:23)
[2022-08-29] MEDS: Pantoprazole Sodium 40 MG Tablet PO ×2 (07:59→16:24)
--- NOTE | 2022-08-29 08:11 | WOUNDNOTE ---
wound photo: right heel
[2022-08-29] MEDS: sulfaSALAzine 500 MG Tablet PO ×2 (08:52→16:23)
[2022-08-29] MEDS: 0.9% Saline Lock 10 ML Syringe IV ×3 (09:33→23:44)
[2022-08-29] MEDS: Linezolid 600 MG 600 MG/300 ML BAG 200 MG IV ×2 (10:52→21:01)
[2022-08-29] MEDS: guaiFENesin 1,200 MG Tablet 1200 MG PO ×2 (10:53→22:36)
[2022-08-29] MEDS: Cholecalciferol (VIT D3) 25 MCG TABLET (1,000 UNITS) 50 MCG PO (10:53)
[2022-08-29] MEDS: Vancomycin 125 MG/5 ML Susp PO.SYRINGE PO (10:53)
--- NOTE | 2022-08-29 11:07 | PN.HOSP_ITS ---
Subjective Subjective Follow-up for right foot infection. Objective Data Objective Data Vital Signs: Vital Signs Temp Pulse Resp BP Pulse Ox O2 Del Method 98.1 F 71 16 150/86 H 95 Room Air 08/29/22 09:12 08/29/22 09:12 08/29/22 09:12 08/29/22 09:12 08/29/22 09:12 08/29/22 09:12 Oxygen Delivery Method Room Air Weight: 161 lb 13.109 oz Body Mass Index (BMI) 27.8 Intake & Output: Intake and Output for Last 24 Hours 08/27/22 08/28/22 08/29/22 23:59 23:59 23:59 Intake Total 1507.5 / 1507.5 Output Total 700 / 700 Balance 807.5 / 807.5 Lab / Micro Data Result Diagrams: 08/29/22 06:05 08/29/22 06:05 Labs: Laboratory Results - last 24 hr 08/29/22 00:00: WBC 10.1, RBC 3.57 L, Hgb 11.4 L, Hct 33.9 L, MCV 95.0, MCH 31.9, MCHC 33.6, RDW Std Deviation 46.1 H, RDW Coeff of Xin 13.2, Plt Count 253, MPV 10.5, Immature Gran % (Auto) 0.300, Neut % (Auto) 47.1, Lymph % (Auto) 38.0, [place] % (Auto) 6.8, Eos % (Auto) 6.4 H, Baso % (Auto) 1.4 H, Absolute Neuts (auto) 4.8, Absolute Lymphs (auto) 3.85, Nucleated RBC % 0 08/29/22 00:00: Sodium 138, Potassium 5.0, Chloride 109 H, Carbon Dioxide 25.0, Anion Gap 4 L, BUN 12, Creatinine 0.76, Estim Creat Clear Calc 47.79, Est GFR (MDRD) Af Amer 98, Est GFR (MDRD) Non-Af 81, BUN/Creatinine Ratio 15.8, Glucose 115 H, Calcium 8.7 08/29/22 00:00: Lactic Acid 1.1 08/29/22 00:00: ESR 73 H 08/29/22 00:00: C-React Prot Ext Range 9.86 H 08/29/22 06:05: WBC 10.3, RBC 3.06 L, Hgb 9.9 L, Hct 29.1 L, MCV 95.1, MCH 32.4 H, MCHC 34.0, RDW Std Deviation 45.1 H, RDW Coeff of Xin 13.1, Plt Count 218, MPV 10.7, Immature Gran % (Auto) 0.200, Neut % (Auto) 48.3, Lymph % (Auto) 37.4, [place] % (Auto) 7.2, Eos % (Auto) 5.5 H, Baso % (Auto) 1.4 H, Absolute Neuts (auto) 5.0, Absolute Lymphs (auto) 3.84, Nucleated RBC % 0 08/29/22 06:05: Sodium 140, Potassium 4.6, Chloride 113 H, Carbon Dioxide 22.0, Anion Gap 5, BUN 11, Creatinine 0.60, Estim Creat Clear Calc 47.79, Est GFR (MDRD) Af Amer 128, Est GFR (MDRD) Non-Af 106, BUN/Creatinine Ratio 18.3, Glucose 90, Calcium 8.3 L 08/29/22 06:18: POC Glucose 90 Micro: Microbiology 08/29/22 00:55 Wound - Right Foot Gram Stain - Final Radiography Diagnostic Testing: Radiology Impression Foot X-Ray 08/28/22 23:23 IMPRESSION: Soft tissue swelling dorsal to the metatarsals with probable subcutaneous emphysema in this area due to soft tissue infection. No lytic osseous lesion identified to indicate osteomyelitis. Electronically Signed: Nathan Arredondo MD at 0:13 EDT , Physical Exam Narrative Seen and examined. No fever or chills. Heart rate and blood pressure in acceptable range. Physical exam General: Alert, Oriented x3, Cooperative HEENT: Atraumatic, PERRLA, EOMI, Normocephalic Oral: No Gingival or Mucosal Lesions/ Ulcerations Neck: Supple, No JVD, Negative Carotid Bruits Lungs: Air entry diminished in bilateral lung bases. No crepitation/rhonchi Cardiovascular: Regular rate, Regular Rhythm, Normal S1, Normal S2, No murmurs Abdomen: Bowel Sounds Present, Soft, Non Tender, Non-Distended : No renal angle tenderness. No suprapubic tenderness. Extremities: No edema, Capillary Refill Less than 3 Seconds Skin: No rashes, No breakdown Musculoskeletal: No Tenderness to Palpation of Joints or Extremities. Chronic left metatarsal amputation. Right nonhealing foot wound. Covered with dressing Neurological: Cranial nerves II-XII grossly intact, DTR 2+/4, peripheral neuropathy. Muscle strength 4/5 at knee and ankle joints. Psych/Mental Status: Flat affect. Assessment & Plan Assessment/Plan (1) Diabetic foot infection: PLAN: Patient is not septic clinically and by labs biochemical analysis Management plan: ESR and CRP elevated. MRI right foot shows a small open ulcerated skin defect in posterior plantar aspect of calcaneum with associated edema and tiny focus of air. No abscess present. No evidence of osteomyelitis/marrow edema or cortical lesion of underlying bony structures. Mild tenosynovitis of posterior tibialis tendon. LES shows normal right digital brachial index. Normal triphasic right PT and DP with Doppler waveform but unable to calculate right and left LOIS due to noncompressibility. Left DPA 1.41, seems artificially augmented Making Department Preparer is consulted. Currently on meropenem and linezolid. ID is consulted. Wound care consulted Clinical Impression(s) from Imaging Studies Foot X-Ray 08/28/22 23:23 IMPRESSION: Soft tissue swelling dorsal to the metatarsals with probable subcutaneous emphysema in this area due to soft tissue infection. No lytic osseous lesion identified to indicate osteomyelitis. Lower Extremity MRI 08/29/22 02:39 IMPRESSION: 1. Small open/ulcerated skin defect is seen in the posterior plantar aspect of the calcaneus with associated edema and a tiny focus of air. No abscess is present. 2. No evidence of osteomyelitis/marrow edema or cortical erosion in the underlying bony structures. 3. Mild to moderate subcutaneous edema 4. A 2.99 cm benign ovoid encapsulated subcutaneous lipoma is present on the medial side of the anterior process and body of the calcaneus. 5. Mild tenosynovitis of the posterior tibialis tendon. Extremity Arterial Study 08/29/22 07:29 Interpretation Summary Unable to calculate right PT and DP ankle-brachial index due to noncompressibility. Normal triphasic right PT and DP Doppler waveforms Normal right digital brachial index though possibly artificially augmented Unable to determine left PT ankle-brachial index due to noncompressibility Left DP index 1.41 again appears to be artificially elevated. Normal triphasic left PT and DP Doppler waveforms Bilateral lower extremity volume pulse recordings appear relatively normal Medial calcification of arteries suspected. Interpretation made upon waveforms suggesting mild disease bilaterally. Clinical correlation would be appropriate. (2) Clostridium difficile infection: PLAN: Not active but does have a history of this and is just recently discontinued oral vancomycin while she was on oral antibiotics about 8 days ago. on vancomycin 125 mg daily. Patient has allergy to vancomycin but that is the IV. Patient has recently taken oral vancomycin. ID consulted for further opinion. Will defer to infectious disease if they feel that this is appropriate or if that should be changed. PLAN: Plan Chronic conditions * Diabetes mellitus type 2: A1c was December 16. Accu-Chek SNS coverage below sliding scale * Asthma: Continue with albuterol * History of ischemic colitis: No acute issues. VTE prophylaxis: On SCDs as patient has allergy to enoxaparin and heparin. CODE STATUS: Discussed with patient. Patient wishes to be full code. Charges/Coding Visit Charges Inpatient E&M: 67854 Subs Hosp L2
[2022-08-29] MEDS: Budesonide 3 MG CAPSULE.EC 9 MG PO (11:34)
[2022-08-29 11:56] LABS: Bedside Glucose 137 mg/dL (74-106)
--- NOTE | 2022-08-29 13:04 | CASEMGMT ---
CINDI BLOUNT Assessment: Face to Face with pt for initial transition planning/care coordination assessment. CINDI BLOUNT introduced self and role at [facility], pt voices understanding and consents to assessment. Pt is A/O x4 and answers all questions appropriately at this time. Pt in bed. Appears to be in no distress. Care providers, pharmacy, and demographics verified/updated. Admitting Dx: Right foot infection. PCP: Awa. Specialists: Mary, Urology; Shin, GI; Sandi, Pulmonary; Edith- Neuro-ophthalmology; Katherine, Vacular; Nathan, Podiatry; Tuan, Oncology, Rafael, Nephrology. Preferred Pharmacy: [facility]. Insurance: Medicare Part A B, [employer] [place]. Prescription Benefit: yes. LW/HPOA: Pt reports having a LW/HPOA. Pt's sister is POA. Pt advised HPOA is on file at [facility] but not LW. LNOK: Prabha Welch, dtr; Jackie Silverman, sister. Living Arrangements: Pt's dtr lives with her in a one story, accessible apartment. Pt advised she will be homeless after 09/15. Pt said her from her. She has looked at [address] but [address] is counting her 's income even though they are . Pt cannot live with her other dtr due to the home not being accessible. Pt has a home but it's not accessible. Pt advised she is I in ADLs for the most part. However, her dtr assists if needed. Transportation: Pt was driving self but no longer has access to the van. Her children or sister can transport. DME/HHC/SNF: Pt reports having the following: power chair, hospital bed, grab bars, shower chair, BSC. Pt has a glucometer and necessary supplies. [facility] provides SN in the home. HH changes Pt's dressing once per week. Pt's dtr does the wound care the other days. Pt voiced how the wound is cared for and stated her dtr is comfortable with the dressing change. Pt did have PT, OT, and speech in the home previously. Pt has been to [facility] in the past. CINDI BLOUNT advised that pt may need to discuss the following: housing needs, prescription assistance, and transportation. Pt states no concerns with going home at time of dc. Pt states no further concerns/needs. CM to follow. Advised pt to ask CM if any further question/concerns/needs arise, voices understanding. Pt Goal: Home with HHC resuming. Plan: Home with HHC resuming.
--- NOTE | 2022-08-29 13:35 | PCM.CONS.GEN ---
Assessment & Plan Assessment/Plan (1) Diabetic foot infection: PLAN: Wound cx pending. R heel infection. MRI showed no osteo. On linezolid/hayes for now. Cont po vanc for proph given h/o recurrent cdiff. Cdiff (+) here but toxin neg. Will follow, thank you (2) Clostridium difficile infection: HPI Consult Data Date of Consult: 08/29/22 HPI Narrative Reason for Consultation: foot infection HPI Narrative: RED PRICE, is a 67 F with prior L TMA, presented with R heel wound for several weeks. Over past 2 days, new green/yellow drainage. No fever, no new pain. Had been on po doxy/bactrim and po vanc last week for it. Has h/o recurrent cdiff, 3-5 prior episodes. No diarrhea now. Admitted here, seen by podiatry, on linezolid/hayes/po vanc. Full ROS performed and neg except as noted above. [facility] Medical History Asthma Asthma Decubitus ulcer of left buttock, stage 3 Decubitus ulcer of right heel, stage 3 Deep venous thrombosis of distal end of left lower extremity Diabetic foot ulcer Diarrhea Gastroesophageal reflux disease History of cerebrovascular accident History of deep venous thrombosis (DVT) of distal vein of left lower extremity History of ischemic colitis History of myocardial infarction Ischemic colitis Migraine Osteoarthritis of cervical and lumbar spine Pressure ulcer of right heel, stage 3 Skin ulcer of finger with fat layer exposed Type 2 diabetes mellitus Type 2 diabetes mellitus with diabetic polyneuropathy Ulcer of amputation stump of foot Home Medications albuterol sulfate 90 mcg/actuation aerosol inhaler (Ventolin HFA) 1 puff inhalation Q4H PRN PRN SHORTNESS OF BREATH #0 grams 03/25/21 [Rx Last Taken Unknown] arginine 7 gram-glutam 7 gram-CaHMB 1.5 kryw-keame-kd-min oral pwd pkt (Alfredo (with collagen)) 1 packet PO BIDCM #0 ea 03/25/21 [Rx Last Taken 08/28/22] guaifenesin 600 mg tablet, extended release 12 hr (Mucus Relief ER) 1,200 mg PO BID #0 tabs 03/25/21 [Rx Last Taken 08/28/22] menthol 0.44 %-zinc oxide 20.6 % topical ointment (Calmoseptine) 1 applic topical BID #0 grams 03/25/21 [Rx Last Taken 08/30/21] nystatin 100,000 unit/gram topical powder (Nyamyc) 1 applic topical TID #0 grams 03/25/21 [Rx Last Taken 08/30/21] ondansetron 4 mg disintegrating tablet 4 mg PO Q6H PRN PRN NAUSEA #0 tabs 03/25/21 [Rx Last Taken Unknown] tramadol 50 mg tablet 50 mg PO Q6H PRN Pain 05/18/21 [History Last Taken Unknown] acidophilus 25 million cell-pectin, citrus 100 mg tablet 1 tab PO BID probiotic 08/31/21 [History Last Taken 08/28/22] cholecalciferol (vitamin D3) 50 mcg (2,000 unit) capsule 2,000 unit PO DAILY supplement 08/31/21 [History Last Taken 08/28/22] pantoprazole 40 mg tablet,delayed release 40 mg PO BIDCM #60 tabs 09/04/21 [Rx Last Taken 08/28/22] hydrocortisone 2.5 % topical cream with perineal applicator 1 applic AL QD-BID PRN Fissure #30 grams 09/07/21 [Rx Last Taken Unknown] Db 7 2 cap PO.IVFORM Q8 blood sugar 12/16/21 [History Last Taken 08/28/22] budesonide 3 mg capsule,delayed,extended release 9 mg PO DAILY #90 ea 03/08/22 [Rx Last Taken 08/28/22] folic acid 1 mg tablet 1 mg PO DAILY #30 tabs 03/08/22 [Rx Last Taken 08/28/22] diphenoxylate-atropine 2.5 mg-0.025 mg tablet (Lomotil) 1 tab PO BID PRN diarrhea #60 tabs 08/25/22 [Rx Last Taken 08/28/22] sulfasalazine 500 mg tablet 500 mg PO BID stomach 08/28/22 [History Last Taken 08/28/22] gabapentin 300 mg QHS neuropathy 08/29/22 [History Last Taken 08/27/22 21:00] gabapentin 100 mg capsule 100 mg DAILY neuropathy 08/29/22 [History Last Taken 08/28/22 09:00] Allergy/AdvReac Type Severity Reaction Status Date / Time cefprozil Allergy Shortness Verified 08/28/22 22:50 of breath ceftriaxone Allergy Hives Verified 08/28/22 22:50 clindamycin Allergy Rash Verified 08/28/22 22:50 enalapril Allergy Other Verified 08/28/22 22:50 enoxaparin Allergy Rash Verified 08/28/22 22:50 heparin Allergy Rash Verified 08/28/22 22:50 levalbuterol Allergy Other Verified 08/28/22 22:50 morphine Allergy Shortness Verified 08/28/22 22:50 of breath Penicillins Allergy Anaphylaxis Verified 08/28/22 22:50 shellfish derived Allergy Anaphylaxis Verified 08/28/22 22:50 valsartan Allergy Other Verified 08/28/22 22:50 vancomycin Allergy Rash Verified 08/28/22 22:50 Family History Mother Cancer Lung CA w/ tobacco use history. Diabetes COPD (chronic obstructive pulmonary disease) Father Cancer Lung CA w/ tobacco use history. Diabetes COPD (chronic obstructive pulmonary disease) Heart disease Surgical History History of appendectomy History of eye surgery History of foot surgery History of lumpectomy History of tubal ligation Status post transmetatarsal amputation of left foot Social History household members: none Smoking Status: Never smoker alcohol intake: never substance use type: does not use Physical Exam Const alert, oriented x3 and no apparent distress General Appearance: cooperative HEENT normocephalic and head/scalp atraumatic Eyes PERRL and EOMs intact bilaterally Neck supple and No nodes Resp normal air movement and clear to auscultation bilaterally Cardio regular rate and regular rhythm GI soft to palpation, non-tender and non-distended Extremity General Extremity: Negative for edema Skin Skin Narrative: reviewed photo R heel Lab / Micro Data Attestation: I reviewed the patient's lab results. Result Diagrams: 08/29/22 06:05 08/29/22 06:05 Labs: Laboratory Results - last 24 hr 08/29/22 00:00: WBC 10.1, RBC 3.57 L, Hgb 11.4 L, Hct 33.9 L, MCV 95.0, MCH 31.9, MCHC 33.6, RDW Std Deviation 46.1 H, RDW Coeff of Xin 13.2, Plt Count 253, MPV 10.5, Immature Gran % (Auto) 0.300, Neut % (Auto) 47.1, Lymph % (Auto) 38.0, [place] % (Auto) 6.8, Eos % (Auto) 6.4 H, Baso % (Auto) 1.4 H, Absolute Neuts (auto) 4.8, Absolute Lymphs (auto) 3.85, Nucleated RBC % 0 08/29/22 00:00: Sodium 138, Potassium 5.0, Chloride 109 H, Carbon Dioxide 25.0, Anion Gap 4 L, BUN 12, Creatinine 0.76, Estim Creat Clear Calc 47.79, Est GFR (MDRD) Af Amer 98, Est GFR (MDRD) Non-Af 81, BUN/Creatinine Ratio 15.8, Glucose 115 H, Calcium 8.7 08/29/22 00:00: Lactic Acid 1.1 08/29/22 00:00: ESR 73 H 08/29/22 00:00: C-React Prot Ext Range 9.86 H 08/29/22 06:05: WBC 10.3, RBC 3.06 L, Hgb 9.9 L, Hct 29.1 L, MCV 95.1, MCH 32.4 H, MCHC 34.0, RDW Std Deviation 45.1 H, RDW Coeff of Xin 13.1, Plt Count 218, MPV 10.7, Immature Gran % (Auto) 0.200, Neut % (Auto) 48.3, Lymph % (Auto) 37.4, [place] % (Auto) 7.2, Eos % (Auto) 5.5 H, Baso % (Auto) 1.4 H, Absolute Neuts (auto) 5.0, Absolute Lymphs (auto) 3.84, Nucleated RBC % 0 08/29/22 06:05: Sodium 140, Potassium 4.6, Chloride 113 H, Carbon Dioxide 22.0, Anion Gap 5, BUN 11, Creatinine 0.60, Estim Creat Clear Calc 47.79, Est GFR (MDRD) Af Amer 128, Est GFR (MDRD) Non-Af 106, BUN/Creatinine Ratio 18.3, Glucose 90, Calcium 8.3 L 08/29/22 06:18: POC Glucose 90 08/29/22 11:38: POC Glucose 137 H Micro: Microbiology 08/29/22 08:52 Stool C. difficile GDH Antigen & Toxins - Final 08/29/22 08:52 Stool C. difficile DNA Amplification - Final 08/29/22 00:55 Wound - Right Foot Gram Stain - Final Radiology Impression Foot X-Ray 08/28/22 23:23 IMPRESSION: Soft tissue swelling dorsal to the metatarsals with probable subcutaneous emphysema in this area due to soft tissue infection. No lytic osseous lesion identified to indicate osteomyelitis. Electronically Signed: Nathan Arredondo MD at 0:13 EDT , Lower Extremity MRI 08/29/22 02:39 IMPRESSION: 1. Small open/ulcerated skin defect is seen in the posterior plantar aspect of the calcaneus with associated edema and a tiny focus of air. No abscess is present. 2. No evidence of osteomyelitis/marrow edema or cortical erosion in the underlying bony structures. 3. Mild to moderate subcutaneous edema 4. A 2.99 cm benign ovoid encapsulated subcutaneous lipoma is present on the medial side of the anterior process and body of the calcaneus. 5. Mild tenosynovitis of the posterior tibialis tendon. Electronically Signed: Mirza Wagoner MD at 11:10 EDT ,
[2022-08-29] MEDS: Ondansetron 4 MG/2 ML Vial IV (14:39)
--- NOTE | 2022-08-29 15:28 | CASEMGMT ---
Notified Cammie at [facility] that pt wishes to resume services at [facility].
--- NOTE | 2022-08-29 16:30 | CHAPLAIN ---
Type of Pastoral Visit _x__ Initial Visit ___ Follow-up Visit ___ On-call Visit ___ General Patient Visit ___ Spiritual Assessment ___ Family Conference ___ Bereavement ___ Rapid Response ___ Code Blue ___ Other (describe below) Pastoral Care Referral From _x__ Patient ___ Family ___ Nurse ___ Physician ___ Repacker ___ Auto Garage Mechanic ___ Other (describe below) Sacrament/Intervention _x__ Active listening ___ Anointing ___ Orthodoxy ___ Bereavement ___ Communion _x__ Dang exploration ___ _x__ Life review _x__ Prayer ___ Reconciliation ___ Sacrament of Sick _x__ Supportive presence ___ Wedding ___ Other (describe below) Pastoral Comments patient known previously to this metropolitan editor, and also as a previous patient in this hospital and TCU; pt gives details of current situation, family relationships, and concern about finances and housing; pt has family in the area but most of them are not available or in a position to assist financially or with housing; pt relies on her dang in God and has a positive perspective due to her dang; presence and prayer are requested by this pt
[2022-08-29 16:51] LABS: Bedside Glucose 127 mg/dL (74-106)
[2022-08-29 23:00] LABS: Bedside Glucose 332 mg/dL (74-106)
[2022-08-29] MEDS: Gabapentin 300 MG Capsule PO (23:18)
[2022-08-29] MEDS: hydrALAZINE 20 MG/ML Vial 10 MG IV (23:44)
[2022-08-30 02:25] VITALS: BP 116/59; PULSE 75; RESP 17; TEMP 36.6; O2SAT 99
[2022-08-30] MEDS: Nystatin Powder 15gm Bottle 1 APPLIC TOPICAL ×3 (05:13→22:07)
[2022-08-30] MEDS: Acetaminophen 500 MG Tablet 1000 MG PO ×3 (05:16→22:09)
[2022-08-30 06:56] LABS: Bedside Glucose 168 mg/dL (74-106)
[2022-08-30] MEDS: sulfaSALAzine 500 MG Tablet PO ×2 (08:17→16:16)
[2022-08-30] MEDS: Juven (unflavored) Packet 1 PACKET PO ×2 (08:17→16:16)
[2022-08-30] MEDS: Glucerna Shake 120 ML LIQUID PO ×3 (08:17→16:15)
[2022-08-30] MEDS: Pantoprazole Sodium 40 MG Tablet PO ×2 (08:18→16:17)
[2022-08-30] MEDS: Folic Acid 1 MG Tablet PO (08:18)
[2022-08-30 08:20] VITALS: BP 152/83; PULSE 71; RESP 17; TEMP 36.6; O2SAT 95
[2022-08-30 09:00] VITALS: BP 152/83; PULSE 71; RESP 17; TEMP 36.6; O2SAT 95
--- NOTE | 2022-08-30 09:14 | CASEMGMT ---
Social Work SW notified by RN JOSE ALEJANDRO that pt in need of resources for housing, transportation and prescription assistance. SW gathered resources to provide to pt and presented them. SW offered education on how to use resources and pt expressed gratitude. Pt explained stressed and overwhelmed about only having 2 weeks until being homeless. Pt reports has looked at 15 different available housing options and none have worked out. Pt daughter living with pt to assist with pt's care but is disabled and works general partner. Finances appear to be part of housing insecurity, however pt reports also has emotional support pet and may landlords will not allow pets. Pt owns [address] sq foot home in [place] but is allowing son and son's six children to live there. Pt explained the home is not handicap accessible for her and of no use to her at this time all while discussing the possibility of sleeping in a van when she no longer has a home in 2 weeks. SW discussed living with son as temporary situation and pt not listening, stated would be to crowded. SW offered emotional support. LETY Hines
[2022-08-30] MEDS: Cholecalciferol (VIT D3) 25 MCG TABLET (1,000 UNITS) 50 MCG PO (09:24)
[2022-08-30] MEDS: Gabapentin 100 MG Capsule PO (09:24)
[2022-08-30] MEDS: guaiFENesin 1,200 MG Tablet 1200 MG PO ×2 (09:25→22:08)
[2022-08-30] MEDS: Menthol/Lanolin/Calamine/Znox 113 GM Tube 1 APPLIC TOPICAL ×2 (09:25→22:07)
[2022-08-30] MEDS: Linezolid 600 MG 600 MG/300 ML BAG 200 MG IV (09:26)
--- NOTE | 2022-08-30 09:57 | PN.ID_ITS ---
Physical Exam Narrative Feeling better, foot improving, no fever Const alert and no apparent distress Resp normal air movement and clear to auscultation bilaterally Cardio regular rate and regular rhythm GI soft to palpation, non-tender and non-distended Skin Skin Narrative: foot wrapped ID ID: Route of nutrition/ use of supplements: [] Nutritional Intake: [] IV Site: [] Nguyen Catheter: [] Assessment & Plan Assessment/Plan (1) Diabetic foot infection: PLAN: Wound cx pending. R heel infection. MRI showed no osteo. On linezolid/ hayes for now. Cont po vanc for proph given h/o recurrent cdiff. Cdiff (+) here but toxin neg. Plan on po abx at discharge. Will follow (2) Clostridium difficile infection:
--- NOTE | 2022-08-30 10:22 | PN.HOSP_ITS ---
Subjective Subjective Follow-up for diabetic foot and C. difficile infection. Patient also has C. difficile infection oral vancomycin. Objective Data Objective Data Vital Signs: Vital Signs Temp Pulse Resp BP Pulse Ox O2 Del Method 97.8 F 75 17 116/59 L 99 Room Air 08/30/22 02:25 08/30/22 02:25 08/30/22 02:25 08/30/22 02:25 08/30/22 02:25 08/30/22 08:00 Oxygen Delivery Method Room Air Weight: 161 lb 13.109 oz Body Mass Index (BMI) 27.8 Intake & Output: Intake and Output for Last 24 Hours 08/28/22 08/29/22 08/30/22 23:59 23:59 23:59 Intake Total 3107.5 / 3107.5 560 / 560 Output Total 700 / 700 Balance 2407.5 / 2407.5 560 / 560 Lab / Micro Data Result Diagrams: 08/29/22 06:05 08/29/22 06:05 Labs: Laboratory Results - last 24 hr 08/29/22 11:38: POC Glucose 137 H 08/29/22 16:28: POC Glucose 127 H 08/29/22 22:29: POC Glucose 332 H 08/30/22 06:35: POC Glucose 168 H Micro: Microbiology 08/29/22 00:55 Wound - Right Foot Gram Stain - Final 08/29/22 00:55 Wound - Right Foot Wound Culture - Preliminary GNR Poss Pseudomonas sp Gram positive organism 08/29/22 08:52 Stool C. difficile GDH Antigen & Toxins - Final 08/29/22 08:52 Stool C. difficile DNA Amplification - Final Radiography Diagnostic Testing: Radiology Impression Lower Extremity MRI 08/29/22 02:39 IMPRESSION: 1. Small open/ulcerated skin defect is seen in the posterior plantar aspect of the calcaneus with associated edema and a tiny focus of air. No abscess is present. 2. No evidence of osteomyelitis/marrow edema or cortical erosion in the underlying bony structures. 3. Mild to moderate subcutaneous edema 4. A 2.99 cm benign ovoid encapsulated subcutaneous lipoma is present on the medial side of the anterior process and body of the calcaneus. 5. Mild tenosynovitis of the posterior tibialis tendon. Extremity Arterial Study 08/29/22 07:29 Interpretation Summary Unable to calculate right PT and DP ankle-brachial index due to noncompressibility. Normal triphasic right PT and DP Doppler waveforms Normal right digital brachial index though possibly artificially augmented Unable to determine left PT ankle-brachial index due to noncompressibility Left DP index 1.41 again appears to be artificially elevated. Normal triphasic left PT and DP Doppler waveforms Bilateral lower extremity volume pulse recordings appear relatively normal Medial calcification of arteries suspected. Interpretation made upon waveforms suggesting mild disease bilaterally. Clinical correlation would be appropriate. Physical Exam Narrative Seen and examined. No fever or chills. Heart rate and blood pressure in acceptable range. Physical exam General: Alert, Oriented x3, Cooperative HEENT: Atraumatic, PERRLA, EOMI, Normocephalic Oral: No Gingival or Mucosal Lesions/ Ulcerations Neck: Supple, No JVD, Negative Carotid Bruits Lungs: Air entry diminished in bilateral lung bases. No crepitation/rhonchi Cardiovascular: Regular rate, Regular Rhythm, Normal S1, Normal S2, No murmurs Abdomen: Bowel Sounds Present, Soft, Non Tender, Non-Distended. No diarrhea. : No renal angle tenderness. No suprapubic tenderness. Extremities: No edema, Capillary Refill Less than 3 Seconds Skin: No rashes, No breakdown Musculoskeletal: No Tenderness to Palpation of Joints or Extremities. Chronic left metatarsal amputation. Right nonhealing foot wound. Covered with dressing Neurological: Cranial nerves II-XII grossly intact, DTR 2+/4, peripheral neuropathy. Muscle strength 4/5 at knee and ankle joints. Psych/Mental Status: Flat affect. Assessment & Plan Assessment/Plan (1) Diabetic foot infection: PLAN: Patient is not septic clinically and by labs biochemical analysis Management plan: ESR and CRP elevated. MRI right foot shows a small open ulcerated skin defect in posterior plantar aspect of calcaneum with associated edema and tiny focus of air. No abscess present. No evidence of osteomyelitis/marrow edema or cortical lesion of underlying bony structures. Mild tenosynovitis of posterior tibialis tendon. LES shows normal right digital brachial index. Normal triphasic right PT and DP with Doppler waveform but unable to calculate right and left LOIS due to noncompressibility. Left DPA 1.41, seems artificially augmented Agricultural Produce Packer is consulted. Currently on meropenem and linezolid. ID is consulted. Wound care consulted 08/30: Wound culture pending. On linezolid and meropenem. Continue p.o. vancomycin for history of recurrent C. difficile. C. difficile PCR positive but toxin negative. Plan for p.o. antibiotic at time of discharge. Clinical Impression(s) from Imaging Studies Foot X-Ray 08/28/22 23:23 IMPRESSION: Soft tissue swelling dorsal to the metatarsals with probable subcutaneous emphysema in this area due to soft tissue infection. No lytic osseous lesion identified to indicate osteomyelitis. Lower Extremity MRI 08/29/22 02:39 IMPRESSION: 1. Small open/ulcerated skin defect is seen in the posterior plantar aspect of the calcaneus with associated edema and a tiny focus of air. No abscess is present. 2. No evidence of osteomyelitis/marrow edema or cortical erosion in the underlying bony structures. 3. Mild to moderate subcutaneous edema 4. A 2.99 cm benign ovoid encapsulated subcutaneous lipoma is present on the medial side of the anterior process and body of the calcaneus. 5. Mild tenosynovitis of the posterior tibialis tendon. Extremity Arterial Study 08/29/22 07:29 Interpretation Summary Unable to calculate right PT and DP ankle-brachial index due to noncompressibility. Normal triphasic right PT and DP Doppler waveforms Normal right digital brachial index though possibly artificially augmented Unable to determine left PT ankle-brachial index due to noncompressibility Left DP index 1.41 again appears to be artificially elevated. Normal triphasic left PT and DP Doppler waveforms Bilateral lower extremity volume pulse recordings appear relatively normal Medial calcification of arteries suspected. Interpretation made upon waveforms suggesting mild disease bilaterally. Clinical correlation would be appropriate. (2) Clostridium difficile infection: PLAN: Not active but does have a history of this and is just recently discontinued oral vancomycin while she was on oral antibiotics about 8 days ago. on vancomycin 125 mg daily. Patient has allergy to vancomycin but that is the IV. Patient has recently taken oral vancomycin PLAN: Plan Chronic conditions * Diabetes mellitus type 2: A1c was 7 December 16. Accu-Chek SNS coverage below sliding scale. Patient Torx herbal medication for diabetes and claims that it brought her A1c 12% to 8%. She wants to take while in the hospital which I told her I do not have knowledge for herbal medication especially the leaf extract. * Asthma: Continue with albuterol * History of ischemic colitis: No acute issues. VTE prophylaxis: On SCDs as patient has allergy to enoxaparin and heparin. CODE STATUS: Discussed with patient. Patient wishes to be full code. Charges/Coding Visit Charges Inpatient E&M: 56138 Subs Hosp L2
[2022-08-30] MEDS: Budesonide 3 MG CAPSULE.EC 9 MG PO (11:18)
[2022-08-30] MEDS: Vancomycin 125 MG/5 ML Susp PO.SYRINGE PO (11:18)
[2022-08-30] MEDS: Diphenoxylate/Atrop 1 Tablet PO ×2 (11:31→23:43)
[2022-08-30] MEDS: Ondansetron 4 MG/2 ML Vial IV (11:31)
[2022-08-30 11:55] LABS: Bedside Glucose 206 mg/dL (74-106)
--- NOTE | 2022-08-30 13:00 | PN_ITS ---
Subjective Subjective Patient seen bedside at lunchtime eating. She denies any new episodes overnight. She states she feels well overall. 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 She denies any constitutional symptoms. She denies any further complaints. Objective Data Objective Data Vital Signs: Vital Signs Temp Pulse Resp BP Pulse Ox O2 Del Method 97.9 F 71 17 152/83 H 95 Room Air 08/30/22 09:00 08/30/22 09:00 08/30/22 09:00 08/30/22 09:00 08/30/22 09:00 08/30/22 09:00 Oxygen Delivery Method Room Air Weight: 73.4 kg Body Mass Index (BMI) 27.8 Intake & Output: Intake and Output for Last 24 Hours 08/28/22 08/29/22 08/30/22 23:59 23:59 23:59 Intake Total 3107.5 / 3107.5 860 / 860 Output Total 700 / 700 Balance 2407.5 / 2407.5 860 / 860 Lab / Micro Data Result Diagrams: 08/29/22 06:05 08/29/22 06:05 Labs: Laboratory Results - last 24 hr 08/29/22 16:28: POC Glucose 127 H 08/29/22 22:29: POC Glucose 332 H 08/30/22 06:35: POC Glucose 168 H 08/30/22 11:37: POC Glucose 206 H Micro: Microbiology 08/29/22 00:55 Wound - Right Foot Gram Stain - Final 08/29/22 00:55 Wound - Right Foot Wound Culture - Preliminary GNR Poss Pseudomonas sp Gram positive organism 08/29/22 08:52 Stool C. difficile GDH Antigen & Toxins - Final 08/29/22 08:52 Stool C. difficile DNA Amplification - Final Radiography Diagnostic Testing: Radiology Impression Extremity Arterial Study 08/29/22 07:29 Interpretation Summary Unable to calculate right PT and DP ankle-brachial index due to noncompressibility. Normal triphasic right PT and DP Doppler waveforms Normal right digital brachial index though possibly artificially augmented Unable to determine left PT ankle-brachial index due to noncompressibility Left DP index 1.41 again appears to be artificially elevated. Normal triphasic left PT and DP Doppler waveforms Bilateral lower extremity volume pulse recordings appear relatively normal Medial calcification of arteries suspected. Interpretation made upon waveforms suggesting mild disease bilaterally. Clinical correlation would be appropriate. Ordering Physician: Juan Amador Referring Physician: Cody Billings Performed By: EVELIN JOSEPH T Physical Exam Narrative Patient alert oriented to person place and time. Vascular: Dorsalis pedis posterior tibial pulses palpable 1 out of 4 to bilateral lower extremity. +1 pitting edema noted to dorsal right foot. Focal increase in warmth erythema edema to periwound area on the right heel. Neurologic: Light touch protective sensation absent to bilateral feet. Dermatologic: Full-thickness wound noted to the plantar right heel with a mixed fibrotic granular base with periwound erythema edema and warmth. No evidence of crepitus or fluctuance. Minimal drainage noted. Musculoskeletal: Left transmetatarsal amputation noted no other gross musculoskeletal deformity that he would be causing wound formation. No pain with calf squeeze or palpation of popliteal fossa that may be suggestive of DVT. Assessment & Plan Assessment/Plan (1) Type 2 diabetes mellitus with diabetic polyneuropathy: (2) Non-pressure chronic ulcer of other part of right foot with fat layer exposed: PLAN: Plan Patient seen and examined. LEAS from 08/29/2022 was reviewed. Arterial studies demonstrate normal triphasic DP and PT Doppler waveforms of the right and left foot. However due to noncompressible vessels interpretation of mild arterial disease bilateral was noted. PVR bilateral normal. Patient vitally stable, no leukocytosis, elevated ESR/CRP. Infection: Wound right lower extremity noted to be stable with resolving erythema about the wound margin. Minimal concern for deep infection at this time. Wound demonstrates scant serosanguineous drainage. No purulent drainage, no malodor, no soft tissue crepitus, no palpable fluctuance, no abscess, no lymphangitis noted. Wound cultures were obtained on 08/29/2022, currently awaiting results. WBC currently at 10.3. Patient currently on IV linezolid and meropenem with oral vancomycin given history of C. difficile. Radiographs: From 08/29/2022 were reviewed. No evidence of osteomyelitis. Small concern for air in the dorsal midfoot per radiology however upon further read this is secondary to soft tissue swelling in the septa and structures of the foot. MRI was also ordered and negative for osteomyelitis. There was a s mall area of air in the soft tissue secondary to open ulceration. Medicine currently following for medical management. This is greatly appreciated. Infectious disease has seen patient and has recommended continuing IV linezolid/meropenem with oral vancomycin given her history of C. difficile. Jennifer n is for oral antibiotics upon discharge. Wound today was examined and redressed with Betadine paint 4 x 4's Kerlix and a dry sterile dressing. Nursing to change dressings daily. At this time patient is stable with cellulitis resolving. I recommend continued local wound care with observation for cellulitis resolution. No plan for surgical intervention at this time. We will await wound cultures. Upon discharge she will return to the wound care center for left buttock wound and right heel wound. Podiatry will continue to follow. Please do not hesitate to call for any questions or concerns. Jr. Phil Hurd.P.M. [facility] [phone] Note: [employer] speech recognition directory assistance operator software was used to create portions of this document. Sound-alike and misspelled words, as well as other directory assistance operator errors may be contained in the documentation.
[2022-08-30 15:00] VITALS: BP 145/64; PULSE 75; RESP 15; TEMP 36.4; O2SAT 94
[2022-08-30 16:50] LABS: Bedside Glucose 135 mg/dL (74-106)
[2022-08-30 21:00] VITALS: BP 141/72; PULSE 76; RESP 16; TEMP 36.7; O2SAT 95
[2022-08-30] MEDS: Gabapentin 300 MG Capsule PO (22:08)
[2022-08-30] MEDS: Linezolid 600 MG Tablet PO (22:08)
[2022-08-30] MEDS: 0.9% Saline Lock 10 ML Syringe IV (22:09)
[2022-08-31] VITALS (14 sets, daily range): BP systolic 86–204; BP diastolic 47–96; PULSE 62–76; RESP 14–17; TEMP 35.7–36.7; O2SAT 95–100
[2022-08-31 00:11] LABS: Bedside Glucose 226 mg/dL (74-106)
[2022-08-31] MEDS: Acetaminophen 500 MG Tablet 1000 MG PO ×2 (06:48→13:41)
[2022-08-31] MEDS: Nystatin Powder 15gm Bottle 1 APPLIC TOPICAL ×2 (06:49→13:40)
[2022-08-31 07:31] LABS: Bedside Glucose 142 mg/dL (74-106)
[2022-08-31] MEDS: Folic Acid 1 MG Tablet PO (08:16)
[2022-08-31] MEDS: Pantoprazole Sodium 40 MG Tablet PO (08:16)
[2022-08-31] MEDS: sulfaSALAzine 500 MG Tablet PO (08:16)
[2022-08-31] MEDS: Juven (unflavored) Packet 1 PACKET PO (08:16)
--- NOTE | 2022-08-31 08:22 | DCINST_ITS ---
Discharge Instructions Diet Discharge Diet: 1800 Calorie Control Diet and 2000 mg Sodium Diet Activity Discharge Activity: Return to Normal Activity and May Not Drive Weight Bearing Status: Weight bearing as tolerated Dressing / Incision Call your doctor if you observe: Fever of 101 or Higher, Coldness, Increased Pain, Numbness or Tingling, Change in Color, Inability to urinate, Inability to have a bowel movement, Shortness of breath, Dizziness, Fainting spells, Swelling in the ankles, Chest pain, Prolonged hiccupping, Increased palpitations (irregular heartbeat), Calf discomfort and Uncontrolled pain Follow Up Care Test Results: Test results from this visit will be discussed in further detail at your follow- up appointment, if applicable. Discharge Plan Admission Admit Date/Time: 08/29/22 01:59 Primary Reason for Your Visit: Right diabetic foot infection Attending Provider: Toño Salas Primary Care Provider: Cody Billings Consulting Providers: Juan Amador ; Aneesh Kingsley ; Kentrell Iqbal Instructions Additional Instructions / Restrictions: Advised HCTZ 6.25 mg daily with holding if systolic blood pressure less than 130 mmHg as patient blood pressure fluctuates. Her blood pressure dropped from 200 -108 on 10 mg IV hydralazine 10 mg. Advised follow-up PCP in 1 week. Follow-up in wound center. Follow with residential sales executive Discharge Orders/Prescriptions Prescriptions: New hydrochlorothiazide 12.5 mg tablet 12.5 mg PO DAILY Qty: 30 1RF Rx Instructions: Hold for SBP less than 130 mmHg linezolid 600 mg Tablet 600 mg PO BID 7 Days Qty: 14 0RF ciprofloxacin HCl [Cipro] 500 mg tablet 500 mg PO BID Qty: 14 0RF Firvanq 25 mg/mL Recon Soln 125 mg PO DAILY 10 Days Qty: 50 0RF Continued budesonide 3 mg capsule,delayed,extend.release 9 mg PO DAILY Qty: 90 3RF folic acid 1 mg tablet 1 mg PO DAILY Qty: 30 2RF diphenoxylate-atropine [Lomotil] 2.5-0.025 mg tablet 1 tab PO BID PRN (Reason: diarrhea) Qty: 60 2RF nystatin [Nyamyc] 100,000 unit/gram Powder 1 applic topical TID Qty: 0 0RF Protocol: *Topical Application Instructions APPLICATION INSTRUCTIONS: Apply to affected areas albuterol sulfate [Ventolin HFA] 90 mcg/actuation Hfa Aerosol Inhaler 1 puff inhalation Q4H PRN PRN (Reason: SHORTNESS OF BREATH) Qty: 0 0RF ondansetron 4 mg Tablet,Disintegrating 4 mg PO Q6H PRN PRN (Reason: NAUSEA) Qty: 0 0RF menthol-zinc oxide [Calmoseptine] 0.44-20.6 % Ointment 1 applic topical BID Qty: 0 0RF Protocol: *Topical Application Instructions APPLICATION INSTRUCTIONS: Apply to bilateral buttocks guaifenesin [Mucus Relief ER] 600 mg Tablet Extended Release 12hr 1,200 mg PO BID Qty: 0 0RF Alfredo (with collagen) 7-7-1.5 gram Powder In Packet 1 packet PO BIDCM Qty: 0 0RF tramadol 50 mg Tablet 50 mg PO Q6H PRN (Reason: Pain) cholecalciferol (vitamin D3) 50 mcg (2,000 unit) Capsule 2,000 unit PO DAILY acidophilus-pectin, citrus 25 million cell -100 mg tablet 1 tab PO BID pantoprazole 40 mg tablet,delayed release (DR/EC) 40 mg PO BIDCM Qty: 60 0RF Db 7 2 cap PO.IVFORM Q8 Rx Instructions: diabetic mediaction sulfasalazine 500 mg tablet 500 mg PO BID gabapentin 100 mg capsule 100 mg DAILY Label Comments: TAKE 1 CAPSULE (100 MG TOTAL) BY MOUTH NIGHTLY FOR 30 DAYS. gabapentin 300 mg 300 mg QHS hydrocortisone 2.5 % cream with perineal applicator 1 applic [place] QD-BID PRN (Reason: Fissure) Qty: 30 3RF Referrals / Follow Up: Cody Billings MD [Primary Care Provider] - Within 1 Week Juan Amador DPM [Med Staff - Active Staff] - Within 2 Weeks Kentrell Iqbal MD [Med Staff - Active Staff] - Within 1 Month Disposition Disposition (needs filled in before D/C Order can be placed): Home Health Service
[2022-08-31] MEDS: Glucerna Shake 120 ML LIQUID PO ×2 (08:25→11:35)
[2022-08-31] MEDS: hydrALAZINE 20 MG/ML Vial 10 MG IV ×2 (08:33→08:48)
[2022-08-31] MEDS: Glycerin/Hypromellose/PEG400 15 ml Bottle 2 DRP EACH EYE ×2 (08:47→11:35)
--- NOTE | 2022-08-31 09:51 | CASEMGMT ---
Late entry for 08/30/2022 Discussed pt care with SW from [facility]. She reports pt has been provided resources for housing and prescription coverage. 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
[2022-08-31] MEDS: Budesonide 3 MG CAPSULE.EC 9 MG PO (10:08)
[2022-08-31] MEDS: guaiFENesin 1,200 MG Tablet 1200 MG PO (10:10)
[2022-08-31] MEDS: Linezolid 600 MG Tablet PO (10:11)
[2022-08-31] MEDS: Gabapentin 100 MG Capsule PO (10:11)
[2022-08-31] MEDS: Cholecalciferol (VIT D3) 25 MCG TABLET (1,000 UNITS) 50 MCG PO (10:11)
[2022-08-31] MEDS: Menthol/Lanolin/Calamine/Znox 113 GM Tube 1 APPLIC TOPICAL (10:15)
[2022-08-31] MEDS: Vancomycin 125 MG/5 ML Susp PO.SYRINGE PO (10:22)
--- NOTE | 2022-08-31 11:12 | CASEMGMT ---
Addendum entered by Alisha Altamirano 08/31/22 14:04: CINDI BLOUNT in to pt room, pt aware that therapy has been ordered and added to her HHC. She asks about hiring an aide for cleaning. Discussed private duty options with patient. Pt states she does not think she can afford this. Original Note: TC miya Bonds at [facility] to make aware that pt will dc today.
[2022-08-31 12:15] LABS: Bedside Glucose 149 mg/dL (74-106)
--- NOTE | 2022-08-31 13:41 | PCM.PN.ID ---
Physical Exam Narrative Feeling better, did have one episode of diarrhea this AM. No fever. Const alert and no apparent distress Resp normal air movement and clear to auscultation bilaterally Cardio regular rate and regular rhythm GI soft to palpation, non-tender and non-distended Skin Skin Narrative: foot wrapped ID ID: Route of nutrition/ use of supplements: [] Nutritional Intake: [] IV Site: [] Nguyen Catheter: [] Assessment & Plan Assessment/Plan (1) Diabetic foot infection: PLAN: Wound cx with PsA and staph aureus. R heel infection. MRI showed no osteo. On linezolid/hayes for now. Cont po vanc for proph given h/o recurrent cdiff. Cdiff (+) here but toxin neg. Ok for d/c home with 7 days linezolid/cipro and 10 days po vanc. Will follow (2) Clostridium difficile infection:
--- NOTE | 2022-08-31 13:56 | CHAPLAIN ---
Type of Pastoral Visit ___ Initial Visit _x__ Follow-up Visit ___ On-call Visit ___ General Patient Visit ___ Spiritual Assessment ___ Family Conference ___ Bereavement ___ Rapid Response ___ Code Blue ___ Other (describe below) Pastoral Care Referral From _x__ Patient ___ Family ___ Nurse ___ Physician ___ Alcohol Rubber ___ Wrapper Dipper ___ Other (describe below) Sacrament/Intervention _x__ Active listening ___ Anointing ___ Hinduism ___ Bereavement ___ Communion _x__ Dang exploration ___ ___ Life review _x__ Prayer ___ Reconciliation ___ Sacrament of Sick _x__ Supportive presence ___ Wedding ___ Other (describe below) Pastoral Comments patient admits to up and down feelings and current BP reflects that too; pt has worries about housing and BP; pt is person of dang and asks for input on spiritual insights and encouragement; prayer and presence welcomed
--- NOTE | 2022-08-31 16:09 | DS.PCM_ITS ---
Providers Date of Admission: 08/29/22 Primary Care Physician: Dr. Cody Billings MD Consultations 08/29/22 02:39 Consult: Infectious Disease Routine Consulting Provider: Kentrell Iqbal Reason for Consult: right heel ulcer. h/o C.diff EMERGENT Consult: No Notified: Yes Date Notified: 08/29/22 Time Notified: 08:50 Method of Notification: Text Consult: Onc/Wound/section cutter Routine Comment: Consult: Podiatry Routine Consulting Provider: Juan Amador Reason for Consult: right heel infection EMERGENT Consult: No Notified: Yes Date Notified: 08/29/22 Time Notified: 06:10 Method of Notification: Text Reason For Visit: RIGHT FOOT INFECTION Diagnosis Discharge Diagnosis (1) Diabetic foot infection: Status: Acute Code(s): E11.628 - Type 2 diabetes mellitus with other skin complications; L08.9 - Local infection of the skin and subcutaneous tissue, unspecified (2) Clostridium difficile infection: Status: Acute Code(s): A49.8 - Other bacterial infections of unspecified site Medications at Discharge Home Medications albuterol sulfate 90 mcg/actuation aerosol inhaler (Ventolin HFA) 1 puff inhalation Q4H PRN PRN SHORTNESS OF BREATH #0 grams 03/25/21 arginine 7 gram-glutam 7 gram-CaHMB 1.5 [id number]-dr-min oral pwd pkt (Alfredo (with collagen)) 1 packet PO BIDCM #0 ea 03/25/21 guaifenesin 600 mg tablet, extended release 12 hr (Mucus Relief ER) 1,200 mg PO BID #0 tabs 03/25/21 menthol 0.44 %-zinc oxide 20.6 % topical ointment (Calmoseptine) 1 applic t opical BID #0 grams 03/25/21 nystatin 100,000 unit/gram topical powder (Nyamyc) 1 applic topical TID #0 grams 03/25/21 ondansetron 4 mg disintegrating tablet 4 mg PO Q6H PRN PRN NAUSEA #0 tabs 03/25 tramadol 50 mg tablet 50 mg PO Q6H PRN Pain 05/18/21 acidophilus 25 million cell-pectin, citrus 100 mg tablet 1 tab PO BID probiotic 08/31/21 cholecalciferol (vitamin D3) 50 mcg (2,000 unit) capsule 2,000 unit PO DAILY supplement 08/31/21 pantoprazole 40 mg tablet,delayed release 40 mg PO BIDCM #60 tabs 09/04/21 hydrocortisone 2.5 % topical cream with perineal applicator 1 applic MA QD-BID PRN Fissure #30 grams 09/07/21 Db 7 2 cap PO.IVFORM Q8 blood sugar 12/16/21 budesonide 3 mg capsule,delayed,extended release 9 mg PO DAILY #90 ea 03/08/22 folic acid 1 mg tablet 1 mg PO DAILY #30 tabs 03/08/22 diphenoxylate-atropine 2.5 mg-0.025 mg tablet (Lomotil) 1 tab PO BID PRN diarrhea #60 tabs 08/25/22 sulfasalazine 500 mg tablet 500 mg PO BID stomach 08/28/22 gabapentin 300 mg QHS neuropathy 08/29/22 gabapentin 100 mg capsule 100 mg DAILY neuropathy 08/29/22 ciprofloxacin HCl 500 mg tablet (Cipro) 500 mg PO BID #14 tabs 08/31/22 hydrochlorothiazide 12.5 mg tablet 12.5 mg PO DAILY #30 tabs 08/31/22 linezolid 600 mg tablet 600 mg PO BID 7 days #14 tabs 08/31/22 vancomycin 25 mg/mL oral solution (Firvanq) 125 mg (5 mL) PO DAILY 10 days #50 mL 08/31/22 Hospital Course Summary of Care Provided Hospital Course: 67-year-old female was admitted for greenish drainage from her right heel. Patient follows in wound care center for several months. X-ray showed soft tissue swelling dorsal to metatarsal with possible subcutaneous emphysema which was ruled by later on by MRI. 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 1. Right foot diabetic chronic heel infection with mild surrounding cellulitis Patient is not septic clinically and by labs biochemical analysis Management plan: ESR and CRP elevated. MRI right foot shows a small open ulce rated skin defect in posterior plantar aspect of calcaneum with associated edema and tiny focus of air. No abscess present. No evidence of osteomyelitis/marrow edema or cortical lesion of underlying bony structures. Mild tenosynovitis of posterior tibialis tendon. LES shows normal right digital brachial index. Normal triphasic right PT and DP with Doppler waveform but unable to calculate right and left LOIS due to noncompressibility. Left DPA 1.41, seems artificially augmented Strength And Conditioning Coach is consulted. Currently on meropenem and linezolid. ID is consulted. Wound care consulted 08/30: Wound culture pending. On linezolid and meropenem. Plan for p.o. antibiotic at time of discharge. 08/31: Wound inspected. Wound culture shows Pseudomonas aeruginosa 3+ and the staff aureus rare. Healthy pink granulation over right heel with a small under the skin in the center and tiny amount of slough. Dressing changed. Surrounding cellulitis is resolved. Left heel has a pressure stage I but no breach of the skin. Discussed with the wound nurse. No plan for surgical debridement at OR from podiatry. Patient is okay for discharge. Discharged home p.o. antibiotic by ID. Patient is discharged on 1 week of linezolid and Cipro. 2. Chronic C. difficile infection: Does not look active as C. difficile toxin and antigen's are negative but PCR positive. ID is consulted. Continue p.o. v ancomycin for history of recurrent C. difficile. C. difficile PCR positive but toxin negative. Chronic conditions * Diabetes mellitus type 2: A1c was 7 December 16. Accu-Chek SNS coverage below sliding scale. Patient Torx herbal medication for diabetes and claims that it brought her A1c 12% to 8%. She wants to take while in the hospital which I told her I do not have knowledge for herbal medication especially the leaf extract. * Chronic labile hypertension with wide fluctuation: Patient BP was high, systolic 200 mmHg manually in the morning today on 08/31. Patient denies any blurry vision or loss of vision. Mild nonspecific headache. IV hydralazine given and it brought her blood pressure down to 155/71, further down to systolic 108 in the afternoon. She claims that she is mostly hypotensive. Prescription sent to pharmacy HCTZ 6.25 mg once daily to hold if systolic blood pressure less than 130 mmHg. Follow-up PCP in 1 week * Asthma: Continue with albuterol * History of ischemic colitis: No acute issues. VTE prophylaxis: On SCDs as patient has allergy to enoxaparin and heparin. CODE STATUS: Discussed with patient. Patient wishes to be full code. Clinical Impression(s) from Imaging Studies Foot X-Ray 08/28/22 23:23 IMPRESSION: Soft tissue swelling dorsal to the metatarsals with probable subcutaneous emphysema in this area due to soft tissue infection. No lytic osseous lesion identified to indicate osteomyelitis. Lower Extremity MRI 08/29/22 02:39 IMPRESSION: 1. Small open/ulcerated skin defect is seen in the posterior plantar aspect of the calcaneus with associated edema and a tiny focus of air. No abscess is present. 2. No evidence of osteomyelitis/marrow edema or cortical erosion in the underlying bony structures. 3. Mild to moderate subcutaneous edema 4. A 2.99 cm benign ovoid encapsulated subcutaneous lipoma is present on the medial side of the anterior process and body of the calcaneus. 5. Mild tenosynovitis of the posterior tibialis tendon. Extremity Arterial Study 08/29/22 07:29 Interpretation Summary Unable to calculate right PT and DP ankle-brachial index due to noncompressibility. Normal triphasic right PT and DP Doppler waveforms Normal right digital brachial index though possibly artificially augmented Unable to determine left PT ankle-brachial index due to noncompressibility Left DP index 1.41 again appears to be artificially elevated. Normal triphasic left PT and DP Doppler waveforms Bilateral lower extremity volume pulse recordings appear relatively normal Medial calcification of arteries suspected. Interpretation made upon waveforms suggesting mild disease bilaterally. Clinical correlation would be appropriate. Discharge medication reconciliation done. Discharge follow-up instructions completed. Discharge process discussed with the patient and all questions were answered to patient's satisfaction. Total time spent, exact 35 minutes on discharge meds reconciliation, examination, coordination of care with nurses and ancillary staff, review of imaging and blood test and discussion with the patient on follow-up instructions. Physical Exam Narrative Seen and examined. Patient BP was high, systolic 200 mmHg manually. Patient denies any blurry vision or loss of vision. Mild nonspecific headache. IV hydralazine given and it brought her blood pressure down to systolic 108. She claims that she is mostly hypotensive. In ED her blood pressure was systolic 207 when she came in. No fever or chills. Physical exam General: Alert, Oriented x3, Cooperative HEENT: Atraumatic, PERRLA, EOMI, Normocephalic Oral: No Gingival or Mucosal Lesions/ Ulcerations Neck: Supple, No JVD, Negative Carotid Bruits Lungs: Air entry diminished in bilateral lung bases. No crepitation/rhonchi Cardiovascular: Regular rate, Regular Rhythm, Normal S1, Normal S2, No murmurs Abdomen: Bowel Sounds Present, Soft, Non Tender, Non-Distended. No diarrhea. : No renal angle tenderness. No suprapubic tenderness. Extremities: No edema, Capillary Refill Less than 3 Seconds Skin: Wound is mostly clear, subcutaneous deep. Pinkish granulation tissue obvious. Small slough with skin on the center. Surrounding cellulitis has resolved. Small pressure ulcer stage I on the heel of amputated left foot. No breach of the skin on left foot. Musculoskeletal: No Tenderness to Palpation of Joints or Extremities. Chronic left metatarsal amputation. Right nonhealing foot wound. Covered with dressing Neurological: Cranial nerves II-XII grossly intact, DTR 2+/4, peripheral neuropathy. Muscle strength 4/5 at knee and ankle joints. Psych/Mental Status: Flat affect. Weight / BMI Weight Weight: 161 lb 13.109 oz Body Mass Index (BMI) 27.8 ABG / Lab / Microbiology Data Result Diagrams: 08/29/22 06:05 08/29/22 06:05 Laboratory: Laboratory Results - last 24 hr 08/30/22 11:37: POC Glucose 206 H 08/30/22 16:13: POC Glucose 135 H 08/30/22 23:37: POC Glucose 226 H 08/31/22 06:47: POC Glucose 142 H Microbiology: Microbiology 08/29/22 00:55 Wound - Right Foot Gram Stain - Final 08/29/22 00:55 Wound - Right Foot Wound Culture - Preliminary Pseudomonas aeroginosa Staphylococcus aureus 08/29/22 08:52 Stool C. difficile GDH Antigen & Toxins - Final 08/29/22 08:52 Stool C. difficile DNA Amplification - Final D/C Instructions Discharge Diet: 1800 Calorie Control Diet and 2000 mg Sodium Diet Weight Bearing Status: Weight bearing as tolerated Call your doctor if you observe: Fever of 101 or Higher, Coldness, Increased Pain, Numbness or Tingling, Change in Color, Inability to urinate, Inability to have a bowel movement, Shortness of breath, Dizziness, Fainting spells, Swelling in the ankles, Chest pain, Prolonged hiccupping, Increased palpitations (irregular heartbeat), Calf discomfort and Uncontrolled pain Meaningful Use Info Meaningful Use Diagnoses (Choose all that apply): None applicable Discharge Plan Admission Admit Date/Time: 08/29/22 01:59 Primary Reason for Your Visit: Right diabetic foot infection Attending Provider: Toño Salas Primary Care Provider: Cody Billings Consulting Providers: Juan Amador ; Aneesh Kingsley ; Kentrell Iqbal Instructions Additional Instructions / Restrictions: Advised HCTZ 6.25 mg daily with holding if systolic blood pressure less than 130 mmHg as patient blood pressure fluctuates. Her blood pressure dropped from 200 -108 on 10 mg IV hydralazine 10 mg. Advised follow-up PCP in 1 week. Follow-up in wound center. Follow with cardiovascular disease specialist Discharge Orders/Prescriptions Prescriptions: New hydrochlorothiazide 12.5 mg tablet 12.5 mg PO DAILY Qty: 30 1RF Rx Instructions: Hold for SBP less than 130 mmHg linezolid 600 mg Tablet 600 mg PO BID 7 Days Qty: 14 0RF ciprofloxacin HCl [Cipro] 500 mg tablet 500 mg PO BID Qty: 14 0RF Firvanq 25 mg/mL Recon Soln 125 mg PO DAILY 10 Days Qty: 50 0RF Continued budesonide 3 mg capsule,delayed,extend.release 9 mg PO DAILY Qty: 90 3RF folic acid 1 mg tablet 1 mg PO DAILY Qty: 30 2RF diphenoxylate-atropine [Lomotil] 2.5-0.025 mg tablet 1 tab PO BID PRN (Reason: diarrhea) Qty: 60 2RF nystatin [Nyamyc] 100,000 unit/gram Powder 1 applic topical TID Qty: 0 0RF Protocol: *Topical Application Instructions APPLICATION INSTRUCTIONS: Apply to affected areas albuterol sulfate [Ventolin HFA] 90 mcg/actuation Hfa Aerosol Inhaler 1 puff inhalation Q4H PRN PRN (Reason: SHORTNESS OF BREATH) Qty: 0 0RF ondansetron 4 mg Tablet,Disintegrating 4 mg PO Q6H PRN PRN (Reason: NAUSEA) Qty: 0 0RF menthol-zinc oxide [Calmoseptine] 0.44-20.6 % Ointment 1 applic topical BID Qty: 0 0RF Protocol: *Topical Application Instructions APPLICATION INSTRUCTIONS: Apply to bilateral buttocks guaifenesin [Mucus Relief ER] 600 mg Tablet Extended Release 12hr 1,200 mg PO BID Qty: 0 0RF Alfredo (with collagen) 7-7-1.5 gram Powder In Packet 1 packet PO BIDCM Qty: 0 0RF tramadol 50 mg Tablet 50 mg PO Q6H PRN (Reason: Pain) cholecalciferol (vitamin D3) 50 mcg (2,000 unit) Capsule 2,000 unit PO DAILY acidophilus-pectin, citrus 25 million cell -100 mg tablet 1 tab PO BID pantoprazole 40 mg tablet,delayed release (DR/EC) 40 mg PO BIDCM Qty: 60 0RF Db 7 2 cap PO.IVFORM Q8 Rx Instructions: diabetic mediaction sulfasalazine 500 mg tablet 500 mg PO BID gabapentin 100 mg capsule 100 mg DAILY Label Comments: TAKE 1 CAPSULE (100 MG TOTAL) BY MOUTH NIGHTLY FOR 30 DAYS. gabapentin 300 mg 300 mg QHS hydrocortisone 2.5 % cream with perineal applicator 1 applic MA QD-BID PRN (Reason: Fissure) Qty: 30 3RF Referrals / Follow Up: Juan Amador DPM [Med Staff - Active Staff] - Within 2 Weeks Cody Billings MD [Primary Care Provider] - Within 1 Week Kentrell Iqbal MD [Med Staff - Active Staff] - Within 1 Month Disposition Disposition (needs filled in before D/C Order can be placed): Home Health Service Charges/Coding Visit Charges Inpatient E&M: 63227 Disch Hosp
== END 2022-08-31 16:05 | disposition home health service (06) | DRG 638 ==
LOC: ED 08-29 01:44 → MS3 08-29 02:13
PROVIDERS: Emergency Provider Emergency Medicine; PCP Family Medicine; Visit Provider Internal Medicine
DX: E11.628 Type 2 diabetes mellitus with other skin complications (principal); L03.115 Cellulitis of right lower limb; A04.71 Enterocolitis due to Clostridium difficile, recurrent; L89.601 Pressure ulcer of unspecified heel, stage 1; E11.42 Type 2 diabetes mellitus with diabetic polyneuropathy; B96.5 Pseudomonas (aeruginosa) (mallei) (pseudomallei) as the cause of diseases classified elsewhere; E11.621 Type 2 diabetes mellitus with foot ulcer; E11.622 Type 2 diabetes mellitus with other skin ulcer; L97.512 Non-pressure chronic ulcer of other part of right foot with fat layer exposed; J45.909 Unspecified asthma, uncomplicated; R19.7 Diarrhea, unspecified; M65.89 Other synovitis and tenosynovitis, multiple sites; L89.891 Pressure ulcer of other site, stage 1; I10 Essential (primary) hypertension; R60.0 Localized edema; Z79.51 Long term (current) use of inhaled steroids
CPT/HCPCS: 36415; 73630; 73718; 80048; 82962; 83605; 85025; 85652; 86140; 87040; 87070; 87077; 87184; 87186; 87205; 87493; 93005; 93923; 97110; 97162; 97166; 97530; 97535; 99284; J2020; J2185; J7030; A4216; J2405

== ENCOUNTER 2022-09-13 10:46 | Outpatient (CLI) | payer MEDICARE, OTHER, SELFPAY | END 2022-09-13 23:59 | disposition home or self-care (01) | PROVIDERS: PCP Family Medicine; Referring Provider Internal Medicine Gastroenterology; Visit Provider Internal Medicine Gastroenterology | DX: R19.7 Diarrhea, unspecified (principal); L89.613 Pressure ulcer of right heel, stage 3; E11.621 Type 2 diabetes mellitus with foot ulcer; E11.51 Type 2 diabetes mellitus with diabetic peripheral angiopathy without gangrene; Z89.432 Acquired absence of left foot; Z89.422 Acquired absence of other left toe(s); E11.42 Type 2 diabetes mellitus with diabetic polyneuropathy; I73.9 Peripheral vascular disease, unspecified; G40.909 Epilepsy, unspecified, not intractable, without status epilepticus; Z79.4 Long term (current) use of insulin; K58.9 Irritable bowel syndrome, unspecified; Z86.718 Personal history of other venous thrombosis and embolism; J45.909 Unspecified asthma, uncomplicated; K21.9 Gastro-esophageal reflux disease without esophagitis; Z86.73 Personal history of transient ischemic attack (TIA), and cerebral infarction without residual deficits; I25.2 Old myocardial infarction; M47.812 Spondylosis without myelopathy or radiculopathy, cervical region; M47.816 Spondylosis without myelopathy or radiculopathy, lumbar region; Z79.899 Other long term (current) drug therapy; R53.81 Other malaise; I34.1 Nonrheumatic mitral (valve) prolapse; Z79.51 Long term (current) use of inhaled steroids | CPT/HCPCS: 11042; 87177; 87209; 87329; 87493; 87506 ==

== ENCOUNTER 2022-09-20 11:00 | Outpatient (RCR) | payer MEDICARE, OTHER, SELFPAY ==
[2022-08-30 00:05] VITALS: BP 126/68; PULSE 65; RESP 18; TEMP 35.6; BMI 24.0
[2022-09-06 10:28] VITALS: BP 176/84; PULSE 70; TEMP 36.4; BMI 24.0
--- NOTE | 2022-09-06 14:48 | PCM.WC.HP ---
History of Present Illness Date of Service: 09/06/22 Chief Complaint: Right posterior heel ulceration History of Wound: This is a 67-year-old female with multiple pre-existing medical problems, including diabetes mellitus. She presented with an ulceration on the right posterior heel, which had been present for approximately 3 months. She has been under the care of Dr. Lea at the [facility] in [place], [place], but has been referred for further evaluation and management at our wound healing facility. She has previously been treated at our facility for other wounds. With respect to her right heel ulceration, she has been using Aquacel Ag topically. Review of her medical history reveals an arterial duplex ultrasound which was performed on February 05, 2021, which revealed no evidence of arterial stenosis, and with triphasic arterial flow throughout the left lower extremity. She was diagnosed with deep vein thrombosis in the left lower extremity last year, and treated for several months with systemic anticoagulation therapy using Xarelto. The patient has undergone a left transmetatarsal amputation in March 2022. She has not returned to weightbearing as of now. Recent cultures of her right heel ulceration were obtained at the [facility], and the patient is currently taking doxycycline, Bactrim, and vancomycin orally. The patient typically sleeps on her back at night. 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 Pressure ulcer of right heel, stage 3 Skin ulcer of finger with fat layer exposed Type 2 diabetes mellitus Type 2 diabetes mellitus with diabetic polyneuropathy Type 2 diabetes mellitus with diabetic polyneuropathy Ulcer of amputation stump of foot Home Medications albuterol sulfate 90 mcg/actuation aerosol inhaler (Ventolin HFA) 1 puff inhalation Q4H PRN PRN SHORTNESS OF BREATH #0 grams 03/25/21 [Rx Last Taken Unknown] arginine 7 gram-glutam 7 gram-CaHMB 1.5 mtzp-rfpon-jp-min oral pwd pkt (Alfredo (with collagen)) 1 packet PO BIDCM #0 ea 03/25/21 [Rx Last Taken 08/28/22] guaifenesin 600 mg tablet, extended release 12 hr (Mucus Relief ER) 1,200 mg PO BID #0 tabs 03/25/21 [Rx Last Taken 08/28/22] menthol 0.44 %-zinc oxide 20.6 % topical ointment (Calmoseptine) 1 applic topical BID #0 grams 03/25/21 [Rx Last Taken 08/30/21] nystatin 100,000 unit/gram topical powder (Nyamyc) 1 applic topical TID #0 grams 03/25/21 [Rx Last Taken 08/30/21] ondansetron 4 mg disintegrating tablet 4 mg PO Q6H PRN PRN NAUSEA #0 tabs 03/25/21 [Rx Last Taken Unknown] tramadol 50 mg tablet 50 mg PO Q6H PRN Pain 05/18/21 [History Last Taken Unknown] acidophilus 25 million cell-pectin, citrus 100 mg tablet 1 tab PO BID probiotic 08/31/21 [History Last Taken 08/28/22] cholecalciferol (vitamin D3) 50 mcg (2,000 unit) capsule 2,000 unit PO DAILY supplement 08/31/21 [History Last Taken 08/28/22] pantoprazole 40 mg tablet,delayed release 40 mg PO BIDCM #60 tabs 09/04/21 [Rx Last Taken 08/28/22] hydrocortisone 2.5 % topical cream with perineal applicator 1 applic WA QD-BID PRN Fissure #30 grams 09/07/21 [Rx Last Taken Unknown] Db 7 2 cap PO.IVFORM Q8 blood sugar 12/16/21 [History Last Taken 08/28/22] budesonide 3 mg capsule,delayed,extended release 9 mg PO DAILY #90 ea 03/08/22 [Rx Last Taken 08/28/22] folic acid 1 mg tablet 1 mg PO DAILY #30 tabs 03/08/22 [Rx Last Taken 08/28/22] diphenoxylate-atropine 2.5 mg-0.025 mg tablet (Lomotil) 1 tab PO BID PRN diarrhea #60 tabs 08/25/22 [Rx Last Taken 08/28/22] sulfasalazine 500 mg tablet 500 mg PO BID stomach 08/28/22 [History Last Taken 08/28/22] gabapentin 300 mg QHS neuropathy 08/29/22 [History Last Taken 08/27/22 21:00] gabapentin 100 mg capsule 100 mg DAILY neuropathy 08/29/22 [History Last Taken 08/28/22 09:00] ciprofloxacin HCl 500 mg tablet (Cipro) 500 mg PO BID #14 tabs 08/31/22 [Rx Last Taken Unknown] hydrochlorothiazide 12.5 mg tablet 12.5 mg PO DAILY #30 tabs 08/31/22 [Rx Last Taken Unknown] linezolid 600 mg tablet 600 mg PO BID 7 days #14 tabs 08/31/22 [Rx Last Taken Unknown] vancomycin 25 mg/mL oral solution (Firvanq) 125 mg (5 mL) PO DAILY 10 days #50 mL 08/31/22 [Rx Last Taken Unknown] Allergy/AdvReac Type Severity Reaction Status Date / Time cefprozil Allergy Shortness Verified 08/28/22 22:50 of breath ceftriaxone Allergy Hives Verified 08/28/22 22:50 clindamycin Allergy Rash Verified 08/28/22 22:50 enalapril Allergy Other Verified 08/28/22 22:50 enoxaparin Allergy Rash Verified 08/28/22 22:50 heparin Allergy Rash Verified 08/28/22 22:50 levalbuterol Allergy Other Verified 08/28/22 22:50 morphine Allergy Shortness Verified 08/28/22 22:50 of breath Penicillins Allergy Anaphylaxis Verified 08/28/22 22:50 shellfish derived Allergy Anaphylaxis Verified 08/28/22 22:50 valsartan Allergy Other Verified 08/28/22 22:50 vancomycin Allergy Rash Verified 08/28/22 22:50 Family History Mother Cancer Lung CA w/ tobacco use history. Diabetes COPD (chronic obstructive pulmonary disease) Father Cancer Lung CA w/ tobacco use history. Diabetes COPD (chronic obstructive pulmonary disease) Heart disease Surgical History History of appendectomy History of eye surgery History of foot surgery History of lumpectomy History of tubal ligation Status post transmetatarsal amputation of left foot Social History household members: none Smoking Status: Never smoker alcohol intake: never substance use type: does not use Vital Signs Vital Signs Vital Signs: 09/06/22 10:28 Temperature 97.5 F L Temperature Source Temporal Pulse Rate 70 Blood Pressure 176/84 H Blood Pressure Mean 114 Blood Pressure Source Monitor Blood Pressure Position Semi-Fowlers Blood Pressure Location Right Arm Weight Weight: 140 lb Body Mass Index (BMI) 24.0 Physical Exam Const alert, oriented x3 and no apparent distress General Appearance: cooperative, comfortable and well developed Orientation / Consciousness: awake, oriented to person, oriented to place and oriented to time HEENT normocephalic, head/scalp atraumatic and hearing grossly normal bilaterally Head and Scalp: normal to inspection, normocephalic and atraumatic External Ear: external ears normal Eyes PERRL and EOMs intact bilaterally General Eye: normal appearance of both eyes Resp normal respiratory effort, normal air movement and no use of accessory muscles Effort and Inspection: able to speak in complete sentences and symmetric chest movement Extremity no calf tenderness General Extremity: Negative for clubbing or cyanosis Skin Skin Narrative: foot wrapped Wound Narrative: Ulceration persists on the patient's right heel. There is no sign of infection or cellulitis. Dimensions are documented elsewhere. There is a moderate amount of bioburden. Neuro oriented x3, CN's II-XII intact bilaterally, moves all extremities and no focal motor deficits Sensorium / Orientation: awake, alert, oriented to person, oriented to place and oriented to time Psych Appearance: grossly normal and appropriate Attitude: calm Activity / Motor Behavior: appropriate eye contact Speech: normal speech Mood & Affect: euthymic mood Thought Process: normal thought process Thought Content: normal thought content Attention / Concentration: attention grossly intact Debridement Note Debridement Note Wound debrided: Right posterior heel Laterality: Right Wound Grade/Stage: Category 3 pressure ulceration Type of Debridement: Excisional debridement Anesthesia Used: 5% Lidocaine Gel Depth: Down to and including healthy tissue and in the subcutaneous layer Percentage of wound debrided: 100 Instrument Used: 5mm curette Severity: Fat Layer Exposed Amount of bleeding with debridement: Mild Bleeding Controlled with: Compression and gauze Patient tolerated procedure: Patient tolerated procedure well Post-Debridement Measurements and Additional Note: Post-Debridement Measurements/Treatment WC - Nurse 1 - General Ulcer Assessment Start: 09/06/22 10:27 Freq: Status: Active Protocol: LEO.AMANDA Activity Type Activity Date Activity User E-sign Co-sign Detail Recorded Client Recorded Date Recorded By Document 09/06/22 10:28 REECE [id number] 09/06/22 10:30 REECE 09/06/22 10:28 - Today's Visit Information Type of service Follow-up Visit (Physician/SUPERVISOR [employer]CRE[employer] ) Arrival Mode Wheelchair Patient Identification Verified (Name & Yes ) Height and Weight Body Mass Index (BMI) 24.0 BMI Classification Normal Vital Signs Temperature (97.8 F-99.1 F) 97.5 F L Temperature Source Temporal Pulse Rate (60-100) 70 Pulse Location Monitor Blood Pressure (90/60-120/80) 176/84 H Blood Pressure Mean 114 Source Monitor Position Semi-Fowlers Blood Pressure Location Right Arm History Since Last Visit- (Skip if this is Patient's initial visit) Have you changed medications since your No last visit? Any new allergies or adverse reactions No Had a fall/change in ADL's that may No increase risk of falls Signs or symptoms of abuse and/or No neglect since last visit Have you been in the hospital since your No last visit? Has dressing in place as prescribed Yes Has compression in place as prescribed Yes Has offloadiing in place as prescribed N/A Experienced any changes in pain level or No management Left Footwear Regular Shoe Right Footwear Regular Shoe Pain Scale: 0-10 Numeric Is Patient Pain Free? Yes - Nurse 1 - General Ulcer Measurement Start: 09/06/22 10:27 Freq: Status: Active Protocol: Activity Type Activity Date Activity User E-sign Co-sign Detail Recorded Client Recorded Date Recorded By Document 09/06/22 10:28 REECE [id number] 09/06/22 10:30 REECE 09/06/22 10:28 Wound Center Nurse 1 #7 right heel -Current Size (cm) - Length 3 -Current Size (cm) - Width 4 -Current Size (cm) - Depth 0.1 -Total Square Cm 12 -Exudate Amt Medium -Exudate Type Serosanguineous -Wound Margin Distinct, Outline Attached -Granulation Amt Medium (34-66%) -Granulation Quality [place] -Necrosis Amt Medium (34-66%) -Necrotic Tissue Type Adherent Slough -Texture (Margy-wound Skin Appearance) Assessed, Scarring -Moisture (Margy-wound Skin Appearance) No Abnormality, Assessed -Color (Margy-wound Skin Appearance) No Abnormality, Assessed -Temperature (Margy-wound Skin No Abnormality Appearance) (Pt Warm) -Tenderness on Palpation (Margy-wound No Skin Appearance) -Ulcer Cleansing Rinsed/ Irrigated with Saline -Foul Odor after Cleansing No -Anesthetic Used 5% Lidocaine Gel WC - Nurse 2 - General Ulcer CM Notes Start: 09/06/22 10:27 Freq: Status: Active Protocol: Activity Type Activity Date Activity User E-sign Co-sign Detail Recorded Client Recorded Date Recorded By Document 09/06/22 11:46 PL [id number] 09/06/22 11:48 PL 09/06/22 11:46 Wound Center Nurse 2 #6- L BUTTOCK -Procedure Performed No -Wound/Ulcer Outcome Healed- Epithelialized #5 left lateral stump -Procedure Performed No -Wound/Ulcer Outcome Healed- Epithelialized 3. R heel -Procedure Performed No #7 right heel -Time 10:44 -Correct Patient Yes -Correct Side, Site, Position Yes -Correct Procedure Yes -Procedure Performed Yes -Type of Procedure Debridement -Clinical Debridement Subcutaneous -Tissue Removed Subcutaneous -Post Debridement (cm) - Length 3.0 -Post Debridement (cm) - Width 4.0 -Post Debridement (cm) - Depth 0.1 -Total Square (Post) (cm) 12.00 -Area of Debridement (cm) - Length 3.0 -Area of Debridement (cm) - Width 4.0 -Total Square (Area) (cm) 12.00 -Tunneling No -Undermining/Tunneling No -Circular Undermining No -Wound/Ulcer Outcome Not Healed -Ulcer Cleansing Rinsed/ Irrigated with Saline -Foul Odor after Cleansing No -Bioengineered Tissue No -Bleeding Controlled with Pressure -Treatment Response Procedure Tolerated Well -Debridement - Subq, 1st 20sq cm Yes Pain Scale: 0-10 Numeric Is Patient Pain Free? Yes LEO - Nurse 3 - General Ulcer D/C NN Start: 09/06/22 10:27 Freq: Status: Active Protocol: Activity Type Activity Date Activity User E-sign Co-sign Detail Recorded Client Recorded Date Recorded By Document 09/06/22 11:08 KR [id number] 09/06/22 11:09 KR 09/06/22 11:08 Wound Care Nurse 3 #7 right heel -Ulcer Cleansing Rinsed/ Irrigated with Saline -Other Dressing betadine -Primary Dressing Covered/Secured with Dry Gauze,Dry Gauze & Roll Gauze,Secured with Tape Pain Scale: 0-10 Numeric Is Patient Pain Free? Yes WC - Visit Discharge Discharge Condition Stable Ambulatory Status Wheelchair Transportation Private Auto Assessment/Plan Assessment/Plan (1) Pressure ulcer of right heel, stage 3: CODE(S): L89.613 - Pressure ulcer of right heel, stage 3 (2) Status post transmetatarsal amputation of left foot: CODE(S): Z89.432 - Acquired absence of left foot (3) Type 2 diabetes mellitus: CODE(S): E11.9 - Type 2 diabetes mellitus without complications QUALIFIERS: Diabetes mellitus tiltrotor crew chief insulin use: with tiltrotor crew chief use Diabetes mellitus complication status: with neurologic complications Diabetes mellitus complication detail: with polyneuropathy Qualified Code(s): E11.42 - Type 2 diabetes mellitus with diabetic polyneuropathy; Z79.4 - group home (current) use of insulin (4) PAD (peripheral artery disease): CODE(S): I73.9 - Peripheral vascular disease, unspecified (5) History of ischemic colitis: CODE(S): Z87.19 - Personal history of other diseases of the digestive system (6) History of deep venous thrombosis (DVT) of distal vein of left lower extremity: CODE(S): Z86.718 - Personal history of other venous thrombosis and embolism (7) Debility: CODE(S): R53.81 - Other malaise (8) Diabetes mellitus: CODE(S): E11.9 - Type 2 diabetes mellitus without complications (9) Epilepsy: CODE(S): G40.909 - Epilepsy, unspecified, not intractable, without status epilepticus (10) Mitral valve prolapse: CODE(S): I34.1 - Nonrheumatic mitral (valve) prolapse (11) Diabetic neuropathy: CODE(S): E11.40 - Type 2 diabetes mellitus with diabetic neuropathy, unspecified QUALIFIERS: Diabetes mellitus type: type 2 Diabetes mellitus complication detail: diabetic polyneuropathy Qualified Code(s): E11.42 - Type 2 diabetes mellitus with diabetic polyneuropathy (12) Asthma: CODE(S): J45.909 - Unspecified asthma, uncomplicated (13) History of cerebrovascular accident: CODE(S): Z86.73 - Personal history of transient ischemic attack (TIA), and cerebral infarction without residual deficits (14) History of myocardial infarction: CODE(S): I25.2 - Old myocardial infarction PLAN: Plan This is a 67-year-old diabetic female who presented with an ulceration on her right posterior heel. She had been previously treated in our facility in the past. She has recently undergone a transmetatarsal amputation of the left foot, which appears to be healed appropriately. The patient is a back sleeper, and has developed an ulceration on the right posterior heel. This appears to be pressure related. She was admitted as an inpatient to [facility] on August 28, 2022, and discharged on August 31. She was admitted with a right diabetic foot infection and cellulitis. Cultures were positive for Pseudomonas and Staph aureus. She was discharged on Firvanq, Cipro, and Linezolid. Dr. Iqbal, infectious disease specialist, is involved with the patient's care. In addition, Dr. Amador, podiatric specialist, is also involved in the patient's care. Offloading measures are to be continued, and have been discussed with the patient and her daughter at the bedside. She is to avoid allowing her right heel to rest against the bed surface, or any other surfaces for any length of time. Due to the persisting presence of some nonviable and necrotic tissue within the wound, we are to continue the current use of Betadine?moistened gauze, which was initiated while an inpatient. The patient has been encouraged to optimize her glycemic control. Nutritional optimization has also been recommended. The patient has once again been urged to avoid prolonged contact between her heels and the bed surface. The patient is to be referred for subsequent care to Dr. Amador, podiatric specialist, who will see the [facility]. Total time: 28 minutes
[2022-09-13 10:58] VITALS: BP 155/97; PULSE 71; RESP 18; TEMP 35.9; BMI 24.0
--- NOTE | 2022-09-13 11:26 | PN.PCM_ITS ---
History of Present Illness Date of Service: 09/13/22 Chief Complaint: Right posterior heel ulceration History of Wound: 67-year-old female recently discharged from the hospital presents today receiving linezolid orally for a right heel wound. Patient has new onset blister to left foot uncertain how. She states that she does not bear weight to the site at all. States that she does not remember hitting the area. She states that she sleeps on her back with offloading boots at all times and does not sleep on her left side. She denies constitutional's at this time denies any pain is no other complaints. Objective Data Objective Data Vital Signs: Vital Signs Temp Pulse Resp BP 96.7 F L 71 18 155/97 H 09/13/22 10:58 09/13/22 10:58 09/13/22 10:58 09/13/22 10:58 Weight: 63.503 kg Body Mass Index (BMI) 24.0 Physical Exam Narrative Patient alert oriented person place time. Neurovascular status unchanged from previous evaluation in the hospital. Full-thickness wound noted to the plantar heel on the right lower extremity. Resolved erythema edema. Minimal drainage to site. Granular base with small amounts of fibrotic tissue noted. Pre and post debridement measurements document nursing notes. No deep probing undermining or overt signs of acute infection. 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 This was a simple septic Rafael drained and the skin was left intact. TMA noted to the left lower extremity. No signs of DVT. Debridement Note Debridement Note Post-Debridement Measurements and Additional Note: Post-Debridement Measurements/Treatment - Nurse 1 - General Ulcer Assessment Start: 09/06/22 10:27 Freq: Status: Active Protocol: [place] Activity Type Activity Date Activity User E-sign Co-sign Detail Recorded Client Recorded Date Recorded By Document 09/06/22 10:28 AK [id number] 09/06/22 10:30 AK Document 09/13/22 10:58 DL [id number] 09/13/22 11:04 DL 09/06/22 09/13/22 10:28 10:58 - Today's Visit Information Type of service Follow-up Visit Follow-up Visit (Physician/HEAD PASTRY CHEF (Physician/HEAD PASTRY CHEF ) ) Arrival Mode Wheelchair Wheelchair Transfer Assistance Manual Transfer Assist (Other) x1 Patient Identification Verified (Name & Yes Yes ) Patient Requires Transmission-Based No Precautions Height and Weight Body Mass Index (BMI) 24.0 24.0 BMI Classification Normal Normal Vital Signs Temperature (97.8 F-99.1 F) 97.5 F L 96.7 F L Temperature Source Temporal Temporal Pulse Rate (60-100) 70 71 Pulse Location Monitor Monitor Respiratory Rate (12-18) 18 Respiratory rate source Observation Blood Pressure (90/60-120/80) 176/84 H 155/97 H Blood Pressure Mean (mm Hg) 114 116 Source Monitor Monitor Position Semi-Fowlers Blood Pressure Location Right Arm History Since Last Visit- (Skip if this is Patient's initial visit) Have you changed medications since your No No last visit? Any new allergies or adverse reactions No No Had a fall/change in ADL's that may No No increase risk of falls Signs or symptoms of abuse and/or No No neglect since last visit Have you been in the hospital since your No No last visit? Has dressing in place as prescribed Yes Yes Has compression in place as prescribed Yes No Has offloadiing in place as prescribed N/A Yes Experienced any changes in pain level or No No management Left Footwear Regular Shoe Right Footwear Regular Shoe Slipper Pain Scale: 0-10 Numeric Is Patient Pain Free? Yes Yes WC - Nurse 1 - General Ulcer Measurement Start: 09/06/22 10:27 Freq: Status: Active Protocol: Activity Type Activity Date Activity User E-sign Co-sign Detail Recorded Client Recorded Date Recorded By Document 09/06/22 10:28 AK [id number] 09/06/22 10:30 AK Document 09/13/22 10:58 DL [id number] 09/13/22 11:04 DL 09/06/22 09/13/22 10:28 10:58 Wound Center Nurse 1 #7 right heel -Current Size (cm) - Length 3 2.9 -Current Size (cm) - Width 4 2.9 -Current Size (cm) - Depth 0.1 0.1 -Total Square Cm 12 8.41 -Photo Taken No -Exudate Amt Medium Medium -Exudate Type Serosanguineous Serosanguineous -Wound Margin Distinct, Distinct, Outline Outline Attached Attached -Granulation Amt Medium (34-66%) Small (1-33%) -Granulation Quality [place] -Necrosis Amt Medium (34-66%) Large (67-100%) -Necrotic Tissue Type Adherent Slough Adherent Slough -Structure Exposed N/A -Texture (Margy-wound Skin Appearance) Assessed, Localized Edema Scarring ,Scarring -Moisture (Margy-wound Skin Appearance) No Abnormality, Maceration Assessed -Color (Margy-wound Skin Appearance) No Abnormality, No Abnormality Assessed -Temperature (Margy-wound Skin No Abnormality No Abnormality Appearance) (Pt Warm) (Pt Warm) -Tenderness on Palpation (Margy-wound No No Skin Appearance) -Ulcer Cleansing Rinsed/ Soap and Water Irrigated with Saline -Foul Odor after Cleansing No No -Anesthetic Used 5% Lidocaine 4% Lidocaine Gel Solution WC - Nurse 2 - General Ulcer CM Notes Start: 09/06/22 10:27 Freq: Status: Active Protocol: Activity Type Activity Date Activity User E-sign Co-sign Detail Recorded Client Recorded Date Recorded By Document 09/06/22 11:46 PL [id number] 09/06/22 11:48 PL Document 09/13/22 11:20 [id number] 09/13/22 11:26 09/06/22 09/13/22 11:46 11:20 Wound Center Nurse 2 #6- L BUTTOCK -Procedure Performed No -Wound/Ulcer Outcome Healed- Epithelialized #5 left lateral stump -Procedure Performed No -Wound/Ulcer Outcome Healed- Epithelialized 3. R heel -Procedure Performed No #7 right heel -Time 10:44 11:21 -Correct Patient Yes Yes -Correct Side, Site, Position Yes Yes -Correct Procedure Yes Yes -Procedure Performed Yes Yes -Type of Procedure Debridement Debridement -Clinical Debridement Subcutaneous Subcutaneous -Tissue Removed Subcutaneous Subcutaneous -Post Debridement (cm) - Length 3.0 3.0 -Post Debridement (cm) - Width 4.0 3.0 -Post Debridement (cm) - Depth 0.1 0.2 -Total Square (Post) (cm) 12.00 9.00 -Area of Debridement (cm) - Length 3.0 3.0 -Area of Debridement (cm) - Width 4.0 3.0 -Total Square (Area) (cm) 12.00 9.00 -Tunneling No No -Undermining/Tunneling No No -Circular Undermining No No -Wound/Ulcer Outcome Not Healed Not Healed -Ulcer Cleansing Rinsed/ Rinsed/ Irrigated with Irrigated with Saline Saline -Foul Odor after Cleansing No No -Bioengineered Tissue No No -Bleeding Controlled with Pressure Pressure -Treatment Response Procedure Procedure Tolerated Well Tolerated Well -Offloading Yes -Type of Offloading Surgical Shoe -Debridement - Subq, 1st 20sq cm Yes Yes Pain Scale: 0-10 Numeric Is Patient Pain Free? Yes Yes WC - Nurse 3 - General Ulcer D/C NN Start: 09/06/22 10:27 Freq: Status: Active Protocol: Activity Type Activity Date Activity User E-sign Co-sign Detail Recorded Client Recorded Date Recorded By Document 09/06/22 11:08 GREG [id number] 09/06/22 11:09 GREG 09/06/22 11:08 Wound Care Nurse 3 #7 right heel -Ulcer Cleansing Rinsed/ Irrigated with Saline -Other Dressing betadine -Primary Dressing Covered/Secured with Dry Gauze,Dry Gauze & Roll Gauze,Secured with Tape Pain Scale: 0-10 Numeric Is Patient Pain Free? Yes WC - Visit Discharge Discharge Condition Stable Ambulatory Status Wheelchair Transportation Private Auto Assessment/Plan Assessment/Plan (1) Non-pressure chronic ulcer of other part of right foot with fat layer exposed: CODE(S): L97.512 - Non-pressure chronic ulcer of other part of right foot with fat layer exposed PLAN: Exam performed. Arterial studies reviewed. We will hold off vascular consult at this time. Plantar right heel wound was excisionally debrided down to including level of subcutaneous tissue of all nonviable tissue using a 5 mm dermal curette. Patient tolerated procedure well. Hemostasis obtained with light compression. Pre and postdebridement measurements document nursing notes. No anesthesia due to neuropathy. Aseptically the bolus was lysed to the left foot and inflammatory fluid was drained. Patient will continue home health care dressing changes every other day consisting of silver alginate to right heel and Betadine paint to left forefoot. Patient will continue nonweightbearing and take a baby aspirin every day for DVT prophylaxis she will follow-up in 1 week. (2) Peripheral vascular disease, unspecified: CODE(S): I73.9 - Peripheral vascular disease, unspecified
[2022-09-20 10:58] VITALS: BP 153/75; PULSE 76; RESP 20; TEMP 36.4; BMI 24.0
--- NOTE | 2022-09-20 11:49 | PCM.WC.PN ---
History of Present Illness Date of Service: 09/20/22 Chief Complaint: Right posterior heel ulceration History of Wound: 67-year-old female recently discharged from the hospital presents today receiving linezolid orally for a right heel wound. Patient has new onset blister to left foot uncertain how. She states that she does not bear weight to the site at all. States that she does not remember hitting the area. She states that she sleeps on her back with offloading boots at all times and does not sleep on her left side. She denies constitutional's at this time denies any pain is no other complaints. Objective Data Objective Data Vital Signs: Vital Signs Temp Pulse Resp BP 97.6 F L 76 20 H 153/75 H 09/20/22 10:58 09/20/22 10:58 09/20/22 10:58 09/20/22 10:58 Weight: 63.503 kg Body Mass Index (BMI) 24.0 Physical Exam Narrative Patient alert oriented person place time. Neurovascular status unchanged from previous evaluation in the hospital. Full-thickness wound noted to the plantar heel on the right lower extremity. Resolved erythema edema. Minimal drainage to site. Granular base with small amounts of fibrotic tissue noted. Pre and post debridement measurements document nursing notes. No deep probing undermining or overt signs of acute infection. 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 This was a simple septic Rafael drained and the skin was left intact. TMA noted to the left lower extremity. No signs of DVT. Debridement Note Debridement Note Post-Debridement Measurements and Additional Note: Post-Debridement Measurements/Treatment - Nurse 1 - General Ulcer Assessment Start: 09/06/22 10:27 Freq: Status: Active Protocol: [place] Activity Type Activity Date Activity User E-sign Co-sign Detail Recorded Client Recorded Date Recorded By Document 09/06/22 10:28 AK [id number] 09/06/22 10:30 AK Document 09/13/22 10:58 DL [id number] 09/13/22 11:04 DL Document 09/20/22 10:58 DL [id number] 09/20/22 11:11 DL 09/06/22 09/13/22 09/20/22 10:28 10:58 10:58 - Today's Visit Information Type of service Follow-up Visit Follow-up Visit Follow-up Visit (Physician/SURFACE ROOM SHOP OPTICIAN (Physician/SURFACE ROOM SHOP OPTICIAN (Physician/SURFACE ROOM SHOP OPTICIAN ) ) ) Arrival Mode Wheelchair Wheelchair Wheelchair Transfer Assistance Manual Manual Transfer Assist (Other) x1 x1 Patient Identification Verified (Name & Yes Yes Yes ) Patient Requires Transmission-Based No No Precautions Finger Stick Blood Sugar(mg/dl) (if 83 indicated): Blood Sugar Stated by Patient Height and Weight Body Mass Index (BMI) 24.0 24.0 24.0 BMI Classification Normal Normal Normal Vital Signs Temperature (97.8 F-99.1 F) 97.5 F L 96.7 F L 97.6 F L Temperature Source Temporal Temporal Temporal Pulse Rate (60-100) 70 71 76 Pulse Location Monitor Monitor Monitor Respiratory Rate (12-18) 18 20 H Respiratory rate source Observation Observation Blood Pressure (90/60-120/80) 176/84 H 155/97 H 153/75 H Blood Pressure Mean (mm Hg) 114 116 101 Source Monitor Monitor Monitor Position Semi-Fowlers Blood Pressure Location Right Arm History Since Last Visit- (Skip if this is Patient's initial visit) Have you changed medications since your No No No last visit? Any new allergies or adverse reactions No No No Had a fall/change in ADL's that may No No No increase risk of falls Signs or symptoms of abuse and/or No No No neglect since last visit Have you been in the hospital since your No No No last visit? Has dressing in place as prescribed Yes Yes Yes Has compression in place as prescribed Yes No Yes Has offloadiing in place as prescribed N/A Yes Yes Experienced any changes in pain level or No No No management Left Footwear Regular Shoe Slipper Right Footwear Regular Shoe Slipper Surgical Shoe with pressure relief insole Pain Scale: 0-10 Numeric Is Patient Pain Free? Yes Yes Yes WC - Nurse 1 - General Ulcer Measurement Start: 09/06/22 10:27 Freq: Status: Active Protocol: Activity Type Activity Date Activity User E-sign Co-sign Detail Recorded Client Recorded Date Recorded By Document 09/06/22 10:28 AK [id number] 09/06/22 10:30 AK Document 09/13/22 10:58 DL [id number] 09/13/22 11:04 DL Document 09/20/22 10:58 DL [id number] 09/20/22 11:11 DL 09/06/22 09/13/22 09/20/22 10:28 10:58 10:58 Wound Center Nurse 1 #7 right heel -Combined with (Name of Wound-Exactly 2.3 as it is documented) -Current Size (cm) - Length 3 2.9 2.8 -Current Size (cm) - Width 4 2.9 0.1 -Current Size (cm) - Depth 0.1 0.1 -Total Square Cm 12 8.41 0.28 -Photo Taken No Yes -Exudate Amt Medium Medium Small -Exudate Type Serosanguineous Serosanguineous Serosanguineous -Wound Margin Distinct, Distinct, Distinct, Outline Outline Outline Attached Attached Attached -Granulation Amt Medium (34-66%) Small (1-33%) Medium (34-66%) -Granulation Quality [place] -Necrosis Amt Medium (34-66%) Large (67-100%) Small (1-33%) -Necrotic Tissue Type Adherent Slough Adherent Slough Adherent Slough -Structure Exposed N/A N/A -Texture (Margy-wound Skin Appearance) Assessed, Localized Edema Scarring Scarring ,Scarring -Moisture (Margy-wound Skin Appearance) No Abnormality, Maceration Dry/Scaly Assessed -Color (Margy-wound Skin Appearance) No Abnormality, No Abnormality No Abnormality Assessed -Temperature (Margy-wound Skin No Abnormality No Abnormality No Abnormality Appearance) (Pt Warm) (Pt Warm) (Pt Warm) -Tenderness on Palpation (Margy-wound No No No Skin Appearance) -Ulcer Cleansing Rinsed/ Soap and Water Soap and Water Irrigated with Saline -Foul Odor after Cleansing No No No -Anesthetic Used 5% Lidocaine 4% Lidocaine 5% Lidocaine Gel Solution Gel Right Calf (cm) 31 Right Ankle (cm) 19.5 Left Calf (cm) 30 Left Ankle (cm) 19.5 WC - Nurse 2 - General Ulcer CM Notes Start: 09/06/22 10:27 Freq: Status: Active Protocol: Activity Type Activity Date Activity User E-sign Co-sign Detail Recorded Client Recorded Date Recorded By Document 09/06/22 11:46 PL [id number] 09/06/22 11:48 PL Document 09/13/22 11:20 [id number] 09/13/22 11:26 Document 09/20/22 11:33 [id number] 09/20/22 11:37 09/06/22 09/13/22 09/20/22 11:46 11:20 11:33 Wound Center Nurse 2 #6- L BUTTOCK -Procedure Performed No -Wound/Ulcer Outcome Healed- Epithelialized #5 left lateral stump -Procedure Performed No -Wound/Ulcer Outcome Healed- Epithelialized 3. R heel -Procedure Performed No #7 right heel -Time 10:44 11:21 11:34 -Correct Patient Yes Yes Yes -Correct Side, Site, Position Yes Yes Yes -Correct Procedure Yes Yes Yes -Procedure Performed Yes Yes Yes -Type of Procedure Debridement Debridement Debridement -Clinical Debridement Subcutaneous Subcutaneous Subcutaneous -Tissue Removed Subcutaneous Subcutaneous Subcutaneous -Post Debridement (cm) - Length 3.0 3.0 2.4 -Post Debridement (cm) - Width 4.0 3.0 2.8 -Post Debridement (cm) - Depth 0.1 0.2 0.2 -Total Square (Post) (cm) 12.00 9.00 6.72 -Area of Debridement (cm) - Length 3.0 3.0 2.4 -Area of Debridement (cm) - Width 4.0 3.0 2.8 -Total Square (Area) (cm) 12.00 9.00 6.72 -Tunneling No No No -Undermining/Tunneling No No No -Circular Undermining No No No -Wound/Ulcer Outcome Not Healed Not Healed Not Healed -Ulcer Cleansing Rinsed/ Rinsed/ Rinsed/ Irrigated with Irrigated with Irrigated with Saline Saline Saline -Foul Odor after Cleansing No No No -Bioengineered Tissue No No No -Bleeding Controlled with Pressure Pressure Pressure -Treatment Response Procedure Procedure Procedure Tolerated Well Tolerated Well Tolerated Well -Offloading Yes Yes -Type of Offloading Surgical Shoe Surgical Shoe -Debridement - Subq, 1st 20sq cm Yes Yes Yes Pain Scale: 0-10 Numeric Is Patient Pain Free? Yes Yes Yes WC - Nurse 3 - General Ulcer D/C NN Start: 09/06/22 10:27 Freq: Status: Active Protocol: Activity Type Activity Date Activity User E-sign Co-sign Detail Recorded Client Recorded Date Recorded By Document 09/06/22 11:08 [id number] 09/06/22 11:09 KR Document 09/13/22 11:43 DL [id number] 09/13/22 11:46 DL 09/06/22 09/13/22 11:08 11:43 Wound Care Nurse 3 #7 right heel -Ulcer Cleansing Rinsed/ Rinsed/ Irrigated with Irrigated with Saline Saline -Foul Odor after Cleansing No -Primary Dressing Applied Aquacel AG 4x4 -Other Dressing betadine -Primary Dressing Covered/Secured with Dry Gauze,Dry Dry Gauze & Gauze & Roll Roll Gauze, Gauze,Secured Secured with with Tape Tape -Aquacel AG 4x4 1 Left -Tubular Bandage Single Layer -Size of Tubigrip Used Size D -Size D ($) 1 Treatment Response Procedure Tolerated Well Pain Scale: 0-10 Numeric Is Patient Pain Free? Yes Yes WC - Visit Discharge Discharge Condition Stable Stable Ambulatory Status Wheelchair Ambulatory, Wheelchair Transportation Private Auto Private Auto Notes: betadine to blister, L foot Assessment/Plan Assessment/Plan (1) Non-pressure chronic ulcer of other part of right foot with fat layer exposed: CODE(S): L97.512 - Non-pressure chronic ulcer of other part of right foot with fat layer exposed PLAN: Exam performed. Arterial studies reviewed. We will hold off vascular consult at this time. Plantar right heel wound was excisionally debrided down to including level of subcutaneous tissue of all nonviable tissue using a 5 mm dermal curette. Patient tolerated procedure well. Hemostasis obtained with light compression. Pre and postdebridement measurements document nursing notes. No anesthesia due to neuropathy. Aseptically the bolus was lysed to the left foot and inflammatory fluid was drained. Patient will continue home health care dressing changes every other day consisting of silver alginate to right heel and Betadine paint to left forefoot. Patient will continue nonweightbearing and take a baby aspirin every day for DVT prophylaxis she will follow-up in 1 week. (2) Peripheral vascular disease, unspecified: CODE(S): I73.9 - Peripheral vascular disease, unspecified
== END 2022-09-28 23:59 | disposition home or self-care (01) ==
LOC: WC 11:00
PROVIDERS: PCP Family Medicine; Referring Provider Internal Medicine; Visit Provider Podiatrist
DX: E11.621 Type 2 diabetes mellitus with foot ulcer (principal); L89.613 Pressure ulcer of right heel, stage 3; E11.51 Type 2 diabetes mellitus with diabetic peripheral angiopathy without gangrene; Z89.422 Acquired absence of other left toe(s); L97.512 Non-pressure chronic ulcer of other part of right foot with fat layer exposed; E11.42 Type 2 diabetes mellitus with diabetic polyneuropathy; G40.909 Epilepsy, unspecified, not intractable, without status epilepticus; Z79.4 Long term (current) use of insulin; Z79.51 Long term (current) use of inhaled steroids; J45.909 Unspecified asthma, uncomplicated; Z86.718 Personal history of other venous thrombosis and embolism; K21.9 Gastro-esophageal reflux disease without esophagitis
CPT/HCPCS: 11042

== ENCOUNTER 2022-10-25 09:15 | Outpatient (RCR) | payer MEDICARE, OTHER, SELFPAY ==
[2022-09-29 00:09] VITALS: BP 153/75; PULSE 76; RESP 20; TEMP 36.4; BMI 24.0
[2022-10-04 11:23] VITALS: BP 133/70; PULSE 73; RESP 16; TEMP 35.8; BMI 24.0
--- NOTE | 2022-10-04 12:31 | PN.PCM_ITS ---
History of Present Illness Date of Service: 10/04/22 Chief Complaint: Right posterior heel ulceration History of Wound: 67-year-old female recently discharged from the hospital presents today receiving linezolid orally for a right heel wound. Patient has new onset blister to left foot uncertain how. She states that she does not bear weight to the site at all. States that she does not remember hitting the area. She states that she sleeps on her back with offloading boots at all times and does not sleep on her left side. She denies constitutional's at this time denies any pain is no other complaints. Objective Data Objective Data Vital Signs: Vital Signs Temp Pulse Resp BP O2 Del Method 96.4 F L 73 16 133/70 H Room Air 10/04/22 11:23 10/04/22 11:23 10/04/22 11:23 10/04/22 11:23 10/04/22 11:23 Oxygen Delivery Method Room Air Weight: 63.503 kg Body Mass Index (BMI) 24.0 Physical Exam Narrative Patient alert oriented person place time. Neurovascular status unchanged from previous evaluation in the hospital. Full-thickness wound noted to the plantar heel on the right lower extremity. Resolved erythema edema. Minimal drainage to site. Granular base with small amounts of fibrotic tissue noted. Pre and post debridement measurements document nursing notes. No deep probing undermining or overt signs of acute infection. 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 This was a simple septic Rafael drained and the skin was left intact. TMA noted to the left lower extremity. No signs of DVT. Debridement Note Debridement Note Post-Debridement Measurements and Additional Note: Post-Debridement Measurements/Treatment - Nurse 1 - General Ulcer Assessment Start: 10/04/22 11:23 Freq: Status: Active Protocol: WC.LOWEXT Activity Type Activity Date Activity User E-sign Co-sign Detail Recorded Client Recorded Date Recorded By Document 10/04/22 11:23 [facility] [id number] 10/04/22 11:34 [facility] 10/04/22 11:23 - Today's Visit Information Type of service Follow-up Visit (Physician/PARTRIDGE FARMER ) Arrival Mode Wheelchair Transfer Assistance Other Transfer Assist (Other) 1 Accompanied by stand by Patient Identification Verified (Name & Yes ) Patient Requires Transmission-Based No Precautions Height and Weight Body Mass Index (BMI) 24.0 BMI Classification Normal Vital Signs Temperature (97.8 F-99.1 F) 96.4 F L Temperature Source Temporal Pulse Rate (60-100) 73 Pulse Location Monitor Respiratory Rate (12-18) 16 Respiratory rate source Observation Oxygen Delivery Method Room Air Blood Pressure (90/60-120/80) 133/70 H Blood Pressure Mean (mm Hg) 91 Source Monitor Position Sitting Blood Pressure Location Right Arm History Since Last Visit- (Skip if this is Patient's initial visit) Have you changed medications since your No last visit? Any new allergies or adverse reactions No Had a fall/change in ADL's that may No increase risk of falls Signs or symptoms of abuse and/or No neglect since last visit Have you been in the hospital since your No last visit? Has dressing in place as prescribed Yes Has compression in place as prescribed N/A Has offloadiing in place as prescribed Yes Experienced any changes in pain level or No management Left Footwear Other Footwear (Comment) Right Footwear Surgical Shoe with pressure relief insole Other Footwear L foot drsg only Pain Scale: 0-10 Numeric Is Patient Pain Free? Yes WC - Nurse 1 - General Ulcer Measurement Start: 10/04/22 11:23 Freq: Status: Active Protocol: Activity Type Activity Date Activity User E-sign Co-sign Detail Recorded Client Recorded Date Recorded By Document 10/04/22 11:23 [facility] [id number] 10/04/22 11:34 [facility] 10/04/22 11:23 Wound Center Nurse 1 #7 right heel -Combined with other wound No -Current Size (cm) - Length 2.1 -Current Size (cm) - Width 2 -Current Size (cm) - Depth 0.1 -Total Square Cm 4.2 -Date of Last Picture (Recall this 10/04/22 field) -Photo Taken Yes -Epithelialization Small 1-33% -Tunneling No -Undermining/Tunneling No -Circular Undermining No -Exudate Amt Medium -Exudate Type Serosanguineous -Wound Margin Flat & Intact -Granulation Amt Medium (34-66%) -Granulation Quality Red -Slough/Fibrin Yes -Necrosis Amt Medium (34-66%) -Necrotic Tissue Type Adherent Slough -Texture (Margy-wound Skin Appearance) Assessed,Callus ,Scarring -Moisture (Margy-wound Skin Appearance) Assessed,Dry/ Scaly -Color (Margy-wound Skin Appearance) Assessed, Erythema -Temperature (Margy-wound Skin No Abnormality Appearance) (Pt Warm) -Tenderness on Palpation (Margy-wound No Skin Appearance) -Ulcer Cleansing Soap and Water -Foul Odor after Cleansing No -Anesthetic Used 5% Lidocaine Gel WC - Nurse 2 - General Ulcer CM Notes Start: 10/04/22 11:23 Freq: Status: Active Protocol: Activity Type Activity Date Activity User E-sign Co-sign Detail Recorded Client Recorded Date Recorded By Document 10/04/22 11:46 [id number] 10/04/22 11:47 10/04/22 11:46 Wound Center Nurse 2 -Time 11:47 -Correct Patient Yes -Correct Side, Site, Position Yes -Correct Procedure Yes -Procedure Performed Yes -Type of Procedure Debridement -Clinical Debridement Subcutaneous -Tissue Removed Subcutaneous -Post Debridement (cm) - Length 2.2 -Post Debridement (cm) - Width 2 -Post Debridement (cm) - Depth 0.1 -Total Square (Post) (cm) 4.4 -Area of Debridement (cm) - Length 2.2 -Area of Debridement (cm) - Width 2.0 -Total Square (Area) (cm) 4.40 -Tunneling No -Undermining/Tunneling No -Circular Undermining No -Wound/Ulcer Outcome Not Healed -Ulcer Cleansing Rinsed/ Irrigated with Saline -Foul Odor after Cleansing No -Bioengineered Tissue No -Bleeding Controlled with Pressure -Treatment Response Procedure Tolerated Well -Offloading Yes -Type of Offloading Surgical Shoe -Assistive Device(s) Wheelchair -Debridement - Subq, 1st 20sq cm Yes Pain Scale: 0-10 Numeric Is Patient Pain Free? Yes - Nurse 3 - General Ulcer D/C NN Start: 10/04/22 11:23 Freq: Status: Active Protocol: Activity Type Activity Date Activity User E-sign Co-sign Detail Recorded Client Recorded Date Recorded By Document 10/04/22 12:10 [facility] [id number] 10/04/22 12:11 [facility] 10/04/22 12:10 Wound Care Nurse 3 #7 right heel -Ulcer Cleansing Rinsed/ Irrigated with Saline -Foul Odor after Cleansing No -Primary Dressing Applied Aquacel AG 2x2 -Other Dressing heel hat -Primary Dressing Covered/Secured with Dry Gauze & Roll Gauze, Secured with Tape -Aquacel AG 2x2 1 Treatment Response Procedure Tolerated Well Pain Scale: 0-10 Numeric Is Patient Pain Free? Yes WC - Visit Discharge Discharge Condition Stable Ambulatory Status Wheelchair Notes: betadine, heel hat, abd to L heel and lat foot to protect skin Facility Type Home Health Assessment/Plan Assessment/Plan (1) Non-pressure chronic ulcer of other part of right foot with fat layer exposed: CODE(S): L97.512 - Non-pressure chronic ulcer of other part of right foot with fat layer exposed PLAN: Exam performed. Arterial studies reviewed. We will hold off vascular consult at this time. Plantar right heel wound was excisionally debrided down to including level of subcutaneous tissue of all nonviable tissue using a 5 mm dermal curette. Patient tolerated procedure well. Hemostasis obtained with light compression. Pre and postdebridement measurements document nursing notes. No anesthesia due to neuropathy. Patient will continue home health care dressing changes every other day consisting of silver alginate to right heel and Betadine paint to left forefoot. Patient will continue nonweightbearing and take a baby aspirin every day for DVT prophylaxis she will follow-up in 1 week. (2) Peripheral vascular disease, unspecified: CODE(S): I73.9 - Peripheral vascular disease, unspecified
[2022-10-11 10:49] VITALS: BP 184/85; PULSE 64; RESP 16; TEMP 36.2; BMI 24.0
--- NOTE | 2022-10-11 11:35 | PCM.WC.PN ---
History of Present Illness Date of Service: 10/11/22 Chief Complaint: Right posterior heel ulceration History of Wound: 67-year-old female recently discharged from the hospital presents today receiving linezolid orally for a right heel wound. Patient has new onset blister to left foot uncertain how. She states that she does not bear weight to the site at all. States that she does not remember hitting the area. She states that she sleeps on her back with offloading boots at all times and does not sleep on her left side. She denies constitutional's at this time denies any pain is no other complaints. Objective Data Objective Data Vital Signs: Vital Signs Temp Pulse Resp BP O2 Del Method 97.1 F L 64 16 184/85 H Room Air 10/11/22 10:49 10/11/22 10:49 10/11/22 10:49 10/11/22 10:49 10/11/22 10:49 Oxygen Delivery Method Room Air Weight: 63.503 kg Body Mass Index (BMI) 24.0 Physical Exam Narrative Patient alert oriented person place time. Neurovascular status unchanged from previous evaluation in the hospital. Full-thickness wound noted to the plantar heel on the right lower extremity. Resolved erythema edema. Minimal drainage to site. Granular base with small amounts of fibrotic tissue noted. Pre and post debridement measurements document nursing notes. No deep probing undermining or overt signs of acute infection. 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 This was a simple septic Rafael drained and the skin was left intact. TMA noted to the left lower extremity. No signs of DVT. Debridement Note Debridement Note Post-Debridement Measurements and Additional Note: Post-Debridement Measurements/Treatment - Nurse 1 - General Ulcer Assessment Start: 10/04/22 11:23 Freq: Status: Active Protocol: WC.LOWEXT Activity Type Activity Date Activity User E-sign Co-sign Detail Recorded Client Recorded Date Recorded By Document 10/04/22 11:23 [facility] [id number] 10/04/22 11:34 [facility] Document 10/11/22 10:49 [facility] [id number] 10/11/22 10:57 [facility] 10/04/22 10/11/22 11:23 10:49 - Today's Visit Information Type of service Follow-up Visit Follow-up Visit (Physician/ICT ACCOUNT MANAGER (Physician/ICT ACCOUNT MANAGER ) ) Arrival Mode Wheelchair Wheelchair Transfer Assistance Other Other Transfer Assist (Other) 1 STAND BY Accompanied by stand by DAUGHTER Patient Identification Verified (Name & Yes Yes ) Patient Requires Transmission-Based No No Precautions Height and Weight Body Mass Index (BMI) 24.0 24.0 BMI Classification Normal Normal Vital Signs Temperature (97.8 F-99.1 F) 96.4 F L 97.1 F L Temperature Source Temporal Temporal Pulse Rate (60-100) 73 64 Pulse Location Monitor Monitor Respiratory Rate (12-18) 16 16 Respiratory rate source Observation Observation Oxygen Delivery Method Room Air Room Air Blood Pressure (90/60-120/80) 133/70 H 184/85 H Blood Pressure Mean (mm Hg) 91 118 Source Monitor Monitor Position Sitting Sitting Blood Pressure Location Right Arm Right Arm History Since Last Visit- (Skip if this is Patient's initial visit) Have you changed medications since your No No last visit? Any new allergies or adverse reactions No No Had a fall/change in ADL's that may No No increase risk of falls Signs or symptoms of abuse and/or No No neglect since last visit Have you been in the hospital since your No No last visit? Has dressing in place as prescribed Yes Yes Has compression in place as prescribed N/A N/A Has offloadiing in place as prescribed Yes Yes Experienced any changes in pain level or No No management Left Footwear Other Footwear (Comment) Right Footwear Surgical Shoe Surgical Shoe with pressure with pressure relief insole relief insole Other Footwear L foot drsg SOCK TO LEFT only FOOT Pain Scale: 0-10 Numeric Is Patient Pain Free? Yes Yes WC - Nurse 1 - General Ulcer Measurement Start: 10/04/22 11:23 Freq: Status: Active Protocol: Activity Type Activity Date Activity User E-sign Co-sign Detail Recorded Client Recorded Date Recorded By Document 10/04/22 11:23 [facility] [id number] 10/04/22 11:34 [facility] Document 10/11/22 10:49 [facility] [id number] 10/11/22 10:57 [facility] 10/04/22 10/11/22 11:23 10:49 Wound Center Nurse 1 #7 right heel -Combined with other wound No No -Current Size (cm) - Length 2.1 2.5 -Current Size (cm) - Width 2 2.7 -Current Size (cm) - Depth 0.1 0.1 -Total Square Cm 4.2 6.75 -Date of Last Picture (Recall this 10/04/22 10/11/22 field) -Photo Taken Yes Yes -Epithelialization Small 1-33% None Present -Tunneling No No -Undermining/Tunneling No No -Circular Undermining No No -Exudate Amt Medium Medium -Exudate Type Serosanguineous Serosanguineous -Wound Margin Flat & Intact Flat & Intact -Granulation Amt Medium (34-66%) Small (1-33%) -Granulation Quality Red Red -Slough/Fibrin Yes Yes -Necrosis Amt Medium (34-66%) Large (67-100%) -Necrotic Tissue Type Adherent Slough Adherent Slough -Texture (Margy-wound Skin Appearance) Assessed,Callus Assessed, ,Scarring Scarring -Moisture (Margy-wound Skin Appearance) Assessed,Dry/ Assessed, Scaly Maceration -Color (Margy-wound Skin Appearance) Assessed, Assessed,Palor Erythema -Temperature (Margy-wound Skin No Abnormality No Abnormality Appearance) (Pt Warm) (Pt Warm) -Tenderness on Palpation (Margy-wound No No Skin Appearance) -Ulcer Cleansing Soap and Water Rinsed/ Irrigated with Saline -Foul Odor after Cleansing No No -Anesthetic Used 5% Lidocaine 5% Lidocaine Gel Gel WC - Nurse 2 - General Ulcer CM Notes Start: 10/04/22 11:23 Freq: Status: Active Protocol: Activity Type Activity Date Activity User E-sign Co-sign Detail Recorded Client Recorded Date Recorded By Document 10/04/22 11:46 [id number] 10/04/22 11:47 Document 10/11/22 11:14 [id number] 10/11/22 11:21 10/04/22 10/11/22 11:46 11:14 Wound Center Nurse 2 8-left lateral foot -Time 11:20 -Correct Patient Yes -Correct Side, Site, Position Yes -Correct Procedure Yes -Procedure Performed Yes -Type of Procedure Debridement -Clinical Debridement Subcutaneous -Tissue Removed Subcutaneous -Post Debridement (cm) - Length 1.5 -Post Debridement (cm) - Width 3.0 -Post Debridement (cm) - Depth 0.1 -Total Square (Post) (cm) 4.50 -Area of Debridement (cm) - Length 1.5 -Area of Debridement (cm) - Width 3.0 -Total Square (Area) (cm) 4.50 -Tunneling No -Undermining/Tunneling No -Circular Undermining No -Wound/Ulcer Outcome Not Healed -Ulcer Cleansing Rinsed/ Irrigated with Saline -Foul Odor after Cleansing No -Bioengineered Tissue No -Bleeding Controlled with Pressure -Treatment Response Procedure Tolerated Well -Offloading No -Debridement - Subq, 1st 20sq cm Yes #7 right heel -Time 11:47 11:15 -Correct Patient Yes Yes -Correct Side, Site, Position Yes Yes -Correct Procedure Yes Yes -Procedure Performed Yes Yes -Type of Procedure Debridement Debridement -Clinical Debridement Subcutaneous Subcutaneous -Tissue Removed Subcutaneous Dermis -Post Debridement (cm) - Length 2.2 2.5 -Post Debridement (cm) - Width 2 2.3 -Post Debridement (cm) - Depth 0.1 0.1 -Total Square (Post) (cm) 4.4 5.75 -Area of Debridement (cm) - Length 2.2 2.5 -Area of Debridement (cm) - Width 2.0 2.3 -Total Square (Area) (cm) 4.40 5.75 -Tunneling No No -Undermining/Tunneling No No -Circular Undermining No No -Wound/Ulcer Outcome Not Healed Not Healed -Ulcer Cleansing Rinsed/ Rinsed/ Irrigated with Irrigated with Saline Saline -Foul Odor after Cleansing No No -Bioengineered Tissue No Yes -Type of Bioengineered Tissue Epifix Mesh -Expiration Date 07/30/27 -Product Lot Number [id number] -Percent Used 100 -Lot number of Saline Used [id number] -Bleeding Controlled with Pressure -Treatment Response Procedure Procedure Tolerated Well Tolerated Well -Offloading Yes Yes -Type of Offloading Surgical Shoe Surgical Shoe -Assistive Device(s) Wheelchair -Debridement - Subq, 1st 20sq cm Yes No -Apply Skin Sub - 1st 25 sq cm - Feet 1 -Epifix Mesh (per sq cm) 11 Pain Scale: 0-10 Numeric Is Patient Pain Free? Yes Yes WC - Nurse 3 - General Ulcer D/C NN Start: 10/04/22 11:23 Freq: Status: Active Protocol: Activity Type Activity Date Activity User E-sign Co-sign Detail Recorded Client Recorded Date Recorded By Document 10/04/22 12:10 [facility] [id number] 10/04/22 12:11 [facility] Document 10/11/22 11:26 [facility] [id number] 10/11/22 11:28 [facility] 10/04/22 10/11/22 12:10 11:26 Wound Care Nurse 3 8-left lateral foot -Other Dressing BETADINE, PER MW RN -Primary Dressing Covered/Secured with Dry Gauze & Roll Gauze, Secured with Tape #7 right heel -Ulcer Cleansing Rinsed/ Irrigated with Saline -Foul Odor after Cleansing No -Primary Dressing Applied Aquacel AG 2x2 -Other Dressing heel hat EPIMESH, ABD -Primary Dressing Covered/Secured with Dry Gauze & Dry Gauze & Roll Gauze, Roll Gauze, Secured with Secured with Tape Tape -Other Covering DRSG PER MW RN -Aquacel AG 2x2 1 BLE -Tubular Bandage Single Layer -Size of Tubigrip Used Size D -Size D ($) 2 Treatment Response Procedure Procedure Tolerated Well Tolerated Well Pain Scale: 0-10 Numeric Is Patient Pain Free? Yes Yes WC - Visit Discharge Discharge Condition Stable Stable Ambulatory Status Wheelchair Wheelchair Transportation Private Auto Accompanied by DAUGHTER Notes: betadine, heel hat, abd to L heel and lat foot to protect skin Facility Type Home Health Assessment/Plan Assessment/Plan (1) Non-pressure chronic ulcer of other part of right foot with fat layer exposed: CODE(S): L97.512 - Non-pressure chronic ulcer of other part of right foot with fat layer exposed PLAN: Exam performed. Arterial studies reviewed. We will hold off vascular consult at this time. Plantar right heel wound was excisionally debrided down to including level of subcutaneous tissue of all nonviable tissue using a 5 mm dermal curette. Patient tolerated procedure well. Hemostasis obtained with light compression. Pre and postdebridement measurements document nursing notes. No anesthesia due to neuropathy. 4x5cm graft applied, all graft used - no waste. 11 billing units, stabilized with steristrips and adaptic. keep offloading heels with offloading boots and heel floating. follow up in 1 week. (2) Peripheral vascular disease, unspecified: CODE(S): I73.9 - Peripheral vascular disease, unspecified
[2022-10-18 11:10] VITALS: BP 159/80; PULSE 63; RESP 18; TEMP 35.9; BMI 24.0
[2022-10-25 09:18] VITALS: BP 167/67; PULSE 61; RESP 20; TEMP 36.5; BMI 24.0
--- NOTE | 2022-10-25 11:01 | PCM.WC.PN ---
History of Present Illness Date of Service: 10/25/22 Chief Complaint: Right posterior heel ulceration History of Wound: 67-year-old female recently discharged from the hospital presents today receiving linezolid orally for a right heel wound. Patient has new onset blister to left foot uncertain how. She states that she does not bear weight to the site at all. States that she does not remember hitting the area. She states that she sleeps on her back with offloading boots at all times and does not sleep on her left side. She denies constitutional's at this time denies any pain is no other complaints. Objective Data Objective Data Vital Signs: Vital Signs Temp Pulse Resp BP O2 Del Method 97.7 F L 61 20 H 167/67 H Room Air 10/25/22 09:18 10/25/22 09:18 10/25/22 09:18 10/25/22 09:18 10/11/22 10:49 Oxygen Delivery Method Room Air Weight: 63.503 kg Body Mass Index (BMI) 24.0 Physical Exam Narrative Patient alert oriented person place time. Neurovascular status unchanged from previous evaluation in the hospital. Full-thickness wound noted to the plantar heel on the right lower extremity. Resolved erythema edema. Minimal drainage to site. Granular base with small amounts of fibrotic tissue noted. Pre and post debridement measurements document nursing notes. No deep probing undermining or overt signs of acute infection. 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 This was a simple septic Rafael drained and the skin was left intact. TMA noted to the left lower extremity. No signs of DVT. Debridement Note Debridement Note Post-Debridement Measurements and Additional Note: Post-Debridement Measurements/Treatment - Nurse 1 - General Ulcer Assessment Start: 10/04/22 11:23 Freq: Status: Active Protocol: WC.LOWEXT Activity Type Activity Date Activity User E-sign Co-sign Detail Recorded Client Recorded Date Recorded By Document 10/04/22 11:23 [facility] [id number] 10/04/22 11:34 BM Document 10/11/22 10:49 [facility] [id number] 10/11/22 10:57 BMF Document 10/18/22 11:10 DL [id number] 10/18/22 11:17 DL Document 10/25/22 09:18 DL [id number] 10/25/22 09:30 DL 10/04/22 10/11/22 10/18/22 11:23 10:49 11:10 WC - Today's Visit Information Type of service Follow-up Visit Follow-up Visit Nurse-only (Physician/LEAD WEB APPLICATION DEVELOPER (Physician/LEAD WEB APPLICATION DEVELOPER Visit ) ) Arrival Mode Wheelchair Wheelchair Wheelchair Transfer Assistance Other Other Manual Transfer Assist (Other) 1 STAND BY Accompanied by stand by DAUGHTER Patient Identification Verified (Name & Yes Yes Yes ) Patient Requires Transmission-Based No No No Precautions Finger Stick Blood Sugar(mg/dl) (if not checked indicated): Blood Sugar Height and Weight Body Mass Index (BMI) 24.0 24.0 24.0 BMI Classification Normal Normal Normal Vital Signs Temperature (97.8 F-99.1 F) 96.4 F L 97.1 F L 96.7 F L Temperature Source Temporal Temporal Temporal Pulse Rate (60-100) 73 64 63 Pulse Location Monitor Monitor Monitor Respiratory Rate (12-18) 16 16 18 Respiratory rate source Observation Observation Observation Oxygen Delivery Method Room Air Room Air Blood Pressure (90/60-120/80) 133/70 H 184/85 H 159/80 H Blood Pressure Mean (mm Hg) 91 118 106 Source Monitor Monitor Monitor Position Sitting Sitting Blood Pressure Location Right Arm Right Arm History Since Last Visit- (Skip if this is Patient's initial visit) Have you changed medications since your No No No last visit? Any new allergies or adverse reactions No No No Had a fall/change in ADL's that may No No No increase risk of falls Signs or symptoms of abuse and/or No No No neglect since last visit Have you been in the hospital since your No No No last visit? Has dressing in place as prescribed Yes Yes Yes Has compression in place as prescribed N/A N/A Yes Has offloadiing in place as prescribed Yes Yes Yes Experienced any changes in pain level or No No No management Left Footwear Other Footwear Howe/Foam (Comment) Right Footwear Surgical Shoe Surgical Shoe Howe/Foam with pressure with pressure relief insole relief insole Other Footwear L foot drsg SOCK TO LEFT only FOOT Pain Scale: 0-10 Numeric Is Patient Pain Free? Yes Yes Yes 10/25/22 09:18 WC - Today's Visit Information Type of service Follow-up Visit (Physician/LEAD WEB APPLICATION DEVELOPER ) Arrival Mode Wheelchair Transfer Assistance Manual Transfer Assist (Other) x1 Accompanied by Patient Identification Verified (Name & Yes ) Patient Requires Transmission-Based No Precautions Finger Stick Blood Sugar(mg/dl) (if not checked indicated): Blood Sugar Stated by Patient Height and Weight Body Mass Index (BMI) 24.0 BMI Classification Normal Vital Signs Temperature (97.8 F-99.1 F) 97.7 F L Temperature Source Temporal Pulse Rate (60-100) 61 Pulse Location Monitor Respiratory Rate (12-18) 20 H Respiratory rate source Observation Oxygen Delivery Method Blood Pressure (90/60-120/80) 167/67 H Blood Pressure Mean (mm Hg) 100 Source Monitor Position Blood Pressure Location History Since Last Visit- (Skip if this is Patient's initial visit) Have you changed medications since your No last visit? Any new allergies or adverse reactions No Had a fall/change in ADL's that may No increase risk of falls Signs or symptoms of abuse and/or No neglect since last visit Have you been in the hospital since your No last visit? Has dressing in place as prescribed Yes Has compression in place as prescribed Yes Has offloadiing in place as prescribed Yes Experienced any changes in pain level or No management Left Footwear Howe/Foam Right Footwear Howe/Foam Other Footwear Pain Scale: 0-10 Numeric Is Patient Pain Free? Yes WC - Nurse 1 - General Ulcer Measurement Start: 10/04/22 11:23 Freq: Status: Active Protocol: Activity Type Activity Date Activity User E-sign Co-sign Detail Recorded Client Recorded Date Recorded By Document 10/04/22 11:23 [facility] [id number] 10/04/22 11:34 [facility] Document 10/11/22 10:49 [facility] [id number] 10/11/22 10:57 [facility] Document 10/18/22 11:10 DL [id number] 10/18/22 11:17 DL Document 10/25/22 09:18 DL [id number] 10/25/22 09:30 DL 10/04/22 10/11/22 10/18/22 11:23 10:49 11:10 Wound Center Nurse 1 8-left lateral foot -Current Size (cm) - Length 3 -Current Size (cm) - Width 1.5 -Current Size (cm) - Depth 0.1 -Total Square Cm 4.5 -Photo Taken -Exudate Amt Medium -Exudate Type Serosanguineous -Wound Margin Distinct, Outline Attached -Granulation Amt Small (1-33%) -Granulation Quality [place] -Necrosis Amt Large (67-100%) -Necrotic Tissue Type Adherent Slough -Structure Exposed N/A -Texture (Margy-wound Skin Appearance) Scarring -Moisture (Margy-wound Skin Appearance) Dry/Scaly -Color (Margy-wound Skin Appearance) No Abnormality -Temperature (Margy-wound Skin No Abnormality Appearance) (Pt Warm) -Tenderness on Palpation (Margy-wound No Skin Appearance) -Ulcer Cleansing Soap and Water -Foul Odor after Cleansing No -Anesthetic Used -Wound Comment(s) Betadine applied as ordered last week. #7 right heel -Combined with other wound No No -Current Size (cm) - Length 2.1 2.5 2.5 -Current Size (cm) - Width 2 2.7 2.5 -Current Size (cm) - Depth 0.1 0.1 0.1 -Total Square Cm 4.2 6.75 6.25 -Date of Last Picture (Recall this 10/04/22 10/11/22 field) -Photo Taken Yes Yes -Epithelialization Small 1-33% None Present -Tunneling No No -Undermining/Tunneling No No -Circular Undermining No No -Exudate Amt Medium Medium Medium -Exudate Type Serosanguineous Serosanguineous Serosanguineous -Wound Margin Flat & Intact Flat & Intact Distinct, Outline Attached -Granulation Amt Medium (34-66%) Small (1-33%) Large (67-100%) -Granulation Quality Red Red [place] -Slough/Fibrin Yes Yes -Necrosis Amt Medium (34-66%) Large (67-100%) Small (1-33%) -Necrotic Tissue Type Adherent Slough Adherent Slough Adherent Slough -Structure Exposed N/A -Texture (Margy-wound Skin Appearance) Assessed,Callus Assessed, Scarring ,Scarring Scarring -Moisture (Margy-wound Skin Appearance) Assessed,Dry/ Assessed, No Abnormality Scaly Maceration -Color (Margy-wound Skin Appearance) Assessed, Assessed,Palor No Abnormality Erythema -Temperature (Margy-wound Skin No Abnormality No Abnormality No Abnormality Appearance) (Pt Warm) (Pt Warm) (Pt Warm) -Tenderness on Palpation (Amrgy-wound No No No Skin Appearance) -Ulcer Cleansing Soap and Water Rinsed/ Soap and Water Irrigated with Saline -Foul Odor after Cleansing No No Yes -Anesthetic Used 5% Lidocaine 5% Lidocaine Gel Gel -Wound Comment(s) No Epimesh noted to would upon removal of dressing today . Pt denies having changed dressing throughout the week. Aquacel Ag applied today, Casemanager aware. Right Calf (cm) Right Ankle (cm) Left Calf (cm) Left Ankle (cm) 10/25/22 09:18 Wound Center Nurse 1 8-left lateral foot -Current Size (cm) - Length 3 -Current Size (cm) - Width 1.1 -Current Size (cm) - Depth 0.1 -Total Square Cm 3.3 -Photo Taken Yes -Exudate Amt None Present -Exudate Type -Wound Margin Thickened -Granulation Amt Small (1-33%) -Granulation Quality -Necrosis Amt Large (67-100%) -Necrotic Tissue Type Eschar -Structure Exposed N/A -Texture (Margy-wound Skin Appearance) Scarring -Moisture (Margy-wound Skin Appearance) Dry/Scaly -Color (Margy-wound Skin Appearance) No Abnormality -Temperature (Margy-wound Skin No Abnormality Appearance) (Pt Warm) -Tenderness on Palpation (Margy-wound No Skin Appearance) -Ulcer Cleansing -Foul Odor after Cleansing -Anesthetic Used 5% Lidocaine Gel -Wound Comment(s) #7 right heel -Combined with other wound -Current Size (cm) - Length 2.1 -Current Size (cm) - Width 3 -Current Size (cm) - Depth 0.1 -Total Square Cm 6.3 -Date of Last Picture (Recall this field) -Photo Taken Yes -Epithelialization -Tunneling -Undermining/Tunneling -Circular Undermining -Exudate Amt Medium -Exudate Type Serosanguineous -Wound Margin Distinct, Outline Attached -Granulation Amt Medium (34-66%) -Granulation Quality Red -Slough/Fibrin -Necrosis Amt Medium (34-66%) -Necrotic Tissue Type Adherent Slough -Structure Exposed N/A -Texture (Margy-wound Skin Appearance) Scarring -Moisture (Margy-wound Skin Appearance) Maceration -Color (Margy-wound Skin Appearance) Ecchymosis -Temperature (Margy-wound Skin No Abnormality Appearance) (Pt Warm) -Tenderness on Palpation (Margy-wound No Skin Appearance) -Ulcer Cleansing Soap and Water -Foul Odor after Cleansing No -Anesthetic Used 5% Lidocaine Gel -Wound Comment(s) Right Calf (cm) 31 Right Ankle (cm) 22.2 Left Calf (cm) 31.5 Left Ankle (cm) 21 WC - Nurse 2 - General Ulcer CM Notes Start: 10/04/22 11:23 Freq: Status: Active Protocol: Activity Type Activity Date Activity User E-sign Co-sign Detail Recorded Client Recorded Date Recorded By Document 10/04/22 11:46 [id number] 10/04/22 11:47 Document 10/11/22 11:14 [id number] 10/11/22 11:21 Document 10/25/22 09:53 [id number] 10/25/22 09:54 10/04/22 10/11/22 10/25/22 11:46 11:14 09:53 Wound Center Nurse 2 8-left lateral foot -Time 11:20 -Correct Patient Yes No -Correct Side, Site, Position Yes No -Correct Procedure Yes No -Procedure Performed Yes No -Type of Procedure Debridement -Clinical Debridement Subcutaneous -Tissue Removed Subcutaneous -Post Debridement (cm) - Length 1.5 -Post Debridement (cm) - Width 3.0 -Post Debridement (cm) - Depth 0.1 -Total Square (Post) (cm) 4.50 -Area of Debridement (cm) - Length 1.5 -Area of Debridement (cm) - Width 3.0 -Total Square (Area) (cm) 4.50 -Tunneling No -Undermining/Tunneling No -Circular Undermining No -Wound/Ulcer Outcome Not Healed Not Healed -Ulcer Cleansing Rinsed/ Irrigated with Saline -Foul Odor after Cleansing No -Bioengineered Tissue No -Bleeding Controlled with Pressure -Treatment Response Procedure Tolerated Well -Offloading No -Debridement - Subq, 1st 20sq cm Yes #7 right heel -Time 11:47 11:15 09:54 -Correct Patient Yes Yes Yes -Correct Side, Site, Position Yes Yes Yes -Correct Procedure Yes Yes Yes -Procedure Performed Yes Yes Yes -Type of Procedure Debridement Debridement Debridement -Clinical Debridement Subcutaneous Subcutaneous Subcutaneous -Tissue Removed Subcutaneous Dermis Subcutaneous -Post Debridement (cm) - Length 2.2 2.5 2.2 -Post Debridement (cm) - Width 2 2.3 3 -Post Debridement (cm) - Depth 0.1 0.1 0.1 -Total Square (Post) (cm) 4.4 5.75 6.6 -Area of Debridement (cm) - Length 2.2 2.5 2.2 -Area of Debridement (cm) - Width 2.0 2.3 3 -Total Square (Area) (cm) 4.40 5.75 6.6 -Tunneling No No No -Undermining/Tunneling No No No -Circular Undermining No No No -Wound/Ulcer Outcome Not Healed Not Healed Not Healed -Ulcer Cleansing Rinsed/ Rinsed/ Rinsed/ Irrigated with Irrigated with Irrigated with Saline Saline Saline -Foul Odor after Cleansing No No No -Bioengineered Tissue No Yes No -Type of Bioengineered Tissue Epifix Mesh -Expiration Date 07/30/27 -Product Lot Number [id number] -Percent Used 100 -Lot number of Saline Used [id number] -Bleeding Controlled with Pressure Pressure -Treatment Response Procedure Procedure Procedure Tolerated Well Tolerated Well Tolerated Well -Offloading Yes Yes Yes -Type of Offloading Surgical Shoe Surgical Shoe Surgical Shoe -Assistive Device(s) Wheelchair -Debridement - Subq, 1st 20sq cm Yes No Yes -Apply Skin Sub - 1st 25 sq cm - Feet 1 -Epifix Mesh (per sq cm) 11 Pain Scale: 0-10 Numeric Is Patient Pain Free? Yes Yes Yes - Nurse 3 - General Ulcer D/C NN Start: 10/04/22 11:23 Freq: Status: Active Protocol: Activity Type Activity Date Activity User E-sign Co-sign Detail Recorded Client Recorded Date Recorded By Document 10/04/22 12:10 [facility] [id number] 10/04/22 12:11 BM Document 10/11/22 11:26 [facility] [id number] 10/11/22 11:28 BM Document 10/18/22 11:17 DL [id number] 10/18/22 11:18 DL 10/04/22 10/11/22 10/18/22 12:10 11:26 11:17 Wound Care Nurse 3 8-left lateral foot -Ulcer Cleansing Soap and Water -Foul Odor after Cleansing No -Other Dressing BETADINE, PER betadine MW RN -Primary Dressing Covered/Secured with Dry Gauze & Dry Gauze & Roll Gauze, Roll Gauze, Secured with Secured with Tape Tape #7 right heel -Ulcer Cleansing Rinsed/ Soap and Water Irrigated with Saline -Foul Odor after Cleansing No No -Primary Dressing Applied Aquacel AG 2x2 Aquacel AG 2x2 -Other Dressing heel hat EPIMESH, ABD -Primary Dressing Covered/Secured with Dry Gauze & Dry Gauze & Dry Gauze & Roll Gauze, Roll Gauze, Roll Gauze, Secured with Secured with Secured with Tape Tape Tape -Other Covering DRSG PER MW RN -Aquacel AG 2x2 1 1 BLE -Tubular Bandage Single Layer -Size of Tubigrip Used Size D -Size D ($) 2 Treatment Response Procedure Procedure Procedure Tolerated Well Tolerated Well Tolerated Well Pain Scale: 0-10 Numeric Is Patient Pain Free? Yes Yes Yes WC - Visit Discharge Discharge Condition Stable Stable Stable Ambulatory Status Wheelchair Wheelchair Wheelchair Transportation Private Auto Private Auto Accompanied by DAUGHTER daughter Notes: betadine, heel hat, abd to L heel and lat foot to protect skin Facility Type Home Health Home Health Orders Sent Yes Assessment/Plan Assessment/Plan (1) Non-pressure chronic ulcer of other part of right foot with fat layer exposed: CODE(S): L97.512 - Non-pressure chronic ulcer of other part of right foot with fat layer exposed PLAN: Exam performed. Arterial studies reviewed. We will hold off vascular consult at this time. Wound worsening again appears to have more pressure injury. Discussed with patient again in detail how she offloads her foot. She notes that she wears eggcrate protectors while sitting in her wheelchair during the day. Discussed that this is likely when her wound is getting worse. I recommended getting a Prevalon boot to be worn at all hours of the day. Plantar right heel wound was excisionally debrided down to including level of subcutaneous tissue of all nonviable tissue using a 5 mm dermal curette. Patient tolerated procedure well. Hemostasis obtained with light compression. Pre and postdebridement measurements document nursing notes. No anesthesia due to neuropathy. No epi fix graft today due to demarcation of wound. Follow-up in 1 week we will consider return to grafting. (2) Peripheral vascular disease, unspecified: CODE(S): I73.9 - Peripheral vascular disease, unspecified
== END 2022-10-29 23:59 | disposition home or self-care (01) ==
LOC: WC 09:15
PROVIDERS: PCP Family Medicine; Referring Provider Internal Medicine; Visit Provider Podiatrist
DX: E11.621 Type 2 diabetes mellitus with foot ulcer (principal); E11.51 Type 2 diabetes mellitus with diabetic peripheral angiopathy without gangrene; T87.89 Other complications of amputation stump; L97.412 Non-pressure chronic ulcer of right heel and midfoot with fat layer exposed; Y83.5 Amputation of limb(s) as the cause of abnormal reaction of the patient, or of later complication, without mention of misadventure at the time of the procedure
CPT/HCPCS: 11042; 15275; 99213; Q4186; G0463

== ENCOUNTER 2022-11-15 11:00 | Outpatient (RCR) | payer MEDICARE, OTHER, SELFPAY ==
[2022-10-30 00:10] VITALS: BP 167/67; PULSE 61; RESP 20; TEMP 36.5; BMI 24.0
[2022-11-08 11:16] VITALS: BP 155/63; PULSE 64; RESP 16; TEMP 35.4; BMI 24.0
--- NOTE | 2022-11-08 12:06 | PN.PCM_ITS ---
History of Present Illness Date of Service: 11/08/22 Chief Complaint: Right posterior heel ulceration History of Wound: 67-year-old female recently discharged from the hospital presents today receiving linezolid orally for a right heel wound. Patient has new onset blister to left foot uncertain how. She states that she does not bear weight to the site at all. States that she does not remember hitting the area. She states that she sleeps on her back with offloading boots at all times and does not sleep on her left side. She denies constitutional's at this time denies any pain is no other complaints. Objective Data Objective Data Vital Signs: Vital Signs Temp Pulse Resp BP O2 Del Method 95.8 F L 64 16 155/63 H Room Air 11/08/22 11:16 11/08/22 11:16 11/08/22 11:16 11/08/22 11:16 11/08/22 11:16 Oxygen Delivery Method Room Air Weight: 63.503 kg Body Mass Index (BMI) 24.0 Physical Exam Narrative Patient alert oriented person place time. Neurovascular status unchanged from previous evaluation in the hospital. Full-thickness wound noted to the plantar heel on the right lower extremity. Resolved erythema edema. Minimal drainage to site. Granular base with small amounts of fibrotic tissue noted. Pre and post debridement measurements document nursing notes. No deep probing undermining or overt signs of acute infection. Full-thickness wound to the left TMA site. No signs of infection or additional tissue injury. Small fiber granular base. TMA noted to the left lower extremity. No signs of DVT. Debridement Note Debridement Note Post-Debridement Measurements and Additional Note: Post-Debridement Measurements/Treatment - Nurse 1 - General Ulcer Assessment Start: 11/08/22 11:16 Freq: Status: Active Protocol: WC.LOWEXT Activity Type Activity Date Activity User E-sign Co-sign Detail Recorded Client Recorded Date Recorded By Document 11/08/22 11:16 MW [id number] 11/08/22 11:29 MW 11/08/22 11:16 - Today's Visit Information Type of service Follow-up Visit (Physician/INSEAM LEVELER ) Arrival Mode Wheelchair Transfer Assistance Manual Accompanied by self Patient Identification Verified (Name & Yes ) Patient Requires Transmission-Based No Precautions Safety Precautions Fall Prevention Height and Weight Body Mass Index (BMI) 24.0 BMI Classification Normal Vital Signs Temperature (97.8 F-99.1 F) 95.8 F L Temperature Source Temporal Pulse Rate (60-100) 64 Pulse Location Monitor Respiratory Rate (12-18) 16 Respiratory rate source Observation Oxygen Delivery Method Room Air Blood Pressure (90/60-120/80) 155/63 H Blood Pressure Mean (mm Hg) 93 Source Monitor Position Sitting Blood Pressure Location Right Arm History Since Last Visit- (Skip if this is Patient's initial visit) Have you changed medications since your No last visit? Any new allergies or adverse reactions No Had a fall/change in ADL's that may No increase risk of falls Signs or symptoms of abuse and/or No neglect since last visit Have you been in the hospital since your No last visit? Has dressing in place as prescribed Yes Has compression in place as prescribed Yes Has offloadiing in place as prescribed N/A Experienced any changes in pain level or No management Left Footwear Removable Cast Walker/Walking Boot Right Footwear Other Footwear (Comment) Other Footwear right heel protector boot Pain Scale: 0-10 Numeric Is Patient Pain Free? Yes WC - Nurse 1 - General Ulcer Measurement Start: 11/08/22 11:16 Freq: Status: Active Protocol: Activity Type Activity Date Activity User E-sign Co-sign Detail Recorded Client Recorded Date Recorded By Document 11/08/22 11:16 MW [id number] 11/08/22 11:29 MW 11/08/22 11:16 Wound Center Nurse 1 8-left lateral foot -Combined with other wound No -Current Size (cm) - Length 3.0 -Current Size (cm) - Width 0.9 -Current Size (cm) - Depth 0.1 -Total Square Cm 2.70 -Date of Last Picture (Recall this 11/08/22 field) -Photo Taken Yes -Epithelialization None Present -Tunneling No -Undermining/Tunneling No -Circular Undermining No -Exudate Amt Medium -Exudate Type Serosanguineous -Wound Margin Flat & Intact -Granulation Amt Large (67-100%) -Granulation Quality N/A,[place] -Necrosis Amt Small (1-33%) -Necrotic Tissue Type Adherent Slough -Structure Exposed N/A -Texture (Margy-wound Skin Appearance) Assessed, Scarring -Moisture (Margy-wound Skin Appearance) No Abnormality, Assessed -Color (Margy-wound Skin Appearance) Assessed -Temperature (Margy-wound Skin No Abnormality Appearance) (Pt Warm) -Tenderness on Palpation (Margy-wound No Skin Appearance) -Ulcer Cleansing Rinsed/ Irrigated with Saline -Foul Odor after Cleansing No -Anesthetic Used 5% Lidocaine Gel #7 right heel -Combined with other wound No -Current Size (cm) - Length 3.0 -Current Size (cm) - Width 5.0 -Current Size (cm) - Depth 0.1 -Total Square Cm 15.00 -Date of Last Picture (Recall this 11/08/22 field) -Photo Taken Yes -Epithelialization None Present -Tunneling No -Undermining/Tunneling No -Circular Undermining No -Exudate Amt Medium -Exudate Type Serosanguineous -Wound Margin Flat & Intact -Granulation Amt Large (67-100%) -Granulation Quality [place] -Slough/Fibrin Yes -Necrosis Amt Small (1-33%) -Necrotic Tissue Type Adherent Slough -Structure Exposed N/A -Texture (Margy-wound Skin Appearance) Assessed,Callus ,Scarring -Moisture (Margy-wound Skin Appearance) Assessed,Dry/ Scaly -Color (Margy-wound Skin Appearance) No Abnormality, Assessed -Temperature (Margy-wound Skin No Abnormality Appearance) (Pt Warm) -Tenderness on Palpation (Margy-wound No Skin Appearance) -Ulcer Cleansing Rinsed/ Irrigated with Saline -Foul Odor after Cleansing No -Anesthetic Used 5% Lidocaine Gel Lower Limb Edema Present No Right Calf (cm) 31.8 Right Ankle (cm) 21.1 Left Calf (cm) 34.5 Left Ankle (cm) 21.0 WC - Nurse 2 - General Ulcer CM Notes Start: 11/08/22 11:16 Freq: Status: Active Protocol: Activity Type Activity Date Activity User E-sign Co-sign Detail Recorded Client Recorded Date Recorded By Document 11/08/22 11:54 DIONI [id number] 11/08/22 12:04 DIONI 11/08/22 11:54 Wound Center Nurse 2 8-left lateral foot -Time 12:01 -Correct Patient Yes -Correct Side, Site, Position Yes -Correct Procedure Yes -Procedure Performed Yes -Type of Procedure Debridement -Clinical Debridement Subcutaneous -Tissue Removed Subcutaneous -Post Debridement (cm) - Length 3.1 -Post Debridement (cm) - Width 1 -Post Debridement (cm) - Depth 0.1 -Total Square (Post) (cm) 3.1 -Area of Debridement (cm) - Length 3.1 -Area of Debridement (cm) - Width 1 -Total Square (Area) (cm) 3.1 -Tunneling No -Undermining/Tunneling No -Circular Undermining No -Wound/Ulcer Outcome Not Healed -Ulcer Cleansing Rinsed/ Irrigated with Saline -Foul Odor after Cleansing No -Bioengineered Tissue No -Bleeding Controlled with Pressure -Treatment Response Procedure Tolerated Well -Offloading Yes -Type of Offloading Surgical Shoe -Debridement - Subq, 1st 20sq cm Yes #7 right heel -Time 12:02 -Correct Patient Yes -Correct Side, Site, Position Yes -Correct Procedure Yes -Procedure Performed Yes -Type of Procedure Debridement -Clinical Debridement Subcutaneous -Tissue Removed Subcutaneous -Post Debridement (cm) - Length 3.1 -Post Debridement (cm) - Width 5.1 -Post Debridement (cm) - Depth 0.1 -Total Square (Post) (cm) 15.81 -Area of Debridement (cm) - Length 3.1 -Area of Debridement (cm) - Width 5.1 -Total Square (Area) (cm) 15.81 -Tunneling No -Undermining/Tunneling No -Circular Undermining No -Wound/Ulcer Outcome Not Healed -Ulcer Cleansing Rinsed/ Irrigated with Saline -Foul Odor after Cleansing No -Bioengineered Tissue Yes -Type of Bioengineered Tissue Epifix Mesh -Expiration Date 07/30/27 -Product Lot Number [id number] -Percent Used 100 -Lot number of Saline Used [id number] -Bleeding Controlled with Pressure -Treatment Response Procedure Tolerated Well -Offloading Yes -Type of Offloading Surgical Shoe -Assistive Device(s) Wheelchair -Debridement - Subq, 1st 20sq cm No -Apply Skin Sub - 1st 25 sq cm - Feet 1 -Epifix Mesh (per sq cm) 11 Pain Scale: 0-10 Numeric Is Patient Pain Free? Yes Assessment/Plan Assessment/Plan (1) Non-pressure chronic ulcer of other part of right foot with fat layer exposed: CODE(S): L97.512 - Non-pressure chronic ulcer of other part of right foot with fat layer exposed PLAN: Exam performed. Arterial studies reviewed. We will hold off vascular consult at this time. Bilateral foot wounds appear to be well demarcated and stable today with granular bases upon debridement. Left lateral TMA and plantar right heel wound was excisionally debrided down to including level subcutaneous tissue of all nonviable tissue using a 5 mm dermal curette without incident. Hemostasis obtained with light compression. Patient tolerated procedure well no anesthesia due to neuropathy.. Postdebridement measurements document nursing notes. An epi fix graft 11 billing units was applied to the plantar left right heel and lateral left TMA site entire graft was used no waste this was secured with adhesive prep overlying Adaptic and quarter inch Steri-Strips to bilateral feet. Overlying dry sterile dressing to wick away any drainage from the site were applied as well. Patient should remain nonweightbearing to bilateral lower extremity and follow-up in 1 week. (2) Peripheral vascular disease, unspecified: CODE(S): I73.9 - Peripheral vascular disease, unspecified
[2022-11-15 11:06] VITALS: BP 189/83; PULSE 67; RESP 16; TEMP 36.4; BMI 24.0
--- NOTE | 2022-11-15 12:06 | PCM.WC.PN ---
History of Present Illness Date of Service: 11/15/22 Chief Complaint: Right posterior heel ulceration History of Wound: 67-year-old female recently discharged from the hospital presents today receiving linezolid orally for a right heel wound. Patient has new onset blister to left foot uncertain how. She states that she does not bear weight to the site at all. States that she does not remember hitting the area. She states that she sleeps on her back with offloading boots at all times and does not sleep on her left side. She denies constitutional's at this time denies any pain is no other complaints. Objective Data Objective Data Vital Signs: Vital Signs Temp Pulse Resp BP O2 Del Method 97.5 F L 67 16 189/83 H Room Air 11/15/22 11:06 11/15/22 11:06 11/15/22 11:06 11/15/22 11:06 11/15/22 11:06 Oxygen Delivery Method Room Air Weight: 63.503 kg Body Mass Index (BMI) 24.0 Physical Exam Narrative Patient alert oriented person place time. Neurovascular status unchanged from previous evaluation in the hospital. Full-thickness wound noted to the plantar heel on the right lower extremity. Resolved erythema edema. Minimal drainage to site. Granular base with small amounts of fibrotic tissue noted. Pre and post debridement measurements document nursing notes. No deep probing undermining or overt signs of acute infection. Full-thickness wound to the left TMA site. No signs of infection or additional tissue injury. Small fiber granular base. TMA noted to the left lower extremity. No signs of DVT. Debridement Note Debridement Note Post-Debridement Measurements and Additional Note: Post-Debridement Measurements/Treatment - Nurse 1 - General Ulcer Assessment Start: 11/08/22 11:16 Freq: Status: Active Protocol: LEO.VENKATAEXGrace Activity Type Activity Date Activity User E-sign Co-sign Detail Recorded Client Recorded Date Recorded By Document 11/08/22 11:16 [id number] 11/08/22 11:29 MW Document 11/15/22 11:06 [facility] [id number] 11/15/22 11:24 BMF 11/08/22 11/15/22 11:16 11:06 - Today's Visit Information Type of service Follow-up Visit Follow-up Visit (Physician/ACCOUNTS PAYABLE ASSOCIATE (Physician/ACCOUNTS PAYABLE ASSOCIATE ) ) Arrival Mode Wheelchair Wheelchair Transfer Assistance Manual Other Transfer Assist (Other) 1 Accompanied by self Patient Identification Verified (Name & Yes Yes ) Patient Requires Transmission-Based No No Precautions Safety Precautions Fall Prevention Height and Weight Body Mass Index (BMI) 24.0 24.0 BMI Classification Normal Normal Vital Signs Temperature (97.8 F-99.1 F) 95.8 F L 97.5 F L Temperature Source Temporal Temporal Pulse Rate (60-100) 64 67 Pulse Location Monitor Monitor Respiratory Rate (12-18) 16 16 Respiratory rate source Observation Observation Oxygen Delivery Method Room Air Room Air Blood Pressure (90/60-120/80) 155/63 H 189/83 H Blood Pressure Mean (mm Hg) 93 118 Source Monitor Monitor Position Sitting Sitting Blood Pressure Location Right Arm Right Arm History Since Last Visit- (Skip if this is Patient's initial visit) Have you changed medications since your No No last visit? Any new allergies or adverse reactions No No Had a fall/change in ADL's that may No No increase risk of falls Signs or symptoms of abuse and/or No No neglect since last visit Have you been in the hospital since your No No last visit? Has dressing in place as prescribed Yes Yes Has compression in place as prescribed Yes N/A Has offloadiing in place as prescribed N/A Yes Experienced any changes in pain level or No No management Left Footwear Removable Cast Surgical Shoe Walker/Walking with pressure Boot relief insole Right Footwear Other Footwear Other Footwear (Comment) (Comment) Other Footwear right heel R HEEL BOOT protector boot Pain Scale: 0-10 Numeric Is Patient Pain Free? Yes Yes WC - Nurse 1 - General Ulcer Measurement Start: 11/08/22 11:16 Freq: Status: Active Protocol: Activity Type Activity Date Activity User E-sign Co-sign Detail Recorded Client Recorded Date Recorded By Document 11/08/22 11:16 [id number] 11/08/22 11:29 Document 11/15/22 11:06 [facility] [id number] 11/15/22 11:24 [facility] 11/08/22 11/15/22 11:16 11:06 Wound Center Nurse 1 8-left lateral foot -Combined with other wound No No -Current Size (cm) - Length 3.0 3 -Current Size (cm) - Width 0.9 1 -Current Size (cm) - Depth 0.1 0.1 -Total Square Cm 2.70 3 -Date of Last Picture (Recall this 11/08/22 11/15/22 field) -Photo Taken Yes Yes -Epithelialization None Present Small 1-33% -Tunneling No No -Undermining/Tunneling No No -Circular Undermining No No -Exudate Amt Medium Medium -Exudate Type Serosanguineous Serosanguineous -Wound Margin Flat & Intact Distinct, Outline Attached -Granulation Amt Large (67-100%) Large (67-100%) -Granulation Quality N/A,[place] Red -Slough/Fibrin Yes -Necrosis Amt Small (1-33%) Small (1-33%) -Necrotic Tissue Type Adherent Slough Adherent Slough -Structure Exposed N/A -Texture (Margy-wound Skin Appearance) Assessed, Assessed, Scarring Scarring -Moisture (Margy-wound Skin Appearance) No Abnormality, Assessed, Assessed Maceration -Color (Margy-wound Skin Appearance) Assessed Assessed -Temperature (Margy-wound Skin No Abnormality No Abnormality Appearance) (Pt Warm) (Pt Warm) -Tenderness on Palpation (Margy-wound No No Skin Appearance) -Ulcer Cleansing Rinsed/ Soap and Water Irrigated with Saline -Foul Odor after Cleansing No No -Anesthetic Used 5% Lidocaine 5% Lidocaine Gel Gel #7 right heel -Combined with other wound No No -Current Size (cm) - Length 3.0 2.9 -Current Size (cm) - Width 5.0 3.7 -Current Size (cm) - Depth 0.1 0.1 -Total Square Cm 15.00 10.73 -Date of Last Picture (Recall this 11/08/22 11/15/22 field) -Photo Taken Yes Yes -Epithelialization None Present Small 1-33% -Tunneling No No -Undermining/Tunneling No No -Circular Undermining No No -Exudate Amt Medium Medium -Exudate Type Serosanguineous Serosanguineous -Wound Margin Flat & Intact Distinct, Outline Attached -Granulation Amt Large (67-100%) Large (67-100%) -Granulation Quality [place] Red -Slough/Fibrin Yes Yes -Necrosis Amt Small (1-33%) Small (1-33%) -Necrotic Tissue Type Adherent Slough Adherent Slough -Structure Exposed N/A -Texture (Margy-wound Skin Appearance) Assessed,Callus Assessed, ,Scarring Scarring -Moisture (Margy-wound Skin Appearance) Assessed,Dry/ Assessed, Scaly Maceration -Color (Margy-wound Skin Appearance) No Abnormality, Assessed Assessed -Temperature (Margy-wound Skin No Abnormality No Abnormality Appearance) (Pt Warm) (Pt Warm) -Tenderness on Palpation (Margy-wound No No Skin Appearance) -Ulcer Cleansing Rinsed/ Soap and Water Irrigated with Saline -Foul Odor after Cleansing No No -Anesthetic Used 5% Lidocaine 5% Lidocaine Gel Gel Lower Limb Edema Present No Right Calf (cm) 31.8 34.6 Right Ankle (cm) 21.1 21.7 Left Calf (cm) 34.5 31.8 Left Ankle (cm) 21.0 21.4 WC - Nurse 2 - General Ulcer CM Notes Start: 11/08/22 11:16 Freq: Status: Active Protocol: Activity Type Activity Date Activity User E-sign Co-sign Detail Recorded Client Recorded Date Recorded By Document 11/08/22 11:54 [id number] 11/08/22 12:04 Document 11/15/22 11:33 [id number] 11/15/22 11:43 11/08/22 11/15/22 11:54 11:33 Wound Center Nurse 2 8-left lateral foot -Time 12:01 11:40 -Correct Patient Yes Yes -Correct Side, Site, Position Yes Yes -Correct Procedure Yes Yes -Procedure Performed Yes Yes -Type of Procedure Debridement Debridement -Clinical Debridement Subcutaneous Subcutaneous -Tissue Removed Subcutaneous Subcutaneous -Post Debridement (cm) - Length 3.1 3.1 -Post Debridement (cm) - Width 1 1 -Post Debridement (cm) - Depth 0.1 0.1 -Total Square (Post) (cm) 3.1 3.1 -Area of Debridement (cm) - Length 3.1 3.1 -Area of Debridement (cm) - Width 1 1 -Total Square (Area) (cm) 3.1 3.1 -Tunneling No No -Undermining/Tunneling No No -Circular Undermining No No -Wound/Ulcer Outcome Not Healed Not Healed -Ulcer Cleansing Rinsed/ Rinsed/ Irrigated with Irrigated with Saline Saline -Foul Odor after Cleansing No No -Bioengineered Tissue No No -Bleeding Controlled with Pressure Pressure -Treatment Response Procedure Procedure Tolerated Well Tolerated Well -Offloading Yes Yes -Type of Offloading Surgical Shoe Surgical Shoe -Debridement - Subq, 1st 20sq cm Yes Yes #7 right heel -Time 12:02 11:41 -Correct Patient Yes Yes -Correct Side, Site, Position Yes Yes -Correct Procedure Yes Yes -Procedure Performed Yes Yes -Type of Procedure Debridement Debridement -Clinical Debridement Subcutaneous Subcutaneous -Tissue Removed Subcutaneous Subcutaneous -Post Debridement (cm) - Length 3.1 3.0 -Post Debridement (cm) - Width 5.1 3.7 -Post Debridement (cm) - Depth 0.1 0.1 -Total Square (Post) (cm) 15.81 11.10 -Area of Debridement (cm) - Length 3.1 3.0 -Area of Debridement (cm) - Width 5.1 3.7 -Total Square (Area) (cm) 15.81 11.10 -Tunneling No No -Undermining/Tunneling No No -Circular Undermining No No -Wound/Ulcer Outcome Not Healed Not Healed -Ulcer Cleansing Rinsed/ Rinsed/ Irrigated with Irrigated with Saline Saline -Foul Odor after Cleansing No No -Bioengineered Tissue Yes Yes -Type of Bioengineered Tissue Epifix Mesh Epifix Mesh -Expiration Date 07/30/27 07/30/27 -Product Lot Number [id number] -Percent Used 100 100 -Lot number of Saline Used [id number] -Bleeding Controlled with Pressure Pressure -Treatment Response Procedure Procedure Tolerated Well Tolerated Well -Offloading Yes Yes -Type of Offloading Surgical Shoe Surgical Shoe -Assistive Device(s) Wheelchair Wheelchair -Debridement - Subq, 1st 20sq cm No No -Apply Skin Sub - 1st 25 sq cm - Feet 1 1 -Epifix Mesh (per sq cm) 11 11 Pain Scale: 0-10 Numeric Is Patient Pain Free? Yes Yes WC - Nurse 3 - General Ulcer D/C NN Start: 11/08/22 11:16 Freq: Status: Active Protocol: Activity Type Activity Date Activity User E-sign Co-sign Detail Recorded Client Recorded Date Recorded By Document 11/08/22 12:17 [facility] [id number] 11/08/22 12:18 BMF Document 11/15/22 11:51 DL [id number] 11/15/22 11:53 DL 11/08/22 11/15/22 12:17 11:51 Wound Care Nurse 3 8-left lateral foot -Foul Odor after Cleansing No -Other Dressing EPIMESH Epifix -Primary Dressing Covered/Secured with Dry Gauze & Dry Gauze & Roll Gauze, Roll Gauze, Secured with Secured with Tape Tape -Other Covering ABD #7 right heel -Foul Odor after Cleansing No -Other Dressing EPIMESH Epifix -Primary Dressing Covered/Secured with Dry Gauze & Dry Gauze & Roll Gauze, Roll Gauze, Secured with Secured with Tape Tape -Other Covering HEEL HAT BLE -Tubular Bandage Single Layer Single Layer -Size of Tubigrip Used Size D Size D -Size D ($) 2 1 Treatment Response Procedure Procedure Tolerated Well Tolerated Well Pain Scale: 0-10 Numeric Is Patient Pain Free? Yes Yes WC - Visit Discharge Discharge Condition Stable Ambulatory Status Wheelchair Transportation Private Auto Facility Type Home Health Orders Sent Yes Assessment/Plan Assessment/Plan (1) Non-pressure chronic ulcer of other part of right foot with fat layer exposed: CODE(S): L97.512 - Non-pressure chronic ulcer of other part of right foot with fat layer exposed PLAN: Exam performed. Arterial studies reviewed. We will hold off vascular consult at this time. Bilateral foot wounds appear to be well demarcated and stable today with granular bases upon debridement. Left lateral TMA and plantar right heel wound was excisionally debrided down to including level subcutaneous tissue of all nonviable tissue using a 5 mm dermal curette without incident. Hemostasis obtained with light compression. Patient tolerated procedure well no anesthesia due to neuropathy.. Postdebridement measurements document nursing notes. An epi fix graft 11 billing units was applied to the plantar left right heel and lateral left TMA site entire graft was used no waste this was secured with adhesive prep overlying Adaptic and quarter inch Steri-Strips to bilateral feet. Overlying dry sterile dressing to wick away any drainage from the site were applied as well. Patient should remain nonweightbearing to bilateral lower extremity and follow-up in 1 week. (2) Peripheral vascular disease, unspecified: CODE(S): I73.9 - Peripheral vascular disease, unspecified
== END 2022-11-15 16:14 | disposition home or self-care (01) ==
LOC: WC 11:00
PROVIDERS: PCP Family Medicine; Referring Provider Internal Medicine; Visit Provider Podiatrist
DX: I73.9 Peripheral vascular disease, unspecified (principal); L97.512 Non-pressure chronic ulcer of other part of right foot with fat layer exposed; L08.9 Local infection of the skin and subcutaneous tissue, unspecified
CPT/HCPCS: 11042; 15275; Q4186

== ENCOUNTER → 2022-12-27 | Outpatient (CLI) | payer MEDICARE, OTHER, SELFPAY ==
[2022-12-27 13:27] LABS: Absolute Neutrophil Count 6.5 X10^3/uL (2.0-7.7); Basophil# 0.12 X10^3/uL; Basophil% 1.1 % (0-1); Eosinophil# 0.83 X10^3/uL; Eosinophils% 7.5 % (0-5); Hematocrit 31.8 % (37-47); Hemoglobin 10.2 g/dL (12.0-15.0); Lymphocyte % 26.1 % (19-41); Mean Corp Hgb Conc 32.1 g/dL (32-36); Mean Corpuscular Hgb 31.7 pg (27.0-32.0); Mean Corpuscular Volume 98.8 fL (81-99); Mean Platelet Vol. 10.5 fl (6.2-12.0); Monocyte# 0.75 X10^3/uL; Monocyte% 6.7 % (0-10); NRBC Flagged by Analyzer 0 % (0-5); Neutrophil % 58.3 % (47-70); Platelet Count 252 K/mm3 (150-450); RBC Distribution Width CV 13.4 % (11.6-14.6); RBC Distribution Width SD 48.6 fl (35.1-43.9); Red Blood Count 3.22 M/mm3 (4.2-5.4); White Blood Count 11.1 K/mm3 (4.4-11.0)
[2022-12-27 13:29] LABS: Erythrocyte Sedimentation Rate 55 mm/hr (0-30)
--- NOTE | 2022-12-27 13:35 | VDLE_ITS ---
Reason For Study: pain RIGHT LEFT CFV is compressible, spontaneous, phasic, CFV is compressible, spontaneous, phasic, competent and demonstrates normal competent, and demonstrates normal augmentation. augmentation. FV is dilated and noncompressible with Prox and mid FV are compressible. Dist FV is decreased flow consistent with acute DVT. partially compressible with bright POP V is partially compressible with intraluminal echoes consistent with chronic hypoechoic echoes and decreased flow DVT. consistent with acute DVT POP V is partially compressible with bright T/P Trunk is partially compressible with intraluminal echoes consistent with chronic hypoechoic echoes consistent with acute DVT. DVT. PTV is compressible. T/P Trunk is partially compressible with RT PerV is compressible. bright intraluminal echoes consistent with GSV is normal. chronic DVT. Procedure PTV is compressible. This is a venous duplex using B-mode, color LT PerV is compressible. flow and spectral Doppler. GSV is normal. Exam performed in department. The exam was diagnostic. A preliminary report was called and/or faxed to Dr. Amador. Pt to go to ED. VL/Venous Duplex US - [facility] Extrem Interpretation Summary Acute deep venous thrombosis right femoral, popliteal, tibioperoneal trunk Chronic deep venous thrombotic changes left distal femoral, popliteal, tibioper holden trunk Patent and compressible bilateral great saphenous veins Ordering Physician: Juan Amador Performed By: Shamar Landry RVGrace
[2022-12-27 13:48] LABS: Hemoglobin A1c 5.3 % (3.8-5.6)
[2022-12-27 13:55] LABS: ALB/GLOB Ratio 0.5 RATIO (0.9-2.4); AST(SGOT) 20 U/L (15-37); Alanine Aminotransfer ALT/SGPT 15 U/L (13-56); Albumin, Serum 2.7 g/dL (3.2-5.0); Alkaline Phosphatase 106 U/L (45-117); Anion Gap 7 (5-15); BUN 21 mg/dL (7-18); BUN/Creat Ratio 15.6 RATIO (10-20); Calcium,Total 8.6 mg/dL (8.5-10.1); Chloride 110 mmol/L (98-107); Creatinine, Serum 1.35 mg/dL (0.55-1.02); EST Glomerular Filtration Rate 42 mL/min (>60); Est Glom Filt Rate - Afr Amer 50 mL/min (>60); Globulin 5.3 g/dL (2.2-4.2); Glucose 108 mg/dL (74-106); Potassium 4.5 mmol/L (3.5-5.1); Sodium Level 136 mmol/L (136-145)
== END | disposition home or self-care (01) ==
PROVIDERS: PCP Family Medicine; Referring Provider Podiatrist; Visit Provider Podiatrist
DX: R22.43 Localized swelling, mass and lump, lower limb, bilateral (principal); L97.312 Non-pressure chronic ulcer of right ankle with fat layer exposed; L97.512 Non-pressure chronic ulcer of other part of right foot with fat layer exposed; E11.9 Type 2 diabetes mellitus without complications; M79.604 Pain in right leg; M79.605 Pain in left leg; R60.0 Localized edema
CPT/HCPCS: 36415; 80053; 83036; 85025; 85652; 86140; 87070; 87077; 87186; 87205; 93970

== ENCOUNTER 2022-12-31 00:51 | Inpatient (IN) | payer MEDICARE, OTHER, SELFPAY ==
[2022-12-31] VITALS (12 sets, daily range): BP systolic 114–167; BP diastolic 54–105; PULSE 58–74; RESP 15–19; TEMP 36.1–37.4; O2SAT 95–98; BMI 25.8; BMI 25.2
--- NOTE | 2022-12-31 01:12 | EKG12_ITS ---
Test Reason : DYSRHYTHMIA Blood Pressure : / mmHG Vent. Rate : 068 BPM Atrial Rate : 068 BPM P-R Int : 146 ms QRS Dur : 090 ms QT Int : 394 ms P-R-T Axes : 047 -24 043 degrees QTc Int : 418 ms Normal sinus rhythm Normal ECG Confirmed by SAMMY BERRIOS, YOMI ([id number]), international editorial producer GEE YEBOAH ([id number]) on 01/02/2023 11:24:46 AM Referred By: VINNY Confirmed By:YOMI CHRISTIANSON MD
--- NOTE | 2022-12-31 01:12 | CT_ITS ---
EXAM: CT ANGIOGRAPHY CHEST WITHOUT AND WITH INTRAVENOUS CONTRAST CLINICAL INDICATION: shortness of breath, history of DVT TECHNIQUE: Helically acquired angiography images were obtained of the chest without and with intravenous contrast. This CT exam was performed using one or more of the following dose reduction techniques: automated exposure control, adjustment of the mA and/or kV according to patient size, and/or use of iterative reconstruction technique. This report was created using [employer] report generation technology. MIP reconstructed images were created and reviewed. CONTRAST: IV 100mL [id number]-[id number] COMPARISON: None. FINDINGS: PULMONARY ARTERIES: Unremarkable. Normal in caliber. No evidence of pulmonary embolism. AORTA: Unremarkable. Normal in caliber. No evidence of dissection. GREAT VESSELS OF AORTIC ARCH: Unremarkable. Normal in caliber. No evidence of dissection. LUNGS AND PLEURAL SPACES: Some bronchial wall thickening in the right lower lobe especially. No mass. No pleural effusion or thickening. No pneumothorax. HEART: Unremarkable. Heart size is normal. No pericardial effusion. No signs of right heart strain, ratio of right ventricle to left ventricle measures less than 1. MEDIASTINUM: Unremarkable. No mediastinal or hilar adenopathy. Esophagus is unremarkable. No hiatal hernia. THYROID: Unremarkable. No thyroid lesions. BONES/JOINTS: Degenerative changes of the spine. No suspicious lytic or blastic abnormality. CT/CTA Chest W/WO Contrast IMPRESSION: 1. Some bronchial wall thickening in the right lower lobe especially. This may indicate an infectious bronchiolitis or reactive airway disease. 2. No evidence of pulmonary embolism. Electronically Signed: Roberto Nicholson MD at 3:03 [facility] ,
--- NOTE | 2022-12-31 01:14 | EDS_ITS ---
HPI History of Present Illness Chief Complaint: Shortness of Breath Narrative Narrative: 67-year-old female, past medical history of osteomyelitis of left foot, status post partial amputation remotely, states that she had leg pain and swelling of her right leg on Monday, 4 days ago. She was seen by her chief mechanical officer, Dr. Amador, who was concerned about DVT reportedly. She states that she went to vascular study, and was noted to have bilateral, multiple DVTs. She states that she was here last year, diagnosed with a DVT, and put on Eliquis, but could not tolerate it because of multiple nosebleeds. She states that she had been switched to Xarelto, and also had nosebleeds, so she was put on a baby aspirin for her DVT. Che her to she has developed shortness of breath. States she has mild chest pressure with that. She states that after her vascular study, the install technician wanted to bring her to the emergency department for evaluation of her bilateral DVTs. However, patient states that there was a 4-hour wait with people waiting in the hallway. She decided not to stay, and went home. She called her primary care provider who is going to call her in a prescription for a blood thinner, but she states that she has an intolerance to them because of the bleeding. Additionally, she states that in order to be put on Coumadin, she would need to take Lovenox, but she has an allergy to that medication. She gets a rash. She presents with her family friend because of the shortness of breath with history of DVTs and she is not currently on a blood thinner. 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 Ulcer of amputation stump of foot Wound of left foot Home Medications albuterol sulfate 90 mcg/actuation aerosol inhaler (Ventolin HFA) 1 puff inhalation Q4H PRN PRN SHORTNESS OF BREATH #0 grams 03/25/21 [Rx Last Taken Unknown] arginine 7 gram-glutam 7 gram-CaHMB 1.5 [id number]-min oral pwd pkt (Alfredo (with collagen)) 1 packet PO BIDCM #0 ea 03/25/21 [Rx Last Taken 08/28/22] menthol 0.44 %-zinc oxide 20.6 % topical ointment (Calmoseptine) 1 applic topical BID #0 grams 03/25/21 [Rx Last Taken 08/30/21] nystatin 100,000 unit/gram topical powder (Nyamyc) 1 applic topical TID #0 grams 03/25/21 [Rx Last Taken 08/30/21] ondansetron 4 mg disintegrating tablet 4 mg PO Q6H PRN PRN NAUSEA #0 tabs 03/25/21 [Rx Last Taken Unknown] tramadol 50 mg tablet 50 mg PO Q6H PRN Pain 05/18/21 [History Last Taken Unknown] acidophilus 25 million cell-pectin, citrus 100 mg tablet 1 tab PO BID probiotic 08/31/21 [History Last Taken 08/28/22] cholecalciferol (vitamin D3) 50 mcg (2,000 unit) capsule 2,000 unit PO DAILY supplement 08/31/21 [History Last Taken 08/28/22] pantoprazole 40 mg tablet,delayed release 40 mg PO BIDCM #60 tabs 09/04/21 [Rx Last Taken 08/28/22] hydrocortisone 2.5 % topical cream with perineal applicator 1 applic NE QD-BID PRN Fissure #30 grams 09/07/21 [Rx Last Taken Unknown] Db 7 2 cap PO.IVFORM Q8 blood sugar 12/16/21 [History Last Taken 08/28/22] budesonide 3 mg capsule,delayed,extended release 9 mg PO DAILY #90 ea 03/08/22 [Rx Last Taken 08/28/22] folic acid 1 mg tablet 1 mg PO DAILY #30 tabs 03/08/22 [Rx Last Taken 08/28/22] sulfasalazine 500 mg tablet 500 mg PO BID stomach 08/28/22 [History Last Taken 08/28/22] linezolid 600 mg tablet 600 mg PO BID 7 days #14 tabs 08/31/22 [Rx Last Taken Unknown] vancomycin 25 mg/mL oral solution (Firvanq) 125 mg (5 mL) PO DAILY 10 days #50 mL 08/31/22 [Rx Last Taken Unknown] metoclopramide HCl 5 mg tablet (Reglan) 5 mg PO BID #60 tabs 11/18/22 [Rx Last Taken Unknown] ascorbic acid (vitamin C) 1,000 mg capsule 1 g PO DAILY 12/31/22 [History Last Taken Unknown] benzocaine 10 % mucosal gel 1 applic mucous membrane QHS 12/31/22 [History Last Taken Unknown] chromium 1,000 mcg tablet 100 mcg PO DAILY 12/31/22 [History Last Taken Unknown] cyclobenzaprine 5 mg tablet 5 mg PO PRN PRN Muscle Spasms 12/31/22 [History Last Taken Unknown] Allergy/AdvReac Type Severity Reaction Status Date / Time cefprozil Allergy Shortness Verified 12/31/22 00:58 of breath ceftriaxone Allergy Hives Verified 12/31/22 00:58 clindamycin Allergy Rash Verified 12/31/22 00:58 enalapril Allergy Other Verified 12/31/22 00:58 enoxaparin Allergy Rash Verified 12/31/22 00:58 heparin Allergy Rash Verified 12/31/22 00:58 levalbuterol Allergy Other Verified 12/31/22 00:58 morphine Allergy Shortness Verified 12/31/22 00:58 of breath Penicillins Allergy Anaphylaxis Verified 12/31/22 00:58 shellfish derived Allergy Anaphylaxis Verified 12/31/22 00:58 valsartan Allergy Other Verified 12/31/22 00:58 vancomycin Allergy Rash Verified 12/31/22 00:58 Family History Mother Cancer Lung CA w/ tobacco use history. Diabetes COPD (chronic obstructive pulmonary disease) Father Cancer Lung CA w/ tobacco use history. Diabetes COPD (chronic obstructive pulmonary disease) Heart disease Surgical History History of appendectomy History of eye surgery History of foot surgery History of lumpectomy History of tubal ligation Status post transmetatarsal amputation of left foot Tubal ligation status Social History household members: none Smoking Status: Never smoker alcohol intake: never substance use type: does not use ROS ROS ED ROS Narrative Constitutional: No fever, no chills. HEENT: No sore throat. No neck pain. No loss of vision. No rhinorrhea. Cardiovascular: Mild chest pressure/chest pain. No palpitations. No pedal edema. Respiratory: Occasional cough, positive shortness of breath. Abdominal: No abdominal pain. No nausea. No vomiting. Genitourinary: No dysuria. No hematuria. Musculoskeletal: No myalgias. No arthralgias. Neurologic: No headaches. No dizziness. No lightheadedness. Skin: No rash. No change in color. Psychiatric: No depression. No anxiety. EXAM Physical Exam Narrative Exam Narrative: Afebrile. Vital signs noted. HEENT: Normocephalic. Atraumatic. PERRL, EOMI. Neck soft and supple. No point tenderness or step off. Cardiovascular: Regular rate and rhythm. No murmurs, rubs, or gallops appreciated. Respiratory: No tachypnea. Lungs clear to auscultation bilaterally. Gastrointestinal: Abdomen soft, nontender, with normoactive bowel sounds. No rebound or guarding. Neurological: Awake. Alert. Nonfocal, nonlateralizing. Skin: No rash. Normal color. No pallor. Musculoskeletal: No pedal edema. Full range of motion extremities. Partial amputation of left foot. Const Vital Signs: 12/31/22 00:52 12/31/22 00:52 12/31/22 03:02 Temperature 97.9 F Temperature Source Temporal Pulse Rate 71 74 Respiratory Rate 19 H 17 Respiratory Effort Short of Breath Respiratory Depth Normal Respiratory Pattern Normal Blood Pressure 167/77 H 119/105 H Blood Pressure Mean 107 109 Pulse Ox 96 96 Oxygen Delivery Method Room Air Room Air Room Air MDM MDM MDM Narrative Medical decision making narrative: Pulse ox is 96% on room air. She is not tachycardic. 90 reviewed her outpatient records to look to see if the vascular study was obtainable. Concern is that she is not on a blood thinner currently. CTA of the chest will be obtained along with laboratory work including CBC, BMP, troponin, and she will be bolused IV fluids. EKG will also be obtained. I did find that on her Doppler study of the bilateral lower extremities performed on 27 December of this year, that she has chronic left DVT, but acute DVT on the right involving the femoral, popliteal, and tibial peroneal trunk. EKG was obtained and interpreted by myself which demonstrates normal sinus rhythm at 68 bpm without ectopy or acute ST changes. No STEMI. I reviewed her laboratory work, she has slightly elevated white count of 13.2, hemoglobin 10.6 and stable. Platelet count normal at 325. INR 1.2 with a PTT of 31.6. Looking at her BMP, chloride slightly elevated at 111 with a normal sodium of 138, potassium 4.2. She has a creatinine of 1.25 which is slightly elevated and acute kidney injury for her as she had normal values in the past except for 1 slightly elevated recently. BUN normal at 16. Glucose elevated appropriately at 149 with an anion gap normal at 8. High-sensitivity troponin is 80. She was administered aspirin 324 mg orally. While this may be slight elevation secondary to mild renal insufficiency, she has been having chest pain since yesterday afternoon. She states that she has allergies to enoxaparin and heparin where she has problems breathing along with a rash. Hence, I am unsure how she could be bridged to Coumadin if she cannot tolerate any of the heparins. In discussion with the patient, the Eliquis and the Xarelto for more problems with epistaxis that is an allergic reaction. Given her elevated troponin, I will discuss the patient with Dr. Machado on-call for cardiology as she was having chest pain and has an elevated troponin. In discussion with Dr. Machado, he does not suggest any other antiplatelets. As she has intolerances to heparin, it was thought that these medications could be withheld. However, he agrees that the anticoagulation for her acute DVT would need to be addressed. I then discussed patient with Dr. Aneesh Garcia with vascular surgery. He suggested Arixtra as an alternative anticoagulant. I discussed the patient with Aneesh, the pharmacist on the inpatient side, who states that that is unavailable on the nonformulary medications. Additionally, he did note that Fragmin would default to Lovenox, which she states she cannot tolerate. Dr. Garcia also suggested that she should be started on one of the newer agents, she could try Pradaxa as an alternative, but if she did have Eliquis or Xarelto and had nosebleeds, that he might be available this weekend to put an IVC filter, but it was felt that she needed anticoagulation because she has not been anticoagulated for the last 4 days. I did review the CTA of the chest which showed bronchial wall thickening in the right lower lobe but no consolidation, no evidence of PE. The patient was agreeable to Eliquis, so she was administered 10 mg orally as a starting/loading dose. I then discussed patient with Dr. Vega for admission to the PCU. Patient is in stable condition. Lab Data Attestation: I reviewed the patient's lab results. Labs: Laboratory Results - last 24 hr 12/31/22 12/31/22 12/31/22 01:20 01:20 01:20 WBC 13.2 H RBC 3.44 L Hgb 10.6 L Hct 33.7 L MCV 98.0 MCH 30.8 MCHC 31.5 L RDW Std Deviation 47.9 H RDW Coeff of Xin 13.4 Plt Count 325 MPV 10.4 Immature Gran % (Auto) 0.400 Neut % (Auto) 61.3 Lymph % (Auto) 24.5 [place] % (Auto) 5.9 Eos % (Auto) 7.0 H Baso % (Auto) 0.9 Absolute Neuts (auto) 8.1 H Absolute Lymphs (auto) 3.24 Nucleated RBC % 0 PT 14.9 INR 1.2 APTT 31.6 Sodium 138 Potassium 4.2 Chloride 111 H Carbon Dioxide 19.0 L Anion Gap 8 BUN 16 Creatinine 1.25 H Estim Creat Clear Calc 38.23 Est GFR (MDRD) Af Amer 55 L Est GFR (MDRD) Non-Af 45 L BUN/Creatinine Ratio 12.8 Glucose 149 H Calcium 8.8 Troponin I High Sens 80 H Radiography Diagnostic Testing: Clinical Impression(s) from Imaging Studies Chest CTA 12/31/22 01:12 IMPRESSION: 1. Some bronchial wall thickening in the right lower lobe especially. This may indicate an infectious bronchiolitis or reactive airway disease. 2. No evidence of pulmonary embolism. Electronically Signed: Roberto Nicholson MD at 3:03 EST , Critical Care Time Critical Care Time: Yes Critical care time (excluding procedures): 30-74 minutes (21 minutes), Including time spent:, Discussing w/Patient &/or Family/Assembler [employer], Discussing w/Consultants, Arranging Admission or Transfer and Performing Direct Patient Care at Bedside Discharge Plan Dx/Rx/DC Orders Clinical Impression: Chest pain, Acute kidney injury, Acute deep vein thrombosis of right lower extremity, Chronic deep vein thrombosis (DVT) of left lower extremity, Elevated troponin, SOB (shortness of breath) Disposition Disposition: Acute Care [facility]
[2022-12-31] MEDS: 0.9% Normal Saline 1,000 ML 999 ML IV (01:25)
[2022-12-31 01:26] LABS: Absolute Lymphocyte Count 3.24 X10^3/uL (0.83-4.51); Absolute Neutrophil Count 8.1 X10^3/uL (2.0-7.7); Basophil# 0.12 X10^3/uL; Basophil% 0.9 % (0-1); Eosinophil# 0.93 X10^3/uL; Hematocrit 33.7 % (37-47); Hemoglobin 10.6 g/dL (12.0-15.0); Lymphocyte # 3.24 X10^3/ul (0.83-4.51); Lymphocyte % 24.5 % (19-41); Mean Corp Hgb Conc 31.5 g/dL (32-36); Mean Corpuscular Hgb 30.8 pg (27.0-32.0); Mean Platelet Vol. 10.4 fl (6.2-12.0); Monocyte# 0.78 X10^3/uL; Monocyte% 5.9 % (0-10); NRBC Flagged by Analyzer 0 % (0-5); Neutrophil % 61.3 % (47-70); Platelet Count 325 K/mm3 (150-450); RBC Distribution Width CV 13.4 % (11.6-14.6); RBC Distribution Width SD 47.9 fl (35.1-43.9); Red Blood Count 3.44 M/mm3 (4.2-5.4); White Blood Count 13.2 K/mm3 (4.4-11.0)
[2022-12-31 01:45] LABS: Anion Gap 8 (5-15); BUN 16 mg/dL (7-18); BUN/Creat Ratio 12.8 RATIO (10-20); Calcium,Total 8.8 mg/dL (8.5-10.1); Chloride 111 mmol/L (98-107); Creatinine, Serum 1.25 mg/dL (0.55-1.02); EST Glomerular Filtration Rate 45 mL/min (>60); Est Glom Filt Rate - Afr Amer 55 mL/min (>60); Estimated Creatinine Clearance 38.23 ml/min; Glucose 149 mg/dL (74-106); Potassium 4.2 mmol/L (3.5-5.1); Sodium Level 138 mmol/L (136-145); Troponin-I HS 80 pg/mL (3.0-54.0)
[2022-12-31 02:03] LABS: International Normalized Ratio 1.2; Prothrombin Time (Protime)PT. 14.9 SECONDS (11.7-14.9)
[2022-12-31 02:04] LABS: Partial Thromboplast Time 31.6 Seconds (24.1-36.2)
[2022-12-31] MEDS: Aspirin 81 MG TAB.CHEW 324 MG PO (02:46)
[2022-12-31] MEDS: Acetaminophen 325 MG Tablet 650 MG PO (02:47)
[2022-12-31] MEDS: APIXABAN 5 MG TABLET 10 MG PO ×2 (04:23→17:34)
--- NOTE | 2022-12-31 04:30 | EKG12_ITS ---
Test Reason : CP ADMISSION Blood Pressure : / mmHG Vent. Rate : 069 BPM Atrial Rate : 069 BPM P-R Int : 186 ms QRS Dur : 098 ms QT Int : 410 ms P-R-T Axes : 066 -23 054 degrees QTc Int : 439 ms Normal sinus rhythm Normal ECG When compared with ECG of 31-DEC-2022 01:18, MANUAL COMPARISON REQUIRED, DATA IS UNCONFIRMED Confirmed by LANCE BERRIOS, ARTEMIO ([id number]), international editorial producer GEE YEBOAH ([id number]) on 01/03/2023 8:09:09 AM Referred By: Confirmed By:ARTEMIO LUCAS MD
--- NOTE | 2022-12-31 04:30 | PCM.HP.STD ---
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 The chest pain is nonradiating. She described chest pain as heaviness. The chest pain has been progressively getting worse. She reports that when she relaxes, raise her feet up and adjust the head of a hospital bed at home her chest pain improved. She reported her chest pain is aggravated with coughing. Of note 2 days before presentation patient began to cough. Also she reports posttussis emesis. She denies any shortness of breath. Venous Doppler on 12/27/2022 showed acute deep venous thrombosis of the right femoral, popliteal, and tibioperoneal trunk. It also showed chronic deep venous thrombotic changes in the left distal femoral, popliteal, tibioperoneal trunk. 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 Ulcer of amputation stump of foot Wound of left foot Home Medications albuterol sulfate 90 mcg/actuation aerosol inhaler (Ventolin HFA) 1 puff inhalation Q4H PRN PRN SHORTNESS OF BREATH #0 grams 03/25/21 [Rx Last Taken Unknown] arginine 7 gram-glutam 7 gram-CaHMB 1.5 [id number] oral pwd pkt (Alfredo (with collagen)) 1 packet PO BIDCM #0 ea 03/25/21 [Rx Last Taken 08/28/22] menthol 0.44 %-zinc oxide 20.6 % topical ointment (Calmoseptine) 1 applic topical BID #0 grams 03/25/21 [Rx Last Taken 08/30/21] nystatin 100,000 unit/gram topical powder (Nyamyc) 1 applic topical TID #0 grams 03/25/21 [Rx Last Taken 08/30/21] ondansetron 4 mg disintegrating tablet 4 mg PO Q6H PRN PRN NAUSEA #0 tabs 03/25/21 [Rx Last Taken Unknown] tramadol 50 mg tablet 50 mg PO Q6H PRN Pain 05/18/21 [History Last Taken Unknown] acidophilus 25 million cell-pectin, citrus 100 mg tablet 1 tab PO BID probiotic 08/31/21 [History Last Taken 08/28/22] cholecalciferol (vitamin D3) 50 mcg (2,000 unit) capsule 2,000 unit PO DAILY supplement 08/31/21 [History Last Taken 08/28/22] pantoprazole 40 mg tablet,delayed release 40 mg PO BIDCM #60 tabs 09/04/21 [Rx Last Taken 08/28/22] hydrocortisone 2.5 % topical cream with perineal applicator 1 applic CA QD-BID PRN Fissure #30 grams 09/07/21 [Rx Last Taken Unknown] Db 7 2 cap PO.IVFORM Q8 blood sugar 12/16/21 [History Last Taken 08/28/22] budesonide 3 mg capsule,delayed,extended release 9 mg PO DAILY #90 ea 03/08/22 [Rx Last Taken 08/28/22] folic acid 1 mg tablet 1 mg PO DAILY #30 tabs 03/08/22 [Rx Last Taken 08/28/22] sulfasalazine 500 mg tablet 500 mg PO BID stomach 08/28/22 [History Last Taken 08/28/22] linezolid 600 mg tablet 600 mg PO BID 7 days #14 tabs 08/31/22 [Rx Last Taken Unknown] vancomycin 25 mg/mL oral solution (Firvanq) 125 mg (5 mL) PO DAILY 10 days #50 mL 08/31/22 [Rx Last Taken Unknown] metoclopramide HCl 5 mg tablet (Reglan) 5 mg PO BID #60 tabs 11/18/22 [Rx Last Taken Unknown] ascorbic acid (vitamin C) 1,000 mg capsule 1 g PO DAILY 12/31/22 [History Last Taken Unknown] benzocaine 10 % mucosal gel 1 applic mucous membrane QHS 12/31/22 [History Last Taken Unknown] chromium 1,000 mcg tablet 100 mcg PO DAILY 12/31/22 [History Last Taken Unknown] cyclobenzaprine 5 mg tablet 5 mg PO PRN PRN Muscle Spasms 12/31/22 [History Last Taken Unknown] Allergy/AdvReac Type Severity Reaction Status Date / Time cefprozil Allergy Shortness Verified 12/31/22 00:58 of breath ceftriaxone Allergy Hives Verified 12/31/22 00:58 clindamycin Allergy Rash Verified 12/31/22 00:58 enalapril Allergy Other Verified 12/31/22 00:58 enoxaparin Allergy Rash Verified 12/31/22 00:58 heparin Allergy Rash Verified 12/31/22 00:58 levalbuterol Allergy Other Verified 12/31/22 00:58 morphine Allergy Shortness Verified 12/31/22 00:58 of breath Penicillins Allergy Anaphylaxis Verified 12/31/22 00:58 shellfish derived Allergy Anaphylaxis Verified 12/31/22 00:58 valsartan Allergy Other Verified 12/31/22 00:58 vancomycin Allergy Rash Verified 12/31/22 00:58 Family History Mother Cancer Lung CA w/ tobacco use history. Diabetes COPD (chronic obstructive pulmonary disease) Father Cancer Lung CA w/ tobacco use history. Diabetes COPD (chronic obstructive pulmonary disease) Heart disease Surgical History History of appendectomy History of eye surgery History of foot surgery History of lumpectomy History of tubal ligation Status post transmetatarsal amputation of left foot Tubal ligation status Social History household members: none Smoking Status: Never smoker alcohol intake: never substance use type: does not use ROS ROS Narrative Pertinent positives and pertinent negatives as noted in HPI. All other systems were reviewed and are negative Vital Signs Vital Signs Vital Signs: 12/31/22 00:52 12/31/22 00:52 12/31/22 03:02 Temperature 97.9 F Temperature Source Temporal Pulse Rate 71 74 Respiratory Rate 19 H 17 Respiratory Effort Short of Breath Respiratory Depth Normal Respiratory Pattern Normal Blood Pressure 167/77 H 119/105 H Blood Pressure Mean 107 109 Pulse Ox 96 96 Oxygen Delivery Method Room Air Room Air Room Air 12/31/22 04:25 Temperature 97.6 F L Temperature Source Oral Pulse Rate 73 Respiratory Rate 16 Respiratory Effort Respiratory Depth Respiratory Pattern Blood Pressure 114/54 L Blood Pressure Mean 74 Pulse Ox 96 Oxygen Delivery Method Weight Weight: 68.2 kg Body Mass Index (BMI) 25.8 Physical Exam Narrative Physical exam: General: Well-nourished, well-developed. Head: Normocephalic, atraumatic, no tenderness Eyes: Vision is grossly intact. EOMI ENT: Edentulous. No trauma, dry mucous membranes, no rhinorrhea Neck: Nontender, No thyromegaly. CVS: Regular rate and rhythm. S1-S2 present. No murmur, gallop or rub. Respiratory : clear to auscultation bilaterally, chest wall nontender, no wheezing Abdomen: Soft, nontender, nondistended, normal bowel sounds, no masses : Deferred Back: Nontender, no CVA tenderness Extremities: Partial amputation of the left foot with ulcer at left lateral foot. Also at heel of right foot. Swelling of right lower leg and right feot. Skin: Normal color, no trauma, abrasions Neuro: Alert, oriented, cranial nerves II through XII grossly intact. Psychiatry: Normal mood. Normal affect. Not depressed. Not anxious. Results Lab / Micro Data Result Diagrams: 12/31/22 01:20 12/31/22 01:20 Labs: Laboratory Results - last 24 hr 12/31/22 01:20: WBC 13.2 H, RBC 3.44 L, Hgb 10.6 L, Hct 33.7 L, MCV 98.0, MCH 30.8, MCHC 31.5 L, RDW Std Deviation 47.9 H, RDW Coeff of Xin 13.4, Plt Count 325, MPV 10.4, Immature Gran % (Auto) 0.400, Neut % (Auto) 61.3, Lymph % (Auto) 24.5, [place] % (Auto) 5.9, Eos % (Auto) 7.0 H, Baso % (Auto) 0.9, Absolute Neuts (auto) 8.1 H, Absolute Lymphs (auto) 3.24, Nucleated RBC % 0 12/31/22 01:20: Sodium 138, Potassium 4.2, Chloride 111 H, Carbon Dioxide 19.0 L, Anion Gap 8, BUN 16, Creatinine 1.25 H, Estim Creat Clear Calc 38.23, Est GFR (MDRD) Af Amer 55 L, Est GFR (MDRD) Non-Af 45 L, BUN/Creatinine Ratio 12.8, Glucose 149 H, Calcium 8.8, Troponin I High Sens 80 H 12/31/22 01:20: PT 14.9, INR 1.2, APTT 31.6 Radiology Impression Chest CTA 12/31/22 01:12 IMPRESSION: 1. Some bronchial wall thickening in the right lower lobe especially. This may indicate an infectious bronchiolitis or reactive airway disease. 2. No evidence of pulmonary embolism. Electronically Signed: Roberto Nicholson MD at 3:03 EST , Assessment & Plan Assessment/Plan (1) Chest pain: (2) Elevated troponin: (3) Non-STEMI (non-ST elevated myocardial infarction): (4) Acute deep vein thrombosis of right lower extremity: (5) Chronic deep vein thrombosis (DVT) of left lower extremity: PLAN: Plan Chest pain/NSTEMI/bronchiolitis Elevated troponin could also be due to acute kidney injury Place on a monitored bed at progressive care unit Chest CTA was visualized and independently interpreted. I agree with radiology interpretation of some bronchial wall thickening the right lower lobe especially.. Illogic this may be An infectious bronchiolitis or reactive airway disease. There was no evidence of pulmonary embolism. Actual CTA image was visualized and independently interpreted and I agree with radiology interpretation. Of note patient reports coughing worse than her baseline with her asthma. Agrees that patient may be having bronchiolitis. ASA 81 mg p.o. daily ordered We will check lipid panel. Discussed with cardiology who recommended consideration of nuclear stress test and if positive cardiology could be consulted. Nuclear stress test ordered. Initial high sensitive troponin is 80. If troponin is to increase dramatically cancel stress test and consult cardiology. ANNIKA Creatinine of 1.25 on presentation. Baseline creatinine is between 0.6-0.8. BUN is 16. BUN/CR is 12.8. Gentle IV hydration. Trend BMP. Avoid nephrotoxic's. Ulcers of bilateral feet Dry dressing to bilateral feet. Acute DVT and chronic DVT Acute DVT of the right leg. Chronic DVT of the left leg They have been difficulty in starting patient on anticoagulation as previously on Eliquis the patient had a nosebleed. Eliquis at the time was changed to Xarelto. Xarelto caused even worsening epistaxis. Also patient have allergy to Lovenox and unfractionated heparin. Allergy to Lovenox and unfractionated heparin is rash and shortness of breath. Emergency Department doctor discussed the case with Dr. Garcia vascular who stated that it is okay to start patient on Arixtra; and if not available to start patient on DOAC. Patient is amenable to being restarted on Eliquis. Eliquis started by ED doc and continued. If patient has epistaxis Dr. Garcia want to be consulted for consideration for IVC filter. DVT prophylaxis: Not indicated as patient has acute DVT and has been started on therapeutic dose of Eliquis. Charges/Coding Visit Charges Inpatient E&M: 40643 Init Hosp L3
[2022-12-31 05:14] LABS: Troponin-I HS 75 pg/mL (3.0-54.0)
--- NOTE | 2022-12-31 05:24 | ECHOD_ITS ---
Reason For Study: CHEST PAIN Procedure This was a 2D Doppler, Color Flow transthoracic echocardiogram. The study was technically difficult. Exam performed portable in patient room. Left Ventricle Normal LV size. Sigmoid septum. Left ventricular systolic function is normal. The estimated ejection fraction is 70 %. Diastolic function is indeterminate. No regional wall motion abnormalities noted. Right Ventricle Normal RV size. Normal systolic function. Atria Normal left atrium. Normal right atrium. No doppler evidence for ASD. Mitral Valve There is no mitral annular calcification. Normal mitral valve. Trivial mitral valve insufficiency. Tricuspid Valve Normal tricuspid valve. Trivial tricuspid valve insufficiency. Right ventricular systolic pressure estimated to be 27 mmHg. Aortic Valve Trisinus/trileaflet aortic valve. Mild diffuse aortic valve thickening. Mild aortic stenosis. Trivial aortic valve insufficiency. Pulmonic Valve The pulmonic valve is not well visualized. Trivial pulmonic valve insufficiency. Great Vessels The aortic root is not well visualized. Pericardium/Pleural No pericardial effusion. MMode/2D Measurements & Calculations LVIDd: 4.9 cm IVSd: 0.98 cm LVOT diam: 2.2 cm LVIDs: 2.9 cm LVPWd: 1.0 cm LVOT area: 3.8 cm2 RVDd: 3.2 cm FS: 41.0 % LAV(MOD-bp): 58.7 ml LA A4 area: 17.7 cm2 LA dimension(2D): 2.8 cm LAV(MOD-bp) Indexed: 33.9 ml/m2 LAV(MOD-sp2): 64.0 ml LAV(MOD-sp4): 52.1 ml RA A4 area: 11.6 cm2 Time Measurements MV dec time: 0.27 sec Doppler Measurements & Calculations MV E max drake: 79.1 cm/sec Lat Peak E' Drake: 9.3 cm/sec Med Peak E' Drake: 8.5 cm/sec MV A max drake: 88.4 cm/sec E/E' lat: 8.5 E/E' med: 9.3 MV E/A: 0.89 MV dec slope: 310.8 cm/sec2 Ao V2 max: 196.5 cm/sec LV V1 max: 92.8 cm/sec Ao max P.4 mmHg LV V1 max P.4 mmHg Ao V2 mean: 138.5 cm/sec LV V1 mean P.0 mmHg Ao mean P.5 mmHg LV V1 mean: 68.7 cm/sec Ao V2 VTI: 51.7 cm LV V1 VTI: 24.3 cm AV (velocity ratio): 0.47 MELISSA(I,D): 1.8 cm2 MELISSA(V,D): 1.8 cm2 SV(LVOT): 93.4 ml PA V2 max: 109.3 cm/sec TR max drake: 241.9 cm/sec TR max P.4 mmHg ECHO/Echo Complete Interpretation Summary The study was technically difficult. Left ventricular systolic function is normal. The estimated ejection fraction is 70 %. Sigmoid septum. Trivial mitral valve insufficiency. Trivial tricuspid valve insufficiency. Mild diffuse aortic valve thickening. Mild aortic stenosis. Trivial aortic valve insufficiency. Trivial pulmonic valve insufficiency. Right ventricular systolic pressure estimated to be 27 mmHg. Diastolic function is indeterminate. Ordering Physician: Elías Vega Referring Physician: Cody Billings Performed By: Kaylyn Pearl RDCS, RVT
[2022-12-31] MEDS: 0.9% Saline Lock 10 ML Syringe IV (06:06)
[2022-12-31] MEDS: 0.9% Normal Saline 1,000 ML 75 ML IV ×2 (06:06→17:32)
[2022-12-31 07:57] LABS: Absolute Neutrophil Count 9.1 X10^3/uL (2.0-7.7); Basophil% 0.7 % (0-1); Eosinophil# 0.91 X10^3/uL; Eosinophils% 6.3 % (0-5); Hematocrit 27.3 % (37-47); Lymphocyte % 24.1 % (19-41); Mean Corpuscular Hgb 31.8 pg (27.0-32.0); Mean Corpuscular Volume 96.5 fL (81-99); Mean Platelet Vol. 9.7 fl (6.2-12.0); Monocyte# 0.86 X10^3/uL; Monocyte% 5.9 % (0-10); NRBC Flagged by Analyzer 0 % (0-5); Neutrophil # 9.09 X10^3/uL (2.7-7.7); Neutrophil % 62.7 % (47-70); Platelet Count 238 K/mm3 (150-450); RBC Distribution Width CV 13.2 % (11.6-14.6); RBC Distribution Width SD 47.4 fl (35.1-43.9); Red Blood Count 2.83 M/mm3 (4.2-5.4); White Blood Count 14.5 K/mm3 (4.4-11.0)
[2022-12-31 08:40] LABS: Troponin-I HS 65 pg/mL (3.0-54.0)
[2022-12-31 09:14] LABS: Anion Gap 8 (5-15); BUN 13 mg/dL (7-18); BUN/Creat Ratio 13.3 RATIO (10-20); Calcium,Total 7.9 mg/dL (8.5-10.1); Chloride 115 mmol/L (98-107); Cholesterol 95 mg/dL (200); Creatinine, Serum 0.98 mg/dL (0.55-1.02); EST Glomerular Filtration Rate 60 mL/min (>60); Est Glom Filt Rate - Afr Amer 73 mL/min (>60); Estimated Creatinine Clearance 48.76 ml/min; Glucose 88 mg/dL (74-106); High Density Lipoprotein 41 mg/dL; Potassium 3.8 mmol/L (3.5-5.1); Sodium Level 139 mmol/L (136-145); Triglycerides 101 mg/dL; Very Low Density Lipoprotein 20 mg/dL (5-40)
[2022-12-31] MEDS: Menthol/Lanolin/Calamine/Znox 113 GM Tube 1 APPLIC TOPICAL ×2 (10:34→21:26)
[2022-12-31] MEDS: Nystatin Powder 15gm Bottle 1 APPLIC TOPICAL ×2 (10:34→21:27)
--- NOTE | 2022-12-31 11:00 | STRESSREP ---
Stress Test Report Date: 12-31-2022 Procedure: Pharmacologic stress nuclear imaging study Indications: Chest pain; abnormal car enzymes; acute DVT Consent: Per the patient Procedure: The patient underwent pharmacologic (Regadenoson 0.4mg ) evaluation with a peak heart rate of 102 beats per minute (66%predicted maximal heart rate) and a resting blood pressure of 144/70 mmHg and a peak blood pressure of 144/70 mmHg. The baseline ECG demonstrated normal sinus rhythm. The peak pharmacologic ECG demonstrated no obvious ECG changes. There were no cardiac dysrhythmias pretest, during pharmacologic infusion, or recovery. The patient noted chest heaviness pretest (improved since admission), during evaluation, and in recovery. The examination was discontinued secondary to completion of protocol. Impression: 1. Pharmacologic (Regadenoson) evaluation 2. Peak pharmacologic ECG with no obvious ECG changes. 3. There were no cardiac dysrhythmias pretest, during pharmacologic infusion, or recovery. 4. Nuclear images pending Myocardial perfusion imaging study: Technique: The patient was injected with 11.9 millicuries of technetium 99m Cardiolite and subsequently rest SPECT Cardiolite nuclear imaging was obtained in the horizontal long, vertical long, and short axis views. The patient underwent pharmacologic (Regadenoson) evaluation with a peak heart rate of 102 beats per minute (66% percent predicted maximal heart rate) and a resting blood pressure of 144/70 mmHg and a peak blood pressure of 144/70 mmHg. The patient was injected with 36.0 millicuries of technetium 99m Cardiolite and subsequently stress SPECT Cardiolite nuclear imaging was obtained in the horizontal long, vertical long, and short axis views. A gated Cardiolite study at peak stress was obtained. Interpretation: Rest and stress SPECT Cardiolite nuclear imaging status post realignment, normalization, and attenuation correction demonstrate relative uniform tracer uptake and myocardial perfusion appearing within normal limits. There is end systolic thickening and brightening. The gated Cardiolite study demonstrates myocardial thickening and inward wall motion. The reported LVEF is 77%. Impression: 1. Relative uniform tracer uptake and myocardial perfusion appearing within normal limits. 2. The gated Cardiolite study reports an LVEF of 77%. This note was generated with Codyation software. It may contain incorrect words, spelling, and punctuation that were not noted in checking the note before signing.
[2022-12-31] MEDS: Glucerna Shake 120 ML LIQUID PO ×3 (13:55→21:30)
--- NOTE | 2022-12-31 14:15 | CASEMGMT ---
CINDI BLOUNT Assessment: Face to Face with pt for initial transition planning/care coordination assessment. CINDI BLOUNT introduced self and role at [facility], pt voices understanding and consents to assessment. Pt is A/O x4 and answers all questions appropriately at this time. Pt lying in bed in no distress. Care providers, pharmacy, and demographics verified/updated. Admitting Dx: Non STEMI PCP:Awa Specialists:Perry, pod; Friend, GI; Davida, neuro opth; mery Junior Preferred Pharmacy: [facility] Insurance: [facility], MMO Prescription Benefit: yes LNOK: Prabha Welch, dtr; Jackie Silverman, sister Living Arrangements: Pt lives with dtr Giselle in a single story home with no steps to enter. Pt reports she needs help washing her hair and occasionally dressing. She states her dtr who lives with her assists with this. Transportation: Pt does not drive. She states family or [place] provides her with transportation. DME/HHC/SNF: Pt has a nebulizer, power chair, hospital bed, BGM with supplies ( she checks blood sugar once a week or when symptomatic). Pt is active with [facility] for SN now for wound care. Pt states her dtr provides wound care when HHC is not there. Pt has been to the [facility] and [place] in the past. Pt states no concerns with going home at time of dc. She would like her HHC to resume. TC miya Bonds at [facility], left message that pt is admitted and wants services upon dc. Green sheet on chart for HH and eliquis card. Pt denies need for list of other [facility] agencies. Pt states no further concerns/needs. CM to follow. Advised pt to ask CM if any further question/concerns/needs arise, voices understanding. Pt Goal:Home with [facility] to resume Plan:Home with [facility] to resume, eliquis card.
--- NOTE | 2022-12-31 15:01 | PCM.PN.HOSP ---
Reason for Visit Reason for Visit: Diagnoses Non-ST elevation (NSTEMI) myocardial infarction (12/31/22) Acute embolism and thrombosis of unspecified deep veins of right lower extremity (12/31/22) Chronic embolism and thrombosis of unspecified deep veins of left lower extremity (12/31/22) Chest pain, unspecified (12/31/22) Other specified abnormalities of plasma proteins (12/31/22) Subjective Subjective Chest pain improving, had headache earlier but it has been improved throughout the day. Occasional back pain. Objective Data Objective Data Vital Signs: Vital Signs Temp Pulse Resp BP Pulse Ox O2 Del Method 97.0 F L 71 16 116/55 L 98 Room Air 12/31/22 12:05 12/31/22 12:05 12/31/22 12:05 12/31/22 12:05 12/31/22 12:05 12/31/22 13:55 Oxygen Delivery Method Room Air Weight: 66.6 kg Body Mass Index (BMI) 25.2 Intake & Output: Intake and Output for Last 24 Hours 12/29/22 12/30/22 12/31/22 23:59 23:59 23:59 Intake Total 1380 / 1380 Output Total 0 / 0 Balance 1380 / 1380 Medical Nutrition Assessment Dietitian: Malnutrition Criteria Met Start: 12/31/22 12:30 Freq: Status: Active Protocol: Document 12/31/22 12:30 SLA (Rec: 12/31/22 12:30 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 Dietitian 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s/Changes Will liberalize diet to Regular d/t signs and symptoms of malnutrition Will order 4 oz glucerna shake 4x/day w/ medpass Will notify dietary that pt would like soft and bite size consistency d/t edentulous Lab / Micro Data Result Diagrams: 12/31/22 07:36 12/31/22 07:36 Labs: Laboratory Results - last 24 hr 12/31/22 01:20: WBC 13.2 H, RBC 3.44 L, Hgb 10.6 L, Hct 33.7 L, MCV 98.0, MCH 30.8, MCHC 31.5 L, RDW Std Deviation 47.9 H, RDW Coeff of Xin 13.4, Plt Count 325, MPV 10.4, Immature Gran % (Auto) 0.400, Neut % (Auto) 61.3, Lymph % (Auto) 24.5, Cochran % (Auto) 5.9, Eos % (Auto) 7.0 H, Baso % (Auto) 0.9, Absolute Neuts (auto) 8.1 H, Absolute Lymphs (auto) 3.24, Nucleated RBC % 0 12/31/22 01:20: Sodium 138, Potassium 4.2, Chloride 111 H, Carbon Dioxide 19.0 L, Anion Gap 8, BUN 16, Creatinine 1.25 H, Estim Creat Clear Calc 38.23, Est GFR (MDRD) Af Amer 55 L, Est GFR (MDRD) Non-Af 45 L, BUN/Creatinine Ratio 12.8, Glucose 149 H, Calcium 8.8, Troponin I High Sens 80 H 12/31/22 01:20: PT 14.9, INR 1.2, APTT 31.6 12/31/22 04:47: Troponin I High Sens 75 H 12/31/22 07:36: Sodium 139, Potassium 3.8, Chloride 115 H, Carbon Dioxide 16.0 L, Anion Gap 8, BUN 13, Creatinine 0.98, Estim Creat Clear Calc 48.76, Est GFR (MDRD) Af Amer 73, Est GFR (MDRD) Non-Af 60, BUN/Creatinine Ratio 13.3, Glucose 88, Calcium 7.9 L, Triglycerides 101, Cholesterol 95, LDL Cholesterol 34, VLDL Cholesterol 20, HDL Cholesterol 41 12/31/22 07:36: WBC 14.5 H, RBC 2.83 L, Hgb 9.0 L, Hct 27.3 L, MCV 96.5, MCH 31.8, MCHC 33.0, RDW Std Deviation 47.4 H, RDW Coeff of Xin 13.2, Plt Count 238, MPV 9.7, Immature Gran % (Auto) 0.300, Neut % (Auto) 62.7, Lymph % (Auto) 24.1, Cochran % (Auto) 5.9, Eos % (Auto) 6.3 H, Baso % (Auto) 0.7, Absolute Neuts (auto) 9.1 H, Absolute Lymphs (auto) 3.50, Nucleated RBC % 0 12/31/22 07:36: Troponin I High Sens 65 H Radiography Diagnostic Testing: Radiology Impression Chest CTA 12/31/22 01:12 IMPRESSION: 1. Some bronchial wall thickening in the right lower lobe especially. This may indicate an infectious bronchiolitis or reactive airway disease. 2. No evidence of pulmonary embolism. Electronically Signed: Roberto Nicholson MD at 3:03 EST , Echocardiogram 12/31/22 05:24 Interpretation Summary The study was technically difficult. Left ventricular systolic function is normal. The estimated ejection fraction is 70 %. Sigmoid septum. Trivial mitral valve insufficiency. Trivial tricuspid valve insufficiency. Mild diffuse aortic valve thickening. Mild aortic stenosis. Trivial aortic valve insufficiency. Trivial pulmonic valve insufficiency. Right ventricular systolic pressure estimated to be 27 mmHg. Diastolic function is indeterminate. Ordering Physician: Elías Vega Referring Physician: Cody Billings Performed By: Kaylyn Pearl, SAUL, RVT Physical Exam Narrative General: Alert, oriented, no apparent distress HEENT: Atraumatic, normocephalic Eyes: Anicteric, normal conjunctiva, extraocular movements grossly intact Neck: Supple Respiratory: normal respiratory effort Cardiovascular: Regular rate and rhythm GI: Soft, nontender, nondistended Extremities: No edema Musculoskeletal: Moving all extremities in bed Neuro: No overt focal neurological deficits Skin: feet wrapped Psych: Cooperative Assessment & Plan Assessment/Plan (1) Chest pain: (2) Elevated troponin: (3) Non-STEMI (non-ST elevated myocardial infarction): (4) Acute deep vein thrombosis of right lower extremity: (5) Chronic deep vein thrombosis (DVT) of left lower extremity: PLAN: Plan #Acute DVT w/ hx of chronic DVT -On eliquis, observing for bleeding as she had previously had significant nose bleeding on eliquis and xeralto -If bleeds will consult vascular for IVC filter -Allergic to heparin and Lovenox so unable to use these alternatives #Right lower extremity wound -Follows with Dr. Amador and reports waxing waning course -She had wound culture on the that grew MRSA and Pseudomonas however podiatry consulted and wound does not appear overtly infected, she has very mildly elevated white count which could be secondary to DVT or NSTEMI and no signs of systemic infection -She has had multiple episodes of severe C. difficile with antibiotics and reports she has been told she should never be on antibiotics again if at all possible -Discussed with podiatry and given benign appearance of wound and lack of systemic signs or symptoms will observe for now and hold off on antibiotics -Has grown Pseudomonas and MRSA before, very possibly may be colonized -We will obtain ESR, CRP, lactic acid, Pro-Boni so these can be trended and if worsening may need to escalate suspicion of infection and consider imaging and systemic antibiotics #NSTEMI -likely type II -Stress test negative #DVT ppx: Ari Horton MD Time spent in the patient's overall evaluation,decision-making process, review of diagnostic data, adjustment of management, discussion with other providers, nursing nursing and ancillary staff involved in patient's care documentation, 35 minutes
[2022-12-31 18:01] LABS: Erythrocyte Sedimentation Rate 71 mm/hr (0-30)
[2022-12-31 18:18] LABS: Lactic Acid 0.7 mmol/L (0.4-1.9)
[2022-12-31 18:57] LABS: Procalcitonin 0.07 ng/mL (0.00-0.09)
--- NOTE | 2022-12-31 19:39 | CON.PCM_ITS ---
Assessment & Plan Assessment/Plan (1) Non-STEMI (non-ST elevated myocardial infarction): (2) Chest pain: (3) Acute deep vein thrombosis of right lower extremity: (4) Chronic deep vein thrombosis (DVT) of left lower extremity: (5) Decubitus ulcer of right heel, stage 3: (6) Decubitus ulcer of left heel, stage 1: PLAN: Plan Patient seen and evaluated Dressings taken down to bilateral lower extremities and wounds inspected. Patient currently follows Dr. Amador in office for local wound care and reports waxing and waning of the ulcerations. Left lower extremity: There is a stable area of eschar/sloughing to the posterior heel. No erythema, no purulent drainage, no malodor, no palpable fluctuance/bogginess, no visible abscess formation, no lymphangitic streaking. Stable no signs of infection. Right lower extremity: There is a stable superficial granular wound noted to the posterior heel. Ulceration measures 1.5 cm x 1.7 cm x 0.1 cm. No erythema, no purulent drainage, no malodor, no palpable fluctuance/bogginess, no visible abscess formation, no lymphangitic streaking. Stable no signs of infection. Dressings changed consisting of 4 x 4 gauze, ABD, Kerlix, and foam offloading boot to the right and left lower extremity. Dressings may be changed every other day. Wound culture 12/27/2022 demonstrates MRSA and PsA. WBC mildly elevated at 14.5 and could be secondary to DVT or NSTEMI as she has no signs of systemic infection. Patient has had recurrent C. difficile infections with antibiotic use and was instructed to not take antibiotics if at all possible. Due to wound stable with no signs of infection and lack of systemic signs we will currently hold antibiotic. Acute DVT right lower extremity and chronic history of DVT left lower extremity. Patient currently on aspirin 81 mg p.o. daily. Patient does not tolerate various heparin agents due to allergy. Medicine currently following for medical management, they are greatly appreciated. Podiatry will continue to follow while in house. Plan to see again Monday. Please do not hesitate to call with any questions or concerns Jr[facility] [phone] HPI Consult Data Date of Consult: 12/31/22 HPI Narrative Reason for Consultation: Bilateral lower extremity heel wound HPI Narrative: RED PRICE, is a 67 F who presents to the [place] ED early this a.m. 12/31/2022. Patient has past medical history of osteomyelitis of the left foot and underwent TMA. She had been previously followed in the wound care center with left heel ulceration. Had developed new ulceration to the right heel and has been seeing Dr. Amador in office for local wound care. Dr. Amador was concerned about DVT in the right lower extremity and patient underwent vascular study and noted to have multiple DVTs. Patient had been on Eliquis in the past for DVT but unable to tolerate secondary to multiple nosebleeds. Patient also noted to have nosebleeds with Xarelto and thus placed on aspirin. Patient was instructed to go to the [place] ED by the manufacturing quality technician however there was a 4-hour wait with people in the hallway, so I decided to leave. She states that she called her family doctor to be placed on blood thinner however has had allergies to Lovenox and was unable to take this. She did return to the ED with a family friend due to shortness of breath with DVT and chest pain. In ED pulse ox was 96% on room air, not tachycardic. She did undergo CTA negative for PE. She was then started on Eliquis and admitted to [facility]. Since admission patient has been transition to ASA 81 mg p.o. daily. Patient consulted to podiatry for continued local wound care of bilateral heel ulcerations. 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 Ulcer of amputation stump of foot Wound of left foot Home Medications albuterol sulfate 90 mcg/actuation aerosol inhaler (Ventolin HFA) 1 puff inhalation Q4H PRN PRN SHORTNESS OF BREATH #0 grams 03/25/21 [Rx Last Taken Unknown] arginine 7 gram-glutam 7 gram-CaHMB 1.5 [id number] oral pwd pkt (Alfredo (with collagen)) 1 packet PO BIDCM #0 ea 03/25/21 [Rx Last Taken 08/28/22] menthol 0.44 %-zinc oxide 20.6 % topical ointment (Calmoseptine) 1 applic topical BID #0 grams 03/25/21 [Rx Last Taken 08/30/21] nystatin 100,000 unit/gram topical powder (Nyamyc) 1 applic topical TID #0 grams 03/25/21 [Rx Last Taken 08/30/21] ondansetron 4 mg disintegrating tablet 4 mg PO Q6H PRN PRN NAUSEA #0 tabs 03/25/21 [Rx Last Taken Unknown] tramadol 50 mg tablet 50 mg PO Q6H PRN Pain 05/18/21 [History Last Taken Unknow n] acidophilus 25 million cell-pectin, citrus 100 mg tablet 1 tab PO BID probiotic 08/31/21 [History Last Taken 08/28/22] cholecalciferol (vitamin D3) 50 mcg (2,000 unit) capsule 2,000 unit PO DAILY s upplement 08/31/21 [History Last Taken 08/28/22] hydrocortisone 2.5 % topical cream with perineal applicator 1 applic HI QD-BID PRN Fissure #30 grams 09/07/21 [Rx Last Taken 12/30/22] Db 7 2 cap PO.IVFORM Q8 blood sugar 12/16/21 [History Last Taken 08/28/22] budesonide 3 mg capsule,delayed,extended release 9 mg PO DAILY #90 ea 03/08/22 [Rx Last Taken 08/28/22] folic acid 1 mg tablet 1 mg PO DAILY #30 tabs 03/08/22 [Rx Last Taken 08/28/22] sulfasalazine 500 mg tablet 500 mg PO BID stomach 08/28/22 [History Last Taken 08/28/22] metoclopramide HCl 5 mg tablet (Reglan) 5 mg PO BID #60 tabs 11/18/22 [Rx Last Taken Unknown] acetaminophen 325 mg tablet 975 mg PO TID PRN Pain 12/31/22 [History Last Taken Unknown] alpha lipoic acid 600 mg tablet 600 mg PO Q24H fissure 12/31/22 [History Last Taken Unknown] ascorbic acid (vitamin C) 1,000 mg capsule 1 g PO DAILY 12/31/22 [History Last Taken Unknown] benzocaine 10 % mucosal gel 1 applic mucous membrane QHS 12/31/22 [History Last Taken Unknown] chromium 1,000 mcg tablet 100 mcg PO DAILY 12/31/22 [History Last Taken Unknown] cranberry extract-vitamin C 250 mg-60 mg capsule 1 cap PO DAILY supplement 12/31/22 [History Last Taken 12/30/22] cyclobenzaprine 5 mg tablet 5 mg PO PRN PRN Muscle Spasms 12/31/22 [History Last Taken Unknown] insulin lispro 100 unit/mL subcutaneous solution (Humalog U-100 Insulin) blood sugar 12/31/22 [History Last Taken Unknown] loperamide 2 mg capsule 2 mg PO TID diarrhea 12/31/22 [History Last Taken Unknown] pantoprazole 40 mg tablet,delayed release 40 mg PO BIDCM GERD 12/31/22 [History Last Taken Unknown] rivaroxaban 20 mg tablet (Xarelto) 20 mg PO DAILY blood thinner 12/31/22 [History Last Taken Unknown] sulfasalazine 500 mg tablet diarrhea 12/31/22 [History Last Taken Unknown] Allergy/AdvReac Type Severity Reaction Status Date / Time cefprozil Allergy Shortness Verified 12/31/22 00:58 of breath ceftriaxone Allergy Hives Verified 12/31/22 00:58 clindamycin Allergy Rash Verified 12/31/22 00:58 enalapril Allergy Other Verified 12/31/22 00:58 enoxaparin Allergy Rash Verified 12/31/22 00:58 heparin Allergy Rash Verified 12/31/22 00:58 levalbuterol Allergy Other Verified 12/31/22 00:58 morphine Allergy Shortness Verified 12/31/22 00:58 of breath Penicillins Allergy Anaphylaxis Verified 12/31/22 00:58 shellfish derived Allergy Anaphylaxis Verified 12/31/22 00:58 valsartan Allergy Other Verified 12/31/22 00:58 vancomycin Allergy Rash Verified 12/31/22 00:58 Family History Mother Cancer Lung CA w/ tobacco use history. Diabetes COPD (chronic obstructive pulmonary disease) Father Cancer Lung CA w/ tobacco use history. Diabetes COPD (chronic obstructive pulmonary disease) Heart disease Surgical History History of appendectomy History of eye surgery History of foot surgery History of lumpectomy History of tubal ligation Status post transmetatarsal amputation of left foot Tubal ligation status Social History household members: none Smoking Status: Never smoker alcohol intake: never substance use type: does not use ROS Constitutional Constitutional: Denies body ache(s), chills, fever(s) or headache(s) Eyes Eyes: Denies blindness, diplopia or dry eyes ENT HEENT: Denies dizziness, dysphagia, nasal congestion or sore throat Cardiovascular Cardiovascular: Denies claudication, cold extremities or palpitations Respiratory/Chest Respiratory/Chest: Denies cough, pain on inspiration or shortness of breath at rest Gastrointestinal Gastrointestinal: Denies abdominal pain, constipation, diarrhea, nausea or vomiting Genitourinary Genitourinary: Denies dysuria, hematuria or polyuria Musculoskeletal Musculoskeletal: Denies joint pain, joint stiffness or joint swelling Integumentary Integumentary: Denies lesions, pruritus or rash Neurologic Neurologic: Denies dizziness, numbness or seizures Psychiatric Psychiatric: Denies confusion Allergic/Immunologic Allergic/Immunologic: Reports asthma Physical Exam Const alert, oriented x3 and no apparent distress General Appearance: cooperative HEENT normocephalic Eyes General Eye: normal appearance of both eyes Neck General: normal visual inspection Lymph Lymphatic: no lymphadenopathy noted and no lymphedema noted Resp normal respiratory effort Cardio regular rate and regular rhythm Extremity normal capillary refill, no joint enlargement and no pedal edema Skin no rashes or lesions noted, skin turgor normal and no jaundice Wound Narrative: Left lower extremity: There is a stable area of eschar/sloughing to the posterior heel. No erythema, no purulent drainage, no malodor, no palpable fluctuance/bogginess, no visible abscess formation, no lymphangitic streaking. Right lower extremity: There is a stable superficial granular wound noted to the posterior heel. No erythema, no purulent drainage, no malodor, no palpable fluctuance/bogginess, no visible abscess formation, no lymphangitic streaking. Neuro moves all extremities Medical Records Data Medical Nutrition Assessment Dietitian: Malnutrition Criteria Met Start: 12/31/22 12:30 Freq: Status: Active Protocol: Document 12/31/22 12:30 SLA (Rec: 12/31/22 12:30 [facility] [id number]) Nutrition Malnutrition Evidence of Malnutrition Exists Yes Malnutrition (severe): Chronic Evidenced By Suboptimal Energy Intake ( Severe),Weight Loss (Severe) Clinical Problem Chronic Disease or Condition Related Malnutrition Etiology related to no appetite and inadequate energy intake Signs/Symptoms as evidenced by 9.3% unintentional wt loss and po intake meeting <75% 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 Dietitian 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s/Changes Will liberalize diet to Regular d/t signs and symptoms of malnutrition Will order 4 oz glucerna shake 4x/day w/ medpass Will notify dietary that pt would like soft and bite size consistency d/t edentulous Lab / Micro Data Result Diagrams: 12/31/22 07:36 12/31/22 07:36 Labs: Laboratory Results - last 24 hr 12/31/22 01:20: WBC 13.2 H, RBC 3.44 L, Hgb 10.6 L, Hct 33.7 L, MCV 98.0, MCH 30.8, MCHC 31.5 L, RDW Std Deviation 47.9 H, RDW Coeff of Xin 13.4, Plt Count 325, MPV 10.4, Immature Gran % (Auto) 0.400, Neut % (Auto) 61.3, Lymph % (Auto) 24.5, [place] % (Auto) 5.9, Eos % (Auto) 7.0 H, Baso % (Auto) 0.9, Absolute Neuts (auto) 8.1 H, Absolute Lymphs (auto) 3.24, Nucleated RBC % 0 12/31/22 01:20: Sodium 138, Potassium 4.2, Chloride 111 H, Carbon Dioxide 19.0 L , Anion Gap 8, BUN 16, Creatinine 1.25 H, Estim Creat Clear Calc 38.23, Est GFR (MDRD) Af Amer 55 L, Est GFR (MDRD) Non-Af 45 L, BUN/Creatinine Ratio 12.8, Glucose 149 H, Calcium 8.8, Troponin I High Sens 80 H 12/31/22 01:20: PT 14.9, INR 1.2, APTT 31.6 12/31/22 04:47: Troponin I High Sens 75 H 12/31/22 07:36: Sodium 139, Potassium 3.8, Chloride 115 H, Carbon Dioxide 16.0 L , Anion Gap 8, BUN 13, Creatinine 0.98, Estim Creat Clear Calc 48.76, Est GFR (MDRD) Af Amer 73, Est GFR (MDRD) Non-Af 60, BUN/Creatinine Ratio 13.3, Glucose 88, Calcium 7.9 L, Triglycerides 101, Cholesterol 95, LDL Cholesterol 34, VLDL Cholesterol 20, HDL Cholesterol 41 12/31/22 07:36: WBC 14.5 H, RBC 2.83 L, Hgb 9.0 L, Hct 27.3 L, MCV 96.5, MCH 31.8, MCHC 33.0, RDW Std Deviation 47.4 H, RDW Coeff of Xin 13.2, Plt Count 238, MPV 9.7, Immature Gran % (Auto) 0.300, Neut % (Auto) 62.7, Lymph % (Auto) 24.1, [place]orne % (Auto) 5.9, Eos % (Auto) 6.3 H, Baso % (Auto) 0.7, Absolute Neuts (auto) 9.1 H, Absolute Lymphs (auto) 3.50, Nucleated RBC % 0 12/31/22 07:36: Troponin I High Sens 65 H 12/31/22 17:39: ESR 71 H 12/31/22 17:39: C-React Prot Ext Range 27.20 H 12/31/22 17:39: Lactic Acid 0.7 12/31/22 17:39: Procalcitonin 0.07 Radiology Impression Chest CTA 12/31/22 01:12 IMPRESSION: 1. Some bronchial wall thickening in the right lower lobe especially. This may indicate an infectious bronchiolitis or reactive airway disease. 2. No evidence of pulmonary embolism. Electronically Signed: Roberto Nicholson MD at 3:03 EST , Echocardiogram 12/31/22 05:24 Interpretation Summary The study was technically difficult. Left ventricular systolic function is normal. The estimated ejection fraction is 70 %. Sigmoid septum. Trivial mitral valve insufficiency. Trivial tricuspid valve insufficiency. Mild diffuse aortic valve thickening. Mild aortic stenosis. Trivial aortic valve insufficiency. Trivial pulmonic valve insufficiency. Right ventricular systolic pressure estimated to be 27 mmHg. Diastolic function is indeterminate. Ordering Physician: Elías Vega Referring Physician: Cody Billings Performed By: Kaylyn Pearl, RDMICHELLE, RVT
[2022-12-31] MEDS: traMADol 50 MG Tablet PO (23:48)
[2022-12-31] MEDS: Ondansetron 4 MG/2 ML Vial IV (23:48)
[2023-01-01] VITALS (8 sets, daily range): BP systolic 116–160; BP diastolic 57–73; PULSE 59–77; RESP 15–16; TEMP 36.5–37.4; O2SAT 92–98
[2023-01-01] MEDS: 0.9% Normal Saline 1,000 ML 75 ML IV (04:22)
[2023-01-01 07:06] LABS: International Normalized Ratio 1.7
[2023-01-01 07:23] LABS: Erythrocyte Sedimentation Rate 47 mm/hr (0-30)
[2023-01-01 07:25] LABS: Absolute Lymphocyte Count 4.19 X10^3/uL (0.83-4.51); Absolute Neutrophil Count 8.2 X10^3/uL (2.0-7.7); Basophil# 0.11 X10^3/uL; Basophil% 0.7 % (0-1); Eosinophil# 1.35 X10^3/uL; Hematocrit 28.6 % (37-47); Hemoglobin 8.9 g/dL (12.0-15.0); Lymphocyte # 4.19 X10^3/ul (0.83-4.51); Lymphocyte % 27.9 % (19-41); Mean Corp Hgb Conc 31.1 g/dL (32-36); Mean Corpuscular Hgb 30.7 pg (27.0-32.0); Mean Corpuscular Volume 98.6 fL (81-99); Mean Platelet Vol. 10.6 fl (6.2-12.0); Monocyte# 1.14 X10^3/uL; Monocyte% 7.6 % (0-10); NRBC Flagged by Analyzer 0 % (0-5); Neutrophil # 8.18 X10^3/uL (2.7-7.7); Neutrophil % 54.5 % (47-70); Platelet Count 267 K/mm3 (150-450); RBC Distribution Width CV 13.5 % (11.6-14.6); RBC Distribution Width SD 48.9 fl (35.1-43.9)
[2023-01-01 07:26] LABS: ALB/GLOB Ratio 0.4 RATIO (0.9-2.4); AST(SGOT) 16 U/L (15-37); Alanine Aminotransfer ALT/SGPT 11 U/L (13-56); Alkaline Phosphatase 84 U/L (45-117); Anion Gap 4 (5-15); BUN 12 mg/dL (7-18); BUN/Creat Ratio 13.9 RATIO (10-20); Calcium,Total 7.8 mg/dL (8.5-10.1); Chloride 114 mmol/L (98-107); Creatinine, Serum 0.87 mg/dL (0.55-1.02); EST Glomerular Filtration Rate 69 mL/min (>60); Est Glom Filt Rate - Afr Amer 84 mL/min (>60); Estimated Creatinine Clearance 54.93 ml/min; Globulin 4.5 g/dL (2.2-4.2); Glucose 111 mg/dL (74-106); Potassium 4.1 mmol/L (3.5-5.1); Protein, Total 6.5 g/dL (6.4-8.2); Sodium Level 139 mmol/L (136-145)
--- NOTE | 2023-01-01 08:14 | PCM.PN.HOSP ---
Reason for Visit Reason for Visit: Diagnoses Non-ST elevation (NSTEMI) myocardial infarction (12/31/22) Acute embolism and thrombosis of unspecified deep veins of right lower extremity (12/31/22) Chronic embolism and thrombosis of unspecified deep veins of left lower extremity (12/31/22) Pressure ulcer of right heel, stage 3 (12/31/22) Pressure ulcer of left heel, stage 1 (12/31/22) Chest pain, unspecified (12/31/22) Other specified abnormalities of plasma proteins (12/31/22) Subjective Subjective The morning was feeling better but this afternoon was reporting some malaise and abdominal pain with diarrhea and has not had wonderful p.o. intake, +burning on urination Objective Data Objective Data Vital Signs: Vital Signs Temp Pulse Resp BP Pulse Ox O2 Del Method 98.7 F 59 L 16 122/59 H 95 Room Air 01/01/23 06:00 01/01/23 06:00 01/01/23 06:00 01/01/23 06:00 01/01/23 06:00 01/01/23 06:16 Oxygen Delivery Method Room Air Weight: 66.6 kg Body Mass Index (BMI) 25.2 Intake & Output: Intake and Output for Last 24 Hours 12/30/22 12/31/22 01/01/23 23:59 23:59 23:59 Intake Total 2587.5 / 2587.5 812.5 / 812.5 Output Total 0 / 0 150 / 150 Balance 2587.5 / 2587.5 662.5 / 662.5 Medical Nutrition Assessment Dietitian: Malnutrition Criteria Met Start: 12/31/22 12:30 Freq: Status: Active Protocol: Document 12/31/22 12:30 LEXA (Rec: 12/31/22 12:30 [facility] [id number]) Nutrition Malnutrition Evidence of Malnutrition Exists Yes Malnutrition (severe): Chronic Evidenced By Suboptimal Energy Intake ( Severe),Weight Loss (Severe) Clinical Problem Chronic Disease or Condition Related Malnutrition Etiology related to no appetite and inadequate energy intake Signs/Symptoms as evidenced by 9.3% unintentional wt loss and po intake meeting <75% 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 Dietitian 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s/Changes Will liberalize diet to Regular d/t signs and symptoms of malnutrition Will order 4 oz glucerna shake 4x/day w/ medpass Will notify dietary that pt would like soft and bite size consistency d/t edentulous Lab / Micro Data Result Diagrams: 01/01/23 06:27 01/01/23 06:27 Labs: Laboratory Results - last 24 hr 12/31/22 07:36: Sodium 139, Potassium 3.8, Chloride 115 H, Carbon Dioxide 16.0 L, Anion Gap 8, BUN 13, Creatinine 0.98, Estim Creat Clear Calc 48.76, Est GFR (MDRD) Af Amer 73, Est GFR (MDRD) Non-Af 60, BUN/Creatinine Ratio 13.3, Glucose 88, Calcium 7.9 L, Triglycerides 101, Cholesterol 95, LDL Cholesterol 34, VLDL Cholesterol 20, HDL Cholesterol 41 12/31/22 07:36: Troponin I High Sens 65 H 12/31/22 17:39: ESR 71 H 12/31/22 17:39: C-React Prot Ext Range 27.20 H 12/31/22 17:39: Lactic Acid 0.7 12/31/22 17:39: Procalcitonin 0.07 01/01/23 06:27: WBC 15.0 H, RBC 2.90 L, Hgb 8.9 L, Hct 28.6 L, MCV 98.6, MCH 30.7, MCHC 31.1 L D, RDW Std Deviation 48.9 H, RDW Coeff of Xin 13.5, Plt Count 267, MPV 10.6, Immature Gran % (Auto) 0.300, Neut % (Auto) 54.5, Lymph % (Auto) 27.9, Nuckolls % (Auto) 7.6, Eos % (Auto) 9.0 H, Baso % (Auto) 0.7, Absolute Neuts (auto) 8.2 H, Absolute Lymphs (auto) 4.19, Nucleated RBC % 0, ESR 47 H 01/01/23 06:27: PT 20.0 H, INR 1.7 01/01/23 06:27: Sodium 139, Potassium 4.1, Chloride 114 H, Carbon Dioxide 21.0, Anion Gap 4 L, BUN 12, Creatinine 0.87, Estim Creat Clear Calc 54.93, Est GFR (MDRD) Af Amer 84, Est GFR (MDRD) Non-Af 69, BUN/Creatinine Ratio 13.9, Glucose 111 H, Calcium 7.8 L, Total Bilirubin 0.50, AST 16, ALT 11 L, Alkaline Phosphatase 84, C-React Prot Ext Range 41.70 H, Total Protein 6.5, Albumin 2.0 L, Globulin 4.5 H, Albumin/Globulin Ratio 0.4 L Radiography Diagnostic Testing: Radiology Impression Echocardiogram 12/31/22 05:24 Interpretation Summary The study was technically difficult. Left ventricular systolic function is normal. The estimated ejection fraction is 70 %. Sigmoid septum. Trivial mitral valve insufficiency. Trivial tricuspid valve insufficiency. Mild diffuse aortic valve thickening. Mild aortic stenosis. Trivial aortic valve insufficiency. Trivial pulmonic valve insufficiency. Right ventricular systolic pressure estimated to be 27 mmHg. Diastolic function is indeterminate. Ordering Physician: Elías Vega Referring Physician: Cody Billings Performed By: Kaylyn Pearl, SAUL, RVT Physical Exam Narrative General: Alert, oriented, no apparent distress HEENT: Atraumatic, normocephalic Eyes: Anicteric, normal conjunctiva, extraocular movements grossly intact Neck: Supple Respiratory: normal respiratory effort Cardiovascular: Regular rate and rhythm GI: Soft, not overtly tender, nondistended Extremities: No edema Musculoskeletal: Moving all extremities in bed Neuro: No overt focal neurological deficits Skin: feet wrapped and in offloading boots Psych: Cooperative Assessment & Plan Assessment/Plan (1) Non-STEMI (non-ST elevated myocardial infarction): (2) Chest pain: (3) Acute deep vein thrombosis of right lower extremity: (4) Chronic deep vein thrombosis (DVT) of left lower extremity: (5) Decubitus ulcer of right heel, stage 3: (6) Decubitus ulcer of left heel, stage 1: (7) Elevated troponin: PLAN: Plan #Urinary tract infection -Has burning on urination w/ hx of UTIs -UA w/ nitrite, leukocyte esterase, and 2+ bacteria -U cx pending -Has hx of ESBL but also has significant allergy profile and has had multiple episodes of cdiff with abx, will give dose of fosfomycin, do not think complicated UTI at this point -Given fosfomycin requires ID on board, ID consult placed #Recurrent Cdiff -Spoke with her non destructive evaluation specialist Dr. Melissa, if abx given needs vancomycin 125 mg BID during abx and for 5 days after -ID also consulted #Right lower extremity wound -Follows with Dr. Amador and reports waxing waning course -She had wound culture on the that grew MRSA and Pseudomonas however podiatry consulted and wound does not appear overtly infected, she has very mildly elevated white count which could be secondary to DVT or NSTEMI and no signs of systemic infection -She has had multiple episodes of severe C. difficile with antibiotics and reports she has been told she should never be on antibiotics again if at all possible -Discussed with podiatry and given benign appearance of wound and lack of systemic signs or symptoms will observe for now and hold off on antibiotics -Has grown Pseudomonas and MRSA before, very possibly may be colonized -We will obtain ESR, CRP, lactic acid, Pro-Boni so these can be trended and if worsening may need to escalate suspicion of infection and consider imaging and systemic antibiotics -01/01: White count still slight elevation though may be secondary to DVT. ESR down trended, CRP remains elevated but again this may be due to DVT. Afebrile. Blood cultures pending. Goal to avoid antibiotics if at all possible due to recurrent C. difficile. Podiatry following for lower extremity wounds. Left lower extremity she has eschar/sloughing to the left posterior heel with no purulent drainage or erythema and this is stable with no signs of infection. Right lower extremity with a stable superficial granular wound on the posterior heel with ulceration measuring 1.5 cm x 1.7 cm x 0.1 cm without purulent drainage or erythema and this is reported as stable with no signs of infection. Dressings have been changed and she has foam offloading boots. Dressing changes q.o.d. Discussed w/ podiatry, given no systemic signs/symptoms of infection as well as wound with no evidence of infection will hold off on antibiotics for foot for now. #Acute DVT w/ hx of chronic DVT -On eliquis, observing for bleeding as she had previously had significant nose bleeding on eliquis and xeralto -If bleeds will consult vascular for IVC filter -Allergic to heparin and Lovenox so unable to use these alternatives -01/01: Hemoglobin stable #NSTEMI -likely type II -Stress test negative #DVT ppx: Ari Horton MD Time spent in the patient's overall evaluation,decision-making process, review of diagnostic data, adjustment of management, discussion with other providers, nursing nursing and ancillary staff involved in patient's care documentation, 35 minutes Charges/Coding Visit Charges Inpatient E&M: 58087 Subs Hosp L2
[2023-01-01 09:07] LABS: Procalcitonin 0.08 ng/mL (0.00-0.09)
[2023-01-01] MEDS: APIXABAN 5 MG TABLET 10 MG PO ×2 (10:00→21:07)
[2023-01-01] MEDS: Aspirin E.C. 81 MG Tablet PO (10:00)
[2023-01-01] MEDS: Menthol/Lanolin/Calamine/Znox 113 GM Tube 1 APPLIC TOPICAL ×2 (10:01→21:06)
[2023-01-01] MEDS: Glucerna Shake 120 ML LIQUID PO ×2 (10:01→21:07)
[2023-01-01] MEDS: Nystatin Powder 15gm Bottle 1 APPLIC TOPICAL ×2 (10:01→21:05)
[2023-01-01] MEDS: Diphenoxylate/Atrop 1 Tablet 2 TABLET PO ×2 (11:32→21:11)
[2023-01-01 11:37] LABS: Mucous, Urine 0 SEEN /hpf (<or=2+); Red Blood Cells-Urine 0 SEEN /hpf (0-5); Squamous Epithelial Cells - UA 0 SEEN /hpf (5-10)
[2023-01-01 11:47] LABS: Color, Urine Yellow (Yellow); Glucose, Dipstick Normal (Normal); Ketone-Dipstick Negative (Negative); Leukocyte Esterase-Dipstick 500 /ul (Negative); Nitrite-Dipstick Positive (Negative); Occult Blood-Urine 150 /ul (Negative); Protein-Dipstick 30 mg/dl (Negative); Urine Bilirubin Dipstick Negative (Negative); Urine Clarity Clear (Clear); Urine Urobilinogen Normal (Normal)
[2023-01-01 12:02] LABS: Bacteria 2+ /hpf (None Seen); White Blood Cells 10-25 SEEN /hpf (0-5)
--- NOTE | 2023-01-01 15:23 | NURSING ---
PO Vancomycin ok'd by Dr. Horton although vancomycin is listed as an allergy.
[2023-01-01] MEDS: FOSFOMYCIN TROMETHAMINE 3 GM PACKET PO (16:47)
[2023-01-01] MEDS: Vancomycin 125 MG/5 ML Susp PO.SYRINGE PO ×2 (18:12→21:05)
[2023-01-01] MEDS: Juven (unflavored) Packet 1 PACKET PO (21:06)
[2023-01-02] VITALS (8 sets, daily range): BP systolic 116–152; BP diastolic 57–73; PULSE 65–73; RESP 15–18; TEMP 36.8–37.2; O2SAT 95–98
[2023-01-02] MEDS: Juven (unflavored) Packet 1 PACKET PO ×2 (05:43→13:20)
[2023-01-02 06:18] LABS: Absolute Lymphocyte Count 3.94 X10^3/uL (0.83-4.51); Absolute Neutrophil Count 5.7 X10^3/uL (2.0-7.7); Basophil# 0.11 X10^3/uL; Basophil% 0.9 % (0-1); Eosinophil# 1.42 X10^3/uL; Eosinophils% 11.5 % (0-5); Erythrocyte Sedimentation Rate 45 mm/hr (0-30); Hematocrit 30.4 % (37-47); Hemoglobin 9.2 g/dL (12.0-15.0); Lymphocyte # 3.94 X10^3/ul (0.83-4.51); Lymphocyte % 31.8 % (19-41); Mean Corp Hgb Conc 30.3 g/dL (32-36); Mean Corpuscular Hgb 30.9 pg (27.0-32.0); Mean Platelet Vol. 10.9 fl (6.2-12.0); Monocyte# 1.13 X10^3/uL; Monocyte% 9.1 % (0-10); NRBC Flagged by Analyzer 0 % (0-5); Neutrophil # 5.74 X10^3/uL (2.7-7.7); Neutrophil % 46.2 % (47-70); Platelet Count 280 K/mm3 (150-450); RBC Distribution Width CV 13.6 % (11.6-14.6); Red Blood Count 2.98 M/mm3 (4.2-5.4); White Blood Count 12.4 K/mm3 (4.4-11.0)
[2023-01-02 06:43] LABS: ALB/GLOB Ratio 0.4 RATIO (0.9-2.4); AST(SGOT) 15 U/L (15-37); Alanine Aminotransfer ALT/SGPT 10 U/L (13-56); Alkaline Phosphatase 87 U/L (45-117); Anion Gap 6 (5-15); BUN 16 mg/dL (7-18); BUN/Creat Ratio 19.1 RATIO (10-20); Calcium,Total 7.9 mg/dL (8.5-10.1); Chloride 113 mmol/L (98-107); Creatinine, Serum 0.84 mg/dL (0.55-1.02); EST Glomerular Filtration Rate 72 mL/min (>60); Est Glom Filt Rate - Afr Amer 87 mL/min (>60); Estimated Creatinine Clearance 56.89 ml/min; Globulin 4.6 g/dL (2.2-4.2); Glucose 119 mg/dL (74-106); Potassium 4.3 mmol/L (3.5-5.1); Protein, Total 6.6 g/dL (6.4-8.2); Sodium Level 140 mmol/L (136-145)
--- NOTE | 2023-01-02 07:40 | PN_ITS ---
Subjective Subjective Patient was seen this morning for follow up on bilateral heel ulcers. She has no new pedal complaints. She is wearing offloading heel boots. She is resting in bed. No fevers. Objective Data Objective Data Vital Signs: Vital Signs Temp Pulse Resp BP Pulse Ox O2 Del Method 98.4 F 65 17 116/57 L 96 Room Air 01/02/23 06:00 01/02/23 06:00 01/02/23 06:00 01/02/23 06:00 01/02/23 07:24 01/02/23 07:24 Oxygen Delivery Method Room Air Weight: 66.6 kg Body Mass Index (BMI) 25.2 Intake & Output: Intake and Output for Last 24 Hours 12/31/22 01/01/23 01/02/23 23:59 23:59 23:59 Intake Total 2587.5 / 2587.5 3162.5 / 3162.5 Output Total 0 / 0 650 / 650 0 / 0 Balance 2587.5 / 2587.5 2512.5 / 2512.5 0 / 0 Medical Nutrition Assessment Dietitian: Malnutrition Criteria Met Start: 12/31/22 12:30 Freq: Status: Active Protocol: Document 12/31/22 12:30 SLA (Rec: 12/31/22 12:30 SLA [id number]) Nutrition Malnutrition Evidence of Malnutrition Exists Yes Malnutrition (severe): Chronic Evidenced By Suboptimal Energy Intake ( Severe),Weight Loss (Severe) Clinical Problem Chronic Disease or Condition Related Malnutrition Etiology related to no appetite and inadequate energy intake Signs/Symptoms as evidenced by 9.3% unintentional wt loss and po intake meeting <75% of 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 Dietitian 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s/Changes Will liberalize diet to Regular d/t signs and symptoms of malnutrition Will order 4 oz glucerna shake 4x/day w/ medpass Will notify dietary that pt would like soft and bite size consistency d/t edentulous Lab / Micro Data Result Diagrams: 01/02/23 04:58 01/02/23 04:58 Labs: Laboratory Results - last 24 hr 01/01/23 00:22: Urine Color Yellow, Urine Clarity Clear, Urine pH 5.0, Ur Specific [place] 1.010, Urine Protein 30 H, Urine Glucose (UA) Normal, Urine Ketones Negative, Urine Occult Blood 150 H, Urine Nitrite Positive H, Urine Bilirubin Negative, Urine Urobilinogen Normal, Ur Leukocyte Esterase 500 H, Urine RBC 0 SEEN, Urine WBC 10-25 SEEN, Ur Squamous Epith Cells 0 SEEN, Urine Bacteria 2+, Urine Mucus 0 SEEN 01/01/23 06:27: Procalcitonin 0.08 01/02/23 04:58: WBC 12.4 H, RBC 2.98 L, Hgb 9.2 L, Hct 30.4 L, MCV 102.0 H, MCH 30.9, MCHC 30.3 L, RDW Std Deviation 51.0 H, RDW Coeff of Xin 13.6, Plt Count 280, MPV 10.9, Immature Gran % (Auto) 0.500, Neut % (Auto) 46.2 L, Lymph % (Auto) 31.8, [place] % (Auto) 9.1, Eos % (Auto) 11.5 H, Baso % (Auto) 0.9, Absolute Neuts (auto) 5.7, Absolute Lymphs (auto) 3.94, Nucleated RBC % 0 01/02/23 04:58: Sodium 140, Potassium 4.3, Chloride 113 H, Carbon Dioxide 21.0, Anion Gap 6, BUN 16, Creatinine 0.84, Estim Creat Clear Calc 56.89, Est GFR (MDRD) Af Amer 87, Est GFR (MDRD) Non-Af 72, BUN/Creatinine Ratio 19.1, Glucose 119 H, Calcium 7.9 L, Total Bilirubin 0.20, AST 15, ALT 10 L, Alkaline Phosphatase 87, C-React Prot Ext Range 31.80 H, Total Protein 6.6, Albumin 2.0 L , Globulin 4.6 H, Albumin/Globulin Ratio 0.4 L Physical Exam Const alert, oriented x3 and no apparent distress General Appearance: cooperative Extremity normal capillary refill, no joint enlargement and no pedal edema Skin Wound Narrative: Left lower extremity: There is a stable area of eschar/sloughing to the posterior heel. No erythema, no purulent drainage, no malodor, no palpable fluctuance/bogginess, no visible abscess formation, no lymphangitic streaking. Right lower extremity: There is a stable superficial granular wound noted to the posterior heel. No erythema, no purulent drainage, no malodor, no palpable fluctuance/bogginess, no visible abscess formation, no lymphangitic streaking. No evidence of acute ischemia bilateral foot or ankle. Assessment & Plan Assessment/Plan (1) Non-STEMI (non-ST elevated myocardial infarction): (2) Chest pain: (3) Acute deep vein thrombosis of right lower extremity: (4) Chronic deep vein thrombosis (DVT) of left lower extremity: (5) Decubitus ulcer of right heel, stage 3: (6) Decubitus ulcer of left heel, stage 1: PLAN: Plan Patient seen and evaluated Dressings taken down to bilateral lower extremities and wounds inspected. Patient currently follows Dr. Amador in office for local wound care and reports waxing and waning of the ulcerations. Left lower extremity: There is a stable area of eschar/sloughing to the posterior heel. No erythema, no purulent drainage, no malodor, no palpable fluctuance/bogginess, no visible abscess formation, no lymphangitic streaking. Stable no signs of infection. Right lower extremity: There is a stable superficial granular wound noted to the posterior heel. No erythema, no purulent drainage, no malodor, no palpable fluctuance/bogginess, no visible abscess formation, no lymphangitic streaking. Stable no signs of infection. Dressings changed consisting of 4 x 4 gauze, ABD, Kerlix, and foam offloading boot to the right and left lower extremity. Dressings may be changed every other day. Wound culture 12/27/2022 demonstrates MRSA and PsA. Patient has had recurrent C. difficile infections with antibiotic use and was instructed to not take antibiotics if at all possible. Due to wound stable with no signs of infection and lack of systemic signs we will currently hold antibiotic. Acute DVT right lower extremity and chronic history of DVT left lower extremity. Patient currently on aspirin 81 mg p.o. daily. Patient does not tolerate various heparin agents due to allergy. Medicine currently following for medical management, they are greatly appreciated. Podiatry will continue to follow while in house. Plan to see again Monday. Please do not hesitate to call with any questions or concerns.
[2023-01-02] MEDS: Vancomycin 125 MG/5 ML Susp PO.SYRINGE PO (08:31)
[2023-01-02] MEDS: Diphenoxylate/Atrop 1 Tablet 2 TABLET PO ×2 (08:31→22:53)
[2023-01-02] MEDS: Glucerna Shake 120 ML LIQUID PO ×3 (08:31→22:57)
[2023-01-02] MEDS: APIXABAN 5 MG TABLET 10 MG PO ×2 (08:31→22:53)
[2023-01-02] MEDS: Aspirin E.C. 81 MG Tablet PO (08:31)
[2023-01-02] MEDS: Menthol/Lanolin/Calamine/Znox 113 GM Tube 1 APPLIC TOPICAL ×2 (08:35→22:53)
[2023-01-02] MEDS: Nystatin Powder 15gm Bottle 1 APPLIC TOPICAL ×2 (08:36→22:54)
--- NOTE | 2023-01-02 08:36 | WOUNDNOTE ---
wound photo: left lateral foot
--- NOTE | 2023-01-02 08:38 | WOUNDNOTE ---
wound photo: left heel
--- NOTE | 2023-01-02 08:38 | WOUNDNOTE ---
wound photo: right heel
--- NOTE | 2023-01-02 10:39 | PN.HOSP_ITS ---
Reason for Visit Reason for Visit: Diagnoses Non-ST elevation (NSTEMI) myocardial infarction (12/31/22) Acute embolism and thrombosis of unspecified deep veins of right lower extremity (12/31/22) Chronic embolism and thrombosis of unspecified deep veins of left lower extremity (12/31/22) Pressure ulcer of right heel, stage 3 (12/31/22) Pressure ulcer of left heel, stage 1 (12/31/22) Chest pain, unspecified (12/31/22) Other specified abnormalities of plasma proteins (12/31/22) Subjective Subjective Patient is a 67-year-old lady with multiple comorbidities including recent diagnosis of bilateral lower extremity DVT presented to the emergency department with shortness of breath. Hospital stay complicated by UTI as well as recurrent C. difficile co Objective Data Objective Data Vital Signs: Vital Signs Temp Pulse Resp BP Pulse Ox O2 Del Method 98.2 F 69 18 137/72 H 95 Room Air 01/02/23 09:28 01/02/23 09:28 01/02/23 09:28 01/02/23 09:28 01/02/23 09:28 01/02/23 09:28 Oxygen Delivery Method Room Air Weight: 66.6 kg Body Mass Index (BMI) 25.2 Intake & Output: Intake and Output for Last 24 Hours 12/31/22 01/01/23 01/02/23 23:59 23:59 23:59 Intake Total 2587.5 / 2587.5 3162.5 / 3162.5 Output Total 0 / 0 650 / 650 0 / 0 Balance 2587.5 / 2587.5 2512.5 / 2512.5 0 / 0 Medical Nutrition Assessment Dietitian: Malnutrition Criteria Met Start: 12/31/22 12:30 Freq: Status: Active Protocol: Document 12/31/22 12:30 SLA (Rec: 12/31/22 12:30 [facility] [id number]) Nutrition Malnutrition Evidence of Malnutrition Exists Yes Malnutrition (severe): Chronic Evidenced By Suboptimal Energy Intake ( Severe),Weight Loss (Severe) Clinical Problem Chronic Disease or Condition Related Malnutrition Etiology related to no appetite and inadequate energy intake Signs/Symptoms as evidenced by 9.3% unintentional wt loss and po intake meeting <75% 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 Dietitian 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s/Changes Will liberalize diet to Regular d/t signs and symptoms of malnutrition Will order 4 oz glucerna shake 4x/day w/ medpass Will notify dietary that pt would like soft and bite size consistency d/t edentulous Lab / Micro Data Result Diagrams: 01/02/23 04:58 01/02/23 04:58 Labs: Laboratory Results - last 24 hr 01/01/23 00:22: Urine Color Yellow, Urine Clarity Clear, Urine pH 5.0, Ur Specific [place] 1.010, Urine Protein 30 H, Urine Glucose (UA) Normal, Urine Ketones Negative, Urine Occult Blood 150 H, Urine Nitrite Positive H, Urine B ilirubin Negative, Urine Urobilinogen Normal, Ur Leukocyte Esterase 500 H, Urine RBC 0 SEEN, Urine WBC 10-25 SEEN, Ur Squamous Epith Cells 0 SEEN, Urine Bacteria 2+, Urine Mucus 0 SEEN 01/02/23 04:58: WBC 12.4 H, RBC 2.98 L, Hgb 9.2 L, Hct 30.4 L, MCV 102.0 H, MCH 30.9, MCHC 30.3 L, RDW Std Deviation 51.0 H, RDW Coeff of Xin 13.6, Plt Count 280, MPV 10.9, Immature Gran % (Auto) 0.500, Neut % (Auto) 46.2 L, Lymph % (Auto) 31.8, Major % (Auto) 9.1, Eos % (Auto) 11.5 H, Baso % (Auto) 0.9, Absolute Neuts (auto) 5.7, Absolute Lymphs (auto) 3.94, Nucleated RBC % 0 01/02/23 04:58: Sodium 140, Potassium 4.3, Chloride 113 H, Carbon Dioxide 21.0, Anion Gap 6, BUN 16, Creatinine 0.84, Estim Creat Clear Calc 56.89, Est GFR (MDRD) Af Amer 87, Est GFR (MDRD) Non-Af 72, BUN/Creatinine Ratio 19.1, Glucose 119 H, Calcium 7.9 L, Total Bilirubin 0.20, AST 15, ALT 10 L, Alkaline Phosphatase 87, C-React Prot Ext Range 31.80 H, Total Protein 6.6, Albumin 2.0 L , Globulin 4.6 H, Albumin/Globulin Ratio 0.4 L Micro: Microbiology 01/01/23 03:15 Urine, Random Urine Culture - Preliminary Presumptive E. coli Physical Exam Narrative GENERAL: cooperative HEENT: Atraumatic; normocephalic EYES; Anicteric, Normal Conjunctiva NECK; supple, normal thyroid, RESPIRATORY: Diminished to auscultation CARDIOVASCULAR: Regular S1 S2, GI: soft, normoactive bowel sounds, : No Renal angle tenderness; EXTREMITIES: No edema, no clubbing, MUSCULOSKELETAL: no muscle wasting NEURO: Awake; no lateralizing signs. SKIN: No Rash PSYCH; Flat affect Assessment & Plan Assessment/Plan (1) Non-STEMI (non-ST elevated myocardial infarction): (2) Chest pain: (3) Acute deep vein thrombosis of right lower extremity: (4) Chronic deep vein thrombosis (DVT) of left lower extremity: (5) Decubitus ulcer of right heel, stage 3: (6) Decubitus ulcer of left heel, stage 1: (7) Elevated troponin: PLAN: Plan Patient is a 67-year-old lady with multiple comorbidities including recent diagn osis of bilateral lower extremity DVT presented to the emergency department with shortness of breath. Hospital stay complicated by UTI as well as recurrent C. difficile colitis 1. Acute hypoxia ? CTA of the chest was negative for pulmonary embolism patient was however found to have some bronchial wall thickening in the right lower lobe consistent with reactive airway disease versus infectious bronchiolitis 2. Acute bilateral DVTs ? Patient is on Eliquis currently being observed for epistaxis if patient has recurrent epistaxis plan will be to consult vascular surgery for IVC filter placement 3. ESBL urinary tract infection ? Patient was prescribed fosfomycin with consultation placed to ID 4. Recurrent C. difficile colitis ? Case was discussed with GI Dr. Friend recommended for patient to be placed on vancomycin 125 mg p.o. twice daily 5. Right lower extremity wound ? Patient is followed by podiatry. Wound cultures from 12/27/2022 grew MRSA and Pseudomonas. Subsequent antibiotic therapy deferred to infectious disease 6. Elevated troponin ? Secondary to demand ischemia acute non-STEMI type II ruled out Time spent in the patient's overall evaluation,decision-making process, review of diagnostic data, adjustment of management, discussion with other providers, nursing nursing and ancillary staff involved in patient's care documentation, 35 minutes Charges/Coding Visit Charges Inpatient E&M: 41993 Subs Hosp L2
--- NOTE | 2023-01-02 12:43 | CON.PCM.ID_ITS ---
Assessment & Plan Assessment/Plan (1) Clostridium difficile carrier: PLAN: Chronic diarrhea, unchanged. Put on po vanc as proph here, but did not actually receive dose of fosfomycin per MAR. Will stop vanc. Will follow as needed, thank you HPI Consult Data Date of Consult: 01/02/23 HPI Narrative Reason for Consultation: recurrent cdiff HPI Narrative: RED PRICE, is a 67 F who presented 3/4 to ED with acute onset RLE pain/swelling and chest heaviness. Has chronic diarrhea, follows with Dr. Melissa. Found to have RLE DVT, admitted with NSTEMI. Denies any dysuria. Full ROS performed and neg except as noted above. 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 Ulcer of amputation stump of foot Wound of left foot Home Medications albuterol sulfate 90 mcg/actuation aerosol inhaler (Ventolin HFA) 1 puff inhal ation Q4H PRN PRN SHORTNESS OF BREATH #0 grams 03/25/21 [Rx Last Taken Unknown] ondansetron 4 mg disintegrating tablet 4 mg PO Q6H PRN PRN NAUSEA #0 tabs 03/25/21 [Rx Last Taken Unknown] tramadol 50 mg tablet 50 mg PO Q6H PRN Pain 05/18/21 [History Last Taken Unknown] acidophilus 25 million cell-pectin, citrus 100 mg tablet 1 tab PO BID probiotic 08/31/21 [History Last Taken 08/28/22] cholecalciferol (vitamin D3) 50 mcg (2,000 unit) capsule 2,000 unit PO DAILY supplement 08/31/21 [History Last Taken 08/28/22] hydrocortisone 2.5 % topical cream with perineal applicator 1 applic KY QD-BID PRN Fissure #30 grams 09/07/21 [Rx Last Taken 12/30/22] Db 7 2 cap PO.IVFORM Q8 blood sugar 12/16/21 [History Last Taken 08/28/22] budesonide 3 mg capsule,delayed,extended release 9 mg PO DAILY #90 ea 03/08/22 [Rx Last Taken 08/28/22] folic acid 1 mg tablet 1 mg PO DAILY #30 tabs 03/08/22 [Rx Last Taken 08/28/22] sulfasalazine 500 mg tablet 500 mg PO BID stomach 08/28/22 [History Last Taken 08/28/22] acetaminophen 325 mg tablet 975 mg PO TID PRN Pain 12/31/22 [History Last Taken Unknown] alpha lipoic acid 600 mg tablet 600 mg PO Q24H fissure 12/31/22 [History Last Taken Unknown] ascorbic acid (vitamin C) 1,000 mg capsule 1 g PO DAILY 12/31/22 [History Last Taken Unknown] benzocaine 10 % mucosal gel 1 applic mucous membrane QHS 12/31/22 [History Last Taken Unknown] chromium 1,000 mcg tablet 100 mcg PO DAILY 12/31/22 [History Last Taken Unknown] cranberry extract-vitamin C 250 mg-60 mg capsule 1 cap PO DAILY supplement 12/31/22 [History Last Taken 12/30/22] cyclobenzaprine 5 mg tablet 5 mg PO PRN PRN Muscle Spasms 12/31/22 [History Last Taken Unknown] insulin lispro 100 unit/mL subcutaneous solution (Humalog U-100 Insulin) blood sugar 12/31/22 [History Last Taken Unknown] loperamide 2 mg capsule 2 mg PO TID diarrhea 12/31/22 [History Last Taken Unknown] pantoprazole 40 mg tablet,delayed release 40 mg PO BIDCM GERD 12/31/22 [History Last Taken Unknown] rivaroxaban 20 mg tablet (Xarelto) 20 mg PO DAILY blood thinner 12/31/22 [History Last Taken Unknown] sulfasalazine 500 mg tablet diarrhea 12/31/22 [History Last Taken Unknown] arginine 7 gram-glutam 7 gram-CaHMB 1.5 [id number]-ancsb-jk-min oral pwd pkt (Lafredo (with collagen)) 1 packet PO BIDCM wound healing 01/01/23 [History Last Taken U nknown] menthol 0.44 %-zinc oxide 20.6 % topical ointment (Calmoseptine) 1 applic topical BID skin protectant 01/01/23 [History Last Taken Unknown] metoclopramide HCl 5 mg tablet (Reglan) 5 mg PO BID stomach 01/01/23 [History Last Taken Unknown] nystatin 100,000 unit/gram topical powder (Nyamyc) 1 applic topical TID skin irritation 01/01/23 [History Last Taken Unknown] Allergy/AdvReac Type Severity Reaction Status Date / Time cefprozil Allergy Shortness Verified 12/31/22 00:58 of breath ceftriaxone Allergy Hives Verified 12/31/22 00:58 clindamycin Allergy Rash Verified 12/31/22 00:58 enalapril Allergy Other Verified 12/31/22 00:58 enoxaparin Allergy Rash Verified 12/31/22 00:58 heparin Allergy Rash Verified 12/31/22 00:58 levalbuterol Allergy Other Verified 12/31/22 00:58 morphine Allergy Shortness Verified 12/31/22 00:58 of breath Penicillins Allergy Anaphylaxis Verified 12/31/22 00:58 shellfish derived Allergy Anaphylaxis Verified 12/31/22 00:58 valsartan Allergy Other Verified 12/31/22 00:58 vancomycin Allergy Rash Verified 12/31/22 00:58 Family History Mother Cancer Lung CA w/ tobacco use history. Diabetes COPD (chronic obstructive pulmonary disease) Father Cancer Lung CA w/ tobacco use history. Diabetes COPD (chronic obstructive pulmonary disease) Heart disease Surgical History History of appendectomy History of eye surgery History of foot surgery History of lumpectomy History of tubal ligation Status post transmetatarsal amputation of left foot Tubal ligation status Social History household members: none Smoking Status: Never smoker alcohol intake: never substance use type: does not use Physical Exam Const alert, oriented x3 and no apparent distress General Appearance: cooperative HEENT normocephalic and head/scalp atraumatic Eyes PERRL and EOMs intact bilaterally Neck supple and No nodes Resp normal air movement and clear to auscultation bilaterally Cardio regular rate and regular rhythm GI soft to palpation, non-tender and non-distended Extremity General Extremity: edema Skin no rashes or lesions noted Neuro CN's II-XII intact bilaterally Medical Records Data Medical Nutrition Assessment Dietitian: Malnutrition Criteria Met Start: 12/31/22 12:30 Freq: Status: Active Protocol: Document 12/31/22 12:30 [facility] (Rec: 12/31/22 12:30 [facility] [id number]) Nutrition Malnutrition Evidence of Malnutrition Exists Yes Malnutrition (severe): Chronic Evidenced By Suboptimal Energy Intake ( Severe),Weight Loss (Severe) Clinical Problem Chronic Disease or Condition Related Malnutrition Etiology related to no appetite and inadequate energy intake Signs/Symptoms as evidenced by 9.3% unintentional wt loss and po intake meeting <75% 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 Result Diagrams: 01/02/23 04:58 01/02/23 04:58 Labs: Laboratory Results - last 24 hr 01/02/23 04:58: WBC 12.4 H, RBC 2.98 L, Hgb 9.2 L, Hct 30.4 L, MCV 102.0 H, MCH 30.9, MCHC 30.3 L, RDW Std Deviation 51.0 H, RDW Coeff of Xin 13.6, Plt Count 280, MPV 10.9, Immature Gran % (Auto) 0.500, Neut % (Auto) 46.2 L, Lymph % (Auto) 31.8, [place] % (Auto) 9.1, Eos % (Auto) 11.5 H, Baso % (Auto) 0.9, Absolute Neuts (auto) 5.7, Absolute Lymphs (auto) 3.94, Nucleated RBC % 0 01/02/23 04:58: Sodium 140, Potassium 4.3, Chloride 113 H, Carbon Dioxide 21.0, Anion Gap 6, BUN 16, Creatinine 0.84, Estim Creat Clear Calc 56.89, Est GFR (MDRD) Af Amer 87, Est GFR (MDRD) Non-Af 72, BUN/Creatinine Ratio 19.1, Glucose 119 H, Calcium 7.9 L, Total Bilirubin 0.20, AST 15, ALT 10 L, Alkaline Phosphatase 87, C-React Prot Ext Range 31.80 H, Total Protein 6.6, Albumin 2.0 L , Globulin 4.6 H, Albumin/Globulin Ratio 0.4 L Micro: Microbiology 01/01/23 03:15 Urine, Random Urine Culture - Preliminary Presumptive E. coli
--- NOTE | 2023-01-02 13:08 | CHAPLAIN ---
Type of Pastoral Visit _x__ Initial Visit ___ Follow-up Visit ___ On-call Visit ___ General Patient Visit ___ Spiritual Assessment ___ Family Conference ___ Bereavement ___ Rapid Response ___ Code Blue ___ Other (describe below) Pastoral Care Referral From _x__ Patient ___ Family ___ Nurse ___ Physician ___ Information Technology Administrator ___ Receiving Associate Store ___ Other (describe below) Sacrament/Intervention _x__ Active listening ___ Anointing ___ Alevism ___ Bereavement ___ Communion _x__ Dang exploration ___ _x__ Life review _x__ Prayer ___ Reconciliation ___ Sacrament of Sick _x__ Supportive presence ___ Wedding ___ Other (describe below) Pastoral Comments patient has been seen by this public relations account supervisor in previous admissions; pt gives full update on health and personal life; pt speaks of her support from family and recent dissolution of marriage; pt uses dang and family to keep her attitude positive and hopeful; pt is appreciative of hospital staff; prayer welcomed
[2023-01-02] MEDS: 0.9% Saline Lock 10 ML Syringe IV (15:00)
[2023-01-02] MEDS: Ondansetron 4 MG/2 ML Vial IV (15:00)
[2023-01-02] MEDS: Pantoprazole Sodium 40 MG Tablet PO (17:50)
[2023-01-02] MEDS: sulfaSALAzine 500 MG Tablet PO (22:53)
[2023-01-03] VITALS: BP 152/65; PULSE 73; RESP 18; TEMP 37.2; O2SAT 98
[2023-01-03 04:45] VITALS: BP 141/70; PULSE 72; RESP 16; TEMP 36.7; O2SAT 95
[2023-01-03 06:00] VITALS: BP 141/70; PULSE 72; RESP 18; TEMP 36.7; O2SAT 98
[2023-01-03 06:19] LABS: Absolute Lymphocyte Count 3.87 X10^3/uL (0.83-4.51); Absolute Neutrophil Count 4.7 X10^3/uL (2.0-7.7); Basophil% 0.9 % (0-1); Eosinophil# 1.38 X10^3/uL; Eosinophils% 12.7 % (0-5); Hematocrit 30.5 % (37-47); Hemoglobin 9.4 g/dL (12.0-15.0); Lymphocyte # 3.87 X10^3/ul (0.83-4.51); Lymphocyte % 35.5 % (19-41); Mean Corp Hgb Conc 30.8 g/dL (32-36); Mean Corpuscular Hgb 30.8 pg (27.0-32.0); Mean Platelet Vol. 10.5 fl (6.2-12.0); Monocyte# 0.82 X10^3/uL; Monocyte% 7.5 % (0-10); NRBC Flagged by Analyzer 0 % (0-5); Neutrophil # 4.68 X10^3/uL (2.7-7.7); Neutrophil % 42.9 % (47-70); Platelet Count 316 K/mm3 (150-450); RBC Distribution Width CV 13.2 % (11.6-14.6); Red Blood Count 3.05 M/mm3 (4.2-5.4); White Blood Count 10.9 K/mm3 (4.4-11.0)
[2023-01-03 06:55] LABS: Anion Gap 5 (5-15); BUN 24 mg/dL (7-18); BUN/Creat Ratio 30.5 RATIO (10-20); Calcium,Total 8.4 mg/dL (8.5-10.1); Chloride 112 mmol/L (98-107); Creatinine, Serum 0.79 mg/dL (0.55-1.02); EST Glomerular Filtration Rate 78 mL/min (>60); Est Glom Filt Rate - Afr Amer 94 mL/min (>60); Estimated Creatinine Clearance 47.79 ml/min; Glucose 96 mg/dL (74-106); Magnesium 1.6 mg/dL (1.6-2.6); Potassium 4.3 mmol/L (3.5-5.1); Sodium Level 140 mmol/L (136-145)
--- NOTE | 2023-01-03 08:38 | PCM.PN.HOSP ---
Reason for Visit Reason for Visit: Diagnoses Non-ST elevation (NSTEMI) myocardial infarction (12/31/22) Acute embolism and thrombosis of unspecified deep veins of right lower extremity (12/31/22) Chronic embolism and thrombosis of unspecified deep veins of left lower extremity (12/31/22) Pressure ulcer of right heel, stage 3 (12/31/22) Pressure ulcer of left heel, stage 1 (12/31/22) Chest pain, unspecified (12/31/22) Other specified abnormalities of plasma proteins (12/31/22) Carrier of other intestinal infectious diseases (12/31/22) Subjective Subjective Patient seen had a really 13-year-old 4 night. Plan is for patient to be assessed for possible discharge Objective Data Objective Data Vital Signs: Vital Signs Temp Pulse Resp BP Pulse Ox O2 Del Method 98.0 F 72 18 141/70 H 98 Room Air 01/03/23 06:00 01/03/23 06:00 01/03/23 06:00 01/03/23 06:00 01/03/23 06:00 01/03/23 06:00 Oxygen Delivery Method Room Air Weight: 66.6 kg Body Mass Index (BMI) 25.2 Intake & Output: Intake and Output for Last 24 Hours 01/01/23 01/02/23 01/03/23 23:59 23:59 23:59 Intake Total 3162.5 / 3162.5 910 / 1270 600 / 600 Output Total 650 / 650 875 / 1125 650 / 650 Balance 2512.5 / 2512.5 35 / 145 -50 / -50 Medical Nutrition Assessment Dietitian: Malnutrition Criteria Met Start: 12/31/22 12:30 Freq: Status: Active Protocol: Document 12/31/22 12:30 [facility] (Rec: 12/31/22 12:30 [facility] [id number]) Nutrition Malnutrition Evidence of Malnutrition Exists Yes Malnutrition (severe): Chronic Evidenced By Suboptimal Energy Intake ( Severe),Weight Loss (Severe) Clinical Problem Chronic Disease or Condition Related Malnutrition Etiology related to no appetite and inadequate energy intake Signs/Symptoms as evidenced by 9.3% unintentional wt loss and po intake meeting <75% 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 Dietitian 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s/Changes Will liberalize diet to Regular d/t signs and symptoms of malnutrition Will order 4 oz glucerna shake 4x/day w/ medpass Will notify dietary that pt would like soft and bite size consistency d/t edentulous Lab / Micro Data Result Diagrams: 01/03/23 05:45 01/03/23 05:45 Labs: Laboratory Results - last 24 hr 01/02/23 04:58: ESR 45 H 01/02/23 04:58: Sodium 140, Potassium 4.3, Chloride 113 H, Carbon Dioxide 21.0, Anion Gap 6, BUN 16, Creatinine 0.84, Estim Creat Clear Calc 56.89, Est GFR (MDRD) Af Amer 87, Est GFR (MDRD) Non-Af 72, BUN/Creatinine Ratio 19.1, Glucose 119 H, Calcium 7.9 L, Total Bilirubin 0.20, AST 15, ALT 10 L, Alkaline Phosphatase 87, C-React Prot Ext Range 31.80 H, Total Protein 6.6, Albumin 2.0 L, Globulin 4.6 H, Albumin/Globulin Ratio 0.4 L 01/03/23 05:45: WBC 10.9, RBC 3.05 L, Hgb 9.4 L, Hct 30.5 L, MCV 100.0 H, MCH 30.8, MCHC 30.8 L, RDW Std Deviation 49.0 H, RDW Coeff of Xin 13.2, Plt Count 316, MPV 10.5, Immature Gran % (Auto) 0.500, Neut % (Auto) 42.9 L, Lymph % (Auto) 35.5, [place] % (Auto) 7.5, Eos % (Auto) 12.7 H, Baso % (Auto) 0.9, Absolute Neuts (auto) 4.7, Absolute Lymphs (auto) 3.87, Nucleated RBC % 0 01/03/23 05:45: Sodium 140, Potassium 4.3, Chloride 112 H, Carbon Dioxide 23.0, Anion Gap 5, BUN 24 H, Creatinine 0.79, Estim Creat Clear Calc 47.79, Est GFR (MDRD) Af Amer 94, Est GFR (MDRD) Non-Af 78, BUN/Creatinine Ratio 30.5 H, Glucose 96, Calcium 8.4 L, Magnesium 1.6 Micro: Microbiology 01/01/23 03:15 Urine, Random Urine Culture - Final Presumptive E. coli Physical Exam Narrative GENERAL: cooperative HEENT: Atraumatic; normocephalic EYES; Anicteric, Normal Conjunctiva NECK; supple, normal thyroid, RESPIRATORY: Diminished to auscultation CARDIOVASCULAR: Regular S1 S2, GI: soft, normoactive bowel sounds, : No Renal angle tenderness; EXTREMITIES: No edema, no clubbing, MUSCULOSKELETAL: no muscle wasting NEURO: Awake; no lateralizing signs. SKIN: No Rash PSYCH; Flat affect Assessment & Plan Assessment/Plan (1) Non-STEMI (non-ST elevated myocardial infarction): (2) Chest pain: (3) Acute deep vein thrombosis of right lower extremity: (4) Chronic deep vein thrombosis (DVT) of left lower extremity: (5) Decubitus ulcer of right heel, stage 3: (6) Decubitus ulcer of left heel, stage 1: (7) Elevated troponin: PLAN: Plan Patient is a 67-year-old lady with multiple comorbidities including recent diagnosis of bilateral lower extremity DVT presented to the emergency department with shortness of breath. Hospital stay complicated by UTI as well as recurrent C. difficile colitis 1. Acute hypoxia ? CTA of the chest was negative for pulmonary embolism patient was however found to have some bronchial wall thickening in the right lower lobe consistent with reactive airway disease versus infectious bronchiolitis 2. Acute bilateral DVTs ? Patient is on Eliquis currently being observed for epistaxis if patient has recurrent epistaxis plan will be to consult vascular surgery for IVC filter placement 3. ESBL urinary tract infection ? Patient was prescribed fosfomycin with consultation placed to ID 4. Recurrent C. difficile colitis ? Case was discussed with GI Dr. Friend recommended for patient to be placed on vancomycin 125 mg p.o. twice daily 5. Right lower extremity wound ? Patient is followed by podiatry. Wound cultures from 12/27/2022 grew MRSA and Pseudomonas. Subsequent antibiotic therapy deferred to infectious disease 6. Elevated troponin ? Secondary to demand ischemia acute non-STEMI type II ruled out 7. Severe malnutrition ? Related to no appetite and inadequate energy intake as evidenced by 9.3% unintentional wt loss and po intake meeting <75% of est nutritional needs x 5 months Will liberalize diet to Regular d/t signs and symptoms of malnutrition Will order 4 oz glucerna shake 4x/day w/ medpass; Will notify dietary that pt would like soft and bite size consistency d/t edentulous. Time spent in the patient's overall evaluation,decision-making process, review of diagnostic data, adjustment of management, discussion with other providers, nursing nursing and ancillary staff involved in patient's care documentation, 35 minutes Charges/Coding Visit Charges Inpatient E&M: 79115 Subs Hosp L2
[2023-01-03] MEDS: Cholecalciferol (VIT D3) 25 MCG TABLET (1,000 UNITS) 50 MCG PO (10:21)
[2023-01-03] MEDS: Aspirin E.C. 81 MG Tablet PO (10:21)
[2023-01-03] MEDS: Pantoprazole Sodium 40 MG Tablet PO (10:21)
[2023-01-03] MEDS: Juven (unflavored) Packet 1 PACKET PO (10:21)
[2023-01-03] MEDS: APIXABAN 5 MG TABLET 10 MG PO (10:22)
[2023-01-03] MEDS: Folic Acid 1 MG Tablet PO (10:22)
[2023-01-03] MEDS: sulfaSALAzine 500 MG Tablet PO (10:22)
[2023-01-03] MEDS: Budesonide 3 MG CAPSULE.EC 9 MG PO (10:22)
[2023-01-03 10:23] VITALS: BP 175/68; PULSE 64; RESP 18; TEMP 36.7; O2SAT 96
[2023-01-03] MEDS: Nystatin Powder 15gm Bottle 1 APPLIC TOPICAL (10:23)
[2023-01-03] MEDS: Menthol/Lanolin/Calamine/Znox 113 GM Tube 1 APPLIC TOPICAL (10:23)
[2023-01-03] MEDS: Glucerna Shake 120 ML LIQUID PO (10:24)
[2023-01-03 10:25] VITALS: PULSE 64
[2023-01-03] MEDS: Diphenoxylate/Atrop 1 Tablet 2 TABLET PO (10:27)
--- NOTE | 2023-01-03 10:48 | DS.PCM_ITS ---
Providers Date of Admission: 12/31/22 Primary Care Physician: Dr. 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 Comment: Reason for Consult:: RLE wound 01/01/23 15:40 Consult: Infectious Disease Routine Consulting Provider: Kentrell Iqbal Reason for Consult: Current UTI, hx ESBL UTI, hx recurrent cdiff EMERGENT Consult: No MD Notified: Yes Date Notified: 01/02/23 Time Notified: 05:06 Method of Notification: Answering Service Reason For Visit: NON-STEMI Diagnosis Discharge Diagnosis (1) Acute deep vein thrombosis of right lower extremity: Status: Acute Code(s): I82.401 - Acute embolism and thrombosis of unspecified deep veins of right lower extremity (2) Chronic deep vein thrombosis (DVT) of left lower extremity: Status: Chronic Code(s): I82.502 - Chronic embolism and thrombosis of unspecified deep veins of left lower extremity (3) Decubitus ulcer of right heel, stage 3: Status: Acute Code(s): L89.613 - Pressure ulcer of right heel, stage 3 (4) Decubitus ulcer of left heel, stage 1: Status: Acute Code(s): L89.621 - Pressure ulcer of left heel, stage 1 Plan Patient is a 67-year-old lady with multiple comorbidities including recent diagnosis of bilateral lower extremity DVT presented to the emergency department with shortness of breath. Hospital stay complicated by UTI as well as recurrent C. difficile colitis 1. Acute hypoxia ? CTA of the chest was negative for pulmonary embolism patient was however found to have some bronchial wall thickening in the right lower lobe consistent with reactive airway disease versus infectious bronchiolitis 2. Acute bilateral DVTs ? Patient is on Eliquis currently being observed for epistaxis if patient has recurrent epistaxis plan will be to consult vascular surgery for IVC filter placement 3. ESBL urinary tract infection ? Patient was prescribed fosfomycin with consultation placed to ID ? Patient final urine culture did demonstrate low urinary count decision was therefore made to treat 4. Recurrent C. difficile colitis ? Case was discussed with GI DrJaun Melissa recommended for patient to be placed on vancomycin 125 mg p.o. twice daily 5. Right lower extremity wound ? Patient is followed by podiatry. Wound cultures from 12/27/2022 grew MRSA and Pseudomonas. Subsequent antibiotic therapy deferred to infectious disease ? Case was discussed with Dr. Iqbal with infectious disease since patient foot did not look infected decision was made not to treat 6. Elevated troponin ? Secondary to demand ischemia acute non-STEMI type II ruled out 7. Severe malnutrition ? Related to no appetite and inadequate energy intake as evidenced by 9.3% un intentional wt loss and po intake meeting <75% of est nutritional needs x 5 months Will liberalize diet to Regular d/t signs and symptoms of malnutrition Will order 4 oz glucerna shake 4x/day w/ medpass; Will notify dietary that pt would like soft and bite size consistency d/t edentulous. Time spent in the patient's overall evaluation,decision-making process, review of diagnostic data, adjustment of management, discussion with other providers, nursing nursing and ancillary staff involved in patient's care documentation, 35 minutes Medications at Discharge Home Medications albuterol sulfate 90 mcg/actuation aerosol inhaler (Ventolin HFA) 1 puff inhalation Q4H PRN PRN SHORTNESS OF BREATH #0 grams 03/25/21 ondansetron 4 mg disintegrating tablet 4 mg PO Q6H PRN PRN NAUSEA #0 tabs 03/25/21 tramadol 50 mg tablet 50 mg PO Q6H PRN Pain 05/18/21 acidophilus 25 million cell-pectin, citrus 100 mg tablet 1 tab PO BID probiotic 08/31/21 cholecalciferol (vitamin D3) 50 mcg (2,000 unit) capsule 2,000 unit PO DAILY supplement 08/31/21 hydrocortisone 2.5 % topical cream with perineal applicator 1 applic NE QD-BID PRN Fissure #30 grams 09/07/21 Db 7 2 cap PO.IVFORM Q8 blood sugar 12/16/21 budesonide 3 mg capsule,delayed,extended release 9 mg PO DAILY #90 ea 03/08/22 folic acid 1 mg tablet 1 mg PO DAILY #30 tabs 03/08/22 sulfasalazine 500 mg tablet 500 mg PO BID stomach 08/28/22 acetaminophen 325 mg tablet 975 mg PO TID PRN Pain 03/04/23 alpha lipoic acid 600 mg tablet 600 mg PO Q24H fissure 12/31/22 ascorbic acid (vitamin C) 1,000 mg capsule 1 g PO DAILY 12/31/22 benzocaine 10 % mucosal gel 1 applic mucous membrane QHS 12/31/22 chromium 1,000 mcg tablet 100 mcg PO DAILY 12/31/22 cranberry extract-vitamin C 250 mg-60 mg capsule 1 cap PO DAILY supplement 12/31/22 cyclobenzaprine 5 mg tablet 5 mg PO PRN PRN Muscle Spasms 12/31/22 loperamide 2 mg capsule 2 mg PO TID diarrhea 12/31/22 pantoprazole 40 mg tablet,delayed release 40 mg PO BIDCM GERD 12/31/22 sulfasalazine 500 mg tablet diarrhea 12/31/22 arginine 7 gram-glutam 7 gram-CaHMB 1.5 eluh-urcmk-in-min oral pwd pkt (Alfredo (with collagen)) 1 packet PO BIDCM wound healing 01/01/23 menthol 0.44 %-zinc oxide 20.6 % topical ointment (Calmoseptine) 1 applic topical BID skin protectant 01/01/23 metoclopramide HCl 5 mg tablet (Reglan) 5 mg PO BID stomach 01/01/23 nystatin 100,000 unit/gram topical powder (Nyamyc) 1 applic topical TID skin irritation 01/01/23 apixaban 5 mg tablet (Eliquis) 5 mg PO BID #120 tabs 01/03/23 Hospital Course Summary of Care Provided Minutes Spent on Discharge: 35 Physical Exam Narrative GENERAL: cooperative HEENT: Atraumatic; normocephalic EYES; Anicteric, Normal Conjunctiva NECK; supple, normal thyroid, RESPIRATORY: Diminished to auscultation CARDIOVASCULAR: Regular S1 S2, GI: soft, normoactive bowel sounds, : No Renal angle tenderness; EXTREMITIES: No edema, no clubbing, MUSCULOSKELETAL: no muscle wasting NEURO: Awake; no lateralizing signs. SKIN: No Rash PSYCH; Flat affect Medical Records Data Medical Nutrition Assessment Dietitian: Malnutrition Criteria Met Start: 12/31/22 12:30 Freq: Status: Active Protocol: Document 12/31/22 12:30 SLA (Rec: 12/31/22 12:30 [facility] [id number]) Nutrition Malnutrition Evidence of Malnutrition Exists Yes Malnutrition (severe): Chronic Evidenced By Suboptimal Energy Intake ( Severe),Weight Loss (Severe) Clinical Problem Chronic Disease or Condition Related Malnutrition Etiology related to no appetite and inadequate energy intake Signs/Symptoms as evidenced by 9.3% unintentional wt loss and po intake meeting <75% of est nutritional needs x 5 months 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 Problem 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 Dietitian 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s/Changes Will liberalize diet to Regular d/t signs and symptoms of malnutrition Will order 4 oz glucerna shake 4x/day w/ medpass Will notify dietary that pt would like soft and bite size consistency d/t edentulous Weight / BMI Weight Weight: 66.6 kg Body Mass Index (BMI) 25.2 ABG / Lab / Microbiology Data Result Diagrams: 01/03/23 05:45 01/03/23 05:45 Laboratory: Laboratory Results - last 24 hr 01/02/23 04:58: ESR 45 H 01/02/23 04:58: Sodium 140, Potassium 4.3, Chloride 113 H, Carbon Dioxide 21.0, Anion Gap 6, BUN 16, Creatinine 0.84, Estim Creat Clear Calc 56.89, Est GFR (MDRD) Af Amer 87, Est GFR (MDRD) Non-Af 72, BUN/Creatinine Ratio 19.1, Glucose 119 H, Calcium 7.9 L, Total Bilirubin 0.20, AST 15, ALT 10 L, Alkaline Phosphata se 87, C-React Prot Ext Range 31.80 H, Total Protein 6.6, Albumin 2.0 L, Globulin 4.6 H, Albumin/Globulin Ratio 0.4 L 01/03/23 05:45: WBC 10.9, RBC 3.05 L, Hgb 9.4 L, Hct 30.5 L, MCV 100.0 H, MCH 30.8, MCHC 30.8 L, RDW Std Deviation 49.0 H, RDW Coeff of Xin 13.2, Plt Count 316, MPV 10.5, Immature Gran % (Auto) 0.500, Neut % (Auto) 42.9 L, Lymph % (Auto) 35.5, [place] % (Auto) 7.5, Eos % (Auto) 12.7 H, Baso % (Auto) 0.9, Absolute Neuts (auto) 4.7, Absolute Lymphs (auto) 3.87, Nucleated RBC % 0 01/03/23 05:45: Sodium 140, Potassium 4.3, Chloride 112 H, Carbon Dioxide 23.0, Anion Gap 5, BUN 24 H, Creatinine 0.79, Estim Creat Clear Calc 47.79, Est GFR (MDRD) Af Amer 94, Est GFR (MDRD) Non-Af 78, BUN/Creatinine Ratio 30.5 H, Glucose 96, Calcium 8.4 L, Magnesium 1.6 Microbiology: Microbiology 12/31/22 17:39 Blood Culture (Wb) - Anticubital Right Blood Culture - Preliminary No growth in 48 hours. 12/31/22 17:29 Blood Culture (Wb) - Left Wrist Blood Culture - Preliminary No growth in 48 hours. 01/01/23 03:15 Urine, Random Urine Culture - Final Presumptive E. coli D/C Instructions Discharge Diet: No restrictions Discharge Activity: Return to Normal Activity Call your doctor if you observe: Fever of 101 or Higher, Shortness of breath, Fainting spells and Chest pain Meaningful Use Info Meaningful Use Diagnoses (Choose all that apply): None applicable Discharge Plan Admission Admit Date/Time: 12/31/22 04:10 Attending Provider: Rachid Vega Primary Care Provider: Cody Billings Consulting Providers: Elías Vega ; Celio Evans ; Kentrell Iqbal ; Sara Horton Discharge Orders/Prescriptions Prescriptions: New Eliquis 5 mg Tablet 5 mg PO BID Qty: 120 0RF Continued budesonide 3 mg capsule,delayed,extend.release 9 mg PO DAILY Qty: 90 3RF folic acid 1 mg tablet 1 mg PO DAILY Qty: 30 2RF albuterol sulfate [Ventolin HFA] 90 mcg/actuation Hfa Aerosol Inhaler 1 puff inhalation Q4H PRN PRN (Reason: SHORTNESS OF BREATH) Qty: 0 0RF ondansetron 4 mg Tablet,Disintegrating 4 mg PO Q6H PRN PRN (Reason: NAUSEA) Qty: 0 0RF tramadol 50 mg Tablet 50 mg PO Q6H PRN (Reason: Pain) cholecalciferol (vitamin D3) 50 mcg (2,000 unit) Capsule 2,000 unit PO DAILY acidophilus-pectin, citrus 25 million cell -100 mg tablet 1 tab PO BID Db 7 2 cap PO.IVFORM Q8 Rx Instructions: diabetic mediaction sulfasalazine 500 mg tablet 500 mg PO BID benzocaine 10 % Gel 1 applic MUCOUS MEMBRANE QHS chromium 1,000 mcg Tablet 100 mcg PO DAILY cyclobenzaprine 5 mg Tablet 5 mg PO PRN PRN (Reason: Muscle Spasms) ascorbic acid (vitamin C) 1,000 mg Capsule 1 g PO DAILY acetaminophen 325 mg Tablet 975 mg PO TID PRN (Reason: Pain) sulfasalazine 500 mg tablet Label Comments: TAKE 1 TABLET BY MOUTH TWICE A DAY WITH FOOD loperamide 2 mg Capsule 2 mg PO TID cranberry extract-vitamin C 250-60 mg Capsule 1 cap PO DAILY alpha lipoic acid 600 mg Tablet 600 mg PO Q24H pantoprazole 40 mg tablet,delayed release (DR/EC) 40 mg PO BIDCM metoclopramide HCl [Reglan] 5 mg tablet 5 mg PO BID nystatin [Nyamyc] 100,000 unit/gram powder 1 applic topical TID Protocol: *Topical Application Instructions APPLICATION INSTRUCTIONS: Apply to affected areas menthol-zinc oxide [Calmoseptine] 0.44-20.6 % ointment 1 applic topical BID Protocol: *Topical Application Instructions APPLICATION INSTRUCTIONS: Apply to bilateral buttocks Alfredo (with collagen) 7-7-1.5 gram powder in packet 1 packet PO BIDCM hydrocortisone 2.5 % cream with perineal applicator 1 applic NE QD-BID PRN (Reason: Fissure) Qty: 30 3RF Discontinued insulin lispro [Humalog U-100 Insulin] 100 unit/mL solution Label Comments: PLEASE SEE ATTACHED FOR DETAILED DIRECTIONS Xarelto 20 mg tablet 20 mg PO DAILY Label Comments: TAKE 1 TABLET (20 MG TOTAL) BY MOUTH DAILY WITH DINNER FOR 30 DAYS. Referrals / Follow Up: Cody Billings MD [Primary Care Provider] - Within 1 Week Celio Evans DPM [Med Staff - Active Staff] - Within 1 Week Disposition Disposition (needs filled in before D/C Order can be placed): Home Health Service Charges/Coding Visit Charges Inpatient E&M: 02708 Disch Hosp >30min
--- NOTE | 2023-01-03 11:30 | CASEMGMT ---
CINDI BLOUNT in to discuss discharge needs with patient. Patient wishes to discharge home with resumption of [facility] for correction. Patient is being discharged on Eliquis, CINDI BLOUNT called [facility] and copay is $228.08, savings card applied and no cost for patient today. CINDI BLOUNT updated patient and told her to follow up with PCP is she is not able to afford cost of refill. Patient also provided prescription saving information from . Patient states she is working on getting ride for home. Patient had no further questions or concerns at this time.
--- NOTE | 2023-01-03 14:56 | CHAPLAIN ---
Type of Pastoral Visit ___ Initial Visit _x__ Follow-up Visit ___ On-call Visit ___ General Patient Visit ___ Spiritual Assessment ___ Family Conference ___ Bereavement ___ Rapid Response ___ Code Blue ___ Other (describe below) Pastoral Care Referral From _x__ Patient ___ Family ___ Nurse ___ Physician ___ Scaffolder ___ Application Engineer ___ Other (describe below) Sacrament/Intervention _x__ Active listening ___ Anointing ___ Adventist ___ Bereavement ___ Communion _x__ Dang exploration ___ _x__ Life review _x__ Prayer ___ Reconciliation ___ Sacrament of Sick _x__ Supportive presence ___ Wedding ___ Other (describe below) Pastoral Comments patient speaks more about her home situation and relationship with an ex ; pt youngest daughter is getting in April and moving out so pt will be alone; pt has transportation issues which are being addressed before she can go home; pt given time to talk and express feelings; pt also using dang for her concerns; prayer welcomed
[2023-01-03 16:20] VITALS: BP 143/83; PULSE 71; RESP 18; TEMP 36.4; O2SAT 97
== END 2023-01-03 16:38 | disposition home health service (06) | DRG 299 ==
LOC: ED 03:57 → PCU 04:50
PROVIDERS: Internal Medicine; Admitting Provider Hospitalist; Emergency Provider Emergency Medicine; PCP Family Medicine; Visit Provider Internal Medicine
DX: I82.411 Acute embolism and thrombosis of right femoral vein (principal); L89.613 Pressure ulcer of right heel, stage 3; E43 Unspecified severe protein-calorie malnutrition; A04.71 Enterocolitis due to Clostridium difficile, recurrent; I24.8 Other forms of acute ischemic heart disease; N39.0 Urinary tract infection, site not specified; J21.9 Acute bronchiolitis, unspecified; Z16.12 Extended spectrum beta lactamase (ESBL) resistance; I82.431 Acute embolism and thrombosis of right popliteal vein; E11.42 Type 2 diabetes mellitus with diabetic polyneuropathy; B96.20 Unspecified Escherichia coli [E. coli] as the cause of diseases classified elsewhere; I82.451 Acute embolism and thrombosis of right peroneal vein; I82.441 Acute embolism and thrombosis of right tibial vein; I82.512 Chronic embolism and thrombosis of left femoral vein; I82.532 Chronic embolism and thrombosis of left popliteal vein; I82.552 Chronic embolism and thrombosis of left peroneal vein; I82.542 Chronic embolism and thrombosis of left tibial vein; E11.65 Type 2 diabetes mellitus with hyperglycemia; Z89.422 Acquired absence of other left toe(s); L89.621 Pressure ulcer of left heel, stage 1; J45.909 Unspecified asthma, uncomplicated; I25.2 Old myocardial infarction; R09.02 Hypoxemia; Z68.25 Body mass index [BMI] 25.0-25.9, adult; Z79.01 Long term (current) use of anticoagulants; Z79.51 Long term (current) use of inhaled steroids; Z79.82 Long term (current) use of aspirin; Z79.84 Long term (current) use of oral hypoglycemic drugs; Z79.899 Other long term (current) drug therapy
CPT/HCPCS: 36415; 71275; 78452; 80048; 80053; 80061; 81001; 83605; 83735; 84145; 84484; 85025; 85610; 85652; 85730; 86140; 87040; 87077; 87086; 87088; 87186; 93005; 93017; 93306; 97162; 97166; 97802; 99285; A9500; J7030; J7040; Q9967; A4216; J2405; J2785

== ENCOUNTER → 2023-02-07 | Outpatient (CLI) | payer MEDICARE, OTHER, SELFPAY | END | disposition home or self-care (01) | PROVIDERS: PCP Family Medicine; Visit Provider Podiatrist | DX: L97.512 Non-pressure chronic ulcer of other part of right foot with fat layer exposed (principal) | CPT/HCPCS: 87070; 87077; 87186; 87205 ==

== ENCOUNTER 2023-04-10 17:51 | Inpatient (IN) | payer MEDICARE, OTHER, SELFPAY ==
[2023-04-10 17:53] VITALS: BP 179/87; PULSE 72; RESP 18; TEMP 36.5; O2SAT 99; BMI 25.0
--- NOTE | 2023-04-10 18:05 | ED.RN ---
Patient started moaning and then turned her head and closed her eyes. Patient quickly responded to her Zulay. Per dght patient has been forgetful and asking for her who is .
--- NOTE | 2023-04-10 18:16 | EDS_ITS ---
HPI History of Present Illness Chief Complaint: Syncope Narrative Narrative: Patient presents with an episode where she was quite confused at home, she did not know her name she also had a severe headache at that time. When she arrived to the ED per nurse triaged her she was lucid and coherent and then I got called to the room that the patient was screaming in pain of a severe headache. When I saw her she was complaining of a headache however she was lucid and coherent. No fevers or chills no neck pain. 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 Ulcer of amputation stump of foot Wound of left foot Home Medications albuterol sulfate 90 mcg/actuation aerosol inhaler (Ventolin HFA) 1 puff inhalation Q4H PRN PRN SHORTNESS OF BREATH #0 grams 03/25/21 [Rx Last Taken Unknown] ondansetron 4 mg disintegrating tablet 4 mg PO Q6H PRN PRN NAUSEA #0 tabs 03/25/21 [Rx Last Taken Unknown] tramadol 50 mg tablet 50 mg PO Q6H PRN Pain 05/18/21 [History Last Taken Unknown] acetaminophen 325 mg tablet 975 mg PO TID PRN Pain 12/31/22 [History Last Taken Unknown] apixaban 5 mg tablet (Eliquis) 5 mg PO BID #120 tabs 01/03/23 [Rx Last Taken Unknown] folic acid 1 mg tablet 1 mg PO DAILY #30 tabs 02/15/23 [Rx Last Taken Unknown] sulfasalazine 500 mg tablet 1 g PO BID #120 tabs 02/15/23 [Rx Last Taken Unknown] Lactobacillus rhamnosus GG 10 billion cell capsule (Culturelle) 1 cap PO DAILY G[facility] 04/10/23 [History Last Taken 04/09/23] cholecalciferol (vitamin D3) 125 mcg (5,000 unit) tablet 125 mcg PO DAILY SUPPLEMENT 04/10/23 [History Last Taken 04/09/23] diphenoxylate-atropine 2.5 mg-0.025 mg tablet 1 tab PO BID DIARRHEA 04/10/23 [History Last Taken 04/10/23] pantoprazole 40 mg tablet,delayed release 40 mg PO DAILY GERD 04/10/23 [History Last Taken 04/10/23] Allergy/AdvReac Type Severity Reaction Status Date / Time cefprozil Allergy Shortness Verified 12/31/22 00:58 of breath ceftriaxone Allergy Hives Verified 12/31/22 00:58 clindamycin Allergy Rash Verified 12/31/22 00:58 enalapril Allergy Other Verified 12/31/22 00:58 enoxaparin Allergy Rash Verified 12/31/22 00:58 heparin Allergy Rash Verified 12/31/22 00:58 levalbuterol Allergy Other Verified 12/31/22 00:58 morphine Allergy Shortness Verified 12/31/22 00:58 of breath Penicillins Allergy Anaphylaxis Verified 12/31/22 00:58 shellfish derived Allergy Anaphylaxis Verified 12/31/22 00:58 valsartan Allergy Other Verified 12/31/22 00:58 vancomycin Allergy Rash Verified 12/31/22 00:58 Family History Mother Cancer Lung CA w/ tobacco use history. Diabetes COPD (chronic obstructive pulmonary disease) Father Cancer Lung CA w/ tobacco use history. Diabetes COPD (chronic obstructive pulmonary disease) Heart disease Surgical History History of appendectomy History of eye surgery History of foot surgery History of lumpectomy History of tubal ligation Status post transmetatarsal amputation of left foot Tubal ligation status Social History household members: none Smoking Status: Never smoker alcohol intake: never substance use type: does not use ROS ROS ED ROS Narrative Past medical history: Reviewed Medications: Reviewed Social history: Noncontributory Review of systems: All systems negative except as indicated General: No fever Eyes: No visual changes ENT: No upper airway congestion, normal voice Neck: No neck pain Cardiovascular: No chest pain Respiratory: No shortness of breath or cough Gastrointestinal: No abdominal pain, nausea vomiting or diarrhea Genitourinary: No dysuria Musculoskeletal: Denies myalgias no difficulty with ambulation Skin: No rash Neurological: As in HPI EXAM Physical Exam Narrative Exam Narrative: Physical exam General: Initially patient appeared in distress Head: Normocephalic, Atraumatic Eyes: Conjunctiva not pale ENT: Moist mucous membranes Neck: Supple, Nontender, No lymphadenopathy Cardiovascular: Regular rate, Regular rhythm Respiratory: No distress, CTA bilaterally Abdomen: Soft, Nontender, Nondistended Back: Nontender, Normal Inspection. Negative for: CVA tenderness Extremities: Nontender, No edema Skin: Normal color, No rash Neurological: Alert, Normal Strength, Normal Sensation Const Vital Signs: 04/10/23 17:53 Temperature 97.7 F L Temperature Source Temporal Pulse Rate 72 Respiratory Rate 18 Blood Pressure 179/87 H Blood Pressure Mean 117 Pulse Ox 99 Oxygen Delivery Method Room Air MDM MDM MDM Narrative Medical decision making narrative: With her confusion I did think about a stroke however her NIH was 0 when I saw her therefore stroke team was not activated. I thought about seizures but she did not have seizure-like activity and she had a normal lactic acid. I thought about subarachnoid hemorrhage however she presented within 2 hours of her headache and she has a negative CT and she appears well otherwise. I worked her up including electrolytes and a CBC and her work-up is unremarkable I gave her analgesics. I talked to her and her older sister who gave me some of the history of present illness. At this time patient will need an MRI and MRA. She is not lucid coherent and she has no headache. She appears well. I talked to the hospitalist for admission Interpretation by ED physician Telemetry: Sinus rhythm on the monitor with a rate in the 70s without ectopy Lab Data Labs: Laboratory Results - last 24 hr 04/10/23 04/10/23 04/10/23 18:43 18:43 18:43 WBC 11.1 H RBC 3.53 L Hgb 11.3 L Hct 33.8 L MCV 95.8 MCH 32.0 MCHC 33.4 RDW Std Deviation 45.2 H RDW Coeff of Xin 12.9 Plt Count 233 MPV 10.1 Immature Gran % (Auto) 0.200 Neut % (Auto) 51.1 Lymph % (Auto) 37.2 [place] % (Auto) 5.3 Eos % (Auto) 5.0 Baso % (Auto) 1.2 H Absolute Neuts (auto) 5.7 Absolute Lymphs (auto) 4.12 Nucleated RBC % 0 Sodium 137 Potassium 4.3 Chloride 110 H Carbon Dioxide 21.0 Anion Gap 6 BUN 13 Creatinine 1.36 H Estim Creat Clear Calc 34.66 Est GFR (MDRD) Af Amer 50 L Est GFR (MDRD) Non-Af 41 L BUN/Creatinine Ratio 9.6 L Glucose 119 H Lactic Acid 0.9 Calcium 8.7 Total Bilirubin 0.50 AST 26 ALT 28 Alkaline Phosphatase 148 H Total Protein 8.3 H Albumin 2.8 L Globulin 5.5 H Albumin/Globulin Ratio 0.5 L Radiography Diagnostic Testing: Clinical Impression(s) from Imaging Studies Brain CT 04/10/23 18:22 IMPRESSION: No acute intracranial or calvarial abnormality. No major interval change. AIDOC was utilized to assist in identifying pertinent positive findings in this case. Electronically Signed: Henrik Mederos DO at 18:38 EDT Reading Location ID and State: [facility] / [place] Tel [phone], Service support , Cervical Spine CT 04/10/23 18:22 IMPRESSION: Degenerative changes cervical spine without acute fracture or subluxation. Note: MRI is more sensitive than CT in detecting cord injury, ligamentous injury and epidural hematoma. If there is continued clinical concern for any of these entities, MRI should be considered. AIDOC was utilized to assist in identifying pertinent positive findings in this case. Electronically Signed: Henrik Mederos DO at 18:42 EDT Reading Location ID and State: [facility] / [place] Tel [phone], Service support , Discharge Plan Triage Chief Complaint: Syncope ED Provider: Rogers Rees Dx/Rx/DC Orders Clinical Impression: Acute confusion, Headache, Acute neck pain Prescriptions: No Action sulfasalazine 500 mg tablet 1 g PO BID budesonide 3 mg capsule,delayed,extend.release 9 mg PO DAILY Qty: 90 3RF folic acid 1 mg tablet 1 mg PO DAILY Qty: 30 11RF sulfasalazine 500 mg tablet 1 g PO BID Qty: 120 11RF Rx Instructions: give with food (meal/snack); take with folic acid albuterol sulfate [Ventolin HFA] 90 mcg/actuation Hfa Aerosol Inhaler 1 puff inhalation Q4H PRN PRN (Reason: SHORTNESS OF BREATH) Qty: 0 0RF ondansetron 4 mg Tablet,Disintegrating 4 mg PO Q6H PRN PRN (Reason: NAUSEA) Qty: 0 0RF tramadol 50 mg Tablet 50 mg PO Q6H PRN (Reason: Pain) acetaminophen 325 mg Tablet 975 mg PO TID PRN (Reason: Pain) Alfredo (with collagen) 7-7-1.5 gram powder in packet 1 packet PO BIDCM Eliquis 5 mg Tablet 5 mg PO BID Qty: 120 0RF Primary Care Provider: Cody Billings Referrals: Cody Billings MD [Primary Care Provider] - Disposition Disposition: Acute Care Hospital [facility]
[2023-04-10] MEDS: HYDROmorphone 0.5 MG/0.5 ML SYRINGE IV (18:18)
[2023-04-10] MEDS: Ondansetron 4 MG/2 ML Vial IV (18:18)
--- NOTE | 2023-04-10 18:22 | CT_ITS ---
STUDY: CT BRAIN WITHOUT CONTRAST REASON FOR EXAM: Female, 68 years old. Trauma. RADIATION DOSAGE (If Supplied By Facility): CTDIvol = ( 44.99 ) mGy, DLP = ( 832.67 ) mGycm TECHNIQUE: Transaxial CT imaging of the brain was performed without administration of intravenous contrast material. Individualized dose optimization techniques were used for this CT. COMPARISON: March 04, 2021 FINDINGS: Normal soft tissue structures. Normal calvarium there is a bony growth arising from the midline skull in the region of the citlaly estelle. This appears irregular in contour. This is stable in size and appearance from the previous study suggesting a benign finding.. Normal size ventricles and extra-axial spaces for the patient''s age. Normal white matter tracts of the cerebral hemispheres. Normal basal ganglia and thalami. Normal brainstem. Normal cerebellum. There is no intracranial hemorrhage. There are no findings of an acute ischemic infarction. Normal visualized paranasal sinuses. CT/Brain/Head without Contrast IMPRESSION: No acute intracranial or calvarial abnormality. No major interval change. AIDOC was utilized to assist in identifying pertinent positive findings in this case. Electronically Signed: Henrik Mederos DO at 18:38 EDT ,
--- NOTE | 2023-04-10 18:22 | CT_ITS ---
STUDY: CT CERVICAL SPINE WITHOUT CONTRAST REASON FOR EXAM: Female, 68 years old. Trauma RADIATION DOSAGE (If Supplied By Facility): CTDIvol = ( 13.61 ) mGy, DLP = ( 282.93 ) mGycm TECHNIQUE: High resolution transaxial imaging was performed without contrast material. Sagittal and coronal images were reconstructed. Individualized dose optimization techniques were used for this CT. COMPARISON: None FINDINGS: Normal craniovertebral junction. There are degenerative changes of the anterior atlantoaxial articulation. Normal odontoid process. Normal cervical lordosis. Normal vertebral bodies and posterior osseous elements. C2-3: Normal endplates. Normal disc height and morphology. Minimal facet degenerative change. Normal central canal and intervertebral neuroforamina. C3-4: Normal endplates. Normal disc height and morphology. Mild facet joint degenerative change. Normal central canal and intervertebral neuroforamina. C4-5: Normal endplates. Normal disc height and morphology. Facet joint degenerative change. Normal central canal and intervertebral neuroforamina. C5-6: Endplate spondylosis with loss of disc height and bulging annulus. Facet and uncovertebral joint degenerative change. Normal central canal. Narrowing of the bilateral intervertebral neuroforamina. C6-7: Endplate spondylosis. Loss of disc height with mild bulging annulus. Facet joint degenerative change. Normal central canal and intervertebral neuroforamina. C7-T1: Normal endplates. Normal disc height and morphology. Normal central canal and intervertebral neuroforamina. Carotid artery calcifications. CT/Spine Cervical without Contras IMPRESSION: Degenerative changes cervical spine without acute fracture or subluxation. Note: MRI is more sensitive than CT in detecting cord injury, ligamentous injury and epidural hematoma. If there is continued clinical concern for any of these entities, MRI should be considered. AIDOC was utilized to assist in identifying pertinent positive findings in this case. Electronically Signed: Henrik Mederos DO at 18:42 EDT Reading Location ID and State: [address] [place] [address] Tel [phone], Service support ,
[2023-04-10 18:56] LABS: Absolute Lymphocyte Count 4.12 X10^3/uL (0.83-4.51); Absolute Neutrophil Count 5.7 X10^3/uL (2.0-7.7); Basophil# 0.13 X10^3/uL; Basophil% 1.2 % (0-1); Eosinophil# 0.56 X10^3/uL; Hematocrit 33.8 % (37-47); Hemoglobin 11.3 g/dL (12.0-15.0); Lymphocyte # 4.12 X10^3/ul (0.83-4.51); Lymphocyte % 37.2 % (19-41); Mean Corp Hgb Conc 33.4 g/dL (32-36); Mean Corpuscular Volume 95.8 fL (81-99); Mean Platelet Vol. 10.1 fl (6.2-12.0); Monocyte# 0.59 X10^3/uL; Monocyte% 5.3 % (0-10); NRBC Flagged by Analyzer 0 % (0-5); Neutrophil # 5.67 X10^3/uL (2.7-7.7); Neutrophil % 51.1 % (47-70); Platelet Count 233 K/mm3 (150-450); RBC Distribution Width CV 12.9 % (11.6-14.6); RBC Distribution Width SD 45.2 fl (35.1-43.9); Red Blood Count 3.53 M/mm3 (4.2-5.4); White Blood Count 11.1 K/mm3 (4.4-11.0)
[2023-04-10 19:13] LABS: ALB/GLOB Ratio 0.5 RATIO (0.9-2.4); AST(SGOT) 26 U/L (15-37); Alanine Aminotransfer ALT/SGPT 28 U/L (13-56); Albumin, Serum 2.8 g/dL (3.2-5.0); Alkaline Phosphatase 148 U/L (45-117); Anion Gap 6 (5-15); BUN 13 mg/dL (7-18); BUN/Creat Ratio 9.6 RATIO (10-20); Calcium,Total 8.7 mg/dL (8.5-10.1); Chloride 110 mmol/L (98-107); Creatinine, Serum 1.36 mg/dL (0.55-1.02); EST Glomerular Filtration Rate 41 mL/min (>60); Est Glom Filt Rate - Afr Amer 50 mL/min (>60); Estimated Creatinine Clearance 34.66 ml/min; Globulin 5.5 g/dL (2.2-4.2); Glucose 119 mg/dL (74-106); Potassium 4.3 mmol/L (3.5-5.1); Protein, Total 8.3 g/dL (6.4-8.2); Sodium Level 137 mmol/L (136-145)
[2023-04-10 19:24] LABS: Lactic Acid 0.9 mmol/L (0.4-1.9)
[2023-04-10 19:49] VITALS: BP 156/73; PULSE 62; RESP 18; TEMP 35.8
--- NOTE | 2023-04-10 19:49 | HP.PCM_ITS ---
HPI - General General Date of Admission: 04/10/23 Date of Service: 04/10/23 Chief Complaint: Syncopal episode HPI Narrative RED PRICE, is a 68 F who presents to the emergency room following a syncopal episode which occurred at home this evening. This was witnessed by her family member Crescencio who I spoke with on the phone while interviewing the patient. He described her as suddenly becoming obtunded slurring her speech and then passed out to the point where he had to catch her from falling to the floor. He the duration of her syncopal episode lasted approximately 1 minute and as she came around she was confused and was unable to recognize who he was. After approximately 5 minutes she was then able to recognize him and was more oriented at her normal baseline. By that time an ambulance had been called and she was transferred to the hospital for further evaluation. A CT scan was done of the head and neck which did not show any acute findings. Laboratory studies were relatively unremarkable. Patient does have a significant past medical history of diabetes and does have a left partial amputation of her foot due to what she says is a spider bite that was complicated by her diabetes. Patient also states she has a history of meningioma in her brain. CT scan did not reveal a mass effect on her current exam. She will be admitted for further evaluation of syncopal episode and possible TIA and will get an MRI MRA in the a.m. [facility] Medical History (Updated 04/10/23 @ 19:[address] 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 Ulcer of amputation stump of foot Wound of left foot Home Medications albuterol sulfate 90 mcg/actuation aerosol inhaler (Ventolin HFA) 1 puff inhalation Q4H PRN PRN SHORTNESS OF BREATH #0 grams 03/25/21 [Rx Last Taken 2 Weeks Ago ~03/27/23] ondansetron 4 mg disintegrating tablet 4 mg PO Q6H PRN PRN NAUSEA #0 tabs [Rx Last Taken 04/10/23] tramadol 50 mg tablet 50 mg PO Q6H PRN Pain 05/18/21 [History Last Taken Unknown] acetaminophen 325 mg tablet 975 mg PO TID PRN Pain 12/31/22 [History Last Taken Unknown] apixaban 5 mg tablet (Eliquis) 5 mg PO BID #120 tabs 01/03/23 [Rx Last Taken 04/09/23] folic acid 1 mg tablet 1 mg PO DAILY #30 tabs 02/15/23 [Rx Last Taken 04/09/23] sulfasalazine 500 mg tablet 1 g PO BID #120 tabs 02/15/23 [Rx Last Taken 04/10/23] Lactobacillus rhamnosus GG 10 billion cell capsule (Culturelle) 1 cap PO DAILY GUT HEALTH 04/10/23 [History Last Taken 04/09/23] cholecalciferol (vitamin D3) 125 mcg (5,000 unit) tablet 125 mcg PO DAILY SUPPLEMENT 04/10/23 [History Last Taken 04/09/23] diphenoxylate-atropine 2.5 mg-0.025 mg tablet 1 tab PO BID DIARRHEA 04/10/23 [History Last Taken 04/10/23] pantoprazole 40 mg tablet,delayed release 40 mg PO DAILY GERD 04/10/23 [History Last Taken 04/10/23] Allergy/AdvReac Type Severity Reaction Status Date / Time cefprozil Allergy Shortness Verified 12/31/22 00:58 of breath ceftriaxone Allergy Hives Verified 12/31/22 00:58 clindamycin Allergy Rash Verified 12/31/22 00:58 enalapril Allergy Other Verified 12/31/22 00:58 enoxaparin Allergy Rash Verified 12/31/22 00:58 heparin Allergy Rash Verified 12/31/22 00:58 levalbuterol Allergy Other Verified 12/31/22 00:58 morphine Allergy Shortness Verified 12/31/22 00:58 of breath Penicillins Allergy Anaphylaxis Verified 12/31/22 00:58 shellfish derived Allergy Anaphylaxis Verified 12/31/22 00:58 valsartan Allergy Other Verified 12/31/22 00:58 vancomycin Allergy Rash Verified 12/31/22 00:58 Family History Mother Cancer Lung CA w/ tobacco use history. Diabetes COPD (chronic obstructive pulmonary disease) Father Cancer Lung CA w/ tobacco use history. Diabetes COPD (chronic obstructive pulmonary disease) Heart disease Surgical History History of appendectomy History of eye surgery History of foot surgery History of lumpectomy History of tubal ligation Status post transmetatarsal amputation of left foot Tubal ligation status Social History household members: none Smoking Status: Never smoker alcohol intake: never substance use type: does not use ROS Constitutional Constitutional: Denies change in weight, chills or fever(s) Eyes Eyes: Denies blurry vision ENT HEENT: Denies abnormal hearing Cardiovascular Cardiovascular: Denies chest pain or palpitations Respiratory/Chest Respiratory/Chest: Denies shortness of breath at rest Gastrointestinal Gastrointestinal: Reports diarrhea; Denies abdominal pain Genitourinary Genitourinary: Denies dysuria Musculoskeletal Musculoskeletal: Denies back pain Integumentary Integumentary: Reports wounds Neurologic Neurologic: Reports abnormal speech and confusion Psychiatric Psychiatric: Denies anxiety Vital Signs Vital Signs Vital Signs: 04/10/23 17:53 Temperature 97.7 F L Temperature Source Temporal Pulse Rate 72 Respiratory Rate 18 Blood Pressure 179/87 H Blood Pressure Mean 117 Pulse Ox 99 Oxygen Delivery Method Room Air Weight Weight: 145 lb 15.136 oz Body Mass Index (BMI) 25.0 Physical Exam Const oriented x3 and no apparent distress General Appearance: cooperative and well developed HEENT normocephalic and head/scalp atraumatic Eyes PERRL and EOMs intact bilaterally Neck No nuchal rigidity and no lymphadenopathy Lymph Lymphatic: no lymphadenopathy noted Resp normal respiratory effort, normal air movement and clear to auscultation bilaterally Effort and Inspection: respiratory distress Cardio regular rate, regular rhythm, S1 normal heart sound and S2 normal heart sound GI normal to inspection, nondistended, normoactive bowel sounds Extremity normal capillary refill Extremity Narrative: Left forefoot amputation with a wrap applied Neuro CN's II-XII intact bilaterally, no focal motor deficits and no sensory deficits noted Speech: speech normal Motor Exam: strength 5/5 throughout Psych thought process normal, cooperative and affect normal Results Lab / Micro Data Result Diagrams: 04/10/23 18:43 04/10/23 18:43 Labs: Laboratory Results - last 24 hr 04/10/23 18:43: WBC 11.1 H, RBC 3.53 L, Hgb 11.3 L, Hct 33.8 L, MCV 95.8, MCH 32.0, MCHC 33.4, RDW Std Deviation 45.2 H, RDW Coeff of Xin 12.9, Plt Count 233, MPV 10.1, Immature Gran % (Auto) 0.200, Neut % (Auto) 51.1, Lymph % (Auto) 37.2, Dunn % (Auto) 5.3, Eos % (Auto) 5.0, Baso % (Auto) 1.2 H, Absolute Neuts (auto) 5.7, Absolute Lymphs (auto) 4.12, Nucleated RBC % 0 04/10/23 18:43: Sodium 137, Potassium 4.3, Chloride 110 H, Carbon Dioxide 21.0, Anion Gap 6, BUN 13, Creatinine 1.36 H, Estim Creat Clear Calc 34.66, Est GFR (MDRD) Af Amer 50 L, Est GFR (MDRD) Non-Af 41 L, BUN/Creatinine Ratio 9.6 L, Glucose 119 H, Calcium 8.7, Total Bilirubin 0.50, AST 26, ALT 28, Alkaline Phosphatase 148 H, Total Protein 8.3 H, Albumin 2.8 L, Globulin 5.5 H, Albumin/Globulin Ratio 0.5 L 04/10/23 18:43: Lactic Acid 0.[address] 04/10/23 18:22 IMPRESSION: No acute intracranial or calvarial abnormality. No major interval change. AIDOC was utilized to assist in identifying pertinent positive findings in this case. Electronically Signed: Henrik Mederos DO at 18:38 EDT Reading Location ID and State: [address] [place] [address] Tel [phone], Service support , Cervical Spine CT 04/10/23 18:22 IMPRESSION: Degenerative changes cervical spine without acute fracture or subluxation. Note: MRI is more sensitive than CT in detecting cord injury, ligamentous injury and epidural hematoma. If there is continued clinical concern for any of these entities, MRI should be considered. AIDOC was utilized to assist in identifying pertinent positive findings in this case. Electronically Signed: Henrik Mederos DO at 18:42 EDT Reading Location ID and State: [address] [place] [address] Tel [phone], Service support , Assessment & Plan Assessment/Plan (1) Diarrhea: (2) History of myocardial infarction: (3) History of cerebrovascular accident: (4) PAD (peripheral artery disease): (5) Debility: (6) Brain tumor (benign): (7) Syncopal episodes: (8) Type 2 diabetes mellitus with diabetic polyneuropathy: QUALIFIERS: Diabetes mellitus longterm insulin use: unspecified longterm insulin use status Qualified Code(s): E11.42 - Type 2 diabetes mellitus with diabetic polyneuropathy PLAN: Plan 1 syncopal episode?admit patient to progressive care unit for observation, initiate neurochecks per routine evaluation and will order MRI MRA of head and neck in the a.m. Patient does have a history of benign brain tumors per her own report. We will add aspirin if not already taking. If those studies are unremarkable and patient remains stable she can be discharged back to home tomorrow 2. Diabetes?continue routine diabetic management will allow patient have a routine diabetic diet 3. Peripheral artery disease with debility and chronic lower extremity wounds?we will have nurse redress wounds on the floor as this is a chronic issue that is managed at home. We will continue routine home medications for her peripheral artery disease 4. DVT prophylaxis?low molecular weight heparin if not already on full anticoagulation Charges/Coding Visit Charges OBSV E&M: 28348 Observ/hosp same date L2
[2023-04-10 20:02] LABS: Mucous, Urine 0 SEEN /hpf (<or=2+); Red Blood Cells-Urine 0 SEEN /hpf (0-5)
[2023-04-10 20:03] LABS: Color, Urine Yellow (Yellow); Glucose, Dipstick Normal (Normal); Ketone-Dipstick Negative (Negative); Leukocyte Esterase-Dipstick 500 /ul (Negative); Nitrite-Dipstick Positive (Negative); Occult Blood-Urine 10 /ul (Negative); Protein-Dipstick 15 mg/dl (Negative); Urine Bilirubin Dipstick Negative (Negative); Urine Clarity Clear (Clear); Urine Urobilinogen Normal (Normal)
--- NOTE | 2023-04-10 20:05 | MRI_ITS ---
EXAM: MR ANGIOGRAPHY NECK WITHOUT INTRAVENOUS CONTRAST CLINICAL INDICATION: Transient ischemic attack TECHNIQUE: Routine carotid MR angiogram protocol was performed without intravenous contrast. 3D reconstructions were reviewed. NASCET criteria using the distal ICAs for comparison were used for evaluation of stenoses. COMPARISON: No relevant prior studies available. FINDINGS: RIGHT COMMON CAROTID ARTERY: Normal. No occlusion or significant stenosis. No dissection. RIGHT INTERNAL CAROTID ARTERY: Normal. Extracranial segment is patent with no occlusion or significant stenosis. No dissection. RIGHT EXTERNAL CAROTID ARTERY: Normal. No occlusion. RIGHT VERTEBRAL ARTERY: Normal. No occlusion or significant stenosis. No dissection. LEFT COMMON CAROTID ARTERY: Normal. No occlusion or significant stenosis. No dissection. LEFT INTERNAL CAROTID ARTERY: Normal. Extracranial segment is patent with no occlusion or significant stenosis. No dissection. LEFT EXTERNAL CAROTID ARTERY: Normal. No occlusion. LEFT VERTEBRAL ARTERY: Normal. No occlusion or significant stenosis. No dissection. GREAT VESSELS OF AORTIC ARCH: Aortic arch and origin of the brachiocephalic vessels not imaged. CAROTID STENOSIS REFERENCE USING NASCET CRITERIA: % ICA stenosis = (1 - narrowest ICA diameter/diameter of distal cervical ICA) x 100. Mild - <50% stenosis. Moderate - 50-69% stenosis. Severe - 70-94% stenosis. Near occlusion - 95-99% stenosis. Occluded - 100% stenosis. MRI/MRA Neck without Contrast IMPRESSION: Normal MRA neck. Electronically Signed: Elie Jensen MD at 12:17 EDT ,
--- NOTE | 2023-04-10 20:05 | MRI_ITS ---
EXAM: MR HEAD WITHOUT INTRAVENOUS CONTRAST CLINICAL INDICATION: Transient ischemic attack TECHNIQUE: Multiplanar and multisequence MR images of the brain were obtained without intravenous contrast. COMPARISON: No relevant prior studies available. FINDINGS: BRAIN AND EXTRA-AXIAL SPACES: 2.2 cm mass involving the planum sphenoid alley again noted unchanged from prior studies consistent with meningioma. Increased T2 signal intensity within the cerebral white matter suggestive of chronic microvascular change. No intra- or extra-axial hemorrhage. No evidence of acute infarct. There is preservation of the torres/white matter interface. Posterior fossa structures are unremarkable. Ventricles are appropriate for age. No hydrocephalus. Basal cisterns are patent. SELLA: Normal. Normal sella turcica, pituitary gland, infundibular stalk, optic chiasm and hypothalamus. AUDITORY SYSTEM: Normal. The internal auditory canals are patent. BONES/JOINTS: Intact calvarium. SINUSES: Mucosal thickening of the paranasal sinuses. MASTOID AIR CELLS: Unremarkable as visualized. Clear. ORBITS: Unremarkable as visualized. Both globes, extraocular muscles, optic nerves and retrobulbar fat appear unremarkable. VASCULATURE: Unremarkable as visualized. Normal flow voids in the major intracranial circulation. MRI/Brain without Contrast IMPRESSION: 1. No acute intracranial abnormality. 2. Stable 2.2 cm meningioma of the planum sphenoidale. Electronically Signed: Elie Jensen MD at 12:13 EDT ,
--- NOTE | 2023-04-10 20:05 | MRI_ITS ---
INDICATION: Transient ischemic attack EXAMINATION: MRA - MRA Head W/O Contrast TECHNIQUE: Routine [place]/brain 3D time of flight MR angiogram protocol was performed without gadolinium. 3D reconstructions were reviewed. IV Contrast Dosage and Agent: None. COMPARISON: None. FINDINGS: --Anterior Circulation: ICAs: No significant stenosis at the intracranial/visualized segments. 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 Left A1 segment perfuses both anterior cerebral arteries. No significant stenosis at the visualized segments. ACOM: Present. MCAs: No significant stenosis at the visualized segments. --Posterior Circulation: PCOMs: Right INNERSOLE MAKER fills via a patent right P-comm. 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 BASILAR ARTERY: No significant stenosis. VERTEBRAL ARTERIES: No significant stenosis at the intradural/visualized segments. No evidence of intracranial aneurysm or vascular malformation. MRI/MRA Head ONLY without Contrast IMPRESSION: No evidence of arterial stenosis or occlusion. Congenital absence of right A1 segment. Electronically Signed: Elie Jensne MD at 12:20 EDT ,
[2023-04-10 20:20] LABS: Bacteria 1+ /hpf (None Seen); Squamous Epithelial Cells - UA 5-10 SEEN /hpf (5-10); White Blood Cells 5-10 SEEN /hpf (0-5)
[2023-04-10 20:38] VITALS: BMI 23.6
[2023-04-10 21:20] VITALS: BP 153/75; PULSE 64; RESP 14; TEMP 36.3; O2SAT 99
[2023-04-10] MEDS: Diphenoxylate/Atrop 1 Tablet PO (21:41)
[2023-04-10] MEDS: APIXABAN 5 MG TABLET PO (21:41)
[2023-04-10] MEDS: Ondansetron ODT 4 MG Tablet PO (21:43)
[2023-04-10] MEDS: traMADol 50 MG Tablet PO (21:43)
[2023-04-10 21:56] VITALS: O2SAT 98
[2023-04-10 23:32] VITALS: BMI 23.6
[2023-04-11 01:20] VITALS: BP 135/66; PULSE 66; RESP 15; TEMP 36.4; O2SAT 97
[2023-04-11 03:03] VITALS: BMI 23.6
[2023-04-11 05:20] VITALS: BP 126/71; PULSE 64; RESP 14; TEMP 36.7; O2SAT 99
[2023-04-11 06:27] LABS: Absolute Lymphocyte Count 4.32 X10^3/uL (0.83-4.51); Basophil# 0.13 X10^3/uL; Basophil% 1.3 % (0-1); Eosinophil# 0.62 X10^3/uL; Eosinophils% 6.3 % (0-5); Hematocrit 33.3 % (37-47); Hemoglobin 10.8 g/dL (12.0-15.0); Lymphocyte # 4.32 X10^3/ul (0.83-4.51); Lymphocyte % 44.2 % (19-41); Mean Corp Hgb Conc 32.4 g/dL (32-36); Mean Corpuscular Hgb 31.6 pg (27.0-32.0); Mean Corpuscular Volume 97.4 fL (81-99); Mean Platelet Vol. 10.5 fl (6.2-12.0); Monocyte# 0.64 X10^3/uL; Monocyte% 6.6 % (0-10); NRBC Flagged by Analyzer 0 % (0-5); Neutrophil # 4.04 X10^3/uL (2.7-7.7); Neutrophil % 41.4 % (47-70); Platelet Count 236 K/mm3 (150-450); RBC Distribution Width CV 12.8 % (11.6-14.6); RBC Distribution Width SD 45.6 fl (35.1-43.9); Red Blood Count 3.42 M/mm3 (4.2-5.4); White Blood Count 9.8 K/mm3 (4.4-11.0)
[2023-04-11 07:13] LABS: Anion Gap 6 (5-15); BUN 13 mg/dL (7-18); BUN/Creat Ratio 11.6 RATIO (10-20); Calcium,Total 8.4 mg/dL (8.5-10.1); Chloride 111 mmol/L (98-107); Cholesterol 113 mg/dL (200); Creatinine, Serum 1.12 mg/dL (0.55-1.02); EST Glomerular Filtration Rate 52 mL/min (>60); Est Glom Filt Rate - Afr Amer 62 mL/min (>60); Estimated Creatinine Clearance 42.09 ml/min; Glucose 96 mg/dL (74-106); High Density Lipoprotein 38 mg/dL; Potassium 4.2 mmol/L (3.5-5.1); Sodium Level 138 mmol/L (136-145); Triglycerides 90 mg/dL; Very Low Density Lipoprotein 18 mg/dL (5-40)
[2023-04-11] MEDS: sulfaSALAzine 500 MG Tablet 1000 MG PO ×2 (08:06→16:53)
[2023-04-11] MEDS: APIXABAN 5 MG TABLET PO ×2 (08:07→21:05)
[2023-04-11] MEDS: Folic Acid 1 MG Tablet PO (08:07)
[2023-04-11] MEDS: Cholecalciferol (Vit D3) 125 MCG CAPSULE (5,000 UNITS) PO (08:13)
[2023-04-11] MEDS: Pantoprazole Sodium 40 MG Tablet PO (08:13)
[2023-04-11] MEDS: Nystatin Powder 15gm Bottle 1 APPLIC TOPICAL ×2 (08:13→21:05)
--- NOTE | 2023-04-11 08:22 | PN.HOSP_ITS ---
Reason for Visit Reason for Visit: Diagnoses Benign neoplasm of brain, unspecified (04/10/23) Type 2 diabetes mellitus with diabetic polyneuropathy (04/10/23) Old myocardial infarction (04/10/23) Peripheral vascular disease, unspecified (04/10/23) Diarrhea, unspecified (04/10/23) Other malaise (04/10/23) Syncope and collapse (04/10/23) Personal history of transient ischemic attack (TIA), and cerebral infarction without residual deficits (04/10/23) Subjective Subjective Stated that yesterday when this event occurred, she was doing some knitting or and then just had this spaced out feeling that things are getting distant and fuzzy. And then she went out. She was spoken to by her son and initially thought it was her , but then realized it was her son but was confused. Did eventually come to but was noted by family to be yelling or screaming. Took her some time before she finally came completely to. Patient does have a remote history of seizures which were [place]. Those would begin with some fasciculations in her shoulder and then she would lay down and that she was going to full-blown tonic-clonic seizures. She had been on antiepileptic medications for period of time but had stopped those due to side effects. She did not have any symptoms Objective Data Objective Data Vital Signs: Vital Signs Temp Pulse Resp BP Pulse Ox O2 Del Method 36.7 C 64 14 126/71 H 99 Room Air 04/11/23 05:20 04/11/23 05:20 04/11/23 05:20 04/11/23 05:20 04/11/23 05:20 04/11/23 05:20 Oxygen Delivery Method Room Air Weight: 62.4 kg Body Mass Index (BMI) 23.6 Intake & Output: Intake and Output for Last 24 Hours 04/09/23 04/10/23 04/11/23 23:59 23:59 23:59 Output Total 0 / 0 600 / 600 Balance 0 / 0 -600 / -600 Lab / Micro Data Result Diagrams: 04/11/23 05:48 04/11/23 05:48 Labs: Laboratory Results - last 24 hr 04/10/23 18:43: WBC 11.1 H, RBC 3.53 L, Hgb 11.3 L, Hct 33.8 L, MCV 95.8, MCH 32.0, MCHC 33.4, RDW Std Deviation 45.2 H, RDW Coeff of Xin 12.9, Plt Count 233, MPV 10.1, Immature Gran % (Auto) 0.200, Neut % (Auto) 51.1, Lymph % (Auto) 37.2, [place] % (Auto) 5.3, Eos % (Auto) 5.0, Baso % (Auto) 1.2 H, Absolute Neuts (auto) 5.7, Absolute Lymphs (auto) 4.12, Nucleated RBC % 0 04/10/23 18:43: Sodium 137, Potassium 4.3, Chloride 110 H, Carbon Dioxide 21.0, Anion Gap 6, BUN 13, Creatinine 1.36 H, Estim Creat Clear Calc 34.66, Est GFR (MDRD) Af Amer 50 L, Est GFR (MDRD) Non-Af 41 L, BUN/Creatinine Ratio 9.6 L, Glucose 119 H, Calcium 8.7, Total Bilirubin 0.50, AST 26, ALT 28, Alkaline Phosphatase 148 H, Total Protein 8.3 H, Albumin 2.8 L, Globulin 5.5 H, Albumin/Globulin Ratio 0.5 L 04/10/23 18:43: Lactic Acid 0.9 04/10/23 19:58: Urine Color Yellow, Urine Clarity Clear, Urine pH 6.0, Ur Specific [place] 1.010, Urine Protein 15 H, Urine Glucose (UA) Normal, Urine Ketones Negative, Urine Occult Blood 10 H, Urine Nitrite Positive H, Urine Bilirubin Negative, Urine Urobilinogen Normal, Ur Leukocyte Esterase 500 H, Urine RBC 0 SEEN, Urine WBC 5-10 SEEN, Ur Squamous Epith Cells 5-10 SEEN, Urine Bacteria 1+, Urine Mucus 0 SEEN 04/11/23 05:48: WBC 9.8, RBC 3.42 L, Hgb 10.8 L, Hct 33.3 L, MCV 97.4, MCH 31.6, MCHC 32.4, RDW Std Deviation 45.6 H, RDW Coeff of Xin 12.8, Plt Count 236, MPV 10.5, Immature Gran % (Auto) 0.200, Neut % (Auto) 41.4 L, Lymph % (Auto) 44.2 H, [place] % (Auto) 6.6, Eos % (Auto) 6.3 H, Baso % (Auto) 1.3 H, Absolute Neuts (auto) 4.0, Absolute Lymphs (auto) 4.32, Nucleated RBC % 0 04/11/23 05:48: Sodium 138, Potassium 4.2, Chloride 111 H, Carbon Dioxide 21.0, Anion Gap 6, BUN 13, Creatinine 1.12 H, Estim Creat Clear Calc 42.09, Est GFR (MDRD) Af Amer 62, Est GFR (MDRD) Non-Af 52 L, BUN/Creatinine Ratio 11.6, Glucose 96, Calcium 8.4 L, Triglycerides 90, Cholesterol 113, LDL Cholesterol 57, VLDL Cholesterol 18, HDL Cholesterol 38 L Radiography Diagnostic Testing: Radiology Impression Brain CT 04/10/23 18:22 IMPRESSION: No acute intracranial or calvarial abnormality. No major interval change. AIDOC was utilized to assist in identifying pertinent positive findings in this case. Electronically Signed: Henrik LeslieDO jose at 18:38 EDT Reading Location ID and State: [facility] / [place] Tel [phone], Service support , Cervical Spine CT 04/10/23 18:22 IMPRESSION: Degenerative changes cervical spine without acute fracture or subluxation. Note: MRI is more sensitive than CT in detecting cord injury, ligamentous injury and epidural hematoma. If there is continued clinical concern for any of these entities, MRI should be considered. AIDOC was utilized to assist in identifying pertinent positive findings in this case. Electronically Signed: Henrik GatitoDO at 18:42 EDT Reading Location ID and State: [facility] / [place] Tel [phone], Service support , Physical Exam Const alert and no apparent distress HEENT head/scalp atraumatic Neuro moves all extremities Sensorium / Orientation: awake and alert Assessment & Plan Assessment/Plan (1) Syncopal episodes: PLAN: syncopal episode. Atypical of seizure despite the patient's having a hist ory of seizures. Patient notes that she has not been eating or drinking very well. She also had felt nauseated before this episode occurred. MRI of the brain, MRA of the head neck were negative. PLAN: Plan Chronic conditions: * Diabetes?continue routine diabetic management will allow patient have a routine diabetic diet * Peripheral artery disease with debility and chronic lower extremity wounds?we will have nurse redress wounds on the floor as this is a chronic issue that is managed at home. We will continue routine home medications for her peripheral artery disease * h/o VTE: apixaban DVT prophylaxis?not indicated. already anticoagulated Discussed with patient's family at bedside. Charges/Coding Visit Charges Inpatient E&M: 98633 Subs Hosp L2
[2023-04-11 08:30] VITALS: O2SAT 95
[2023-04-11] MEDS: Diphenoxylate/Atrop 1 Tablet PO ×2 (08:35→21:05)
[2023-04-11 09:00] VITALS: BP 119/70; PULSE 65; RESP 14; TEMP 36.6; O2SAT 98
--- NOTE | 2023-04-11 10:17 | CASEMGMT ---
Social Work Pt has Healthcare POA with living will provision initialed on file, pt's sister Jackie is listed as POA. MICHELLE Vee
--- NOTE | 2023-04-11 11:53 | CASEMGMT ---
Social Work SW SDOH assessment. SW gave pt resources as noted in assessment. Pt has [facility] and has worked w/the SW before, SW left a message for SW to see pt again. Also, daughter mentioned that she is getting in April and is concerned how pt will manage home alone. SW spoke w/them about Passport services, pt open to referral. SW sent referral electronically and gave pt information on this. Pt also asked about palliative referral, SW let CM know. MICHELLE Vee
--- NOTE | 2023-04-11 12:04 | CASEMGMT ---
Social Work SW completed PHQ-9 with pt. Pt explains that she it's not that she has lost interest in doing things, but that she can't do certain things due to her health and it is frustrating to her. She explains also that she does feel down, and her sleep and energy are also impacted by her health issues. She explains that this is not new. Pt explains has had diarrhea for 9 years and it has affected her ability to do things, to attend family events, etc. Daughter also states pt has been struggling w/word finding--pt is being worked up for a stroke. No further needs at this time in relation to PHQ-9. Pt's score is more related to health issues than depression. SW remains avaible should any resources be needed. MICHELLE Vee
[2023-04-11] MEDS: Ondansetron 4 MG/2 ML Vial IV (12:17)
--- NOTE | 2023-04-11 13:20 | WOUNDNOTE ---
wound photo: left heel
--- NOTE | 2023-04-11 13:21 | WOUNDNOTE ---
wound photo: right heel
--- NOTE | 2023-04-11 14:28 | CHAPLAIN ---
Type of Pastoral Visit _x__ Initial Visit ___ Follow-up Visit ___ On-call Visit ___ General Patient Visit ___ Spiritual Assessment ___ Family Conference ___ Bereavement ___ Rapid Response ___ Code Blue ___ Other (describe below) Pastoral Care Referral From _x__ Patient _x__ Family ___ Nurse ___ Physician ___ Appellate Law Clerk ___ Electric Sign Wirer ___ Other (describe below) Sacrament/Intervention _x__ Active listening ___ Anointing ___ Bahai ___ Bereavement ___ Communion _x__ Dang exploration ___ _x__ Life review _x__ Prayer ___ Reconciliation ___ Sacrament of Sick _x__ Supportive presence ___ Wedding ___ Other (describe below) Pastoral Comments 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 is 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 and has been a regular admission over last couple of years; sister, daughter, and daughter's friend are in the room; each is talkative; casual conversation and then a steady flow of SW, Wound RN, and CM were in and out of room; this parts clerk plant maintenance left and returned later; longer conversation took place with all people; pt is also able to ignore the rest of the group and talk directly with this parts clerk plant maintenance; pt has questions, thoughts to say out loud, requests for support and prayer; pt identifies as a believer and uses dang to cope with her life and situation; pt has some concerns about relationships, finances, and health that she relays to this parts clerk plant maintenance; pt is given prayer and thoughts to consider;
[2023-04-11 15:10] VITALS: BP 121/62; PULSE 78; RESP 12; TEMP 36.6; O2SAT 98
--- NOTE | 2023-04-11 15:51 | RAD_ITS ---
INDICATION: nausea and vomiting. EXAMINATION/TECHNIQUE: X-RAY - XR Abdomen 1 View: 3 image AP abdomen COMPARISON: September 03, 2021 CT abdomen pelvis FINDINGS: BOWEL GAS PATTERN: Nonspecific non-obstructive bowel gas pattern. No focal stomach or bowel distention. Mild to moderate mid colonic stool. FREE AIR: Not well assessed on a supine view. ORGANOMEGALY: Not seen. CALCIFICATIONS: Peripheral atherosclerosis. No concerning calcifications. LOWER CHEST: No acute pathology. BONES AND SOFT TISSUES: No acute pathology. Lateral curvature of the lumbar spine with its lateral bridging osteophytes and endplate sclerosis. RAD/Abdomen Single View (Portable) IMPRESSION: Nonspecific nonobstructive bowel gas pattern. Mild to moderate mid colonic stool. Electronically Signed: Harshad Mason MD at 1:56 EDT ,
[2023-04-11] MEDS: 0.9% Normal Saline 1,000 ML 100 ML IV (16:53)
--- NOTE | 2023-04-11 17:32 | EX.PCM.CON.G ---
HPI Consult Data Date of Consult: 04/11/23 HPI Narrative Reason for Consultation: Nausea vomiting HPI Narrative: RED PRICE, is a 68 F who presents after a syncopal episode.? She says that she lost about 30 pounds in the last 2 months due to inability to eat because of progressive nausea. ? By that time an ambulance had been called and she was transferred to the hospital for further evaluation.? A CT scan was done of the head and neck which did not show any acute findings.? Laboratory studies were relatively unremarkable.? 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 Patient also states she has a history of meningioma in her brain.? CT scan did not reveal a mass effect on her current exam.? She will be admitted for further evaluation of syncopal episode. She then underwent an MRI and MRA of the brain and neck. No acute abnormality was found. I got to know her for the first time in 2020 consultation for lower GI bleeding. She was doing typhlitis having ischemic colitis and was later identified as having C. difficile colitis. She was treated accordingly. We also diagnosed her with gastroparesis and she has been having diarrhea for the last several months. 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 She has had C. difficile colitis at least 3 times with the last cultures for her did not reveal any antigen although the PCR was positive. She has been having diarrhea for the last 4 weeks that seems like her C. difficile came back. From her multiple episodes of C. difficile she was placed on budesonide for the treatment of collagenous colitis that was identified on subsequent colonoscopy. She also Lomotil as needed for worsening diarrhea. At this time she is very nauseous and complaining of pain at the base of her head that she thinks initially started the nausea and could have led to a syncopal episode. Occipital neuralgia [facility] Medical History (Updated 04/11/23 @ 17:[address] 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 Ulcer of amputation stump of foot Wound of left foot Home Medications albuterol sulfate 90 mcg/actuation aerosol inhaler (Ventolin HFA) 1 puff inhalation Q4H PRN PRN SHORTNESS OF BREATH #0 grams 03/25/21 [Rx Last Taken 2 Weeks Ago ~03/27/23] ondansetron 4 mg disintegrating tablet 4 mg PO Q6H PRN PRN NAUSEA #0 tabs 03/25/21 [Rx Last Taken 04/10/23] tramadol 50 mg tablet 50 mg PO Q6H PRN Pain 05/18/21 [History Last Taken Unknown] acetaminophen 325 mg tablet 975 mg PO TID PRN Pain 12/31/22 [History Last Taken Unknown] apixaban 5 mg tablet (Eliquis) 5 mg PO BID #120 tabs 01/03/23 [Rx Last Taken 04/09/23] folic acid 1 mg tablet 1 mg PO DAILY #30 tabs 02/15/23 [Rx Last Taken 04/09/23] sulfasalazine 500 mg tablet 1 g PO BID #120 tabs 02/15/23 [Rx Last Taken 04/10/23] Lactobacillus rhamnosus GG 10 billion cell capsule (Culturelle) 1 cap PO DAILY GUT HEALTH 04/10/23 [History Last Taken 04/09/23] budesonide 3 mg capsule,delayed,extended release 9 mg PO DAILY cdiff 04/10/23 [History Last Taken 04/10/23] cholecalciferol (vitamin D3) 125 mcg (5,000 unit) tablet 125 mcg PO DAILY SUPPLEMENT 04/10/23 [History Last Taken 04/09/23] diphenoxylate-atropine 2.5 mg-0.025 mg tablet 1 tab PO BID DIARRHEA 04/10/23 [History Last Taken 04/10/23] pantoprazole 40 mg tablet,delayed release 40 mg PO DAILY GERD 04/10/23 [History Last Taken 04/10/23] Allergy/AdvReac Type Severity Reaction Status Date / Time cefprozil Allergy Shortness Verified 12/31/22 00:58 of breath ceftriaxone Allergy Hives Verified 12/31/22 00:58 clindamycin Allergy Rash Verified 12/31/22 00:58 enalapril Allergy Other Verified 12/31/22 00:58 enoxaparin Allergy Rash Verified 12/31/22 00:58 heparin Allergy Rash Verified 12/31/22 00:58 levalbuterol Allergy Other Verified 12/31/22 00:58 morphine Allergy Shortness Verified 12/31/22 00:58 of breath Penicillins Allergy Anaphylaxis Verified 12/31/22 00:58 shellfish derived Allergy Anaphylaxis Verified 12/31/22 00:58 valsartan Allergy Other Verified 12/31/22 00:58 vancomycin Allergy Rash Verified 12/31/22 00:58 atorvastatin AdvReac Other Verified 04/10/23 21:31 rosuvastatin [From Crestor] AdvReac Other Verified 04/10/23 21:31 Family History Mother Cancer Lung CA w/ tobacco use history. Diabetes COPD (chronic obstructive pulmonary disease) Father Cancer Lung CA w/ tobacco use history. Diabetes COPD (chronic obstructive pulmonary disease) Heart disease Surgical History History of appendectomy History of eye surgery History of foot surgery History of lumpectomy History of tubal ligation Status post transmetatarsal amputation of left foot Tubal ligation status Social History household members: none Smoking Status: Never smoker alcohol intake: never substance use type: does not use ROS Constitutional Constitutional: Denies change in weight, chills or fever(s) Eyes Eyes: Denies blurry vision ENT HEENT: Denies abnormal hearing Cardiovascular Cardiovascular: Denies chest pain or palpitations Respiratory/Chest Respiratory/Chest: Denies shortness of breath at rest Gastrointestinal Gastrointestinal: Reports diarrhea; Denies abdominal pain Genitourinary Genitourinary: Denies dysuria Musculoskeletal Musculoskeletal: Denies back pain Integumentary Integumentary: Reports wounds Neurologic Neurologic: Reports abnormal speech and confusion Psychiatric Psychiatric: Denies anxiety Physical Exam Const alert and no apparent distress HEENT head/scalp atraumatic Neuro moves all extremities Sensorium / Orientation: awake and alert Medical Records Data Medical Nutrition Assessment Dietitian: Malnutrition Criteria Met Start: 04/11/23 15:41 Freq: Status: Active Protocol: Document 04/11/23 15:42 LO (Rec: 04/11/23 15:42 LO [id number]) Nutrition Malnutrition Evidence of Malnutrition Exists Yes Malnutrition (severe): Chronic Evidenced By Suboptimal Energy Intake ( Severe),Weight Loss (Severe) Intake Problem Increased Nutrient Needs (specify) Etiology protein relate to increased demand for healing Signs/Symptoms as evidenced by left and right heel pressure injuries Status Active Problem Clinical Problem Chronic Disease or Condition Related Malnutrition Etiology severe related to multiple medical issues Signs/Symptoms as evidenced by 14.9% weight loss in 7.5 months, <75% PO intake of estimated energy needs for >1 month, and severe orbital fat loss Status Active Problem 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 Dietitian 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s/Changes RD will keep diet liberalized to Regular due to poor PO intakes at this time. Goal is CCD/Cardiac diet when intakes are adequate. Continue 120mL EPHP TID with medpass to provide supplemental energy. Will order Alfredo BID with meals to promote wound healing . Lab / Micro Data Result Diagrams: 04/11/23 05:48 04/11/23 05:48 Labs: Laboratory Results - last 24 hr 04/10/23 18:43: WBC 11.1 H, RBC 3.53 L, Hgb 11.3 L, Hct 33.8 L, MCV 95.8, MCH 32.0, MCHC 33.4, RDW Std Deviation 45.2 H, RDW Coeff of Xin 12.9, Plt Count 233, MPV 10.1, Immature Gran % (Auto) 0.200, Neut % (Auto) 51.1, Lymph % (Auto) 37.2, Bucks % (Auto) 5.3, Eos % (Auto) 5.0, Baso % (Auto) 1.2 H, Absolute Neuts (auto) 5.7, Absolute Lymphs (auto) 4.12, Nucleated RBC % 0 04/10/23 18:43: Sodium 137, Potassium 4.3, Chloride 110 H, Carbon Dioxide 21.0, Anion Gap 6, BUN 13, Creatinine 1.36 H, Estim Creat Clear Calc 34.66, Est GFR (MDRD) Af Amer 50 L, Est GFR (MDRD) Non-Af 41 L, BUN/Creatinine Ratio 9.6 L, Glucose 119 H, Calcium 8.7, Total Bilirubin 0.50, AST 26, ALT 28, Alkaline Phosphatase 148 H, Total Protein 8.3 H, Albumin 2.8 L, Globulin 5.5 H, Albumin/Globulin Ratio 0.5 L 04/10/23 18:43: Lactic Acid 0.9 04/10/23 19:58: Urine Color Yellow, Urine Clarity Clear, Urine pH 6.0, Ur Specific Logan 1.010, Urine Protein 15 H, Urine Glucose (UA) Normal, Urine Ketones Negative, Urine Occult Blood 10 H, Urine Nitrite Positive H, Urine Bilirubin Negative, Urine Urobilinogen Normal, Ur Leukocyte Esterase 500 H, Urine RBC 0 SEEN, Urine WBC 5-10 SEEN, Ur Squamous Epith Cells 5-10 SEEN, Urine Bacteria 1+, Urine Mucus 0 SEEN 04/11/23 05:48: WBC 9.8, RBC 3.42 L, Hgb 10.8 L, Hct 33.3 L, MCV 97.4, MCH 31.6, MCHC 32.4, RDW Std Deviation 45.6 H, RDW Coeff of Xin 12.8, Plt Count 236, MPV 10.5, Immature Gran % (Auto) 0.200, Neut % (Auto) 41.4 L, Lymph % (Auto) 44.2 H, Bucks % (Auto) 6.6, Eos % (Auto) 6.3 H, Baso % (Auto) 1.3 H, Absolute Neuts (auto) 4.0, Absolute Lymphs (auto) 4.32, Nucleated RBC % 0 04/11/23 05:48: Sodium 138, Potassium 4.2, Chloride 111 H, Carbon Dioxide 21.0, Anion Gap 6, BUN 13, Creatinine 1.12 H, Estim Creat Clear Calc 42.09, Est GFR (MDRD) Af Amer 62, Est GFR (MDRD) Non-Af 52 L, BUN/Creatinine Ratio 11.6, Glucose 96, Calcium 8.4 L, Triglycerides 90, Cholesterol 113, LDL Cholesterol 57, VLDL Cholesterol 18, HDL Cholesterol 38 L Radiology Impression Brain CT 04/10/23 18:22 IMPRESSION: No acute intracranial or calvarial abnormality. No major interval change. AIDOC was utilized to assist in identifying pertinent positive findings in this case. Electronically Signed: Henrik Mederos DO at 18:38 EDT Reading Location ID and State: [facility] / [place] Tel [phone], Service support , Cervical Spine CT 04/10/23 18:22 IMPRESSION: Degenerative changes cervical spine without acute fracture or subluxation. Note: MRI is more sensitive than CT in detecting cord injury, ligamentous injury and epidural hematoma. If there is continued clinical concern for any of these entities, MRI should be considered. AIDOC was utilized to assist in identifying pertinent positive findings in this case. Electronically Signed: Henrik GatitoDO at 18:42 EDT Reading Location ID and State: [facility] / [place] Tel [phone], Service support , Brain MRI 04/10/23 20:05 IMPRESSION: 1. No acute intracranial abnormality. 2. Stable 2.2 cm meningioma of the planum sphenoidale. Electronically Signed: Elie Jensen MD at 12:13 EDT , Head MRA 04/10/23 20:05 IMPRESSION: No evidence of arterial stenosis or occlusion. Congenital absence of right A1 segment. Electronically Signed: Elie Jensen MD at 12:20 EDT , Neck MRA 04/10/23 20:05 IMPRESSION: Normal MRA neck. 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 She is currently experiencing neck pain rating up to her skull that I believe is contributing to her symptoms of nausea vomiting. Also believe that the pain is contributing to her diarrhea. I will give her steroids for a presented diagnosis of occipital neuralgia causing nausea vomiting. I will also give her scopolamine patch as I think anything she puts in her mouth at this time will cause worsening altered vomiting. I will give her 1 dose of Haldol and give her low-dose Ativan which are both good muscle relaxers and antinausea therapy. I will give her Reglan IV as she did take it as an outpatient and it helped. It was stopped by a different physician because they thought she was experiencing side effects from the Reglan therapy. She is already on Protonix 40 mg twice a day. Also recommend to check her stools for fecal leukocytes, fecal calprotectin and C. difficile. Charges/Coding Visit Charges Inpatient E&M: 10042 Init Hosp L3
[2023-04-11] MEDS: Scopolamine 1mg/72hr Patch 1 PATCH TD (17:55)
[2023-04-11] MEDS: LORazepam 2 MG/ML Syringe 0.25 MG IV (17:56)
[2023-04-11] MEDS: Metoclopramide 10 MG/2 ML Vial 5 MG IV (17:56)
[2023-04-11] MEDS: Haloperidol Lactate 5 MG/ML Vial 1 MG IV (17:56)
[2023-04-11] MEDS: 0.9% Saline Lock 10 ML Syringe IV (17:57)
[2023-04-11 18:37] LABS: Erythrocyte Sedimentation Rate 42 mm/hr (0-30)
[2023-04-11 18:40] LABS: CPK Total, Creatine Kinase 40 U/L (26-192); CRP < 2.90 mg/L (0.0-3.0)
[2023-04-11] MEDS: Methylprednisolone Sod Succ 40 MG/ML VIAL IV (21:05)
[2023-04-11 21:10] VITALS: BP 94/55; PULSE 64; RESP 15; TEMP 37; O2SAT 99
[2023-04-12] MEDS: Metoclopramide 10 MG/2 ML Vial 5 MG IV ×5 (01:14→23:13)
[2023-04-12] MEDS: 0.9% Normal Saline 1,000 ML 100 ML IV ×3 (01:14→20:52)
[2023-04-12 03:10] VITALS: BP 137/75; PULSE 72; RESP 14; TEMP 36.3; O2SAT 97
[2023-04-12 05:47] LABS: Absolute Lymphocyte Count 0.72 X10^3/uL (0.83-4.51); Absolute Neutrophil Count 5.7 X10^3/uL (2.0-7.7); Basophil# 0.04 X10^3/uL; Basophil% 0.6 % (0-1); Hematocrit 37.8 % (37-47); Hemoglobin 12.1 g/dL (12.0-15.0); Lymphocyte # 0.72 X10^3/ul (0.83-4.51); Lymphocyte % 11.1 % (19-41); Mean Corpuscular Hgb 31.3 pg (27.0-32.0); Mean Corpuscular Volume 97.9 fL (81-99); Mean Platelet Vol. 10.4 fl (6.2-12.0); Monocyte# 0.02 X10^3/uL; Monocyte% 0.3 % (0-10); NRBC Flagged by Analyzer 0 % (0-5); Neutrophil # 5.67 X10^3/uL (2.7-7.7); Neutrophil % 87.7 % (47-70); Platelet Count 250 K/mm3 (150-450); RBC Distribution Width CV 12.8 % (11.6-14.6); RBC Distribution Width SD 45.8 fl (35.1-43.9); Red Blood Count 3.86 M/mm3 (4.2-5.4); White Blood Count 6.5 K/mm3 (4.4-11.0)
[2023-04-12 06:34] LABS: Anion Gap 5 (5-15); BUN 21 mg/dL (7-18); BUN/Creat Ratio 17.1 RATIO (10-20); Calcium,Total 8.7 mg/dL (8.5-10.1); Chloride 111 mmol/L (98-107); Creatinine, Serum 1.23 mg/dL (0.55-1.02); EST Glomerular Filtration Rate 46 mL/min (>60); Est Glom Filt Rate - Afr Amer 56 mL/min (>60); Estimated Creatinine Clearance 38.33 ml/min; Glucose 237 mg/dL (74-106); Potassium 4.9 mmol/L (3.5-5.1); Sodium Level 137 mmol/L (136-145)
[2023-04-12 07:54] VITALS: O2SAT 97
[2023-04-12 08:31] VITALS: BP 154/79; PULSE 77; RESP 16; TEMP 36.8; O2SAT 98
--- NOTE | 2023-04-12 08:34 | PN.HOSP_ITS ---
Reason for Visit Reason for Visit: Diagnoses Benign neoplasm of brain, unspecified (04/11/23) Type 2 diabetes mellitus with diabetic polyneuropathy (04/11/23) Old myocardial infarction (04/11/23) Peripheral vascular disease, unspecified (04/11/23) Gastroparesis (04/11/23) Cervicalgia (04/11/23) Nausea with vomiting, unspecified (04/11/23) Diarrhea, unspecified (04/11/23) Other malaise (04/11/23) Syncope and collapse (04/11/23) Personal history of transient ischemic attack (TIA), and cerebral infarction without residual deficits (04/11/23) Subjective Subjective Ate 50% of breakfast today and drank water without difficulty. Objective Data Objective Data Vital Signs: Vital Signs Temp Pulse Resp BP Pulse Ox O2 Del Method 36.8 C 77 16 154/79 H 98 Room Air 04/12/23 08:31 04/12/23 08:31 04/12/23 08:31 04/12/23 08:31 04/12/23 08:31 04/12/23 08:31 Oxygen Delivery Method Room Air Weight: 62.4 kg Body Mass Index (BMI) 23.6 Intake & Output: Intake and Output for Last 24 Hours 04/10/23 04/11/23 04/12/23 23:59 23:59 23:59 Intake Total 110 / 110 835 / 835 Output Total 0 / 0 1550 / 1550 400 / 400 Balance 0 / 0 -1440 / -1440 435 / 435 Medical Nutrition Assessment Dietitian: Malnutrition Criteria Met Start: 04/11/23 15:41 Freq: Status: Active Protocol: Document 04/11/23 15:42 LO (Rec: 04/11/23 15:42 LO [id number]) Nutrition Malnutrition Evidence of Malnutrition Exists Yes Malnutrition (severe): Chronic Evidenced By Suboptimal Energy Intake ( Severe),Weight Loss (Severe) Intake Problem Increased Nutrient Needs (specify) Etiology protein relate to increased demand for healing Signs/Symptoms as evidenced by left and right heel pressure injuries Status Active Problem Clinical Problem Chronic Disease or Condition Related Malnutrition Etiology severe related to multiple medical issues Signs/Symptoms as evidenced by 14.9% weight loss in 7.5 months, <75% PO intake of estimated energy needs for >1 month, and severe orbital fat loss Status Active Problem 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 Dietitian 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s/Changes RD will keep diet liberalized to Regular due to poor PO intakes at this time. Goal is CCD/Cardiac diet when intakes are adequate. Continue 120mL EPHP TID with medpass to provide supplemental energy. Will order Alfredo BID with meals to promote wound healing . Lab / Micro Data Result Diagrams: 04/12/23 05:19 04/12/23 05:19 Labs: Laboratory Results - last 24 hr 04/11/23 05:48: ESR 42 H 04/11/23 05:48: Total Creatine Kinase 40, C-React Prot Ext Range < 2.90 04/12/23 05:19: WBC 6.5, RBC 3.86 L, Hgb 12.1, Hct 37.8, MCV 97.9, MCH 31.3, MCHC 32.0, RDW Std Deviation 45.8 H, RDW Coeff of Xin 12.8, Plt Count 250, MPV 10.4, Immature Gran % (Auto) 0.300, Neut % (Auto) 87.7 H, Lymph % (Auto) 11.1 L, Barnes % (Auto) 0.3, Eos % (Auto) 0.0, Baso % (Auto) 0.6, Absolute Neuts (auto) 5.7, Absolute Lymphs (auto) 0.72 L, Nucleated RBC % 0 04/12/23 05:19: Sodium 137, Potassium 4.9, Chloride 111 H, Carbon Dioxide 21.0, Anion Gap 5, BUN 21 H, Creatinine 1.23 H, Estim Creat Clear Calc 38.33, Est GFR (MDRD) Af Amer 56 L, Est GFR (MDRD) Non-Af 46 L, BUN/Creatinine Ratio 17.1, Glucose 237 H, Calcium 8.7 Radiography Diagnostic Testing: Radiology Impression Brain MRI 04/10/23 20:05 IMPRESSION: 1. No acute intracranial abnormality. 2. Stable 2.2 cm meningioma of the planum sphenoidale. Electronically Signed: Elie Jensen MD at 12:13 EDT , Head MRA 04/10/23 20:05 IMPRESSION: No evidence of arterial stenosis or occlusion. Congenital absence of right A1 segment. Electronically Signed: Elie Jensen MD at 12:20 EDT , Neck MRA 04/10/23 20:05 IMPRESSION: Normal MRA neck. Electronically Signed: Elie Jensen MD at 12:17 EDT , KUB X-Ray 04/11/23 15:51 IMPRESSION: Nonspecific nonobstructive bowel gas pattern. Mild to moderate mid colonic stool. Electronically Signed: Harshad Mason MD at 1:56 EDT , Physical Exam Const alert and no apparent distress Constitutional Narrative: up on commode. HEENT head/scalp atraumatic and moist oral mucous membranes Resp normal respiratory effort, no retractions, no use of accessory muscles and clear to auscultation bilaterally Cardio regular rate, regular rhythm, S1 normal heart sound and S2 normal heart sound GI normal to inspection, nondistended, normoactive bowel sounds, soft to palpation, non-tender and non-distended Assessment & Plan Assessment/Plan (1) Syncopal episodes: PLAN: syncopal episode. Atypical of seizure despite the patient's having a history of seizures. Patient notes that she has not been eating or drinking very well. She also had felt nauseated before this episode occurred. MRI of the brain, MRA of the head neck were negative. (2) Dysphagia: PLAN: improved started on steroids, scopolamine, reglan, lorazepam check fecal leuks, calprotectin and C diff, O+P, pancreatic elastase monitor overnight, and if continues to tolerate PO, tentative plan for DC 04/13 with scopolamine and medrol dose pack. PLAN: Plan Chronic conditions: * Diabetes?continue routine diabetic management will allow patient have a routine diabetic diet * Peripheral artery disease with debility and chronic lower extremity wounds?we will have nurse redress wounds on the floor as this is a chronic issue that is managed at home. We will continue routine home medications for her peripheral artery disease * h/o VTE: apixaban DVT prophylaxis?not indicated. already anticoagulated Charges/Coding Visit Charges Inpatient E&M: 37429 Subs Hosp L2
[2023-04-12] MEDS: sulfaSALAzine 500 MG Tablet 1000 MG PO ×3 (08:47→21:26)
[2023-04-12] MEDS: Ensure Plus High Protein 120 ML LIQUID PO ×3 (08:48→17:03)
[2023-04-12] MEDS: Folic Acid 1 MG Tablet PO (08:48)
[2023-04-12] MEDS: Budesonide 3 MG CAPSULE.EC 9 MG PO (08:48)
[2023-04-12] MEDS: Cholecalciferol (Vit D3) 125 MCG CAPSULE (5,000 UNITS) PO (08:49)
[2023-04-12] MEDS: APIXABAN 5 MG TABLET PO ×2 (08:49→21:26)
[2023-04-12] MEDS: Nystatin Powder 15gm Bottle 1 APPLIC TOPICAL ×2 (08:49→21:28)
[2023-04-12] MEDS: Methylprednisolone Sod Succ 40 MG/ML VIAL IV ×2 (08:52→21:28)
[2023-04-12] MEDS: Diphenoxylate/Atrop 1 Tablet PO ×2 (08:59→21:26)
--- NOTE | 2023-04-12 13:20 | CASEMGMT ---
RN JOSE ALEJANDRO Face to Face with patient for initial transition planning/care coordination assessment. RN CM introduced self and role at [facility]. Patient sitting in chair, alert and oriented, sister at bedside. Patient willing to participate in assessment and is able to answer all questions appropriately. Care providers, pharmacy, and demographics verified. Patient wishes to discharge home with resumption of [facility] HHC. Patient states she has no further needs or concerns at this time. CM to follow for discharge planning needs that may arise. PCP: Awa Specialists: Friend, GI; Perry, campaign consultant; [facility] Main Neurologist Preferred Pharmacy: [facility] Retail at discharge. Insurance: [facility], [employer] Prescription Benefit: yes Living Will/HPOA: yes, sister Jackie Silverman LNOK: sister, daughter Living Arrangements: Patient lives with daughter in a single story home with ramp to enter. Patient states she is independent at home. Transportation: sister, daughter but they work, resources provided by [facility]/HHC: Patient has shower chair, raised toilet, hospital bed, grab bars, nebuilzer, electric wheelchair, slide board. Patient is active with [facility]. Patient is interested in palliative care referral. No previous SNF Disposition Plan: Patient to discharge home with resumption of HHC, family support, and follow-up plans in place. Hilda MORENO, RN, CM
[2023-04-12 14:25] VITALS: BP 150/76; PULSE 85; RESP 16; TEMP 36.6; O2SAT 97
[2023-04-12 17:01] VITALS: BP 169/75; PULSE 81; RESP 16; TEMP 36.6; O2SAT 99
--- NOTE | 2023-04-12 17:32 | EX.PCM.PN.GI ---
Subjective Subjective Patient is doing a lot better today. She is able to tolerate a diet. She is having less pain in her neck and she is a lot less dizzy. She also denies any nausea. Objective Data Objective Data Vital Signs: Vital Signs Temp Pulse Resp BP Pulse Ox O2 Del Method 97.8 F 81 16 169/75 H 99 Room Air 04/12/23 17:01 04/12/23 17:01 04/12/23 17:01 04/12/23 17:01 04/12/23 17:01 04/12/23 17:01 Oxygen Delivery Method Room Air Weight: 137 lb 9.095 oz Body Mass Index (BMI) 23.6 Intake & Output: Intake and Output for Last 24 Hours 04/10/23 04/11/23 04/12/23 23:59 23:59 23:59 Intake Total 110 / 110 2675 / 2675 Output Total 0 / 0 1550 / 1550 475 / 475 Balance 0 / 0 -1440 / -1440 2200 / 2200 Medical Nutrition Assessment Dietitian: Malnutrition Criteria Met Start: 04/11/23 15:41 Freq: Status: Active Protocol: Document 04/11/23 15:42 LO (Rec: 04/11/23 15:42 LO [id number]) Nutrition Malnutrition Evidence of Malnutrition Exists Yes Malnutrition (severe): Chronic Evidenced By Suboptimal Energy Intake ( Severe),Weight Loss (Severe) Intake Problem Increased Nutrient Needs (specify) Etiology protein relate to increased demand for healing Signs/Symptoms as evidenced by left and right heel pressure injuries Status Active Problem Clinical Problem Chronic Disease or Condition Related Malnutrition Etiology severe related to multiple medical issues Signs/Symptoms as evidenced by 14.9% weight loss in 7.5 months, <75% PO intake of estimated energy needs for >1 month, and severe orbital fat loss Status Active Problem 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 Dietitian 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s/Changes RD will keep diet liberalized to Regular due to poor PO intakes at this time. Goal is CCD/Cardiac diet when intakes are adequate. Continue 120mL EPHP TID with medpass to provide supplemental energy. Will order Alfredo BID with meals to promote wound healing . Lab / Micro Data Result Diagrams: 04/12/23 05:19 04/12/23 05:19 Labs: Laboratory Results - last 24 hr 04/11/23 05:48: ESR 42 H 04/11/23 05:48: Total Creatine Kinase 40, C-React Prot Ext Range < 2.90 04/12/23 05:19: WBC 6.5, RBC 3.86 L, Hgb 12.1, Hct 37.8, MCV 97.9, MCH 31.3, MCHC 32.0, RDW Std Deviation 45.8 H, RDW Coeff of Xin 12.8, Plt Count 250, MPV 10.4, Immature Gran % (Auto) 0.300, Neut % (Auto) 87.7 H, Lymph % (Auto) 11.1 L, [place] % (Auto) 0.3, Eos % (Auto) 0.0, Baso % (Auto) 0.6, Absolute Neuts (auto) 5.7, Absolute Lymphs (auto) 0.72 L, Nucleated RBC % 0 04/12/23 05:19: Sodium 137, Potassium 4.9, Chloride 111 H, Carbon Dioxide 21.0, Anion Gap 5, BUN 21 H, Creatinine 1.23 H, Estim Creat Clear Calc 38.33, Est GFR (MDRD) Af Amer 56 L, Est GFR (MDRD) Non-Af 46 L, BUN/Creatinine Ratio 17.1, Glucose 237 H, Calcium 8.7 Micro: Microbiology 04/12/23 14:56 Stool Stool Lactoferrin - Final Radiography Diagnostic Testing: Radiology Impression KUB X-Ray 04/11/23 15:51 IMPRESSION: Nonspecific nonobstructive bowel gas pattern. Mild to moderate mid colonic stool. Electronically Signed: Harshad Mason MD at 1:56 EDT Reading Location ID and State: [facility] [place] / [place] Tel , Service support , Physical Exam Const alert and no apparent distress Constitutional Narrative: up on commode. HEENT head/scalp atraumatic and moist oral mucous membranes Resp normal respiratory effort, no retractions, no use of accessory muscles and clear to auscultation bilaterally Cardio regular rate, regular rhythm, S1 normal heart sound and S2 normal heart sound GI normal to inspection, nondistended, normoactive bowel sounds, soft to palpation, non-tender and non-distended Assessment & Plan Assessment/Plan (1) Acute neck pain: (2) Gastroparesis: (3) Nausea & vomiting: (4) Diarrhea: PLAN: Plan 68-year-old with past medical history of diabetes mellitus complicated by gastroparesis, bacterial overgrowth, 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 She is currently experiencing neck pain rating up to her skull that I believe is contributing to her symptoms of nausea vomiting. Also believe that the pain is contributing to her diarrhea. I will give her steroids for a presented diagnosis of occipital neuralgia causing nausea vomiting. I will also give her scopolamine patch as I think anything she puts in her mouth at this time will cause worsening altered vomiting. I will give her 1 dose of Haldol and give her low-dose Ativan which are both good muscle relaxers and antinausea therapy. I will give her Reglan IV as she did take it as an outpatient and it helped. It was stopped by a different physician because they thought she was experiencing side effects from the Reglan therapy. She is already on Protonix 40 mg twice a day. Also recommend to check her stools for fecal leukocytes, fecal calprotectin and C. difficile. 04/12: Her diarrhea has slowed down. I think that was the Ativan that improved her diarrhea. Also her nausea and vomiting has resolved with steroids, dose of Haldol and scheduled Reglan therapy. I will continue medical therapy as previously ordered. Charges/Coding Visit Charges Inpatient E&M: 76931 [facility] Hosp L3
[2023-04-12 20:40] VITALS: BP 177/78; PULSE 74; RESP 16; TEMP 36.6; O2SAT 96
[2023-04-12] MEDS: Menthol/Lanolin/Calamine/Znox 113 GM Tube 1 APPLIC TOPICAL (21:27)
[2023-04-12] MEDS: LORazepam 2 MG/ML Syringe 0.25 MG IV (21:27)
[2023-04-13] VITALS (10 sets, daily range): BP systolic 119–177; BP diastolic 56–83; PULSE 71–86; RESP 14–20; TEMP 36.6–37; O2SAT 95–99
[2023-04-13] MEDS: LORazepam 2 MG/ML Syringe 0.25 MG IV ×3 (06:05→23:58)
[2023-04-13] MEDS: 0.9% Saline Lock 10 ML Syringe IV ×2 (06:06→23:59)
[2023-04-13] MEDS: Metoclopramide 10 MG/2 ML Vial 5 MG IV ×4 (06:06→23:59)
[2023-04-13] MEDS: 0.9% Normal Saline 1,000 ML 100 ML IV ×3 (07:29→22:56)
--- NOTE | 2023-04-13 08:20 | PN.HOSP_ITS ---
Reason for Visit Reason for Visit: Diagnoses Benign neoplasm of brain, unspecified (04/11/23) Type 2 diabetes mellitus with diabetic polyneuropathy (04/11/23) Old myocardial infarction (04/11/23) Peripheral vascular disease, unspecified (04/11/23) Gastroparesis (04/11/23) Cervicalgia (04/11/23) Nausea with vomiting, unspecified (04/11/23) Dysphagia, unspecified (04/11/23) Diarrhea, unspecified (04/11/23) Other malaise (04/11/23) Syncope and collapse (04/11/23) Personal history of transient ischemic attack (TIA), and cerebral infarction without residual deficits (04/11/23) Subjective Subjective No longer vomiting, but has had early satiety. Some diarrhea today. Objective Data Objective Data Vital Signs: Vital Signs Temp Pulse Resp BP Pulse Ox O2 Del Method 36.9 C 71 16 127/65 H 95 Room Air 04/13/23 05:58 04/13/23 05:58 04/13/23 05:58 04/13/23 05:58 04/13/23 05:58 04/13/23 05:58 Oxygen Delivery Method Room Air Weight: 62.4 kg Body Mass Index (BMI) 23.6 Intake & Output: Intake and Output for Last 24 Hours 04/11/23 04/12/23 04/13/23 23:59 23:59 23:59 Intake Total 110 / 110 3818.33 / 3818.33 936.67 / 936.67 Output Total 1550 / 1550 475 / 475 500 / 500 Balance -1440 / -1440 3343.33 / 3343.33 436.67 / 436.67 Medical Nutrition Assessment Dietitian: Malnutrition Criteria Met Start: 04/11/23 15:41 Freq: Status: Active Protocol: Document 04/11/23 15:42 LO (Rec: 04/11/23 15:42 LO [id number]) Nutrition Malnutrition Evidence of Malnutrition Exists Yes Malnutrition (severe): Chronic Evidenced By Suboptimal Energy Intake ( Severe),Weight Loss (Severe) Intake Problem Increased Nutrient Needs (specify) Etiology protein relate to increased demand for healing Signs/Symptoms as evidenced by left and right heel pressure injuries Status Active Problem Clinical Problem Chronic Disease or Condition Related Malnutrition Etiology severe related to multiple medical issues Signs/Symptoms as evidenced by 14.9% weight loss in 7.5 months, <75% PO intake of estimated energy needs for >1 month, and severe orbital fat loss Status Active Problem 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 Dietitian 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s/Changes RD will keep diet liberalized to Regular due to poor PO intakes at this time. Goal is CCD/Cardiac diet when intakes are adequate. Continue 120mL EPHP TID with medpass to provide supplemental energy. Will order Alfredo BID with meals to promote wound healing . Lab / Micro Data Result Diagrams: 04/12/23 05:19 04/12/23 05:19 Micro: Microbiology 04/12/23 14:56 Stool Stool Lactoferrin - Final 04/12/23 14:56 Stool C. difficile GDH Antigen & Toxins - Final 04/12/23 14:56 Stool C. difficile DNA Amplification - Final Physical Exam Const alert and no apparent distress Constitutional Narrative: on commode. HEENT head/scalp atraumatic and moist oral mucous membranes Neuro Sensorium / Orientation: awake and alert Psych affect normal Assessment & Plan Assessment/Plan (1) Syncopal episodes: PLAN: syncopal episode. Atypical of seizure despite the patient's having a history of seizures. Patient notes that she has not been eating or drinking very well. She also had felt nauseated before this episode occurred. MRI of the brain, MRA of the head neck were negative. (2) Dysphagia: PLAN: improved started on steroids, scopolamine, reglan, lorazepam check fecal leuks, calprotectin and C diff, O+P, pancreatic elastase monitor overnight, and if continues to tolerate PO, tentative plan for DC 04/13 with scopolamine and medrol dose pack. (3) C. 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 Will initiate oral vancomycin 125 mg 4 times a day. If tolerates that then over that she can be discharged. We will plan on treatment with for 10 days. PLAN: Plan Chronic conditions: * Diabetes?continue routine diabetic management will allow patient have a routine diabetic diet * Peripheral artery disease with debility and chronic lower extremity wounds?we will have nurse redress wounds on the floor as this is a chronic issue that is managed at home. We will continue routine home medications for her peripheral artery disease * h/o VTE: apixaban DVT prophylaxis?not indicated. already anticoagulated Greater than 35 minutes of which greater than 50% of the time was counseling about C diff and reviewing vancomycin with the patient. Charges/Coding Visit Charges Inpatient E&M: 29925 Subs Hosp L2
[2023-04-13] MEDS: Methylprednisolone Sod Succ 40 MG/ML VIAL IV ×2 (10:23→23:59)
[2023-04-13] MEDS: Nystatin Powder 15gm Bottle 1 APPLIC TOPICAL (10:23)
[2023-04-13] MEDS: Ensure Plus High Protein 120 ML LIQUID PO ×2 (10:23→18:02)
[2023-04-13] MEDS: Budesonide 3 MG CAPSULE.EC 9 MG PO (11:48)
[2023-04-13] MEDS: Diphenoxylate/Atrop 1 Tablet PO ×2 (11:48→23:59)
[2023-04-13] MEDS: Folic Acid 1 MG Tablet PO (11:48)
[2023-04-13] MEDS: Cholecalciferol (Vit D3) 125 MCG CAPSULE (5,000 UNITS) PO (11:48)
[2023-04-13] MEDS: APIXABAN 5 MG TABLET PO (11:49)
[2023-04-13] MEDS: sulfaSALAzine 500 MG Tablet 1000 MG PO ×2 (11:49→18:01)
--- NOTE | 2023-04-13 14:45 | CASEMGMT ---
Patient had requested palliative consult during assessment. Order received from hospitalist, screening tool completed. Referral sent to [facility] via email.
[2023-04-13] MEDS: Menthol/Lanolin/Calamine/Znox 113 GM Tube 1 APPLIC TOPICAL ×3 (15:07→23:53)
[2023-04-13 15:08] LABS: Aldolase 4.6 U/L (3.3-10.3)
[2023-04-13] MEDS: Vancomycin 125 MG/5 ML Susp PO.SYRINGE PO ×3 (15:54→23:59)
--- NOTE | 2023-04-13 17:15 | EKG12_ITS ---
Test Reason : SYNCOPE Blood Pressure : / mmHG Vent. Rate : 075 BPM Atrial Rate : 075 BPM P-R Int : 170 ms QRS Dur : 092 ms QT Int : 398 ms P-R-T Axes : 114 189 117 degrees QTc Int : 444 ms Suspect arm lead reversal, interpretation assumes no reversal Sinus rhythm with Premature atrial complexes Right superior axis deviation Septal infarct , age undetermined Abnormal ECG Confirmed by LANCE BERRIOS, ARTEMIO ([id number]), photographic editor GEE YEBOAH ([id number]) on 04/17/2023 11:13:48 AM Referred By: TOBY Confirmed By:ARTEMIO LUCAS MD
[2023-04-13 17:45] LABS: Bedside Glucose 329 mg/dL (74-106)
--- NOTE | 2023-04-13 20:25 | EX.PCM.PN.GI ---
Subjective Subjective She is notshe is not having any more neck pain and her nausea is a lot better. She reads her nausea at a four out of 10. She mostly gets crampy urgent, diarrhea and she's been having the crampy urgent diarrhea for the past two weeks. Objective Data Objective Data Vital Signs: Vital Signs Temp Pulse Resp BP Pulse Ox O2 Del Method 98.0 F 86 14 135/67 H 99 Room Air 04/13/23 20:08 04/13/23 20:10 04/13/23 20:10 04/13/23 20:08 04/13/23 20:10 04/13/23 20:10 Oxygen Delivery Method Room Air Weight: 137 lb 9.095 oz Body Mass Index (BMI) 23.6 Intake & Output: Intake and Output for Last 24 Hours 04/11/23 04/12/23 04/13/23 23:59 23:59 23:59 Intake Total 110 / 110 3818.33 / 3818.33 2476.67 / 2476.67 Output Total 1550 / 1550 475 / 475 500 / 500 Balance -1440 / -1440 3343.33 / 3343.33 1975.67 / 1975. Medical Nutrition Assessment Dietitian: Malnutrition Criteria Met Start: 04/11/23 15:41 Freq: Status: Active Protocol: Document 04/11/23 15:42 RAMÍREZ (Rec: 04/11/23 15:42 [id number]) Nutrition Malnutrition Evidence of Malnutrition Exists Yes Malnutrition (severe): Chronic Evidenced By Suboptimal Energy Intake ( Severe),Weight Loss (Severe) Intake Problem Increased Nutrient Needs (specify) Etiology protein relate to increased demand for healing Signs/Symptoms as evidenced by left and right heel pressure injuries Status Active Problem Clinical Problem Chronic Disease or Condition Related Malnutrition Etiology severe related to multiple medical issues Signs/Symptoms as evidenced by 14.9% weight loss in 7.5 months, <75% PO intake of estimated energy needs for >1 month, and severe orbital fat loss Status Active Problem 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 Dietitian 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s/Changes RD will keep diet liberalized to Regular due to poor PO intakes at this time. Goal is CCD/Cardiac diet when intakes are adequate. Continue 120mL EPHP TID with medpass to provide supplemental energy. Will order Alfredo BID with meals to promote wound healing . Lab / Micro Data Result Diagrams: 04/12/23 05:19 04/12/23 05:19 Labs: Laboratory Results - last 24 hr 04/12/23 05:19: Aldolase 4.6 04/13/23 16:56: POC Glucose 329 H Micro: Microbiology 04/12/23 14:56 Stool Stool Lactoferrin - Final 04/12/23 14:56 Stool Enteric Bacteriology - Final 04/12/23 14:56 Stool C. difficile GDH Antigen & Toxins - Final 04/12/23 14:56 Stool C. difficile DNA Amplification - Final Physical Exam Const alert and no apparent distress Constitutional Narrative: on commode. 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 She is currently experiencing neck pain rating up to her skull that I believe is contributing to her symptoms of nausea vomiting. Also believe that the pain is contributing to her diarrhea. I will give her steroids for a presented diagnosis of occipital neuralgia causing nausea vomiting. I will also give her scopolamine patch as I think anything she puts in her mouth at this time will cause worsening altered vomiting. I will give her 1 dose of Haldol and give her low-dose Ativan which are both good muscle relaxers and antinausea therapy. I will give her Reglan IV as she did take it as an outpatient and it helped. It was stopped by a different physician because they thought she was experiencing side effects from the Reglan therapy. She is already on Protonix 40 mg twice a day. Also recommend to check her stools for fecal leukocytes, fecal calprotectin and C. difficile. 04/12: Her diarrhea has slowed down. I think that was the Ativan that improved her diarrhea. Also her nausea and vomiting has resolved with steroids, dose of Haldol and scheduled Reglan therapy. I will continue medical therapy as previously ordered. 04/13: s she is CDF positive for ANB antigen and she's PCR positive for history of CDiff. Agree with treating with Elana bah. Due to her frequent need for antibiotics I would recommend monoclonal antibody for Cdiff as an outpatient. Continue currentcontinue current recommendations regarding anti-nausea medicine. It is OK for her to continue on steroids with current bowel infection. Charges/Coding Visit Charges Inpatient E&M: 71775 Subs Hosp L3
[2023-04-14 00:09] VITALS: BP 136/68; PULSE 72; RESP 16; TEMP 36.5; O2SAT 99
[2023-04-14 06:00] VITALS: BP 145/63; PULSE 71; RESP 16; TEMP 36.7; O2SAT 99
[2023-04-14] MEDS: Metoclopramide 10 MG/2 ML Vial 5 MG IV ×2 (06:18→11:39)
[2023-04-14] MEDS: 0.9% Saline Lock 10 ML Syringe IV ×2 (06:19→11:47)
[2023-04-14] MEDS: LORazepam 2 MG/ML Syringe 0.25 MG IV ×2 (06:19→13:49)
[2023-04-14] MEDS: Vancomycin 125 MG/5 ML Susp PO.SYRINGE PO ×3 (06:19→17:08)
[2023-04-14 07:24] VITALS: O2SAT 96
[2023-04-14] MEDS: Folic Acid 1 MG Tablet PO (08:21)
[2023-04-14] MEDS: sulfaSALAzine 500 MG Tablet 1000 MG PO ×2 (08:21→17:07)
[2023-04-14] MEDS: Ensure Plus High Protein 120 ML LIQUID PO ×3 (08:21→17:13)
[2023-04-14] MEDS: 0.9% Normal Saline 1,000 ML 100 ML IV (08:56)
[2023-04-14] MEDS: APIXABAN 5 MG TABLET PO ×2 (11:00)
[2023-04-14] MEDS: Budesonide 3 MG CAPSULE.EC 9 MG PO (11:00)
[2023-04-14] MEDS: Nystatin Powder 15gm Bottle 1 APPLIC TOPICAL ×2 (11:00)
[2023-04-14] MEDS: Cholecalciferol (Vit D3) 125 MCG CAPSULE (5,000 UNITS) PO (11:00)
[2023-04-14] MEDS: Diphenoxylate/Atrop 1 Tablet PO (11:00)
[2023-04-14] MEDS: Ondansetron 4 MG/2 ML Vial IV (11:39)
[2023-04-14] MEDS: Methylprednisolone Sod Succ 40 MG/ML VIAL IV (11:40)
[2023-04-14] MEDS: traMADol 50 MG Tablet PO (11:40)
[2023-04-14 12:00] VITALS: BP 147/66; PULSE 77; RESP 16; TEMP 36.4; O2SAT 97
[2023-04-14 12:24] LABS: Bedside Glucose 235 mg/dL (74-106)
[2023-04-14] MEDS: Menthol/Lanolin/Calamine/Znox 113 GM Tube 1 APPLIC TOPICAL (13:50)
--- NOTE | 2023-04-14 14:18 | PCM.PN.HOSP ---
Reason for Visit Reason for Visit: Diagnoses Enterocolitis due to Clostridium difficile, not specified as recurrent (04/11/23) Benign neoplasm of brain, unspecified (04/11/23) Type 2 diabetes mellitus with diabetic polyneuropathy (04/11/23) Old myocardial infarction (04/11/23) Peripheral vascular disease, unspecified (04/11/23) Gastroparesis (04/11/23) Cervicalgia (04/11/23) Nausea with vomiting, unspecified (04/11/23) Dysphagia, unspecified (04/11/23) Diarrhea, unspecified (04/11/23) Other malaise (04/11/23) Syncope and collapse (04/11/23) Personal history of transient ischemic attack (TIA), and cerebral infarction without residual deficits (04/11/23) Subjective Subjective Had a syncopal episode yesterday. Her IV pulled out and then she saw blood and passed out. Still with diarrhea, 5x yesterday and 3x today. Tolerating PO. No further vomiting. Objective Data Objective Data Vital Signs: Vital Signs Temp Pulse Resp BP Pulse Ox O2 Del Method 36.4 C L 77 16 147/66 H 97 Room Air 04/14/23 12:00 04/14/23 12:00 04/14/23 12:00 04/14/23 12:00 04/14/23 12:00 04/14/23 12:00 Oxygen Delivery Method Room Air Weight: 62.4 kg Body Mass Index (BMI) 23.6 Intake & Output: Intake and Output for Last 24 Hours 04/12/23 04/13/23 04/14/23 23:59 23:59 23:59 Intake Total 3818.33 / 3818.33 3476.67 / 3476.67 1110 / 1110 Output Total 475 / 475 500 / 500 Balance 3343.33 / 3343.33 2976.67 / 2976.67 1110 / 1110 Medical Nutrition Assessment Dietitian: Malnutrition Criteria Met Start: 04/11/23 15:41 Freq: Status: Active Protocol: Document 04/11/23 15:42 LO (Rec: 04/11/23 15:42 LO [id number]) Nutrition Malnutrition Evidence of Malnutrition Exists Yes Malnutrition (severe): Chronic Evidenced By Suboptimal Energy Intake ( Severe),Weight Loss (Severe) Intake Problem Increased Nutrient Needs (specify) Etiology protein relate to increased demand for healing Signs/Symptoms as evidenced by left and right heel pressure injuries Status Active Problem Clinical Problem Chronic Disease or Condition Related Malnutrition Etiology severe related to multiple medical issues Signs/Symptoms as evidenced by 14.9% weight loss in 7.5 months, <75% PO intake of estimated energy needs for >1 month, and severe orbital fat loss Status Active Problem 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 Dietitian 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s/Changes RD will keep diet liberalized to Regular due to poor PO intakes at this time. Goal is CCD/Cardiac diet when intakes are adequate. Continue 120mL EPHP TID with medpass to provide supplemental energy. Will order Alfredo BID with meals to promote wound healing . Lab / Micro Data Result Diagrams: 04/12/23 05:19 04/12/23 05:19 Labs: Laboratory Results - last 24 hr 04/12/23 05:19: Aldolase 4.6 04/12/23 05:19: Hemoglobin A1c 6.0 H 04/13/23 16:56: POC Glucose 329 H 04/14/23 11:46: POC Glucose 235 H Micro: Microbiology 04/12/23 14:56 Stool Stool Lactoferrin - Final 04/12/23 14:56 Stool Enteric Bacteriology - Final 04/12/23 14:56 Stool C. difficile GDH Antigen & Toxins - Final 04/12/23 14:56 Stool C. difficile DNA Amplification - Final Physical Exam Const alert and no apparent distress Neck Neck Narrative: reproducible left upper trapezius tenderness. Assessment & Plan Assessment/Plan (1) Syncopal episodes: PLAN: syncopal episode. Atypical of seizure despite the patient's having a history of seizures. Patient notes that she has not been eating or drinking very well. She also had felt nauseated before this episode occurred. MRI of the brain, MRA of the head neck were negative. Another episode on 04/13 after pulling out her IV and seeing blood. (2) Dysphagia: PLAN: improved started on steroids, scopolamine, reglan, lorazepam check fecal leuks, calprotectin and C diff, O+P, pancreatic elastase monitor overnight, and if continues to tolerate PO, medrol dose pack (3) C. 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 Will initiate oral vancomycin 125 mg 4 times a day. If tolerates that then over that she can be discharged. We will plan on treatment with for 10 days. PLAN: Plan Chronic conditions: Diabetes?continue routine diabetic management will allow patient have a routine diabetic diet Peripheral artery disease with debility and chronic lower extremity wounds?we will have nurse redress wounds on the floor as this is a chronic issue that is managed at home. We will continue routine home medications for her peripheral artery disease h/o VTE: apixaban DVT prophylaxis?not indicated. already anticoagulated DC home. Pt feels she can manage at home.
--- NOTE | 2023-04-14 14:22 | DCINST_ITS ---
Discharge Instructions Diet Discharge Diet: 2000 Calorie Control Diet Dressing / Incision Call your doctor if you observe: Fainting spells and - (intractable nausea and vomiting. worsening diarrhea. ) Follow Up Care Test Results: Test results from this visit will be discussed in further detail at your follow- up appointment, if applicable. Discharge Plan Admission Admit Date/Time: 04/11/23 16:05 Primary Reason for Your Visit: syncope. C. diff. Attending Provider: Aneesh Kingsley Primary Care Provider: Cody Billings Consulting Providers: Rogers Caldera Instructions Additional Instructions / Restrictions: You had a fainting spell due to dehydration and not eating. MRI of the brain was negative for stroke. I do not feel that your fainting was a seizure either. You have also been having the nausea and vomiting. Is unclear if this is directly related with the C. difficile or not but you will be on some medications to help with the nausea and vomiting. For the C. difficile, you will be on vancomycin for a total of 10 days. I would like for you to follow-up with Dr. Melissa in the near future as well. Discharge Orders/Prescriptions Prescriptions: New Ensure Plus High Protein 0.08 gram-1.5 kcal/mL Liquid 120 ml PO TIDCM Qty: 60 0RF scopolamine base 1 mg over 3 days Patch 3 Day 1 patch transdermal Q3D Qty: 10 0RF vancomycin [Firvanq] 25 mg/mL Recon Soln 125 mg PO Q6 9 Days Qty: 180 0RF methylprednisolone [Medrol (Neil)] 4 mg tablets,dose pack 4 mg PO DAILY Qty: 21 0RF Continued folic acid 1 mg tablet 1 mg PO DAILY Qty: 30 11RF sulfasalazine 500 mg tablet 1 g PO BID Qty: 120 11RF Rx Instructions: give with food (meal/snack); take with folic acid albuterol sulfate [Ventolin HFA] 90 mcg/actuation Hfa Aerosol Inhaler 1 puff inhalation Q4H PRN PRN (Reason: SHORTNESS OF BREATH) Qty: 0 0RF ondansetron 4 mg Tablet,Disintegrating 4 mg PO Q6H PRN PRN (Reason: NAUSEA) Qty: 0 0RF tramadol 50 mg Tablet 50 mg PO Q6H PRN (Reason: Pain) acetaminophen 325 mg Tablet 975 mg PO TID PRN (Reason: Pain) Eliquis 5 mg Tablet 5 mg PO BID Qty: 120 0RF diphenoxylate-atropine 2.5-0.025 mg tablet 1 tab PO BID Label Comments: TAKE 1 TABLET BY MOUTH TWICE A DAY NEEDED FOR DIARRHEA pantoprazole 40 mg Tablet,Delayed Release (Dr/Ec) 40 mg PO DAILY Culturelle 10 billion cell Capsule 1 cap PO DAILY cholecalciferol (vitamin D3) 125 mcg (5,000 unit) Tablet 125 mcg PO DAILY budesonide 3 mg capsule,delayed,extend.release 9 mg PO DAILY Label Comments: TAKE 3 CAPSULES (9 MG TOTAL) (3 X 3 MG) BY MOUTH DAILY Referrals / Follow Up: [facility] [Provider Group] - 05/19/23 1:30 pm Juan Amador DPM [Med Staff - Active Staff] - Within 2 Weeks Cody Billings MD [Primary Care Provider] - Within 2 Weeks Disposition Disposition (needs filled in before D/C Order can be placed): Home, Self Care
--- NOTE | 2023-04-14 14:29 | PCM.DC.SUM ---
Providers Date of Admission: 04/11/23 Primary Care Physician: Dr. Cody Billings MD Consultations 04/10/23 20:38 Consult: Onc/Wound/wad blanking press adjuster Routine Comment: Reason for Consult:: left foot wound 04/11/23 15:51 Consult: Gastroenterology Routine Consulting Provider: [facility] Reason for Consult: intractable nausea and vomiting. EMERGENT Consult: No MD Notified: Yes Date Notified: 04/11/23 Time Notified: 15:29 Method of Notification: Verbal Reason For Visit: SYNCOPAL EPISODE/ POSSIBLE TIA Diagnosis Discharge Diagnosis (1) Syncopal episodes: Status: Acute Code(s): R55 - Syncope and collapse Plan: syncopal episode. Atypical of seizure despite the patient's having a history of seizures. Patient notes that she has not been eating or drinking very well. She also had felt nauseated before this episode occurred. MRI of the brain, MRA of the head neck were negative. Another episode on 04/13 after pulling out her IV and seeing blood. (2) Dysphagia: Status: Acute Code(s): R13.10 - Dysphagia, unspecified Plan: improved started on steroids, scopolamine, reglan, lorazepam check fecal leuks, calprotectin and C diff, O+P, pancreatic elastase monitor overnight, and if continues to tolerate PO, medrol dose pack (3) C. difficile colitis: Status: Acute Code(s): A04.72 - Enterocolitis due to Clostridium difficile, not specified as recurrent Plan: recurrent last positive test was 08/29/2022 Has a vancomycin allergy list but states that she has tolerated oral vancomycin in the past. Will initiate oral vancomycin 125 mg 4 times a day. If tolerates that then over that she can be discharged. We will plan on treatment with for 10 days. Plan Chronic conditions: Diabetes?continue routine diabetic management will allow patient have a routine diabetic diet Peripheral artery disease with debility and chronic lower extremity wounds?we will have nurse redress wounds on the floor as this is a chronic issue that is managed at home. We will continue routine home medications for her peripheral artery disease h/o VTE: apixaban DVT prophylaxis?not indicated. already anticoagulated DC home. Pt feels she can manage at home. Medications at Discharge Home Medications albuterol sulfate 90 mcg/actuation aerosol inhaler (Ventolin HFA) 1 puff inhalation Q4H PRN PRN SHORTNESS OF BREATH #0 grams 03/25/21 ondansetron 4 mg disintegrating tablet 4 mg PO Q6H PRN PRN NAUSEA #0 tabs 03/25/21 tramadol 50 mg tablet 50 mg PO Q6H PRN Pain 05/18/21 acetaminophen 325 mg tablet 975 mg PO TID PRN Pain 12/31/22 apixaban 5 mg tablet (Eliquis) 5 mg PO BID #120 tabs 01/03/23 folic acid 1 mg tablet 1 mg PO DAILY #30 tabs 02/15/23 sulfasalazine 500 mg tablet 1 g PO BID #120 tabs 02/15/23 Lactobacillus rhamnosus GG 10 billion cell capsule (Culturelle) 1 cap PO DAILY GUT HEALTH 04/10/23 budesonide 3 mg capsule,delayed,extended release 9 mg PO DAILY cdiff 04/10/23 cholecalciferol (vitamin D3) 125 mcg (5,000 unit) tablet 125 mcg PO DAILY SUPPLEMENT 04/10/23 diphenoxylate-atropine 2.5 mg-0.025 mg tablet 1 tab PO BID DIARRHEA 04/10/23 pantoprazole 40 mg tablet,delayed release 40 mg PO DAILY GERD 04/10/23 food supplemt, lactose-reduced 0.08 gram-1.5 kcal/mL oral liquid (Ensure Plus High Protein) 120 ml PO TIDCM #60 BOTTLES 04/14/23 methylprednisolone 4 mg tablets in a dose pack (Medrol (Neil)) 4 mg PO DAILY #21 tabs 04/14/23 scopolamine base 1 mg over 3 days transdermal patch 1 patch transdermal Q3D #10 ea 04/14/23 vancomycin 25 mg/mL oral solution (Firvanq) 125 mg (5 mL) PO Q6 9 days #180 mL 04/14/23 Hospital Course Operations None Procedures None Summary of Care Provided Minutes Spent on Discharge: 33 Hospital Course: Six 8-year-old female presents with a protracted vasovagal syncope. Patient passed out at the table and then had a prolonged recovery. MRI of the brain was negative. Patient later stated that she has not been eating or drinking really over the past week and anytime she tries eat or drink anything, including water, she would throw it up. She had been seen by Dr. Melissa and was consulted him. Started on scopolamine, methylprednisolone. Given her history of C. difficile he did check her for C. difficile and that actually came back positive. Initially was not complaining of diarrhea but subsequently did develop. Patient was started on vancomycin. This is recurrent but is not been anytime recently that she has had C. difficile so she will be on a 10-day course of vancomycin. Patient had another syncopal episode while in the hospital but that was after she pulled out her IV and saw blood. Patient otherwise feels well. Medical Records Data Medical Nutrition Assessment Dietitian: Malnutrition Criteria Met Start: 04/11/23 15:41 Freq: Status: Active Protocol: Document 04/11/23 15:42 LO (Rec: 04/11/23 15:42 LO [id number]) Nutrition Malnutrition Evidence of Malnutrition Exists Yes Malnutrition (severe): Chronic Evidenced By Suboptimal Energy Intake ( Severe),Weight Loss (Severe) Intake Problem Increased Nutrient Needs (specify) Etiology protein relate to increased demand for healing Signs/Symptoms as evidenced by left and right heel pressure injuries Status Active Problem Clinical Problem Chronic Disease or Condition Related Malnutrition Etiology severe related to multiple medical issues Signs/Symptoms as evidenced by 14.9% weight loss in 7.5 months, <75% PO intake of estimated energy needs for >1 month, and severe orbital fat loss Status Active Problem 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 Dietitian 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s/Changes RD will keep diet liberalized to Regular due to poor PO intakes at this time. Goal is CCD/Cardiac diet when intakes are adequate. Continue 120mL EPHP TID with medpass to provide supplemental energy. Will order Alfredo BID with meals to promote wound healing . Weight / BMI Weight Weight: 62.4 kg Body Mass Index (BMI) 23.6 ABG / Lab / Microbiology Data Result Diagrams: 04/12/23 05:19 04/12/23 05:19 Laboratory: Laboratory Results - last 24 hr 04/12/23 05:19: Aldolase 4.6 04/12/23 05:19: Hemoglobin A1c 6.0 H 04/13/23 16:56: POC Glucose 329 H 04/14/23 11:46: POC Glucose 235 H Microbiology: Microbiology 04/12/23 14:56 Stool Stool Lactoferrin - Final 04/12/23 14:56 Stool Enteric Bacteriology - Final 04/12/23 14:56 Stool C. difficile GDH Antigen & Toxins - Final 04/12/23 14:56 Stool C. difficile DNA Amplification - Final D/C Instructions Discharge Diet: 2000 Calorie Control Diet Call your doctor if you observe: Fainting spells and - (intractable nausea and vomiting. worsening diarrhea. ) Meaningful Use Info Meaningful Use Diagnoses (Choose all that apply): None applicable Discharge Plan Admission Admit Date/Time: 04/11/23 16:05 Primary Reason for Your Visit: syncope. C. diff. Attending Provider: Aneesh Kingsley Primary Care Provider: Cody Billings Consulting Providers: Rogers Caldera Instructions Additional Instructions / Restrictions: You had a fainting spell due to dehydration and not eating. MRI of the brain was negative for stroke. I do not feel that your fainting was a seizure either. You have also been having the nausea and vomiting. Is unclear if this is directly related with the C. difficile or not but you will be on some medications to help with the nausea and vomiting. For the C. difficile, you will be on vancomycin for a total of 10 days. I would like for you to follow-up with Dr. Melissa in the near future as well. Discharge Orders/Prescriptions Prescriptions: New Ensure Plus High Protein 0.08 gram-1.5 kcal/mL Liquid 120 ml PO TIDCM Qty: 60 0RF scopolamine base 1 mg over 3 days Patch 3 Day 1 patch transdermal Q3D Qty: 10 0RF vancomycin [Firvanq] 25 mg/mL Recon Soln 125 mg PO Q6 9 Days Qty: 180 0RF methylprednisolone [Medrol (Neil)] 4 mg tablets,dose pack 4 mg PO DAILY Qty: 21 0RF Continued folic acid 1 mg tablet 1 mg PO DAILY Qty: 30 11RF sulfasalazine 500 mg tablet 1 g PO BID Qty: 120 11RF Rx Instructions: give with food (meal/snack); take with folic acid albuterol sulfate [Ventolin HFA] 90 mcg/actuation Hfa Aerosol Inhaler 1 puff inhalation Q4H PRN PRN (Reason: SHORTNESS OF BREATH) Qty: 0 0RF ondansetron 4 mg Tablet,Disintegrating 4 mg PO Q6H PRN PRN (Reason: NAUSEA) Qty: 0 0RF tramadol 50 mg Tablet 50 mg PO Q6H PRN (Reason: Pain) acetaminophen 325 mg Tablet 975 mg PO TID PRN (Reason: Pain) Eliquis 5 mg Tablet 5 mg PO BID Qty: 120 0RF diphenoxylate-atropine 2.5-0.025 mg tablet 1 tab PO BID Label Comments: TAKE 1 TABLET BY MOUTH TWICE A DAY NEEDED FOR DIARRHEA pantoprazole 40 mg Tablet,Delayed Release (Dr/Ec) 40 mg PO DAILY Culturelle 10 billion cell Capsule 1 cap PO DAILY cholecalciferol (vitamin D3) 125 mcg (5,000 unit) Tablet 125 mcg PO DAILY budesonide 3 mg capsule,delayed,extend.release 9 mg PO DAILY Label Comments: TAKE 3 CAPSULES (9 MG TOTAL) (3 X 3 MG) BY MOUTH DAILY Referrals / Follow Up: [facility] [Provider Group] - 05/19/23 1:30 pm Juan Amador DPM [Med Staff - Active Staff] - Within 2 Weeks Cody Billings MD [Primary Care Provider] - Within 2 Weeks Disposition Disposition (needs filled in before D/C Order can be placed): Home, Self Care Charges/Coding Visit Charges Inpatient E&M: 16196 Disch Hosp >30min
--- NOTE | 2023-04-14 15:30 | CASEMGMT ---
CINDI BLOUNT updated that patient will be discharge. CINDI BLOUNT reviewed med and will need oral vanco. CINDI BLOUNT called [facility] regarding cost $174 but they will not have supply till Monday. CINDI BLOUNT called [facility] retail rx and they have supply but cost is the same. Vanco capsules per [facility] in [facility] retail rx is cheaper at $57. CINDI BLOUNT updated hospitalist and order provided to pharmacy verbally by hospitalist. CINDI BLOUNT called [facility] to notify of discharge, planned start of care is for Monday. CINDI BLOUNT updated patient and family at bedside regarding vanco cost and [facility] start of care. Patient and family had no further questions or concerns at this time.
[2023-04-14] MEDS: Scopolamine 1mg/72hr Patch 1 PATCH TD (17:09)
[2023-04-14 18:00] VITALS: BP 141/63; PULSE 73; RESP 14; TEMP 36.6; O2SAT 98
[2023-04-18 21:07] LABS: Pancreatic Elastase, Fecal 78 (>200)
[2023-04-20 17:07] LABS: Calprotectin, Stool 52 ug/g (0-120)
== END 2023-04-14 18:03 | disposition home or self-care (01) | DRG 371 ==
LOC: ED 19:40 → PCU 21:07
PROVIDERS: Internal Medicine Gastroenterology; Admitting Provider Family Medicine; Emergency Provider Emergency Medicine; PCP Family Medicine
DX: A04.71 Enterocolitis due to Clostridium difficile, recurrent (principal); E43 Unspecified severe protein-calorie malnutrition; L89.616 Pressure-induced deep tissue damage of right heel; L89.620 Pressure ulcer of left heel, unstageable; E11.42 Type 2 diabetes mellitus with diabetic polyneuropathy; E86.0 Dehydration; E11.51 Type 2 diabetes mellitus with diabetic peripheral angiopathy without gangrene; Z79.4 Long term (current) use of insulin; E11.43 Type 2 diabetes mellitus with diabetic autonomic (poly)neuropathy; D32.0 Benign neoplasm of cerebral meninges; Z89.432 Acquired absence of left foot; K31.84 Gastroparesis; I25.2 Old myocardial infarction; M54.81 Occipital neuralgia; R13.10 Dysphagia, unspecified; R53.81 Other malaise; Z68.23 Body mass index [BMI] 23.0-23.9, adult; Z79.899 Other long term (current) drug therapy; Z86.73 Personal history of transient ischemic attack (TIA), and cerebral infarction without residual deficits; Z86.69 Personal history of other diseases of the nervous system and sense organs; Z79.891 Long term (current) use of opiate analgesic
CPT/HCPCS: 36415; 70450; 70544; 70547; 70551; 72125; 74018; 80048; 80053; 80061; 81001; 82085; 82550; 82653; 82962; 83036; 83605; 83630; 83993; 85025; 85652; 86140; 87177; 87209; 87493; 87506; 93005; 94762; 97110; 97161; 97166; 97530; 97535; 97802; 97803; 99285; J7030; A4216; J2405

== ENCOUNTER → 2023-07-04 | Outpatient (CLI) | payer MEDICARE, OTHER, SELFPAY | END | disposition home or self-care (01) | PROVIDERS: PCP Family Medicine; Referring Provider Podiatrist; Visit Provider Podiatrist | DX: L97.512 Non-pressure chronic ulcer of other part of right foot with fat layer exposed (principal) | CPT/HCPCS: 87070; 87075; 87077; 87186; 87205 ==

== ENCOUNTER 2023-12-26 10:45 | Outpatient (RCR) | payer MEDICARE, OTHER, SELFPAY ==
[2023-12-05 10:32] VITALS: BP 116/56; PULSE 62; RESP 18; TEMP 36.2
--- NOTE | 2023-12-05 11:00 | HP.PCM_ITS ---
History of Present Illness Date of Service: 12/05/23 Chief Complaint: Right posterior heel ulceration History of Wound: 67-year-old female recently discharged from the hospital presents today receiving linezolid orally for a right heel wound. Patient has new onset blister to left foot uncertain how. She states that she does not bear weight to the site at all. States that she does not remember hitting the area. She states that she sleeps on her back with offloading boots at all times and does not sleep on her left side. She denies constitutional's at this time denies any pain is no other complaints. 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 PAD (peripheral artery disease) Type 2 diabetes mellitus with diabetic polyneuropathy Ulcer of amputation stump of foot Wound of left foot Home Medications albuterol sulfate 90 mcg/actuation aerosol inhaler (Ventolin HFA) 1 puff inhalation Q4H PRN PRN SHORTNESS OF BREATH #0 grams 03/25/21 [Rx Last Taken 2 Weeks Ago ~03/27/23] ondansetron 4 mg disintegrating tablet 4 mg PO Q6H PRN PRN NAUSEA #0 tabs 03/25/21 [Rx Last Taken 04/10/23] tramadol 50 mg tablet 50 mg PO Q6H PRN Pain 05/18/21 [History Last Taken Unknown] acetaminophen 325 mg tablet 975 mg PO TID PRN Pain 12/31/22 [History Last Taken Unknown] folic acid 1 mg tablet 1 mg PO DAILY #30 tabs 02/15/23 [Rx Last Taken 04/09/23] sulfasalazine 500 mg tablet 1 g (2 x 500 mg) PO BID #120 tabs 02/15/23 [Rx Last Taken 04/10/23] Lactobacillus rhamnosus GG 10 billion cell capsule (Culturelle) 1 cap PO DAILY GUT HEALTH 04/10/23 [History Last Taken 04/09/23] budesonide 3 mg capsule,delayed,extended release 9 mg PO DAILY cdiff 04/10/23 [History Last Taken 04/10/23] cholecalciferol (vitamin D3) 125 mcg (5,000 unit) tablet 125 mcg PO DAILY SUPPLEMENT 04/10/23 [History Last Taken 04/09/23] diphenoxylate-atropine 2.5 mg-0.025 mg tablet 1 tab PO BID DIARRHEA 04/10/23 [History Last Taken 04/10/23] pantoprazole 40 mg tablet,delayed release 40 mg PO DAILY GERD 04/10/23 [History Last Taken 04/10/23] food supplemt, lactose-reduced 0.08 gram-1.5 kcal/mL oral liquid (Ensure Plus High Protein) 120 ml PO TIDCM #60 BOTTLES 04/14/23 [Rx Last Taken Unknown] methylprednisolone 4 mg tablets in a dose pack (Medrol (Neil)) 4 mg PO DAILY #21 tabs 04/14/23 [Rx Last Taken Unknown] vancomycin 25 mg/mL oral solution (Firvanq) 125 mg (5 mL) PO Q6 9 days #180 mL 04/14/23 [Rx Last Taken Unknown] scopolamine base 1 mg over 3 days transdermal patch 1 patch transdermal Q3D #10 ea 05/19/23 [Rx Last Taken Unknown] ondansetron 4 mg disintegrating tablet 4 mg PO Q8H #20 tabs 08/10/23 [Rx Last Taken Unknown] Allergy/AdvReac Type Severity Reaction Status Date / Time cefprozil Allergy Shortness Verified 05/19/23 15:12 of breath ceftriaxone Allergy Hives Verified 05/19/23 15:12 clindamycin Allergy Rash Verified 05/19/23 15:12 enalapril Allergy Other Verified 05/19/23 15:12 enoxaparin Allergy Rash Verified 05/19/23 15:12 heparin Allergy Rash Verified 05/19/23 15:12 levalbuterol Allergy Other Verified 05/19/23 15:12 morphine Allergy Shortness Verified 05/19/23 15:12 of breath Penicillins Allergy Anaphylaxis Verified 05/19/23 15:12 shellfish derived Allergy Anaphylaxis Verified 05/19/23 15:12 valsartan Allergy Other Verified 05/19/23 15:12 vancomycin Allergy Rash Verified 05/19/23 15:12 atorvastatin AdvReac Other Verified 05/19/23 15:12 rosuvastatin [From Crestor] AdvReac Other Verified 05/19/23 15:12 Family History Mother Cancer Lung CA w/ tobacco use history. Diabetes COPD (chronic obstructive pulmonary disease) Father Cancer Lung CA w/ tobacco use history. Diabetes COPD (chronic obstructive pulmonary disease) Heart disease Surgical History History of appendectomy History of eye surgery History of foot surgery History of lumpectomy History of tubal ligation Status post transmetatarsal amputation of left foot Tubal ligation status Social History household members: none Smoking Status: Never smoker alcohol intake: never substance use type: does not use Vital Signs Vital Signs Vital Signs: 12/05/23 10:32 Temperature 97.2 F L Temperature Source Temporal Pulse Rate 62 Respiratory Rate 18 Blood Pressure 116/56 L Blood Pressure Mean 76 Blood Pressure Source Monitor Blood Pressure Position Semi-Fowlers Blood Pressure Location Left Arm Physical Exam Narrative Neurovascular status unchanged. Patient has intact pulses well-hydrated skin. Patient has absent light touch protective sensation bilateral feet. Full-thickness wounds to bilateral heels. Pre and postdebridement measurements documented nursing notes. Postdebridement wounds demonstrate 100% granular base. No evidence deep probing undermining or signs of infection at current. 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 No wound forming deformity noted. Muscular strength diminished to 4-5 bilateral lower extremity compartments. Const alert and oriented x3 Debridement Note Debridement Note Post-Debridement Measurements and Additional Note: Post-Debridement Measurements/Treatment - Nurse 1 - General Ulcer Assessment Start: 12/05/23 10:32 Freq: Status: Active Protocol: INDIA Activity Type Activity Date Activity User E-sign Co-sign Detail Recorded Client Recorded Date Recorded By Document 12/05/23 10:32 RB Desktop 12/05/23 10:39 RB 12/05/23 10:32 - Today's Visit Information Type of service Initial Visit Arrival Mode Wheelchair Transfer Assistance None Patient Identification Verified (Name & Yes ) Patient Requires Transmission-Based No Precautions Vital Signs Temperature (97.8 F-99.1 F) 97.2 F L Temperature Source Temporal Pulse Rate (60-100) 62 Pulse Location Monitor Respiratory Rate (12-18) 18 Respiratory rate source Observation Blood Pressure (90/60-120/80) 116/56 L Blood Pressure Mean 76 Source Monitor Position Semi-Fowlers Blood Pressure Location Left Arm History Since Last Visit- (Skip if this is Patient's initial visit) Have you changed medications since your No last visit? Any new allergies or adverse reactions No Had a fall/change in ADL's that may No increase risk of falls Signs or symptoms of abuse and/or No neglect since last visit Have you been in the hospital since your No last visit? Has dressing in place as prescribed Yes Has compression in place as prescribed No Has offloadiing in place as prescribed Yes Experienced any changes in pain level or No management Pain Scale: 0-10 Numeric Is Patient Pain Free? No bilat heels -Description Throbbing -Intensity 2 -Duration (hours) Acute -Pain Behavior Irritability -Pain Aggravating Factors ADL's,Exercise/ Activity -Alleviating Factors/Interventions None -Effectiveness of Alleviating Factor/ Minimally Intervention effective WC - Nurse 1 - General Ulcer Measurement Start: 12/05/23 10:32 Freq: Status: Active Protocol: Activity Type Activity Date Activity User E-sign Co-sign Detail Recorded Client Recorded Date Recorded By Document 12/05/23 10:32 RB Desktop 12/05/23 10:39 RB 12/05/23 10:32 Wound Center Nurse 1 10. R heel -Combined with other wound No -Current Size (cm) - Length 1 -Current Size (cm) - Width 0.8 -Current Size (cm) - Depth 0.1 -Total Square Cm 0.8 -Photo Taken Yes -Tunneling No -Undermining/Tunneling No -Circular Undermining No -Exudate Amt Medium -Exudate Type Serosanguineous -Wound Margin Distinct, Outline Attached -Granulation Amt Medium (34-66%) -Granulation Quality Bodega -Slough/Fibrin Yes -Necrosis Amt Medium (34-66%) -Necrotic Tissue Type Adherent Slough -Structure Exposed N/A -Texture (Margy-wound Skin Appearance) Assessed,Callus -Moisture (Margy-wound Skin Appearance) Assessed -Color (Margy-wound Skin Appearance) Assessed -Temperature (Margy-wound Skin No Abnormality Appearance) (Pt Warm) -Tenderness on Palpation (Maryg-wound No Skin Appearance) -Ulcer Cleansing Wound Cleanser -Foul Odor after Cleansing No -Anesthetic Used 5% Lidocaine Gel 9. L heel cluster -Combined with other wound No -Current Size (cm) - Length 1.8 -Current Size (cm) - Width 2 -Current Size (cm) - Depth 0.2 -Total Square Cm 3.6 -Photo Taken Yes -Tunneling No -Undermining/Tunneling No -Circular Undermining No -Exudate Amt Medium -Exudate Type Serosanguineous -Wound Margin Distinct, Outline Attached -Granulation Amt Medium (34-66%) -Granulation Quality Bodega -Slough/Fibrin Yes -Necrosis Amt Medium (34-66%) -Necrotic Tissue Type Adherent Slough -Structure Exposed N/A -Texture (Margy-wound Skin Appearance) Assessed,Callus -Moisture (Margy-wound Skin Appearance) Assessed -Color (Margy-wound Skin Appearance) Assessed -Temperature (Margy-wound Skin No Abnormality Appearance) (Pt Warm) -Tenderness on Palpation (Margy-wound No Skin Appearance) -Ulcer Cleansing Wound Cleanser -Foul Odor after Cleansing No -Anesthetic Used 5% Lidocaine Gel WC - Nurse 2 - General Ulcer CM Notes Start: 12/05/23 10:32 Freq: Status: Active Protocol: Activity Type Activity Date Activity User E-sign Co-sign Detail Recorded Client Recorded Date Recorded By Document 12/05/23 10:54 Laptop 12/05/23 11:00 12/05/23 10:54 Wound Center Nurse 2 10. R heel -Time 10:55 -Correct Patient Yes -Correct Side, Site, Position Yes -Correct Procedure Yes -Procedure Performed Yes -Type of Procedure Debridement -Clinical Debridement Subcutaneous -Tissue Removed Subcutaneous -Post Debridement (cm) - Length 1.1 -Post Debridement (cm) - Width 0.8 -Post Debridement (cm) - Depth 0.1 -Total Square (Post) (cm) 0.88 -Area of Debridement (cm) - Length 1.1 -Area of Debridement (cm) - Width 0.8 -Total Square (Area) (cm) 0.88 -Tunneling No -Undermining/Tunneling No -Circular Undermining No -Wound/Ulcer Outcome Not Healed -Ulcer Cleansing Rinsed/ Irrigated with Saline -Foul Odor after Cleansing No -Bioengineered Tissue No -Bleeding Controlled with Pressure -Treatment Response Procedure Tolerated Well -Offloading No -Debridement - Subq, 1st 20sq cm No 9. L heel cluster -Time 10:55 -Correct Patient Yes -Correct Side, Site, Position Yes -Correct Procedure Yes -Procedure Performed Yes -Type of Procedure Debridement -Clinical Debridement Subcutaneous -Tissue Removed Subcutaneous -Post Debridement (cm) - Length 1.8 -Post Debridement (cm) - Width 2.1 -Post Debridement (cm) - Depth 0.2 -Total Square (Post) (cm) 3.78 -Area of Debridement (cm) - Length 1.8 -Area of Debridement (cm) - Width 2.1 -Total Square (Area) (cm) 3.78 -Tunneling No -Undermining/Tunneling No -Circular Undermining No -Wound/Ulcer Outcome Not Healed -Ulcer Cleansing Rinsed/ Irrigated with Saline -Foul Odor after Cleansing No -Bioengineered Tissue No -Bleeding Controlled with Pressure -Treatment Response Procedure Tolerated Well -Offloading No -Debridement - Subq, 1st 20sq cm Yes Pain Scale: 0-10 Numeric Is Patient Pain Free? Yes Assessment/Plan Assessment/Plan (1) Type 2 diabetes mellitus with foot ulcer: CODE(S): E11.621 - Type 2 diabetes mellitus with foot ulcer; L97.509 - Non-pressure chronic ulcer of other part of unspecified foot with unspecified severity QUALIFIERS: Diabetes mellitus superintendent container terminal insulin use: with shelter use Qualified Code(s): E11.621 - Type 2 diabetes mellitus with foot ulcer; L97.509 - Non-pressure chronic ulcer of other part of unspecified foot with unspecified severity; Z79.4 - care home (current) use of insulin PLAN: Exam performed Bilateral heels excisionally debrided down to including level subcutaneous tissue of all nonviable tissue using 3 mm dermal curette. No anesthesia due to neuropathy. Topical hemostasis applied with pressure. Patient tolerated procedure well. Pre and postdebridement measurements documented nursing notes. Patient is to offload heels at all times when at rest using Prevalon or PRAFO offloading boots. Patient will continue home health care dressing changes consisting of silver alg inate and overlying bordered foam dressing. Will plan for advanced wound care grafting. Patient will follow-up weekly. 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
[2023-12-12 10:50] VITALS: BP 158/71; PULSE 66; RESP 18; TEMP 37.2
--- NOTE | 2023-12-12 11:13 | PN.PCM_ITS ---
History of Present Illness Date of Service: 12/12/23 Chief Complaint: Right posterior heel ulceration History of Wound: 67-year-old female recently discharged from the hospital presents today receiving linezolid orally for a right heel wound. Patient has new onset blister to left foot uncertain how. She states that she does not bear weight to the site at all. States that she does not remember hitting the area. She states that she sleeps on her back with offloading boots at all times and does not sleep on her left side. She denies constitutional's at this time denies any pain is no other complaints. Objective Data Objective Data Vital Signs: Vital Signs Temp Pulse Resp BP 99 F 66 18 158/71 H 12/12/23 10:50 12/12/23 10:50 12/12/23 10:50 12/12/23 10:50 Physical Exam Narrative Neurovascular status unchanged. Patient has intact pulses well-hydrated skin. Patient has absent light touch protective sensation bilateral feet. Full-thickness wounds to bilateral heels. Pre and postdebridement measurements documented nursing notes. Postdebridement wounds demonstrate 100% granular base. No evidence deep probing undermining or signs of infection at current. 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 No wound forming deformity noted. Muscular strength diminished to 4-5 bilateral lower extremity compartments. Const alert and oriented x3 Debridement Note Debridement Note Post-Debridement Measurements and Additional Note: Post-Debridement Measurements/Treatment - Nurse 1 - General Ulcer Assessment Start: 12/05/23 10:32 Freq: Status: Active Protocol: WC.[email or web address] Activity Type Activity Date Activity User E-sign Co-sign Detail Recorded Client Recorded Date Recorded By Document 12/05/23 10:32 RB Desktop 12/05/23 10:39 RB Document 12/12/23 10:50 RB Desktop 12/12/23 10:55 RB 12/05/23 12/12/23 10:32 10:50 - Today's Visit Information Type of service Initial Visit Follow-up Visit (Physician/MANAGER MORTGAGE ) Arrival Mode Wheelchair Wheelchair Transfer Assistance None Manual Patient Identification Verified (Name & Yes Yes ) Patient Requires Transmission-Based No No Precautions Vital Signs Temperature (97.8 F-99.1 F) 97.2 F L 99 F Temperature Source Temporal Temporal Pulse Rate (60-100) 62 66 Pulse Location Monitor Monitor Respiratory Rate (12-18) 18 18 Respiratory rate source Observation Observation Blood Pressure (90/60-120/80) 116/56 L 158/71 H Blood Pressure Mean (mm Hg) 76 100 Source Monitor Monitor Position Semi-Fowlers Semi-Fowlers Blood Pressure Location Left Arm Left Arm History Since Last Visit- (Skip if this is Patient's initial visit) Have you changed medications since your No No last visit? Any new allergies or adverse reactions No No Had a fall/change in ADL's that may No No increase risk of falls Signs or symptoms of abuse and/or No No neglect since last visit Have you been in the hospital since your No No last visit? Has dressing in place as prescribed Yes Yes Has compression in place as prescribed No No Has offloadiing in place as prescribed Yes Yes Experienced any changes in pain level or No No management Pain Scale: 0-10 Numeric Is Patient Pain Free? No Yes bilat heels -Description Throbbing -Intensity 2 -Duration (hours) Acute -Pain Behavior Irritability -Pain Aggravating Factors ADL's,Exercise/ Activity -Alleviating Factors/Interventions None -Effectiveness of Alleviating Factor/ Minimally Intervention effective WC - Nurse 1 - General Ulcer Measurement Start: 12/05/23 10:32 Freq: Status: Active Protocol: Activity Type Activity Date Activity User E-sign Co-sign Detail Recorded Client Recorded Date Recorded By Document 12/05/23 10:32 RB Desktop 12/05/23 10:39 RB Document 12/12/23 10:50 RB Desktop 12/12/23 10:55 RB 12/05/23 12/12/23 10:32 10:50 Wound Center Nurse 1 10. R heel -Combined with other wound No No -Current Size (cm) - Length 1 0.6 -Current Size (cm) - Width 0.8 0.7 -Current Size (cm) - Depth 0.1 0.1 -Total Square Cm 0.8 0.42 -Photo Taken Yes -Tunneling No No -Undermining/Tunneling No No -Circular Undermining No No -Exudate Amt Medium Medium -Exudate Type Serosanguineous Serosanguineous -Wound Margin Distinct, Distinct, Outline Outline Attached Attached -Granulation Amt Medium (34-66%) Medium (34-66%) -Granulation Quality [place] -Slough/Fibrin Yes Yes -Necrosis Amt Medium (34-66%) Medium (34-66%) -Necrotic Tissue Type Adherent Slough Adherent Slough -Structure Exposed N/A N/A -Texture (Margy-wound Skin Appearance) Assessed,Callus Assessed -Moisture (Margy-wound Skin Appearance) Assessed Assessed -Color (Margy-wound Skin Appearance) Assessed Assessed -Temperature (Margy-wound Skin No Abnormality No Abnormality Appearance) (Pt Warm) (Pt Warm) -Tenderness on Palpation (Margy-wound No No Skin Appearance) -Ulcer Cleansing Wound Cleanser Wound Cleanser -Foul Odor after Cleansing No No -Anesthetic Used 5% Lidocaine 5% Lidocaine Gel Gel 9. L heel cluster -Combined with other wound No No -Current Size (cm) - Length 1.8 1 -Current Size (cm) - Width 2 2.1 -Current Size (cm) - Depth 0.2 0.2 -Total Square Cm 3.6 2.1 -Photo Taken Yes -Tunneling No No -Undermining/Tunneling No No -Circular Undermining No No -Exudate Amt Medium Medium -Exudate Type Serosanguineous Serosanguineous -Wound Margin Distinct, Distinct, Outline Outline Attached Attached -Granulation Amt Medium (34-66%) Medium (34-66%) -Granulation Quality [place] -Slough/Fibrin Yes Yes -Necrosis Amt Medium (34-66%) Medium (34-66%) -Necrotic Tissue Type Adherent Slough Adherent Slough -Structure Exposed N/A N/A -Texture (Margy-wound Skin Appearance) Assessed,Callus Assessed -Moisture (Margy-wound Skin Appearance) Assessed Assessed -Color (Margy-wound Skin Appearance) Assessed Assessed -Temperature (Margy-wound Skin No Abnormality No Abnormality Appearance) (Pt Warm) (Pt Warm) -Tenderness on Palpation (Margy-wound No No Skin Appearance) -Ulcer Cleansing Wound Cleanser Wound Cleanser -Foul Odor after Cleansing No No -Anesthetic Used 5% Lidocaine 5% Lidocaine Gel Gel Lower Limb Edema Present Yes Right Calf (cm) 28.7 Right Ankle (cm) 23 Left Calf (cm) 29.5 Left Ankle (cm) 22.5 WC - Nurse 2 - General Ulcer CM Notes Start: 12/05/23 10:32 Freq: Status: Active Protocol: Activity Type Activity Date Activity User E-sign Co-sign Detail Recorded Client Recorded Date Recorded By Document 12/05/23 10:54 Laptop 12/05/23 11:00 12/05/23 10:54 Wound Center Nurse 2 10. R heel -Time 10:55 -Correct Patient Yes -Correct Side, Site, Position Yes -Correct Procedure Yes -Procedure Performed Yes -Type of Procedure Debridement -Clinical Debridement Subcutaneous -Tissue Removed Subcutaneous -Post Debridement (cm) - Length 1.1 -Post Debridement (cm) - Width 0.8 -Post Debridement (cm) - Depth 0.1 -Total Square (Post) (cm) 0.88 -Area of Debridement (cm) - Length 1.1 -Area of Debridement (cm) - Width 0.8 -Total Square (Area) (cm) 0.88 -Tunneling No -Undermining/Tunneling No -Circular Undermining No -Wound/Ulcer Outcome Not Healed -Ulcer Cleansing Rinsed/ Irrigated with Saline -Foul Odor after Cleansing No -Bioengineered Tissue No -Bleeding Controlled with Pressure -Treatment Response Procedure Tolerated Well -Offloading No -Debridement - Subq, 1st 20sq cm No 9. L heel cluster -Time 10:55 -Correct Patient Yes -Correct Side, Site, Position Yes -Correct Procedure Yes -Procedure Performed Yes -Type of Procedure Debridement -Clinical Debridement Subcutaneous -Tissue Removed Subcutaneous -Post Debridement (cm) - Length 1.8 -Post Debridement (cm) - Width 2.1 -Post Debridement (cm) - Depth 0.2 -Total Square (Post) (cm) 3.78 -Area of Debridement (cm) - Length 1.8 -Area of Debridement (cm) - Width 2.1 -Total Square (Area) (cm) 3.78 -Tunneling No -Undermining/Tunneling No -Circular Undermining No -Wound/Ulcer Outcome Not Healed -Ulcer Cleansing Rinsed/ Irrigated with Saline -Foul Odor after Cleansing No -Bioengineered Tissue No -Bleeding Controlled with Pressure -Treatment Response Procedure Tolerated Well -Offloading No -Debridement - Subq, 1st 20sq cm Yes Pain Scale: 0-10 Numeric Is Patient Pain Free? Yes WC - Nurse 3 - General Ulcer D/C NN Start: 12/05/23 10:32 Freq: Status: Active Protocol: Activity Type Activity Date Activity User E-sign Co-sign Detail Recorded Client Recorded Date Recorded By Document 12/05/23 11:20 RB Desktop 12/05/23 11:22 RB 12/05/23 11:20 Wound Care Center Nurse 3 10. R heel -Primary Dressing Applied Mepilex Border, Silvercel -Mepilex Border 1 -Silvercel 1 9. L heel cluster -Primary Dressing Applied Mepilex Border -Other Dressing silvercel -Mepilex Border 1 Right -Tubular Bandage Single Layer -Size of Tubigrip Used Size E -Size E ($) 1 Left -Tubular Bandage Single Layer -Size of Tubigrip Used Size E -Size E ($) 1 Treatment Response Procedure Tolerated Well Pain Scale: 0-10 Numeric Is Patient Pain Free? Yes Teaching: Wound Center Compression Wraps & Stockings -Person Taught Patient,Family -Teaching Method Discussion, Demonstration -Response to teaching Verbalize understanding Dressing Your Wound -Person Taught Patient -Teaching Method Discussion, Demonstration -Response to teaching Verbalize understanding WC - Visit Discharge Discharge Condition Stable Ambulatory Status Wheelchair Transportation Private Auto Medication Reconcilliation completed & No provided to patient/care provider Clinical Summary of Care Provided Yes Assessment/Plan Assessment/Plan (1) Type 2 diabetes mellitus with foot ulcer: CODE(S): E11.621 - Type 2 diabetes mellitus with foot ulcer; L97.509 - Non-pressure chronic ulcer of other part of unspecified foot with unspecified severity QUALIFIERS: Diabetes mellitus manager terminal insulin use: with mcc use Qualified Code(s): E11.621 - Type 2 diabetes mellitus with foot ulcer; L97.509 - Non-pressure chronic ulcer of other part of unspecified foot with unspecified severity; Z79.4 - termite control servicer (current) use of insulin PLAN: Exam performed Bilateral heels excisionally debrided down to including level subcutaneous tissue of all nonviable tissue using 3 mm dermal curette. No anesthesia due to neuropathy. Topical hemostasis applied with pressure. Patient tolerated procedure well. Pre and postdebridement measurements documented nursing notes. today EpiFix 2 x 2 centimeter graft applied to left heel wound in its entirety. Entire graft used, no waste. This was secured with overlying Adaptic and Steri-Strips. Dry sterile dressing applied. Patient will continue silver alginate dressing to right lower extremity. Patient is to offload heels at all times when at rest using Prevalon or PRAFO offloading boots. Will plan for continuation of advanced wound care grafting. Patient will follow-up weekly. (2) Type 2 diabetes mellitus with other skin ulcer: CODE(S): E11.622 - Type 2 diabetes mellitus with other skin ulcer; L98.499 - Non-pressure chronic ulcer of skin of other sites with unspecified severity QUALIFIERS: Diabetes mellitus mcc insulin use: with manager terminal use Qualified Code(s): E11.622 - Type 2 diabetes mellitus with other skin ulcer; Z79.4 - detention (current) use of insulin (3) Non-pressure chronic ulcer of other part of left foot with fat layer exposed: CODE(S): L97.522 - Non-pressure chronic ulcer of other part of left foot with fat layer exposed
--- NOTE | 2023-12-19 11:28 | PCM.WC.PN ---
History of Present Illness Date of Service: 12/19/23 Chief Complaint: Right posterior heel ulceration History of Wound: 67-year-old female recently discharged from the hospital presents today receiving linezolid orally for a right heel wound. Patient has new onset blister to left foot uncertain how. She states that she does not bear weight to the site at all. States that she does not remember hitting the area. She states that she sleeps on her back with offloading boots at all times and does not sleep on her left side. She denies constitutional's at this time denies any pain is no other complaints. Objective Data Objective Data Vital Signs: Vital Signs Temp Pulse Resp BP 99 F 66 18 158/71 H 12/12/23 10:50 12/12/23 10:50 12/12/23 10:50 12/12/23 10:50 Physical Exam Narrative Neurovascular status unchanged. Patient has intact pulses well-hydrated skin. Patient has absent light touch protective sensation bilateral feet. Full-thickness wounds to bilateral heels. Pre and postdebridement measurements documented nursing notes. Postdebridement wounds demonstrate 100% granular base. No evidence deep probing undermining or signs of infection at current. 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 No wound forming deformity noted. Muscular strength diminished to 4-5 bilateral lower extremity compartments. Const alert and oriented x3 Debridement Note Debridement Note Post-Debridement Measurements and Additional Note: Post-Debridement Measurements/Treatment - Nurse 1 - General Ulcer Assessment Start: 12/05/23 10:32 Freq: Status: Active Protocol: LEO.[email or web address] Activity Type Activity Date Activity User E-sign Co-sign Detail Recorded Client Recorded Date Recorded By Document 12/05/23 10:32 RB Desktop 12/05/23 10:39 RB Document 12/12/23 10:50 RB Desktop 12/12/23 10:55 RB Document 12/19/23 10:50 RB Desktop 12/19/23 11:09 RB 12/05/23 12/12/23 12/19/23 10:32 10:50 10:50 - Today's Visit Information Type of service Initial Visit Follow-up Visit Follow-up Visit (Physician/FORENSIC ARTIST (Physician/FORENSIC ARTIST ) ) Arrival Mode Wheelchair Wheelchair Wheelchair Transfer Assistance None Manual Manual Patient Identification Verified (Name & Yes Yes Yes ) Patient Requires Transmission-Based No No No Precautions Vital Signs Temperature (97.8 F-99.1 F) 97.2 F L 99 F Temperature Source Temporal Temporal Pulse Rate (60-100) 62 66 Pulse Location Monitor Monitor Respiratory Rate (12-18) 18 18 Respiratory rate source Observation Observation Blood Pressure (90/60-120/80) 116/56 L 158/71 H Blood Pressure Mean (mm Hg) 76 100 Source Monitor Monitor Position Semi-Fowlers Semi-Fowlers Blood Pressure Location Left Arm Left Arm History Since Last Visit- (Skip if this is Patient's initial visit) Have you changed medications since your No No last visit? Any new allergies or adverse reactions No No Had a fall/change in ADL's that may No No increase risk of falls Signs or symptoms of abuse and/or No No neglect since last visit Have you been in the hospital since your No No last visit? Has dressing in place as prescribed Yes Yes Has compression in place as prescribed No No Has offloadiing in place as prescribed Yes Yes Experienced any changes in pain level or No No management Pain Scale: 0-10 Numeric Is Patient Pain Free? No Yes Yes bilat heels -Description Throbbing -Intensity 2 -Duration (hours) Acute -Pain Behavior Irritability -Pain Aggravating Factors ADL's,Exercise/ Activity -Alleviating Factors/Interventions None -Effectiveness of Alleviating Factor/ Minimally Intervention effective WC - Nurse 1 - General Ulcer Measurement Start: 12/05/23 10:32 Freq: Status: Active Protocol: Activity Type Activity Date Activity User E-sign Co-sign Detail Recorded Client Recorded Date Recorded By Document 12/05/23 10:32 RB [employer] 12/05/23 10:39 RB Document 12/12/23 10:50 RB Desktop 12/12/23 10:55 RB Document 12/19/23 10:50 RB Desktop 12/19/23 11:09 RB 12/05/23 12/12/23 12/19/23 10:32 10:50 10:50 Wound Center Nurse 1 10. R heel -Combined with other wound No No No -Current Size (cm) - Length 1 0.6 0.1 -Current Size (cm) - Width 0.8 0.7 0.1 -Current Size (cm) - Depth 0.1 0.1 0.1 -Total Square Cm 0.8 0.42 0.01 -Photo Taken Yes -Tunneling No No No -Undermining/Tunneling No No No -Circular Undermining No No No -Exudate Amt Medium Medium Medium -Exudate Type Serosanguineous Serosanguineous Serosanguineous -Wound Margin Distinct, Distinct, Distinct, Outline Outline Outline Attached Attached Attached -Granulation Amt Medium (34-66%) Medium (34-66%) Medium (34-66%) -Granulation Quality [place] -Slough/Fibrin Yes Yes Yes -Necrosis Amt Medium (34-66%) Medium (34-66%) Medium (34-66%) -Necrotic Tissue Type Adherent Slough Adherent Slough Adherent Slough -Structure Exposed N/A N/A N/A -Texture (Margy-wound Skin Appearance) Assessed,Callus Assessed Assessed,Callus -Moisture (Margy-wound Skin Appearance) Assessed Assessed Assessed -Color (Margy-wound Skin Appearance) Assessed Assessed Assessed -Temperature (Margy-wound Skin No Abnormality No Abnormality No Abnormality Appearance) (Pt Warm) (Pt Warm) (Pt Warm) -Tenderness on Palpation (Margy-wound No No No Skin Appearance) -Ulcer Cleansing Wound Cleanser Wound Cleanser Wound Cleanser -Foul Odor after Cleansing No No No -Anesthetic Used 5% Lidocaine 5% Lidocaine 5% Lidocaine Gel Gel Gel 9. L heel cluster -Combined with other wound No No No -Current Size (cm) - Length 1.8 1 1.5 -Current Size (cm) - Width 2 2.1 1.7 -Current Size (cm) - Depth 0.2 0.2 0.1 -Total Square Cm 3.6 2.1 2.55 -Photo Taken Yes -Tunneling No No No -Undermining/Tunneling No No No -Circular Undermining No No No -Exudate Amt Medium Medium Medium -Exudate Type Serosanguineous Serosanguineous Serosanguineous -Wound Margin Distinct, Distinct, Distinct, Outline Outline Outline Attached Attached Attached -Granulation Amt Medium (34-66%) Medium (34-66%) Medium (34-66%) -Granulation Quality [place] -Slough/Fibrin Yes Yes Yes -Necrosis Amt Medium (34-66%) Medium (34-66%) Medium (34-66%) -Necrotic Tissue Type Adherent Slough Adherent Slough Adherent Slough -Structure Exposed N/A N/A N/A -Texture (Margy-wound Skin Appearance) Assessed,Callus Assessed Assessed -Moisture (Margy-wound Skin Appearance) Assessed Assessed Assessed -Color (Margy-wound Skin Appearance) Assessed Assessed Assessed -Temperature (Margy-wound Skin No Abnormality No Abnormality No Abnormality Appearance) (Pt Warm) (Pt Warm) (Pt Warm) -Tenderness on Palpation (Margy-wound No No No Skin Appearance) -Ulcer Cleansing Wound Cleanser Wound Cleanser Wound Cleanser -Foul Odor after Cleansing No No No -Anesthetic Used 5% Lidocaine 5% Lidocaine 5% Lidocaine Gel Gel Gel Lower Limb Edema Present Yes Yes Right Calf (cm) 28.7 29.2 Right Ankle (cm) 23 23.5 Left Calf (cm) 29.5 29 Left Ankle (cm) 22.5 23.5 WC - Nurse 2 - General Ulcer CM Notes Start: 12/05/23 10:32 Freq: Status: Active Protocol: Activity Type Activity Date Activity User E-sign Co-sign Detail Recorded Client Recorded Date Recorded By Document 12/05/23 10:54 [employer] 12/05/23 11:00 [employer] Document 12/12/23 11:02 [employer] 12/12/23 11:14 [employer] Document 12/19/23 11:15 [employer] Laptop 12/19/23 11:26 12/05/23 12/12/23 12/19/23 10:54 11:02 11:15 Wound Center Nurse 2 10. R heel -Time 10:55 11:04 11:23 -Correct Patient Yes Yes Yes -Correct Side, Site, Position Yes Yes Yes -Correct Procedure Yes Yes Yes -Procedure Performed Yes Yes Yes -Type of Procedure Debridement Debridement Debridement -Clinical Debridement Subcutaneous Subcutaneous Subcutaneous -Tissue Removed Subcutaneous Subcutaneous Subcutaneous -Post Debridement (cm) - Length 1.1 0.7 1.1 -Post Debridement (cm) - Width 0.8 0.7 0.6 -Post Debridement (cm) - Depth 0.1 0.1 0.1 -Total Square (Post) (cm) 0.88 0.49 0.66 -Area of Debridement (cm) - Length 1.1 0.7 1.1 -Area of Debridement (cm) - Width 0.8 0.7 0.6 -Total Square (Area) (cm) 0.88 0.49 0.66 -Tunneling No No No -Undermining/Tunneling No No No -Circular Undermining No No No -Wound/Ulcer Outcome Not Healed Not Healed Not Healed -Ulcer Cleansing Rinsed/ Rinsed/ Rinsed/ Irrigated with Irrigated with Irrigated with Saline Saline Saline -Foul Odor after Cleansing No No No -Bioengineered Tissue No No No -Bleeding Controlled with Pressure Pressure Pressure -Treatment Response Procedure Procedure Procedure Tolerated Well Tolerated Well Tolerated Well -Offloading No No No -Debridement - Subq, 1st 20sq cm No Yes Yes 9. L heel cluster -Time 10:55 11:05 11:24 -Correct Patient Yes Yes Yes -Correct Side, Site, Position Yes Yes Yes -Correct Procedure Yes Yes Yes -Procedure Performed Yes Yes Yes -Type of Procedure Debridement Debridement Debridement -Clinical Debridement Subcutaneous Subcutaneous Subcutaneous -Tissue Removed Subcutaneous Subcutaneous Subcutaneous -Post Debridement (cm) - Length 1.8 1.1 2.2 -Post Debridement (cm) - Width 2.1 2.1 0.6 -Post Debridement (cm) - Depth 0.2 0.2 0.1 -Total Square (Post) (cm) 3.78 2.31 1.32 -Area of Debridement (cm) - Length 1.8 1.1 2.2 -Area of Debridement (cm) - Width 2.1 2.1 0.6 -Total Square (Area) (cm) 3.78 2.31 1.32 -Tunneling No No No -Undermining/Tunneling No No No -Circular Undermining No No No -Wound/Ulcer Outcome Not Healed Not Healed Not Healed -Ulcer Cleansing Rinsed/ Rinsed/ Rinsed/ Irrigated with Irrigated with Irrigated with Saline Saline Saline -Foul Odor after Cleansing No No No -Bioengineered Tissue No Yes Yes -Type of Bioengineered Tissue Epifix Epifix -Expiration Date 08/30/28 08/30/28 -Product Lot Number [id number] -Percent Used 100 100 -Lot number of Saline Used [id number] -Bleeding Controlled with Pressure Pressure Pressure -Treatment Response Procedure Procedure Procedure Tolerated Well Tolerated Well Tolerated Well -Offloading No Yes No -Type of Offloading Surgical Shoe -Debridement - Subq, 1st 20sq cm Yes No No -Apply Skin Sub - 1st 25 sq cm - Feet 1 1 -Epifix (per sq cm) 4 4 Pain Scale: 0-10 Numeric Is Patient Pain Free? Yes Yes Yes - Nurse 3 - General Ulcer D/C NN Start: 12/05/23 10:32 Freq: Status: Active Protocol: Activity Type Activity Date Activity User E-sign Co-sign Detail Recorded Client Recorded Date Recorded By Document 12/05/23 11:20 Desktop 12/05/23 11:22 Document 12/12/23 11:21 [facility] Desktop 12/12/23 11:22 [facility] 12/05/23 12/12/23 11:20 11:21 Wound Care Center Nurse 3 10. R heel -Primary Dressing Applied Mepilex Border, Silvercel -Other Dressing EPIFIX -Primary Dressing Covered/Secured with Dry Gauze & Roll Gauze, Secured with Tape -Other Covering HEEL HAT; DRSG PER RB RN -Mepilex Border 1 -Silvercel 1 9. L heel cluster -Primary Dressing Applied Mepilex Border -Other Dressing silvercel EPI; HEEL HAT; DRSG PER RN -Primary Dressing Covered/Secured with Dry Gauze & Roll Gauze, Secured with Tape -Mepilex Border 1 BLE -Tubular Bandage Single Layer -Size of Tubigrip Used Size E -Size E ($) 2 Right -Tubular Bandage Single Layer -Size of Tubigrip Used Size E -Size E ($) 1 Left -Tubular Bandage Single Layer -Size of Tubigrip Used Size E -Size E ($) 1 Treatment Response Procedure Procedure Tolerated Well Tolerated Well Pain Scale: 0-10 Numeric Is Patient Pain Free? Yes Yes Teaching: Wound Center Compression Wraps & Stockings -Person Taught Patient,Family -Teaching Method Discussion, Demonstration -Response to teaching Verbalize understanding Dressing Your Wound -Person Taught Patient -Teaching Method Discussion, Demonstration -Response to teaching Verbalize understanding WC - Visit Discharge Discharge Condition Stable Stable Ambulatory Status Wheelchair Wheelchair Transportation Private Auto Private Auto Accompanied by DAUGHTER Medication Reconcilliation completed & No provided to patient/care provider Clinical Summary of Care Provided Yes Assessment/Plan Assessment/Plan (1) Type 2 diabetes mellitus with foot ulcer: CODE(S): E11.621 - Type 2 diabetes mellitus with foot ulcer; L97.509 - Non-pressure chronic ulcer of other part of unspecified foot with unspecified severity QUALIFIERS: Diabetes mellitus jail insulin use: with control 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 No anesthesia due to neuropathy. Topical hemostasis applied with pressure. Patient tolerated procedure well. Pre and postdebridement measurements documented nursing notes. today EpiFix 2 x 2 centimeter graft applied to left heel wound in its entirety. Entire graft used, no waste. This was secured with overlying Adaptic and Steri-Strips. Dry sterile dressing applied. Patient will continue silver alginate dressing to right lower extremity. Patient is to offload heels at all times when at rest using Prevalon or PRAFO offloading boots. Will plan for continuation of advanced wound care grafting. Patient will follow-up weekly. (2) Type 2 diabetes mellitus with other skin ulcer: CODE(S): E11.622 - Type 2 diabetes mellitus with other skin ulcer; L98.499 - Non-pressure chronic ulcer of skin of other sites with unspecified severity QUALIFIERS: Diabetes mellitus jail insulin use: with jail use Qualified Code(s): E11.622 - Type 2 diabetes mellitus with other skin ulcer; Z79.4 - nursing home (current) use of insulin (3) Non-pressure chronic ulcer of other part of left foot with fat layer exposed: CODE(S): L97.522 - Non-pressure chronic ulcer of other part of left foot with fat layer exposed
[2023-12-26 10:49] VITALS: BP 149/66; PULSE 65; RESP 20; TEMP 37
--- NOTE | 2023-12-26 11:54 | PN.PCM_ITS ---
History of Present Illness Date of Service: 12/26/23 Chief Complaint: Right posterior heel ulceration History of Wound: 67-year-old female recently discharged from the hospital presents today receiving linezolid orally for a right heel wound. Patient has new onset blister to left foot uncertain how. She states that she does not bear weight to the site at all. States that she does not remember hitting the area. She states that she sleeps on her back with offloading boots at all times and does not sleep on her left side. She denies constitutional's at this time denies any pain is no other complaints. Objective Data Objective Data Vital Signs: Vital Signs Temp Pulse Resp BP 98.6 F 65 20 H 149/66 H 12/26/23 10:49 12/26/23 10:49 12/26/23 10:49 12/26/23 10:49 Physical Exam Narrative Neurovascular status unchanged. Patient has intact pulses well-hydrated skin. Patient has absent light touch protective sensation bilateral feet. Full-thickness wounds to bilateral heels. Pre and postdebridement measurements documented nursing notes. Postdebridement wounds demonstrate 100% granular base. No evidence deep probing undermining or signs of infection at current. 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 No wound forming deformity noted. Muscular strength diminished to 4-5 bilateral lower extremity compartments. Const alert and oriented x3 Debridement Note Debridement Note Post-Debridement Measurements and Additional Note: Post-Debridement Measurements/Treatment WC - Nurse 1 - General Ulcer Assessment Start: 12/05/23 10:32 Freq: Status: Active Protocol: [email or web address] Activity Type Activity Date Activity User E-sign Co-sign Detail Recorded Client Recorded Date Recorded By Document 12/05/23 10:32 RB Desktop 12/05/23 10:39 RB Document 12/12/23 10:50 RB Desktop 12/12/23 10:55 RB Document 12/19/23 10:50 RB Desktop 12/19/23 11:09 RB Document 12/26/23 10:49 DL Desktop 12/26/23 10:59 DL 12/05/23 12/12/23 12/19/23 10:32 10:50 10:50 - Today's Visit Information Type of service Initial Visit Follow-up Visit Follow-up Visit (Physician/COLLISION CENTER MANAGER (Physician/COLLISION CENTER MANAGER ) ) Arrival Mode Wheelchair Wheelchair Wheelchair Transfer Assistance None Manual Manual Transfer Assist (Other) Patient Identification Verified (Name & Yes Yes Yes ) Patient Requires Transmission-Based No No No Precautions Finger Stick Blood Sugar(mg/dl) (if indicated): Blood Sugar Vital Signs Temperature (97.8 F-99.1 F) 97.2 F L 99 F Temperature Source Temporal Temporal Pulse Rate (60-100) 62 66 Pulse Location Monitor Monitor Respiratory Rate (12-18) 18 18 Respiratory rate source Observation Observation Blood Pressure (90/60-120/80) 116/56 L 158/71 H Blood Pressure Mean (mm Hg) 76 100 Source Monitor Monitor Position Semi-Fowlers Semi-Fowlers Blood Pressure Location Left Arm Left Arm History Since Last Visit- (Skip if this is Patient's initial visit) Have you changed medications since your No No last visit? Any new allergies or adverse reactions No No Had a fall/change in ADL's that may No No increase risk of falls Signs or symptoms of abuse and/or No No neglect since last visit Have you been in the hospital since your No No last visit? Has dressing in place as prescribed Yes Yes Has compression in place as prescribed No No Has offloadiing in place as prescribed Yes Yes Experienced any changes in pain level or No No management Left Footwear Right Footwear Pain Scale: 0-10 Numeric Is Patient Pain Free? No Yes Yes bilat heels -Description Throbbing -Intensity 2 -Duration (hours) Acute -Pain Behavior Irritability -Pain Aggravating Factors ADL's,Exercise/ Activity -Alleviating Factors/Interventions None -Effectiveness of Alleviating Factor/ Minimally Intervention effective 12/26/23 10:49 - Today's Visit Information Type of service Follow-up Visit (Physician/COLLISION CENTER MANAGER ) Arrival Mode Wheelchair Transfer Assistance Manual Transfer Assist (Other) x1 Patient Identification Verified (Name & Yes ) Patient Requires Transmission-Based No Precautions Finger Stick Blood Sugar(mg/dl) (if didnt check indicated): Blood Sugar Stated by Patient Vital Signs Temperature (97.8 F-99.1 F) 98.6 F Temperature Source Temporal Pulse Rate (60-100) 65 Pulse Location Monitor Respiratory Rate (12-18) 20 H Respiratory rate source Observation Blood Pressure (90/60-120/80) 149/66 H Blood Pressure Mean (mm Hg) 93 Source Monitor Position Blood Pressure Location History Since Last Visit- (Skip if this is Patient's initial visit) Have you changed medications since your No last visit? Any new allergies or adverse reactions No Had a fall/change in ADL's that may No increase risk of falls Signs or symptoms of abuse and/or No neglect since last visit Have you been in the hospital since your No last visit? Has dressing in place as prescribed Yes Has compression in place as prescribed Yes Has offloadiing in place as prescribed Yes Experienced any changes in pain level or No management Left Footwear Slipper Right Footwear Slipper Pain Scale: 0-10 Numeric Is Patient Pain Free? Yes bilat heels -Description -Intensity -Duration (hours) -Pain Behavior -Pain Aggravating Factors -Alleviating Factors/Interventions -Effectiveness of Alleviating Factor/ Intervention WC - Nurse 1 - General Ulcer Measurement Start: 12/05/23 10:32 Freq: Status: Active Protocol: Activity Type Activity Date Activity User E-sign Co-sign Detail Recorded Client Recorded Date Recorded By Document 12/05/23 10:32 RB Desktop 12/05/23 10:39 RB Document 12/12/23 10:50 RB Desktop 12/12/23 10:55 RB Document 12/19/23 10:50 RB Desktop 12/19/23 11:09 RB Document 12/26/23 10:49 DL Desktop 12/26/23 10:59 DL 12/05/23 12/12/23 12/19/23 10:32 10:50 10:50 Wound Center Nurse 1 10. R heel -Combined with other wound No No No -Current Size (cm) - Length 1 0.6 0.1 -Current Size (cm) - Width 0.8 0.7 0.1 -Current Size (cm) - Depth 0.1 0.1 0.1 -Total Square Cm 0.8 0.42 0.01 -Photo Taken Yes -Tunneling No No No -Undermining/Tunneling No No No -Circular Undermining No No No -Exudate Amt Medium Medium Medium -Exudate Type Serosanguineous Serosanguineous Serosanguineous -Wound Margin Distinct, Distinct, Distinct, Outline Outline Outline Attached Attached Attached -Granulation Amt Medium (34-66%) Medium (34-66%) Medium (34-66%) -Granulation Quality [place] -Slough/Fibrin Yes Yes Yes -Necrosis Amt Medium (34-66%) Medium (34-66%) Medium (34-66%) -Necrotic Tissue Type Adherent Slough Adherent Slough Adherent Slough -Structure Exposed N/A N/A N/A -Texture (Margy-wound Skin Appearance) Assessed,Callus Assessed Assessed,Callus -Moisture (Margy-wound Skin Appearance) Assessed Assessed Assessed -Color (Margy-wound Skin Appearance) Assessed Assessed Assessed -Temperature (Margy-wound Skin No Abnormality No Abnormality No Abnormality Appearance) (Pt Warm) (Pt Warm) (Pt Warm) -Tenderness on Palpation (Margy-wound No No No Skin Appearance) -Ulcer Cleansing Wound Cleanser Wound Cleanser Wound Cleanser -Foul Odor after Cleansing No No No -Anesthetic Used 5% Lidocaine 5% Lidocaine 5% Lidocaine Gel Gel Gel 9. L heel cluster -Combined with other wound No No No -Current Size (cm) - Length 1.8 1 1.5 -Current Size (cm) - Width 2 2.1 1.7 -Current Size (cm) - Depth 0.2 0.2 0.1 -Total Square Cm 3.6 2.1 2.55 -Photo Taken Yes -Tunneling No No No -Undermining/Tunneling No No No -Circular Undermining No No No -Exudate Amt Medium Medium Medium -Exudate Type Serosanguineous Serosanguineous Serosanguineous -Wound Margin Distinct, Distinct, Distinct, Outline Outline Outline Attached Attached Attached -Granulation Amt Medium (34-66%) Medium (34-66%) Medium (34-66%) -Granulation Quality [place] -Slough/Fibrin Yes Yes Yes -Necrosis Amt Medium (34-66%) Medium (34-66%) Medium (34-66%) -Necrotic Tissue Type Adherent Slough Adherent Slough Adherent Slough -Structure Exposed N/A N/A N/A -Texture (Margy-wound Skin Appearance) Assessed,Callus Assessed Assessed -Moisture (Margy-wound Skin Appearance) Assessed Assessed Assessed -Color (Margy-wound Skin Appearance) Assessed Assessed Assessed -Temperature (Margy-wound Skin No Abnormality No Abnormality No Abnormality Appearance) (Pt Warm) (Pt Warm) (Pt Warm) -Tenderness on Palpation (Margy-wound No No No Skin Appearance) -Ulcer Cleansing Wound Cleanser Wound Cleanser Wound Cleanser -Foul Odor after Cleansing No No No -Anesthetic Used 5% Lidocaine 5% Lidocaine 5% Lidocaine Gel Gel Gel Lower Limb Edema Present Yes Yes Right Calf (cm) 28.7 29.2 Right Ankle (cm) 23 23.5 Left Calf (cm) 29.5 29 Left Ankle (cm) 22.5 23.5 12/26/23 10:49 Wound Center Nurse 1 10. R heel -Combined with other wound -Current Size (cm) - Length 0.8 -Current Size (cm) - Width 1 -Current Size (cm) - Depth 0.1 -Total Square Cm 0.8 -Photo Taken Yes -Tunneling -Undermining/Tunneling -Circular Undermining -Exudate Amt Small -Exudate Type Serosanguineous -Wound Margin Distinct, Outline Attached -Granulation Amt Large (67-100%) -Granulation Quality [place] -Slough/Fibrin -Necrosis Amt None Present (0 %) -Necrotic Tissue Type -Structure Exposed N/A -Texture (Margy-wound Skin Appearance) Callus -Moisture (Margy-wound Skin Appearance) Dry/Scaly -Color (Margy-wound Skin Appearance) No Abnormality -Temperature (Margy-wound Skin No Abnormality Appearance) (Pt Warm) -Tenderness on Palpation (Margy-wound Skin Appearance) -Ulcer Cleansing Soap and Water -Foul Odor after Cleansing No -Anesthetic Used 5% Lidocaine Gel 9. L heel cluster -Combined with other wound -Current Size (cm) - Length 2 -Current Size (cm) - Width 0.5 -Current Size (cm) - Depth 0.1 -Total Square Cm 1.0 -Photo Taken Yes -Tunneling -Undermining/Tunneling -Circular Undermining -Exudate Amt Small -Exudate Type Serosanguineous -Wound Margin Distinct, Outline Attached -Granulation Amt Large (67-100%) -Granulation Quality Pale,[place] -Slough/Fibrin -Necrosis Amt None Present (0 %) -Necrotic Tissue Type -Structure Exposed N/A -Texture (Margy-wound Skin Appearance) Callus,Scarring -Moisture (Margy-wound Skin Appearance) Dry/Scaly -Color (Margy-wound Skin Appearance) No Abnormality -Temperature (Margy-wound Skin No Abnormality Appearance) (Pt Warm) -Tenderness on Palpation (Margy-wound No Skin Appearance) -Ulcer Cleansing Soap and Water -Foul Odor after Cleansing No -Anesthetic Used 5% Lidocaine Gel Lower Limb Edema Present Right Calf (cm) 29 Right Ankle (cm) 22 Left Calf (cm) 27.4 Left Ankle (cm) 21.5 WC - Nurse 2 - General Ulcer CM Notes Start: 12/05/23 10:32 Freq: Status: Active Protocol: Activity Type Activity Date Activity User E-sign Co-sign Detail Recorded Client Recorded Date Recorded By Document 12/05/23 10:54 Laptop 12/05/23 11:00 Document 12/12/23 11:02 Laptop 12/12/23 11:14 Document 12/19/23 11:15 Laptop 12/19/23 11:26 Document 12/26/23 11:29 Laptop 12/26/23 11:31 12/05/23 12/12/23 12/19/23 10:54 11:02 11:15 Wound Center Nurse 2 10. R heel -Time 10:55 11:04 11:23 -Correct Patient Yes Yes Yes -Correct Side, Site, Position Yes Yes Yes -Correct Procedure Yes Yes Yes -Procedure Performed Yes Yes Yes -Type of Procedure Debridement Debridement Debridement -Clinical Debridement Subcutaneous Subcutaneous Subcutaneous -Tissue Removed Subcutaneous Subcutaneous Subcutaneous -Post Debridement (cm) - Length 1.1 0.7 1.1 -Post Debridement (cm) - Width 0.8 0.7 0.6 -Post Debridement (cm) - Depth 0.1 0.1 0.1 -Total Square (Post) (cm) 0.88 0.49 0.66 -Area of Debridement (cm) - Length 1.1 0.7 1.1 -Area of Debridement (cm) - Width 0.8 0.7 0.6 -Total Square (Area) (cm) 0.88 0.49 0.66 -Tunneling No No No -Undermining/Tunneling No No No -Circular Undermining No No No -Wound/Ulcer Outcome Not Healed Not Healed Not Healed -Ulcer Cleansing Rinsed/ Rinsed/ Rinsed/ Irrigated with Irrigated with Irrigated with Saline Saline Saline -Foul Odor after Cleansing No No No -Bioengineered Tissue No No No -Bleeding Controlled with Pressure Pressure Pressure -Treatment Response Procedure Procedure Procedure Tolerated Well Tolerated Well Tolerated Well -Offloading No No No -Debridement - Subq, 1st 20sq cm No Yes Yes 9. L heel cluster -Time 10:55 11:05 11:24 -Correct Patient Yes Yes Yes -Correct Side, Site, Position Yes Yes Yes -Correct Procedure Yes Yes Yes -Procedure Performed Yes Yes Yes -Type of Procedure Debridement Debridement Debridement -Clinical Debridement Subcutaneous Subcutaneous Subcutaneous -Tissue Removed Subcutaneous Subcutaneous Subcutaneous -Post Debridement (cm) - Length 1.8 1.1 2.2 -Post Debridement (cm) - Width 2.1 2.1 0.6 -Post Debridement (cm) - Depth 0.2 0.2 0.1 -Total Square (Post) (cm) 3.78 2.31 1.32 -Area of Debridement (cm) - Length 1.8 1.1 2.2 -Area of Debridement (cm) - Width 2.1 2.1 0.6 -Total Square (Area) (cm) 3.78 2.31 1.32 -Tunneling No No No -Undermining/Tunneling No No No -Circular Undermining No No No -Wound/Ulcer Outcome Not Healed Not Healed Not Healed -Ulcer Cleansing Rinsed/ Rinsed/ Rinsed/ Irrigated with Irrigated with Irrigated with Saline Saline Saline -Foul Odor after Cleansing No No No -Bioengineered Tissue No Yes Yes -Type of Bioengineered Tissue Epifix Epifix -Expiration Date 08/30/28 08/30/28 -Product Lot Number [id number] -Percent Used 100 100 -Lot number of Saline Used [id number] -Bleeding Controlled with Pressure Pressure Pressure -Treatment Response Procedure Procedure Procedure Tolerated Well Tolerated Well Tolerated Well -Offloading No Yes No -Type of Offloading Surgical Shoe -Debridement - Subq, 1st 20sq cm Yes No No -Apply Skin Sub - 1st 25 sq cm - Feet 1 1 -Epifix (per sq cm) 4 4 Pain Scale: 0-10 Numeric Is Patient Pain Free? Yes Yes Yes 12/26/23 11:29 Wound Center Nurse 2 10. R heel -Time 11:29 -Correct Patient Yes -Correct Side, Site, Position Yes -Correct Procedure Yes -Procedure Performed Yes -Type of Procedure Debridement -Clinical Debridement Subcutaneous -Tissue Removed Subcutaneous -Post Debridement (cm) - Length 1.0 -Post Debridement (cm) - Width 0.4 -Post Debridement (cm) - Depth 0.1 -Total Square (Post) (cm) 0.40 -Area of Debridement (cm) - Length 1.0 -Area of Debridement (cm) - Width 0.4 -Total Square (Area) (cm) 0.40 -Tunneling No -Undermining/Tunneling No -Circular Undermining No -Wound/Ulcer Outcome Not Healed -Ulcer Cleansing Rinsed/ Irrigated with Saline -Foul Odor after Cleansing No -Bioengineered Tissue No -Bleeding Controlled with Pressure -Treatment Response Procedure Tolerated Well -Offloading No -Debridement - Subq, 1st 20sq cm Yes 9. L heel cluster -Time 11:29 -Correct Patient Yes -Correct Side, Site, Position Yes -Correct Procedure Yes -Procedure Performed Yes -Type of Procedure Debridement -Clinical Debridement Subcutaneous -Tissue Removed Subcutaneous -Post Debridement (cm) - Length 1.8 -Post Debridement (cm) - Width 0.7 -Post Debridement (cm) - Depth 0.1 -Total Square (Post) (cm) 1.26 -Area of Debridement (cm) - Length 1.8 -Area of Debridement (cm) - Width 0.7 -Total Square (Area) (cm) 1.26 -Tunneling No -Undermining/Tunneling No -Circular Undermining No -Wound/Ulcer Outcome Not Healed -Ulcer Cleansing Rinsed/ Irrigated with Saline -Foul Odor after Cleansing No -Bioengineered Tissue Yes -Type of Bioengineered Tissue Epifix -Expiration Date 08/30/28 -Product Lot Number [id number] -Percent Used 100 -Lot number of Saline Used [id number] -Bleeding Controlled with Pressure -Treatment Response Procedure Tolerated Well -Offloading No -Type of Offloading -Debridement - Subq, 1st 20sq cm No -Apply Skin Sub - 1st 25 sq cm - Feet 1 -Epifix (per sq cm) 4 Pain Scale: 0-10 Numeric Is Patient Pain Free? Yes - Nurse 3 - General Ulcer D/C NN Start: 12/05/23 10:32 Freq: Status: Active Protocol: Activity Type Activity Date Activity User E-sign Co-sign Detail Recorded Client Recorded Date Recorded By Document 12/05/23 11:20 RB Desktop 12/05/23 11:22 RB Document 12/12/23 11:21 [facility] Desktop 12/12/23 11:22 [facility] Document 12/19/23 12:14 RB Desktop 12/19/23 12:15 RB Document 12/26/23 11:49 RB Desktop 12/26/23 11:50 RB 12/05/23 12/12/23 12/19/23 11:20 11:21 12:14 Wound Care Center Nurse 3 10. R heel -Primary Dressing Applied Mepilex Border, Aquacel AG 2x2 Silvercel -Other Dressing EPIFIX abd -Primary Dressing Covered/Secured with Dry Gauze & Dry Gauze & Roll Gauze, Roll Gauze, Secured with Secured with Tape Tape -Other Covering HEEL HAT; DRSG PER RB RN -Aquacel AG 2x2 1 -Mepilex Border 1 -Silvercel 1 9. L heel cluster -Primary Dressing Applied Mepilex Border -Other Dressing silvercel EPI; HEEL HAT; abd DRSG PER RB RN -Primary Dressing Covered/Secured with Dry Gauze & Dry Gauze,Dry Roll Gauze, Gauze & Roll Secured with Gauze,Secured Tape with Tape -Mepilex Border 1 BLE -Tubular Bandage Single Layer -Size of Tubigrip Used Size E -Size E ($) 2 Right -Tubular Bandage Single Layer Single Layer -Size of Tubigrip Used Size E Size E -Size E ($) 1 1 Left -Tubular Bandage Single Layer Single Layer -Size of Tubigrip Used Size E Size E -Size E ($) 1 1 Treatment Response Procedure Procedure Procedure Tolerated Well Tolerated Well Tolerated Well Pain Scale: 0-10 Numeric Is Patient Pain Free? Yes Yes Yes Teaching: Wound Center Compression Wraps & Stockings -Person Taught Patient,Family -Teaching Method Discussion, Demonstration -Response to teaching Verbalize understanding Dressing Your Wound -Person Taught Patient -Teaching Method Discussion, Demonstration -Response to teaching Verbalize understanding WC - Visit Discharge Discharge Condition Stable Stable Stable Ambulatory Status Wheelchair Wheelchair Wheelchair Transportation Private Auto Private Auto Private Auto Accompanied by DAUGHTER Medication Reconcilliation completed & No No provided to patient/care provider Clinical Summary of Care Provided Yes Yes 12/26/23 11:49 Wound Care Center Nurse 3 10. R heel -Primary Dressing Applied -Other Dressing abd nurses hat -Primary Dressing Covered/Secured with Dry Gauze,Dry Gauze & Roll Gauze,Secured with Tape -Other Covering -Aquacel AG 2x2 -Mepilex Border -Silvercel 9. L heel cluster -Primary Dressing Applied -Other Dressing abd nurses hat -Primary Dressing Covered/Secured with Dry Gauze,Dry Gauze & Roll Gauze,Secured with Tape -Mepilex Border BLE -Tubular Bandage -Size of Tubigrip Used -Size E ($) Right -Tubular Bandage Single Layer -Size of Tubigrip Used Size E -Size E ($) 1 Left -Tubular Bandage Single Layer -Size of Tubigrip Used Size E -Size E ($) 1 Treatment Response Procedure Tolerated Well Pain Scale: 0-10 Numeric Is Patient Pain Free? Yes Teaching: Wound Center Compression Wraps & Stockings -Person Taught -Teaching Method -Response to teaching Dressing Your Wound -Person Taught Patient -Teaching Method Discussion, Demonstration -Response to teaching Verbalize understanding WC - Visit Discharge Discharge Condition Stable Ambulatory Status Wheelchair Transportation Private Auto Accompanied by Medication Reconcilliation completed & No provided to patient/care provider Clinical Summary of Care Provided Yes Assessment/Plan Assessment/Plan (1) Type 2 diabetes mellitus with foot ulcer: CODE(S): E11.621 - Type 2 diabetes mellitus with foot ulcer; L97.509 - Non-pressure chronic ulcer of other part of unspecified foot with unspecified severity QUALIFIERS: Diabetes mellitus fpc insulin use: with fpc use Qualified Code(s): E11.621 - Type 2 diabetes mellitus with foot ulcer; L97.509 - Non-pressure chronic ulcer of other part of unspecified foot with unspecified severity; Z79.4 - termination clerk (current) use of insulin PLAN: Exam performed Bilateral heel wounds were excisionally debrided down to including level subcutaneous tissue of all nonviable tissue using 3 mm dermal curette. No anesthesia due to neuropathy. Topical hemostasis applied with pressure. Patient tolerated procedure well. Pre and postdebridement measurements documented nursing notes. today EpiFix 2 x 2 centimeter graft applied to left heel wound in its entirety. Entire graft used, no waste. This was secured with overlying Adaptic and Steri-Strips. Dry sterile dressing applied. Patient will continue silver alginate dressing to right lower extremity. Patient is to offload heels at all times when at rest using Prevalon or PRAFO offloading boots. Will plan for continuation of advanced wound care grafting. Patient will follow-up weekly. (2) Type 2 diabetes mellitus with other skin ulcer: CODE(S): E11.622 - Type 2 diabetes mellitus with other skin ulcer; L98.499 - Non-pressure chronic ulcer of skin of other sites with unspecified severity QUALIFIERS: Diabetes mellitus fpc insulin use: with fpc use Qualified Code(s): E11.622 - Type 2 diabetes mellitus with other skin ulcer; Z79.4 - termination clerk (current) use of insulin (3) Non-pressure chronic ulcer of other part of left foot with fat layer exposed: CODE(S): L97.522 - Non-pressure chronic ulcer of other part of left foot with fat layer exposed
== END 2023-12-28 23:59 | disposition home or self-care (01) ==
LOC: WC 10:45
PROVIDERS: PCP Family Medicine; Referring Provider Podiatrist; Visit Provider Podiatrist
DX: E11.621 Type 2 diabetes mellitus with foot ulcer (principal); L97.419 Non-pressure chronic ulcer of right heel and midfoot with unspecified severity; L97.522 Non-pressure chronic ulcer of other part of left foot with fat layer exposed; E11.42 Type 2 diabetes mellitus with diabetic polyneuropathy; Z79.4 Long term (current) use of insulin; E11.43 Type 2 diabetes mellitus with diabetic autonomic (poly)neuropathy; E11.51 Type 2 diabetes mellitus with diabetic peripheral angiopathy without gangrene; K21.9 Gastro-esophageal reflux disease without esophagitis; Z86.718 Personal history of other venous thrombosis and embolism; Z79.899 Other long term (current) drug therapy; Z89.422 Acquired absence of other left toe(s)
CPT/HCPCS: 11042; 15275; 99213; Q4186; G0463

== ENCOUNTER 2024-01-16 10:45 | Outpatient (RCR) | payer MEDICARE, OTHER, SELFPAY ==
[2023-12-29 00:22] VITALS: BP 149/66; PULSE 65; RESP 20; TEMP 37
[2024-01-02 11:07] VITALS: BP 135/55; PULSE 58; RESP 18; TEMP 36.4
--- NOTE | 2024-01-02 11:31 | PCM.WC.PN ---
History of Present Illness Date of Service: 01/02/24 Chief Complaint: Right posterior heel ulceration History of Wound: 67-year-old female recently discharged from the hospital presents today receiving linezolid orally for a right heel wound. Patient has new onset blister to left foot uncertain how. She states that she does not bear weight to the site at all. States that she does not remember hitting the area. She states that she sleeps on her back with offloading boots at all times and does not sleep on her left side. She denies constitutional's at this time denies any pain is no other complaints. Objective Data Objective Data Vital Signs: Vital Signs Temp Pulse Resp BP O2 Del Method 97.6 F L 58 L 18 135/55 H Room Air 01/02/24 11:07 01/02/24 11:07 01/02/24 11:07 01/02/24 11:07 01/02/24 11:07 Oxygen Delivery Method Room Air Physical Exam Narrative Neurovascular status unchanged. Patient has intact pulses well-hydrated skin. Patient has absent light touch protective sensation bilateral feet. Full-thickness wounds to bilateral heels. Pre and postdebridement measurements documented nursing notes. Postdebridement wounds demonstrate 100% granular base. No evidence deep probing undermining or signs of infection at current. 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 No wound forming deformity noted. Muscular strength diminished to 4-5 bilateral lower extremity compartments. Const alert and oriented x3 Debridement Note Debridement Note Post-Debridement Measurements and Additional Note: Post-Debridement Measurements/Treatment - Nurse 1 - General Ulcer Assessment Start: 01/02/24 11:06 Freq: Status: Active Protocol: [place] Activity Type Activity Date Activity User E-sign Co-sign Detail Recorded Client Recorded Date Recorded By Document 01/02/24 11:07 KW Desktop 01/02/24 11:17 KW 01/02/24 11:07 - Today's Visit Information Type of service Follow-up Visit (Physician/DIGITAL PRODUCER ) Arrival Mode Wheelchair Patient Identification Verified (Name & Yes ) Vital Signs Temperature (97.8 F-99.1 F) 97.6 F L Temperature Source Temporal Pulse Rate (60-100) 58 L Pulse Location Monitor Respiratory Rate (12-18) 18 Respiratory rate source Observation Oxygen Delivery Method Room Air Blood Pressure (90/60-120/80) 135/55 H Blood Pressure Mean (mm Hg) 81 Source Monitor Position Semi-Fowlers Blood Pressure Location Left Arm History Since Last Visit- (Skip if this is Patient's initial visit) Have you changed medications since your No last visit? Any new allergies or adverse reactions No Had a fall/change in ADL's that may No increase risk of falls Signs or symptoms of abuse and/or No neglect since last visit Have you been in the hospital since your No last visit? Has dressing in place as prescribed Yes Has compression in place as prescribed Yes Has offloadiing in place as prescribed N/A Experienced any changes in pain level or No management Left Footwear Regular Shoe Right Footwear Regular Shoe Pain Scale: 0-10 Numeric Is Patient Pain Free? Yes WC - Nurse 1 - General Ulcer Measurement Start: 01/02/24 11:06 Freq: Status: Active Protocol: Activity Type Activity Date Activity User E-sign Co-sign Detail Recorded Client Recorded Date Recorded By Document 01/02/24 11:07 KW Desktop 01/02/24 11:17 KW 01/02/24 11:07 Wound Center Nurse 1 10. R heel -Current Size (cm) - Length 1 -Current Size (cm) - Width 0.7 -Current Size (cm) - Depth 0.1 -Total Square Cm 0.7 -Exudate Amt Small -Exudate Type Serosanguineous -Wound Margin Distinct, Outline Attached -Texture (Margy-wound Skin Appearance) Assessed -Moisture (Margy-wound Skin Appearance) Assessed -Color (Margy-wound Skin Appearance) Assessed -Temperature (Margy-wound Skin No Abnormality Appearance) (Pt Warm) -Ulcer Cleansing Soap and Water -Anesthetic Used 5% Lidocaine Gel -Wound Comment(s) SCABBED 9. L heel cluster -Current Size (cm) - Length 1.2 -Current Size (cm) - Width 1.6 -Current Size (cm) - Depth 0.1 -Total Square Cm 1.92 -Exudate Amt Small -Exudate Type Serosanguineous -Wound Margin Distinct, Outline Attached -Granulation Amt Large (67-100%) -Granulation Quality Red -Texture (Margy-wound Skin Appearance) Assessed -Moisture (Margy-wound Skin Appearance) Assessed,Dry/ Scaly -Color (Margy-wound Skin Appearance) Assessed -Temperature (Margy-wound Skin No Abnormality Appearance) (Pt Warm) -Ulcer Cleansing Soap and Water -Anesthetic Used 5% Lidocaine Gel Right Calf (cm) 29.5 Right Ankle (cm) 23 Left Calf (cm) 29 Left Ankle (cm) 22 Assessment/Plan Assessment/Plan (1) Type 2 diabetes mellitus with foot ulcer: CODE(S): E11.621 - Type 2 diabetes mellitus with foot ulcer; L97.509 - Non-pressure chronic ulcer of other part of unspecified foot with unspecified severity QUALIFIERS: Diabetes mellitus laborer marine terminal insulin use: with laborer marine terminal use Qualified Code(s): E11.621 - Type 2 diabetes mellitus with foot ulcer; L97.509 - Non-pressure chronic ulcer of other part of unspecified foot with unspecified severity; Z79.4 - pen[facility]iary (current) use of insulin PLAN: Exam performed Bilateral heel wounds were excisionally debrided down to including level subcutaneous tissue of all nonviable tissue using 3 mm dermal curette. No anesthesia due to neuropathy. Topical hemostasis applied with pressure. Patient tolerated procedure well. Pre and postdebridement measurements documented nursing notes. today EpiFix 2 x 2 centimeter graft applied to left heel wound in its entirety. Entire graft used, no waste. This was secured with overlying Adaptic and Steri-Strips. Dry sterile dressing applied. Patient will continue silver alginate dressing to right lower extremity. Patient is to offload heels at all times when at rest using Prevalon or PRAFO offloading boots. Will plan for continuation of advanced wound care grafting. Patient will follow-up weekly. (2) Type 2 diabetes mellitus with other skin ulcer: CODE(S): E11.622 - Type 2 diabetes mellitus with other skin ulcer; L98.499 - Non-pressure chronic ulcer of skin of other sites with unspecified severity QUALIFIERS: Diabetes mellitus laborer marine terminal insulin use: with group home use Qualified Code(s): E11.622 - Type 2 diabetes mellitus with other skin ulcer; Z79.4 - penitentiary (current) use of insulin (3) Non-pressure chronic ulcer of other part of left foot with fat layer exposed: CODE(S): L97.522 - Non-pressure chronic ulcer of other part of left foot with fat layer exposed
[2024-01-09 10:47] VITALS: BP 126/64; PULSE 63; RESP 18; TEMP 36.9
--- NOTE | 2024-01-09 11:46 | PCM.WC.PN ---
History of Present Illness Date of Service: 01/09/24 Chief Complaint: Right posterior heel ulceration History of Wound: 67-year-old female recently follow-up bilateral heel wounds. Denies constitutional symptoms. Denies pain. No other complaints. Objective Data Objective Data Vital Signs: Vital Signs Temp Pulse Resp BP O2 Del Method 98.4 F 63 18 126/64 H Room Air 01/09/24 10:47 01/09/24 10:47 01/09/24 10:47 01/09/24 10:47 01/09/24 10:47 Oxygen Delivery Method Room Air Physical Exam Narrative Neurovascular status unchanged. Patient has intact pulses well-hydrated skin. Patient has absent light touch protective sensation bilateral feet. Full-thickness wounds to bilateral heels. Pre and postdebridement measurements documented nursing notes. Postdebridement wounds demonstrate 100% granular base. No evidence deep probing undermining or signs of infection at current. 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 No wound forming deformity noted. Muscular strength diminished to 4-5 bilateral lower extremity compartments. Const alert and oriented x3 Debridement Note Debridement Note Post-Debridement Measurements and Additional Note: Post-Debridement Measurements/Treatment - Nurse 1 - General Ulcer Assessment Start: 01/02/24 11:06 Freq: Status: Active Protocol: [place] Activity Type Activity Date Activity User E-sign Co-sign Detail Recorded Client Recorded Date Recorded By Document 01/02/24 11:07 KW Desktop 01/02/24 11:17 KW Document 01/09/24 10:47 KW Desktop 01/09/24 11:05 KW 01/02/24 01/09/24 11:07 10:47 - Today's Visit Information Type of service Follow-up Visit Follow-up Visit (Physician/ENTERTAINMENT PRODUCTION PROFESSIONAL (Physician/ENTERTAINMENT PRODUCTION PROFESSIONAL ) ) Arrival Mode Wheelchair Walker Accompanied by sister Patient Identification Verified (Name & Yes Yes ) Vital Signs Temperature (97.8 F-99.1 F) 97.6 F L 98.4 F Temperature Source Temporal Temporal Pulse Rate (60-100) 58 L 63 Pulse Location Monitor Monitor Respiratory Rate (12-18) 18 18 Respiratory rate source Observation Observation Oxygen Delivery Method Room Air Room Air Blood Pressure (90/60-120/80) 135/55 H 126/64 H Blood Pressure Mean (mm Hg) 81 84 Source Monitor Monitor Position Semi-Fowlers Sitting Blood Pressure Location Left Arm Left Arm History Since Last Visit- (Skip if this is Patient's initial visit) Have you changed medications since your No No last visit? Any new allergies or adverse reactions No No Had a fall/change in ADL's that may No No increase risk of falls Signs or symptoms of abuse and/or No No neglect since last visit Have you been in the hospital since your No No last visit? Has dressing in place as prescribed Yes Yes Has compression in place as prescribed Yes Yes Has offloadiing in place as prescribed N/A Yes Experienced any changes in pain level or No No management Left Footwear Regular Shoe Slipper Right Footwear Regular Shoe Slipper Pain Scale: 0-10 Numeric Is Patient Pain Free? Yes Yes WC - Nurse 1 - General Ulcer Measurement Start: 01/02/24 11:06 Freq: Status: Active Protocol: Activity Type Activity Date Activity User E-sign Co-sign Detail Recorded Client Recorded Date Recorded By Document 01/02/24 11:07 [employer] 01/02/24 11:17 KW Document 01/09/24 10:47 KW [email or web address] 01/09/24 11:05 KW 01/02/24 01/09/24 11:07 10:47 Wound Center Nurse 1 10. R heel -Current Size (cm) - Length 1 0.8 -Current Size (cm) - Width 0.7 1.2 -Current Size (cm) - Depth 0.1 0.1 -Total Square Cm 0.7 0.96 -Exudate Amt Small Small -Exudate Type Serosanguineous Serosanguineous -Wound Margin Distinct, Outline Attached -Texture (Margy-wound Skin Appearance) Assessed -Moisture (Margy-wound Skin Appearance) Assessed -Color (Margy-wound Skin Appearance) Assessed -Temperature (Margy-wound Skin No Abnormality No Abnormality Appearance) (Pt Warm) (Pt Warm) -Tenderness on Palpation (Margy-wound No Skin Appearance) -Ulcer Cleansing Soap and Water Soap and Water -Anesthetic Used 5% Lidocaine 5% Lidocaine Gel Gel -Wound Comment(s) SCABBED scabbed over 9. L heel cluster -Current Size (cm) - Length 1.2 0.7 -Current Size (cm) - Width 1.6 1.8 -Current Size (cm) - Depth 0.1 0.2 -Total Square Cm 1.92 1.26 -Exudate Amt Small Small -Exudate Type Serosanguineous Serosanguineous -Wound Margin Distinct, Outline Attached -Granulation Amt Large (67-100%) Large (67-100%) -Granulation Quality Red [place] -Texture (Margy-wound Skin Appearance) Assessed -Moisture (Margy-wound Skin Appearance) Assessed,Dry/ Maceration Scaly -Color (Margy-wound Skin Appearance) Assessed -Temperature (Margy-wound Skin No Abnormality No Abnormality Appearance) (Pt Warm) (Pt Warm) -Tenderness on Palpation (Margy-wound No Skin Appearance) -Ulcer Cleansing Soap and Water Soap and Water -Anesthetic Used 5% Lidocaine 5% Lidocaine Gel Gel -Wound Comment(s) scabbing Right Calf (cm) 29.5 28 Right Ankle (cm) 23 21 Left Calf (cm) 29 26.9 Left Ankle (cm) 22 22 WC - Nurse 2 - General Ulcer CM Notes Start: 01/02/24 11:06 Freq: Status: Active Protocol: Activity Type Activity Date Activity User E-sign Co-sign Detail Recorded Client Recorded Date Recorded By Document 01/02/24 11:29 [employer] 01/02/24 11:31 Document 01/09/24 11:19 [employer] 01/09/24 11:26 01/02/24 01/09/24 11:29 11:19 Wound Center Nurse 2 10. R heel -Time 11:29 11:19 -Correct Patient Yes Yes -Correct Side, Site, Position Yes Yes -Correct Procedure Yes Yes -Procedure Performed Yes Yes -Type of Procedure Debridement Debridement -Clinical Debridement Subcutaneous Subcutaneous -Tissue Removed Subcutaneous Subcutaneous -Post Debridement (cm) - Length 0.7 1.0 -Post Debridement (cm) - Width 0.6 0.5 -Post Debridement (cm) - Depth 0.1 0.1 -Total Square (Post) (cm) 0.42 0.50 -Area of Debridement (cm) - Length 0.7 1.0 -Area of Debridement (cm) - Width 0.6 0.5 -Total Square (Area) (cm) 0.42 0.50 -Tunneling No No -Undermining/Tunneling No No -Circular Undermining No No -Wound/Ulcer Outcome Not Healed Not Healed -Ulcer Cleansing Rinsed/ Rinsed/ Irrigated with Irrigated with Saline Saline -Foul Odor after Cleansing No No -Bioengineered Tissue No No -Bleeding Controlled with Pressure Pressure -Treatment Response Procedure Procedure Tolerated Well Tolerated Well -Offloading No No -Debridement - Subq, 1st 20sq cm Yes Yes 9. L heel cluster -Time 11:29 11:19 -Correct Patient Yes Yes -Correct Side, Site, Position Yes Yes -Correct Procedure Yes Yes -Procedure Performed Yes Yes -Type of Procedure Debridement Debridement -Clinical Debridement Subcutaneous Subcutaneous -Tissue Removed Subcutaneous Subcutaneous -Post Debridement (cm) - Length 1.7 1.6 -Post Debridement (cm) - Width 0.5 0.5 -Post Debridement (cm) - Depth 0.1 0.1 -Total Square (Post) (cm) 0.85 0.80 -Area of Debridement (cm) - Length 1.7 1.6 -Area of Debridement (cm) - Width 0.5 0.5 -Total Square (Area) (cm) 0.85 0.80 -Tunneling No No -Undermining/Tunneling No No -Circular Undermining No No -Wound/Ulcer Outcome Not Healed Not Healed -Ulcer Cleansing Rinsed/ Rinsed/ Irrigated with Irrigated with Saline Saline -Foul Odor after Cleansing No No -Bioengineered Tissue Yes Yes -Type of Bioengineered Tissue Epifix 18mm Epifix 18mm Disc Disc -Expiration Date 08/30/28 08/30/28 -Product Lot Number [id number] -Percent Used 100 100 -Lot number of Saline Used [id number] -Bleeding Controlled with Pressure Pressure -Treatment Response Procedure Procedure Tolerated Well Tolerated Well -Offloading No No -Debridement - Subq, 1st 20sq cm No No -Apply Skin Sub - 1st 25 sq cm - Feet 1 1 -Epifix 18mm Disc 3 3 Pain Scale: 0-10 Numeric Is Patient Pain Free? Yes Yes WC - Nurse 3 - General Ulcer D/C NN Start: 01/02/24 11:06 Freq: Status: Active Protocol: Activity Type Activity Date Activity User E-sign Co-sign Detail Recorded Client Recorded Date Recorded By Document 01/02/24 12:09 RB [id number] 01/02/24 12:10 RB Document 01/09/24 11:39 KW Desktop 01/09/24 11:40 KW 01/02/24 01/09/24 12:09 11:39 Wound Care Center Nurse 3 10. R heel -Other Dressing ABD NURSES HAT -Primary Dressing Covered/Secured with Dry Gauze & Dry Gauze & Roll Gauze, Roll Gauze, Secured with Secured with Tape Tape 9. L heel cluster -Other Dressing ABD NURSES HAT -Primary Dressing Covered/Secured with Dry Gauze & Dry Gauze & Roll Gauze, Roll Gauze, Secured with Secured with Tape Tape Right -Tubular Bandage Single Layer Single Layer -Size of Tubigrip Used Size E Size D -Size D ($) 1 -Size E ($) 1 Left -Tubular Bandage Single Layer Single Layer -Size of Tubigrip Used Size E Size D -Size D ($) 1 -Size E ($) 1 Treatment Response Procedure Tolerated Well Pain Scale: 0-10 Numeric Is Patient Pain Free? Yes Yes WC - Visit Discharge Discharge Condition Stable Stable Ambulatory Status Wheelchair Wheelchair Transportation Private Auto Medication Reconcilliation completed & No No provided to patient/care provider Clinical Summary of Care Provided Yes Yes Assessment/Plan Assessment/Plan (1) Type 2 diabetes mellitus with foot ulcer: CODE(S): E11.621 - Type 2 diabetes mellitus with foot ulcer; L97.509 - Non-pressure chronic ulcer of other part of unspecified foot with unspecified severity QUALIFIERS: Diabetes mellitus detention insulin use: with detention use Qualified Code(s): E11.621 - Type 2 diabetes mellitus with foot ulcer; L97.509 - Non-pressure chronic ulcer of other part of unspecified foot with unspecified severity; Z79.4 - terminal worker (current) use of insulin PLAN: Exam performed Bilateral heel wounds were excisionally debrided down to including level subcutaneous tissue of all nonviable tissue using 3 mm dermal curette. No anesthesia due to neuropathy. Topical hemostasis applied with pressure. Patient tolerated procedure well. Pre and postdebridement measurements documented nursing notes. today EpiFix 2 x 2 centimeter graft applied to left heel wound in its entirety. Entire graft used, no waste. This was secured with overlying Adaptic and Steri-Strips. Dry sterile dressing applied. Patient will continue silver alginate dressing to right lower extremity. Patient is to offload heels at all times when at rest using Prevalon or PRAFO offloading boots. Will plan for continuation of advanced wound care grafting. Patient will follow-up weekly. 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
[2024-01-16 11:13] VITALS: BP 155/65; PULSE 61; RESP 18; TEMP 35.9
--- NOTE | 2024-01-16 11:42 | PCM.WC.PN ---
History of Present Illness Date of Service: 01/16/24 Chief Complaint: Right posterior heel ulceration History of Wound: 67-year-old female recently follow-up bilateral heel wounds. Denies constitutional symptoms. Denies pain. No other complaints. Objective Data Objective Data Vital Signs: Vital Signs Temp Pulse Resp BP O2 Del Method 96.6 F L 61 18 155/65 H Room Air 01/16/24 11:13 01/16/24 11:13 01/16/24 11:13 01/16/24 11:13 01/09/24 10:47 Oxygen Delivery Method Room Air Physical Exam Narrative Neurovascular status unchanged. Patient has intact pulses well-hydrated skin. Patient has absent light touch protective sensation bilateral feet. Full-thickness wounds to bilateral heels. Pre and postdebridement measurements documented nursing notes. Postdebridement wounds demonstrate 100% granular base. No evidence deep probing undermining or signs of infection at current. 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 No wound forming deformity noted. Muscular strength diminished to 4-5 bilateral lower extremity compartments. Const alert and oriented x3 Debridement Note Debridement Note Post-Debridement Measurements and Additional Note: Post-Debridement Measurements/Treatment - Nurse 1 - General Ulcer Assessment Start: 01/02/24 11:06 Freq: Status: Active Protocol: [place] Activity Type Activity Date Activity User E-sign Co-sign Detail Recorded Client Recorded Date Recorded By Document 01/02/24 11:07 KW [employer] 01/02/24 11:17 KW Document 01/09/24 10:47 KW Desktop 01/09/24 11:05 KW Document 01/16/24 11:13 RB Desktop 01/16/24 11:17 RB 01/02/24 01/09/24 01/16/24 11:07 10:47 11:13 - Today's Visit Information Type of service Follow-up Visit Follow-up Visit Follow-up Visit (Physician/TUBER MACHINE OPERATOR HELPER (Physician/TUBER MACHINE OPERATOR HELPER (Physician/TUBER MACHINE OPERATOR HELPER ) ) ) Arrival Mode Wheelchair Walker Wheelchair Transfer Assistance None Accompanied by sister Patient Identification Verified (Name & Yes Yes Yes ) Patient Requires Transmission-Based No Precautions Vital Signs Temperature (97.8 F-99.1 F) 97.6 F L 98.4 F 96.6 F L Temperature Source Temporal Temporal Temporal Pulse Rate (60-100) 58 L 63 61 Pulse Location Monitor Monitor Monitor Respiratory Rate (12-18) 18 18 18 Respiratory rate source Observation Observation Observation Oxygen Delivery Method Room Air Room Air Blood Pressure (90/60-120/80) 135/55 H 126/64 H 155/65 H Blood Pressure Mean (mm Hg) 81 84 95 Source Monitor Monitor Monitor Position Semi-Fowlers Sitting Semi-Fowlers Blood Pressure Location Left Arm Left Arm Left Arm History Since Last Visit- (Skip if this is Patient's initial visit) Have you changed medications since your No No No last visit? Any new allergies or adverse reactions No No No Had a fall/change in ADL's that may No No No increase risk of falls Signs or symptoms of abuse and/or No No No neglect since last visit Have you been in the hospital since your No No No last visit? Has dressing in place as prescribed Yes Yes Yes Has compression in place as prescribed Yes Yes Yes Has offloadiing in place as prescribed N/A Yes No Experienced any changes in pain level or No No No management Left Footwear Regular Shoe Slipper Right Footwear Regular Shoe Slipper Pain Scale: 0-10 Numeric Is Patient Pain Free? Yes Yes Yes WC - Nurse 1 - General Ulcer Measurement Start: 01/02/24 11:06 Freq: Status: Active Protocol: Activity Type Activity Date Activity User E-sign Co-sign Detail Recorded Client Recorded Date Recorded By Document 01/02/24 11:07 KW [employer] 01/02/24 11:17 KW Document 01/09/24 10:47 KW Desktop 01/09/24 11:05 KW Document 01/16/24 11:13 RB Desktop 01/16/24 11:17 RB 01/02/24 01/09/24 01/16/24 11:07 10:47 11:13 Wound Center Nurse 1 10. R heel -Combined with other wound No -Current Size (cm) - Length 1 0.8 0.1 -Current Size (cm) - Width 0.7 1.2 0.1 -Current Size (cm) - Depth 0.1 0.1 0.1 -Total Square Cm 0.7 0.96 0.01 -Tunneling No -Undermining/Tunneling No -Circular Undermining No -Exudate Amt Small Small Small -Exudate Type Serosanguineous Serosanguineous Serosanguineous -Wound Margin Distinct, Distinct, Outline Outline Attached Attached -Granulation Amt Medium (34-66%) -Granulation Quality Downs -Slough/Fibrin Yes -Necrosis Amt Medium (34-66%) -Necrotic Tissue Type Adherent Slough -Structure Exposed N/A -Texture (Margy-wound Skin Appearance) Assessed Assessed -Moisture (Margy-wound Skin Appearance) Assessed Dry/Scaly -Color (Margy-wound Skin Appearance) Assessed Assessed -Temperature (Mragy-wound Skin No Abnormality No Abnormality No Abnormality Appearance) (Pt Warm) (Pt Warm) (Pt Warm) -Tenderness on Palpation (Margy-wound No Skin Appearance) -Ulcer Cleansing Soap and Water Soap and Water Wound Cleanser -Foul Odor after Cleansing No -Anesthetic Used 5% Lidocaine 5% Lidocaine 5% Lidocaine Gel Gel Gel -Wound Comment(s) SCABBED scabbed over 9. L heel cluster -Combined with other wound No -Current Size (cm) - Length 1.2 0.7 0.1 -Current Size (cm) - Width 1.6 1.8 0.1 -Current Size (cm) - Depth 0.1 0.2 0.1 -Total Square Cm 1.92 1.26 0.01 -Tunneling No -Undermining/Tunneling No -Circular Undermining No -Exudate Amt Small Small Small -Exudate Type Serosanguineous Serosanguineous Serosanguineous -Wound Margin Distinct, Distinct, Outline Outline Attached Attached -Granulation Amt Large (67-100%) Large (67-100%) Medium (34-66%) -Granulation Quality Red Downs Downs -Slough/Fibrin Yes -Necrosis Amt Medium (34-66%) -Necrotic Tissue Type Adherent Slough -Structure Exposed N/A -Texture (Margy-wound Skin Appearance) Assessed Assessed -Moisture (Margy-wound Skin Appearance) Assessed,Dry/ Maceration Dry/Scaly Scaly -Color (Margy-wound Skin Appearance) Assessed Assessed -Temperature (Margy-wound Skin No Abnormality No Abnormality No Abnormality Appearance) (Pt Warm) (Pt Warm) (Pt Warm) -Tenderness on Palpation (Margy-wound No No Skin Appearance) -Ulcer Cleansing Soap and Water Soap and Water Wound Cleanser -Foul Odor after Cleansing No -Anesthetic Used 5% Lidocaine 5% Lidocaine 5% Lidocaine Gel Gel Gel -Wound Comment(s) scabbing Lower Limb Edema Present NA Right Calf (cm) 29.5 28 28.5 Right Ankle (cm) 23 21 20.5 Left Calf (cm) 29 26.9 28.5 Left Ankle (cm) 22 22 22 WC - Nurse 2 - General Ulcer CM Notes Start: 01/02/24 11:06 Freq: Status: Active Protocol: Activity Type Activity Date Activity User E-sign Co-sign Detail Recorded Client Recorded Date Recorded By Document 01/02/24 11:29 Laptop 01/02/24 11:31 Document 01/09/24 11:19 Laptop 01/09/24 11:26 Document 01/16/24 11:35 Laptop 01/16/24 11:39 01/02/24 01/09/24 01/16/24 11:29 11:19 11:35 Wound Center Nurse 2 10. R heel -Time 11:29 11:19 11:35 -Correct Patient Yes Yes Yes -Correct Side, Site, Position Yes Yes Yes -Correct Procedure Yes Yes Yes -Procedure Performed Yes Yes Yes -Type of Procedure Debridement Debridement Debridement -Clinical Debridement Subcutaneous Subcutaneous Subcutaneous -Tissue Removed Subcutaneous Subcutaneous Subcutaneous -Post Debridement (cm) - Length 0.7 1.0 0.2 -Post Debridement (cm) - Width 0.6 0.5 0.2 -Post Debridement (cm) - Depth 0.1 0.1 0.1 -Total Square (Post) (cm) 0.42 0.50 0.04 -Area of Debridement (cm) - Length 0.7 1.0 0.2 -Area of Debridement (cm) - Width 0.6 0.5 0.2 -Total Square (Area) (cm) 0.42 0.50 0.04 -Tunneling No No No -Undermining/Tunneling No No No -Circular Undermining No No No -Wound/Ulcer Outcome Not Healed Not Healed Not Healed -Ulcer Cleansing Rinsed/ Rinsed/ Rinsed/ Irrigated with Irrigated with Irrigated with Saline Saline Saline -Foul Odor after Cleansing No No No -Bioengineered Tissue No No No -Bleeding Controlled with Pressure Pressure Pressure -Treatment Response Procedure Procedure Procedure Not Tolerated Well Tolerated Well Tolerated Well -Offloading No No No -Debridement - Subq, 1st 20sq cm Yes Yes No 9. L heel cluster -Time 11:29 11:19 11:36 -Correct Patient Yes Yes Yes -Correct Side, Site, Position Yes Yes Yes -Correct Procedure Yes Yes Yes -Procedure Performed Yes Yes Yes -Type of Procedure Debridement Debridement Debridement -Clinical Debridement Subcutaneous Subcutaneous Subcutaneous -Tissue Removed Subcutaneous Subcutaneous Subcutaneous -Post Debridement (cm) - Length 1.7 1.6 0.5 -Post Debridement (cm) - Width 0.5 0.5 0.3 -Post Debridement (cm) - Depth 0.1 0.1 0.1 -Total Square (Post) (cm) 0.85 0.80 0.15 -Area of Debridement (cm) - Length 1.7 1.6 0.5 -Area of Debridement (cm) - Width 0.5 0.5 0.3 -Total Square (Area) (cm) 0.85 0.80 0.15 -Tunneling No No No -Undermining/Tunneling No No No -Circular Undermining No No No -Wound/Ulcer Outcome Not Healed Not Healed Not Healed -Ulcer Cleansing Rinsed/ Rinsed/ Rinsed/ Irrigated with Irrigated with Irrigated with Saline Saline Saline -Foul Odor after Cleansing No No No -Bioengineered Tissue Yes Yes No -Type of Bioengineered Tissue Epifix 18mm Epifix 18mm Disc Disc -Expiration Date 08/30/28 08/30/28 -Product Lot Number [id number] -Percent Used 100 100 -Lot number of Saline Used [id number] -Bleeding Controlled with Pressure Pressure Pressure -Treatment Response Procedure Procedure Procedure Tolerated Well Tolerated Well Tolerated Well -Offloading No No No -Debridement - Subq, 1st 20sq cm No No Yes -Apply Skin Sub - 1st 25 sq cm - Feet 1 1 -Epifix 18mm Disc 3 3 Pain Scale: 0-10 Numeric Is Patient Pain Free? Yes Yes Yes WC - Nurse 3 - General Ulcer D/C NN Start: 01/02/24 11:06 Freq: Status: Active Protocol: Activity Type Activity Date Activity User E-sign Co-sign Detail Recorded Client Recorded Date Recorded By Document 01/02/24 12:09 RB [id number] 01/02/24 12:10 RB Document 01/09/24 11:39 KW Desktop 01/09/24 11:40 KW 01/02/24 01/09/24 12:09 11:39 Wound Care Center Nurse 3 10. R heel -Other Dressing ABD NURSES HAT -Primary Dressing Covered/Secured with Dry Gauze & Dry Gauze & Roll Gauze, Roll Gauze, Secured with Secured with Tape Tape 9. L heel cluster -Other Dressing ABD NURSES HAT -Primary Dressing Covered/Secured with Dry Gauze & Dry Gauze & Roll Gauze, Roll Gauze, Secured with Secured with Tape Tape Right -Tubular Bandage Single Layer Single Layer -Size of Tubigrip Used Size E Size D -Size D ($) 1 -Size E ($) 1 Left -Tubular Bandage Single Layer Single Layer -Size of Tubigrip Used Size E Size D -Size D ($) 1 -Size E ($) 1 Treatment Response Procedure Tolerated Well Pain Scale: 0-10 Numeric Is Patient Pain Free? Yes Yes WC - Visit Discharge Discharge Condition Stable Stable Ambulatory Status Wheelchair Wheelchair Transportation Private Auto Medication Reconcilliation completed & No No provided to patient/care provider Clinical Summary of Care Provided Yes Yes Assessment/Plan Assessment/Plan (1) Type 2 diabetes mellitus with foot ulcer: CODE(S): E11.621 - Type 2 diabetes mellitus with foot ulcer; L97.509 - Non-pressure chronic ulcer of other part of unspecified foot with unspecified severity QUALIFIERS: Diabetes mellitus press tender long goods insulin use: with penitentiary use Qualified Code(s): E11.621 - Type 2 diabetes mellitus with foot ulcer; L97.509 - Non-pressure chronic ulcer of other part of unspecified foot with unspecified severity; Z79.4 - assisted (current) use of insulin PLAN: Exam performed Bilateral heel wounds were excisionally debrided down to including level subcutaneous tissue of all nonviable tissue using 3 mm dermal curette. No anesthesia due to neuropathy. Topical hemostasis applied with pressure. Patient tolerated procedure well. Pre and postdebridement measurements documented nursing notes. Will take a week break from EpiFix graft. Wound significantly improved. Wound bed and edges appear dry. Will proceed with hydrogel and overlying dry sterile dressing changes performed daily by patient. Patient is to offload heels at all times when at rest using Prevalon or PRAFO offloading boots. Will plan for continuation of advanced wound care grafting next week if required. Patient will follow-up weekly. (2) Type 2 diabetes mellitus with other skin ulcer: CODE(S): E11.622 - Type 2 diabetes mellitus with other skin ulcer; L98.499 - Non-pressure chronic ulcer of skin of other sites with unspecified severity QUALIFIERS: Diabetes mellitus press tender long goods insulin use: with press tender long goods use Qualified Code(s): E11.622 - Type 2 diabetes mellitus with other skin ulcer; Z79.4 - moth exterminator (current) use of insulin (3) Non-pressure chronic ulcer of other part of left foot with fat layer exposed: CODE(S): L97.522 - Non-pressure chronic ulcer of other part of left foot with fat layer exposed
== END 2024-01-28 23:59 | disposition home or self-care (01) ==
LOC: WC 10:45
PROVIDERS: PCP Family Medicine; Referring Provider Podiatrist; Visit Provider Podiatrist
DX: E11.621 Type 2 diabetes mellitus with foot ulcer (principal); L97.419 Non-pressure chronic ulcer of right heel and midfoot with unspecified severity; L97.522 Non-pressure chronic ulcer of other part of left foot with fat layer exposed; Z79.4 Long term (current) use of insulin
CPT/HCPCS: 11042; 15275; Q4186

== ENCOUNTER 2024-01-21 16:35 | Inpatient (IN) | payer MEDICARE, OTHER, SELFPAY ==
[2024-01-21 16:36] VITALS: BP 117/80; PULSE 65; RESP 18; TEMP 36.7; O2SAT 95; BMI 20.9
--- NOTE | 2024-01-21 17:14 | EKG12_ITS ---
Test Reason : Blood Pressure : / mmHG Vent. Rate : 065 BPM Atrial Rate : 065 BPM P-R Int : 146 ms QRS Dur : 092 ms QT Int : 416 ms P-R-T Axes : 066 -25 062 degrees QTc Int : 432 ms Normal sinus rhythm Normal ECG Confirmed by Celio uW ([id number]), general expeditor WHIT HUERTAS ([id number]) on 01/23/2024 9:11:20 AM Referred By: Confirmed By:Celio Wu
--- NOTE | 2024-01-21 17:16 | ED.VIS.GI ---
HPI HPI - GI History of Present Illness Chief Complaint: Nausea/Vomiting/Diarrhea Detail of Chief Complaint: Generalized weakness. Informant: patient Abdominal Pain/Flank Pain Onset: Weeks Context: Gradual Onset Timing: Continuous Nausea/Vomiting/Emesis GI Symptom: Positive for Nausea and Vomiting Onset: Weeks Quality: Positive for Nonbilious Severity: Mild Diarrhea/Melena/Hematochezia GI Symptom: Positive for Diarrhea; Negative for Melena or Hematochezia Onset: Weeks Stool Quality: Positive for Watery Severity: Mild Associated Symptoms Associated Symptoms: Positive for Dysuria; Negative for Frequency, Hematuria or Urgency Narrative Narrative: 68-year-old female past medical history of chronic diarrhea for 8 years for which she is seeing GI, DVT, diabetes, prior stroke. She was hospitalized in October and has been home now almost 2 months. States that she has had nausea, vomiting diarrhea for 2 weeks. She feels dehydrated and extremely weak. She has been able to keep down p.o. fluids. Denies any melena or fever. No abdominal pain. Mild dysuria. Patient lives alone at home. She is in a powered wheelchair because she has had half of her left foot amputated. 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 PAD (peripheral artery disease) Type 2 diabetes mellitus with diabetic polyneuropathy Ulcer of amputation stump of foot Wound of left foot Home Medications albuterol sulfate 90 mcg/actuation aerosol inhaler (Ventolin HFA) 1 puff inhalation Q4H PRN PRN SHORTNESS OF BREATH #0 grams 03/25/21 [Rx Last Taken 2 Weeks Ago ~03/27/23] ondansetron 4 mg disintegrating tablet 4 mg PO Q6H PRN PRN NAUSEA #0 tabs 03/25/21 [Rx Last Taken 04/10/23] tramadol 50 mg tablet 50 mg PO Q6H PRN Pain 05/18/21 [History Last Taken Unknown] acetaminophen 325 mg tablet 975 mg PO TID PRN Pain 12/31/22 [History Last Taken Unknown] folic acid 1 mg tablet 1 mg PO DAILY #30 tabs 02/15/23 [Rx Last Taken 04/09/23] sulfasalazine 500 mg tablet 1 g (2 x 500 mg) PO BID #120 tabs 02/15/23 [Rx Last Taken 04/10/23] Lactobacillus rhamnosus GG 10 billion cell capsule (Culturelle) 1 cap PO DAILY [facility] 04/10/23 [History Last Taken 04/09/23] budesonide 3 mg capsule,delayed,extended release 9 mg PO DAILY cdiff 04/10/23 [History Last Taken 04/10/23] cholecalciferol (vitamin D3) 125 mcg (5,000 unit) tablet 125 mcg PO DAILY SUPPLEMENT 04/10/23 [History Last Taken 04/09/23] diphenoxylate-atropine 2.5 mg-0.025 mg tablet 1 tab PO BID DIARRHEA 04/10/23 [History Last Taken 04/10/23] pantoprazole 40 mg tablet,delayed release 40 mg PO DAILY GERD 04/10/23 [History Last Taken 04/10/23] food supplemt, lactose-reduced 0.08 gram-1.5 kcal/mL oral liquid (Ensure Plus High Protein) 120 ml PO TIDCM #60 BOTTLES 04/14/23 [Rx Last Taken Unknown] methylprednisolone 4 mg tablets in a dose pack (Medrol (Neil)) 4 mg PO DAILY #21 tabs 04/14/23 [Rx Last Taken Unknown] vancomycin 25 mg/mL oral solution (Firvanq) 125 mg (5 mL) PO Q6 9 days #180 mL 04/14/23 [Rx Last Taken Unknown] scopolamine base 1 mg over 3 days transdermal patch 1 patch transdermal Q3D #10 ea 05/19/23 [Rx Last Taken Unknown] ondansetron 4 mg disintegrating tablet 4 mg PO Q8H #20 tabs 08/10/23 [Rx Last Taken Unknown] Allergy/AdvReac Type Severity Reaction Status Date / Time cefprozil Allergy Shortness Verified 05/19/23 15:12 of breath ceftriaxone Allergy Hives Verified 05/19/23 15:12 clindamycin Allergy Rash Verified 05/19/23 15:12 enalapril Allergy Other Verified 05/19/23 15:12 enoxaparin Allergy Rash Verified 05/19/23 15:12 heparin Allergy Rash Verified 05/19/23 15:12 levalbuterol Allergy Other Verified 05/19/23 15:12 morphine Allergy Shortness Verified 05/19/23 15:12 of breath Penicillins Allergy Anaphylaxis Verified 05/19/23 15:12 shellfish derived Allergy Anaphylaxis Verified 05/19/23 15:12 valsartan Allergy Other Verified 05/19/23 15:12 vancomycin Allergy Rash Verified 05/19/23 15:12 atorvastatin AdvReac Other Verified 05/19/23 15:12 rosuvastatin [From Crestor] AdvReac Other Verified 05/19/23 15:12 Family History Mother Cancer Lung CA w/ tobacco use history. Diabetes COPD (chronic obstructive pulmonary disease) Father Cancer Lung CA w/ tobacco use history. Diabetes COPD (chronic obstructive pulmonary disease) Heart disease Surgical History History of appendectomy History of eye surgery History of foot surgery History of lumpectomy History of tubal ligation Status post transmetatarsal amputation of left foot Tubal ligation status Social History household members: none Smoking Status: Never smoker alcohol intake: never substance use type: does not use ROS ROS ED ROS Narrative Nausea, vomiting and diarrhea. Dysuria. Generalized weakness. Review of Systems ROS Unobtainable: Denies due to encephalopathy Constitutional Constitutional ED: Denies chills or fever(s) ENT ENT ED: Denies ear pain Cardiovascular Cardiovascular: Denies chest pain or palpitations Respiratory/Chest Respiratory/Chest: Denies cough or dyspnea Gastrointestinal Gastrointestinal: Reports diarrhea, nausea and vomiting; Denies abdominal pain, constipation or melena Genitourinary Genitourinary ED: Reports dysuria; Denies hematuria Musculoskeletal Musculoskeletal: Denies arthralgias or back pain Integumentary Denies abscess or Abrasions Neurologic Neurologic: Denies headache(s) Psychiatric Psychiatric: Denies anxiety or depression Endocrine Endocrinology: Denies polydipsia, polyphagia or polyuria Hematologic/Lymphatic Hematologic/Lymphatic: Denies easy bleeding, easy bruising or lymphadenopathy Allergic/Immunologic Allergic/Immunologic ED: Denies mouth swelling, tongue swelling or urticaria EXAM Physical Exam Narrative Exam Narrative: Six 8-year-old female no acute distress. Vital signs stable afebrile. HEENT exam dry reactive light. Extra motions are intact. Moist mucous membranes. No facial droop. No trauma to her face or scalp. Neck nontender. No lymphadenopathy. Lungs clear to auscultation bilaterally. Heart regular rhythm rate about 65 no murmur. Chest wall and ribs nontender. Abdomen soft nontender. Normal bowel sounds no peritoneal signs. No hernia or mass. No obstruction. Moving all 4 extremities. Bilateral lower extremity diabetic neuropathy with decreased sensation from her knees down. Half of her left foot has been amputated. Is well-healed. Normal dorsi plantarflexion of the right foot. Upper extremities unremarkable. Normal development director strength. Back nontender. Neurologically she is awake and alert. No focal motor deficits. Const Vital Signs: 01/21/24 16:36 Temperature 98.1 F Temperature Source Temporal Pulse Rate 65 Respiratory Rate 18 Blood Pressure 117/80 Blood Pressure Mean 92 Pulse Ox 95 Oxygen Delivery Method Room Air Positive well nourished and well developed; Negative for obese, cachectic, contractures or unkempt General Appearance ED: well developed and NAD; Negative for unkempt, cachectic, contractures or pallor Nutritional Appearance: Negative for cachectic or obese HEENT Reports moist mucous membranes; Denies dry mucous membranes normocephalic and atraumatic; Negative for trauma or tenderness Mouth ED: No dry mucous membranes Mouth: No dry mucous membranes Eyes PERRL and EOMs intact bilaterally General Eye ED: Negative for pale conjunctiva or scleral icterus Neck no lymphadenopathy, supple and no JVD General: Negative for tenderness Carotids: Negative for other Lymph Lymphatic: Negative for other Resp normal respiratory effort and clear to auscultation bilaterally Effort and Inspection: Negative for respiratory distress Auscultation: Negative for rales, rhonchi or wheezes Cardio regular rate, regular rhythm, S1 normal heart sound, S2 normal heart sound and no murmurs Rate: Negative for bradycardia or tachycardic Rhythm: Negative for abnormal rhythm GI non-tender, non-distended and no masses Inspection: Negative for abdominal distention Auscultation: normoactive bowel sounds Palpation: soft; Negative for tender, guarding or rebound tenderness present Back/Spine no CVA tenderness General Back: Negative for CVA tenderness Cervical Spine: Negative for cervical spine tenderness Thoracic Spine / Upper Back: Negative for thoracic spinal tenderness Lumbar Spine / Lower Back: Negative for lumbar spinal tenderness Extremity full ROM General Extremety ED: Negative for edema, tenderness or other findings General Extremity: Negative for edema or other findings Neuro CN's II-XII intact bilaterally, moves all extremities and No no sensory deficits noted Neuro Narrative: Bilateral lower extremity diabetic neuropathies. Sensorium / Orientation: alert, oriented to person, oriented to place and oriented to time; Negative for orientation impaired, confused or lethargic Motor Exam: strength 5/5 throughout Psych mental status grossly normal and thought process normal Appearance: Negative for unkempt Attitude: No agitated Mood & Affect: Negative for anxious or tearful Skin no wounds General Skin Exam: Negative for jaundice or pallor Lesions: no lesions Rashes: no rashes Trauma: Negative for abrasion Nails: Negative for discolored MDM MDM MDM Narrative Medical decision making narrative: 68-year-old diabetic female with chronic diarrhea for 8 years. Now causing nausea vomiting diarrhea for last 2 weeks. Clinically states she feels dehydrated. Will be treated with IV Zofran for nausea. Liter normal saline. Screening labs to be obtained for generalized weakness. Repeat exam at 6:40 PM unchanged. Discussed test results with patient. She has a UTI. Urine culture will be sent. I ordered stool culture. She states she has had C. difficile before and this is nothing like that does not believe that she has C. difficile at this time. She has multiple antibiotic allergies. Told me that she is allergic to Rocephin. Said she cannot take Cipro or Levaquin. I will discuss with the hospitalist antibiotic choice. Patient told me she feels like she is too weak to be discharged home. She lives alone at home. Lab Data Attestation: I reviewed the patient's lab results. Lab results narrative: Viral studies negative. Negative COVID and flu. Chest x-ray negative. CBC shows white count 11.6. H&H 9.7 and 29.7 which is her baseline anemia. Platelets 299. Electrolytes show gap 7. BUN of 34 creatinine 1.43. Liver enzymes are normal. Glucose 91. Urinalysis shows greater than 100 white cells 2+ bacteria no nitrates. This to be treated as UTI. Urine culture will be sent. Labs: Laboratory Results - last 24 hr 01/21/24 01/21/24 17:22 17:34 WBC 11.6 H RBC 3.26 L Hgb 9.7 L Hct 29.7 L MCV 91.1 MCH 29.8 MCHC 32.7 RDW Std Deviation 45.4 H RDW Coeff of Xin 13.6 Plt Count 299 MPV 9.6 Immature Gran % (Auto) 0.500 Neut % (Auto) 78.2 H Lymph % (Auto) 14.0 L [place] % (Auto) 6.7 Eos % (Auto) 0.3 Baso % (Auto) 0.3 Absolute Neuts (auto) 9.1 H Absolute Lymphs (auto) 1.63 Nucleated RBC % 0 Sodium 138 Potassium 3.5 Chloride 107 Carbon Dioxide 24.0 Anion Gap 7 BUN 34 H Creatinine 1.43 H Estim Creat Clear Calc 32.97 Est GFR (MDRD) Af Amer 47 L Est GFR (MDRD) Non-Af 39 L BUN/Creatinine Ratio 23.8 H Glucose 91 Calcium 8.1 L Total Bilirubin 0.70 AST 27 ALT 11 L Alkaline Phosphatase 121 H Total Protein 7.6 Albumin 1.7 L Globulin 5.9 H Albumin/Globulin Ratio 0.3 L Urine Color Yellow Urine Clarity Cloudy Urine pH 6.0 Ur Specific [place] 1.005 Urine Protein 30 H Urine Glucose (UA) Normal Urine Ketones Negative Urine Occult Blood 50 H Urine Nitrite Negative Urine Bilirubin Negative Urine Urobilinogen Normal Ur Leukocyte Esterase 500 H Urine RBC 0 SEEN Urine WBC >100 SEEN Ur Squamous Epith Cells 0-5 SEEN Urine Bacteria 2+ Urine Mucus 0 SEEN Radiography Chest X-Ray - ED: 1 View, Read by ED Physician, Read by Radiologist, Normal, Heart, Lungs, Mediastinum, Bony Structures, No Acute Disease and Chronic Changes Diagnostic Testing: Clinical Impression(s) from Imaging Studies Chest X-Ray 01/21/24 17:55 IMPRESSION: There are no acute findings. Electronically Signed: Roberto Pennington MD at 18:23 EDT , Rhythm Strip Rhythm Strip: Sinus Rhythm Rate: 65 Ectopy: None EKG Initial EKG: Attestation: I personally reviewed and interpreted this EKG as follows: Interpretation: Sinus Rhythm and No Acute Injury Pattern Comments: Normal sinus rhythm rate of 65 no acute signs of OH, ischemia nor dysrhythmia. Discharge Plan Triage Chief Complaint: Nausea/Vomiting/Diarrhea ED Provider: Luis Miguel Elkins Dx/Rx/DC Orders Clinical Impression: Nausea, vomiting and diarrhea, Acute dehydration, Generalized weakness, Urinary tract infection, Unable to ambulate Prescriptions: No Action folic acid 1 mg tablet 1 mg PO DAILY Qty: 30 11RF sulfasalazine 500 mg tablet 1 g PO BID Qty: 120 11RF Hold Instructions: MD Ordered Rx Instructions: give with food (meal/snack); take with folic acid scopolamine base 1 mg over 3 days patch 3 day 1 patch transdermal Q3D Qty: 10 3RF Hold Instructions: MD Ordered albuterol sulfate [Ventolin HFA] 90 mcg/actuation Hfa Aerosol Inhaler 1 puff inhalation Q4H PRN PRN (Reason: SHORTNESS OF BREATH) Qty: 0 0RF ondansetron 4 mg Tablet,Disintegrating 4 mg PO Q6H PRN PRN (Reason: NAUSEA) Qty: 0 0RF tramadol 50 mg Tablet 50 mg PO Q6H PRN (Reason: Pain) acetaminophen 325 mg Tablet 975 mg PO TID PRN (Reason: Pain) diphenoxylate-atropine 2.5-0.025 mg tablet 1 tab PO BID Patient Comments: TAKE 1 TABLET BY MOUTH TWICE A DAY NEEDED FOR DIARRHEA pantoprazole 40 mg Tablet,Delayed Release (Dr/Ec) 40 mg PO DAILY Culturelle 10 billion cell Capsule 1 cap PO DAILY cholecalciferol (vitamin D3) 125 mcg (5,000 unit) Tablet 125 mcg PO DAILY budesonide 3 mg capsule,delayed,extend.release 9 mg PO DAILY Hold Instructions: MD Ordered Patient Comments: TAKE 3 CAPSULES (9 MG TOTAL) (3 X 3 MG) BY MOUTH DAILY Ensure Plus High Protein 0.08 gram-1.5 kcal/mL Liquid 120 ml PO TIDCM Qty: 60 0RF Hold Instructions: Ordered vancomycin [Firvanq] 25 mg/mL Recon Soln 125 mg PO Q6 9 Days Qty: 180 0RF Hold Instructions: Ordered methylprednisolone [Medrol (Neil)] 4 mg tablets,dose pack 4 mg PO DAILY Qty: 21 0RF Hold Instructions: MD Ordered ondansetron 4 mg tablet,disintegrating 4 mg PO Q8H Qty: 20 0RF Hold Instructions: MD Ordered Primary Care Provider: Cody Billings Referrals: Cody Billings MD [Primary Care Provider] -
[2024-01-21 17:45] LABS: Absolute Lymphocyte Count 1.63 X10^3/uL (0.83-4.51); Absolute Neutrophil Count 9.1 X10^3/uL (2.0-7.7); Basophil# 0.04 X10^3/uL; Basophil% 0.3 % (0-1); Eosinophil# 0.03 X10^3/uL; Eosinophils% 0.3 % (0-5); Hematocrit 29.7 % (37-47); Hemoglobin 9.7 g/dL (12.0-15.0); Lymphocyte # 1.63 X10^3/ul (0.83-4.51); Mean Corp Hgb Conc 32.7 g/dL (32-36); Mean Corpuscular Hgb 29.8 pg (27.0-32.0); Mean Corpuscular Volume 91.1 fL (81-99); Mean Platelet Vol. 9.6 fl (6.2-12.0); Monocyte# 0.78 X10^3/uL; Monocyte% 6.7 % (0-10); NRBC Flagged by Analyzer 0 % (0-5); Neutrophil % 78.2 % (47-70); Platelet Count 299 K/mm3 (150-450); RBC Distribution Width CV 13.6 % (11.6-14.6); RBC Distribution Width SD 45.4 fl (35.1-43.9); Red Blood Count 3.26 M/mm3 (4.2-5.4); White Blood Count 11.6 K/mm3 (4.4-11.0)
[2024-01-21 17:48] LABS: Mucous, Urine 0 SEEN /hpf (<or=2+); Red Blood Cells-Urine 0 SEEN /hpf (0-5)
[2024-01-21] MEDS: 0.9% Normal Saline (1000mL) 1,000 ML 1000 ML IV (17:50)
[2024-01-21] MEDS: Ondansetron 4 MG/2 ML Vial IV (17:51)
--- NOTE | 2024-01-21 17:55 | RAD_ITS ---
STUDY: XR Chest 1 View 01/21/2024 5:47 PM REASON FOR EXAM: Female, 68 years old. weakness COMPARISON: None TECHNIQUE: XR Chest 1 View FINDINGS: There is no demonstrated pleural abnormality. Normal heart size. Normal mediastinum. Normal nina. Prominent appearing increased interstitial lung markings. Normal visualized pulmonary arteries. There is atherosclerotic calcification of the aortic arch with tortuosity. There are diffuse degenerative changes of the visualized thoracic spine. There is degenerative osteoarthritis of the bilateral shoulders. There are no acute findings of the upper abdomen. RAD/Chest 1 View (Portable) IMPRESSION: There are no acute findings. Electronically Signed: Roberto Pennington MD at 18:23 EDT ,
[2024-01-21 18:04] LABS: Color, Urine Yellow (Yellow); Glucose, Dipstick Normal (Normal); Ketone-Dipstick Negative (Negative); Leukocyte Esterase-Dipstick 500 /ul (Negative); Nitrite-Dipstick Negative (Negative); Occult Blood-Urine 50 /ul (Negative); Protein-Dipstick 30 mg/dl (Negative); Specific Gravity, Urine 1.005 (1.002-1.030); Urine Bilirubin Dipstick Negative (Negative); Urine Clarity Cloudy (Clear); Urine Urobilinogen Normal (Normal)
[2024-01-21 18:13] LABS: White Blood Cells >100 SEEN /hpf (0-5)
[2024-01-21 18:14] LABS: Bacteria 2+ /hpf (None Seen); Squamous Epithelial Cells - UA 0-5 SEEN /hpf (5-10)
[2024-01-21 18:17] LABS: ALB/GLOB Ratio 0.3 RATIO (0.9-2.4); AST(SGOT) 27 U/L (15-37); Alanine Aminotransfer ALT/SGPT 11 U/L (13-56); Albumin, Serum 1.7 g/dL (3.2-5.0); Alkaline Phosphatase 121 U/L (45-117); Anion Gap 7 (5-15); BUN 34 mg/dL (7-18); BUN/Creat Ratio 23.8 RATIO (10-20); Calcium,Total 8.1 mg/dL (8.5-10.1); Chloride 107 mmol/L (98-107); Creatinine, Serum 1.43 mg/dL (0.55-1.02); EST Glomerular Filtration Rate 39 mL/min (>60); Est Glom Filt Rate - Afr Amer 47 mL/min (>60); Estimated Creatinine Clearance 32.97 ml/min; Globulin 5.9 g/dL (2.2-4.2); Glucose 91 mg/dL (74-106); Potassium 3.5 mmol/L (3.5-5.1); Protein, Total 7.6 g/dL (6.4-8.2); Sodium Level 138 mmol/L (136-145)
[2024-01-21 19:11] VITALS: BP 148/71; PULSE 71; RESP 18; TEMP 36.6; O2SAT 97
[2024-01-21 19:12] VITALS: BP 148/71; PULSE 71; RESP 18; O2SAT 97
--- NOTE | 2024-01-21 19:12 | PCM.HP.STD ---
HPI - General General Date of Admission: 01/21/24 Date of Service: 01/21/24 Chief Complaint: Acute nausea and vomiting HPI Narrative RED PRICE, is a 68 F with past medical history of type 2 diabetes [not on any medications], left below ankle amputation, chronic diarrhea, foramen magnum and basilar skull tumors, prior CVA [not on anticoagulation] who presents present to the ED with concerns regarding ongoing diarrhea, nausea and vomiting since last 2 weeks. For about the last 10 to 14 days she has been noticing progressive nausea to solids and liquids associated with vomiting and 4-5 episodes of watery diarrhea. There is no associated blood in stools. She had some sick contacts about 2 weeks back and relates the episode with that. There is associated dysuria with urgency and frequency present. Denies any fever No changes in her vision, dexterity, no focal weakness. No changes in her medications She has an extensive history of allergies to antibiotics. Does not smoke, no alcohol use, no other drug use. No recent changes in her medications. [facility] Medical History Brain tumor (benign) Debility Deep venous thrombosis of distal end of left lower extremity Diabetic foot ulcer Gastroesophageal reflux disease Gastroparesis History of cerebrovascular accident History of deep venous thrombosis (DVT) of distal vein of left lower extremity History of ischemic colitis History of myocardial infarction History of pneumonia Migraine Non-pressure chronic ulcer of other part of right foot with fat layer exposed Osteoarthritis of cervical and lumbar spine PAD (peripheral artery disease) Type 2 diabetes mellitus with diabetic polyneuropathy Ulcer of amputation stump of foot Wound of left foot Home Medications albuterol sulfate 90 mcg/actuation aerosol inhaler (Ventolin HFA) 1 puff inhalation Q4H PRN PRN SHORTNESS OF BREATH #0 grams 03/25/21 [Rx Last Taken 2 Weeks Ago ~03/27/23] ondansetron 4 mg disintegrating tablet 4 mg PO Q6H PRN PRN NAUSEA #0 tabs 03/25/21 [Rx Last Taken 04/10/23] tramadol 50 mg tablet 50 mg PO Q6H PRN Pain 05/18/21 [History Last Taken Unknown] acetaminophen 325 mg tablet 975 mg PO TID PRN Pain 12/31/22 [History Last Taken Unknown] folic acid 1 mg tablet 1 mg PO DAILY #30 tabs 02/15/23 [Rx Last Taken 04/09/23] sulfasalazine 500 mg tablet 1 g (2 x 500 mg) PO BID #120 tabs 02/15/23 [Rx Last Taken 04/10/23] Lactobacillus rhamnosus GG 10 billion cell capsule (Culturelle) 1 cap PO DAILY GUT HEALTH 04/10/23 [History Last Taken 04/09/23] budesonide 3 mg capsule,delayed,extended release 9 mg PO DAILY cdiff 04/10/23 [History Last Taken 04/10/23] cholecalciferol (vitamin D3) 125 mcg (5,000 unit) tablet 125 mcg PO DAILY SUPPLEMENT 04/10/23 [History Last Taken 04/09/23] diphenoxylate-atropine 2.5 mg-0.025 mg tablet 1 tab PO BID DIARRHEA 04/10/23 [History Last Taken 04/10/23] pantoprazole 40 mg tablet,delayed release 40 mg PO DAILY GERD 04/10/23 [History Last Taken 04/10/23] food supplemt, lactose-reduced 0.08 gram-1.5 kcal/mL oral liquid (Ensure Plus High Protein) 120 ml PO TIDCM #60 BOTTLES 04/14/23 [Rx Last Taken Unknown] methylprednisolone 4 mg tablets in a dose pack (Medrol (Neil)) 4 mg PO DAILY #21 tabs 04/14/23 [Rx Last Taken Unknown] vancomycin 25 mg/mL oral solution (Firvanq) 125 mg (5 mL) PO Q6 9 days #180 mL 04/14/23 [Rx Last Taken Unknown] scopolamine base 1 mg over 3 days transdermal patch 1 patch transdermal Q3D #10 ea 05/19/23 [Rx Last Taken Unknown] ondansetron 4 mg disintegrating tablet 4 mg PO Q8H #20 tabs 08/10/23 [Rx Last Taken Unknown] Allergy/AdvReac Type Severity Reaction Status Date / Time cefprozil Allergy Shortness Verified 05/19/23 15:12 of breath ceftriaxone Allergy Hives Verified 05/19/23 15:12 clindamycin Allergy Rash Verified 05/19/23 15:12 enalapril Allergy Other Verified 05/19/23 15:12 enoxaparin Allergy Rash Verified 05/19/23 15:12 heparin Allergy Rash Verified 05/19/23 15:12 levalbuterol Allergy Other Verified 05/19/23 15:12 morphine Allergy Shortness Verified 05/19/23 15:12 of breath Penicillins Allergy Anaphylaxis Verified 05/19/23 15:12 shellfish derived Allergy Anaphylaxis Verified 05/19/23 15:12 valsartan Allergy Other Verified 05/19/23 15:12 vancomycin Allergy Rash Verified 05/19/23 15:12 atorvastatin AdvReac Other Verified 05/19/23 15:12 rosuvastatin [From Crestor] AdvReac Other Verified 05/19/23 15:12 Family History Mother Cancer Lung CA w/ tobacco use history. Diabetes COPD (chronic obstructive pulmonary disease) Father Cancer Lung CA w/ tobacco use history. Diabetes COPD (chronic obstructive pulmonary disease) Heart disease Surgical History History of appendectomy History of eye surgery History of foot surgery History of lumpectomy History of tubal ligation Status post transmetatarsal amputation of left foot Tubal ligation status Social History household members: none Smoking Status: Never smoker alcohol intake: never substance use type: does not use ROS Review of Systems ROS Unobtainable: Denies due to encephalopathy, due to endotracheal tube, due to mental condition, due to mental status or other Constitutional Constitutional: Reports anorexia, change in weight and weakness Eyes Eyes: Denies blurry vision, change in eye color, change in vision, discharge from eye(s), double vision, erythema, eye pain, loss of vision or other ENT HEENT: Denies abnormal hearing, dysphagia, ear pain, epistaxis, headache(s), hearing loss, nasal congestion, nasal discharge, post nasal drip, sinus pressure, sore throat or other Cardiovascular Cardiovascular: Denies chest pain, claudication, dyspnea on exertion, edema, lightheadedness, orthopnea, palpitations, paroxysmal nocturnal dyspnea, rapid heart rate, syncope or other Respiratory/Chest Respiratory/Chest: Denies cough, dyspnea, excessive phlegm production, hemoptysis, productive cough, shortness of breath at rest, shortness of breath with exertion, wheezing or other Gastrointestinal Gastrointestinal: Reports diarrhea, loose stools, nausea and vomiting Genitourinary Genitourinary: Denies burning urination, difficulty urinating, dysuria, hematuria, nocturia, urinary frequency, urinary hesitancy, urinary incontinence, urinary urgency or other Musculoskeletal Musculoskeletal: Denies arthralgias, back pain, joint pain, joint stiffness, joint swelling, myalgias, neck pain or other Neurologic Neurologic: Denies abnormal gait, abnormal speech, confusion, disequilibrium, dizziness, focal weakness, headache(s), numbness, paresthesias, seizure-like activity, seizures, syncope, tingling, tremor(s) or other Psychiatric Psychiatric: Denies anxiety, depression, homicidal ideation, suicidal ideation or other Endocrine Endocrinology: Denies change in body appearance, cold intolerance, excessive sweating, heat intolerance, polydipsia, polyuria or other Hematologic/Lymphatic Hematologic/Lymphatic: Denies anemia, easy bleeding, easy bruising, lymphadenopathy or other Vital Signs Vital Signs Vital Signs: 01/21/24 16:36 Temperature 98.1 F Temperature Source Temporal Pulse Rate 65 Respiratory Rate 18 Blood Pressure 117/80 Blood Pressure Mean 92 Pulse Ox 95 Oxygen Delivery Method Room Air Weight Weight: 121 lb 14.65 oz Body Mass Index (BMI) 20.9 Physical Exam Const alert and oriented x3 HEENT normocephalic Eyes PERRL Neck no lymphadenopathy Resp normal respiratory effort Cardio regular rate and regular rhythm GI GI Narrative: Tenderness in the left flank Extremity Extremity Narrative: Prior amputation of her left below ankle joints look normal Results Medical Records Data Attestation: I reviewed the patient's medical records Lab / Micro Data Attestation: I reviewed the patient's lab results. Lab results narrative: Leukocytosis, anemia 9.7 hemoglobin, creatinine 1.4, albumin 1.7, urine WBC greater than 100, urine leukoesterase 500 01/21/24 17:22 01/21/24 17:22 Labs: Laboratory Results - last 24 hr 01/21/24 17:22: WBC 11.6 H, RBC 3.26 L, Hgb 9.7 L, Hct 29.7 L, MCV 91.1, MCH 29.8, MCHC 32.7, RDW Std Deviation 45.4 H, RDW Coeff of Xin 13.6, Plt Count 299, MPV 9.6, Immature Gran % (Auto) 0.500, Neut % (Auto) 78.2 H, Lymph % (Auto) 14.0 L, [place] % (Auto) 6.7, Eos % (Auto) 0.3, Baso % (Auto) 0.3, Absolute Neuts (auto) 9.1 H, Absolute Lymphs (auto) 1.63, Nucleated RBC % 0, Sodium 138, Potassium 3.5, Chloride 107, Carbon Dioxide 24.0, Anion Gap 7, BUN 34 H, Creatinine 1.43 H, Estim Creat Clear Calc 32.97, Est GFR (MDRD) Af Amer 47 L, Est GFR (MDRD) Non-Af 39 L, BUN/Creatinine Ratio 23.8 H, Glucose 91, Calcium 8.1 L, Total Bilirubin 0.70, AST 27, ALT 11 L, Alkaline Phosphatase 121 H, Total Protein 7.6, Albumin 1.7 L, Globulin 5.9 H, Albumin/Globulin Ratio 0.3 L 01/21/24 17:34: Urine Color Yellow, Urine Clarity Cloudy, Urine pH 6.0, Ur Specific [place] 1.005, Urine Protein 30 H, Urine Glucose (UA) Normal, Urine Ketones Negative, Urine Occult Blood 50 H, Urine Nitrite Negative, Urine Bilirubin Negative, Urine Urobilinogen Normal, Ur Leukocyte Esterase 500 H, Urine RBC 0 SEEN, Urine WBC >100 SEEN, Ur Squamous Epith Cells 0-5 SEEN, Urine Bacteria 2+, Urine Mucus 0 SEEN Micro: Microbiology 01/21/24 17:22 Mucosa - Nose SARS-CoV-2, Influenza & RSV (PCR) - Final Rhythm Strip Rhythm Strip: Sinus Rhythm Rate: 65 Ectopy: None Imaging Radiology Impression Chest X-Ray 01/21/24 17:55 IMPRESSION: There are no acute findings. Electronically Signed: Roberto Pennington MD at 18:23 EDT Reading Location ID and State: [facility] / [place] , Service support , Assessment & Plan Assessment/Plan (1) Urinary tract infection: PLAN: Plan 68-year-old female with history of brainstem tumors, type 2 diabetes not on any therapy, chronic diarrhea, prior C. difficile colitis, irritable bowel syndrome, prior diverticular bleeding is being admitted for worsening nausea vomiting and features of urinary tract infection on urine analysis. 1. Chronic diarrhea, nausea vomiting: She follows up with Dr. Melissa here at [facility], prior consideration was regarding inflammatory bowel disease and she has been treated with budesonide and sulfasalazine, evaluation for C. difficile is negative. She has been on chronic antibiotic therapy for chronic osteomyelitis. -Inpatient GI consult regarding her chronic diarrhea if the infectious workup negative -Stool ova parasite, stool culture, C. difficile -Will hold her for home Lomotil given the concerns regarding infection -IV LR at the rate 100 cc/h 1 L given her chronic fluid loss 2. Urinary tract infection: -Urine culture -Ultrasound kidneys to rule out any abscesses -Oral Macrobid given her extensive allergies to antibiotics, will change based on her cultures 3. Acute nausea and vomiting: Could be in the setting of in UTI. -Given her prior history of brainstem tumors, if there is no improvement in the nausea vomiting with antibiotic therapy will get a repeat CT scan with IV contrast after the ANNIKA improves 4. ANNIKA on CKD: -Likely in the setting of ongoing diarrhea and fluid loss -Fluid therapy as above -Repeat creatinine levels 5. COPD: Continue albuterol 6. GERD: Continue pantoprazole 40 mg daily 7. DVT: High risk but has allergies to enoxaparin and heparin, SCD ordered 8. Type 2 diabetes: Not on any medications, -HbA1c levels Charges/Coding Visit Charges Inpatient E&M: 41107 Init Hosp L2
[2024-01-21 19:28] VITALS: BP 148/71; PULSE 71; RESP 18; TEMP 37.1; O2SAT 97
[2024-01-21 20:28] LABS: Hemoglobin A1c 4.8 % (3.8-5.6)
[2024-01-21 20:56] VITALS: BP 166/105; PULSE 66; RESP 17; TEMP 36.5; O2SAT 100
[2024-01-21 21:02] VITALS: BMI 18.8
[2024-01-21] MEDS: 0.9% Normal Saline (1000mL) 1,000 ML 100 ML IV (21:32)
[2024-01-21] MEDS: Acetaminophen 325 MG Tablet 975 MG PO (22:13)
[2024-01-21] MEDS: MELATONIN 3 MG TABLET PO (22:13)
[2024-01-21] MEDS: proCHLORPERazine 10 MG/2 ML Vial 5 MG IV (22:14)
[2024-01-22 04:04] VITALS: BP 140/55; PULSE 61; RESP 16; TEMP 36.4; O2SAT 99
[2024-01-22 06:31] LABS: Absolute Lymphocyte Count 2.79 X10^3/uL (0.83-4.51); Absolute Neutrophil Count 5.9 X10^3/uL (2.0-7.7); Basophil# 0.06 X10^3/uL; Basophil% 0.6 % (0-1); Eosinophil# 0.07 X10^3/uL; Eosinophils% 0.7 % (0-5); Hemoglobin 8.2 g/dL (12.0-15.0); Lymphocyte # 2.79 X10^3/ul (0.83-4.51); Lymphocyte % 29.6 % (19-41); Mean Corp Hgb Conc 31.5 g/dL (32-36); Mean Corpuscular Hgb 29.4 pg (27.0-32.0); Mean Corpuscular Volume 93.2 fL (81-99); Mean Platelet Vol. 9.9 fl (6.2-12.0); Monocyte# 0.62 X10^3/uL; Monocyte% 6.6 % (0-10); NRBC Flagged by Analyzer 0 % (0-5); Neutrophil # 5.85 X10^3/uL (2.7-7.7); Platelet Count 249 K/mm3 (150-450); RBC Distribution Width CV 13.7 % (11.6-14.6); RBC Distribution Width SD 46.4 fl (35.1-43.9); Red Blood Count 2.79 M/mm3 (4.2-5.4); White Blood Count 9.4 K/mm3 (4.4-11.0)
[2024-01-22 06:45] LABS: International Normalized Ratio 2.1; Prothrombin Time (Protime)PT. 23.6 SECONDS (11.7-14.9)
[2024-01-22 07:10] LABS: ALB/GLOB Ratio 0.3 RATIO (0.9-2.4); AST(SGOT) 28 U/L (15-37); Alanine Aminotransfer ALT/SGPT 11 U/L (13-56); Albumin, Serum 1.5 g/dL (3.2-5.0); Alkaline Phosphatase 101 U/L (45-117); Anion Gap 7 (5-15); BUN 29 mg/dL (7-18); BUN/Creat Ratio 24.6 RATIO (10-20); Bilirubin, Direct 0.22 mg/dL (0.00-0.30); Calcium,Total 7.3 mg/dL (8.5-10.1); Chloride 111 mmol/L (98-107); Creatinine, Serum 1.18 mg/dL (0.55-1.02); EST Glomerular Filtration Rate 48 mL/min (>60); Est Glom Filt Rate - Afr Amer 59 mL/min (>60); Estimated Creatinine Clearance 36.44 ml/min; Glucose 84 mg/dL (74-106); Magnesium 1.4 mg/dL (1.6-2.6); Phosphorus 1.8 mg/dL (2.5-4.9); Potassium 2.9 mmol/L (3.5-5.1); Protein, Total 6.5 g/dL (6.4-8.2); Sodium Level 141 mmol/L (136-145)
[2024-01-22 08:32] VITALS: BP 139/75; PULSE 55; RESP 16; TEMP 36.5; O2SAT 100
[2024-01-22] MEDS: Pantoprazole Sodium 40 MG Tablet PO (08:51)
[2024-01-22] MEDS: Ensure Plus High Protein 120 ML LIQUID PO ×2 (08:51→17:15)
[2024-01-22] MEDS: Smz/Tmp Ds Tablet 0.5 TABLET PO ×2 (08:52→17:13)
[2024-01-22] MEDS: Folic Acid 1 MG Tablet PO (08:52)
--- NOTE | 2024-01-22 09:06 | WOUNDNOTE ---
skin photo: left foot
--- NOTE | 2024-01-22 09:06 | WOUNDNOTE ---
skin photo: left lateral foot
--- NOTE | 2024-01-22 09:07 | WOUNDNOTE ---
skin photo: left heel
--- NOTE | 2024-01-22 09:07 | WOUNDNOTE ---
skin photo: right heel
[2024-01-22] MEDS: Menthol/Lanolin/Calamine/Znox 113 GM Tube 1 APPLIC TOPICAL ×2 (10:38→22:07)
--- NOTE | 2024-01-22 12:30 | PN.HOSP_ITS ---
Subjective Subjective Still with some nausea, as well as loose stools. Enteric panel is negative Objective Data Objective Data Vital Signs: Vital Signs Temp Pulse Resp BP Pulse Ox O2 Del Method 97.7 F L 55 L 16 139/75 H 100 Room Air 01/22/24 08:32 01/22/24 08:32 01/22/24 08:32 01/22/24 08:32 01/22/24 08:32 01/22/24 08:32 Oxygen Delivery Method Room Air Weight: 110 lb 0.171 oz Body Mass Index (BMI) 18.8 Intake & Output: Intake and Output for Last 24 Hours 01/21/24 01/22/24 01/23/24 03:59 03:59 03:59 Intake Total 1200 / 1200 200 / 200 Balance 1200 / 1200 200 / 200 Lab / Micro Data 01/22/24 06:00 01/22/24 06:00 Labs: Laboratory Results - last 24 hr 01/21/24 17:22: WBC 11.6 H, RBC 3.26 L, Hgb 9.7 L, Hct 29.7 L, MCV 91.1, MCH 29.8, MCHC 32.7, RDW Std Deviation 45.4 H, RDW Coeff of Xin 13.6, Plt Count 299, MPV 9.6, Immature Gran % (Auto) 0.500, Neut % (Auto) 78.2 H, Lymph % (Auto) 14.0 L, [place] % (Auto) 6.7, Eos % (Auto) 0.3, Baso % (Auto) 0.3, Absolute Neuts (auto) 9.1 H, Absolute Lymphs (auto) 1.63, Nucleated RBC % 0, Sodium 138, Potassium 3.5, Chloride 107, Carbon Dioxide 24.0, Anion Gap 7, BUN 34 H, Creatinine 1.43 H , Estim Creat Clear Calc 32.97, Est GFR (MDRD) Af Amer 47 L, Est GFR (MDRD) Non- Af 39 L, BUN/Creatinine Ratio 23.8 H, Glucose 91, Hemoglobin A1c 4.8, Calcium 8.1 L, Total Bilirubin 0.70, AST 27, ALT 11 L, Alkaline Phosphatase 121 H, Total Protein 7.6, Albumin 1.7 L, Globulin 5.9 H, Albumin/Globulin Ratio 0.3 L 01/21/24 17:34: Urine Color Yellow, Urine Clarity Cloudy, Urine pH 6.0, Ur Specific [place] 1.005, Urine Protein 30 H, Urine Glucose (UA) Normal, Urine Ketones Negative, Urine Occult Blood 50 H, Urine Nitrite Negative, Urine Bilirubin Negative, Urine Urobilinogen Normal, Ur Leukocyte Esterase 500 H, Urine RBC 0 SEEN, Urine WBC >100 SEEN, Ur Squamous Epith Cells 0-5 SEEN, Urine Bacteria 2+, Urine Mucus 0 SEEN 01/22/24 06:00: WBC 9.4, RBC 2.79 L, Hgb 8.2 L, Hct 26.0 L, MCV 93.2, MCH 29.4, MCHC 31.5 L, RDW Std Deviation 46.4 H, RDW Coeff of Xin 13.7, Plt Count 249, MPV 9.9, Immature Gran % (Auto) 0.500, Neut % (Auto) 62.0, Lymph % (Auto) 29.6, [place] % (Auto) 6.6, Eos % (Auto) 0.7, Baso % (Auto) 0.6, Absolute Neuts (auto) 5.9, Absolute Lymphs (auto) 2.79, Nucleated RBC % 0, PT 23.6 H, INR 2.1, Sodium 141, Potassium 2.9 L, Chloride 111 H, Carbon Dioxide 23.0, Anion Gap 7, BUN 29 H, Creatinine 1.18 H, Estim Creat Clear Calc 36.44, Est GFR (MDRD) Af Amer 59 L, Est GFR (MDRD) Non-Af 48 L, BUN/Creatinine Ratio 24.6 H, Glucose 84, Calcium 7.3 L, Phosphorus 1.8 L, Magnesium 1.4 L, Total Bilirubin 0.50, Direct Bilirubin 0.22, AST 28, ALT 11 L, Alkaline Phosphatase 101, Total Protein 6.5, Albumin 1.5 L, Globulin 5.0 H, Albumin/Globulin Ratio 0.3 L, TSH 1.10 Micro: Microbiology 01/22/24 06:00 Stool Enteric Bacteriology - Final 01/21/24 17:34 Urine, Catheterized Urine Culture - Preliminary GNR lactose forensic science technician GNR lactose forensic science technician#2 01/21/24 17:22 Mucosa - Nose SARS-CoV-2, Influenza & RSV (PCR) - Final Radiography Diagnostic Testing: Radiology Impression Chest X-Ray 01/21/24 17:55 IMPRESSION: There are no acute findings. Electronically Signed: Roberto Pennington MD at 18:23 EDT , Rhythm Strip Rhythm Strip: Sinus Rhythm Rate: 65 Ectopy: None Physical Exam Narrative General: Alert, Oriented x3, Cooperative, No apparent distress HEENT: Atraumatic, PERRLA, EOMI, Normocephalic Oral: Moist Mucosa Neck: Supple, No JVD Lungs: Clear to auscultation, Normal air movement, No rhonchi, No wheeze, No rales Cardiovascular: Regular rate, Regular Rhythm, Normal S1, Normal S2, No murmurs Abdomen: Soft, Non Tender, Non-Distended, No Hepato-splenomegaly Extremities: No edema, Capillary Refill Less than 3 Seconds, left foot amputation Skin: No rashes, No breakdown Musculoskeletal: No Tenderness to Palpation of Joints or Extremities Neurological: No focal neurological deficits, Motor Exam 5/5 strength throughout, Sensory exam intact to light touch and pain Psych/Mental Status: Normal Affect, Appropriate Assessment & Plan Assessment/Plan (1) Urinary tract infection: PLAN: Plan 1. Chronic diarrhea as well as nausea and vomiting in the setting of a UTI/ANNIKA ? Continue with Macrobid as she does have multiple allergies ? Urine cultures pending with gram-negative rods ? No significant abdominal pain ? Continue with IV fluids ? Leukocytosis resolved ? On admission creatinine was 1.43 with baseline around 0.7 ? It does appear that her loose stools are somewhat chronic as she had been worked up in the past for possible inflammatory bowel disease, will hold her Lomotil pending completion of her infectious workup 2. COPD ? Not in exacerbation ? Continue with her home inhalers 3. GERD ? Stable ? Continue with PPI DVT: SCDs Charges/Coding Visit Charges Inpatient E&M: 85125 Subs Hosp L2
[2024-01-22] MEDS: Ondansetron 4 MG/2 ML Vial IV ×2 (13:02→22:07)
[2024-01-22] MEDS: 0.9% Saline Lock 10 ML Syringe IV (13:02)
[2024-01-22 13:30] VITALS: BP 164/75; PULSE 62; RESP 16; TEMP 36.7; O2SAT 100
[2024-01-22] MEDS: Potassium Chloride 10mEq/100mL 10 MEQ/100 ML IV.SOLN. 100 MEQ IV BOLUS (13:38)
--- NOTE | 2024-01-22 14:05 | CASEMGMT ---
CINDI BLOUNT Assessment: Face to Face with pt for initial transition planning/care coordination assessment. CINDI BLOUNT introduced self and role at [facility], pt voices understanding and consents to assessment. Pt is A&O x4 and answers all questions appropriately at this time. Pt lying in bed in no distress. Care providers, pharmacy, and demographics verified/updated. Admitting Dx: acute nausea vomiting PCP:Awa Specialists:Perry, pod; Friend, GI; Deniz [facility] neuro for brain tumor; neuro that is new to her and not assigned yet from [facility] main campus; Rika, neuro opth Preferred Pharmacy: [facility] Insurance: [facility], MMO Prescription Benefit: yes LNOK: Jackie Silverman, sister; Prabha Welch, dtr Living Arrangements: Pt lives alone in a single story home with a ramp to enter in the garage. Pt reports she was I up to 2 wks ago. Pt reports she is nonambulatory and uses her electric w/c. Pt denies concerns at home. Transportation: Pt reports she drove up til October when she had a stroke. Since then her family or [place] has been providing transportation for pt. DME:electric w/c, hospital bed HHC/SNF: Pt has had [facility], [place] and [place]. Pt has been to [facility] and [facility]. Pt states no concerns with going home at time of dc. Pt states if she can pivot, her sister can transport her home; otherwise she will need ambulance transport. Noted 6 clicks =13, message to hospitalist to see if therapy order is appropriate. Pt states she does her wound care once a week, her sister does once a week as well as her dtr and . She denies issues with this and does not feel she needs HH again for this reason. Pt states no further concerns/needs. CM to follow. Advised pt to ask CM if any further question/concerns/needs arise, voices understanding. Pt Goal: Home Plan: Home pending course of hospitalization Viviana PUENTE CM
--- NOTE | 2024-01-22 14:33 | CHAPLAIN ---
Type of Pastoral Visit _x__ Initial Visit ___ Follow-up Visit ___ On-call Visit ___ General Patient Visit ___ Spiritual Assessment ___ Family Conference ___ Bereavement ___ Rapid Response ___ Code Blue ___ Other (describe below) Pastoral Care Referral From _x__ Patient ___ Family ___ Nurse ___ Physician ___ Warp Clamper ___ Shiftman ___ Other (describe below) Sacrament/Intervention _x__ Active listening ___ Anointing ___ Sikhism ___ Bereavement ___ Communion _x__ Dang exploration ___ _x__ Life review _x__ Prayer ___ Reconciliation ___ Sacrament of Sick _x__ Supportive presence ___ Wedding ___ Other (describe below) Pastoral Comments patient has been seen before and is known as an acquaintance; pt is very talkative about her life and current living and health situations; pt admits to difficulty in her health and her finances; however pt shares how God has given her what she needs at every turn; pt is living alone and has some difficulty with her adjustments since becoming a ; pt has some family support and a jain connection; pt gives more life review and her spiritual practices over view; pt is asking for prayer and emotional support
[2024-01-22] MEDS: Potassium Chloride 10mEq/100mL 10 MEQ/100 ML IV.SOLN. 80 MEQ IV BOLUS ×3 (15:12→19:30)
[2024-01-22 20:22] VITALS: BP 123/64; PULSE 63; RESP 16; TEMP 37.1; O2SAT 98
[2024-01-23 02:53] VITALS: BP 122/53; PULSE 70; RESP 16; TEMP 37.1; O2SAT 98
[2024-01-23 06:00] VITALS: BMI 18.7
[2024-01-23 07:15] LABS: Absolute Lymphocyte Count 2.03 X10^3/uL (0.83-4.51); Absolute Neutrophil Count 6.8 X10^3/uL (2.0-7.7); Basophil# 0.09 X10^3/uL; Basophil% 0.9 % (0-1); Eosinophil# 0.36 X10^3/uL; Eosinophils% 3.6 % (0-5); Hemoglobin 8.1 g/dL (12.0-15.0); Lymphocyte # 2.03 X10^3/ul (0.83-4.51); Lymphocyte % 20.4 % (19-41); Mean Corp Hgb Conc 31.2 g/dL (32-36); Mean Corpuscular Hgb 28.7 pg (27.0-32.0); Mean Corpuscular Volume 92.2 fL (81-99); Mean Platelet Vol. 10.2 fl (6.2-12.0); Monocyte# 0.64 X10^3/uL; Monocyte% 6.4 % (0-10); NRBC Flagged by Analyzer 0 % (0-5); Neutrophil # 6.76 X10^3/uL (2.7-7.7); POSITIVE MORPHOLOGY YES; Platelet Count 243 K/mm3 (150-450); RBC Distribution Width CV 13.5 % (11.6-14.6); Red Blood Count 2.82 M/mm3 (4.2-5.4)
[2024-01-23 07:18] LABS: Differential Indicated SCAN CRITERIA MET
[2024-01-23 07:31] VITALS: BP 145/65; PULSE 64; RESP 16; TEMP 37.2; O2SAT 97
[2024-01-23] MEDS: Folic Acid 1 MG Tablet PO (07:40)
[2024-01-23] MEDS: Smz/Tmp Ds Tablet 0.5 TABLET PO ×2 (07:40→17:06)
[2024-01-23 08:07] LABS: Anion Gap 8 (5-15); BUN 21 mg/dL (7-18); BUN/Creat Ratio 19.3 RATIO (10-20); Calcium,Total 7.5 mg/dL (8.5-10.1); Chloride 110 mmol/L (98-107); Creatinine, Serum 1.09 mg/dL (0.55-1.02); EST Glomerular Filtration Rate 53 mL/min (>60); Est Glom Filt Rate - Afr Amer 64 mL/min (>60); Glucose 71 mg/dL (74-106); Potassium 3.6 mmol/L (3.5-5.1); Sodium Level 140 mmol/L (136-145)
[2024-01-23 08:55] LABS: Differential Comment SCANNED; Reactive Lymphocyte 1+
[2024-01-23] MEDS: Menthol/Lanolin/Calamine/Znox 113 GM Tube 1 APPLIC TOPICAL ×2 (09:19→21:15)
[2024-01-23] MEDS: Ensure Plus High Protein 120 ML LIQUID PO ×3 (09:19→17:06)
[2024-01-23] MEDS: Pantoprazole Sodium 40 MG Tablet PO (09:20)
--- NOTE | 2024-01-23 09:28 | PN.HOSP_ITS ---
Subjective Subjective Seems to be doing a little bit better today. No issues overnight Objective Data Objective Data Vital Signs: Vital Signs Temp Pulse Resp BP Pulse Ox O2 Del Method 99.0 F 64 16 145/65 H 97 Room Air 01/23/24 07:31 01/23/24 07:31 01/23/24 07:31 01/23/24 07:31 01/23/24 07:31 01/23/24 07:31 Oxygen Delivery Method Room Air Weight: 109 lb 9.116 oz Body Mass Index (BMI) 18.7 Intake & Output: Intake and Output for Last 24 Hours 01/22/24 01/23/24 01/24/24 03:59 03:59 03:59 Intake Total 1200 / 1200 1800 / 1800 100 / 100 Balance 1200 / 1200 1800 / 1800 100 / 100 Medical Nutrition Assessment Dietitian: Malnutrition Criteria Met Start: 01/22/24 14:19 Freq: Status: Active Protocol: Document 01/22/24 14:20 LO (Rec: 01/22/24 14:20 LO [id number]) Nutrition Malnutrition Evidence of Malnutrition Exists Yes Malnutrition (severe): Chronic Evidenced By Weight Loss (Severe),Physical Changes (Severe) Intake Problem Inadequate Oral Intake Etiology related to suboptimal appetite , nausea, vomiting, diarrhea Signs/Symptoms as evidenced by pt report of decreased PO intakes x 2 weeks Status Active Problem Clinical Problem Chronic Disease or Condition Related Malnutrition Etiology severe related to unknown etiology Signs/Symptoms as evidenced by 27.6lbs (20%) weight loss in 9 months and severe fat/muscle loss to temporal and orbital regions. Status Active Problem 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 Dietitian 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s/Changes Continue Regular diet to optimize oral intakes RD will change 120mL EPHP TID to 4x daily to provide supplemental energy. Lab / Micro Data 01/23/24 06:32 01/23/24 06:32 Labs: Laboratory Results - last 24 hr 01/23/24 06:32: WBC 10.0, RBC 2.82 L, Hgb 8.1 L, Hct 26.0 L, MCV 92.2, MCH 28.7, MCHC 31.2 L, RDW Std Deviation 46.0 H, RDW Coeff of Xin 13.5, Plt Count 243, MPV 10.2, Immature Gran % (Auto) 0.700, Neut % (Auto) 68.0, Lymph % (Auto) 20.4, [place] % (Auto) 6.4, Eos % (Auto) 3.6, Baso % (Auto) 0.9, Absolute Neuts (auto) 6.8, Absolute Lymphs (auto) 2.03, Nucleated RBC % 0, Differential Comment SCANNED, Reactive Lymphocytes 1+, Sodium 140, Potassium 3.6, Chloride 110 H, Carbon Dioxide 22.0, Anion Gap 8, BUN 21 H, Creatinine 1.09 H, Estim Creat Clear Calc 39.30, Est GFR (MDRD) Af Amer 64, Est GFR (MDRD) Non-Af 53 L, BUN/Creatinine Ratio 19.3, Glucose 71 L, Calcium 7.5 L Micro: Microbiology 01/21/24 17:34 Urine, Catheterized Urine Culture - Final Escherichia coli Klebsiella pneumoniae sp pneum 01/22/24 06:00 Stool Enteric Bacteriology - Final 01/21/24 17:22 Mucosa - Nose SARS-CoV-2, Influenza & RSV (PCR) - Final Rhythm Strip Rhythm Strip: Sinus Rhythm Rate: 65 Ectopy: None Physical Exam Narrative General: Alert, Oriented x3, Cooperative, No apparent distress HEENT: Atraumatic, PERRLA, EOMI, Normocephalic Oral: Moist Mucosa Neck: Supple, No JVD Lungs: Clear to auscultation, Normal air movement, No rhonchi, No wheeze, No rales Cardiovascular: Regular rate, Regular Rhythm, Normal S1, Normal S2, No murmurs Abdomen: Soft, Non Tender, Non-Distended, No Hepato-splenomegaly Extremities: No edema, Capillary Refill Less than 3 Seconds, left foot amputation Skin: No rashes, No breakdown Musculoskeletal: No Tenderness to Palpation of Joints or Extremities Neurological: No focal neurological deficits, Motor Exam 5/5 strength throughout, Sensory exam intact to light touch and pain Psych/Mental Status: Normal Affect, Appropriate Assessment & Plan Assessment/Plan (1) Urinary tract infection: PLAN: Plan 1. Chronic diarrhea as well as acute nausea and vomiting in the setting of a Klebsiella and E. coli UTI/ANNIKA ? Continue with Bactrim as she has allergies to other medications and that the Klebsiella is intermediate SONG to Macrobid ? No significant abdominal pain ? Continue with IV fluids ? Leukocytosis resolved ? On admission creatinine was 1.43 with baseline around 0.7 2. COPD ? Not in exacerbation ? Continue with her home inhalers 3. GERD ? Stable ? Continue with PPI DVT: SCDs Charges/Coding Visit Charges Inpatient E&M: 78172 Subs Hosp L2
[2024-01-23 14:54] VITALS: BP 151/67; PULSE 61; RESP 16; TEMP 37.1; O2SAT 99
--- NOTE | 2024-01-23 15:01 | CHAPLAIN ---
Type of Pastoral Visit ___ Initial Visit _x__ Follow-up Visit ___ On-call Visit ___ General Patient Visit ___ Spiritual Assessment ___ Family Conference ___ Bereavement ___ Rapid Response ___ Code Blue ___ Other (describe below) Pastoral Care Referral From _x__ Patient ___ Family ___ Nurse ___ Physician ___ Incident Analyst ___ Aircraft Air Conditioning Mechanic ___ Other (describe below) Sacrament/Intervention _x__ Active listening ___ Anointing ___ Scientologist ___ Bereavement ___ Communion ___ Dang exploration ___ _x__ Life review _x__ Prayer ___ Reconciliation ___ Sacrament of Sick _x__ Supportive presence ___ Wedding ___ Other (describe below) Pastoral Comments
[2024-01-23] MEDS: Ondansetron 4 MG/2 ML Vial IV (15:53)
[2024-01-23] MEDS: 0.9% Saline Lock 10 ML Syringe IV (15:53)
--- NOTE | 2024-01-23 16:53 | CASEMGMT ---
Social Work Power of Hand Glove Cleaner for healthcare is scanned into [employer], with the living will provision initialed. Pt's healthcare POA is Jackie Silverman. MICHELLE Vee
[2024-01-23 20:55] VITALS: BP 161/72; PULSE 70; RESP 18; TEMP 36.7; O2SAT 98
[2024-01-24] VITALS (7 sets, daily range): BP systolic 116–150; BP diastolic 56–72; PULSE 57–74; RESP 16–20; TEMP 36.7–37.2; O2SAT 94–99; BMI 18.1
[2024-01-24] MEDS: Nystatin Powder 15gm Bottle 1 APPLIC TOPICAL ×3 (00:35→22:43)
[2024-01-24] MEDS: 0.9% Saline Lock 10 ML Syringe IV ×5 (06:04→22:42)
[2024-01-24] MEDS: Ondansetron 4 MG/2 ML Vial IV ×2 (06:04→15:43)
[2024-01-24 07:40] LABS: Absolute Lymphocyte Count 2.19 X10^3/uL (0.83-4.51); Basophil# 0.09 X10^3/uL; Basophil% 1.1 % (0-1); Eosinophil# 0.38 X10^3/uL; Eosinophils% 4.6 % (0-5); Hematocrit 25.5 % (37-47); Lymphocyte # 2.19 X10^3/ul (0.83-4.51); Lymphocyte % 26.4 % (19-41); Mean Corp Hgb Conc 31.4 g/dL (32-36); Mean Corpuscular Hgb 28.9 pg (27.0-32.0); Mean Corpuscular Volume 92.1 fL (81-99); Monocyte# 0.57 X10^3/uL; Monocyte% 6.9 % (0-10); NRBC Flagged by Analyzer 0 % (0-5); Platelet Count 216 K/mm3 (150-450); RBC Distribution Width CV 13.4 % (11.6-14.6); RBC Distribution Width SD 45.3 fl (35.1-43.9); Red Blood Count 2.77 M/mm3 (4.2-5.4); White Blood Count 8.3 K/mm3 (4.4-11.0)
[2024-01-24 08:05] LABS: Anion Gap 6 (5-15); BUN 16 mg/dL (7-18); Calcium,Total 7.7 mg/dL (8.5-10.1); Chloride 108 mmol/L (98-107); Creatinine, Serum 1.07 mg/dL (0.55-1.02); EST Glomerular Filtration Rate 54 mL/min (>60); Est Glom Filt Rate - Afr Amer 66 mL/min (>60); Estimated Creatinine Clearance 38.82 ml/min; Glucose 73 mg/dL (74-106); Potassium 3.2 mmol/L (3.5-5.1); Sodium Level 137 mmol/L (136-145)
[2024-01-24] MEDS: Folic Acid 1 MG Tablet PO (08:31)
[2024-01-24] MEDS: Smz/Tmp Ds Tablet 0.5 TABLET PO ×2 (08:31→18:30)
--- NOTE | 2024-01-24 09:21 | PCM.PN.HOSP ---
Subjective Subjective Feels more nauseated today than she did yesterday, otherwise no issues overnight Objective Data Objective Data Vital Signs: Vital Signs Temp Pulse Resp BP Pulse Ox O2 Del Method 98.3 F 64 16 146/66 H 98 Room Air 01/24/24 08:26 01/24/24 08:26 01/24/24 08:26 01/24/24 08:26 01/24/24 08:26 01/24/24 08:26 Oxygen Delivery Method Room Air Weight: 106 lb 4.205 oz Body Mass Index (BMI) 18.1 Intake & Output: Intake and Output for Last 24 Hours 01/23/24 01/24/24 01/25/24 03:59 03:59 03:59 Intake Total 1800 / 1800 340 / 340 120 / 120 Output Total 700 / 700 Balance 1800 / 1800 340 / 340 -580 / -580 Medical Nutrition Assessment Dietitian: Malnutrition Criteria Met Start: 01/22/24 14:19 Freq: Status: Active Protocol: Document 01/22/24 14:20 LO (Rec: 01/22/24 14:20 LO [id number]) Nutrition Malnutrition Evidence of Malnutrition Exists Yes Malnutrition (severe): Chronic Evidenced By Weight Loss (Severe),Physical Changes (Severe) Intake Problem Inadequate Oral Intake Etiology related to suboptimal appetite , nausea, vomiting, diarrhea Signs/Symptoms as evidenced by pt report of decreased PO intakes x 2 weeks Status Active Problem Clinical Problem Chronic Disease or Condition Related Malnutrition Etiology severe related to unknown etiology Signs/Symptoms as evidenced by 27.6lbs (20%) weight loss in 9 months and severe fat/muscle loss to temporal and orbital regions. Status Active Problem 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 Dietitian 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s/Changes Continue Regular diet to optimize oral intakes RD will change 120mL EPHP TID to 4x daily to provide supplemental energy. Lab / Micro Data 01/24/24 05:37 01/24/24 05:37 Labs: Laboratory Results - last 24 hr 01/24/24 05:37: WBC 8.3, RBC 2.77 L, Hgb 8.0 L, Hct 25.5 L, MCV 92.1, MCH 28.9, MCHC 31.4 L, RDW Std Deviation 45.3 H, RDW Coeff of Xin 13.4, Plt Count 216, MPV 10.0, Immature Gran % (Auto) 1.000 H, Neut % (Auto) 60.0, Lymph % (Auto) 26.4, [place] % (Auto) 6.9, Eos % (Auto) 4.6, Baso % (Auto) 1.1 H, Absolute Neuts (auto) 5.0, Absolute Lymphs (auto) 2.19, Nucleated RBC % 0, Sodium 137, Potassium 3.2 L, Chloride 108 H, Carbon Dioxide 23.0, Anion Gap 6, BUN 16, Creatinine 1.07 H, Estim Creat Clear Calc 38.82, Est GFR (MDRD) Af Amer 66, Est GFR (MDRD) Non-Af 54 L, BUN/Creatinine Ratio 15.0, Glucose 73 L, Calcium 7.7 L Micro: Microbiology 01/21/24 17:34 Urine, Catheterized Urine Culture - Final Escherichia coli Klebsiella pneumoniae sp pneum 01/22/24 06:00 Stool Enteric Bacteriology - Final 01/21/24 17:22 Mucosa - Nose SARS-CoV-2, Influenza & RSV (PCR) - Final Rhythm Strip Rhythm Strip: Sinus Rhythm Rate: 65 Ectopy: None Physical Exam Narrative General: Alert, Oriented x3, Cooperative, No apparent distress, cachectic HEENT: Atraumatic, PERRLA, EOMI, Normocephalic Oral: Moist Mucosa Neck: Supple, No JVD Lungs: Clear to auscultation, Normal air movement, No rhonchi, No wheeze, No rales Cardiovascular: Regular rate, Regular Rhythm, Normal S1, Normal S2, No murmurs Abdomen: Soft, Non Tender, Non-Distended, No Hepato-splenomegaly Extremities: No edema, Capillary Refill Less than 3 Seconds, left foot amputation Skin: No rashes, No breakdown Musculoskeletal: No Tenderness to Palpation of Joints or Extremities Neurological: No focal neurological deficits, Motor Exam 5/5 strength throughout, Sensory exam intact to light touch and pain Psych/Mental Status: Flat Assessment & Plan Assessment/Plan (1) Urinary tract infection: PLAN: Plan 1. Chronic diarrhea as well as acute nausea and vomiting in the setting of a Klebsiella and E. coli UTI/ANNIKA ? Continue with Bactrim as she has allergies to other medications and that the Klebsiella is intermediate SONG to Macrobid ? No significant abdominal pain ? 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 Melissa for guidance on this issue ? Continue with IV fluids ? Leukocytosis resolved ? On admission creatinine was 1.43 with baseline around 0.7, will continue to monitor make adjustments as necessary. Creatinine is improving 2. COPD ? Not in exacerbation ? Continue with her home inhalers 3. GERD ? Stable ? Continue with PPI DVT: SCDs Charges/Coding Visit Charges Inpatient E&M: 79578 Subs Hosp L2
[2024-01-24] MEDS: Menthol/Lanolin/Calamine/Znox 113 GM Tube 1 APPLIC TOPICAL ×2 (10:13→22:43)
[2024-01-24] MEDS: Pantoprazole Sodium 40 MG Tablet PO (10:15)
[2024-01-24] MEDS: Magnesium Sulfate 2 GM in Dextrose 5%-Water (100mL Bag) 100 ML IV (10:24)
[2024-01-24] MEDS: Potassium Phosphate 30 MM in 0.9% Normal Saline (250mL Bag) 250 ML 42 MM IV (10:24)
[2024-01-24 15:08] LABS: Giardia Lamblia, Stool EIA Negative (Negative)
[2024-01-24] MEDS: Ensure Clear 120 ML Liquid PO ×2 (18:26→22:42)
[2024-01-25] MEDS: Ondansetron 4 MG/2 ML Vial IV ×3 (05:33→23:54)
[2024-01-25] MEDS: 0.9% Saline Lock 10 ML Syringe IV ×4 (05:33→23:54)
[2024-01-25 05:41] VITALS: BP 123/60; PULSE 55; RESP 20; TEMP 36.7; O2SAT 99
[2024-01-25 06:00] VITALS: BMI 18.4
[2024-01-25 08:08] LABS: Absolute Lymphocyte Count 2.71 X10^3/uL (0.83-4.51); Absolute Neutrophil Count 4.8 X10^3/uL (2.0-7.7); Basophil# 0.09 X10^3/uL; Eosinophil# 0.49 X10^3/uL; Eosinophils% 5.7 % (0-5); Hematocrit 25.2 % (37-47); Hemoglobin 7.9 g/dL (12.0-15.0); Lymphocyte # 2.71 X10^3/ul (0.83-4.51); Lymphocyte % 31.6 % (19-41); Mean Corp Hgb Conc 31.3 g/dL (32-36); Mean Corpuscular Hgb 28.7 pg (27.0-32.0); Mean Corpuscular Volume 91.6 fL (81-99); Mean Platelet Vol. 10.4 fl (6.2-12.0); Monocyte# 0.47 X10^3/uL; Monocyte% 5.5 % (0-10); NRBC Flagged by Analyzer 0 % (0-5); Neutrophil # 4.75 X10^3/uL (2.7-7.7); Neutrophil % 55.4 % (47-70); POSITIVE MORPHOLOGY YES; Platelet Count 235 K/mm3 (150-450); RBC Distribution Width CV 13.7 % (11.6-14.6); RBC Distribution Width SD 45.3 fl (35.1-43.9); Red Blood Count 2.75 M/mm3 (4.2-5.4); White Blood Count 8.6 K/mm3 (4.4-11.0)
[2024-01-25 08:13] LABS: Differential Indicated SCAN CRITERIA MET
[2024-01-25] MEDS: Folic Acid 1 MG Tablet PO (08:16)
[2024-01-25] MEDS: Smz/Tmp Ds Tablet 0.5 TABLET PO (08:16)
[2024-01-25] MEDS: Pantoprazole Sodium 40 MG Tablet PO (08:16)
[2024-01-25] MEDS: Nystatin Powder 15gm Bottle 1 APPLIC TOPICAL ×2 (08:17→23:27)
[2024-01-25] MEDS: Menthol/Lanolin/Calamine/Znox 113 GM Tube 1 APPLIC TOPICAL ×2 (08:17→23:27)
[2024-01-25 08:31] LABS: Anion Gap 6 (5-15); BUN 12 mg/dL (7-18); Calcium,Total 7.1 mg/dL (8.5-10.1); Chloride 110 mmol/L (98-107); Creatinine, Serum 1.09 mg/dL (0.55-1.02); EST Glomerular Filtration Rate 53 mL/min (>60); Est Glom Filt Rate - Afr Amer 64 mL/min (>60); Estimated Creatinine Clearance 38.82 ml/min; Glucose 75 mg/dL (74-106); Magnesium 1.7 mg/dL (1.6-2.6); Phosphorus 3.6 mg/dL (2.5-4.9); Potassium 3.6 mmol/L (3.5-5.1); Sodium Level 139 mmol/L (136-145)
[2024-01-25 08:41] LABS: Differential Comment SCANNED
[2024-01-25 08:42] VITALS: BP 141/59; PULSE 62; RESP 16; TEMP 36.7; O2SAT 99
[2024-01-25] MEDS: Vancomycin 125 MG/5 ML Susp PO.SYRINGE PO ×2 (10:39→23:43)
--- NOTE | 2024-01-25 10:39 | PCM.PN.HOSP ---
Subjective Subjective Still with nausea and struggling to eat Objective Data Objective Data Vital Signs: Vital Signs Temp Pulse Resp BP Pulse Ox O2 Del Method O2 Flow Rate 98.1 F 62 16 141/59 H 99 Room Air 3 01/25/24 08:42 01/25/24 08:42 01/25/24 08:42 01/25/24 08:42 01/25/24 08:42 01/25/24 08:42 01/24/24 20:39 Oxygen Flow Rate (L/min) 3 Oxygen Delivery Method Room Air Weight: 108 lb 3.951 oz Body Mass Index (BMI) 18.4 Intake & Output: Intake and Output for Last 24 Hours 01/24/24 01/25/24 01/26/24 03:59 03:59 03:59 Intake Total 340 / 340 1434 / 1434 Output Total 900 / 900 150 / 150 Balance 340 / 340 534 / 534 -150 / -150 Medical Nutrition Assessment Dietitian: Malnutrition Criteria Met Start: 01/22/24 14:19 Freq: Status: Active Protocol: Document 01/22/24 14:20 LO (Rec: 01/22/24 14:20 LO [id number]) Nutrition Malnutrition Evidence of Malnutrition Exists Yes Malnutrition (severe): Chronic Evidenced By Weight Loss (Severe),Physical Changes (Severe) Intake Problem Inadequate Oral Intake Etiology related to suboptimal appetite , nausea, vomiting, diarrhea Signs/Symptoms as evidenced by pt report of decreased PO intakes x 2 weeks Status Active Problem Clinical Problem Chronic Disease or Condition Related Malnutrition Etiology severe related to unknown etiology Signs/Symptoms as evidenced by 27.6lbs (20%) weight loss in 9 months and severe fat/muscle loss to temporal and orbital regions. Status Active Problem 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 Dietitian 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s/Changes Continue Regular diet to optimize oral intakes RD will change 120mL EPHP TID to 4x daily to provide supplemental energy. Lab / Micro Data 01/25/24 06:36 01/25/24 06:36 Labs: Laboratory Results - last 24 hr 01/22/24 10:55: Stl Giardia Antigen Negative 01/25/24 06:36: WBC 8.6, RBC 2.75 L, Hgb 7.9 L, Hct 25.2 L, MCV 91.6, MCH 28.7, MCHC 31.3 L, RDW Std Deviation 45.3 H, RDW Coeff of Xin 13.7, Plt Count 235, MPV 10.4, Immature Gran % (Auto) 0.800, Neut % (Auto) 55.4, Lymph % (Auto) 31.6, [place] % (Auto) 5.5, Eos % (Auto) 5.7 H, Baso % (Auto) 1.0, Absolute Neuts (auto) 4.8, Absolute Lymphs (auto) 2.71, Nucleated RBC % 0, Differential Comment SCANNED, Sodium 139, Potassium 3.6, Chloride 110 H, Carbon Dioxide 23.0, Anion Gap 6, BUN 12, Creatinine 1.09 H, Estim Creat Clear Calc 38.82, Est GFR (MDRD) Af Amer 64, Est GFR (MDRD) Non-Af 53 L, BUN/Creatinine Ratio 11.0, Glucose 75, Calcium 7.1 L, Phosphorus 3.6, Magnesium 1.7 Micro: Microbiology 01/21/24 17:34 Urine, Catheterized Urine Culture - Final Escherichia coli Klebsiella pneumoniae sp pneum 01/22/24 06:00 Stool Enteric Bacteriology - Final 01/21/24 17:22 Mucosa - Nose SARS-CoV-2, Influenza & RSV (PCR) - Final Rhythm Strip Rhythm Strip: Sinus Rhythm Rate: 65 Ectopy: None Physical Exam Narrative General: Alert, Oriented x3, Cooperative, No apparent distress, cachectic HEENT: Atraumatic, PERRLA, EOMI, Normocephalic Oral: Moist Mucosa Neck: Supple, No JVD Lungs: Diminished, Normal air movement, No rhonchi, No wheeze, No rales Cardiovascular: Regular rate, Regular Rhythm, Normal S1, Normal S2, No murmurs Abdomen: Soft, Non Tender, Non-Distended, No Hepato-splenomegaly Extremities: No edema, Capillary Refill Less than 3 Seconds, left foot amputation Skin: No rashes, No breakdown Musculoskeletal: No Tenderness to Palpation of Joints or Extremities Neurological: No focal neurological deficits, Motor Exam 5/5 strength throughout, Sensory exam intact to light touch and pain Psych/Mental Status: Normal affect Assessment & Plan Assessment/Plan (1) Urinary tract infection: PLAN: Plan 1. Chronic diarrhea as well as acute nausea and vomiting in the setting of a Klebsiella and E. coli UTI/ANNIKA ? Completed a course of antibiotics for her UTI ? No significant abdominal pain ? Will place her on vancomycin p.o. 125 mg twice daily as prophylaxis since she is a C. difficile carrier ? Given her continued intractable nausea will consult gastroenterology ? Continue with IV fluids ? Leukocytosis resolved ? On admission creatinine was 1.43 with baseline around 0.7, will continue to monitor make adjustments as necessary. Creatinine is improving 2. COPD ? Not in exacerbation ? Continue with her home inhalers 3. GERD ? Stable ? Continue with PPI DVT: SCDs Charges/Coding Visit Charges Inpatient E&M: 62712 Subs Hosp L2
[2024-01-25 11:26] VITALS: BP 164/77; PULSE 73; RESP 16; TEMP 36.9; O2SAT 98
[2024-01-25 11:38] LABS: Bedside Glucose 89 mg/dL (74-106)
[2024-01-25 14:56] VITALS: BP 148/68; PULSE 61; RESP 16; TEMP 37.1; O2SAT 100
[2024-01-25 23:00] VITALS: BP 119/54; PULSE 63; RESP 18; TEMP 36.9; O2SAT 99
[2024-01-26 04:47] VITALS: BP 129/66; PULSE 65; RESP 18; TEMP 37; O2SAT 99
[2024-01-26 05:12] VITALS: BMI 18.2
[2024-01-26 06:58] VITALS: O2SAT 93
[2024-01-26 07:22] LABS: Absolute Lymphocyte Count 3.01 X10^3/uL (0.83-4.51); Absolute Neutrophil Count 5.5 X10^3/uL (2.0-7.7); Basophil# 0.11 X10^3/uL; Basophil% 1.2 % (0-1); Eosinophil# 0.36 X10^3/uL; Eosinophils% 3.8 % (0-5); Hematocrit 25.2 % (37-47); Hemoglobin 7.8 g/dL (12.0-15.0); Lymphocyte # 3.01 X10^3/ul (0.83-4.51); Lymphocyte % 31.7 % (19-41); Mean Corpuscular Hgb 28.4 pg (27.0-32.0); Mean Corpuscular Volume 91.6 fL (81-99); Mean Platelet Vol. 9.8 fl (6.2-12.0); Monocyte# 0.42 X10^3/uL; Monocyte% 4.4 % (0-10); NRBC Flagged by Analyzer 0 % (0-5); Neutrophil # 5.51 X10^3/uL (2.7-7.7); POSITIVE MORPHOLOGY YES; Platelet Count 261 K/mm3 (150-450); RBC Distribution Width CV 13.4 % (11.6-14.6); RBC Distribution Width SD 45.1 fl (35.1-43.9); Red Blood Count 2.75 M/mm3 (4.2-5.4); White Blood Count 9.5 K/mm3 (4.4-11.0)
[2024-01-26 07:30] LABS: Differential Indicated SCAN CRITERIA MET
[2024-01-26 07:39] LABS: Anion Gap 5 (5-15); BUN 11 mg/dL (7-18); Calcium,Total 7.4 mg/dL (8.5-10.1); Chloride 108 mmol/L (98-107); EST Glomerular Filtration Rate 53 mL/min (>60); Est Glom Filt Rate - Afr Amer 64 mL/min (>60); Glucose 74 mg/dL (74-106); Potassium 3.5 mmol/L (3.5-5.1); Sodium Level 137 mmol/L (136-145)
[2024-01-26] MEDS: Ondansetron 4 MG/2 ML Vial IV ×2 (08:34→16:51)
[2024-01-26] MEDS: 0.9% Saline Lock 10 ML Syringe IV ×2 (08:35→16:51)
[2024-01-26 08:47] VITALS: BP 142/62; PULSE 70; RESP 16; TEMP 36.6; O2SAT 100
[2024-01-26] MEDS: Nystatin Powder 15gm Bottle 1 APPLIC TOPICAL ×2 (09:33→22:27)
[2024-01-26] MEDS: Menthol/Lanolin/Calamine/Znox 113 GM Tube 1 APPLIC TOPICAL ×2 (09:33→22:26)
[2024-01-26] MEDS: Folic Acid 1 MG Tablet PO (10:11)
[2024-01-26] MEDS: Pantoprazole Sodium 40 MG Tablet PO (10:11)
[2024-01-26] MEDS: Vancomycin 125 MG/5 ML Susp PO.SYRINGE PO ×2 (10:11→22:27)
--- NOTE | 2024-01-26 10:56 | PCM.PN.HOSP ---
Subjective Subjective Continues to have nausea, her Bactrim completed its course awaiting evaluation by gastroenterology Objective Data Objective Data Vital Signs: Vital Signs Temp Pulse Resp BP Pulse Ox O2 Del Method O2 Flow Rate 97.9 F 70 16 142/62 H 100 Room Air 3 01/26/24 08:47 01/26/24 08:47 01/26/24 08:47 01/26/24 08:47 01/26/24 08:47 01/26/24 08:47 01/24/24 20:39 Oxygen Flow Rate (L/min) 3 Oxygen Delivery Method Room Air Weight: 106 lb 14.787 oz Body Mass Index (BMI) 18.2 Intake & Output: Intake and Output for Last 24 Hours 01/25/24 01/26/24 01/27/24 03:59 03:59 03:59 Intake Total 1434 / 1434 150 / 150 Output Total 900 / 900 850 / 850 200 / 200 Balance 534 / 534 -700 / -700 -200 / -200 Medical Nutrition Assessment Dietitian: Malnutrition Criteria Met Start: 01/22/24 14:19 Freq: Status: Active Protocol: Document 01/22/24 14:20 LO (Rec: 01/22/24 14:20 LO [id number]) Nutrition Malnutrition Evidence of Malnutrition Exists Yes Malnutrition (severe): Chronic Evidenced By Weight Loss (Severe),Physical Changes (Severe) Intake Problem Inadequate Oral Intake Etiology related to suboptimal appetite , nausea, vomiting, diarrhea Signs/Symptoms as evidenced by pt report of decreased PO intakes x 2 weeks Status Active Problem Clinical Problem Chronic Disease or Condition Related Malnutrition Etiology severe related to unknown etiology Signs/Symptoms as evidenced by 27.6lbs (20%) weight loss in 9 months and severe fat/muscle loss to temporal and orbital regions. Status Active Problem 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 Dietitian 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s/Changes Continue Regular diet to optimize oral intakes RD will change 120mL EPHP TID to 4x daily to provide supplemental energy. Lab / Micro Data 01/26/24 06:43 01/26/24 06:43 Labs: Laboratory Results - last 24 hr 01/25/24 11:10: POC Glucose 89 01/26/24 06:43: WBC 9.5, RBC 2.75 L, Hgb 7.8 L, Hct 25.2 L, MCV 91.6, MCH 28.4, MCHC 31.0 L, RDW Std Deviation 45.1 H, RDW Coeff of Xin 13.4, Plt Count 261, MPV 9.8, Immature Gran % (Auto) 0.900, Neut % (Auto) 58.0, Lymph % (Auto) 31.7, [place] % (Auto) 4.4, Eos % (Auto) 3.8, Baso % (Auto) 1.2 H, Absolute Neuts (auto) 5.5, Absolute Lymphs (auto) 3.01, Nucleated RBC % 0, Sodium 137, Potassium 3.5, Chloride 108 H, Carbon Dioxide 24.0, Anion Gap 5, BUN 11, Creatinine 1.10 H, Estim Creat Clear Calc 38.00, Est GFR (MDRD) Af Amer 64, Est GFR (MDRD) Non-Af 53 L, BUN/Creatinine Ratio 10.0, Glucose 74, Calcium 7.4 L Micro: Microbiology 01/21/24 17:34 Urine, Catheterized Urine Culture - Final Escherichia coli Klebsiella pneumoniae sp pneum 01/22/24 06:00 Stool Enteric Bacteriology - Final 01/21/24 17:22 Mucosa - Nose SARS-CoV-2, Influenza & RSV (PCR) - Final Rhythm Strip Rhythm Strip: Sinus Rhythm Rate: 65 Ectopy: None Physical Exam Narrative General: Alert, Oriented x3, Cooperative, No apparent distress, cachectic HEENT: Atraumatic, PERRLA, EOMI, Normocephalic Oral: Moist Mucosa Neck: Supple, No JVD Lungs: Diminished, Normal air movement, No rhonchi, No wheeze, No rales Cardiovascular: Regular rate, Regular Rhythm, Normal S1, Normal S2, No murmurs Abdomen: Soft, Non Tender, Non-Distended, No Hepato-splenomegaly Extremities: No edema, Capillary Refill Less than 3 Seconds, left foot amputation Skin: No rashes, No breakdown Musculoskeletal: No Tenderness to Palpation of Joints or Extremities Neurological: No focal neurological deficits, Motor Exam 5/5 strength throughout, Sensory exam intact to light touch and pain Psych/Mental Status: Normal affect Assessment & Plan Assessment/Plan (1) Urinary tract infection: PLAN: Plan 1. Chronic diarrhea as well as acute nausea and vomiting in the setting of a Klebsiella and E. coli UTI/ANNIKA ? Completed a course of antibiotics for her UTI ? No significant abdominal pain ? Will place her on vancomycin p.o. 125 mg twice daily as prophylaxis since she is a C. difficile carrier ? Given her continued intractable nausea gastroenterology was consulted, waiting eval ? Continue with IV fluids ? Leukocytosis resolved ? On admission creatinine was 1.43 with baseline around 0.7, will continue to monitor make adjustments as necessary. Creatinine is improving 2. COPD ? Not in exacerbation ? Continue with her home inhalers 3. GERD ? Stable ? Continue with PPI 4. Chronic normocytic normochromic anemia ? Will obtain iron studies and continue to monitor her hemoglobin DVT: SCDs Charges/Coding Visit Charges Inpatient E&M: 62788 Subs Hosp L2
[2024-01-26 11:19] LABS: Ferritin 719 ng/mL (8-252); Iron 32 ug/dL (50-170); Iron Binding Capacity,Total 72 ug/dL (250-450); PERCENT IRON SATURATION 44.4 % (15.0-55.0)
[2024-01-26 11:32] VITALS: BP 141/64; PULSE 67; RESP 16; TEMP 36.8; O2SAT 98
[2024-01-26] MEDS: Phytonadione (Vit K1) 5 MG TABLET PO (12:15)
[2024-01-26] MEDS: Ensure Clear 120 ML Liquid PO ×2 (13:14→22:28)
--- NOTE | 2024-01-26 13:55 | CHAPLAIN ---
Type of Pastoral Visit ___ Initial Visit _x__ Follow-up Visit ___ On-call Visit ___ General Patient Visit ___ Spiritual Assessment ___ Family Conference ___ Bereavement ___ Rapid Response ___ Code Blue ___ Other (describe below) Pastoral Care Referral From _x__ Patient ___ Family ___ Nurse ___ Physician ___ Hose Mender ___ Commercial Assistant ___ Other (describe below) Sacrament/Intervention _x__ Active listening ___ Anointing ___ Roman Catholic ___ Bereavement ___ Communion _x__ Dang exploration ___ ___ Life review _x__ Prayer ___ Reconciliation ___ Sacrament of Sick _x__ Supportive presence ___ Wedding ___ Other (describe below) Pastoral Comments patient indicates that her health is in decline and that she has requested a visit from Dr. Melissa, asking this special education coordinator to pray that he will be able to come see me here; pt considering her options about facility and different opinions on her health; pt speaks of her dang, her doubts, and her feelings which include short temper toward others; pt states she wants to be better in control and accepting of her situation and asks for more prayer; lots of talk about dang and hope; prayer given
[2024-01-26 15:31] VITALS: BP 131/68; PULSE 71; RESP 16; TEMP 37.1; O2SAT 97
[2024-01-26 22:29] VITALS: BP 138/64; PULSE 67; RESP 16; TEMP 36.9; O2SAT 99
[2024-01-26] MEDS: proCHLORPERazine 10 MG/2 ML Vial 5 MG IV (23:06)
[2024-01-27 05:11] VITALS: BP 97/51; PULSE 64; RESP 16; TEMP 36.6; O2SAT 99
[2024-01-27 05:41] LABS: Absolute Lymphocyte Count 4.06 X10^3/uL (0.83-4.51); Absolute Neutrophil Count 6.2 X10^3/uL (2.0-7.7); Basophil# 0.11 X10^3/uL; Eosinophil# 0.41 X10^3/uL; Eosinophils% 3.6 % (0-5); Hematocrit 25.2 % (37-47); Hemoglobin 7.8 g/dL (12.0-15.0); Lymphocyte # 4.06 X10^3/ul (0.83-4.51); Lymphocyte % 35.6 % (19-41); Mean Corpuscular Hgb 28.3 pg (27.0-32.0); Mean Corpuscular Volume 91.3 fL (81-99); Mean Platelet Vol. 9.5 fl (6.2-12.0); Monocyte# 0.55 X10^3/uL; Monocyte% 4.8 % (0-10); NRBC Flagged by Analyzer 0 % (0-5); Neutrophil # 6.18 X10^3/uL (2.7-7.7); POSITIVE MORPHOLOGY YES; Platelet Count 264 K/mm3 (150-450); RBC Distribution Width CV 13.2 % (11.6-14.6); RBC Distribution Width SD 44.2 fl (35.1-43.9); Red Blood Count 2.76 M/mm3 (4.2-5.4); White Blood Count 11.4 K/mm3 (4.4-11.0)
[2024-01-27 05:56] VITALS: BMI 17.8
[2024-01-27 06:02] LABS: Differential Indicated SCAN CRITERIA MET
[2024-01-27 07:02] LABS: Differential Comment SCANNED
[2024-01-27 08:37] VITALS: BP 124/69; PULSE 72; RESP 16; TEMP 36.8; O2SAT 100
[2024-01-27] MEDS: Folic Acid 1 MG Tablet PO (08:46)
[2024-01-27] MEDS: 0.9% Saline Lock 10 ML Syringe IV ×2 (09:55→20:07)
[2024-01-27] MEDS: Ondansetron 4 MG/2 ML Vial IV ×2 (09:55→20:07)
[2024-01-27] MEDS: Menthol/Lanolin/Calamine/Znox 113 GM Tube 1 APPLIC TOPICAL ×2 (10:26→21:39)
[2024-01-27] MEDS: Pantoprazole Sodium 40 MG Tablet PO (10:27)
[2024-01-27] MEDS: Nystatin Powder 15gm Bottle 1 APPLIC TOPICAL ×2 (10:27→21:39)
[2024-01-27] MEDS: Vancomycin 125 MG/5 ML Susp PO.SYRINGE PO ×2 (10:29→21:41)
[2024-01-27 11:48] VITALS: O2SAT 99
--- NOTE | 2024-01-27 13:01 | PN.HOSP_ITS ---
Subjective Subjective Continues to be nauseated, though was able to trial a little bit of food today. Objective Data Objective Data Vital Signs: Vital Signs Temp Pulse Resp BP Pulse Ox O2 Del Method O2 Flow Rate 98.3 F 72 16 124/69 H 99 Room Air 3 01/27/24 08:37 01/27/24 08:37 01/27/24 08:37 01/27/24 08:37 01/27/24 11:48 01/27/24 11:48 01/24/24 20:39 Oxygen Flow Rate (L/min) 3 Oxygen Delivery Method Room Air Weight: 104 lb 4.458 oz Body Mass Index (BMI) 17.8 Intake & Output: Intake and Output for Last 24 Hours 01/26/24 01/27/24 01/28/24 03:59 03:59 03:59 Intake Total 150 / 150 450 / 450 200 / 200 Output Total 850 / 850 600 / 600 Balance -700 / -700 -150 / -150 200 / 200 Medical Nutrition Assessment Dietitian: Malnutrition Criteria Met Start: 01/22/24 14:19 Freq: Status: Active Protocol: Document 01/22/24 14:20 LO (Rec: 01/22/24 14:20 LO [id number]) Nutrition Malnutrition Evidence of Malnutrition Exists Yes Malnutrition (severe): Chronic Evidenced By Weight Loss (Severe),Physical Changes (Severe) Intake Problem Inadequate Oral Intake Etiology related to suboptimal appetite , nausea, vomiting, diarrhea Signs/Symptoms as evidenced by pt report of decreased PO intakes x 2 weeks Status Active Problem Clinical Problem Chronic Disease or Condition Related Malnutrition Etiology severe related to unknown etiology Signs/Symptoms as evidenced by 27.6lbs (20%) weight loss in 9 months and severe fat/muscle loss to temporal and orbital regions. Status Active Problem 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 Dietitian 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s/Changes Continue Regular diet to optimize oral intakes RD will change 120mL EPHP TID to 4x daily to provide supplemental energy. Lab / Micro Data 01/27/24 05:29 01/26/24 06:43 Labs: Laboratory Results - last 24 hr 01/27/24 05:29: WBC 11.4 H, RBC 2.76 L, Hgb 7.8 L, Hct 25.2 L, MCV 91.3, MCH 28.3, MCHC 31.0 L, RDW Std Deviation 44.2 H, RDW Coeff of Xin 13.2, Plt Count 264, MPV 9.5, Immature Gran % (Auto) 1.000 H, Neut % (Auto) 54.0, Lymph % (Auto) 35.6, [place] % (Auto) 4.8, Eos % (Auto) 3.6, Baso % (Auto) 1.0, Absolute Neuts (auto) 6.2, Absolute Lymphs (auto) 4.06, Nucleated RBC % 0, Differential Comment SCANNED Micro: Microbiology 01/21/24 17:34 Urine, Catheterized Urine Culture - Final Escherichia coli Klebsiella pneumoniae sp pneum 01/22/24 06:00 Stool Enteric Bacteriology - Final 01/21/24 17:22 Mucosa - Nose SARS-CoV-2, Influenza & RSV (PCR) - Final Rhythm Strip Rhythm Strip: Sinus Rhythm Rate: 65 Ectopy: None Physical Exam Narrative General: Alert, Oriented x3, Cooperative, No apparent distress, cachectic HEENT: Atraumatic, PERRLA, EOMI, Normocephalic Oral: Moist Mucosa Neck: Supple, No JVD Lungs: Diminished, Normal air movement, No rhonchi, No wheeze, No rales Cardiovascular: Regular rate, Regular Rhythm, Normal S1, Normal S2, No murmurs Abdomen: Soft, Non Tender, Non-Distended, No Hepato-splenomegaly Extremities: No edema, Capillary Refill Less than 3 Seconds, left foot amputation Skin: No rashes, No breakdown Musculoskeletal: No Tenderness to Palpation of Joints or Extremities Neurological: No focal neurological deficits, Motor Exam 5/5 strength throughout, Sensory exam intact to light touch and pain Psych/Mental Status: Normal affect Assessment & Plan Assessment/Plan (1) Urinary tract infection: PLAN: Plan 1. Chronic diarrhea as well as acute nausea and vomiting in the setting of a Klebsiella and E. coli UTI/ANNIKA ? Completed a course of antibiotics for her UTI ? No significant abdominal pain ? Will place her on vancomycin p.o. 125 mg twice daily as prophylaxis since she is a C. difficile carrier ? Given her continued intractable nausea gastroenterology was consulted ? Leukocytosis resolved ? On admission creatinine was 1.43 with baseline around 0.7, will continue to monitor make adjustments as necessary. Creatinine is improving 2. COPD ? Not in exacerbation ? Continue with her home inhalers 3. GERD ? Stable ? Continue with PPI 4. Chronic normocytic normochromic anemia ? Iron studies demonstrate anemia of chronic disease DVT: SCDs Charges/Coding Visit Charges Inpatient E&M: 53481 Subs Hosp L2
[2024-01-27] MEDS: Ensure Clear 120 ML Liquid PO ×2 (15:52→21:38)
[2024-01-27 15:53] VITALS: BP 96/61; PULSE 64; RESP 16; TEMP 36.7; O2SAT 98
[2024-01-27 21:35] VITALS: BP 99/55; PULSE 65; RESP 16; TEMP 36.6; O2SAT 100
[2024-01-28 05:01] VITALS: BP 93/57; PULSE 69; RESP 18; TEMP 36.8; O2SAT 99
[2024-01-28 05:09] LABS: Absolute Lymphocyte Count 4.05 X10^3/uL (0.83-4.51); Absolute Neutrophil Count 12.7 X10^3/uL (2.0-7.7); Basophil# 0.13 X10^3/uL; Basophil% 0.7 % (0-1); Eosinophil# 0.35 X10^3/uL; Eosinophils% 1.9 % (0-5); Hematocrit 24.1 % (37-47); Hemoglobin 7.6 g/dL (12.0-15.0); Lymphocyte # 4.05 X10^3/ul (0.83-4.51); Lymphocyte % 22.3 % (19-41); Mean Corp Hgb Conc 31.5 g/dL (32-36); Mean Corpuscular Hgb 28.9 pg (27.0-32.0); Mean Corpuscular Volume 91.6 fL (81-99); Monocyte# 0.83 X10^3/uL; Monocyte% 4.6 % (0-10); NRBC Flagged by Analyzer 0 % (0-5); Neutrophil # 12.66 X10^3/uL (2.7-7.7); Neutrophil % 69.7 % (47-70); Platelet Count 292 K/mm3 (150-450); RBC Distribution Width CV 13.5 % (11.6-14.6); RBC Distribution Width SD 44.5 fl (35.1-43.9); Red Blood Count 2.63 M/mm3 (4.2-5.4); White Blood Count 18.2 K/mm3 (4.4-11.0)
[2024-01-28 05:52] VITALS: BMI 18.4
[2024-01-28 05:54] LABS: Anion Gap 5 (5-15); BUN 12 mg/dL (7-18); BUN/Creat Ratio 9.2 RATIO (10-20); Calcium,Total 7.6 mg/dL (8.5-10.1); Chloride 109 mmol/L (98-107); EST Glomerular Filtration Rate 43 mL/min (>60); Est Glom Filt Rate - Afr Amer 52 mL/min (>60); Estimated Creatinine Clearance 32.55 ml/min; Glucose 88 mg/dL (74-106); Potassium 3.5 mmol/L (3.5-5.1); Sodium Level 138 mmol/L (136-145)
[2024-01-28] MEDS: 0.9% Saline Lock 10 ML Syringe IV ×2 (06:03→15:36)
[2024-01-28] MEDS: Ondansetron 4 MG/2 ML Vial IV ×3 (06:05→23:45)
[2024-01-28 07:39] VITALS: BP 108/57; PULSE 63; RESP 16; TEMP 36.7; O2SAT 100
[2024-01-28] MEDS: Folic Acid 1 MG Tablet PO (07:53)
[2024-01-28 08:01] VITALS: O2SAT 95
--- NOTE | 2024-01-28 09:47 | PN.HOSP_ITS ---
Subjective Subjective Still with some nausea, she was able to eat a little bit yesterday but then had a delay in getting her antiemetics last evening and could not eat dinner. Also of note her white count is gone back up though she is denying any symptoms. Objective Data Objective Data Vital Signs: Vital Signs Temp Pulse Resp BP Pulse Ox O2 Del Method O2 Flow Rate 98.0 F 63 16 108/57 L 95 Room Air 3 01/28/24 07:39 01/28/24 07:39 01/28/24 07:39 01/28/24 07:39 01/28/24 08:01 01/28/24 08:01 01/24/24 20:39 Oxygen Flow Rate (L/min) 3 Oxygen Delivery Method Room Air Weight: 108 lb 3.951 oz Body Mass Index (BMI) 18.4 Intake & Output: Intake and Output for Last 24 Hours 01/27/24 01/28/24 01/29/24 03:59 03:59 03:59 Intake Total 450 / 450 400 / 400 Output Total 600 / 600 Balance -150 / -150 400 / 400 Medical Nutrition Assessment Dietitian: Malnutrition Criteria Met Start: 01/22/24 14:19 Freq: Status: Active Protocol: Document 01/22/24 14:20 LO (Rec: 01/22/24 14:20 [id number]) Nutrition Malnutrition Evidence of Malnutrition Exists Yes Malnutrition (severe): Chronic Evidenced By Weight Loss (Severe),Physical Changes (Severe) Intake Problem Inadequate Oral Intake Etiology related to suboptimal appetite , nausea, vomiting, diarrhea Signs/Symptoms as evidenced by pt report of decreased PO intakes x 2 weeks Status Active Problem Clinical Problem Chronic Disease or Condition Related Malnutrition Etiology severe related to unknown etiology Signs/Symptoms as evidenced by 27.6lbs (20%) weight loss in 9 months and severe fat/muscle loss to temporal and orbital regions. Status Active Problem 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 Dietitian 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s/Changes Continue Regular diet to optimize oral intakes RD will change 120mL EPHP TID to 4x daily to provide supplemental energy. Lab / Micro Data 01/28/24 04:35 01/28/24 04:35 Labs: Laboratory Results - last 24 hr 01/28/24 04:35: WBC 18.2 H, RBC 2.63 L, Hgb 7.6 L, Hct 24.1 L, MCV 91.6, MCH 28.9, MCHC 31.5 L, RDW Std Deviation 44.5 H, RDW Coeff of Xin 13.5, Plt Count 292, MPV 10.0, Immature Gran % (Auto) 0.800, Neut % (Auto) 69.7, Lymph % (Auto) 22.3, Mcculloch % (Auto) 4.6, Eos % (Auto) 1.9, Baso % (Auto) 0.7, Absolute Neuts (auto) 12.7 H, Absolute Lymphs (auto) 4.05, Nucleated RBC % 0, Sodium 138, Potassium 3.5, Chloride 109 H, Carbon Dioxide 24.0, Anion Gap 5, BUN 12, Creatinine 1.30 H, Estim Creat Clear Calc 32.55, Est GFR (MDRD) Af Amer 52 L, Est GFR (MDRD) Non-Af 43 L, BUN/Creatinine Ratio 9.2 L, Glucose 88, Calcium 7.6 L Micro: Microbiology 01/21/24 17:34 Urine, Catheterized Urine Culture - Final Escherichia coli Klebsiella pneumoniae sp pneum 01/22/24 06:00 Stool Enteric Bacteriology - Final 01/21/24 17:22 Mucosa - Nose SARS-CoV-2, Influenza & RSV (PCR) - Final Rhythm Strip Rhythm Strip: Sinus Rhythm Rate: 65 Ectopy: None Physical Exam Narrative General: Alert, Oriented x3, Cooperative, No apparent distress, cachectic HEENT: Atraumatic, PERRLA, EOMI, Normocephalic Oral: Moist Mucosa Neck: Supple, No JVD Lungs: Diminished, Normal air movement, No rhonchi, No wheeze, No rales Cardiovascular: Regular rate, Regular Rhythm, Normal S1, Normal S2, No murmurs Abdomen: Soft, Non Tender, Non-Distended, No Hepato-splenomegaly Extremities: No edema, Capillary Refill Less than 3 Seconds, left foot amputation Skin: No rashes, No breakdown Musculoskeletal: No Tenderness to Palpation of Joints or Extremities Neurological: No focal neurological deficits, Motor Exam 5/5 strength throughout, Sensory exam intact to light touch and pain Psych/Mental Status: Normal affect Assessment & Plan Assessment/Plan (1) Urinary tract infection: PLAN: Plan 1. Chronic diarrhea as well as acute nausea and vomiting in the setting of a Klebsiella and E. coli UTI/ANNIKA ? White count climbed to 18 and may be due to a shorter duration of her previous antibiotic therefore we will restart antibiotics with Cipro at 500 twice daily ? No significant abdominal pain ? Will place her on vancomycin p.o. 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 Given her continued intractable nausea gastroenterology was consulted, awaiting eval ? On admission creatinine was 1.43 with baseline around 0.7, will continue to monitor make adjustments as necessary. Creatinine is improving 2. COPD ? Not in exacerbation ? Continue with her home inhalers 3. GERD ? Stable ? Continue with PPI 4. Chronic normocytic normochromic anemia ? Iron studies demonstrate anemia of chronic disease ? Will continue to monitor DVT: SCDs Charges/Coding Visit Charges Inpatient E&M: 06987 Subs Hosp L2
[2024-01-28] MEDS: Menthol/Lanolin/Calamine/Znox 113 GM Tube 1 APPLIC TOPICAL ×2 (11:16→22:58)
[2024-01-28] MEDS: Ciprofloxacin 400 MG/200 ML BAG 200 MG IV ×2 (11:16→23:39)
[2024-01-28] MEDS: Pantoprazole Sodium 40 MG Tablet PO (11:17)
[2024-01-28] MEDS: Nystatin Powder 15gm Bottle 1 APPLIC TOPICAL ×2 (11:17→22:57)
[2024-01-28] MEDS: Ensure Clear 120 ML Liquid PO ×4 (11:24→22:58)
[2024-01-28] MEDS: Vancomycin 125 MG/5 ML Susp PO.SYRINGE PO ×2 (11:25→22:58)
[2024-01-28 13:39] VITALS: BP 99/55; PULSE 64; RESP 16; TEMP 36.7; O2SAT 100
[2024-01-28 23:48] VITALS: BP 110/63; PULSE 67; RESP 16; TEMP 37.1; O2SAT 100
[2024-01-29 04:05] VITALS: BMI 18.6
[2024-01-29 04:06] VITALS: BP 91/55; PULSE 69; RESP 16; TEMP 36.7; O2SAT 99
[2024-01-29] MEDS: proCHLORPERazine 10 MG/2 ML Vial 5 MG IV ×3 (04:12→22:26)
[2024-01-29 07:03] LABS: Absolute Lymphocyte Count 4.22 X10^3/uL (0.83-4.51); Absolute Neutrophil Count 9.3 X10^3/uL (2.0-7.7); Basophil% 0.7 % (0-1); Eosinophil# 0.31 X10^3/uL; Eosinophils% 2.1 % (0-5); Hematocrit 23.4 % (37-47); Hemoglobin 7.5 g/dL (12.0-15.0); Lymphocyte # 4.22 X10^3/ul (0.83-4.51); Lymphocyte % 28.2 % (19-41); Mean Corp Hgb Conc 32.1 g/dL (32-36); Mean Corpuscular Hgb 29.8 pg (27.0-32.0); Mean Corpuscular Volume 92.9 fL (81-99); Mean Platelet Vol. 9.9 fl (6.2-12.0); NRBC Flagged by Analyzer 0 % (0-5); Neutrophil # 9.29 X10^3/uL (2.7-7.7); Platelet Count 282 K/mm3 (150-450); RBC Distribution Width CV 13.5 % (11.6-14.6); RBC Distribution Width SD 45.4 fl (35.1-43.9); Red Blood Count 2.52 M/mm3 (4.2-5.4)
[2024-01-29 07:42] LABS: Anion Gap 4 (5-15); BUN 11 mg/dL (7-18); BUN/Creat Ratio 6.9 RATIO (10-20); Calcium,Total 7.6 mg/dL (8.5-10.1); Chloride 109 mmol/L (98-107); Creatinine, Serum 1.59 mg/dL (0.55-1.02); EST Glomerular Filtration Rate 34 mL/min (>60); Est Glom Filt Rate - Afr Amer 42 mL/min (>60); Estimated Creatinine Clearance 26.78 ml/min; Glucose 91 mg/dL (74-106); Potassium 3.4 mmol/L (3.5-5.1); Sodium Level 135 mmol/L (136-145)
[2024-01-29] MEDS: Vancomycin 125 MG/5 ML Susp PO.SYRINGE PO ×2 (09:11→22:20)
[2024-01-29] MEDS: Ondansetron 4 MG/2 ML Vial IV ×2 (09:11→17:19)
[2024-01-29] MEDS: 0.9% Saline Lock 10 ML Syringe IV ×3 (09:11→17:19)
[2024-01-29] MEDS: Potassium Chloride Oral Tablet 20 MEQ 40 MEQ PO (09:13)
[2024-01-29] MEDS: Ciprofloxacin 400 MG/200 ML BAG 200 MG IV (09:14)
[2024-01-29] MEDS: Pantoprazole Sodium 40 MG Tablet PO (09:14)
[2024-01-29] MEDS: Folic Acid 1 MG Tablet PO (09:14)
[2024-01-29] MEDS: Menthol/Lanolin/Calamine/Znox 113 GM Tube 1 APPLIC TOPICAL ×2 (09:14→22:19)
[2024-01-29] MEDS: Nystatin Powder 15gm Bottle 1 APPLIC TOPICAL ×2 (09:15→22:20)
[2024-01-29 09:36] VITALS: BP 100/60; PULSE 58; RESP 15; TEMP 36.7; O2SAT 100
--- NOTE | 2024-01-29 11:05 | PN_ITS ---
Subjective Subjective Patient seen and examined. She still complains of nausea and vomiting. Patient has not really been cooperating with physical therapy and she says she is not going to allow anyone to cummings her. She wants to let us know space so she feels well enough to go home. She is however willing to consider TCU. Review of sy stems is otherwise negative. Objective Data Objective Data Vital Signs: Vital Signs Temp Pulse Resp BP Pulse Ox O2 Del Method O2 Flow Rate 98.0 F 58 L 15 100/60 100 Room Air 3 01/29/24 09:36 01/29/24 09:36 01/29/24 09:36 01/29/24 09:36 01/29/24 09:36 01/29/24 09:36 01/24/24 20:39 Oxygen Flow Rate (L/min) 3 Oxygen Delivery Method Room Air Weight: 108 lb 14.534 oz Body Mass Index (BMI) 18.6 Intake & Output: Intake and Output for Last 24 Hours 01/27/24 01/28/24 01/29/24 23:59 23:59 23:59 Intake Total 400 / 400 200 / 400 500 / 500 Balance 400 / 400 200 / 400 500 / 500 Medical Nutrition Assessment Dietitian: Malnutrition Criteria Met Start: 01/22/24 14:19 Freq: Status: Active Protocol: Document 01/22/24 14:20 (Rec: 01/22/24 14:20 [id number]) Nutrition Malnutrition Evidence of Malnutrition Exists Yes Malnutrition (severe): Chronic Evidenced By Weight Loss (Severe),Physical Changes (Severe) Intake Problem Inadequate Oral Intake Etiology related to suboptimal appetite , nausea, vomiting, diarrhea Signs/Symptoms as evidenced by pt report of decreased PO intakes x 2 weeks Status Active Problem Clinical Problem Chronic Disease or Condition Related Malnutrition Etiology severe related to unknown etiology Signs/Symptoms as evidenced by 27.6lbs (20%) weight loss in 9 months and severe fat/muscle loss to temporal and orbital regions. Status Active Problem 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 Dietitian 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s/Changes Continue Regular diet to optimize oral intakes RD will change 120mL EPHP TID to 4x daily to provide supplemental energy. Lab / Micro Data 01/29/24 06:51 01/29/24 06:51 Labs: Laboratory Results - last 24 hr 01/29/24 06:51: WBC 15.0 H, RBC 2.52 L, Hgb 7.5 L, Hct 23.4 L, MCV 92.9, MCH 29.8, MCHC 32.1, RDW Std Deviation 45.4 H, RDW Coeff of Xin 13.5, Plt Count 282, MPV 9.9, Immature Gran % (Auto) 1.000 H, Neut % (Auto) 62.0, Lymph % (Auto) 28.2, Tripp % (Auto) 6.0, Eos % (Auto) 2.1, Baso % (Auto) 0.7, Absolute Neuts (auto) 9.3 H, Absolute Lymphs (auto) 4.22, Nucleated RBC % 0, Sodium 135 L, Potassium 3.4 L, Chloride 109 H, Carbon Dioxide 22.0, Anion Gap 4 L, BUN 11, Creatinine 1.59 H, Estim Creat Clear Calc 26.78, Est GFR (MDRD) Af Amer 42 L, Est GFR (MDRD) Non-Af 34 L, BUN/Creatinine Ratio 6.9 L, Glucose 91, Calcium 7.6 L Micro: Microbiology 01/21/24 17:34 Urine, Catheterized Urine Culture - Final Escherichia coli Klebsiella pneumoniae sp pneum 01/22/24 06:00 Stool Enteric Bacteriology - Final 01/21/24 17:22 Mucosa - Nose SARS-CoV-2, Influenza & RSV (PCR) - Final Rhythm Strip Rhythm Strip: Sinus Rhythm Rate: 65 Ectopy: None Physical Exam Const alert, oriented x3 and no apparent distress Constitutional Narrative: frail weak General Appearance: cooperative HEENT normocephalic, head/scalp atraumatic and oropharynx normal Mouth: dry mucous membranes Eyes PERRL and EOMs intact bilaterally Neck no lymphadenopathy and supple Lymph Lymphatic: no lymphadenopathy noted and no lymphedema noted Resp normal respiratory effort, normal air movement and clear to auscultation bilaterally Cardio regular rate, regular rhythm, S1 normal heart sound, S2 normal heart sound and no murmurs GI normal to inspection, nondistended, normoactive bowel sounds, soft to palpation and non-tender Extremity normal capillary refill, no clubbing, cyanosis or edema and no calf tenderness General Extremity: no tenderness to palpation of joints or extremities Skin General Skin Exam: no breakdown Neuro CN's II-XII intact bilaterally, no focal motor deficits and no sensory deficits noted Motor Exam: strength 5/5 throughout and general weakness Psych thought process normal, cooperative and affect normal Appearance: appropriate Assessment & Plan Assessment/Plan (1) Generalized weakness: (2) Acute dehydration: (3) Nausea, vomiting and diarrhea: PLAN: Plan # UTI due to Klebsiella and E. coli * WBC down to 15 today. Currently on ciprofloxacin. 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 * Continues to have nausea and vomiting. On Zofran. Gastroenterology consulted. Awaiting recommendations. * #Persistent nausea and vomiting: GI consulted. Await recs. #COPD: Not in exacerbation. Breathing treatments bronchodilators. #GERD: On PPI #Debility and weakness: * PT OT on board. Patient has not been very compliant with PT OT. * Patient encouraged to be compliant with them. She does not want to go to a long-term because she is concerned she will lose her house if she goes on Medicaid. * However she is okay with considering TCU as she has been there before. #Anemia: * Hemoglobin today 7.5. Her baseline seems to be around 10. * Iron profile done showed low iron levels with low TIBC and elevated ferritin indicating anemia of chronic disease picture. Will check stool for occult blood. * DVT prophylaxis: SCDs Charges/Coding Visit Charges Inpatient E&M: 14937 Subs Hosp L2
[2024-01-29 14:00] VITALS: BP 99/60; PULSE 68; RESP 15; TEMP 36.8; O2SAT 100
--- NOTE | 2024-01-29 14:18 | CASEMGMT ---
Discharge Planning A list of SNF providers including quality and resource use data and consistent with the patient's preferred geographic region, medical needs, and insurance network was created in [employer] Guide.? This list was provided to the SW. Tami Fall Discharge Planning Asst.
--- NOTE | 2024-01-29 15:31 | CASEMGMT ---
Social Work SW met with pt and introduced self and role of SW. SW broached topic of short term SNF placement with pt prior to return home. Pt is concerned that a SNF will force pt to apply for Medicaid. SW explained medical coverage of SNF vs skilled nursing with Medicaid. Pt more agreeable once this was explained. A list of SNF providers including quality and resource use data and consistent with the patient?s preferred geographic region, medical needs, and insurance network were provided from the [employer] Guide. Pt preferred provider is [facility]. Pt is very hesitant to go anywhere else. Referral made to TCU. SW will await determination of acceptance. Plan: TCU, pending acceptance [facility]
[2024-01-29] MEDS: 0.9% Normal Saline (250mL Bag) 250 ML 15 ML IV (17:19)
[2024-01-29] MEDS: Ensure Clear 120 ML Liquid PO (22:19)
[2024-01-29] MEDS: Acetaminophen 325 MG Tablet 975 MG PO (22:27)
[2024-01-29 22:36] VITALS: BP 121/47; PULSE 67; RESP 16; TEMP 36.9; O2SAT 98
[2024-01-30 06:00] VITALS: BMI 18.3
[2024-01-30 06:24] VITALS: BP 101/52; PULSE 54; RESP 16; TEMP 36.6; O2SAT 98
[2024-01-30 06:51] LABS: Absolute Lymphocyte Count 5.37 X10^3/uL (0.83-4.51); Absolute Neutrophil Count 9.9 X10^3/uL (2.0-7.7); Basophil# 0.15 X10^3/uL; Basophil% 0.9 % (0-1); Eosinophil# 0.34 X10^3/uL; Hematocrit 24.3 % (37-47); Hemoglobin 7.5 g/dL (12.0-15.0); Lymphocyte # 5.37 X10^3/ul (0.83-4.51); Lymphocyte % 31.7 % (19-41); Mean Corp Hgb Conc 30.9 g/dL (32-36); Mean Corpuscular Hgb 28.7 pg (27.0-32.0); Mean Corpuscular Volume 93.1 fL (81-99); Monocyte# 1.05 X10^3/uL; Monocyte% 6.2 % (0-10); NRBC Flagged by Analyzer 0 % (0-5); Neutrophil # 9.89 X10^3/uL (2.7-7.7); Neutrophil % 58.3 % (47-70); POSITIVE DIFFERENTIAL YES; Platelet Count 340 K/mm3 (150-450); RBC Distribution Width CV 13.6 % (11.6-14.6); RBC Distribution Width SD 46.2 fl (35.1-43.9); Red Blood Count 2.61 M/mm3 (4.2-5.4)
[2024-01-30 07:42] LABS: Anion Gap 4 (5-15); BUN 14 mg/dL (7-18); BUN/Creat Ratio 6.4 RATIO (10-20); Calcium,Total 7.7 mg/dL (8.5-10.1); Chloride 109 mmol/L (98-107); Creatinine, Serum 2.19 mg/dL (0.55-1.02); EST Glomerular Filtration Rate 24 mL/min (>60); Est Glom Filt Rate - Afr Amer 29 mL/min (>60); Estimated Creatinine Clearance 19.13 ml/min; Glucose 81 mg/dL (74-106); Potassium 4.6 mmol/L (3.5-5.1); Sodium Level 134 mmol/L (136-145)
[2024-01-30 07:48] LABS: Differential Indicated SCAN CRITERIA MET
[2024-01-30] MEDS: Ondansetron 4 MG/2 ML Vial IV (08:42)
[2024-01-30 08:44] VITALS: BP 125/68; PULSE 64; RESP 18; TEMP 35.9; O2SAT 100
[2024-01-30 10:40] LABS: Differential Comment SCANNED
--- NOTE | 2024-01-30 10:42 | PN_ITS ---
Subjective Subjective Patient seen and examined. She states she is feeling better today. Her nausea and vomiting have improved slightly. Review of systems otherwise negative. Objective Data Objective Data Vital Signs: Vital Signs Temp Pulse Resp BP Pulse Ox O2 Del Method O2 Flow Rate 96.7 F L 64 18 125/68 H 100 Room Air 3 01/30/24 08:44 01/30/24 08:44 01/30/24 08:44 01/30/24 08:44 01/30/24 08:44 01/30/24 08:44 01/24/24 20:39 Oxygen Flow Rate (L/min) 3 Oxygen Delivery Method Room Air Weight: 107 lb 2.314 oz Body Mass Index (BMI) 18.3 Intake & Output: Intake and Output for Last 24 Hours 01/28/24 01/29/24 01/30/24 23:59 23:59 23:59 Intake Total 200 / 400 700 / 900 400 / 400 Output Total 400 / 400 Balance 200 / 400 300 / 500 400 / 400 Medical Nutrition Assessment Dietitian: Malnutrition Criteria Met Start: 01/22/24 14:19 Freq: Status: Active Protocol: Document 01/22/24 14:20 LO (Rec: 01/22/24 14:20 LO [id number]) Nutrition Malnutrition Evidence of Malnutrition Exists Yes Malnutrition (severe): Chronic Evidenced By Weight Loss (Severe),Physical Changes (Severe) Intake Problem Inadequate Oral Intake Etiology related to suboptimal appetite , nausea, vomiting, diarrhea Signs/Symptoms as evidenced by pt report of decreased PO intakes x 2 weeks Status Active Problem Clinical Problem Chronic Disease or Condition Related Malnutrition Etiology severe related to unknown etiology Signs/Symptoms as evidenced by 27.6lbs (20%) weight loss in 9 months and severe fat/muscle loss to temporal and orbital regions. Status Active Problem 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 Dietitian 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s/Changes Continue Regular diet to optimize oral intakes RD will change 120mL EPHP TID to 4x daily to provide supplemental energy. Lab / Micro Data 01/30/24 05:40 01/30/24 05:40 Labs: Laboratory Results - last 24 hr 01/30/24 05:40: WBC 17.0 H, RBC 2.61 L, Hgb 7.5 L, Hct 24.3 L, MCV 93.1, MCH 28.7, MCHC 30.9 L, RDW Std Deviation 46.2 H, RDW Coeff of Xin 13.6, Plt Count 340, MPV 11.0, Immature Gran % (Auto) 0.900, Neut % (Auto) 58.3, Lymph % (Auto) 31.7, [place]ven % (Auto) 6.2, Eos % (Auto) 2.0, Baso % (Auto) 0.9, Absolute Neuts (auto) 9.9 H, Absolute Lymphs (auto) 5.37 H, Nucleated RBC % 0, Differential Comment SCANNED, Sodium 134 L, Potassium 4.6, Chloride 109 H, Carbon Dioxide 21.0, Anion Gap 4 L, BUN 14, Creatinine 2.19 H, Estim Creat Clear Calc 19.13, Est GFR (MDRD) Af Amer 29 L, Est GFR (MDRD) Non-Af 24 L, BUN/Creatinine Ratio 6.4 L, Glucose 81, Calcium 7.7 L Micro: Microbiology 01/30/24 09:18 Stool Stool Occult Blood (SONG) - Final 01/21/24 17:34 Urine, Catheterized Urine Culture - Final Escherichia coli Klebsiella pneumoniae sp pneum 01/22/24 06:00 Stool Enteric Bacteriology - Final 01/21/24 17:22 Mucosa - Nose SARS-CoV-2, Influenza & RSV (PCR) - Final Rhythm Strip Rhythm Strip: Sinus Rhythm Rate: 65 Ectopy: None Physical Exam Const alert, oriented x3 and no apparent distress Constitutional Narrative: frail weak General Appearance: cooperative HEENT normocephalic, head/scalp atraumatic and oropharynx normal Eyes PERRL and EOMs intact bilaterally Neck no lymphadenopathy and supple Lymph Lymphatic: no lymphadenopathy noted and no lymphedema noted Resp normal respiratory effort, normal air movement and clear to auscultation bilaterally Cardio regular rate, regular rhythm, S1 normal heart sound, S2 normal heart sound and no murmurs GI normal to inspection, nondistended, normoactive bowel sounds, soft to palpation and non-tender Extremity normal capillary refill, no clubbing, cyanosis or edema and no calf tenderness Extremity Narrative: 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 coli * WBC is further up to 17 today, from 15 yesterday. Remains on ciprofloxacin. 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 * Continues to have nausea and vomiting. On Zofran. Gastroenterology consulted. Awaiting recommendations. * it is not clear why her wbc keeps trending upwards * will switch antibiotic to IV zosyn based on sensivities. NO other clear source of infection * #Persistent nausea and vomiting: GI consulted. Await recs. #COPD: Not in exacerbation. Breathing treatments bronchodilators. #GERD: On PPI #Debility and weakness: * PT OT on board. Patient has not been very compliant with PT OT. * Patient encouraged to be compliant with them. She does not want to go to a detention because she is concerned she will lose her house if she goes on Medicaid. * However she is okay with considering TCU as she has been there before. #Anemia: * Hemoglobin today remains 7.5. Her baseline seems to be around 10. * Iron profile done showed low iron levels with low TIBC and elevated ferritin indicating anemia of chronic disease picture. * stool for occult blood still pending. * She had a colonoscopy on 09/02/2021 which showed anal fissure and congested mucosa in the sigmoid colon, descending colon and splenic flexure, in the transverse colon and at the hepatic flexure with significant ulcerations consistent with ischemic colitis. She also had evidence of moderate diverticulosis in the sigmoid colon. * DVT prophylaxis: SCDs Charges/Coding Visit Charges Inpatient E&M: 36110 Subs Hosp L2
[2024-01-30] MEDS: Ciprofloxacin 400 MG/200 ML BAG 200 MG IV (10:44)
[2024-01-30] MEDS: Menthol/Lanolin/Calamine/Znox 113 GM Tube 1 APPLIC TOPICAL ×2 (10:45→22:09)
[2024-01-30] MEDS: Nystatin Powder 15gm Bottle 1 APPLIC TOPICAL ×2 (10:46→22:09)
[2024-01-30] MEDS: Folic Acid 1 MG Tablet PO (10:46)
[2024-01-30] MEDS: Pantoprazole Sodium 40 MG Tablet PO (10:46)
--- NOTE | 2024-01-30 12:47 | NURSING ---
called pharmacy at 1153 for oral vanc that was due at 1000.. recalled pharmacy at 1248 [address] for oral vanc.
[2024-01-30] MEDS: Vancomycin 125 MG/5 ML Susp PO.SYRINGE PO ×2 (13:28→22:08)
[2024-01-30 14:35] VITALS: BP 83/45; PULSE 67; RESP 18; TEMP 36.8; O2SAT 94
[2024-01-30 14:36] VITALS: BP 83/54
--- NOTE | 2024-01-30 14:36 | CASEMGMT ---
Social Work TCU is able to accept pt. SW met with pt and her sister Jackie and updated that TCU has accepted. Pt is appreciative of information and agreeable to discharge to TCU. Physician notified that pt can discharge to TCU when medically ready. Plan: TCU, when medically ready [facility]
--- NOTE | 2024-01-30 16:51 | EX.PCM.CON.G ---
HPI Consult Data Date of Consult: 01/30/24 HPI Narrative Reason for Consultation: Nausea vomiting HPI Narrative: RED PRICE, is a 68 F who presented after a syncopal episode.? She says that she lost about 30 pounds in the last 2 months due to inability to eat because of progressive nausea. ? By that time an ambulance had been called and she was transferred to the hospital for further evaluation.? A CT scan was done of the head and neck which did not show any acute findings.? Laboratory studies were relatively unremarkable.? 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 Patient also states she has a history of meningioma in her brain.? CT scan did not reveal a mass effect on her current exam.? She will be admitted for further evaluation of syncopal episode. She then underwent an MRI and MRA of the brain and neck. No acute abnormality was found. I got to know her for the first time in 2020 consultation for lower GI bleeding. She was doing typhlitis having ischemic colitis and was later identified as having C. difficile colitis. She was treated accordingly. We also diagnosed her with gastroparesis and she has been having diarrhea for the last several months. 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 She has had C. difficile colitis at least 3 times with the last cultures for her did not reveal any antigen although the PCR was positive. She has been having diarrhea for the last 4 weeks that seems like her C. difficile came back. From her multiple episodes of C. difficile she was placed on budesonide for the treatment of collagenous colitis that was identified on subsequent colonoscopy. She also Lomotil as needed for worsening diarrhea. At this time she is very nauseous and complaining of pain at the base of her head that she thinks initially started the nausea and could have led to a syncopal episode. 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 PAD (peripheral artery disease) Type 2 diabetes mellitus with diabetic polyneuropathy Ulcer of amputation stump of foot Wound of left foot Home Medications albuterol sulfate 90 mcg/actuation aerosol inhaler (Ventolin HFA) 1 puff inhalation Q4H PRN PRN SHORTNESS OF BREATH #0 grams 03/25/21 [Rx Last Taken 2 Weeks Ago ~03/27/23] ondansetron 4 mg disintegrating tablet 4 mg PO Q6H PRN PRN NAUSEA #0 tabs 03/25/21 [Rx Last Taken 04/10/23] tramadol 50 mg tablet 50 mg PO Q6H PRN Pain 05/18/21 [History Last Taken Unknown] acetaminophen 325 mg tablet 975 mg PO TID PRN Pain 12/31/22 [History Last Taken Unknown] folic acid 1 mg tablet 1 mg PO DAILY supplement #30 tabs 02/15/23 [Rx Last Taken 04/09/23] Lactobacillus rhamnosus GG 10 billion cell capsule (Culturelle) 1 cap PO DAILY GUT HEALTH 04/10/23 [History Last Taken 04/09/23] cholecalciferol (vitamin D3) 125 mcg (5,000 unit) tablet 125 mcg PO DAILY SUPPLEMENT 04/10/23 [History Last Taken 04/09/23] diphenoxylate-atropine 2.5 mg-0.025 mg tablet 1 tab PO BID DIARRHEA 04/10/23 [History Last Taken 04/10/23] pantoprazole 40 mg tablet,delayed release 40 mg PO DAILY GERD 04/10/23 [History Last Taken 04/10/23] ondansetron 4 mg disintegrating tablet 4 mg PO Q8H nausea #20 tabs 08/10/23 [Rx Last Taken Unknown] arginine 7 gram-glutam 7 gram-CaHMB 1.5 [id number]-min oral pwd pkt (Alfredo (with collagen)) 1 packet PO BID supplement 01/21/24 [History Last Taken Unknown] loperamide 2 mg capsule 2 mg PO Q12H diarrhea 01/21/24 [History Last Taken Unknown] zenpap PO stomach 01/21/24 [History Last Taken Unknown] Allergy/AdvReac Type Severity Reaction Status Date / Time cefprozil Allergy Shortness Verified 05/19/23 15:12 of breath ceftriaxone Allergy Hives Verified 05/19/23 15:12 clindamycin Allergy Rash Verified 05/19/23 15:12 enalapril Allergy Other Verified 05/19/23 15:12 enoxaparin Allergy Rash Verified 05/19/23 15:12 heparin Allergy Rash Verified 05/19/23 15:12 levalbuterol Allergy Other Verified 05/19/23 15:12 morphine Allergy Shortness Verified 05/19/23 15:12 of breath Penicillins Allergy Anaphylaxis Verified 05/19/23 15:12 shellfish derived Allergy Anaphylaxis Verified 05/19/23 15:12 valsartan Allergy Other Verified 05/19/23 15:12 vancomycin Allergy Rash Verified 05/19/23 15:12 atorvastatin AdvReac Other Verified 05/19/23 15:12 rosuvastatin [From Crestor] AdvReac Other Verified 05/19/23 15:12 Family History Mother Cancer Lung CA w/ tobacco use history. Diabetes COPD (chronic obstructive pulmonary disease) Father Cancer Lung CA w/ tobacco use history. Diabetes COPD (chronic obstructive pulmonary disease) Heart disease Surgical History History of appendectomy History of eye surgery History of foot surgery History of lumpectomy History of tubal ligation Status post transmetatarsal amputation of left foot Tubal ligation status Social History household members: none Smoking Status: Never smoker alcohol intake: never substance use type: does not use ROS Review of Systems ROS Unobtainable: Denies due to encephalopathy, due to endotracheal tube, due to mental condition, due to mental status or other Constitutional Constitutional: Reports anorexia, change in weight and weakness Eyes Eyes: Denies blurry vision, change in eye color, change in vision, discharge from eye(s), double vision, erythema, eye pain, loss of vision or other ENT HEENT: Denies abnormal hearing, dysphagia, ear pain, epistaxis, headache(s), hearing loss, nasal congestion, nasal discharge, post nasal drip, sinus pressure, sore throat or other Cardiovascular Cardiovascular: Denies chest pain, claudication, dyspnea on exertion, edema, lightheadedness, orthopnea, palpitations, paroxysmal nocturnal dyspnea, rapid heart rate, syncope or other Respiratory/Chest Respiratory/Chest: Denies cough, dyspnea, excessive phlegm production, hemoptysis, productive cough, shortness of breath at rest, shortness of breath with exertion, wheezing or other Gastrointestinal Gastrointestinal: Reports diarrhea, loose stools, nausea and vomiting Genitourinary Genitourinary: Denies burning urination, difficulty urinating, dysuria, hematuria, nocturia, urinary frequency, urinary hesitancy, urinary incontinence, urinary urgency or other Musculoskeletal Musculoskeletal: Denies arthralgias, back pain, joint pain, joint stiffness, joint swelling, myalgias, neck pain or other Neurologic Neurologic: Denies abnormal gait, abnormal speech, confusion, disequilibrium, dizziness, focal weakness, headache(s), numbness, paresthesias, seizure-like activity, seizures, syncope, tingling, tremor(s) or other Psychiatric Psychiatric: Denies anxiety, depression, homicidal ideation, suicidal ideation or other Endocrine Endocrinology: Denies change in body appearance, cold intolerance, excessive sweating, heat intolerance, polydipsia, polyuria or other Hematologic/Lymphatic Hematologic/Lymphatic: Denies anemia, easy bleeding, easy bruising, lymphadenopathy or other Physical Exam Const alert, oriented x3 and no apparent distress Constitutional Narrative: frail, weak General Appearance: cooperative Orientation / Consciousness: awake HEENT normocephalic, head/scalp atraumatic, hearing grossly normal bilaterally, moist oral mucous membranes and oropharynx normal Mouth: oral and palatal mucosa normal Eyes PERRL and EOMs intact bilaterally Neck no lymphadenopathy and supple Lymph Lymphatic: no lymphadenopathy noted and no lymphedema noted Resp normal respiratory effort, normal air movement, no retractions, no use of accessory muscles and clear to auscultation bilaterally Cardio regular rate, regular rhythm, S1 normal heart sound, S2 normal heart sound and no murmurs GI normal to inspection, nondistended, normoactive bowel sounds, soft to palpation and non-tender Extremity normal capillary refill, no clubbing, cyanosis or edema and no calf tenderness Extremity Narrative: left ankle joint wrapped in bandage General Extremity: no tenderness to palpation of joints or extremities Skin General Skin Exam: no breakdown Neuro CN's II-XII intact bilaterally, no focal motor deficits and no sensory deficits noted Motor Exam: strength 5/5 throughout and general weakness Psych thought process normal, cooperative and affect normal Appearance: appropriate Lab / Micro Data 01/31/24 05:57 01/31/24 05:57 Labs: Laboratory Results - last 24 hr 01/31/24 05:57: WBC 16.2 H, RBC 2.60 L, Hgb 7.5 L, Hct 24.2 L, MCV 93.1, MCH 28.8, MCHC 31.0 L, RDW Std Deviation 45.8 H, RDW Coeff of Xin 13.6, Plt Count 359, MPV 9.9, Immature Gran % (Auto) 0.900, Neut % (Auto) 59.6, Lymph % (Auto) 30.6, Sutter % (Auto) 5.6, Eos % (Auto) 2.2, Baso % (Auto) 1.1 H, Absolute Neuts (auto) 9.7 H, Absolute Lymphs (auto) 4.96 H, Nucleated RBC % 0, Sodium 132 L, Potassium 4.9, Chloride 107, Carbon Dioxide 20.0 L, Anion Gap 5, BUN 16, Creatinine 2.80 H, Estim Creat Clear Calc 16.10, Est GFR (MDRD) Af Amer 22 L, Est GFR (MDRD) Non-Af 18 L, BUN/Creatinine Ratio 5.7 L, Glucose 87, Calcium 7.7 L Rhythm Strip Rhythm Strip: Sinus Rhythm Rate: 65 Ectopy: None Assessment & Plan Assessment/Plan (1) Urinary tract infection: PLAN: Plan 1. Chronic diarrhea as well as acute nausea and vomiting in the setting of a Klebsiella and E. coli UTI/ANNIKA ? White count climbed to 18 and may be due to a shorter duration of her previous antibiotic therefore we will restart antibiotics with Cipro at 500 twice daily ? No significant abdominal pain ? Will place her on vancomycin p.o. 125 mg twice daily as prophylaxis since she is a C. difficile carrier, and this will need to be continued for 5 days after completion of antibioticsl ? On admission creatinine was 1.43 with baseline around 0.7, will continue to monitor make adjustments as necessary. Creatinine is improving 2. COPD ? Not in exacerbation ? Continue with her home inhalers 3. GERD ? Stable ? Continue with PPI 4. Chronic normocytic normochromic anemia ? Iron studies demonstrate anemia of chronic disease ? Will continue to monitor DVT: SCDs Charges/Coding Visit Charges Inpatient E&M: 45127 Init Hosp L3
[2024-01-30] MEDS: Ondansetron ODT 4 MG Tablet PO (20:27)
[2024-01-30 22:06] VITALS: BP 116/58; PULSE 75; RESP 16; TEMP 36.9; O2SAT 100
[2024-01-30] MEDS: Acetaminophen 325 MG Tablet 975 MG PO (22:13)
[2024-01-31 03:23] VITALS: BP 101/57; PULSE 65; RESP 16; TEMP 36.4; O2SAT 100
[2024-01-31 05:56] VITALS: BMI 19.7
[2024-01-31 06:12] LABS: Absolute Lymphocyte Count 4.96 X10^3/uL (0.83-4.51); Absolute Neutrophil Count 9.7 X10^3/uL (2.0-7.7); Basophil# 0.18 X10^3/uL; Basophil% 1.1 % (0-1); Eosinophil# 0.35 X10^3/uL; Eosinophils% 2.2 % (0-5); Hematocrit 24.2 % (37-47); Hemoglobin 7.5 g/dL (12.0-15.0); Lymphocyte # 4.96 X10^3/ul (0.83-4.51); Lymphocyte % 30.6 % (19-41); Mean Corpuscular Hgb 28.8 pg (27.0-32.0); Mean Corpuscular Volume 93.1 fL (81-99); Mean Platelet Vol. 9.9 fl (6.2-12.0); Monocyte# 0.91 X10^3/uL; Monocyte% 5.6 % (0-10); NRBC Flagged by Analyzer 0 % (0-5); Neutrophil # 9.65 X10^3/uL (2.7-7.7); Neutrophil % 59.6 % (47-70); POSITIVE MORPHOLOGY YES; Platelet Count 359 K/mm3 (150-450); RBC Distribution Width CV 13.6 % (11.6-14.6); RBC Distribution Width SD 45.8 fl (35.1-43.9); White Blood Count 16.2 K/mm3 (4.4-11.0)
[2024-01-31 06:37] LABS: Anion Gap 5 (5-15); BUN 16 mg/dL (7-18); BUN/Creat Ratio 5.7 RATIO (10-20); Calcium,Total 7.7 mg/dL (8.5-10.1); Chloride 107 mmol/L (98-107); EST Glomerular Filtration Rate 18 mL/min (>60); Est Glom Filt Rate - Afr Amer 22 mL/min (>60); Glucose 87 mg/dL (74-106); Potassium 4.9 mmol/L (3.5-5.1); Sodium Level 132 mmol/L (136-145)
[2024-01-31 07:25] LABS: Differential Indicated SCAN CRITERIA MET
[2024-01-31 08:10] VITALS: BP 138/66; PULSE 66; RESP 12; TEMP 36.6; O2SAT 100
[2024-01-31] MEDS: Ondansetron ODT 4 MG Tablet PO (09:02)
[2024-01-31 09:25] VITALS: BP 120/75; PULSE 68; RESP 16; TEMP 36.8; O2SAT 100
[2024-01-31] MEDS: Nystatin Powder 15gm Bottle 1 APPLIC TOPICAL (11:03)
--- NOTE | 2024-01-31 11:03 | TREXTCAR_ITS ---
Diet Diet Order/Speech Therapy: 01/21/24 20:47 Diet: Regular - General Food consistency:: Regular Liquid Consistency:: Regular/Thin Is pt able to select menu?: Yes Routine Orders/Code Status Enema Type: Fleetz Enema Frequency: Daily PRN Suppository Type: Dulcolax 10mg Suppository Frequency: Daily PRN O2 Frequency: PRN Keep PO Greater than or Equal to (%): 90 Wound(s) Heels: Wound Type: healed pressure injuries Dressing Change: well padded, dry dressing R great toe: Wound Type: Abrasion R groin: Wound Type: Abrasion R thigh: Wound Type: Abrasion Therapies Weight Bearing: Weight bearing as tolerated Physical Therapy: Eval and Treat Occupational Therapy: Eval and Treat Problem/Diagnosis (1) Generalized weakness: Status: Acute Code(s): R53.1 - Weakness (2) Acute dehydration: Status: Acute Code(s): E86.0 - Dehydration (3) Nausea, vomiting and diarrhea: Status: Acute Code(s): R11.2 - Nausea with vomiting, unspecified; R19.7 - Diarrhea, unspecified Plan # UTI due to Klebsiella and E. coli * WBC is further up to 17 today, from 15 yesterday. Remains on ciprofloxacin. 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 * Continues to have nausea and vomiting. On Zofran. Gastroenterology consulted. Awaiting recommendations. * it is not clear why her wbc keeps trending upwards * will switch antibiotic to IV zosyn based on sensivities. NO other clear source of infection * #Persistent nausea and vomiting: GI consulted. Await recs. #COPD: Not in exacerbation. Breathing treatments bronchodilators. #GERD: On PPI #Debility and weakness: * PT OT on board. Patient has not been very compliant with PT OT. * Patient encouraged to be compliant with them. She does not want to go to a intermediate because she is concerned she will lose her house if she goes on Medicaid. * However she is okay with considering TCU as she has been there before. #Anemia: * Hemoglobin today remains 7.5. Her baseline seems to be around 10. * Iron profile done showed low iron levels with low TIBC and elevated ferritin indicating anemia of chronic disease picture. * stool for occult blood still pending. * She had a colonoscopy on 09/02/2021 which showed anal fissure and congested mucosa in the sigmoid colon, descending colon and splenic flexure, in the transverse colon and at the hepatic flexure with significant ulcerations consistent with ischemic colitis. She also had evidence of moderate diverticulosis in the sigmoid colon. * DVT prophylaxis: SCDs Allergies/Procedures Done in Hospital Allergies cefprozil Allergy (Verified 05/19/23 15:12) Shortness of breath ceftriaxone Allergy (Verified 05/19/23 15:12) Hives clindamycin Allergy (Verified 05/19/23 15:12) Rash enalapril Allergy (Verified 05/19/23 15:12) Other enoxaparin Allergy (Verified 05/19/23 15:12) Rash heparin Allergy (Verified 05/19/23 15:12) Rash levalbuterol Allergy (Verified 05/19/23 15:12) Other morphine Allergy (Verified 05/19/23 15:12) Shortness of breath Penicillins Allergy (Verified 05/19/23 15:12) Anaphylaxis shellfish derived Allergy (Verified 05/19/23 15:12) Anaphylaxis valsartan Allergy (Verified 05/19/23 15:12) Other vancomycin Allergy (Verified 05/19/23 15:12) Rash atorvastatin Adverse Reaction (Verified 05/19/23 15:12) Other rosuvastatin [From Crestor] Adverse Reaction (Verified 05/19/23 15:12) Other Procedures: None Type of Care/Length of Stay Estimated LOS: Convalescent Care Less Than 30 days Type of Care Needed: Skilled Rehab Potential: Fair Prognosis: Fair Additional Orders/Day of Discharge Day of Discharge: 01/31/24 Dietary and Speech 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s Dietitian 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s/Changes: Continue Regular diet to optimize oral intakes Continue 120mL Ensure Clear 4x daily to provide supplemental energy. Discharge Plan Admission Admit Date/Time: 01/21/24 19:22 Primary Reason for Your Visit: intractable nausea and vomiting Attending Provider: Ashly Bone Primary Care Provider: Cody Billings Consulting Providers: Izzy Kearney; Bandar Melissa; Jelani Simpson Instructions Patient Instructions: ED Vomiting (Adult) Discharge Orders/Prescriptions Prescriptions: Continued folic acid 1 mg tablet 1 mg PO DAILY Qty: 30 11RF albuterol sulfate [Ventolin HFA] 90 mcg/actuation Hfa Aerosol Inhaler 1 puff inhalation Q4H PRN PRN (Reason: SHORTNESS OF BREATH) Qty: 0 0RF ondansetron 4 mg Tablet,Disintegrating 4 mg PO Q6H PRN PRN (Reason: NAUSEA) Qty: 0 0RF tramadol 50 mg Tablet 50 mg PO Q6H PRN (Reason: Pain) acetaminophen 325 mg Tablet 975 mg PO TID PRN (Reason: Pain) diphenoxylate-atropine 2.5-0.025 mg tablet 1 tab PO BID Patient Comments: TAKE 1 TABLET BY MOUTH TWICE A DAY NEEDED FOR DIARRHEA pantoprazole 40 mg Tablet,Delayed Release (Dr/Ec) 40 mg PO DAILY Culturelle 10 billion cell Capsule 1 cap PO DAILY cholecalciferol (vitamin D3) 125 mcg (5,000 unit) Tablet 125 mcg PO DAILY loperamide 2 mg capsule 2 mg PO Q12H Patient Comments: TAKE 1 CAPSULE BY MOUTH TWICE A DAY zenpap PO Alfredo (with collagen) 7-7-1.5 gram powder in packet 1 packet PO BID Rx Instructions: mix 1 packet with 8-10 oz liquid ondansetron 4 mg tablet,disintegrating 4 mg PO Q8H Qty: 20 0RF Hold Instructions: MD Ordered Referrals / Follow Up: Cody Billings MD [Primary Care Provider] - Within 2 Weeks Bandar Melissa DO [Med Staff - Active Staff] - Within 1 Week Disposition Disposition (needs filled in before D/C Order can be placed): Home, Self Care
[2024-01-31] MEDS: Pantoprazole Sodium 40 MG Tablet PO (11:04)
[2024-01-31] MEDS: Folic Acid 1 MG Tablet PO (11:04)
[2024-01-31] MEDS: Menthol/Lanolin/Calamine/Znox 113 GM Tube 1 APPLIC TOPICAL (11:04)
[2024-01-31] MEDS: Vancomycin 125 MG/5 ML Susp PO.SYRINGE PO (11:06)
--- NOTE | 2024-01-31 11:08 | DS.PCM_ITS ---
Providers Date of Admission: 01/21/24 Date of Discharge: 01/31/24 Primary Care Physician: Dr. 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 Amador for heels 01/25/24 08:43 Consult: Gastroenterology Routine Consulting Provider: Ra Shinhsaan Reason for Consult: acute on chronic nausea/vomiting EMERGENT Consult: No MD Notified: Yes Date Notified: 01/25/24 Time Notified: 08:45 Method of Notification: Text Reason For Visit: ACUTE NAUSEA VOMITING Diagnosis Discharge Diagnosis (1) Generalized weakness: Status: Acute Code(s): R53.1 - Weakness (2) Acute dehydration: Status: Acute Code(s): E86.0 - Dehydration (3) Nausea, vomiting and diarrhea: Status: Acute Code(s): R11.2 - Nausea with vomiting, unspecified; R19.7 - Diarrhea, unspecified Plan # UTI due to Klebsiella and E. coli * WBC is further up to 17 today, from 15 yesterday. Remains on ciprofloxacin. 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 * Continues to have nausea and vomiting. On Zofran. Gastroenterology c onsulted. Awaiting recommendations. * it is not clear why her wbc keeps trending upwards * will switch antibiotic to IV zosyn based on sensivities. NO other clear source of infection * #Persistent nausea and vomiting: GI consulted. Await recs. #COPD: Not in exacerbation. Breathing treatments bronchodilators. #GERD: On PPI #Debility and weakness: * PT OT on board. Patient has not been very compliant with PT OT. * Patient encouraged to be compliant with them. She does not want to go to a [facility] because she is concerned she will lose her house if she goes on Medicaid. * However she is okay with considering TCU as she has been there before. #Anemia: * Hemoglobin today remains 7.5. Her baseline seems to be around 10. * Iron profile done showed low iron levels with low TIBC and elevated ferritin indicating anemia of chronic disease picture. * stool for occult blood still pending. * She had a colonoscopy on 09/02/2021 which showed anal fissure and congested mucosa in the sigmoid colon, descending colon and splenic flexure, in the transverse colon and at the hepatic flexure with significant ulcerations consistent with ischemic colitis. She also had evidence of moderate di verticulosis in the sigmoid colon. * DVT prophylaxis: SCDs Medications at Discharge Home Medications albuterol sulfate 90 mcg/actuation aerosol inhaler (Ventolin HFA) 1 puff inhalation Q4H PRN PRN SHORTNESS OF BREATH #0 grams 03/25/21 ondansetron 4 mg disintegrating tablet 4 mg PO Q6H PRN PRN NAUSEA #0 tabs 03/25/21 tramadol 50 mg tablet 50 mg PO Q6H PRN Pain 05/18/21 acetaminophen 325 mg tablet 975 mg PO TID PRN Pain 12/31/22 folic acid 1 mg tablet 1 mg PO DAILY supplement #30 tabs 02/15/23 Lactobacillus rhamnosus GG 10 billion cell capsule (Culturelle) 1 cap PO DAILY GUT HEALTH 04/10/23 cholecalciferol (vitamin D3) 125 mcg (5,000 unit) tablet 125 mcg PO DAILY SUPPLEMENT 04/10/23 diphenoxylate-atropine 2.5 mg-0.025 mg tablet 1 tab PO BID DIARRHEA 04/10/23 pantoprazole 40 mg tablet,delayed release 40 mg PO DAILY GERD 04/10/23 ondansetron 4 mg disintegrating tablet 4 mg PO Q8H nausea #20 tabs 08/10/23 arginine 7 gram-glutam 7 gram-CaHMB 1.5 pudf-[id number]-gm-min oral pwd pkt (Alfredo (with collagen)) 1 packet PO BID supplement 01/21/24 loperamide 2 mg capsule 2 mg PO Q12H diarrhea 01/21/24 zenpap PO stomach 01/21/24 Hospital Course Operations None Procedures None Summary of Care Provided Minutes Spent on Discharge: 55 Hospital Course: Patient is a 68-year-old female with past medical history as outlined who was admitted through the ED on 01/21/2024 with a complaint of diarrhea, nausea and vomiting for about 2 weeks prior to admission. Nausea was in response to solids and liquids and subsequently started vomiting and had 4-5 episodes of diarrhea daily. She had not noticed any blood in her stool. She also had hesitancy and frequency with urination as well as some dysuria. She said she had had some sick contacts and felt her gastroenteritis was due to that. 10 that patient had a history of chronic diarrhea as well as intractable nausea and vomiting and had been previously thought to have inflammatory bowel disease and treated with budesonide and sulfasalazine. She was admitted and managed for gastroenteritis as well as UTI. She was started on IV antibiotics. Urine cultures grew Klebsiella and E. coli. Her white cell count was elevated but trended downwards. She was a known carrier of C. difficile and so was started on oral vancomycin as well. Gastroenterology was consulted. Had nausea and vomiting improved. Diarrhea subsequently resolved. Patient worked with therapy but was quite weak and could not do much with therapy. She therefore opted to go to the transitional care unit. She was discharged to transitional care unit on 01/31/2024. Of note, gastroenterology did see her (though there was no note in the records at time of discharge) and recommended that they would follow-up with her in the transitional care unit. Patient was seen and examined prior to discharge. She felt well and had no active complaints. She had an uneventful night. Review of systems otherwise negative. Labs and vitals reviewed. Home medication reviewed and reconciled. Physical Exam Const alert, oriented x3 and no apparent distress Constitutional Narrative: frail, weak General Appearance: cooperative Orientation / Consciousness: awake HEENT normocephalic, head/scalp atraumatic, hearing grossly normal bilaterally, moist oral mucous membranes and oropharynx normal Mouth: oral and palatal mucosa normal Eyes PERRL and EOMs intact bilaterally Neck no lymphadenopathy and supple Lymph Lymphatic: no lymphadenopathy noted and no lymphedema noted Resp normal respiratory effort, normal air movement, no retractions, no use of accessory muscles and clear to auscultation bilaterally Cardio regular rate, regular rhythm, S1 normal heart sound, S2 normal heart sound and n o murmurs GI normal to inspection, nondistended, normoactive bowel sounds, soft to palpation and non-tender Extremity normal capillary refill, no clubbing, cyanosis or edema and no calf tenderness Extremity Narrative: left ankle joint wrapped in bandage General Extremity: no tenderness to palpation of joints or extremities Skin General Skin Exam: no breakdown Neuro CN's II-XII intact bilaterally, no focal motor deficits and no sensory deficits noted Motor Exam: strength 5/5 throughout and general weakness Psych thought process normal, cooperative and affect normal Appearance: appropriate Medical Records Data Medical Nutrition Assessment Dietitian: Malnutrition Criteria Met Start: 01/22/24 14:19 Freq: Status: Active Protocol: Document 01/22/24 14:20 LO (Rec: 01/22/24 14:20 LO [id number]) Nutrition Malnutrition Evidence of Malnutrition Exists Yes Malnutrition (severe): Chronic Evidenced By Weight Loss (Severe),Physical Changes (Severe) Intake Problem Inadequate Oral Intake Etiology related to suboptimal appetite , nausea, vomiting, diarrhea Signs/Symptoms as evidenced by pt report of decreased PO intakes x 2 weeks Status Active Problem Clinical Problem Chronic Disease or Condition Related Malnutrition Etiology severe related to unknown etiology Signs/Symptoms as evidenced by 27.6lbs (20%) weight loss in 9 months and severe fat/muscle loss to temporal and orbital regions. Status Active Problem 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 Dietitian 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s/Changes Continue Regular diet to optimize oral intakes RD will change 120mL EPHP TID to 4x daily to provide supplemental energy. Weight / BMI Weight Weight: 115 lb 4.828 oz Body Mass Index (BMI) 19.7 ABG / Lab / Microbiology Data 01/31/24 05:57 01/31/24 05:57 Laboratory: Laboratory Results - last 24 hr 01/31/24 05:57: WBC 16.2 H, RBC 2.60 L, Hgb 7.5 L, Hct 24.2 L, MCV 93.1, MCH 28.8, MCHC 31.0 L, RDW Std Deviation 45.8 H, RDW Coeff of Xin 13.6, Plt Count 359, MPV 9.9, Immature Gran % (Auto) 0.900, Neut % (Auto) 59.6, Lymph % (Auto) 30.6, [place] % (Auto) 5.6, Eos % (Auto) 2.2, Baso % (Auto) 1.1 H, Absolute Neuts (auto) 9.7 H, Absolute Lymphs (auto) 4.96 H, Nucleated RBC % 0, Sodium 132 L, P otassium 4.9, Chloride 107, Carbon Dioxide 20.0 L, Anion Gap 5, BUN 16, Creatinine 2.80 H, Estim Creat Clear Calc 16.10, Est GFR (MDRD) Af Amer 22 L, Est GFR (MDRD) Non-Af 18 L, BUN/Creatinine Ratio 5.7 L, Glucose 87, Calcium 7.7 L Microbiology: Microbiology 01/30/24 09:18 Stool Stool Occult Blood (SONG) - Final 01/21/24 17:34 Urine, Catheterized Urine Culture - Final Escherichia coli Klebsiella pneumoniae sp pneum 01/22/24 06:00 Stool Enteric Bacteriology - Final 01/21/24 17:22 Mucosa - Nose SARS-CoV-2, Influenza & RSV (PCR) - Final D/C Instructions Discharge Diet: Low fat / Low cholesterol Discharge Activity: Return to Normal Activity Weight Bearing Status: Weight bearing as tolerated Call your doctor if you observe: Fever of 101 or Higher, Shortness of breath, Dizziness, Swelling in the ankles and Chest pain Meaningful Use Info Meaningful Use Diagnoses (Choose all that apply): None applicable Discharge Plan Admission Admit Date/Time: 01/21/24 19:22 Primary Reason for Your Visit: intractable nausea and vomiting Attending Provider: Ashly Bone Primary Care Provider: Cody Billings Consulting Providers: Izzy Kearney; Bandar Melissa; Jelani Simpson Instructions Patient Instructions: ED Vomiting (Adult) Discharge Orders/Prescriptions Prescriptions: Continued folic acid 1 mg tablet 1 mg PO DAILY Qty: 30 11RF albuterol sulfate [Ventolin HFA] 90 mcg/actuation Hfa Aerosol Inhaler 1 puff inhalation Q4H PRN PRN (Reason: SHORTNESS OF BREATH) Qty: 0 0RF ondansetron 4 mg Tablet,Disintegrating 4 mg PO Q6H PRN PRN (Reason: NAUSEA) Qty: 0 0RF tramadol 50 mg Tablet 50 mg PO Q6H PRN (Reason: Pain) acetaminophen 325 mg Tablet 975 mg PO TID PRN (Reason: Pain) diphenoxylate-atropine 2.5-0.025 mg tablet 1 tab PO BID Patient Comments: TAKE 1 TABLET BY MOUTH TWICE A DAY NEEDED FOR DIARRHEA pantoprazole 40 mg Tablet,Delayed Release (Dr/Ec) 40 mg PO DAILY Culturelle 10 billion cell Capsule 1 cap PO DAILY cholecalciferol (vitamin D3) 125 mcg (5,000 unit) Tablet 125 mcg PO DAILY loperamide 2 mg capsule 2 mg PO Q12H Patient Comments: TAKE 1 CAPSULE BY MOUTH TWICE A DAY zenpap PO Alfredo (with collagen) 7-7-1.5 gram powder in packet 1 packet PO BID Rx Instructions: mix 1 packet with 8-10 oz liquid ondansetron 4 mg tablet,disintegrating 4 mg PO Q8H Qty: 20 0RF Hold Instructions: MD Ordered Referrals / Follow Up: Cody Billings MD [Primary Care Provider] - Within 2 Weeks Bandar Melissa DO [Med Staff - Active Staff] - Within 1 Week Disposition Disposition (needs filled in before D/C Order can be placed): Home, Self Care Charges/Coding Visit Charges Inpatient E&M: 75430 Disch Hosp >30min
--- NOTE | 2024-01-31 12:19 | CM.UR ---
Social Work Per physician, pt is ready for discharge today. TCU notified and they are able to accept pt today. Discharge orders faxed to TCU. SW met with pt and updated on dc and pt is agreeable. Phone call to pt sister Jackie and notified of discharge to TCU today. Nursing notified. Disposition: TCU, skilled level of care LETY Yu
[2024-01-31 13:26] VITALS: BP 150/79; PULSE 66; RESP 18; TEMP 36.8; O2SAT 98
== END 2024-01-31 13:37 | disposition skilled nursing facility (03) | DRG 391 ==
LOC: ED 19:14 → MS3 19:40
PROVIDERS: Family Medicine; Admitting Provider Internal Medicine; Emergency Provider Emergency Medicine; PCP Family Medicine; Visit Provider Student in an Organized Health Care Education/Training Program
DX: K52.9 Noninfective gastroenteritis and colitis, unspecified (principal); E43 Unspecified severe protein-calorie malnutrition; N39.0 Urinary tract infection, site not specified; Z68.1 Body mass index [BMI] 19.9 or less, adult; D63.8 Anemia in other chronic diseases classified elsewhere; E11.42 Type 2 diabetes mellitus with diabetic polyneuropathy; B96.1 Klebsiella pneumoniae [K. pneumoniae] as the cause of diseases classified elsewhere; B96.20 Unspecified Escherichia coli [E. coli] as the cause of diseases classified elsewhere; J44.9 Chronic obstructive pulmonary disease, unspecified; Z89.432 Acquired absence of left foot; K21.9 Gastro-esophageal reflux disease without esophagitis; I25.2 Old myocardial infarction; R53.1 Weakness; R53.81 Other malaise; Z22.1 Carrier of other intestinal infectious diseases; Z91.198 Patient's noncompliance with other medical treatment and regimen for other reason; Z79.2 Long term (current) use of antibiotics; Z79.899 Other long term (current) drug therapy; Z86.718 Personal history of other venous thrombosis and embolism; Z86.73 Personal history of transient ischemic attack (TIA), and cerebral infarction without residual deficits
CPT/HCPCS: 36415; 71045; 80048; 80053; 81001; 82248; 82274; 82728; 82962; 83036; 83540; 83550; 83735; 84100; 84443; 85025; 85610; 87077; 87086; 87088; 87186; 87329; 87506; 87631; 93005; 97110; 97162; 97166; 97530; 97535; 97803; 99285; J7030; J7040; J7050; P9612; A4216; J0744; J2405

== ENCOUNTER 2024-01-31 13:50 | Inpatient (IN) | payer MEDICARE, OTHER, SELFPAY ==
[2024-01-31 14:07] VITALS: BP 150/81; PULSE 76; RESP 18; TEMP 36.6; O2SAT 99; BMI 18.3
[2024-01-31] MEDS: Juven (unflavored) Packet 1 PACKET PO (16:08)
--- NOTE | 2024-01-31 18:27 | NURSING ---
NOTIFIED ON CONSULT FOR PT BY PHONE,DUE TO INTRACTABLE N/V/D.
--- NOTE | 2024-01-31 19:02 | PCM.HP.STD ---
HPI - General General Date of Admission: 01/31/24 Date of Service: 01/31/24 Chief Complaint: Here for rehabilitation. HPI Narrative 01/21/2024 RED PRICE, is a 68 Female who presents to [facility] ED with nausea, vomiting, diarrhea. Weakness, chronic diarrhea x 8 years. nausea/vomiting/diarrhea x 2 weeks, dehydrated, weak, unable to keep oral fluids down, mild dysuria. Zofran, IV fluids given. Urinalysis c/w UTI, urine culture sent, multiple antibiotic allergies. 01/21/2024 Admit to [facility]. IV fluids for dehydration, chronic diarrhea. Macrobid, renal ultrasound for UTI. IV fluids for ANNIKA. 01/22/2024 Nausea, loose stools. Enteric panel negative. Urine culture GNR, continue Macrobid. Diarrhea chronic. 01/23/2024 Doing a little better. Bactrim for Klebsiella, E. Coli UTI. 01/24/2024 More nausea. Vancomycin PO for c. diff carrier while on antibiotics. 01/25/2024 Nausea, struggling to eat. Done with ATB's for UTI. Vancomycin 125mg bid for c. diff prophylaxis. Continue IV fluids. 01/26/[address] Melissa consulted for intractable nausea. 01/27/2024 Nausea, trial of food today. Dr. Melissa pending. 01/28/2024 Nausea, ate little bit, WBC up. Dr. Melissa pending. 01/29/2024 Nausea/vomiting on Zofran. PT/OT for TCU. Check stool for blood, hemoglobin 7.5, baseline 10. 01/30/2024 Feeling better, nausea/vomiting improved. WBC 17 up, change Cipro to Zosyn IV for Klebsiella UTI. PT/OT TCU. 01/31/2024 Admit to TCU with debility, here for rehabilitation, strengthening, prior to discharge home alone. [facility] Medical History (Updated 01/31/24 @ 19:[address] Enrique Ivy MD) Brain tumor (benign) Chronic diarrhea Debility Deep venous thrombosis of distal end of left lower extremity Diabetic foot ulcer Gastroesophageal reflux disease Gastroparesis History of cerebrovascular accident History of deep venous thrombosis (DVT) of distal vein of left lower extremity History of ischemic colitis History of myocardial infarction History of pneumonia Migraine Non-pressure chronic ulcer of other part of right foot with fat layer exposed Osteoarthritis of cervical and lumbar spine PAD (peripheral artery disease) Type 2 diabetes mellitus with diabetic polyneuropathy Ulcer of amputation stump of foot Wound of left foot Home Medications albuterol sulfate 90 mcg/actuation aerosol inhaler (Ventolin HFA) 1 puff inhalation Q4H PRN PRN SHORTNESS OF BREATH #0 grams 03/25/21 [Rx Last Taken 2 Weeks Ago ~03/27/23] ondansetron 4 mg disintegrating tablet 4 mg PO Q6H PRN PRN NAUSEA #0 tabs 03/25/21 [Rx Last Taken 04/10/23] tramadol 50 mg tablet 50 mg PO Q6H PRN Pain 05/18/21 [History Last Taken Unknown] acetaminophen 325 mg tablet 975 mg PO TID PRN Pain 12/31/22 [History Last Taken Unknown] folic acid 1 mg tablet 1 mg PO DAILY supplement #30 tabs 02/15/23 [Rx Last Taken 04/09/23] Lactobacillus rhamnosus GG 10 billion cell capsule (Culturelle) 1 cap PO DAILY GUT HEALTH 04/10/23 [History Last Taken 04/09/23] cholecalciferol (vitamin D3) 125 mcg (5,000 unit) tablet 125 mcg PO DAILY SUPPLEMENT 04/10/23 [History Last Taken 04/09/23] diphenoxylate-atropine 2.5 mg-0.025 mg tablet 1 tab PO BID DIARRHEA 04/10/23 [History Last Taken 04/10/23] pantoprazole 40 mg tablet,delayed release 40 mg PO DAILY GERD 04/10/23 [History Last Taken 04/10/23] ondansetron 4 mg disintegrating tablet 4 mg PO Q8H nausea #20 tabs 08/10/23 [Rx Last Taken Unknown] arginine 7 gram-glutam 7 gram-CaHMB 1.5 cnwx-qvhrx-hl-min oral pwd pkt (Alfredo (with collagen)) 1 packet PO BID supplement 01/21/24 [History Last Taken Unknown] loperamide 2 mg capsule 2 mg PO Q12H diarrhea 01/21/24 [History Last Taken Unknown] zenpap PO stomach 01/21/24 [History Last Taken Unknown] Allergy/AdvReac Type Severity Reaction Status Date / Time cefprozil Allergy Shortness Verified 05/19/23 15:12 of breath ceftriaxone Allergy Hives Verified 05/19/23 15:12 clindamycin Allergy Rash Verified 05/19/23 15:12 enalapril Allergy Other Verified 05/19/23 15:12 enoxaparin Allergy Rash Verified 05/19/23 15:12 heparin Allergy Rash Verified 05/19/23 15:12 levalbuterol Allergy Other Verified 05/19/23 15:12 morphine Allergy Shortness Verified 05/19/23 15:12 of breath Penicillins Allergy Anaphylaxis Verified 05/19/23 15:12 shellfish derived Allergy Anaphylaxis Verified 05/19/23 15:12 valsartan Allergy Other Verified 05/19/23 15:12 vancomycin Allergy Rash Verified 05/19/23 15:12 atorvastatin AdvReac Other Verified 05/19/23 15:12 rosuvastatin [From Crestor] AdvReac Other Verified 05/19/23 15:12 Family History Mother Cancer Lung CA w/ tobacco use history. Diabetes COPD (chronic obstructive pulmonary disease) Father Cancer Lung CA w/ tobacco use history. Diabetes COPD (chronic obstructive pulmonary disease) Heart disease Surgical History History of appendectomy History of eye surgery History of foot surgery History of lumpectomy History of tubal ligation Status post transmetatarsal amputation of left foot Tubal ligation status Social History household members: none Smoking Status: Never smoker alcohol intake: never substance use type: does not use ROS Constitutional Constitutional: Denies chills, fever(s) or weight gain ENT HEENT: Denies headache(s), nasal congestion or nasal discharge Cardiovascular Cardiovascular: Denies chest pain or palpitations Respiratory/Chest Respiratory/Chest: Denies cough, excessive phlegm production or shortness of breath with exertion Gastrointestinal Gastrointestinal: Reports nausea and vomiting; Denies abdominal pain Genitourinary Genitourinary: Denies dysuria Musculoskeletal Musculoskeletal: Denies joint pain or joint swelling Integumentary Integumentary: Denies rash or wounds Neurologic Neurologic: Denies focal weakness, numbness or tingling Psychiatric Psychiatric: Denies anxiety, auditory hallucinations, depression, homicidal ideation or suicidal ideation Vital Signs Vital Signs Vital Signs: 01/31/24 14:07 01/31/24 14:07 Temperature 97.8 F Temperature Source Temporal Pulse Rate 76 Pulse Rhythm Regular Pulse Strength Normal (2+) Respiratory Rate 18 Respiratory Effort Normal Non-Labored Respiratory Depth Normal Respiratory Pattern Normal Blood Pressure 150/81 H Blood Pressure Mean 104 Blood Pressure Source Monitor Blood Pressure Position Sitting Blood Pressure Location Left Arm Pulse Ox 99 Oxygen Delivery Method Room Air Room Air Weight Weight: 48.58 kg Body Mass Index (BMI) 18.3 Physical Exam Const alert General Appearance: cooperative HEENT normocephalic Eyes PERRL and EOMs intact bilaterally Neck supple, no JVD and no carotid bruits Resp normal respiratory effort, normal air movement and clear to auscultation bilaterally Cardio regular rate and regular rhythm GI normal to inspection, nondistended, normoactive bowel sounds, non-tender and non-distended Extremity normal capillary refill General Extremity: Negative for edema Skin no rashes or lesions noted General Skin Exam: no breakdown Psych affect normal Appearance: appropriate Assessment & Plan Assessment/Plan (1) Debility: (2) Nausea & vomiting: (3) Diarrhea: QUALIFIERS: Diarrhea type: functional diarrhea Qualified Code(s): K59.1 - Functional diarrhea (4) Urinary tract infection: (5) Acute kidney injury: (6) Dehydration: (7) Acute anemia: (8) Diabetes: (9) DVT (deep venous thrombosis): (10) Stroke: (11) Microscopic colitis: (12) Gastroesophageal reflux disease: (13) Chronic diarrhea: (14) Clostridium difficile carrier: (15) History of benign brain tumor: PLAN: Plan 68 year old female with below past medical history hospitalized for nausea, vomiting, diarrhea, ANNIKA, dehydration, complicated by UTI, anemia, admitted to TCU with debility, here for rehabilitation, strengthening, prior to discharge home alone. Debility - PT/OT. Pain - Tylenol 1000mg q6 prn pain (1-5), Tramadol 50mg q6 prn pain (6-10). Bowel - diarrhea, monitor. Adult immunization - Administer pneumonia vaccine, covid vaccine, flu vaccine as appropriate. DVT prophylaxis - Hold, anemia. COPD - Albuterol 1 uff q4 prn. Vitamin D deficiency - D3 125mcg daily. Folate deficiency - Folic acid 1mg daily. Nutrition - Alfredo 1 packet bidcm. GI prophylaxis - Lactobacillus 1 capsule daily. Nausea/vomiting - Zofran odt 4mg q6h prn, consult Dr. Melissa for expert management. GERD - Pantoprazole 40mg daily. C. diff carrier - Vancomycin 125mg bid x 5 days.
[2024-01-31] MEDS: Vancomycin 125 MG/5 ML Susp PO.SYRINGE PO (21:11)
[2024-01-31] MEDS: Acetaminophen 500 MG Tablet 1000 MG PO (21:12)
[2024-02-01 05:47] LABS: Absolute Lymphocyte Count 4.36 X10^3/uL (0.83-4.51); Basophil# 0.14 X10^3/uL; Basophil% 1.1 % (0-1); Eosinophil# 0.26 X10^3/uL; Eosinophils% 2.1 % (0-5); Hematocrit 23.4 % (37-47); Hemoglobin 7.3 g/dL (12.0-15.0); Lymphocyte # 4.36 X10^3/ul (0.83-4.51); Lymphocyte % 34.8 % (19-41); Mean Corp Hgb Conc 31.2 g/dL (32-36); Mean Corpuscular Hgb 28.9 pg (27.0-32.0); Mean Corpuscular Volume 92.5 fL (81-99); Mean Platelet Vol. 10.2 fl (6.2-12.0); Monocyte# 0.68 X10^3/uL; Monocyte% 5.4 % (0-10); NRBC Flagged by Analyzer 0 % (0-5); Neutrophil # 7.02 X10^3/uL (2.7-7.7); Neutrophil % 56.1 % (47-70); Platelet Count 375 K/mm3 (150-450); RBC Distribution Width CV 13.8 % (11.6-14.6); RBC Distribution Width SD 46.3 fl (35.1-43.9); Red Blood Count 2.53 M/mm3 (4.2-5.4); White Blood Count 12.5 K/mm3 (4.4-11.0)
[2024-02-01 06:41] LABS: Anion Gap 6 (5-15); BUN 20 mg/dL (7-18); BUN/Creat Ratio 6.5 RATIO (10-20); Calcium,Total 7.8 mg/dL (8.5-10.1); Chloride 108 mmol/L (98-107); Creatinine, Serum 3.08 mg/dL (0.55-1.02); EST Glomerular Filtration Rate 16 mL/min (>60); Est Glom Filt Rate - Afr Amer 19 mL/min (>60); Estimated Creatinine Clearance 13.59 ml/min; Glucose 92 mg/dL (74-106); Potassium 4.7 mmol/L (3.5-5.1); Sodium Level 132 mmol/L (136-145)
--- NOTE | 2024-02-01 07:34 | US_ITS ---
STUDY: RENAL ULTRASOUND - COMPLETE REASON FOR EXAM: Female, 68 years old. ANNIKA TECHNIQUE: Ultrasound evaluation of the kidneys was performed with real-time and static levy-scale imaging. COMPARISON: None. FINDINGS: RIGHT KIDNEY: Normal location of the right kidney, which is normal in size. The right kidney measures 12.4 cm. . There is a normal cortex of the right kidney. There is no right renal mass or cyst. There are no right renal calculi. There is no right hydronephrosis. DISTAL RIGHT URETER: There is non-visualization of the distal right ureter. There is no demonstrated right ureterovesical junction calculus. There is no demonstrated right ureteral jet. LEFT KIDNEY: Normal location of the left kidney, which is normal in size. The left kidney measures 12.6 cm. . There is a normal cortex of the left kidney. There is no left renal mass or cyst. There are no left renal calculi. There is mild hydronephrosis of the left kidney. DISTAL LEFT URETER: There is non-visualization of the distal left ureter. There is no demonstrated left ureterovesical junction calculus. There is no demonstrated left ureteral jet. AORTA: There is obscuration of the abdominal aorta by overlying bowel gas I.V.C.: It is not visualized. There is too much overlying bowel gas. BLADDER: The distended urinary bladder has a volume in cc of 137. There is a diffusely thickened wall of the distended bladder. Debris layering in the base of the urinary bladder There are no demonstrated bladder calculi. US/Kidney and Bladder IMPRESSION: Mild left hydronephrosis. Debris in the urinary bladder. Electronically Signed: Roberto Pennington MD at 18:42 EDT ,
--- NOTE | 2024-02-01 09:11 | NURSING ---
NOTIFIED OF PT HGB 7.3 AND WILL GET BLOOD ON 02/02/24. PER SURGERY WILL STILL DO SCOPE TODAY 02/01/24. RN AWARE
[2024-02-01] MEDS: Folic Acid 1 MG Tablet PO (09:25)
[2024-02-01] MEDS: Pantoprazole Sodium 40 MG Tablet PO (09:26)
[2024-02-01] MEDS: Cholecalciferol (Vit D3) 125 MCG CAPSULE (5,000 UNITS) PO (09:26)
[2024-02-01] MEDS: Lactobacillis Acidophilus 1 CAP PO (09:26)
[2024-02-01] MEDS: Vancomycin 125 MG/5 ML Susp PO.SYRINGE PO ×2 (09:30→20:21)
--- NOTE | 2024-02-01 10:19 | NURSING ---
Infusion center able to take patient this morning to give blood. Updated endo, they will move scope to tomorrow. NPO tonight at midnight.
--- NOTE | 2024-02-01 10:56 | NURSING ---
PT TRANSPORTED BY BED TO [facility]FUSION CENTER AT 1040 AM FOR BLOOD. PT WILL HAVE SCOPE DONE ON 02/02/24. PT TO BE NPO AT MIDNIGHT.
--- NOTE | 2024-02-01 13:22 | NURSING ---
SONIA Benitez came to see patient, let her know patient was off floor for transfusion. Verbal order for 1L NS @50ml/hr
--- NOTE | 2024-02-01 14:08 | NURSING ---
SURGERY CALLED AND STATED PT IS TO BE NPO AT MIDNIGHT FOR UPPER SCOPE. BUT CAN HAVE PROTONIX AND ULTRAM,TYLENOL IF NEEDED WITH WATER. KEEP IV IN. SURGERY WILL CALL LATER AND LET US KNOW THE TIME. RN AWARE
[2024-02-01 16:00] VITALS: BP 139/61; PULSE 68; RESP 16; TEMP 36.9; O2SAT 96
[2024-02-01 16:30] VITALS: PULSE 67; RESP 16; O2SAT 98
[2024-02-01] MEDS: 0.9% Normal Saline (1000mL) 1,000 ML 50 ML IV (16:54)
[2024-02-01] MEDS: Tuberculin,Purif.prot.deriv. 50 TU/ML Vial 0.1 ML ID (16:59)
[2024-02-01] MEDS: Juven (unflavored) Packet 1 PACKET PO (17:01)
[2024-02-01] MEDS: Ensure Clear 120 ML Liquid PO ×2 (17:04→20:21)
--- NOTE | 2024-02-01 17:12 | NURSING ---
PT RETURNED TO FLOOR BY BED AT 1625 FROM [facility].
[2024-02-01 18:16] LABS: Internal QC Validated? YES +Cl - CLEAR BKGD; Pregnancy, Urine Negative Negative; Record Kit Lot#,Urine Preg HCG0000718086
[2024-02-01 18:23] LABS: Urine Sodium 103 mmol/L (Not Establ.)
[2024-02-01 18:30] LABS: Creatinine, Urine (random) < 13.00 mg/dL (NO RANGE EST.)
[2024-02-01] MEDS: Menthol/Lanolin/Calamine/Znox 113 GM Tube 1 APPLIC TOPICAL (20:21)
[2024-02-02] MEDS: Pantoprazole Sodium 40 MG Tablet PO (05:54)
[2024-02-02] MEDS: Acetaminophen 500 MG Tablet 1000 MG PO (05:54)
[2024-02-02] MEDS: Menthol/Lanolin/Calamine/Znox 113 GM Tube 1 APPLIC TOPICAL ×2 (09:41→20:35)
--- NOTE | 2024-02-02 10:11 | PCM.PN.DRR ---
Documented by User: Augie Potter 02/02/24 10:23 TCU RX Drug Regimen Review Subjective/Objective Subjective/Objective: Subjective: TCU admission note. 68 year old female with below past medical history hospitalized for nausea, vomiting, diarrhea, ANNIKA, dehydration, complicated by UTI, anemia, admitted to TCU with debility, here for rehabilitation, strengthening, prior to discharge home alone. Objective: Allergies cefprozil Allergy (Verified 02/01/24 11:16) Shortness of breath ceftriaxone Allergy (Verified 02/01/24 11:16) Hives clindamycin Allergy (Verified 02/01/24 11:16) Rash enalapril Allergy (Verified 02/01/24 11:16) Other enoxaparin Allergy (Verified 02/01/24 11:16) Rash heparin Allergy (Verified 02/01/24 11:16) Rash levalbuterol Allergy (Verified 02/01/24 11:16) Other morphine Allergy (Verified 02/01/24 11:16) Shortness of breath Penicillins Allergy (Verified 02/01/24 11:16) Anaphylaxis valsartan Allergy (Verified 02/01/24 11:16) Other vancomycin Allergy (Verified 02/01/24 11:16) Rash pt states oral preparation she has no issues with, but iv she develops a rash atorvastatin Adverse Reaction (Verified 02/01/24 11:16) Other rosuvastatin [From Crestor] Adverse Reaction (Verified 02/01/24 11:16) Other Current Medications Generic Name Dose Route Start Last Admin Trade Name Freq PRN Reason Stop Dose Admin Acetaminophen 1,000 mg 01/31/24 19:27 02/02/24 05:54 Acetaminophen 500 Mg Tablet PO 1,000 mg Q6H PRN PRN Administration Pain Score 1-5 Albuterol Sulfate 1 puff 01/31/24 15:30 Albuterol Ih (6.7 Gm) 1 Puff Inhaler INHALATION Q4H PRN [facility] Calamine/Phenol 1 applic 02/01/24 22:00 02/02/24 09:41 Menthol/Lanolin/Calamine/Znox 113 Gm Tube TOPICAL 1 applic BID HEMA Administration Protocol Cholecalciferol 125 mcg 02/01/24 10:00 02/01/24 09:26 Cholecalciferol (Vit D3) 125 Mcg Capsule (5,000 Units) PO 125 mcg DAILY HEMA Administration Folic Acid 1 mg 02/01/24 08:00 02/02/24 08:59 Folic Acid 1 Mg Tablet PO Not Given DAILYCM [facility] L-Arginine/L-Glutamine/Calcium HMB 1 packet 01/31/24 17:00 02/02/24 08:59 Alfredo (Unflavored) Packet PO Not Given BIDCM [facility] Nutritional Formula (Lactose Free) 120 ml 02/01/24 12:00 02/02/24 05:34 Ensure Clear 120 Ml Liquid PO Not Given 4X/DAY [facility] Ondansetron HCl 4 mg 01/31/24 14:16 Ondansetron Odt 4 Mg Tablet PO Q6H PRN PRN NAUSEA Pantoprazole Sodium 40 mg 02/01/24 10:00 02/02/24 05:54 Pantoprazole Sodium 40 Mg Tablet PO 40 mg DAILY HEMA Administration Sodium Chloride 10 - 40 ml 01/31/24 14:26 0.9% Saline Lock 10 Ml Syringe IV UD PRN SALINE FLUSH Tramadol HCl 50 mg 01/31/24 19:26 Tramadol 50 Mg Tablet PO Q6H PRN PRN Pain Score 6-10 or Pre PT/OT Tuberculin PPD 0.1 ml 02/08/24 10:00 Tuberculin,Purif.Prot.Deriv. 50 Tu/Ml Vial ID 02/08/24 10:01 X1 ONE Vancomycin HCl 125 mg 01/31/24 22:00 02/01/24 20:21 Vancomycin 125 Mg/5 Ml Susp Po.Syringe PO 02/05/24 22:01 125 mg BID EHMA Administration Problem List (Updated 01/31/24 @ 19:[address] 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) Diarrhea (Chronic) Vital Signs Temp Pulse Resp BP Pulse Ox O2 Del Method 98.5 F 67 16 139/61 H 98 Room Air 02/01/24 16:00 02/01/24 16:30 02/01/24 16:30 02/01/24 16:00 02/01/24 16:30 02/01/24 16:30 Oxygen Delivery Method Room Air Weight: 48.58 kg Body Mass Index (BMI) 18.3 Sodium 132 mmol/L (136-145) L 02/01/24 05:13 Potassium 4.7 mmol/L (3.5-5.1) 02/01/24 05:13 Chloride 108 mmol/L (98-107) H 02/01/24 05:13 Carbon Dioxide 18.0 mmol/L (21.0-32.0) L 02/01/24 05:13 Anion Gap 6 (5-15) 02/01/24 05:13 BUN 20 mg/dL (7-18) H 02/01/24 05:13 Creatinine 3.08 mg/dL (0.55-1.02) H 02/01/24 05:13 Est GFR (MDRD) Af Amer 19 mL/min (>60) L 02/01/24 05:13 Est GFR (MDRD) Non-Af 16 mL/min (>60) L 02/01/24 05:13 BUN/Creatinine Ratio 6.5 RATIO (10-20) L 02/01/24 05:13 Glucose 92 mg/dL (74-106) 02/01/24 05:13 Assessment/Plan: 1. Pain: acetaminophen 1000 mg PO Q6H PRN pain (1-5), tramadol 50 mg PO Q6H PRN pain (6-10). The patient has required 2 doses of PRN acetaminophen and 0 doses of PRN tramadol so far this admission. Please continue to monitor for PRN medication usage, pain levels, LFTs (AST/ALT = 28/11 U/L on 01/22/24), for constipation, for drowsiness/dizziness, for respiratory depression, and for syncope/ataxia/falls. 2. COPD: albuterol inhaler 1 puff Q4H PRN shortness of breath. The patient has not required any PRN doses of albuterol so far this admission. Please continue to monitor for PRN medication usage, shortness of breath, and for s/s of COPD exacerbation such as increased cough, shortness of breath, and sputum production/purulence. 3. GERD: pantoprazole 40 mg PO daily. Please continue to monitor for s/s of GERD, for diarrhea that could indicate clostridium difficile infection, and for s/s of bone resorption issues such as fractures. 4. Nausea/vomiting: ondansetron 4 mg PO Q6H PRN nausea/vomiting. The patient has not required any PRN ondansetron so far this admission. Please continue to monitor for PRN medication usage and nausea/vomiting. 5. Clostridium difficile carrier: vancomycin oral liquid 125 mg PO BID through 02/05/24. Please continue to monitor for diarrhea, for abdominal pain/cramping, for s/s of systemic infection such as increased WBC (WBC currently = 12.5 K/mm3), and for fevers (current temp 98.3F). 6. Vitamin D deficiency: cholecalciferol 125 mcg PO daily. Please continue to monitor for s/s of vitamin D deficiency as well as vitamin D levels (no recent vitamin D levels documented). Please consider ordering a vitamin D level to assess patient's repletion level. 7. Folate deficiency: folic acid 1 mg daily with meals. Please continue to monitor for s/s of folate deficiency. 8. GI prophylaxis: lactobacillus 1 capsule PO daily. Please continue to monitor for abdominal pain and diarrhea. 9. Nutrition: Alfredo 1 packet PO BID with meals, ensure clear 120 mL PO 4 x/day. Please continue to monitor overall nutritional status. Assessment/Plan for indications treated with psychotropic medications: NA Medical chart and medication regimen reviewed. The following medication irregularities or issues were identified: 1. Vitamin D deficiency: cholecalciferol 125 mcg PO daily. Please consider ordering a vitamin D level to assess patient's repletion level. Date Date of Note:: 02/02/24 Documented by User: Dr. Enrique Ivy MD 02/02/24 11:40 TCU RX Drug Regimen Review Provider Comments Provider responsibility Provider Comments to 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s by Pharmacy: Agree
--- NOTE | 2024-02-02 10:19 | CON.PCM_ITS ---
Assessment & Plan Assessment/Plan (1) Hydronephrosis: (2) Urinary tract infection: (3) Urge incontinence: (4) Acute renal insufficiency: PLAN: Plan await plans regarding the tumor that is compressing the left ureter. She is not having pain from this, the only symptom is increasing creatinine which is likely multifactorial. I am waiting on her post void residual If surgery is planned for the tumor, I will be available for stent insertion. If no intervention is planned, will discuss again with her the option of placing a stent. This may or may not improve her renal function given the degree of obstruction and that it has been occurring slowly over time. Continue supportive care for incontinence at this time. I will discuss with the team tomorrow. No plans for stent today. HPI Consult Data Date of Consult: 02/04/24 HPI Narrative Reason for Consultation: hydronephrosis with renal insufficiency HPI Narrative: RED PRICE, is a 68 F who is here with dehydration, chronic diarrhea with nausea and weight loss. Her renal function is decreasing and renal ultrasound showed mild hydronephrosis on the left. She denies any left flank pain, hematuria or dysuria. She has chronic urinary tract infections likely related to the diarrhea. She has been having significant enuresis during sleep. She does not feel she has trouble emptying her bladder. She reports that a few months ago when she was admitted at an outlying institution, there was some talk about a tumor in her colon, but she does not recall a plan being made for this. We discussed that her kidney function decreasing is likely multifactorial, and I will be available to provide better drainage for the left kidney with a stent if that decision is made with her and the care team. [facility] Medical History (Updated 02/04/24 @ 09:[address] 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 PAD (peripheral artery disease) Type 2 diabetes mellitus with diabetic polyneuropathy Ulcer of amputation stump of foot Urge incontinence Wound of left foot Home Medications albuterol sulfate 90 mcg/actuation aerosol inhaler (Ventolin HFA) 1 puff inhalation Q4H PRN PRN SHORTNESS OF BREATH #0 grams 03/25/21 [Rx Last Taken 2 Weeks Ago ~03/27/23] ondansetron 4 mg disintegrating tablet 4 mg PO Q6H PRN PRN NAUSEA #0 tabs 03/25/21 [Rx Last Taken 04/10/23] tramadol 50 mg tablet 50 mg PO Q6H PRN Pain 05/18/21 [History Last Taken Unknown] acetaminophen 325 mg tablet 975 mg PO TID PRN Pain 12/31/22 [History Last Taken 02/02/24 06:00] folic acid 1 mg tablet 1 mg PO DAILY supplement #30 tabs 02/15/23 [Rx Last Taken 04/09/23] Lactobacillus rhamnosus GG 10 billion cell capsule (Culturelle) 1 cap PO DAILY [facility] 04/10/23 [History Last Taken 04/09/23] cholecalciferol (vitamin D3) 125 mcg (5,000 unit) tablet 125 mcg PO DAILY SUPPLEMENT 04/10/23 [History Last Taken 04/09/23] diphenoxylate-atropine 2.5 mg-0.025 mg tablet 1 tab PO BID DIARRHEA 04/10/23 [History Last Taken 04/10/23] pantoprazole 40 mg tablet,delayed release 40 mg PO DAILY GERD 04/10/23 [History Last Taken 02/02/24 06:00] ondansetron 4 mg disintegrating tablet 4 mg PO Q8H nausea #20 tabs 08/10/23 [Rx Last Taken Unknown] arginine 7 gram-glutam 7 gram-CaHMB 1.5 itos-bixis-br-min oral pwd pkt (Alfredo (with collagen)) 1 packet PO BID supplement 01/21/24 [History Last Taken Unknown] loperamide 2 mg capsule 2 mg PO Q12H diarrhea 01/21/24 [History Last Taken Unknown] zenpap 1 dose PO stomach 01/21/24 [History Last Taken Unknown] vancomycin 125 mg capsule 125 mg PO BID 02/01/24 [History Last Taken Unknown] Allergy/AdvReac Type Severity Reaction Status Date / Time cefprozil Allergy Shortness Verified 02/01/24 11:16 of breath ceftriaxone Allergy Hives Verified 02/01/24 11:16 clindamycin Allergy Rash Verified 02/01/24 11:16 enalapril Allergy Other Verified 02/01/24 11:16 enoxaparin Allergy Rash Verified 02/01/24 11:16 heparin Allergy Rash Verified 02/01/24 11:16 levalbuterol Allergy Other Verified 02/01/24 11:16 morphine Allergy Shortness Verified 02/01/24 11:16 of breath Penicillins Allergy Anaphylaxis Verified 02/01/24 11:16 valsartan Allergy Other Verified 02/01/24 11:16 vancomycin Allergy Rash Verified 02/01/24 11:16 atorvastatin AdvReac Other Verified 02/01/24 11:16 rosuvastatin [From Crestor] AdvReac Other Verified 02/01/24 11:16 Family History Mother Cancer Lung CA w/ tobacco use history. Diabetes COPD (chronic obstructive pulmonary disease) Father Cancer Lung CA w/ tobacco use history. Diabetes COPD (chronic obstructive pulmonary disease) Heart disease Surgical History History of appendectomy History of eye surgery History of foot surgery History of lumpectomy History of tubal ligation Status post transmetatarsal amputation of left foot Tubal ligation status Social History household members: none Smoking Status: Never smoker alcohol intake: never substance use type: does not use ROS Constitutional Constitutional: Reports fatigue and weight loss Eyes Eyes: Reports systems reviewed and no addt'l complaints, except as documented ENT HEENT: Reports systems reviewed and no addt'l complaints, except as documented Cardiovascular Cardiovascular: Reports systems reviewed and no addt'l complaints, except as documented Respiratory/Chest Respiratory/Chest: Reports systems reviewed and no addt'l complaints, except as documented Gastrointestinal Gastrointestinal: Reports diarrhea and nausea Genitourinary Genitourinary: Reports urinary incontinence; Denies dysuria, flank pain, hematuria, urinary frequency or urinary urgency Integumentary Integumentary: Reports systems reviewed and no addt'l complaints, except as documented Neurologic Neurologic: Reports systems reviewed and no addt'l complaints, except as documented Physical Exam Const alert, oriented x3 and no apparent distress General Appearance: cooperative and comfortable Nutritional Appearance: underweight and thin HEENT normocephalic, head/scalp atraumatic, external ears normal and external nose normal Eyes General Eye: normal appearance of both eyes Neck supple General: trachea midline Chest inspection of chest normal Resp normal respiratory effort and normal air movement Cardio regular rate GI GI Narrative: eating jello. no CVA tenderness Extremity normal to inspection Skin no rashes or lesions noted and no wounds Neuro oriented x3 and CN's II-XII intact bilaterally Psych mental status grossly normal Medical Records Data Medical Nutrition Assessment Dietitian: Malnutrition Criteria Met Start: 02/01/24 11:19 Freq: Status: Active Protocol: Document 02/01/24 11:19 SLA (Rec: 02/01/24 11:19 SLA Desktop) Nutrition Malnutrition Evidence of Malnutrition Exists Yes Malnutrition (severe): Chronic Evidenced By Suboptimal Energy Intake ( Severe),Weight Loss (Severe), Physical Changes (Severe) Clinical Problem Chronic Disease or Condition Related Malnutrition Etiology related to issues w/ swallowing and GI dysfunction making it difficulty to have adequate energy intake Signs/Symptoms as evidenced by res w/ <75% po intake of est nutritional needs x in past 4-5 w/ n/v/d issues, 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 Status Active Problem 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 Dietitian 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s/Changes Continue Alfredo bid as ordered Continue regular diet as ordered - encourage snacks between meals as tolerated - consistency per PASTRY ASSISTANT Ordered wayne ensure clear 4 oz 4x/day w/ medpass for increase nutrition if consumed Lab / Micro Data 02/04/24 05:18 02/04/24 05:18 Labs: Laboratory Results - last 24 hr 02/01/24 08:17: Blood Type Cancelled, Antibody Screen Cancelled, Crossmatch See Detail 02/01/24 17:20: Ur Random Sodium 103, Urine Creatinine < 13.00, Urine Test Negative Micro: Microbiology 02/01/24 10:30 Stool Stool Occult Blood (SONG) - Final Imaging Radiology Impression Renal Ultrasound 02/01/24 07:34 IMPRESSION: Mild left hydronephrosis. Debris in the urinary bladder. Electronically Signed: Roberto Pennington MD at 18:42 EDT Reading Location ID and State: [facility] / [place] , Service support ,
--- NOTE | 2024-02-02 11:38 | CON.PCM.RE_ITS ---
Assessment & Plan Assessment/Plan (1) Acute kidney injury: PLAN: 68 years old with nausea, vomiting, profound weight loss, decreased oral fluid intake as well as fluid intake, ongoing diarrhea who presents with a rising creatinine. I suspect that the injury to her kidneys is ischemic in nature. She looks dehydrated, physical exam consistent with dehydration. Plan volume expansion, monitoring kidney function and electrolytes HPI Consult Data Date of Consult: 02/02/24 HPI Narrative Reason for Consultation: Acute kidney injury HPI Narrative: RED PRICE, is a 68 F who presents with extreme dehydration and significant drop in the hemoglobin. She has been suffering from GI issues for a long period of time, she has got chronic diarrhea at baseline. Over the last several weeks she has lost about 60 pounds. Recently admitted with dehydration and acute kidney injury, creatinine up to 1.5 on 01/21/2024. She has been hydrated, diagnosed with Klebsiella UTI, treated with antibiotics and discharge. Creatinine started to improve. Came back again with the same complaints, inability to eat, feeling dehydrated, hypotensive, decreased urine output, ongo ing weight loss. Hemoglobin is down to 7 from baseline of 10, creatinine on the rise. [facility] Medical History Brain tumor (benign) Chronic diarrhea Debility Deep venous thrombosis of distal end of left lower extremity Diabetic foot ulcer Gastroesophageal reflux disease Gastroparesis History of cerebrovascular accident History of deep venous thrombosis (DVT) of distal vein of left lower extremity History of ischemic colitis History of myocardial infarction History of pneumonia Migraine Non-pressure chronic ulcer of other part of right foot with fat layer exposed Osteoarthritis of cervical and lumbar spine PAD (peripheral artery disease) Type 2 diabetes mellitus with diabetic polyneuropathy Ulcer of amputation stump of foot Wound of left foot Home Medications albuterol sulfate 90 mcg/actuation aerosol inhaler (Ventolin HFA) 1 puff inhalation Q4H PRN PRN SHORTNESS OF BREATH #0 grams 03/25/21 [Rx Last Taken 2 Weeks Ago ~03/27/23] ondansetron 4 mg disintegrating tablet 4 mg PO Q6H PRN PRN NAUSEA #0 tabs 03/25/21 [Rx Last Taken 04/10/23] tramadol 50 mg tablet 50 mg PO Q6H PRN Pain 05/18/21 [History Last Taken Unknown] acetaminophen 325 mg tablet 975 mg PO TID PRN Pain 12/31/22 [History Last Taken 02/02/24 06:00] folic acid 1 mg tablet 1 mg PO DAILY supplement #30 tabs 02/15/23 [Rx Last Taken 04/09/23] Lactobacillus rhamnosus GG 10 billion cell capsule (Culturelle) 1 cap PO DAILY GUT HEALTH 04/10/23 [History Last Taken 04/09/23] cholecalciferol (vitamin D3) 125 mcg (5,000 unit) tablet 125 mcg PO DAILY SUPPLEMENT 04/10/23 [History Last Taken 04/09/23] diphenoxylate-atropine 2.5 mg-0.025 mg tablet 1 tab PO BID DIARRHEA 04/10/23 [History Last Taken 04/10/23] pantoprazole 40 mg tablet,delayed release 40 mg PO DAILY GERD 04/10/23 [History Last Taken 02/02/24 06:00] ondansetron 4 mg disintegrating tablet 4 mg PO Q8H nausea #20 tabs 08/10/23 [Rx Last Taken Unknown] arginine 7 gram-glutam 7 gram-CaHMB 1.5 [id number] oral pwd pkt (Alfredo (with collagen)) 1 packet PO BID supplement 01/21/24 [History Last Taken Unkn own] loperamide 2 mg capsule 2 mg PO Q12H diarrhea 01/21/24 [History Last Taken Unknown] zenpap 1 dose PO stomach 01/21/24 [History Last Taken Unknown] vancomycin 125 mg capsule 125 mg PO BID 02/01/24 [History Last Taken Unknown] Allergy/AdvReac Type Severity Reaction Status Date / Time cefprozil Allergy Shortness Verified 02/01/24 11:16 of breath ceftriaxone Allergy Hives Verified 02/01/24 11:16 clindamycin Allergy Rash Verified 02/01/24 11:16 enalapril Allergy Other Verified 02/01/24 11:16 enoxaparin Allergy Rash Verified 02/01/24 11:16 heparin Allergy Rash Verified 02/01/24 11:16 levalbuterol Allergy Other Verified 02/01/24 11:16 morphine Allergy Shortness Verified 02/01/24 11:16 of breath Penicillins Allergy Anaphylaxis Verified 02/01/24 11:16 valsartan Allergy Other Verified 02/01/24 11:16 vancomycin Allergy Rash Verified 02/01/24 11:16 atorvastatin AdvReac Other Verified 02/01/24 11:16 rosuvastatin [From Crestor] AdvReac Other Verified 02/01/24 11:16 Family History Mother Cancer Lung CA w/ tobacco use history. Diabetes COPD (chronic obstructive pulmonary disease) Father Cancer Lung CA w/ tobacco use history. Diabetes COPD (chronic obstructive pulmonary disease) Heart disease Surgical History History of appendectomy History of eye surgery History of foot surgery History of lumpectomy History of tubal ligation Status post transmetatarsal amputation of left foot Tubal ligation status Social History household members: none Smoking Status: Never smoker alcohol intake: never substance use type: does not use ROS Constitutional Constitutional: Reports malaise, weakness and weight loss Eyes Eyes: Denies blindness, blurry vision, change in vision, discongugate gaze, double vision, dry eyes or loss of vision Cardiovascular Cardiovascular: Denies chest pain, claudication, diaphoresis, dyspnea on exertion, edema, irregular heart rhythm, leg edema, orthopnea, palpitations or syncope Respiratory/Chest Respiratory/Chest: Denies dry cough, dyspnea on exertion, hemoptysis, portable oxygen @ home, productive cough, shortness of breath at rest or wheezing Gastrointestinal Gastrointestinal: Reports abdominal pain, anorexia, diarrhea, dry heaves, nausea, vomiting and weight changes Genitourinary Genitourinary: Reports change in urinary stream and oliguria; Denies difficulty urinating, dribbling, dysuria, flank pain, hematuria, nocturia, post void dribbling, urinary frequency, urinary hesitancy, urinary incontinence or urinary urgency Musculoskeletal Musculoskeletal: Denies abnormal gait, arthralgias, joint stiffness, joint swelling, muscle cramps or myalgias Integumentary Integumentary: Reports dry skin Neurologic Neurologic: Denies abnormal gait, burning sensations, confusion, focal weakness, frequent falls, headache(s), numbness, restless legs, seizures, syncope, tremor(s) or weakness Psychiatric Psychiatric: Reports depression Endocrine Endocrinology: Reports fatigue Hematologic/Lymphatic Hematologic/Lymphatic: Reports anemia Physical Exam Const alert, oriented x3 and no apparent distress General Appearance: frail Orientation / Consciousness: oriented to person, oriented to place and oriented to time Nutritional Appearance: cachectic HEENT normocephalic Head and Scalp: atraumatic Neck no lymphadenopathy Resp no use of accessory muscles and clear to auscultation bilaterally Cardio regular rate and no murmurs GI non-tender Auscultation: normoactive bowel sounds Palpation: soft Skin no rashes or lesions noted Neuro Sensorium / Orientation: awake and alert Psych cooperative Medical Records Data Attestation: I reviewed the patient's medical records Medical Nutrition Assessment Dietitian: Malnutrition Criteria Met Start: 02/01/24 11:19 Freq: Status: Active Protocol: Document 02/01/24 11:19 SLA (Rec: 02/01/24 11:19 [facility] Desktop) Nutrition Malnutrition Evidence of Malnutrition Exists Yes Malnutrition (severe): Chronic Evidenced By Suboptimal Energy Intake ( Severe),Weight Loss (Severe), Physical Changes (Severe) Clinical Problem Chronic Disease or Condition Related Malnutrition Etiology related to issues w/ swallowing and GI dysfunction making it difficulty to have adequate energy intake Signs/Symptoms as evidenced by res w/ <75% po intake of est nutritional needs x in past 4-5 w/ n/v/d issues, 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 Status Active Problem 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 Dietitian 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s/Changes Continue Alfredo bid as ordered Continue regular diet as ordered - encourage snacks between meals as tolerated - consistency per [employer] Ordered wayne ensure clear 4 oz 4x/day w/ medpass for increase nutrition if consumed Lab / Micro Data Attestation: I reviewed the patient's lab results. 02/01/24 05:13 02/01/24 05:13 Labs: Laboratory Results - last 24 hr 02/01/24 17:20: Ur Random Sodium 103, Urine Creatinine < 13.00, Urine Test Negative Micro: Microbiology 02/01/24 10:30 Stool Stool Occult Blood (SONG) - Final Imaging Radiology Impression Renal Ultrasound 02/01/24 07:34 IMPRESSION: Mild left hydronephrosis. Debris in the urinary bladder. Electronically Signed: Roberto Pennington MD at 18:42 EDT ,
[2024-02-02 12:15] LABS: Vitamin D,25 Hydroxy 40.9 ng/mL
--- NOTE | 2024-02-02 12:30 | CASEMGMT ---
Social Work Met with patient to complete initial assessment. Introduced self and role. Patient's sister was in the room and patient gave permission for her to be present for interview. Verified/updated contacts. Patient confirmed code status as DNRCCA-no intubation. Pt does have DPOAHC and Living Will in place. Educated to Medicare benefits and copay coverage. Pt's goal is to return home with sister staying with her. She does not want home health services as she has had it 3 times in the past and had bad experiences with all 3 agencies. Pt did trigger for SDH assessments. This worker did ask patient's sister to step out of the room so this worker could complete assessment. Patient stated she does worry about finances and being able to afford her housing. She stated she does own a home in [place] but it is not handicapped accessible so she got a condo in [place]. Her left her 2 years ago and left her destitute. She does have food stamps to help with food insecurity. She said she worries about running out of food but never does. She is also connected with [employer] to help with electric and water bills. She utilized [employer] transportation and family assists with transportation to get to appointments. SW will provide additional information about transportation, food pantries, meals on wheels, and united way. Patient did state she would like referral to [facility] but when she goes home not while she is in TCU. SW will assist with this. Patient did state she does not want her ex to visit. She doesn't think he will try but does not want him visiting if he does try. His name is Jovanny Hazel. EDER notified nursing of same. EDER will continue to follow for DC planning. LETY Lange
--- NOTE | 2024-02-02 13:00 | NURSING ---
Bladder scanned per Dr. Jonas order for 241cc
--- NOTE | 2024-02-02 13:06 | NURSING ---
Pt. left floor at 1000 for EGD and returned at 1300.
[2024-02-02] MEDS: Vancomycin 125 MG/5 ML Susp PO.SYRINGE PO ×2 (13:15→20:36)
[2024-02-02 16:00] VITALS: BP 154/74; PULSE 64; RESP 14; TEMP 36.4; O2SAT 96
--- NOTE | 2024-02-02 16:26 | CHAPLAIN ---
Type of Pastoral Visit ___ Initial Visit _x__ Follow-up Visit ___ On-call Visit ___ General Patient Visit ___ Spiritual Assessment ___ Family Conference ___ Bereavement ___ Rapid Response ___ Code Blue ___ Other (describe below) Pastoral Care Referral From _x__ Patient _x__ Family ___ Nurse ___ Physician ___ Clinical Research Coordinator ___ Drilling Superintendent ___ Other (describe below) Sacrament/Intervention _x__ Active listening ___ Anointing ___ Mandaen ___ Bereavement ___ Communion ___ Dang exploration ___ ___ Life review _x__ Prayer ___ Reconciliation ___ Sacrament of Sick _x__ Supportive presence ___ Wedding ___ Other (describe below) Pastoral Comments
[2024-02-02] MEDS: Ensure Clear 120 ML Liquid PO ×2 (16:43→20:36)
[2024-02-02] MEDS: Juven (unflavored) Packet 1 PACKET PO (16:44)
[2024-02-03 02:04] LABS: Protein, Urine (Random) 48.4 mg/dL (<11.9); Protein:Creat Ratio 1169 mg/g CRE (0-200)
[2024-02-03] MEDS: Ensure Clear 120 ML Liquid PO ×4 (05:18→21:20)
[2024-02-03] MEDS: 0.9% Saline Lock 10 ML Syringe IV ×2 (06:15→12:15)
--- NOTE | 2024-02-03 06:40 | NURSING ---
0640; Called urine random total protein, urine creatinine, protein/creatinin ratio to Dr. Novak. No new orders received.
[2024-02-03] MEDS: Juven (unflavored) Packet 1 PACKET PO ×2 (08:53→17:03)
[2024-02-03] MEDS: Folic Acid 1 MG Tablet PO (08:54)
[2024-02-03] MEDS: Pantoprazole Sodium 40 MG Tablet PO (08:54)
[2024-02-03] MEDS: Cholecalciferol (Vit D3) 125 MCG CAPSULE (5,000 UNITS) PO (08:54)
[2024-02-03] MEDS: Menthol/Lanolin/Calamine/Znox 113 GM Tube 1 APPLIC TOPICAL ×2 (08:54→21:21)
[2024-02-03] MEDS: Lactobacillis Acidophilus 1 CAP PO (08:54)
[2024-02-03] MEDS: Vancomycin 125 MG/5 ML Susp PO.SYRINGE PO ×2 (08:55→21:20)
[2024-02-03] MEDS: Acetaminophen 500 MG Tablet 1000 MG PO ×2 (09:01→21:20)
[2024-02-03 10:00] VITALS: RESP 12; O2SAT 98
--- NOTE | 2024-02-03 12:06 | NURSING ---
Addendum entered by Kinza Ponce 02/03/24 13:00: Dr. Melissa called, requested order for Lomotil 2.5-0.025mg to be given TID scheduled, Colestipol 2GM BID scheduled. Med orders given to rn relief charge to put in to orders. Patient notified. Original Note: Patient c/o continuous liquid diarrhea. Requesting something to help control diarrhea. Reached out to MD in regards to this request. Per MD reach out to GI specialist on case. Backline message sent to GI specialist. Waiting for reply, Continuing to monitor patient status.
[2024-02-03] MEDS: 0.9% Normal Saline (1000mL) 1,000 ML 75 ML IV (12:15)
[2024-02-03] MEDS: Diphenoxylate/Atrop 1 Tablet PO ×2 (14:20→21:20)
[2024-02-03 15:11] VITALS: BP 104/53; PULSE 71; RESP 12; TEMP 36.5; O2SAT 98
[2024-02-03 21:15] VITALS: PULSE 68; O2SAT 98
[2024-02-03] MEDS: Colestipol 1 GM TABLET 2 GM PO (21:20)
[2024-02-04] MEDS: 0.9% Normal Saline (1000mL) 1,000 ML 75 ML IV ×2 (02:00→15:13)
[2024-02-04 05:32] LABS: Absolute Lymphocyte Count 4.66 X10^3/uL (0.83-4.51); Absolute Neutrophil Count 10.8 X10^3/uL (2.0-7.7); Basophil# 0.04 X10^3/uL; Basophil% 0.2 % (0-1); Eosinophil# 0.24 X10^3/uL; Eosinophils% 1.4 % (0-5); Hematocrit 35.5 % (37-47); Hemoglobin 10.5 g/dL (12.0-15.0); Lymphocyte # 4.66 X10^3/ul (0.83-4.51); Lymphocyte % 27.5 % (19-41); Mean Corp Hgb Conc 29.6 g/dL (32-36); Mean Corpuscular Hgb 29.6 pg (27.0-32.0); Mean Platelet Vol. 9.6 fl (6.2-12.0); Monocyte# 1.06 X10^3/uL; Monocyte% 6.3 % (0-10); NRBC Flagged by Analyzer 0 % (0-5); Neutrophil # 10.84 X10^3/uL (2.7-7.7); Neutrophil % 64.1 % (47-70); POSITIVE MORPHOLOGY YES; Platelet Count 241 K/mm3 (150-450); RBC Distribution Width SD 55.3 fl (35.1-43.9); Red Blood Count 3.55 M/mm3 (4.2-5.4); White Blood Count 16.9 K/mm3 (4.4-11.0)
[2024-02-04 05:42] LABS: Differential Indicated SCAN CRITERIA MET
[2024-02-04 05:44] LABS: Differential Comment SCANNED
[2024-02-04 05:48] LABS: Anion Gap 6 (5-15); BUN 36 mg/dL (7-18); Calcium,Total 7.6 mg/dL (8.5-10.1); Chloride 116 mmol/L (98-107); Creatinine, Serum 3.26 mg/dL (0.55-1.02); EST Glomerular Filtration Rate 15 mL/min (>60); Est Glom Filt Rate - Afr Amer 18 mL/min (>60); Estimated Creatinine Clearance 12.84 ml/min; Glucose 60 mg/dL (74-106); Potassium 4.4 mmol/L (3.5-5.1); Sodium Level 136 mmol/L (136-145)
[2024-02-04] MEDS: Diphenoxylate/Atrop 1 Tablet PO ×3 (05:53→21:34)
[2024-02-04] MEDS: Pantoprazole Sodium 40 MG Tablet PO (08:13)
[2024-02-04] MEDS: Juven (unflavored) Packet 1 PACKET PO ×2 (08:13→16:58)
[2024-02-04] MEDS: Cholecalciferol (Vit D3) 125 MCG CAPSULE (5,000 UNITS) PO (08:13)
[2024-02-04] MEDS: Lactobacillis Acidophilus 1 CAP PO (08:14)
[2024-02-04] MEDS: Folic Acid 1 MG Tablet PO (08:14)
[2024-02-04] MEDS: Vancomycin 125 MG/5 ML Susp PO.SYRINGE PO ×2 (08:15→21:35)
[2024-02-04] MEDS: Colestipol 1 GM TABLET 2 GM PO ×2 (09:26→21:34)
[2024-02-04] MEDS: Menthol/Lanolin/Calamine/Znox 113 GM Tube 1 APPLIC TOPICAL ×2 (09:26→21:54)
[2024-02-04] MEDS: Ensure Clear 120 ML Liquid PO ×3 (11:29→21:35)
[2024-02-04 16:00] VITALS: BP 104/62; PULSE 67; RESP 16; TEMP 36.6; O2SAT 97
[2024-02-04] MEDS: Acetaminophen 500 MG Tablet 1000 MG PO (21:34)
[2024-02-05] MEDS: Ensure Clear 120 ML Liquid PO ×4 (05:21→20:54)
[2024-02-05] MEDS: Diphenoxylate/Atrop 1 Tablet PO ×3 (05:22→20:54)
[2024-02-05] MEDS: 0.9% Normal Saline (1000mL) 1,000 ML 75 ML IV ×2 (05:22→16:48)
[2024-02-05 05:45] LABS: Absolute Lymphocyte Count 4.05 X10^3/uL (0.83-4.51); Absolute Neutrophil Count 10.8 X10^3/uL (2.0-7.7); Basophil# 0.18 X10^3/uL; Basophil% 1.1 % (0-1); Eosinophil# 0.23 X10^3/uL; Eosinophils% 1.4 % (0-5); Hematocrit 32.3 % (37-47); Hemoglobin 10.2 g/dL (12.0-15.0); Lymphocyte # 4.05 X10^3/ul (0.83-4.51); Lymphocyte % 24.7 % (19-41); Mean Corp Hgb Conc 31.6 g/dL (32-36); Mean Platelet Vol. 10.4 fl (6.2-12.0); Monocyte# 1.07 X10^3/uL; Monocyte% 6.5 % (0-10); NRBC Flagged by Analyzer 0 % (0-5); Neutrophil # 10.77 X10^3/uL (2.7-7.7); Neutrophil % 65.8 % (47-70); Platelet Count 226 K/mm3 (150-450); RBC Distribution Width SD 52.3 fl (35.1-43.9); White Blood Count 16.4 K/mm3 (4.4-11.0)
[2024-02-05 05:50] VITALS: PULSE 62; O2SAT 98
[2024-02-05 06:15] LABS: Anion Gap 6 (5-15); BUN 52 mg/dL (7-18); BUN/Creat Ratio 18.7 RATIO (10-20); Calcium,Total 7.7 mg/dL (8.5-10.1); Chloride 116 mmol/L (98-107); Creatinine, Serum 2.78 mg/dL (0.55-1.02); EST Glomerular Filtration Rate 18 mL/min (>60); Est Glom Filt Rate - Afr Amer 22 mL/min (>60); Estimated Creatinine Clearance 15.06 ml/min; Glucose 72 mg/dL (74-106); Potassium 4.9 mmol/L (3.5-5.1); Sodium Level 136 mmol/L (136-145)
[2024-02-05] MEDS: Lactobacillis Acidophilus 1 CAP PO (08:44)
[2024-02-05] MEDS: Pantoprazole Sodium 40 MG Tablet PO (08:44)
[2024-02-05] MEDS: Folic Acid 1 MG Tablet PO (08:44)
[2024-02-05] MEDS: Cholecalciferol (Vit D3) 125 MCG CAPSULE (5,000 UNITS) PO (08:44)
[2024-02-05] MEDS: Juven (unflavored) Packet 1 PACKET PO ×2 (08:44→16:48)
[2024-02-05] MEDS: Vancomycin 125 MG/5 ML Susp PO.SYRINGE PO ×2 (08:45→20:54)
[2024-02-05] MEDS: Menthol/Lanolin/Calamine/Znox 113 GM Tube 1 APPLIC TOPICAL ×2 (08:46→20:54)
--- NOTE | 2024-02-05 09:04 | NURSING ---
Offered covid vaccine, VIS provided. Patient refuses at this time.
[2024-02-05] MEDS: Colestipol 1 GM TABLET 2 GM PO (10:23)
--- NOTE | 2024-02-05 11:15 | PCM.PN.REN ---
Subjective Subjective Resting in bed, states appetite fair but at times has difficult time swallowing. No vomiting. Objective Data Objective Data Vital Signs: Vital Signs Temp Pulse Resp BP Pulse Ox O2 Del Method 97.8 F 62 16 104/62 98 Room Air 02/04/24 16:00 02/05/24 05:50 02/04/24 16:00 02/04/24 16:00 02/05/24 05:50 02/05/24 05:50 Oxygen Delivery Method Room Air Weight: 48.58 kg Body Mass Index (BMI) 18.3 Intake & Output: Intake and Output for Last 24 Hours 02/03/24 02/04/24 02/05/24 23:59 23:59 23:59 Intake Total 840 / 840 3371.25 / 3371.25 1240 / 1240 Balance 840 / 840 3371.25 / 3371.25 1240 / 1240 Medical Nutrition Assessment Dietitian: Malnutrition Criteria Met Start: 02/01/24 11:19 Freq: Status: Active Protocol: Document 02/01/24 11:19 SLA (Rec: 02/01/24 11:19 SLA Desktop) Nutrition Malnutrition Evidence of Malnutrition Exists Yes Malnutrition (severe): Chronic Evidenced By Suboptimal Energy Intake ( Severe),Weight Loss (Severe), Physical Changes (Severe) Clinical Problem Chronic Disease or Condition Related Malnutrition Etiology related to issues w/ swallowing and GI dysfunction making it difficulty to have adequate energy intake Signs/Symptoms as evidenced by res w/ <75% po intake of est nutritional needs x in past 4-5 w/ n/v/d issues, 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 Status Active Problem 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 Dietitian 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s/Changes Continue Alfredo bid as ordered Continue regular diet as ordered - encourage snacks between meals as tolerated - consistency per DIET KITCHEN COOK Ordered wayne ensure clear 4 oz 4x/day w/ medpass for increase nutrition if consumed Lab / Micro Data 02/05/24 05:12 02/05/24 05:12 Labs: Laboratory Results - last 24 hr 02/05/24 05:12: WBC 16.4 H, RBC 3.40 L, Hgb 10.2 L, Hct 32.3 L, MCV 95.0, MCH 30.0, MCHC 31.6 L D, RDW Std Deviation 52.3 H, RDW Coeff of Xin 15.0 H, Plt Count 226, MPV 10.4, Immature Gran % (Auto) 0.500, Neut % (Auto) 65.8, Lymph % (Auto) 24.7, Grainger % (Auto) 6.5, Eos % (Auto) 1.4, Baso % (Auto) 1.1 H, Absolute Neuts (auto) 10.8 H, Absolute Lymphs (auto) 4.05, Nucleated RBC % 0, Sodium 136, Potassium 4.9, Chloride 116 H, Carbon Dioxide 14.0 L, Anion Gap 6, BUN 52 H, Creatinine 2.78 H, Estim Creat Clear Calc 15.06, Est GFR (MDRD) Af Amer 22 L, Est GFR (MDRD) Non-Af 18 L, BUN/Creatinine Ratio 18.7, Glucose 72 L, Calcium 7.7 L Micro: Microbiology 02/01/24 10:30 Stool Stool Occult Blood (SONG) - Final Physical Exam Narrative Alert orient x 3, no apparent distress S1, S2, RRR Lung sounds clear Abdomen soft, positive bowel sounds No edema Assessment & Plan Assessment/Plan (1) Acute kidney injury: PLAN: 68 year old female with nausea, vomiting, profound weight loss, decreased oral food /fluid intake, ongoing diarrhea. Nephrology consulted in view of rising creatinine. Suspect ANNIKA secondary to ischemic ATN. Patient is on IV fluids and with volume expansion renal function has improved and recommend continuing on IV fluids for now. No acute indication for NUTRITION SERVICES ASSOCIATE. Baseline serum creatinine around 1.1-1.2 mg/dL. Creatinine peaked at 3.26 mg/dL on 02/03, today creatinine 2.78 mg/dL. Patient is nonoliguric. Encouraged patient to try and increase fluid and solute intake as best as she can. Blood pressures acceptable, not on any antihypertensives. On oral vancomycin for C. difficile. Patient is on protein supplement. Patient does not need renal diet restrictions.
--- NOTE | 2024-02-05 11:23 | CASEMGMT ---
Social Work This worker did leave voicemail with the [facility] cobol programmer to see if patient might be a candidate for their program. LETY Lange
[2024-02-05 16:00] VITALS: BP 110/72; PULSE 72; RESP 14; TEMP 36.6; O2SAT 97
[2024-02-06] MEDS: Ensure Clear 120 ML Liquid PO ×4 (05:35→21:23)
[2024-02-06] MEDS: 0.9% Normal Saline (1000mL) 1,000 ML 75 ML IV ×2 (05:35→21:31)
[2024-02-06] MEDS: Diphenoxylate/Atrop 1 Tablet PO ×3 (05:35→21:29)
[2024-02-06] MEDS: Acetaminophen 500 MG Tablet 1000 MG PO (05:38)
[2024-02-06 05:57] LABS: Absolute Lymphocyte Count 3.61 X10^3/uL (0.83-4.51); Absolute Neutrophil Count 9.2 X10^3/uL (2.0-7.7); Basophil# 0.04 X10^3/uL; Basophil% 0.3 % (0-1); Eosinophil# 0.22 X10^3/uL; Eosinophils% 1.6 % (0-5); Hematocrit 32.6 % (37-47); Hemoglobin 9.9 g/dL (12.0-15.0); Lymphocyte # 3.61 X10^3/ul (0.83-4.51); Lymphocyte % 25.6 % (19-41); Mean Corp Hgb Conc 30.4 g/dL (32-36); Mean Corpuscular Hgb 28.8 pg (27.0-32.0); Mean Corpuscular Volume 94.8 fL (81-99); Mean Platelet Vol. 10.2 fl (6.2-12.0); Monocyte# 0.93 X10^3/uL; Monocyte% 6.6 % (0-10); NRBC Flagged by Analyzer 0 % (0-5); Neutrophil # 9.24 X10^3/uL (2.7-7.7); Neutrophil % 65.4 % (47-70); POSITIVE MORPHOLOGY YES; Platelet Count 229 K/mm3 (150-450); RBC Distribution Width CV 15.2 % (11.6-14.6); RBC Distribution Width SD 52.3 fl (35.1-43.9); Red Blood Count 3.44 M/mm3 (4.2-5.4); White Blood Count 14.1 K/mm3 (4.4-11.0)
[2024-02-06 06:15] LABS: Differential Indicated SCAN CRITERIA MET
[2024-02-06 07:14] LABS: Atypical Lymphocyte RARE %
[2024-02-06] MEDS: Lactobacillis Acidophilus 1 CAP PO (08:34)
[2024-02-06] MEDS: Juven (unflavored) Packet 1 PACKET PO ×2 (08:34→17:01)
[2024-02-06] MEDS: Pantoprazole Sodium 40 MG Tablet PO (08:34)
[2024-02-06] MEDS: Folic Acid 1 MG Tablet PO (08:34)
[2024-02-06] MEDS: Cholecalciferol (Vit D3) 125 MCG CAPSULE (5,000 UNITS) PO (08:34)
[2024-02-06] MEDS: Menthol/Lanolin/Calamine/Znox 113 GM Tube 1 APPLIC TOPICAL ×2 (08:35→21:32)
[2024-02-06] MEDS: Cholestyramine/Sucrose 4 GM/PACKET PO ×2 (11:02→17:01)
[2024-02-06 11:22] LABS: Anion Gap 7 (5-15); BUN 61 mg/dL (7-18); BUN/Creat Ratio 25.8 RATIO (10-20); Calcium,Total 7.9 mg/dL (8.5-10.1); Chloride 118 mmol/L (98-107); Creatinine, Serum 2.36 mg/dL (0.55-1.02); EST Glomerular Filtration Rate 22 mL/min (>60); Est Glom Filt Rate - Afr Amer 26 mL/min (>60); Estimated Creatinine Clearance 17.74 ml/min; Glucose 76 mg/dL (74-106); Potassium 5.6 mmol/L (3.5-5.1); Sodium Level 136 mmol/L (136-145)
[2024-02-06] MEDS: 0.9% Saline Lock 10 ML Syringe IV (12:47)
[2024-02-06] MEDS: Sodium Polystyrene Sulfonate 15 GM/60 ML UDC 30 GM PO (13:36)
[2024-02-06 16:00] VITALS: BP 165/77; PULSE 69; RESP 16; O2SAT 98
[2024-02-06 16:29] VITALS: BMI 20.1
--- NOTE | 2024-02-06 17:49 | CASEMGMT ---
Social Work IDT met with patient and sister Jackie at bedside and daughter, Prabha via phone to complete care plan. Discussed patient progress with therapy ST/OT/PT service. SW educated patient and family of Medicare coverage for intermediate facility. SW informed family of Medicare 100% coverage for days 1-20 and co-pay days 21-100. Patient informed SW that she does not have enough income to cover for co-pay. Patient informed SW that her goal is to return home with home health and family. Patient is eager to continue therapy to functionally improve. Patient's sister informed SW that she will be living with patient post discharge, but she will be working during the day. Patient will require further coverage from family. SW discussed private duty care. Patient informed SW that she is unable to afford private duty. Patient informed SW that she would like to obtain resources for transportation assistance and meal delivery. SW provided patient with meal delivery resources and discussed follow up for further resources. Patient is currently utilizing resources with [facility]. EDER will continue to follow to assist patient with referral for community assistance. JOIE Castro
[2024-02-06 20:37] VITALS: PULSE 67; RESP 16; O2SAT 97
[2024-02-07] MEDS: Diphenoxylate/Atrop 1 Tablet PO (05:46)
[2024-02-07] MEDS: Ensure Clear 120 ML Liquid PO ×3 (05:47→21:13)
[2024-02-07 05:57] LABS: Hematocrit 31.4 % (37-47); Hemoglobin 9.5 g/dL (12.0-15.0)
[2024-02-07 06:17] LABS: Anion Gap 7 (5-15); BUN 57 mg/dL (7-18); BUN/Creat Ratio 27.5 RATIO (10-20); Calcium,Total 7.8 mg/dL (8.5-10.1); Chloride 120 mmol/L (98-107); Creatinine, Serum 2.07 mg/dL (0.55-1.02); EST Glomerular Filtration Rate 25 mL/min (>60); Est Glom Filt Rate - Afr Amer 31 mL/min (>60); Estimated Creatinine Clearance 22.26 ml/min; Glucose 73 mg/dL (74-106); Potassium 4.6 mmol/L (3.5-5.1); Sodium Level 139 mmol/L (136-145)
[2024-02-07] MEDS: Folic Acid 1 MG Tablet PO (09:32)
[2024-02-07] MEDS: Lactobacillis Acidophilus 1 CAP PO (09:32)
[2024-02-07] MEDS: Juven (unflavored) Packet 1 PACKET PO (09:32)
[2024-02-07] MEDS: Pantoprazole Sodium 40 MG Tablet PO (09:32)
[2024-02-07] MEDS: Cholecalciferol (Vit D3) 125 MCG CAPSULE (5,000 UNITS) PO (09:33)
[2024-02-07] MEDS: Menthol/Lanolin/Calamine/Znox 113 GM Tube 1 APPLIC TOPICAL ×2 (11:01→21:14)
[2024-02-07] MEDS: 0.9% Normal Saline (1000mL) 1,000 ML 75 ML IV ×2 (11:02→21:17)
[2024-02-07] MEDS: Cholestyramine/Sucrose 4 GM/PACKET PO (11:06)
--- NOTE | 2024-02-07 11:25 | PCM.PN.GU ---
Subjective Subjective I spoke with Dr. Ivy today. We will await further assessment and evaluation of colon mass. I will be available as needed for stent insertion. Objective Data Objective Data Vital Signs: Vital Signs Temp Pulse Resp BP Pulse Ox O2 Del Method 98 F 67 16 165/77 H 97 Room Air 02/05/24 16:00 02/06/24 20:37 02/06/24 20:37 02/06/24 16:00 02/06/24 20:37 02/06/24 20:37 Oxygen Delivery Method Room Air Weight: 53.479 kg Body Mass Index (BMI) 20.1 Intake & Output: Intake and Output for Last 24 Hours 02/05/24 02/06/24 02/07/24 23:59 23:59 23:59 Intake Total 2697.5 / 2697.5 2678.75 / 2678.75 1240 / 1240 Balance 2697.5 / 2697.5 2678.75 / 2678.75 1240 / 1240 Medical Nutrition Assessment Dietitian: Malnutrition Criteria Met Start: 02/01/24 11:19 Freq: Status: Active Protocol: Document 02/01/24 11:19 SLA (Rec: 02/01/24 11:19 SLA Desktop) Nutrition Malnutrition Evidence of Malnutrition Exists Yes Malnutrition (severe): Chronic Evidenced By Suboptimal Energy Intake ( Severe),Weight Loss (Severe), Physical Changes (Severe) Clinical Problem Chronic Disease or Condition Related Malnutrition Etiology related to issues w/ swallowing and GI dysfunction making it difficulty to have adequate energy intake Signs/Symptoms as evidenced by res w/ <75% po intake of est nutritional needs x in past 4-5 w/ n/v/d issues, 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 Status Active Problem 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 Dietitian 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s/Changes Continue Alfredo bid as ordered Continue regular diet as ordered - encourage snacks between meals as tolerated - consistency per FIRE FIGHTING EQUIPMENT SPECIALIST Ordered wayne ensure clear 4 oz 4x/day w/ medpass for increase nutrition if consumed Lab / Micro Data 02/07/24 05:16 02/07/24 05:16 Labs: Laboratory Results - last 24 hr 02/07/24 05:16: Hgb 9.5 L, Hct 31.4 L, Sodium 139, Potassium 4.6, Chloride 120 H, Carbon Dioxide 12.0 L, Anion Gap 7, BUN 57 H, Creatinine 2.07 H, Estim Creat Clear Calc 22.26, Est GFR (MDRD) Af Amer 31 L, Est GFR (MDRD) Non-Af 25 L, BUN/Creatinine Ratio 27.5 H, Glucose 73 L, Calcium 7.8 L Micro: Microbiology 02/01/24 10:30 Stool Stool Occult Blood (SONG) - Final
--- NOTE | 2024-02-07 11:40 | NURSING ---
Dr. Hernandez in to see patient and she reports she wants to talk to Dr. Ivy regarding further treatment of patient. Dr. Ivy made aware and number provided to contact Dr. Hernandez. Dr. Ivy calls down after receiving message and asks whether Dr. Melissa contacted about mass to colon and needing colonoscopy and BX. This nurse unsure at time but reported we will make Dr. Melissa aware. Damaris PUENTE reports she made Dr. Melissa aware of abnormal CT to abdomen/pelvis this AM.
[2024-02-07] MEDS: Bisacodyl 5 MG Tablet 20 MG PO (13:15)
--- NOTE | 2024-02-07 13:27 | NURSING ---
PT TO HAVE COLONOSCOPY 02/08/24 WITH . NEW BOWEL PREP ORDERS IN, PT CLEAR LIQUIDS TILL MIDNIGHT THEN NPO AND NOT TO GIVE ANY DM MEDS. PT AND FAMILY AWARE.
[2024-02-07] MEDS: Polyethylene Glycol 3350 BOWEL PREP PO (14:59)
--- NOTE | 2024-02-07 15:24 | NURSING ---
Supervisor Irrigation Note; MDS for 02/07/2024 Complete
[2024-02-07 16:00] VITALS: BP 154/71; PULSE 76; RESP 16; TEMP 36.2; O2SAT 98
[2024-02-07] MEDS: Nystatin Powder 15gm Bottle 1 APPLIC TOPICAL (21:25)
[2024-02-08 05:58] LABS: Absolute Lymphocyte Count 3.21 X10^3/uL (0.83-4.51); Absolute Neutrophil Count 8.5 X10^3/uL (2.0-7.7); Basophil# 0.18 X10^3/uL; Basophil% 1.4 % (0-1); Eosinophil# 0.25 X10^3/uL; Eosinophils% 1.9 % (0-5); Hematocrit 30.5 % (37-47); Hemoglobin 9.3 g/dL (12.0-15.0); Lymphocyte # 3.21 X10^3/ul (0.83-4.51); Lymphocyte % 24.6 % (19-41); Mean Corp Hgb Conc 30.5 g/dL (32-36); Mean Corpuscular Hgb 29.2 pg (27.0-32.0); Mean Corpuscular Volume 95.9 fL (81-99); Mean Platelet Vol. 10.1 fl (6.2-12.0); Monocyte# 0.91 X10^3/uL; NRBC Flagged by Analyzer 0 % (0-5); Neutrophil # 8.46 X10^3/uL (2.7-7.7); Neutrophil % 64.7 % (47-70); Platelet Count 238 K/mm3 (150-450); RBC Distribution Width CV 15.3 % (11.6-14.6); RBC Distribution Width SD 52.5 fl (35.1-43.9); Red Blood Count 3.18 M/mm3 (4.2-5.4); White Blood Count 13.1 K/mm3 (4.4-11.0)
[2024-02-08 06:54] LABS: Anion Gap 4 (5-15); BUN 54 mg/dL (7-18); BUN/Creat Ratio 29.5 RATIO (10-20); Calcium,Total 7.9 mg/dL (8.5-10.1); Chloride 125 mmol/L (98-107); Creatinine, Serum 1.83 mg/dL (0.55-1.02); EST Glomerular Filtration Rate 29 mL/min (>60); Est Glom Filt Rate - Afr Amer 35 mL/min (>60); Estimated Creatinine Clearance 24.84 ml/min; Glucose 70 mg/dL (74-106); Potassium 4.1 mmol/L (3.5-5.1); Sodium Level 141 mmol/L (136-145)
[2024-02-08] MEDS: Tuberculin,Purif.prot.deriv. 50 TU/ML Vial 0.1 ML ID (10:43)
[2024-02-08] MEDS: 0.9% Normal Saline (1000mL) 1,000 ML 75 ML IV (10:43)
--- NOTE | 2024-02-08 11:18 | PCM.PN.REN ---
Subjective Subjective Resting in bed. No overnight events. Objective Data Objective Data Vital Signs: Vital Signs Temp Pulse Resp BP Pulse Ox O2 Del Method 97.2 F L 76 16 154/71 H 98 Room Air 02/07/24 16:00 02/07/24 16:00 02/07/24 16:00 02/07/24 16:00 02/07/24 16:00 02/08/24 05:58 Oxygen Delivery Method Room Air Weight: 53.479 kg Body Mass Index (BMI) 20.1 Intake & Output: Intake and Output for Last 24 Hours 02/06/24 02/07/24 02/08/24 23:59 23:59 23:59 Intake Total 2678.75 / 2678.75 2248.75 / 2248.75 1000 / 1000 Balance 2678.75 / 2678.75 2248.75 / 2248.75 1000 / 1000 Medical Nutrition Assessment Dietitian: Malnutrition Criteria Met Start: 02/01/24 11:19 Freq: Status: Active Protocol: Document 02/07/24 12:01 LEXA (Rec: 02/07/24 12:01 LEXA Desktop) Nutrition Malnutrition Evidence of Malnutrition Exists Yes Malnutrition (severe): Chronic Evidenced By Suboptimal Energy Intake ( Severe),Weight Loss (Severe), Physical Changes (Severe) Clinical Problem Chronic Disease or Condition Related Malnutrition Etiology related to issues w/ swallowing and GI dysfunction making it difficulty to have adequate energy intake Signs/Symptoms as evidenced by res w/ <75% po intake of est nutritional needs x in past 4-5 weeks w/ n /v/d issues, 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 Status Active Problem 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 Dietitian 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s/Changes Continue Alfredo bid as ordered Continue regular diet as ordered - encourage snacks between meals as tolerated - consistency per ANALYTICAL LEAD Continue wayne flavored ensure clear 4 oz 4x/day w/ medpass for increase nutrition if consumed Lab / Micro Data 02/08/24 05:15 02/08/24 05:15 Labs: Laboratory Results - last 24 hr 02/08/24 05:15: WBC 13.1 H, RBC 3.18 L, Hgb 9.3 L, Hct 30.5 L, MCV 95.9, MCH 29.2, MCHC 30.5 L, RDW Std Deviation 52.5 H, RDW Coeff of Xin 15.3 H, Plt Count 238, MPV 10.1, Immature Gran % (Auto) 0.400, Neut % (Auto) 64.7, Lymph % (Auto) 24.6, [place] % (Auto) 7.0, Eos % (Auto) 1.9, Baso % (Auto) 1.4 H, Absolute Neuts (auto) 8.5 H, Absolute Lymphs (auto) 3.21, Nucleated RBC % 0, Sodium 141, Potassium 4.1, Chloride 125 H, Carbon Dioxide 12.0 L, Anion Gap 4 L, BUN 54 H, Creatinine 1.83 H, Estim Creat Clear Calc 24.84, Est GFR (MDRD) Af Amer 35 L, Est GFR (MDRD) Non-Af 29 L, BUN/Creatinine Ratio 29.5 H, Glucose 70 L, Calcium 7.9 L Micro: Microbiology 02/01/24 10:30 Stool Stool Occult Blood (SONG) - Final Physical Exam Narrative Alert orient x 3, no apparent distress S1, S2, RRR Lung sounds clear Abdomen soft, positive bowel sounds No edema Const General Appearance: frail Psych cooperative Assessment & Plan Assessment/Plan (1) Acute kidney injury: PLAN: 68 year old female with nausea, vomiting, profound weight loss, decreased oral food /fluid intake, ongoing diarrhea. Nephrology consulted in view of rising creatinine. - Suspect ANNIKA secondary to ischemic ATN. Patient is on IV fluids and with volume expansion renal function has improved with IV fluids. No acute indication for TAR ROOFER. Baseline serum creatinine around 1.1-1.2 mg/dL. Creatinine peaked at 3.26 mg/dL on 02/03, today creatinine 1.83mg/dL. Patient is nonoliguric. Renal function slowly improved. Encouraged patient to try and increase fluid and solute intake as best as she can. Blood pressures acceptable, not on any antihypertensives. On oral vancomycin for C. difficile. Patient is on protein supplement. Patient does not need renal diet restrictions. Bicarb is low at 12.0, will start oral sodium bicarbonate.
--- NOTE | 2024-02-08 14:29 | NURSING ---
PT LEFT FLOOR BY BED FOR COLONOSCOPY WITH AT 1425.
[2024-02-08 14:46] VITALS: BP 113/57; PULSE 74; RESP 16; TEMP 36.9; O2SAT 96
[2024-02-08 17:30] VITALS: BP 155/82; PULSE 68; RESP 18; TEMP 36.8; O2SAT 99
[2024-02-08] MEDS: Sodium Bicarbonate 650 MG Tablet PO ×2 (17:43→20:58)
[2024-02-08] MEDS: Folic Acid 1 MG Tablet PO (17:43)
[2024-02-08] MEDS: Lactobacillis Acidophilus 1 CAP PO (17:44)
[2024-02-08] MEDS: Cholecalciferol (Vit D3) 125 MCG CAPSULE (5,000 UNITS) PO (17:44)
[2024-02-08] MEDS: Pantoprazole Sodium 40 MG Tablet PO (17:44)
[2024-02-08] MEDS: Cholestyramine/Sucrose 4 GM/PACKET PO (17:45)
[2024-02-08] MEDS: Juven (unflavored) Packet 1 PACKET PO (17:45)
[2024-02-08] MEDS: Ensure Clear 120 ML Liquid PO ×2 (17:52→21:04)
[2024-02-08] MEDS: Diphenoxylate/Atrop 1 Tablet PO ×2 (17:52→21:00)
--- NOTE | 2024-02-08 19:17 | NURSING ---
PT RETURNED TO FLOOR BY BED AT 1730. NO NEW ORDERS. 4MM POLYP REMOVED,AWAITING PATHOLOGY RESULTS. VITALS DONE,PT SITTING UP AND EATING SUPPER.
[2024-02-08] MEDS: Menthol/Lanolin/Calamine/Znox 113 GM Tube 1 APPLIC TOPICAL (21:06)
[2024-02-08] MEDS: Nystatin Powder 15gm Bottle 1 APPLIC TOPICAL (21:06)
[2024-02-08 21:35] VITALS: BP 140/70; PULSE 71; RESP 16
--- NOTE | 2024-02-08 22:07 | NURSING ---
Addendum entered by Carrie Mi 02/08/24 22:20: Patient rep (Prabha) notified of new findings and order per Dr. Ivy to send to ED. Rep expresses thanks for update, no concerns voiced at this time Original Note: Patient reports unable to feel sensation to bilat lower extremities distal to knees. Patient does report neuropathy to bilat hands and feet, states but I can't even feel any pressure anymore since my procedure today when legs and feet are touched. Patient reports this as a new finding. Patient had colonoscopy this date with Dr. Melissa. Patient reports was able to feel pressure to legs and move toes to right foot prior to colonoscopy. Patient unable to move toes to right foot, left foot toes previously amputated. Patient unable to lift bilat legs upon request or push/pull right foot. contacted via telephone, notified of assessment, new order received to send to ED for eval. Report called to Terra in ED, patient sent to ED room 9 bedside report provided to ED RN.
--- NOTE | 2024-02-09 03:38 | NURSING ---
Patient returns to unit from ED at this time, see ED discharge paperwork, DX:Neuropraxia. Per ED nurse 20G IV placed to LAC in ED.
[2024-02-09] MEDS: 0.9% Normal Saline (1000mL) 1,000 ML 75 ML IV (04:07)
[2024-02-09] MEDS: Sodium Bicarbonate 650 MG Tablet PO ×3 (05:11→21:13)
[2024-02-09] MEDS: Ensure Clear 120 ML Liquid PO ×4 (05:11→21:12)
[2024-02-09] MEDS: Diphenoxylate/Atrop 1 Tablet PO ×3 (05:11→21:13)
[2024-02-09 05:59] LABS: Absolute Lymphocyte Count 3.25 X10^3/uL (0.83-4.51); Absolute Neutrophil Count 8.9 X10^3/uL (2.0-7.7); Basophil# 0.16 X10^3/uL; Basophil% 1.2 % (0-1); Eosinophil# 0.29 X10^3/uL; Eosinophils% 2.2 % (0-5); Hematocrit 31.1 % (37-47); Hemoglobin 9.5 g/dL (12.0-15.0); Lymphocyte # 3.25 X10^3/ul (0.83-4.51); Lymphocyte % 24.1 % (19-41); Mean Corp Hgb Conc 30.5 g/dL (32-36); Mean Corpuscular Hgb 29.1 pg (27.0-32.0); Mean Corpuscular Volume 95.4 fL (81-99); Mean Platelet Vol. 10.2 fl (6.2-12.0); Monocyte# 0.85 X10^3/uL; Monocyte% 6.3 % (0-10); NRBC Flagged by Analyzer 0 % (0-5); Neutrophil # 8.85 X10^3/uL (2.7-7.7); Neutrophil % 65.7 % (47-70); Platelet Count 271 K/mm3 (150-450); RBC Distribution Width CV 15.8 % (11.6-14.6); RBC Distribution Width SD 55.9 fl (35.1-43.9); Red Blood Count 3.26 M/mm3 (4.2-5.4); White Blood Count 13.5 K/mm3 (4.4-11.0)
[2024-02-09 06:29] LABS: Anion Gap 6 (5-15); BUN 45 mg/dL (7-18); BUN/Creat Ratio 24.9 RATIO (10-20); Chloride 122 mmol/L (98-107); Creatinine, Serum 1.81 mg/dL (0.55-1.02); EST Glomerular Filtration Rate 30 mL/min (>60); Est Glom Filt Rate - Afr Amer 36 mL/min (>60); Estimated Creatinine Clearance 25.11 ml/min; Glucose 126 mg/dL (74-106); Potassium 3.5 mmol/L (3.5-5.1); Sodium Level 138 mmol/L (136-145)
[2024-02-09] MEDS: Juven (unflavored) Packet 1 PACKET PO ×2 (08:39→16:31)
[2024-02-09] MEDS: Menthol/Lanolin/Calamine/Znox 113 GM Tube 1 APPLIC TOPICAL ×2 (08:43→21:13)
[2024-02-09] MEDS: Nystatin Powder 15gm Bottle 1 APPLIC TOPICAL ×2 (08:43→21:13)
[2024-02-09] MEDS: Pantoprazole Sodium 40 MG Tablet PO (08:51)
[2024-02-09] MEDS: Folic Acid 1 MG Tablet PO (08:51)
[2024-02-09] MEDS: Cholestyramine/Sucrose 4 GM/PACKET PO ×2 (12:20→16:31)
[2024-02-09 13:08] VITALS: BP 142/70; PULSE 72; RESP 16; TEMP 36.9; O2SAT 98
[2024-02-09] MEDS: 0.9% Normal Saline (1000mL) 1,000 ML 100 ML IV ×2 (14:09→23:51)
[2024-02-09] MEDS: Cholecalciferol (Vit D3) 125 MCG CAPSULE (5,000 UNITS) PO (15:27)
[2024-02-09] MEDS: Lactobacillis Acidophilus 1 CAP PO (15:27)
--- NOTE | 2024-02-09 18:08 | PCM.PN.GU ---
Subjective Subjective Sitting up in bed, eating dinner. Reports that she is feeling a little bit better. No significant increase in her chronic back pain, specifically on the left side where the hydronephrosis has been. She continues to report no issues with voiding other than that she is going a lot. Objective Data Objective Data Vital Signs: Vital Signs Temp Pulse Resp BP Pulse Ox O2 Del Method 98.4 F 72 16 142/70 H 98 Room Air 02/09/24 13:08 02/09/24 13:08 02/09/24 13:08 02/09/24 13:08 02/09/24 13:08 02/09/24 13:08 Oxygen Delivery Method Room Air Weight: 53.479 kg Body Mass Index (BMI) 20.1 Intake & Output: Intake and Output for Last 24 Hours 02/07/24 02/08/24 02/09/24 23:59 23:59 23:59 Intake Total 2248.75 / 2248.75 1617.50 / 1617.50 1520 / 1520 Balance 2248.75 / 2248.75 1617.50 / 1617.50 1520 / 1520 Medical Nutrition Assessment Dietitian: Malnutrition Criteria Met Start: 02/01/24 11:19 Freq: Status: Active Protocol: Document 02/07/24 12:01 [facility] Nutrition Malnutrition Evidence of Malnutrition Exists Yes Malnutrition (severe): Chronic Evidenced By Suboptimal Energy Intake ( Severe),Weight Loss (Severe), Physical Changes (Severe) Clinical Problem Chronic Disease or Condition Related Malnutrition Etiology related to issues w/ swallowing and GI dysfunction making it difficulty to have adequate energy intake Signs/Symptoms as evidenced by res w/ <75% po intake of est nutritional needs x in past 4-5 weeks w/ n /v/d issues, 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 Status Active Problem 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 Dietitian 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s/Changes Continue Alfredo bid as ordered Continue regular diet as ordered - encourage snacks between meals as tolerated - consistency per FENCE INSTALLER Continue wayne flavored ensure clear 4 oz 4x/day w/ medpass for increase nutrition if consumed Lab / Micro Data 02/09/24 05:18 02/09/24 05:18 Labs: Laboratory Results - last 24 hr 02/09/24 05:18: WBC 13.5 H, RBC 3.26 L, Hgb 9.5 L, Hct 31.1 L, MCV 95.4, MCH 29.1, MCHC 30.5 L, RDW Std Deviation 55.9 H, RDW Coeff of Xin 15.8 H, Plt Count 271, MPV 10.2, Immature Gran % (Auto) 0.500, Neut % (Auto) 65.7, Lymph % (Auto) 24.1, [place] % (Auto) 6.3, Eos % (Auto) 2.2, Baso % (Auto) 1.2 H, Absolute Neuts (auto) 8.9 H, Absolute Lymphs (auto) 3.25, Nucleated RBC % 0, Sodium 138, Potassium 3.5, Chloride 122 H, Carbon Dioxide 10.0 L, Anion Gap 6, BUN 45 H, Creatinine 1.81 H, Estim Creat Clear Calc 25.11, Est GFR (MDRD) Af Amer 36 L, Est GFR (MDRD) Non-Af 30 L, BUN/Creatinine Ratio 24.9 H, Glucose 126 H, Calcium 8.0 L Micro: Microbiology 02/01/24 10:30 Stool Stool Occult Blood (SONG) - Final Physical Exam Const alert, oriented x3 and no apparent distress HEENT normocephalic, head/scalp atraumatic, hearing grossly normal bilaterally, external ears normal, external nose normal and moist oral mucous membranes Eyes General Eye: normal appearance of both eyes Neck supple General: trachea midline Chest inspection of chest normal Chest: symmetrical chest wall rise Resp normal respiratory effort, normal air movement and no retractions Cardio regular rate Narrative: No Nguyen catheter Skin no rashes or lesions noted, no jaundice, no petechiae and no mottling Neuro oriented x3 and CN's II-XII intact bilaterally Psych mental status grossly normal Assessment & Plan Assessment/Plan (1) Hydronephrosis: QUALIFIERS: Hydronephrosis type: unspecified Qualified Code(s): N13.30 - Unspecified hydronephrosis (2) Acute renal insufficiency: (3) Urge incontinence: PLAN: Plan With improving renal function and no significant left flank pain, and now that the abnormality on CT suggesting a colon mass has been resolved, I will plan to obtain a repeat renal ultrasound next week. If the hydronephrosis continues, we will discuss further evaluation with cystoscopy, retrograde pyelogram, ureteroscopy, stent. Plan discussed with patient.
[2024-02-09 21:30] VITALS: PULSE 72; O2SAT 98
[2024-02-10] MEDS: Ensure Clear 120 ML Liquid PO ×4 (06:49→20:33)
[2024-02-10] MEDS: Diphenoxylate/Atrop 1 Tablet PO ×3 (06:49→20:33)
[2024-02-10] MEDS: Sodium Bicarbonate 650 MG Tablet PO ×3 (06:49→20:35)
[2024-02-10] MEDS: Acetaminophen 500 MG Tablet 1000 MG PO (06:52)
[2024-02-10 06:57] LABS: Absolute Lymphocyte Count 4.03 X10^3/uL (0.83-4.51); Absolute Neutrophil Count 6.4 X10^3/uL (2.0-7.7); Basophil# 0.15 X10^3/uL; Basophil% 1.3 % (0-1); Eosinophil# 0.42 X10^3/uL; Eosinophils% 3.6 % (0-5); Hematocrit 29.5 % (37-47); Hemoglobin 9.2 g/dL (12.0-15.0); Lymphocyte # 4.03 X10^3/ul (0.83-4.51); Lymphocyte % 34.5 % (19-41); Mean Corp Hgb Conc 31.2 g/dL (32-36); Mean Corpuscular Hgb 29.3 pg (27.0-32.0); Mean Corpuscular Volume 93.9 fL (81-99); Mean Platelet Vol. 9.6 fl (6.2-12.0); Monocyte# 0.66 X10^3/uL; Monocyte% 5.7 % (0-10); NRBC Flagged by Analyzer 0 % (0-5); Neutrophil # 6.37 X10^3/uL (2.7-7.7); Neutrophil % 54.6 % (47-70); Platelet Count 250 K/mm3 (150-450); RBC Distribution Width CV 16.1 % (11.6-14.6); RBC Distribution Width SD 54.9 fl (35.1-43.9); Red Blood Count 3.14 M/mm3 (4.2-5.4); White Blood Count 11.7 K/mm3 (4.4-11.0)
[2024-02-10 07:06] LABS: Anion Gap 5 (5-15); BUN 50 mg/dL (7-18); BUN/Creat Ratio 32.1 RATIO (10-20); Calcium,Total 7.7 mg/dL (8.5-10.1); Chloride 124 mmol/L (98-107); Creatinine, Serum 1.56 mg/dL (0.55-1.02); EST Glomerular Filtration Rate 35 mL/min (>60); Est Glom Filt Rate - Afr Amer 42 mL/min (>60); Estimated Creatinine Clearance 29.14 ml/min; Glucose 70 mg/dL (74-106); Potassium 3.6 mmol/L (3.5-5.1); Sodium Level 142 mmol/L (136-145)
[2024-02-10] MEDS: Menthol/Lanolin/Calamine/Znox 113 GM Tube 1 APPLIC TOPICAL ×2 (09:27→20:38)
[2024-02-10] MEDS: Nystatin Powder 15gm Bottle 1 APPLIC TOPICAL ×2 (09:28→20:38)
[2024-02-10] MEDS: Folic Acid 1 MG Tablet PO (09:30)
[2024-02-10] MEDS: Juven (unflavored) Packet 1 PACKET PO ×2 (09:30→17:06)
[2024-02-10] MEDS: Lactobacillis Acidophilus 1 CAP PO (09:31)
[2024-02-10] MEDS: Cholecalciferol (Vit D3) 125 MCG CAPSULE (5,000 UNITS) PO (09:31)
[2024-02-10] MEDS: Pantoprazole Sodium 40 MG Tablet PO (09:31)
[2024-02-10] MEDS: 0.9% Normal Saline (1000mL) 1,000 ML 100 ML IV ×2 (09:55→20:31)
[2024-02-10] MEDS: Cholestyramine/Sucrose 4 GM/PACKET PO ×2 (11:43→17:40)
[2024-02-10 13:50] VITALS: PULSE 68; RESP 16; O2SAT 96
[2024-02-10 16:00] VITALS: BP 153/69; PULSE 61; RESP 16; TEMP 36.6; O2SAT 99
[2024-02-11] MEDS: Ensure Clear 120 ML Liquid PO ×4 (05:58→20:34)
[2024-02-11] MEDS: Diphenoxylate/Atrop 1 Tablet PO ×3 (05:58→20:35)
[2024-02-11] MEDS: Sodium Bicarbonate 650 MG Tablet PO ×3 (06:01→20:35)
[2024-02-11] MEDS: 0.9% Normal Saline (1000mL) 1,000 ML 100 ML IV ×2 (06:02→16:37)
[2024-02-11] MEDS: Cholecalciferol (Vit D3) 125 MCG CAPSULE (5,000 UNITS) PO (08:50)
[2024-02-11] MEDS: Lactobacillis Acidophilus 1 CAP PO (08:50)
[2024-02-11] MEDS: Folic Acid 1 MG Tablet PO (08:50)
[2024-02-11] MEDS: Pantoprazole Sodium 40 MG Tablet PO (08:50)
[2024-02-11] MEDS: Juven (unflavored) Packet 1 PACKET PO ×2 (08:50→16:42)
[2024-02-11] MEDS: Menthol/Lanolin/Calamine/Znox 113 GM Tube 1 APPLIC TOPICAL ×2 (09:00→20:37)
[2024-02-11] MEDS: Nystatin Powder 15gm Bottle 1 APPLIC TOPICAL ×2 (09:03→20:36)
--- NOTE | 2024-02-11 09:20 | NURSING ---
THIS NURSE IN TO CHECK PT IV SITE. PT STATED IF THIS ONE GOES BAD I DONT WANT ANY MORE,NANCY DONE BEING STUCK. EXAMINED SITE,LOOKS GOOD,APPLIED NETTED SLEEVE TO HELP KEEP IV IN. NS RUNNING 100 ML/HR PER ORDER. WILL CONTINUE TO MONITOR,RN AWARE.
[2024-02-11] MEDS: Cholestyramine/Sucrose 4 GM/PACKET PO ×2 (10:50→17:40)
[2024-02-11 14:16] VITALS: BP 157/75; PULSE 73; RESP 16; TEMP 36.7; O2SAT 97
[2024-02-11 21:00] VITALS: PULSE 75; RESP 16; O2SAT 98
[2024-02-12] MEDS: 0.9% Normal Saline (1000mL) 1,000 ML 100 ML IV ×2 (02:11→12:20)
[2024-02-12] MEDS: Diphenoxylate/Atrop 1 Tablet PO ×3 (05:45→21:23)
[2024-02-12] MEDS: Ensure Clear 120 ML Liquid PO ×4 (05:45→21:23)
[2024-02-12] MEDS: Sodium Bicarbonate 650 MG Tablet PO ×3 (05:45→21:25)
[2024-02-12 09:15] VITALS: PULSE 71; RESP 16; O2SAT 100
[2024-02-12] MEDS: Nystatin Powder 15gm Bottle 1 APPLIC TOPICAL ×2 (09:17→21:23)
[2024-02-12] MEDS: Menthol/Lanolin/Calamine/Znox 113 GM Tube 1 APPLIC TOPICAL ×2 (09:17→21:23)
[2024-02-12] MEDS: Folic Acid 1 MG Tablet PO (09:26)
[2024-02-12] MEDS: Lactobacillis Acidophilus 1 CAP PO (09:27)
[2024-02-12] MEDS: Juven (unflavored) Packet 1 PACKET PO ×2 (09:27→17:39)
[2024-02-12] MEDS: Pantoprazole Sodium 40 MG Tablet PO (09:27)
[2024-02-12] MEDS: Cholecalciferol (Vit D3) 125 MCG CAPSULE (5,000 UNITS) PO (09:27)
[2024-02-12] MEDS: traMADol 50 MG Tablet PO (11:12)
[2024-02-12] MEDS: Ondansetron ODT 4 MG Tablet PO (11:15)
[2024-02-12 14:20] VITALS: BP 142/68; PULSE 67; RESP 16; TEMP 36.6; O2SAT 99
[2024-02-12] MEDS: Cholestyramine/Sucrose 4 GM/PACKET PO (17:39)
--- NOTE | 2024-02-12 18:12 | US_ITS ---
STUDY: RENAL ULTRASOUND - COMPLETE REASON FOR EXAM: Female, 69 years old. LEFT hydronephrosis -- please compare to 02/01/24 ultrasound TECHNIQUE: Ultrasound evaluation of the kidneys was performed with real-time and static levy-scale imaging. COMPARISON: Comparison is made with prior study of February 01, 2024. FINDINGS: RIGHT KIDNEY: Normal location of the right kidney, which is normal in size. The right kidney measures 12.7 cm x 5 cm x 5.6 cm. There is a normal cortex of the right kidney. The renal cortex measures 1.5 cm. There is no right renal mass or cyst. There are no right renal calculi. There is no right hydronephrosis. DISTAL RIGHT URETER: There is non-visualization of the distal right ureter. There is no demonstrated right ureterovesical junction calculus. There is a visualized right ureteral jet. LEFT KIDNEY: Normal location of the left kidney, which is normal in size. The left kidney measures 12.6 cm x 5.6 cm x 6.3 cm. There is a normal cortex of the left kidney. The renal cortex measures 1.6 cm. There is no left renal mass or cyst. There are no left renal calculi. There is mild hydronephrosis of the left kidney. DISTAL LEFT URETER: There is non-visualization of the distal left ureter. There is no demonstrated left ureterovesical junction calculus. There is a visualized left ureteral jet. BLADDER: The distended urinary bladder has a volume of 267 ml. Echogenic debris is seen within the bladder. There is a normal wall thickness of the distended urinary bladder. There is no demonstrated mass within the urinary bladder. There are no demonstrated bladder calculi. US/Kidney and Bladder IMPRESSION: Stable mild left hydronephrosis. Debris is seen within the bladder. Electronically Signed: Ming Louise MD at 12:35 EDT ,
--- NOTE | 2024-02-12 22:01 | NURSING ---
Pt's IV in R wrist removed due to infiltration. Pt refusing IV insertion at this time, stated I have been poked so many times, I do not want another one inserted right now. This nurse educated pt on importance of ordered IV fluids and offered emotional support. Pt appreciative of education and reassurance but continues to decline at this time. Fluids encouraged and water pitcher refilled per pt's request.
[2024-02-13] MEDS: Diphenoxylate/Atrop 1 Tablet PO ×3 (05:47→20:04)
[2024-02-13] MEDS: Ensure Clear 120 ML Liquid PO ×4 (05:47→20:04)
[2024-02-13] MEDS: Sodium Bicarbonate 650 MG Tablet PO (05:47)
[2024-02-13] MEDS: Nystatin Powder 15gm Bottle 1 APPLIC TOPICAL ×2 (08:11→20:05)
[2024-02-13] MEDS: Menthol/Lanolin/Calamine/Znox 113 GM Tube 1 APPLIC TOPICAL ×2 (08:11→20:05)
[2024-02-13] MEDS: Pantoprazole Sodium 40 MG Tablet PO (08:13)
[2024-02-13] MEDS: Juven (unflavored) Packet 1 PACKET PO ×2 (08:13→17:01)
[2024-02-13] MEDS: Cholecalciferol (Vit D3) 125 MCG CAPSULE (5,000 UNITS) PO (08:13)
[2024-02-13] MEDS: Folic Acid 1 MG Tablet PO (08:13)
[2024-02-13] MEDS: Lactobacillis Acidophilus 1 CAP PO (08:13)
[2024-02-13 08:18] LABS: Anion Gap 6 (5-15); BUN 46 mg/dL (7-18); BUN/Creat Ratio 35.1 RATIO (10-20); Calcium,Total 7.3 mg/dL (8.5-10.1); Chloride 122 mmol/L (98-107); Creatinine, Serum 1.31 mg/dL (0.55-1.02); EST Glomerular Filtration Rate 43 mL/min (>60); Est Glom Filt Rate - Afr Amer 52 mL/min (>60); Glucose 85 mg/dL (74-106); Potassium 3.5 mmol/L (3.5-5.1); Sodium Level 141 mmol/L (136-145)
--- NOTE | 2024-02-13 10:41 | PCM.PN.REN ---
Subjective Subjective Sitting up in chair. Denies any complaints. Patient reports she been having multiple loose bowel movements but feels frequency is starting to slow up. Objective Data Objective Data Vital Signs: Vital Signs Temp Pulse Resp BP Pulse Ox O2 Del Method 97.9 F 67 16 142/68 H 99 Room Air 02/12/24 14:20 02/12/24 14:20 02/12/24 14:20 02/12/24 14:20 02/12/24 14:20 02/12/24 14:20 Oxygen Delivery Method Room Air Weight: 53.479 kg Body Mass Index (BMI) 20.1 Intake & Output: Intake and Output for Last 24 Hours 02/11/24 02/12/24 02/13/24 23:59 23:59 23:59 Intake Total 2911.67 / 2911.67 3796.67 / 3796.67 Balance 2911.67 / 2911.67 3796.67 / 3796.67 Medical Nutrition Assessment Dietitian: Malnutrition Criteria Met Start: 02/01/24 11:19 Freq: Status: Active Protocol: Document 02/07/24 12:01 [facility] (Rec: 02/07/24 12:01 [facility] Desktop) Nutrition Malnutrition Evidence of Malnutrition Exists Yes Malnutrition (severe): Chronic Evidenced By Suboptimal Energy Intake ( Severe),Weight Loss (Severe), Physical Changes (Severe) Clinical Problem Chronic Disease or Condition Related Malnutrition Etiology related to issues w/ swallowing and GI dysfunction making it difficulty to have adequate energy intake Signs/Symptoms as evidenced by res w/ <75% po intake of est nutritional needs x in past 4-5 weeks w/ n /v/d issues, 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 Status Active Problem 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 Dietitian 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s/Changes Continue Alfredo bid as ordered Continue regular diet as ordered - encourage snacks between meals as tolerated - consistency per [employer]IVER Continue wayne flavored ensure clear 4 oz 4x/day w/ medpass for increase nutrition if consumed Lab / Micro Data 02/10/24 06:14 02/13/24 07:53 Labs: Laboratory Results - last 24 hr 02/13/24 07:53: Sodium 141, Potassium 3.5, Chloride 122 H, Carbon Dioxide 13.0 L, Anion Gap 6, BUN 46 H, Creatinine 1.31 H, Estim Creat Clear Calc 34.70, Est GFR (MDRD) Af Amer 52 L, Est GFR (MDRD) Non-Af 43 L, BUN/Creatinine Ratio 35.1 H, Glucose 85, Calcium 7.3 L Micro: Microbiology 02/01/24 10:30 Stool Stool Occult Blood (SONG) - Final Radiography Diagnostic Testing: Radiology Impression Renal Ultrasound 02/12/24 18:12 IMPRESSION: Stable mild left hydronephrosis. Debris is seen within the bladder. Electronically Signed: Ming Louise MD at 12:35 EDT , Physical Exam Narrative Alert orient x 3, no apparent distress S1, S2, RRR Lung sounds clear Abdomen soft, positive bowel sounds No edema Const General Appearance: frail Assessment & Plan Assessment/Plan (1) Acute kidney injury: PLAN: 68 year old female with nausea, vomiting, profound weight loss, decreased oral food /fluid intake, ongoing diarrhea. Nephrology consulted in view of rising creatinine. - Suspect ANNIKA secondary to ischemic ATN. Patient is on IV fluids and with volume expansion renal function has improved with IV fluids. IV fluids stopped today. No acute indication for [employer]. Baseline serum creatinine around 1.1-1.2 mg/dL. Creatinine peaked at 3.26 mg/dL on 02/03, today creatinine 1.3mg/dL. Patient is nonoliguric. Renal function slowly improved. Encouraged patient to try and increase fluid and solute intake as best as she can. Blood pressures acceptable, not on any antihypertensives. Was on oral vancomycin for C. difficile. Patient is on protein supplement. Patient does not need renal diet restrictions. -Metabolic acidosis suspect secondary to ANNIKA and frequent loose bowel movements. Bicarb was as low as 10, today bicarb level is 13.0. Will increase oral bicarbonate. As renal function improves and less frequent loose bowel movements bicarbonate level should also improve.
--- NOTE | 2024-02-13 10:57 | MDS.RN ---
Information for the MDS was obtained from review of the clinical record, interview of resident, staff, and direct observation of resident?s care.
[2024-02-13] MEDS: Cholestyramine/Sucrose 4 GM/PACKET PO ×2 (11:05→17:01)
[2024-02-13 13:21] VITALS: BP 127/65; PULSE 64; RESP 14; TEMP 36.8; O2SAT 99
[2024-02-13] MEDS: Sodium Bicarbonate 650 MG Tablet 1300 MG PO ×2 (13:31→20:04)
--- NOTE | 2024-02-13 15:48 | CHAPLAIN ---
Type of Pastoral Visit ___ Initial Visit _x__ Follow-up Visit ___ On-call Visit ___ General Patient Visit ___ Spiritual Assessment ___ Family Conference ___ Bereavement ___ Rapid Response ___ Code Blue ___ Other (describe below) Pastoral Care Referral From _x__ Patient ___ Family ___ Nurse ___ Physician ___ Tumbler Drier Operator ___ Radial Drill Operator ___ Other (describe below) Sacrament/Intervention _x__ Active listening ___ Anointing ___ Mormon ___ Bereavement ___ Communion _x__ Dang exploration ___ _x__ Life review _x__ Prayer ___ Reconciliation ___ Sacrament of Sick _x__ Supportive presence ___ Wedding ___ Other (describe below) Pastoral Comments patient appears to be doing better and with more strength; however patient expresses her thoughts that are different from the medical team; pt is looking to how she can return to her own home where son and his large family currently live and where they can move to; pt speaks of her dang that God knows the truth and I just need to leave it to him; presence, conversation, and prayer given
[2024-02-14] MEDS: Ensure Clear 120 ML Liquid PO ×4 (05:54→20:54)
[2024-02-14] MEDS: Diphenoxylate/Atrop 1 Tablet PO ×3 (05:54→20:54)
[2024-02-14] MEDS: Sodium Bicarbonate 650 MG Tablet 1300 MG PO ×3 (05:54→20:54)
--- NOTE | 2024-02-14 07:56 | CON.PCM_ITS ---
Assessment & Plan Assessment/Plan (1) Non-pressure chronic ulcer of left heel and midfoot with fat layer exposed: (2) Type 2 diabetes mellitus with foot ulcer: QUALIFIERS: Diabetes mellitus termination clerk insulin use: with termination clerk use Qualified Code(s): E11.621 - Type 2 diabetes mellitus with foot ulcer; L97.509 - Non-pressure chronic ulcer of other part of unspecified foot with unspecified severity; Z79.4 - long-term (current) use of insulin (3) PAD (peripheral artery disease): PLAN: Plan Evaluation performed. There is small ulceration left heel down to subcutaneous tissue with no evidence of infection. Painted with betadine soln and applied gauze dressing - change daily. Right heel with area of pressure but nothing open - applied dry gauze dressing. Recommend use of offloading foam heel boots at all times to keep heels protected. No weightbearing left foot, ok for partial weightbearing right foot on toes. Podiatry will see weekly, thank you for consultation. HPI Consult Data Date of Consult: 02/14/24 HPI Narrative Reason for Consultation: Heel ulcers HPI Narrative: RED PRICE, is a 69 F who presents with hx of bilateral heel ulcerations. She is in TCU, she relates she believes there is small wound to the left heel, relates she believes right heel is healed. She is resting in bed, she relates she has offloading foam heel boots but she relates they are at home. She has no other foot/ankle compliants. [facility] Medical History (Updated 02/14/24 @ 07:[address] Cody Mota, CATHY) Acute renal insufficiency Brain tumor (benign) Chronic diarrhea Debility Deep venous thrombosis of distal end of left lower extremity Diabetic foot ulcer Gastroesophageal reflux disease Gastroparesis Generalized weakness History of cerebrovascular accident History of deep venous thrombosis (DVT) of distal vein of left lower extremity History of ischemic colitis History of myocardial infarction History of pneumonia Hydronephrosis Migraine Non-pressure chronic ulcer of other part of right foot with fat layer exposed Osteoarthritis of cervical and lumbar spine PAD (peripheral artery disease) Type 2 diabetes mellitus with diabetic polyneuropathy Ulcer of amputation stump of foot Unable to ambulate Urge incontinence Wound of left foot Home Medications albuterol sulfate 90 mcg/actuation aerosol inhaler (Ventolin HFA) 1 puff inhalat ion Q4H PRN PRN SHORTNESS OF BREATH #0 grams 03/25/21 [Rx Last Taken 2 Weeks Ago ~03/27/23] ondansetron 4 mg disintegrating tablet 4 mg PO Q6H PRN PRN NAUSEA #0 tabs 03/25/21 [Rx Last Taken 04/10/23] tramadol 50 mg tablet 50 mg PO Q6H PRN Pain 05/18/21 [History Last Taken Unknown] acetaminophen 325 mg tablet 975 mg PO TID PRN Pain 12/31/22 [History Last Taken 02/02/24 06:00] folic acid 1 mg tablet 1 mg PO DAILY supplement #30 tabs 02/15/23 [Rx Last Taken 04/09/23] Lactobacillus rhamnosus GG 10 billion cell capsule (Culturelle) 1 cap PO DAILY GUT HEALTH 04/10/23 [History Last Taken 04/09/23] cholecalciferol (vitamin D3) 125 mcg (5,000 unit) tablet 125 mcg PO DAILY SUPPLEMENT 04/10/23 [History Last Taken 04/09/23] diphenoxylate-atropine 2.5 mg-0.025 mg tablet 1 tab PO BID DIARRHEA 04/10/23 [ History Last Taken 04/10/23] pantoprazole 40 mg tablet,delayed release 40 mg PO DAILY GERD 04/10/23 [History Last Taken 02/02/24 06:00] ondansetron 4 mg disintegrating tablet 4 mg PO Q8H nausea #20 tabs 08/10/23 [Rx Last Taken Unknown] arginine 7 gram-glutam 7 gram-CaHMB 1.5 [id number] oral pwd pkt (Alfredo (with collagen)) 1 packet PO BID supplement 01/21/24 [History Last Taken Unknown] loperamide 2 mg capsule 2 mg PO Q12H diarrhea 01/21/24 [History Last Taken Unknown] vancomycin 125 mg capsule 125 mg PO BID 02/01/24 [History Last Taken Unknown] Allergy/AdvReac Type Severity Reaction Status Date / Time cefprozil Allergy Shortness Verified 02/08/24 14:50 of breath ceftriaxone Allergy Hives Verified 02/08/24 14:50 clindamycin Allergy Rash Verified 02/08/24 14:50 enalapril Allergy Other Verified 02/08/24 14:50 enoxaparin Allergy Rash Verified 02/08/24 14:50 heparin Allergy Rash Verified 02/08/24 14:50 levalbuterol Allergy Other Verified 02/08/24 14:50 morphine Allergy Shortness Verified 02/08/24 14:50 of breath Penicillins Allergy Anaphylaxis Verified 02/08/24 14:50 valsartan Allergy Other Verified 02/08/24 14:50 vancomycin Allergy Rash Verified 02/08/24 14:50 atorvastatin AdvReac Other Verified 02/08/24 14:50 rosuvastatin [From Crestor] AdvReac Other Verified 02/08/24 14:50 Family History Mother Cancer Lung CA w/ tobacco use history. Diabetes COPD (chronic obstructive pulmonary disease) Father Cancer Lung CA w/ tobacco use history. Diabetes COPD (chronic obstructive pulmonary disease) Heart disease Surgical History (Updated 02/05/24 @ 00:16 by Background Datiff) History of appendectomy History of eye surgery History of foot surgery History of lumpectomy History of tubal ligation Status post transmetatarsal amputation of left foot Tubal ligation status Social History household members: none Smoking Status: Never smoker alcohol intake: never substance use type: does not use Physical Exam Narrative Left heel with small ulceration down to subcutaneous tissue, no cellulitis, no maloder, no necrosis, no visible abscess, no evidence of infection - there is granular and viable tissue present, right heel with very small area of skin pressure changes to the heel but nothing open and no evidence of infection, healed TMA left, decreased sensation bilateral foot c/w chronic peripheral diana ropathy, no evidence of acute ischemia bilateral foot/ankle, no POP or pain on ROM to the foot or ankle bilateral. Const alert, oriented x3 and no apparent distress Medical Records Data Medical Nutrition Assessment Dietitian: Malnutrition Criteria Met Start: 02/01/24 11:19 Freq: Status: Active Protocol: Document 02/07/24 12:01 [facility] (Rec: 02/07/24 12:01 [facility] Desktop) Nutrition Malnutrition Evidence of Malnutrition Exists Yes Malnutrition (severe): Chronic Evidenced By Suboptimal Energy Intake ( Severe),Weight Loss (Severe), Physical Changes (Severe) Clinical Problem Chronic Disease or Condition Related Malnutrition Etiology related to issues w/ swallowing and GI dysfunction making it difficulty to have adequate energy intake Signs/Symptoms as evidenced by res w/ <75% po intake of est nutritional needs x in past 4-5 weeks w/ n /v/d issues, 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 Status Active Problem 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 Dietitian 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s/Changes Continue Alfredo bid as ordered Continue regular diet as ordered - encourage snacks between meals as tolerated - consistency per REPEAT CHIEF Continue wayne flavored ensure clear 4 oz 4x/day w/ medpass for increase nutrition if consumed Lab / Micro Data 02/10/24 06:14 02/13/24 07:53 Labs: Laboratory Results - last 24 hr 02/13/24 07:53: Sodium 141, Potassium 3.5, Chloride 122 H, Carbon Dioxide 13.0 L , Anion Gap 6, BUN 46 H, Creatinine 1.31 H, Estim Creat Clear Calc 34.70, Est GFR (MDRD) Af Amer 52 L, Est GFR (MDRD) Non-Af 43 L, BUN/Creatinine Ratio 35.1 H , Glucose 85, Calcium 7.3 L
[2024-02-14] MEDS: Pantoprazole Sodium 40 MG Tablet PO (09:41)
[2024-02-14] MEDS: Folic Acid 1 MG Tablet PO (09:41)
[2024-02-14] MEDS: Juven (unflavored) Packet 1 PACKET PO ×2 (09:41→16:31)
[2024-02-14] MEDS: Lactobacillis Acidophilus 1 CAP PO (09:41)
[2024-02-14] MEDS: Cholecalciferol (Vit D3) 125 MCG CAPSULE (5,000 UNITS) PO (09:42)
[2024-02-14] MEDS: Nystatin Powder 15gm Bottle 1 APPLIC TOPICAL ×2 (09:42→20:59)
[2024-02-14] MEDS: Menthol/Lanolin/Calamine/Znox 113 GM Tube 1 APPLIC TOPICAL ×2 (09:47→20:54)
--- NOTE | 2024-02-14 09:51 | NURSING ---
INTO SEE PT PER CONSULT. SEE NEW ORDERS. PT CALLED DAUGHTER TO BRING IN PT HEEL BOOTS FROM HOME. PT DOES NOT LIKE OURS AND STATED THEY DO NOT WORK WELL.
[2024-02-14 10:50] VITALS: PULSE 82; RESP 16; O2SAT 98
[2024-02-14] MEDS: Cholestyramine/Sucrose 4 GM/PACKET PO ×2 (11:24→17:34)
[2024-02-14 13:24] VITALS: BP 136/68; PULSE 66; RESP 14; TEMP 36.3; O2SAT 98
--- NOTE | 2024-02-14 16:04 | CASEMGMT ---
Social Work SW was notified that patient is requesting to be DC home this Monday02/16/24. SW met with pt to discuss DC plans. SW informed patient that therapy does not feel pt is ready for DC and would like to continue working with pt. EDER educated pt Medicare is still covering her stay. Pt very concerned about the copays. She has not contacted her secondary insurance yet to see if it will cover the medicare copays that begin on day 21. Pt was agreeable to have SW assist her with contacting insurance company tomorrow. This worker also educated patient on when 20 days are up which would be 02/20/24. Pt was very adamant that she will not or cannot stay if her secondary does not cover 100%. Pt then stated she might decide to go home 02/16/24 even if it does cover at 100% because she doesn't think more therapy is going to help her much. She said I have just had it. She discussed how she has been in the hospital for so long and just wants to get home. She stated she and her sister will find a way to make it work. She again stated she does not want home health care. This worker offered to make referral to see if she would be eligible for PASSPORT services and she declined that and said I want nothing to do with Medicaid. Pt sister will be coming in tomorrow to participate in therapy session. SW will follow up with patient tomorrow. Birdie DAVIDSON
[2024-02-15] MEDS: Diphenoxylate/Atrop 1 Tablet PO ×3 (05:22→21:58)
[2024-02-15] MEDS: Ensure Clear 120 ML Liquid PO ×4 (05:22→21:58)
[2024-02-15] MEDS: Sodium Bicarbonate 650 MG Tablet 1300 MG PO ×3 (05:23→21:59)
[2024-02-15 05:49] LABS: Absolute Lymphocyte Count 4.39 X10^3/uL (0.83-4.51); Absolute Neutrophil Count 6.8 X10^3/uL (2.0-7.7); Basophil% 0.8 % (0-1); Eosinophil# 0.39 X10^3/uL; Eosinophils% 3.1 % (0-5); Hematocrit 28.3 % (37-47); Hemoglobin 9.3 g/dL (12.0-15.0); Lymphocyte # 4.39 X10^3/ul (0.83-4.51); Lymphocyte % 35.2 % (19-41); Mean Corp Hgb Conc 32.9 g/dL (32-36); Mean Corpuscular Hgb 29.6 pg (27.0-32.0); Mean Corpuscular Volume 90.1 fL (81-99); Mean Platelet Vol. 9.8 fl (6.2-12.0); Monocyte# 0.75 X10^3/uL; NRBC Flagged by Analyzer 0 % (0-5); Neutrophil # 6.81 X10^3/uL (2.7-7.7); Neutrophil % 54.6 % (47-70); Platelet Count 266 K/mm3 (150-450); RBC Distribution Width CV 16.6 % (11.6-14.6); RBC Distribution Width SD 54.3 fl (35.1-43.9); Red Blood Count 3.14 M/mm3 (4.2-5.4); White Blood Count 12.5 K/mm3 (4.4-11.0)
[2024-02-15 06:27] LABS: Anion Gap 6 (5-15); BUN 54 mg/dL (7-18); BUN/Creat Ratio 43.5 RATIO (10-20); Calcium,Total 7.7 mg/dL (8.5-10.1); Chloride 120 mmol/L (98-107); Creatinine, Serum 1.24 mg/dL (0.55-1.02); EST Glomerular Filtration Rate 46 mL/min (>60); Est Glom Filt Rate - Afr Amer 55 mL/min (>60); Estimated Creatinine Clearance 36.66 ml/min; Glucose 66 mg/dL (74-106); Potassium 3.3 mmol/L (3.5-5.1); Sodium Level 142 mmol/L (136-145)
[2024-02-15] MEDS: Juven (unflavored) Packet 1 PACKET PO ×2 (09:21→16:50)
[2024-02-15] MEDS: Folic Acid 1 MG Tablet PO (09:22)
[2024-02-15] MEDS: Pantoprazole Sodium 40 MG Tablet PO (09:22)
[2024-02-15] MEDS: Lactobacillis Acidophilus 1 CAP PO (09:22)
[2024-02-15] MEDS: Cholecalciferol (Vit D3) 125 MCG CAPSULE (5,000 UNITS) PO (09:22)
[2024-02-15] MEDS: Potassium Chloride Oral Tablet 20 MEQ PO (09:23)
[2024-02-15] MEDS: Nystatin Powder 15gm Bottle 1 APPLIC TOPICAL ×2 (09:24→21:58)
[2024-02-15] MEDS: Menthol/Lanolin/Calamine/Znox 113 GM Tube 1 APPLIC TOPICAL ×2 (09:24→21:59)
[2024-02-15] MEDS: Cholestyramine/Sucrose 4 GM/PACKET PO ×2 (11:25→18:22)
--- NOTE | 2024-02-15 11:51 | CASEMGMT ---
Social Work SW met with patient today to attempt to help pt contact her secondary insurance to find out copay coverage. Pt stated she did not want to call because she has made up her mind she is leaving tomorrow (02/15) and doesn't need to know if she has coverage or not. Pt sister came in for caregiving training today during therapy but pt refused to get out of bed for training. Pt stated she feels her sister can help her at home enough and her 2 daughters will also be helping out. PT stated she is going to get volunteers to come to her home through [employer]. Pt is going to call [employer] to set up transportation home tomorrow. Pt declined any home health or any other services at [place]. EDER spoke with who stated he will approve [place] on 02/16/24. Birdie DAVIDSON
[2024-02-15 13:54] VITALS: BP 156/78; PULSE 78; RESP 20; TEMP 36.4; O2SAT 99
--- NOTE | 2024-02-15 14:46 | CASEMGMT ---
Social Work SW received voicemail that [facility] is unable to provide transportation on 02/15. SW updated patient on same and stated they might be able to on 02/19/24. Pt stated she would work on it. Pt called SW later in day and stated she got a ride and will be picked up on 02/16/24 at 11:00. She declined to give SW name of her ride. Birdie DAVIDSON
--- NOTE | 2024-02-15 14:50 | CHAPLAIN ---
Type of Pastoral Visit ___ Initial Visit _x__ Follow-up Visit ___ On-call Visit ___ General Patient Visit ___ Spiritual Assessment ___ Family Conference ___ Bereavement ___ Rapid Response ___ Code Blue ___ Other (describe below) Pastoral Care Referral From _x__ Patient _x_ Family ___ Nurse ___ Physician ___ Record Cutter ___ Explosives Mixer Operator ___ Other (describe below) Sacrament/Intervention _x__ Active listening ___ Anointing ___ Methodist ___ Bereavement ___ Communion _x__ Dang exploration ___ _x__ Life review _x__ Prayer ___ Reconciliation ___ Sacrament of Sick _x__ Supportive presence ___ Wedding ___ Other (describe below) Pastoral Comments billet worker was approached by the sister of this patient in the hallway who was just on my way to find you as I need to talk about ...; sister is expressing great frustration of the decisions that patient is making about returning home against medical advice; according to the sister the patient is refusing any thought of additional help through medicaid and is being bull headed; sister says that family members are not yet available to help assist at the home; time to listen and offer prayer with this sister who is the POA for healthcare; sister states that she understands her role in decisions and knows that the patient is mentally clear and able to make her own decisions at this time met with patient in the room alone; asked pt to describe her situation and decisions about future care; pt affirms what the sister had stated; pt wants to go home tomorrow, before her insurance days are up and does not want to sign up for welfare and lose my home; pt states that she has a plan for transportation and will have some help coming eventually from [employer] and family; pt believes that she has been given conflicting diagnosis and advice about her admission and discharge possibilities; asked patient to see and consider all the offers of support and assistance; pt states that she has prayed about it and this is final; this billet worker affirmed pt in that all that is wanted is for her to be safe and able to care for her needs and life; pt agrees but insists that she will be going home; at this time the SW member came to state that transportation is not available until Monday and that she will still be eligible for her insurance to cover stay until Monday; pt agrees that she will wait until Monday to go home; this billet worker affirms decision and gives thought that this could be for her best and for her safety; pt agrees and welcomes a prayer for healing and getting home safely;
[2024-02-15 20:00] VITALS: PULSE 75; O2SAT 98
--- NOTE | 2024-02-15 21:06 | DS.PCM_ITS ---
Providers Date of Admission: 01/31/24 Primary Care Physician: Dr. Cody Billings MD Consultations 01/31/24 17:30 Consult: Gastroenterology Routine Consulting Provider: [facility] Reason for Consult: Intractable n/v/d. EMERGENT Consult: No Notified: Yes Date Notified: 01/31/24 Time Notified: 18:27 Method of Notification: Text 02/01/24 07:34 Consult: Nephrology Routine Consulting Provider: Peter Moore Reason for Consult: ANNIKA EMERGENT Consult: No MD Notified: Yes Date Notified: 02/01/24 Time Notified: 07:34 Method of Notification: Answering Service 02/02/24 07:35 Consult: Urology Routine Consulting Provider: Lori Hernandez Reason for Consult: Mild left hydronephrosis, ANNIKA. EMERGENT Consult: No Notified: Yes Date Notified: 02/02/24 Time Notified: 07:35 Method of Notification: Answering Service 02/07/24 07:30 Consult: Gastroenterology Routine Consulting Provider: [facility] Reason for Consult: consider colonoscopy 2/[address] abdomen/pelvis results EMERGENT Consult: No MD Notified: Yes Date Notified: 02/07/24 Time Notified: 08:00 Method of Notification: Text 02/13/24 07:54 Consult: Podiatry Routine Consulting Provider: Juan Amador Reason for Consult: Bilateral heel wounds. EMERGENT Consult: No MD Notified: Yes Date Notified: 02/13/24 Time Notified: 09:54 Method of Notification: Answering Service Reason For Visit: ACUTE NAUSEA AND VOMITITING Diagnosis Discharge Diagnosis (1) Non-pressure chronic ulcer of left heel and midfoot with fat layer exposed: Status: Chronic Code(s): L97.422 - Non-pressure chronic ulcer of left heel and midfoot with fat layer exposed (2) Type 2 diabetes mellitus with foot ulcer: Status: Acute Code(s): E11.621 - Type 2 diabetes mellitus with foot ulcer; L97.509 - Non-pressure chronic ulcer of other part of unspecified foot with unspecified severity Qualifiers: 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: with senior care use Qualified Code(s): E11.621 - Type 2 diabetes mellitus with foot ulcer; L97.509 - Non- pressure chronic ulcer of other part of unspecified foot with unspecified severity; 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 * Debility - PT/OT. * Pain - Tylenol 1000mg q6 prn pain (1-5), Tramadol 50mg q6 prn pain (6-10). * Bowel - diarrhea, monitor. * Adult immunization - Administer pneumonia vaccine, covid vaccine, flu vaccine as appropriate. * DVT prophylaxis - Hold, anemia. * COPD - Albuterol 1 uff q4 prn. * Vitamin D deficiency - D3 125mcg daily. * Folate deficiency - Folic acid 1mg daily. * Nutrition - Alfredo 1 packet bidcm. * GI prophylaxis - Lactobacillus 1 capsule daily. * Nausea/vomiting - Zofran odt 4mg q6h prn, consult Dr. Melissa for expert management. * GERD - Pantoprazole 40mg daily. * C. diff carrier - Vancomycin 125mg bid x 5 days. Medications at Discharge Home Medications albuterol sulfate 90 mcg/actuation aerosol inhaler (Ventolin HFA) 1 puff inhalation Q4H PRN PRN SHORTNESS OF BREATH #0 grams 03/25/21 ondansetron 4 mg disintegrating tablet 4 mg PO Q6H PRN PRN NAUSEA #0 tabs 03/25/21 folic acid 1 mg tablet 1 mg PO DAILY supplement #30 tabs 02/15/23 Lactobacillus rhamnosus GG 10 billion cell capsule (Culturelle) 1 cap PO DAILY GUT HEALTH 04/10/23 cholecalciferol (vitamin D3) 125 mcg (5,000 unit) tablet 125 mcg PO DAILY SUPPLEMENT 04/10/23 pantoprazole 40 mg tablet,delayed release 40 mg PO DAILY GERD 04/10/23 acetaminophen 500 mg tablet 1,000 mg (2 x 500 mg) PO Q6H PRN PRN Pain Score 1-5 #0 tabs 02/15/24 arginine 7 gram-glutam 7 gram-CaHMB 1.5 [id number] oral pwd pkt (Alfredo (with collagen)) 1 packet PO BIDCM 30 days #60 ea 02/15/24 cholestyramine (with sugar) 4 gram powder for susp in a packet 4 g PO BID@1100,1800 30 days #60 ea 02/15/24 diphenoxylate-atropine 2.5 mg-0.025 mg tablet 1 tab PO TID 30 days #90 tabs 02/15/24 potassium chloride 20 mEq tablet,extended release(part/cryst) 20 meq PO DAILYCM 30 days #30 tabs 02/15/24 sodium bicarbonate 650 mg tablet 1,300 mg (2 x 650 mg) PO TID 30 days #180 tabs 02/15/24 tramadol 50 mg tablet 50 mg PO Q6H PRN PRN Pain Score 6-10 Or Pre Pt/Ot 7 days #28 tabs 02/15/24 Hospital Course Operations None Procedures Colonoscopy and EGD Summary of Care Provided Minutes Spent on Discharge: 35 Hospital Course: 68 year old female with below past medical history hospitalized for nausea, vomiting, diarrhea, ANNIKA, dehydration, complicated by UTI, anemia, admitted to TCU with debility, here for rehabilitation, strengthening, prior to discharge home alone. 02/02/2024 Dr. Melissa EGD: Impressions : - LA Grade C erosive esophagitis with bleeding. Treated with a heater probe. - Esophageal ulcer with no stigmata of recent bleeding. Biopsied. - Medium-sized hiatal hernia. - Normal second portion of the duodenum. 02/08/2024 Dr. Melissa colonoscopy: Impressions : - One 4 mm polyp at the hepatic flexure, removed with a cold snare. Resected and retrieved. - Diverticulosis in the recto-sigmoid colon, in the sigmoid colon and in the descending colon. - Localized moderate inflammation was found in the ascending colon secondary to colitis. Biopsied. Resident has mild left hydronephrosis, follow up with Dr. Hernandez as outpatient. Discharge home alone with family/friend support 02/16/2024. Physical Exam Const alert General Appearance: cooperative HEENT normocephalic Eyes PERRL and EOMs intact bilaterally Neck supple, no JVD and no carotid bruits Resp normal respiratory effort, normal air movement and clear to auscultation bilaterally Cardio regular rate and regular rhythm GI normal to inspection, nondistended, normoactive bowel sounds, non-tender and non-distended Extremity normal capillary refill General Extremity: Negative for edema Skin no rashes or lesions noted Skin Narrative: Bilateral heel ulcers. General Skin Exam: no breakdown Psych affect normal Appearance: appropriate Medical Records Data Medical Nutrition Assessment Dietitian: Malnutrition Criteria Met Start: 02/01/24 11:19 Freq: Status: Active Protocol: Document 02/07/24 12:01 [facility] (Rec: 02/07/24 12:01 [facility] Desktop) Nutrition Malnutrition Evidence of Malnutrition Exists Yes Malnutrition (severe): Chronic Evidenced By Suboptimal Energy Intake ( Severe),Weight Loss (Severe), Physical Changes (Severe) Clinical Problem Chronic Disease or Condition Related Malnutrition Etiology related to issues w/ swallowing and GI dysfunction making it difficulty to have adequate energy intake Signs/Symptoms as evidenced by res w/ <75% po intake of est nutritional needs x in past 4-5 weeks w/ n /v/d issues, 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 Status Active Problem 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 Dietitian 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s/Changes Continue Alfredo bid as ordered Continue regular diet as ordered - encourage snacks between meals as tolerated - consistency per FNPS Continue wayne flavored ensure clear 4 oz 4x/day w/ medpass for increase nutrition if consumed Weight / BMI Weight Weight: 53.479 kg Body Mass Index (BMI) 20.1 ABG / Lab / Microbiology Data 02/15/24 05:23 02/15/24 05:23 Laboratory: Laboratory Results - last 24 hr 02/15/24 05:23: WBC 12.5 H, RBC 3.14 L, Hgb 9.3 L, Hct 28.3 L, MCV 90.1, MCH 29.6, MCHC 32.9 D, RDW Std Deviation 54.3 H, RDW Coeff of Xin 16.6 H, Plt Count 266, MPV 9.8, Immature Gran % (Auto) 0.300, Neut % (Auto) 54.6, Lymph % (Auto) 35.2, Hickman % (Auto) 6.0, Eos % (Auto) 3.1, Baso % (Auto) 0.8, Absolute Neuts (auto) 6.8, Absolute Lymphs (auto) 4.39, Nucleated RBC % 0, Sodium 142, Potassium 3.3 L, Chloride 120 H, Carbon Dioxide 16.0 L, Anion Gap 6, BUN 54 H, Creatinine 1.24 H, Estim Creat Clear Calc 36.66, Est GFR (MDRD) Af Amer 55 L, Est GFR (MDRD) Non-Af 46 L, BUN/Creatinine Ratio 43.5 H, Glucose 66 L, Calcium 7 .7 L Microbiology: Microbiology 02/01/24 10:30 Stool Stool Occult Blood (SONG) - Final D/C Instructions Discharge Diet: No restrictions Discharge Activity: Return to Normal Activity, May Shower and Use Walker Weight Bearing Status: Partial weight bearing (Right foot.) and No weight bearing (Left foot.) Call your doctor if you observe: Fever of 101 or Higher, Inability to urinate, I nability to have a bowel movement, Shortness of breath, Dizziness, Fainting spells, Swelling in the ankles, Chest pain and Uncontrolled pain Additional Instructions: Discharge home alone with family/friend support 02/16/2024. Please Follow Up With: Bandar Melissa DO When: 4 weeks. Meaningful Use Info Meaningful Use Meaningful Use Diagnoses (Choose all that apply): None applicable Ischemic Stroke Statin Dosing Therapy Reference: STATIN DOSE THERAPY REFERENCE: * Patients > 75 years receive moderate or high dose statin therapy. * Patients 75 years or YOUNGER should receive HIGH intensity statin dose unless contraindicated. You will be required to document reason for non-treatment if statin daily dose does not meet guidelines. HIGH DOSE STATIN THERAPY DAILY Atorvastatin > than or = to 40 mg Rosuvastatin > than or = to 20 mg Amlodipine + Atorvastatin > than or = to 2.5/40 mg Ezetimibe + Simvastatin 10/80 mg Simvastatin 80mg Discharge Plan Admission Admit Date/Time: 01/31/24 13:50 Primary Reason for Your Visit: Debility. Attending Provider: Enrique Ivy Chi Primary Care Provider: Cody Billings Consulting Providers: Peter Moore; Lori Hernandez; Juan Amador Instructions Additional Instructions / Restrictions: Discharge home alone with family/friend support 02/16/2024. Discharge Orders/Prescriptions Prescriptions: New diphenoxylate-atropine 2.5-0.025 mg Tablet 1 tab PO TID 30 Days Qty: 90 0RF tramadol 50 mg Tablet 50 mg PO Q6H PRN PRN (Reason: Pain Score 6-10 Or Pre Pt/Ot) 7 Days Qty: 28 0RF acetaminophen 500 mg Tablet 1,000 mg PO Q6H PRN PRN (Reason: Pain Score 1-5) Qty: 0 0RF potassium chloride 20 mEq Tablet,Er Particles/Crystals 20 meq PO DAILYCM 30 Days Qty: 30 0RF sodium bicarbonate 650 mg Tablet 1,300 mg PO TID 30 Days Qty: 180 0RF cholestyramine (with sugar) 4 gram Powder In Packet 4 g PO BID@1100,1800 30 Days Qty: 60 0RF Alfredo (with collagen) 7-7-1.5 gram Powder In Packet 1 packet PO BIDCM 30 Days Qty: 60 0RF Continued folic acid 1 mg tablet 1 mg PO DAILY Qty: 30 11RF albuterol sulfate [Ventolin HFA] 90 mcg/actuation Hfa Aerosol Inhaler 1 puff inhalation Q4H PRN PRN (Reason: SHORTNESS OF BREATH) Qty: 0 0RF ondansetron 4 mg Tablet,Disintegrating 4 mg PO Q6H PRN PRN (Reason: NAUSEA) Qty: 0 0RF pantoprazole 40 mg Tablet,Delayed Release (Dr/Ec) 40 mg PO DAILY Culturelle 10 billion cell Capsule 1 cap PO DAILY cholecalciferol (vitamin D3) 125 mcg (5,000 unit) Tablet 125 mcg PO DAILY Discontinued tramadol 50 mg Tablet 50 mg PO Q6H PRN (Reason: Pain) acetaminophen 325 mg Tablet 975 mg PO TID PRN (Reason: Pain) diphenoxylate-atropine 2.5-0.025 mg tablet 1 tab PO BID Patient Comments: TAKE 1 TABLET BY MOUTH TWICE A DAY NEEDED FOR DIARRHEA loperamide 2 mg capsule 2 mg PO Q12H Patient Comments: TAKE 1 CAPSULE BY MOUTH TWICE A DAY Alfredo (with collagen) 7-7-1.5 gram powder in packet 1 packet PO BID Rx Instructions: mix 1 packet with 8-10 oz liquid vancomycin 125 mg capsule 125 mg PO BID ondansetron 4 mg tablet,disintegrating 4 mg PO Q8H Qty: 20 0RF Hold Instructions: Ordered Referrals / Follow Up: Lori Hernandez MD [Med Staff - Active Staff] - Within 2 Weeks Peter Moore MD [Med Staff - Consulting] - Within 2 Weeks Cody Billings MD [Primary Care Provider] - (Zulay will call & set up a virtual appointment when she get's home) Friend,Bandar, [Med Staff - Active Staff] - Within 1 Month Disposition Disposition (needs filled in before D/C Order can be placed): Home, Self Care
[2024-02-16] MEDS: Sodium Bicarbonate 650 MG Tablet 1300 MG PO ×2 (05:37→13:17)
[2024-02-16] MEDS: Diphenoxylate/Atrop 1 Tablet PO ×2 (05:37→13:17)
[2024-02-16] MEDS: Ensure Clear 120 ML Liquid PO ×2 (05:37→11:16)
[2024-02-16 06:00] VITALS: PULSE 66; O2SAT 98
[2024-02-16] MEDS: Folic Acid 1 MG Tablet PO (09:19)
[2024-02-16] MEDS: Lactobacillis Acidophilus 1 CAP PO (09:19)
[2024-02-16] MEDS: Juven (unflavored) Packet 1 PACKET PO (09:19)
[2024-02-16] MEDS: Potassium Chloride Oral Tablet 20 MEQ PO (09:19)
[2024-02-16] MEDS: Pantoprazole Sodium 40 MG Tablet PO (09:20)
[2024-02-16] MEDS: Nystatin Powder 15gm Bottle 1 APPLIC TOPICAL (09:20)
[2024-02-16] MEDS: Menthol/Lanolin/Calamine/Znox 113 GM Tube 1 APPLIC TOPICAL (09:20)
[2024-02-16] MEDS: Cholecalciferol (Vit D3) 125 MCG CAPSULE (5,000 UNITS) PO (09:20)
[2024-02-16] MEDS: Cholestyramine/Sucrose 4 GM/PACKET PO (11:14)
--- NOTE | 2024-02-16 11:18 | CASEMGMT ---
Social Work SW met with patient and completed DC MDS interviews. BIMS PHQ2 0/0 Birdie DAVIDSON
--- NOTE | 2024-02-16 11:20 | CASEMGMT ---
Discharge Plan Pt being DC home today per her request. Pt was not interested in staying longer to complete recommended therapy plan. Pt declined any offer for [facility] assistance. Pt stated she feels she has connections needed. Her sister will be staying with her as well as her 2 daughters providing assist. Pt is getting volunteers through [employer] to help. Pt was given resources that were identified during SDH interview for transportation and meals. Birdie DAVIDSON
--- NOTE | 2024-02-16 11:40 | PN.URO_ITS ---
Subjective Subjective Feeling great, no flank pain. Leaking but no hematuria or dysuria. She agrees to follow up with me after discharge. Objective Data Objective Data Vital Signs: Vital Signs Temp Pulse Resp BP Pulse Ox O2 Del Method 97.5 F L 66 20 H 156/78 H 98 Room Air 02/15/24 13:54 02/16/24 06:00 02/15/24 13:54 02/15/24 13:54 02/16/24 06:00 02/16/24 06:00 Oxygen Delivery Method Room Air Weight: 53.479 kg Body Mass Index (BMI) 20.1 Intake & Output: Intake and Output for Last 24 Hours 02/14/24 02/15/24 02/16/24 23:59 23:59 23:59 Intake Total 1320 / 1320 840 / 840 240 / 240 Balance 1320 / 1320 840 / 840 240 / 240 Medical Nutrition Assessment Dietitian: Malnutrition Criteria Met Start: 02/01/24 11:19 Freq: Status: Active Protocol: Document 02/07/24 12:01 [facility] (Rec: 02/07/24 12:01 [facility] Desktop) Nutrition Malnutrition Evidence of Malnutrition Exists Yes Malnutrition (severe): Chronic Evidenced By Suboptimal Energy Intake ( Severe),Weight Loss (Severe), Physical Changes (Severe) Clinical Problem Chronic Disease or Condition Related Malnutrition Etiology related to issues w/ swallowing and GI dysfunction making it difficulty to have adequate energy intake Signs/Symptoms as evidenced by res w/ <75% po intake of est nutritional needs x in past 4-5 weeks w/ n /v/d issues, 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 Status Active Problem 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 Dietitian 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s/Changes Continue Alfredo bid as ordered Continue regular diet as ordered - encourage snacks between meals as tolerated - consistency per ASSISTANT PROFESSOR OF RADIOLOGY Continue wayne flavored ensure clear 4 oz 4x/day w/ medpass for increase nutrition if consumed Lab / Micro Data 02/15/24 05:23 02/15/24 05:23 Micro: Microbiology 02/01/24 10:30 Stool Stool Occult Blood (SONG) - Final Assessment & Plan Assessment/Plan (1) Hydronephrosis: QUALIFIERS: Hydronephrosis type: unspecified Qualified Code(s): N13.30 - Unspecified hydronephrosis PLAN: Plan repeat renal ultrasound in 3 months follow up with me after discharge
[2024-02-16 15:00] VITALS: BP 152/73; PULSE 75; RESP 16; TEMP 36.4; O2SAT 99
[2024-02-16 15:21] VITALS: BP 152/73; PULSE 75; RESP 16; TEMP 36.4; O2SAT 99
--- NOTE | 2024-02-20 15:21 | NURSING ---
Jackie Silverman Picked up pt's Medication [facility].
== END 2024-02-16 15:00 | disposition home or self-care (01) | DRG 689 ==
PROVIDERS: Internal Medicine Gastroenterology; Internal Medicine Nephrology; Admitting Provider Family Medicine Geriatric Medicine; PCP Family Medicine; Visit Provider Family Medicine Geriatric Medicine
DX: N13.6 Pyonephrosis (principal); K21.01 Gastro-esophageal reflux disease with esophagitis, with bleeding; E87.20 Acidosis, unspecified; I69.351 Hemiplegia and hemiparesis following cerebral infarction affecting right dominant side; K22.10 Ulcer of esophagus without bleeding; L97.422 Non-pressure chronic ulcer of left heel and midfoot with fat layer exposed; N17.0 Acute kidney failure with tubular necrosis; E11.42 Type 2 diabetes mellitus with diabetic polyneuropathy; J44.9 Chronic obstructive pulmonary disease, unspecified; E11.43 Type 2 diabetes mellitus with diabetic autonomic (poly)neuropathy; E11.51 Type 2 diabetes mellitus with diabetic peripheral angiopathy without gangrene; E11.621 Type 2 diabetes mellitus with foot ulcer; Z79.4 Long term (current) use of insulin; K21.9 Gastro-esophageal reflux disease without esophagitis; E53.8 Deficiency of other specified B group vitamins; E55.9 Vitamin D deficiency, unspecified; K52.839 Microscopic colitis, unspecified; K57.30 Diverticulosis of large intestine without perforation or abscess without bleeding; K63.5 Polyp of colon; K44.9 Diaphragmatic hernia without obstruction or gangrene; B96.1 Klebsiella pneumoniae [K. pneumoniae] as the cause of diseases classified elsewhere; B96.20 Unspecified Escherichia coli [E. coli] as the cause of diseases classified elsewhere; Z86.718 Personal history of other venous thrombosis and embolism; Z22.8 Carrier of other infectious diseases; Z79.899 Other long term (current) drug therapy; N39.41 Urge incontinence
CPT/HCPCS: 36415; 76770; 80048; 81025; 82274; 82306; 82570; 84156; 84300; 85014; 85018; 85025; 86920; 86922; 92526; 92610; 97110; 97162; 97166; 97530; 97535; 97542; 97802; J7030; A4216

== ENCOUNTER 2024-02-01 10:54 | Outpatient (CLI) | payer MEDICARE, OTHER, SELFPAY ==
[2024-02-01] VITALS (7 sets, daily range): BP systolic 103–164; BP diastolic 58–84; PULSE 62–77; RESP 16; TEMP 36.6–36.9; O2SAT 96–99; BMI 18.3
[2024-02-01] MEDS: Furosemide 20 MG/2 ML VIAL IV (13:37)
== END 2024-02-01 10:55 | disposition home or self-care (01) ==
LOC: MEDOUTP 10:56
PROVIDERS: PCP Family Medicine; Referring Provider Family Medicine Geriatric Medicine; Visit Provider Family Medicine Geriatric Medicine
DX: D64.9 Anemia, unspecified (principal)
CPT/HCPCS: 36430; 86850; 86900; 86901; 86920; 86922; J7040; P9016; A4216; J1940

== ENCOUNTER 2024-02-02 10:22 | Day surgery (SDC) | payer MEDICARE, OTHER, SELFPAY ==
[2024-02-02] VITALS (7 sets, daily range): BP systolic 106–161; BP diastolic 59–66; PULSE 59–62; RESP 16; TEMP 36.4–36.6; O2SAT 98–100; BMI 18.3
--- NOTE | 2024-02-02 | ESO_PTH ---
PATIENT: RED PRICE LOC: EN U#:[id number] AGE/SX: 68/F ROOM: RE02/02/[address]: Dr. Bandar Melissa DO : 1955 BED: DIS: 02/02/2024 SPEC #: [id number] RECD: 02/02/24 13:37 STATUS: MALIA LYNDSEY #: [id number] [place]: 02/02/24 00:[address]: Bandar Melissa DEPT: SURGICAL PATHOLOGY RECD BY: Daniel Tesfaye ENTERED: 02/02/24 13:37 SP TYPE: MARIE TREVINO DR: Dr. Cody Billings MD Tissues: Esophagus, NOS Procedures: Special Stain Group II Surgery Specimen Level IV Alcian Blue/PAS (control) HEADER OPERATION: EGD with biopsy PRE-OP DIAGNOSIS: Anemia TISSUE SUBMITTED: Distal esophagus MICROSCOPIC DIAGNOSIS Distal esophagus, biopsy: Fragments of gastric mucosa with chronic inflammation. No evidence of goblet cell metaplasia. See comment. / 02/05/24 COMMENT Alcian blue/PAS stain with matched control supports the above diagnosis. MICROSCOPIC DESCRIPTION Slides are reviewed. GROSS DESCRIPTION Received in fixative is one container labeled with the patient's name and designated Distal esophagus biopsy. The specimen consists of two irregular fragments of light peters soft tissue that in aggregate measure 0.6 x 0.3 x 0.1 cm. The specimen is totally submitted in one cassette. / 02/02/24 TC:3 CPT:20452,31584
[2024-02-02] MEDS: Lactated Ringers 1,000 ML 15 ML IV (10:37)
--- NOTE | 2024-02-02 11:44 | PCM.HP.BLA ---
History and Physical Date of Admission: 02/02/24 Nausea vomiting HPI Narrative: RED PRICE, is a 68 F who presented after a syncopal episode.? She says that she lost about 30 pounds in the last 2 months due to inability to eat because of progressive nausea. ? By that time an ambulance had been called and she was transferred to the hospital for further evaluation.? A CT scan was done of the head and neck which did not show any acute findings.? Laboratory studies were relatively unremarkable.? 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 Patient also states she has a history of meningioma in her brain.? CT scan did not reveal a mass effect on her current exam.? She will be admitted for further evaluation of syncopal episode. She then underwent an MRI and MRA of the brain and neck. No acute abnormality was found. I got to know her for the first time in 2020 consultation for lower GI bleeding. She was doing typhlitis having ischemic colitis and was later identified as having C. difficile colitis. She was treated accordingly. We also diagnosed her with gastroparesis and she has been having diarrhea for the last several months. 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 She has had C. difficile colitis at least 3 times with the last cultures for her did not reveal any antigen although the PCR was positive. She has been having diarrhea for the last 4 weeks that seems like her C. difficile came back. From her multiple episodes of C. difficile she was placed on budesonide for the treatment of collagenous colitis that was identified on subsequent colonoscopy. She also Lomotil as needed for worsening diarrhea. At this time she is very nauseous and complaining of pain at the base of her head that she thinks initially started the nausea and could have led to a syncopal episode. 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 of cervical and lumbar spine PAD (peripheral artery disease) Type 2 diabetes mellitus with diabetic polyneuropathy Ulcer of amputation stump of foot Wound of left foot Home Medications albuterol sulfate 90 mcg/actuation aerosol inhaler (Ventolin HFA) 1 puff inhalation Q4H PRN PRN SHORTNESS OF BREATH #0 grams 03/25/21 [Rx Last Taken 2 Weeks Ago ~03/27/23] ondansetron 4 mg disintegrating tablet 4 mg PO Q6H PRN PRN NAUSEA #0 tabs 03/25/21 [Rx Last Taken 04/10/23] tramadol 50 mg tablet 50 mg PO Q6H PRN Pain 05/18/21 [History Last Taken Unknown] acetaminophen 325 mg tablet 975 mg PO TID PRN Pain 12/31/22 [History Last Taken Unknown] folic acid 1 mg tablet 1 mg PO DAILY supplement #30 tabs 02/15/23 [Rx Last Taken 04/09/23] Lactobacillus rhamnosus GG 10 billion cell capsule (Culturelle) 1 cap PO DAILY GUT HEALTH 04/10/23 [History Last Taken 04/09/23] cholecalciferol (vitamin D3) 125 mcg (5,000 unit) tablet 125 mcg PO DAILY SUPPLEMENT 04/10/23 [History Last Taken 04/09/23] diphenoxylate-atropine 2.5 mg-0.025 mg tablet 1 tab PO BID DIARRHEA 04/10/23 [History Last Taken 04/10/23] pantoprazole 40 mg tablet,delayed release 40 mg PO DAILY GERD 04/10/23 [History Last Taken 04/10/23] ondansetron 4 mg disintegrating tablet 4 mg PO Q8H nausea #20 tabs 08/10/23 [Rx Last Taken Unknown] arginine 7 gram-glutam 7 gram-CaHMB 1.5 [id number] oral pwd pkt (Alfredo (with collagen)) 1 packet PO BID supplement 01/21/24 [History Last Taken Unknown] loperamide 2 mg capsule 2 mg PO Q12H diarrhea 01/21/24 [History Last Taken Unknown] zenpap PO stomach 01/21/24 [History Last Taken Unknown] Allergy/AdvReac Type Severity Reaction Status Date / Time cefprozil Allergy Shortness Verified 05/19/23 15:12 of breath ceftriaxone Allergy Hives Verified 05/19/23 15:12 clindamycin Allergy Rash Verified 05/19/23 15:12 enalapril Allergy Other Verified 05/19/23 15:12 enoxaparin Allergy Rash Verified 05/19/23 15:12 heparin Allergy Rash Verified 05/19/23 15:12 levalbuterol Allergy Other Verified 05/19/23 15:12 morphine Allergy Shortness Verified 05/19/23 15:12 of breath Penicillins Allergy Anaphylaxis Verified 05/19/23 15:12 shellfish derived Allergy Anaphylaxis Verified 05/19/23 15:12 valsartan Allergy Other Verified 05/19/23 15:12 vancomycin Allergy Rash Verified 05/19/23 15:12 atorvastatin AdvReac Other Verified 05/19/23 15:12 rosuvastatin [From Crestor] AdvReac Other Verified 05/19/23 15:12 Family History Mother Cancer Lung CA w/ tobacco use history. Diabetes COPD (chronic obstructive pulmonary disease)Father Cancer Lung CA w/ tobacco use history. Diabetes COPD (chronic obstructive pulmonary disease) Heart disease Surgical History History of appendectomy History of eye surgery History of foot surgery History of lumpectomy History of tubal ligation Status post transmetatarsal amputation of left foot Tubal ligation status Social History household members: none Smoking Status: Never smoker alcohol intake: never substance use type: does not use ROS Review of Systems ROS Unobtainable: Denies due to encephalopathy, due to endotracheal tube, due to mental condition, due to mental status or other Constitutional Constitutional: Reports anorexia, change in weight and weakness Eyes Eyes: Denies blurry vision, change in eye color, change in vision, discharge from eye(s), double vision, erythema, eye pain, loss of vision or other ENT HEENT: Denies abnormal hearing, dysphagia, ear pain, epistaxis, headache(s), hearing loss, nasal congestion, nasal discharge, post nasal drip, sinus pressure, sore throat or other Cardiovascular Cardiovascular: Denies chest pain, claudication, dyspnea on exertion, edema, lightheadedness, orthopnea, palpitations, paroxysmal nocturnal dyspnea, rapid heart rate, syncope or other Respiratory/Chest Respiratory/Chest: Denies cough, dyspnea, excessive phlegm production, hemoptysis, productive cough, shortness of breath at rest, shortness of breath with exertion, wheezing or other Gastrointestinal Gastrointestinal: Reports diarrhea, loose stools, nausea and vomiting Genitourinary Genitourinary: Denies burning urination, difficulty urinating, dysuria, hematuria, nocturia, urinary frequency, urinary hesitancy, urinary incontinence, urinary urgency or other Musculoskeletal Musculoskeletal: Denies arthralgias, back pain, joint pain, joint stiffness, joint swelling, myalgias, neck pain or other Neurologic Neurologic: Denies abnormal gait, abnormal speech, confusion, disequilibrium, dizziness, focal weakness, headache(s), numbness, paresthesias, seizure-like activity, seizures, syncope, tingling, tremor(s) or other Psychiatric Psychiatric: Denies anxiety, depression, homicidal ideation, suicidal ideation or other Endocrine Endocrinology: Denies change in body appearance, cold intolerance, excessive sweating, heat intolerance, polydipsia, polyuria or other Hematologic/Lymphatic Hematologic/Lymphatic: Denies anemia, easy bleeding, easy bruising, lymphadenopathy or other Physical Exam Const alert, oriented x3 and no apparent distress Constitutional Narrative: frail, weak General Appearance: cooperative Orientation / Consciousness: awake HEENT normocephalic, head/scalp atraumatic, hearing grossly normal bilaterally, moist oral mucous membranes and oropharynx normal Mouth: oral and palatal mucosa normal Eyes PERRL and EOMs intact bilaterally Neck no lymphadenopathy and supple Lymph Lymphatic: no lymphadenopathy noted and no lymphedema noted Resp normal respiratory effort, normal air movement, no retractions, no use of accessory muscles and clear to auscultation bilaterally Cardio regular rate, regular rhythm, S1 normal heart sound, S2 normal heart sound and no murmurs GI normal to inspection, nondistended, normoactive bowel sounds, soft to palpation and non-tender Extremity normal capillary refill, no clubbing, cyanosis or edema and no calf tenderness Extremity Narrative: left ankle joint wrapped in bandage General Extremity: no tenderness to palpation of joints or extremities Skin General Skin Exam: no breakdown Neuro CN's II-XII intact bilaterally, no focal motor deficits and no sensory deficits noted Motor Exam: strength 5/5 throughout and general weakness Psych thought process normal, cooperative and affect normal Appearance: appropriate Lab / Micro Data 01/31/24 05:57 01/31/24 05:57 Labs: Laboratory Results - last 24 hr 01/31/24 05:57: WBC 16.2 H, RBC 2.60 L, Hgb 7.5 L, Hct 24.2 L, MCV 93.1, MCH 28.8, MCHC 31.0 L, RDW Std Deviation 45.8 H, RDW Coeff of Xin 13.6, Plt Count 359, MPV 9.9, Immature Gran % (Auto) 0.900, Neut % (Auto) 59.6, Lymph % (Auto) 30.6, Merrick % (Auto) 5.6, Eos % (Auto) 2.2, Baso % (Auto) 1.1 H, Absolute Neuts (auto) 9.7 H, Absolute Lymphs (auto) 4.96 H, Nucleated RBC % 0, Sodium 132 L, Potassium 4.9, Chloride 107, Carbon Dioxide 20.0 L, Anion Gap 5, BUN 16, Creatinine 2.80 H, Estim Creat Clear Calc 16.10, Est GFR (MDRD) Af Amer 22 L, Est GFR (MDRD) Non-Af 18 L, BUN/Creatinine Ratio 5.7 L, Glucose 87, Calcium 7.7 L Rhythm Strip Rhythm Strip: Sinus Rhythm Rate: 65 Ectopy: None Assessment & Plan Assessment/Plan (1) Urinary tract infection: PLAN: Plan 1. Chronic diarrhea as well as acute nausea and vomiting in the setting of a Klebsiella and E. coli UTI/ANNIKA ? White count climbed to 18 and may be due to a shorter duration of her previous antibiotic therefore we will restart antibiotics with Cipro at 500 twice daily ? No significant abdominal pain ? Will place her on vancomycin p.o. 125 mg twice daily as prophylaxis since she is a C. difficile carrier, and this will need to be continued for 5 days after completion of antibioticsl ? On admission creatinine was 1.43 with baseline around 0.7, will continue to monitor make adjustments as necessary. Creatinine is improving 2. COPD ? Not in exacerbation ? Continue with her home inhalers 3. GERD ? Stable ? Continue with PPI 4. Chronic normocytic normochromic anemia ? Iron studies demonstrate anemia of chronic disease ? Will continue to monitor 5. Possible acute blood loss anemia. She received transfusion of 1 unit packed red blood cells. She will undergo an upper endoscopy to evaluate upper GI tract. I have examined the patient and the H&P has been reviewed. There are no clinical changes since date of exam.
--- NOTE | 2024-02-02 12:29 | OP.EGD_ITS ---
Patient Name: Zulay Serra Procedure Date: 02/02/2024 11:44 AM Date of : 1955 Age: 68 Procedure: Upper GI endoscopy Indications: Iron deficiency anemia Providers: Bandar Melissa DO Medicines: Monitored Anesthesia Care Patient Profile: This is a 68 year old female. Refer to note in patient chart for documentation of history and physical. Patient has symptoms of acute abdominal distention and acute epigastric abdominal pain. Complications: No immediate complications. Procedure: Pre-Anesthesia Assessment: - Prior to the procedure, a History and Physical was performed, and patient medications and allergies were reviewed. The patient is competent. The risks and benefits of the procedure and the sedation options and risks were discussed with the patient. All questions were answered and informed consent was obtained. Patient identification and proposed procedure were verified by the physician in the pre-procedure area. Mental Status Examination: alert and oriented. Airway Examination: normal oropharyngeal airway and neck mobility. Respiratory Examination: clear to auscultation. CV Examination: normal. Prophylactic Antibiotics: The patient does not require prophylactic antibiotics. Prior Anticoagulants: The patient has taken no anticoagulant or antiplatelet agents. ASA Grade Assessment: II - A patient with mild systemic disease. After reviewing the risks and benefits, the patient was deemed in satisfactory condition to undergo the procedure. The anesthesia plan was to use monitored anesthesia care (MAC). Immediately prior to administration of medications, the patient was re-assessed for adequacy to receive sedatives. The heart rate, respiratory rate, oxygen saturations, blood pressure, adequacy of pulmonary ventilation, and response to care were monitored throughout the procedure. The physical status of the patient was re-assessed after the procedure. After obtaining informed consent, the endoscope was passed under direct vision. Throughout the procedure, the patient's blood pressure, pulse, and oxygen saturations were monitored continuously. The Endoscope was introduced through the mouth, and advanced to the second part of duodenum. The upper GI endoscopy was accomplished without difficulty. The patient tolerated the procedure well. Scope In: Scope Out: 12:02:34 PM Findings: LA Grade C (one or more mucosal breaks continuous between tops of 2 or more mucosal folds, less than 75% circumference) esophagitis with bleeding was found 36 to 39 cm from the incisors. Coagulation for hemostasis using heater probe was successful. Estimated blood loss was minimal. One linear esophageal ulcer with no stigmata of recent bleeding was found 39 to 40 cm from the incisors. The lesion was 3 mm in largest dimension. Biopsies were taken with a cold forceps for histology. Verification of patient identification for the specimen was done. Estimated blood loss was minimal. A medium-sized hiatal hernia was present. No other significant abnormalities were identified in a careful examination of the stomach. The second portion of the duodenum was normal. Impression: - LA Grade C erosive esophagitis with bleeding. Treated with a heater probe. - Esophageal ulcer with no stigmata of recent bleeding. Biopsied. - Medium-sized hiatal hernia. - Normal second portion of the duodenum. 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: - Return patient to [facility] for ongoing care. - Resume previous diet. - Continue present medications. - Await pathology results. Procedure Code(s): --- Professional --- 50979, 59, Esophagogastroduodenoscopy, flexible, transoral; with control of bleeding, any method 74237, 51, Esophagogastroduodenoscopy, flexible, transoral; with biopsy, single or multiple CPT copyright 2021 [employer]. All rights reserved. The codes documented in this report are preliminary and upon acid treater review may be revised to meet current compliance requirements. Bandar Melissa DO 02/02/2024 12:29:22 PM This report has been signed electronically. Number of Addenda: 0 Note Initiated On: 02/02/2024 11:44 AM
--- NOTE | 2024-02-02 12:30 | OP.CCLET_ITS ---
02/02/2024 Cody Billings Re : Upper GI endoscopy procedure for Zulay Serra Dear Awa This procedure was performed on Friday, February 02, 2024. My impressions and recommendations are as follows: Impressions : - LA Grade C erosive esophagitis with bleeding. Treated with a heater probe. - Esophageal ulcer with no stigmata of recent bleeding. Biopsied. - Medium-sized hiatal hernia. - Normal second portion of the duodenum. 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s : - Return patient to hospital [facility] for ongoing care. - Resume previous diet. - Continue present medications. - Await pathology results. My findings are described in the full procedure note, which is enclosed. If I can be of further assistance, please feel free to contact me at . Sincerely, Bandar Melissa, 02/02/2024 12:29:22 PM This report has been signed electronically.
== END 2024-02-02 12:49 | disposition home or self-care (01) ==
LOC: EN 10:22 → AC 10:23
PROVIDERS: PCP Family Medicine; Referring Provider Family Medicine; Visit Provider Internal Medicine Gastroenterology
PROC: 0DJ08ZZ Inspection of Upper Intestinal Tract, Via Natural or Artificial Opening Endoscopic (ICD-10-PCS; CPT 43235; principal; 2024-02-02 11:10)
DX: K22.10 Ulcer of esophagus without bleeding (principal); E11.51 Type 2 diabetes mellitus with diabetic peripheral angiopathy without gangrene; E11.43 Type 2 diabetes mellitus with diabetic autonomic (poly)neuropathy; E11.42 Type 2 diabetes mellitus with diabetic polyneuropathy; E11.22 Type 2 diabetes mellitus with diabetic chronic kidney disease; N18.30 Chronic kidney disease, stage 3 unspecified; D50.9 Iron deficiency anemia, unspecified; K44.9 Diaphragmatic hernia without obstruction or gangrene; J45.909 Unspecified asthma, uncomplicated; K21.00 Gastro-esophageal reflux disease with esophagitis, without bleeding; Z79.51 Long term (current) use of inhaled steroids; Z79.899 Other long term (current) drug therapy; Z86.718 Personal history of other venous thrombosis and embolism; Z86.73 Personal history of transient ischemic attack (TIA), and cerebral infarction without residual deficits
CPT/HCPCS: 43255; 43239; 74176; 88305; 88313; J7120

== ENCOUNTER → 2024-02-02 | Outpatient (CLI) | payer MEDICARE, OTHER, SELFPAY ==
--- NOTE | 2024-02-02 10:56 | CT_ITS ---
EXAM: CT ABDOMEN AND PELVIS WITHOUT INTRAVENOUS CONTRAST CLINICAL INDICATION: LEFT HYDRONEPHROSIS TECHNIQUE: Helically acquired images were obtained of the abdomen and pelvis without intravenous contrast. This CT exam was performed using one or more of the following dose reduction techniques: automated exposure control, adjustment of the mA and/or kV according to patient size, and/or use of iterative reconstruction technique. RADIATION DOSE: CTDIvol = 6.05 mGy, DLP = 323.61 mGy-cm COMPARISON: No relevant prior studies available. FINDINGS: LIMITATIONS: Limited by the absence of IV and oral contrast. LOWER THORAX: Unremarkable. Lung bases are clear. No cardiomegaly. No significant pericardial effusion. ABDOMEN: LIVER: Unremarkable. Homogeneous. GALLBLADDER AND BILE DUCTS: Cholelithiasis. No gallbladder distention or wall edema. No intra- or extrahepatic biliary ductal dilation. PANCREAS: Unremarkable. No focal cystic mass. SPLEEN: Unremarkable. Normal size without focal cystic or solid mass. ADRENALS: Unremarkable. No nodules. KIDNEYS AND URETERS: Mild left hydronephrosis and hydroureter. Normal renal size and position. No renal stones are seen. STOMACH AND BOWEL: Evaluation of the GI tract is limited by absence of oral contrast. Cannot exclude stomach wall thickening. No dilated loops of bowel or evidence for obstruction. Cannot exclude segmental thickening of the juan of the small or large bowel. Cannot exclude enteritis or colitis. Strong suspicion of thickening of the wall of the sigmoid colon with some spiculations extending into the adjacent fat. Findings are suspicious for possible neoplastic process. Colonoscopy is recommended. PELVIS: APPENDIX: No evidence of acute appendicitis. BLADDER: Unremarkable. REPRODUCTIVE: Atrophy and calcifications of the uterus. ABDOMEN and PELVIS: INTRAPERITONEAL SPACE: Unremarkable. No ascites or other fluid collection. No free air. BONES/JOINTS: Severe multilevel degenerative disc disease of the lumbar spine. Mild levoconvex scoliosis. No suspicious lytic or blastic abnormality. SOFT TISSUES: Unremarkable. No discrete abdominal or pelvic wall hernia. VASCULATURE: Unremarkable. Abdominal aorta is non-dilated. Prominent calcified vascular disease. LYMPH NODES: Unremarkable. No enlarged lymph nodes. CT/Abdomen/Pelvis without Cont IMPRESSION: 1. Limited as above. 2. Strong suspicion of thickening of the wall of the sigmoid colon with some spiculations extending into the adjacent fat. Findings are suspicious for possible neoplastic process. Colonoscopy is recommended. 3. Mild left hydronephrosis and hydroureter likely related to involvement by the abnormality discussed above in the adjacent sigmoid colon. 4. Cholelithiasis. Electronically Signed: Mina Rojo MD at 17:26 EDT ,
== END | disposition home or self-care (01) ==
LOC: CT 10:55
PROVIDERS: PCP Family Medicine; Referring Provider Urology; Visit Provider Urology
DX: N13.30 Unspecified hydronephrosis (principal)
CPT/HCPCS: 74176

== ENCOUNTER 2024-02-08 14:31 | Day surgery (SDC) | payer MEDICARE, OTHER, SELFPAY ==
[2024-02-08] VITALS (8 sets, daily range): BP systolic 77–178; BP diastolic 45–82; PULSE 62–72; RESP 12–16; TEMP 36–36.6; O2SAT 96–99; BMI 18.3
[2024-02-08] MEDS: Lactated Ringers 1,000 ML 15 ML IV (14:57)
--- NOTE | 2024-02-08 15:00 | COLBX_PTH ---
PATIENT: RED PRICE LOC: EN U#:[id number] AGE/SX: 69/F ROOM: RE02/08/[address]: Dr. Bandar Melissa DO : 1955 BED: DIS: 02/08/2024 SPEC #: [id number] RECD: 02/09/24 09:16 STATUS: MALIA LYNDSEY #: [id number] [place]: 02/08/24 15:[address]: Banadr Melissa DEPT: SURGICAL PATHOLOGY RECD BY: Ludmila Hernandez ENTERED: 02/09/24 10:21 SP TYPE: COLON BX URIEL DR: Dr. Cody Billings MD Tissues: A - COLON BIOPSY B - Cecum, NOS Procedures: Surgery Specimen Level IV HEADER OPERATION: Colonoscopy with biopsies PRE-OP DIAGNOSIS: Acute blood loss anemia TISSUE SUBMITTED: A- Hepatic flexure polyp biopsy, B- Cecal colitis biopsy MICROSCOPIC DIAGNOSIS A. Hepatic flexure polyp, biopsy: Fragments of tubular adenoma. B. Cecal colitis, biopsy: Fragments of colonic mucosa, no pathologic diagnosis. / 02/12/24 MICROSCOPIC DESCRIPTION Slides are reviewed. GROSS DESCRIPTION A. Received in fixative is one container labeled with the patient's name and designated Hepatic flexure polyp biopsy. The specimen consists of multiple irregular fragments of light peters soft tissue that in aggregate measure 1.0 x 0.3 x 0.1 cm. The specimen is totally submitted in one cassette. B. Received in fixative is one container labeled with the patient's name and designated Cecal colitis biopsy. The specimen consists of multiple irregular fragments of light peters soft tissue that in aggregate measure 0.8 x 0.3 x 0.1 cm. The specimen is totally submitted in one cassette. [facility] 02/09/24 TC:1 CPT: 44687m7
--- NOTE | 2024-02-08 15:16 | PCM.HP.BLA ---
History and Physical Date of Admission: 02/08/24 [facility] Medical Records Department [address] [place] [address] History & Physical Exam 02/02/24 1144 MR#: [id number] Acct: [id number] Name: RED PRICE Rep #: [id number] : [id number] 68 From: Bandar Friend DO PCP: Dr. Cody Billings MD Status: [facility] Location: [place] [address] History and Physical Date of Admission: 02/02/24 Nausea vomiting HPI Narrative: RED PRICE, is a 68 F who presented after a syncopal episode.? She says that she lost about 30 pounds in the last 2 months due to inability to eat because of progressive nausea. ? By that time an ambulance had been called and she was transferred to the hospital for further evaluation.? A CT scan was done of the head and neck which did not show any acute findings.? Laboratory studies were relatively unremarkable.? 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 Patient also states she has a history of meningioma in her brain.? CT scan did not reveal a mass effect on her current exam.? She will be admitted for further evaluation of syncopal episode. She then underwent an MRI and MRA of the brain and neck. No acute abnormality was found. I got to know her for the first time in 2020 consultation for lower GI bleeding. She was doing typhlitis having ischemic colitis and was later identified as having C. difficile colitis. She was treated accordingly. We also diagnosed her with gastroparesis and she has been having diarrhea for the last several months. 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 She has had C. difficile colitis at least 3 times with the last cultures for her did not reveal any antigen although the PCR was positive. She has been having diarrhea for the last 4 weeks that seems like her C. difficile came back. From her multiple episodes of C. difficile she was placed on budesonide for the treatment of collagenous colitis that was identified on subsequent colonoscopy. She also Lomotil as needed for worsening diarrhea. At this time she is very nauseous and complaining of pain at the base of her head that she thinks initially started the nausea and could have led to a syncopal episode. 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 PAD (peripheral artery disease) Type 2 diabetes mellitus with diabetic polyneuropathy Ulcer of amputation stump of foot Wound of left foot Home Medications albuterol sulfate 90 mcg/actuation aerosol inhaler (Ventolin HFA) 1 puff inhalation Q4H PRN PRN SHORTNESS OF BREATH #0 grams 03/25/21 [Rx Last Taken 2 Weeks Ago ~03/27/23] ondansetron 4 mg disintegrating tablet 4 mg PO Q6H PRN PRN NAUSEA #0 tabs 03/25/21 [Rx Last Taken 04/10/23] tramadol 50 mg tablet 50 mg PO Q6H PRN Pain 05/18/21 [History Last Taken Unknown] acetaminophen 325 mg tablet 975 mg PO TID PRN Pain 12/31/22 [History Last Taken Unknown] folic acid 1 mg tablet 1 mg PO DAILY supplement #30 tabs 02/15/23 [Rx Last Taken 04/09/23] Lactobacillus rhamnosus GG 10 billion cell capsule (Culturelle) 1 cap PO DAILY GUT HEALTH 04/10/23 [History Last Taken 04/09/23] cholecalciferol (vitamin D3) 125 mcg (5,000 unit) tablet 125 mcg PO DAILY SUPPLEMENT 04/10/23 [History Last Taken 04/09/23] diphenoxylate-atropine 2.5 mg-0.025 mg tablet 1 tab PO BID DIARRHEA 04/10/23 [History Last Taken 04/10/23] pantoprazole 40 mg tablet,delayed release 40 mg PO DAILY GERD 04/10/23 [History Last Taken 04/10/23] ondansetron 4 mg disintegrating tablet 4 mg PO Q8H nausea #20 tabs 08/10/23 [Rx Last Taken Unknown] arginine 7 gram-glutam 7 gram-CaHMB 1.5 [id number] oral pwd pkt (Alfredo (with collagen)) 1 packet PO BID supplement 01/21/24 [History Last Taken Unknown] loperamide 2 mg capsule 2 mg PO Q12H diarrhea 01/21/24 [History Last Taken Unknown] zenpap PO stomach 01/21/24 [History Last Taken Unknown] Allergy/AdvReac Type Severity Reaction Status Date / Time cefprozil Allergy Shortness Verified 05/19/23 15:12 of breath ceftriaxone Allergy Hives Verified 05/19/23 15:12 clindamycin Allergy Rash Verified 05/19/23 15:12 enalapril Allergy Other Verified 05/19/23 15:12 enoxaparin Allergy Rash Verified 05/19/23 15:12 heparin Allergy Rash Verified 05/19/23 15:12 levalbuterol Allergy Other Verified 05/19/23 15:12 morphine Allergy Shortness Verified 05/19/23 15:12 of breath Penicillins Allergy Anaphylaxis Verified 05/19/23 15:12 shellfish derived Allergy Anaphylaxis Verified 05/19/23 15:12 valsartan Allergy Other Verified 05/19/23 15:12 vancomycin Allergy Rash Verified 05/19/23 15:12 atorvastatin AdvReac Other Verified 05/19/23 15:12 rosuvastatin [From Crestor] AdvReac Other Verified 05/19/23 15:12 Family History MotherCancer Lung CA w/ tobacco use history. Diabetes COPD (chronic obstructive pulmonary disease)Father Cancer Lung CA w/ tobacco use history. Diabetes COPD (chronic obstructive pulmonary disease) Heart disease Surgical History History of appendectomy History of eye surgery History of foot surgery History of lumpectomy History of tubal ligation Status post transmetatarsal amputation of left foot Tubal ligation status Social History household members: none Smoking Status: Never smoker alcohol intake: never substance use type: does not use ROS Review of Systems ROS Unobtainable: Denies due to encephalopathy, due to endotracheal tube, due to mental condition, due to mental status or other Constitutional Constitutional: Reports anorexia, change in weight and weakness Eyes Eyes: Denies blurry vision, change in eye color, change in vision, discharge from eye(s), double vision, erythema, eye pain, loss of vision or other ENT HEENT: Denies abnormal hearing, dysphagia, ear pain, epistaxis, headache(s), hearing loss, nasal congestion, nasal discharge, post nasal drip, sinus pressure, sore throat or other Cardiovascular Cardiovascular: Denies chest pain, claudication, dyspnea on exertion, edema, lightheadedness, orthopnea, palpitations, paroxysmal nocturnal dyspnea, rapid heart rate, syncope or other Respiratory/Chest Respiratory/Chest: Denies cough, dyspnea, excessive phlegm production, hemoptysis, productive cough, shortness of breath at rest, shortness of breath with exertion, wheezing or other Gastrointestinal Gastrointestinal: Reports diarrhea, loose stools, nausea and vomiting Genitourinary Genitourinary: Denies burning urination, difficulty urinating, dysuria, hematuria, nocturia, urinary frequency, urinary hesitancy, urinary incontinence, urinary urgency or other Musculoskeletal Musculoskeletal: Denies arthralgias, back pain, joint pain, joint stiffness, joint swelling, myalgias, neck pain or other Neurologic Neurologic: Denies abnormal gait, abnormal speech, confusion, disequilibrium, dizziness, focal weakness, headache(s), numbness, paresthesias, seizure-like activity, seizures, syncope, tingling, tremor(s) or other Psychiatric Psychiatric: Denies anxiety, depression, homicidal ideation, suicidal ideation or other Endocrine Endocrinology: Denies change in body appearance, cold intolerance, excessive sweating, heat intolerance, polydipsia, polyuria or other Hematologic/Lymphatic Hematologic/Lymphatic: Denies anemia, easy bleeding, easy bruising, lymphadenopathy or other Physical Exam Const alert, oriented x3 and no apparent distress Constitutional Narrative: frail, weak General Appearance: cooperative Orientation / Consciousness: awake HEENT normocephalic, head/scalp atraumatic, hearing grossly normal bilaterally, moist oral mucous membranes and oropharynx normal Mouth: oral and palatal mucosa normal Eyes PERRL and EOMs intact bilaterally Neck no lymphadenopathy and supple Lymph Lymphatic: no lymphadenopathy noted and no lymphedema noted Resp normal respiratory effort, normal air movement, no retractions, no use of accessory muscles and clear to auscultation bilaterally Cardio regular rate, regular rhythm, S1 normal heart sound, S2 normal heart sound and no murmurs GI normal to inspection, nondistended, normoactive bowel sounds, soft to palpation and non-tender Extremity normal capillary refill, no clubbing, cyanosis or edema and no calf tenderness Extremity Narrative: left ankle joint wrapped in bandage General Extremity: no tenderness to palpation of joints or extremities Skin General Skin Exam: no breakdown Neuro CN's II-XII intact bilaterally, no focal motor deficits and no sensory deficits noted Motor Exam: strength 5/5 throughout and general weakness Psych thought process normal, cooperative and affect normal Appearance: appropriate Lab / Micro Data 01/31/24 05:57 01/31/24 05:57 Labs: Laboratory Results - last 24 hr 01/31/24 05:57: WBC 16.2 H, RBC 2.60 L, Hgb 7.5 L, Hct 24.2 L, MCV 93.1, MCH 28.8, MCHC 31.0 L, RDW Std Deviation 45.8 H, RDW Coeff of Xin 13.6, Plt Count 359, MPV 9.9, Immature Gran % (Auto) 0.900, Neut % (Auto) 59.6, Lymph % (Auto) 30.6, [place] % (Auto) 5.6, Eos % (Auto) 2.2, Baso % (Auto) 1.1 H, Absolute Neuts (auto) 9.7 H, Absolute Lymphs (auto) 4.96 H, Nucleated RBC % 0, Sodium 132 L, Potassium 4.9, Chloride 107, Carbon Dioxide 20.0 L, Anion Gap 5, BUN 16, Creatinine 2.80 H, Estim Creat Clear Calc 16.10, Est GFR (MDRD) Af Amer 22 L, Est GFR (MDRD) Non-Af 18 L, BUN/Creatinine Ratio 5.7 L, Glucose 87, Calcium 7.7 L Rhythm Strip Rhythm Strip: Sinus Rhythm Rate: 65 Ectopy: None Assessment & Plan Assessment/Plan (1) Urinary tract infection: PLAN: Plan 1. Chronic diarrhea as well as acute nausea and vomiting in the setting of a Klebsiella and E. coli UTI/ANNIKA ? White count climbed to 18 and may be due to a shorter duration of her previous antibiotic therefore we will restart antibiotics with Cipro at 500 twice daily ? No significant abdominal pain ? Will place her on vancomycin p.o. 125 mg twice daily as prophylaxis since she is a C. difficile carrier, and this will need to be continued for 5 days after completion of antibioticsl ? On admission creatinine was 1.43 with baseline around 0.7, will continue to monitor make adjustments as necessary. Creatinine is improving 2. COPD ? Not in exacerbation ? Continue with her home inhalers 3. GERD ? Stable ? Continue with PPI 4. Chronic normocytic normochromic anemia ? Iron studies demonstrate anemia of chronic disease ? Will continue to monitor 5. Possible acute blood loss anemia. She received transfusion of 1 unit packed red blood cells. She will undergo a colonoscopy to evaluate her lower GI tract. She was also discovered to have a CT abnormality of a possible mass in her colon which will be evaluated during colonoscopy. I have examined the patient and the H&P has been reviewed. There are no clinical changes since date of exam.
--- NOTE | 2024-02-08 16:42 | OP.CCLET_ITS ---
02/08/2024 Cody Billings Re : Colonoscopy procedure for Zulay Serra Dear Awa This procedure was performed on January. My impressions and recommendations are as follows: Impressions : - One 4 mm polyp at the hepatic flexure, removed with a cold snare. Resected and retrieved. - Diverticulosis in the recto-sigmoid colon, in the sigmoid colon and in the descending colon. - Localized moderate inflammation was found in the ascending colon secondary to colitis. Biopsied. 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s : - Return patient to hospital [facility] for ongoing care. - Resume regular diet. - Continue present medications. - Await pathology results. - Repeat colonoscopy in 3 years for surveillance. My findings are described in the full procedure note, which is enclosed. If I can be of further assistance, please feel free to contact me at . Sincerely, Bandar Melissa, 02/08/2024 4:41:22 PM This report has been signed electronically.
--- NOTE | 2024-02-08 16:42 | OP.COLON_ITS ---
Patient Name: Zulay Serra Procedure Date: 02/08/2024 3:50 PM Date of : 1955 Age: 69 Procedure: Colonoscopy Indications: Abnormal CT of the GI tract Providers: Bandar Melissa DO Medicines: Monitored Anesthesia Care Patient Profile: This is a 69 year old female. Refer to note in patient chart for documentation of history and physical. Last Colonoscopy: more than 3 years ago. Complications: No immediate complications. Procedure: Pre-Anesthesia Assessment: - Prior to the procedure, a History and Physical was performed, and patient medications and allergies were reviewed. The patient is competent. The risks and benefits of the procedure and the sedation options and risks were discussed with the patient. All questions were answered and informed consent was obtained. Patient identification and proposed procedure were verified by the physician in the pre-procedure area. Mental Status Examination: alert and oriented. Airway Examination: normal oropharyngeal airway and neck mobility. Prophylactic Antibiotics: The patient does not require prophylactic antibiotics. Prior Anticoagulants: The patient has taken no anticoagulant or antiplatelet agents. After reviewing the risks and benefits, the patient was deemed in satisfactory condition to undergo the procedure. The anesthesia plan was to use monitored anesthesia care (MAC). Immediately prior to administration of medications, the patient was re-assessed for adequacy to receive sedatives. The heart rate, respiratory rate, oxygen saturations, blood pressure, adequacy of pulmonary ventilation, and response to care were monitored throughout the procedure. The physical status of the patient was re-assessed after the procedure. After I obtained informed consent, the scope was passed under direct vision. Throughout the procedure, the patient's blood pressure, pulse, and oxygen saturations were monitored continuously. The pediatric colonoscope was introduced through the anus and advanced to the cecum, identified by appendiceal orifice and ileocecal valve. The colonoscopy was performed without difficulty. The patient tolerated the procedure well. The quality of the bowel preparation was adequate. The ileocecal valve, appendiceal orifice, and rectum were photographed. Scope In: 4:09:55 PM Scope Withdrawal Time 0 hours 10 minutes 47 seconds Scope Out: 4:27:27 PM Total Procedure Duration Time 0 hours 17 minutes 32 seconds Findings: The perianal and digital rectal examinations were normal. A 4 mm polyp was found in the hepatic flexure. The polyp was sessile. The polyp was removed with a cold snare. Resection and retrieval were complete. Verification of patient identification for the specimen was done. Estimated blood loss was minimal. Multiple medium-mouthed diverticula were found in the recto-sigmoid colon, sigmoid colon and descending colon. Localized moderate inflammation characterized by erosions, erythema and friability was found in the ascending colon. Biopsies were taken with a cold forceps for histology. Verification of patient identification for the specimen was done. Estimated blood loss was minimal. Impression: - One 4 mm polyp at the hepatic flexure, removed with a cold snare. Resected and retrieved. - Diverticulosis in the recto-sigmoid colon, in the sigmoid colon and in the descending colon. - Localized moderate inflammation was found in the ascending colon secondary to colitis. Biopsied. 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: - Return patient to hospital [facility] for ongoing care. - Resume regular diet. - Continue present medications. - Await pathology results. - Repeat colonoscopy in 3 years for surveillance. Procedure Code(s): --- Professional --- 32775, Colonoscopy, flexible; with removal of tumor(s), polyp(s), or other lesion(s) by snare technique 40042, 59, Colonoscopy, flexible; with biopsy, single or multiple CPT copyright 2021 [employer]. All rights reserved. The codes documented in this report are preliminary and upon manager fashion review may be revised to meet current compliance requirements. Bandar Melissa DO 02/08/2024 4:41:22 PM This report has been signed electronically. Number of Addenda: 0 Note Initiated On: 02/08/2024 3:50 PM
== END 2024-02-08 17:23 | disposition home or self-care (01) ==
LOC: EN 14:34 → AC 14:35
PROVIDERS: PCP Family Medicine; Referring Provider Family Medicine; Visit Provider Internal Medicine Gastroenterology
PROC: 0DJD8ZZ Inspection of Lower Intestinal Tract, Via Natural or Artificial Opening Endoscopic (ICD-10-PCS; CPT 45378; principal; 2024-02-08 14:55)
DX: D12.3 Benign neoplasm of transverse colon (principal); E11.621 Type 2 diabetes mellitus with foot ulcer; L97.512 Non-pressure chronic ulcer of other part of right foot with fat layer exposed; J44.9 Chronic obstructive pulmonary disease, unspecified; E11.51 Type 2 diabetes mellitus with diabetic peripheral angiopathy without gangrene; E11.43 Type 2 diabetes mellitus with diabetic autonomic (poly)neuropathy; E11.42 Type 2 diabetes mellitus with diabetic polyneuropathy; N39.0 Urinary tract infection, site not specified; K57.30 Diverticulosis of large intestine without perforation or abscess without bleeding; K63.89 Other specified diseases of intestine; K52.9 Noninfective gastroenteritis and colitis, unspecified; I34.1 Nonrheumatic mitral (valve) prolapse; I25.2 Old myocardial infarction; Z86.718 Personal history of other venous thrombosis and embolism; Z79.899 Other long term (current) drug therapy; Z79.51 Long term (current) use of inhaled steroids
CPT/HCPCS: 45385; 45380; 70450; 70496; 70498; 71045; 72148; 80048; 82962; 83735; 84484; 85025; 85610; 85730; 88305; 93005; J7120; Q9967; A4216

== ENCOUNTER 2024-02-08 22:09 | Emergency (ER) | payer MEDICARE, OTHER, SELFPAY ==
[2024-02-08 22:11] VITALS: BP 129/69; PULSE 80; RESP 18; TEMP 36.4; O2SAT 99
[2024-02-08 22:39] VITALS: BP 129/69; PULSE 80; RESP 18; O2SAT 99
--- NOTE | 2024-02-08 22:39 | CT_ITS ---
We are attempting to reach an attending provider to discuss findings. An addendum with communication details will be sent when the communication is complete. EXAM: CT HEAD WITHOUT INTRAVENOUS CONTRAST CLINICAL INDICATION: Neuro deficit, acute, stroke suspected TECHNIQUE: Multiple axial images were obtained of the head without intravenous contrast. This CT exam was performed using one or more of the following dose reduction techniques: automated exposure control, adjustment of the mA and/or kV according to patient size, and/or use of iterative reconstruction technique. RADIATION DOSE: CTDIvol = 44.99 mGy, DLP = 779.24 mGy-cmContrast: COMPARISON: No relevant prior studies available. FINDINGS: BRAIN AND EXTRA-AXIAL SPACES: Mild cerebral volume loss. Minimal deep periventricular low-attenuation chronic white matter changes. Minimal hypodensity in the left anterior subcortical frontal white matter appears chronic. No intra- or extra-axial hemorrhage. No evidence of acute infarct. No intracranial mass or mass effect. There is preservation of the torres/white matter interface. Posterior fossa structures are unremarkable. No hydrocephalus. Basal cisterns are patent. BONES/JOINTS: There is a densely ossified mass involving the midline floor of the anterior cranial fossa posterior to the cribriform plate, involving the roots of the posterior ethmoid-anterior sphenoid sinuses, with intact inferior bone expansion of bone and ossific mass of roughly 2.4 cm x 2.0 cm x 1.8 cm, projecting between the inferior medial frontal lobes without visible invasion or edema. VASCULATURE: Moderate bilateral distal vertebral artery calcifications and bilateral ICA calcifications. SINUSES: Almost completely included paranasal sinuses are unremarkable, with the exception of trace fluid in the left maxillary sinus. MASTOID AIR CELLS: Unremarkable. Clear. ORBITS: Visualized globes, extraocular muscles, optic nerves and retrobulbar fat appear unremarkable. OTHER FINDINGS: ASPECTS: 08/08. CT/STROKE Brain/Head without Cont IMPRESSION: 1. No evidence of acute CVA. Mild chronic changes. 2. 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 No associated parenchymal edema or midline shift. Electronically Signed: Marcy Grande MD at 23:11 EDT ,
--- NOTE | 2024-02-08 22:39 | RAD_ITS ---
EXAM: XR CHEST, 1 VIEW CLINICAL INDICATION: Neuro deficit, acute, stroke suspected TECHNIQUE: Frontal view of the chest. COMPARISON: January 21, 2024 FINDINGS: LUNGS AND PLEURAL SPACES: Unremarkable. No consolidation or edema. No pneumothorax. No effusion. HEART: Unremarkable. Cardiac silhouette not enlarged. MEDIASTINUM: Central airways and mediastinal contour are unremarkable. BONES/JOINTS: Unremarkable. No acute fracture. SOFT TISSUES: Unremarkable. RAD/Chest 1 View IMPRESSION: No radiographic evidence of acute cardiopulmonary disease. Electronically Signed: Marcy Grande MD at 0:45 EDT ,
--- NOTE | 2024-02-08 22:39 | CT_ITS ---
EXAM: CT ANGIOGRAPHY HEAD AND NECK WITH INTRAVENOUS CONTRAST CLINICAL INDICATION: Neuro deficit, acute, stroke suspected TECHNIQUE: [place]/head and neck CT angiography protocol performed with intravenous contrast. This CT exam was performed using one or more of the following dose reduction techniques: automated exposure control, adjustment of the mA and/or kV according to patient size, and/or use of iterative reconstruction technique. MIP reconstructed images were created and reviewed. CONTRAST: IV 100mL [id number] RADIATION DOSE: CTDIvol = 19.54 mGy, DLP = 535.25 mGy-cm. COMPARISON: Prior reports of studies were provided at the time of the CTA. 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 Reported mass mentioned on prior MRI December 29, [address] March 24, 2010. The images from the multiple prior studies were not provided. FINDINGS: HEAD: RIGHT ANTERIOR CEREBRAL ARTERY: Only tiny right A1 branch is seen on the source images. Most of the right A2 flow is apparently the the communicating artery. No occlusion or significant stenosis. Anterior communicating artery is present. No aneurysm. RIGHT MIDDLE CEREBRAL ARTERY: Unremarkable. No occlusion or significant stenosis. No aneurysm. RIGHT POSTERIOR CEREBRAL ARTERY: Only a tiny right P1 segments is present, there is origin of the right [employer]. No occlusion or significant stenosis. No aneurysm. RIGHT INTRACRANIAL INTERNAL CAROTID ARTERY: Unremarkable. No significant stenosis. No dissection or occlusion. RIGHT INTRACRANIAL VERTEBRAL ARTERY: Mildly larger and dominant. There is slight peripheral calcification of the level of the foramen magnum. No significant stenosis. No dissection or occlusion. LEFT ANTERIOR CEREBRAL ARTERY: Unremarkable. No occlusion or significant stenosis. No aneurysm. LEFT MIDDLE CEREBRAL ARTERY: Unremarkable. No occlusion or significant stenosis. No aneurysm. LEFT POSTERIOR CEREBRAL ARTERY: Unremarkable. No occlusion or significant stenosis. No aneurysm. LEFT INTRACRANIAL INTERNAL CAROTID ARTERY: Unremarkable. No significant stenosis. No dissection or occlusion. LEFT INTRACRANIAL VERTEBRAL ARTERY: Unremarkable with the exception of slight punctate peripheral calcification at the level of the foramen magnum.. No significant stenosis. No dissection or occlusion. BASILAR ARTERY: Unremarkable. No occlusion or significant stenosis. No aneurysm. OTHER VASCULATURE: No vascular malformation. Patent deep veins and dural venous sinuses. NECK: RIGHT COMMON CAROTID ARTERY: Unremarkable. No significant stenosis. No dissection or occlusion. RIGHT EXTRACRANIAL INTERNAL CAROTID ARTERY: There is mild mixed density calcified and noncalcified plaque minimally narrowing the origin of the right ICA, maximum narrowing roughly 20%. No visible ulcerated plaque. No significant stenosis. No dissection or occlusion. RIGHT EXTERNAL CAROTID ARTERY: Unremarkable. No occlusion. RIGHT EXTRACRANIAL VERTEBRAL ARTERY: Unremarkable. No significant stenosis. No dissection or occlusion. LEFT COMMON CAROTID ARTERY: Unremarkable. No significant stenosis. No dissection or occlusion. LEFT EXTRACRANIAL INTERNAL CAROTID ARTERY: Unremarkable. No significant stenosis. No dissection or occlusion. LEFT EXTERNAL CAROTID ARTERY: Unremarkable. No occlusion. LEFT EXTRACRANIAL VERTEBRAL ARTERY: Unremarkable. No significant stenosis. No dissection or occlusion. BRACHIOCEPHALIC AND SUBCLAVIAN ARTERIES: Unremarkable as visualized. No occlusion or significant stenosis. LUNG APICES: Unremarkable as visualized. HEAD and NECK: BONES/JOINTS: Marked disc space narrowing at C5-6 C6-7 with prominent posterior osteophytes at C5-6 minimally narrow the posterior thecal sac. AP diameter of the midline canal is mildly narrowed due to central broad-based protruding disc at C4-5, roughly 8.3 mm in the midline, and mild osteophyte-disc complex at C5-6, 8.3 mm in the midline. Moderate right C5-6 neural foraminal stenosis. No discrete lytic or blastic abnormalities. SOFT TISSUES: Unremarkable. CAROTID STENOSIS REFERENCE USING NASCET CRITERIA: % ICA stenosis = (1 - narrowest ICA diameter/diameter of distal cervical ICA) x 100. Mild - <50% stenosis. Moderate - 50-69% stenosis. Severe - 70-94% stenosis. Near occlusion - 95-99% stenosis. Occluded - 100% stenosis. CT/STROKE CTA Head AND Neck W/Con IMPRESSION: Negative CTA carotid and CTA brain. No high-grade stenosis. Mild right cervical carotid plaque. Normal variations: origin of the right [employer]. Asymmetric A1 segments. Planum sphenoidale benign meningioma, reported on multiple prior studies. Moderate degenerative spine changes. Small hyperdense extra-axial mass at the right foramen magnum, roughly 1.2 cm x 0.6 cm x 0.8 cm. Considerations include nerve sheath tumor or atypical meningioma or vascular-venous plexus. It is inferior to the right posterior inferior cerebellar artery and superior to the distal right vertebral artery but does not appear to be of arterial origin. Similar density to venous plexus at the upper spine but ovoid and masslike. Comparison to prior CTA or enhanced CT or MRI would be useful. N.B. : The above Results were Read Back by Marcy Grande MD to Rob Hwang DO, and understanding confirmed on 02/08/2024 23:40:49 (ET). Electronically Signed: Marcy Grande MD at 23:42 EDT ,
--- NOTE | 2024-02-08 22:39 | EKG12_ITS ---
Test Reason : DYSRHYTHMIA Blood Pressure : / mmHG Vent. Rate : 072 BPM Atrial Rate : 072 BPM P-R Int : 184 ms QRS Dur : 090 ms QT Int : 390 ms P-R-T Axes : 077 -33 084 degrees QTc Int : 427 ms Normal sinus rhythm Left axis deviation Abnormal ECG Confirmed by Celio Wu ([id number]), film editor supervisor WHIT HUERTAS ([id number]) on 02/09/2024 11:07:03 AM Referred By: Confirmed By:Celio Wu
[2024-02-08 23:04] LABS: Bedside Glucose 138 mg/dL (74-106)
[2024-02-08 23:09] VITALS: BP 132/62; PULSE 71; RESP 18; O2SAT 98
[2024-02-08 23:10] VITALS: BMI 21.5
[2024-02-08 23:13] LABS: Absolute Lymphocyte Count 3.06 X10^3/uL (0.83-4.51); Absolute Neutrophil Count 6.6 X10^3/uL (2.0-7.7); Basophil# 0.14 X10^3/uL; Basophil% 1.3 % (0-1); Eosinophil# 0.18 X10^3/uL; Eosinophils% 1.7 % (0-5); Hematocrit 27.8 % (37-47); Hemoglobin 8.7 g/dL (12.0-15.0); Lymphocyte # 3.06 X10^3/ul (0.83-4.51); Lymphocyte % 28.8 % (19-41); Mean Corp Hgb Conc 31.3 g/dL (32-36); Mean Corpuscular Hgb 29.6 pg (27.0-32.0); Mean Corpuscular Volume 94.6 fL (81-99); Mean Platelet Vol. 9.5 fl (6.2-12.0); Monocyte# 0.66 X10^3/uL; Monocyte% 6.2 % (0-10); NRBC Flagged by Analyzer 0 % (0-5); Neutrophil # 6.57 X10^3/uL (2.7-7.7); Neutrophil % 61.8 % (47-70); Platelet Count 195 K/mm3 (150-450); RBC Distribution Width CV 15.7 % (11.6-14.6); RBC Distribution Width SD 53.3 fl (35.1-43.9); Red Blood Count 2.94 M/mm3 (4.2-5.4); White Blood Count 10.6 K/mm3 (4.4-11.0)
[2024-02-08 23:22] LABS: International Normalized Ratio 1.4; Prothrombin Time (Protime)PT. 17.2 SECONDS (11.7-14.9)
[2024-02-08 23:30] VITALS: BP 172/73; PULSE 63; RESP 18; O2SAT 98
[2024-02-08 23:32] VITALS: PULSE 64; RESP 12; O2SAT 99
[2024-02-08 23:34] LABS: Anion Gap 5 (5-15); BUN 46 mg/dL (7-18); Calcium,Total 7.5 mg/dL (8.5-10.1); Chloride 122 mmol/L (98-107); Creatinine, Serum 1.77 mg/dL (0.55-1.02); EST Glomerular Filtration Rate 30 mL/min (>60); Est Glom Filt Rate - Afr Amer 37 mL/min (>60); Glucose 159 mg/dL (74-106); Magnesium 1.2 mg/dL (1.6-2.6); Potassium 3.7 mmol/L (3.5-5.1); Sodium Level 141 mmol/L (136-145); Troponin-I HS 73 pg/mL (3.0-54.0)
[2024-02-08 23:41] LABS: Partial Thromboplast Time < 24.0 Seconds (24.1-36.2)
[2024-02-08] MEDS: 0.9% Normal Saline (500mL Bag) 500 ML 999 ML IV (23:44)
[2024-02-09] VITALS: BP 157/71; PULSE 61; RESP 15
--- NOTE | 2024-02-09 00:10 | MRI_ITS ---
We are attempting to reach an attending provider to discuss findings. An addendum with communication details will be sent when the communication is complete. EXAM: MR LUMBAR SPINE WITHOUT INTRAVENOUS CONTRAST CLINICAL INDICATION: Paralysis/? Cauda equina TECHNIQUE: Multiplanar and multisequence MR images of the lumbar spine without intravenous contrast. COMPARISON: No relevant prior studies available. FINDINGS: ALIGNMENT: There is mild-moderate levoscoliosis centered at L2-3. VERTEBRAE: Unremarkable. Vertebral body heights are preserved. Normal vertebral bodies and posterior elements. Normal alignment. No spondylolisthesis. There is preservation of the normal lumbar lordosis. SPINAL CORD: Unremarkable. Normal position and signal intensity of the conus medullaris at L1. SOFT TISSUES: Fairly symmetric kidneys, 13.4 cm in length on the right and 13.1 cm in length on the left. DISCS/SPINAL CANAL/NEURAL FORAMINA: L1-L2: Moderate-marked disc space narrowing. Modic type I T1 and T2 signal intensity of the opposing discs, mild annular disc bulge, mild bilateral neural foraminal narrowing. No spinal stenosis. L2-L3: Marked disc space narrowing, mild Modic type endplate degenerative changes, moderate annular disc bulge and mild right lateral protruding disc. Mild flattening of the ventral thecal sac but the AP diameter of the midline canal is roughly 1.1 cm, nonstenotic. Mild bilateral neural foraminal stenosis. L3-L4: Moderate decreased disc height. Mild Modic type degenerative changes of the opposing endplates, high signal on T1 and T2.. Moderate annular disc bulge. Mild facet joint hypertrophic changes. Moderate-marked right and mild left neural foraminal stenosis. L4-L5: Very high T2 signal intensity in the disc, low signal on T1, with bone marrow edema at the opposing irregular endplates, endplates low signal on T1 and intermediate to minimally decreased signal on T2. Cannot exclude discitis-early osteomyelitis. Moderate facet joint hypertrophic changes. Mild effacement of the left lateral recess. Narrowing of the transverse diameter of the canal, roughly 1.1 cm, the AP diameter of the midline canal is mildly stenotic at 8 mm. There is low signal right posterior lateral and lateral broad-based disc protrusion. Marked right mid neural foraminal stenosis, milder left proximal neural foraminal stenosis. L5-S1: Only mild decreased disc height and signal intensity with prominent left lateral uncovertebral osteophytes and mild asymmetric left Modic type endplate degenerative changes. Marked left foraminal stenosis. No cornelius spinal stenosis.. MRI/Spine Lumbar (Routine) IMPRESSION: Scoliosis and multilevel degenerative spine changes. Intense increased signal intensity in the L4-5 narrowed disc and edema signal involving the adjacent endplates, cannot exclude discitis-osteomyelitis in the appropriate clinical setting. Please correlate with ESR and other appropriate workup. Spinal and neural foraminal stenosis especially at L4-5, especially narrowing of the transverse diameter of the canal. Consider adding enhanced study if it is thought to be indicated. No cauda equina direct impingement. Multilevel degenerative changes and predominantly neural foraminal stenosis. Electronically Signed: Marcy Grande MD at 2:17 EDT ,
[2024-02-09 01:00] VITALS: BP 157/71; PULSE 63; RESP 16; O2SAT 99
--- NOTE | 2024-02-09 01:16 | ED.RN ---
Verbal order given by Dr. Hwang to cancel stroke documentation including NIHs.
--- NOTE | 2024-02-09 02:39 | EDS_ITS ---
HPI History of Present Illness Chief Complaint: Numb/Ting Informant: patient Narrative Narrative: Patient is a 69-year-old female with past medical history of type 2 diabetes previous osteomyelitis of the left foot mitral valve prolapse and history of meningioma of the brain. She underwent a colonoscopy today at 4 PM and when she awoke reported that she could not move or feel her bilateral lower legs. She states that she was informed that this could be anesthesia related and to give it time but is been approximately 6 hours now with no symptom improvement and therefore patient was sent to the ER for evaluation [facility] Medical History (Updated 02/09/24 @ 05:[address] Misael Pugh, DO) Acute renal insufficiency Brain tumor (benign) Chronic diarrhea Debility Deep venous thrombosis of distal end of left lower extremity Diabetic foot ulcer Gastroesophageal reflux disease Gastroparesis Generalized weakness History of cerebrovascular accident History of deep venous thrombosis (DVT) of distal vein of left lower extremity History of ischemic colitis History of myocardial infarction History of pneumonia Hydronephrosis Migraine Non-pressure chronic ulcer of other part of right foot with fat layer exposed Osteoarthritis of cervical and lumbar spine PAD (peripheral artery disease) Type 2 diabetes mellitus with diabetic polyneuropathy Ulcer of amputation stump of foot Unable to ambulate Urge incontinence Wound of left foot Home Medications albuterol sulfate 90 mcg/actuation aerosol inhaler (Ventolin HFA) 1 puff inhala tion Q4H PRN PRN SHORTNESS OF BREATH #0 grams 03/25/21 [Rx Last Taken 2 Weeks Ago ~03/27/23] ondansetron 4 mg disintegrating tablet 4 mg PO Q6H PRN PRN NAUSEA #0 tabs 03/25/21 [Rx Last Taken 04/10/23] tramadol 50 mg tablet 50 mg PO Q6H PRN Pain 05/18/21 [History Last Taken Unknown] acetaminophen 325 mg tablet 975 mg PO TID PRN Pain 12/31/22 [History Last Taken 02/02/24 06:00] folic acid 1 mg tablet 1 mg PO DAILY supplement #30 tabs 02/15/23 [Rx Last Taken 04/09/23] Lactobacillus rhamnosus GG 10 billion cell capsule (Culturelle) 1 cap PO DAILY GUT HEALTH 04/10/23 [History Last Taken 04/09/23] cholecalciferol (vitamin D3) 125 mcg (5,000 unit) tablet 125 mcg PO DAILY SUPPLEMENT 04/10/23 [History Last Taken 04/09/23] diphenoxylate-atropine 2.5 mg-0.025 mg tablet 1 tab PO BID DIARRHEA 04/10/23 [History Last Taken 04/10/23] pantoprazole 40 mg tablet,delayed release 40 mg PO DAILY GERD 04/10/23 [History Last Taken 02/02/24 06:00] ondansetron 4 mg disintegrating tablet 4 mg PO Q8H nausea #20 tabs 08/10/23 [Rx Last Taken Unknown] arginine 7 gram-glutam 7 gram-CaHMB 1.5 [id number] oral pwd pkt (Alfredo (with collagen)) 1 packet PO BID supplement 01/21/24 [History Last Taken Unknown] loperamide 2 mg capsule 2 mg PO Q12H diarrhea 01/21/24 [History Last Taken Unknown] vancomycin 125 mg capsule 125 mg PO BID 02/01/24 [History Last Taken Unknown] Allergy/AdvReac Type Severity Reaction Status Date / Time cefprozil Allergy Shortness Verified 02/08/24 14:50 of breath ceftriaxone Allergy Hives Verified 02/08/24 14:50 clindamycin Allergy Rash Verified 02/08/24 14:50 enalapril Allergy Other Verified 02/08/24 14:50 enoxaparin Allergy Rash Verified 02/08/24 14:50 heparin Allergy Rash Verified 02/08/24 14:50 levalbuterol Allergy Other Verified 02/08/24 14:50 morphine Allergy Shortness Verified 02/08/24 14:50 of breath Penicillins Allergy Anaphylaxis Verified 02/08/24 14:50 valsartan Allergy Other Verified 02/08/24 14:50 vancomycin Allergy Rash Verified 02/08/24 14:50 atorvastatin AdvReac Other Verified 02/08/24 14:50 rosuvastatin [From Crestor] AdvReac Other Verified 02/08/24 14:50 Family History Mother Cancer Lung CA w/ tobacco use history. Diabetes COPD (chronic obstructive pulmonary disease) Father Cancer Lung CA w/ tobacco use history. Diabetes COPD (chronic obstructive pulmonary disease) Heart disease Surgical History (Updated 02/05/24 @ 00:16 by Anthony Noble) History of appendectomy History of eye surgery History of foot surgery History of lumpectomy History of tubal ligation Status post transmetatarsal amputation of left foot Tubal ligation status Social History household members: none Smoking Status: Never smoker alcohol intake: never substance use type: does not use ROS ROS ED Constitutional Constitutional ED: Denies chills or fever(s) ENT ENT ED: Denies sore throat Cardiovascular Cardiovascular: Denies chest pain Respiratory/Chest Respiratory/Chest: Denies cough or dyspnea Gastrointestinal Gastrointestinal: Denies abdominal pain, diarrhea, nausea or vomiting Genitourinary Genitourinary ED: Denies dysuria Musculoskeletal Musculoskeletal: Denies back pain or myalgias Integumentary Denies rash Neurologic Neurologic: Reports paresthesias and weakness; Denies headache(s) Hematologic/Lymphatic Hematologic/Lymphatic: Denies easy bleeding or easy bruising EXAM Physical Exam Const Vital Signs: 02/08/24 22:11 02/08/24 22:39 02/08/24 22:39 Temperature 97.6 F L Temperature Source Temporal Pulse Rate 80 80 Respiratory Rate 18 18 Blood Pressure 129/69 H 129/69 H Blood Pressure Mean 89 89 Pulse Ox 99 99 Oxygen Delivery Method Room Air Room Air Room Air 02/08/24 23:09 02/08/24 23:30 02/08/24 23:32 Temperature Temperature Source Pulse Rate 71 63 64 Respiratory Rate 18 18 12 Blood Pressure 132/62 H 172/73 H Blood Pressure Mean 85 106 Pulse Ox 98 98 99 Oxygen Delivery Method Room Air Room Air 02/09/24 00:00 02/09/24 01:00 02/09/24 03:00 Temperature 97.7 F L Temperature Source Temporal Pulse Rate 61 63 67 Respiratory Rate 15 16 16 Blood Pressure 157/71 H 157/71 H 150/67 H Blood Pressure Mean 95 99 94 Pulse Ox 99 98 Oxygen Delivery Method Room Air 02/09/24 03:09 Temperature 97.7 F L Temperature Source Pulse Rate 67 Respiratory Rate 16 Blood Pressure 150/67 H Blood Pressure Mean 94 Pulse Ox 98 Oxygen Delivery Method Positive well nourished and well developed General Appearance ED: well developed and pallor HEENT Reports dry mucous membranes HEENT Narrative: No tongue or lip swelling no oral lesions no airway edema or compromise No secondary changes in the posterior pharynx to suggest infection Mouth ED: Yes dry mucous membranes Mouth: dry mucous membranes Eyes PERRL and EOMs intact bilaterally General Eye ED: Yes pale conjunctiva; Negative for scleral icterus Neck supple Neck Narrative: No nuchal rigidity or meningeal signs noted Resp normal respiratory effort and clear to auscultation bilaterally Resp Narrative: Breath sounds are diminished throughout but overall clear to auscultation No nasal flaring retractions tachypnea or accessory muscle use Cardio regular rate and regular rhythm GI normal to inspection, nondistended, normoactive bowel sounds, non-tender, non- distended and no masses GI Narrative: Abdomen is soft nontender nondistended with normal active bowel sounds No pulsatile mass or fluid wave No organomegaly noted Auscultation: normoactive bowel sounds Palpation: soft Extremity Extremity Narrative: Patient has a partial amputation of her left foot consistent with history of osteomyelitis Patient has chronic wounds of bilateral feet without secondary changes to suggest infection Neuro oriented x3 and CN's II-XII intact bilaterally Neuro Narrative: Patient is awake and alert to person place and time and cranial nerves II through XII are grossly intact. Patient does have chronic right arm weakness from previous brain tumor and stroke Patient does not have any motion of her right or left leg and there is decreased sensation of both legs from below the knee secondary to this she receives a stroke scale score of 9 Sensorium / Orientation: alert Motor Exam: strength abnormal Psych mental status grossly normal Skin Skin Narrative: Skin is pale in color but capillary refills less than 3 seconds Patient has chronic wounds to the bilateral lower legs/feet without secondary changes to suggest infection General Skin Exam: pallor; Negative for jaundice MDM MDM MDM Narrative Medical decision making narrative: Patient arrived to the ER awake and alert with stable vitals and her last known well was approximately 6 hours prior to ER presentation. She has paralysis of her bilateral lower legs and decreased sensation of the legs below the knee as well bilaterally. Differential diagnosis is for an acute CVA versus spinal cord infarct versus cauda equina or potential infection such as epidural abscess or discitis. There is also concern this could be related to electrolyte abnormality or postanesthesia reaction. Based on the patient's new onset pa ralysis and sensory loss a stroke alert was activated. Patient received a CT and CTA. Neurology agrees that her symptoms are not consistent with an acute stroke and that she is not a candidate for TNK based on her presentation and timeframe. There is higher concern this could be related to spinal cord injury such as cauda equina and therefore they recommend an emergent MRI. This was obtained and showed no obvious findings of cauda equina or acute infectious process such as epidural abscess. It did show increased signal density which could be related to early osteomyelitis/discitis but patient does not have any recent back surgery to suggest a nidus of infection she is not febrile and does not have a white count and therefore concern for this is low. Moreover without any intervention patient is having resolution of symptoms. The patient was now able to plantar and dorsiflex each foot and lift each leg off the bed in a straight leg fashion. She also reports improvement in sensation bilaterally. The case was discussed with neurosurgery on-call Dr. Savage. He agrees that as her stroke workup is negative her MRI does not show any obvious findings and she has had spontaneous improvement of symptoms that there is no need for admission and that this can be worked up on an outpatient basis and patient is safe to return to TCU. This plan of care was discussed with the patient she is agreeable to it and on further reevaluation she has had even more improvement to strength and sensation than the previous evaluation. History & Record Review Discussion w/independent historian: Patient Lab Data Attestation: I reviewed the patient's lab results. Labs: Laboratory Results - last 24 hr 02/08/24 02/08/24 22:47 23:05 WBC 10.6 RBC 2.94 L Hgb 8.7 L Hct 27.8 L MCV 94.6 MCH 29.6 MCHC 31.3 L RDW Std Deviation 53.3 H RDW Coeff of Xin 15.7 H Plt Count 195 MPV 9.5 Immature Gran % (Auto) 0.200 Neut % (Auto) 61.8 Lymph % (Auto) 28.8 [place] % (Auto) 6.2 Eos % (Auto) 1.7 Baso % (Auto) 1.3 H Absolute Neuts (auto) 6.6 Absolute Lymphs (auto) 3.06 Nucleated RBC % 0 PT 17.2 H INR 1.4 APTT < 24.0 L Sodium 141 Potassium 3.7 Chloride 122 H Carbon Dioxide 14.0 L Anion Gap 5 BUN 46 H Creatinine 1.77 H Est GFR (MDRD) Af Amer 37 L Est GFR (MDRD) Non-Af 30 L BUN/Creatinine Ratio 26.0 H Glucose 159 H Calcium 7.5 L Magnesium 1.2 L Troponin I High Sens 73 H POC Glucose 138 H Radiography Diagnostic Testing: Clinical Impression(s) from Imaging Studies Brain CT 02/08/24 22:39 IMPRESSION: 1. No evidence of acute CVA. Mild chronic changes. 2. 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 No associated parenchymal edema or midline shift. Electronically Signed: Marcy Grande MD at 23:11 EDT , ADDENDUM: 02/08/24 2319 IMPRESSION: 1. No evidence of acute CVA. Mild chronic changes. 2. 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 No associated parenchymal edema or midline shift. N.B. : The above Results were Read Back by Marcy Grande MD to Misael Pugh DO, and understanding confirmed on 02/08/2024 23:12:41 (ET). Electronically Signed: Marcy Grande MD at 23:11 EDT Reading Location ID and State: [facility] / [place] Tel , Service support , Chest X-Ray 02/08/24 22:39 IMPRESSION: No radiographic evidence of acute cardiopulmonary disease. Electronically Signed: Marcy Grande MD at 0:45 EDT , Head/Neck CTA 02/08/24 22:39 IMPRESSION: Negative CTA carotid and CTA brain. No high-grade stenosis. Mild right cervical carotid plaque. 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 Asymmetric A1 segments. Planum sphenoidale benign meningioma, reported on multiple prior studies. Moderate degenerative spine changes. Small hyperdense extra-axial mass at the right foramen magnum, roughly 1.2 cm x 0.6 cm x 0.8 cm. Considerations include nerve sheath tumor or atypical meningioma or vascular-venous plexus. It is inferior to the right posterior inferior cerebellar artery and superior to the distal right vertebral artery but does not appear to be of arterial origin. Similar density to venous plexus at the upper spine but ovoid and masslike. Comparison to prior CTA or enhanced CT or MRI would be useful. N.B. : The above Results were Read Back by Marcy Grande MD to Misael Pugh DO, and understanding confirmed on 02/08/2024 23:40:49 (ET). Electronically Signed: Marcy Grande MD at 23:42 EDT , ADDENDUM: 02/08/24 2349 IMPRESSION: Negative CTA carotid and CTA brain. No high-grade stenosis. Mild right cervical carotid plaque. 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 Asymmetric A1 segments. Planum sphenoidale benign meningioma, reported on multiple prior studies. Moderate degenerative spine changes. Small hyperdense extra-axial mass at the right foramen magnum, roughly 1.2 cm x 0.6 cm x 0.8 cm. Considerations include nerve sheath tumor or atypical meningioma or vascular-venous plexus. It is inferior to the right posterior inferior cerebellar artery and superior to the distal right vertebral artery but does not appear to be of arterial origin. Similar density to venous plexus at the upper spine but ovoid and masslike. Comparison to prior CTA or enhanced CT or MRI would be useful. N.B. : The above Results were Read Back by Marcy Grande MD to Misael Pugh DO, and understanding confirmed on 02/08/2024 23:40:49 (ET). Electronically Signed: Marcy Grande MD at 23:42 EDT , ADDENDUM: 02/09/24 0019 IMPRESSION: undefined Lumbar Spine MRI 02/09/24 00:10 IMPRESSION: Scoliosis and multilevel degenerative spine changes. Intense increased signal intensity in the L4-5 narrowed disc and edema signal involving the adjacent endplates, cannot exclude discitis-osteomyelitis in the appropriate clinical setting. Please correlate with ESR and other appropriate workup. Spinal and neural foraminal stenosis especially at L4-5, especially narrowing of the transverse diameter of the canal. Consider adding enhanced study if it is thought to be indicated. No cauda equina direct impingement. Multilevel degenerative changes and predominantly neural foraminal stenosis. Electronically Signed: Marcy Grande MD at 2:17 EDT , ADDENDUM: 02/09/24 0243 IMPRESSION: Scoliosis and multilevel degenerative spine changes. Intense increased signal intensity in the L4-5 narrowed disc and edema signal involving the adjacent endplates, cannot exclude discitis-osteomyelitis in the appropriate clinical setting. Please correlate with ESR and other appropriate workup. Spinal and neural foraminal stenosis especially at L4-5, especially narrowing of the transverse diameter of the canal. Consider adding enhanced study if it is thought to be indicated. No cauda equina direct impingement. Multilevel degenerative changes and predominantly neural foraminal stenosis. N.B. : The above Results were Read Back by Marcy Grande MD to misael pugh DO, and understanding confirmed on 02/09/2024 02:37:02 (ET). Electronically Signed: Marcy Grande MD at 2:17 EDT , Chest x-ray as interpreted by the emergency medicine physician reveals no acute infiltrate pneumothorax or pleural effusion Management Discussion w/another healthcare provider: Human Service Specialist Discharge Plan Triage Chief Complaint: Numb/Ting ED Provider: Misael Pugh Dx/Rx/DC Orders Clinical Impression: Neurapraxia, History of benign brain tumor, Type 2 diabetes mellitus with foot ulcer, PAD (peripheral artery disease), Mitral valve prolapse Instructions: ED Neuropathy, Peripheral Prescriptions: No Action folic acid 1 mg tablet 1 mg PO DAILY Qty: 30 11RF albuterol sulfate [Ventolin HFA] 90 mcg/actuation Hfa Aerosol Inhaler 1 puff inhalation Q4H PRN PRN (Reason: SHORTNESS OF BREATH) Qty: 0 0RF ondansetron 4 mg Tablet,Disintegrating 4 mg PO Q6H PRN PRN (Reason: NAUSEA) Qty: 0 0RF tramadol 50 mg Tablet 50 mg PO Q6H PRN (Reason: Pain) acetaminophen 325 mg Tablet 975 mg PO TID PRN (Reason: Pain) diphenoxylate-atropine 2.5-0.025 mg tablet 1 tab PO BID Patient Comments: TAKE 1 TABLET BY MOUTH TWICE A DAY NEEDED FOR DIARRHEA pantoprazole 40 mg Tablet,Delayed Release (Dr/Ec) 40 mg PO DAILY Culturelle 10 billion cell Capsule 1 cap PO DAILY cholecalciferol (vitamin D3) 125 mcg (5,000 unit) Tablet 125 mcg PO DAILY loperamide 2 mg capsule 2 mg PO Q12H Patient Comments: TAKE 1 CAPSULE BY MOUTH TWICE A DAY Alfredo (with collagen) 7-7-1.5 gram powder in packet 1 packet PO BID Rx Instructions: mix 1 packet with 8-10 oz liquid vancomycin 125 mg capsule 125 mg PO BID ondansetron 4 mg tablet,disintegrating 4 mg PO Q8H Qty: 20 0RF Hold Instructions: Ordered Primary Care Provider: Cody Billings Referrals: Cody Billings MD [Primary Care Provider] - Disposition Disposition: Home, Self Care Discharge Date/Time: 02/09/24 03:29
[2024-02-09 03:00] VITALS: BP 150/67; PULSE 67; RESP 16; TEMP 36.5; O2SAT 98
[2024-02-09 03:09] VITALS: BP 150/67; PULSE 67; RESP 16; TEMP 36.5; O2SAT 98
--- NOTE | 2024-02-09 03:16 | ED.RN ---
this nurse called report to TCU and asked if they could send someone to take pt back to TCU.
== END 2024-02-09 03:29 | disposition home or self-care (01) ==
PROVIDERS: Emergency Provider Emergency Medicine; PCP Family Medicine; Visit Provider Emergency Medicine
DX: E11.51 Type 2 diabetes mellitus with diabetic peripheral angiopathy without gangrene (principal); E11.621 Type 2 diabetes mellitus with foot ulcer; L97.512 Non-pressure chronic ulcer of other part of right foot with fat layer exposed; E11.43 Type 2 diabetes mellitus with diabetic autonomic (poly)neuropathy; I25.2 Old myocardial infarction; Z86.718 Personal history of other venous thrombosis and embolism; I34.1 Nonrheumatic mitral (valve) prolapse
CPT/HCPCS: 70450; 70496; 70498; 71045; 72148; 80048; 82962; 83735; 84484; 85025; 85610; 85730; 93005; 99284; Q9967; A4216

== ENCOUNTER 2024-04-25 16:26 | Inpatient (IN) | payer MEDICARE, OTHER, SELFPAY ==
[2024-04-25 16:27] VITALS: BP 106/69; PULSE 68; RESP 17; TEMP 36.1; O2SAT 98; BMI 23.7
--- NOTE | 2024-04-25 16:34 | EKG12_ITS ---
Test Reason : ABNORMAL LABS Blood Pressure : / mmHG Vent. Rate : 069 BPM Atrial Rate : 069 BPM P-R Int : 184 ms QRS Dur : 098 ms QT Int : 392 ms P-R-T Axes : 029 -08 034 degrees QTc Int : 420 ms Normal sinus rhythm Low voltage QRS Nonspecific ST and T wave abnormality ,possibly metabolic Abnormal ECG Confirmed by Celio Wu ([id number]), material expeditor GEE YEBOAH ([id number]) on 04/27/2024 7:44:53 AM Referred By: MAURILIO/SHERIE Confirmed By:Celio Wu
--- NOTE | 2024-04-25 17:12 | CT_ITS ---
STUDY: CT BRAIN WITHOUT CONTRAST REASON FOR EXAM: Female, 69 years old. headache RADIATION DOSAGE (If Supplied By Facility): CTDIvol = ( 44.99 ) mGy, DLP = ( 812.98 ) mGycm TECHNIQUE: Transaxial CT imaging of the brain was performed without administration of intravenous contrast material. Individualized dose optimization techniques were used for this CT. COMPARISON: No relevant priors. FINDINGS: Normal soft tissue structures. 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 Calcific plaquing of the cavernous carotids. Mild atrophy and periventricular white matter ischemic changes.. Normal basal ganglia and thalami. Normal brainstem. Normal cerebellum. There is no intracranial hemorrhage. There are no findings of an acute ischemic infarction. Minor mucosal thickening of left maxillary sinus.. Postsurgical changes of the orbits. 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 Mild atrophy and periventricular white matter ischemic changes. No evidence for obstructive hydrocephalus mass or acute bleed Electronically Signed: Cody Lechuga MD at 18:10 EDT ,
[2024-04-25] MEDS: 0.9% Normal Saline (1000mL) 1,000 ML 125 ML IV (17:17)
[2024-04-25] MEDS: Metoclopramide 10 MG/2 ML Vial 5 MG IV (17:17)
[2024-04-25 17:21] LABS: Absolute Lymphocyte Count 2.51 X10^3/uL (0.83-4.51); Absolute Neutrophil Count 9.3 X10^3/uL (2.0-7.7); Basophil# 0.08 X10^3/uL; Basophil% 0.6 % (0-1); Eosinophils% 2.2 % (0-5); Hematocrit 23.6 % (37-47); Hemoglobin 7.6 g/dL (12.0-15.0); Lymphocyte # 2.51 X10^3/ul (0.83-4.51); Lymphocyte % 18.6 % (19-41); Mean Corp Hgb Conc 32.2 g/dL (32-36); Mean Corpuscular Hgb 31.5 pg (27.0-32.0); Mean Corpuscular Volume 97.9 fL (81-99); Monocyte# 1.21 X10^3/uL; Monocyte% 8.9 % (0-10); NRBC Flagged by Analyzer 0 % (0-5); Neutrophil # 9.34 X10^3/uL (2.7-7.7); Platelet Count 344 K/mm3 (150-450); RBC Distribution Width CV 12.8 % (11.6-14.6); Red Blood Count 2.41 M/mm3 (4.2-5.4); White Blood Count 13.5 K/mm3 (4.4-11.0)
--- NOTE | 2024-04-25 17:22 | EDS_ITS ---
HPI <HILDA Beckham - Last Filed: 04/25/24 18:32> History of Present Illness Chief Complaint: Abn Labs Narrative Narrative: Patient is a 69-year-old female with history diabetes, DVT, PVD, gastroparesis who presents to the emergency department for headache, as well as low sodium. The patient is currently in a nursing facility for rehab. Patient has been receiving IV fluids, patient's sodium was 127's, today it was 125, it has decreased in the last 2 to 3 days. Patient states she is continue to having nausea and vomiting, she does have history of gastroparesis. She also complains of this headache. She denies any frequent falls. States he has not walked in over 4 years. Denies any fever chills PFSH <HILDA Beckham - Last Filed: 04/25/24 18:32> [facility] Medical History Gastroparesis Acute renal insufficiency Urge incontinence Hydronephrosis Unable to ambulate Generalized weakness Non-pressure chronic ulcer of other part of right foot with fat layer exposed History of myocardial infarction History of cerebrovascular accident History of deep venous thrombosis (DVT) of distal vein of left lower extremity History of ischemic colitis Ulcer of amputation stump of foot Wound of left foot PAD (peripheral artery disease) Deep venous thrombosis of distal end of left lower extremity Type 2 diabetes mellitus with diabetic polyneuropathy Gastroesophageal reflux disease Osteoarthritis of cervical and lumbar spine Chronic diarrhea Brain tumor (benign) Diabetic foot ulcer Debility History of pneumonia Migraine Home Medications ?Medication ?Instructions ?Recorded ?Last Taken ?Type folic acid 1 mg tablet 1 mg PO DAILY supplement #30 tabs 02/15/23 04/09/23 Rx Lactobacillus rhamnosus GG 10 1 cap PO DAILY GUT HEALTH 04/10/23 04/09/23 History billion cell capsule (Culturelle) pantoprazole 40 mg tablet,delayed 40 mg PO DAILY GERD 04/10/23 02/02/24 06:00 History release acetaminophen 500 mg tablet 1,000 mg PO Q6H PRN Pain Score 1-5 04/25/24 Unknown History albuterol sulfate 90 mcg/actuation 1 puff inhalation Q4H PRN 04/25/24 Unknown History aerosol inhaler (Ventolin HFA) SHORTNESS OF BREATH camphor-menthol 0.2 %-3.5 % 1 applic topical BID 04/25/24 Unknown History topical gel (Freeze It Relief) cyclobenzaprine 5 mg tablet 5 mg PO QHS PRN muscle spasm 04/25/24 Unknown History ergocalciferol (vitamin D2) 1,250 1,250 mcg PO WE 04/25/24 Unknown History mcg (50,000 unit) capsule food supplemt, lactose-reduced 120 ml PO TID 04/25/24 Unknown History 0.04 gram-1.05 kcal/mL oral liquid (Boost Breeze Nutritional) levetiracetam 250 mg tablet 250 mg PO BID 04/25/24 Unknown History (Keppra) loperamide 2 mg capsule 2 mg PO BID 04/25/24 Unknown History melatonin 3 mg tablet 3 mg PO QHS PRN sleep 04/25/24 Unknown History ondansetron 4 mg disintegrating 4 mg PO Q6H PRN NAUSEA 04/25/24 Unknown History tablet Allergy/AdvReac Type Severity Reaction Status Date / Time cefprozil Allergy Shortness Verified 04/25/24 16:33 of breath ceftriaxone Allergy Hives Verified 04/25/24 16:33 clindamycin Allergy Rash Verified 04/25/24 16:33 enalapril Allergy Other Verified 04/25/24 16:33 enoxaparin Allergy Rash Verified 04/25/24 16:33 heparin Allergy Rash Verified 04/25/24 16:33 levalbuterol Allergy Other Verified 04/25/24 16:33 morphine Allergy Shortness Verified 04/25/24 16:33 of breath Penicillins Allergy Anaphylaxis Verified 04/25/24 16:33 valsartan Allergy Other Verified 04/25/24 16:33 vancomycin Allergy Rash Verified 04/25/24 16:33 atorvastatin AdvReac Other Verified 04/25/24 16:33 rosuvastatin (From Crestor) AdvReac Other Verified 04/25/24 16:33 Family History Mother Cancer Lung CA w/ tobacco use history. Diabetes COPD (chronic obstructive pulmonary disease) Father Cancer Lung CA w/ tobacco use history. Diabetes COPD (chronic obstructive pulmonary disease) Heart disease Surgical History Status post transmetatarsal amputation of left foot History of eye surgery History of lumpectomy History of foot surgery History of tubal ligation History of appendectomy Tubal ligation status Social History household members: none Smoking Status: Never smoker alcohol intake: never substance use type: does not use ROS <HILDA Beckham - Last Filed: 04/25/24 18:32> ROS ED ROS Narrative Constitutional: Negative for fever, chills, weight loss. Positive for weakness Eyes: Negative for vision loss, vision change, double vision ENT: Negative for any sore throat, ear pain, congestion Cardiovascular: Negative for any chest pain, tightness, palpitations Respiratory: Negative for any cough, sputum production, hemoptysis, dyspnea, dyspnea on exertion, orthopnea Gastrointestinal: Negative for any abdominal pain, diarrhea, constipation, blood in stool, blood in vomit. Positive for nausea and vomiting : Negative for any urinary frequency, dysuria, retention, blood in urine Muscle skeletal: Negative for any neck pain, back pain Neurological: Negative for any syncope, dizziness. Positive for headache Skin: Negative for any rashes, itching, abrasions, lacerations Psychiatric: Negative for any depression, anxiety, stress, suicidal ideation, homicidal ideation Hematologic: Negative for any excessive bruising, easy bleeding EXAM <HILDA Beckham - Last Filed: 04/25/24 18:32> Physical Exam Narrative Exam Narrative: Vital signs reviewed. Vital signs are stable, patient does appear slightly cachectic, pale HEET: Head normocephalic atraumatic, TMs clear bilaterally. Posterior pharynx is clear, dry mucous membranes. Nares clear bilaterally. Neck: Supple with no lymphadenopathy or tenderness. No signs of meningismus. Cardiac: Regular rate and rhythm no murmurs gallops or rubs, equal peripheral pulses bilaterally. Respiratory: Lungs clear to auscultation bilaterally. No chest tenderness. Abdomen: Soft, nontender, nondistended. No abdominal bruit or pulsatile masses. No hepatosplenomegaly Extremities: No peripheral edema, no signs of gross trauma or deformity. Active full range of motion of all extremities. Patient does have all the toes removed in the left foot. Heel guard on the right foot Neuro: Cranial nerves II through XII intact, no focal neurological deficits. Skin: Clean dry and intact with no rash, purpura, petechiae, vesicles or pustules. Backs/flank: No CVA tenderness, no midline spinal tenderness, no deformity. Psych: Normal mood and affect. No SI, HI or acute psychosis. Const Vital Signs: 04/25/24 16:27 04/25/24 16:35 04/25/24 18:27 Temperature 97.0 F L Temperature Source Temporal Pulse Rate 68 66 Respiratory Rate 17 16 Respiratory Effort Normal Non-Labored Respiratory Pattern Normal Blood Pressure 106/69 104/68 Blood Pressure Mean 81 80 Pulse Ox 98 95 Oxygen Delivery Method Room Air 04/25/24 19:18 04/25/24 19:20 Temperature 97.5 F L 97.5 F L Temperature Source Oral Pulse Rate 65 65 Respiratory Rate 17 17 Respiratory Effort Respiratory Pattern Blood Pressure 90/71 90/71 Blood Pressure Mean 77 77 Pulse Ox 95 95 Oxygen Delivery Method Room Air <Dr. Ministerio Cisneros MD - Last Filed: 04/25/24 19:40> Physical Exam Const Vital Signs: 04/25/24 16:27 04/25/24 16:35 04/25/24 18:27 Temperature 97.0 F L Temperature Source Temporal Pulse Rate 68 66 Respiratory Rate 17 16 Respiratory Effort Normal Non-Labored Respiratory Pattern Normal Blood Pressure 106/69 104/68 Blood Pressure Mean 81 80 Pulse Ox 98 95 Oxygen Delivery Method Room Air 04/25/24 19:18 04/25/24 19:20 Temperature 97.5 F L 97.5 F L Temperature Source Oral Pulse Rate 65 65 Respiratory Rate 17 17 Respiratory Effort Respiratory Pattern Blood Pressure 90/71 90/71 Blood Pressure Mean 77 77 Pulse Ox 95 95 Oxygen Delivery Method Room Air [facility] <HILDA Beckham - Last Filed: 04/25/24 18:32> [facility] Lab Data Labs: Laboratory Results - last 24 hr 04/25/24 04/25/24 17:11 17:40 WBC 13.5 H RBC 2.41 L Hgb 7.6 L Hct 23.6 L MCV 97.9 MCH 31.5 MCHC 32.2 RDW Std Deviation 46.0 H RDW Coeff of Xin 12.8 Plt Count 344 MPV 10.0 Immature Gran % (Auto) 0.700 Neut % (Auto) 69.0 Lymph % (Auto) 18.6 L Stone % (Auto) 8.9 Eos % (Auto) 2.2 Baso % (Auto) 0.6 Absolute Neuts (auto) 9.3 H Absolute Lymphs (auto) 2.51 Nucleated RBC % 0 Sodium 123 L Potassium 4.2 Chloride 101 Carbon Dioxide 13.0 L Anion Gap 9 BUN 48 H Creatinine 1.95 H Estim Creat Clear Calc 23.84 Est GFR (MDRD) Af Amer 33 L Est GFR (MDRD) Non-Af 27 L BUN/Creatinine Ratio 24.6 H Glucose 176 H Lactic Acid 1.0 Calcium 7.8 L Total Bilirubin 0.40 AST 22 ALT 21 Alkaline Phosphatase 139 H Total Protein 7.8 Albumin 1.8 L Globulin 6.0 H Albumin/Globulin Ratio 0.3 L Lipase 34 Urine Color Yellow Urine Clarity Cloudy Urine pH 6.0 Ur Specific Carney 1.020 Urine Protein 100 H Urine Glucose (UA) Normal Urine Ketones Negative Urine Occult Blood 150 H Urine Nitrite Negative Urine Bilirubin 1 H Urine Urobilinogen 1 H Ur Leukocyte Esterase 500 H Urine RBC 0 SEEN Urine WBC >100 SEEN Ur Squamous Epith Cells 0 SEEN Urine Bacteria 4+ Urine Mucus 0 SEEN Radiography Diagnostic Testing: Clinical Impression(s) from Imaging Studies Brain CT 04/25/24 17:12 IMPRESSION: 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 Mild atrophy and periventricular white matter ischemic changes. No evidence for obstructive hydrocephalus mass or acute bleed Electronically Signed: Cody Lechuga MD at 18:10 EDT Reading Location ID and State: [facility] / [place] Tel , Service support , Treatment and Re-Evaluation :: Differential diagnosis includes however is not limited to: Hyponatremia, dehydration, intracranial mass, viral syndrome, anemia Patient appears to be in no obvious distress vital signs are stable, patient alert orient x 4. Presenting to the emergency department with complaints of weakness, low sodium, as well as headache. Patient received IV fluids, quite 125 an hour. Patient received Reglan, CT scan of the brain, urinalysis. All radiologic examinations were read, reviewed by the emergency department attending. From these reads, a plan of care will be put in place. Patient CBC shows a leukocytosis with a white blood count of 13.4, patient's hemoglobin was low at 7.6, earlier today was 8, this could be a very all lab issue. Patient's chemistries again show a lower sodium with a 123, earlier today it was 125. Patient's creatinine was worsening at 1.95, patient's BUN/creatinine ratio was 24.6, GFR 33. Alkaline phosphatase slightly elevated 139. Lipase was negative. Urinalysis was positive for infection with 4+ bacteria greater than 100 white blood cells seen, 5 and leukocytes, negative for any nitrites. However this does look to be worsening from yesterday. I did look at the urine culture, look to be gram-negative rods. Patient will be started IV Cipro secondary to the patient's allergy list of ceftriaxone, penicillin, multiple cephalosporins. Patient did receive a CT scan of the brain, this did show a persistent anterior cranial fossa mass encroaching upon the floor of the frontal lobes unchanged in size since prior exam and most likely benign. Mild atrophy and periventricular white matter ischemic changes. No evidence of any obstruction hydrocephalus mass or acute bleed. Secondary to these findings, worsening lab values, worsening UTI, patient continued to feel nauseous, I do believe the patient need to be admitted to the hospital. Patient was given IV fluids, IV Reglan, then IV Zofran. Patient also started IV cipr ofloxacin. Patient stable for admission. <Dr. Ministerio Cisneros MD - Last Filed: 04/25/24 19:40> [facility] Narrative Medical decision making narrative: I have personally performed a face to face assessment of the patient and have reviewed the DEAN Note. I performed a substantive portion of the visit including all aspects of the following. My montero findings include: History is headache for the past 5 days, vomiting for the past 3 that she states is associated with when the headache becomes severe. No loss consciousness, thunderclap, denies abrupt onset of the headache. Does not usually get these she states. No focal neurologic symptoms. Chronic diplopia since remote stroke is no different. Denies any abdominal pain just nausea/vomiting. Sodium levels have apparently been decreasing despite fluids at the senior living. Exam is NAD, relatively well-appearing maybe a little malaised, conversive and cooperative. Abdomen soft nontender nondistended normal bowel sounds are present. Lungs clear to auscultation heart is regular no tachycardia. Generally weak diffusely, nonfocal neurologic exam. Medical Decison Making gentle IV fluids, Reglan, CT head, labs, likely admission. Other additions or changes: [None] Lab Data Labs: Laboratory Results - last 24 hr 04/25/24 04/25/24 17:11 17:40 WBC 13.5 H RBC 2.41 L Hgb 7.6 L Hct 23.6 L MCV 97.9 MCH 31.5 MCHC 32.2 RDW Std Deviation 46.0 H RDW Coeff of Xin 12.8 Plt Count 344 MPV 10.0 Immature Gran % (Auto) 0.700 Neut % (Auto) 69.0 Lymph % (Auto) 18.6 L Stone % (Auto) 8.9 Eos % (Auto) 2.2 Baso % (Auto) 0.6 Absolute Neuts (auto) 9.3 H Absolute Lymphs (auto) 2.51 Nucleated RBC % 0 Sodium 123 L Potassium 4.2 Chloride 101 Carbon Dioxide 13.0 L Anion Gap 9 BUN 48 H Creatinine 1.95 H Estim Creat Clear Calc 23.84 Est GFR (MDRD) Af Amer 33 L Est GFR (MDRD) Non-Af 27 L BUN/Creatinine Ratio 24.6 H Glucose 176 H Lactic Acid 1.0 Calcium 7.8 L Total Bilirubin 0.40 AST 22 ALT 21 Alkaline Phosphatase 139 H Total Protein 7.8 Albumin 1.8 L Globulin 6.0 H Albumin/Globulin Ratio 0.3 L Lipase 34 Urine Color Yellow Urine Clarity Cloudy Urine pH 6.0 Ur Specific Carney 1.020 Urine Protein 100 H Urine Glucose (UA) Normal Urine Ketones Negative Urine Occult Blood 150 H Urine Nitrite Negative Urine Bilirubin 1 H Urine Urobilinogen 1 H Ur Leukocyte Esterase 500 H Urine RBC 0 SEEN Urine WBC >100 SEEN Ur Squamous Epith Cells 0 SEEN Urine Bacteria 4+ Urine Mucus 0 SEEN Radiography Diagnostic Testing: Clinical Impression(s) from Imaging Studies Brain CT 04/25/24 17:12 IMPRESSION: 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 Mild atrophy and periventricular white matter ischemic changes. No evidence for obstructive hydrocephalus mass or acute bleed Electronically Signed: Cody Lechuga MD at 18:10 EDT , I reviewed the CT images and the report which I agree with. Rhythm Strip Rhythm Strip: Sinus Rhythm Rate: 70 Ectopy: None EKG Initial EKG: Attestation: I personally reviewed and interpreted this EKG as follows: Interpretation: Sinus Rhythm, No Acute Injury Pattern and Non-Specific ST Changes Prior EKG tracings: available for review Prior: Unchanged Discharge Plan Dx/Rx/DC Orders Clinical Impression: Intractable nausea and vomiting, Acute UTI, Acute kidney injury, Acute hyponatremia, Weakness, Anemia in chronic illness Disposition Disposition: Acute Care Hospital [facility]
[2024-04-25 17:38] LABS: ALB/GLOB Ratio 0.3 RATIO (0.9-2.4); AST(SGOT) 22 U/L (15-37); Alanine Aminotransfer ALT/SGPT 21 U/L (13-56); Albumin, Serum 1.8 g/dL (3.2-5.0); Alkaline Phosphatase 139 U/L (45-117); Anion Gap 9 (5-15); BUN 48 mg/dL (7-18); BUN/Creat Ratio 24.6 RATIO (10-20); Calcium,Total 7.8 mg/dL (8.5-10.1); Chloride 101 mmol/L (98-107); Creatinine, Serum 1.95 mg/dL (0.55-1.02); EST Glomerular Filtration Rate 27 mL/min (>60); Est Glom Filt Rate - Afr Amer 33 mL/min (>60); Estimated Creatinine Clearance 23.84 ml/min; Glucose 176 mg/dL (74-106); Lipase 34 U/L (13-75); Potassium 4.2 mmol/L (3.5-5.1); Protein, Total 7.8 g/dL (6.4-8.2); Sodium Level 123 mmol/L (136-145)
[2024-04-25 17:44] LABS: Mucous, Urine 0 SEEN /hpf (<or=2+); Red Blood Cells-Urine 0 SEEN /hpf (0-5); Squamous Epithelial Cells - UA 0 SEEN /hpf (5-10)
[2024-04-25 17:52] LABS: Color, Urine Yellow (Yellow); Glucose, Dipstick Normal (Normal); Ketone-Dipstick Negative (Negative); Leukocyte Esterase-Dipstick 500 /ul (Negative); Nitrite-Dipstick Negative (Negative); Occult Blood-Urine 150 /ul (Negative); Protein-Dipstick 100 mg/dl (Negative); Urine Clarity Cloudy (Clear); Urine Urobilinogen 1 mg/dl (Normal)
[2024-04-25 17:56] LABS: Urine Bilirubin Dipstick 1 mg/dL (Negative)
[2024-04-25 18:15] LABS: Bacteria 4+ /hpf (None Seen); White Blood Cells >100 SEEN /hpf (0-5)
[2024-04-25] MEDS: Ondansetron 4 MG/2 ML Vial IV (18:22)
[2024-04-25 18:27] VITALS: BP 104/68; PULSE 66; RESP 16; O2SAT 95
--- NOTE | 2024-04-25 18:45 | ED.RN ---
called report to [facility]. informed that [facility]
--- NOTE | 2024-04-25 19:07 | HP.PCM.HOS_ITS ---
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 Abnormal labs low sodium Patient reported that 4 years ago she had recluse spider bites which led to amputation of 4 toes of her left foot and with eventual distal amputation of left foot. Also, she used to use a power wheelchair to get around. She has been having nausea and vomiting and lost 20+ pounds in 6 weeks. She got so weak that she could not support her body on her legs and could not use her power chair. She was admitted to [facility] because that is close to [place] where she lives. From [facility] she was then admitted to [facility] [place] with eventual transfer to [facility] for rehabilitation. Patient has had persistent nausea and vomiting. She was recently started on Zofran. Also a night before presentation she was started on muscle relaxants. Also a day before presentation she was started on Biofreeze for pain. Because of urinary retention Nguyen catheter was placed 2 to 3 weeks ago. At emergency department patient was found to have abnormal urinalysis. She reports pain at the back of her head to her back. Because of pain she been unable to sleep. She goes to the wound center where she sees Dr. Han. She has bilateral heel protectors for bedsore. [facility] Medical History Gastroparesis Acute renal insufficiency Urge incontinence Hydronephrosis Unable to ambulate Generalized weakness Non-pressure chronic ulcer of other part of right foot with fat layer exposed History of myocardial infarction History of cerebrovascular accident History of deep venous thrombosis (DVT) of distal vein of left lower extremity History of ischemic colitis Ulcer of amputation stump of foot Wound of left foot PAD (peripheral artery disease) Deep venous thrombosis of distal end of left lower extremity Type 2 diabetes mellitus with diabetic polyneuropathy Gastroesophageal reflux disease Osteoarthritis of cervical and lumbar spine Chronic diarrhea Brain tumor (benign) Diabetic foot ulcer Debility History of pneumonia Migraine Home Medications ?Medication ?Instructions ?Recorded ?Last Taken ?Type folic acid 1 mg tablet 1 mg PO DAILY supplement #30 tabs 02/15/23 04/09/23 Rx Lactobacillus rhamnosus GG 10 1 cap PO DAILY GUT HEALTH 04/10/23 04/09/23 History billion cell capsule (Culturelle) pantoprazole 40 mg tablet,delayed 40 mg PO DAILY GERD 04/10/23 02/02/24 06:00 History release acetaminophen 500 mg tablet 1,000 mg PO Q6H PRN Pain Score 1-5 04/25/24 Unknown History albuterol sulfate 90 mcg/actuation 1 puff inhalation Q4H PRN 04/25/24 Unknown History aerosol inhaler (Ventolin HFA) SHORTNESS OF BREATH camphor-menthol 0.2 %-3.5 % 1 applic topical BID 04/25/24 Unknown History topical gel (Freeze It Relief) cyclobenzaprine 5 mg tablet 5 mg PO QHS PRN muscle spasm 04/25/24 Unknown History ergocalciferol (vitamin D2) 1,250 1,250 mcg PO WE 04/25/24 Unknown History mcg (50,000 unit) capsule food supplemt, lactose-reduced 120 ml PO TID 04/25/24 Unknown History 0.04 gram-1.05 kcal/mL oral liquid (Boost Breeze Nutritional) levetiracetam 250 mg tablet 250 mg PO BID 04/25/24 Unknown History (Keppra) loperamide 2 mg capsule 2 mg PO BID 04/25/24 Unknown History melatonin 3 mg tablet 3 mg PO QHS PRN sleep 04/25/24 Unknown History ondansetron 4 mg disintegrating 4 mg PO Q6H PRN NAUSEA 04/25/24 Unknown History tablet Allergy/AdvReac Type Severity Reaction Status Date / Time cefprozil Allergy Shortness Verified 04/25/24 16:33 of breath ceftriaxone Allergy Hives Verified 04/25/24 16:33 clindamycin Allergy Rash Verified 04/25/24 16:33 enalapril Allergy Other Verified 04/25/24 16:33 enoxaparin Allergy Rash Verified 04/25/24 16:33 heparin Allergy Rash Verified 04/25/24 16:33 levalbuterol Allergy Other Verified 04/25/24 16:33 morphine Allergy Shortness Verified 04/25/24 16:33 of breath Penicillins Allergy Anaphylaxis Verified 04/25/24 16:33 valsartan Allergy Other Verified 04/25/24 16:33 vancomycin Allergy Rash Verified 04/25/24 16:33 atorvastatin AdvReac Other Verified 04/25/24 16:33 rosuvastatin (From Crestor) AdvReac Other Verified 04/25/24 16:33 Family History Mother Cancer Lung CA w/ tobacco use history. Diabetes COPD (chronic obstructive pulmonary disease) Father Cancer Lung CA w/ tobacco use history. Diabetes COPD (chronic obstructive pulmonary disease) Heart disease Surgical History Status post transmetatarsal amputation of left foot History of eye surgery History of lumpectomy History of foot surgery History of tubal ligation History of appendectomy Tubal ligation status Social History household members: none Smoking Status: Never smoker alcohol intake: never substance use type: does not use ROS ROS Narrative Pertinent positives and pertinent negatives as noted in HPI. All other systems were reviewed and are negative Vital Signs Vital Signs Vital Signs: 04/25/24 16:27 04/25/24 16:35 04/25/24 18:27 Temperature 97.0 F L Temperature Source Temporal Pulse Rate 68 66 Respiratory Rate 17 16 Respiratory Effort Normal Non-Labored Respiratory Pattern Normal Blood Pressure 106/69 104/68 Blood Pressure Mean 81 80 Pulse Ox 98 95 Oxygen Delivery Method Room Air Weight Weight: 62.7 kg Body Mass Index (BMI) 23.7 Physical Exam Narrative Physical exam: General: Well-nourished, well-developed. Head: Normocephalic, atraumatic, no tenderness Eyes: Vision is grossly intact. EOMI ENT, no trauma, moist mucous membranes, no rhinorrhea Neck: Nontender, No thyromegaly. CVS: Regular rate and rhythm. S1-S2 present. No murmur, gallop or rub. Respiratory : clear to auscultation bilaterally, chest wall nontender Abdomen: Soft, nontender, nondistended, normal bowel sounds, no masses : Deferred Back: Nontender, no CVA tenderness, no midline spinal tenderness, deformities, step-offs Extremities: Nontender full range of motion, no trauma Skin: Pallor.. Deep tendon injury at bilateral heels. Excoriation at lateral side of left foot. Amputated distal left foot. Neuro: Alert, oriented, cranial nerves II through XII grossly intact. Psychiatry: Normal mood. Normal affect. Not depressed. Not anxious. Results Lab / Micro Data 04/25/24 17:11 04/25/24 17:11 Labs: Laboratory Results - last 24 hr 04/25/24 17:11: WBC 13.5 H, RBC 2.41 L, Hgb 7.6 L, Hct 23.6 L, MCV 97.9, MCH 31.5, MCHC 32.2, RDW Std Deviation 46.0 H, RDW Coeff of Xin 12.8, Plt Count 344, MPV 10.0, Immature Gran % (Auto) 0.700, Neut % (Auto) 69.0, Lymph % (Auto) 18.6 L, [place] % (Auto) 8.9, Eos % (Auto) 2.2, Baso % (Auto) 0.6, Absolute Neuts (auto) 9.3 H, Absolute Lymphs (auto) 2.51, Nucleated RBC % 0, Sodium 123 L, Potassium 4.2, Chloride 101, Carbon Dioxide 13.0 L, Anion Gap 9, BUN 48 H, Creatinine 1.95 H, Estim Creat Clear Calc 23.84, Est GFR (MDRD) Af Amer 33 L, Est GFR (MDRD) Non-Af 27 L, BUN/Creatinine Ratio 24.6 H, Glucose 176 H, Lactic Acid 1.0, C alcium 7.8 L, Total Bilirubin 0.40, AST 22, ALT 21, Alkaline Phosphatase 139 H, Total Protein 7.8, Albumin 1.8 L, Globulin 6.0 H, Albumin/Globulin Ratio 0.3 L, Lipase 34 04/25/24 17:40: Urine Color Yellow, Urine Clarity Cloudy, Urine pH 6.0, Ur Specific [place] 1.020, Urine Protein 100 H, Urine Glucose (UA) Normal, Urine Ketones Negative, Urine Occult Blood 150 H, Urine Nitrite Negative, Urine Bilirubin 1 H, Urine Urobilinogen 1 H, Ur Leukocyte Esterase 500 H, Urine RBC 0 SEEN, Urine WBC >100 SEEN, Ur Squamous Epith Cells 0 SEEN, Urine Bacteria 4+, Urine Mucus 0 SEEN Rhythm Strip Rhythm Strip: Sinus Rhythm Rate: 70 Ectopy: None Imaging Radiology Impression Brain CT 04/25/24 17:12 IMPRESSION: 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 Mild atrophy and periventricular white matter ischemic changes. No evidence for obstructive hydrocephalus mass or acute bleed Electronically Signed: Cody Lechuga MD at 18:10 EDT , Assessment & Plan Assessment/Plan (1) Weakness: (2) Acute hyponatremia: (3) Acute kidney injury: (4) Acute UTI: (5) Intractable nausea and vomiting: (6) Gastroparesis: (7) Type 2 diabetes mellitus with foot ulcer: QUALIFIERS: Diabetes mellitus section crews activities clerk insulin use: with section crews activities clerk use Qualified Code(s): E11.621 - Type 2 diabetes mellitus with foot ulcer; L97.509 - Non-pressure chronic ulcer of other part of unspecified foot with unspecified severity; Z79.4 - transportation operations manager (current) use of insulin PLAN: Plan RED PRICE, is a is a 69-year-old female with a significant history of a recluse spider bite 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 Acute hyponatremia Likely secondary to nausea and vomiting. Patient on dextrose and normal saline fusion of the emergency department. Will change IV fluids to normal saline. Will trend sodium. Check CMP in AM. Intractable nausea and vomiting Likely secondary to gastroparesis. IV Zofran ordered. Weakness PT and OT to work with patient. Acute cystitis Change Nguyen catheter. IV ciprofloxacin start emergency department continue. Of note patient is allergic to cephalosporins DVT prophylaxis Subcu Lovenox ordered. Advance care planning: Discussed with patient and family advanced directives as well as CODE STATUS. Explained various CODE STATUS: FULL CODE, DNR CCA, DNR CCA with no intubation, and DNR CC- and what each meant. Patient elected to be a DNR CCA; with no chest compression; with no intubation. Order was placed. Her medical power of deputy county attorney is a daughter Prabha Welch. Time spent on discussion 16 minutes. Time spent in the patient's overall evaluation,decision-making process, review of diagnostic data, adjustment of management, discussion with other providers, nursing and ancillary staff involved in patient's care documentation, 70 minutes. Charges/Coding Visit Charges Inpatient E&M: 89333 Init Hosp L3
[2024-04-25] MEDS: Ciprofloxacin 400 MG/200 ML BAG 200 MG IV (19:15)
[2024-04-25 19:18] VITALS: BP 90/71; PULSE 65; RESP 17; TEMP 36.4; O2SAT 95
[2024-04-25 19:20] VITALS: BP 90/71; PULSE 65; RESP 17; TEMP 36.4; O2SAT 95
[2024-04-25 20:00] VITALS: BP 102/69; PULSE 64; RESP 21; TEMP 36.3; O2SAT 97
--- NOTE | 2024-04-25 20:01 | PCM.HP.BLA ---
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 Patient reported that 4 years ago she had recluse spider bites which led to amputation of 4 toes of her left foot and with eventual distal amputation of left foot. Also, she used to use a power wheelchair to get around. She has been having nausea and vomiting and lost 20+ pounds in 6 weeks. She got so weak that she could not support her body on her legs and could not use her power chair. She was admitted to [facility] because that is close to [place] where she lives. From [facility] she was then admitted to [facility] with eventual transfer to [facility] for rehabilitation. Patient has had persistent nausea and vomiting. She was recently started on Zofran. Also a night before presentation she was started on muscle relaxants. Also a day before presentation she was started on Biofreeze for pain. Because of urinary retention Nguyen catheter was placed 2 to 3 weeks ago. At emergency department patient was found to have abnormal urinalysis. She reports pain at the back of her head to her back. Because of pain she been unable to sleep. She will go to the wound center where she sees Dr. Han. She has bilateral heel protectors for bedsore.
[2024-04-25 21:04] VITALS: BMI 19.7
[2024-04-25 21:55] VITALS: BP 106/75; PULSE 66; RESP 18; TEMP 36.4; O2SAT 100
[2024-04-25] MEDS: 0.9% Normal Saline (1000mL) 1,000 ML 75 ML IV (21:56)
[2024-04-25] MEDS: Loperamide 2 MG Capsule PO (21:57)
[2024-04-25] MEDS: levETIRAcetam 250 MG Tablet PO (21:57)
[2024-04-25 22:13] LABS: Uric Acid 7.8 mg/dL (2.6-6.0)
[2024-04-25 22:46] LABS: Osmolality, Urine 297 mOsm/KG
[2024-04-25 22:46] LABS: Osmolality, Serum 282 mOsm/KG (280-301)
[2024-04-25] MEDS: cycloBENZAPRine HCl 5 MG TABLET PO (23:09)
[2024-04-26 04:23] VITALS: BP 117/82; PULSE 65; RESP 18; TEMP 36.5; O2SAT 97
[2024-04-26 05:54] LABS: Absolute Lymphocyte Count 2.36 X10^3/uL (0.83-4.51); Absolute Neutrophil Count 8.2 X10^3/uL (2.0-7.7); Basophil# 0.08 X10^3/uL; Basophil% 0.7 % (0-1); Eosinophil# 0.37 X10^3/uL; Hematocrit 22.9 % (37-47); Hemoglobin 7.6 g/dL (12.0-15.0); Lymphocyte # 2.36 X10^3/ul (0.83-4.51); Lymphocyte % 19.3 % (19-41); Mean Corp Hgb Conc 33.2 g/dL (32-36); Mean Corpuscular Hgb 31.8 pg (27.0-32.0); Mean Corpuscular Volume 95.8 fL (81-99); Mean Platelet Vol. 10.4 fl (6.2-12.0); Monocyte# 1.09 X10^3/uL; Monocyte% 8.9 % (0-10); NRBC Flagged by Analyzer 0 % (0-5); Neutrophil # 8.24 X10^3/uL (2.7-7.7); Neutrophil % 67.4 % (47-70); Platelet Count 322 K/mm3 (150-450); RBC Distribution Width CV 12.8 % (11.6-14.6); RBC Distribution Width SD 44.4 fl (35.1-43.9); Red Blood Count 2.39 M/mm3 (4.2-5.4); White Blood Count 12.2 K/mm3 (4.4-11.0)
[2024-04-26] MEDS: 0.9% Saline Lock 10 ML Syringe IV ×3 (06:12→17:37)
[2024-04-26 06:36] LABS: ALB/GLOB Ratio 0.3 RATIO (0.9-2.4); AST(SGOT) 20 U/L (15-37); Alanine Aminotransfer ALT/SGPT 22 U/L (13-56); Albumin, Serum 1.8 g/dL (3.2-5.0); Alkaline Phosphatase 138 U/L (45-117); Anion Gap 13 (5-15); BUN 49 mg/dL (7-18); BUN/Creat Ratio 27.5 RATIO (10-20); Calcium,Total 7.8 mg/dL (8.5-10.1); Chloride 102 mmol/L (98-107); Creatinine, Serum 1.78 mg/dL (0.55-1.02); EST Glomerular Filtration Rate 30 mL/min (>60); Est Glom Filt Rate - Afr Amer 36 mL/min (>60); Estimated Creatinine Clearance 24.91 ml/min; Globulin 5.6 g/dL (2.2-4.2); Glucose 102 mg/dL (74-106); Potassium 4.4 mmol/L (3.5-5.1); Protein, Total 7.4 g/dL (6.4-8.2); Sodium Level 126 mmol/L (136-145); Thyroid Stim Hormone (TSH) 4.31 uIU/mL (0.358-3.74)
--- NOTE | 2024-04-26 08:02 | PCM.PN.HOSP ---
Reason for Visit Reason for Visit: Diagnoses Type 2 diabetes mellitus with foot ulcer (04/25/24) Hypo-osmolality and hyponatremia (04/25/24) Gastroparesis (04/25/24) Non-pressure chronic ulcer of other part of unspecified foot with unspecified severity (04/25/24) Acute kidney failure, unspecified (04/25/24) Urinary tract infection, site not specified (04/25/24) Nausea with vomiting, unspecified (04/25/24) Weakness (04/25/24) custodial (current) use of insulin (04/25/24) Subjective Subjective Feels ok. Objective Data Objective Data Vital Signs: Vital Signs Temp Pulse Resp BP Pulse Ox O2 Del Method 36.5 C L 65 18 117/82 H 97 Room Air 04/26/24 04:23 04/26/24 04:23 04/26/24 04:23 04/26/24 04:23 04/26/24 04:23 04/26/24 04:24 Oxygen Delivery Method Room Air Weight: 52.163 kg Body Mass Index (BMI) 19.7 Intake & Output: Intake and Output for Last 24 Hours 04/24/24 04/25/24 04/26/24 23:59 23:59 23:59 Intake Total 804.17 / 804.17 Output Total 250 / 250 150 / 150 Balance 554.17 / 554.17 -150 / -150 Lab / Micro Data 04/26/24 05:20 04/26/24 05:20 Labs: Laboratory Results - last 24 hr 04/25/24 17:11: WBC 13.5 H, RBC 2.41 L, Hgb 7.6 L, Hct 23.6 L, MCV 97.9, MCH 31.5, MCHC 32.2, RDW Std Deviation 46.0 H, RDW Coeff of Xin 12.8, Plt Count 344, MPV 10.0, Immature Gran % (Auto) 0.700, Neut % (Auto) 69.0, Lymph % (Auto) 18.6 L, [place] % (Auto) 8.9, Eos % (Auto) 2.2, Baso % (Auto) 0.6, Absolute Neuts (auto) 9.3 H, Absolute Lymphs (auto) 2.51, Nucleated RBC % 0, Sodium 123 L, Potassium 4.2, Chloride 101, Carbon Dioxide 13.0 L, Anion Gap 9, BUN 48 H, Creatinine 1.95 H, Estim Creat Clear Calc 23.84, Est GFR (MDRD) Af Amer 33 L, Est GFR (MDRD) Non-Af 27 L, BUN/Creatinine Ratio 24.6 H, Glucose 176 H, Lactic Acid 1.0, Uric Acid 7.8 H, Calcium 7.8 L, Total Bilirubin 0.40, AST 22, ALT 21, Alkaline Phosphatase 139 H, Total Protein 7.8, Albumin 1.8 L, Globulin 6.0 H, Albumin/Globulin Ratio 0.3 L, Lipase 34 04/25/24 17:40: Urine Color Yellow, Urine Clarity Cloudy, Urine pH 6.0, Ur Specific [place] 1.020, Urine Protein 100 H, Urine Glucose (UA) Normal, Urine Ketones Negative, Urine Occult Blood 150 H, Urine Nitrite Negative, Urine Bilirubin 1 H, Urine Urobilinogen 1 H, Ur Leukocyte Esterase 500 H, Urine RBC 0 SEEN, Urine WBC >100 SEEN, Ur Squamous Epith Cells 0 SEEN, Urine Bacteria 4+, Urine Mucus 0 SEEN, Urine Osmolality 297 04/25/24 21:46: Serum Osmolality 282 04/26/24 05:20: WBC 12.2 H, RBC 2.39 L, Hgb 7.6 L, Hct 22.9 L, MCV 95.8, MCH 31.8, MCHC 33.2, RDW Std Deviation 44.4 H, RDW Coeff of Xin 12.8, Plt Count 322, MPV 10.4, Immature Gran % (Auto) 0.700, Neut % (Auto) 67.4, Lymph % (Auto) 19.3, [place] % (Auto) 8.9, Eos % (Auto) 3.0, Baso % (Auto) 0.7, Absolute Neuts (auto) 8.2 H, Absolute Lymphs (auto) 2.36, Nucleated RBC % 0, Sodium 126 L, Potassium 4.4, Chloride 102, Carbon Dioxide 11.0 L, Anion Gap 13, BUN 49 H, Creatinine 1.78 H, Estim Creat Clear Calc 24.91, Est GFR (MDRD) Af Amer 36 L, Est GFR (MDRD) Non-Af 30 L, BUN/Creatinine Ratio 27.5 H, Glucose 102, Calcium 7.8 L, Total Bilirubin 0.40, AST 20, ALT 22, Alkaline Phosphatase 138 H, Total Protein 7.4, Albumin 1.8 L, Globulin 5.6 H, Albumin/Globulin Ratio 0.3 L, TSH 4.31 H, Cortisol 18.80 Radiography Diagnostic Testing: Radiology Impression Brain CT 04/25/24 17:12 IMPRESSION: 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 Mild atrophy and periventricular white matter ischemic changes. No evidence for obstructive hydrocephalus mass or acute bleed Electronically Signed: Cody Lechuga MD at 18:10 EDT Reading Location ID and State: [facility] / [place] Tel , Service support , Rhythm Strip Rhythm Strip: Sinus Rhythm Rate: 70 Ectopy: None Physical Exam Const alert and no apparent distress HEENT head/scalp atraumatic and moist oral mucous membranes Cardio regular rate, regular rhythm, S1 normal heart sound and S2 normal heart sound GI normal to inspection, nondistended, normoactive bowel sounds, soft to palpation, non-tender and non-distended Extremity normal to inspection Assessment & Plan Assessment/Plan (1) Weakness: (2) Acute hyponatremia: (3) Acute kidney injury: (4) Acute UTI: (5) Intractable nausea and vomiting: (6) Gastroparesis: (7) Type 2 diabetes mellitus with foot ulcer: QUALIFIERS: Diabetes mellitus [facility] insulin use: with religious activities director use Qualified Code(s): E11.621 - Type 2 diabetes mellitus with foot ulcer; L97.509 - Non-pressure chronic ulcer of other part of unspecified foot with unspecified severity; Z79.4 - teaching pastor (current) use of insulin PLAN: Plan Acute hyponatremia Improving. Likely secondary to nausea and vomiting. Patient on dextrose and normal saline fusion of the emergency department. Continue saline. TSH 4.3 and cortisol 18.8 Intractable nausea and vomiting Improving Likely secondary to gastroenteritis IV Zofran ordered. Debility PT OT eval and treat CAUTI catheter changed Cipro DVT prophylaxis: enoxaparin Code status: DNRCCA, DNI. Charges/Coding Visit Charges Inpatient E&M: 71743 Subs Hosp L2
--- NOTE | 2024-04-26 08:14 | CASEMGMT ---
Addendum entered by Mariana Radford 04/26/24 12:15: Social Work- Updated HCPOA received from [facility] and placed on pt chart. Prabha, dtr, is primary agent with son, Crescencio, as secondary agent and sister, Shane, on as third agent. LETY Ramirez Addendum entered by Mariana Radford 04/26/24 10:43: Social Work- Pt notes that she updates her HCPOA recently at [facility] to daughter, Prabha, and Crescencio, son, due to sister Shane having health issues. SW to reach out to [facility] to request a copy. LETY Ramirez Original Note: Social Work- Pt has HCPOA in chart naming Shane, sister, as agent. LETY Ramirez
[2024-04-26] MEDS: levETIRAcetam 250 MG Tablet PO ×2 (09:35→21:56)
[2024-04-26] MEDS: Lactobacillis Acidophilus 1 CAP PO (09:35)
[2024-04-26] MEDS: Loperamide 2 MG Capsule PO ×2 (09:35→21:56)
[2024-04-26] MEDS: Folic Acid 1 MG Tablet PO (09:35)
[2024-04-26] MEDS: Pantoprazole Sodium 40 MG Tablet PO (09:35)
[2024-04-26 09:40] VITALS: BP 103/65; PULSE 70; RESP 16; TEMP 36.6; O2SAT 96
[2024-04-26 10:00] VITALS: BP 103/65; PULSE 70; RESP 16; TEMP 36.6; O2SAT 96
[2024-04-26] MEDS: Ciprofloxacin 400 MG/200 ML BAG 200 MG IV (10:01)
[2024-04-26] MEDS: 0.9% Normal Saline (1000mL) 1,000 ML 75 ML IV (10:02)
[2024-04-26] MEDS: MENTHOL 226.8 GM JAR 1 APPLIC TOPICAL ×2 (10:02→21:56)
--- NOTE | 2024-04-26 10:23 | CASEMGMT ---
Social Work- SW met with pt to complete SDOH assessment. Pt was laying in bed; agreeable to meeting. Pt reports that she was 43 years to her first who has been for 6 years. Pt remarried and that left her and sought dissolution when pt became disabled from spider bite. Since that time, pt has has increasing struggles with financial well-being. Pt reports that she has been at [facility] for 1.5 weeks and plans to only stay until rehab is complete. Pt is not interested in AL or permanent placement at [facility]. Pt plans to return to her apartment in [place] as soon as able. Pt reports that her rent is $860 and her income is $1500. Pt reports that she also owns a home in [place], but cannot reside there d/t lack of accessibility. Pt reports that she has spoken with [facility] about assisting with home modifications and they were agreeable to completing modifications if I can become independent to live there. Pt states that since her stroke in October until admittance to [facility], pt son and family was living with pt to assist with care. Pt states that since her stroke, she has been unable to use power chair and act independently. Pt reports that her daughters Prabha and Cady also came to help Monday, Monday, and . Pt reports that she did not have any outside assistance in the home apart from family. Pt reports that she does not have a medical alert d/t cost. Pt does receive Meals on Wheels, 2 boxes of food from [employer], and receives food stamps. Pt has received utility assistance from [facility] to pay entire water bill for the year and also for transportation. Pt states she would like her contacts changed to Prabha, daughter, and Crescencio, son, from sister, Jackie d/t sister having health issues as well. Pt also reports that she had her HCPOA changed to Prabha, daughter, and Crescencio, son, at [facility]. SW to provide resources as noted on SDOH; [employer] card, transport, food, utilities. SW to update records to reflect changes in contacts, HCPOA as well. LETY Ramirez
--- NOTE | 2024-04-26 10:42 | CASEMGMT ---
Discharge Planning Updates sent to [facility]. Requested wknd phone/fax for report. Tami Fall DC Planning Asst.
--- NOTE | 2024-04-26 11:27 | CASEMGMT ---
Social Work- SW met with pt to discuss preferences at discharge. Pt preference is to return to [facility] to complete rehab. DCA advised. Plan; [facility], LETY Corbin
[2024-04-26] MEDS: Acetaminophen 500 MG Tablet 1000 MG PO (13:41)
--- NOTE | 2024-04-26 14:37 | ST.MBS ---
Modified Barium Swallow Patient Information Study Date: 04/26/24 Study Time: 14:00 Direct Billable Minutes: 74 Total Minutes procedure & reportin Diagnosis: GERD K21.9; Malnutrition E46 Referring Physician: Aneesh Kingsley Reason for Referral: Objectively assess swallow function, assess risk for aspiration, and determine recommendations for least restrictive diet textures and compensatory strategies to improve safety of swallow. 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 Pt resides in residential for rehab. She presented to [facility] 04/25/24 with progressively worsening abnormal labs (low sodium). Pt also reported she has been having nausea and vomiting and lost 20+ pounds in 6 weeks, treated with Zofran. She got so weak that she could not support her body on her legs and could not use her power chair. In ED 04/25/24, abnormal urinalysis. She was admitted for management of UTI and hyponatremia amongst other comorbidities. Pt referred for ST consult due to difficulty swallowing. 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 Hx of dysphagia therapy at [facility] 02/03/24-02/15/24 for management of oral and esophageal dysphagia with minced and moist textures / thin liquids with aspiration and reflux precautions. PMH: Gastroparesis, Acute renal insufficiency, Urge incontinence, Hydronephrosis, Unable to ambulate, Generalized weakness, Non-pressure chronic ulcer of other part of right foot with fat layer exposed, History of [place], History of CVA, Hx of DVT, History of ischemic colitis, Ulcer of amputation stump of foot, Wound of left foot, PAD, Type 2 DM w/ diabetic polyneuropathy, GERD, Osteoarthritis of cervical and lumbar spine, Chronic diarrhea, Brain tumor (benign), Diabetic foot ulcer, Debility, Hx of PNA, Migraine. Current Diet Ordered: Easy to Chew textures / Thin liquids Dentition: Edentulous Mental Status: Impaired (Confusion during stay - did not impact evaluation) Respiratory Status: Oxygenating on Room Air Penetration-Aspiration Scale Penetration-Aspiration Scale: OBJECTIVE ASSESSMENT OF SWALLOW FUNCTION (QUANTITATIVE ? PER TRIAL): PENETRATION / ASPIRATION SCALE ([place]): 1 = does not enter airway 2 = enters airway/above vocal folds/ejected 3 = enters airway/above vocal folds/not ejected 4 = enters airway/contacts vocal folds/ejected 5 = enters airway/contacts vocal folds/not ejected 6 = enters airway/below vocal folds/ejected 7 = enters airway/below vocal folds/not ejected despite effort 8 = enters airway/below vocal folds/no effort VIDEOFLOROSCOPIC SCALE SCORE ([place]): Grade I = aspiration of material that has penetrated into the laryngeal vestibule, intact cough reflex Grade II = aspiration < 10 % of the bolus, intact cough reflex Grade III = aspiration of < 10 % of the bolus, reduced cough reflex or aspiration of > 10 % of the bolus, intact cough reflex Grade IV = aspiration of > 10 % of the bolus, reduced cough reflex Penetration-Aspiration Scale Score Thin Liquid via teaspoon: Result: 1= does not enter airway Thin Liquid via teaspoon Trial 2: Result: 1= does not enter airway Thin Liquid via sequential sips: cup: Result: 2= enter airway/above vocal folds/ejected [place] Thick Liquid via large single sip: cup: Result: 1= does not enter airway Pudding via teaspoon: Result: 1= does not enter airway Comment: Esophageal screen - Mild retention of pudding in upper esophagus. Retention of pudding throughout the mid and lower esophagus with retrograde flow remaining below the UES. Thin Liquid via single sip: straw: Result: 1= does not enter airway Comment: Esophageal screen - Continued retention of barium throughout the mid and lower esophagus with retrograde flow remaining below the UES. 1/4 Cookie coated in barium: Result: 1= does not enter airway Comment: Cued chin tuck after the swallow in attempt to clear pharyngeal residue - not effective. Oral Phase Labial Seal: Escape beyond mid-chin (MEDICAL ANTHROPOLOGY DIRECTOR feeding pt thin by tsp) Tongue Control During Bolus Hold: Posterior escape of less than half of bolus Bolus Preparation/Mastication: Disorganized chewing/mashing with solid pieces of bolus unchewed Bolus Transport/Lingual Motion: Repetitive/disorganized tongue motion Oral Residue: Majority of bolus remaining (piecemeal deglutition) Pharyngeal Phase Initiation of Pharyngeal Swallow: Bolus head at posterior laryngeal surgace of epiglottis Soft Palate Elevation: Trace column of contrast/air between soft palate and pharyngeal wall Laryngeal Elevation: Comp. Superior move thyroid cart w/comp. apprx arytenoid cart-epig pet Anterior Hyoid Excursion: Partial anterior movement Epiglottic Movement: Complete inversion Laryngeal Vestibule Closure at Height of Swallow: Incomplete; narrow column of air/contrast in laryngeal vestibule Pharyngeal Stripping Wave: Present - diminished Pharyngoesophageal Segment Opening: Parital distension and partial duration; parital obstruction of flow Tongue Base Retraction: Wide column of contrast between tongue base & post. pharyngeal wall Pharyngeal Residue: Collection of residue within or on pharyngeal structures Esophageal Phase Esophageal Clearance: Esophageal retention w/ retrograde flow below pharyngoesophageal seg. Treatment Strategies Effects of treatment strategies attemped:: Liquid wash - somewhat effective. Chin tuck - not effective. Diagnosis/Impression Diagnosis: Mild-moderate oropharyngeal dysphagia R13.12; Esophageal dysphagia R13.14 Impression: The oral phase is primarily marked by... -Decreased bolus control with <1/2 of the bolus spilling posteriorly to the posterior surface of the epiglottis prior to swallow onset observed with sequential sips of thin liquids. -Impaired A-P transport characterized by disorganized tongue motion. -Piecemeal deglutition most notable with pudding and cookie. -Very prolonged and incomplete mastication of cookie. The pharyngeal phase is primarily marked by... -Decreased tongue base retraction, UES opening/duration, and pharyngeal stripping wave with resulting mild-moderate pharyngeal residue most notable with pudding and cookie. -Overall, good airway closure during the swallow. Trace laryngeal penetration with full ejection with thin liquids via sequential cup. No aspiration observed. The esophageal phase is primarily marked by... -Mild retention of pudding in the upper esophagus. Esophageal retention of pudding throughout the mid and lower esophagus with retrograde flow remaining below UES. Liquid wash did not effectively clear esophageal retention. 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s Diet: Regular Textures (Easy to Chew textures - IDDSI Level 7) and Thin Liquids Comment: Assist patient in cutting foods as needed; STOP eating/drinking if increased s/s of reflux, sensation of retention, or regurgitation and resume at a later time. Compensatory Strategies: Small Bites, Small Sips, Slow Rate, Alternate bites/solids and sips/liquids, Sitting upright and Remain sitting upright for 30 minutes after PO intake Supervision: Distant Supervision Recommend Repeat Modified Barium Swallow: TBD Need for Skilled Speech Therapy Services: Yes Comment: -Train the patient in use of strategies to decrease risk for aspiration and reflux aspiration. -Ongoing assessment of diet tolerance of recommended textures. -Train the patient in oropharyngeal exercise program (Jes, Effortful, Michael, lingual resistance). Recommended Referrals: GI Consult (Of note, patient sees Dr. Melissa every 3 months with next appt 05/21; however, patient reports 6 days of vomiting. MEDICAL ANTHROPOLOGY DIRECTOR recommends inpatient GI consult.) Education Completed: 1. Described result of evaluation., 2. Pt understands evaluation & agrees with goals and treatment plan. and 7. Pt requires further education on strategies & risks. Comment: MEDICAL ANTHROPOLOGY DIRECTOR called RNPoppy, and reviewed results and recommendations of MBSS. Status Active ST Patient: Active Contact Information [facility] Speech Therapy:: Pamela Odom M.A. [facility]-MEDICAL ANTHROPOLOGY DIRECTOR? Speech-Language Pathologist?? [facility] [address] [place] [address]? [email or web address]?? [phone]
--- NOTE | 2024-04-26 15:40 | CHAPLAIN ---
Type of Pastoral Visit _x__ Initial Visit ___ Follow-up Visit ___ On-call Visit ___ General Patient Visit ___ Spiritual Assessment ___ Family Conference ___ Bereavement ___ Rapid Response ___ Code Blue ___ Other (describe below) Pastoral Care Referral From _x__ Patient ___ Family ___ Nurse ___ Physician ___ Sap Functional Analyst ___ Ip Technology Transactions Attorney ___ Other (describe below) Sacrament/Intervention _x__ Active listening ___ Anointing ___ Rastafarian ___ Bereavement ___ Communion ___ Dang exploration ___ ___ Life review ___ Prayer ___ Reconciliation ___ Sacrament of Sick ___ Supportive presence ___ Wedding ___ Other (describe below) Pastoral Comments 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
[2024-04-26] MEDS: Alteplase 2 MG/2 ML Vial IV (15:46)
[2024-04-26 16:50] LABS: Bedside Glucose 112 mg/dL (74-106)
[2024-04-26 17:02] VITALS: BP 83/60; PULSE 64; RESP 16; TEMP 36.4; O2SAT 95
[2024-04-26] MEDS: Ondansetron 4 MG/2 ML Vial IV (17:06)
--- NOTE | 2024-04-26 17:38 | NURSING ---
Unable to obtain a blood return from picc line. Cath ilene instilled with dwell time of 120 minutes due to no blood return at 30 minutes. Blood return noted, 10cc of blood wasted and line flushed.
[2024-04-26 18:08] VITALS: BP 101/76; PULSE 66; RESP 16; TEMP 36.4; O2SAT 98
[2024-04-26 18:10] VITALS: BP 101/76; PULSE 65; RESP 16; TEMP 36.4; O2SAT 98
[2024-04-27] VITALS (8 sets, daily range): BP systolic 97–110; BP diastolic 45–87; PULSE 58–73; RESP 14–18; TEMP 36.1–37; O2SAT 97–100
[2024-04-27] MEDS: 0.9% Normal Saline (1000mL) 1,000 ML 75 ML IV ×2 (02:30→16:05)
[2024-04-27 06:59] LABS: Absolute Lymphocyte Count 1.83 X10^3/uL (0.83-4.51); Absolute Neutrophil Count 9.1 X10^3/uL (2.0-7.7); Basophil% 0.8 % (0-1); Eosinophil# 0.25 X10^3/uL; Hemoglobin 7.6 g/dL (12.0-15.0); Lymphocyte # 1.83 X10^3/ul (0.83-4.51); Lymphocyte % 14.9 % (19-41); Mean Corpuscular Hgb 31.8 pg (27.0-32.0); Mean Corpuscular Volume 96.2 fL (81-99); Monocyte# 0.96 X10^3/uL; Monocyte% 7.8 % (0-10); NRBC Flagged by Analyzer 0 % (0-5); Neutrophil # 9.08 X10^3/uL (2.7-7.7); Platelet Count 326 K/mm3 (150-450); RBC Distribution Width CV 12.8 % (11.6-14.6); RBC Distribution Width SD 44.9 fl (35.1-43.9); Red Blood Count 2.39 M/mm3 (4.2-5.4); White Blood Count 12.3 K/mm3 (4.4-11.0)
[2024-04-27 07:33] LABS: Anion Gap 10 (5-15); BUN 50 mg/dL (7-18); BUN/Creat Ratio 27.3 RATIO (10-20); Calcium,Total 7.7 mg/dL (8.5-10.1); Chloride 105 mmol/L (98-107); Creatinine, Serum 1.83 mg/dL (0.55-1.02); EST Glomerular Filtration Rate 29 mL/min (>60); Est Glom Filt Rate - Afr Amer 35 mL/min (>60); Estimated Creatinine Clearance 24.23 ml/min; Glucose 90 mg/dL (74-106); Potassium 4.5 mmol/L (3.5-5.1); Sodium Level 125 mmol/L (136-145)
--- NOTE | 2024-04-27 08:29 | PN.HOSP_ITS ---
Reason for Visit Reason for Visit: Diagnoses Type 2 diabetes mellitus with foot ulcer (04/25/24) Hypo-osmolality and hyponatremia (04/25/24) Gastroparesis (04/25/24) Non-pressure chronic ulcer of other part of unspecified foot with unspecified severity (04/25/24) Acute kidney failure, unspecified (04/25/24) Urinary tract infection, site not specified (04/25/24) Nausea with vomiting, unspecified (04/25/24) Weakness (04/25/24) [facility] (current) use of insulin (04/25/24) Subjective Subjective Complains of pain in her back and neck since being changed her air mattress at the residential. Objective Data Objective Data Vital Signs: Vital Signs Temp Pulse Resp BP Pulse Ox O2 Del Method 36.3 C L 70 16 97/62 98 Room Air 04/27/24 01:31 04/27/24 01:31 04/27/24 01:04/27/24 01:04/27/24 01:04/27/24 04:54 Oxygen Delivery Method Room Air Weight: 52.163 kg Body Mass Index (BMI) 19.7 Intake & Output: Intake and Output for Last 24 Hours 04/25/24 04/26/24 04/27/24 23:59 23:59 23:59 Intake Total 804.17 / 804.17 1907.50 / 1907.50 712.5 / 712.5 Output Total 250 / 250 550 / 550 250 / 250 Balance 554.17 / 554.17 1357.50 / 1357.50 462.5 / 462.5 Lab / Micro Data 04/27/24 06:25 04/27/24 06:25 Labs: Laboratory Results - last 24 hr 04/26/24 16:31: POC Glucose 112 H 04/27/24 06:25: WBC 12.3 H, RBC 2.39 L, Hgb 7.6 L, Hct 23.0 L, MCV 96.2, MCH 31.8, MCHC 33.0, RDW Std Deviation 44.9 H, RDW Coeff of Xin 12.8, Plt Count 326, MPV 10.0, Immature Gran % (Auto) 0.500, Neut % (Auto) 74.0 H, Lymph % (Auto) 14.9 L, [place] % (Auto) 7.8, Eos % (Auto) 2.0, Baso % (Auto) 0.8, Absolute Neuts (auto) 9.1 H, Absolute Lymphs (auto) 1.83, Nucleated RBC % 0, Sodium 125 L, Potassium 4.5, Chloride 105, Carbon Dioxide 10.0 L, Anion Gap 10, BUN 50 H, C reatinine 1.83 H, Estim Creat Clear Calc 24.23, Est GFR (MDRD) Af Amer 35 L, Est GFR (MDRD) Non-Af 29 L, BUN/Creatinine Ratio 27.3 H, Glucose 90, Calcium 7.7 L Micro: Microbiology 04/25/24 18:31 Urine Catheter - Nguyen Urine Culture - Preliminary GNR lactose setter molding and coremaking machines Gram negative bakari Rhythm Strip Rhythm Strip: Sinus Rhythm Rate: 70 Ectopy: None Physical Exam Const alert and no apparent distress HEENT head/scalp atraumatic Neck Neck Narrative: Tender to palpation of the trapezius muscle on the left. Resp normal respiratory effort, no retractions, no use of accessory muscles and clear to auscultation bilaterally Cardio regular rate, regular rhythm, S1 normal heart sound and S2 normal heart sound GI normal to inspection, nondistended, normoactive bowel sounds, soft to palpation, non-tender and non-distended Neuro Sensorium / Orientation: awake and alert Assessment & Plan Assessment/Plan (1) Weakness: (2) Acute hyponatremia: (3) Acute kidney injury: (4) Acute UTI: (5) Intractable nausea and vomiting: (6) Gastroparesis: (7) Type 2 diabetes mellitus with foot ulcer: QUALIFIERS: Diabetes mellitus correction insulin use: with courier driver use Qualified Code(s): E11.621 - Type 2 diabetes mellitus with foot ulcer; L97.509 - Non-pressure chronic ulcer of other part of unspecified foot with unspecified severity; Z79.4 - childcare provider (current) use of insulin PLAN: Plan Acute hyponatremia * Stable * Likely secondary to nausea and vomiting. * Patient on dextrose and normal saline fusion of the emergency department. * Continue saline. * TSH 4.3 and cortisol 18.8 Intractable nausea and vomiting * Improving * Likely secondary to gastroenteritis * IV Zofran ordered. Debility * PT OT eval and treat CAUTI * catheter changed * Cipro * UCx showing GNR. DVT prophylaxis: enoxaparin Code status: DNRCCA, DNI. Dispo: to [facility] pending final urine culture results. Charges/Coding Visit Charges Inpatient E&M: 45352 Subs Hosp L2
[2024-04-27] MEDS: Ciprofloxacin 400 MG/200 ML BAG 200 MG IV (10:48)
[2024-04-27] MEDS: Loperamide 2 MG Capsule PO ×2 (10:49→21:13)
[2024-04-27] MEDS: Pantoprazole Sodium 40 MG Tablet PO (10:49)
[2024-04-27] MEDS: levETIRAcetam 250 MG Tablet PO ×2 (10:49→21:12)
[2024-04-27] MEDS: Acetaminophen 500 MG Tablet 1000 MG PO (10:49)
[2024-04-27] MEDS: Folic Acid 1 MG Tablet PO (10:50)
[2024-04-27] MEDS: Lactobacillis Acidophilus 1 CAP PO (10:50)
[2024-04-27] MEDS: MENTHOL 226.8 GM JAR 1 APPLIC TOPICAL (10:50)
[2024-04-27] MEDS: cycloBENZAPRine HCl 5 MG TABLET PO (21:13)
[2024-04-28] MEDS: 0.9% Normal Saline (1000mL) 1,000 ML 75 ML IV (03:43)
[2024-04-28 03:50] VITALS: BP 124/60; PULSE 62; RESP 18; TEMP 36.1; O2SAT 99
[2024-04-28 05:02] LABS: Absolute Lymphocyte Count 1.68 X10^3/uL (0.83-4.51); Absolute Neutrophil Count 12.3 X10^3/uL (2.0-7.7); Basophil# 0.08 X10^3/uL; Basophil% 0.5 % (0-1); Eosinophil# 0.45 X10^3/uL; Eosinophils% 2.8 % (0-5); Hematocrit 22.5 % (37-47); Hemoglobin 7.3 g/dL (12.0-15.0); Lymphocyte # 1.68 X10^3/ul (0.83-4.51); Lymphocyte % 10.6 % (19-41); Mean Corp Hgb Conc 32.4 g/dL (32-36); Mean Corpuscular Hgb 31.1 pg (27.0-32.0); Mean Corpuscular Volume 95.7 fL (81-99); Mean Platelet Vol. 9.7 fl (6.2-12.0); Monocyte# 1.16 X10^3/uL; Monocyte% 7.3 % (0-10); NRBC Flagged by Analyzer 0 % (0-5); Neutrophil # 12.32 X10^3/uL (2.7-7.7); Neutrophil % 78.1 % (47-70); Platelet Count 338 K/mm3 (150-450); RBC Distribution Width SD 45.1 fl (35.1-43.9); Red Blood Count 2.35 M/mm3 (4.2-5.4); White Blood Count 15.8 K/mm3 (4.4-11.0)
[2024-04-28 05:37] LABS: Anion Gap 13 (5-15); BUN 47 mg/dL (7-18); BUN/Creat Ratio 28.5 RATIO (10-20); Calcium,Total 7.6 mg/dL (8.5-10.1); Chloride 103 mmol/L (98-107); Creatinine, Serum 1.65 mg/dL (0.55-1.02); EST Glomerular Filtration Rate 33 mL/min (>60); Est Glom Filt Rate - Afr Amer 40 mL/min (>60); Estimated Creatinine Clearance 26.87 ml/min; Glucose 104 mg/dL (74-106); Potassium 4.2 mmol/L (3.5-5.1); Sodium Level 126 mmol/L (136-145)
--- NOTE | 2024-04-28 09:39 | PN.HOSP_ITS ---
Reason for Visit Reason for Visit: Diagnoses Type 2 diabetes mellitus with foot ulcer (04/25/24) Hypo-osmolality and hyponatremia (04/25/24) Gastroparesis (04/25/24) Non-pressure chronic ulcer of other part of unspecified foot with unspecified severity (04/25/24) Acute kidney failure, unspecified (04/25/24) Urinary tract infection, site not specified (04/25/24) Nausea with vomiting, unspecified (04/25/24) Weakness (04/25/24) [facility] (current) use of insulin (04/25/24) Subjective Subjective Feels well. No events. Objective Data Objective Data Vital Signs: Vital Signs Temp Pulse Resp BP Pulse Ox O2 Del Method 36.1 C L 62 18 124/60 H 99 Room Air 04/28/24 03:50 04/28/24 03:50 04/28/24 03:50 04/28/24 03:50 04/28/24 03:50 04/28/24 03:50 Oxygen Delivery Method Room Air Weight: 52.163 kg Body Mass Index (BMI) 19.7 Intake & Output: Intake and Output for Last 24 Hours 04/26/24 04/27/24 04/28/24 23:59 23:59 23:59 Intake Total 1907.50 / 1907.50 2752.5 / 2902.5 1022.5 / 1022.5 Output Total 550 / 550 425 / 725 550 / 550 Balance 1357.50 / 1357.50 2327.5 / 2177.5 472.5 / 472.5 Lab / Micro Data 04/28/24 04:20 04/28/24 04:20 Labs: Laboratory Results - last 24 hr 04/28/24 04:20: WBC 15.8 H, RBC 2.35 L, Hgb 7.3 L, Hct 22.5 L, MCV 95.7, MCH 31.1, MCHC 32.4, RDW Std Deviation 45.1 H, RDW Coeff of Xin 13.0, Plt Count 338, MPV 9.7, Immature Gran % (Auto) 0.700, Neut % (Auto) 78.1 H, Lymph % (Auto) 10.6 L, [place] % (Auto) 7.3, Eos % (Auto) 2.8, Baso % (Auto) 0.5, Absolute Neuts (auto) 12.3 H, Absolute Lymphs (auto) 1.68, Nucleated RBC % 0, Sodium 126 L, Potassium 4.2, Chloride 103, Carbon Dioxide 10.0 L, Anion Gap 13, BUN 47 H, Creatinine 1.65 H, Estim Creat Clear Calc 26.87, Est GFR (MDRD) Af Amer 40 L, Est GFR (MDRD) Non-Af 33 L, BUN/Creatinine Ratio 28.5 H, Glucose 104, Calcium 7.6 L Micro: Microbiology 04/25/24 18:31 Urine Catheter - Nguyen Urine Culture - Preliminary GNR lactose doctor podiatric medicine Gram negative bakari Rhythm Strip Rhythm Strip: Sinus Rhythm Rate: 70 Ectopy: None Physical Exam Const alert and no apparent distress HEENT head/scalp atraumatic and moist oral mucous membranes Resp normal respiratory effort and no retractions Assessment & Plan Assessment/Plan (1) Weakness: (2) Acute hyponatremia: (3) Acute kidney injury: (4) Acute UTI: (5) Intractable nausea and vomiting: (6) Gastroparesis: (7) Type 2 diabetes mellitus with foot ulcer: QUALIFIERS: Diabetes mellitus longterm insulin use: with longterm use Qualified Code(s): E11.621 - Type 2 diabetes mellitus with foot ulcer; L97.509 - Non-pressure chronic ulcer of other part of unspecified foot with unspecified severity; Z79.4 - [facility] (current) use of insulin PLAN: Plan Acute hyponatremia * Stable * Likely secondary to nausea and vomiting. * Patient on dextrose and normal saline fusion of the emergency department. * Continue saline. * TSH 4.3 and cortisol 18.8 Intractable nausea and vomiting * Improving * Likely secondary to gastroenteritis * IV Zofran ordered. Debility * PT OT eval and treat CAUTI * catheter changed * Cipro * UCx showing E. coli and Klebsiella oxytoca. Given multiple allergies, the E. coli is resistant to the ciprofloxacin that the patient has actually been on during this hospitalization but both antibiotics are sensitive to nitrofurantoin. Though not an ideal antibiotic for for treatment of a urinary tract infection we will continue that as she has multiple medical allergies. DVT prophylaxis: enoxaparin Code status: DNRCCA, DNI. Dispo: to [facility] pending final urine culture results.
[2024-04-28 10:55] VITALS: BP 124/69; PULSE 66; RESP 16; TEMP 36.6; O2SAT 97
[2024-04-28] MEDS: Folic Acid 1 MG Tablet PO (11:00)
[2024-04-28] MEDS: Pantoprazole Sodium 40 MG Tablet PO (11:00)
[2024-04-28] MEDS: levETIRAcetam 250 MG Tablet PO (11:00)
[2024-04-28] MEDS: Lactobacillis Acidophilus 1 CAP PO (11:00)
[2024-04-28] MEDS: Loperamide 2 MG Capsule PO (11:00)
[2024-04-28] MEDS: Acetaminophen 500 MG Tablet 1000 MG PO (11:04)
[2024-04-28] MEDS: Ciprofloxacin 400 MG/200 ML BAG 200 MG IV (11:11)
[2024-04-28] MEDS: MENTHOL 226.8 GM JAR 1 APPLIC TOPICAL (11:12)
--- NOTE | 2024-04-28 11:56 | TREXTCAR_ITS ---
Diet Diet Order/Speech Therapy: 04/25/24 20:47 Diet: Regular - General Food consistency:: Easy to Chew Liquid Consistency:: Regular/Thin Diet Comments: Distant supervision, staff please assist cutting foods as needed Routine Orders/Code Status Code Status: DNRCC-A (no intubation) Therapies Physical Therapy: Eval and Treat Occupational Therapy: Eval and Treat Problem/Diagnosis (1) Weakness: Status: Acute Code(s): R53.1 - Weakness (2) Acute hyponatremia: Status: Acute Code(s): E87.1 - Hypo-osmolality and hyponatremia (3) Acute kidney injury: Status: Acute Code(s): N17.9 - Acute kidney failure, unspecified (4) Acute UTI: Status: Acute Code(s): N39.0 - Urinary tract infection, site not specified (5) Intractable nausea and vomiting: Status: Acute Code(s): R11.2 - Nausea with vomiting, unspecified (6) Gastroparesis: Status: Acute Code(s): K31.84 - Gastroparesis (7) Type 2 diabetes mellitus with foot ulcer: Status: Acute Code(s): E11.621 - Type 2 diabetes mellitus with foot ulcer; L97.509 - Non-pressure chronic ulcer of other part of unspecified foot with unspecified severity Plan Acute hyponatremia * Stable * Likely secondary to nausea and vomiting. * Patient on dextrose and normal saline fusion of the emergency department. * Continue saline. * TSH 4.3 and cortisol 18.8 Intractable nausea and vomiting * Improving * Likely secondary to gastroenteritis * IV Zofran ordered. Debility * PT OT eval and treat CAUTI * catheter changed * Cipro * UCx showing E. coli and Klebsiella oxytoca. Given multiple allergies, the E. coli is resistant to the ciprofloxacin that the patient has actually been on during this hospitalization but both antibiotics are sensitive to nitrofurantoin. Though not an ideal antibiotic for for treatment of a urinary tract infection we will continue that as she has multiple medical allergies. DVT prophylaxis: enoxaparin Code status: DNRCCA, DNI. Dispo: to [facility] pending final urine culture results. Allergies/Procedures Done in Hospital Allergies cefprozil Allergy (Verified 04/25/24 16:33) Shortness of breath ceftriaxone Allergy (Verified 04/25/24 16:33) Hives clindamycin Allergy (Verified 04/25/24 16:33) Rash enalapril Allergy (Verified 04/25/24 16:33) Other enoxaparin Allergy (Verified 04/25/24 16:33) Rash heparin Allergy (Verified 04/25/24 16:33) Rash levalbuterol Allergy (Verified 04/25/24 16:33) Other morphine Allergy (Verified 04/25/24 16:33) Shortness of breath Penicillins Allergy (Verified 04/25/24 16:33) Anaphylaxis valsartan Allergy (Verified 04/25/24 16:33) Other vancomycin Allergy (Verified 04/25/24 16:33) Rash pt states oral preparation she has no issues with, but iv she develops a rash atorvastatin Adverse Reaction (Verified 04/25/24 16:33) Other rosuvastatin (From Crestor) Adverse Reaction (Verified 04/25/24 16:33) Other Type of Care/Length of Stay Estimated LOS: Convalescent Care Less Than 30 days Type of Care Needed: Skilled Rehab Potential: Fair Prognosis: Good Additional Orders/Day of Discharge Day of Discharge: 04/28/24 Dietary and Speech 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s Dietitian 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s/Changes: Continue Regular diet with texture/consistency per ROCK DRILL OPERATOR to optimize oral intakes. If blood sugars are not well controlled, recommend CCD diet. RD will order Ensure Clear TID with meals to provide supplemental energy. Discharge Plan Admission Admit Date/Time: 04/25/24 19:17 Primary Reason for Your Visit: UTI Attending Provider: Aneesh Kingsley Primary Care Provider: Cody Billings Consulting Providers: Elías Vega Discharge Orders/Prescriptions Prescriptions: New cyclobenzaprine 5 mg Tablet 5 mg PO TID PRN (Reason: Muscle Spasm) Qty: 0 0RF nitrofurantoin macrocrystal 100 mg capsule 100 mg PO BID 5 Days Qty: 10 0RF Rx Instructions: must administer with a meal/food Continued folic acid 1 mg tablet 1 mg PO DAILY Qty: 30 11RF pantoprazole 40 mg Tablet,Delayed Release (Dr/Ec) 40 mg PO DAILY Culturelle 10 billion cell Capsule 1 cap PO DAILY loperamide 2 mg capsule 2 mg PO BID melatonin 3 mg tablet 3 mg PO QHS PRN (Reason: sleep) ergocalciferol (vitamin D2) 1,250 mcg (50,000 unit) capsule 1,250 mcg PO WE Boost Breeze Nutritional 0.04-1.05 gram-kcal/mL liquid 120 ml PO TID levetiracetam [Keppra] 250 mg tablet 250 mg PO BID Freeze It Relief 0.2-3.5 % gel 1 applic topical BID Patient Comments: APPLY TOPICALLY TO NECK, UPPER BACK, AND SHOULDERS TWICE DAILY acetaminophen 500 mg Tablet 1,000 mg PO Q6H PRN (Reason: Pain Score 1-5) albuterol sulfate [Ventolin HFA] 90 mcg/actuation Hfa Aerosol Inhaler 1 puff inhalation Q4H PRN (Reason: SHORTNESS OF BREATH) ondansetron 4 mg Tablet,Disintegrating 4 mg PO Q6H PRN (Reason: NAUSEA) Discontinued cyclobenzaprine 5 mg tablet 5 mg PO QHS PRN (Reason: muscle spasm) Referrals / Follow Up: Cody Billings MD [Primary Care Provider] - Disposition Disposition (needs filled in before D/C Order can be placed): Group Home Facility (7) Type 2 diabetes mellitus with foot ulcer Qualifiers: 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
--- NOTE | 2024-04-28 12:05 | DS.PCM_ITS ---
Providers Date of Admission: 04/25/24 Primary Care Physician: Dr. Cody Billings MD Reason For Visit: ACUTE UTI Diagnosis Discharge Diagnosis (1) Weakness: Status: Acute Code(s): R53.1 - Weakness (2) Acute hyponatremia: Status: Acute Code(s): E87.1 - Hypo-osmolality and hyponatremia (3) Acute kidney injury: Status: Acute Code(s): N17.9 - Acute kidney failure, unspecified (4) Acute UTI: Status: Acute Code(s): N39.0 - Urinary tract infection, site not specified (5) Intractable nausea and vomiting: Status: Acute Code(s): R11.2 - Nausea with vomiting, unspecified (6) Gastroparesis: Status: Acute Code(s): K31.84 - Gastroparesis (7) Type 2 diabetes mellitus with foot ulcer: Status: Acute Code(s): E11.621 - Type 2 diabetes mellitus with foot ulcer; L97.509 - Non-pressure chronic ulcer of other part of unspecified foot with unspecified severity Qualifiers: Diabetes mellitus halfway insulin use: with processing inspector use Qualified Code(s): E11.621 - Type 2 diabetes mellitus with foot ulcer; L97.509 - Non- pressure chronic ulcer of other part of unspecified foot with unspecified severity; Z79.4 - snf (current) use of insulin Plan Acute hyponatremia * Stable * Likely secondary to nausea and vomiting. * Patient on dextrose and normal saline fusion of the emergency department. * Continue saline. * TSH 4.3 and cortisol 18.8 Intractable nausea and vomiting * Improving * Likely secondary to gastroenteritis * IV Zofran ordered. Debility * PT OT eval and treat CAUTI * catheter changed * Cipro * UCx showing E. coli and Klebsiella oxytoca. Given multiple allergies, the E. coli is resistant to the ciprofloxacin that the patient has actually been on during this hospitalization but both antibiotics are sensitive to nitrofurantoin. Though not an ideal antibiotic for for treatment of a urinary tract infection we will continue that as she has multiple medical allergies. DVT prophylaxis: enoxaparin Code status: DNRCCA, DNI. Dispo: to [facility] pending final urine culture results. Medications at Discharge Home Medications folic acid 1 mg tablet 1 mg PO DAILY supplement #30 tabs 04/19/23 Lactobacillus rhamnosus GG 10 billion cell capsule (Culturelle) 1 cap PO DAILY GUT HEALTH 04/10/23 pantoprazole 40 mg tablet,delayed release 40 mg PO DAILY GERD 04/10/23 acetaminophen 500 mg tablet 1,000 mg PO Q6H PRN Pain Score 1-5 04/25/24 albuterol sulfate 90 mcg/actuation aerosol inhaler (Ventolin HFA) 1 puff inhalation Q4H PRN SHORTNESS OF BREATH 04/25/24 camphor-menthol 0.2 %-3.5 % topical gel (Freeze It Relief) 1 applic topical BID 04/25/24 ergocalciferol (vitamin D2) 1,250 mcg (50,000 unit) capsule 1,250 mcg PO WE 04/25/24 food supplemt, lactose-reduced 0.04 gram-1.05 kcal/mL oral liquid (Boost Breeze Nutritional) 120 ml PO TID 04/25/24 levetiracetam 250 mg tablet (Keppra) 250 mg PO BID 04/25/24 loperamide 2 mg capsule 2 mg PO BID 04/25/24 melatonin 3 mg tablet 3 mg PO QHS PRN sleep 04/25/24 ondansetron 4 mg disintegrating tablet 4 mg PO Q6H PRN NAUSEA 04/25/24 cyclobenzaprine 5 mg tablet 5 mg PO TID PRN Muscle Spasm #0 tabs 04/28/24 nitrofurantoin macrocrystal 100 mg capsule 100 mg PO BID 5 days #10 caps 04/28/24 Hospital Course Operations None Procedures None Summary of Care Provided Minutes Spent on Discharge: 33 Hospital Course: Patient presents with intractable nausea and vomiting. Patient was found to have urinary tract infection that grew out Klebsiella as well as E. coli. Sensitive to nitrofurantoin but also other medications but however patient has multiple medication allergies prohibit their use. Patient was on ciprofloxacin, which she is not allergic to, however the E. coli was resistant to it. That is why she will be discharged with nitrofurantoin. Patient was seen by speech therapy given her chronic dysphagia. They recommend GI consult this is due more to her history of dysphagia and known Dr. Melissa. But did not feel that was necessary as she was no longer having nausea vomiting and do not feel the nausea and vomiting may be more attributed to the urinary tract infection rather than her dysphagia. Patient already has a follow-up appointment with Dr. Melissa in May. Weight / BMI Weight Weight: 52.163 kg Body Mass Index (BMI) 19.7 ABG / Lab / Microbiology Data 04/28/24 04:20 04/28/24 04:20 Laboratory: Laboratory Results - last 24 hr 04/28/24 04:20: WBC 15.8 H, RBC 2.35 L, Hgb 7.3 L, Hct 22.5 L, MCV 95.7, MCH 31.1, MCHC 32.4, RDW Std Deviation 45.1 H, RDW Coeff of Xin 13.0, Plt Count 338, MPV 9.7, Immature Gran % (Auto) 0.700, Neut % (Auto) 78.1 H, Lymph % (Auto) 10.6 L, [place] % (Auto) 7.3, Eos % (Auto) 2.8, Baso % (Auto) 0.5, Absolute Neuts (auto) 12.3 H, Absolute Lymphs (auto) 1.68, Nucleated RBC % 0, Sodium 126 L, Potassium 4.2, Chloride 103, Carbon Dioxide 10.0 L, Anion Gap 13, BUN 47 H, Creatinine 1.65 H, Estim Creat Clear Calc 26.87, Est GFR (MDRD) Af Amer 40 L, Est GFR (MDRD) Non-Af 33 L, BUN/Creatinine Ratio 28.5 H, Glucose 104, Calcium 7.6 L Microbiology: Microbiology 04/28/24 11:12 Nasal Secretion SARS-CoV-2 Antigen (Rapid) - Final 04/25/24 18:31 Urine Catheter - Ngyuen Urine Culture - Final Klebsiella oxytoca Escherichia coli Meaningful Use Info Meaningful Use Meaningful Use Diagnoses (Choose all that apply): None applicable Ischemic Stroke Statin Dosing Therapy Reference: STATIN DOSE THERAPY REFERENCE: * Patients > 75 years receive moderate or high dose statin therapy. * Patients 75 years or YOUNGER should receive HIGH intensity statin dose unless contraindicated. You will be required to document reason for non-treatment if statin daily dose does not meet guidelines. HIGH DOSE STATIN THERAPY DAILY Atorvastatin > than or = to 40 mg Rosuvastatin > than or = to 20 mg Amlodipine + Atorvastatin > than or = to 2.5/40 mg Ezetimibe + Simvastatin 10/80 mg Simvastatin 80mg Discharge Plan Admission Admit Date/Time: 06/27/24 19:17 Primary Reason for Your Visit: UTI Attending Provider: Aneesh Kingsley Primary Care Provider: Cody Billings Consulting Providers: Elías Vega Discharge Orders/Prescriptions Prescriptions: New cyclobenzaprine 5 mg Tablet 5 mg PO TID PRN (Reason: Muscle Spasm) Qty: 0 0RF nitrofurantoin macrocrystal 100 mg capsule 100 mg PO BID 5 Days Qty: 10 0RF Rx Instructions: must administer with a meal/food Continued folic acid 1 mg tablet 1 mg PO DAILY Qty: 30 11RF pantoprazole 40 mg Tablet,Delayed Release (Dr/Ec) 40 mg PO DAILY Culturelle 10 billion cell Capsule 1 cap PO DAILY loperamide 2 mg capsule 2 mg PO BID melatonin 3 mg tablet 3 mg PO QHS PRN (Reason: sleep) ergocalciferol (vitamin D2) 1,250 mcg (50,000 unit) capsule 1,250 mcg PO WE Boost Breeze Nutritional 0.04-1.05 gram-kcal/mL liquid 120 ml PO TID levetiracetam [Keppra] 250 mg tablet 250 mg PO BID Freeze It Relief 0.2-3.5 % gel 1 applic topical BID Patient Comments: APPLY TOPICALLY TO NECK, UPPER BACK, AND SHOULDERS TWICE DAILY acetaminophen 500 mg Tablet 1,000 mg PO Q6H PRN (Reason: Pain Score 1-5) albuterol sulfate [Ventolin HFA] 90 mcg/actuation Hfa Aerosol Inhaler 1 puff inhalation Q4H PRN (Reason: SHORTNESS OF BREATH) ondansetron 4 mg Tablet,Disintegrating 4 mg PO Q6H PRN (Reason: NAUSEA) Discontinued cyclobenzaprine 5 mg tablet 5 mg PO QHS PRN (Reason: muscle spasm) Referrals / Follow Up: Cody Billings MD [Primary Care Provider] - [facility] [Provider Group] - 06/14/24 12:30 pm Disposition Disposition (needs filled in before D/C Order can be placed): [facility] Charges/Coding Visit Charges Inpatient E&M: 29133 Disch Hosp >30min
[2024-04-28 13:06] VITALS: BP 114/65; PULSE 62; RESP 16; TEMP 36.7; O2SAT 98
--- NOTE | 2024-04-28 13:35 | NURSING ---
Report given to KRISTEL Tse at [facility] at 1335.
== END 2024-04-28 13:44 | DRG 699 ==
LOC: ED 18:32 → PCU 20:06
PROVIDERS: Nurse Practitioner; Admitting Provider Hospitalist; Emergency Provider Emergency Medicine; PCP Family Medicine
DX: T83.511A Infection and inflammatory reaction due to indwelling urethral catheter, initial encounter (principal); E87.1 Hypo-osmolality and hyponatremia; N30.00 Acute cystitis without hematuria; Z16.23 Resistance to quinolones and fluoroquinolones; L97.519 Non-pressure chronic ulcer of other part of right foot with unspecified severity; E11.42 Type 2 diabetes mellitus with diabetic polyneuropathy; B96.1 Klebsiella pneumoniae [K. pneumoniae] as the cause of diseases classified elsewhere; B96.20 Unspecified Escherichia coli [E. coli] as the cause of diseases classified elsewhere; E11.51 Type 2 diabetes mellitus with diabetic peripheral angiopathy without gangrene; E11.43 Type 2 diabetes mellitus with diabetic autonomic (poly)neuropathy; E11.621 Type 2 diabetes mellitus with foot ulcer; R53.81 Other malaise; Z66 Do not resuscitate; Z86.718 Personal history of other venous thrombosis and embolism; Z79.51 Long term (current) use of inhaled steroids; Z79.899 Other long term (current) drug therapy; Z86.73 Personal history of transient ischemic attack (TIA), and cerebral infarction without residual deficits; X58.XXXA Exposure to other specified factors, initial encounter
CPT/HCPCS: 36415; 70450; 74230; 80048; 80053; 81001; 82533; 82962; 83605; 83690; 83930; 83935; 84443; 84550; 85025; 87077; 87086; 87088; 87186; 87811; 92526; 92610; 92611; 93005; 97163; 97166; 97530; 97535; 97802; 99284; J2997; J7030; A4216; J0744; J2405

== ENCOUNTER 2024-05-07 07:51 | Outpatient (CLI) | payer MEDICARE, OTHER, SELFPAY ==
[2024-05-07 08:17] VITALS: BP 140/58; PULSE 61; RESP 16; TEMP 36.4; O2SAT 97; BMI 19.7
[2024-05-07 09:53] VITALS: BP 147/58; PULSE 57; RESP 16; TEMP 36.6; O2SAT 97
[2024-05-07 10:53] VITALS: BP 152/62; PULSE 62; RESP 16; TEMP 36.2; O2SAT 98
[2024-05-07] MEDS: NORMAL SALINE 0.9% IV (11:12)
[2024-05-07] MEDS: POTASSIUM CHLORIDE IV (11:12)
[2024-05-07 15:47] VITALS: BP 136/66; PULSE 67; RESP 16; TEMP 36.9; O2SAT 99
== END 2024-05-07 23:59 | disposition home or self-care (01) ==
PROVIDERS: PCP Family Medicine; Referring Provider Nurse Practitioner Adult Health; Visit Provider Nurse Practitioner Adult Health
DX: D64.9 Anemia, unspecified (principal)
CPT/HCPCS: 96365; 96366 ×3; 36430; 86850; 86900; 86901; 86920; 86922; J7040; P9016; A4216

== ENCOUNTER 2024-06-04 12:39 | Inpatient (IN) | payer MEDICARE, OTHER, SELFPAY ==
[2024-06-04 12:40] VITALS: BP 129/67; PULSE 61; RESP 14; TEMP 36.6; O2SAT 99; BMI 21.6
--- NOTE | 2024-06-04 13:09 | EDS_ITS ---
HPI History of Present Illness Chief Complaint: Abn Labs Narrative Narrative: 69-year-old female sent in from [facility] via EMS because of abnormal laboratories. In discussion with the nurse practitioner, she states that the patient's WBC count has been creeping up and is now 21,000 today. Additionally, creatinine is elevated above 4 when it was normal last month. Patient states that she thinks that she is here because the nurse practitioner wanted her Nguyen catheter removed. She states that she has been at the senior care facility for about 3 weeks. She has been in and out of the hospital since October of this year. She also states that she has been having diarrhea. She denies fevers or chills, or other symptoms. [facility] Medical History Anemia in chronic illness Non-pressure chronic ulcer of left heel and midfoot with fat layer exposed PAD (peripheral artery disease) Neurapraxia History of benign brain tumor Type 2 diabetes mellitus with other skin ulcer Type 2 diabetes mellitus with foot ulcer Chronic deep vein thrombosis (DVT) of left lower extremity IBS (irritable bowel syndrome) Peripheral vascular disease, unspecified Non-pressure chronic ulcer of other part of right foot with fat layer exposed Asthma Malnutrition Difficulty in walking, not elsewhere classified Gastroparesis Acute renal insufficiency Urge incontinence Hydronephrosis Unable to ambulate Generalized weakness Non-pressure chronic ulcer of other part of right foot with fat layer exposed History of myocardial infarction History of cerebrovascular accident History of deep venous thrombosis (DVT) of distal vein of left lower extremity History of ischemic colitis Ulcer of amputation stump of foot Wound of left foot PAD (peripheral artery disease) Deep venous thrombosis of distal end of left lower extremity Type 2 diabetes mellitus with diabetic polyneuropathy Gastroesophageal reflux disease Osteoarthritis of cervical and lumbar spine Chronic diarrhea Brain tumor (benign) Diabetic foot ulcer Debility History of pneumonia Migraine Home Medications ?Medication ?Instructions ?Recorded ?Last Taken ?Type folic acid 1 mg tablet 1 mg PO DAILY SUPPLEMENT #30 tabs 02/15/23 04/09/23 Rx Lactobacillus rhamnosus GG 10 1 cap PO DAILY [facility] 04/10/23 04/09/23 History billion cell capsule (Culturelle) pantoprazole 40 mg tablet,delayed 40 mg PO DAILY GERD 04/10/23 02/02/24 06:00 History release acetaminophen 500 mg tablet 1,000 mg PO Q6H PRN Pain Score 1-5 04/25/24 Unknown History albuterol sulfate 90 mcg/actuation 1 puff inhalation Q4H PRN 04/25/24 Unknown History aerosol inhaler (Ventolin HFA) SHORTNESS OF BREATH camphor-menthol 0.2 %-3.5 % 1 applic topical BID 04/25/24 Unknown History topical gel (Freeze It Relief) ergocalciferol (vitamin D2) 1,250 1,250 mcg PO WE SUPPLEMENT 04/25/24 05/29/24 History mcg (50,000 unit) capsule food supplemt, lactose-reduced 120 ml PO TID 04/25/24 Unknown History 0.04 gram-1.05 kcal/mL oral liquid (Boost Breeze Nutritional) levetiracetam 250 mg tablet 250 mg PO BID EPILEPSY 04/25/24 Unknown History (Keppra) melatonin 3 mg tablet 3 mg PO QHS PRN SLEEP 04/25/24 Unknown History ondansetron 4 mg disintegrating 4 mg PO Q6H PRN NAUSEA 04/25/24 Unknown History tablet cyclobenzaprine 5 mg tablet 5 mg PO TID PRN MUSCLE SPASMS #0 04/28/24 Unknown Rx tabs Allergy/AdvReac Type Severity Reaction Status Date / Time cefprozil Allergy Shortness Verified 06/04/24 12:47 of breath ceftriaxone Allergy Hives Verified 06/04/24 12:47 clindamycin Allergy Rash Verified 06/04/24 12:47 enalapril Allergy Other Verified 06/04/24 12:47 enoxaparin Allergy Rash Verified 06/04/24 12:47 heparin Allergy Rash Verified 06/04/24 12:47 levalbuterol Allergy Other Verified 06/04/24 12:47 morphine Allergy Shortness Verified 06/04/24 12:47 of breath Penicillins Allergy Anaphylaxis Verified 06/04/24 12:47 valsartan Allergy Other Verified 06/04/24 12:47 vancomycin Allergy Rash Verified 06/04/24 12:47 atorvastatin AdvReac Other Verified 06/04/24 12:47 rosuvastatin (From Crestor) AdvReac Other Verified 06/04/24 12:47 Family History Mother Cancer Lung CA w/ tobacco use history. Diabetes COPD (chronic obstructive pulmonary disease) Father Cancer Lung CA w/ tobacco use history. Diabetes COPD (chronic obstructive pulmonary disease) Heart disease Surgical History Status post transmetatarsal amputation of left foot History of eye surgery History of lumpectomy History of foot surgery History of tubal ligation History of appendectomy Tubal ligation status Social History household members: none Smoking Status: Never smoker alcohol intake: never substance use type: does not use ROS ROS ED ROS Narrative Constitutional: No fever, no chills. Generalized weakness. HEENT: No sore throat. No neck pain. No loss of vision. No rhinorrhea. Cardiovascular: No chest pain. No palpitations. No pedal edema. Respiratory: No cough, no shortness of breath. Abdominal: No abdominal pain. No nausea. No vomiting. Positive diarrhea. Genitourinary: No dysuria. No hematuria. Musculoskeletal: No myalgias. No arthralgias. Neurologic: No headaches. No dizziness. No lightheadedness. Skin: No rash. No change in color. Psychiatric: No depression. No anxiety. EXAM Physical Exam Narrative Exam Narrative: Afebrile. Vital signs noted. Regular rate and rhythm. Lungs clear to auscultation bilaterally. Abdomen soft nontender with normoactive bowel sounds. Neurological examination shows her to be awake, alert, and oriented. Nonfocal. Const Vital Signs: 06/04/24 12:40 06/04/24 12:52 Temperature 97.8 F Temperature Source Temporal Pulse Rate 61 Respiratory Rate 14 Respiratory Effort Normal Non-Labored Respiratory Pattern Normal Blood Pressure 129/67 H Blood Pressure Mean 87 Pulse Ox 99 Oxygen Delivery Method Room Air MDM MDM MDM Narrative Medical decision making narrative: I was not told by the nurse practitioner prior to transfer that the patient is a DO NOT RESUSCITATE comfort care only patient. There is a signed [facility] DNR by the nurse practitioner from last month in April. Also in discussion with the patient, she does not want further workup performed and states that she wants to be comfortable. I did review her labs from today. In comparison with labs from the week before, she has had a steady increase of her creatinine from 3 and today to 4. Additionally, she did have an increase to a leukocytosis of 21,000. I had a lengthy discussion with the patient, and she does not want further workup. She was afraid that the catheter was going to be removed. She stated that she feels that she is not getting good care at her current facility, and wants to be transferred. Social work consult was made. Given that she wishes to be DO NOT RESUSCITATE comfort care only and remain that status, I will discuss patient with the hospitalist for admission. Disposition is admit in stable condition. Of note, I discussed patient with Dr. Alcaraz, requested that CBC and CMP to be drawn prior to admission. Patient had expressed that she would not necessarily say that she would not want to be treated. At this point in time, her labs are pending. Patient will be signed out to the oncoming physician, Dr. Ray Sadler, to make final disposition on this patient whether it be admitted versus return to [facility]. Patient is in stable condition. History & Record Review Discussion w/independent historian: Patient Additional record(s) reviewed:: Prior labs Management Discussion w/another healthcare provider: Hospitalist and take off worker/Case management Discharge Plan Dx/Rx/DC Orders Clinical Impression: Leukocytosis, Acute kidney injury superimposed on chronic kidney disease, DNR (do not resuscitate) Disposition Disposition: Acute Care [facility]
[2024-06-04 14:39] VITALS: BP 112/64; PULSE 62; RESP 14; O2SAT 96
[2024-06-04 15:02] LABS: Absolute Lymphocyte Count 3.76 X10^3/uL (0.83-4.51); Absolute Neutrophil Count 13.5 X10^3/uL (2.0-7.7); Basophil# 0.18 X10^3/uL; Basophil% 0.9 % (0-1); Eosinophil# 0.47 X10^3/uL; Eosinophils% 2.4 % (0-5); Hematocrit 29.7 % (37-47); Hemoglobin 9.5 g/dL (12.0-15.0); Lymphocyte # 3.76 X10^3/ul (0.83-4.51); Lymphocyte % 19.6 % (19-41); Mean Corpuscular Volume 93.7 fL (81-99); Mean Platelet Vol. 9.7 fl (6.2-12.0); Monocyte# 1.07 X10^3/uL; Monocyte% 5.6 % (0-10); NRBC Flagged by Analyzer 0 % (0-5); Neutrophil # 13.53 X10^3/uL (2.7-7.7); Neutrophil % 70.5 % (47-70); Platelet Count 233 K/mm3 (150-450); RBC Distribution Width CV 14.6 % (11.6-14.6); RBC Distribution Width SD 50.4 fl (35.1-43.9); Red Blood Count 3.17 M/mm3 (4.2-5.4); White Blood Count 19.2 K/mm3 (4.4-11.0)
[2024-06-04 15:22] LABS: ALB/GLOB Ratio 0.4 RATIO (0.9-2.4); AST(SGOT) 11 U/L (15-37); Alanine Aminotransfer ALT/SGPT 7 U/L (13-56); Albumin, Serum 2.4 g/dL (3.2-5.0); Alkaline Phosphatase 95 U/L (45-117); Anion Gap 14 (5-15); BUN 57 mg/dL (7-18); BUN/Creat Ratio 11.7 RATIO (10-20); Calcium,Total 8.4 mg/dL (8.5-10.1); Chloride 110 mmol/L (98-107); Creatinine, Serum 4.89 mg/dL (0.55-1.02); EST Glomerular Filtration Rate 9 mL/min (>60); Est Glom Filt Rate - Afr Amer 11 mL/min (>60); Estimated Creatinine Clearance 9.51 ml/min; Globulin 6.3 g/dL (2.2-4.2); Glucose 90 mg/dL (74-106); Potassium 4.5 mmol/L (3.5-5.1); Protein, Total 8.7 g/dL (6.4-8.2); Sodium Level 132 mmol/L (136-145)
--- NOTE | 2024-06-04 15:41 | EX.ED.DYSGE1 ---
HPI History of Present Illness Chief Complaint: Abn Labs [facility] Medical History Anemia in chronic illness Non-pressure chronic ulcer of left heel and midfoot with fat layer exposed PAD (peripheral artery disease) Neurapraxia History of benign brain tumor Type 2 diabetes mellitus with other skin ulcer Type 2 diabetes mellitus with foot ulcer Chronic deep vein thrombosis (DVT) of left lower extremity IBS (irritable bowel syndrome) Peripheral vascular disease, unspecified Non-pressure chronic ulcer of other part of right foot with fat layer exposed Asthma Malnutrition Difficulty in walking, not elsewhere classified Gastroparesis Acute renal insufficiency Urge incontinence Hydronephrosis Unable to ambulate Generalized weakness Non-pressure chronic ulcer of other part of right foot with fat layer exposed History of myocardial infarction History of cerebrovascular accident History of deep venous thrombosis (DVT) of distal vein of left lower extremity History of ischemic colitis Ulcer of amputation stump of foot Wound of left foot PAD (peripheral artery disease) Deep venous thrombosis of distal end of left lower extremity Type 2 diabetes mellitus with diabetic polyneuropathy Gastroesophageal reflux disease Osteoarthritis of cervical and lumbar spine Chronic diarrhea Brain tumor (benign) Diabetic foot ulcer Debility History of pneumonia Migraine Home Medications ?Medication ?Instructions ?Recorded ?Last Taken ?Type folic acid 1 mg tablet 1 mg PO DAILY SUPPLEMENT #30 tabs 02/15/23 04/09/23 Rx Lactobacillus rhamnosus GG 10 1 cap PO DAILY [facility] 04/10/23 04/09/23 History billion cell capsule (Culturelle) pantoprazole 40 mg tablet,delayed 40 mg PO DAILY GERD 04/10/23 02/02/24 06:00 History release acetaminophen 500 mg tablet 1,000 mg PO Q6H PRN Pain Score 1-5 04/25/24 Unknown History albuterol sulfate 90 mcg/actuation 1 puff inhalation Q4H PRN 04/25/24 Unknown History aerosol inhaler (Ventolin HFA) SHORTNESS OF BREATH camphor-menthol 0.2 %-3.5 % 1 applic topical BID 04/25/24 Unknown History topical gel (Freeze It Relief) ergocalciferol (vitamin D2) 1,250 1,250 mcg PO WE SUPPLEMENT 04/25/24 05/29/24 History mcg (50,000 unit) capsule food supplemt, lactose-reduced 120 ml PO TID 04/25/24 Unknown History 0.04 gram-1.05 kcal/mL oral liquid (Boost Breeze Nutritional) levetiracetam 250 mg tablet 250 mg PO BID EPILEPSY 04/25/24 Unknown History (Keppra) melatonin 3 mg tablet 3 mg PO QHS PRN SLEEP 04/25/24 Unknown History ondansetron 4 mg disintegrating 4 mg PO Q6H PRN NAUSEA 04/25/24 Unknown History tablet cyclobenzaprine 5 mg tablet 5 mg PO TID PRN MUSCLE SPASMS #0 04/28/24 Unknown Rx tabs Allergy/AdvReac Type Severity Reaction Status Date / Time cefprozil Allergy Shortness Verified 06/04/24 12:47 of breath ceftriaxone Allergy Hives Verified 06/04/24 12:47 clindamycin Allergy Rash Verified 06/04/24 12:47 enalapril Allergy Other Verified 06/04/24 12:47 enoxaparin Allergy Rash Verified 06/04/24 12:47 heparin Allergy Rash Verified 06/04/24 12:47 levalbuterol Allergy Other Verified 06/04/24 12:47 morphine Allergy Shortness Verified 06/04/24 12:47 of breath Penicillins Allergy Anaphylaxis Verified 06/04/24 12:47 valsartan Allergy Other Verified 06/04/24 12:47 vancomycin Allergy Rash Verified 06/04/24 12:47 atorvastatin AdvReac Other Verified 06/04/24 12:47 rosuvastatin (From Crestor) AdvReac Other Verified 06/04/24 12:47 Family History Mother Cancer Lung CA w/ tobacco use history. Diabetes COPD (chronic obstructive pulmonary disease) Father Cancer Lung CA w/ tobacco use history. Diabetes COPD (chronic obstructive pulmonary disease) Heart disease Surgical History Status post transmetatarsal amputation of left foot History of eye surgery History of lumpectomy History of foot surgery History of tubal ligation History of appendectomy Tubal ligation status Social History household members: none Smoking Status: Never smoker alcohol intake: never substance use type: does not use EXAM Physical Exam Const Vital Signs: 06/04/24 12:40 06/04/24 12:52 06/04/24 14:39 Temperature 97.8 F Temperature Source Temporal Pulse Rate 61 62 Respiratory Rate 14 14 Respiratory Effort Normal Non-Labored Respiratory Pattern Normal Blood Pressure 129/67 H 112/64 Blood Pressure Mean 87 80 Pulse Ox 99 96 Oxygen Delivery Method Room Air 06/04/24 15:44 Temperature 97.4 F L Temperature Source Pulse Rate 60 Respiratory Rate 15 Respiratory Effort Respiratory Pattern Blood Pressure 106/63 Blood Pressure Mean 77 Pulse Ox 97 Oxygen Delivery Method MDM MDM Lab Data Labs: Laboratory Results - last 24 hr 06/04/24 14:50 WBC 19.2 H RBC 3.17 L Hgb 9.5 L Hct 29.7 L MCV 93.7 MCH 30.0 MCHC 32.0 RDW Std Deviation 50.4 H RDW Coeff of Xin 14.6 Plt Count 233 MPV 9.7 Immature Gran % (Auto) 1.000 H Neut % (Auto) 70.5 H Lymph % (Auto) 19.6 [place] % (Auto) 5.6 Eos % (Auto) 2.4 Baso % (Auto) 0.9 Absolute Neuts (auto) 13.5 H Absolute Lymphs (auto) 3.76 Nucleated RBC % 0 Sodium 132 L Potassium 4.5 Chloride 110 H Carbon Dioxide 8.0 L* Anion Gap 14 BUN 57 H Creatinine 4.89 H Estim Creat Clear Calc 9.51 Est GFR (MDRD) Af Amer 11 L Est GFR (MDRD) Non-Af 9 L BUN/Creatinine Ratio 11.7 Glucose 90 Calcium 8.4 L Total Bilirubin 0.20 AST 11 L ALT 7 L Alkaline Phosphatase 95 Total Protein 8.7 H Albumin 2.4 L Globulin 6.3 H Albumin/Globulin Ratio 0.4 L Discharge Plan Dx/Rx/DC Orders Clinical Impression: Leukocytosis, Acute kidney injury superimposed on chronic kidney disease, DNR (do not resuscitate), Metabolic acidosis, Hyponatremia, Hypochloremia Disposition Disposition: [facility] Discharge Date/Time: 06/04/24 16:52
[2024-06-04 15:44] VITALS: BP 106/63; PULSE 60; RESP 15; TEMP 36.3; O2SAT 97
[2024-06-04 16:00] VITALS: BP 120/70; PULSE 59; RESP 22; O2SAT 97
--- NOTE | 2024-06-04 16:06 | US_ITS ---
INDICATION: Elevated creatinine EXAMINATION: Ultrasound US Kidney(s) complete (eg, kidneys and bladder) COMPARISON: None. FINDINGS: 53 grayscale ultrasound images of the kidneys and urinary bladder. KIDNEYS: Bilateral kidneys without shadowing nephrolith or hydronephrosis.] No obvious renal parenchymal lesion. URINARY BLADDER:?Minimally distended urinary bladder contains Nguyen catheter balloon tip, 25 cc volume. No significant free fluid. US/Kidney and Bladder IMPRESSION: Unremarkable kidneys and urinary bladder. Electronically Signed: Chuy Roberto MD at 1:47 EDT ,
--- NOTE | 2024-06-04 16:21 | CASEMGMT ---
Emergency Department Social Work Sw met with patient to discuss her current concerns and to attempt to identify discharge plan. Patient reports that she would like to be considered comfort care, but was brought to ED by [facility] due to abnormal labs. Patient states that she wishes to not be returned/ discharged to [facility] as she believes they are giving her the run around and not taking her wants/ needs into consideration. Patient states that she also believes that they have accidentally provided her with the wrong medications. Patient is currently skilled at [facility] but reports she has not done therapy since last Monday due to being ill and nauseated. Patient states that her family lives in [place] and she would prefer to be admitted to a facility that is close to there. While meeting with provider, patient states that she would consent to admission for fluids. Sw tried to educate patient on comfort care, Hospice/ Palliative services. Patient receptive to learning more, to be explored further. Support provided at this time. Patient to be admitted and discharge plan to be identified. Sandie Baugh, PERSONALIZATION SPECIALIST, IRONING WORKER
[2024-06-04 17:00] VITALS: BP 112/53; PULSE 59; RESP 16; TEMP 36.4; O2SAT 100; BMI 19.6
--- NOTE | 2024-06-04 17:55 | PCM.HP.STD ---
HPI - General General Date of Admission: 06/04/24 Date of Service: 06/04/24 Chief Complaint: Abnormal labs, diarrhea HPI Narrative RED PRICE, is a 69 F who presents to the emergency room at [facility] after being sent in from a local extended care facility at which she is receiving skilled services due to abnormal labs which were drawn this morning. Patient also stated that she had diarrhea. Labs showed an elevated white blood cell count as well as a low bicarbonate and an elevated creatinine. Patient states that she is a comfort care but when I talked with her in the emergency room about treating her in the hospital she stated that she is in agreement to come into the hospital if she needs treatment, she does not want any intubation or CPR. I had her labs repeated, it revealed a white blood cell count of 19 and a hemoglobin of 9.5, chemistry was abnormal for a bicarb of 8, creatinine of 4.89 and a BUN of 57. Patient's sodium was slightly low but this was not significant. Patient will be admitted to [facility], she will be given 1 L of bicarb solution and then placed on lactated Ringer's, she will be seen in consultation by nephrology, she has a none anion gap acidosis, I feel this is probably from diarrhea. Stool for C. difficile and enteric pathogen's will be obtained. [facility] Medical History Anemia in chronic illness Non-pressure chronic ulcer of left heel and midfoot with fat layer exposed PAD (peripheral artery disease) Neurapraxia History of benign brain tumor Type 2 diabetes mellitus with other skin ulcer Type 2 diabetes mellitus with foot ulcer Chronic deep vein thrombosis (DVT) of left lower extremity IBS (irritable bowel syndrome) Peripheral vascular disease, unspecified Non-pressure chronic ulcer of other part of right foot with fat layer exposed Asthma Malnutrition Difficulty in walking, not elsewhere classified Gastroparesis Acute renal insufficiency Urge incontinence Hydronephrosis Unable to ambulate Generalized weakness Non-pressure chronic ulcer of other part of right foot with fat layer exposed History of myocardial infarction History of cerebrovascular accident History of deep venous thrombosis (DVT) of distal vein of left lower extremity History of ischemic colitis Ulcer of amputation stump of foot Wound of left foot PAD (peripheral artery disease) Deep venous thrombosis of distal end of left lower extremity Type 2 diabetes mellitus with diabetic polyneuropathy Gastroesophageal reflux disease Osteoarthritis of cervical and lumbar spine Chronic diarrhea Brain tumor (benign) Diabetic foot ulcer Debility History of pneumonia Migraine Home Medications ?Medication ?Instructions ?Recorded ?Last Taken ?Type folic acid 1 mg tablet 1 mg PO DAILY SUPPLEMENT #30 tabs 02/15/23 04/09/23 Rx Lactobacillus rhamnosus GG 10 1 cap PO DAILY GUT HEALTH 04/10/23 04/09/23 History billion cell capsule (Culturelle) pantoprazole 40 mg tablet,delayed 40 mg PO DAILY GERD 04/10/23 02/02/24 06:00 History release acetaminophen 500 mg tablet 1,000 mg PO Q6H PRN Pain Score 1-5 04/25/24 Unknown History albuterol sulfate 90 mcg/actuation 1 puff inhalation Q4H PRN 04/25/24 Unknown History aerosol inhaler (Ventolin HFA) SHORTNESS OF BREATH camphor-menthol 0.2 %-3.5 % 1 applic topical BID 04/25/24 Unknown History topical gel (Freeze It Relief) ergocalciferol (vitamin D2) 1,250 1,250 mcg PO WE SUPPLEMENT 04/25/24 05/29/24 History mcg (50,000 unit) capsule food supplemt, lactose-reduced 120 ml PO TID 04/25/24 Unknown History 0.04 gram-1.05 kcal/mL oral liquid (Boost Breeze Nutritional) levetiracetam 250 mg tablet 250 mg PO BID EPILEPSY 04/25/24 Unknown History (Keppra) melatonin 3 mg tablet 3 mg PO QHS PRN SLEEP 04/25/24 Unknown History ondansetron 4 mg disintegrating 4 mg PO Q6H PRN NAUSEA 04/25/24 Unknown History tablet cyclobenzaprine 5 mg tablet 5 mg PO TID PRN MUSCLE SPASMS #0 04/28/24 Unknown Rx tabs Allergy/AdvReac Type Severity Reaction Status Date / Time cefprozil Allergy Shortness Verified 06/04/24 12:47 of breath ceftriaxone Allergy Hives Verified 06/04/24 12:47 clindamycin Allergy Rash Verified 06/04/24 12:47 enalapril Allergy Other Verified 06/04/24 12:47 enoxaparin Allergy Rash Verified 06/04/24 12:47 heparin Allergy Rash Verified 06/04/24 12:47 levalbuterol Allergy Other Verified 06/04/24 12:47 morphine Allergy Shortness Verified 06/04/24 12:47 of breath Penicillins Allergy Anaphylaxis Verified 06/04/24 12:47 valsartan Allergy Other Verified 06/04/24 12:47 vancomycin Allergy Rash Verified 06/04/24 12:47 atorvastatin AdvReac Other Verified 06/04/24 12:47 rosuvastatin (From Crestor) AdvReac Other Verified 06/04/24 12:47 Family History Mother Cancer Lung CA w/ tobacco use history. Diabetes COPD (chronic obstructive pulmonary disease) Father Cancer Lung CA w/ tobacco use history. Diabetes COPD (chronic obstructive pulmonary disease) Heart disease Surgical History Status post transmetatarsal amputation of left foot History of eye surgery History of lumpectomy History of foot surgery History of tubal ligation History of appendectomy Tubal ligation status Social History household members: none Smoking Status: Never smoker alcohol intake: never substance use type: does not use ROS Constitutional Constitutional: Denies anorexia, change in weight, chills, fatigue, fever(s), malaise, night sweats or weakness Eyes Eyes: Denies blurry vision, change in vision, discharge from eye(s) or eye pain Cardiovascular Cardiovascular: Denies chest pain, claudication, dyspnea on exertion, edema or palpitations Respiratory/Chest Respiratory/Chest: Denies cough, hemoptysis, shortness of breath at rest or shortness of breath with exertion Gastrointestinal Gastrointestinal: Reports diarrhea; Denies abdominal pain, constipation, hematemesis, hematochezia, melena, nausea or vomiting Genitourinary Genitourinary: Denies dysuria, hematuria, urinary frequency, urinary hesitancy, urinary incontinence or urinary urgency Musculoskeletal Musculoskeletal: Denies back pain, joint pain, joint stiffness, joint swelling, myalgias or neck pain Neurologic Neurologic: Denies abnormal gait, abnormal speech, confusion, disequilibrium, dizziness, focal weakness, headache(s), loss of vision, numbness, other visual disturbances, paresthesias, syncope or tingling Psychiatric Psychiatric: Denies anxiety, cognitive impairment, depression, irritability, mood swings or suicidal ideation Endocrine Endocrinology: Denies change in body appearance, cold intolerance, excessive sweating, heat intolerance, polydipsia or polyuria Hematologic/Lymphatic Hematologic/Lymphatic: Denies none, anemia, easy bleeding, easy bruising or lymphadenopathy Allergic/Immunologic Allergic/Immunologic: Denies rhinitis, urticaria, eczemia or asthma Vital Signs Vital Signs Vital Signs: 06/04/24 12:40 06/04/24 12:52 06/04/24 14:39 Temperature 97.8 F Temperature Source Temporal Pulse Rate 61 62 Respiratory Rate 14 14 Respiratory Effort Normal Non-Labored Respiratory Pattern Normal Blood Pressure 129/67 H 112/64 Blood Pressure Mean 87 80 Blood Pressure Source Blood Pressure Position Blood Pressure Location Pulse Ox 99 96 Oxygen Delivery Method Room Air 06/04/24 15:44 06/04/24 16:00 06/04/24 17:00 Temperature 97.4 F L 97.5 F L Temperature Source Oral Pulse Rate 60 59 L 59 L Respiratory Rate 15 22 H 16 Respiratory Effort Respiratory Pattern Blood Pressure 106/63 120/70 112/53 L Blood Pressure Mean 77 86 72 Blood Pressure Source Monitor Blood Pressure Position Semi-Fowlers Blood Pressure Location Right Arm Pulse Ox 97 97 100 Oxygen Delivery Method Room Air Room Air Weight Weight: 51.9 kg Body Mass Index (BMI) 19.6 Physical Exam Const alert, no apparent distress and average body habitus General Appearance: cooperative, well kempt and well developed Orientation / Consciousness: awake, oriented to person and oriented to place HEENT normocephalic, head/scalp atraumatic and moist oral mucous membranes Eyes PERRL, EOMs intact bilaterally and conjunctivae normal Neck supple, no JVD, thyroid normal and no carotid bruits General: trachea midline Resp normal respiratory effort, no retractions, no use of accessory muscles and clear to auscultation bilaterally Auscultation: Negative for rales, rhonchi or wheezes Cardio regular rate, regular rhythm, S1 normal heart sound, S2 normal heart sound, no murmurs, no rub and no gallops GI normal to inspection, nondistended, normoactive bowel sounds, soft to palpation, non-tender and non-distended Extremity no clubbing, cyanosis or edema Skin no rashes or lesions noted General Skin Exam: no breakdown Neuro CN's II-XII intact bilaterally, moves all extremities, no focal motor deficits and no sensory deficits noted Sensorium / Orientation: awake, alert, oriented to person and oriented to place Speech: speech normal Psych affect normal Results Lab / Micro Data 06/04/24 14:50 06/04/24 14:50 Labs: Laboratory Results - last 24 hr 06/04/24 14:50: WBC 19.2 H, RBC 3.17 L, Hgb 9.5 L, Hct 29.7 L, MCV 93.7, MCH 30.0, MCHC 32.0, RDW Std Deviation 50.4 H, RDW Coeff of Xin 14.6, Plt Count 233, MPV 9.7, Immature Gran % (Auto) 1.000 H, Neut % (Auto) 70.5 H, Lymph % (Auto) 19.6, [place] % (Auto) 5.6, Eos % (Auto) 2.4, Baso % (Auto) 0.9, Absolute Neuts (auto) 13.5 H, Absolute Lymphs (auto) 3.76, Nucleated RBC % 0, Sodium 132 L, Potassium 4.5, Chloride 110 H, Carbon Dioxide 8.0 L*, Anion Gap 14, BUN 57 H, Creatinine 4.89 H, Estim Creat Clear Calc 9.51, Est GFR (MDRD) Af Amer 11 L, Est GFR (MDRD) Non-Af 9 L, BUN/Creatinine Ratio 11.7, Glucose 90, Calcium 8.4 L, Total Bilirubin 0.20, AST 11 L, ALT 7 L, Alkaline Phosphatase 95, Total Protein 8.7 H, Albumin 2.4 L, Globulin 6.3 H, Albumin/Globulin Ratio 0.4 L Assessment & Plan Assessment/Plan (1) Metabolic acidosis: PLAN: Plan 1. Nonanion gap metabolic acidosis-secondary to diarrhea, patient will be admitted to [facility] 3, she will be given IV sodium bicarbonate x 1 L, then she will be switched to lactated Ringer's. Labs will be monitored, she will be seen by nephrology #2 elevated white blood cell count-etiology unclear, again still will be obtained for C. difficile and enteric pathogens #3 diarrhea-etiology unclear, again stool will be collected for C. difficile and enteric pathogens #4 elevated creatinine-patient's creatinine has been elevating during the month of April, I will obtain an ultrasound of the kidneys to rule out any hydronephrosis, there was hydronephrosis noted on her last ultrasound of her kidneys done in January of this year. Patient currently has a Nguyen catheter in place, I will leave this in place. #5 debility-patient states she would like to go to a different nursing facility, foster care social worker will talk to the patient about this. #6 seizure disorder-patient is on Keppra Total clinical time spent by myself addressing patient's medical issues, reviewing all of her data, and collaborating with patient's care team: 55 minutes Charges/Coding Visit Charges Inpatient E&M: 50145 Init Hosp L2
[2024-06-04] MEDS: Sodium Bicarbonate 150 MEQ in Dextrose 5%-Water (1000mL Bag) 1,000 ML 125 MEQ IV (19:00)
[2024-06-04] MEDS: 0.9% Saline Lock 10 ML Syringe IV (19:01)
[2024-06-04] MEDS: cycloBENZAPRine HCl 5 MG TABLET PO (20:33)
--- NOTE | 2024-06-04 21:58 | PCM.HOSP.N ---
Hospitalist Note Urine noted to be foul appearing, has chronic villalobos. Will obtain UA, UCx and will replace villalobos.
[2024-06-04] MEDS: Menthol/Lanolin/Calamine/Znox 113 GM Tube 1 APPLIC TOPICAL (22:25)
[2024-06-04] MEDS: levETIRAcetam 250 MG Tablet PO (22:25)
[2024-06-04 22:27] LABS: Mucous, Urine 0 SEEN /hpf (<or=2+); Squamous Epithelial Cells - UA 0 SEEN /hpf (5-10)
[2024-06-04] MEDS: Acetaminophen 325 MG Tablet 650 MG PO (22:29)
[2024-06-04 22:31] LABS: Color, Urine Yellow (Yellow); Glucose, Dipstick Normal (Normal); Ketone-Dipstick Negative (Negative); Leukocyte Esterase-Dipstick 500 /ul (Negative); Nitrite-Dipstick Negative (Negative); Occult Blood-Urine 150 /ul (Negative); Protein-Dipstick 100 mg/dl (Negative); Specific Gravity, Urine 1.015 (1.002-1.030); Urine Bilirubin Dipstick Negative (Negative); Urine Clarity Turbid (Clear); Urine Urobilinogen Normal (Normal)
[2024-06-04 22:47] LABS: White Blood Cells >100 SEEN /hpf (0-5)
[2024-06-04 22:48] LABS: Bacteria 2+ /hpf (None Seen); Red Blood Cells-Urine 50-100 SEEN /hpf (0-5)
[2024-06-04 22:49] LABS: Renal Epithelial Cells 0-5 SEEN /hpf (0-5)
[2024-06-04 23:00] VITALS: BP 124/62; PULSE 58; RESP 16; TEMP 36.3; O2SAT 98
[2024-06-05] MEDS: Lactated Ringers 1,000 ML 100 ML IV (03:48)
[2024-06-05 05:00] VITALS: BP 111/45; PULSE 78; RESP 16; TEMP 36.7; O2SAT 98
[2024-06-05 05:05] LABS: Absolute Lymphocyte Count 3.86 X10^3/uL (0.83-4.51); Absolute Neutrophil Count 9.4 X10^3/uL (2.0-7.7); Basophil# 0.13 X10^3/uL; Basophil% 0.9 % (0-1); Eosinophils% 3.3 % (0-5); Hematocrit 24.8 % (37-47); Hemoglobin 8.2 g/dL (12.0-15.0); Lymphocyte # 3.86 X10^3/ul (0.83-4.51); Lymphocyte % 25.9 % (19-41); Mean Corp Hgb Conc 33.1 g/dL (32-36); Mean Corpuscular Hgb 29.9 pg (27.0-32.0); Mean Corpuscular Volume 90.5 fL (81-99); Mean Platelet Vol. 9.7 fl (6.2-12.0); Monocyte# 0.98 X10^3/uL; Monocyte% 6.6 % (0-10); NRBC Flagged by Analyzer 0 % (0-5); Neutrophil # 9.36 X10^3/uL (2.7-7.7); Neutrophil % 62.6 % (47-70); Platelet Count 209 K/mm3 (150-450); RBC Distribution Width SD 46.5 fl (35.1-43.9); Red Blood Count 2.74 M/mm3 (4.2-5.4); White Blood Count 14.9 K/mm3 (4.4-11.0)
[2024-06-05 05:32] LABS: Anion Gap 12 (5-15); BUN 58 mg/dL (7-18); BUN/Creat Ratio 11.9 RATIO (10-20); Chloride 106 mmol/L (98-107); Creatinine, Serum 4.88 mg/dL (0.55-1.02); EST Glomerular Filtration Rate 9 mL/min (>60); Est Glom Filt Rate - Afr Amer 11 mL/min (>60); Estimated Creatinine Clearance 9.04 ml/min; Glucose 72 mg/dL (74-106); Potassium 4.1 mmol/L (3.5-5.1); Sodium Level 129 mmol/L (136-145)
[2024-06-05] MEDS: Menthol/Lanolin/Calamine/Znox 113 GM Tube 1 APPLIC TOPICAL ×3 (05:48→20:14)
[2024-06-05] MEDS: Acetaminophen 325 MG Tablet 650 MG PO ×2 (05:50→20:14)
[2024-06-05 08:46] VITALS: BP 117/47; PULSE 68; RESP 16; TEMP 37.3; O2SAT 99
[2024-06-05] MEDS: levETIRAcetam 250 MG Tablet PO ×2 (08:56→20:13)
[2024-06-05] MEDS: Pantoprazole Sodium 40 MG Tablet PO (08:56)
--- NOTE | 2024-06-05 09:31 | PCM.PN.HOSP ---
Reason for Visit Reason for Visit: Diagnoses Acidosis, unspecified (06/04/24) Objective Data Objective Data Vital Signs: Vital Signs Temp Pulse Resp BP Pulse Ox O2 Del Method 99.1 F 68 16 117/47 L 99 Room Air 06/05/24 08:46 06/05/24 08:46 06/05/24 08:46 06/05/24 08:46 06/05/24 08:46 06/05/24 08:46 Oxygen Delivery Method Room Air Weight: 114 lb 6.719 oz Body Mass Index (BMI) 19.6 Intake & Output: Intake and Output for Last 24 Hours 06/03/24 06/04/24 06/05/24 23:59 23:59 23:59 Intake Total 1350 / 1350 Output Total 200 / 200 Balance 1150 / 1150 Lab / Micro Data 06/05/24 04:48 06/05/24 04:48 Labs: Laboratory Results - last 24 hr 06/04/24 14:50: WBC 19.2 H, RBC 3.17 L, Hgb 9.5 L, Hct 29.7 L, MCV 93.7, MCH 30.0, MCHC 32.0, RDW Std Deviation 50.4 H, RDW Coeff of Xin 14.6, Plt Count 233, MPV 9.7, Immature Gran % (Auto) 1.000 H, Neut % (Auto) 70.5 H, Lymph % (Auto) 19.6, [place] % (Auto) 5.6, Eos % (Auto) 2.4, Baso % (Auto) 0.9, Absolute Neuts (auto) 13.5 H, Absolute Lymphs (auto) 3.76, Nucleated RBC % 0, Sodium 132 L, Potassium 4.5, Chloride 110 H, Carbon Dioxide 8.0 L*, Anion Gap 14, BUN 57 H, Creatinine 4.89 H, Estim Creat Clear Calc 9.51, Est GFR (MDRD) Af Amer 11 L, Est GFR (MDRD) Non-Af 9 L, BUN/Creatinine Ratio 11.7, Glucose 90, Calcium 8.4 L, Total Bilirubin 0.20, AST 11 L, ALT 7 L, Alkaline Phosphatase 95, Total Protein 8.7 H, Albumin 2.4 L, Globulin 6.3 H, Albumin/Globulin Ratio 0.4 L 06/04/24 22:10: Urine Color Yellow, Urine Clarity Turbid, Urine pH 6.0, Ur Specific Edelstein 1.015, Urine Protein 100 H, Urine Glucose (UA) Normal, Urine Ketones Negative, Urine Occult Blood 150 H, Urine Nitrite Negative, Urine Bilirubin Negative, Urine Urobilinogen Normal, Ur Leukocyte Esterase 500 H, Urine RBC 50-100 SEEN, Urine WBC >100 SEEN, Ur Squamous Epith Cells 0 SEEN, Ur Renal Epithelial Cell 0-5 SEEN, Urine Bacteria 2+, Urine Mucus 0 SEEN 06/05/24 04:48: WBC 14.9 H, RBC 2.74 L, Hgb 8.2 L, Hct 24.8 L, MCV 90.5, MCH 29.9, MCHC 33.1, RDW Std Deviation 46.5 H, RDW Coeff of Xin 14.0, Plt Count 209, MPV 9.7, Immature Gran % (Auto) 0.700, Neut % (Auto) 62.6, Lymph % (Auto) 25.9, [place] % (Auto) 6.6, Eos % (Auto) 3.3, Baso % (Auto) 0.9, Absolute Neuts (auto) 9.4 H, Absolute Lymphs (auto) 3.86, Nucleated RBC % 0, Sodium 129 L, Potassium 4.1, Chloride 106, Carbon Dioxide 11.0 L, Anion Gap 12, BUN 58 H, Creatinine 4.88 H, Estim Creat Clear Calc 9.04, Est GFR (MDRD) Af Amer 11 L, Est GFR (MDRD) Non-Af 9 L, BUN/Creatinine Ratio 11.9, Glucose 72 L, Calcium 8.0 L Physical Exam Narrative Seen and examined Patient is very weak and frail. Has a history of chronic diarrhea for 8 years after she had C. difficile. She said overnight she had 6 times soiled bedsheet and diaper was changed in ECF. Was admitted with ANNIKA with severe high anion gap metabolic acidosis Patient does not want aggressive management. Physical exam General: Alert, Oriented x3, Cooperative. Frail and fatigued. BMI 19.6 kg/m?. Chronic severe malnutrition HEENT: Atraumatic, PERRLA, EOMI, Normocephalic Oral: Oral mucosa dry. No Gingival or Mucosal Lesions/ Ulcerations Neck: Supple, No JVD, Negative Carotid Bruits Chest wall/Lungs: Air entry diminished in bilateral lung bases. No crepitation/rhonchi Cardiovascular: Regular rate, Regular Rhythm, Normal S1, Normal S2, No M/G/R Abdomen: Bowel Sounds Present, Soft, Non Tender, Non-Distended. No abdominal surgery : No dysuria. No renal angle tenderness. No suprapubic tenderness. Extremities: Mild pitting edema, Capillary Refill Less than 3 Seconds Skin: No rashes, No breakdown Musculoskeletal: Moderate chronic muscle atrophy of extremities, chest wall muscles and intervertebral muscles. No Tenderness to Palpation of Joints or Extremities Neurological: Cranial nerves II-XII grossly intact, DTR 2+/4. No acute focal neurological deficit. Psych/Mental Status: Flat affect. Assessment & Plan Assessment/Plan (1) Metabolic acidosis: PLAN: Plan 69-year-old female was admitted from [facility] for abnormal labs. She had diarrhea. Labs showed elevated WBC count, low bicarb, elevated creatinine. Patient is DNR CC comfort care. 1. ANNIKA with high anion gap severe metabolic acidosis: The patient admitted [facility] floor. BUN 57, creatinine 4.89. Bicarbonate 8 and anion gap 14. Patient was given sodium bicarb Drip x 1 L and then switched to lactated Ringer. started on sodium bicarb 150 mill per hour for 2 L. Has Nguyen catheter. Risk Compliance Analyst is consulted. UA shows WBC more than 100 cells, RBC 50-100, LE 500, nitrite negative. Mild proteinuria. Kidneys and bladder ultrasound ordered. Patient denies new lower urinary tract symptoms including burning micturition increased frequency or urgency. States her urine is very dirty interpret. Patient is allergic to penicillin and cephalosporin with anaphylactic reaction. Previous urine culture shows E. coli and Klebsiella resistant to lexis quinolone. ID consulted because of complicated infection history #2 Elevated white blood cell count-etiology unclear, C. difficile and enteric pathogens: Patient had C. difficile about 8 years ago and was resistant to multiple treatment and at last fecal transplant was recommended but it was during COVID time therefore did not happen. Patient is still has diarrhea. She follows Dr. Melissa and probably has rapid bowel transit. #3 diarrhea-etiology unclear, chronic as mentioned above 4. Chronic debility-patient states she would like to go to a different nursing facility, school social worker made aware of that 5. Chronic seizure/epilepsy disorder-patient is on Keppra 06/04/24 14:50: WBC 19.2 H, RBC 3.17 L, Hgb 9.5 L, Hct 29.7 L, MCV 93.7, MCH 30.0, MCHC 32.0, RDW Std Deviation 50.4 H, RDW Coeff of Xin 14.6, Plt Count 233, MPV 9.7, Immature Gran % (Auto) 1.000 H, Neut % (Auto) 70.5 H, Lymph % (Auto) 19.6, [place] % (Auto) 5.6, Eos % (Auto) 2.4, Baso % (Auto) 0.9, Absolute Neuts (auto) 13.5 H, Absolute Lymphs (auto) 3.76, Nucleated RBC % 0, Sodium 132 L, Potassium 4.5, Chloride 110 H, Carbon Dioxide 8.0 L*, Anion Gap 14, BUN 57 H, Creatinine 4.89 H, Estim Creat Clear Calc 9.51, Est GFR (MDRD) Af Amer 11 L, Est GFR (MDRD) Non-Af 9 L, BUN/Creatinine Ratio 11.7, Glucose 90, Calcium 8.4 L, Total Bilirubin 0.20, AST 11 L, ALT 7 L, Alkaline Phosphatase 95, Total Protein 8.7 H, Albumin 2.4 L, Globulin 6.3 H, Albumin/Globulin Ratio 0.4 L 06/04/24 22:10: Urine Color Yellow, Urine Clarity Turbid, Urine pH 6.0, Ur Specific Edelstein 1.015, Urine Protein 100 H, Urine Glucose (UA) Normal, Urine Ketones Negative, Urine Occult Blood 150 H, Urine Nitrite Negative, Urine Bilirubin Negative, Urine Urobilinogen Normal, Ur Leukocyte Esterase 500 H, Urine RBC 50-100 SEEN, Urine WBC >100 SEEN, Ur Squamous Epith Cells 0 SEEN, Ur Renal Epithelial Cell 0-5 SEEN, Urine Bacteria 2+, Urine Mucus 0 SEEN 06/05/24 04:48: WBC 14.9 H, RBC 2.74 L, Hgb 8.2 L, Hct 24.8 L, MCV 90.5, MCH 29.9, MCHC 33.1, RDW Std Deviation 46.5 H, RDW Coeff of Xin 14.0, Plt Count 209, MPV 9.7, Immature Gran % (Auto) 0.700, Neut % (Auto) 62.6, Lymph % (Auto) 25.9, [place] % (Auto) 6.6, Eos % (Auto) 3.3, Baso % (Auto) 0.9, Absolute Neuts (auto) 9.4 H, Absolute Lymphs (auto) 3.86, Nucleated RBC % 0, Sodium 129 L, Potassium 4.1, Chloride 106, Carbon Dioxide 11.0 L, Anion Gap 12, BUN 58 H, Creatinine 4.88 H, Estim Creat Clear Calc 9.04, Est GFR (MDRD) Af Amer 11 L, Est GFR (MDRD) Non-Af 9 L, BUN/Creatinine Ratio 11.9, Glucose 72 L, Calcium 8.0 L Charges/Coding Visit Charges Inpatient E&M: 97465 Subs Hosp L2
[2024-06-05] MEDS: Sodium Bicarbonate 150 MEQ in Dextrose 5%-Water (1000mL Bag) 1,000 ML IV ×2 (10:27→20:06)
[2024-06-05] MEDS: NORMAL SALINE 0.9% IV (10:46)
[2024-06-05] MEDS: MEROPENEM IV (10:46)
[2024-06-05] MEDS: MethylPREDNISolone 125 MG/2 ML Vial 60 MG IV (10:47)
--- NOTE | 2024-06-05 12:42 | CASEMGMT ---
Addendum entered by Dyana Liang 06/05/24 15:59: Social Work SW spoke with PT/OT after evaluation and update on pt's functional status given (see PT/OT herve). Phone call to pt's dgt Prabha and provided update from therapy. Pt can return home at time of dc from [facility] or return to [facility] with 10 Medicare skilled days available. Prabha appreciative of information, will speak with pt and family and make decision on dc plan and notify SW. LETY Yu Original Note: Social Work SW met with pt and introduced self and role of SW. Pt confirms that she has been staying at [facility] and has been in and out of rehab facilities since October. Pt states that she is about out of Medicare days at SNF. Pt expressing unhappiness with care at [facility] and stating that she wants to return home at time of discharge from [facility]. Pt states that her son Crescencio and his family are staying in her condo. SW inquired if she feels she can return home at this time and care for herself and pt states I will have to figure it out. Pt states that she does not qualify for Medicaid and does not have the financial resources to pay for ECF so will have to dc home. Pt states her children Prabha Prather and Philly will provide assistance at home. With pt permission, phone call placed to dgt Prabha. Prabha confirms that 100th medicare SNF day would have been on 06/12 and dc was scheduled on 06/13. Plan was for pt to return to her home as Prabha verifies pt does not qualify for Medicaid and cannot afford private pay at [facility]. SW discussed discharge options including 1. Return to [facility] from [facility] and finish out 100 days and then return home or 2. Return home from [facility] and [facility] can be set up. SW discussed private duty aids however Prabha states pt cannot afford this and children will have to provide care for pt. While in ED, pt discussed transferring facilities. Since pt is so close to end of SNF days, moving to a new facility for a week or less does not seem to be a viable option. Prabha is in agreement with this. Carol would like to speak with her brother and pt on discharge plan and will then call SW back. SW also provided information to Prabha regarding hospice and palliative care. EDER spoke with Greg at [facility]. Pt discharged from [facility] to [facility] on day 91of 100 of Medicare SNF stay. Pt has 10 available SNF days remaining. Per Greg, pt has been declining at SNF and recently refusing to complete therapy. SW to continue to follow for dc planning. Will await return call from Prabha on plan for discharge. LETY Yu
--- NOTE | 2024-06-05 15:43 | CON.PCM.ID_ITS ---
Assessment & Plan Assessment/Plan (1) Leukocytosis: PLAN: Ucx with GNR, wbc improved, cont meropenem, adjusting dose. Will follow, thank you HPI Consult Data Date of Consult: 06/05/24 HPI Narrative Reason for Consultation: uti HPI Narrative: RED PRICE, is a 69 F who presented from [facility] with acute onset not feeling well, abnormal labs, some diarrhea. No fever, no abd pain, no n/v. Admitted, now on meropenem, feeling better. Full ROS performed and neg except as noted above. [facility] Medical History Anemia in chronic illness Non-pressure chronic ulcer of left heel and midfoot with fat layer exposed PAD (peripheral artery disease) Neurapraxia History of benign brain tumor Type 2 diabetes mellitus with other skin ulcer Type 2 diabetes mellitus with foot ulcer Chronic deep vein thrombosis (DVT) of left lower extremity IBS (irritable bowel syndrome) Peripheral vascular disease, unspecified Non-pressure chronic ulcer of other part of right foot with fat layer exposed Asthma Malnutrition Difficulty in walking, not elsewhere classified Gastroparesis Acute renal insufficiency Urge incontinence Hydronephrosis Unable to ambulate Generalized weakness Non-pressure chronic ulcer of other part of right foot with fat layer exposed History of myocardial infarction History of cerebrovascular accident History of deep venous thrombosis (DVT) of distal vein of left lower extremity History of ischemic colitis Ulcer of amputation stump of foot Wound of left foot PAD (peripheral artery disease) Deep venous thrombosis of distal end of left lower extremity Type 2 diabetes mellitus with diabetic polyneuropathy Gastroesophageal reflux disease Osteoarthritis of cervical and lumbar spine Chronic diarrhea Brain tumor (benign) Diabetic foot ulcer Debility History of pneumonia Migraine Home Medications ?Medication ?Instructions ?Recorded ?Last Taken ?Type folic acid 1 mg tablet 1 mg PO DAILY SUPPLEMENT #30 tabs 02/15/23 04/09/23 Rx Lactobacillus rhamnosus GG 10 1 cap PO DAILY [facility] 04/10/23 04/09/23 History billion cell capsule (Culturelle) pantoprazole 40 mg tablet,delayed 40 mg PO DAILY GERD 04/10/23 02/02/24 06:00 History release acetaminophen 500 mg tablet 1,000 mg PO Q6H PRN Pain Score 1-5 04/25/24 Unknown History albuterol sulfate 90 mcg/actuation 1 puff inhalation Q4H PRN 04/25/24 Unknown History aerosol inhaler (Ventolin HFA) SHORTNESS OF BREATH camphor-menthol 0.2 %-3.5 % 1 applic topical BID pain 04/25/24 Unknown History topical gel (Freeze It Relief) ergocalciferol (vitamin D2) 1,250 1,250 mcg PO WE SUPPLEMENT 04/25/24 05/29/24 History mcg (50,000 unit) capsule food supplemt, lactose-reduced 120 ml PO TID 04/25/24 Unknown History 0.04 gram-1.05 kcal/mL oral liquid (Boost Breeze Nutritional) levetiracetam 250 mg tablet 250 mg PO BID EPILEPSY 04/25/24 Unknown History (Keppra) melatonin 3 mg tablet 3 mg PO QHS PRN SLEEP 04/25/24 Unknown History ondansetron 4 mg disintegrating 4 mg PO Q6H PRN NAUSEA 04/25/24 Unknown History tablet cyclobenzaprine 5 mg tablet 5 mg PO TID PRN MUSCLE SPASMS #0 04/28/24 Unknown Rx tabs Allergy/AdvReac Type Severity Reaction Status Date / Time cefprozil Allergy Shortness Verified 06/04/24 12:47 of breath ceftriaxone Allergy Hives Verified 06/04/24 12:47 clindamycin Allergy Rash Verified 06/04/24 12:47 enalapril Allergy Other Verified 06/04/24 12:47 enoxaparin Allergy Rash Verified 06/04/24 12:47 heparin Allergy Rash Verified 06/04/24 12:47 levalbuterol Allergy Other Verified 06/04/24 12:47 morphine Allergy Shortness Verified 06/04/24 12:47 of breath Penicillins Allergy Anaphylaxis Verified 06/04/24 12:47 valsartan Allergy Other Verified 06/04/24 12:47 vancomycin Allergy Rash Verified 06/04/24 12:47 atorvastatin AdvReac Other Verified 06/04/24 12:47 rosuvastatin (From Crestor) AdvReac Other Verified 06/04/24 12:47 Family History Mother Cancer Lung CA w/ tobacco use history. Diabetes COPD (chronic obstructive pulmonary disease) Father Cancer Lung CA w/ tobacco use history. Diabetes COPD (chronic obstructive pulmonary disease) Heart disease Surgical History Status post transmetatarsal amputation of left foot History of eye surgery History of lumpectomy History of foot surgery History of tubal ligation History of appendectomy Tubal ligation status Social History household members: none Smoking Status: Never smoker alcohol intake: never substance use type: does not use Physical Exam Const alert and no apparent distress General Appearance: cooperative HEENT normocephalic and head/scalp atraumatic Eyes PERRL and EOMs intact bilaterally Neck supple and No nodes Resp normal air movement and clear to auscultation bilaterally Cardio regular rate and regular rhythm GI soft to palpation, non-tender and non-distended Extremity General Extremity: Negative for edema Skin no rashes or lesions noted Neuro CN's II-XII intact bilaterally Lab / Micro Data Attestation: I reviewed the patient's lab results. 06/05/24 04:48 06/05/24 04:48 Labs: Laboratory Results - last 24 hr 06/04/24 22:10: Urine Color Yellow, Urine Clarity Turbid, Urine pH 6.0, Ur Specific [place] 1.015, Urine Protein 100 H, Urine Glucose (UA) Normal, Urine Ketones Negative, Urine Occult Blood 150 H, Urine Nitrite Negative, Urine Bilirubin Negative, Urine Urobilinogen Normal, Ur Leukocyte Esterase 500 H, Urine RBC 50-100 SEEN, Urine WBC >100 SEEN, Ur Squamous Epith Cells 0 SEEN, Ur Renal Epithelial Cell 0-5 SEEN, Urine Bacteria 2+, Urine Mucus 0 SEEN 06/05/24 04:48: WBC 14.9 H, RBC 2.74 L, Hgb 8.2 L, Hct 24.8 L, MCV 90.5, MCH 29.9, MCHC 33.1, RDW Std Deviation 46.5 H, RDW Coeff of Xin 14.0, Plt Count 209, MPV 9.7, Immature Gran % (Auto) 0.700, Neut % (Auto) 62.6, Lymph % (Auto) 25.9, [place] % (Auto) 6.6, Eos % (Auto) 3.3, Baso % (Auto) 0.9, Absolute Neuts (auto) 9.4 H, Absolute Lymphs (auto) 3.86, Nucleated RBC % 0, Sodium 129 L, Potassium 4.1, Chloride 106, Carbon Dioxide 11.0 L, Anion Gap 12, BUN 58 H, Creatinine 4.88 H, Estim Creat Clear Calc 9.04, Est GFR (MDRD) Af Amer 11 L, Est GFR (MDRD) Non-Af 9 L, BUN/Creatinine Ratio 11.9, Glucose 72 L, Calcium 8.0 L Micro: Microbiology 06/04/24 22:10 Urine Catheter - Catheter Urine Culture - Preliminary Gram negative bakari
--- NOTE | 2024-06-05 16:06 | PCM.CONS.R ---
Assessment & Plan Assessment/Plan (1) Hyponatremia: PLAN: Hypovolemic hyponatremia due to ongoing diarrhea and acute kidney injury (2) Metabolic acidosis: PLAN: Most of it is not an anion gap metabolic acidosis due to bicarb losses via GI tract and that should be corrected with IV bicarb drip and volume expansion (3) Acute kidney injury superimposed on chronic kidney disease: PLAN: Acute kidney injury secondary to ischemic ATN due to renal hypoperfusion. This is her second or third episode with a similar presentation, usually she improves with IV fluids No dialysis indicated, will continue with bicarb drip, monitor labs as she will need probably potassium replacement HPI Consult Data Date of Consult: 06/05/24 HPI Narrative Reason for Consultation: Acute kidney injury, metabolic acidosis HPI Narrative: RED PRICE, is a 69 F who has a normal immune normal underlying kidney function with creatinine being as low as 0.9 just about a month and a half ago. She was admitted yesterday after 4 days of having profound diarrhea, decreased oral food and fluid intake she was found to have abnormal labs. She had similar episode back in January when I saw her in consultation in a month later. Her creatinine would go as high as 3.5. This time around she has got some abdominal back and flank pain associated with ongoing diarrhea, some nausea and vomiting and decreased oral intake. She was found to have creatinine of 4, bicarb of 8 and anion gap of 14. No hyperkalemia. She has no signs of fluid overload, blood pressure is soft, urine showed some protein and a lot of bacteria's, 11 WBCs. Patient does have significant leukocytosis. Started on bicarb drip, creatinine is stable at 4.8, acidosis is improving. [facility] Medical History Anemia in chronic illness Non-pressure chronic ulcer of left heel and midfoot with fat layer exposed PAD (peripheral artery disease) Neurapraxia History of benign brain tumor Type 2 diabetes mellitus with other skin ulcer Type 2 diabetes mellitus with foot ulcer Chronic deep vein thrombosis (DVT) of left lower extremity IBS (irritable bowel syndrome) Peripheral vascular disease, unspecified Non-pressure chronic ulcer of other part of right foot with fat layer exposed Asthma Malnutrition Difficulty in walking, not elsewhere classified Gastroparesis Acute renal insufficiency Urge incontinence Hydronephrosis Unable to ambulate Generalized weakness Non-pressure chronic ulcer of other part of right foot with fat layer exposed History of myocardial infarction History of cerebrovascular accident History of deep venous thrombosis (DVT) of distal vein of left lower extremity History of ischemic colitis Ulcer of amputation stump of foot Wound of left foot PAD (peripheral artery disease) Deep venous thrombosis of distal end of left lower extremity Type 2 diabetes mellitus with diabetic polyneuropathy Gastroesophageal reflux disease Osteoarthritis of cervical and lumbar spine Chronic diarrhea Brain tumor (benign) Diabetic foot ulcer Debility History of pneumonia Migraine Home Medications ?Medication ?Instructions ?Recorded ?Last Taken ?Type folic acid 1 mg tablet 1 mg PO DAILY SUPPLEMENT #30 tabs 02/15/23 04/09/23 Rx Lactobacillus rhamnosus GG 10 1 cap PO DAILY [facility] 04/10/23 04/09/23 History billion cell capsule (Culturelle) pantoprazole 40 mg tablet,delayed 40 mg PO DAILY GERD 04/10/23 02/02/24 06:00 History release acetaminophen 500 mg tablet 1,000 mg PO Q6H PRN Pain Score 1-5 04/25/24 Unknown History albuterol sulfate 90 mcg/actuation 1 puff inhalation Q4H PRN 04/25/24 Unknown History aerosol inhaler (Ventolin HFA) SHORTNESS OF BREATH camphor-menthol 0.2 %-3.5 % 1 applic topical BID pain 04/25/24 Unknown History topical gel (Freeze It Relief) ergocalciferol (vitamin D2) 1,250 1,250 mcg PO WE SUPPLEMENT 04/25/24 05/29/24 History mcg (50,000 unit) capsule food supplemt, lactose-reduced 120 ml PO TID 04/25/24 Unknown History 0.04 gram-1.05 kcal/mL oral liquid (Boost Breeze Nutritional) levetiracetam 250 mg tablet 250 mg PO BID EPILEPSY 04/25/24 Unknown History (Keppra) melatonin 3 mg tablet 3 mg PO QHS PRN SLEEP 04/25/24 Unknown History ondansetron 4 mg disintegrating 4 mg PO Q6H PRN NAUSEA 04/25/24 Unknown History tablet cyclobenzaprine 5 mg tablet 5 mg PO TID PRN MUSCLE SPASMS #0 04/28/24 Unknown Rx tabs Allergy/AdvReac Type Severity Reaction Status Date / Time cefprozil Allergy Shortness Verified 06/04/24 12:47 of breath ceftriaxone Allergy Hives Verified 06/04/24 12:47 clindamycin Allergy Rash Verified 06/04/24 12:47 enalapril Allergy Other Verified 06/04/24 12:47 enoxaparin Allergy Rash Verified 06/04/24 12:47 heparin Allergy Rash Verified 06/04/24 12:47 levalbuterol Allergy Other Verified 06/04/24 12:47 morphine Allergy Shortness Verified 06/04/24 12:47 of breath Penicillins Allergy Anaphylaxis Verified 06/04/24 12:47 valsartan Allergy Other Verified 06/04/24 12:47 vancomycin Allergy Rash Verified 06/04/24 12:47 atorvastatin AdvReac Other Verified 06/04/24 12:47 rosuvastatin (From Crestor) AdvReac Other Verified 06/04/24 12:47 Family History Mother Cancer Lung CA w/ tobacco use history. Diabetes COPD (chronic obstructive pulmonary disease) Father Cancer Lung CA w/ tobacco use history. Diabetes COPD (chronic obstructive pulmonary disease) Heart disease Surgical History Status post transmetatarsal amputation of left foot History of eye surgery History of lumpectomy History of foot surgery History of tubal ligation History of appendectomy Tubal ligation status Social History household members: none Smoking Status: Never smoker alcohol intake: never substance use type: does not use ROS Constitutional Constitutional: Reports malaise, weakness and weight loss Eyes Eyes: Denies blindness, blurry vision, change in vision, discongugate gaze, double vision, dry eyes or loss of vision ENT HEENT: Reports dry mouth Cardiovascular Cardiovascular: Denies chest pain, claudication, diaphoresis, dyspnea on exertion, edema, irregular heart rhythm, leg edema, orthopnea, palpitations or syncope Respiratory/Chest Respiratory/Chest: Denies dry cough, dyspnea on exertion, hemoptysis, portable oxygen @ home, productive cough, shortness of breath at rest or wheezing Gastrointestinal Gastrointestinal: Reports abdominal pain, anorexia, diarrhea and nausea Genitourinary Genitourinary: Reports flank pain; Denies change in urinary stream, difficulty urinating, dribbling, dysuria, hematuria, nocturia, oliguria, post void dribbling, urinary frequency, urinary hesitancy, urinary incontinence or urinary urgency Physical Exam Const alert, oriented x3, no apparent distress and average body habitus General Appearance: frail Orientation / Consciousness: oriented to person, oriented to place and oriented to time Nutritional Appearance: cachectic HEENT normocephalic Head and Scalp: atraumatic Neck no lymphadenopathy Resp no use of accessory muscles and clear to auscultation bilaterally Cardio regular rate and no rub GI non-tender and non-distended Auscultation: normoactive bowel sounds no CVA tenderness Psych cooperative Medical Records Data Attestation: I reviewed the patient's medical records Lab / Micro Data Attestation: I reviewed the patient's lab results. 06/05/24 04:48 06/05/24 04:48 Labs: Laboratory Results - last 24 hr 06/04/24 22:10: Urine Color Yellow, Urine Clarity Turbid, Urine pH 6.0, Ur Specific [place] 1.015, Urine Protein 100 H, Urine Glucose (UA) Normal, Urine Ketones Negative, Urine Occult Blood 150 H, Urine Nitrite Negative, Urine Bilirubin Negative, Urine Urobilinogen Normal, Ur Leukocyte Esterase 500 H, Urine RBC 50-100 SEEN, Urine WBC >100 SEEN, Ur Squamous Epith Cells 0 SEEN, Ur Renal Epithelial Cell 0-5 SEEN, Urine Bacteria 2+, Urine Mucus 0 SEEN 06/05/24 04:48: WBC 14.9 H, RBC 2.74 L, Hgb 8.2 L, Hct 24.8 L, MCV 90.5, MCH 29.9, MCHC 33.1, RDW Std Deviation 46.5 H, RDW Coeff of Xin 14.0, Plt Count 209, MPV 9.7, Immature Gran % (Auto) 0.700, Neut % (Auto) 62.6, Lymph % (Auto) 25.9, [place] % (Auto) 6.6, Eos % (Auto) 3.3, Baso % (Auto) 0.9, Absolute Neuts (auto) 9.4 H, Absolute Lymphs (auto) 3.86, Nucleated RBC % 0, Sodium 129 L, Potassium 4.1, Chloride 106, Carbon Dioxide 11.0 L, Anion Gap 12, BUN 58 H, Creatinine 4.88 H, Estim Creat Clear Calc 9.04, Est GFR (MDRD) Af Amer 11 L, Est GFR (MDRD) Non-Af 9 L, BUN/Creatinine Ratio 11.9, Glucose 72 L, Calcium 8.0 L Micro: Microbiology 06/04/24 22:10 Urine Catheter - Catheter Urine Culture - Preliminary Gram negative bakari
[2024-06-05 17:39] VITALS: BP 147/70; PULSE 84; RESP 16; TEMP 36.9; O2SAT 99
[2024-06-05] MEDS: cycloBENZAPRine HCl 5 MG TABLET PO (20:14)
[2024-06-05 20:16] VITALS: BP 178/80; PULSE 81; RESP 16; TEMP 36.6; O2SAT 98
[2024-06-05 21:32] VITALS: BP 168/76; PULSE 71; RESP 16; TEMP 36.6; O2SAT 96
[2024-06-05 21:34] VITALS: BP 168/76; PULSE 71
[2024-06-05] MEDS: 0.9% Saline Lock 10 ML Syringe IV (21:34)
[2024-06-05] MEDS: hydrALAZINE 20 MG/ML Vial 10 MG IV (21:34)
[2024-06-06] VITALS (7 sets, daily range): BP systolic 132–180; BP diastolic 56–82; PULSE 70–87; RESP 16–18; TEMP 36.6–37; O2SAT 96–99
--- NOTE | 2024-06-06 02:03 | PCM.HOSP.N ---
Hospitalist Note Cdiff returned positive, will start oral vanc. Noted reaction of rash but discussed with patient and willing to trial. Will continue to monitor.
--- NOTE | 2024-06-06 03:34 | NURSING ---
pt refusing PO Vanco at this time. Pt states she wants to talk to her GI doctor, , before she takes medication because she has been on it before but states their is a certain regiment she needs to take with the Ingrido per .
[2024-06-06] MEDS: Menthol/Lanolin/Calamine/Znox 113 GM Tube 1 APPLIC TOPICAL ×3 (06:10→22:35)
[2024-06-06] MEDS: 0.9% Saline Lock 10 ML Syringe IV ×3 (06:22→22:35)
[2024-06-06] MEDS: hydrALAZINE 20 MG/ML Vial 10 MG IV (06:23)
[2024-06-06] MEDS: Acetaminophen 325 MG Tablet 650 MG PO ×2 (06:23→16:27)
[2024-06-06 07:26] LABS: Absolute Lymphocyte Count 1.43 X10^3/uL (0.83-4.51); Absolute Neutrophil Count 6.9 X10^3/uL (2.0-7.7); Basophil# 0.01 X10^3/uL; Basophil% 0.1 % (0-1); Hemoglobin 8.7 g/dL (12.0-15.0); Lymphocyte # 1.43 X10^3/ul (0.83-4.51); Lymphocyte % 16.5 % (19-41); Mean Corp Hgb Conc 34.8 g/dL (32-36); Mean Corpuscular Hgb 30.5 pg (27.0-32.0); Mean Corpuscular Volume 87.7 fL (81-99); Mean Platelet Vol. 10.2 fl (6.2-12.0); Monocyte# 0.28 X10^3/uL; Monocyte% 3.2 % (0-10); NRBC Flagged by Analyzer 0 % (0-5); Neutrophil # 6.92 X10^3/uL (2.7-7.7); Neutrophil % 79.7 % (47-70); Platelet Count 249 K/mm3 (150-450); RBC Distribution Width CV 13.8 % (11.6-14.6); RBC Distribution Width SD 44.5 fl (35.1-43.9); Red Blood Count 2.85 M/mm3 (4.2-5.4); White Blood Count 8.7 K/mm3 (4.4-11.0)
[2024-06-06 07:57] LABS: Anion Gap 13 (5-15); BUN 61 mg/dL (7-18); BUN/Creat Ratio 12.7 RATIO (10-20); Calcium,Total 7.7 mg/dL (8.5-10.1); Chloride 101 mmol/L (98-107); Creatinine, Serum 4.79 mg/dL (0.55-1.02); EST Glomerular Filtration Rate 10 mL/min (>60); Est Glom Filt Rate - Afr Amer 12 mL/min (>60); Estimated Creatinine Clearance 9.21 ml/min; Glucose 232 mg/dL (74-106); Potassium 3.8 mmol/L (3.5-5.1); Sodium Level 130 mmol/L (136-145)
[2024-06-06] MEDS: levETIRAcetam 250 MG Tablet PO ×2 (11:43→22:35)
[2024-06-06] MEDS: Pantoprazole Sodium 40 MG Tablet PO (11:43)
--- NOTE | 2024-06-06 13:05 | PCM.PN.REN ---
Subjective Subjective Sitting up in bed eating lunch. Denies any nausea or vomiting. No overnight events. Objective Data Objective Data Vital Signs: Vital Signs Temp Pulse Resp BP Pulse Ox O2 Del Method 98.0 F 87 18 132/66 H 97 Room Air 06/06/24 08:42 06/06/24 08:42 06/06/24 08:42 06/06/24 08:42 06/06/24 08:42 06/06/24 08:42 Oxygen Delivery Method Room Air Weight: 51.9 kg Body Mass Index (BMI) 19.6 Intake & Output: Intake and Output for Last 24 Hours 06/04/24 06/05/24 06/06/24 23:59 23:59 23:59 Intake Total 3250.0 / 3250.0 1150 / 1150 Output Total 750 / 1050 700 / 700 Balance 2500.0 / 2200.0 450 / 450 Lab / Micro Data 06/06/24 06:46 06/06/24 06:46 Labs: Laboratory Results - last 24 hr 06/06/24 06:46: WBC 8.7, RBC 2.85 L, Hgb 8.7 L, Hct 25.0 L, MCV 87.7, MCH 30.5, MCHC 34.8 D, RDW Std Deviation 44.5 H, RDW Coeff of Xin 13.8, Plt Count 249, MPV 10.2, Immature Gran % (Auto) 0.500, Neut % (Auto) 79.7 H, Lymph % (Auto) 16.5 L, [place] % (Auto) 3.2, Eos % (Auto) 0.0, Baso % (Auto) 0.1, Absolute Neuts (auto) 6.9, Absolute Lymphs (auto) 1.43, Nucleated RBC % 0, Sodium 130 L, Potassium 3.8, Chloride 101, Carbon Dioxide 16.0 L, Anion Gap 13, BUN 61 H, Creatinine 4.79 H, Estim Creat Clear Calc 9.21, Est GFR (MDRD) Af Amer 12 L, Est GFR (MDRD) Non-Af 10 L, BUN/Creatinine Ratio 12.7, Glucose 232 H, Calcium 7.7 L Micro: Microbiology 06/04/24 22:10 Urine Catheter - Catheter Urine Culture - Preliminary Klebsiella oxytoca 06/05/24 19:00 Stool Enteric Bacteriology - Final 06/05/24 19:00 Stool C. difficile GDH Antigen & Toxins - Final 06/05/24 19:00 Stool Clostridioides difficile (PCR) - Final Radiography Diagnostic Testing: Radiology Impression Renal Ultrasound 06/04/24 16:06 IMPRESSION: Unremarkable kidneys and urinary bladder. Electronically Signed: Chuy Roberto MD at 1:47 EDT , Physical Exam Narrative Alert and oriented, no apparent distress S1, S2, RRR Lung sounds clear Abdomen soft, nontender No edema Nguyen with clear yellow urine in bag Assessment & Plan Assessment/Plan (1) Hyponatremia: (2) Metabolic acidosis: (3) Acute kidney injury superimposed on chronic kidney disease: PLAN: - Acute kidney injury secondary to ischemic ATN due to renal hypoperfusion. Patient has had multiple similar presentations, usually she improves with IV fluids. Patient has never required any IN HOME SALES REPRESENTATIVE. Baseline serum creatinine has been ~1mg/dL. Renal ultrasound no hydro. No acute indication for IN HOME SALES REPRESENTATIVE at this time. Bicarb improved, potassium acceptable. Patient is not hypervolemic. No significant uremic symptoms. Patient has adequate urine output. Will continue to follow labs. Serum creatinine peaked 4.89 on 06/04, today creatinine 4.79. We will continue IV bicarb drip for another day. Labs ordered for the morning. - Metabolic acidosis due to loss. Her GI tract. Bicarb improved with bicarb drip and volume expansion. Bicarb was 8.0 on admission and today 16.0. - Hypovolemic hyponatremia secondary to ongoing diarrhea and ANNIKA. Sodium 130 today. - Positive C. difficile. Urine culture Klebsiella. On IV meropenem. Blood cultures pending.
--- NOTE | 2024-06-06 13:30 | CHAPLAIN ---
Type of Pastoral Visit _x__ Initial Visit ___ Follow-up Visit ___ On-call Visit ___ General Patient Visit ___ Spiritual Assessment ___ Family Conference ___ Bereavement ___ Rapid Response ___ Code Blue ___ Other (describe below) Pastoral Care Referral From _x__ Patient _x__ Family ___ Nurse ___ Physician ___ Technical Sales Engineer ___ Tube Builder Airplane ___ Other (describe below) Sacrament/Intervention _x__ Active listening ___ Anointing ___ Pentecostal ___ Bereavement ___ Communion _x__ Dang exploration ___ ___ Life review _x__ Prayer ___ Reconciliation ___ Sacrament of Sick _x__ Supportive presence ___ Wedding ___ Other (describe below) Pastoral Comments patient has specific prayer concerns about getting answers for possible procedures and quick evaluations for the same; daughter is also in the conversation before she had to leave; prayer and presence
--- NOTE | 2024-06-06 13:39 | CASEMGMT ---
Social Work Per MD, pt requesting hospice this morning. SW met with pt and dgt Carol to discuss discharge plan. SW reviewed with pt and dgt discharge options as discussed previously. SW explained hospice philosophy, the inpatient hospice unit, home with hospice and ECF with hospice. SW also explained options of dc home with home health, return to [facility] at skilled level of care to finish last 10 days of skilled stay for therapy and rehab, and moving to a new nursing facility for 10 days until Medicare Skilled Benefit is exhausted. A list of SNF providers including quality and resource use data and consistent with the patient?s preferred geographic region, medical needs, and insurance network were provided from the [facility] Guide. After much discussion and exploration of pt's goals and feelings, pt and dgt are agreeable to return to [facility] to complete rehab stay. Pt does not want hospice at this time. Clinical updates to be sent to [facility] to confirm they will be able to accept pt back when she is medically ready. RN in the room during conversation with pt. RN to notify physician of pt's decision to not move forward with hospice referral. Plan: Return to [facility], when medically ready LETY Yu
[2024-06-06] MEDS: Sodium Bicarbonate 150 MEQ in Dextrose 5%-Water (1000mL Bag) 1,000 ML 100 MEQ IV (15:34)
--- NOTE | 2024-06-06 15:44 | PCM.PN.HOSP ---
Reason for Visit Reason for Visit: Diagnoses Elevated white blood cell count, unspecified (06/04/24) Hypo-osmolality and hyponatremia (06/04/24) Acidosis, unspecified (06/04/24) Acute kidney failure, unspecified (06/04/24) Chronic kidney disease, unspecified (06/04/24) Objective Data Objective Data Vital Signs: Vital Signs Temp Pulse Resp BP Pulse Ox O2 Del Method 98.0 F 87 18 132/66 H 97 Room Air 06/06/24 08:42 06/06/24 08:42 06/06/24 08:42 06/06/24 08:42 06/06/24 08:42 06/06/24 08:42 Oxygen Delivery Method Room Air Weight: 114 lb 6.719 oz Body Mass Index (BMI) 19.6 Intake & Output: Intake and Output for Last 24 Hours 06/04/24 06/05/24 06/06/24 23:59 23:59 23:59 Intake Total 3250.0 / 3250.0 1150 / 1150 Output Total 750 / 1050 700 / 700 Balance 2500.0 / 2200.0 450 / 450 Lab / Micro Data 06/06/24 06:46 06/06/24 06:46 Labs: Laboratory Results - last 24 hr 06/06/24 06:46: WBC 8.7, RBC 2.85 L, Hgb 8.7 L, Hct 25.0 L, MCV 87.7, MCH 30.5, MCHC 34.8 D, RDW Std Deviation 44.5 H, RDW Coeff of Xin 13.8, Plt Count 249, MPV 10.2, Immature Gran % (Auto) 0.500, Neut % (Auto) 79.7 H, Lymph % (Auto) 16.5 L, Coffey % (Auto) 3.2, Eos % (Auto) 0.0, Baso % (Auto) 0.1, Absolute Neuts (auto) 6.9, Absolute Lymphs (auto) 1.43, Nucleated RBC % 0, Sodium 130 L, Potassium 3.8, Chloride 101, Carbon Dioxide 16.0 L, Anion Gap 13, BUN 61 H, Creatinine 4.79 H, Estim Creat Clear Calc 9.21, Est GFR (MDRD) Af Amer 12 L, Est GFR (MDRD) Non-Af 10 L, BUN/Creatinine Ratio 12.7, Glucose 232 H, Calcium 7.7 L Micro: Microbiology 06/04/24 22:10 Urine Catheter - Catheter Urine Culture - Preliminary Klebsiella oxytoca 06/05/24 19:00 Stool Enteric Bacteriology - Final 06/05/24 19:00 Stool C. difficile GDH Antigen & Toxins - Final 06/05/24 19:00 Stool Clostridioides difficile (PCR) - Final Radiography Diagnostic Testing: Radiology Impression Renal Ultrasound 06/04/24 16:06 IMPRESSION: Unremarkable kidneys and urinary bladder. Electronically Signed: Chuy Roberto MD at 1:47 EDT , Physical Exam Narrative Seen and examined Her diarrhea is better. She wanted to see fish filleter Dr. Melissa to further discussion options regarding chronic diarrhea before opting for hospice care. GI consulted Patient is very weak and frail. Has a history of chronic diarrhea for 8 years after she had C. difficile. Was admitted with ANNIKA with severe high anion gap metabolic acidosis. History of meningioma status postradiation Patient does not want aggressive management. Physical exam General: Alert, Oriented x3, Cooperative. Frail and fatigued. BMI 19.6 kg/m?. Chronic severe malnutrition HEENT: Atraumatic, PERRLA, EOMI, Normocephalic Oral: Oral mucosa moist. No Gingival or Mucosal Lesions/ Ulcerations Neck: Supple, No JVD, Negative Carotid Bruits Chest wall/Lungs: Air entry diminished in bilateral lung bases. No crepitation/rhonchi Cardiovascular: Regular rate, Regular Rhythm, Normal S1, Normal S2, No M/G/R Abdomen: Bowel Sounds Present, Soft, Non Tender, Non-Distended. No abdominal surgery : No dysuria. No renal angle tenderness. No suprapubic tenderness. Extremities: Mild pitting edema, Capillary Refill Less than 3 Seconds Skin: No rashes, No breakdown Musculoskeletal: Moderate chronic muscle atrophy of extremities, chest wall muscles and intervertebral muscles. No Tenderness to Palpation of Joints or Extremities Neurological: Cranial nerves II-XII grossly intact, DTR 2+/4. No acute focal neurological deficit. Psych/Mental Status: Flat affect. Assessment & Plan Assessment/Plan (1) Metabolic acidosis: PLAN: Plan 69-year-old female was admitted from [facility] for abnormal labs. She had diarrhea. Labs showed elevated WBC count, low bicarb, elevated creatinine. Patient is DNR CC comfort care. 1. ANNIKA with high anion gap severe metabolic acidosis: The patient admitted MedSurg floor. BUN 57, creatinine 4.89. Bicarbonate 8 and anion gap 14. Patient was given sodium bicarb Drip x 1 L and then switched to lactated Ringer. started on sodium bicarb 150 mill per hour for 2 L. Has Nguyen catheter. Family Educator is consulted. UA shows WBC more than 100 cells, RBC 50-100, LE 500, nitrite negative. Mild proteinuria. Kidneys and bladder ultrasound ordered. Patient denies new lower urinary tract symptoms including burning micturition increased frequency or urgency. States her urine is very dirty interpret. Patient is allergic to penicillin and cephalosporin with anaphylactic reaction. Previous urine culture shows E. coli and Klebsiella resistant to lexis quinolone. ID consulted because of complicated infection history 06/06: BUNs/creatinine 61/4.79. Discussed with the pharmacovigilance specialist. Continue IV fluid bicarb drip. Electrolytes shows low sodium hyponatremia 130, potassium normal. High anion gap metabolic acidosis, bicarb low at 16 with anion gap 13. Improvement in sodium and metabolic acidosis #2 Elevated white blood cell count-etiology unclear, C. difficile and enteric pathogens: Patient had C. difficile about 8 years ago and was resistant to multiple treatment and at last fecal transplant was recommended but it was during COVID time therefore did not happen. Patient is still has diarrhea. She follows Dr. Melissa and probably has rapid bowel transit. 06/06: WBC count is normal. C. difficile PCR and antigen A and B+ but toxin is negative therefore she has chronic history of C. difficile. Diarrhea is better. Patient does not want to vancomycin overall therefore discontinued #3 diarrhea-etiology unclear, chronic as mentioned above 06/06: Patient wants to see GI doctor friend therefore consulted 4. Chronic debility-patient states she would like to go to a different nursing facility, health and social care teacher made aware of that 5. Chronic seizure/epilepsy disorder-patient is on Keppra Microbiology Past 72 Hours 06/04/24 22:10 Urine Catheter - Catheter Urine Culture - Preliminary Klebsiella oxytoca 06/05/24 19:00 Stool Enteric Bacteriology - Final 06/05/24 19:00 Stool C. difficile GDH Antigen & Toxins - Final 06/05/24 19:00 Stool Clostridioides difficile (PCR) - Final Charges/Coding Visit Charges Inpatient E&M: 67822 Subs Hosp L2
--- NOTE | 2024-06-06 16:31 | NURSING ---
Despite Education on Merrem IV multiple times pt continues to refuse the Antibotic until she talks to Doctor Friend. This RN attempted to ask him over Cortext and he did not address it.
--- NOTE | 2024-06-06 19:19 | EX.PCM.CON.G ---
HPI Consult Data Date of Consult: 06/06/24 HPI Narrative Reason for Consultation: Diarrhea HPI Narrative: RED PRICE, RED PRICE, is a 69 F who is well-known to the GI service. I got to know her for the first time in 2020 consultation for lower GI bleeding. She was doing typhlitis having ischemic colitis and was later identified as having C. difficile colitis. She was treated accordingly. We also diagnosed her with gastroparesis and she has been having diarrhea for the last several months. 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 She has had C. difficile colitis at least 3 times with the last cultures for her did not reveal any antigen although the PCR was positive. She has been having diarrhea for the last 4 weeks that seems like her C. difficile came back. From her multiple episodes of C. difficile she was placed on budesonide for the treatment of collagenous colitis that was identified on subsequent colonoscopy. She also Lomotil as needed for worsening diarrhea. At this time she is very nauseous. She presented to the emergency room at [facility] after being sent in from a local extended care facility at which she is receiving skilled services due to abnormal labs which were drawn this morning. Patient also stated that she had diarrhea. Labs showed an elevated white blood cell count as well as a low bicarbonate and an elevated creatinine. Patient states that she is a comfort care but when I talked with her in the emergency room about treating her in the hospital she stated that she is in agreement to come into the hospital if she needs treatment, she does not want any intubation or CPR. I had her labs repeated, it revealed a white blood cell count of 19 and a hemoglobin of 9.5, chemistry was abnormal for a bicarb of 8, creatinine of 4.89 and a BUN of 57. Patient's sodium was slightly low but this was not significant. C. diff Ag Positive C. diff A/B Antigen C. diff Toxin Negative C. diff Toxin Interpretation of C. diff by EIA Method POS for Antigen and NEG for Toxin = Positive for toxigenic C. Difficile gene but the active toxin production NOT detected. May be a colonized carrier or toxin level is below limit of detection. CDIFF (PCR) Final 06/06/24-0017 C. Diff PCR Positive-Toxigenic C. Difficile Detected 027 [id number] [id number] Presumptive Negative *for epidemiolologic?use A positive C. difficile molecular test does not differentiate between an active C. difficile infection and C. difficile colonization. Use clinical judgement and paired toxin/antigen testing to identify true infection and need for treatment. 02/02/2024 EGD Impressions : - LA Grade C erosive esophagitis with bleeding. Treated with a heater probe. - Esophageal ulcer with no stigmata of recent bleeding. Biopsied. - Medium-sized hiatal hernia. - Normal second portion of the duodenum. 02/08/2024 Colonoscopy: Impressions : - One 4 mm polyp at the hepatic flexure, removed with a cold snare. Resected and retrieved. - Diverticulosis in the recto-sigmoid colon, in the sigmoid colon and in the descending colon. - Localized moderate inflammation was found in the ascending colon secondary to colitis. Biopsied. 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 layer exposed PAD (peripheral artery disease) Neurapraxia History of benign brain tumor Type 2 diabetes mellitus with other skin ulcer Type 2 diabetes mellitus with foot ulcer Chronic deep vein thrombosis (DVT) of left lower extremity IBS (irritable bowel syndrome) Peripheral vascular disease, unspecified Non-pressure chronic ulcer of other part of right foot with fat layer exposed Asthma Malnutrition Difficulty in walking, not elsewhere classified Gastroparesis Acute renal insufficiency Urge incontinence Hydronephrosis Unable to ambulate Generalized weakness Non-pressure chronic ulcer of other part of right foot with fat layer exposed History of myocardial infarction History of cerebrovascular accident History of deep venous thrombosis (DVT) of distal vein of left lower extremity History of ischemic colitis Ulcer of amputation stump of foot Wound of left foot PAD (peripheral artery disease) Deep venous thrombosis of distal end of left lower extremity Type 2 diabetes mellitus with diabetic polyneuropathy Gastroesophageal reflux disease Osteoarthritis of cervical and lumbar spine Chronic diarrhea Brain tumor (benign) Diabetic foot ulcer Debility History of pneumonia Migraine Home Medications ?Medication ?Instructions ?Recorded ?Last Taken ?Type folic acid 1 mg tablet 1 mg PO DAILY SUPPLEMENT #30 tabs 02/15/23 04/09/23 Rx Lactobacillus rhamnosus GG 10 1 cap PO DAILY GUT HEALTH 04/10/23 04/09/23 History billion cell capsule (Culturelle) pantoprazole 40 mg tablet,delayed 40 mg PO DAILY GERD 04/10/23 02/02/24 06:00 History release acetaminophen 500 mg tablet 1,000 mg PO Q6H PRN Pain Score 1-5 04/25/24 Unknown History albuterol sulfate 90 mcg/actuation 1 puff inhalation Q4H PRN 04/25/24 Unknown History aerosol inhaler (Ventolin HFA) SHORTNESS OF BREATH camphor-menthol 0.2 %-3.5 % 1 applic topical BID pain 04/25/24 Unknown History topical gel (Freeze It Relief) ergocalciferol (vitamin D2) 1,250 1,250 mcg PO WE SUPPLEMENT 04/25/24 05/29/24 History mcg (50,000 unit) capsule food supplemt, lactose-reduced 120 ml PO TID 04/25/24 Unknown History 0.04 gram-1.05 kcal/mL oral liquid (Boost Breeze Nutritional) levetiracetam 250 mg tablet 250 mg PO BID EPILEPSY 04/25/24 Unknown History (Keppra) melatonin 3 mg tablet 3 mg PO QHS PRN SLEEP 04/25/24 Unknown History ondansetron 4 mg disintegrating 4 mg PO Q6H PRN NAUSEA 04/25/24 Unknown History tablet cyclobenzaprine 5 mg tablet 5 mg PO TID PRN MUSCLE SPASMS #0 04/28/24 Unknown Rx tabs Allergy/AdvReac Type Severity Reaction Status Date / Time cefprozil Allergy Shortness Verified 06/04/24 12:47 of breath ceftriaxone Allergy Hives Verified 06/04/24 12:47 clindamycin Allergy Rash Verified 06/04/24 12:47 enalapril Allergy Other Verified 06/04/24 12:47 enoxaparin Allergy Rash Verified 06/04/24 12:47 heparin Allergy Rash Verified 06/04/24 12:47 levalbuterol Allergy Other Verified 06/04/24 12:47 morphine Allergy Shortness Verified 06/04/24 12:47 of breath Penicillins Allergy Anaphylaxis Verified 06/04/24 12:47 valsartan Allergy Other Verified 06/04/24 12:47 vancomycin Allergy Rash Verified 06/04/24 12:47 atorvastatin AdvReac Other Verified 06/04/24 12:47 rosuvastatin (From Crestor) AdvReac Other Verified 06/04/24 12:47 Family History Mother Cancer Lung CA w/ tobacco use history. Diabetes COPD (chronic obstructive pulmonary disease) Father Cancer Lung CA w/ tobacco use history. Diabetes COPD (chronic obstructive pulmonary disease) Heart disease Surgical History Status post transmetatarsal amputation of left foot History of eye surgery History of lumpectomy History of foot surgery History of tubal ligation History of appendectomy Tubal ligation status Social History household members: none Smoking Status: Never smoker alcohol intake: never substance use type: does not use ROS Constitutional Constitutional: Reports malaise, weakness and weight loss Eyes Eyes: Denies blindness, blurry vision, change in vision, discongugate gaze, double vision, dry eyes or loss of vision ENT HEENT: Reports dry mouth Cardiovascular Cardiovascular: Denies chest pain, claudication, diaphoresis, dyspnea on exertion, edema, irregular heart rhythm, leg edema, orthopnea, palpitations or syncope Respiratory/Chest Respiratory/Chest: Denies dry cough, dyspnea on exertion, hemoptysis, portable oxygen @ home, productive cough, shortness of breath at rest or wheezing Gastrointestinal Gastrointestinal: Reports abdominal pain, anorexia, diarrhea and nausea Genitourinary Genitourinary: Reports flank pain; Denies change in urinary stream, difficulty urinating, dribbling, dysuria, hematuria, nocturia, oliguria, post void dribbling, urinary frequency, urinary hesitancy, urinary incontinence or urinary urgency Physical Exam Narrative Physical exam General: Alert, Oriented x3, Cooperative. Frail and fatigued. BMI 19.6 kg/m?. Chronic severe malnutrition HEENT: Atraumatic, PERRLA, EOMI, Normocephalic Oral: Oral mucosa moist. No Gingival or Mucosal Lesions/ Ulcerations Neck: Supple, No JVD, Negative Carotid Bruits Chest wall/Lungs: Air entry diminished in bilateral lung bases. No crepitation/rhonchi Cardiovascular: Regular rate, Regular Rhythm, Normal S1, Normal S2, No M/G/R Abdomen: Bowel Sounds Present, Soft, Non Tender, Non-Distended. No abdominal surgery : No dysuria. No renal angle tenderness. No suprapubic tenderness. Extremities: Mild pitting edema, Capillary Refill Less than 3 Seconds Skin: No rashes, No breakdown Musculoskeletal: Moderate chronic muscle atrophy of extremities, chest wall muscles and intervertebral muscles. No Tenderness to Palpation of Joints or Extremities Neurological: Cranial nerves II-XII grossly intact, DTR 2+/4. No acute focal neurological deficit. Psych/Mental Status: Flat affect. Lab / Micro Data 06/06/24 06:46 06/06/24 06:46 Labs: Laboratory Results - last 24 hr 06/06/24 06:46: WBC 8.7, RBC 2.85 L, Hgb 8.7 L, Hct 25.0 L, MCV 87.7, MCH 30.5, MCHC 34.8 D, RDW Std Deviation 44.5 H, RDW Coeff of Xin 13.8, Plt Count 249, MPV 10.2, Immature Gran % (Auto) 0.500, Neut % (Auto) 79.7 H, Lymph % (Auto) 16.5 L, Clark % (Auto) 3.2, Eos % (Auto) 0.0, Baso % (Auto) 0.1, Absolute Neuts (auto) 6.9, Absolute Lymphs (auto) 1.43, Nucleated RBC % 0, Sodium 130 L, Potassium 3.8, Chloride 101, Carbon Dioxide 16.0 L, Anion Gap 13, BUN 61 H, Creatinine 4.79 H, Estim Creat Clear Calc 9.21, Est GFR (MDRD) Af Amer 12 L, Est GFR (MDRD) Non-Af 10 L, BUN/Creatinine Ratio 12.7, Glucose 232 H, Calcium 7.7 L Micro: Microbiology 06/04/24 22:10 Urine Catheter - Catheter Urine Culture - Preliminary Klebsiella oxytoca 06/05/24 19:00 Stool Enteric Bacteriology - Final 06/05/24 19:00 Stool C. difficile GDH Antigen & Toxins - Final 06/05/24 19:00 Stool Clostridioides difficile (PCR) - Final Imaging Radiology Impression Renal Ultrasound 06/04/24 16:06 IMPRESSION: Unremarkable kidneys and urinary bladder. 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 She is currently experiencing diarrhea and is C. difficile AMB toxin positive and PCR positive. I think her acute on chronic diarrhea is currently secondary to C. difficile colitis. I would put her on vancomycin oral and IV Flagyl. I would put her on a long taper course of that along with possible budesonide because of a history of collagenous colitis. I will also put her on some colestipol.. Charges/Coding Visit Charges Inpatient E&M: 44731 Init Hosp L3
[2024-06-06] MEDS: metroNIDAZOLE 500 MG/100 ML BAG 100 MG IV (22:34)
[2024-06-06] MEDS: Vancomycin HCl 250 MG Capsule 500 MG PO (22:35)
[2024-06-07] MEDS: Menthol/Lanolin/Calamine/Znox 113 GM Tube 1 APPLIC TOPICAL ×3 (04:11→22:14)
[2024-06-07] MEDS: Sodium Bicarbonate 150 MEQ in Dextrose 5%-Water (1000mL Bag) 1,000 ML 100 MEQ IV (04:11)
[2024-06-07 05:35] VITALS: BP 148/77; PULSE 68; RESP 16; TEMP 36.5; O2SAT 97
[2024-06-07] MEDS: Vancomycin HCl 250 MG Capsule 500 MG PO ×3 (05:40→23:48)
[2024-06-07] MEDS: metroNIDAZOLE 500 MG/100 ML BAG 100 MG IV ×3 (05:40→23:47)
[2024-06-07] MEDS: Colestipol 1 GM TABLET 2 GM PO ×2 (05:40→18:15)
[2024-06-07 06:11] LABS: Absolute Lymphocyte Count 4.53 X10^3/uL (0.83-4.51); Absolute Neutrophil Count 10.7 X10^3/uL (2.0-7.7); Basophil# 0.06 X10^3/uL; Basophil% 0.4 % (0-1); Eosinophil# 0.25 X10^3/uL; Eosinophils% 1.5 % (0-5); Hematocrit 23.1 % (37-47); Hemoglobin 7.9 g/dL (12.0-15.0); Lymphocyte # 4.53 X10^3/ul (0.83-4.51); Lymphocyte % 26.8 % (19-41); Mean Corp Hgb Conc 34.2 g/dL (32-36); Mean Corpuscular Hgb 29.8 pg (27.0-32.0); Mean Corpuscular Volume 87.2 fL (81-99); Mean Platelet Vol. 10.3 fl (6.2-12.0); Monocyte# 1.28 X10^3/uL; Monocyte% 7.6 % (0-10); NRBC Flagged by Analyzer 0 % (0-5); Neutrophil # 10.74 X10^3/uL (2.7-7.7); Neutrophil % 63.3 % (47-70); Platelet Count 251 K/mm3 (150-450); RBC Distribution Width CV 13.8 % (11.6-14.6); RBC Distribution Width SD 43.6 fl (35.1-43.9); Red Blood Count 2.65 M/mm3 (4.2-5.4); White Blood Count 16.9 K/mm3 (4.4-11.0)
[2024-06-07] MEDS: 0.9% Saline Lock 10 ML Syringe IV ×3 (06:41→16:20)
[2024-06-07] MEDS: Ondansetron 4 MG/2 ML Vial IV ×3 (06:41→22:45)
[2024-06-07 06:48] LABS: Anion Gap 12 (5-15); BUN 56 mg/dL (7-18); BUN/Creat Ratio 13.6 RATIO (10-20); Calcium,Total 7.2 mg/dL (8.5-10.1); Chloride 93 mmol/L (98-107); Creatinine, Serum 4.12 mg/dL (0.55-1.02); EST Glomerular Filtration Rate 11 mL/min (>60); Est Glom Filt Rate - Afr Amer 14 mL/min (>60); Estimated Creatinine Clearance 10.71 ml/min; Glucose 100 mg/dL (74-106); Potassium 2.9 mmol/L (3.5-5.1); Sodium Level 125 mmol/L (136-145)
[2024-06-07] MEDS: 0.9% Normal Saline (1000mL) 1,000 ML 75 ML IV ×2 (09:57→22:14)
[2024-06-07] MEDS: Meropenem 500 MG in 0.9% Normal Saline (50mL MB+) 50 ML 100 MG IV (09:57)
[2024-06-07 10:04] VITALS: BP 151/80; PULSE 71; RESP 14; TEMP 36.6; O2SAT 95
[2024-06-07] MEDS: Potassium Chloride 10mEq/100mL 10 MEQ/100 ML IV.SOLN. 100 MEQ IV BOLUS ×4 (10:54→16:11)
--- NOTE | 2024-06-07 11:57 | CASEMGMT ---
Social Work SW met with pt who confirms she has decided to return to [facility] at time of discharge. Per physician, pt is not ready for dc today. DC assisted living assistant to updated [facility]. Green Sheet placed on pt chart to facility possible weekend discharge. plan: Return to [facility] when medically ready LETY Wilks
[2024-06-07] MEDS: Metoclopramide 10 MG/2 ML Vial IV (12:18)
--- NOTE | 2024-06-07 12:56 | PCM.PN.ID ---
Physical Exam Narrative Feeling better, no fever, no abd pain, no n/v/d. Const alert and no apparent distress General Appearance: cooperative Resp normal air movement and clear to auscultation bilaterally Cardio regular rate and regular rhythm GI soft to palpation, non-tender and non-distended Skin no rashes or lesions noted ID ID: Route of nutrition/ use of supplements: [] Nutritional Intake: [] IV Site: [] Nguyen Catheter: [] Assessment & Plan Assessment/Plan (1) Leukocytosis: PLAN: Treating for uti. Ucx with klebs and small amount of strep, wbc improved, cont meropenem. Will follow
--- NOTE | 2024-06-07 13:34 | PN.HOSP_ITS ---
Reason for Visit Reason for Visit: Diagnoses Elevated white blood cell count, unspecified (06/04/24) Hypo-osmolality and hyponatremia (06/04/24) Acidosis, unspecified (06/04/24) Gastroparesis (06/04/24) Functional diarrhea (06/04/24) Cervicalgia (06/04/24) Acute kidney failure, unspecified (06/04/24) Chronic kidney disease, unspecified (06/04/24) Nausea with vomiting, unspecified (06/04/24) Objective Data Objective Data Vital Signs: Vital Signs Temp Pulse Resp BP Pulse Ox O2 Del Method 97.8 F 71 14 151/80 H 95 Room Air 06/07/24 10:04 06/07/24 10:04 06/07/24 10:04 06/07/24 10:04 06/07/24 10:04 06/07/24 10:04 Oxygen Delivery Method Room Air Weight: 114 lb 6.719 oz Body Mass Index (BMI) 19.6 Intake & Output: Intake and Output for Last 24 Hours 06/05/24 06/06/24 06/07/24 23:59 23:59 23:59 Intake Total 3250.0 / 3250.0 1630 / 2030 2296.66 / 2296.66 Output Total 750 / 1050 1225 / 1700 1150 / 1150 Balance 2500.0 / 2200.0 405 / 330 1146.66 / 1146.66 Lab / Micro Data 06/07/24 05:20 06/07/24 05:20 Labs: Laboratory Results - last 24 hr 06/07/24 05:20: WBC 16.9 H, RBC 2.65 L, Hgb 7.9 L, Hct 23.1 L, MCV 87.2, MCH 29.8, MCHC 34.2, RDW Std Deviation 43.6, RDW Coeff of Xin 13.8, Plt Count 251, MPV 10.3, Immature Gran % (Auto) 0.400, Neut % (Auto) 63.3, Lymph % (Auto) 26.8, Ripley % (Auto) 7.6, Eos % (Auto) 1.5, Baso % (Auto) 0.4, Absolute Neuts (auto) 10.7 H, Absolute Lymphs (auto) 4.53 H, Nucleated RBC % 0, Sodium 125 L, Potassium 2.9 L, Chloride 93 L, Carbon Dioxide 20.0 L, Anion Gap 12, BUN 56 H, Creatinine 4.12 H, Estim Creat Clear Calc 10.71, Est GFR (MDRD) Af Amer 14 L, Est GFR (MDRD) Non-Af 11 L, BUN/Creatinine Ratio 13.6, Glucose 100, C alcium 7.2 L Micro: Microbiology 06/04/24 22:10 Urine Catheter - Catheter Urine Culture - Preliminary Klebsiella oxytoca Beta streptococcus 06/04/24 16:20 Blood Culture (Wb) - Anticubital Left Blood Culture - Preliminary No growth in 48 hours. 06/05/24 19:00 Stool Enteric Bacteriology - Final 06/05/24 19:00 Stool C. difficile GDH Antigen & Toxins - Final 06/05/24 19:00 Stool Clostridioides difficile (PCR) - Final Physical Exam Narrative Seen and examined Patient having diarrhea about 5-6 and she told but it may be over emphasized as per nursing staff 3-4 times. Patient was seen by arts and humanities council director yesterday. She wanted to try fecal transplant before going for hospice. She feels more weak and frail after diarrhea and electrolytes are abnormal. Has a history of chronic diarrhea for 8 years after she had C. difficile. Was admitted with ANNIKA with severe high anion gap metabolic acidosis. History of meningioma status postradiation Physical exam General: Alert, Oriented x3, Cooperative. Frail and fatigued. BMI 19.6 kg/m?. Chronic severe malnutrition HEENT: Atraumatic, PERRLA, EOMI, Normocephalic Oral: Oral mucosa dry. No Gingival or Mucosal Lesions/ Ulcerations Neck: Supple, No JVD, Negative Carotid Bruits Chest wall/Lungs: Air entry diminished in bilateral lung bases. No crepitation/rhonchi Cardiovascular: Regular rate, Regular Rhythm, Normal S1, Normal S2, No M/G/R Abdomen: Bowel Sounds Present, Soft, Non Tender, Non-Distended. No abdominal surgery : No dysuria. No renal angle tenderness. No suprapubic tenderness. Extremities: Mild pitting edema, Capillary Refill Less than 3 Seconds Skin: No rashes, No breakdown Musculoskeletal: Moderate chronic muscle atrophy of extremities, chest wall muscles and intervertebral muscles. No Tenderness to Palpation of Joints or Extremities Neurological: Cranial nerves II-XII grossly intact, DTR 2+/4. No acute focal neurological deficit. Psych/Mental Status: Flat affect. Assessment & Plan Assessment/Plan (1) Metabolic acidosis: PLAN: Plan 69-year-old female was admitted from [facility] for abnormal labs. She had diarrhea. Labs showed elevated WBC count, low bicarb, elevated creatinine. Patient is DNR CC comfort care. 1. ANNIKA with high anion gap severe metabolic acidosis: The patient admitted Medr floor. BUN 57, creatinine 4.89. Bicarbonate 8 and anion gap 14. Patient was given sodium bicarb Drip x 1 L and then switched to lactated Ringer. started on sodium bicarb 150 mill per hour for 2 L. Has Ngyuen catheter. Lumber Grader is consulted. UA shows WBC more than 100 cells, RBC 50-100, LE 500, nitrite negative. Mild proteinuria. Kidneys and bladder ultrasound ordered. Patient denies new lower urinary tract symptoms including burning micturition increased frequency or urgency. States her urine is very dirty interpret. Patient is allergic to penicillin and cephalosporin with anaphylactic reaction. Previous urine culture shows E. coli and Klebsiella resistant to lexis quinolone. ID consulted because of complicated infection history 06/06: BUNs/creatinine 61/4.79. Discussed with the glass driller. Continue IV fluid bicarb drip. Electrolytes shows low sodium hyponatremia 130, potassium normal. High anion gap metabolic acidosis, bicarb low at 16 with anion gap 13. Improvement in sodium and metabolic acidosis 06/07: Hyponatremia, hypokalemia, hypochloremia, high anion gap metabolic acidosis. BUN/creatinine 56/4.12. Patient started on IV fluid normal saline, potassium replacement and bicarb tablet. Renal ultrasound reported unremarkable. has Nguyen catheter. #2 Elevated white blood cell count-etiology unclear, C. difficile and enteric pathogens: Patient had C. difficile about 8 years ago and was resistant to multiple treatment and at last fecal transplant was recommended but it was during COVID time therefore did not happen. Patient is still has diarrhea. She follows Dr. Melissa and probably has rapid bowel transit. 06/06: WBC count is normal. C. difficile PCR and antigen A and B+ but toxin is negative therefore she has chronic history of C. difficile. Diarrhea is better. Patient does not want to vancomycin overall therefore discontinued 06/07: Urine culture shows Klebsiella oxytoca more than 100,000 colonies, beta Streptococcus 25,000?50,000. Klebsiella ESBL negative, resistant to fluoroquinolone, Bactrim, and ampicillin. Enteric bacteriology is negative. #3 diarrhea-etiology unclear, chronic as mentioned above 06/06: Patient wants to see GI doctor friend therefore consulted 06/07: Patient wants to try fecal transplant but I think it is not done any [facility]. May need to consider outside tertiary care center. 4. Chronic debility-patient states she would like to go to a different nursing facility, social services assistant made aware of that 5. Chronic seizure/epilepsy disorder-patient is on Keppra Laboratory Results 06/07/24 05:20: WBC 16.9 H, RBC 2.65 L, Hgb 7.9 L, Hct 23.1 L, MCV 87.2, MCH 29.8, MCHC 34.2, RDW Std Deviation 43.6, RDW Coeff of Xin 13.8, Plt Count 251, MPV 10.3, Immature Gran % (Auto) 0.400, Neut % (Auto) 63.3, Lymph % (Auto) 26.8, Ripley % (Auto) 7.6, Eos % (Auto) 1.5, Baso % (Auto) 0.4, Absolute Neuts (auto) 10.7 H, Absolute Lymphs (auto) 4.53 H, Nucleated RBC % 0, Sodium 125 L, P otassium 2.9 L, Chloride 93 L, Carbon Dioxide 20.0 L, Anion Gap 12, BUN 56 H, C reatinine 4.12 H, Estim Creat Clear Calc 10.71, Est GFR (MDRD) Af Amer 14 L, Est GFR (MDRD) Non-Af 11 L, BUN/Creatinine Ratio 13.6, Glucose 100, Calcium 7.2 L Microbiology Past 72 Hours 06/04/24 22:10 Urine Catheter - Catheter Urine Culture - Preliminary Klebsiella oxytoca 06/05/24 19:00 Stool Enteric Bacteriology - Final 06/05/24 19:00 Stool C. difficile GDH Antigen & Toxins - Final 06/05/24 19:00 Stool Clostridioides difficile (PCR) - Final Clinical Impression(s) from Imaging Studies Renal Ultrasound 06/04/24 16:06 IMPRESSION: Unremarkable kidneys and urinary bladder. Charges/Coding Visit Charges Inpatient E&M: 59116 Subs Hosp L2
--- NOTE | 2024-06-07 14:15 | PN.RENAL_ITS ---
Subjective Subjective Follow-up with acute kidney injury secondary to renal hypoperfusion. The patient continues to feel poorly, continues to have abdominal pain and has not been eating. Objective Data Objective Data Vital Signs: Vital Signs Temp Pulse Resp BP Pulse Ox O2 Del Method 97.8 F 71 14 151/80 H 95 Room Air 06/07/24 10:04 06/07/24 10:04 06/07/24 10:04 06/07/24 10:04 06/07/24 10:04 06/07/24 10:04 Oxygen Delivery Method Room Air Weight: 51.9 kg Body Mass Index (BMI) 19.6 Intake & Output: Intake and Output for Last 24 Hours 06/05/24 06/06/24 06/07/24 23:59 23:59 23:59 Intake Total 3250.0 / 3250.0 1630 / 2030 2396.66 / 2396.66 Output Total 750 / 1050 1225 / 1700 1150 / 1150 Balance 2500.0 / 2200.0 405 / 330 1246.66 / 1246.66 Lab / Micro Data Attestation: I reviewed the patient's lab results. 06/07/24 05:20 06/07/24 05:20 Labs: Laboratory Results - last 24 hr 06/07/24 05:20: WBC 16.9 H, RBC 2.65 L, Hgb 7.9 L, Hct 23.1 L, MCV 87.2, MCH 29.8, MCHC 34.2, RDW Std Deviation 43.6, RDW Coeff of Xin 13.8, Plt Count 251, MPV 10.3, Immature Gran % (Auto) 0.400, Neut % (Auto) 63.3, Lymph % (Auto) 26.8, [place] % (Auto) 7.6, Eos % (Auto) 1.5, Baso % (Auto) 0.4, Absolute Neuts (auto) 10.7 H, Absolute Lymphs (auto) 4.53 H, Nucleated RBC % 0, Sodium 125 L, P otassium 2.9 L, Chloride 93 L, Carbon Dioxide 20.0 L, Anion Gap 12, BUN 56 H, C reatinine 4.12 H, Estim Creat Clear Calc 10.71, Est GFR (MDRD) Af Amer 14 L, Est GFR (MDRD) Non-Af 11 L, BUN/Creatinine Ratio 13.6, Glucose 100, Calcium 7.2 L Micro: Microbiology 06/04/24 22:10 Urine Catheter - Catheter Urine Culture - Preliminary Klebsiella oxytoca Beta streptococcus 06/04/24 16:20 Blood Culture (Wb) - Anticubital Left Blood Culture - Preliminary No growth in 48 hours. 06/05/24 19:00 Stool Enteric Bacteriology - Final 06/05/24 19:00 Stool C. difficile GDH Antigen & Toxins - Final 06/05/24 19:00 Stool Clostridioides difficile (PCR) - Final Physical Exam Const alert, oriented x3 and no apparent distress General Appearance: frail Orientation / Consciousness: oriented to person, oriented to place and oriented to time Nutritional Appearance: cachectic HEENT normocephalic Head and Scalp: atraumatic Neck no lymphadenopathy Resp no use of accessory muscles and clear to auscultation bilaterally Cardio regular rate GI non-tender Auscultation: normoactive bowel sounds Skin no rashes or lesions noted Neuro Sensorium / Orientation: awake and alert Psych cooperative Assessment & Plan Assessment/Plan (1) Hyponatremia: PLAN: In the setting of acute kidney injury, poor oral intake. Not in dangerous range, my add salt tablets if nausea improves. She is also hypokalemic due to malnutrition (2) Acute kidney injury superimposed on chronic kidney disease: PLAN: Creatinine continues to go down with volume expansion. As she is still not eating, will continue with IV fluids, add potassium to it
--- NOTE | 2024-06-07 14:36 | CASEMGMT ---
Discharge Planning Updates sent to [facility] via [facility]. Requested wknd phone/fax. Tami Fall DC Planning Asst.
[2024-06-07 16:23] VITALS: BP 158/82; PULSE 75; RESP 14; TEMP 36.7; O2SAT 97
[2024-06-07] MEDS: Metoclopramide 10 MG/2 ML Vial 5 MG IV (18:15)
[2024-06-07] MEDS: Sodium Bicarbonate 650 MG Tablet PO ×2 (18:16→22:16)
--- NOTE | 2024-06-07 18:24 | NURSING ---
Pt sltates she had 5 episodes of vomitting. pt reported this to this RN this morning around 1100am. This RN told her that I needed to seel the vomit. Pt just recently said she brought up mashed potatoes in the green bag. Aide reported to me that pt was dry heaving and only spit in green bag. When this rN assessed emesis bag, it only had a small amt of what looked like phelgm but pt swore it was mashed potatoes she brought up. Pt had refused scheduled meds this morning and wanted to refuse them again this evening but this RN encouraged pt to take with Reglan to see if that would help as it was important to get her to take her meds as Dr. Melissa ordered them and wants to see if that will help with her diarrhea.
--- NOTE | 2024-06-07 18:52 | PN.GI_ITS ---
Subjective Subjective Patient says that her diarrhea is a little bit better today. She admits to 4 episodes of diarrhea but her stools are becoming a little bit thicker today. Her appetite is very poor. She denied any fevers. Her weight is about the same today. Objective Data Objective Data Vital Signs: Vital Signs Temp Pulse Resp BP Pulse Ox O2 Del Method 98.1 F 75 14 158/82 H 97 Room Air 06/07/24 16:23 06/07/24 16:23 06/07/24 16:23 06/07/24 16:23 06/07/24 16:23 06/07/24 16:23 Oxygen Delivery Method Room Air Weight: 114 lb 6.719 oz Body Mass Index (BMI) 19.6 Intake & Output: Intake and Output for Last 24 Hours 06/05/24 06/06/24 06/07/24 23:59 23:59 23:59 Intake Total 3250.0 / 3250.0 1630 / 2030 3826.66 / 3826.66 Output Total 750 / 1050 1225 / 1700 3000 / 3000 Balance 2500.0 / 2200.0 405 / 330 826.66 / 826.66 Lab / Micro Data 06/07/24 05:20 06/07/24 05:20 Labs: Laboratory Results - last 24 hr 06/07/24 05:20: WBC 16.9 H, RBC 2.65 L, Hgb 7.9 L, Hct 23.1 L, MCV 87.2, MCH 29.8, MCHC 34.2, RDW Std Deviation 43.6, RDW Coeff of Xin 13.8, Plt Count 251, MPV 10.3, Immature Gran % (Auto) 0.400, Neut % (Auto) 63.3, Lymph % (Auto) 26.8, [place] % (Auto) 7.6, Eos % (Auto) 1.5, Baso % (Auto) 0.4, Absolute Neuts (auto) 10.7 H, Absolute Lymphs (auto) 4.53 H, Nucleated RBC % 0, Sodium 125 L, P otassium 2.9 L, Chloride 93 L, Carbon Dioxide 20.0 L, Anion Gap 12, BUN 56 H, C reatinine 4.12 H, Estim Creat Clear Calc 10.71, Est GFR (MDRD) Af Amer 14 L, Est GFR (MDRD) Non-Af 11 L, BUN/Creatinine Ratio 13.6, Glucose 100, Calcium 7.2 L Micro: Microbiology 06/04/24 22:10 Urine Catheter - Catheter Urine Culture - Preliminary Klebsiella oxytoca Beta streptococcus 06/04/24 16:20 Blood Culture (Wb) - Anticubital Left Blood Culture - Preliminary No growth in 48 hours. 06/05/24 19:00 Stool Enteric Bacteriology - Final 06/05/24 19:00 Stool C. difficile GDH Antigen & Toxins - Final 06/05/24 19:00 Stool Clostridioides difficile (PCR) - Final Physical Exam Const alert, oriented x3 and no apparent distress General Appearance: frail Orientation / Consciousness: oriented to person, oriented to place and oriented to time Nutritional Appearance: cachectic HEENT normocephalic Head and Scalp: atraumatic Neck no lymphadenopathy Resp no use of accessory muscles and clear to auscultation bilaterally Cardio regular rate GI non-tender Auscultation: normoactive bowel sounds Skin no rashes or lesions noted Neuro Sensorium / Orientation: awake and alert Psych cooperative Assessment & Plan Assessment/Plan (1) Acute neck pain: (2) Gastroparesis: (3) Nausea & vomiting: (4) Diarrhea: QUALIFIERS: Diarrhea type: functional diarrhea Qualified Code(s): K59.1 - Functional diarrhea PLAN: Plan 69-year-old with past medical history of diabetes mellitus complicated by gastroparesis, bacterial overgrowth, 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 She also currently has C. difficile colitis. She is C. difficile positive for A&B antigen and she's PCR positive for history of CDiff. She is currently on vancomycin and Flagyl. I will increase her colestipol to 3 g p.o. twice daily. I would recommend monoclonal antibody as an outpatient for toxin B. Charges/Coding Visit Charges Inpatient E&M: 03417 Subs Hosp L3
[2024-06-07 20:04] VITALS: BP 159/88; PULSE 82; RESP 16; TEMP 36.7; O2SAT 97
[2024-06-07] MEDS: Colestipol 1 GM TABLET 3 GM PO (22:15)
[2024-06-07] MEDS: levETIRAcetam 250 MG Tablet PO (22:16)
[2024-06-08 02:14] VITALS: BP 145/76; PULSE 72; RESP 16; TEMP 36.6; O2SAT 96
[2024-06-08] MEDS: metroNIDAZOLE 500 MG/100 ML BAG 100 MG IV (05:47)
[2024-06-08] MEDS: Metoclopramide 10 MG/2 ML Vial 5 MG IV ×2 (06:08→16:57)
[2024-06-08] MEDS: Vancomycin HCl 250 MG Capsule 500 MG PO (07:18)
[2024-06-08] MEDS: Menthol/Lanolin/Calamine/Znox 113 GM Tube 1 APPLIC TOPICAL ×2 (07:19→22:15)
--- NOTE | 2024-06-08 08:00 | PCM.PN.HOSP ---
Reason for Visit Reason for Visit: Diagnoses Elevated white blood cell count, unspecified (06/04/24) Hypo-osmolality and hyponatremia (06/04/24) Acidosis, unspecified (06/04/24) Gastroparesis (06/04/24) Functional diarrhea (06/04/24) Cervicalgia (06/04/24) Acute kidney failure, unspecified (06/04/24) Chronic kidney disease, unspecified (06/04/24) Nausea with vomiting, unspecified (06/04/24) Objective Data Objective Data Vital Signs: Vital Signs Temp Pulse Resp BP Pulse Ox O2 Del Method 97.9 F 72 16 145/76 H 96 Room Air 06/08/24 02:14 06/08/24 02:14 06/08/24 02:14 06/08/24 02:14 06/08/24 02:14 06/08/24 02:14 Oxygen Delivery Method Room Air Weight: 114 lb 6.719 oz Body Mass Index (BMI) 19.6 Intake & Output: Intake and Output for Last 24 Hours 06/06/24 06/07/24 06/08/24 23:59 23:59 23:59 Intake Total 1630 / 2030 4166.66 / 4166.66 200 / 200 Output Total 1225 / 1700 3000 / 3600 1200 / 1200 Balance 405 / 330 1166.66 / 566.66 -1000 / -1000 Lab / Micro Data 06/08/24 08:40 06/08/24 08:40 Micro: Microbiology 06/04/24 22:10 Urine Catheter - Catheter Urine Culture - Preliminary Klebsiella oxytoca Beta streptococcus 06/04/24 16:20 Blood Culture (Wb) - Anticubital Left Blood Culture - Preliminary No growth in 48 hours. 06/05/24 19:00 Stool Enteric Bacteriology - Final 06/05/24 19:00 Stool C. difficile GDH Antigen & Toxins - Final 06/05/24 19:00 Stool Clostridioides difficile (PCR) - Final Physical Exam Narrative Seen and examined Her diarrhea has improved she did not had since last night but she is having nausea and vomiting vomited 3-4 times. I feel like Terence is giving her bad taste and nausea feeling. On vancomycin oral. She still feels very weak. Electrolytes sodium and potassium are better than yesterday. Has a history of chronic diarrhea for 8 years after she had C. difficile. Was admitted with ANNIKA with severe high anion gap metabolic acidosis. History of meningioma status postradiation Physical exam General: Alert, Oriented x3, Cooperative. Frail and fatigued. BMI 19.6 kg/m?. Chronic severe malnutrition HEENT: Atraumatic, PERRLA, EOMI, Normocephalic Oral: Oral mucosa dry. No Gingival or Mucosal Lesions/ Ulcerations Neck: Supple, No JVD, Negative Carotid Bruits Chest wall/Lungs: Air entry diminished in bilateral lung bases. No crepitation/rhonchi Cardiovascular: Regular rate, Regular Rhythm, Normal S1, Normal S2, No M/G/R Abdomen: Bowel Sounds Present, Soft, Non Tender, Non-Distended. No abdominal surgery : No dysuria. No renal angle tenderness. No suprapubic tenderness. Extremities: Mild pitting edema, Capillary Refill Less than 3 Seconds. Left transmetatarsal amputation. Skin: Bilateral heel skin ulcer has healed but is still it is soft and amaris on pressure. Stage I bilateral heel ulcer, present on admission Musculoskeletal: Moderate chronic muscle atrophy of extremities, chest wall muscles and intervertebral muscles. No Tenderness to Palpation of Joints or Extremities Neurological: Cranial nerves II-XII grossly intact, DTR 2+/4. No acute focal neurological deficit. Psych/Mental Status: Flat affect. Assessment & Plan Assessment/Plan (1) Metabolic acidosis: PLAN: Plan 69-year-old female was admitted from [facility] for abnormal labs. She had diarrhea. Labs showed elevated WBC count, low bicarb, elevated creatinine. Patient is DNR CC comfort care. 1. ANNIKA with high anion gap severe metabolic acidosis: The patient admitted Medr floor. BUN 57, creatinine 4.89. Bicarbonate 8 and anion gap 14. Patient was given sodium bicarb Drip x 1 L and then switched to lactated Ringer. started on sodium bicarb 150 mill per hour for 2 L. Has Nguyen catheter. Rider Ticket Worker is consulted. UA shows WBC more than 100 cells, RBC 50-100, LE 500, nitrite negative. Mild proteinuria. Kidneys and bladder ultrasound ordered. Patient denies new lower urinary tract symptoms including burning micturition increased frequency or urgency. States her urine is very dirty interpret. Patient is allergic to penicillin and cephalosporin with anaphylactic reaction. Previous urine culture shows E. coli and Klebsiella resistant to lexis quinolone. ID consulted because of complicated infection history 06/06: BUNs/creatinine 61/4.79. Discussed with the informatics analyst. Continue IV fluid bicarb drip. Electrolytes shows low sodium hyponatremia 130, potassium normal. High anion gap metabolic acidosis, bicarb low at 16 with anion gap 13. Improvement in sodium and metabolic acidosis 06/07: Hyponatremia, hypokalemia, hypochloremia, high anion gap metabolic acidosis. BUN/creatinine 56/4.12. Patient started on IV fluid normal saline, potassium replacement and bicarb tablet. Renal ultrasound reported unremarkable. has Nguyen catheter. 06/08: Serum sodium 132, potassium 3.3, bicarb 21. Continue IV fluid normal saline plus potassium replacement and bicarb tablet. BUNs/creatinine 51/3.63, improving. 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 difficile about 8 years ago and was resistant to multiple treatment and at last fecal transplant was recommended but it was during COVID time therefore did not happen. Patient is still has diarrhea. She follows Dr. Melissa and probably has rapid bowel transit. 06/06: WBC count is normal. C. difficile PCR and antigen A and B+ but toxin is negative therefore she has chronic history of C. difficile. Diarrhea is better. Patient does not want to vancomycin overall therefore discontinued 06/07: Urine culture shows Klebsiella oxytoca more than 100,000 colonies, beta Streptococcus 25,000?50,000. Klebsiella ESBL negative, resistant to fluoroquinolone, Bactrim, and ampicillin. Enteric bacteriology is negative. 06/08: Patient has history of gastroparesis due to DM type II, bacterial overgrowth, and recurrent history of C. difficile. Patient agreed to take vancomycin and IV Flagyl. She has history of collagenous colitis may be considered Budenoside as an outpatient in the office. On colestipol increased to 3 g twice daily. Flagyl discontinued because of increased nausea and vomiting. Continue IV meropenem. #3 multiple chronic conditions including small intestinal bacterial overgrowth, collagenous colitis with history of recurrent C. difficile 06/06: Patient wants to see GI doctor friend therefore consulted 06/07: Patient wants to try fecal transplant but I think it is not done any [facility]. May need to consider outside tertiary care center. 4. Chronic debility-history of bilateral diabetic feet ulcer with left foot transmetatarsal amputation: Patient states she would like to go to a different nursing facility, social media project manager made aware of that 5. Chronic seizure/epilepsy disorder-patient is on Keppra Microbiology Past 72 Hours 06/04/24 22:10 Urine Catheter - Catheter Urine Culture - Final Klebsiella oxytoca Streptococcus agalactiae (B) 06/04/24 16:20 Blood Culture (Wb) - Anticubital Left Blood Culture - Preliminary No growth in 48 hours. 06/05/24 19:00 Stool Enteric Bacteriology - Final 06/05/24 19:00 Stool C. difficile GDH Antigen & Toxins - Final 06/05/24 19:00 Stool Clostridioides difficile (PCR) - Final Laboratory Results 06/08/24 08:40: WBC 14.7 H, RBC 2.65 L, Hgb 7.9 L, Hct 23.1 L, MCV 87.2, MCH 29.8, MCHC 34.2, RDW Std Deviation 42.8, RDW Coeff of Xin 13.7, Plt Count 261, MPV 9.4, Immature Gran % (Auto) 0.400, Neut % (Auto) 64.5, Lymph % (Auto) 23.9, [place] % (Auto) 8.9, Eos % (Auto) 1.9, Baso % (Auto) 0.4, Absolute Neuts (auto) 9.5 H, Absolute Lymphs (auto) 3.52, Nucleated RBC % 0, Sodium 132 L, Potassium 3.3 L, Chloride 101, Carbon Dioxide 21.0, Anion Gap 10, BUN 51 H, Creatinine 3.63 H, Estim Creat Clear Calc 12.15, Est GFR (MDRD) Af Amer 16 L, Est GFR (MDRD) Non-Af 13 L, BUN/Creatinine Ratio 14.0, Glucose 82, Calcium 7.2 L, Phosphorus 4.3, Magnesium 1.5 L, Total Bilirubin 0.30, AST 12 L, ALT < 6 L, Alkaline Phosphatase 72, Total Protein 6.8, Albumin 2.0 L, Globulin 4.8 H, Albumin/Globulin Ratio 0.4 L Clinical Impression(s) from Imaging Studies Renal Ultrasound 06/04/24 16:06 IMPRESSION: Unremarkable kidneys and urinary bladder. Charges/Coding Visit Charges Inpatient E&M: 49907 Subs Hosp L2
[2024-06-08 08:08] VITALS: BP 141/80; PULSE 72; RESP 18; TEMP 36.9; O2SAT 99
[2024-06-08 08:59] LABS: Absolute Lymphocyte Count 3.52 X10^3/uL (0.83-4.51); Absolute Neutrophil Count 9.5 X10^3/uL (2.0-7.7); Basophil# 0.06 X10^3/uL; Basophil% 0.4 % (0-1); Eosinophil# 0.28 X10^3/uL; Eosinophils% 1.9 % (0-5); Hematocrit 23.1 % (37-47); Hemoglobin 7.9 g/dL (12.0-15.0); Lymphocyte # 3.52 X10^3/ul (0.83-4.51); Lymphocyte % 23.9 % (19-41); Mean Corp Hgb Conc 34.2 g/dL (32-36); Mean Corpuscular Hgb 29.8 pg (27.0-32.0); Mean Corpuscular Volume 87.2 fL (81-99); Mean Platelet Vol. 9.4 fl (6.2-12.0); Monocyte# 1.31 X10^3/uL; Monocyte% 8.9 % (0-10); NRBC Flagged by Analyzer 0 % (0-5); Neutrophil # 9.47 X10^3/uL (2.7-7.7); Neutrophil % 64.5 % (47-70); Platelet Count 261 K/mm3 (150-450); RBC Distribution Width CV 13.7 % (11.6-14.6); RBC Distribution Width SD 42.8 fl (35.1-43.9); Red Blood Count 2.65 M/mm3 (4.2-5.4); White Blood Count 14.7 K/mm3 (4.4-11.0)
[2024-06-08 09:38] LABS: ALB/GLOB Ratio 0.4 RATIO (0.9-2.4); AST(SGOT) 12 U/L (15-37); Alanine Aminotransfer ALT/SGPT < 6 U/L (13-56); Alkaline Phosphatase 72 U/L (45-117); Anion Gap 10 (5-15); BUN 51 mg/dL (7-18); Calcium,Total 7.2 mg/dL (8.5-10.1); Chloride 101 mmol/L (98-107); Creatinine, Serum 3.63 mg/dL (0.55-1.02); EST Glomerular Filtration Rate 13 mL/min (>60); Est Glom Filt Rate - Afr Amer 16 mL/min (>60); Estimated Creatinine Clearance 12.15 ml/min; Globulin 4.8 g/dL (2.2-4.2); Glucose 82 mg/dL (74-106); Magnesium 1.5 mg/dL (1.6-2.6); Phosphorus 4.3 mg/dL (2.5-4.9); Potassium 3.3 mmol/L (3.5-5.1); Protein, Total 6.8 g/dL (6.4-8.2); Sodium Level 132 mmol/L (136-145)
[2024-06-08] MEDS: Meropenem 500 MG in 0.9% Normal Saline (50mL MB+) 50 ML 100 MG IV (09:44)
[2024-06-08] MEDS: levETIRAcetam 250 MG Tablet PO ×2 (09:47→22:15)
[2024-06-08] MEDS: KCL 20MEQ in 0.9% NS 20 MEQ/1,000 ML IV.SOLN. 75 MEQ IV ×2 (10:57→23:46)
[2024-06-08] MEDS: Scopolamine 1mg/72hr Patch 1 PATCH TD (10:57)
[2024-06-08] MEDS: Vancomycin HCl 250 MG Capsule PO ×3 (11:59→23:46)
[2024-06-08] MEDS: 0.9% Saline Lock 10 ML Syringe IV ×2 (12:19→16:57)
[2024-06-08] MEDS: Ondansetron 4 MG/2 ML Vial IV ×2 (12:19→20:15)
[2024-06-08 14:25] VITALS: BP 159/80; PULSE 74; RESP 18; TEMP 37; O2SAT 99
[2024-06-08 20:09] VITALS: BP 161/66; PULSE 74; RESP 18; TEMP 36.9; O2SAT 97
--- NOTE | 2024-06-08 21:09 | EX.PCM.PN.GI ---
Subjective Subjective Patient has not had any diary in 24 hours after her cholesterol was increased in the a.m. and p.m. Sh she did complain of some nausea and did vomit once. She has a known history of gastroparesis. She also suffers some chronic nausea secondary to depression. Objective Data Objective Data Vital Signs: Vital Signs Temp Pulse Resp BP Pulse Ox O2 Del Method 98.4 F 74 18 161/66 H 97 Room Air 06/08/24 20:09 06/08/24 20:09 06/08/24 20:09 06/08/24 20:09 06/08/24 20:09 06/08/24 20:09 Oxygen Delivery Method Room Air Weight: 114 lb 6.719 oz Body Mass Index (BMI) 19.6 Intake & Output: Intake and Output for Last 24 Hours 06/06/24 06/07/24 06/08/24 23:59 23:59 23:59 Intake Total 1630 / 2030 4166.66 / 4166.66 1265 / 1265 Output Total 1225 / 1700 3000 / 3600 2150 / 2150 Balance 405 / 330 1166.66 / 566.66 -885 / -885 Lab / Micro Data 06/08/24 08:40 06/08/24 08:40 Labs: Laboratory Results - last 24 hr 06/08/24 08:40: WBC 14.7 H, RBC 2.65 L, Hgb 7.9 L, Hct 23.1 L, MCV 87.2, MCH 29.8, MCHC 34.2, RDW Std Deviation 42.8, RDW Coeff of Xin 13.7, Plt Count 261, MPV 9.4, Immature Gran % (Auto) 0.400, Neut % (Auto) 64.5, Lymph % (Auto) 23.9, [place] % (Auto) 8.9, Eos % (Auto) 1.9, Baso % (Auto) 0.4, Absolute Neuts (auto) 9.5 H, Absolute Lymphs (auto) 3.52, Nucleated RBC % 0, Sodium 132 L, Potassium 3.3 L, Chloride 101, Carbon Dioxide 21.0, Anion Gap 10, BUN 51 H, Creatinine 3.63 H, Estim Creat Clear Calc 12.15, Est GFR (MDRD) Af Amer 16 L, Est GFR (MDRD) Non-Af 13 L, BUN/Creatinine Ratio 14.0, Glucose 82, Calcium 7.2 L, Phosphorus 4.3, Magnesium 1.5 L, Total Bilirubin 0.30, AST 12 L, ALT < 6 L, Alkaline Phosphatase 72, Total Protein 6.8, Albumin 2.0 L, Globulin 4.8 H, Albumin/Globulin Ratio 0.4 L Micro: Microbiology 06/04/24 22:10 Urine Catheter - Catheter Urine Culture - Final Klebsiella oxytoca Streptococcus agalactiae (B) 06/04/24 16:20 Blood Culture (Wb) - Anticubital Left Blood Culture - Preliminary No growth in 48 hours. 06/05/24 19:00 Stool Enteric Bacteriology - Final 06/05/24 19:00 Stool C. difficile GDH Antigen & Toxins - Final 06/05/24 19:00 Stool Clostridioides difficile (PCR) - Final Physical Exam Const alert, oriented x3 and no apparent distress General Appearance: frail Orientation / Consciousness: oriented to person, oriented to place and oriented to time Nutritional Appearance: cachectic HEENT normocephalic Head and Scalp: atraumatic Neck no lymphadenopathy Resp no use of accessory muscles and clear to auscultation bilaterally Cardio regular rate GI non-tender Auscultation: normoactive bowel sounds Skin no rashes or lesions noted Neuro Sensorium / Orientation: awake and alert Psych cooperative Assessment & Plan Assessment/Plan (1) Acute neck pain: (2) Gastroparesis: (3) Nausea & vomiting: (4) Diarrhea: QUALIFIERS: Diarrhea type: functional diarrhea Qualified Code(s): K59.1 - Functional diarrhea PLAN: Plan 69-year-old with past medical history of diabetes mellitus complicated by gastroparesis, bacterial overgrowth, 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 She also currently has C. difficile colitis. 06/07/24-She is C. difficile positive for A&B antigen and she's PCR positive for history of CDiff. She is currently on vancomycin and Flagyl. I will increase her colestipol to 3 g p.o. twice daily. I would recommend monoclonal antibody as an outpatient for toxin B. 06/08/24-. I would put her on scheduled Reglan IV 5 mg Q6 hours around the clock. I also think she's improving from diarrhea standpoint, so I would stop her and continue vancomycin. She also would be a good candidate for BuSpar 5 mg three times a day due to history of depression and gastroparesis as it can help. with diarrhea and gastroparesis. Charges/Coding Visit Charges Inpatient E&M: 52159 Subs Hosp L3
[2024-06-09 05:22] VITALS: BP 163/66; PULSE 68; RESP 18; TEMP 36.8; O2SAT 98
[2024-06-09 05:44] VITALS: BP 163/66; PULSE 68
[2024-06-09] MEDS: hydrALAZINE 20 MG/ML Vial 10 MG IV (05:44)
[2024-06-09] MEDS: Metoclopramide 10 MG/2 ML Vial 5 MG IV (05:44)
[2024-06-09] MEDS: Menthol/Lanolin/Calamine/Znox 113 GM Tube 1 APPLIC TOPICAL (05:50)
[2024-06-09 06:01] LABS: Absolute Lymphocyte Count 4.03 X10^3/uL (0.83-4.51); Absolute Neutrophil Count 8.8 X10^3/uL (2.0-7.7); Basophil# 0.06 X10^3/uL; Basophil% 0.4 % (0-1); Eosinophil# 0.45 X10^3/uL; Eosinophils% 3.1 % (0-5); Hematocrit 23.6 % (37-47); Hemoglobin 7.9 g/dL (12.0-15.0); Lymphocyte # 4.03 X10^3/ul (0.83-4.51); Lymphocyte % 27.6 % (19-41); Mean Corp Hgb Conc 33.5 g/dL (32-36); Mean Corpuscular Volume 89.7 fL (81-99); Mean Platelet Vol. 9.8 fl (6.2-12.0); Monocyte# 1.19 X10^3/uL; Monocyte% 8.1 % (0-10); NRBC Flagged by Analyzer 0 % (0-5); Neutrophil # 8.82 X10^3/uL (2.7-7.7); Neutrophil % 60.4 % (47-70); Platelet Count 278 K/mm3 (150-450); RBC Distribution Width CV 14.1 % (11.6-14.6); RBC Distribution Width SD 45.6 fl (35.1-43.9); Red Blood Count 2.63 M/mm3 (4.2-5.4); White Blood Count 14.6 K/mm3 (4.4-11.0)
[2024-06-09] MEDS: Vancomycin HCl 250 MG Capsule PO ×2 (06:44→11:51)
[2024-06-09] MEDS: Colestipol 1 GM TABLET 3 GM PO (06:44)
[2024-06-09] MEDS: levETIRAcetam 250 MG Tablet PO (08:11)
[2024-06-09 08:19] LABS: Anion Gap 8 (5-15); BUN 45 mg/dL (7-18); BUN/Creat Ratio 13.4 RATIO (10-20); Calcium,Total 7.4 mg/dL (8.5-10.1); Chloride 106 mmol/L (98-107); Creatinine, Serum 3.35 mg/dL (0.55-1.02); EST Glomerular Filtration Rate 15 mL/min (>60); Est Glom Filt Rate - Afr Amer 18 mL/min (>60); Estimated Creatinine Clearance 13.17 ml/min; Glucose 82 mg/dL (74-106); Potassium 3.5 mmol/L (3.5-5.1); Sodium Level 135 mmol/L (136-145)
[2024-06-09] MEDS: Meropenem 500 MG in 0.9% Normal Saline (50mL MB+) 50 ML 100 MG IV (09:58)
[2024-06-09 10:22] VITALS: BP 139/73; PULSE 74; RESP 18; TEMP 36.9; O2SAT 98
--- NOTE | 2024-06-09 10:37 | TREXTCAR_ITS ---
Diet Diet Order/Speech Therapy: 06/04/24 17:00 Diet: Regular - General Food consistency:: Regular Liquid Consistency:: Regular/Thin Type of Dietary Supplement:: Ensure Clear Diet Comments: 8oz EC w/L&D. Butter and 2cups hot water with each tray.Open containers Wound(s) right foot stump: Wound Type: Neuropathic/Diabetic Foot Ulcer left outer foot stump: Wound Type: Stasis Ulcer Problem/Diagnosis (1) Acute neck pain: Status: Resolved Code(s): M54.2 - Cervicalgia (2) Gastroparesis: Status: Inactive Code(s): K31.84 - Gastroparesis (3) Nausea & vomiting: Status: Resolved Code(s): R11.2 - Nausea with vomiting, unspecified (4) Diarrhea: Status: Resolved Code(s): R19.7 - Diarrhea, unspecified Plan 69-year-old female was admitted from [facility] for abnormal labs. She had diarrhea. Labs showed elevated WBC count, low bicarb, elevated creatinine. Patient is DNR CC comfort care. 1. ANNIKA with high anion gap severe metabolic acidosis: The patient admitted Medr floor. BUN 57, creatinine 4.89. Bicarbonate 8 and anion gap 14. Patient was given sodium bicarb Drip x 1 L and then switched to lactated Ringer. started on sodium bicarb 150 mill per hour for 2 L. Has Nguyen catheter. Palliative Care Nurse is consulted. UA shows WBC more than 100 cells, RBC 50-100, LE 500, nitrite negative. Mild proteinuria. Kidneys and bladder ultrasound ordered. Patient denies new lower urinary tract symptoms including burning micturition increased frequency or urgency. States her urine is very dirty interpret. Patient is allergic to penicillin and cephalosporin with anaphylactic reaction. Previous urine culture shows E. coli and Klebsiella resistant to lexis quinolone. ID consulted because of complicated infection history 06/06: BUNs/creatinine 61/4.79. Discussed with the insulation worker interior surface. Continue IV fluid bicarb drip. Electrolytes shows low sodium hyponatremia 130, potassium normal. High anion gap metabolic acidosis, bicarb low at 16 with anion gap 13. Improvement in sodium and metabolic acidosis 06/07: Hyponatremia, hypokalemia, hypochloremia, high anion gap metabolic acidosis. BUN/creatinine 56/4.12. Patient started on IV fluid normal saline, potassium replacement and bicarb tablet. Renal ultrasound reported unremarkable. has Nguyen catheter. 06/08: Serum sodium 132, potassium 3.3, bicarb 21. Continue IV fluid normal saline plus potassium replacement and bicarb tablet. BUNs/creatinine 51/3.63, improving. 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 difficile about 8 years ago and was resistant to multiple treatment and at last fecal transplant was recommended but it was during COVID time therefore did not happen. Patient is still has diarrhea. She follows Dr. Melissa and probably has rapid bowel transit. 06/06: WBC count is normal. C. difficile PCR and antigen A and B+ but toxin is negative therefore she has chronic history of C. difficile. Diarrhea is better. Patient does not want to vancomycin overall therefore discontinued 06/07: Urine culture shows Klebsiella oxytoca more than 100,000 colonies, beta Streptococcus 25,000?50,000. Klebsiella ESBL negative, resistant to fluoroquinolone, Bactrim, and ampicillin. Enteric bacteriology is negative. 06/08: Patient has history of gastroparesis due to DM type II, bacterial overgrowth, and recurrent history of C. difficile. Patient agreed to take vancomycin and IV Flagyl. She has history of collagenous colitis may be considered Budenoside as an outpatient in the office. On colestipol increased to 3 g twice daily. Flagyl discontinued because of increased nausea and vomiting. Continue IV meropenem. #3 multiple chronic conditions including small intestinal bacterial overgrowth, collagenous colitis with history of recurrent C. difficile 06/06: Patient wants to see GI doctor friend therefore consulted 06/07: Patient wants to try fecal transplant but I think it is not done any [facility] [place]. May need to consider outside tertiary care center. 4. Chronic debility-history of bilateral diabetic feet ulcer with left foot transmetatarsal amputation: Patient states she would like to go to a different nursing facility, health care social worker made aware of that 5. Chronic seizure/epilepsy disorder-patient is on Keppra Microbiology Past 72 Hours 06/04/24 22:10 Urine Catheter - Catheter Urine Culture - Final Klebsiella oxytoca Streptococcus agalactiae (B) 06/04/24 16:20 Blood Culture (Wb) - Anticubital Left Blood Culture - Preliminary No growth in 48 hours. 06/05/24 19:00 Stool Enteric Bacteriology - Final 06/05/24 19:00 Stool C. difficile GDH Antigen & Toxins - Final 06/05/24 19:00 Stool Clostridioides difficile (PCR) - Final Laboratory Results 06/08/24 08:40: WBC 14.7 H, RBC 2.65 L, Hgb 7.9 L, Hct 23.1 L, MCV 87.2, MCH 29.8, MCHC 34.2, RDW Std Deviation 42.8, RDW Coeff of Xin 13.7, Plt Count 261, MPV 9.4, Immature Gran % (Auto) 0.400, Neut % (Auto) 64.5, Lymph % (Auto) 23.9, [place] % (Auto) 8.9, Eos % (Auto) 1.9, Baso % (Auto) 0.4, Absolute Neuts (auto) 9.5 H, Absolute Lymphs (auto) 3.52, Nucleated RBC % 0, Sodium 132 L, Potassium 3.3 L, Chloride 101, Carbon Dioxide 21.0, Anion Gap 10, BUN 51 H, Creatinine 3.63 H, Estim Creat Clear Calc 12.15, Est GFR (MDRD) Af Amer 16 L, Est GFR (MDRD) Non-Af 13 L, BUN/Creatinine Ratio 14.0, Glucose 82, Calcium 7.2 L, Phosphorus 4.3, Magnesium 1.5 L, Total Bilirubin 0.30, AST 12 L, ALT < 6 L, Alkaline Phosphatase 72, Total Protein 6.8, Albumin 2.0 L, Globulin 4.8 H, Albumin/Globulin Ratio 0.4 L Clinical Impression(s) from Imaging Studies Renal Ultrasound 06/04/24 16:06 IMPRESSION: Unremarkable kidneys and urinary bladder. Allergies/Procedures Done in Hospital Allergies cefprozil Allergy (Verified 06/04/24 12:47) Shortness of breath ceftriaxone Allergy (Verified 06/04/24 12:47) Hives clindamycin Allergy (Verified 06/04/24 12:47) Rash enalapril Allergy (Verified 06/04/24 12:47) Other enoxaparin Allergy (Verified 06/04/24 12:47) Rash heparin Allergy (Verified 06/04/24 12:47) Rash levalbuterol Allergy (Verified 06/04/24 12:47) Other morphine Allergy (Verified 08/06/24 12:47) Shortness of breath Penicillins Allergy (Verified 06/04/24 12:47) Anaphylaxis valsartan Allergy (Verified 06/04/24 12:47) Other vancomycin Allergy (Verified 06/04/24 12:47) Rash pt states oral preparation she has no issues with, but iv she develops a rash atorvastatin Adverse Reaction (Verified 06/04/24 12:47) Other rosuvastatin (From Crestor) Adverse Reaction (Verified 06/04/24 12:47) Other Type of Care/Length of Stay Estimated LOS: Convalescent Care Less Than 30 days Type of Care Needed: Skilled Rehab Potential: Good Prognosis: Good Additional Orders/Day of Discharge Day of Discharge: 06/09/24 Dietary and Speech 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s Dietitian 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s/Changes: Continue Regular diet to optimize oral intakes. RD will order 240mL Ensure Clear BIDto provide supplemental energy. Will add butter and 2 cups of hot water on meal trays. Needs assistance opening containers. Discharge Plan Admission Admit Date/Time: 06/04/24 15:45 Primary Reason for Your Visit: chronic diarrhea Attending Provider: Toño Salas Primary Care Provider: Cody Billings Consulting Providers: Dorothy Montgomery; Vance Alcaraz; Kentrell Iqbal Discharge Orders/Prescriptions Prescriptions: New vancomycin 250 mg Capsule 250 mg PO Q6 21 Days Qty: 0 0RF sodium bicarbonate 650 mg Tablet 650 mg PO TID 30 Days Qty: 0 0RF scopolamine base 1 mg over 3 days Patch 3 Day 1 patch transdermal Q3D Qty: 0 0RF magnesium chloride [Mag 64] 64 mg Tablet,Delayed Release (Dr/Ec) 128 mg PO BID 3 Days Qty: 6 0RF colestipol 1 gram Tablet 3 g PO 0600,1700 Qty: 0 0RF Continued folic acid 1 mg tablet 1 mg PO DAILY Qty: 30 11RF pantoprazole 40 mg Tablet,Delayed Release (Dr/Ec) 40 mg PO DAILY Culturelle 10 billion cell Capsule 1 cap PO DAILY melatonin 3 mg tablet 3 mg PO QHS PRN (Reason: SLEEP ) ergocalciferol (vitamin D2) 1,250 mcg (50,000 unit) capsule 1,250 mcg PO WE Boost Breeze Nutritional 0.04-1.05 gram-kcal/mL liquid 120 ml PO TID levetiracetam [Keppra] 250 mg tablet 250 mg PO BID Freeze It Relief 0.2-3.5 % gel 1 applic topical BID Patient Comments: APPLY TOPICALLY TO NECK, UPPER BACK, AND SHOULDERS TWICE DAILY albuterol sulfate [Ventolin HFA] 90 mcg/actuation Hfa Aerosol Inhaler 1 puff inhalation Q4H PRN (Reason: SHORTNESS OF BREATH) ondansetron 4 mg Tablet,Disintegrating 4 mg PO Q6H PRN (Reason: NAUSEA) cyclobenzaprine 5 mg Tablet 5 mg PO TID PRN (Reason: MUSCLE SPASMS) Qty: 0 0RF Changed acetaminophen 500 mg Tablet 1,000 mg PO Q8H PRN (Reason: Pain Score 1-5) 3 Days Qty: 0 0RF Rx Instructions: Not more than 3 g/day Referrals / Follow Up: Cody Billings MD [Primary Care Provider] - Within 2 Weeks Bandar Melissa DO [Med Staff - Active Staff] - Within 1 Month (For referral to fecal transplant) Kentrell Iqbal MD [Med Staff - Active Staff] - Within 2 Weeks (Recurrent CAUTI/Ciff) Disposition Disposition (needs filled in before D/C Order can be placed): [facility] (4) Diarrhea Qualifiers: Diarrhea type: functional diarrhea Qualified Code(s): K59.1 - Functional diarrhea
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
[2024-06-09 12:18] VITALS: BP 142/84; PULSE 76; RESP 18; TEMP 36.4; O2SAT 99
--- NOTE | 2024-06-09 12:26 | NURSING ---
Report called to Paloma at [facility] [phone]. Pt will be picked up at 14:00.
[2024-06-09] MEDS: Magnesium Chloride 64 MG Delay Rel.Tablet 128 MG PO (12:31)
[2024-06-09] MEDS: Ertapenem Sod 0.5 GM in 0.9% Normal Saline (50mL Bag) 50 ML IV (12:40)
== END 2024-06-09 14:51 | disposition skilled nursing facility (03) | DRG 640 ==
LOC: ED 14:13 → MS3 16:41
PROVIDERS: Family Medicine; Admitting Provider Internal Medicine; Emergency Provider Emergency Medicine; PCP Family Medicine; Visit Provider Internal Medicine
DX: E87.1 Hypo-osmolality and hyponatremia (principal); N17.0 Acute kidney failure with tubular necrosis; E46 Unspecified protein-calorie malnutrition; A04.71 Enterocolitis due to Clostridium difficile, recurrent; Z68.1 Body mass index [BMI] 19.9 or less, adult; E87.21 Acute metabolic acidosis; L89.611 Pressure ulcer of right heel, stage 1; E11.22 Type 2 diabetes mellitus with diabetic chronic kidney disease; B96.1 Klebsiella pneumoniae [K. pneumoniae] as the cause of diseases classified elsewhere; G40.909 Epilepsy, unspecified, not intractable, without status epilepticus; N18.9 Chronic kidney disease, unspecified; F32.A Depression, unspecified; E11.622 Type 2 diabetes mellitus with other skin ulcer; L89.621 Pressure ulcer of left heel, stage 1; E11.43 Type 2 diabetes mellitus with diabetic autonomic (poly)neuropathy; E11.42 Type 2 diabetes mellitus with diabetic polyneuropathy; E87.8 Other disorders of electrolyte and fluid balance, not elsewhere classified; G43.909 Migraine, unspecified, not intractable, without status migrainosus; K31.84 Gastroparesis; K57.30 Diverticulosis of large intestine without perforation or abscess without bleeding; K44.9 Diaphragmatic hernia without obstruction or gangrene; K52.831 Collagenous colitis; E87.6 Hypokalemia; K59.1 Functional diarrhea; R53.81 Other malaise; Z51.5 Encounter for palliative care; Z66 Do not resuscitate
CPT/HCPCS: 36415; 76770; 80048; 80053; 81001; 83735; 84100; 85025; 87040; 87077; 87086; 87088; 87186; 87493; 87506; 97110; 97162; 97166; 97530; 97535; 99284; J2185; J7030; J7120; A4216; J2405; J3490

== ENCOUNTER 2024-10-15 10:45 | Outpatient (RCR) | payer MEDICARE, OTHER, SELFPAY ==
[2024-10-15 11:14] VITALS: BP 67/33; PULSE 71; RESP 18; TEMP 35.8
--- NOTE | 2024-10-15 11:19 | WC ---
Pt in with family for initial visit d/t bilateral heel pressure ulcers. She is not very alert, unable to focus, has low bp of 67/33 with pulse of 71. Pt is diabetic with sugar taken in office at 61. Left face drooping, and no left side strength. Dr and nurse manager interventional notified and in room. Talked with family and made the decision to have pt transport to ER, transported by squad.
--- NOTE | 2024-10-15 11:46 | PCM.WC.PN ---
History of Present Illness Date of Service: 10/15/24 Chief Complaint: Right posterior heel ulceration History of Wound: 67-year-old female recently follow-up bilateral heel wounds. Denies constitutional symptoms. Denies pain. No other complaints. Objective Data Objective Data Vital Signs: Vital Signs Temp Pulse Resp BP O2 Del Method 96.5 F L 71 18 67/33 L Room Air 10/15/24 11:14 10/15/24 11:14 10/15/24 11:14 10/15/24 11:14 10/15/24 11:14 Oxygen Delivery Method Room Air Debridement Note Debridement Note Post-Debridement Measurements and Additional Note: Post-Debridement Measurements/Treatment - Nurse 1 - General Ulcer Assessment Start: 10/15/24 10:53 Freq: Status: Active Protocol: [place] Activity Type Activity Date Activity User E-sign Co-sign Detail Recorded Client Recorded Date Recorded By Document 10/15/24 11:14 KW [email or web address] 10/15/24 11:17 KW 10/15/24 11:14 - Today's Visit Information Type of service Initial Visit Arrival Mode Wheelchair Accompanied by son and daughter Patient Identification Verified (Name & Yes ) Finger Stick Blood Sugar(mg/dl) (if 61 indicated): Blood Sugar Done During this Visit Vital Signs Temperature (97.8 F-99.1 F) 96.5 F L Temperature Source Temporal Pulse Rate (60-100) 71 Pulse Location Monitor Respiratory Rate (12-18) 18 Respiratory rate source Observation Oxygen Delivery Method Room Air Blood Pressure (90/60-120/80) 67/33 L Blood Pressure Mean (mm Hg) 44 Source Monitor Position Sitting Blood Pressure Location Right Arm Pain Scale: 0-10 Numeric Is Patient Pain Free? Yes Assessment/Plan Assessment/Plan (1) Pressure ulcer of right heel, stage 3: CODE(S): L89.613 - Pressure ulcer of right heel, stage 3 PLAN: Plan Patient very briefly evaluated Patient presented with altered mental status and significant hypotension Heel wounds were evaluated demonstrated stable nature without acute infection Due to recent history of CVA and new onset altered mental status with hypotension patient was sent directly to the ER by squad Will likely reevaluate wounds in the hospital care setting pending consultation
[2024-10-31 15:22] LABS: Bedside Glucose 61 mg/dL (74-106)
== END 2024-10-29 23:59 | disposition home or self-care (01) ==
LOC: WC 10:45
PROVIDERS: PCP Family Medicine; Referring Provider Family Medicine; Visit Provider Podiatrist
DX: L89.613 Pressure ulcer of right heel, stage 3 (principal); Z86.73 Personal history of transient ischemic attack (TIA), and cerebral infarction without residual deficits; R41.82 Altered mental status, unspecified; I95.9 Hypotension, unspecified
CPT/HCPCS: 82962

== ENCOUNTER 2024-10-15 11:38 | Inpatient (IN) | payer MEDICARE, OTHER, SELFPAY ==
[2024-10-15] VITALS (23 sets, daily range): BP systolic 85–147; BP diastolic 44–128; PULSE 67–90; RESP 15–22; TEMP 36.4–36.6; O2SAT 91–100; BMI 22.3; BMI 22.1
--- NOTE | 2024-10-15 12:04 | EKG12_ITS ---
Test Reason : SEPSIS Blood Pressure : */* mmHG Vent. Rate : 74 BPM Atrial Rate : 74 BPM P-R Int : 172 ms QRS Dur : 86 ms QT Int : 388 ms P-R-T Axes : 81 -23 94 degrees QTcB Int : 430 ms Normal sinus rhythm Low voltage QRS Nonspecific ST and T wave abnormality Abnormal ECG Confirmed by LANCE BERRIOS, ARTEMIO ([id number]), fan mail editor GEE YEBOAH ([id number]) on 10/17/2024 10:47:04 AM Referred By: Confirmed By: ARTEMIO LUCAS MD
--- NOTE | 2024-10-15 12:06 | EX.ED.DYSGE1 ---
HPI History of Present Illness Chief Complaint: Hypoglycemia Informant: patient and EMS Onset/Context/Timing Onset: Today Current Severity: Severe Maximum Severity: Severe Narrative Narrative: 69-year-old female history of diabetes, DVT and benign brain tumor. Reportedly was at the wound care center today. Was evaluated by podiatry Dr. Amador who called me from the wound care center and said the patient had decreased mental status, was hypotensive and he was sent to the emergency department. He did not think it was from her heel wounds. He said those did not look infected. Patient herself is a limited informant. Prior similar symptoms: No Recent Illness/Hospitalization: No [facility] Medical History Anemia in chronic illness Non-pressure chronic ulcer of left heel and midfoot with fat layer exposed PAD (peripheral artery disease) Neurapraxia History of benign brain tumor Type 2 diabetes mellitus with other skin ulcer Type 2 diabetes mellitus with foot ulcer Chronic deep vein thrombosis (DVT) of left lower extremity IBS (irritable bowel syndrome) Peripheral vascular disease, unspecified Non-pressure chronic ulcer of other part of right foot with fat layer exposed Asthma Malnutrition Difficulty in walking, not elsewhere classified Gastroparesis Acute renal insufficiency Urge incontinence Hydronephrosis Unable to ambulate Generalized weakness Non-pressure chronic ulcer of other part of right foot with fat layer exposed History of myocardial infarction History of cerebrovascular accident History of deep venous thrombosis (DVT) of distal vein of left lower extremity History of ischemic colitis Ulcer of amputation stump of foot Wound of left foot PAD (peripheral artery disease) Deep venous thrombosis of distal end of left lower extremity Type 2 diabetes mellitus with diabetic polyneuropathy Gastroesophageal reflux disease Osteoarthritis of cervical and lumbar spine Chronic diarrhea Brain tumor (benign) Diabetic foot ulcer Debility History of pneumonia Migraine Home Medications ?Medication ?Instructions ?Recorded ?Last Taken ?Type folic acid 1 mg tablet 1 mg PO DAILY SUPPLEMENT #30 tabs 02/15/23 04/09/23 Rx Lactobacillus rhamnosus GG 10 1 cap PO DAILY GUT HEALTH 04/10/23 04/09/23 History billion cell capsule (Culturelle) pantoprazole 40 mg tablet,delayed 40 mg PO DAILY GERD 04/10/23 02/02/24 06:00 History release albuterol sulfate 90 mcg/actuation 1 puff inhalation Q4H PRN 04/25/24 Unknown History aerosol inhaler (Ventolin HFA) SHORTNESS OF BREATH camphor-menthol 0.2 %-3.5 % 1 applic topical BID pain 04/25/24 Unknown History topical gel (Freeze It Relief) ergocalciferol (vitamin D2) 1,250 1,250 mcg PO WE SUPPLEMENT 04/25/24 05/29/24 History mcg (50,000 unit) capsule food supplemt, lactose-reduced 120 ml PO TID 04/25/24 Unknown History 0.04 gram-1.05 kcal/mL oral liquid (Boost Breeze Nutritional) levetiracetam 250 mg tablet 250 mg PO BID EPILEPSY 04/25/24 Unknown History (Keppra) melatonin 3 mg tablet 3 mg PO QHS PRN SLEEP 04/25/24 Unknown History ondansetron 4 mg disintegrating 4 mg PO Q6H PRN NAUSEA 04/25/24 Unknown History tablet cyclobenzaprine 5 mg tablet 5 mg PO TID PRN MUSCLE SPASMS #0 04/28/24 Unknown Rx tabs acetaminophen 500 mg tablet 1,000 mg (2 x 500 mg) PO Q8H PRN 06/09/24 Unknown Rx Pain Score 1-5 3 days #0 tabs colestipol 1 gram tablet 3 g (3 x 1 gram) PO 0600,1700 #0 06/09/24 Unknown Rx tabs magnesium chloride 64 mg 128 mg (2 x 64 mg) PO BID 3 days 06/09/24 Unknown Rx (magnesium chloride) #6 tabs tablet,delayed release (Mag 64) scopolamine base 1 mg over 3 days 1 patch transdermal Q3D #0 ea 06/09/24 Unknown Rx transdermal patch sodium bicarbonate 650 mg tablet 650 mg PO TID 1 month #0 tabs 06/09/24 Unknown Rx tamsulosin 0.4 mg capsule (Flomax) 0.4 mg PO DAILY #30 caps 06/09/24 Unknown Rx vancomycin 250 mg capsule 250 mg PO Q6 3 weeks #0 caps 06/09/24 Unknown Rx Allergy/AdvReac Type Severity Reaction Status Date / Time cefprozil Allergy Shortness Verified 06/04/24 12:47 of breath ceftriaxone Allergy Hives Verified 06/04/24 12:47 clindamycin Allergy Rash Verified 06/04/24 12:47 enalapril Allergy Other Verified 06/04/24 12:47 enoxaparin Allergy Rash Verified 06/04/24 12:47 heparin Allergy Rash Verified 06/04/24 12:47 levalbuterol Allergy Other Verified 06/04/24 12:47 morphine Allergy Shortness Verified 06/04/24 12:47 of breath Penicillins Allergy Anaphylaxis Verified 06/04/24 12:47 valsartan Allergy Other Verified 06/04/24 12:47 vancomycin Allergy Rash Verified 06/04/24 12:47 atorvastatin AdvReac Other Verified 06/04/24 12:47 rosuvastatin (From Crestor) AdvReac Other Verified 06/04/24 12:47 Family History Mother Cancer Lung CA w/ tobacco use history. Diabetes COPD (chronic obstructive pulmonary disease) Father Cancer Lung CA w/ tobacco use history. Diabetes COPD (chronic obstructive pulmonary disease) Heart disease Surgical History Status post transmetatarsal amputation of left foot History of eye surgery History of lumpectomy History of foot surgery History of tubal ligation History of appendectomy Tubal ligation status Social History household members: none Smoking Status: Never smoker alcohol intake: never substance use type: does not use ROS ROS ED ROS Narrative Patient is a limited informant. Review of Systems ROS Unobtainable: due to mental condition EXAM Physical Exam Narrative Exam Narrative: 69-year-old female looks much older than her biological age. Her initial blood pressure was 99/70. She is afebrile with an oral temperature 97.8. Her pulse ox is 98% on room air no hypoxia. H EENT exam pupils round reactive light. Moist mucous membranes. No trauma to her face or scalp. Neck nontender no lymphadenopathy. Lungs clear to auscultation bilaterally. Heart regular rhythm rate about 80 no murmur. Chest wall ribs nontender. Abdomen soft nontender. She has normal dining room tables set up attendant strength in her right hand she is weak with the left hand. I do not know that is new or old. Lower extremities have wound dressings on both heels. She is very weak in both lower extremities. Neurologically she does open her eyes. She attempts to follow some commands. She is a very limited informant. Const Vital Signs: 10/15/24 11:40 10/15/24 11:44 10/15/24 11:46 Temperature 97.8 F 97.8 F Temperature Source Oral Oral Pulse Rate 78 78 Respiratory Rate 18 17 Respiratory Pattern Normal Blood Pressure 99/70 99/70 Blood Pressure Mean 79 79 Pulse Ox 98 98 Oxygen Delivery Method Room Air Room Air Oxygen Flow Rate (L/min) 10/15/24 12:39 10/15/24 12:44 10/15/24 12:47 Temperature 97.7 F L Temperature Source Oral Pulse Rate 70 72 Respiratory Rate 15 18 Respiratory Pattern Blood Pressure 101/63 Blood Pressure Mean 75 Pulse Ox 95 93 91 Oxygen Delivery Method Nasal Cannula Nasal Cannula Nasal Cannula Oxygen Flow Rate (L/min) 5 5 4 10/15/24 13:00 10/15/24 14:00 10/15/24 15:00 Temperature 97.7 F L Temperature Source Oral Pulse Rate 69 87 Respiratory Rate 18 18 18 Respiratory Pattern Blood Pressure 101/63 108/72 124/108 H Blood Pressure Mean 75 84 113 Pulse Ox 93 96 93 Oxygen Delivery Method Nasal Cannula Nasal Cannula CPAP Oxygen Flow Rate (L/min) 5 5 10/15/24 16:00 Temperature Temperature Source Pulse Rate 77 Respiratory Rate 19 H Respiratory Pattern Blood Pressure 139/128 H Blood Pressure Mean 131 Pulse Ox 96 Oxygen Delivery Method Nasal Cannula Oxygen Flow Rate (L/min) 5 Positive well nourished and well developed; Negative for obese, cachectic or contractures General Appearance ED: well developed and pallor; Negative for cachectic, contractures, cyanotic, diaphoretic or NAD Nutritional Appearance: Negative for cachectic or obese HEENT Reports moist mucous membranes Negative for trauma or tenderness Eyes PERRL and EOMs intact bilaterally Neck no lymphadenopathy, supple and no JVD General: Negative for tenderness Lymph Lymphatic: Negative for other Chest Wall inspection of chest normal and palpation of chest normal Resp normal respiratory effort and clear to auscultation bilaterally Effort and Inspection: Negative for retractions or pain with movement Auscultation: Negative for rales, rhonchi or wheezes Cardio regular rate, regular rhythm, S1 normal heart sound and S2 normal heart sound GI normal to inspection, nondistended, normoactive bowel sounds, non-tender, non-distended and no masses Back/Spine no CVA tenderness Cervical Spine: Negative for cervical spine tenderness Thoracic Spine / Upper Back: Negative for thoracic spinal tenderness or paraspinal muscle tenderness Lumbar Spine / Lower Back: Negative for lumbar spinal tenderness Extremity Negative for normal to inspection Extremity Narrative: Left upper extremity weakness. Bilateral lower extremity weakness. Pale. Dressings on heel wounds. General Extremety ED: Negative for edema or tenderness General Extremity: Negative for edema Neuro No oriented x3 Neuro Narrative: Limited informant. Follows limited commands. Generally weak. Will open her eyes. Does try to answer some questions. Sensorium / Orientation: orientation impaired and lethargic Motor Exam: strength abnormal; Negative for strength 5/5 throughout Psych mental status grossly normal Mood & Affect: Negative for depressed or tearful Skin no rashes or lesions noted and No no wounds Skin Narrative: Bilateral heel wounds. General Skin Exam: pallor; Negative for jaundice Lesions: No lesion noted Rashes: No rashes noted Trauma: Negative for abrasion Wounds: wounds noted MDM MDM MDM Narrative Medical decision making narrative: 69-year-old female from [facility] with decreased mental status and hypotensive consider sepsis versus other etiologies. IV fluid bolus and sepsis workup. Repeat exam patient responded to fluids currently she is normotensive. Due to her high white count, UTI and intra-abdominal fistulas I think she is septic. She has multiple antibiotic allergies. Initialized on give her Zosyn but she has anaphylactic reaction reportedly penicillins. She cannot do clindamycin. I started her on Cipro and Flagyl. I spoke to our general surgeon here about her CAT scan results. He felt she would be better served at a larger facility. I spoke to [facility] They do not have any beds available most likely will not for more than 3 days. I spoke to [facility] and again they have no beds available. I spoke to [facility] they believe they might have a bed. I initially requested ICU they are going to speak to the hospitalist and get back to us. I have discussed the patient's care with both her daughter at bedside and son via phone. The patient be turned over to the afternoon physician. If [facility] is unable to accept the patient due to bed availability then she will be admitted here. History & Record Review Discussion w/independent historian: Patient Additional record(s) reviewed:: Prior inpatient record, Prior outpatient record, Prior ED visit and Prior labs Lab Data Attestation: I reviewed the patient's lab results. Lab results narrative: CBC shows a white count of 24,000. H&H is 7.4 and 24.1. Platelets 220. PT/INR of 18 and 1.6. PTT of 40. Electrolytes show gap 5. BUN of 30 creatinine of 2. History of chronic kidney disease. Glucose 63. Liver enzymes unremarkable. Lactic acid is 2.0. Urinalysis no nitrites. 0 red cells. Great 100 white cells consistent with UTI. 4+ bacteria. Culture was sent. CAT scan shows pelvic masses with fistulous concern for possible malignancy. Chest x-ray is unremarkable. Labs: Laboratory Results - last 24 hr 10/15/24 10/15/24 10/15/24 12:00 12:40 13:00 WBC 24.1 H RBC 2.29 L Hgb 7.4 L Hct 24.1 L MCV 105.2 H MCH 32.3 H MCHC 30.7 L RDW Std Deviation 67.2 H RDW Coeff of Xin 17.5 H Plt Count 220 MPV 10.1 Immature Gran % (Auto) 1.700 H Neut % (Auto) 83.3 H Lymph % (Auto) 10.5 L Geary % (Auto) 3.9 Eos % (Auto) 0.1 Baso % (Auto) 0.5 Absolute Neuts (auto) 20.1 H Absolute Lymphs (auto) 2.53 Nucleated RBC % 0 Differential Comment SCANNED Anisocytosis 2+ PT 18.5 H INR 1.6 APTT 40.0 H Sodium 138 Potassium 4.5 Chloride 115 H Carbon Dioxide 18.0 L Anion Gap 5 BUN 30 H Creatinine 2.00 H Estim Creat Clear Calc 23.25 Est GFR (MDRD) Af Amer 32 L Est GFR (MDRD) Non-Af 26 L BUN/Creatinine Ratio 15.0 Glucose 63 L Lactic Acid 2.0 Calcium 7.8 L Total Bilirubin 0.30 AST 22 ALT 11 L Alkaline Phosphatase 139 H Total Protein 7.7 Albumin 1.3 L Globulin 6.4 H Albumin/Globulin Ratio 0.2 L Urine Color Yellow Urine Clarity Cloudy Urine pH 5.0 Ur Specific [place] 1.015 Urine Protein 30 H Urine Glucose (UA) Normal Urine Ketones Negative Urine Occult Blood 50 H Urine Nitrite Negative Urine Bilirubin Negative Urine Urobilinogen Normal Ur Leukocyte Esterase 500 H Urine RBC 0-5 SEEN Urine WBC >100 SEEN Ur Squamous Epith Cells 0-5 SEEN Urine Bacteria 4+ Urine Mucus 0 SEEN Radiography Chest X-Ray - ED: Read by ED Physician, Heart, Lungs, Mediastinum, Bony Structures, No Acute Disease and Chronic Changes Diagnostic Testing: Clinical Impression(s) from Imaging Studies Abdomen/Pelvis CT 10/15/24 13:05 IMPRESSION: 1. [place]-ovarian/colo-uterine fistula with abnormal fistulous track and adhesion of the proximal sigmoid colon in the left upper pelvis connected to the right ovary which contains air and stool contents in continuity with the left side of the uterus see images 78/103 through 83/123 series 2. No abscess or free air is present in the peritoneal space. 2. A second fistulous connection or adhesion is present at the left posterior aspect of the uterus with the rectum see image #88/123 series 2. No visualized colonic masses. No visualized diverticula. Electronically Signed: Mirza Wagoner MD at 15:30 EST , Chest X-Ray 10/15/24 13:25 IMPRESSION: COPD/cystic emphysematous changes Electronically Signed: Mirza Wagoner MD at 14:09 EST , Chest x-ray, portable, single view interpreted both by myself and radiologist. Shows chronic changes. COPD. No acute process. No pneumonia. No effusion. No pulmonary edema. Normal cardiac silhouette mediastinum. Critical Care Time Critical Care Time: Yes Critical care time (excluding procedures): 30-74 minutes, Including time spent:, Discussing w/Patient &/or Family/Carton Repairer, Discussing w/Consultants, Arranging Admission or Transfer, Performing Direct Patient Care at Bedside and - (35 minutes.) Discharge Plan Dx/Rx/DC Orders Clinical Impression: Acute hypotension, Leukocytosis, Sepsis, Abdominal fistula, Hypoxia, Acute UTI Disposition Disposition: [facility]
[2024-10-15 12:28] LABS: Absolute Lymphocyte Count 2.53 X10^3/uL (0.83-4.51); Absolute Neutrophil Count 20.1 X10^3/uL (2.0-7.7); Basophil# 0.11 X10^3/uL; Basophil% 0.5 % (0-1); Eosinophil# 0.02 X10^3/uL; Eosinophils% 0.1 % (0-5); Hematocrit 24.1 % (37-47); Hemoglobin 7.4 g/dL (12.0-15.0); Lymphocyte # 2.53 X10^3/ul (0.83-4.51); Lymphocyte % 10.5 % (19-41); Mean Corp Hgb Conc 30.7 g/dL (32-36); Mean Corpuscular Hgb 32.3 pg (27.0-32.0); Mean Corpuscular Volume 105.2 fL (81-99); Mean Platelet Vol. 10.1 fl (6.2-12.0); Monocyte# 0.93 X10^3/uL; Monocyte% 3.9 % (0-10); NRBC Flagged by Analyzer 0 % (0-5); Neutrophil # 20.13 X10^3/uL (2.7-7.7); Neutrophil % 83.3 % (47-70); POSITIVE DIFFERENTIAL YES; POSITIVE MORPHOLOGY YES; Platelet Count 220 K/mm3 (150-450); RBC Distribution Width CV 17.5 % (11.6-14.6); RBC Distribution Width SD 67.2 fl (35.1-43.9); Red Blood Count 2.29 M/mm3 (4.2-5.4); White Blood Count 24.1 K/mm3 (4.4-11.0)
[2024-10-15 12:32] LABS: ALB/GLOB Ratio 0.2 RATIO (0.9-2.4); AST(SGOT) 22 U/L (15-37); Alanine Aminotransfer ALT/SGPT 11 U/L (13-56); Albumin, Serum 1.3 g/dL (3.2-5.0); Alkaline Phosphatase 139 U/L (45-117); Anion Gap 5 (5-15); BUN 30 mg/dL (7-18); Calcium,Total 7.8 mg/dL (8.5-10.1); Chloride 115 mmol/L (98-107); EST Glomerular Filtration Rate 26 mL/min (>60); Est Glom Filt Rate - Afr Amer 32 mL/min (>60); Estimated Creatinine Clearance 23.25 ml/min; Globulin 6.4 g/dL (2.2-4.2); Glucose 63 mg/dL (74-106); Potassium 4.5 mmol/L (3.5-5.1); Protein, Total 7.7 g/dL (6.4-8.2); Sodium Level 138 mmol/L (136-145)
[2024-10-15 12:35] LABS: Differential Indicated SCAN CRITERIA MET
[2024-10-15 12:48] LABS: International Normalized Ratio 1.6; Prothrombin Time (Protime)PT. 18.5 SECONDS (11.7-14.9)
[2024-10-15 12:59] LABS: Anisocytosis 2+; Differential Comment SCANNED
--- NOTE | 2024-10-15 13:05 | CT_ITS ---
STUDY: CT ABDOMEN AND PELVIS WITH CONTRAST REASON FOR EXAM: Female, 69 years old. stool in vagina ?? fistula RADIATION DOSAGE (If Supplied By Facility): CTDIvol = ( 15.53 ) mGy, DLP = ( 407.65 ) mGycm TECHNIQUE: Transaxial images were obtained from the dome of the diaphragm to the symphysis pubis without oral contrast. ml of 75mL Isovue-370 contrast was administered. Sagittal and coronal images were reconstructed. Individualized dose optimization techniques were used for this CT. COMPARISON: CTA of the abdomen and pelvis dated September 03, 2021 FINDINGS: [place]-ovarian/colo-uterine fistula with abnormal fistulous track and adhesion of the proximal sigmoid colon in the left upper pelvis connected to the right ovary which contains air and stool contents in continuity with the left side of the uterus see images 78/103 through 83/123 series 2. No abscess or free air is present in the peritoneal space. A second fistulous connection or adhesion is present at the left posterior aspect of the uterus with the rectum see image #88/123 series 2. No visualized colonic masses. No visualized diverticula. The right ovary is unremarkable. Chronic subsegmental atelectasis and fibrosis is present in the bilateral lung bases. Tree-in-bud opacities are present as well in the bilateral likely due to developing endobronchial infection or chronic process. Clinical correlation recommended. A CT of the chest can be performed as well for further assessment.. The visualized portions of the heart are within normal limits. Normal liver. Normal gallbladder and extrahepatic biliary system. Normal spleen. Normal pancreas. Normal bilateral adrenal glands. There is moderate cortical atrophy of the right kidney, consistent with chronic medical renal disease. There is moderate cortical atrophy of the left kidney, consistent with chronic medical renal disease. Normal visualized stomach. Normal small intestine. Normal remaining colon. There is non-visualization of the appendix. Diffuse mesenteric edema is present. There is diffuse atherosclerotic calcification of the abdominal aorta, without a demonstrated aneurysm. Normal inferior vena cava. Normal retroperitoneum. Normal urinary bladder. Normal abdominal wall. There are diffuse degenerative changes of the visualized lumbar spine. CT/Abdomen/Pelvis W IV Cont ONLY IMPRESSION: 1. [place]-ovarian/colo-uterine fistula with abnormal fistulous track and adhesion of the proximal sigmoid colon in the left upper pelvis connected to the right ovary which contains air and stool contents in continuity with the left side of the uterus see images 78/103 through 83/123 series 2. No abscess or free air is present in the peritoneal space. 2. A second fistulous connection or adhesion is present at the left posterior aspect of the uterus with the rectum see image #88/123 series 2. No visualized colonic masses. No visualized diverticula. Electronically Signed: Mirza Wagoner MD at 15:30 EST ,
[2024-10-15 13:10] LABS: Mucous, Urine 0 SEEN /hpf (<or=2+)
[2024-10-15] MEDS: 0.9% Normal Saline (1000mL) 1,000 ML 999 ML IV ×3 (13:13→19:23)
[2024-10-15] MEDS: Ciprofloxacin 400 MG/200 ML BAG 200 MG IV (13:15)
--- NOTE | 2024-10-15 13:25 | RAD_ITS ---
STUDY: X-RAY CHEST REASON FOR EXAM: Female, 69 years old. hypotension TECHNIQUE: Single AP portable view of the chest. COMPARISON: None. FINDINGS: No visualized consolidation. Bilateral interstitial fibrosis is present. There is hyperinflation of the lungs consistent with chronic obstructive lung disease (COPD). There is no demonstrated pleural abnormality. Normal size heart. Normal mediastinum and nina. Normal visualized pulmonary arteries. There is atherosclerotic calcification of the aortic arch with tortuosity. There are diffuse degenerative changes of the visualized thoracic spine. There is degenerative osteoarthritis of the bilateral shoulders. There is no demonstrated abnormality of the visualized soft tissue structures of the upper abdomen. RAD/Chest 1 View (Portable) IMPRESSION: COPD/cystic emphysematous changes Electronically Signed: Mirza Wagoner MD at 14:09 EST ,
[2024-10-15 13:46] LABS: Color, Urine Yellow (Yellow); Glucose, Dipstick Normal (Normal); Ketone-Dipstick Negative (Negative); Leukocyte Esterase-Dipstick 500 /ul (Negative); Nitrite-Dipstick Negative (Negative); Occult Blood-Urine 50 /ul (Negative); Protein-Dipstick 30 mg/dl (Negative); Specific Gravity, Urine 1.015 (1.002-1.030); Urine Bilirubin Dipstick Negative (Negative); Urine Clarity Cloudy (Clear); Urine Urobilinogen Normal (Normal)
[2024-10-15 13:55] LABS: Bacteria 4+ /hpf (None Seen); Red Blood Cells-Urine 0-5 SEEN /hpf (0-5); Squamous Epithelial Cells - UA 0-5 SEEN /hpf (5-10); White Blood Cells >100 SEEN /hpf (0-5)
[2024-10-15] MEDS: metroNIDAZOLE 500 MG/100 ML BAG 100 MG IV (14:20)
--- NOTE | 2024-10-15 16:10 | CHAPLAIN ---
Type of Pastoral Visit _x__ Initial Visit ___ Follow-up Visit ___ On-call Visit ___ General Patient Visit ___ Spiritual Assessment ___ Family Conference ___ Bereavement ___ Rapid Response ___ Code Blue ___ Other (describe below) Pastoral Care Referral From ___ Patient ___ Family _x__ Nurse ___ Physician ___ Laborer Steel Handling ___ Tester Operator ___ Other (describe below) Sacrament/Intervention _x__ Active listening ___ Anointing ___ Restoration ___ Bereavement ___ Communion ___ Dang exploration ___ _x__ Life review _x__ Prayer ___ Reconciliation ___ Sacrament of Sick _x__ Supportive presence ___ Wedding ___ Other (describe below) Pastoral Comments during rounds in the ED the charge nurse asked this automotive parts counter person to check on this patient; discovered patient that is known to this automotive parts counter person and gave presence and prayer support; pt has been seen here in this hospital on numerous occasions as well; went to waiting room and found the daughter who is also known to this automotive parts counter person and offered support; daughter gives many details about the health and home situation of the patient; daughter is expressing feelings of being overwhelmed by the condition and requirements of caring for this mother; other family matters are increasing the burden of care; offered support, recommended a cornelius discussion with the SW and CM that might be assigned to the patient if she is indeed admitted; gave presence and prayer for the daughter as well; will remain supportive and involved as needed
[2024-10-15 16:45] LABS: Reflex Lactate? Y
[2024-10-15 17:26] LABS: Bedside Glucose 84 mg/dL (74-106)
[2024-10-15 18:15] LABS: Lactic Acid 1.3 mmol/L (0.4-1.9)
--- NOTE | 2024-10-15 18:59 | PCM.HP.STD ---
HPI - General General Date of Admission: 10/15/24 Date of Service: 10/15/24 Chief Complaint: AMS HPI Narrative RED PRICE, is a 69-year-old female with history of PAD, DVT, GERD, chronic diarrhea, heel wounds follow with the wound care clinic who presented [facility] ED 10/15/2024 due to altered mental status and hypotension. She was seen at the wound care center today by Dr. Amador who noticed the changes in mental status and hypotension and sent her to the ED, he did not think it was from her heel wounds as this did not look infected. In the ED patient had white blood cell count of 24 and UA suggestive of UTI. Blood pressure initially 99/70 and improved with IV fluids. 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 ED physician contacted gynecology surgeon Dr. Luigi Hu who endorsed that these fistulas did not require emergent surgery and the patient should be admitted and treated for the sepsis and then can follow-up with Virtualization Engineer surgery on an outpatient basis. Patient was given sepsis fluids and antibiotics and hospitalist contacted for admission. Patient evaluated with family member at bedside. Reportedly patient has been weak and tired over the past few months and has been working to get stronger, does have chronic problems with nausea and diarrhea but has been following with Dr. Enriquez and naturopathic doctor in [place] and she is down to diarrhea couple times a week instead of multiple times a day however still has some chronic problems with nausea. Patient was awake and alert and interactive this morning however quickly decompensated around the time she was seen at the wound clinic by the time she got here she was significantly altered, patient reports she still little nauseous and fatigued and feels unwell but both she and daughter note she is better than when she arrived. Patient wears diapers so difficult to assess urinary symptoms but does have a history of UTIs. Denies any abdominal pain, has felt a little bit more short of breath today and has had cough with some phlegm, last week possibly had a sore throat and fever but daughter is unsure. Patient denies any chest pain or headache, does have chronic neuropathy but no other new or acute complaints [facility] Medical History Anemia in chronic illness Non-pressure chronic ulcer of left heel and midfoot with fat layer exposed PAD (peripheral artery disease) Neurapraxia History of benign brain tumor Type 2 diabetes mellitus with other skin ulcer Type 2 diabetes mellitus with foot ulcer Chronic deep vein thrombosis (DVT) of left lower extremity IBS (irritable bowel syndrome) Peripheral vascular disease, unspecified Non-pressure chronic ulcer of other part of right foot with fat layer exposed Asthma Malnutrition Difficulty in walking, not elsewhere classified Gastroparesis Acute renal insufficiency Urge incontinence Hydronephrosis Unable to ambulate Generalized weakness Non-pressure chronic ulcer of other part of right foot with fat layer exposed History of myocardial infarction History of cerebrovascular accident History of deep venous thrombosis (DVT) of distal vein of left lower extremity History of ischemic colitis Ulcer of amputation stump of foot Wound of left foot PAD (peripheral artery disease) Deep venous thrombosis of distal end of left lower extremity Type 2 diabetes mellitus with diabetic polyneuropathy Gastroesophageal reflux disease Osteoarthritis of cervical and lumbar spine Chronic diarrhea Brain tumor (benign) Diabetic foot ulcer Debility History of pneumonia Migraine Home Medications ?Medication ?Instructions ?Recorded ?Last Taken ?Type Lactobacillus rhamnosus GG 10 1 cap PO DAILY GUT HEALTH 04/10/23 04/09/23 History billion cell capsule (Culturelle) pantoprazole 40 mg tablet,delayed 40 mg PO DAILY GERD 04/10/23 02/02/24 06:00 History release albuterol sulfate 90 mcg/actuation 1 puff inhalation Q4H PRN 04/25/24 Unknown History aerosol inhaler (Ventolin HFA) SHORTNESS OF BREATH camphor-menthol 0.2 %-3.5 % 1 applic topical BID pain 04/25/24 Unknown History topical gel (Freeze It Relief) food supplemt, lactose-reduced 120 ml PO TID 04/25/24 Unknown History 0.04 gram-1.05 kcal/mL oral liquid (Boost Breeze Nutritional) melatonin 3 mg tablet 3 mg PO QHS PRN SLEEP 04/25/24 Unknown History ondansetron 4 mg disintegrating 4 mg PO Q6H PRN NAUSEA 04/25/24 Unknown History tablet acetaminophen 500 mg tablet 1,000 mg (2 x 500 mg) PO Q8H PRN 06/09/24 Unknown Rx Pain Score 1-5 3 days #0 tabs cephalexin 500 mg capsule 500 mg PO BID 10/15/24 Unknown History Allergy/AdvReac Type Severity Reaction Status Date / Time cefprozil Allergy Shortness Verified 06/04/24 12:47 of breath ceftriaxone Allergy Hives Verified 06/04/24 12:47 clindamycin Allergy Rash Verified 06/04/24 12:47 enalapril Allergy Other Verified 06/04/24 12:47 enoxaparin Allergy Rash Verified 06/04/24 12:47 heparin Allergy Rash Verified 06/04/24 12:47 levalbuterol Allergy Other Verified 06/04/24 12:47 morphine Allergy Shortness Verified 06/04/24 12:47 of breath Penicillins Allergy Anaphylaxis Verified 06/04/24 12:47 valsartan Allergy Other Verified 06/04/24 12:47 vancomycin Allergy Rash Verified 06/04/24 12:47 atorvastatin AdvReac Other Verified 06/04/24 12:47 rosuvastatin (From Crestor) AdvReac Other Verified 06/04/24 12:47 Family History Mother Cancer Lung CA w/ tobacco use history. Diabetes COPD (chronic obstructive pulmonary disease) Father Cancer Lung CA w/ tobacco use history. Diabetes COPD (chronic obstructive pulmonary disease) Heart disease Surgical History Status post transmetatarsal amputation of left foot History of eye surgery History of lumpectomy History of foot surgery History of tubal ligation History of appendectomy Tubal ligation status Social History household members: none Smoking Status: Never smoker alcohol intake: never substance use type: does not use ROS ROS Narrative General: Possibly had an episode of fever last week x 1 HENT: Denies headache, denies stuffy nose, had sore throat last week which is resolved EYES: Chronically worsening vision over period of months Resp: Maybe some shortness of breath today but mostly notes cough with phlegm over the past day or so Cardiac: Denies chest pain GI: Denies abdominal pain, has had improvement in her diarrhea and is going less frequently, does have some chronic nausea and is waxing waning at this time : Denies changes in urination but patient wears diapers so is difficult to assess Extremity: Denies swelling MSK: Generalized weakness Neuro: Chronic lower extremity neuropathy Heme: Denies any bleeding or bruising Skin: Denies rashes Psychiatric: No complaints voiced Vital Signs Vital Signs Vital Signs: 10/15/24 11:40 10/15/24 11:44 10/15/24 11:46 Temperature 97.8 F 97.8 F Temperature Source Oral Oral Pulse Rate 78 78 Respiratory Rate 18 17 Respiratory Pattern Normal Blood Pressure 99/70 99/70 Blood Pressure Mean 79 79 Pulse Ox 98 98 Oxygen Delivery Method Room Air Room Air Oxygen Flow Rate (L/min) 10/15/24 12:39 10/15/24 12:44 10/15/24 12:47 Temperature 97.7 F L Temperature Source Oral Pulse Rate 70 72 Respiratory Rate 15 18 Respiratory Pattern Blood Pressure 101/63 Blood Pressure Mean 75 Pulse Ox 95 93 91 Oxygen Delivery Method Nasal Cannula Nasal Cannula Nasal Cannula Oxygen Flow Rate (L/min) 5 5 4 10/15/24 13:00 10/15/24 14:00 10/15/24 15:00 Temperature 97.7 F L Temperature Source Oral Pulse Rate 69 87 Respiratory Rate 18 18 18 Respiratory Pattern Blood Pressure 101/63 108/72 124/108 H Blood Pressure Mean 75 84 113 Pulse Ox 93 96 93 Oxygen Delivery Method Nasal Cannula Nasal Cannula CPAP Oxygen Flow Rate (L/min) 5 5 10/15/24 16:00 10/15/24 17:00 10/15/24 18:00 Temperature Temperature Source Pulse Rate 77 72 75 Respiratory Rate 19 H 22 H 18 Respiratory Pattern Blood Pressure 139/128 H 131/89 H 98/76 Blood Pressure Mean 131 103 83 Pulse Ox 96 97 98 Oxygen Delivery Method Nasal Cannula Non-Rebreather Non-Rebreather Oxygen Flow Rate (L/min) 5 15 10/15/24 18:51 Temperature 97.7 F L Temperature Source Pulse Rate 75 Respiratory Rate 18 Respiratory Pattern Blood Pressure 98/76 Blood Pressure Mean 83 Pulse Ox 98 Oxygen Delivery Method Oxygen Flow Rate (L/min) Weight Weight: 59 kg Body Mass Index (BMI) 22.3 Physical Exam Narrative General: Wakes up and answers questions appropriately, does appear sleepy HEENT: Atraumatic, normocephalic Eyes: Anicteric, normal conjunctiva, extraocular movements grossly intact Neck: Supple Respiratory: Patient with what sounds to be some transmitted upper airway sounds Cardiovascular: Regular rate and rhythm GI: Soft, nontender, nondistended Extremities: No edema Musculoskeletal: Moving all extremities Neuro: No overt focal neurological deficits Skin: No rashes appreciated Psych: Cooperative Results Lab / Micro Data 10/15/24 12:00 10/15/24 12:00 Labs: Laboratory Results - last 24 hr 10/15/24 12:00: WBC 24.1 H, RBC 2.29 L, Hgb 7.4 L, Hct 24.1 L, MCV 105.2 H, MCH 32.3 H, MCHC 30.7 L, RDW Std Deviation 67.2 H, RDW Coeff of Xin 17.5 H, Plt Count 220, MPV 10.1, Immature Gran % (Auto) 1.700 H, Neut % (Auto) 83.3 H, Lymph % (Auto) 10.5 L, [place] % (Auto) 3.9, Eos % (Auto) 0.1, Baso % (Auto) 0.5, Absolute Neuts (auto) 20.1 H, Absolute Lymphs (auto) 2.53, Nucleated RBC % 0, Differential Comment SCANNED, Anisocytosis 2+, PT 18.5 H, INR 1.6, APTT 40.0 H, Sodium 138, Potassium 4.5, Chloride 115 H, Carbon Dioxide 18.0 L, Anion Gap 5, BUN 30 H, Creatinine 2.00 H, Estim Creat Clear Calc 23.25, Est GFR (MDRD) Af Amer 32 L, Est GFR (MDRD) Non-Af 26 L, BUN/Creatinine Ratio 15.0, Glucose 63 L, Calcium 7.8 L, Total Bilirubin 0.30, AST 22, ALT 11 L, Alkaline Phosphatase 139 H, Total Protein 7.7, Albumin 1.3 L, Globulin 6.4 H, Albumin/Globulin Ratio 0.2 L 10/15/24 12:40: Lactic Acid 2.0 10/15/24 13:00: Urine Color Yellow, Urine Clarity Cloudy, Urine pH 5.0, Ur Specific [place] 1.015, Urine Protein 30 H, Urine Glucose (UA) Normal, Urine Ketones Negative, Urine Occult Blood 50 H, Urine Nitrite Negative, Urine Bilirubin Negative, Urine Urobilinogen Normal, Ur Leukocyte Esterase 500 H, Urine RBC 0-5 SEEN, Urine WBC >100 SEEN, Ur Squamous Epith Cells 0-5 SEEN, Urine Bacteria 4+, Urine Mucus 0 SEEN 10/15/24 17:08: POC Glucose 84 10/15/24 17:15: Lactic Acid 1.3 Micro: Microbiology 10/15/24 13:00 Mucosa - Nose SARS-CoV-2, Influenza & RSV (PCR) - Final Imaging Radiology Impression Abdomen/Pelvis CT 10/15/24 13:05 IMPRESSION: 1. Mercer-ovarian/colo-uterine fistula with abnormal fistulous track and adhesion of the proximal sigmoid colon in the left upper pelvis connected to the right ovary which contains air and stool contents in continuity with the left side of the uterus see images 78/103 through 83/123 series 2. No abscess or free air is present in the peritoneal space. 2. A second fistulous connection or adhesion is present at the left posterior aspect of the uterus with the rectum see image #88/123 series 2. No visualized colonic masses. No visualized diverticula. Electronically Signed: Mirza Wagoner MD at 15:30 EST Reading Location ID and State: [facility] / [place] , Service support , Chest X-Ray 10/15/24 13:25 IMPRESSION: COPD/cystic emphysematous changes Electronically Signed: Mirza Wagoner MD at 14:09 EST , Assessment & Plan Assessment/Plan (1) Acute UTI: PLAN: Plan # Suspected sepsis secondary to urinary tract infection -UA with leuk esterase, red blood cells, bacteria concerning for infection -Patient with tachypnea on my exam with respiratory rate in upper 20s and had new oxygen requirement in the ED for which she was ultimately placed on nonrebreather which is improved after antibiotics and fluids, additionally had metabolic encephalopathy -Urine culture sent -Blood culture sent -Patient has previously grown strep agalactiae and Klebsiella in her urine resistant to fluoroquinolones and given her allergy profile will put patient on linezolid and Merrem while awaiting cultures -Patient given 30 cc/kg of IV fluids in the ED and blood pressure was fluid responsive -Of note patient with cough with sputum, chest x-ray reported no acute process. Suspect UTI is the cause of her sepsis however will send sputum culture if able to obtain one given she is producing some phlegm, also send COVID respiratory panel # Mercer ovarian/colon or uterine fistulas -Seen on CT scan which reported: Ovarian/Mercer uterine fistula with abnormal track and adhesion of the proximal sigmoid colon in the left upper pelvis connected to the right ovary with no abscess or free air in the peritoneal space and a second fistulous connection or adhesion on the left posterior aspect of uterus -Gynecology surgery was contacted at [facility] and did not think patient needed transferred as this does not need addressed emergently and she will need to follow-up on outpatient basis for further management #Chronic heel wounds -Evaluated today by Dr. Amador and he did not feel they were infected -Supportive care #Chronic diarrhea -Has improved recently however patient concerned that antibiotics will cause further diarrhea -Explained the importance of antibiotics given concern for infection -Monitor closely # CKD stage IV -Appears to be at baseline -Avoid nephrotoxic agents -Daily BMPs # Chronic anemia -Appears to be at baseline -No obvious evidence of blood loss -Repeat in the a.m. #GERD -Continue PPI #DVT ppx: SCDs Sara Horton MD Sepsis Attestation Sepsis Alert: Yes Sepsis Attestation: Agree w/Sepsis Date exam was performed: 10/15/24 Time exam was performed: 18:00 Possible Source of Sepsis: Genitourinary Sepsis Organ Dysfunction Criteria Present: Acute Respiratory Failure (New need for BiPAP/CPAP or MV), INR > 1.5 or aPTT > 60 sec, Serum CO2 < 20 mmol/L (on BMP) and New/Unexplained change in mental status Fluid Resuscitation Fluid resuscitation indicated?: Yes Fluid Resuscitation ordered: 30 ml/kg fluid bolus ordered Sepsis Note Response to fluids: Fluid responsive hypotension Charges/Coding Visit Charges Inpatient E&M: 39716 Init Hosp L2
[2024-10-15] MEDS: Ondansetron 4 MG/2 ML Vial IV (19:48)
--- NOTE | 2024-10-15 20:17 | CASEMGMT ---
Care Management Face to Face with patient for initial transition planning/care coordination assessment in the ED. This production underwriter introduced self and role at [facility]. Patient lying in bed, almost asleep. Patient's daughter, Prabha, at bedside. Patient willing to participate in assessment and is able to answer most questions appropriately; daughter Prabha helped when necessary. Admitting Diagnosis: acute UTI Other diagnosis history: PAD, DVT, GERD, brain tumor PCP: [facility] Specialists: Dr. Amador, wound center. [facility], Dr. Hall, brain tumors. Preferred Pharmacy: [facility]. Insurance: Medicare Part A and B (primary). [employer] (secondary). Prescription Benefit: yes, [employer] Living Will/HPOA: Patient's daughter, Prabha is listed as primary HCPOA. Prabha stated she would bring in copy of advance directives. Patient's son, Crescencio, listed as alternate. LNOK: 4 children, 2 boys and 2 girls. Living Arrangements: currently, patient lives with her one son and his family in a 1 story condo. Patient requires help with all ADLs and patient's daughter, Prabha, reported helping with changing patient when needed. Prabha reports patient's lease ends at the end of 2023, so patient's family is working on renovating a home for patient to move into. At that point, patient will be in a 1 story home with patient's other daughter and her family. Transportation: patient's daughter reports [facility] does much of the transportation for patient's necessary appointments. DME: hospital bed, grab bars, shower chair, glucometer and testing strips, scooter/power chair. Patient is currently on oxygen, but Prabha reports patient not usually requiring oxygen. HHC: Prabha reports patient having HHC at one point, though Prabha reports it was a brief time due to patient and patient's HHC nurse not getting along. Patient and Prabha could not recall the name of the agency. SNF/Rehab: [facility] Community Resources: [employer], [facility]. Patient goals: Patient wishes to discharge home with HHC. Patient's daughter stated that would be necessary, at minimum. Patient's daughter stated she would like to see patient go to a SNF for a short time. Disposition Plan: admission to acute; RN CM/SW to follow for discharge planning needs that may arise. Milady Maza, HALL COORDINATOR, FINANCIAL PLANNER
[2024-10-15] MEDS: Meropenem 1 GM in 0.9% Normal Saline (100mL MB+) 100 ML IV (20:52)
[2024-10-15] MEDS: Linezolid 600 MG 600 MG/300 ML BAG 200 MG IV (21:04)
[2024-10-15 23:17] LABS: Bedside Glucose 94 mg/dL (74-106)
[2024-10-16] VITALS (32 sets, daily range): BP systolic 80–120; BP diastolic 45–72; PULSE 62–85; RESP 13–29; TEMP 36.4–36.7; O2SAT 93–100; BMI 22.3; BMI 18.7
[2024-10-16 05:10] LABS: Absolute Lymphocyte Count 1.42 X10^3/uL (0.83-4.51); Absolute Neutrophil Count 19.3 X10^3/uL (2.0-7.7); Basophil# 0.04 X10^3/uL; Basophil% 0.2 % (0-1); Hematocrit 19.2 % (37-47); Hemoglobin 6.2 g/dL (12.0-15.0); Lymphocyte # 1.42 X10^3/ul (0.83-4.51); Lymphocyte % 6.5 % (19-41); Mean Corp Hgb Conc 32.3 g/dL (32-36); Mean Corpuscular Hgb 32.8 pg (27.0-32.0); Mean Corpuscular Volume 101.6 fL (81-99); Mean Platelet Vol. 9.8 fl (6.2-12.0); Monocyte% 3.7 % (0-10); NRBC Flagged by Analyzer 0 % (0-5); Neutrophil # 19.34 X10^3/uL (2.7-7.7); Neutrophil % 88.4 % (47-70); POSITIVE MORPHOLOGY YES; Platelet Count 181 K/mm3 (150-450); RBC Distribution Width CV 17.3 % (11.6-14.6); RBC Distribution Width SD 63.7 fl (35.1-43.9); Red Blood Count 1.89 M/mm3 (4.2-5.4); White Blood Count 21.9 K/mm3 (4.4-11.0)
[2024-10-16 05:12] LABS: Differential Indicated SCAN CRITERIA MET
[2024-10-16 05:26] LABS: Anion Gap 5 (5-15); BUN 27 mg/dL (7-18); BUN/Creat Ratio 16.2 RATIO (10-20); Calcium,Total 7.2 mg/dL (8.5-10.1); Chloride 120 mmol/L (98-107); Creatinine, Serum 1.67 mg/dL (0.55-1.02); EST Glomerular Filtration Rate 32 mL/min (>60); Est Glom Filt Rate - Afr Amer 39 mL/min (>60); Estimated Creatinine Clearance 27.84 ml/min; Glucose 81 mg/dL (74-106); Magnesium 1.5 mg/dL (1.6-2.6); Potassium 3.9 mmol/L (3.5-5.1); Sodium Level 140 mmol/L (136-145)
[2024-10-16 06:10] LABS: Differential Comment SCANNED
[2024-10-16] MEDS: Magnesium Sulfate 2 GM in Dextrose 5%-Water (100mL Bag) 100 ML IV (08:56)
[2024-10-16] MEDS: 0.9% Saline Lock 10 ML Syringe IV (08:56)
[2024-10-16] MEDS: Ondansetron 4 MG/2 ML Vial IV (08:56)
[2024-10-16] MEDS: Linezolid 600 MG 600 MG/300 ML BAG 200 MG IV ×2 (11:21→21:06)
--- NOTE | 2024-10-16 11:43 | PN.HOSP_ITS ---
Reason for Visit Reason for Visit: Diagnoses Urinary tract infection, site not specified (10/15/24) Subjective Subjective Saw patient at bedside later this morning, daughter present. Patient was chronically ill appearing and appeared very fatigued while sitting up in bed. She was able to make appropriate eye contact with me but had difficulty answering questions appropriately for me. She did have noticeable weakness in her left arm and leg. Per the daughter, patient has had some weakness recently but no specific weakness in any extremities. Daughter also notes that patient has not had difficulty with speaking in the past like she currently does. Patient does have known history of meningioma that on last scan in March was stable. CT head without contrast was obtained for further evaluation. Did not show bleed but did show findings suggestive of ischemic change involving the posterior right temporal and parietal lobes. MRI brain ordered for further evaluation and orders placed per stroke protocol order set. Called patient's daughter to update her on these findings and she was appreciative of this. Objective Data Objective Data Vital Signs: Vital Signs Temp Pulse Resp BP Pulse Ox O2 Del Method O2 Flow Rate 97.8 F 77 24 H 120/68 95 Nasal Cannula 2 10/16/24 11:27 10/16/24 11:27 10/16/24 11:27 10/16/24 11:27 10/16/24 11:27 10/16/24 11:27 10/16/24 11:27 Oxygen Flow Rate (L/min) 2 Oxygen Delivery Method Nasal Cannula Weight: 58.9 kg Body Mass Index (BMI) 18.7 Intake & Output: Intake and Output for Last 24 Hours 10/14/24 10/15/24 10/16/24 23:59 23:59 23:59 Intake Total 3482.45 / 3482.45 224 / 224 Balance 3482.45 / 3482.45 224 / 224 Lab / Micro Data 10/16/24 05:00 10/16/24 05:00 Labs: Laboratory Results - last 24 hr 10/15/24 12:00: WBC 24.1 H, RBC 2.29 L, Hgb 7.4 L, Hct 24.1 L, MCV 105.2 H, MCH 32.3 H, MCHC 30.7 L, RDW Std Deviation 67.2 H, RDW Coeff of Xin 17.5 H, Plt Count 220, MPV 10.1, Immature Gran % (Auto) 1.700 H, Neut % (Auto) 83.3 H, Lymph % (Auto) 10.5 L, [place] % (Auto) 3.9, Eos % (Auto) 0.1, Baso % (Auto) 0.5, A bsolute Neuts (auto) 20.1 H, Absolute Lymphs (auto) 2.53, Nucleated RBC % 0, Differential Comment SCANNED, Anisocytosis 2+, PT 18.5 H, INR 1.6, APTT 40.0 H, Sodium 138, Potassium 4.5, Chloride 115 H, Carbon Dioxide 18.0 L, Anion Gap 5, B UN 30 H, Creatinine 2.00 H, Estim Creat Clear Calc 23.25, Est GFR (MDRD) Af Amer 32 L, Est GFR (MDRD) Non-Af 26 L, BUN/Creatinine Ratio 15.0, Glucose 63 L, C alcium 7.8 L, Total Bilirubin 0.30, AST 22, ALT 11 L, Alkaline Phosphatase 139 H , Total Protein 7.7, Albumin 1.3 L, Globulin 6.4 H, Albumin/Globulin Ratio 0.2 L 10/15/24 12:40: Lactic Acid 2.0 10/15/24 13:00: Urine Color Yellow, Urine Clarity Cloudy, Urine pH 5.0, Ur Specific [place] 1.015, Urine Protein 30 H, Urine Glucose (UA) Normal, Urine Ketones Negative, Urine Occult Blood 50 H, Urine Nitrite Negative, Urine Bilirubin Negative, Urine Urobilinogen Normal, Ur Leukocyte Esterase 500 H, Urine RBC 0-5 SEEN, Urine WBC >100 SEEN, Ur Squamous Epith Cells 0-5 SEEN, Urine Bacteria 4+, Urine Mucus 0 SEEN 10/15/24 17:08: POC Glucose 84 10/15/24 17:15: Lactic Acid 1.3 10/15/24 22:53: POC Glucose 94 10/16/24 05:00: WBC 21.9 H, RBC 1.89 L, Hgb 6.2 L, Hct 19.2 L, MCV 101.6 H, MCH 32.8 H, MCHC 32.3 D, RDW Std Deviation 63.7 H, RDW Coeff of Xin 17.3 H, Plt Count 181, MPV 9.8, Immature Gran % (Auto) 1.200 H, Neut % (Auto) 88.4 H, Lymph % (Auto) 6.5 L, [place] % (Auto) 3.7, Eos % (Auto) 0.0, Baso % (Auto) 0.2, Absolute Neuts (auto) 19.3 H, Absolute Lymphs (auto) 1.42, Nucleated RBC % 0, Differential Comment SCANNED, Sodium 140, Potassium 3.9, Chloride 120 H, Carbon Dioxide 15.0 L, Anion Gap 5, BUN 27 H, Creatinine 1.67 H, Estim Creat Clear Calc 27.84, Est GFR (MDRD) Af Amer 39 L, Est GFR (MDRD) Non-Af 32 L, BUN/Creatinine Ratio 16.2, Glucose 81, Calcium 7.2 L, Magnesium 1.5 L 10/16/24 08:22: Blood Type O POSITIVE, Antibody Screen NEGATIVE, Crossmatch See Detail Micro: Microbiology 10/15/24 23:28 Mucosa - Nasopharyngeal SARS-CoV-2, Influenza & RSV (PCR) - Final 10/15/24 13:00 Mucosa - Nose SARS-CoV-2, Influenza & RSV (PCR) - Final Radiography Diagnostic Testing: Radiology Impression Abdomen/Pelvis CT 10/15/24 13:05 IMPRESSION: 1. [place]-ovarian/colo-uterine fistula with abnormal fistulous track and adhesion of the proximal sigmoid colon in the left upper pelvis connected to the right ovary which contains air and stool contents in continuity with the left side of the uterus see images 78/103 through 83/123 series 2. No abscess or free air is present in the peritoneal space. 2. A second fistulous connection or adhesion is present at the left posterior aspect of the uterus with the rectum see image #88/123 series 2. No visualized colonic masses. No visualized diverticula. Electronically Signed: Mirza Wagoner MD at 15:30 EST , Chest X-Ray 10/15/24 13:25 IMPRESSION: COPD/cystic emphysematous changes Electronically Signed: Mirza Wagoner MD at 14:09 EST , Physical Exam Const alert and no apparent distress Constitutional Narrative: Elderly female, appears older than stated age, chronically ill-appearing, fatigued appearing, sitting up in bed fairly comfortably, making appropriate eye contact but not answering questions appropriately due to difficulty with speaking. General Appearance: cooperative HEENT normocephalic, head/scalp atraumatic, hearing grossly normal bilaterally, nasal mucous membranes and turbinates normal and moist oral mucous membranes Eyes PERRL, EOMs intact bilaterally and conjunctivae normal Neck full ROM Chest inspection of chest normal Resp normal respiratory effort and no use of accessory muscles Resp Narrative: Breathing comfortably on 2 L nasal cannula at rest. Mildly decreased breath sounds at bilateral lung bases, no wheezing or crackles noted. Cardio regular rate, regular rhythm, no murmurs and peripheral pulses 2+ throughout GI normal to inspection, nondistended, normoactive bowel sounds, soft to palpation, non-tender and non-distended Back/Spine normal ROM Extremity Extremity Narrative: Wrap noted on right foot for chronic wound. Prior left partial foot amputation noted. Neuro Neuro Narrative: Patient with significant weakness in left arm and left leg. Patient does nod when asked if there are sensory changes in these areas as well. Able to speak some words intermittently but has significant difficulty with putting many words together. Assessment & Plan Assessment/Plan (1) Acute UTI: (2) Sepsis: (3) Weakness: (4) Abdominal fistula: PLAN: Plan Patient is a 69-year-old female who presented [facility] ED on 10/15/2024 with altered mentation and hypotension. 1. Sepsis without shock secondary to acute cystitis ? Patient presented with hypotension and altered mental status as well as significant leukocytosis. UA showed 500 leukocyte esterase, negative nitrites, greater than 100 WBCs, 4+ bacteria. CT abdomen pelvis with new fistulas found as noted below but no concerning urinary findings. Most likely infectious source is urinary. A good improvement blood pressure with 30 cc/kg of IV fluid resuscitation. Urine culture preliminary growing gram-negative rods. Will continue to treat with IV ceftriaxone for now. 2. Acute on chronic anemia ? Hemoglobin 7.4 on admit, dropped to 6.2 on hospital day 2. Baseline appears to be around 7. Suspect drop was primarily due to IV fluid resuscitation. Transfused 2 units of packed red blood cells on 10/16, will follow-up repeat hemoglobin tomorrow. No overt signs of bleeding noted. 3. Concern for ischemic CVA ? Patient with new findings of left-sided upper extremity lower extremity weakness and difficulty with speaking on 10/16. CT brain without contrast showed findings suggestive of ischemic change involving the posterior right temporal and parietal lobes. MRI brain without contrast ordered. Other orders placed per stroke protocol order sent. Gave rectal aspirin 300 mg and will start baby aspirin and statin. Teleneurology consulted. Therapy consulted as noted below. 4. New colo-ovarian/colo-uterian fistula ? CT abdomen pelvis on admit showed colo-ovarian/colo-uterine fistula with abnormal fistulous track adhesion of the proximal sigmoid colon connected to the right ovary which contains air and stool contents in continuity with left side of the uterus, no abscess or free air present in peritoneal space; second fistulous connection or adhesion also present at left posterior aspect of the uterus. These findings were discussed with our general surgery team on admission who noted patient would be better served at a larger facility. Was discussed with [facility]-Leaf Sorter at [facility] who noted that these findings are likely not contributing to her sepsis and recommended that patient be treated here for sepsis and can follow-up for outpatient management after discharge. 5. Chronic heel wounds ? Follows with podiatry, had appointment with Dr. Amador on day of admission and heel wounds did not appear acutely infected. Continue wound dressings. 6. Chronic diarrhea ? Patient noted this has improved recently. Will monitor while here especially as patient is on antibiotics which have caused worsening diarrhea for her in the past. 7. Mild creatinine elevation in setting of CKD stage IV, improved ? Creatinine 2.00 on admit, improved to 1.67 on hospital day 2 after IV fluid resuscitation. Baseline appears to be around 1.6. Continue to monitor daily BMP and urine output. 8. Acute on chronic debility ? PT/OT/case management following. Appreciate recommendations. 9. Suspected severe malnutrition ? Nutrition following. Patient currently n.p.o. status given her concern for stroke as noted above. 10. GERD ? Continue home PPI. DVT prophylaxis: SCDs CODE STATUS: DNR CCA, DNI Expected disposition: TBD Total clinical time spent by myself addressing the patient's medical issues, reviewing all the data, and collaborating with patient's care team: 50 minutes. Charges/Coding Visit Charges Inpatient E&M: 57572 Subs Hosp L3
[2024-10-16] MEDS: Acetaminophen 325 MG Tablet 650 MG PO (12:38)
--- NOTE | 2024-10-16 13:18 | CT_ITS ---
STUDY: CT BRAIN WITHOUT CONTRAST REASON FOR EXAM: Female, 69 years old. ams w/ known meningioma, r/o bleed RADIATION DOSAGE (If Supplied By Facility): CTDIvol = ( 44.99 ) mGy, DLP = ( 796.11 ) mGycm TECHNIQUE: Transaxial CT imaging of the brain was performed without administration of intravenous contrast material. Individualized dose optimization techniques were used for this CT. COMPARISON: Comparison is made with prior study dated April 25, 2024. FINDINGS: Normal soft tissue structures. Normal calvarium. Stable 2.2 cm 1.6 cm x 2.2 cm calcified mass in the anterior cranial fossa inferior to the frontal lobes suggestive of a meningioma. This is unchanged. There is mild cerebral atrophy with widening of the extra-axial spaces and ventricular dilatation. Focal area of a decrease attenuation in the right posterior temporal parietal lobe suggestive of ischemia. Correlation with MRI is recommended. Normal basal ganglia and thalami. Normal brainstem. Normal cerebellum. There is no intracranial hemorrhage. There are no findings of an acute ischemic infarction. Atherosclerotic calcification of the cavernous portions of the internal carotid arteries bilaterally. Normal visualized paranasal sinuses. CT/Brain/Head without Contrast IMPRESSION: Findings suggestive of ischemic change involving the posterior right temporal parietal lobes. Correlation with the MRI recommended for further evaluation. Stable appearance of the calcified meningioma as described. Electronically Signed: Ming Louise MD at 15:26 EST ,
--- NOTE | 2024-10-16 13:19 | WOUNDNOTE ---
wound photo:right foot
--- NOTE | 2024-10-16 13:20 | WOUNDNOTE ---
wound photo: right heel
--- NOTE | 2024-10-16 13:20 | WOUNDNOTE ---
wound photo: left heel
--- NOTE | 2024-10-16 13:40 | CON.PCM.ID_ITS ---
Assessment & Plan Assessment/Plan (1) Abdominal fistula: PLAN: Feeling better, wbc and O2 improved. Denies abd pain. Ucx with GNR. CT showed fistulas present, recommend gen surg eval. Cont linezolid/hayes for now. D/w Dr. Richard. Will follow, thank you (2) Acute UTI: (3) Sepsis: HPI Consult Data Date of Consult: 10/16/24 HPI Narrative Reason for Consultation: sepsis HPI Narrative: [place], is a 69 F with h/o PAD, cdiff, chronic heel wounds, seen at wound center yesterday. During transportation there, became weak, confused, hypotensive. Feet wounds have been stable. Denies abd pain. Does have chronic diarrhea. CT scan done, admitted to icu on linezolid and meropenem. Feeling about the same today, family at bedside provided additional history. Full ROS performed and neg except as noted above. [facility], [facility] Medical History Anemia in chronic illness Non-pressure chronic ulcer of left heel and midfoot with fat layer exposed PAD (peripheral artery disease) Neurapraxia History of benign brain tumor Type 2 diabetes mellitus with other skin ulcer Type 2 diabetes mellitus with foot ulcer Chronic deep vein thrombosis (DVT) of left lower extremity IBS (irritable bowel syndrome) Peripheral vascular disease, unspecified Non-pressure chronic ulcer of other part of right foot with fat layer exposed Asthma Malnutrition Difficulty in walking, not elsewhere classified Gastroparesis Acute renal insufficiency Urge incontinence Hydronephrosis Unable to ambulate Generalized weakness Non-pressure chronic ulcer of other part of right foot with fat layer exposed History of myocardial infarction History of cerebrovascular accident History of deep venous thrombosis (DVT) of distal vein of left lower extremity History of ischemic colitis Ulcer of amputation stump of foot Wound of left foot PAD (peripheral artery disease) Deep venous thrombosis of distal end of left lower extremity Type 2 diabetes mellitus with diabetic polyneuropathy Gastroesophageal reflux disease Osteoarthritis of cervical and lumbar spine Chronic diarrhea Brain tumor (benign) Diabetic foot ulcer Debility History of pneumonia Migraine Home Medications ?Medication ?Instructions ?Recorded ?Last Taken ?Type Lactobacillus rhamnosus GG 10 1 cap PO DAILY GUT HEALTH 04/10/23 04/09/23 History billion cell capsule (Culturelle) pantoprazole 40 mg tablet,delayed 40 mg PO DAILY GERD 04/10/23 02/02/24 06:00 History release albuterol sulfate 90 mcg/actuation 1 puff inhalation Q4H PRN 04/25/24 Unknown History aerosol inhaler (Ventolin HFA) SHORTNESS OF BREATH camphor-menthol 0.2 %-3.5 % 1 applic topical BID pain 04/25/24 Unknown History topical gel (Freeze It Relief) food supplemt, lactose-reduced 120 ml PO TID 04/25/24 Unknown History 0.04 gram-1.05 kcal/mL oral liquid (Boost Breeze Nutritional) melatonin 3 mg tablet 3 mg PO QHS PRN SLEEP 04/25/24 Unknown History ondansetron 4 mg disintegrating 4 mg PO Q6H PRN NAUSEA 04/25/24 Unknown History tablet acetaminophen 500 mg tablet 1,000 mg (2 x 500 mg) PO Q8H PRN 06/09/24 Unknown Rx Pain Score 1-5 3 days #0 tabs cephalexin 500 mg capsule 500 mg PO BID 10/15/24 Unknown History Allergy/AdvReac Type Severity Reaction Status Date / Time cefprozil Allergy Shortness Verified 06/04/24 12:47 of breath ceftriaxone Allergy Hives Verified 06/04/24 12:47 clindamycin Allergy Rash Verified 06/04/24 12:47 enalapril Allergy Other Verified 06/04/24 12:47 enoxaparin Allergy Rash Verified 06/04/24 12:47 heparin Allergy Rash Verified 06/04/24 12:47 levalbuterol Allergy Other Verified 06/04/24 12:47 morphine Allergy Shortness Verified 06/04/24 12:47 of breath Penicillins Allergy Anaphylaxis Verified 06/04/24 12:47 valsartan Allergy Other Verified 06/04/24 12:47 vancomycin Allergy Rash Verified 06/04/24 12:47 atorvastatin AdvReac Other Verified 06/04/24 12:47 rosuvastatin (From Crestor) AdvReac Other Verified 06/04/24 12:47 Family History Mother Cancer Lung CA w/ tobacco use history. Diabetes COPD (chronic obstructive pulmonary disease) Father Cancer Lung CA w/ tobacco use history. Diabetes COPD (chronic obstructive pulmonary disease) Heart disease Surgical History Status post transmetatarsal amputation of left foot History of eye surgery History of lumpectomy History of foot surgery History of tubal ligation History of appendectomy Tubal ligation status Social History household members: none Smoking Status: Never smoker alcohol intake: never substance use type: does not use Physical Exam Const alert and no apparent distress General Appearance: cooperative and lethargic HEENT normocephalic and head/scalp atraumatic Eyes PERRL and EOMs intact bilaterally Neck supple and No nodes Resp normal air movement and clear to auscultation bilaterally Cardio Rate: tachycardic GI soft to palpation, non-tender and non-distended Extremity General Extremity: edema Skin Skin Narrative: Reviewed wound photos of heels Neuro CN's II-XII intact bilaterally Lab / Micro Data Attestation: I reviewed the patient's lab results. 10/16/24 05:00 10/16/24 05:00 Labs: Laboratory Results - last 24 hr 10/15/24 13:00: Urine Color Yellow, Urine Clarity Cloudy, Urine pH 5.0, Ur Specific [place] 1.015, Urine Protein 30 H, Urine Glucose (UA) Normal, Urine Ketones Negative, Urine Occult Blood 50 H, Urine Nitrite Negative, Urine Bilirubin Negative, Urine Urobilinogen Normal, Ur Leukocyte Esterase 500 H, Urine RBC 0-5 SEEN, Urine WBC >100 SEEN, Ur Squamous Epith Cells 0-5 SEEN, Urine Bacteria 4+, Urine Mucus 0 SEEN 10/15/24 17:08: POC Glucose 84 10/15/24 17:15: Lactic Acid 1.3 10/15/24 22:53: POC Glucose 94 10/16/24 05:00: WBC 21.9 H, RBC 1.89 L, Hgb 6.2 L, Hct 19.2 L, MCV 101.6 H, MCH 32.8 H, MCHC 32.3 D, RDW Std Deviation 63.7 H, RDW Coeff of Xin 17.3 H, Plt Count 181, MPV 9.8, Immature Gran % (Auto) 1.200 H, Neut % (Auto) 88.4 H, Lymph % (Auto) 6.5 L, [place] % (Auto) 3.7, Eos % (Auto) 0.0, Baso % (Auto) 0.2, Absolute Neuts (auto) 19.3 H, Absolute Lymphs (auto) 1.42, Nucleated RBC % 0, Differential Comment SCANNED, Sodium 140, Potassium 3.9, Chloride 120 H, Carbon Dioxide 15.0 L, Anion Gap 5, BUN 27 H, Creatinine 1.67 H, Estim Creat Clear Calc 27.84, Est GFR (MDRD) Af Amer 39 L, Est GFR (MDRD) Non-Af 32 L, BUN/Creatinine Ratio 16.2, Glucose 81, Calcium 7.2 L, Magnesium 1.5 L 10/16/24 08:22: Blood Type O POSITIVE, Antibody Screen NEGATIVE, Crossmatch See Detail Micro: Microbiology 10/15/24 13:00 Urine, Catheterized Urine Culture - Preliminary Gram negative bakari GNR lactose deputy [employer] 10/15/24 23:28 Mucosa - Nasopharyngeal SARS-CoV-2, Influenza & RSV (PCR) - Final 10/15/24 13:00 Mucosa - Nose SARS-CoV-2, Influenza & RSV (PCR) - Final Imaging Radiology Impression Abdomen/Pelvis CT 10/15/24 13:05 IMPRESSION: 1. [place]-ovarian/colo-uterine fistula with abnormal fistulous track and adhesion of the proximal sigmoid colon in the left upper pelvis connected to the right ovary which contains air and stool contents in continuity with the left side of the uterus see images 78/103 through 83/123 series 2. No abscess or free air is present in the peritoneal space. 2. A second fistulous connection or adhesion is present at the left posterior aspect of the uterus with the rectum see image #88/123 series 2. No visualized colonic masses. No visualized diverticula. Electronically Signed: Mirza Wagoner MD at 15:30 EST , Chest X-Ray 10/15/24 13:25 IMPRESSION: COPD/cystic emphysematous changes Electronically Signed: Mirza Wagoner MD at 14:09 EST ,
--- NOTE | 2024-10-16 13:51 | WOUNDNOTE ---
wound photo: left heel
--- NOTE | 2024-10-16 14:02 | CHAPLAIN ---
Type of Pastoral Visit ___ Initial Visit _x__ Follow-up Visit ___ On-call Visit ___ General Patient Visit ___ Spiritual Assessment ___ Family Conference ___ Bereavement ___ Rapid Response ___ Code Blue ___ Other (describe below) Pastoral Care Referral From _x__ Patient _x__ Family ___ Nurse ___ Physician ___ Railroad Track Repair Supervisor ___ Science Professor ___ Other (describe below) Sacrament/Intervention _x__ Active listening ___ Anointing ___ Moravian ___ Bereavement ___ Communion ___ Dang exploration ___ ___ Life review _x__ Prayer ___ Reconciliation ___ Sacrament of Sick _x__ Supportive presence ___ Wedding ___ Other (describe below) Pastoral Comments patient is alert, awake, and able to answer questions; pt is also very weak, her voice greatly softened over her normal voice, and tucked down in to her bed and not moving anything; daughter and granddaughter are with her in the room at bedside and are also engaging in the conversation; pt uses her spiritual resources to push through; pt does acknowledge the severity of her illness and her discomfort at this time; prayer is given for this patient
[2024-10-16] MEDS: Meropenem 1 GM in 0.9% Normal Saline (100mL MB+) 100 ML IV ×2 (15:44→23:36)
--- NOTE | 2024-10-16 16:21 | MRI_ITS ---
We are attempting to reach an attending provider to discuss findings. An addendum with communication details will be sent when the communication is complete. EXAM: MR HEAD WITHOUT INTRAVENOUS CONTRAST CLINICAL INDICATION: eval for CVA TECHNIQUE: Multiplanar and multisequence MR images of the brain were obtained without intravenous contrast. COMPARISON: No relevant prior studies available. FINDINGS: BRAIN AND EXTRA-AXIAL SPACES: There is a zone of intermediate high signal intensity restricted diffusion along the posterior medial aspect of the right sylvian fissure and involving a moderate zone superior to the right sphenoid fissure extending to the margin of the right lateral ventricle body, overall zone of restricted diffusion superior to the right sylvian fissure roughly 3.6 cm AP by 4.1 cm transverse and 4.7 cm craniocaudal, in the right MCA distribution. This has some signal void on ADC map, confirming acute infarct. Similar appearance of predominantly isointense to hyperintense planum sphenoid mass compared to MRI April 11, 2023 on T2-weighted inversion recovery images, isointense to torres matter on T1-weighted images. Previously favored to be a meningioma. This measures 2.4 cm x 1.9 cm on sagittal T1-weighted images. There is additional small focal high signal intensity on diffusion-weighted images without low signal on ADC map adjacent to the posterior horn with no corresponding signal change on ADC map and higher T2 inversion recovery signal, likely at least subacute. No intra- or extra-axial hemorrhage. SELLA: Unremarkable. Normal sella turcica, pituitary gland, infundibular stalk, optic chiasm and hypothalamus. AUDITORY SYSTEM: Unremarkable. The internal auditory canals are patent. 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 SINUSES: Unremarkable paranasal sinuses. MASTOID AIR CELLS: Mild high signal intensity in multiple mastoid air cells on T2-weighted images. ORBITS: Unremarkable as visualized. Both globes, extraocular muscles, optic nerves and retrobulbar fat appear unremarkable. VASCULATURE: Unremarkable as visualized. Normal flow voids in the major intracranial circulation. OTHER FINDINGS: The major [place] signal voids appear patent. MRI/Brain without Contrast IMPRESSION: 1. Moderate zone of restricted diffusion consistent with acute to early subacute infarct in the right central MCA distribution. 2. Similar appearance of extra-axial mass presumed to be meningioma compared to 2022. Electronically Signed: Marcy Grande MD at 20:29 EST ,
[2024-10-16] MEDS: Aspirin 300 MG Suppository RC (17:26)
[2024-10-17] VITALS (12 sets, daily range): BP systolic 97–125; BP diastolic 52–72; PULSE 67–82; RESP 16–19; TEMP 36.1–36.7; O2SAT 94–98; BMI 19.5
[2024-10-17 04:15] LABS: Hemoglobin 9.1 g/dL (12.0-15.0); Mean Corp Hgb Conc 33.7 g/dL (32-36); Mean Corpuscular Hgb 30.7 pg (27.0-32.0); Mean Corpuscular Volume 91.2 fL (81-99); Mean Platelet Vol. 9.2 fl (6.2-12.0); POSITIVE MORPHOLOGY YES; Platelet Count 200 K/mm3 (150-450); RBC Distribution Width CV 21.2 % (11.6-14.6); RBC Distribution Width SD 68.4 fl (35.1-43.9); Red Blood Count 2.96 M/mm3 (4.2-5.4); White Blood Count 27.6 K/mm3 (4.4-11.0)
[2024-10-17 04:45] LABS: Scan Indicated on CBC? Y/N YES- FLAGS NOTED
[2024-10-17 04:49] LABS: ALB/GLOB Ratio 0.2 RATIO (0.9-2.4); AST(SGOT) 13 U/L (15-37); Alanine Aminotransfer ALT/SGPT 8 U/L (13-56); Albumin, Serum 1.1 g/dL (3.2-5.0); Alkaline Phosphatase 109 U/L (45-117); Anion Gap 6 (5-15); BUN 27 mg/dL (7-18); BUN/Creat Ratio 14.1 RATIO (10-20); Calcium,Total 7.5 mg/dL (8.5-10.1); Chloride 117 mmol/L (98-107); Cholesterol 50 mg/dL (200); Creatinine, Serum 1.92 mg/dL (0.55-1.02); Differential Comment 2+; EST Glomerular Filtration Rate 28 mL/min (>60); Est Glom Filt Rate - Afr Amer 33 mL/min (>60); Estimated Creatinine Clearance 22.89 ml/min; Globulin 5.1 g/dL (2.2-4.2); Glucose 103 mg/dL (74-106); High Density Lipoprotein 32 mg/dL; Potassium 3.8 mmol/L (3.5-5.1); Protein, Total 6.2 g/dL (6.4-8.2); Sodium Level 139 mmol/L (136-145); Triglycerides 61 mg/dL; Very Low Density Lipoprotein 12 mg/dL (5-40)
[2024-10-17] MEDS: Albuterol 2.5 MG/3 ML VIAL.NEB. INHALATION (09:14)
--- NOTE | 2024-10-17 10:03 | PCM.PN.ID ---
Physical Exam Narrative Feeling ok, having weakness, no fever, no abd pain Const alert and no apparent distress Resp normal air movement and clear to auscultation bilaterally Cardio regular rate and regular rhythm GI soft to palpation, non-tender and non-distended Skin no rashes or lesions noted ID ID: Route of nutrition/ use of supplements: [] Nutritional Intake: [] IV Site: [] Nguyen Catheter: [] Assessment & Plan Assessment/Plan (1) Abdominal fistula: PLAN: Wbc worse today. MRI showed stroke. Denies abd pain. Ucx with GNR. CT showed fistulas present, if she does not improve with medical management, will need surgical eval. Cont linezolid/hayes for now. Will follow (2) Acute UTI: (3) Sepsis:
[2024-10-17] MEDS: Aspirin 81 MG TAB.CHEW PO (10:55)
[2024-10-17] MEDS: Linezolid 600 MG 600 MG/300 ML BAG 200 MG IV ×2 (10:58→20:48)
--- NOTE | 2024-10-17 11:12 | PCM.PN.HOSP ---
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 Patient appeared similar to yesterday afternoon, was sitting up fairly comfortably in bed and in no acute distress. She is sharp mentally and her speech was improved today from yesterday. She continues to have a flaccid left arm and left leg with no sensation. She does have some upper airway rhonchi and nursing noted that she has a weak cough. Patient denies any new pain or discomfort this morning. Discussed patient with neurology this afternoon and then had conversation with patient and family at the bedside. Patient has unfortunately had a large right sided stroke. Neuro recommended ordering an echocardiogram and MRA head and neck for further evaluation and those orders were placed. Patient will remain n.p.o. and plan is for speech therapy to see the patient tomorrow. Discussed with family that if patient has difficulty with swallowing, there is a possibility she may need PEG tube placement during this hospitalization. Noted to family that otherwise patient is improved from an infectious standpoint. Answered all other questions as able. Objective Data Objective Data Vital Signs: Vital Signs Temp Pulse Resp BP Pulse Ox O2 Del Method O2 Flow Rate 97.5 F L 71 18 102/55 L 95 Room Air 2 10/17/24 08:52 10/17/24 09:17 10/17/24 09:17 10/17/24 08:52 10/17/24 08:52 10/17/24 09:00 10/16/24 21:00 Oxygen Flow Rate (L/min) 2 Oxygen Delivery Method Room Air Weight: 51.7 kg Body Mass Index (BMI) 19.5 Intake & Output: Intake and Output for Last 24 Hours 10/15/24 10/16/24 10/17/24 23:59 23:59 23:59 Intake Total 3482.45 / 3482.45 1324 / 1324 120 / 120 Output Total 0 / 0 Balance 3482.45 / 3482.45 1324 / 1324 120 / 120 Lab / Micro Data 10/17/24 04:10 10/17/24 04:10 Labs: Laboratory Results - last 24 hr 10/16/24 05:00: Hemoglobin A1c Cancelled 10/16/24 08:22: Blood Type O POSITIVE, Antibody Screen NEGATIVE, Crossmatch See Detail 10/17/24 04:10: WBC 27.6 H, RBC 2.96 L, Hgb 9.1 L, Hct 27.0 L, MCV 91.2 D, MCH 30.7, MCHC 33.7, RDW Std Deviation 68.4 H, RDW Coeff of Xin 21.2 H, Plt Count 200, MPV 9.2, Differential Comment 2+, Sodium 139, Potassium 3.8, Chloride 117 H, Carbon Dioxide 16.0 L, Anion Gap 6, BUN 27 H, Creatinine 1.92 H, Estim Creat Clear Calc 22.89, Est GFR (MDRD) Af Amer 33 L, Est GFR (MDRD) Non-Af 28 L, BUN/Creatinine Ratio 14.1, Glucose 103, Calcium 7.5 L, Total Bilirubin 0.70, AST 13 L, ALT 8 L, Alkaline Phosphatase 109, Total Protein 6.2 L, Albumin 1.1 L, Globulin 5.1 H, Albumin/Globulin Ratio 0.2 L, Triglycerides 61, Cholesterol 50, LDL Cholesterol 6, VLDL Cholesterol 12, HDL Cholesterol 32 L Micro: Microbiology 10/15/24 13:00 Urine, Catheterized Urine Culture - Preliminary Gram negative bakari GNR lactose domestic cleaner GNR lactose domestic cleaner#2 10/15/24 13:15 Blood Culture (Wb) - Left Wrist Blood Culture - Preliminary No growth in 48 hours. 10/15/24 12:40 Blood Culture (Wb) - Right Hand Blood Culture - Preliminary No growth in 48 hours. 10/15/24 23:28 Mucosa - Nasopharyngeal Respiratory Panel (PCR) - Final 10/15/24 23:28 Mucosa - Nasopharyngeal SARS-CoV-2, Influenza & RSV (PCR) - Final 10/15/24 13:00 Mucosa - Nose SARS-CoV-2, Influenza & RSV (PCR) - Final Radiography Diagnostic Testing: Radiology Impression Brain CT 10/16/24 13:18 IMPRESSION: Findings suggestive of ischemic change involving the posterior right temporal parietal lobes. Correlation with the MRI recommended for further evaluation. Stable appearance of the calcified meningioma as described. Electronically Signed: Ming Louise MD at 15:26 EST , Brain MRI 10/16/24 16:21 IMPRESSION: 1. Moderate zone of restricted diffusion consistent with acute to early subacute infarct in the right central MCA distribution. 2. Similar appearance of extra-axial mass presumed to be meningioma compared to 2022. Electronically Signed: Marcy Grande MD at 20:29 EST Reading Location ID and State: [facility] / [place] Tel , Service support , ADDENDUM: 10/16/24 2104 IMPRESSION: 1. Moderate zone of restricted diffusion consistent with acute to early subacute infarct in the right central MCA distribution. 2. Similar appearance of extra-axial mass presumed to be meningioma compared to 2022. N.B. : The above Results were Read Back by Marcy Grande MD to Jelani Bhat MD, and understanding confirmed on 10/16/2024 20:57:22 (ET). Electronically Signed: Marcy Grande MD at 20:29 EST , Physical Exam Const alert and no apparent distress Constitutional Narrative: Elderly female, appears older than stated age, chronically ill-appearing, fatigued appearing, sitting up in bed fairly comfortably, mild difficulty with speaking but otherwise answering questions appropriately. General Appearance: cooperative HEENT normocephalic, head/scalp atraumatic, hearing grossly normal bilaterally, nasal mucous membranes and turbinates normal and moist oral mucous membranes Eyes PERRL, EOMs intact bilaterally and conjunctivae normal Chest inspection of chest normal Resp normal respiratory effort and no use of accessory muscles Resp Narrative: Breathing comfortably on room air at rest. Mild crackles noted in upper airways bilaterally, no wheezing noted. Cardio regular rate, regular rhythm, no murmurs and peripheral pulses 2+ throughout GI normal to inspection, nondistended, normoactive bowel sounds, soft to palpation, non-tender and non-distended Back/Spine normal ROM Extremity Extremity Narrative: Wrap noted on right foot for chronic wound. Prior left partial foot amputation noted. Neuro Neuro Narrative: Patient with flaccid left arm and left leg with no sensation in either extremity. No right-sided sensory changes. Assessment & Plan Assessment/Plan (1) Acute UTI: (2) Sepsis: (3) Weakness: (4) Abdominal fistula: PLAN: Plan Patient is a 69-year-old female who presented [facility] ED on 10/15/2024 with altered mentation and hypotension. 1. Sepsis without shock secondary to acute cystitis ? Infectious disease following. Patient presented with hypotension and altered mental status as well as significant leukocytosis. UA showed 500 leukocyte esterase, negative nitrites, greater than 100 WBCs, 4+ bacteria. CT abdomen pelvis with new fistulas found as noted below but no concerning urinary findings. Most likely infectious source is urinary. A good improvement blood pressure with 30 cc/kg of IV fluid resuscitation. Urine culture preliminary growing gram-negative rods, follow-up final cultures. Treating with linezolid and meropenem for now. 2. Acute on chronic anemia ? Hemoglobin 7.4 on admit, dropped to 6.2 on hospital day 2. Baseline appears to be around 7. Suspect drop was primarily due to IV fluid resuscitation. Transfused 2 units of packed red blood cells on 10/16, repeat hemoglobin 9.2. No overt signs of bleeding noted. Continue to monitor CBC daily. 3. Acute CVA ? Neurology following. Patient with new findings of left-sided upper extremity lower extremity weakness and difficulty with speaking on 10/16. CT brain without contrast showed findings suggestive of ischemic change involving the posterior right temporal and parietal lobes. MRI brain without contrast confirmed moderate zone of restricted diffusion consistent with acute early subacute infarct of the right central MCA distribution. Echo and MRA head/neck ordered. Gave aspirin 300 mg on 10/16 and treating with baby aspirin and high intensity statin. PT/OT/ST/CM following. Have concern regarding patient's ability to swallow and pending speech therapy recs may need to discuss PEG tube placement prior to discharge. 4. New colo-ovarian/colo-uterian fistula ? CT abdomen pelvis on admit showed colo-ovarian/colo-uterine fistula with abnormal fistulous track adhesion of the proximal sigmoid colon connected to the right ovary which contains air and stool contents in continuity with left side of the uterus, no abscess or free air present in peritoneal space; second fistulous connection or adhesion also present at left posterior aspect of the uterus. These findings were discussed with our general surgery team on admission who noted patient would be better served at a larger facility. Was discussed with [facility] at [facility] who noted that these findings are likely not contributing to her sepsis and recommended that patient be treated here for sepsis and can follow-up for outpatient management after discharge. 5. Chronic heel wounds ? Follows with podiatry, had appointment with Dr. Amador on day of admission and heel wounds did not appear acutely infected. Continue wound dressings. 6. Chronic diarrhea ? Patient noted this has improved recently. Will monitor while here especially as patient is on antibiotics which have caused worsening diarrhea for her in the past. 7. Mild creatinine elevation in setting of CKD stage IV, improved ? Creatinine 2.00 on admit, improved to 1.67 on hospital day 2 after IV fluid resuscitation. Baseline appears to be around 1.6. Continue to monitor daily BMP and urine output. 8. Acute on chronic debility ? PT/OT/case management following as above. 9. Suspected severe malnutrition ? Nutrition following. Patient currently n.p.o. status given stroke as noted above. 10. GERD ? Continue home PPI. DVT prophylaxis: SCDs CODE STATUS: DNR CCA, DNI Expected disposition: TBD Total clinical time spent by myself addressing the patient's medical issues, reviewing all the data, and collaborating with patient's care team: 50 minutes. Charges/Coding Visit Charges Inpatient E&M: 63724 [facility]
--- NOTE | 2024-10-17 11:37 | STROKE.CONS ---
Assessment and Plan: Stroke Assessment/Plan RED PRICE is a 69 F with a history of PAD, DVT, GERD, chronic diarrhea who presents for evaluation of AMS, found to have RMCA stroke. Stroke etiology: cryptogenic but will need to explore cardioembolic and hypercoagulable etiologies - Anti-platelet medication: Aspirin 81 mg daily - recoomend MRI head/neck - pending TTE - ldl 6 - no need to be on statin - Occupational/ Physical therapy consults - NPO until swallow evaluation. IVF until able to take po - DVT prophylaxis with SCDs and heparin SQ - Vascular risk factor modification. The following are the recommended guidelines: LDL Goal < 70 Smoking Cessation Diabetes Management USP blood pressure control should achieve <130/80 mmHg. 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 Weight Management: Goal for BMI is 18.5 -24.9 kg/m2 Alcohol: No more than 2 drinks/day for men or 1 drink/day for non- women - Promote lifestyle modification: weight control, physical activity, moderation of alcohol intake, moderate sodium intake. Followup with PCP in 1-2 weeks, and in Neurology clinic in 6-12 weeks HPI Consult Data Date of Consult: 10/17/24 HPI Narrative HPI Narrative: Pt admitted on 10/15. RED PRICE, is a 69-year-old female with history of PAD, DVT, GERD, chronic diarrhea, heel wounds follow with the wound care clinic who presented [facility] ED 10/15/2024 due to altered mental status and hypotension. She was seen at the wound care center today by Dr. Amador who noticed the changes in mental status and hypotension and sent her to the ED, he did not think it was from her heel wounds as this did not look infected. In the ED patient had white blood cell count of 24 and UA suggestive of UTI. Blood pressure initially 99/70 and improved with IV fluids. 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 ED physician contacted gynecology surgeon Dr. Luigi Hu who endorsed that these fistulas did not require emergent surgery and the patient should be admitted and treated for the sepsis and then can follow-up with Formal Service Waiter surgery on an outpatient basis. Patient was given sepsis fluids and antibiotics and hospitalist contacted for admission. Patient evaluated with family member at bedside. Reportedly patient has been weak and tired over the past few months and has been working to get stronger, does have chronic problems with nausea and diarrhea but has been following with Dr. Enriquez and naturopathic doctor in [place] and she is down to diarrhea couple times a week instead of multiple times a day however still has some chronic problems with nausea. Patient was awake and alert and interactive this morning however quickly decompensated around the time she was seen at the wound clinic by the time she got here she was significantly altered, patient reports she still little nauseous and fatigued and feels unwell but both she and daughter note she is better than when she arrived. Patient wears diapers so difficult to assess urinary symptoms but does have a history of UTIs. Denies any abdominal pain, has felt a little bit more short of breath today and has had cough with some phlegm, last week possibly had a sore throat and fever but daughter is unsure. Patient denies any chest pain or headache, does have chronic neuropathy but no other new or acute complaints Neurologic History Pt had a stroke in Oct that left her with R sided weakness - never recovered fully from the stroke on the R side. She was in a power chair prior to the stroke and still able to operate the power chair on the R hand. She was on a blood thinner a couple yrs ago but they took her off because o bleeding in the stomach and nose. She has mitral valve prolapse but denies history of afib [facility] Medical History Anemia in chronic illness Non-pressure chronic ulcer of left heel and midfoot with fat layer exposed PAD (peripheral artery disease) Neurapraxia History of benign brain tumor Type 2 diabetes mellitus with other skin ulcer Type 2 diabetes mellitus with foot ulcer Chronic deep vein thrombosis (DVT) of left lower extremity IBS (irritable bowel syndrome) Peripheral vascular disease, unspecified Non-pressure chronic ulcer of other part of right foot with fat layer exposed Asthma Malnutrition Difficulty in walking, not elsewhere classified Gastroparesis Acute renal insufficiency Urge incontinence Hydronephrosis Unable to ambulate Generalized weakness Non-pressure chronic ulcer of other part of right foot with fat layer exposed History of myocardial infarction History of cerebrovascular accident History of deep venous thrombosis (DVT) of distal vein of left lower extremity History of ischemic colitis Ulcer of amputation stump of foot Wound of left foot PAD (peripheral artery disease) Deep venous thrombosis of distal end of left lower extremity Type 2 diabetes mellitus with diabetic polyneuropathy Gastroesophageal reflux disease Osteoarthritis of cervical and lumbar spine Chronic diarrhea Brain tumor (benign) Diabetic foot ulcer Debility History of pneumonia Migraine Home Medications ?Medication ?Instructions ?Recorded ?Last Taken ?Type Lactobacillus rhamnosus GG 10 1 cap PO DAILY GUT HEALTH 04/10/23 04/09/23 History billion cell capsule (Culturelle) pantoprazole 40 mg tablet,delayed 40 mg PO DAILY GERD 04/10/23 02/02/24 06:00 History release albuterol sulfate 90 mcg/actuation 1 puff inhalation Q4H PRN 04/25/24 Unknown History aerosol inhaler (Ventolin HFA) SHORTNESS OF BREATH camphor-menthol 0.2 %-3.5 % 1 applic topical BID pain 04/25/24 Unknown History topical gel (Freeze It Relief) food supplemt, lactose-reduced 120 ml PO TID 04/25/24 Unknown History 0.04 gram-1.05 kcal/mL oral liquid (Boost Breeze Nutritional) melatonin 3 mg tablet 3 mg PO QHS PRN SLEEP 04/25/24 Unknown History ondansetron 4 mg disintegrating 4 mg PO Q6H PRN NAUSEA 04/25/24 Unknown History tablet acetaminophen 500 mg tablet 1,000 mg (2 x 500 mg) PO Q8H PRN 06/09/24 Unknown Rx Pain Score 1-5 3 days #0 tabs cephalexin 500 mg capsule 500 mg PO BID 10/15/24 Unknown History Allergy/AdvReac Type Severity Reaction Status Date / Time cefprozil Allergy Shortness Verified 06/04/24 12:47 of breath ceftriaxone Allergy Hives Verified 06/04/24 12:47 clindamycin Allergy Rash Verified 06/04/24 12:47 enalapril Allergy Other Verified 06/04/24 12:47 enoxaparin Allergy Rash Verified 06/04/24 12:47 heparin Allergy Rash Verified 06/04/24 12:47 levalbuterol Allergy Other Verified 06/04/24 12:47 morphine Allergy Shortness Verified 06/04/24 12:47 of breath Penicillins Allergy Anaphylaxis Verified 06/04/24 12:47 valsartan Allergy Other Verified 06/04/24 12:47 vancomycin Allergy Rash Verified 06/04/24 12:47 atorvastatin AdvReac Other Verified 06/04/24 12:47 rosuvastatin (From Crestor) AdvReac Other Verified 06/04/24 12:47 Family History Mother Cancer Lung CA w/ tobacco use history. Diabetes COPD (chronic obstructive pulmonary disease) Father Cancer Lung CA w/ tobacco use history. Diabetes COPD (chronic obstructive pulmonary disease) Heart disease Surgical History Status post transmetatarsal amputation of left foot History of eye surgery History of lumpectomy History of foot surgery History of tubal ligation History of appendectomy Tubal ligation status Social History household members: none Smoking Status: Never smoker alcohol intake: never substance use type: does not use Vital Signs Vital Signs Vital Signs: 10/16/24 12:00 10/16/24 12:00 10/16/24 12:30 Temperature 97.8 F Temperature Source Temporal Pulse Rate 78 76 Pulse Strength Respiratory Rate 21 H 19 H Respiratory Effort Normal Non-Labored Respiratory Depth Shallow Respiratory Pattern Blood Pressure 120/72 110/66 Blood Pressure Mean 88 80 Blood Pressure Source Monitor Monitor Blood Pressure Position Semi-Fowlers Semi-Fowlers Blood Pressure Location Right Arm Right Arm Pulse Ox 96 98 Oxygen Delivery Method Room Air Nasal Cannula Nasal Cannula Oxygen Flow Rate (L/min) 2 2 2 10/16/24 13:00 10/16/24 14:00 10/16/24 14:36 Temperature 97.8 F 97.8 F Temperature Source Temporal Temporal Pulse Rate 75 74 64 Pulse Strength Respiratory Rate 18 19 H 15 Respiratory Effort Respiratory Depth Respiratory Pattern Blood Pressure 106/72 110/68 113/50 L Blood Pressure Mean 83 82 71 Blood Pressure Source Monitor Monitor Monitor Blood Pressure Position Semi-Fowlers Semi-Fowlers Semi-Fowlers Blood Pressure Location Left Arm Left Arm Left Arm Pulse Ox 97 98 96 Oxygen Delivery Method Nasal Cannula Nasal Cannula Room Air Oxygen Flow Rate (L/min) 2 2 10/16/24 15:00 10/16/24 16:00 10/16/24 16:00 Temperature Temperature Source Pulse Rate 71 66 Pulse Strength Respiratory Rate 18 15 Respiratory Effort Normal Non-Labored Respiratory Depth Shallow Respiratory Pattern Normal Blood Pressure 104/56 L 93/61 Blood Pressure Mean 72 71 Blood Pressure Source Monitor Monitor Blood Pressure Position Semi-Fowlers Semi-Fowlers Blood Pressure Location Left Arm Left Arm Pulse Ox 98 99 Oxygen Delivery Method Nasal Cannula Nasal Cannula Nasal Cannula Oxygen Flow Rate (L/min) 2 2 2 10/16/24 16:21 10/16/24 16:36 10/16/24 16:51 Temperature 97.6 F L Temperature Source Temporal Pulse Rate 75 79 72 Pulse Strength Respiratory Rate 20 H 29 H 19 H Respiratory Effort Respiratory Depth Respiratory Pattern Blood Pressure 90/70 101/56 L 103/53 L Blood Pressure Mean 76 71 69 Blood Pressure Source Monitor Monitor Monitor Blood Pressure Position Semi-Fowlers Semi-Fowlers Semi-Fowlers Blood Pressure Location Left Arm Left Arm Left Arm Pulse Ox 96 98 98 Oxygen Delivery Method Nasal Cannula Nasal Cannula Nasal Cannula Oxygen Flow Rate (L/min) 2 2 2 10/16/24 17:06 10/16/24 18:06 10/16/24 19:06 Temperature Temperature Source Pulse Rate 72 66 64 Pulse Strength Respiratory Rate 17 15 13 Respiratory Effort Respiratory Depth Respiratory Pattern Blood Pressure 98/49 L 111/47 L 100/62 Blood Pressure Mean 65 68 74 Blood Pressure Source Monitor Monitor Monitor Blood Pressure Position Semi-Fowlers Semi-Fowlers Semi-Fowlers Blood Pressure Location Left Arm Left Arm Left Arm Pulse Ox 100 97 95 Oxygen Delivery Method Nasal Cannula Nasal Cannula Nasal Cannula Oxygen Flow Rate (L/min) 2 2 2 10/16/24 20:00 10/16/24 20:00 10/16/24 21:00 Temperature 97.8 F Temperature Source Temporal Pulse Rate 64 65 Pulse Strength Respiratory Rate 13 14 Respiratory Effort Normal Non-Labored Respiratory Depth Shallow Respiratory Pattern Bradypnea Blood Pressure 100/62 99/53 L Blood Pressure Mean 74 68 Blood Pressure Source Monitor Monitor Blood Pressure Position Semi-Fowlers Semi-Fowlers Blood Pressure Location Left Arm Left Arm Pulse Ox 95 95 Oxygen Delivery Method Nasal Cannula Nasal Cannula Nasal Cannula Oxygen Flow Rate (L/min) 2 2 2 10/16/24 22:00 10/16/24 22:00 10/16/24 23:00 Temperature Temperature Source Pulse Rate 68 62 Pulse Strength Weak (1+) Respiratory Rate 16 13 Respiratory Effort Respiratory Depth Respiratory Pattern Blood Pressure 104/55 L 103/56 L Blood Pressure Mean 71 71 Blood Pressure Source Monitor Monitor Blood Pressure Position Semi-Fowlers Sitting Blood Pressure Location Left Arm Left Arm Pulse Ox 94 94 Oxygen Delivery Method Room Air Room Air Oxygen Flow Rate (L/min) 10/17/24 00:00 10/17/24 00:00 10/17/24 00:00 Temperature 98 F 98 F Temperature Source Temporal Temporal Pulse Rate 67 67 Pulse Strength Respiratory Rate 19 H 19 H Respiratory Effort Normal Non-Labored Respiratory Depth Shallow Respiratory Pattern Bradypnea Blood Pressure 114/61 114/61 Blood Pressure Mean 78 78 Blood Pressure Source Monitor Monitor Blood Pressure Position Semi-Fowlers Semi-Fowlers Blood Pressure Location Left Arm Left Arm Pulse Ox 94 94 Oxygen Delivery Method Room Air Room Air Room Air Oxygen Flow Rate (L/min) 10/17/24 03:00 10/17/24 04:00 10/17/24 04:14 Temperature 98.1 F Temperature Source Temporal Pulse Rate 82 70 Pulse Strength Respiratory Rate 17 Respiratory Effort Normal Non-Labored Respiratory Depth Normal Respiratory Pattern Normal Blood Pressure 118/67 Blood Pressure Mean 84 Blood Pressure Source Monitor Blood Pressure Position Semi-Fowlers Blood Pressure Location Left Arm Pulse Ox 95 Oxygen Delivery Method Room Air Room Air Oxygen Flow Rate (L/min) 10/17/24 07:35 10/17/24 08:52 10/17/24 09:00 Temperature 97.5 F L Temperature Source Temporal Pulse Rate 77 Pulse Strength Respiratory Rate 16 Respiratory Effort Normal Non-Labored Respiratory Depth Respiratory Pattern Blood Pressure 102/55 L Blood Pressure Mean 70 Blood Pressure Source Monitor Blood Pressure Position Semi-Fowlers Blood Pressure Location Left Arm Pulse Ox 94 95 Oxygen Delivery Method Room Air Room Air Room Air Oxygen Flow Rate (L/min) 10/17/24 09:17 Temperature Temperature Source Pulse Rate 71 Pulse Strength Respiratory Rate 18 Respiratory Effort Respiratory Depth Respiratory Pattern Normal Blood Pressure Blood Pressure Mean Blood Pressure Source Blood Pressure Position Blood Pressure Location Pulse Ox Oxygen Delivery Method Oxygen Flow Rate (L/min) Weight Weight: 51.7 kg Body Mass Index (BMI) 19.5 EEG Results Procedure Details EEG Procedure Details: RED PRICE is a 69 year old F with a past medical history of , who presents for evaluation of Electroencephalogram on DATE at TIME NIHSS NIHSS Nursing Documentation NIHSS Nursing Documentation: NIHSS: Ischemic Stroke/TIA Start: 10/16/24 16:21 Text: For ICU Patients: NIH sroke scale at Status: Complete presentation and every 2 hours or with change in RN caregiver Freq: [id number] Protocol: Activity Type Activity Date Activity User E-sign Co-sign Detail Recorded Client Recorded Date Recorded By Document 10/17/24 00:00 [id number] 10/17/24 00:28 [facility] [place] 10/17/24 00:00 NIH Stroke Scale [NIHSS] A score of 0 is normal or asymptomatic . Total possible score is 42. Inpatient: RN or Physician to activate a stroke alert for onset of new stroke symptoms or with NIHSS increase >/= 3 points. Following change in neurological status, NIHSS will be performed per physician order or more frequently PRN. -1a. Level of Consciousness Not alert; Arousable by minor stimuli to obey, answer & respond -1b. LOC Questions Answers BOTH questions correctly. -1c. LOC Commands Performs both tasks correctly . -2. Best Gaze Partial gaze palsy; -3. Visual Partial hemianopia -4. Facial Palsy Minor paralysis (flattened nasolabial fold , asymmetry on smiling) -5a. Left Arm No effort against gravity ; arm falls -5b. Right Arm Drift; arm drifts downward but doesn?t hit the bed -6a. Left Leg No effort against gravity ; leg falls to bed immediately -6b. Right Leg Drift; leg falls by the end of 5- seconds, but does not hit bed -7. Limb Ataxia Present in 2 limbs -8. Sensory Severe to total sensory loss; -9. Best Language Mild-to- moderate aphasia; -10. Dysarthria Mild-to- moderate dysarthria; -11. Extinction and Inattention Visual, tactile , auditory, spatial, or personal inattention -Total 19 Query Text:A score of 0 is normal or asymptomatic. Total possible score is 42 . ED: Notify Physician for NIHSS increase by > / = 3 points. Inpatient: RN or Physician to activate a stroke alert for NIHSS increase of > / = 3 points. NIHSS: Ischemic Stroke/TIA Start: 10/16/24 16:21 Text: For PCU Patients: NIH and Neuro Check every 4 Status: Active hours, PRN and with change in RN caregiver. Freq: [id number] Protocol: Activity Type Activity Date Activity User E-sign Co-sign Detail Recorded Client Recorded Date Recorded By Document 10/17/24 10:00 [facility] [id number] 10/17/24 10:46 [facility] 10/17/24 10:00 -1a. Level of Consciousness Alert; keenly responsive -1b. LOC Questions Answers BOTH questions correctly. -1c. LOC Commands Performs both tasks correctly . -2. Best Gaze Partial gaze palsy; -3. Visual No visual loss -4. Facial Palsy Partial paralysis ( total or near- total paralysis of lower face) -5a. Left Arm No movement -5b. Right Arm No drift; arm holds 90 (or 45 ) degrees for full 10 seconds -6a. Left Leg No movement -6b. Right Leg Drift; leg falls by the end of 5- seconds, but does not hit bed -7. Limb Ataxia UN=Amputation or joint fusion , explain -'UN' explanation JUSTINO, left side flaccid -8. Sensory Severe to total sensory loss; -9. Best Language Mild-to- moderate aphasia; -10. Dysarthria Mild-to- moderate dysarthria; -11. Extinction and Inattention No abnormality -Total 16 Query Text:A score of 0 is normal or asymptomatic. Total possible score is 42 . ED: Notify Physician for NIHSS increase by > / = 3 points. Inpatient: RN or Physician to activate a stroke alert for NIHSS increase of > / = 3 points. NIHSS 1a. Level of Consciousness: Not alert; Arousable by minor stimuli to obey, answer & respond 1b. LOC Questions: Answers BOTH questions correctly. 1c. LOC Commands: Performs both tasks correctly. 2. Best Gaze: Forced deviation, 3. Visual: Partial hemianopia 4. Facial Palsy: Minor paralysis (flattened nasolabial fold, asymmetry on smiling) 5a. Left Arm: No movement 5b. Right Arm: No drift; arm holds 90 (or 45) degrees for full 10 seconds 6a. Left Leg: No movement 6b. Right Leg: No effort against gravity; leg falls to bed immediately 7. Limb Ataxia: Absent 8. Sensory: Normal; no sensory loss 9. Best Language: No aphasia; normal 10. Dysarthria: [id number] dysarthria; 11. Extinction and Inattention: No abnormality Total: 17 Lab / Micro Data 10/17/24 04:10 10/17/24 04:10 Labs: Laboratory Results - last 24 hr 10/16/24 05:00: Hemoglobin A1c Cancelled 10/16/24 08:22: Blood Type O POSITIVE, Antibody Screen NEGATIVE, Crossmatch See Detail 10/17/24 04:10: WBC 27.6 H, RBC 2.96 L, Hgb 9.1 L, Hct 27.0 L, MCV 91.2 D, MCH 30.7, MCHC 33.7, RDW Std Deviation 68.4 H, RDW Coeff of Xin 21.2 H, Plt Count 200, MPV 9.2, Differential Comment 2+, Sodium 139, Potassium 3.8, Chloride 117 H, Carbon Dioxide 16.0 L, Anion Gap 6, BUN 27 H, Creatinine 1.92 H, Estim Creat Clear Calc 22.89, Est GFR (MDRD) Af Amer 33 L, Est GFR (MDRD) Non-Af 28 L, BUN/Creatinine Ratio 14.1, Glucose 103, Calcium 7.5 L, Total Bilirubin 0.70, AST 13 L, ALT 8 L, Alkaline Phosphatase 109, Total Protein 6.2 L, Albumin 1.1 L, Globulin 5.1 H, Albumin/Globulin Ratio 0.2 L, Triglycerides 61, Cholesterol 50, LDL Cholesterol 6, VLDL Cholesterol 12, HDL Cholesterol 32 L Micro: Microbiology 10/15/24 13:00 Urine, Catheterized Urine Culture - Preliminary Gram negative bakari 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 10/15/24 12:40 Blood Culture (Wb) - Right Hand Blood Culture - Preliminary No growth in 48 hours. 10/15/24 23:28 Mucosa - Nasopharyngeal Respiratory Panel (PCR) - Final 10/15/24 23:28 Mucosa - Nasopharyngeal SARS-CoV-2, Influenza & RSV (PCR) - Final Imaging Radiology Impression Brain CT 10/16/24 13:18 IMPRESSION: Findings suggestive of ischemic change involving the posterior right temporal parietal lobes. Correlation with the MRI recommended for further evaluation. Stable appearance of the calcified meningioma as described. Electronically Signed: Ming Louise MD at 15:26 EST , Brain MRI 10/16/24 16:21 IMPRESSION: 1. Moderate zone of restricted diffusion consistent with acute to early subacute infarct in the right central MCA distribution. 2. Similar appearance of extra-axial mass presumed to be meningioma compared to 2022. Electronically Signed: Marcy Grande MD at 20:29 EST , ADDENDUM: 10/16/242103 IMPRESSION: 1. Moderate zone of restricted diffusion consistent with acute to early subacute infarct in the right central MCA distribution. 2. Similar appearance of extra-axial mass presumed to be meningioma compared to 2022. N.B. : The above Results were Read Back by Marcy Grande MD to Jelani Bhat MD, and understanding confirmed on 10/16/2024 20:57:22 (ET). Electronically Signed: Marcy Grande MD at 20:29 EST , Active Medications Active Medications Active Medications: Current Medications Generic Name Dose Route Start Last Admin Trade Name Freq PRN Reason Stop Dose Admin Acetaminophen 650 mg 10/15/24 20:27 10/16/24 12:38 Acetaminophen 325 Mg Tablet PO 650 mg Q6H PRN PRN Administration Pain 1-10 Or Fever >100.7 Albuterol Sulfate 2.5 mg 10/15/24 20:27 10/17/24 09:14 Albuterol 2.5 Mg/3 Ml Vial.Neb. INHALATION 2.5 mg Q2H PRN PRN Administration SOB &/OR WHEEZING Aspirin 81 mg 10/17/24 08:00 10/17/24 10:55 Aspirin 81 Mg Tab.Chew PO 81 mg BREAKFAST HEMA Administration Atorvastatin Calcium 40 mg 10/16/24 22:00 10/16/24 21:22 Atorvastatin Calcium 40 Mg Tablet PO Not Given QHS HEMA Hydralazine HCl 5 mg 10/16/24 16:21 Hydralazine 20 Mg/Ml Vial IV 10/17/24 16:21 Q30M PRN maintain BP parameters with HR <60 Meropenem 1 gm/ Sodium 120 mls @ 33 mls/hr 10/16/24 10:00 10/17/24 03:20 Chloride IV Infused Q12 HEMA Infusion Linezolid 600 mg in 300 mls @ 200 mls/hr 10/16/24 10:00 10/17/24 10:58 Zyvox 600mg IV 200 mls/hr Q12 HEMA Administration Labetalol HCl 10 - 20 mg 10/16/24 16:21 Labetalol (Prefilled) 20 Mg/4 Ml Vial IV 10/17/24 16:21 Q10M PRN PRN maintain BP parameters with HR >/=60 Melatonin 3 mg 10/15/24 20:27 Melatonin 3 Mg Tablet PO QHS PRN PRN INSOMNIA Ondansetron HCl 4 mg 10/15/24 20:27 10/16/24 08:56 Ondansetron 4 Mg/2 Ml Vial IV 4 mg Q8H PRN PRN Administration NAUSEA/VOMITING Pantoprazole Sodium 40 mg 10/16/24 10:00 10/17/24 10:39 Pantoprazole Sodium 40 Mg Tablet PO Not Given DAILY HEMA Senna/Docusate Sodium 2 tablet 10/15/24 20:27 Senna/Docusate Sodium 1 Tablet PO BID PRN PRN Constipation Sodium Chloride 10 - 40 ml 10/15/24 20:39 10/16/24 08:56 0.9% Saline Lock 10 Ml Syringe IV 10 ml UD PRN Administration SALINE FLUSH
[2024-10-17] MEDS: Meropenem 1 GM in 0.9% Normal Saline (100mL MB+) 100 ML IV ×2 (12:53→20:48)
--- NOTE | 2024-10-17 13:20 | CASEMGMT ---
Social Work PHQ9 depression screen completed as pt has had a stroke. Pt with score of 5 indicating mild depression. SW provided support to patient. Pt discussing discharge and requesting to return home with home health. SW explained that it is too early to make discharge plans at this point and that SW will speak with pt and her dgt Prabha when pt is more medically stable for discharge. Pt agreeable to this. SW will continue to follow. LETY Wilks
--- NOTE | 2024-10-17 14:25 | ECHOD_ITS ---
Reason For Study: TIA/CVA Procedure This was a 2D Doppler, Color Flow transthoracic echocardiogram. The patient was scanned supine. The study was technically difficult. Exam performed portable in ICU/CCU. Left Ventricle Normal LV size. Left ventricular systolic function is normal. The left ventricular ejection fraction is 70 %. No regional wall motion abnormalities noted. Right Ventricle Normal RV size. Normal systolic function. Atria Normal left atrium. Normal right atrium. Mitral Valve Normal mitral valve. Tricuspid Valve Normal tricuspid valve. Mild tricuspid valve insufficiency. Pulmonary artery systolic pressure is 30 mmHg. Aortic Valve Trisinus/trileaflet aortic valve. Pulmonic Valve Normal pulmonic valve. Great Vessels Normal aortic root. The pulmonary artery is normal size. Inferior vena cava collapse with respiration. Pericardium/Pleural No pericardial effusion. MMode/2D Measurements & Calculations LVIDd: 3.5 cm IVSd: 1.1 cm LVOT diam: 1.9 cm LVIDs: 1.7 cm LVPWd: 1.2 cm LVOT area: 2.7 cm2 RVDd: 2.7 cm FS: 50.9 % asc Aorta Diam: 2.6 cm LAV(MOD-sp4): 10.7 ml LVAd ap4: 14.9 cm2 LVLd ap4: 6.3 cm EDV(MOD-sp4): 28.7 ml EDV(sp4-el): 29.7 ml LVAs ap4: 6.5 cm2 LVLs ap4: 5.2 cm ESV(MOD-sp4): 7.4 ml ESV(sp4-el): 7.0 ml EF(MOD-sp4): 74.3 % EF(sp4-el): 76.5 % LVAd ap2: 13.8 cm2 SV(MOD-sp4): 21.3 ml SV(MOD-sp2): 17.6 ml LVLd ap2: 5.9 cm SI(MOD-sp4): 13.9 ml/m2 SI(MOD-sp2): 11.5 ml/m2 EDV(MOD-sp2): 25.5 ml EDV(sp2-el): 27.2 ml LVAs ap2: 6.7 cm2 LVLs ap2: 5.0 cm ESV(MOD-sp2): 7.9 ml ESV(sp2-el): 7.6 ml EF(MOD-sp2): 68.9 % SV(sp4-el): 22.7 ml Ao sinus diam: 2.[address] [place]: 2.1 cm LA dimension(2D): 2.3 cm LA A4 area: 7.0 cm2 RA A4 area: 10.3 cm2 TAPSE: 1.5 cm Time Measurements MV dec time: 0.17 sec Doppler Measurements & Calculations MV E max drake: 74.8 cm/sec Lat Peak E' Drake: 9.5 cm/sec Med Peak E' Drake: 6.8 cm/sec MV A max drake: 78.2 cm/sec E/E' lat: 7.9 E/E' med: 11.0 MV E/A: 0.96 MV dec slope: 440.7 cm/sec2 Ao V2 max: 135.7 cm/sec LV V1 max: 79.3 cm/sec Ao max P.4 mmHg LV V1 max P.5 mmHg Ao V2 mean: 93.6 cm/sec LV V1 mean P.4 mmHg Ao mean P.9 mmHg LV V1 mean: 58.3 cm/sec Ao V2 VTI: 22.7 cm LV V1 VTI: 15.5 cm AV (velocity ratio): 0.68 MELISSA(I,D): 1.8 cm2 MELISSA(V,D): 1.6 cm2 SV(LVOT): 41.7 ml PA V2 max: 69.3 cm/sec TR max drake: 252.2 cm/sec TR max P.4 mmHg ECHO/Echo Complete Interpretation Summary Normal LV size. Left ventricular systolic function is normal. The left ventricular ejection fraction is 70 %. Pulmonary artery systolic pressure is 30 mmHg. Ordering Physician: Ciaran Richard Performed By: Xin Enamorado RDCS
--- NOTE | 2024-10-17 14:26 | MRI_ITS ---
STUDY: MRA OF THE HEAD WITHOUT CONTRAST REASON FOR EXAM: Female, 69 years old. Acute CVA TECHNIQUE: 3-D [id number] (TOF) imaging was performed with MIPs. The study was performed unenhanced. Contrast: No contrast administered COMPARISON: MRI examination of brain on the same date. FINDINGS: CAROTID VESSELS: Normal bilateral petrous carotid arteries. Normal right cavernous carotid artery with a normal supraclinoid bifurcation. Normal left cavernous carotid artery with a normal supraclinoid bifurcation. ANTERIOR CEREBRAL ARTERIES: There is a developmentally atretic RIGHT A1 segment. Dominant LEFT A1 segment and patent anterior communicating artery. A2 segments are patent bilaterally. MIDDLE CEREBRAL ARTERIES: RIGHT MCA: There is normal patency of the RIGHT M1 segment. Normal appearance of the trifurcation. There is normal appearance of the RIGHT orbital frontal branch and normal appearance of the inferior M2 segment. There however is abrupt decrease in contrast superior M2 division (series 3: Image is [id number]) which extends into the region of acute ischemic change on recent MRI. LEFT MCA: Normal left M1 and M2 segments of the middle cerebral arteries, with a normal M1 bifurcation. POSTERIOR COMMUNICATING ARTERIES: There is a persistent origin of the right posterior cerebral artery with absence of the P1 segment of the right posterior cerebral artery. Normal left posterior communicating artery (PCOM). VERTEBRAL BASILAR SYSTEM: Normal bilateral vertebral arteries. Normal basilar artery with a normal basilar bifurcation. The visualized bilateral superior cerebellar (SCA) arteries are normal. POSTERIOR CEREBRAL ARTERIES Normal bilateral P1, P2 and visualized P3 segments of the posterior cerebral arteries. Developmentally atretic RIGHT P1 segment due to origin. There is no demonstrated aneurysm of the [place]. MRI/MRA Head ONLY without Contrast IMPRESSION: 1. There is decreased flow signal within the proximal portion of the superior M2 segments of the RIGHT MCA corresponding to the territory of acute ischemic change on recent MRI. 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 2. No other areas of focal stenosis occlusion or aneurysmal dilatation. Electronically Signed: Ángel Lin MD at 19:18 EST ,
--- NOTE | 2024-10-17 14:26 | MRI_ITS ---
HISTORY: acute CVA Date: 10/17/2024 5:27 PM Technique: MR a examination of the neck obtained with standard protocol including [id number] imaging and three-dimensional reconstructions. No contrast administered. Comparison: No previous for comparison FINDINGS MRA Neck: Aortic arch: Aortic arch is not included on current exam, however normal appearance of the great vessels at the root of the neck. Right carotid system: There is normal appearance RIGHT common carotid, RIGHT internal carotid arteries, and the bifurcation. Normal appearance of the external carotid circulation on the RIGHT. Left carotid system: There is normal appearance of the LEFT common carotid, LEFT internal carotid, and the bifurcation. There is normal appearance of the LEFT external carotid circulation Vertebral arteries: There is normal appearance of the vertebral arteries bilaterally without focal stenosis or occlusion. Airway and soft tissues of the neck: There is normal appearance of the musculofascial planes of suprahyoid and infrahyoid neck. Normal appearance of the visualized airway. Normal appearance the visualized thyroid without masses or nodules noted. Cervical spine: Normal appearance of bony elements of the cervical spine. No focal stenosis or occlusion involving the cervical spinal canal. MRI/MRA Neck without Contrast IMPRESSION: 1. No evidence of occlusion or hemodynamically significant stenosis in the cervical carotid or vertebral vessels to level skull base. Origin of the great vessels from the aortic arch is not included on current exam however. Electronically Signed: Ángel Lin MD at 20:41 EST ,
[2024-10-17] MEDS: Menthol/Lanolin/Calamine/Znox 113 GM Tube 1 APPLIC TOPICAL (20:47)
[2024-10-18] VITALS (7 sets, daily range): BP systolic 106–114; BP diastolic 60–76; PULSE 73–79; RESP 15–18; TEMP 36.2–36.6; O2SAT 96–99; BMI 19.5
[2024-10-18] MEDS: Ondansetron 4 MG/2 ML Vial IV (01:57)
[2024-10-18] MEDS: Menthol/Lanolin/Calamine/Znox 113 GM Tube 1 APPLIC TOPICAL ×2 (05:56→20:33)
[2024-10-18 06:06] LABS: Hematocrit 26.6 % (37-47); Hemoglobin 9.4 g/dL (12.0-15.0); Mean Corp Hgb Conc 35.3 g/dL (32-36); Mean Corpuscular Hgb 31.5 pg (27.0-32.0); Mean Corpuscular Volume 89.3 fL (81-99); Mean Platelet Vol. 9.3 fl (6.2-12.0); POSITIVE MORPHOLOGY YES; Platelet Count 203 K/mm3 (150-450); RBC Distribution Width CV 20.6 % (11.6-14.6); RBC Distribution Width SD 65.9 fl (35.1-43.9); Red Blood Count 2.98 M/mm3 (4.2-5.4); White Blood Count 27.3 K/mm3 (4.4-11.0)
[2024-10-18 06:10] LABS: Scan Indicated on CBC? Y/N YES- FLAGS NOTED
[2024-10-18 07:00] LABS: ALB/GLOB Ratio 0.2 RATIO (0.9-2.4); AST(SGOT) 16 U/L (15-37); Alanine Aminotransfer ALT/SGPT < 6 U/L (13-56); Albumin, Serum 1.2 g/dL (3.2-5.0); Alkaline Phosphatase 125 U/L (45-117); Anion Gap 7 (5-15); BUN 30 mg/dL (7-18); BUN/Creat Ratio 13.3 RATIO (10-20); Calcium,Total 7.8 mg/dL (8.5-10.1); Chloride 116 mmol/L (98-107); Creatinine, Serum 2.26 mg/dL (0.55-1.02); EST Glomerular Filtration Rate 23 mL/min (>60); Est Glom Filt Rate - Afr Amer 28 mL/min (>60); Globulin 5.2 g/dL (2.2-4.2); Glucose 71 mg/dL (74-106); Potassium 3.6 mmol/L (3.5-5.1); Protein, Total 6.4 g/dL (6.4-8.2); Sodium Level 138 mmol/L (136-145)
--- NOTE | 2024-10-18 09:12 | SP.MBSS_ITS ---
Modified Barium Swallow Patient Information Study Date: 10/18/24 Study Time: 13:00 Direct Billable Minutes: 100 Total Minutes procedure & reportin Diagnosis: Hypoxia R09.02; Sepsis A41.9 Referring Physician: Ciaran Richard Reason for Referral: Objectively assess swallow function, assess risk for aspiration, and determine recommendations for least restrictive diet textures and compensatory strategies to improve safety of swallow. Medical History: Pt presented to [facility] ED 10/15/2024 due to AMS. She was seen at the wound center day of admission and Dr. Amador noticed changes in mental status and hypotension and sent her to the ED, he did not think it was from her heel wounds as this did not look infected. In the ED patient had white blood cell count of 24 and UA suggestive of UTI. Pt hypotensive, but this improved w/ IV fluids. 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 ED physician contacted gynecology surgeon Dr. Luigi Hu who endorsed that these fistulas did not require emergent surgery and the patient should be admitted and treated for the sepsis, then can follow- up with [facility] surgery on an outpatient basis. Pt admitted to ICU for management of sepsis, UTI, amongst other comorbidities. On ICU, pt became acutely weak, flaccid on L side. Stroke alert was called. Brain MRI 10/16/2024 IMPRESSION: 1. Moderate zone of restricted diffusion consistent with acute to early subacute infarct in the right central MCA distribution. 2. Similar appearance of extra- axial mass presumed to be meningioma compared to 2022. ST consulted as part of CVA work up. RN held dysphagia screener. BSE 10/17/24 recommended NPO w/ water by tsp after oral care if fully alert and w/ total feeding assistance. Of note, the pt very fatigued and unable to hold her head upright 10/17/24; however, during dysphagia therapy session on 10/18/24, pt was still fatigued but she supported her head herself and remained alert throughout session. She was recommended for this MBSS to assess aspiration risk and consider diet advancement. Pt seen by ST in March 2024 during hospitalization for management of UTI, hyponatremia. MBSS was completed 04/26/2024 revealing Mild-moderate oropharyngeal dysphagia and inpatient GI consult. Esophageal dysphagia w/ recommendation for Easy to Chew / Thin Direct Sup/Assist cutting foods and inpatient GI consult. Hx of additional dysphagia therapy at [facility] 02/03/24-02/15/24 for management of oral and esophageal dysphagia with minced and moist textures / thin liquids with aspiration and reflux precautions. 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 Current Diet Ordered: NPO Dentition: Edentulous Mental Status: Impaired Respiratory Status: Oxygenating on Room Air Penetration-Aspiration Scale Penetration-Aspiration Scale: OBJECTIVE ASSESSMENT OF SWALLOW FUNCTION (QUANTITATIVE ? PER TRIAL): PENETRATION / ASPIRATION SCALE ([place]): 1 = does not enter airway 2 = enters airway/above vocal folds/ejected 3 = enters airway/above vocal folds/not ejected 4 = enters airway/contacts vocal folds/ejected 5 = enters airway/contacts vocal folds/not ejected 6 = enters airway/below vocal folds/ejected 7 = enters airway/below vocal folds/not ejected despite effort 8 = enters airway/below vocal folds/no effort VIDEOFLOROSCOPIC SCALE SCORE ([place]): Grade I = aspiration of material that has penetrated into the laryngeal vestibule, intact cough reflex Grade II = aspiration < 10 % of the bolus, intact cough reflex Grade III = aspiration of < 10 % of the bolus, reduced cough reflex or aspiration of > 10 % of the bolus, intact cough reflex Grade IV = aspiration of > 10 % of the bolus, reduced cough reflex Penetration-Aspiration Scale Score Thin Liquid via teaspoon: Result: 1= does not enter airway Thin Liquid via teaspoon Trial 2: Result: 1= does not enter airway Thin Liquid via single sip: straw: Result: 1= does not enter airway Thin Liquid via sequential sips:straw: Result: 3= enters airways/above vocal folds/not ejected [place] Thick Liquid via single sip: straw: Result: 1= does not enter airway Pudding via teaspoon: Result: 1= does not enter airway Comment: Esophageal screen - Retention in the lower esophagus w/ minimal retrograde flow. Thin Liquid via single sip: straw Trial 2: Result: 7= enters airways/below vocal folds/not ejected despite effort Comment: Esophageal screen - Retention in the lower esophagus w/ minimal retrograde flow. [place] Thick Liquid via single sip: straw Trial 2: Result: 1= does not enter airway [place] Thick Liquid via single sip: straw Trial 3: Result: 1= does not enter airway Oral Phase Labial Seal: Escape beyond mid-chin (>1/2 bolus w/ thin by tsp 2X) Tongue Control During Bolus Hold: Posterior escape of greater than half of bolus Bolus Transport/Lingual Motion: Repetitive/disorganized tongue motion Oral Residue: Residue collection on oral structures Pharyngeal Phase Initiation of Pharyngeal Swallow: Bolus head in pyriforms Soft Palate Elevation: No bolus between soft palate and pharyngeal wall Laryngeal Elevation: Partial superior movement thyroid cart/partial apprx aryt- epig petiole Anterior Hyoid Excursion: Partial anterior movement Epiglottic Movement: Complete inversion Laryngeal Vestibule Closure at Height of Swallow: Incomplete; narrow column of air/contrast in laryngeal vestibule Pharyngeal Stripping Wave: Present - diminished Pharyngoesophageal Segment Opening: Parital distension and partial duration; parital obstruction of flow Tongue Base Retraction: Narrow column of contrast between tongue base & post. pharyngeal wall Pharyngeal Residue: Collection of residue within or on pharyngeal structures Esophageal Phase Esophageal Clearance: Esophageal retention w/ retrograde flow below pharyngoesophageal seg. Diagnosis/Impression Diagnosis: Moderate-severe oropharyngeal dysphagia R13.12 Impression: The oral phase is primarily marked by... -Poor labial seal w/ anterior loss of >1/2 of both thin by tsp trials. -Lingual pumping for A-P transport of pudding. -Did not assess mastication due to pt's fatigue and edentulous status. The pharyngeal phase is primarily marked by... -Delayed swallow onset. -Decreased airway closure due to poor anterior hyoid excursion and decreased laryngeal elevation w/ overt aspiration of thin liquids by straw w/ weak reflexive cough. -Mildly decreased tongue base, but minimal pharyngeal stripping wave w/ mild pharyngal residues. The esophageal phase is primarily marked by... -Retention of pudding and thin liquids in the esophagus w/ retrograde flow. 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s Diet: Puree Textures and [place]-thick Liquids Comment: If increased s/s of aspiration or worsening alertness, stop meal. Compensatory Strategies: Small Bites, Small Sips, Sips by straw only (Pinch straw to ensure 1 sip at a time), Slow Rate, Alternate bites/solids and sips/liquids and Sitting upright (during and 60 min after oral intake) Supervision: Total Feed Recommend Repeat Modified Barium Swallow: Yes Comment: 1-2 weeks after implementation of oropharyngeal exercise program Need for Skilled Speech Therapy Services: Yes Comment: -Ongoing assessment of diet tolerance. -Train staff in aspiration precautions. -Implement oral motor and oropharyngeal exercises to improve lip seal, bolus control, airway closure, and pharyngeal motility (lingual and labial strength/ROM/coordination exercises, CTAR, Effortful swallows). -Complete speech production and cognitive-linguistic assessments in upcoming sessions to set additional goals to POC as needed. Recommended Referrals: GI Consult (Pt follows w/ Dr. Melissa. Retention of barium pudding and thin liquids in middle and distal esophagus. Will recommend pt for GI consult, especially if s/s of reflux w/ meals.) Education Completed: 1. Described result of evaluation. and 2. Pt understands evaluation & agrees with goals and treatment plan. Status Active ST Patient: Active Contact Information [facility] Speech Therapy:: Pamela Odom M.A. [facility]? Speech-Language Pathologist?? [facility] [address] [place] [address]? [email or web address]?? [phone]
--- NOTE | 2024-10-18 10:08 | PCM.PN.ID ---
Physical Exam Narrative Feeling ok, no abd pain. No fever. Const alert and no apparent distress Resp normal air movement and clear to auscultation bilaterally Cardio regular rate and regular rhythm GI soft to palpation, non-tender and non-distended Skin no rashes or lesions noted ID ID: Route of nutrition/ use of supplements: [] Nutritional Intake: [] IV Site: [] Nguyen Catheter: [] Assessment & Plan Assessment/Plan (1) Abdominal fistula: PLAN: Wbc stable today. MRI showed stroke. Denies abd pain. Ucx with proteus, ecoli, GNR. CT showed fistulas present, if she does not improve with medical management, will need surgical eval. Cont hayes for now. Will stop linezolid. Will follow (2) Acute UTI: (3) Sepsis:
--- NOTE | 2024-10-18 10:27 | PN.HOSP_ITS ---
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 Patient appeared similar to yesterday afternoon. She was fatigued appearing but was mentating appropriately and answering questions appropriately. She does have soft speech and is difficult to understand at times. She notably was saying this morning that she may not want to be aggressive with her care moving forward and would consider talking about hospice. She does have capacity. She was especially concerned about being able to eat and I noted that speech would be seeing her later today and we could discuss further after they get the recommendations. Have been in discussion more with patient's daughter as well and would like to involve daughter in this discussion too. Objective Data Objective Data Vital Signs: Vital Signs Temp Pulse Resp BP Pulse Ox O2 Del Method O2 Flow Rate 97.2 F L 77 17 114/68 99 Room Air 2 10/18/24 02:00 10/18/24 05:38 10/18/24 05:38 10/18/24 02:00 10/18/24 05:38 10/18/24 05:38 10/16/24 21:00 Oxygen Flow Rate (L/min) 2 Oxygen Delivery Method Room Air Weight: 52.9 kg Body Mass Index (BMI) 20.0 Intake & Output: Intake and Output for Last 24 Hours 10/16/24 10/17/24 10/18/24 23:59 23:59 23:59 Intake Total 1324 / 1324 840 / 840 120 / 120 Output Total 0 / 0 0 / 0 0 / 0 Balance 1324 / 1324 840 / 840 120 / 120 Lab / Micro Data 10/18/24 05:48 10/18/24 05:48 Labs: Laboratory Results - last 24 hr 10/18/24 05:48: WBC 27.3 H, RBC 2.98 L, Hgb 9.4 L, Hct 26.6 L, MCV 89.3, MCH 31.5, MCHC 35.3, RDW Std Deviation 65.9 H, RDW Coeff of Xin 20.6 H, Plt Count 203, MPV 9.3, Differential Comment , Sodium 138, Potassium 3.6, Chloride 116 H, Carbon Dioxide 15.0 L, Anion Gap 7, BUN 30 H, Creatinine 2.26 H, Estim Creat Clear Calc 19.90, Est GFR (MDRD) Af Amer 28 L, Est GFR (MDRD) Non-Af 23 L, BUN/Creatinine Ratio 13.3, Glucose 71 L, Calcium 7.8 L, Total Bilirubin 0.80, AST 16, ALT < 6 L, Alkaline Phosphatase 125 H, Total Protein 6.4, Albumin 1.2 L, Globulin 5.2 H, Albumin/Globulin Ratio 0.2 L Micro: Microbiology 10/15/24 13:00 Urine, Catheterized Urine Culture - Preliminary Proteus mirabilis GNR 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 10/15/24 12:40 Blood Culture (Wb) - Right Hand Blood Culture - Preliminary No growth in 48 hours. 10/15/24 23:28 Mucosa - Nasopharyngeal Respiratory Panel (PCR) - Final 10/15/24 23:28 Mucosa - Nasopharyngeal SARS-CoV-2, Influenza & RSV (PCR) - Final 10/15/24 13:00 Mucosa - Nose SARS-CoV-2, Influenza & RSV (PCR) - Final Radiography Diagnostic Testing: Radiology Impression Echocardiogram 10/17/24 14:25 Interpretation Summary Normal LV size. Left ventricular systolic function is normal. The left ventricular ejection fraction is 70 %. Pulmonary artery systolic pressure is 30 mmHg. Ordering Physician: Ciaran Richard Performed By: Xin Enamorado RDCS Head MRA 10/17/24 14:26 IMPRESSION: 1. There is decreased flow signal within the proximal portion of the superior M2 segments of the RIGHT MCA corresponding to the territory of acute ischemic change on recent MRI. 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 2. No other areas of focal stenosis occlusion or aneurysmal dilatation. Electronically Signed: Ángel Lin MD at 19:18 EST , Neck MRA 10/17/24 14:26 IMPRESSION: 1. No evidence of occlusion or hemodynamically significant stenosis in the cervical carotid or vertebral vessels to level skull base. Origin of the great vessels from the aortic arch is not included on current exam however. Electronically Signed: Ángel Lin MD at 20:41 EST , Physical Exam Const alert and no apparent distress Constitutional Narrative: Elderly female, appears older than stated age, chronically ill-appearing, fatigued appearing, sitting up in bed fairly comfortably, mild difficulty with speaking but otherwise answering questions appropriately. Stable. General Appearance: cooperative HEENT normocephalic, head/scalp atraumatic, hearing grossly normal bilaterally, nasal mucous membranes and turbinates normal and moist oral mucous membranes Eyes PERRL, EOMs intact bilaterally and conjunctivae normal Chest inspection of chest normal Resp normal respiratory effort and no use of accessory muscles Resp Narrative: Breathing comfortably on room air at rest. Mild crackles noted in upper airways bilaterally, no wheezing noted. Stable. Cardio regular rate, regular rhythm, no murmurs and peripheral pulses 2+ throughout GI normal to inspection, nondistended, normoactive bowel sounds, soft to palpation, non-tender and non-distended Back/Spine normal ROM Extremity Extremity Narrative: Wrap noted on right foot for chronic wound. Prior left partial foot amputation noted. Neuro Neuro Narrative: Patient with flaccid left arm and left leg with no sensation in either extremity. No right-sided sensory changes. Stable. Assessment & Plan Assessment/Plan (1) Acute UTI: (2) Sepsis: (3) Weakness: (4) Abdominal fistula: PLAN: Plan Patient is a 69-year-old female who presented [facility] ED on 10/15/2024 with altered mentation and hypotension. 1. Sepsis without shock secondary to acute cystitis ? Infectious disease following. Patient presented with hypotension and altered mental status as well as significant leukocytosis. UA showed 500 leukocyte esterase, negative nitrites, greater than 100 WBCs, 4+ bacteria. CT abdomen pelvis with new fistulas found as noted below but no concerning urinary findings. Most likely infectious source is urinary. A good improvement blood pressure with 30 cc/kg of IV fluid resuscitation. Urine culture growing Proteus, E. coli and gram-negative rods. Linezolid discontinued on 10/18, will continue meropenem for now. 2. Acute on chronic anemia ? Hemoglobin 7.4 on admit, dropped to 6.2 on hospital day 2. Baseline appears to be around 7. Suspect drop was primarily due to IV fluid resuscitation. Transfused 2 units of packed red blood cells on 10/16, repeat hemoglobin 9.2. No overt signs of bleeding noted. Continue to monitor CBC daily. 3. Acute CVA ? Neurology following. Patient with new findings of left-sided upper extremity lower extremity weakness and difficulty with speaking on 10/16. CT brain without contrast showed findings suggestive of ischemic change involving the posterior right temporal and parietal lobes. MRI brain without contrast confirmed moderate zone of restricted diffusion consistent with acute early subacute infarct of the right central MCA distribution. Echo and MRA head/neck ordered. Gave aspirin 300 mg on 10/16 and treating with baby aspirin and high intensity statin. PT/OT/ST/CM following. Have concern regarding patient's ability to swallow and pending speech therapy recs may need to discuss PEG tube placement versus hospice care prior to discharge. 4. New colo-ovarian/colo-uterian fistula ? CT abdomen pelvis on admit showed colo-ovarian/colo-uterine fistula with abnormal fistulous track adhesion of the proximal sigmoid colon connected to the right ovary which contains air and stool contents in continuity with left side of the uterus, no abscess or free air present in peritoneal space; second fistulous connection or adhesion also present at left posterior aspect of the uterus. These findings were discussed with our general surgery team on admission who noted patient would be better served at a larger facility. Was discussed with Ob-Stem Dryer Maintainer at [facility] who noted that these findings are likely not contributing to her sepsis and recommended that patient be treated here for sepsis and can follow-up for outpatient management after discharge. 5. Chronic heel wounds ? Follows with podiatry, had appointment with Dr. Amador on day of admission and heel wounds did not appear acutely infected. Continue wound dressings. 6. Chronic diarrhea ? Patient noted this has improved recently. Will monitor while here especially as patient is on antibiotics which have caused worsening diarrhea for her in the past. 7. Mild creatinine elevation in setting of CKD stage IV, improved ? Creatinine 2.00 on admit, improved to 1.67 on hospital day 2 after IV fluid resuscitation. Baseline appears to be around 1.6. Patient has had slow worsening of creatinine again, most recent creatinine 2.26 on 10/18. Suspect this is due to n.p.o. status and dehydration. Given fluid bolus and started on maintenance fluids on 10/18. Continue to monitor daily BMP and urine output. 8. Acute on chronic debility ? PT/OT/case management following as above. 9. Suspected severe malnutrition ? Nutrition following. Patient currently n.p.o. status given stroke as noted above. 10. GERD ? Continue home PPI. DVT prophylaxis: SCDs CODE STATUS: DNR CCA, DNI Expected disposition: TBD Total clinical time spent by myself addressing the patient's medical issues, reviewing all the data, and collaborating with patient's care team: 35 minutes. Charges/Coding Visit Charges Inpatient E&M: 48827 Subs Hosp L2
[2024-10-18] MEDS: Lactated Ringers 1,000 ML 999 ML IV (10:35)
[2024-10-18] MEDS: Meropenem 1 GM in 0.9% Normal Saline (100mL MB+) 100 ML IV (10:35)
--- NOTE | 2024-10-18 11:46 | CASEMGMT ---
Patient's sister Jackie is stating she is patient's Healthcare Power of Zigzag Machine Operator (HCPOA)and patient's daughter Prabha is stating she is patient's HCPOA. EDER found a copy of HCPOA papers completed in 2020 which name patient's sister Jackie as HCPOA. EDER notified RN and put documents in patient's chart. EDER also called patient's daughter Prabha and let her know the copy of HCPOA papers [facility] has on file name patient's sister Jackie. EDER encouraged Prabha that if there are updated paper she should bring the papers in to [facility]. Prabha thanked SW. At this time patient is able to make her own decisions. Cande Garcia BUSINESS PROPOSAL REP OUTPATIENT CODING SPECIALIST
[2024-10-18] MEDS: Dext 5%-0.45% NS 1,000 ML 75 ML IV (11:47)
--- NOTE | 2024-10-18 13:03 | CHAPLAIN ---
Type of Pastoral Visit ___ Initial Visit _x__ Follow-up Visit ___ On-call Visit ___ General Patient Visit ___ Spiritual Assessment ___ Family Conference ___ Bereavement ___ Rapid Response ___ Code Blue ___ Other (describe below) Pastoral Care Referral From _x__ Patient _x__ Family ___ Nurse ___ Physician ___ Information Tech ___ Bankruptcy Legal Assistant ___ Other (describe below) Sacrament/Intervention _x__ Active listening ___ Anointing ___ Islam ___ Bereavement ___ Communion ___ Dang exploration ___ _x__ Life review _x__ Prayer ___ Reconciliation ___ Sacrament of Sick _x__ Supportive presence ___ Wedding ___ Other (describe below) Pastoral Comments family members request follow up as does the patient; pt situation has changed and decisions about medical treatments will be made following more evaluations; pt states clearly that she does not want more interventions and that I want to go home and see Terrence; without family members present the patient states to this fixed income manager, that I just want my family to let me go; daughter later states while in the room and in the presence of the patient that she cannot be God and that we will see how we can give you the best quality of life while you are living; patient is listening to Quaker music and says that she finds comfort in that and continues to talk about going to heaven and seeing her loved ones there; family members gather around the bed and prayer is offered for the patient and family; ongoing support can be supplied by this fixed income manager as needed and available
--- NOTE | 2024-10-18 15:40 | PN.NEURO_ITS ---
Objective Data Objective Data Vital Signs: Vital Signs Temp Pulse Resp BP Pulse Ox O2 Del Method O2 Flow Rate 97.3 F L 79 17 108/76 98 Room Air 2 10/18/24 08:00 10/18/24 08:00 10/18/24 08:00 10/18/24 08:00 10/18/24 09:30 10/18/24 09:30 10/16/24 21:00 Oxygen Flow Rate (L/min) 2 Oxygen Delivery Method Room Air Weight: 52.9 kg Body Mass Index (BMI) 20.0 Intake & Output: Intake and Output for Last 24 Hours 10/16/24 10/17/24 10/18/24 23:59 23:59 23:59 Intake Total 1324 / 1324 840 / 840 1143.65 / 1143.65 Output Total 0 / 0 0 / 0 0 / 0 Balance 1324 / 1324 840 / 840 1143.65 / 1143.65 Lab / Micro Data 10/18/24 05:48 10/18/24 05:48 Labs: Laboratory Results - last 24 hr 10/16/24 05:00: Miscellaneous Test 10/18/24 05:48: WBC 27.3 H, RBC 2.98 L, Hgb 9.4 L, Hct 26.6 L, MCV 89.3, MCH 31.5, MCHC 35.3, RDW Std Deviation 65.9 H, RDW Coeff of Xin 20.6 H, Plt Count 203, MPV 9.3, Differential Comment , Sodium 138, Potassium 3.6, Chloride 116 H, Carbon Dioxide 15.0 L, Anion Gap 7, BUN 30 H, Creatinine 2.26 H, Estim Creat Clear Calc 19.90, Est GFR (MDRD) Af Amer 28 L, Est GFR (MDRD) Non-Af 23 L, BUN/Creatinine Ratio 13.3, Glucose 71 L, Calcium 7.8 L, Total Bilirubin 0.80, AST 16, ALT < 6 L, Alkaline Phosphatase 125 H, Total Protein 6.4, Albumin 1.2 L, Globulin 5.2 H, Albumin/Globulin Ratio 0.2 L Micro: Microbiology 10/15/24 13:00 Urine, Catheterized Urine Culture - Preliminary Proteus mirabilis GNR lactose breast splitter Escherichia coli 10/15/24 13:15 Blood Culture (Wb) - Left Wrist Blood Culture - Preliminary No growth in 48 hours. 10/15/24 12:40 Blood Culture (Wb) - Right Hand Blood Culture - Preliminary No growth in 48 hours. 10/15/24 23:28 Mucosa - Nasopharyngeal Respiratory Panel (PCR) - Final 10/15/24 23:28 Mucosa - Nasopharyngeal SARS-CoV-2, Influenza & RSV (PCR) - Final 10/15/24 13:00 Mucosa - Nose SARS-CoV-2, Influenza & RSV (PCR) - Final Radiography Diagnostic Testing: Radiology Impression Echocardiogram 10/17/24 14:25 Interpretation Summary Normal LV size. Left ventricular systolic function is normal. The left ventricular ejection fraction is 70 %. Pulmonary artery systolic pressure is 30 mmHg. Ordering Physician: Ciaran Richard Performed By: Xin Enamorado RDCS Head MRA 10/17/24 14:26 IMPRESSION: 1. There is decreased flow signal within the proximal portion of the superior M2 segments of the RIGHT MCA corresponding to the territory of acute ischemic change on recent MRI. 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 2. No other areas of focal stenosis occlusion or aneurysmal dilatation. Electronically Signed: Ángel Lin MD at 19:18 EST , Neck MRA 10/17/24 14:26 IMPRESSION: 1. No evidence of occlusion or hemodynamically significant stenosis in the cervical carotid or vertebral vessels to level skull base. Origin of the great vessels from the aortic arch is not included on current exam however. Electronically Signed: Ángel Lin MD at 20:41 EST , Subject: Neurology Subjective Patient slightly more awake. She is still weak but making jokes and discussing wanting to eat. EEG Results Procedure Details EEG Procedure Details: RED PRICE is a 69 year old F with a past medical history of , who presents for evaluation of Electroencephalogram on DATE at TIME Assessment and Plan: Stroke Assessment/Plan RED PRICE is a 69 F with a history of PAD, DVT, GERD, chronic diarrhea who presents for evaluation of AMS, found to have RMCA stroke. Stroke etiology: cryptogenic but will need to explore cardioembolic and hypercoagulable etiologies - Anti-platelet medication: Aspirin 81 mg daily - recoomend MRa head/neck - there is M2 occlusion but no clear atherosclerotic disease - TTE without clear abnormalities - ldl 6 - no need to be on statin - Occupational/ Physical therapy consults - NPO until swallow evaluation. IVF until able to take po - DVT prophylaxis with SCDs and heparin SQ - Vascular risk factor modification. The following are the recommended guidelines: LDL Goal < 70 Smoking Cessation Diabetes Management jail blood pressure control should achieve <130/80 mmHg. BP management should aim to achieve director long term care contorl in a reasonable amount of time, taking into consideration the individual patient's requirements and characteristics. Weight Management: Goal for BMI is 18.5 -24.9 kg/m2 Alcohol: No more than 2 drinks/day for men or 1 drink/day for non- women - Promote lifestyle modification: weight control, physical activity, moderation of alcohol intake, moderate sodium intake. Will follow peripherally. Discussed GOC and recovery with patient - she will have some recovery of the L sided weakness, leg more than arm but that patient will have continued weakness onthe L and will be weaker on the L than the R (previously the L side was her strong side). She will remain likely wheelchair bound and will likely never cook or be able to independently do transfers again. Do believe with time (months) that her swallow likely will eventually recover for her to be able to eat more. Followup with PCP in 1-2 weeks, and in Neurology clinic in 6-12 weeks
[2024-10-18] MEDS: Meropenem 500 MG in 0.9% Normal Saline (50mL MB+) 50 ML 100 MG IV (20:33)
[2024-10-18] MEDS: MENTHOL 226.8 GM JAR 1 APPLIC TOPICAL (23:53)
[2024-10-19] VITALS (9 sets, daily range): BP systolic 127–133; BP diastolic 71–76; PULSE 74–80; RESP 11–20; TEMP 36.3–36.6; O2SAT 97–99
[2024-10-19] MEDS: Menthol/Lanolin/Calamine/Znox 113 GM Tube 1 APPLIC TOPICAL ×2 (05:18→15:14)
[2024-10-19] MEDS: MENTHOL 226.8 GM JAR 1 APPLIC TOPICAL ×2 (05:33→10:49)
[2024-10-19 08:12] LABS: Hematocrit 25.6 % (37-47); Hemoglobin 8.7 g/dL (12.0-15.0); Mean Corpuscular Volume 91.1 fL (81-99); Mean Platelet Vol. 9.3 fl (6.2-12.0); POSITIVE MORPHOLOGY YES; Platelet Count 154 K/mm3 (150-450); RBC Distribution Width CV 20.5 % (11.6-14.6); RBC Distribution Width SD 66.9 fl (35.1-43.9); Red Blood Count 2.81 M/mm3 (4.2-5.4); White Blood Count 22.2 K/mm3 (4.4-11.0)
[2024-10-19 08:13] LABS: Scan Indicated on CBC? Y/N YES- FLAGS NOTED
[2024-10-19 08:21] LABS: Anion Gap 6 (5-15); BUN 30 mg/dL (7-18); BUN/Creat Ratio 13.3 RATIO (10-20); Calcium,Total 7.5 mg/dL (8.5-10.1); Chloride 118 mmol/L (98-107); Creatinine, Serum 2.26 mg/dL (0.55-1.02); EST Glomerular Filtration Rate 23 mL/min (>60); Est Glom Filt Rate - Afr Amer 28 mL/min (>60); Estimated Creatinine Clearance 19.86 ml/min; Glucose 76 mg/dL (74-106); Potassium 3.6 mmol/L (3.5-5.1); Sodium Level 140 mmol/L (136-145)
[2024-10-19] MEDS: Aspirin 81 MG TAB.CHEW PO (08:35)
[2024-10-19] MEDS: Meropenem 500 MG in 0.9% Normal Saline (50mL MB+) 50 ML 100 MG IV (10:43)
--- NOTE | 2024-10-19 11:00 | PN.HOSP_ITS ---
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 Dr. Melissa was also present. Dr. Melissa was discussing possible PEG tube placement with them. Patient had indicated yesterday that she may be amenable to this; however on discussion today she does not want to have any more procedures done and is clear that she would like to pursue comfort care. Patient does have capacity. I discussed with her and sister what hospice care would look like and noted that if patient desired, I could consult hospice services to come see the patient today. Patient was agreeable with this and both sister and daughter over the phone were also agreeable. Hospice consulted and is planning to see the patient at bedside at 2 PM today. Patient notably did report generalized pain and was asking for pain medications at that time. Objective Data Objective Data Vital Signs: Vital Signs Temp Pulse Resp BP Pulse Ox O2 Del Method O2 Flow Rate 97.9 F 77 20 H 133/76 H 98 Room Air 2 10/19/24 08:37 10/19/24 08:37 10/19/24 08:37 10/19/24 08:37 10/19/24 08:37 10/19/24 08:37 10/16/24 21:00 Oxygen Flow Rate (L/min) 2 Oxygen Delivery Method Room Air Weight: 52.8 kg Body Mass Index (BMI) 20.0 Intake & Output: Intake and Output for Last 24 Hours 10/17/24 10/18/24 10/19/24 23:59 23:59 23:59 Intake Total 840 / 840 1323.65 / 1323.65 1000 / 1000 Output Total 0 / 0 0 / 0 0 / 0 Balance 840 / 840 1323.65 / 1323.65 1000 / 1000 Lab / Micro Data 10/19/24 08:00 10/19/24 08:00 Labs: Laboratory Results - last 24 hr 10/16/24 05:00: Miscellaneous Test 10/19/24 08:00: WBC 22.2 H, RBC 2.81 L, Hgb 8.7 L, Hct 25.6 L, MCV 91.1, MCH 31.0, MCHC 34.0, RDW Std Deviation 66.9 H, RDW Coeff of Xin 20.5 H, Plt Count 154, MPV 9.3, Differential Comment , Sodium 140, Potassium 3.6, Chloride 118 H, Carbon Dioxide 16.0 L, Anion Gap 6, BUN 30 H, Creatinine 2.26 H, Estim Creat Clear Calc 19.86, Est GFR (MDRD) Af Amer 28 L, Est GFR (MDRD) Non-Af 23 L, BUN/Creatinine Ratio 13.3, Glucose 76, Calcium 7.5 L Micro: Microbiology 10/15/24 13:00 Urine, Catheterized Urine Culture - Final Proteus mirabilis Serratia liquefaciens group Escherichia coli 10/15/24 13:15 Blood Culture (Wb) - Left Wrist Blood Culture - Preliminary No growth in 48 hours. 10/15/24 12:40 Blood Culture (Wb) - Right Hand Blood Culture - Preliminary No growth in 48 hours. 10/15/24 23:28 Mucosa - Nasopharyngeal Respiratory Panel (PCR) - Final 10/15/24 23:28 Mucosa - Nasopharyngeal SARS-CoV-2, Influenza & RSV (PCR) - Final 10/15/24 13:00 Mucosa - Nose SARS-CoV-2, Influenza & RSV (PCR) - Final Physical Exam Const alert and no apparent distress Constitutional Narrative: Elderly female, appears older than stated age, chronically ill-appearing, fatigued appearing, sitting up in bed fairly comfortably, mild difficulty with speaking but otherwise answering questions appropriately. Stable. General Appearance: cooperative HEENT normocephalic, head/scalp atraumatic, hearing grossly normal bilaterally, nasal mucous membranes and turbinates normal and moist oral mucous membranes Eyes PERRL, EOMs intact bilaterally and conjunctivae normal Chest inspection of chest normal Resp normal respiratory effort and no use of accessory muscles Resp Narrative: Breathing comfortably on room air at rest. Mild crackles noted in upper airways bilaterally, no wheezing noted. Stable. Cardio regular rate, regular rhythm, no murmurs and peripheral pulses 2+ throughout GI normal to inspection, nondistended, normoactive bowel sounds, soft to palpation, non-tender and non-distended Back/Spine normal ROM Extremity Extremity Narrative: Wrap noted on right foot for chronic wound. Prior left partial foot amputation noted. Neuro Neuro Narrative: Patient with flaccid left arm and left leg with no sensation in either extremity. No right-sided sensory changes. Stable. Assessment & Plan Assessment/Plan (1) Acute UTI: (2) Sepsis: (3) Weakness: (4) Abdominal fistula: PLAN: Plan Patient is a 69-year-old female who presented [facility] ED on 10/15/2024 with altered mentation and hypotension. 1. Adult failure to thrive ? Discussions with patient and family have been ongoing regarding goals of care. Discussed at length at the bedside on morning of 10/19. PEG tube placement was recommended but patient decided that she did not want to go through any more invasive procedures. Patient does have capacity at this time. On further discussion, patient decided she would like to pursue comfort care measures. Hospice consulted and will be seeing her this afternoon at 2 PM. Will hold on changing CODE STATUS to DNR CC until this hospice discussion has occurred. 2. Sepsis without shock secondary to acute cystitis ? Infectious disease following. Patient presented with hypotension and altered mental status as well as significant leukocytosis. UA showed 500 leukocyte esterase, negative nitrites, greater than 100 WBCs, 4+ bacteria. CT abdomen pelvis with new fistulas found as noted below but no concerning urinary findings. Most likely infectious source is urinary. A good improvement blood pressure with 30 cc/kg of IV fluid resuscitation. Urine culture growing Proteus, E. coli and gram-negative rods. Linezolid discontinued on 10/18, will continue meropenem for now. 3. Acute on chronic anemia ? Hemoglobin 7.4 on admit, dropped to 6.2 on hospital day 2. Baseline appears to be around 7. Suspect drop was primarily due to IV fluid resuscitation. Transfused 2 units of packed red blood cells on 10/16, repeat hemoglobin 9.2. No overt signs of bleeding noted. Continue to monitor CBC daily. 4. Acute CVA ? Neurology following. Patient with new findings of left-sided upper extremity lower extremity weakness and difficulty with speaking on 10/16. CT brain without contrast showed findings suggestive of ischemic change involving the posterior right temporal and parietal lobes. MRI brain without contrast confirmed moderate zone of restricted diffusion consistent with acute early subacute infarct of the right central MCA distribution. Echo and MRA head/neck ordered. Gave aspirin 300 mg on 10/16 and treating with baby aspirin and high intensity statin. PT/OT/ST/CM following. Patient declined PEG tube and plan is for comfort care measures as noted above. 5. New colo-ovarian/colo-uterian fistula ? CT abdomen pelvis on admit showed colo-ovarian/colo-uterine fistula with abnormal fistulous track adhesion of the proximal sigmoid colon connected to the right ovary which contains air and stool contents in continuity with left side of the uterus, no abscess or free air present in peritoneal space; second fistulous connection or adhesion also present at left posterior aspect of the uterus. These findings were discussed with our general surgery team on admission who noted patient would be better served at a larger facility. Was discussed with Ob-Cooling System Operator at [facility] who noted that these findings are likely not contributing to her sepsis and recommended that patient be treated here for sepsis with outpatient follow-up after discharge. Of note, discussed with patient and family here and given her poor functional status it is very unlikely she would be a surgical candidate. 6. Chronic heel wounds ? Follows with podiatry, had appointment with Dr. Amador on day of admission and heel wounds did not appear acutely infected. Continue wound dressings. 7. Chronic diarrhea ? Patient noted this has improved recently. Will monitor while here especially as patient is on antibiotics which have caused worsening diarrhea for her in the past. 8. Mild creatinine elevation in setting of CKD stage IV, improved ? Creatinine 2.00 on admit, improved to 1.67 on hospital day 2 after IV fluid resuscitation. Baseline appears to be around 1.6. Patient has had slow worsening of creatinine again, most recent creatinine 2.26 on 10/18. Suspect this is due to n.p.o. status and dehydration. Given fluid bolus and started on maintenance fluids on 10/18, kidney function stable on 10/19. Continue to monitor daily BMP and urine output. 9. Suspected severe malnutrition ? Nutrition following. Patient currently n.p.o. status given stroke as noted above. 10. GERD ? Continue home PPI. DVT prophylaxis: SCDs CODE STATUS: DNR CCA, DNI Expected disposition: TBD Total clinical time spent by myself addressing the patient's medical issues, reviewing all the data, and collaborating with patient's care team: 35 minutes. Charges/Coding Visit Charges Inpatient E&M: 72188 Subs Hosp L2
[2024-10-19] MEDS: HYDROmorphone 0.5 MG/0.5 ML SYRINGE IV ×2 (11:17→15:14)
--- NOTE | 2024-10-19 11:24 | CASEMGMT ---
EDER was informed patient would like Hospice. EDER met with patient and her sister Jackie. Introduced self and role at [facility]. EDER confirmed patient would like to talk to Hospice. Patient would like Hospice to call her daughter Prabha to set up meeting. EDER called Prabha and she is aware of the hospice consult. EDER let Prabha know that hospice will be calling her to set up a meeting. Prabha asked about patient going to a [facility] on hospice. EDER explained patient would have to pay room and board at the fpc and insurance would pay for the hospice services. EDER called [facility] and spoke with Jeniffer regarding referral. EDER also faxed hospice information. Cande Garcia POWER LINE INSTALLER JOIE
--- NOTE | 2024-10-19 11:58 | CASEMGMT ---
SW received a call from [facility]. They will be meeting with patient and family today at 14:00. SW notified physician and RN. SW also placed the signed DNR in patient's chart. Cande SALTER
--- NOTE | 2024-10-20 10:42 | DCINST_ITS ---
Discharge Instructions Diet Discharge Diet: No restrictions DC O2, CPAP, BIPAP needs Home O2 Discharge instructions: No Dressing / Incision Discharge Activity: No Restrictions Follow Up Care Test Results: Test results from this visit will be discussed in further detail at your follow- up appointment, if applicable. Discharge Plan Admission Admit Date/Time: 10/15/24 18:59 Primary Reason for Your Visit: confusion and low blood pressure Attending Provider: Ciaran Richard Primary Care Provider: Cody Billings Consulting Providers: Sara Horton; Rachid Benitez; Yoana Ospina; Yara Clifton; Angelica Dunn; Brittany Moreira NP; Janine Ludwig; Kentrell Iqbal; Babar Jamil; Eugenio Wu; Amira Obrien; Leana Zavaleta; Luz Mcnulty; Hermann Leigh; Maria E Ahmadi; Rodolfo Loo; Jeffrey Hennessy; Hosea Horvath; Bernice Mckeon; Harshad Nicholas; Sosa Myers; Ashley Bowman; Sterling Gerard; Zheng Bustamante; Honey Thomson; Andrea Bill; Mary Carmen Hall; Deepika Angulo Discharge Orders/Prescriptions Prescriptions: Continued pantoprazole 40 mg Tablet,Delayed Release (Dr/Ec) 40 mg PO DAILY Culturelle 10 billion cell Capsule 1 cap PO DAILY acetaminophen 500 mg Tablet 1,000 mg PO Q8H PRN (Reason: Pain Score 1-5) 3 Days Qty: 0 0RF Rx Instructions: Not more than 3 g/day cephalexin 500 mg capsule 500 mg PO BID melatonin 3 mg tablet 3 mg PO QHS PRN (Reason: SLEEP ) Boost Breeze Nutritional 0.04-1.05 gram-kcal/mL liquid 120 ml PO TID Freeze It Relief 0.2-3.5 % gel 1 applic topical BID Patient Comments: APPLY TOPICALLY TO NECK, UPPER BACK, AND SHOULDERS TWICE DAILY albuterol sulfate [Ventolin HFA] 90 mcg/actuation Hfa Aerosol Inhaler 1 puff inhalation Q4H PRN (Reason: SHORTNESS OF BREATH) ondansetron 4 mg Tablet,Disintegrating 4 mg PO Q6H PRN (Reason: NAUSEA) Referrals / Follow Up: Cody Billings MD [Primary Care Provider] - Disposition Disposition (needs filled in before D/C Order can be placed): Hospice in Medical Facility
--- NOTE | 2024-10-20 10:44 | PCM.DC.SUM ---
Providers Date of Admission: 10/15/24 Date of Discharge: 10/19/24 Primary Care Physician: Dr. Cody Billings MD Consultations 10/16/24 08:04 Consult: Infectious Disease Routine Consulting Provider: Kentrell Iqbal Reason for Consult: sepsis 2/2 UTI vs unclear source, multiple abx allergies EMERGENT Consult: No MD Notified: Yes Date Notified: 10/16/24 Time Notified: 08:04 Method of Notification: Text 10/16/24 10:01 Consult: Onc/Wound/electrical lineman Routine Comment: Reason for Consult:: b/l chronic heel wound care 10/16/24 16:21 Consult: Tele-Neurology Routine Consulting Provider: [facility] Reason for Consult: Acute Ischemic Stroke/TIA EMERGENT Consult: No MD Notified: Yes Date Notified: 10/16/24 Time Notified: 16:21 Method of Notification: Answering Service Nursing Unit Staff Notify [facility] of Tele-Neurology Consult: Yes 10/18/24 14:40 Consult: Gastroenterology Routine Consulting Provider: [facility] Reason for Consult: s/p stroke w/ dysphagia, speech requesting eval for EGD EMERGENT Consult: No Notified: Yes Date Notified: 10/18/24 Time Notified: 14:40 Method of Notification: Text 10/19/24 10:55 Consult: Hospice / Palliative Care Routine Consulting Provider: [facility] Reason for Consult: failure to thrive, recent CVA EMERGENT Consult: No MD Notified: Yes Date Notified: 10/19/24 Time Notified: 10:55 Method of Notification: Verbal Reason For Visit: AMS UTI HYPOTENSION Diagnosis Discharge Diagnosis (1) Acute UTI: Status: Acute Code(s): N39.0 - Urinary tract infection, site not specified (2) Sepsis: Status: Acute Code(s): A41.9 - Sepsis, unspecified organism (3) Weakness: Status: Acute Code(s): R53.1 - Weakness (4) Abdominal fistula: Status: Acute Code(s): K63.2 - Fistula of intestine Medications at Discharge Home Medications Lactobacillus rhamnosus GG 10 billion cell capsule (Culturelle) 1 cap PO DAILY G[employer] HEALTH 04/10/23 pantoprazole 40 mg tablet,delayed release 40 mg PO DAILY GERD 04/10/23 albuterol sulfate 90 mcg/actuation aerosol inhaler (Ventolin HFA) 1 puff inhalation Q4H PRN SHORTNESS OF BREATH 04/25/24 camphor-menthol 0.2 %-3.5 % topical gel (Freeze It Relief) 1 applic topical BID pain 04/25/24 food supplemt, lactose-reduced 0.04 gram-1.05 kcal/mL oral liquid (Boost Breeze Nutritional) 120 ml PO TID 04/25/24 melatonin 3 mg tablet 3 mg PO QHS PRN SLEEP 04/25/24 ondansetron 4 mg disintegrating tablet 4 mg PO Q6H PRN NAUSEA 04/25/24 acetaminophen 500 mg tablet 1,000 mg (2 x 500 mg) PO Q8H PRN Pain Score 1-5 3 days #0 tabs 06/09/24 cephalexin 500 mg capsule 500 mg PO BID 10/15/24 Hospital Course Operations None Procedures EKG, Modified Barium Swallow, Transthoracic echo and - (CT abdomen pelvis, chest x-ray, CT brain, MRI brain, MRA head/neck) Summary of Care Provided Minutes Spent on Discharge: 35 Hospital Course: Patient is a 69-year-old female who presented [facility] ED on 10/15/2024 with altered mentation and hypotension. Hospital course as noted below. Patient discharged to inpatient hospice on 10/19. 1. Adult failure to thrive ? Discussions with patient and family ongoing regarding goals of care during hospitalization. Discussed at length at the bedside on morning of 10/19. PEG tube placement was recommended but patient decided that she did not want to go through any more invasive procedures. Patient does have capacity at this time. On further discussion, patient decided she would like to pursue comfort care measures. Hospice evaluated and patient okay for discharge to inpatient hospice on 10/19. 2. Sepsis without shock secondary to acute cystitis ? Infectious disease followed. Patient presented with hypotension and altered mental status as well as significant leukocytosis. UA showed 500 leukocyte esterase, negative nitrites, greater than 100 WBCs, 4+ bacteria. CT abdomen pelvis with new fistulas found as noted below but no concerning urinary findings. Most likely infectious source is urinary. A good improvement blood pressure with 30 cc/kg of IV fluid resuscitation. Urine culture growing Proteus, E. coli and gram-negative rods. Linezolid discontinued on 10/18, discontinued meropenem on discharge. 3. Acute on chronic anemia ? Hemoglobin 7.4 on admit, dropped to 6.2 on hospital day 2. Baseline appears to be around 7. Suspect drop was primarily due to IV fluid resuscitation. Transfused 2 units of packed red blood cells on 10/16, repeat hemoglobin 9.2. No overt signs of bleeding noted. Monitor CBC daily. 4. Acute CVA ? Neurology following. Patient with new findings of left-sided upper extremity lower extremity weakness and difficulty with speaking on 10/16. CT brain without contrast showed findings suggestive of ischemic change involving the posterior right temporal and parietal lobes. MRI brain without contrast confirmed moderate zone of restricted diffusion consistent with acute early subacute infarct of the right central MCA distribution. Gave aspirin 300 mg on 10/16 and treating with baby aspirin and high intensity statin. PT/OT/ST/CM followed. Patient declined PEG tube and discharged to inpatient hospice as noted above. 5. New colo-ovarian/colo-uterian fistula ? CT abdomen pelvis on admit showed colo-ovarian/colo-uterine fistula with abnormal fistulous track adhesion of the proximal sigmoid colon connected to the right ovary which contains air and stool contents in continuity with left side of the uterus, no abscess or free air present in peritoneal space; second fistulous connection or adhesion also present at left posterior aspect of the uterus. These findings were discussed with our general surgery team on admission who noted patient would be better served at a larger facility. Was discussed with Ob-Bus Cleaner at [facility] who noted that these findings are likely not contributing to her sepsis and recommended that patient be treated here for sepsis with outpatient follow-up after discharge. Of note, discussed with patient and family here and given her poor functional status it is very unlikely she would be a surgical candidate. 6. Chronic heel wounds ? Follows with podiatry, had appointment with Dr. Amador on day of admission and heel wounds did not appear acutely infected. Continue wound dressings. 7. Chronic diarrhea ? Patient noted this has improved recently. Monitored while inpatient with no recurrence of diarrhea. 8. Mild creatinine elevation in setting of CKD stage IV, improved ? Creatinine 2.00 on admit, improved to 1.67 on hospital day 2 after IV fluid resuscitation. Baseline appears to be around 1.6. Patient did have worsening of creatinine up to 2.2 on 10/18 suspect due to n.p.o. status and dehydration. Creatinine was stable at 2.2 on discharge. 9. Suspected severe malnutrition ? Nutrition followed. 10. GERD ? Continue home PPI. Total clinical time spent by myself addressing the patient's medical issues, reviewing all the data, and collaborating with patient's care team: 35 minutes. Physical Exam Const alert and no apparent distress Constitutional Narrative: Elderly female, appears older than stated age, chronically ill-appearing, fatigued appearing, sitting up in bed fairly comfortably, mild difficulty with speaking but otherwise answering questions appropriately. Stable. General Appearance: cooperative HEENT normocephalic, head/scalp atraumatic, hearing grossly normal bilaterally, nasal mucous membranes and turbinates normal and moist oral mucous membranes Eyes PERRL, EOMs intact bilaterally and conjunctivae normal Chest inspection of chest normal Resp normal respiratory effort and no use of accessory muscles Resp Narrative: Breathing comfortably on room air at rest. Mild crackles noted in upper airways bilaterally, no wheezing noted. Stable. Cardio regular rate, regular rhythm, no murmurs and peripheral pulses 2+ throughout GI normal to inspection, nondistended, normoactive bowel sounds, soft to palpation, non-tender and non-distended Back/Spine normal ROM Extremity Extremity Narrative: Wrap noted on right foot for chronic wound. Prior left partial foot amputation noted. Neuro Neuro Narrative: Patient with flaccid left arm and left leg with no sensation in either extremity. No right-sided sensory changes. Stable. Weight / BMI Weight Weight: 52.8 kg Body Mass Index (BMI) 20.0 ABG / Lab / Microbiology Data 10/19/24 08:00 10/19/24 08:00 Microbiology: Microbiology 10/15/24 13:00 Urine, Catheterized Urine Culture - Final Proteus mirabilis Serratia liquefaciens group Escherichia coli 10/15/24 13:15 Blood Culture (Wb) - Left Wrist Blood Culture - Preliminary No growth in 48 hours. 10/15/24 12:40 Blood Culture (Wb) - Right Hand Blood Culture - Preliminary No growth in 48 hours. 10/15/24 23:28 Mucosa - Nasopharyngeal Respiratory Panel (PCR) - Final 10/15/24 23:28 Mucosa - Nasopharyngeal SARS-CoV-2, Influenza & RSV (PCR) - Final 10/15/24 13:00 Mucosa - Nose SARS-CoV-2, Influenza & RSV (PCR) - Final D/C Instructions Discharge Diet: No restrictions DC O2, CPAP, BIPAP Needs Home O2 Discharge instructions: No Meaningful Use Info Meaningful Use Meaningful Use Diagnoses (Choose all that apply): None applicable Ischemic Stroke Statin Dosing Therapy Reference: STATIN DOSE THERAPY REFERENCE: * Patients > 75 years receive moderate or high dose statin therapy. * Patients 75 years or YOUNGER should receive HIGH intensity statin dose unless contraindicated. You will be required to document reason for non-treatment if statin daily dose does not meet guidelines. HIGH DOSE STATIN THERAPY DAILY Atorvastatin > than or = to 40 mg Rosuvastatin > than or = to 20 mg Amlodipine + Atorvastatin > than or = to 2.5/40 mg Ezetimibe + Simvastatin 10/80 mg Simvastatin 80mg Discharge Plan Admission Admit Date/Time: 10/15/24 18:59 Primary Reason for Your Visit: confusion and low blood pressure Attending Provider: Ciaran Richard Primary Care Provider: Cody Billings Consulting Providers: Sara Horton; Rachid Benitez; Yoana Ospina; Yara Clifton; Angelica Dunn; Brittany Moreira NP; Janine Ludwig; Kentrell Iqbal; Venkat Jamil; Eugenio Wu; Amira Obrien; Leana Zavaleta; Luz Mcnulty; Hermann Leigh; Maria E Ahmadi; Rodolfo Loo; Jeffrey Hennessy; Hosea Horvath; Bernice Mckeon; Harshad Nicholas; Sosa Myers; Ashley Bowman; Sterling Gerard; Zheng Bustamante; Honey Thomson; Andrea Bill; Mary Carmen Hall; Deepika Angulo Discharge Orders/Prescriptions Prescriptions: Continued pantoprazole 40 mg Tablet,Delayed Release (Dr/Ec) 40 mg PO DAILY Culturelle 10 billion cell Capsule 1 cap PO DAILY acetaminophen 500 mg Tablet 1,000 mg PO Q8H PRN (Reason: Pain Score 1-5) 3 Days Qty: 0 0RF Rx Instructions: Not more than 3 g/day cephalexin 500 mg capsule 500 mg PO BID melatonin 3 mg tablet 3 mg PO QHS PRN (Reason: SLEEP ) Boost Breeze Nutritional 0.04-1.05 gram-kcal/mL liquid 120 ml PO TID Freeze It Relief 0.2-3.5 % gel 1 applic topical BID Patient Comments: APPLY TOPICALLY TO NECK, UPPER BACK, AND SHOULDERS TWICE DAILY albuterol sulfate [Ventolin HFA] 90 mcg/actuation Hfa Aerosol Inhaler 1 puff inhalation Q4H PRN (Reason: SHORTNESS OF BREATH) ondansetron 4 mg Tablet,Disintegrating 4 mg PO Q6H PRN (Reason: NAUSEA) Referrals / Follow Up: Cody Billings MD [Primary Care Provider] - Disposition Disposition (needs filled in before D/C Order can be placed): Hospice in Medical Facility Charges/Coding Visit Charges Inpatient E&M: 24384 Disch Hosp >30min
== END 2024-10-19 18:35 | disposition hospice, inpatient (51) | DRG 871 ==
LOC: ED 19:22 → ICU 20:04
PROVIDERS: Admitting Provider Internal Medicine; Emergency Provider Emergency Medicine; PCP Family Medicine; Visit Provider Hospitalist
DX: A41.51 Sepsis due to Escherichia coli [E. coli] (principal); G93.41 Metabolic encephalopathy; I63.511 Cerebral infarction due to unspecified occlusion or stenosis of right middle cerebral artery; J96.01 Acute respiratory failure with hypoxia; E43 Unspecified severe protein-calorie malnutrition; N18.4 Chronic kidney disease, stage 4 (severe); G81.04 Flaccid hemiplegia affecting left nondominant side; L97.422 Non-pressure chronic ulcer of left heel and midfoot with fat layer exposed; N17.9 Acute kidney failure, unspecified; N82.4 Other female intestinal-genital tract fistulae; N30.00 Acute cystitis without hematuria; R29.717 NIHSS score 17; Z66 Do not resuscitate; E11.22 Type 2 diabetes mellitus with diabetic chronic kidney disease; J44.9 Chronic obstructive pulmonary disease, unspecified; I34.1 Nonrheumatic mitral (valve) prolapse; D63.8 Anemia in other chronic diseases classified elsewhere; D32.0 Benign neoplasm of cerebral meninges; Z89.432 Acquired absence of left foot; E86.0 Dehydration; A41.59 Other Gram-negative sepsis; E11.621 Type 2 diabetes mellitus with foot ulcer; E11.42 Type 2 diabetes mellitus with diabetic polyneuropathy; E11.51 Type 2 diabetes mellitus with diabetic peripheral angiopathy without gangrene; E11.43 Type 2 diabetes mellitus with diabetic autonomic (poly)neuropathy; K31.84 Gastroparesis; I25.2 Old myocardial infarction; K21.9 Gastro-esophageal reflux disease without esophagitis; M47.812 Spondylosis without myelopathy or radiculopathy, cervical region; M47.816 Spondylosis without myelopathy or radiculopathy, lumbar region; I95.9 Hypotension, unspecified; K52.9 Noninfective gastroenteritis and colitis, unspecified; L97.512 Non-pressure chronic ulcer of other part of right foot with fat layer exposed; D64.89 Other specified anemias; Z53.29 Procedure and treatment not carried out because of patient's decision for other reasons; R47.1 Dysarthria and anarthria; R62.7 Adult failure to thrive; T50.3X5A Adverse effect of electrolytic, caloric and water-balance agents, initial encounter; R29.810 Facial weakness; Z86.718 Personal history of other venous thrombosis and embolism; Z87.19 Personal history of other diseases of the digestive system; Z79.899 Other long term (current) drug therapy; Z68.20 Body mass index [BMI] 20.0-20.9, adult; Z88.1 Allergy status to other antibiotic agents; Z88.0 Allergy status to penicillin; Z90.49 Acquired absence of other specified parts of digestive tract; Z87.440 Personal history of urinary (tract) infections
CPT/HCPCS: 36415; 36569; 70450; 70544; 70547; 70551; 71045; 74177; 74230; 80048; 80053; 80061; 81001; 82962; 83036; 83605; 83735; 85025; 85027; 85610; 85730; 86850; 86900; 86901; 86920; 86922; 87040; 87077; 87086; 87088; 87186; 87631; 87633; 92526; 92610; 92611; 93005; 93306; 94640; 94762; 97162; 97166; 97803; 99285; J2020; J2185; P9016; Q9957; Q9967; A4216; J0744; J2405